=== PATIENT | male | born 1980 | race Caucasian/White ===

== ENCOUNTER 2023-09-07 01:34 | Emergency (ER) | payer OTHER, SELFPAY ==
[2023-09-07 01:37] VITALS: BP 154/110; PULSE 100; RESP 16; TEMP 38.2; O2SAT 100
--- NOTE | 2023-09-07 01:47 | PC.NURSE ---
Pt presents to ER for HTN Pt states he had a surgery last Tuesday after a heart attack which he referred to as the maker Pt states he has been feeling fuzzy and since taking his BP at home and finding the diastolic number low, pt wants to be seen to make sure everything is okay Pt had the surgery done at [facility] Pt is febrile on triage
--- NOTE | 2023-09-07 02:03 | ED.GENADUL1 ---
HPI - General Adult General Chief complaint: Chest Pain Stated complaint: hypertension Time Seen by Provider: 09/07/23 01:59 Source: patient Mode of arrival: walk-in Limitations: no limitations History of Present Illness HPI narrative: past history of HTN. states admitted to [facility] last week for MD. Stent placed. Discharged home 08/31. Has history of chronic back pain and has nerve stimulator in place. [place] well today until tonight. Developed sensation of chills and noticed his BP was elevated. Wanted to get checked out and came in. No chest pain Related Data Home Medications Medication Instructions Recorded Confirmed aspirin 81 mg tablet,delayed mg 09/07/23 release atorvastatin 80 mg tablet mg 09/07/23 carvedilol 3.125 mg tablet mg 09/07/23 cyclobenzaprine 10 mg tablet mg 09/07/23 furosemide 20 mg tablet mg 09/07/23 gabapentin 300 mg capsule mg 09/07/23 losartan 50 mg tablet mg 09/07/23 oxycodone-acetaminophen 5 mg-325 tab 09/07/23 mg tablet ticagrelor 90 mg tablet (Brilinta) mg 09/07/23 Allergies Allergy/AdvReac Type Severity Reaction Status Date / Time No Known Drug Allergies Allergy Verified 09/07/23 01:43 Review of Systems ROS Status of ROS 10 or more systems reviewed and unremarkable except as noted in history and below Constitutional Reports: chills PFSH PFSH Social History Smoking status: Current every day smoker Exam Constitutional Vital Signs, click to edit/add: Last Vital Signs Temp 100.8 F H 09/07/23 01:37 Pulse 100 H 09/07/23 01:37 Resp 16 09/07/23 01:37 BP 154/110 H 09/07/23 01:37 Pulse Ox 100 09/07/23 01:37 O2 Del Method Room Air 09/07/23 01:37 Common normals: no apparent distress, average body habitus, oriented x3, no limitations, healthy appearing, alert and well nourished Eye Common normals: EOMs intact bilaterally and conjunctivae normal Respiratory Common normals: normal respiratory effort, no retractions, no use of accessory muscles and clear to auscultation bilaterally Cardio Common normals: regular rate, regular rhythm, S1 normal heart sound and S2 normal heart sound GI Common normals: Normal to inspection, nondistended, normoactive bowel sounds present, soft to palpation and non-tender Extremity Common normals: no joint enlargement Neuro Common normals: oriented x3, CN's II-XII intact bilaterally, moves all extremities, no focal motor deficits and no sensory deficits noted Psych Appearance: grossly normal Course Vital Signs Vital signs: Vital Signs Temperature 100.8 F H 09/07/23 01:37 Pulse Rate 100 H 09/07/23 01:37 Respiratory Rate 16 09/07/23 01:37 Blood Pressure 154/110 H 09/07/23 01:37 Pulse Oximetry 100 09/07/23 01:37 Oxygen Delivery Method Room Air 09/07/23 01:37 Temperature 100.8 F H 09/07/23 01:37 Pulse Rate 100 H 09/07/23 01:37 Respiratory Rate 16 09/07/23 01:37 Blood Pressure 154/110 H 09/07/23 01:37 Pulse Oximetry 100 09/07/23 01:37 Oxygen Delivery Method Room Air 09/07/23 01:37 Medical Decision Making MDM Narrative Medical decision making narrative: patient s/p STEMI last week s/p stent placement. doing well but tonight developed chills and fever workup initiated to include cxray, UA and labs. Troponin return elevated as expected. Plan was to repeat troponin to document that it was trending down. Additional labs were pending including UA. Cxray was clear. Patient became inpatient and when nursing went in the room to swab him for possible viral illness he was ready to leave and signed out AMA. [place] he was waiting too long. Patient left before I was able to talk to him Lab Data Labs: Lab Results 09/07/23 Range/Units 02:05 WBC 8.6 (4.0-11.0) 10^3/uL RBC 5.03 (4.70-6.10) 10^6/uL Hgb 14.3 (14.0-18.0) g/dL Hct 43.8 (42.0-54.0) % MCV 87.1 (80.0-94.0) fL MCH 28.4 (25.9-34.0) pg MCHC 32.6 (29.9-35.2) g/dL RDW 14.2 (11.0-15.0) % Plt Count 293 (150-450) 10^3/uL MPV 9.8 (9.5-13.5) fL Neut % (Auto) 78.8 H (43.0-75.0) % Lymph % (Auto) 12.9 L (20.5-60.0) % [place] % (Auto) 4.9 (1.7-12.0) % Eos % (Auto) 2.0 (0.9-7.0) % Baso % (Auto) 1.2 (0.2-2.0) % Neut # (Auto) 6.7 H (1.4-6.5) 10^3/uL Lymph # (Auto) 1.1 L (1.2-3.8) 10^3/uL [place] # (Auto) 0.4 (0.3-0.8) 10^3/uL Eos # (Auto) 0.2 (0.0-0.7) 10^3/uL Baso # (Auto) 0.1 (0.0-0.1) 10^3/uL Abs Immat Gran (auto) 0.02 (0.00-0.03) 10^3/uL Imm/Tot Granulo (auto) 0.2 (0.0-0.5) % Sodium 138 (136-145) mmol/L Potassium 3.9 (3.5-5.1) mmol/L Chloride 98 (98-107) mmol/L Carbon Dioxide 29.6 (21.0-32.0) mmol/L Anion Gap 14.3 BUN 15.0 (7.0-18.0) mg/dL Creatinine 1.31 H (0.70-1.30) mg/dL Est GFR ( Amer) >60 (>=60) Est GFR (Non-Af Amer) 59 L (>=60) BUN/Creatinine Ratio 11.5 Glucose 89 (74-106) mg/dL Calcium 9.3 (8.5-10.1) mg/dL Troponin I High Sens 301.6 H* (4.0-76.1) pg/mL Imaging Data Chest x-ray: Radiologist's impression: Date: 09/07/2023 02:20 Report Date: 09/07/2023 02:45 At the request of: EMBER ZAVALA Procedure: XR chest 2V EXAM: XR chest 2V HISTORY: chills COMPARISON: None. TECHNIQUE: 2 views of the chest were obtained. FINDINGS: Spinal neurostimulator leads overlie the mid thoracic spine. The cardiac silhouette is normal in size. The lungs are clear. There is no significant pneumothorax or pleural effusion. No acute osseous abnormality is seen. IMPRESSION: 1. No acute cardiopulmonary abnormality. Electronically authenticated by: Mely LOPEZ Date: 09/07/2023 02:45 Discharge Plan Discharge Chief Complaint: Chest Pain Clinical Impression: Fever Patient Disposition: Left Against Medical Advice Prescriptions / Home Meds: No Action losartan 50 mg tablet cyclobenzaprine 10 mg tablet atorvastatin 80 mg tablet aspirin 81 mg tablet,delayed release (DR/EC) carvedilol 3.125 mg tablet oxycodone-acetaminophen 5-325 mg tablet gabapentin 300 mg capsule furosemide 20 mg tablet Brilinta 90 mg tablet Stand Alone Forms: Portal Instructions Referrals: Physician,Non-Staff, MD [Primary Care Provider] - 1 week Discharge Date/Time: 09/07/23 03:52
--- NOTE | 2023-09-07 02:06 | XR_ITS ---
The [address] [address] Patient Name: DENISE ZELAYA MRN: [id number] date: 1980 Sex: M Assigned Patient Location: ER Current Patient Location: ER Accession/Order Number: [id number] Exam Date: 09/07/2023 02:20 Report Date: 09/07/2023 02:45 At the request of: EMBER ZAVALA Procedure: XR chest 2V EXAM: XR chest 2V HISTORY: chills COMPARISON: None. TECHNIQUE: 2 views of the chest were obtained. FINDINGS: Spinal neurostimulator leads overlie the mid thoracic spine. The cardiac silhouette is normal in size. The lungs are clear. There is no significant pneumothorax or pleural effusion. No acute osseous abnormality is seen. XR/XR chest 2V IMPRESSION: 1. No acute cardiopulmonary abnormality. Electronically authenticated by: Mely LOPEZ Date: 09/07/2023 02:45
--- NOTE | 2023-09-07 02:06 | ECG_ITS ---
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
[2023-09-07 02:18] LABS: Basophils Absolute Auto 0.1 10^3/uL (0.0-0.1); Basophils Percent Auto 1.2 % (0.2-2.0); Eosinophils Absolute Auto 0.2 10^3/uL (0.0-0.7); Hematocrit 43.8 % (42.0-54.0); Hemoglobin 14.3 g/dL (14.0-18.0); Immature Granulocytes Abs Auto 0.02 10^3/uL (0.00-0.03); Immature Granulocytes Pct Auto 0.2 % (0.0-0.5); Lymphocytes Absolute Auto 1.1 10^3/uL (1.2-3.8); Lymphocytes Percent Auto 12.9 % (20.5-60.0); Mean Corpuscular HGB Conc 32.6 g/dL (29.9-35.2); Mean Corpuscular Hemoglobin 28.4 pg (25.9-34.0); Mean Corpuscular Volume 87.1 fL (80.0-94.0); Mean Platelet Volume 9.8 fL (9.5-13.5); Monocytes Absolute Auto 0.4 10^3/uL (0.3-0.8); Monocytes Percent Auto 4.9 % (1.7-12.0); Neutrophils Absolute Auto 6.7 10^3/uL (1.4-6.5); Neutrophils Percent Auto 78.8 % (43.0-75.0); Platelet Count 293 10^3/uL (150-450); Red Blood Count 5.03 10^6/uL (4.70-6.10); Red Cell Distribution Width 14.2 % (11.0-15.0); White Blood Count 8.6 10^3/uL (4.0-11.0)
--- NOTE | 2023-09-07 02:19 | PC.NURSE ---
Patient states that he was having chest pains at home last Tuesday and called EMS. He was taken to [facility], told he was having an [place], that it was a maker. He was taken to surgery for a stent. He was discharged from the hospital on Tuesday. He started feeling unwell at home today, weak, and cold. He was also hypertensive at home. On arrival, he is febrile and hypertensive. EKG is done and handed off to Dr Ochoa. [facility] is contacted and asked to send a copy of the EKG from their facility also.
[2023-09-07 02:37] LABS: Anion Gap 14.3; BUN Creatinine Ratio 11.5; Calcium 9.3 mg/dL (8.5-10.1); Carbon Dioxide 29.6 mmol/L (21.0-32.0); Chloride 98 mmol/L (98-107); Estimated GFR (African America >60 (>=60); Estimated GFR (Non-African Ame 59 (>=60); Glucose 89 mg/dL (74-106); Potassium 3.9 mmol/L (3.5-5.1); Sodium 138 mmol/L (136-145)
[2023-09-07 02:44] LABS: Troponin I High Sensitivity 301.6 pg/mL (4.0-76.1)
== END 2023-09-07 03:52 | disposition left against medical advice (07) ==
PROVIDERS: Emergency Provider Internal Medicine; Family Provider Internal Medicine
DX: R50.9 Fever, unspecified (principal); I21.4 Non-ST elevation (NSTEMI) myocardial infarction; I10 Essential (primary) hypertension; Z95.5 Presence of coronary angioplasty implant and graft; Z53.29 Procedure and treatment not carried out because of patient's decision for other reasons; Z79.82 Long term (current) use of aspirin; Z79.899 Other long term (current) drug therapy; F17.210 Nicotine dependence, cigarettes, uncomplicated
CPT/HCPCS: 0202U; 36415; 71046; 80048; 84484; 85025; 93005; 99285

== ENCOUNTER 2024-05-18 16:33 | Outpatient (OUT) | payer OTHER, SELFPAY ==
--- OUTSIDE RECORDS SUMMARY | 2024-05-18 16:45 | XMS_ITS | CCD ---
Author Organization [facility] Care Team Providers Care Welt Cutter Name Role Phone LAUREL LOERA) Admitting Un available LUZ MARIALAUREL THOMPSON () Attending Un available LAUREL LOERA () Referring Un available EVNATALI BECERRA (PA) Attending Unavaila KATIE Ye Referring Unavailab le NATALI SCHNEIDER (PA) Referring Unavaila ble NATALI SCHNEIDER (PA) Referring Unavaila ble NATALI SCHNEIDER (PA) Attending Unavaila ble NATALI SCHNEIDER (PA) Referring Unavaila ble KARISSA NOGUERA Admitting Unavailable KARISSA NOGUERA Attending Unavailable KARISSA NOGUERA Referring Unavailable NATALI SCHNEIDER (PA) Attending Unavaila LAUREL Zamudio) Attending Un available NATALI SCHNEIDER (ALBERTO) Referring Unavaila ble LAUREL LOERA) Referring Un available LUZ MARIALAUREL THOMPSON) Referring Un available LUZ MARIALAUREL THOMPSON) Referring Un available LUZ MARIALAUREL THOMPSON) Attending Un available LAUREL LOERA) Referring Un available LAUREL LOERA () Attending Un available LAUREL LOERA) Referring Un available KATIE SALGUERO Primary Care Physician Shaquille Remy Unavailable DO Katie Salguero Primary Care Provider MD Shaquille Remy Attending Provider [facility]ovany Valle [facility] Primary Care Unavailable ELISHA ., DR CHAUDHRY Admitting Unavailable ELISHA ., DR CHAUDHRY Attending Unavailable ELISHA ., DR CHAUDHRY Consulting Unavailable VASCARO, DR WILSON Consulting Unavailable Vascaro, Dr. Katie Vera Primary Care Thien Roberson Attending Thien Roberson Attending Thien Roberson Referring Thien Roberson Admitting Unava iljs Salguero, Dr. Katie Vera Primary Care Thien Roberson Admitting Thien Roberson Attending Thien Roberson Referring Unava ilable Judithk, Dr. Katie Vera [facility] Care Thien Roberson Attending Jared Salguero, Dr. Katie Vera [facility] Katie Basilio [facility] Care Unavailable Shaquille Remy Attending Unavailable Shaquille Remy Admitting Unavailable Katie Salguero [facility] Unavailable Shaquille Remy Attending Unavailable Shaquille Remy Admitting Unavailable DO Katie Salguero [facility] Provider [phone] MD Shaquille Remy Attending Provider KATIE SALGUERO Attending Unavailable KATIE SALGUERO Referring Unavailable MABLE STEWARD Referring Unava ilable KATIE SALGUERO Attending Unavailable KATIE SALGUERO Referring Unavailable ROZ, YUERONG Referring Unavailable ROZ, YUANTNG Referring Unavailable ROZTATYANANG Attending Unavailable KATIE SALGUERO Referring Unavailable KATIE SALGUERO Attending Unavailable KATIE SALGUERO Referring Unavailable KARISSA CAMPBELL Attending Unavailable ROZ, YUANTNG Referring Unavailable VASKATIE MIRANDA Attending Unavailable MABLE STEWARD Attending UnaMD Trey Cheatham Attending Unavailable Denise Welch Attending Unavaila ble NONE, XXXX Referring Unavailable Denise Welch Attending Unavaila ble NONE, XXXX Referring Unavailable Durga Thompson Admitting Unavailable Durga Thompson Attending Unavailable Frank SERRANO Consulting Unavailable Frank SERRANO Consulting Unavailable Frank SERRANO Consulting Unavailable Dora RHODES Admitting Unavailable [facility]io, XXXX Consulting Unavailable Durga Thompson Attending Unavailable Frank SERRANO Consulting Unavailable Frank SERRANO Consulting Unavailable Frank SERRANO Consulting Unavailable Ezequiel Vogel Attending Unavailable SHAQUILLE REMY Referring Unavailable Abhi Guerra Attending Unavailable NONE, XXXX Referring Unavailable RAQUELCARLOS WINNAMAD Referring Unavailable ISADORA TOWNSEND Attending Unavailable ISADORA TOWNSEND Attending Unavailable Allergies Allergy Classification Reported Allergen(s) Allergy Type Date of Onset Reaction(s) Facility (20 sources) montelukast Drug Allergy 2 nightmares, Nightmare [facility] (1 source) montelukast Drug Allergy 2 [facility] Repository (1 source[facility] ([facility]) No Known Medication Allergies; Translations: [No Known Medication Allergies] Propensity to adverse reactions (disorder) [facility] Repository Medications Current Medications Medication Drug Class(es) Dates Sig (Normalized) Sig (Original) acetaminophen 325 mg / oxyCODONE hydrochloride 5 mg oral tablet (20 sources) Opioid Agonist Start: 04-18-2024 take 1 tablet by mouth three times daily Oxycodone-Acetami nophen Active 1 TAB PO Three times daily April 18, 2024 Start: 03-09-2022 take 1 tablet by aziza th three times daily as needed Percocet 325 mg-5 mg Tab TAKE 1 TABLET BY MOUTH NEEDED UP TO 3 TIMES DAILY Start Date: 03/09/22 Status: Ordered Start: 02-11-2022 Percocet 5 mg- 325 mg oral tablet Refill(s) 0 Start Date: 02/11/22 Status: Ordered Start: 10-30-2019 End: 04-18-2024 take 1 tablet by mouth three times daily Oxycodone-Acetaminophen Discontinued 1 TAB PO Three times daily March 21, 2024 April 18, 2024 11:40am Albuterol (8 sources) beta2-Adrenergic Agonist Start: 02-11-2022 albut mercedes Refills(s) 0 Start Date: 02/11/22 Status: Ordered amitriptyline hydrochloride 10 mg oral tablet (20 sources) Tricyclic Antidepressant Start: 05-10-2024 amitr iptyline 10 mg Tab Refills(s) 0 Start Date: 05/10/24 Status: Ordered Start: 02-11-2022 amitriptyline Refills(s) 0 Start Date: 02/11/22 Status: Ordered Start: 07-24-2020 take 10 mg by mouth once daily Amitriptyline Active 10 MG PO Daily July 24, 2020 12:00am Start: 06-28-2017 take 25 mg by mouth once daily Amitriptyline Active 25 MG PO Daily June 28, 2017 12:00am aspirin 81 mg delayed release oral tablet (6 sources) Platelet Aggregation Inhibitor, Nonsteroidal Anti-inflammatory Drug Start: 08-31-2023 take 1 tablet by mouth once daily aspirin 81 mg Oral EC Tab 81 mg = 1 tab(s), Oral, Daily, # 30 tab(s), Refills(s) 0, Pharmacy: [facility]/pharmacy #[id number], 175, cm, 09/29/23 15:16:00 EST, Height/Length Dosing, 73.7, kg, 09/29/23 15:16:00 EST, Weight Dosing Start Date: 09/30/23 Status: Ordered atenolol 100 mg oral tablet (5 sources) beta-Adrenergic Alfonzo Start: 02-11-2022 take 1 tablet by mouth once daily atenolol 100 mg Tab 100 mg = 1 tab(s), Oral, Daily Start Date: 02/11/22 Status: Ordered atorvastatin 80 mg oral tablet (6 sources) HMG-CoA Reductase Inhibitor Start: 11-11-2023 take 1 tablet by mouth once daily atorvastatin 80 mg Tab 80 mg = 1 tab(s), Oral, Daily, # 30 tab(s), Refills(s) 6, Pharmacy: [facility]/pharmacy #[id number], 175, cm, 09/29/23 15:16:00 EST, Height/Length Dosing, 73.7, kg, 09/29/23 15:16:00 EST, Weight Dosing Start Date: 11/11/23 Status: Ordered Start: 08-31-2023 take 1 tablet by aziza th once daily atorvastatin 80 mg Tab 80 mg = 1 tab(s), Oral, Daily, # 30 tab(s), Refills(s) 0, Pharmacy: [facility]/pharmacy #[id number], 175, cm, 08/29/23 16:51:00 EST, Height/Length Dosing, 83.7, kg, 08/29/23 16:51:00 EST, Weight Dosing Start Date: 08/31/23 Status: Ordered carvedilol 6.25 mg oral tablet (10 sources) alpha-Adrenergic Alfonzo, beta-Adrenergic Alfonzo Start: 09-29-2023 take 1 tablet by mouth twice daily carvedilol 6.25 mg Tab 6.25 mg = 1 tab(s), Oral, BID, # 60 tab(s), Refills(s) 6, [id number], cm, 09/29/23 15:16:00 EST, Height/Length Dosing, 73.7, kg, 09/29/23 15:16:00 EST, Weight Dosing Start Date: 11/11/23 Status: Ordered Start: 08-31-2023 take 1 tablet by aziza twice daily carvedilol 3.125 mg Tab 3.125 mg = 1 tab(s), Oral, BID, # 60 tab(s), Refills(s) 0, [id number] 175, cm, 08/29/23 16:51:00 EST, Height/Length Dosing, 83.7, kg, 08/29/23 16:51:00 EST, Weight Dosing Start Date: 08/31/23 Status: Ordered cloNIDine hydrochloride 0.1 mg oral tablet (5 sources) Central alpha-2 Adrenergic Agonist Start: 03-09-2022 take 1 tablet by mouth twice daily cloNIDine 0.1 mg tab TAKE 1 TABLET BY MOUTH TWICE A DAY Start Date: 03/09/22 Status: Ordered Start: 02-11-2022 take 1 tablet by aziza twice daily cloNIDine 0.1 mg tab 0.1 mg = 1 tab(s), Oral, BID Start Date: 02/11/22 Status: Ordered clopidogrel 75 mg oral tablet (2 sources) [id number] Platelet Inhibitor Start: 12-14-2023 take 1 tablet by mouth once daily clopidogrel 75 mg Tab 75 mg = 1 tab(s), Oral, Daily, # 30 tab(s), Refills(s) 3, Pharmacy: [id number], 175, cm, 12/09/23 1:00:00 EST, Height/Length Dosing, 75.7, kg, 12/09/23 1:00:00 EST, Weight Dosing Start Date: 12/14/23 Status: Ordered cyclobenzaprine hydrochloride 10 mg oral tablet (20 sources) Muscle Relaxant Start: 03-09-2022 cyclobenzaprine 10 mg Tab See Instructions, 1 tab(s) Oral, # 30 tab(s), Refills(s) 0, [id number] 175, cm, 09/29/23 15:16:00 EST, Height/Length Dosing, 73.7, kg, 09/29/23 15:16:00 EST, Weight Dosing Start Date: 09/30/23 Status: Ordered Start: 07-24-2020 End: 04-20-2021 take 10 mg by mouth three times daily Cyclobenzaprine Discontinued 10 MG PO Three times daily July 24, 2020 12:00am April 20, 2021 1:56pm furosemide 20 mg oral tablet (6 sources) Loop Diuretic Start: 11-11-2023 take 1 tablet by mouth once daily Lasix 20 mg Tab 20 mg = 1 tab(s), Oral, Daily, # 30 tab(s), Refills(s) 6, [id number] 175, cm, 09/29/23 15:16:00 EST, Height/Length Dosing, 73.7, kg, 09/29/23 15:16:00 EST, Weight Dosing Start Date: 11/11/23 Status: Ordered Start: 08-31-2023 take 1 tablet by aziza th once daily Lasix 20 mg Tab 20 mg = 1 tab(s), Oral, Daily, # 30 tab(s), Refills(s) 0, [id number] 175, cm, 08/29/23 16:51:00 EST, Height/Length Dosing, 83.7, kg, 08/29/23 16:51:00 EST, Weight Dosing Start Date: 08/31/23 Status: Ordered gabapentin 300 mg oral capsule (20 sources) Anti-epileptic Agent Start: 03-09-2022 take 3 capsules by mouth three times daily gabapentin 300 mg Cap TAKE 3 CAPSULES BY MOUTH 3 TIMES A DAY Start Date: 03/09/22 Status: Ordered Start: 02-11-2022 gabapentin Ref ills(s) 0 Start Date: 02/11/22 Status: Ordered Start: 06-28-2017 take 900 mg by mouth three times daily Gabapentin Active 900 MG PO Three times daily June 28, 2017 12:00am take 3 capsules by m outh three times daily Gabapentin 300 MG TAKE 3 CAPSULES BY MOUTH 3 TIMES DAILY for 30 Active take 1 tablet by aziza th three times daily Gabapentin 900 mg 1 tablet Orally Three times a day for 30 days Active 24 hr isosorbide mononitrate 30 mg extended release oral tablet (5 sources) Nitrate Vasodilator Start: 09-29-2023 take 1 tablet by mouth once daily in the morning isosorbide mononitrate 30 mg ER Tab 30 mg = 1 tab(s), Oral, qAM, # 30 tab(s), Refills(s) 3, Pharmacy: [facility]/pharmacy #[id number], 175, cm, 09/29/23 15:16:00 EST, Height/Length Dosing, 73.7, kg, 09/29/23 15:16:00 EST, Weight Dosing Start Date: 09/29/23 Status: Ordered lisinopril 10 mg oral tablet (20 sources) Angiotensin Converting Enzyme Inhibitor Start: 02-11-2022 take 1 tablet by mouth once daily lisinopril 10 mg Tab TAKE 1 TABLET BY MOUTH EVERY DAY FOR 90 DAYS Start Date: 03/09/22 Status: Ordered losartan potassium 25 mg oral tablet (6 sources) Angiotensin 2 Receptor Alfonzo Start: 12-09-2023 take 1 tablet by mouth twice daily losartan 25 mg Tab 25 mg = 1 tab(s), Oral, BID, # 60 tab(s), Refills(s) 0, Pharmacy: [facility]/pharmacy #[id number], 175, cm, 12/09/23 1:00:00 EST, Height/Length Dosing, 75.7, kg, 12/09/23 1:00:00 EST, Weight Dosing Start Date: 12/09/23 Status: Ordered Start: 11-11-2023 losartan 50 mg Tab 25 mg = 0.5 tab(s), Oral, Daily, # 15 tab(s), Refills(s) 6, Pharmacy: [facility]/pharmacy #[id number], 175, cm, 09/29/23 15:16:00 EST, Height/Length Dosing, 73.7, kg, 09/29/23 15:16:00 EST, Weight Dosing Start Date: 11/11/23 Status: Ordered Start: 08-31-2023 losartan 50 mg Tab 25 mg = 0.5 tab(s), Oral, Daily, # 30 tab(s), Refills(s) 0, Pharmacy: [facility]/pharmacy #[id number], 175, cm, 08/29/23 16:51:00 EST, Height/Length Dosing, 83.7, kg, 08/29/23 16:51:00 EST, Weight Dosing Start Date: 08/31/23 Status: Ordered nitroglycerin 0.4 mg sublingual tablet (1 source) Nitrate Vasodilator Start: 05-10-2024 nitroglycerin 0.4 mg sublingual Tab Refills(s) 0 Start Date: 05/10/24 Status: Ordered 12 hr ranolazine 500 mg extended release oral tablet (5 sources) Anti-anginal Start: 09-29-2023 take 1 tablet by mouth twice daily Ranexa 500 mg Tab-ER 500 mg = 1 tab(s), Oral, BID, # 60 tab(s), Refills(s) 3, Pharmacy: [facility]/pharmacy #[id number], 175, cm, 09/29/23 15:16:00 EST, Height/Length Dosing, 73.7, kg, 09/29/23 15:16:00 EST, Weight Dosing Start Date: 09/29/23 Status: Ordered rosuvastatin calcium 20 mg oral tablet (4 sources) HMG-CoA Reductase Inhibitor Start: 03-09-2022 take 1 tablet by mouth once daily rosuvastatin 20 mg Tab TAKE 1 TABLET BY MOUTH EVERY DAY FOR 30 DAYS Start Date: 03/09/22 Status: Ordered ticagrelor 90 mg oral tablet (4 sources) Start: 11-11-2023 take 1 tablet by mouth twice daily ticagrelor 90 mg oral tablet 90 mg = 1 tab(s), Oral, BID, # 60 tab(s), Refills(s) 6, Pharmacy: [facility]/pharmacy #[id number], 175, cm, 09/29/23 15:16:00 EST, Height/Length Dosing, 73.7, kg, 09/29/23 15:16:00 EST, Weight Dosing Start Date: 11/11/23 Status: Ordered Start: 08-31-2023 take 1 tablet by aziza th twice daily ticagrelor 90 mg oral tablet 90 mg = 1 tab(s), Oral, BID, # 60 tab(s), Refills(s) 0, Pharmacy: [facility]/pharmacy #[id number], 175, cm, 08/29/23 16:51:00 EST, Height/Length Dosing, 83.7, kg, 08/29/23 16:51:00 EST, Weight Dosing Start Date: 08/31/23 Status: Ordered tiZANidine 4 mg oral tablet (20 sources) Central alpha-2 Adrenergic Agonist Start: 07-24-2020 take 4 mg by mouth twice daily Tizanidine Active 4 MG PO Twice daily July 24, 2020 12:00am work excuse (6 sources) Start: 08-31-2023 work excuse wo rk excuse, 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, Print Requisition, Supply Start Date: 08/31/23 Status: Ordered Completed/Discontinued Medications Medication Drug Class(es) Dates Sig (Normalized) Sig (Original) DULoxetine 30 mg delayed release oral capsule (1 source) Serotonin and Norepinephrine Reuptake Inhibitor Start: 05-10-2024 End: 08-08-2024 take 2 tablets by mouth once daily duloxetine 30 mg oral delayed release capsule 60 mg = 2 cap(s), Oral, Daily, take one tablet in the am for the first week then take 2 tablets ongoing, X 30 day(s), # 60 cap(s), Refills(s) 2, Pharmacy: [id number], 175.3, cm, 05/10/24 13:57:00 EDT, Height/Length Dosing, 77.5, kg, 05/10/24 13:57:00 EDT, Weight Dosing Start Date: 05/10/24 Stop Date: 08/08/24 Status: Ordered methylPREDNISolone (20 sources) Corticosteroid Start: 09-28-2017 Depo-Medrol 40 mg Sep, Start: 08-05-2015 Depo-Medrol 80 mg Jul, Start: 06-12-2015 Depo-Medrol 80 mg Jun, 80 mg Start: 04-22-2015 Depo-Medrol 80 mg Apr, 80 mg Start: 01-15-2015 Depo-Medrol 80 mg Jan, 80 mg Triamcinolone (20 sources) Corticosteroid Start: 05-12-2016 Kenalog -40 mg May, 40 mg Problems Active Problems Problem Classification Problem Date Documented Da te Episodic/Chronic Acute myocardial infarction (4 sources) ST elevation (STEMI) myocardial infarction of unspecified site; Translations: [Myocardial infarction] Onset: 08-29-2023 Chronic Anxiety disorders (20 sources) Generalized anxiety disorder; Translations: [Generalized anxiety disorder] Chronic Asthma (20 sources) Exacerbation of asthma; Translations: [Unspecified asthma with (acute) exacerbation] Onset: 01-25-2023 Chronic Calculus of urinary tract (20 sources) Kidney stone; Translations: [Calculus of kidney] Onset: 01-19-2023 Episodic Complication of device; implant or graft (2 sources) Pain due to nervous system prosthetic devices, implants and grafts, initial encounter; Translations: [Pain due to nervous system prosth dev/grft, init] Onset: 01-19-2023 Episodic Complications of surgical procedures or medical care (5 sources) Infection following a procedure, subsequent encounter; Translations: [Disruption of external operation (surgical) wound, not elsewhere classified, initial encounter] Onset: 01-17-2018 Episodic Congestive heart failure; nonhypertensive (3 sources) Congestive heart failure 12-09-2023 Chronic Coronary atherosclerosis and other heart disease (4 sources) Coronary atherosclerosis; Translations: [Atherosclerotic heart disease of tejon coronary artery without angina pectoris] Onset: 12-09-2023 Chronic Disorders of lipid metabolism (20 sources) Hyperlipidemia; Translations: [Hyperlipidemia, unspecified] Onset: 08-29-2023 Chronic Essential hypertension (6 sources) Essential (primary) hypertension; Translations: [Essential hypertension] Onset: 06-08-2018 Chronic Headache; including migraine (20 sources) Migraine; Translations: [Other migraine, not intractable, without status migrainosus] Chronic Hypertension with complications and secondary hypertension (4 sources) Hypertensive emergency; Translations: [Hypertensive emergency] Onset: 12-09-2023 Chronic Mood disorders (20 sources) Mild recurrent major depression; Translations: [Major depressive disorder, recurrent episode, mild] Chronic Nonspecific chest pain (3 sources) Chest pain; Translations: [Chest pain, unspecified] Onset: 12-09-2023 Episodic Nutritional deficiencies (20 sources) Vitamin D deficiency; Translations: [Vitamin D deficiency, unspecified] Chronic Osteoarthritis (1 source) Unspecified osteoarthritis, unspecified site; Translations: [Unspecified osteoarthritis, unspecified site] Onset: 01-25-2023 Chronic Other aftercare (2 sources) Other intermediate (current) drug therapy; Translations: [OTH LONG-TERM CURRENT DRUG THERAPY] Onset: 12-29-2022 Episodic Other aftercare (1 source) Long-term current use of drug therapy; Translations: [Other intermediate (current) drug therapy] Onset: 12-09-2023 Episodic Other connective tissue disease (20 sources) History of lumbar fusion; Translations: [Arthrodesis status] Episodic Other connective tissue disease (1 source) Arthrodesis status Episodic Other lower respiratory disease (2 sources) Other forms of dyspnea; Translations: [Other forms of dyspnea] Onset: 04-25-2024 Episodic Other nervous system disorders (20 sources) Chronic pain; Translations: [Other chronic pain] Onset: 08-29-2023 Chronic Other nervous system disorders (20 sources) Other chronic pain; Translations: [Other chronic pain] Onset: 07-16-2021 Resolved: 06-10-2022 Chronic Other nervous system disorders (1 source) Chronic pain syndrome; Translations: [Chronic pain syndrome] Onset: 12-14-2022 Chronic Other nervous system disorders (1 source) Other chronic pain; Translations: [Other chronic pain] Onset: 08-17-2022 Chronic Other nervous system disorders (1 source) Polyneuropathy; Translations: [Polyneuropathy, unspecified] Onset: 08-29-2023 Chronic Other non-traumatic joint disorders (20 sources) Knee pain; Translations: [Pain in left knee] Episodic Other upper respiratory disease (20 sources) Allergic rhinitis; Translations: [Allergic rhinitis, unspecified] Chronic Other upper respiratory infections (20 sources) Sinusitis; Translations: [Chronic sinusitis, unspecified] Chronic Residual codes; unclassified (2 sources) Tobacco use; Translations: [Tobacco use] Onset: 06-08-2018 Episodic Residual codes; unclassified (20 sources) Postprocedural state finding; Translations: [Other specified postprocedural states] Episodic Residual codes; unclassified (1 source) Tobacco user; Translations: [Tobacco use] Onset: 08-29-2023 Episodic Spondylosis; intervertebral disc disorders; other back problems (20 sources) Other intervertebral disc displacement, lumbar region; Translations: [Other intervertebral disc degeneration, lumbar region] Onset: 02-21-2018 Resolved: 06-10-2022 Chronic Spondylosis; intervertebral disc disorders; other back problems (20 sources) Radiculopathy, lumbar region; Translations: [Low back pain] Onset: 01-17-2018 Episodic Substance-related disorders (20 sources) Smoker; Translations: [Tobacco dependence syndrome] Onset: 12-29-2022 03-09-2022 Chronic Comment on above: Added secondary to d ocumentation in Social History. Added secondary to d ocumentation in Social History. Substance-related disorders (20 sources) Continuous opioid dependence; Translations: [Opioid use, unspecified, uncomplicated] Onset: 07-16-2021 Resolved: 06-10-2022 Episodic Unclassified (1 source) lumbar radicupathy Onset: 02-21-2018 Past or Other Problems Problem Classification Problem Date Documented Date Episodic/Chronic Other nervous system disorders (1 source) Other abnormalities of gait and mobility; Translations: [Other abnormalities of gait and mobility] Onset: 01-17-2018 Episodic Unclassified (1 source) Other low back pain M54.59 Onset: 01-15-2022 Resolved: 01-15-2022 Unclassified (3 sources) Stent, device (physical object) 12-09-2023 Results Test Name Value Interpretation Reference Range Facility Office Visiton 05-04-2024 Follow-up visit [id number] [place] [facility] P 1980 Date Provider Department Center 05/04/2024 ISADORA BAUMANN SP [facility] Family History Problem Relation Age of Onset Heart attack Mother 56 Heart attack Maternal Grandfather Family Status - Relation Status Age at Mother Maternal Grandfather Level of Service:41889 [place] OFFICE/OUTPATIENT ESTABLISHED MOD MDM 30 MIN [facility] Orders Onlyon 05-04-2024 Orders Only [id number] [place] Lantigua P 1980 Date Provider Department Center 05/04/2024 JAVIER SANDERS SP [facility] Family History Problem Relation Age of Onset Heart attack Mother 56 Heart attack Maternal Grandfather Family Status - Relation Status Age at Mother Maternal Grandfather Normal [facility] Office Visiton 04-06-2024 Follow-up visit [id number] [place] Lantigua P 1980 [facility] Provider Department Center 04/06/2024 3848-ISADORA TOWNSEND BH CARD [facility] Family History Problem Relation Age of Onset Heart attack Mother 56 Heart attack Maternal Grandfather Family Status - Relation Status Age at Mother Maternal Grandfather Level of Service:94733 [place] OFFICE/OUTPATIENT NEW MODERATE MDM 45 MINUTES Normal [facility] Referrals Officeon 4 Referrals Office [id number] [phone] [id number] TIFF Normal [facility] MR THORACIC SPINE WO CONTRAS Ton 01-24-2024 MR THORACIC SPINE WO CONTRAST EXAMINATION: MR THORACIC SPINE WO CONTRAST HISTORY: Neck pain radiating into the left arm. Left axilla pain/burning. COMPARISON: Chest radiograph February 25, 2022 TECHNIQUE: Multiplanar multisequence MRI of the thoracic spine was performed Without contrast. FINDINGS: The thoracic spinal cord is normal in signal and morphology. No focal cord signal abnormality. The spinal cord stimulator is present. The alignment of the thoracic spine is anatomic. The vertebral body heights are well maintained. No aggressive bone marrow signal abnormality. No significant disc bulge, spinal canal stenosis or neuroforaminal stenosis. Visualized paravertebral soft tissues are grossly unremarkable. IMPRESSION: No significant disc bulge. No high-grade neural foraminal or spinal canal stenosis. Normal signal and morphology of the thoracic spinal cord. ELECTRONICALLY SIGNED BY: Katie John, DO Normal Not Available MR CERVICAL SPINE WO CONTRAS Ton 2024 MR CERVICAL SPINE WO CONTRAST EXAM: MR CERVICAL SPINE WO CONTRAST History: Neck pain with radiculopathy Technique: Multiplanar multisequence MRI of the cervical spine was performed without contrast. Comparison: Cervical spine radiographs December 14, 2023 Findings: Craniocervical junction is within normal limits. No cervical cord signal abnormality is identified. No aggressive bone marrow signal abnormality. Straightening of the cervical lordosis. Mild intervertebral disc height loss at C5-6. C2-C3: No significant disc bulge, spinal canal or neuroforaminal stenosis. C3-C4: Small disc bulge. Mild right neural foraminal stenosis. No spinal canal stenosis. C4-C5: Small disc bulge with tiny superimposed central disc protrusion. No neural foraminal or spinal canal stenosis. C5-C6: Small disc bulge. Significant bilateral uncovertebral hypertrophy. Mild facet arthropathy. Severe bilateral neural foraminal stenosis. No spinal canal stenosis. C6-C7: Small disc bulge. Mild uncovertebral hypertrophy. Moderate to severe bilateral neural foraminal stenosis. No spinal canal stenosis. C7-T1: No significant disc bulge, spinal canal or neuroforaminal stenosis. Visualized paravertebral soft tissues are grossly unremarkable. IMPRESSION: Degenerative changes of the cervical spine as detailed. ELECTRONICALLY SIGNED BY: Katie John, DO Normal Not Available XR CERVICAL SPINE 2-3 VIEWSo n 12-14-2023 XR CERVICAL SPINE 2-3 VIEWS XR CERVICAL SPINE 2-3 VIEWS : 12/14/2023 12:09 PM CLINICAL HISTORY: paresethesia, neck pain, shoulder pain. COMPARISON: None available. TECHNIQUE: ROUTINE FINDINGS: Straightening of the spine is seen. The vertebral body heights are maintained. Mild intervertebral disc space narrowing is seen at C5-6. The prevertebral soft tissues are unremarkable. There is no evidence for acute fracture or dislocation. IMPRESSION: STRAIGHTENING OF THE SPINE MAY REFLECT SPASM. VERY MILD DEGENERATIVE CHANGES ARE SEEN. ELECTRONICALLY SIGNED BY: Keven Puri, DO Normal Not Available Comment on above: Order Comment: With flexion and [facility] Anion gap [Moles/Vol] 12 mmol/L Normal 6-16 [facility] Comment on above: Performed By: #### 2 955763, 1270189, [id number], [id number], [id number] ####[facility] [address] [place] [address] Calcium [Mass/Vol] 9.4 mg/dL Normal 8.9-11.1 [facility] Comment on above: Performed By: #### 2 801001, 2094136, 21259565, 49380982, 53227493 ####[facility] [address] [place] [address] Chloride [Moles/Vol] 105 mmol/L Normal 101-111 [facility] Comment on above: Performed By: #### 2 343918, 0575994, 91009081, 60069113, [id number] ####[facility] [address] [place] [address] CO2 [Moles/Vol] 26 mmol/L Normal 21-31 [facility] Comment on above: Performed By: #### 2 495250, 8833941, 48546994, 42867934, 15551936 ####[facility] [address] [place] [address] Creatinine [Mass/Vol] 1.6 mg/dL High 0.5-1.3 [facility] Comment on above: Performed By: #### 2 091436, 5562124, 99972844, 51599878, 75185450 ####[facility] [address] [place] [address] Glucose [Mass/Vol] 110 mg/dL Normal 55-199 [facility] Comment on above: Performed By: #### 2 929946, 2080498, 10011820, 10528203, 35034584 ####[facility] [address] [place] [address] Potassium [Moles/Vol] 4.1 mmol/L Normal 3.5-5.3 [facility] Comment on above: Performed By: #### 2 218877, 1208688, 76009837, 40808962, 28204987 ####[facility] [address] [place] [address] Sodium [Moles/Vol] 139 mmol/L Normal 135-145 [facility] Comment on above: Performed By: #### 2 649540, 4924089, 93030931, 23691792, 54006108 ####[facility] [address] [place] [address] Urea nitrogen [Mass/Vol] 15 mg/dL Normal 5-21 [facility] Comment on above: Performed By: #### 2 802112, 1911278, 05673796, 22830156, 51627070 ####[facility] [address] [place] [address] Urea nitrogen/Creatinine [Mass ratio] 9 No Units Low 10-20 [facility] Comment on above: Performed By: #### 2 914962, 8898661, 72066962, 15216273, 38778915 ####[address] [place] [address] CBC w/ Auto Diffon 4 Basophils/100 WBC (Bld) 1.0 % Normal 0.0-2.0 [facility] Comment on above: Performed By: #### 2 682622, 8084330, 30176164, 03566176, 82706846 ####[address] [address] Basophils/Leukocytes Auto (Bld) [Pure # fraction] 0.1 E9/L Normal 0.0-0.2 [facility] Comment on above: Performed By: #### 2 277341, 2255232, 58728125, 98173559, 56016082 ####[address] [address] Eosinophils (Bld) [#/Vol] 0.6 E9/L High 0.0-0.5 [facility] Comment on above: Performed By: #### 2 843300, 3752852, 88606454, 05914812, 97703644 ####[address] [address] Eosinophils/100 WBC (Bld) 5.8 % Normal 0.0-8.0 [facility] Comment on above: Performed By: #### 2 161653, 8912400, 32351955, 20528920, 54448201 ####[address] [address] Erythrocyte distribution width (RBC) [Ratio] 16.4 % High 10.9-14.2 [facility] Comment on above: Performed By: #### 2 037742, 0885455, 20238591, 13798540, 37405580 ####[address] [address] Hematocrit (Bld) [Volume fraction] 39.8 % Normal 37.7-49.0 [facility] Comment on above: Performed By: #### 2 499815, 8143778, 59283436, 09643136, 85362323 ####[facility] [address] [place] [address] Hemoglobin (Bld) [Mass/Vol] 13.8 g/dL Normal 13.5-17.5 [facility] Comment on above: Performed By: #### 2 993017, 3512223, 01352808, 06638368, 44319963 ####[facility] [address] [place] [address] Lymphocytes (Bld) [#/Vol] 3.1 E9/L Normal 1.0-4.0 [facility] Comment on above: Performed By: #### 2 807409, 1398210, 03975111, 47591008, 52079925 ####[address] [address] Lymphocytes/100 WBC (Bld) 28.6 % Normal 14.0-50.0 [facility] Comment on above: Performed By: #### 2 292024, 0754798, 76195505, 15253994, 05200215 ####[facility] [address] [place] [address] MCH (RBC) [Entitic mass] 29.9 pg Normal 27.0-34.0 [facility] Comment on above: Performed By: #### 2 499354, 6679205, 54938945, 09232081, 94683911 ####[facility] [address] [place] [address] MCHC (RBC) [Mass/Vol] 34.7 g/dL Normal 31.4-36.0 [facility] Comment on above: Performed By: #### 2 898778, 5451019, 23661527, 25219606, 05242669 ####[address] [place] [address] MCV (RBC) [Entitic vol] 86.2 fL Normal 80.0-100.0 [facility] Comment on above: Performed By: #### 2 095493, 1007049, 07183739, 03330950, 74010119 ####[facility] [address] [place] [address] Monocytes (Bld) [#/Vol] 0.6 E9/L Normal 0.2-1.0 [facility] Comment on above: Performed By: #### 2 342514, 5526743, 88141984, 13280757, 27244642 ####[facility] [address] [place] [address] Neutrophils (Bld) [#/Vol] 6.3 E9/L Normal 2.0-7.5 [facility] Comment on above: Performed By: #### 2 575083, 2399217, 05211235, 02656255, 02627468 ####[address] [address] Neutrophils/100 WBC (Bld) 59.1 % Normal 36.0-75.0 [facility] Comment on above: Performed By: #### 2 951301, 4968019, 63739964, 51733808, 03024420 ####[facility] [address] [place] [address] Platelet mean volume (Bld) [Entitic vol] 8.2 fL Normal 6.4-10.8 [facility] Comment on above: Performed By: #### 2 252261, 2616317, 40254756, 55075903, 32517962 ####[facility] [address] [place] [address] Platelets (Bld) [#/Vol] 308.0 E9/L Normal 150.0-500.0 [facility] Comment on above: Performed By: #### 2 063000, 5713297, 96628904, 46408807, 70863767 ####[facility] [address] [place] [address] RBC (Bld) [#/Vol] 4.6 E12/L Normal 4.3-5.9 [facility] Comment on above: Performed By: #### 2 209889, 8014249, 41861972, 62719400, 76414055 ####[facility] [address] [place] [address] WBC corrected for nucl RBC Auto (Bld) [#/Vol] 10.7 E9/L Normal 4.0-11.0 [facility] Comment on above: Performed By: #### 2 466396, 4735986, 14549230, 23338785, 78023407 ####[facility] [address] [place] [address] CHEMISTRYOrdered By: SYSTEM SYSTEM on 12-09-2023 Troponin 10.80 pg/mL Low 15.90 - 38.40 pg/mL [facility] Comment on above: Interpretive Data: T he 95% CI (Confidence Interval) PPV (Positive Predictive Value) for myocardial infarction in females is 38 pg/mL, in males 51 pg/mL. The results should be used in conjunction with clinical conditions of myocardial infarction. (Access High Sensitivity Troponin I Instructions For Use, Admitly, May 2018) Troponin 11.80 pg/mL Low 15.90 - 38.40 pg/mL [facility] Comment on above: Interpretive Data: T he 95% CI (Confidence Interval) PPV (Positive Predictive Value) for myocardial infarction in females is 38 pg/mL, in males 51 pg/mL. The results should be used in conjunction with clinical conditions of myocardial infarction. (Access High Sensitivity Troponin I Instructions For Use, [facility], May 2018) Cholesterol [Mass/Vol] 171 mg/dL Normal 120 - 200 mg/dL [facility] Cholesterol in HDL [Mass/Vol] 28 mg/dL Invalid Interpretation Code [facility] Comment on above: Result Comment: '>= 60 LOW RISK' '<= 40 HIGH RISK' Cholesterol in LDL [Mass/Vol] 111 mg/dL Normal <=129mg/dL [facility] Cholesterol in VLDL [Mass/Vol] 66 mg/dL High 7 - 40 mg/dL [facility] Triglyceride [Mass/Vol] 328 mg/dL High <=149mg/dL [facility] Troponin 14.30 pg/mL Low 15.90 - 38.40 pg/mL [facility] Comment on above: Interpretive Data: T he 95% CI (Confidence Interval) PPV (Positive Predictive Value) for myocardial infarction in females is 38 pg/mL, in males 51 pg/mL. The results should be used in conjunction with clinical conditions of myocardial infarction. (Access High Sensitivity Troponin I Instructions For Use, Martina Mansfield, May 2018) Anion gap [Moles/Vol] 12 mmol/L Normal 6 - 16 mEq/L [facility] Calcium [Mass/Vol] 9.4 mg/dL Normal 8.9 - 11. 1 mg/dL [facility] Chloride [Moles/Vol] 105 mmol/L Normal 101 - 1 11 mmol/L [facility] CO2 [Moles/Vol] 26 mmol/L Normal 21 - 31 mmol/L [facility] Creatinine [Mass/Vol] 1.6 mg/dL High 0.5 - 1.3 mg/dL [facility] eGFR 54 mL/min/1.73 m2 Low >=59mL/min / 1.73 m2 [facility] Glucose [Mass/Vol] 110 mg/dL Normal 55 - 199 mg/dL [facility] Potassium [Moles/Vol] 4.1 mmol/L Normal 3.5 - 5.3 mmol/L [facility] Sodium [Moles/Vol] 139 mmol/L Normal 135 - 145 mmol/L [facility] Urea nitrogen [Mass/Vol] 15 mg/dL Normal 5 - 21 mg/dL [facility] Urea nitrogen/Creatinine [Mass ratio] 9 mg/mg Low 10 - 20 [facility] CHEMISTRYOrdered By: Nathalia Block on 12-09-2023 HbA1c (Bld) [Mass fraction] 6.1 % High <=5.9% [facility] ChemAutoSS COAGULATIONOrdered By: Isi Longoria on 12-09-2023 aPTT Coag (PPP) [Time] 34.7 s Normal 25.1 - 36.5 second(s) [facility] Auto Coag Comment on above: Interpretive Data: P arameter 15 days - 4 weeks 1 - 5 months 6 - 11 months 1 - 5 years 6 - 10 years 11 - 17 years PTT Mean: 35.4 (27.6-45.6) Mean: 33.5 (24.8-40.7) Mean: 32.4 (25.1-40.7) Mean: 31.6 (24.0-39.2) Mean: 31.6 (26.9-38.7) Mean: 31.0 (24.6-38.4) Pediatric Reference ranges were obtained from a study by sd Melendrez alAnh prepared from 1437 samples obtained at 7 different centers using the same coagulation reagent and instrumentation as [facility]. Currently there are no coagulation studies available worldwide for children to 14 days, and no normal ranges. Heparin therapeutic range (represented by Anti-Factor Xa activity of 0.2 - 0.4 U/mL) corresponds to PTT of 56.6 - 109.0 sec. INR Coag (PPP) [Relative time] 0.97 {INR} Invalid Interpretation Code [facility] Comment on above: Interpretive Data: I NR results are specifically intended to assess patients stabilized on long-term Anticoagulation therapy suggested INR s Less Intensive Anticoagulation 2.0 3.0 Conventional Range 3.0 4.5 PT Coag (PPP) [Time] 10.9 s Normal 9.4 - 1 2.5 second(s) [facility] Comment on above: Interpretive Data: 1 5 days - 4 weeks 1 - 5 months 6 -11 months 1 5 years 6 10 years 11 -17 years Mean: 11.2 (9.5 12.6) Mean: 11.0 (9.7 12.8) Mean: 11.0 (9.8 13.0) Mean: 11.3 (9.9 13.4) Mean: 11.7 (10.0 14.6) Mean: 11.8 (10.0 - 14.1) Pediatric Reference ranges were obtained from a study by Osman Arambula et al. prepared from 1437 samples obtained at 7 different centers using the same coagulation reagent and instrumentation as [facility]. Currently there are no coagulation studies available worldwide for children to 14 days, and no normal ranges. Consent for Treatmenton Consent for Treatment [id number] IFF Normal [facility] Consultation Noteon 12-09-19 Consultation Note Chief Complaint Pt. reports high blood pressure that past few days and is now associatted with chest pain. Reason for Consultation Chest pain, hypertensive urgency History of Present Illness Patient is a very pleasant 43-year-old currently smoking nondiabetic gentleman with a history of hypertension, hypercholesterolemia, coronary artery disease status post acute anterior wall myocardial infarction on 08/29/2023 as outlined below. Patient been doing well up into the last day or so when he is developed 8 out of 10 chest pressure similar to his previous angina when he had his myocardial infarction. Patient states that he has been medically compliant with his aspirin and Brilinta. He denies any illicit drug use. He describes this as 7?8 out of 10 chest pressure radiating to his left arm with associated nausea and shortness of breath but no vomiting. When this did not improve he sought medical attention at [facility] emergency room. In the emergency room an EKG was performed which showed normal sinus rhythm, no acute changes. PVC. Initial blood pressure in the emergency room was 203/121. His symptoms resolved with sublingual nitroglycerin. His troponins are negative x 2. Patient's catheterization report is as below: LMT: Large caliber left main trunk with 30% stenosis and bifurcation LAD: Proximal ectasia and large caliber with 100% mid stenosis, reaches the apex and beyond to the distal inferior wall. LCx: Proximal ectasia and large caliber with diffuse mild to moderate disease and 50% distal stenosis, reaches the lateral wall. Codominant RCA: Medium caliber with 50% mid stenosis, codominant, reaches the basal inferior wall. Hemodynamics: Elevated LVEDP at 20 to 23 mmHg with no gradient across the aortic valve. Left ventriculography: Abnormal LV systolic function, EF 40-45 %, apical wall motion abnormalities and normal chamber size with no mitral regurgitation. PCI note: Success PCI mid LAD 100% stenosed CATIE 0 flow reduced to 0% residual CATIE-3 flow after plantation of a Xience 3.5/23 postdilated 3.5 NC at high pressure. Conclusions: Anterolateral STEMI due to plaque rupture and acute IL of the mid LAD, status post primary PCI with MARLY x1. CAD: DAPT, beta-alfonzo, statin, risk factor modification. Importance of antiplatelet compliance was emphasized including risk of stent thrombosis or . The patient understands as well as his accompanying family member/friend that the patient may have stent thrombosis or heart attack and the patient agrees. I myself have specifically counseled the patient regarding stent thrombosis risk including and the patient will additionally be counseled by the [employer] Nurse team and in follow-up. [1] Subsequent echocardiogram after his myocardial infarction on 08/30/2023 is as below: (08/30/2023 10:50 EST Echo Transthoracic Complete) Interpretation Summary No comparison study is available. Ejection Fraction = 40-45%. There is apical anterior wall akinesis There is mid anterior wall severe hypokinesis Grade I diastolic dysfunction, (abnormal relaxation pattern). Right ventricular systolic pressure is 27 mmHg. [2] Review of Systems Constitutional: no fever, no sweats, no weakness Skin: no rash, no lesions, nobruising/petechiae ENMT: no sore throat, no congestion, no hoarseness Respiratory: no shortness of breath, no cough, no orthopnea, no wheezing Cardiovascular: no chest pain, no palpitations, no edema Gastrointestinal: no nausea, no vomiting, no diarrhea, no GI bleeding Genitourinary: no anuria/oliguria no hematuria Musculoskeletal: no back pain, no trauma Neurologic: no headache, no dizziness, no numbness, no weakness Psychiatric: no sleeping problems, no irritability, no anxiety/depression. Heme/Lymph: no bleeding tendency, no bruising tendency Allergy/Immunologic: no recurrent infections, no impaired immunity Additional ROS info: Except as noted in the above Review of Systems and in the History of Present Illness all other systems have been reviewed and are negative or noncontributory. Physical Exam Vitals & Measurements T: 36.4 ?C(Oral) TMIN: 36.4 ?C(Oral) TMAX: 36.7 ?C(Oral) HR: 65(Monitored) RR: 18 BP: 142/101 SpO2: 98% HT: 175.26 cm WT: 78 kg General: alert, no acute distress Skin: warm, dry intact Head: atraumatic, normocephalic Neck: Trachea midline, no JVD, no bruit Eye: normal conjunctiva, sclera clear ENMT: oral mucosa moist Cardiovascular: regular rate and rhythm, nomurmur normal peripheral perfusion Respiratory: Lungs CTA, respirations non labored Chest wall: no deformity. Gastrointestinal: soft, non distended, no tenderness, no guarding. Back: No tenderness, Normal ROM, Normal alignment. Extremities: no edema, no deformity, no trauma Neurological: oriented x 4, LOC appropriate for agesensation equal & normal bilaterally, speech normal Psychiatric: cooperative, affect appropriate for age, normal judgement, normal psychiatric thoughts. Assessment (more content not included)... Normal [facility] Comment on above: Result Comment: Elec tronically Signed By: ZACH RODNEY, Frank Westbrook\.br\Date and Time Signed: 12/09/23 08:13 EST Discharge Instructionson Discharge Instructions [id number] IFF Normal [facility] Discharge Note-Nursingon Discharge Note-Nursing DENISE LANTIGUA :1980 Visit Date:12/09/2023 Inpatient Discharge Instructions Your Care Team Admitting Physician - Dora RHODES DO Consulting Physician - [facility] Cardio, XXXX ZACH RODNEY, Frank Westbrook Reason for Your Visit Pt. reports high blood pressure that past few days and is now associatted with chest pain. Your Diagnosis Chest pain 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 Hypertensive emergency Smoker Chronic back pain On deep vein thrombosis (DVT) prophylaxis Chest pain Shortness of breath Tests Performed BMP -- Results Pending -- CBC w/ Auto Diff -- Results Pending -- Echo Transthoracic Complete XR Chest Single View Please visit your patient portal for your results or contact your primary care physician. This Is Your Medications List [facility] Prescription (work excuse) acetaminophen-oxycodone (Percocet 325 mg-5 mg Tab) acetaminophen-oxycodone (Percocet 5 mg-325 mg oral tablet) aspirin (aspirin 81 mg Oral EC Tab) atorvastatin (atorvastatin 80 mg Tab) carvedilol (carvedilol 6.25 mg Tab) carvedilol (carvedilol 6.25 mg Tab) cyclobenzaprine (cyclobenzaprine 10 mg Tab) cyclobenzaprine (cyclobenzaprine 10 mg Tab) furosemide (Lasix 20 mg Tab) gabapentin (gabapentin 300 mg Cap) isosorbide mononitrate (isosorbide mononitrate 30 mg ER Tab) losartan (losartan 25 mg Tab) ranolazine (Ranexa 500 mg Tab-ER) ticagrelor (ticagrelor 90 mg oral tablet) [Image Removed: STOP]Stop taking these medications albuterol Procedure History PCI - Percutaneous coronary intervention (08/29/2023), Discectomy (10/10/2017), Discectomy (11/10/2016), Discectomy (10/10/2015). Discharge Vitals Temperature (Oral) 36.6 ?C Heart Rate (Monitored) 64 Respiratory Rate 18 Blood Pressure 97/63 Height 175.26 cm Weight 78 kg BMI 24.27 What to do next Instructions From Your Doctor Event Name Event Result Pending Diagnostic Test Results None Pharmacy Information [facility] Discharge Instructions Please return to ER if symptoms change or worsen. Please take medication as prescribed. Please monitor blood pressure. Please follow-up with cardiology New Follow Up Appointments after Discharge Follow Up with KATIE SALGUERO When: 12/14/2023 10:30 AM EST Where: [address] [place] [address]- Business (1) Follow Up with Rebekah RODNEY, Denise Valdez When: Within 1 to 2 weeks Comments: Call for followup appointment Call physician if symptoms worsen Where: [address] [place] [address]- Business (1) Medications What How Much When Instructions Next Dose Changed losartan (losartan 25 mg Tab) 1 Tablets By Mouth 2 times a day Pickup at [facility]/pharmacy #[id number] 12/08 @ 9 PM Unchanged acetaminophen-oxycodone (Percocet 325 mg-5 mg Tab) TAKE 1 TABLET BY MOUTH NEEDED UP TO 3 TIMES DAILY NEEDED FOR PAIN Unchanged acetaminophen-oxycodone (Percocet 5 mg-325 mg oral tablet) DUPLICATE ENTRY Unchanged aspirin (aspirin 81 mg Oral EC Tab) 1 Tablets By Mouth Every day 32 @ 9 AM Unchanged atorvastatin (atorvastatin 80 mg Tab) 1 Tablets By Mouth Every day 2 @ 9 AM Unchanged carvedilol (carvedilol 6.25 mg Tab) 1 Tablets By Mouth 2 times a day 12/08 @ 9 PM Unchanged carvedilol (carvedilol 6.25 mg Tab) TWICE PER DAY 3 @ 9 PM Unchanged cyclobenzaprine (cyclobenzaprine 10 mg Tab) See instructions 1 tab(s) Oral NEEDED FOR SPASMS Unchanged cyclobenzaprine (cyclobenzaprine 10 mg Tab) TAKE 1 TABLET BY MOUTH THREE TIMES A DAY NEEDED DUPLICATE ENTRY Unchanged furosemide (Lasix 20 mg Tab) 1 Tablets By Mouth Every day 12/09 @ 9 AM Unchanged gabapentin (gabapentin 300 mg Cap) TAKE 3 CAPSULES BY MOUTH 3 TIMES A DAY 12/08 @ 9 PM Unchanged isosorbide mononitrate (isosorbide mononitrate 30 mg ER Tab) 1 Tablets By Mouth Once a day (in the morning) 12/09 @ 9 AM Unchanged Misc Prescription (work excuse) 0 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 N/A Unchanged ranolazine (Ranexa 500 mg Tab-ER) 1 Tablets By Mouth 2 times a day 12/09 @ 9 AM Unchanged ticagrelor (ticagrelor 90 mg oral tablet) 1 Tablets By Mouth 2 times a day 12/08 @ 9 PM Pharmacy Information [facility]/pharmacy #[id number]: [address], [place] [id number] [phone] What When Comments Stop Taking albuterol Test Results CBC BMP WBC: 10.7 E9/L (12/09/23 01:05:00) Glucose Lvl: 110 mg/dL (12/09/23 01:05:00) RBC: 4.6 E12/L (12/09/23:05:00) BUN: 15 mg/dL (12/09/23 01:05:00) HGB: 13.8 gm/dL (12/09/23 01:05:00) Creatinine: 1.6 mg/dL High (12/09/23:05:00) Hct: 39.8 % (12/09/23 01:05:00) BUN/Creat Ratio: 9 Low (12/09/23 01:05:00) MCV: 86.2 fL (12/09/23 01:05:00) Sodium Lvl: 139 mmol/L (12/09/23 01:05:00) MCH: 29.9 pg (12/09/23 01:05:00) Potassium Lvl: 4.1 mmol/L (12/09/23 01:05:00) MCHC: 34.7 gm/dL (12/09/23 01:05:00) Chloride: 105 mmol/L (12/09/23 01:05:00) RDW: 16.4 % High (12/09/23 01:05:00) (more content not included)... Normal [facility] ED Clinical Summaryon 2023 ED Clinical Summary (Inserted Image. Aida ble to display) [address] [address] ED Clinical Summary Person Information [facility]: [facility] Age[facility] 43 Years : 1980 Sex: Male Language: Cape Verdean PCP: KATIE SALGUERO DO Marital Status: Single Visit Id: Visit Reason: Shortness of breath; Chest pain; HIGH BP - CHEST PAIN/ LEFT ARM PAIN Speciality: Acuity: 2 Enc Type: Observation Med Service: Emergency Arrival: 12/09/2023 00:52:27 Discharge: LOS: 000 01:43 Checkin: 12/09/2023 00:52:27 Checkout: 12/09/2023 02:35:47 Dispo Type: Admitted as IP to this [facility] EVENTS: Event Name Event Status Request Date/Time Start Date/Time Complete Date/Time Arrive Complete 12/09/2023 00:52:27 12/09/2023 00:52:27 12/09/2023 00:52:27 Document Home Meds Request 12/09/2023 00:52:27 Triage Complete 12/09/2023 00:52:27 12/09/2023 01:00:15 12/09/2023 01:00:15 Dr Exam Complete 12/09/2023 00:55:04 12/09/2023 00:55:04 12/09/2023 00:55:04 Registration Complete 12/09/2023 00:55:04 12/09/2023 01:00:07 12/09/2023 01:08:27 EKG Complete 12/09/2023 00:55:25 12/09/2023 00:58:33 Bed Assign Complete 12/09/2023 01:00:07 12/09/2023 01:00:07 12/09/2023 01:00:07 RN Exam Complete 12/09/2023 01:00:07 12/09/2023 01:05:40 12/09/2023 01:05:40 Isolation Screening Request 12/09/2023 01:00:16 Pending Labs Request 12/09/2023 01:03:34 Lab Complete 12/09/2023 01:03:34 12/09/2023 01:47:45 Meds Admin Complete 12/09/2023 01:03:34 12/09/2023 01:27:03 Patient Care Request 12/09/2023 01:03:34 RT Request 12/09/2023 01:03:34 X-Ray Complete 12/09/2023 01:03:34 12/09/2023 01:12:39 12/09/2023 01:13:22 Reg Complete Request 12/09/2023 01:08:27 Reg Bed Request Complete 12/09/2023 01:08:27 12/09/2023 01:08:27 12/09/2023 01:08:27 Pending Labs Complete 12/09/2023 01:13:06 12/09/2023 01:13:06 12/09/2023 01:47:45 Lab Complete 12/09/2023 01:13:06 12/09/2023 01:13:06 12/09/2023 01:47:45 Wet Read Request 12/09/2023 01:13:22 Bed Request Request 12/09/2023 02:05:45 Reg Bed Request Complete 12/09/2023 02:05:45 12/09/2023 02:10:10 12/09/2023 02:10:10 Admit Request 12/09/2023 02:05:45 Patient Care Request 12/09/2023 02:10:11 Patient Care Request 12/09/2023 02:10:11 Patient Care Request 12/09/2023 02:10:12 Patient Care Request 12/09/2023 02:10:12 ADDRESS: [address] [place] [phone] PHYS DOC NOTES: MEDICAL INFORMATION: Prescriptions Given: Medications to Continue with No Changes Other Medications acetaminophen-oxycodone (Percocet 325 mg-5 mg Tab) TAKE 1 TABLET BY MOUTH NEEDED UP TO 3 TIMES DAILY. acetaminophen-oxycodone (Percocet 5 mg-325 mg oral tablet) albuterol aspirin (aspirin 81 mg Oral EC Tab) 1 Tablets By Mouth every day. Refills: 0. atorvastatin (atorvastatin 80 mg Tab) 1 Tablets By Mouth every day. Refills: 6. carvedilol (carvedilol 6.25 mg Tab) 1 Tablets By Mouth 2 times a day. Refills: 6. carvedilol (carvedilol 6.25 mg Tab) cyclobenzaprine (cyclobenzaprine 10 mg Tab) 1 tab(s) Oral. Refills: 0. cyclobenzaprine (cyclobenzaprine 10 mg Tab) TAKE 1 TABLET BY MOUTH THREE TIMES A DAY NEEDED. furosemide (Lasix 20 mg Tab) 1 Tablets By Mouth every day. Refills: 6. gabapentin (gabapentin 300 mg Cap) TAKE 3 CAPSULES BY MOUTH 3 TIMES A DAY. isosorbide mononitrate (isosorbide mononitrate 30 mg ER Tab) 1 Tablets By Mouth once a day (in the morning). Refills: 3. losartan (losartan 50 mg Tab) 0.5 Tablets By Mouth every day. Refills: 6. Misc Prescription (work excuse) 0. 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 Refills: 0. ranolazine (Ranexa 500 mg Tab-ER) 1 Tablets By Mouth 2 times a day. Refills: 3. ticagrelor (ticagrelor 90 mg oral tablet) 1 Tablets By Mouth 2 times a day. Refills: 6. PATIENT EDUCATION INFORMATION: Instructions: Follow up: DIAGNOSIS: Chest pain; Hypertensive emergency Normal [facility] ED Note-Physicianon 12-09-19 ED Note-Physician Basic Information Time Seen: Valentin Warner DO 12/09/2023 00:55 Chief Complaint Pt. reports high blood pressure that past few days and is now associatted with chest pain. History of Present Illness HPI: Patient is a 43-year-old male with past medical history of of [place] with stent, hypertension, hyperlipidemia, CHF who presents the ED from home for chest pain and elevated blood pressure. Patient states that over the past couple of days he has noticed that his blood pressure has been abnormally elevated at home. He states that he had some intermittent left-sided chest pain over the past couple of days but since 1300 yesterday it has become constant. The pain is in his left chest and radiates down his left arm. He does have associated shortness of breath and some mild nausea. He reports that he is taking all his prescribed blood pressure medications today. ROS: Pertinent review of systems conducted and is negative except as noted above. Physical exam: General: nontoxic appearing and in no distress HEENT: Mucous membranes moist Neuro: awake and alert Neck: supple, trachea midline Card: Heart regular rate and rhythm no murmur Resp: Lungs clear to auscultation no wheeze or rhonchi Abd: Soft and nondistended. No tenderness to palpation with no rebound or guarding. Ext: No gross deformity or edema Physical Exam Vitals & Measurements T: 36.4 ?C(Oral) HR: 79(Peripheral) RR: 19 BP: 203/121 SpO2: 99% HT: 175 cm WT: 75.7 kg BMI: 24.72 Medical Decision Making MEDICAL DECISION MAKING Number and Complexity of Problems Differential Diagnosis: [] [facility] Data External documents reviewed: N/A My EKG interpretation: Noted in chart if applicable My CT interpretation: N/A My X-ray interpretation: Noted in chart if applicable My Ultrasound interpretation: N/A Decision rules/scores evaluated: Heart Score for Major Cardiac Event History: Example factors for history - pattern of chest pain, onset, duration, relation with exercise, stress or cold, localization, concominant symptoms. reaction to sublingual nitrates, [X] Highly suspicious +2 [] Moderately suspicious +1 [] Slightly suspicious 0 EKG: [] Significant ST-Depression +2 [X] Non specific repolarization disturbance +1 [] Normal 0 Age: [] >= 65 +2 [X] 45-65 + 1 [] <45 0 Risk Factors: (HLD, HTN, DM, Cigarette Smoking, Pos Family Hx, Obesity) [X] >3 risk factors or hx of atheroslerotic disease + 2 [] 1-2 risk factors + 1 [] No risk factors known 0 Troponin: [] >= 3X normal + 2 [] 1-3X normal + 1 [X] <= Normal 0 [] 0-3 Points 0.9 - 1.7% risk of major adverse cardiac event in 6 weeks [X] 4-6 Points 12-16.6% risk of major adverse cardiac event in 6 weeks [] 7-10 Points 50-65% risk of major adverse cardiac event in 6 weeks [] 0-3 Points with 2 sets of negative cardiac markers <1% risk of major adverse cardiac event in 30 days. Discussed with: N/A Treatment and Disposition ED Course: On arrival to ED patient is nontoxic-appearing and in no distress. He is noted to be significantly hypertensive on arrival. Cardiac workup was initiated. EKG shows some slight ST elevation, compared to his prior this has significantly improved as his previous 1 was from when he was diagnosed with a STEMI. Patient was given aspirin as well as nitroglycerin here in the ED. Chest x-ray shows no acute process. His initial troponin is within normal limits. He does have a bump in his creatinine compared to his previous. After the ED nitroglycerin and aspirin the patient's pain significantly improved. His blood pressure also improved. With his significant cardiac history and very concerning story I do feel he would benefit from further cardiac evaluation. Case was discussed with the hospitalist on-call who agreed admit the patient for further medical management. Shared decision making: As above Code status: N/A Assessment/Plan Chest pain (R07.9: Chest pain, unspecified) Hypertensive emergency (I16.1: Hypertensive emergency) Orders: aspirin, 162 mg = 2 tab(s), Tab-Chew, Oral, Once, Stop date 12/09/23 1:03:00 EST, STAT, Start date 12/09/23 1:03:00 EST, 12/09/23 1:03:00 EST nitroglycerin, 0.4 mg = 1 tab(s), Tab, SubLingual, q5min PRN Chest pain for 3 dose(s), Stop date Limited # of times, STAT, Start date 12/09/23 1:03:00 EST, Hold for SBP < 110, 12/09/23 1:03:00 EST Basic Metabolic Panel CBC w/ Auto Diff ECG 12 Lead Adult ED Cardiac Monitoring eGFR Oxygen Saturation Oxygen Therapy PT & PTT Saline Lock Insert Troponin 0 Hr. Troponin 3 Hr. Troponin 6 Hr. Troponin 9 Hr. XR Chest Single View Medications Administered Given aspirin 81 mg Chew Tab, 162 mg, Oral nitroglycerin 0.4 mg sublingual Tab, 0.4 mg, SubLingual nitroglycerin 0.4 mg sublingual Tab, 0. (more content not included)... Normal [facility] Comment on above: Result Comment: Elec tronically Signed By: Valentin Warner DO\.br\Date and Time Signed: 12/09/23 02:05 EST ED Patient Education Noteon 12-09-2023 ED Patient Education Note Normal [facility] ED Patient Summaryon 024 ED Patient Summary (Inserted Image. Aida ble to display) [place] [id number] Patient Discharge Instructions Person Information Name: DENISE LANTIGUA Age: 43 Years Arrival Date: 12/09/2023 00:52:27 Discharge Diagnosis: Chest pain; Hypertensive emergency Primary Care Physician: KATIE SALGUERO DO Provider Information Primary Provider: Valentin Warner DO [employer]:None The exam and treatment you received in the Emergency Department were for an urgent problem and are not intended as complete care. It is important that you follow up with a doctor, nurse practitioner, or physician?s per diem physical therapist assistant for ongoing care. If your symptoms become worse or you do not improve as expected and you are unable to reach your usual health care provider, you should return to the Emergency Department. We are available 24 hours a day. DENISE LANTIGUA has been given the following list of patient education materials, prescriptions and follow-up instructions: Follow-up Instructions: In the event that this physician does not participate in your insurance network, please consult with your insurance company to find a nearby participating provider. Patient Education Materials: A MESSAGE TO ALL PATIENTS REGARDING OPIOIDS PRESCRIPTION OPIOIDS: WHAT YOU NEED TO KNOW Prescription opioids can be used to help relieve aculzkxt-ga-xkgkrq pain and are often prescribed following a surgery or injury, or for certain health conditions. These medications can be an important part of the treatment but also come with serious risks. It is important to work with your healthcare provider to make sure you are getting the safest, most effective care. WHAT ARE THE RISKS AND SIDE EFFECTS OF OPIOID USE? Prescription opioids carry serious risks of addiction and overdose, especially with prolonged use. An opioid overdose, often marked by slowed breathing, can cause sudden . The use of prescription opioids can have a number of side effects as well, even when taken as directed: ? Tolerance?meaning you might need to take more of the medication for the same pain relief ? Physical dependence?meaning you have symptoms of withdrawal when a medication is stopped ? Increased sensitivity to pain ? Constipation ? Nausea, vomiting, and dry mouth ? Sleepiness and dizziness ? Confusion ? Depression ? Low levels of testosterone that can result in lower sex drive, energy, and strength ? Itching and sweating RISKS ARE GREATER WITH: ? History of drug misuse, substance use disorder, or overdose ? Mental health conditions (such as depression or anxiety) ? Sleep apnea ? Older age (65 years and older) ? Avoid alcohol while taking prescription opioids. Also, unless specifically advised by your health care provider, medications to avoid include: ? Benzodiazepines (such as Xanax or Valium) ? Muscle relaxants (such as Soma or Flexeril) ? Hypnotics (such as Ambien or Lunesta) ? Other prescription opioids KNOW YOUR OPTIONS Talk to your health care provider about ways to manage your pain that don?t involve prescription opioids. Some of these options may actually work better and have fewer risks and side effects. Options may include: ? Pain relievers such as acetaminophen, ibuprofen, and naproxen ? Some medication that are also used for depression or seizures ? Physical therapy and exercise ? Cognitive behavioral therapy, a psychological, goal-directed approach, in which patients learn how to modify physical, behavioral, and emotional triggers of pain and stress. IF YOU ARE PRESCRIBED OPIOIDS FOR PAIN: ? Never take opioids in greater amounts or more often than prescribed. ? Follow up with your primary health care provider. o Work together to create a plan on how to manage your pain. o Talk about ways to help manage your pain that don?t involve prescription opioids. o Talk about any and all concerns and side effects. ? Help prevent misuse and abuse o Never sell or share prescription opioids. o Never use another person?s prescription opioids. ? Store prescription opioids in a secure place and out of reach of others (this may include visitors, children, friends, and family). ? Safely dispose of unused prescription opioids: Find your community drug take-back program or your pharmacy mail-back program, or flush them down the toilet, following guidance from the Food and Drug Administration (www.fda.gov/Drugs/Reso urcesForYou). ? Visit www.cdc.gov/drugoverdos e to learn about the risks of opioids abuse and overdose. ? If you believe you may be struggling with addiction, tell your health career technical supervisor and ask for guidance or call [facility]S National Helpline at 3-587-369-ZXQI. n Source: US Department of Health and Human Services/Center for Disease Control & Prevention [facility] Medications Given: Medication Dose Route asp (more content not included)... Normal [facility] HEMATOLOGYOrdered By: SYSTEM SYSTEM on 12-09-2023 Basophils/100 WBC (Bld) 1.0 % Normal 0.0 - 2.0 % Remisol Heme Basophils/Leukocytes Auto (Bld) [Pure # fraction] 0.1 E9/L Normal 0.0 - 0.2 E9/L Remisol Heme Eosinophils (Bld) [#/Vol] 0.6 E9/L High 0.0 - 0.5 E9/L Remisol Heme Eosinophils/100 WBC (Bld) 5.8 % Normal 0.0 - 8.0 % Remisol Heme Erythrocyte distribution width (RBC) [Ratio] 16.4 % High 10.9 - 14.2 % Remisol Heme Hematocrit (Bld) [Volume fraction] 39.8 % Normal 37.7 - 49.0 % Remisol Heme Hemoglobin (Bld) [Mass/Vol] 13.8 g/dL Normal 13.5 - 17.5 gm/dL Remisol Heme Lymphocytes (Bld) [#/Vol] 3.1 E9/L Normal 1.0 - 4.0 E9/L Remisol Heme Lymphocytes/100 WBC (Bld) 28.6 % Normal 14.0 - 50.0 % Remisol Heme MCH (RBC) [Entitic mass] 29.9 pg Normal 27.0 - 34.0 pg Remisol Heme MCHC (RBC) [Mass/Vol] 34.7 g/dL Normal 31.4 - 36.0 gm/dL Remisol Heme MCV (RBC) [Entitic vol] 86.2 fL Normal 80.0 - 100.0 fL Remisol Heme Monocytes (Bld) [#/Vol] 0.6 E9/L Normal 0.2 - 1.0 E9/L Remisol Heme Monocytes/100 WBC (Bld) 5.5 % Normal 4.0 - 14.0 % Remisol Heme Neutrophils (Bld) [#/Vol] 6.3 E9/L Normal 2.0 - 7.5 E9/L Remisol Heme Neutrophils/100 WBC (Bld) 59.1 % Normal 36.0 - 75.0 % Remisol Heme Platelet mean volume (Bld) [Entitic vol] 8.2 fL Normal 6.4 - 10.8 fL Remisol Heme Platelets (Bld) [#/Vol] 308.0 E9/L Normal 150.0 - 500.0 E9/L Remisol Heme RBC (Bld) [#/Vol] 4.6 E12/L Normal 4.3 - 5.9 E12/L Remisol Heme WBC corrected for nucl RBC Auto (Bld) [#/Vol] 10.7 E9/L Normal 4.0 - 11.0 E9/L Remisol Heme [id number] 12-09-2023 HbA1c (Bld) [Mass fraction] 6.1 % High <=5.9 [facility] Comment on above: Performed By: #### 1 [id number] #### [facility] Laboratory [address] [place] [id number] Inpatient Clinical Summaryon 12-09-2023 Inpatient Clinical Summary [address] [address] Clinical Summary Person Information: Name: DENISE LANTIGUA Age: 43 Years : 1980 Sex: Male PCP: KATIE SALGUERO DO Marital Status: Single Race: White Ethnicity: Non- or Language: Cape Verdean Visit Id: Visit Reason: Shortness of breath; Chest pain; HIGH BP - CHEST PAIN/ LEFT ARM PAIN Speciality: Acuity: Enc Type: Observation Med Service: Medical Arrival: 12/09/2023 00:52:27 Discharge: Dispo Type: Admitted as IP to this [facility] Address: [address] [place] [phone] Provider Notes: Diagnosis: 1:Chest pain; 2: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; 3:Hypertensive emergency; 4:Smoker; 5:Chronic back pain; 6:On deep vein thrombosis (DVT) prophylaxis Problems Active Hypertensive emergency 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 Smoker Smoking Status: Current Every Day Smoker Functional Status: Sensory Deficits: History of Falls: Mobility Assistance Prior to Admission: ADLs: Independent Current Level of Assistance for Self-Care/Mobility: Cognitive Status: Oriented x 3 Allergies No Known Medication Allergies Measurements: Height: 175.26 cm Weight: 74.54 kg Blood Pressure: 97 mmHg / 63 mmHg BMI: 24.27 kg/m2 Procedures No Procedures Documented Immunizations No Immunizations Documented This Visit Final Med List: acetaminophen-oxycodone (Percocet 325 mg-5 mg Tab) TAKE 1 TABLET BY MOUTH NEEDED UP TO 3 TIMES DAILY. acetaminophen-oxycodone (Percocet 5 mg-325 mg oral tablet) aspirin (aspirin 81 mg Oral EC Tab) 1 Tablets By Mouth every day. Refills: 0. atorvastatin (atorvastatin 80 mg Tab) 1 Tablets By Mouth every day. Refills: 6. carvedilol (carvedilol 6.25 mg Tab) 1 Tablets By Mouth 2 times a day. Refills: 6. carvedilol (carvedilol 6.25 mg Tab) cyclobenzaprine (cyclobenzaprine 10 mg Tab) 1 tab(s) Oral. Refills: 0. cyclobenzaprine (cyclobenzaprine 10 mg Tab) TAKE 1 TABLET BY MOUTH THREE TIMES A DAY NEEDED. furosemide (Lasix 20 mg Tab) 1 Tablets By Mouth every day. Refills: 6. gabapentin (gabapentin 300 mg Cap) TAKE 3 CAPSULES BY MOUTH 3 TIMES A DAY. isosorbide mononitrate (isosorbide mononitrate 30 mg ER Tab) 1 Tablets By Mouth once a day (in the morning). Refills: 3. losartan (losartan 25 mg Tab) 1 Tablets By Mouth 2 times a day. Refills: 0. Misc Prescription (work excuse) 0. 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 Refills: 0. ranolazine (Ranexa 500 mg Tab-ER) 1 Tablets By Mouth 2 times a day. Refills: 3. ticagrelor (ticagrelor 90 mg oral tablet) 1 Tablets By Mouth 2 times a day. Refills: 6. Care Team Members: Attending Physician: Dora RHODES DO Consulting Physician: [facility], XXXX; ZACH RODNEY, Frank Westbrook Referring Physician: Follow up: With: Address: When: Rebekah RODNEY, Denise Parada[address] [address] Business (1) Within 1 to 2 weeks Comments: Call for followup appointment Call physician if symptoms worsen With: Address: When: KATIE Landrum MAR[place] , [address] [address] Business (1) 12/14/2023 10:30 AM Patient Education Information: Hypertension, Adult, Eizj-ga-Igar Normal [facility] Inpatient Patient Summaryon 12-09-2023 Inpatient Patient Summary [address] [address] Patient Discharge Instructions PERSON INFORMATION Name: DENISE LANTIGUA Date of : 1980 Current Date: 12/09/2023 13:55:55 PHYSICIANS Admitting Physician: Dora RHODES DO Primary Care Physician: KATIE SALGUERO DO PCP Comment: Discharge Diagnosis: 1:Chest pain; 2: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; 3:Hypertensive emergency; 4:Smoker; 5:Chronic back pain; 6:On deep vein thrombosis (DVT) prophylaxis Condition at Discharge: Improved GRZEGORZDENISE has been given the following list of follow-up instructions, prescriptions, and patient education materials: PATIENT FOLLOW-UP INFORMATION Diet: Discharge Activity: Discharge Restrictions: Wound Care Instructions: Remove Your Dressing In Days Call Your Doctor For: IF UNABLE TO CONTACT YOUR PHYSICIAN AND YOU FEEL IT IS AN EMERGENCY, GO TO THE NEAREST EMERGENCY ROOM OR CALL 911 Home Treatment: Devices/Equipment: None Special Services: Additional Instructions: Please return to ER if symptoms change or worsen. Please take medication as prescribed. Please monitor blood pressure. Please follow-up with cardiology Primary Care Physician to provide the following pending test results: None Follow up: With: Address: When: Rebekah RODNEY, [place] [address] Business (1) Within 1 to 2 weeks Comments: Call for followup appointment Call physician if symptoms worsen With: Address: When: KATIE SALGUERO [facility] [address]JA, [address] [address] [facility] (1) 12/14/2023 10:30 AM In the event that this physician does not participate in your insurance network, please consult with your insurance company to find a nearby participating provider. Comment: GRZEGORZ Angel RYAN, have received the attached patient education materials/instructions and have verbalized understanding: Patient Signature Date Clinican/Nurse Signature _ Date HERE ARE THE MEDICATION CHANGES THAT OCCURRED DURING YOUR HOSPITAL STAY Medications to Continue Taking That Have Changed [id number], [address], [place] [phone], [phone] START: losartan (losartan 25 mg Tab) 1 Tablets By Mouth 2 times a day. Refills: 0. Last Dose: __Next Dose: __ STOP: losartan (losartan 50 mg Tab) 0.5 Tablets By Mouth every day. Refills: 6. Medications to Continue with No Changes Other Medications acetaminophen-oxycodone (Percocet 325 mg-5 mg Tab) TAKE 1 TABLET BY MOUTH NEEDED UP TO 3 TIMES DAILY. Last Dose: __Next Dose: __ acetaminophen-oxycodone (Percocet 5 mg-325 mg oral tablet) Last Dose: __Next Dose: __ aspirin (aspirin 81 mg Oral EC Tab) 1 Tablets By Mouth every day. Refills: 0. Last Dose: __Next Dose: __ atorvastatin (atorvastatin 80 mg Tab) 1 Tablets By Mouth every day. Refills: 6. Last Dose: __Next Dose: __ carvedilol (carvedilol 6.25 mg Tab) 1 Tablets By Mouth 2 times a day. Refills: 6. Last Dose: __Next Dose: __ carvedilol (carvedilol 6.25 mg Tab) Last Dose: __Next Dose: __ cyclobenzaprine (cyclobenzaprine 10 mg Tab) 1 tab(s) Oral. Refills: 0. Last Dose: __Next Dose: __ cyclobenzaprine (cyclobenzaprine 10 mg Tab) TAKE 1 TABLET BY MOUTH THREE TIMES A DAY NEEDED. Last Dose: __Next Dose: __ furosemide (Lasix 20 mg Tab) 1 Tablets By Mouth every day. Refills: 6. Last Dose: __Next Dose: __ gabapentin (gabapentin 300 mg Cap) TAKE 3 CAPSULES BY MOUTH 3 TIMES A DAY. Last Dose: __Next Dose: __ isosorbide mononitrate (isosorbide mononitrate 30 mg ER Tab) 1 Tablets By Mouth once a day (in the morning). Refills: 3. Last Dose: __Next Dose: __ Misc Prescription (work excuse) 0. 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 Refills: 0. Last Dose: __Next Dose: __ ranolazine (Ranexa 500 mg Tab-ER) 1 Tablets By Mouth 2 times a day. Refills: 3. Last Dose: __Next Dose: __ ticagrelor (ticagrelor 90 mg oral tablet) 1 Tablets By Mouth 2 times a day. Refills: 6. Last Dose: __Next Dose: __ No Longer Take the Following Medications albuterol Comment: MEDICATION LIST PROVIDED FOR YOU IS A LIST OF YOUR CURRENT MEDICATIONS. PLEASE CARRY THIS WITH YOU AT ALL TIMES. acetaminophen-oxycodone (Percocet 325 mg-5 mg Tab) TAKE 1 TABLET (more content not included)... Normal [facility] Insurance Correspondenceon 0 12-09-2023 Insurance Correspondence [id number] TIFF Normal [facility] Interdisciplinary Note - Sunil e Manageron 12-09-2023 Interdisciplinary Note - Patternmaker Sample Pt is awake and alert in bed, previously rounded with Dr. Thompson. Pt is getting cardiac echo at this time, family present at bedside. Pt is form home with family support and they will transport at DC. Pending cardiology to see. Pt declines any further concerns or DC needs. Observation status reviewed. CRM following. . PCP verified and insurance information reviewed and DME discussed. Contact information provided and white board updated. probable DC home later today Normal [facility] Comment on above: Result Comment: Elec tronically Signed By: Caesar DELACRUZ, Luzma\.anne\Date and Time Signed: 12/09/23 10:39 EST Lipid Panelon 12-09-2023 Cholesterol [Mass/Vol] 171 mg/dL Normal 120-200 [facility] Comment on above: Performed By: #### 1 [id number] #### [facility] [address] [place] [address] Cholesterol in HDL [Mass/Vol] 28 mg/dL Invalid Interpretation Code [facility] Comment on above: Result Comment: '>= 60 LOW RISK' '<= 40 HIGH RISK' Performed By: #### 1 [id number] #### [facility] [address] [place] [address] Cholesterol in LDL [Mass/Vol] 111 mg/dL Normal <=129 [facility] Comment on above: Performed By: #### 1 [id number] #### [facility] [address] [place] [address] Cholesterol in VLDL [Mass/Vol] 66 mg/dL High 7-40 [facility] Comment on above: Performed By: #### 1 [id number] #### [facility] [address] [place] [address] Triglyceride [Mass/Vol] 328 mg/dL High <=149 [facility] Comment on above: Performed By: #### 1 [id number] #### [facility] [address] [place] [address] Monitor Recordon 12-09-2023 Monitor Record [id number] TIFF Normal [facility] Monitor Record [id number]#1.00 TIFF Normal [facility] Monitor Record [id number]#1.00 TIFF Normal [facility] Monitor Record [id number]#1.00 TIFF Normal [facility] PT & PTTon 12-09-2023 aPTT Coag (PPP) [Time] 34.7 second(s) Normal 25.1-36.5 [facility] Comment on above: Result Comment: Para meter 15 days - 4 weeks 1 - 5 months 6 - 11 months 1 - 5 years 6 - 10 years 11 - 17 years PTT Mean: 35.4 (27.6-45.6) Mean: 33.5 (24.8-40.7) Mean: 32.4 (25.1-40.7) Mean: 31.6 (24.0-39.2) Mean: 31.6 (26.9-38.7) Mean: 31.0 (24.6-38.4) Pediatric Reference ranges were obtained from a study by Osman Arambula et al. prepared from 1437 samples obtained at 7 different centers using the same coagulation reagent and instrumentation as [facility]. Currently there are no coagulation studies available worldwide for children to 14 days, and no normal ranges. Heparin therapeutic range (represented by Anti-Factor Xa activity of 0.2 - 0.4 U/mL) corresponds to PTT of 56.6 - 109.0 sec. Performed By: #### 2 [id number] ####[facility] [address] [place] [address] INR Coag (PPP) [Relative time] 0.97 {INR} Invalid Interpretation Code [facility] Comment on above: Result Comment: INR results are specifically intended to assess patients stabilized on long-term Anticoagulation therapy suggested INR?s ?Less Intensive Anticoagulation? 2.0 ? 3.0 Conventional Range 3.0 ? 4.5 Performed By: #### 2 [id number] ####[facility] [address] [place] [address] PT Coag (PPP) [Time] 10.9 second(s) Normal 9.4-12.5 [facility] Comment on above: Result Comment: 15 d ays - 4 weeks 1 - 5 months 6 -11 months 1 ? 5 years 6 ? 10 years 11 -17 years Mean: 11.2 (9.5 ? 12.6) Mean: 11.0 (9.7 ? 12.8) Mean: 11.0 (9.8 ? 13.0) Mean: 11.3 (9.9 ? 13.4) Mean: 11.7 (10.0 ? 14.6) Mean: 11.8 (10.0 - 14.1) Pediatric Reference ranges were obtained from a study by sd Melendrez al. prepared from 1437 samples obtained at 7 different centers using the same coagulation reagent and instrumentation as [facility]. Currently there are no coagulation studies available worldwide for children to 14 days, and no normal ranges. Performed By: #### 2 [id number], [id number] ####[facility] [address] [place] [address] Patient Education - Texton 0 12-09-2023 Patient Education - Text Cardiovascular Hypertension, Adult Hypertension is another name for high blood pressure. High blood pressure forces your heart to work harder to pump blood. This can cause problems over time. There are two numbers in a blood pressure reading. There is a top number (systolic) over a bottom number (diastolic). It is best to have a blood pressure that is below 120/80. What are the causes? The cause of this condition is not known. Some other conditions can lead to high blood pressure. What increases the risk? Some lifestyle factors can make you more likely to develop high blood pressure: ? Smoking. ? Not getting enough exercise or physical activity. ? Being overweight. ? Having too much fat, sugar, calories, or salt (sodium) in your diet. ? Drinking too much alcohol. Other risk factors include: ? Having any of these conditions: ? Heart disease. ? Diabetes. ? High cholesterol. ? Kidney disease. ? Obstructive sleep apnea. ? Having a family history of high blood pressure and high cholesterol. ? Age. The risk increases with age. ? Stress. What are the signs or symptoms? High blood pressure may not cause symptoms. Very high blood pressure (hypertensive crisis) may cause: ? Headache. ? Fast or uneven heartbeats (palpitations). ? Shortness of breath. ? Nosebleed. ? Vomiting or feeling like you may vomit (nauseous). ? Changes in how you see. ? Very bad chest pain. ? Feeling dizzy. ? Seizures. How is this treated? ? This condition is treated by making healthy lifestyle changes, such as: ? Eating healthy foods. ? Exercising more. ? Drinking less alcohol. ? Your doctor may prescribe medicine if lifestyle changes do not help enough and if: ? Your top number is above 130. ? Your bottom number is above 80. ? Your personal target blood pressure may vary. Follow these instructions at home: Eating and drinking ? If told, follow the DASH eating plan. To follow this plan: ? Fill one half of your plate at each meal with fruits and vegetables. ? Fill one fourth of your plate at each meal with whole grains. Whole grains include whole-wheat pasta, brown rice, and whole-grain bread. ? Eat or drink low-fat dairy products, such as skim milk or low-fat yogurt. ? Fill one fourth of your plate at each meal with low-fat (lean) proteins. Low-fat proteins include fish, chicken without skin, eggs, beans, and tofu. ? Avoid fatty meat, cured and processed meat, or chicken with skin. ? Avoid pre-made or processed food. ? Limit the amount of salt in your diet to less than 1,500 mg each day. ? Do not drink alcohol if: ? Your doctor tells you not to drink. ? You are , may be , or are planning to become . ? If you drink alcohol: ? Limit how much you have to: ? 0?1 drink a day for women. ? 0?2 drinks a day for men. ? Know how much alcohol is in your drink. In the [place] one drink equals one 12 oz bottle of beer (355 mL), one 5 oz glass of wine (148 mL), or one 1? oz glass of hard liquor (44 mL). Lifestyle ? Work with your doctor to stay at a healthy weight or to lose weight. Ask your doctor what the best weight is for you. ? Get at least 30 minutes of exercise that causes your heart to beat faster (aerobic exercise) most days of the week. This may include walking, swimming, or biking. ? Get at least 30 minutes of exercise that strengthens your muscles (resistance exercise) at least 3 days a week. This may include lifting weights or doing Pilates. ? Do not smoke or use any products that contain nicotine or tobacco. If you need help quitting, ask your doctor. ? Check your blood pressure at home as told by your doctor. ? Keep all follow-up visits. Medicines ? Take [id number] and prescription medicines only as told by your doctor. Follow directions carefully. ? Do not skip doses of blood pressure medicine. The medicine does not work as well if you skip doses. Skipping doses also puts you at risk for problems. ? Ask your doctor about side effects or reactions to medicines that you should watch for. Contact a doctor if: ? You think you are having a reaction to the medicine you are taking. ? You have headaches that keep coming back. ? You feel dizzy. ? You have swelling in your ankles. ? You have trouble with your vision. Get help right away if: ? You get a very bad headache. ? You start to feel mixed up (confused). ? You feel weak or numb. ? You feel faint. ? You have very bad pain in your: ? Chest. ? Belly (abdomen). ? You vomit more than once. ? You have trouble breathing. These symptoms may be an emergency. Get help right away. Call 911. ? Do not wait to see if the symptoms will go away. ? Do not drive yourself to the hospital. Summary ? Hypertension is another name for high blood pressure. ? High blood pressure forces your heart to work harder to pump blood. ? For m (more content not included)... Normal [facility] Progress Note-Physicianon Progress Note-Physician Assessment/Plan 1. Chest pain (R07.9: Chest pain, unspecified) possibly 2/2 high BP trop trend was negative tele cardio consulted and following pt echo pending - Baby aspirin - Brilinta - Coreg 6.25 mg - Start Imdur 30 mg p.o. twice daily with titration. - losartan was increased to 25 mg p.o. BID with monitoring of creatinine - Continue Ranexa - Stress test is not recommended at this time given negative troponin 2. 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 (I25.10: Atherosclerotic heart disease of tejon coronary artery without angina pectoris) hx of IL in 08/2023 ASA, brilinta, statin 3. Hypertensive emergency (I16.1: Hypertensive emergency) 2/2 to above Losartan coreg imdur Hydralazine prn 4. Smoker (F17.200: Nicotine dependence, unspecified, uncomplicated) Nicotine patch prn Educate on smoking cessation 5. Chronic back pain (M54.9: Dorsalgia, unspecified) Gabapentin Oxycodone 6. 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 elevated Cr -monitor -may need IVF Subjective Patient seen and examined. No acute events overnight. Patient states that he has had improvements in his chest pain since time of admission. Reports his pain is only about a 4-5/10. He states he only has minimal shortness of breath. He denies any abdominal pain, headache, nausea, or vomiting. Review of Systems As stated above. Objective Vitals & Measurements T: 36.4 ?C(Oral) TMIN: 36.4 ?C(Oral) TMAX: 36.7 ?C(Oral) HR: 65(Monitored) RR: 18 BP: 142/101 SpO2: 98% HT: 175.26 cm WT: 78 kg Intake & Output This visit (24 hour periods starting at 07:00 EST) 12/09/23 * 12/08/23 12/07/23 Total Summary Intake mL -- 0.5 -- Output mL -- -- -- Fluid Balance -- 0.5 -- Intake (1) hydrALAZINE mL -- 0.5 -- Total -- 0.5 -- Output (0) Counts (0) * This column has not completed the indicated time period. Physical Exam General: Looks well, no acute distress, well-nourished, well-kept Skin: Warm, dry Head: No trauma, normocephalic Neck: Trachea midline, supple, negative for JVD Eye: Conjunctive are clear, clear sclera , EOMI ENMT: oral mucosa moist, no lesions or edema nose or external ears Cardiovascular: Regular rate and rhythm, S1-S2 present, negative for murmurs rubs or gallops Respiratory: Lungs clear to auscultation, bilateral symmetric movement, negative for wheezes rales or rhonchi Chest wall: no deformity. Gastrointestinal: Abdomen soft, nontender to palpation, bowel sounds present Back: No tenderness Extremities: Range of motion intact, no edema Neurological: awake, alert, speech normal, cranial nerves II through XII intact, no sensory defects, alert and oriented x3 Psychiatric: cooperative, affect appropriate for age, pleasant Lab Results WBC: 10.7 E9/L (12/09/23 01:05:00) RBC: 4.6 E12/L (12/09/23 01:05:00) HGB: 13.8 gm/dL (12/09/23:05:00) Hct: 39.8 % (12/09/23 01:05:00) MCV: 86.2 fL (12/09/23 01:05:00) MCH: 29.9 pg (12/09/23:05:00) MCHC: 34.7 gm/dL (12/09/23:05:00) RDW: 16.4 % High (12/09/23:05:00) Platelet: 308 E9/L (12/09/23 01:05:00) MPV: 8.2 fL (12/09/23 01:05:00) Neutro Auto: 59.1 % (12/09/23:05:00) Lymph Auto: 28.6 % (12/09/23:05:00) [place] Auto: 5.5 % (12/09/23:05:00) Eos Auto: 5.8 % (12/09/23:05:00) Basophil Auto: 1 % (12/09/23:05:00) Neutro Absolute: 6.3 E9/L (12/09/23 01:05:00) Lymph Absolute: 3.1 E9/L (12/09/23:05:00) [place] Absolute: 0.6 E9/L (12/09/23 01:05:00) Eos Absolute: 0.6 E9/L High (12/09/23:05:00) Basophil Absolute: 0.1 E9/L (12/09/23:05:00) PT: 10.9 second(s) (12/09/23:05:00) INR: 0.97 (12/09/23:05:00) PTT: 34.7 second(s) (12/09/23:05:00) Glucose Lvl: 110 mg/dL (12/09/23 01:05:00) BUN: 15 mg/dL (12/09/23 01:05:00) Creatinine: 1.6 mg/dL High (12/09/23 01:05:00) eGFR: 54 mL/min/1.73 m2 Low (12/09/23 01:05:00) BUN/Creat Ratio: 9 Low (12/09/23 01:05:00) Sodium Lvl: 139 mmol/L (12/09/23 01:05:00) Potassium Lvl: 4.1 mmol/L (12/09/23 01:05:00) Chloride: 105 mmol/L (12/09/23 01:05:00) CO2: 26 mmol/L (12/09/23 01:05:00) AGAP: 12 mEq/L (12/09/23 01:05:00) Calcium Lvl: 9.4 mg/dL (12/09/23 01:05:00) Chol: 171 mg/dL (12/09/23 04:01:00) Tri mg/dL High (12/09/23 04:01:00) HDL: 28 mg/dL (12/09/23 04:01:00) LDL Direct: 111 mg/dL (12/09/23 04:01:00) VLDL: 66 mg/dL High (12/09/23 04:01:00) Troponin: 11.8 pg/mL Low (12/09/23 07:20:00) Attestation I was present with the PA student for the service. I personally verified the history of present illness and performed the physical examination and medical decision making. I have verified all of the ALBERTO student's documentation for this encounter. Problem List/Past Medical History Ongoing 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 Hypertensive emergency Smoker Historical CHF - Congestive heart failure Hyperlipidemia Hypertension Myocardial infarction Stent Me (more content not included)... Normal [facility] Comment on above: Result Comment: Elec tronically Signed By: Xuan Her\.br\Date and Time Signed: 12/09/23 08:43 EST\.br\Electronically Co-Signed By: Durga Thompson DO\.br\Date and Time Co-Signed: 12/09/23 10:42 EST Troponin 0 Hr.on 12-09-2023 Troponin 13.30 pg/mL Low 15.90-38.40 [facility] Comment on above: Result Comment: The 95% CI (Confidence Interval) PPV (Positive Predictive Value) for myocardial infarction in females is 38 pg/mL, in males 51 pg/mL. The results should be used in conjunction with clinical conditions of myocardial infarction. (Access High Sensitivity Troponin I Instructions For Use, Admitly, May 2018) Performed By: #### 2 [id number] ####[facility] [address] [place] [address] Troponin 3 Hr.on 12-09-2023 Troponin 14.30 pg/mL Low 15.90-38.40 [facility] Comment on above: Result Comment: The 95% CI (Confidence Interval) PPV (Positive Predictive Value) for myocardial infarction in females is 38 pg/mL, in males 51 pg/mL. The results should be used in conjunction with clinical conditions of myocardial infarction. (Access High Sensitivity Troponin I Instructions For Use, Admitly, May 2018) Performed By: #### 1 [id number] #### [facility] [address] [place] [address] Troponin 6 Hr.on 12-09-2023 Troponin 11.80 pg/mL Low 15.90-38.40 [facility] Comment on above: Result Comment: The 95% CI (Confidence Interval) PPV (Positive Predictive Value) for myocardial infarction in females is 38 pg/mL, in males 51 pg/mL. The results should be used in conjunction with clinical conditions of myocardial infarction. (Access High Sensitivity Troponin I Instructions For Use, Admitly, May 2018) Performed By: #### 1 [id number] #### [facility] [address] [place] [address] Troponin 9 Hr.on 12-09-2023 Troponin 10.80 pg/mL Low 15.90-38.40 [facility] Comment on above: Result Comment: The 95% CI (Confidence Interval) PPV (Positive Predictive Value) for myocardial infarction in females is 38 pg/mL, in males 51 pg/mL. The results should be used in conjunction with clinical conditions of myocardial infarction. (Access High Sensitivity Troponin I Instructions For Use, Admitly, May 2018) Performed By: #### 1 [id number] #### [facility] [address] [place] [address] XR Chest Single Viewon 12-08 XR Chest Single View Exam Date/Time: 12/09/2023 01:13 EST Reason for Exam: Chest pain Report [facility] [phone] IMPRESSION: There are no acute cardiopulmonary changes. CLINICAL HISTORY: Chest pain EXAMINATION: XR Chest Single View COMPARISON: FINDINGS: The cardiomediastinal silhouette is unremarkable. The lungs are free of infiltrates effusions or consolidations. There are no acute osseous changes. Ordering Provider: Valentin Warner FINAL REPORT Dictated: 12/09/2023 8:35 am Shimon Perry MD, V. Signed (Electronic Signature): 12/09/2023 8:35 am Signed by: Shimon Perry MD, V. Transcribed by: ERNESTINE Technologist: CLAUDETTE Technical Comments Radiation Dose: Ka,r in mGy = na DAP = na Normal [facility] eGFRon 12-09-2023 eGFR 54 mL/min/1.73 m2 Low >=59 [facility] Comment on above: Order Comment: Order added by Discern Expert. Performed By: #### 2 [id number], [id number], [id number], [id number] ####[facility] [id number] [place] [id number] Monitor Recordon 11-01-2023 Monitor Record [id number]#1.00 TIFF Normal [facility] Heart and Vascular Office/Cl inic Noteon 10-16-2023 Heart and Vascular Office/Clinic Note Chief Complaint f/u cath 08/29/23 History of Present Illness Denise Lantigua presents today for a follow-up evaluation of IL, primary PCI of the LAD, mild ischemic cardiomyopathy, hypertension, and hyperlipidemia. He is accompanied by an adult female. The patient reports that he has been feeling worn out since his myocardial infarction. He has been experiencing intermittent angina and dyspnea. The adult female notes that he is unable to lay down due to dyspnea. She notes that the patient's chest pain is frequent. His chest pains are exacerbated with physical exertion, such as manual labor or walking through the house. The patient has the paperwork to fill out for short term disability. He would like to participate in cardiac rehabilitation. Review of Systems Review of Systems Constitutional: no fever, no sweats, no weakness Skin: no rash, no lesions, no bruising/petechiae ENMT: no sore throat, no congestion, no hoarseness Respiratory: positive for shortness of breath, no cough, no orthopnea, no wheezing Cardiovascular: positive for chest pain, no palpitations, no edema Gastrointestinal: no nausea, no vomiting, no diarrhea, no GI bleeding Genitourinary: no anuria/oliguria no hematuria Musculoskeletal: no back pain, no trauma Neurologic: no headache, no dizziness, no numbness, no weakness Psychiatric: no sleeping problems, no irritability, no anxiety/depression. Heme/Lymph: no bleeding tendency, no bruising tendency Allergy/Immunologic: no recurrent infections, no impaired immunity Additional ROS info: Except as noted in the above Review of Systems and in the History of Present Illness all other systems have been reviewed and are negative or noncontributory Physical Exam Vitals & Measurements HR: 84(Peripheral) BP: 112/82 SpO2: 94% HT: 69 in HT: 175 cm WT: 73.7 kg WT: 162.14 lb BMI: 24.07 General: alert, no acute distress Skin: warm, dry intact Head: atraumatic, normocephalic Neck: trachea midline, no JVD, no bruit Eye: normal conjunctiva, sclera clear ENMT: oral mucosa moist Cardiovascular: regular rate and rhythm, no murmur, normal peripheral perfusion Respiratory: lungs CTA, respirations non labored Chest wall: no deformity. Gastrointestinal: soft, non-distended, no tenderness, no guarding. Back: no tenderness, normal ROM, normal alignment. Extremities: no edema, no deformity, no trauma Neurological: oriented x 4, LOC appropriate for age, sensation equal & normal bilaterally, speech normal Psychiatric: cooperative, affect appropriate for age, normal judgement, normal psychiatric thoughts. Assessment/Plan Denise Lantigua has a history of IL, primary PCI of the LAD, mild ischemic cardiomyopathy, hypertension, and hyperlipidemia. 1. CAD The patient is still having shortness of breath and some angina. He had moderate diffuse disease otherwise. We will add Ranexa and Imdur and get a blood test. He is going to go on short term disability. 2. Hypertension Blood pressure is well-controlled on current medications, continue carvedilol 6.25 mg twice daily, losartan 25 mg daily, and Imdur 3. Hyperlipidemia Continue high intensity atorvastatin 80 mg daily Follow-up in 4 weeks. ATTESTATION: Portions of this record may have been created with voice recognition artificial intelligence software, specifically [employer], [employer] and or [employer]. Substitutions may have occurred with voice recognition and artificial intelligence software. Documentation services were performed after patient or guardian consented to allow [employer] to record this visit. SUSAN solar site assessment specialist and provider reviewed before signing. SUSAN: Reba Nathan Follow-up No qualifying data available Problem List/Past Medical History Ongoing Smoker Historical No qualifying data Procedure/Surgical History PCI - Percutaneous coronary intervention (08/29/2023), Discectomy (10/10/2017), Discectomy (11/10/2016), Discectomy (10/10/2015). Medications albuterol, Not taking aspirin 81 mg Oral EC Tab, 81 mg= 1 tab(s), Oral, Daily atorvastatin 80 mg Tab, 80 mg= 1 tab(s), Oral, Daily carvedilol 6.25 mg Tab cyclobenzaprine 10 mg Tab gabapentin 300 mg Cap isosorbide mononitrate 30 mg ER Tab, 30 mg= 1 tab(s), Oral, qAM, 3 refills Lasix 20 mg Tab, 20 mg= 1 tab(s), Oral, Daily losartan 50 mg Tab, 25 mg= 0.5 tab(s), Oral, Daily Percocet 325 mg-5 mg Tab Percocet 5 mg-325 mg oral tablet Ranexa 500 mg Tab-ER, 500 mg= 1 tab(s), Oral, BID, 3 refills ticagrelor 90 mg oral tablet, 90 mg= 1 tab(s), Oral, BID work excuse, 0 Allergies No Known Medication Allergies Social History Tobacco 4 or less cigarettes(less than 1/4 pack)/day in last 30 days Tobacco Use:., 09/29/2023 Normal [facility] Comment on above: Result Comment: Elec tronically Signed By: Rebekah RODNEY, Denise Valdez\.br\Date and Time Signed: 10/16/23 20:26 EST\.br\Electronically Co-Signed By: Reba Nathan\.br\Date and Time Co-Signed: 09/30/23 12:19 EST [employer] 10-05-2023 Forms [id number] IFF Normal [facility] Auto Diffon 08-31-2023 Basophils/100 WBC (Bld) 1.1 % Normal 0.0-2.0 [facility] Comment on above: Order Comment: Order Added by Discern Expert. Performed By: #### 1 [id number] #### [facility] [address] [place] [address] Basophils/Leukocytes Auto (Bld) [Pure # fraction] 0.1 E9/L Normal 0.0-0.2 [facility] Comment on above: Order Comment: Order Added by Discern Expert. Performed By: #### 1 [id number] #### [facility] [address] [place] [address] Eosinophils/100 WBC (Bld) 0.9 % Normal 0.0-8.0 [facility] Comment on above: Order Comment: Order Added by Discern Expert. Performed By: #### 1 [id number], [id number] #### [facility] [address] [place] [address] Eosinophils/Leukocyte s Auto (Bld) [Pure # fraction] 0.1 E9/L Normal 0.0-0.5 [facility] Comment on above: Order Comment: Order Added by Discern Expert. Performed By: #### 1 [id number], [id number] #### [facility] [address] [place] [address] Lymphocytes/100 WBC (Bld) 30.8 % Normal 14.0-50.0 [facility] Comment on above: Order Comment: Order Added by Juliana Expert. Performed By: #### 1 [id number], [id number] #### [facility] [address] [place] [address] Lymphocytes/Leukocyte s Auto (Bld) [Pure # fraction] 3.2 E9/L Normal 1.0-4.0 [facility] Comment on above: Order Comment: Order Added by Juliana Expert. Performed By: #### 1 [id number], [id number] #### [facility] [address] [place] [address] Monocytes/100 WBC (Bld) 6.9 % Normal 4.0-14.0 [facility] Comment on above: Order Comment: Order Added by Discern Expert. Performed By: #### 1 [id number], [id number], [id number] #### [facility] [address] [place] [address] Monocytes/Leukocytes Auto (Bld) [Pure # fraction] 0.7 E9/L Normal 0.2-1.0 [facility] Comment on above: Order Comment: Order Added by Juliana Expert. Performed By: #### 1 [id number], [id number], [id number], [id number] #### [facility] [address] [place] [address] Neutrophils/100 WBC (Bld) 60.3 % Normal 36.0-75.0 [facility] Comment on above: Order Comment: Order Added by Discern Expert. Performed By: #### 1 [id number], [id number] #### [facility] [address] [place] [address] Neutrophils/Leukocyte s Auto (Bld) [Pure # fraction] 6.2 E9/L Normal 2.0-7.5 [facility] [facility] Comment on above: Order Comment: Order Added by Discern Expert. Performed By: #### 1 [id number], [id number], [id number], [id number] #### [facility] [address] [place] [address] BMP 08-31-2023 Anion gap [Moles/Vol] 13 mmol/L Normal 6-16 [facility] Comment on above: Performed By: #### 1 [id number], [id number], [id number], [id number] #### [facility] [address] [place] [address] Calcium [Mass/Vol] 9.4 mg/dL Normal 8.9-11.1 [facility] Comment on above: Performed By: #### 1 [id number], [id number], [id number], [id number] #### [facility] [address] [place] [address] Chloride [Moles/Vol] 107 mmol/L Normal 101-111 [facility] Comment on above: Performed By: #### 1 [id number], 0359683, 0563430, 7288064 #### [facility] [address] [place] [address] CO2 [Moles/Vol] 23 mmol/L Normal 21-31 [facility] Comment on above: Performed By: #### 1 [id number], 6787170, 6632966, 4829267 #### [facility] [address] [place] [address] Creatinine [Mass/Vol] 1.3 mg/dL Normal 0.5-1.3 [facility] Comment on above: Performed By: #### 1 [id number], 0247976, 3477883, 7490582 #### [facility] [address] [place] [address] Glucose [Mass/Vol] 103 mg/dL Normal 55-199 [facility] Comment on above: Result Comment: If t his glucose result represents a fasting glucose, interpretation should refer to the following reference range: 55-99 mg/dL Performed By: #### 1 [id number], 5715619, 3893510, 4908976 #### [facility] [address] [place] [address] Potassium [Moles/Vol] 4.0 mmol/L Normal 3.5-5.3 [facility] Comment on above: Performed By: #### 1 4484618, 6569853, 1793473, 3633684 #### [facility] [address] [place] [address] Sodium [Moles/Vol] 139 mmol/L Normal 135-145 [facility] Comment on above: Performed By: #### 1 4411442, 4677564, 0634960, 7865647 #### [facility] [address] [place] [address] Urea nitrogen [Mass/Vol] 16 mg/dL Normal 5-21 [facility] Comment on above: Performed By: #### 1 9263862, 8374835, 8900341, 2057040 #### [facility] [address] [place] [address] Urea nitrogen/Creatinine [Mass ratio] 12 No Units Normal 10-20 [facility] Comment on above: Performed By: #### 1 8985343, 7460093, 0141798, 1524081 #### [facility] [address] [place] [address] CBC w/ Auto Diffon 3 Erythrocyte distribution width (RBC) [Ratio] 14.8 % High 10.9-14.2 [facility] Comment on above: Performed By: #### 1 [id number], 2389110, 3430200, 7450086 #### [facility] [address] [place] [address] Hematocrit (Bld) [Volume fraction] 45.7 % Normal 37.7-49.0 [facility] Comment on above: Performed By: #### 1 1066215, 2372057, 5854544, 0541934 #### [facility] [address] [place] [address] Hemoglobin (Bld) [Mass/Vol] 15.5 g/dL Normal 13.5-17.5 [facility] Comment on above: Performed By: #### 1 4533036, 4833989, 3869333, 0926726 #### [facility] [address] [place] [address] MCH (RBC) [Entitic mass] 28.4 pg Normal 27.0-34.0 [facility] Comment on above: Performed By: #### 1 2738167, 7309378, 0449756, 4792112 #### [facility] [address] [place] [address] MCHC (RBC) [Mass/Vol] 33.9 g/dL Normal 31.4-36.0 [facility] Comment on above: Performed By: #### 1 4997598, 1283148, 7187997, 5142741 #### [facility] [address] [place] [address] MCV (RBC) [Entitic vol] 83.8 fL Normal 80.0-100.0 [facility] Comment on above: Performed By: #### 1 8321653, 7349650, 4924505, 0663079 #### [facility] [address] [place] [address] Platelet mean volume (Bld) [Entitic vol] 7.9 fL Normal 6.4-10.8 [facility] Comment on above: Performed By: #### 1 5841240, 8323146, 0808120, 2998244 #### [facility] [address] [place] [address] Platelets (Bld) [#/Vol] 270.0 E9/L Normal 150.0-500.0 [facility] Comment on above: Performed By: #### 1 4825276, 0917653, 7836259, 7846816 #### [facility] [address] [place] [address] RBC (Bld) [#/Vol] 5.5 E12/L Normal 4.3-5.9 [facility] Comment on above: Performed By: #### 1 [id number], 6657857, 1531197, 0762222 #### [facility] [address] [place] [address] WBC corrected for nucl RBC Auto (Bld) [#/Vol] 10.3 E9/L Normal 4.0-11.0 [facility] Comment on above: Performed By: #### 1 1395236, 2674634, 5772037, 4606550 #### [facility] [address] [place] [address] CHEMISTRYOrdered By: SYSTEM SYSTEM on 08-31-2023 Anion gap [Moles/Vol] 13 mmol/L Normal 6 - 16 mEq/L [facility] Calcium [Mass/Vol] 9.4 mg/dL Normal 8.9 - 11. 1 mg/dL [facility] Chloride [Moles/Vol] 107 mmol/L Normal 101 - 1 11 mmol/L [facility] CO2 [Moles/Vol] 23 mmol/L Normal 21 - 31 mmol/L [facility] Creatinine [Mass/Vol] 1.3 mg/dL Normal 0.5 - 1.3 mg/dL [facility] Remisol GFR/1.73 sq M.predicted among non-blacks MDRD (S/P/Bld) [Vol rate/Area] 69 mL/min/1.73 m2 Normal >=59mL/min/ 1.73 m2 [facility] Chem S Comment on above: Interpretive Data: C hronic kidney disease could be indicated at eGFR's of less than 60 mL/min/1.73m2. Kidney failure is indicated at less than 15 mL/min/1.73m2. Glucose [Mass/Vol] 103 mg/dL Normal 55 - 199 mg/dL [facility] Comment on above: Interpretive Data: I f this glucose result represents a fasting glucose, interpretation should refer to the following reference range: 55-99 mg/dL Potassium [Moles/Vol] 4.0 mmol/L Normal 3.5 - 5.3 mmol/L [facility] Remisol Sodium [Moles/Vol] 139 mmol/L Normal 135 - 145 mmol/L [facility] Remisol Urea nitrogen [Mass/Vol] 16 mg/dL Normal 5 - 21 mg/dL [facility] Remisol Urea nitrogen/Creatinine [Mass ratio] 12 mg/mg Normal 10 - 20 [facility] Remisol Discharge Instructionson Discharge Instructions [id number] TIFF Normal [facility] Discharge Note-Nursingon Discharge Note-Nursing DENISE LANTIGUA :1980 Visit Date:08/29/2023 Inpatient Discharge Instructions Your Care Team Admitting Physician - Durga Thompson DO Consulting Physician - Frank SERRANO MD Reason for Your Visit STEMI Your Diagnosis STEMI (ST elevation myocardial infarction) Tobacco abuse HTN (hypertension) HLD (hyperlipidemia) Chronic back pain Asthma Neuropathy Other chronic pain Tests Performed Automated Diff Basic Metabolic Panel BMP CBC w/ Auto Diff CBC w/ Indices eGFR Magnesium Level PT & PTT Troponin Troponin 0 Hr. Echo Transthoracic Complete XR Chest Single View This Is Your Medications List [facility] Prescription (work excuse) acetaminophen-oxycodone (Percocet 325 mg-5 mg Tab) acetaminophen-oxycodone (Percocet 5 mg-325 mg oral tablet) albuterol aspirin (aspirin 81 mg Oral EC Tab) atorvastatin (atorvastatin 80 mg Tab) carvedilol (carvedilol 3.125 mg Tab) cyclobenzaprine (cyclobenzaprine 10 mg Tab) furosemide (Lasix 20 mg Tab) gabapentin (gabapentin 300 mg Cap) losartan (losartan 50 mg Tab) ticagrelor (ticagrelor 90 mg oral tablet) [Image Removed: STOP]Stop taking these medications atenolol (atenolol 100 mg Tab) clonidine (cloNIDine 0.1 mg tab) lisinopril (lisinopril 10 mg Tab) rosuvastatin (rosuvastatin 20 mg Tab) Procedure History PCI - Percutaneous coronary intervention (08/29/2023), Discectomy (10/10/2017), Discectomy (11/10/2016), Discectomy (10/10/2015). Discharge Vitals Temperature (Oral) 36.8 ?C Heart Rate (Monitored) 80 Respiratory Rate 16 Blood Pressure 138/96 Weight 78.1 kg What to do next Instructions From Your Doctor Event Name Event Result Pending Diagnostic Test Results None Pharmacy Information [facility] Discharge Instructions Please return to ER if symptoms change or worsen. Please take medication as prescribed. Please follow-up with manufacture specialist as instructed. Please attempt to quit smoking. Previously Scheduled Follow-Up Appointments 2022 2:45 PM EST With: Denise Welch MD Where: [facility] New Follow Up Appointments after Discharge Follow Up with Denise Welch MD When: 09/29/2023 02:45 PM EST Where: [address] [place], [place] Follow Up with KATIE SALGUERO When: 09/06/2023 02:30 PM EST Where: [address] , [address] [address] [facility] (1) Medications What How Much When Instructions Next Dose New aspirin (aspirin 81 mg Oral EC Tab) 1 Tablets By Mouth Every day Pickup at [facility]/pharmacy #[id number] 09/01 @ 9 AM New atorvastatin (atorvastatin 80 mg Tab) 1 Tablets By Mouth Every day Pickup at [facility]/pharmacy #[id number] 09/01 @ 9 AM New carvedilol (carvedilol 3.125 mg Tab) 1 Tablets By Mouth 2 times a day Pickup at [facility]/pharmacy #[id number] 08/31 @ 9 PM New furosemide (Lasix 20 mg Tab) 1 Tablets By Mouth Every day Pickup at [facility]/pharmacy #[id number] 09/01 @ 9 AM New losartan (losartan 50 mg Tab) 0.5 Tablets By Mouth Every day Pickup at [facility]/pharmacy #[id number] 09/01 @ 9 AM New Misc Prescription (work excuse) 0 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 Printed Prescription APPT 09/29 New ticagrelor (ticagrelor 90 mg oral tablet) 1 Tablets By Mouth 2 times a day Pickup at [facility]/pharmacy #[id number] 08/31 @ 9 PM Unchanged acetaminophen-oxycodone (Percocet 325 mg-5 mg Tab) TAKE 1 TABLET BY MOUTH NEEDED UP TO 3 TIMES DAILY NEEDED FOR PAIN, NO DOSES GIVEN TODAY Unchanged albuterol PREVIOUSLY TAKEN, NO DOSES TODAY Unchanged cyclobenzaprine (cyclobenzaprine 10 mg Tab) TAKE 1 TABLET BY MOUTH THREE TIMES A DAY NEEDED NEEDED FOR SPASMS, NO DOSES TODAY Unchanged gabapentin (gabapentin 300 mg Cap) TAKE 3 CAPSULES BY MOUTH 3 TIMES A DAY 08/31 @ 2 PM, 9 PM Pharmacy Information [facility]/pharmacy #[id number]: [address], [place] [id number] [phone] What How Much When Comments Stop Taking atenolol (atenolol 100 mg Tab) 1 Tablets By Mouth Every day Stop Taking clonidine (cloNIDine 0.1 mg tab) TAKE 1 TABLET BY MOUTH TWICE A DAY Stop Taking lisinopril (lisinopril 10 mg Tab) TAKE 1 TABLET BY MOUTH EVERY DAY FOR 90 DAYS Stop Taking rosuvastatin (rosuvastatin 20 mg Tab) TAKE 1 TABLET BY MOUTH EVERY DAY FOR 30 DAYS Test Results CBC BMP WBC: 10.3 E9/L (08/31/23 06:16:00) Glucose Lvl: 103 mg/dL (08/31/23 06:16:00) RBC: 5.5 E12/L (08/31/23 06:16:00) BUN: 16 mg/dL (08/31/23 06:16:00) HGB: 15.5 gm/dL (08/31/23 06:16:00) Creatinine: 1.3 mg/dL (08/31/23 06:16:00) Hct: 45.7 % (08/31/23 06:16:00) BUN/Creat Ratio: 12 (08/31/23 06:16:00) MCV: 83.8 fL (08/31/23 06:16:00) Sodium Lvl: 139 mmol/L (08/31/23 06:16:00) MCH: 28.4 pg (08/31/23 06:16:00) Potassium Lvl: 4 mmol/L (08/31/23 06:16:00) MCHC: 33.9 gm/dL (08/31/23 06:16:00) Chloride: 107 mmol/L (08/31/23 06:16:00) RDW: 14.8 % High (08/31/23 06:16:00) CO2: 23 mmol/L (08/31/23 06:16:00) P (more content not included)... Normal [facility] HEMATOLOGYOrdered By: SYSTEM SYSTEM on 08-31-2023 Basophils/100 WBC (Bld) 1.1 % Normal 0.0 - 2.0 % [facility] Basophils/Leukocytes Auto (Bld) [Pure # fraction] 0.1 E9/L Normal 0.0 - 0.2 E9/L [facility] Eosinophils/100 WBC (Bld) 0.9 % Normal 0.0 - 8.0 % [facility] Eosinophils/Leukocyte s Auto (Bld) [Pure # fraction] 0.1 E9/L Normal 0.0 - 0.5 E9/L [facility] Lymphocytes/100 WBC (Bld) 30.8 % Normal 14.0 - 50.0 % [facility] Lymphocytes/Leukocyte s Auto (Bld) [Pure # fraction] 3.2 E9/L Normal 1.0 - 4.0 E9/L [facility] Monocytes/100 WBC (Bld) 6.9 % Normal 4.0 - 14.0 % [facility] Monocytes/Leukocytes Auto (Bld) [Pure # fraction] 0.7 E9/L Normal 0.2 - 1.0 E9/L [facility] Neutrophils/100 WBC (Bld) 60.3 % Normal 36.0 - 75.0 % [facility] Neutrophils/Leukocyte s Auto (Bld) [Pure # fraction] 6.2 E9/L Normal 2.0 - 7.5 E9/L [facility] HEMATOLOGYOrdered By: Mery Phillips on 08-31-2023 Erythrocyte distribution width (RBC) [Ratio] 14.8 % High 10.9 - 14.2 % [facility] Hematocrit (Bld) [Volume fraction] 45.7 % Normal 37.7 - 49.0 % [facility] Hemoglobin (Bld) [Mass/Vol] 15.5 g/dL Normal 13.5 - 17.5 gm/dL [facility] MCH (RBC) [Entitic mass] 28.4 pg Normal 27.0 - 34.0 pg [facility] MCHC (RBC) [Mass/Vol] 33.9 g/dL Normal 31.4 - 36.0 gm/dL [facility] MCV (RBC) [Entitic vol] 83.8 fL Normal 80.0 - 100.0 fL [facility] Platelet mean volume (Bld) [Entitic vol] 7.9 fL Normal 6.4 - 10.8 fL [facility] Platelets (Bld) [#/Vol] 270.0 E9/L Normal 150.0 - 500.0 E9/L [facility] RBC (Bld) [#/Vol] 5.5 E12/L Normal 4.3 - 5.9 E12/L [facility] WBC corrected for nucl RBC Auto (Bld) [#/Vol] 10.3 E9/L Normal 4.0 - 11.0 E9/L [facility] Inpatient Clinical Summaryon 08-31-2023 Inpatient Clinical Summary [place] [address] Clinical Summary Person Information: Name: DENISE LANTIGUA Age: 43 Years : 1980 Sex: Male PCP: KATIE SALGUERO DO Marital Status: Single Race: White Ethnicity: Non- or Language: Cape Verdean Visit Id: Visit Reason: STEMI Speciality: Acuity: Enc Type: Inpatient Med Service: Medical Arrival: 08/29/2023 16:25:17 Discharge: Dispo Type: Address: [address] [place] [id number] Provider Notes: Diagnosis: 1:STEMI (ST elevation myocardial infarction); 2:Tobacco abuse; 3:HTN (hypertension); 4:HLD (hyperlipidemia); 5:Chronic back pain; 6:Asthma; 7:Neuropathy; Other chronic pain Problems Active Smoker Smoking Status: Current Every Day Smoker Functional Status: Sensory Deficits: History of Falls: Mobility Assistance Prior to Admission: Independent ADLs: Independent Current Level of Assistance for Self-Care/Mobility: Cognitive Status: Oriented x 3 Allergies No Known Medication Allergies Measurements: Height: 172.72 cm Weight: 78.1 kg Blood Pressure: 138 mmHg / 96 mmHg BMI: 25.64 kg/m2 Procedures PCI - Percutaneous coronary intervention (08/29/2023) Immunizations No Immunizations Documented This Visit Final Med List: acetaminophen-oxycodone (Percocet 325 mg-5 mg Tab) TAKE 1 TABLET BY MOUTH NEEDED UP TO 3 TIMES DAILY. acetaminophen-oxycodone (Percocet 5 mg-325 mg oral tablet) albuterol aspirin (aspirin 81 mg Oral EC Tab) 1 Tablets By Mouth every day. Refills: 0. atorvastatin (atorvastatin 80 mg Tab) 1 Tablets By Mouth every day. Refills: 0. carvedilol (carvedilol 3.125 mg Tab) 1 Tablets By Mouth 2 times a day. Refills: 0. cyclobenzaprine (cyclobenzaprine 10 mg Tab) TAKE 1 TABLET BY MOUTH THREE TIMES A DAY NEEDED. furosemide (Lasix 20 mg Tab) 1 Tablets By Mouth every day. Refills: 0. gabapentin (gabapentin 300 mg Cap) TAKE 3 CAPSULES BY MOUTH 3 TIMES A DAY. losartan (losartan 50 mg Tab) 0.5 Tablets By Mouth every day. Refills: 0. Misc Prescription (work excuse) 0. 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 Refills: 0. ticagrelor (ticagrelor 90 mg oral tablet) 1 Tablets By Mouth 2 times a day. Refills: 0. Care Team Members: Attending Physician: Durga Thompson DO Consulting Physician: Frank SERRANO MD Referring Physician: Follow up: With: Address: When: [address], [address] [place] 09/29/2023 2:45 PM With: Address: When: [address] , [address] [address] Business (1) 09/06/2023 2:30 PM Type Location Start [facility] Cardiology Inpatient Follow Up (FT) [facility] 09/29/2023 2:45 PM 09/29/2023 3:00 PM Confirmed Patient Education Information: Cardiac Rehabilitation; Acute Coronary Syndrome Normal [facility] Inpatient Patient Summaryon 08-31-2023 Inpatient Patient Summary [address] [address] Patient Discharge Instructions PERSON INFORMATION Name: DENISE LANTIGUA Date of : 1980 Current Date: 08/31/2023 10:01:13 PHYSICIANS Admitting Physician: Durga Thompson DO Primary Care Physician: KATIE SALGUERO DO PCP Comment: Discharge Diagnosis: 1:STEMI (ST elevation myocardial infarction); 2:Tobacco abuse; 3:HTN (hypertension); 4:HLD (hyperlipidemia); 5:Chronic back pain; 6:Asthma; 7:Neuropathy; Other chronic pain Condition at Discharge: Improved DENISE LANTIGUA has been given the following list of follow-up instructions, prescriptions, and patient education materials: PATIENT FOLLOW-UP INFORMATION Diet: Discharge Activity: Discharge Restrictions: Wound Care Instructions: Remove Your Dressing In Days Call Your Doctor For: IF UNABLE TO CONTACT YOUR PHYSICIAN AND YOU FEEL IT IS AN EMERGENCY, GO TO THE NEAREST EMERGENCY ROOM OR CALL 911 Home Treatment: Devices/Equipment: None Special Services: Additional Instructions: Please return to ER if symptoms change or worsen. Please take medication as prescribed. Please follow-up with manufacture specialist as instructed. Please attempt to quit smoking. Primary Care Physician to provide the following pending test results: None Follow up: With: Address: When: Rebekah RODNEY, Denise Val[address] [place] [address] 09/29/2023 2:45 PM With: Address: When: [address] , [address] [address] Business (1) 09/06/2023 2:30 PM In the event that this physician does not participate in your insurance network, please consult with your insurance company to find a nearby participating provider. Type Location Start [facility] Cardiology Inpatient Follow Up (FT) [facility] [place] 09/29/2023 2:45 PM 09/29/2023 3:00 PM Confirmed Comment: GRZEGORZ Angel RYAN, have received the attached patient education materials/instructions and have verbalized understanding: Patient Signature Date Clinican/Nurse Signature _ Date HERE ARE THE MEDICATION CHANGES THAT OCCURRED DURING YOUR HOSPITAL STAY New Medications [id number], [address] [facility] [place] [id number], [phone] aspirin (aspirin 81 mg Oral EC Tab) 1 Tablets By Mouth every day. Refills: 0. Last Dose: __Next Dose: __ atorvastatin (atorvastatin 80 mg Tab) 1 Tablets By Mouth every day. Refills: 0. Last Dose: __Next Dose: __ carvedilol (carvedilol 3.125 mg Tab) 1 Tablets By Mouth 2 times a day. Refills: 0. Last Dose: __Next Dose: __ furosemide (Lasix 20 mg Tab) 1 Tablets By Mouth every day. Refills: 0. Last Dose: __Next Dose: __ losartan (losartan 50 mg Tab) 0.5 Tablets By Mouth every day. Refills: 0. Last Dose: __Next Dose: __ ticagrelor (ticagrelor 90 mg oral tablet) 1 Tablets By Mouth 2 times a day. Refills: 0. Last Dose: __Next Dose: __ Printed Prescriptions Misc Prescription (work excuse) 0. 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 Refills: 0. Last Dose: __Next Dose: __ Medications to Continue with No Changes Other Medications acetaminophen-oxycodone (Percocet 325 mg-5 mg Tab) TAKE 1 TABLET BY MOUTH NEEDED UP TO 3 TIMES DAILY. Last Dose: __Next Dose: __ acetaminophen-oxycodone (Percocet 5 mg-325 mg oral tablet) Last Dose: __Next Dose: __ albuterol Last Dose: __Next Dose: __ cyclobenzaprine (cyclobenzaprine 10 mg Tab) TAKE 1 TABLET BY MOUTH THREE TIMES A DAY NEEDED. Last Dose: __Next Dose: __ gabapentin (gabapentin 300 mg Cap) TAKE 3 CAPSULES BY MOUTH 3 TIMES A DAY. Last Dose: __Next Dose: __ No Longer Take the Following Medications atenolol (atenolol 100 mg Tab) 1 Tablets By Mouth every day. clonidine (cloNIDine 0.1 mg tab) TAKE 1 TABLET BY MOUTH TWICE A DAY. lisinopril (lisinopril 10 mg Tab) TAKE 1 TABLET BY MOUTH EVERY DAY FOR 90 DAYS. rosuvastatin (rosuvastatin 20 mg Tab) TAKE 1 TABLET BY MOUTH EVERY DAY FOR 30 DAYS. Comment: MEDICATION LIST PROVIDED FOR YOU IS A LIST OF YOUR CURRENT MEDICATIONS. PLEASE CARRY THIS WITH YOU AT ALL TIMES. acetaminophen-oxycodone (Percocet 325 mg-5 mg Tab) TAKE 1 TABLET BY MOUTH NEEDED UP TO 3 TIMES DAILY. acetaminophen-oxycodone (Percocet 5 mg-325 mg oral tablet) albuterol aspirin (aspirin 81 mg Oral EC Tab) 1 Tablets By Mouth every day. Refills: 0. atorvastatin (at (more content not included)... [facility] Insurance Correspondence Off iceon 08-31-2023 Insurance Correspondence Office [id number] TIFF [facility] Interdisciplinary Note - Sunil e Manageron 08-31-2023 Interdisciplinary Note - Patternmaker Sample Pt [place] home prior to rounds with CRM [facility] Comment on above: Result Comment: Elec tronically Signed By: Caesar DELACRUZ, Luzma\.br\Date and Time Signed: 08/31/23 10:52 EST Interdisciplinary Note - Soc ial Workeron 08-31-2023 Interdisciplinary Note - Senior Java Software Developer Amber cost verified through patient's pharmacy; his cost is $25 after insurance. [facility] did not have the medication in stock and if they ordered it, it would not be available until after 6pm on 09/02/23 due to the holiday tomorrow. The pharmacist explained that she could transfer the prescription to [facility] as they did have it in stock; SW requested this be done. SW called patient's room and spoke to his fianceSinai, and let her know the cost and the need to pick it up at [facility], but that they would need to go to the [facility] for the rest of his mediations. She voiced understanding. SW will remain available. [facility] Monitor Recordon 08-31-2023 Monitor Record [id number] TIFF Normal [facility] Prescriptions/Work Noteson 1 10-31-2022 Prescriptions/Work Notes [id number]#1.00 TIFF Normal [facility] Progress Note-Physicianon Progress Note-Physician Subjective Patient doing well this morning, no further chest pain. Telemetry showed normal sinus rhythm, no ventricular arrhythmias. Results of echocardiogram given to the patient. Patient did complain of some mild shortness of breath, perhaps secondary to his Brilinta versus LV dysfunction. Review of Systems Constitutional: no fever, no chills, no weakness, no fatigue Respiratory: no shortness of breath, no cough, no orthopnea, no wheezing Cardiovascular: no chest pain, no palpitations, no edema Neuro: no dizziness no light headed no syncope Additional ROS info: Except as noted in the above Review of Systems and in the History of Present Illness all other systems have been reviewed and are negative or noncontributory. Objective Vitals & Measurements T: 37 ?C(Oral) TMIN: 36.3 ?C(Oral) TMAX: 37 ?C(Oral) HR: 80(Monitored) RR: 16 BP: 118/84 SpO2: 96% WT: 78.1 kg Intake & Output This visit (24 hour periods starting at 07:00 EST) 08/31/23 * 08/30/23 08/29/23 Total Summary Intake mL -- 504 47 Output mL -- -- 1,925 Fluid Balance -- 504 -1,878 Intake (9) Al hydroxide/Mg hydroxide/simethicone mL -- -- 30 Oral Intake mL -- 500 -- atropine/hyoscyamine/PB /scopolamine mL -- -- 10 heparin mL -- -- 1 hydrALAZINE mL -- -- 0.5 hydromorphone mL -- 1 0.5 ketorolac mL -- 1 1 morphine mL -- -- 2 ondansetron mL -- 2 2 Total -- 504 47 Output (1) Urine Voided mL -- -- 1,925 Total -- -- 1,925 Counts (1) Urine Count -- 3 -- * This column has not completed the indicated time period. Physical Exam General: alert, no acute distress Neck: Supple, noJVD nocarotid bruit Cardiovascular: regular rate and rhythm, no murmur normal peripheral perfusion Respiratory: Lungs CTA, respirations non labored Extremities: no edema Neurological: oriented x 4, LOC appropriate for age, sensation equal & normal bilaterally, speech normal Skin: Warm, dry, intact- no rash or concerning lesions Lab Results Glucose Lvl: 153 mg/dL (08/30/23 07:59:00) BUN: 8 mg/dL (08/30/23 07:59:00) Creatinine: 1 mg/dL (08/30/23 07:59:00) eGFR: 95 mL/min/1.73 m2 (08/30/23 07:59:00) BUN/Creat Ratio: 8 Low (08/30/23 07:59:00) Sodium Lvl: 137 mmol/L (08/30/23 07:59:00) Potassium Lvl: 4 mmol/L (08/30/23 07:59:00) Chloride: 102 mmol/L (08/30/23 07:59:00) CO2: 22 mmol/L (08/30/23 07:59:00) AGAP: 17 mEq/L High (08/30/23 07:59:00) Calcium Lvl: 9.9 mg/dL (08/30/23 07:59:00) Troponin: >03499.00 Critical (08/30/23 07:59:00) Diagnostic Results (08/30/2023 10:50 EST Echo Transthoracic Complete) Interpretation Summary No comparison study is available. Ejection Fraction = 40-45%. There is apical anterior wall akinesis There is mid anterior wall severe hypokinesis Grade I diastolic dysfunction, (abnormal relaxation pattern). Right ventricular systolic pressure is 27 mmHg. [1] Assessment/Plan 1. STEMI (ST elevation myocardial infarction) (I21.3: ST elevation (STEMI) myocardial infarction of unspecified site) Patient presented with acute anterior wall myocardial infarction requiring emergent cardiac catheterization and angioplasty and stenting to the LAD. Patient complains of some minimal shortness of breath although this may be secondary to his Brilinta. Patient did have evidence of LV dysfunction both on catheterization and confirmed on echocardiogram with an EF of 40 to 45%. The patient also had elevated LVEDP. There are no other lesions that require further evaluation. Patient will continue his baby aspirin, Brilinta, losartan was started yesterday for afterload reduction and he will continue his Coreg. We will discontinue his lisinopril. He will continue high-dose Lipitor therapy and repeat lipid profile in 6 weeks time. The patient may be discharged home and follow-up with Dr. Putnam in 2 to 4 weeks time. The patient will be enrolled in cardiac rehab and repeat echocardiogram in 3 to 4 months to determine if his LV function has normalized. Recommend starting low-dose Lasix 20 mg p.o. daily to assist with his elevated LVEDP and LV dysfunction and his shortness of breath. 2. Tobacco abuse (Z72.0: Tobacco use) 3. HTN (hypertension) (I10: Essential (primary) hypertension) 4. HLD (hyperlipidemia) (E78.5: Hyperlipidemia, unspecified) 5. Chronic back pain (M54.9: Dorsalgia, unspecified) 6. Asthma (J45.909: Unspecified asthma, uncomplicated) 7. Neuropathy (G62.9: Polyneuropathy, unspecified) Other chronic pain (G89.29: Other chronic pain) Orders: atorvastatin, 80 mg = 2 tab(s), Tab, Oral, Bedtime, Routine, Start date 08/30/23 21:00:00 EST, 08/30/23 7:48:00 EST losartan, 25 mg = 0.5 tab(s), Tab, Oral, Daily, Routine, Start date 08/30/23 9:00:00 EST, 08/30/23 7:47:00 EST Problem List/Past Medical History Ongoing Smoker Historical No qualifying data Medications Inpatient acetaminophen 325 mg Tab, 650 mg= 2 tab (more content not included)... Normal [facility] Comment on above: Result Comment: Elec tronically Signed By: ZACH RODNEY, Frank Curry.anne\Date and Time Signed: 08/31/23 07:11 EST eGFRon 08-31-2023 GFR/1.73 sq M.predicted among non-blacks MDRD (S/P/Bld) [Vol rate/Area] 69 mL/min/1.73 m2 Normal >=59 [facility] Comment on above: Order Comment: Order added by Discern Expert. Result Comment: Book Author yury kidney disease could be indicated at eGFR's of less than 60 mL/min/1.73m2. Kidney failure is indicated at less than 15 mL/min/1.73m2. Performed By: #### 1 [id number], [id number] #### [facility] [address] [place] [address] BMPon 08-30-2023 Creatinine [Mass/Vol] 1.0 mg/dL Normal 0.5-1.3 [facility] Comment on above: Performed By: #### 2 [id number], [id number], [id number] ####[facility] [address] [place] [address] Urea nitrogen [Mass/Vol] 8 mg/dL Normal 5-21 [facility] Comment on above: Performed By: #### 2 [id number], [id number], [id number] ####[facility] [address] [place] [address] Urea nitrogen/Creatinine [Mass ratio] 8 No Units Low 10-20 [facility] Comment on above: Performed By: #### 2 [id number], [id number], [id number] ####[facility] [address] [place] [address] Anion gap [Moles/Vol] 17 mmol/L High 6-16 [facility] Comment on above: Performed By: #### 2 [id number], [id number], [id number] ####[facility] [address] [place] [address] Calcium [Mass/Vol] 9.9 mg/dL Normal 8.9-11.1 [facility] Comment on above: Performed By: #### 2 [id number], [id number], [id number] ####[facility] [address] [place] [address] Chloride [Moles/Vol] 102 mmol/L Normal 101-111 [facility] Comment on above: Performed By: #### 2 [id number], [id number], [id number] ####[facility] [address] [place] [address] CO2 [Moles/Vol] 22 mmol/L Normal 21-31 [facility] Comment on above: Performed By: #### 2 [id number], [id number], [id number] ####[facility] [address] [place] [address] Glucose [Mass/Vol] 153 mg/dL Normal 55-199 [facility] Comment on above: Result Comment: If t his glucose result represents a fasting glucose, interpretation should refer to the following reference range: 55-99 mg/dL Performed By: #### 2 [id number], [id number], [id number] ####[facility] [address] [place] [address] Potassium [Moles/Vol] 4.0 mmol/L Normal 3.5-5.3 [facility] Comment on above: Performed By: #### 2 [id number], [id number], [id number] ####[facility] [address] [place] [address] Sodium [Moles/Vol] 137 mmol/L Normal 135-145 [facility] Comment on above: Performed By: #### 2 [id number], [id number], [id number] ####[facility] [address] [place] [address] Anion gap [Moles/Vol] QNS Invalid Interpretation Code 6-16 [facility] Comment on above: Result Comment: The specimen for this test has been found unacceptable due to quantity insufficient as determined by SW. Sanford was contacted and the following determination was made to redraw the patient. Performed By: #### 1 [id number] #### [facility] [address] [place] [address] Calcium [Mass/Vol] QNS Invalid Interpretation Code 8.9-11.1 [facility] Comment on above: Result Comment: The specimen for this test has been found unacceptable due to quantity insufficient as determined by SW. [place] was contacted and the following determination was made to redraw the patient. Performed By: #### 1 [id number] #### [facility] [address] [place] [address] Chloride [Moles/Vol] QNS Invalid Interpretation Code 101-111 [facility] Comment on above: Result Comment: The specimen for this test has been found unacceptable due to quantity insufficient as determined by SW. [place] was contacted and the following determination was made to redraw the patient. Performed By: #### 1 [id number] #### [facility] [address] [facility] [place] [address] CO2 [Moles/Vol] QNS Invalid Interpretation Code 21-31 [facility] Comment on above: Result Comment: The specimen for this test has been found unacceptable due to quantity insufficient as determined by SW. San[place] was contacted and the following determination was made to redraw the patient. Performed By: #### 1 [id number] #### [facility] [address] [facility] [place] [address] Creatinine [Mass/Vol] QNS Invalid Interpretation Code 0.5-1.3 [facility] Comment on above: Result Comment: The specimen for this test has been found unacceptable due to quantity insufficient as determined by SW. San[facility] was contacted and the following determination was made to redraw the patient. Performed By: #### 1 [id number] #### [facility] [address] [facility] [place] [address] Potassium [Moles/Vol] QNS Invalid Interpretation Code 3.5-5.3 [facility] Comment on above: Result Comment: The specimen for this test has been found unacceptable due to quantity insufficient as determined by SW. [facility] was contacted and the following determination was made to redraw the patient. Performed By: #### 1 [id number] #### [facility] [address] [facility] [place] [address] Sodium [Moles/Vol] QNS Invalid Interpretation Code 135-145 [facility] Comment on above: Result Comment: The specimen for this test has been found unacceptable due to quantity insufficient as determined by SW. [facility] was contacted and the following determination was made to redraw the patient. Performed By: #### 1 [id number] #### [facility] [address] [facility] [address] Urea nitrogen [Mass/Vol] QNS Invalid Interpretation Code 5-21 [facility] Comment on above: Result Comment: The specimen for this test has been found unacceptable due to quantity insufficient as determined by SW. [facility] was contacted and the following determination was made to redraw the patient. Performed By: #### 1 [id number] #### [facility] [address] [place] [address] Urea nitrogen/Creatinine [Mass ratio] QNS Invalid Interpretation Code 10-20 [facility] Comment on above: Result Comment: The specimen for this test has been found unacceptable due to quantity insufficient as determined by SW. San[place] was contacted and the following determination was made to redraw the patient. Performed By: #### 1 [id number] #### [facility] [address] [place] [address] Glucose [Mass/Vol] 113 mg/dL Normal 55-199 [facility] Comment on above: Result Comment: If t his glucose result represents a fasting glucose, interpretation should refer to the following reference range: 55-99 mg/dL Performed By: #### 1 [id number] #### [facility] [address] [place] [address] CBC w/Indiceson 08-30-2023 Erythrocyte distribution width (RBC) [Ratio] 14.5 % High 10.9-14.2 [facility] Comment on above: Performed By: #### 1 [id number] #### [facility] [address] [place] [address] Hematocrit (Bld) [Volume fraction] 51.5 % High 37.7-49.0 [facility] Comment on above: Performed By: #### 1 [id number] #### [facility] [address] [place] [address] Hemoglobin (Bld) [Mass/Vol] 17.5 g/dL Normal 13.5-17.5 [facility] Comment on above: Performed By: #### 1 [id number] #### [facility] [address] [place] [address] MCH (RBC) [Entitic mass] 28.6 pg Normal 27.0-34.0 [facility] Comment on above: Performed By: #### 1 [id number] #### [facility] [address] [place] [address] MCHC (RBC) [Mass/Vol] 34.0 g/dL Normal 31.4-36.0 [facility] Comment on above: Performed By: #### 1 [id number] #### [facility] [address] [place] [address] MCV (RBC) [Entitic vol] 83.9 fL Normal 80.0-100.0 [facility] Comment on above: Performed By: #### 1 [id number] #### [facility] [address] [place] [address] Platelet mean volume (Bld) [Entitic vol] 8.2 fL Normal 6.4-10.8 [facility] Comment on above: Performed By: #### 1 [id number] #### [facility] [address] [place] [address] Platelets (Bld) [#/Vol] 310.0 E9/L Normal 150.0-500.0 [facility] Comment on above: Performed By: #### 1 [id number] #### [facility] [address] [place] [address] RBC (Bld) [#/Vol] 6.1 E12/L High 4.3-5.9 [facility] Comment on above: Performed By: #### 1 [id number] #### [facility] [address] [place] [address] WBC corrected for nucl RBC Auto (Bld) [#/Vol] 15.4 E9/L High 4.0-11.0 [facility] Comment on above: Performed By: #### 1 [id number] #### [facility] [address] [place] [address] CHEMISTRYOrdered By: SYSTEM SYSTEM on 08-30-2023 Anion gap [Moles/Vol] 17 mmol/L High 6 - 16 mEq/L [facility] Calcium [Mass/Vol] 9.9 mg/dL Normal 8.9 - 11. 1 mg/dL [facility] Chloride [Moles/Vol] 102 mmol/L Normal 101 - 1 11 mmol/L [facility] CO2 [Moles/Vol] 22 mmol/L Normal 21 - 31 mmol/L [facility] Creatinine [Mass/Vol] 1.0 mg/dL Normal 0.5 - 1.3 mg/dL [facility] GFR/1.73 sq M.predicted among non-blacks MDRD (S/P/Bld) [Vol rate/Area] 95 mL/min/1.73 m2 Normal >=59mL/min/ 1.73 m2 [facility] Comment on above: Interpretive Data: C hronic kidney disease could be indicated at eGFR's of less than 60 mL/min/1.73m2. Kidney failure is indicated at less than 15 mL/min/1.73m2. Glucose [Mass/Vol] 153 mg/dL Normal 55 - 199 mg/dL [facility] Comment on above: Interpretive Data: I f this glucose result represents a fasting glucose, interpretation should refer to the following reference range: 55-99 mg/dL Potassium [Moles/Vol] 4.0 mmol/L Normal 3.5 - 5.3 mmol/L [facility] Sodium [Moles/Vol] 137 mmol/L Normal 135 - 145 mmol/L [facility] Troponin I.cardiac [Mass/Vol] pg/mL Invalid Interpretation Code 15.90 - 38.40 pg/mL [facility] Comment on above: Result Comment: Resu lt verified by dilution\ Critical Result [id number] Called to DAMON BRUSH at 3N by TALI CALDERON and read back for confirmation at 08/30/2023 09:05:52 Interpretive Data: T he 95% CI (Confidence Interval) PPV (Positive Predictive Value) for myocardial infarction in females is 38 pg/mL, in males 51 pg/mL. The results should be used in conjunction with clinical conditions of myocardial infarction. (Access High Sensitivity Troponin I Instructions For Use, Martina Mansfield, May 2018) Urea nitrogen [Mass/Vol] 8 mg/dL Normal 5 - 21 mg/dL [facility] Urea nitrogen/Creatinine [Mass ratio] 8 mg/mg Low 10 - 20 [facility] Glucose [Mass/Vol] 113 mg/dL Normal 55 - 199 mg/dL [facility] Comment on above: Interpretive Data: I f this glucose result represents a fasting glucose, interpretation should refer to the following reference range: 55-99 mg/dL Magnesium [Mass/Vol] 2.0 mg/dL Normal 1.3 - 2 .4 mg/dL [facility] CHEMISTRYOrdered By: Tali sue on 08-30-2023 Anion gap [Moles/Vol] QNS Invalid Interpretation Code 6 - 16 [facility] Comment on above: Result Comment: The specimen for this test has been found unacceptable due to quantity insufficient as determined by SW. [place] was contacted and the following determination was made to redraw the patient. Calcium [Mass/Vol] QNS Invalid Interpretation Code 8.9 - 11.1 [facility] Comment on above: Result Comment: The specimen for this test has been found unacceptable due to quantity insufficient as determined by SW. San[place] was contacted and the following determination was made to redraw the patient. Chloride [Moles/Vol] QNS Invalid Interpretation Code 101 - 111 [facility] Comment on above: Result Comment: The specimen for this test has been found unacceptable due to quantity insufficient as determined by SW. [facility] was contacted and the following determination was made to redraw the patient. CO2 [Moles/Vol] QNS Invalid Interpretation Code [facility] Comment on above: Result Comment: The specimen for this test has been found unacceptable due to quantity insufficient as determined by SW. Sissy was contacted and the following determination was made to redraw the patient. Creatinine [Mass/Vol] QNS Invalid Interpretation Code 0.5 - 1.3 [facility] Comment on above: Result Comment: The specimen for this test has been found unacceptable due to quantity insufficient as determined by SW. San[place] was contacted and the following determination was made to redraw the patient. GFR/1.73 sq M.predicted among non-blacks MDRD (S/P/Bld) [Vol rate/Area] QNS Invalid Interpretation Code >=59 [facility] Comment on above: Result Comment: The specimen for this test has been found unacceptable due to quantity insufficient as determined by SW. [facility] was contacted and the following determination was made to redraw the patient. Interpretive Data: C hronic kidney disease could be indicated at eGFR's of less than 60 mL/min/1.73m2. Kidney failure is indicated at less than 15 mL/min/1.73m2. Potassium [Moles/Vol] QNS Invalid Interpretation Code 3.5 - 5.3 [facility] Comment on above: Result Comment: The specimen for this test has been found unacceptable due to quantity insufficient as determined by SW. San[place] was contacted and the following determination was made to redraw the patient. Sodium [Moles/Vol] QNS Invalid Interpretation Code 135 - 145 [facility] Comment on above: Result Comment: The specimen for this test has been found unacceptable due to quantity insufficient as determined by SW. San[place] was contacted and the following determination was made to redraw the patient. Urea nitrogen [Mass/Vol] QNS Invalid Interpretation Code 5 - 21 [facility] Comment on above: Result Comment: The specimen for this test has been found unacceptable due to quantity insufficient as determined by SW. San[place] was contacted and the following determination was made to redraw the patient. Urea nitrogen/Creatinine [Mass ratio] QNS Invalid Interpretation Code 10 - 20 [facility] Comment on above: Result Comment: The specimen for this test has been found unacceptable due to quantity insufficient as determined by SW. [facility] was contacted and the following determination was made to redraw the patient. Cardiovascular Reporton 08-11 Cardiovascular Report [id number] TIFF Normal [facility] ED Note-Physicianon 08-30-20 23 ED Note-Physician Basic Information Time Seen: Kevin Peñaloza PA-C 08/29/2023 16:25 History of Present Illness 43-year-old male comes to the ED for evaluation of chest pain. Patient does present via EMS in obvious pain and discomfort. Patient states that he developed chest pain just prior to contacting EMS. Associated shortness of breath. No nausea vomiting. He does have diaphoresis. He denies any history of cardiac disease other than hypertension. His preop EKG demonstrated acute ST elevation and a STEMI alert was initiated at that time. EMS did treat the patient with aspirin Brilinta and nitroglycerin. He denies any recent cough congestion fever or chills. He took a Percocet with no improvement of his pain. Review of Systems A 10 point review of systems is negative except as noted above. Medical and Surgical History: Reviewed and noted Social history: Lives at home Tobacco: Current Physical Exam Nurses notes and vital signs reviewed and patient is not hypoxic. General: Mild to moderate distress with obvious discomfort Skin: Warm, diaphoretic Head: Atraumatic. Neck: No JVD. Eye: Normal conjunctiva. Ears, Nose, Mouth, and Throat: Moist mucous members. Cardiovascular: Strong distal pulses. Normal cardiac rate. No peripheral edema. Chest wall: Respiratory: Respirations are nonlabored. Back: Normal range of motion, no CVA tenderness. Musculoskeletal: Normal ROM with no gross deformity. Gastrointestinal: Soft and nontender. Urological: Neurological: Awake and alert. No focal deficits. Follows commands. GCS 15. Psychiatric: Cooperative. Medical Decision Making Patient presents acute chest pain. EKG does not demonstrate acute ST elevation. He had associated hypotension. He received nitro, aspirin Brilinta by EMS. Is given additional nitroglycerin, morphine and heparin here. He is taken directly to the [facility] for emergent procedure. Critical Care Time: 10 minutes, critical care time is separate from any procedures that are performed. The following was considered in the determination of critical care but not limited to the level medical decision-making, intensive cardiac and/or respiratory monitor, frequent vital sign monitoring, evaluation of laboratory studies, evaluation of a radiographic studies, oxygen monitoring and constant monitoring. Assessment/Plan 1. STEMI (ST elevation myocardial infarction) (I21.3: ST elevation (STEMI) myocardial infarction of unspecified site) Orders: heparin, 5,000 unit(s) = 1 mL, Injection, IV Push, Once, Stop date 08/29/23 16:27:00 EST, STAT, Start date 08/29/23 16:27:00 EST morphine, 4 mg = 1 mL, Injection, IV Push, Once, Stop date 08/29/23 16:26:00 EST, STAT, Start date 08/29/23 16:26:00 EST, 08/29/23 16:26:00 EST nitroglycerin, 0.4 mg = 1 tab(s), Tab, SubLingual, Once, Stop date 08/29/23 16:26:00 EST, STAT, Start date 08/29/23 16:26:00 EST, 08/29/23 16:26:00 EST ondansetron, 4 mg = 2 mL, Injection, IV Push, Once, Stop date 08/29/23 16:26:00 EST, STAT, Start date 08/29/23 16:26:00 EST, 08/29/23 16:26:00 EST Sodium Chloride 0.9% intravenous solution 1,000 mL, 1,000 mL, IV, KVO, STAT, Start date 08/29/23 16:27:00 EST, Total volume (mL): 1,000 Basic Metabolic Panel CBC w/ Auto Diff Communication Order Communication Order CV Cardiovascular CV Coronary IVUS FFR Initial CV Coronary IVUS Initial ED Cardiac Monitoring Oxygen Therapy Place in Status PT & PTT Troponin 0 Hr. Troponin 3 Hr. Troponin 6 Hr. Troponin 9 Hr. XR Chest Single View Disposition Plan Discharge Prescription List Prescriptions No active prescription medications Follow-up No qualifying data available Problem List/Past Medical History Ongoing Smoker Historical No qualifying data Procedure/Surgical History Discectomy (10/10/2017), Discectomy (11/10/2016), Discectomy (10/10/2015). Medications Inpatient heparin 5000 units/mL Inj, 5000 unit(s)= 1 mL, IV Push, Once morphine 4 mg/mL Inj, 4 mg= 1 mL, IV Push, Once NitroStat 0.4 mg Tab, 0.4 mg= 1 tab(s), SubLingual, Once Sodium Chloride 0.9% IV Landy 1000 mL 1,000 mL, 1000 mL, IV Zofran 4 mg/2 mL Injection, 4 mg= 2 mL, IV Push, Once Home albuterol atenolol 100 mg Tab, 100 mg= 1 tab(s), Oral, Daily cloNIDine 0.1 mg tab cyclobenzaprine 10 mg Tab gabapentin 300 mg Cap lisinopril 10 mg Tab Percocet 325 mg-5 mg Tab Percocet 5 mg-325 mg oral tablet rosuvastatin 20 mg Tab Allergies No Known Medication Allergies Social History Tobacco 4 or less cigarettes(less than 1/4 pack)/day in last 30 days Tobacco Use:., 03/09/2022 Lab Results No qualifying data available. Diagnostic Results No qualifying data available. Normal [facility] Comment on above: Result Comment: Elec tronically Signed By: Kevin Peñaloza PA-C\.br\Date and Time Signed: 08/29/23 16:39 EST\.br\Electronically Co-Signed By: Radha Victor DO\.br\Date and Time Co-Signed: 08/30/23 07:29 EST HEMATOLOGYOrdered By: Vale vincent on 08-30-2023 Erythrocyte distribution width (RBC) [Ratio] 14.5 % High 10.9 - 14.2 % [facility] Hematocrit (Bld) [Volume fraction] 51.5 % High 37.7 - 49.0 % [facility] Hemoglobin (Bld) [Mass/Vol] 17.5 g/dL Normal 13.5 - 17.5 gm/dL [facility] MCH (RBC) [Entitic mass] 28.6 pg Normal 27.0 - 34.0 pg [facility] MCHC (RBC) [Mass/Vol] 34.0 g/dL Normal 31.4 - 36.0 gm/dL [facility] MCV (RBC) [Entitic vol] 83.9 fL Normal 80.0 - 100.0 fL [facility] Platelet mean volume (Bld) [Entitic vol] 8.2 fL Normal 6.4 - 10.8 fL [facility] Platelets (Bld) [#/Vol] 310.0 E9/L Normal 150.0 - 500.0 E9/L [facility] RBC (Bld) [#/Vol] 6.1 E12/L High 4.3 - 5.9 E12/L [facility] HemeAutoSS WBC corrected for nucl RBC Auto (Bld) [#/Vol] 15.4 E9/L High 4.0 - 11.0 E9/L [facility] Insurance Correspondence Off iceon 08-30-2023 Insurance Correspondence Office [id number]#1.00 TIFF Normal [facility] Interdisciplinary Note - Sunil e Manageron 08-30-2023 Interdisciplinary Note - Patternmaker Sample Pt is asleep in bed, no family present. previously rounded with Dr. Thompson and await cardiology to see. Possible DC home later today. Pt is currently on brilinta, coupon provided for $5 copay provided at bedside and nursing updated, no further concerns or DC needs identified. CRM following, Probable DC home later today Normal [facility] Comment on above: Result Comment: Elec tronically Signed By: Caesar DELACRUZ, Luzma\.anne\Date and Time Signed: 08/30/23 10:03 EST Magnesiumon 08-30-2023 Magnesium [Mass/Vol] 2.0 mg/dL Normal 1.3-2.4 [facility] Comment on above: Performed By: #### 1 [id number] #### [facility] Laboratory [address] [place] [address] Monitor Recordon 08-30-2023 Monitor Record [id number]#1.00 TIFF Normal [facility] Monitor Record [id number]#1.00 TIFF Normal [facility] Monitor Record [id number]#1.00 TIFF [facility] Monitor Record [id number]#1.00 TIFF Normal [facility] Monitor Record [id number]#1.00 TIFF [facility] Progress Note-Nurseon 2022 Progress Note-Nurse 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 Patient requesting home dose of muscle relaxant at this time. Dr. Rhodes contacted via connect messenger and physician updated to patient condition, vital signs, plan of care, and patient complaint and request. See physician orders. Patient updated to the plan of care and verbalizes understanding. Patient medicated per request with PRN medication and scheduled medication. Safety maintained. Normal [facility] Progress Note-Nurse This nurse was tsai d to the patients room as the patient was having an active episode of chest pain. The patient reported a 7/10 chest pain rating and shortness of breath associated with it. This nurse ordered a stat ECG, gave morphine, and obtained vitals at this time. This nurse then called Dr. Welch and made the doctor aware of what was occuring at this time. The doctor stated to continue to monior the patient for further episodes. The patient stated five minutes after morphine that chest pain went from 7/10 to a 4/10. Will continue to monitor. Normal [facility] Progress Note-Physicianon Progress Note-Physician Assessment/Plan 1. STEMI (ST elevation myocardial infarction) (I21.3: ST elevation (STEMI) myocardial infarction of unspecified site) Patient had cardiac cath 08/29 showing occluded LAD with PCI ? Cardiology consulted and following patient, did discuss care with cardio in detail ? Aspirin 81 mg daily, Brilinta 90 mg twice daily, statin 80 mg daily, coreg 3.125 twice daily, losartan 25 mg daily ?Echo 08/30 ? Telemetry, routine EKGs ? Cardiac diet ?Zofran as needed ? Cardiology would like to monitor patient on telemetry for another 24 hours. Ordered: [facility] Care/Day High 50 Minutes [id number] 2. Tobacco abuse (Z72.0: Tobacco use) Educate patient on tobacco sensation 3. HTN (hypertension) (I10: Essential (primary) hypertension) Monitor ? Continue Coreg 3.125, losartan 25 4. HLD (hyperlipidemia) (E78.5: Hyperlipidemia, unspecified) statin 5. Chronic back pain (M54.9: Dorsalgia, unspecified) Patient normally takes Percocet at home as needed ? We will have as needed morphine available instead at this time 6. Asthma (J45.909: Unspecified asthma, uncomplicated) Incentive spirometer DuoNebs as needed 7. Neuropathy (G62.9: Polyneuropathy, unspecified) Gabapentin Other chronic pain (G89.29: Other chronic pain) Orders: acetaminophen, 650 mg = 2 tab(s), Tab, Oral, q6hr PRN Pain, Routine, Start date 08/29/23 18:36:00 EST, 08/29/23 18:36:00 EST albuterol-ipratropium, 3 mL, Soln-Inh, Inhalation, QID PRN Shortness of breath or wheezing, STAT, Start date 08/29/23 18:36:00 EST aspirin, 81 mg = 1 tab(s), Tab-EC, Oral, Daily, Routine, Start date 08/30/23 9:00:00 EST gabapentin, 900 mg = 3 cap(s), Cap, Oral, TID, Routine, Start date 08/29/23 22:00:00 EST Ambulate with Assistance Basic Metabolic Panel Basic Metabolic Panel Below the Knee Intermittent Pneumatic Compression Device Cardiac Diet Cardiac Diet Cardiac Monitoring CBC w/ Auto Diff eGFR Extra Blue Tube Extra Lav Tube Extra SST Tube Intake and Output Place in Status Pulse Oximetry Referral to Resource Center Resuscitation Status - Full Troponin Vital Signs Weight Subjective Patient seen and examined. Patient did have episode of chest pain at approximately 1 AM that was relieved with morphine. Cardiology was contacted at that time and no additional treatment was needed. Patient states doing better this morning. Patient complains of mild nausea. Objective Vitals & Measurements T: 36.5 ?C(Oral) TMIN: 36.3 ?C(Oral) TMAX: 36.8 ?C(Oral) HR: 85(Monitored) RR: 15 BP: 141/94 SpO2: 95% HT: 172.72 cm WT: 76.5 kg Intake & Output This visit (24 hour periods starting at 07:00 EST) 08/30/23 * 08/29/23 08/28/23 Total Summary Intake mL 2.5 47 -- Output mL -- 1,925 -- Fluid Balance 2.5 -1,878 -- Intake (8) Al hydroxide/Mg hydroxide/simethicone mL -- 30 -- atropine/hyoscyamine/PB /scopolamine mL -- 10 -- heparin mL -- 1 -- hydrALAZINE mL -- 0.5 -- hydromorphone mL 0.5 0.5 -- ketorolac mL -- 1 -- morphine mL -- 2 -- ondansetron mL 2 2 -- Total 2.5 47 -- Output (1) Urine Voided mL -- 1,925 -- Total -- 1,925 -- Counts (0) * This column has not completed the indicated time period. Physical Exam General: Looks well, no acute distress, well-nourished, well-kept, appears mildly anxious Skin: Warm, dry , right wrist radial site dressing appears clean dry and intact Head: No trauma, normocephalic Neck: Trachea midline, supple, negative for JVD Eye: Conjunctive are clear, clear sclera , EOMI ENMT: oral mucosa moist, no lesions or edema nose or external ears Cardiovascular: Regular rate and rhythm, S1-S2 present, negative for murmurs rubs or gallops Respiratory: Lungs clear to auscultation, bilateral symmetric movement, negative for wheezes rales or rhonchi Chest wall: no deformity. Gastrointestinal: Abdomen soft, nontender to palpation, bowel sounds present Back: No tenderness Extremities: Range of motion intact, no edema Neurological: awake, alert, speech normal, cranial nerves II through XII intact, no sensory defects, alert and oriented x3 Psychiatric: cooperative, affect appropriate for age, pleasant Lab Results WBC: 15.4 E9/L High (08/30/23 06:16:00) RBC: 6.1 E12/L High (08/30/23 06:16:00) HGB: 17.5 gm/dL (08/30/23 06:16:00) Hct: 51.5 % High (08/30/23 06:16:00) MCV: 83.9 fL (08/30/23 06:16:00) MCH: 28.6 pg (08/30/23 06:16:00) MCHC: 34 gm/dL (08/30/23 06:16:00) RDW: 14.5 % High (08/30/23 06:16:00) Platelet: 310 E9/L (08/30/23 06:16:00) MPV: 8.2 fL (08/30/23 06:16:00) Neutro Auto: 61.1 % (08/29/23 16:21:00) Lymph Auto: 32.5 % (08/29/23 16:21:00) [place] Auto: 4.6 % (08/29/23 16:21:00) Eos Auto: 0.9 % (08/29/23 16:21:00) Basophil Auto: 0.9 % (08/29/23 16:21:00) Neutro Absolute: 7.6 E9/L High (08/29/23 16:21:00) Lymph Absolute: 4.1 E9/L High (08/29/23 16:21:00) [place] (more content not included)... Normal [facility] Comment on above: Result Comment: Elec tronically Signed By: Durga Thompson DO\.br\Date and Time Signed: 08/30/23 09:32 EST Progress Note-Physician Subjective Patient doing well this morning, telemetry showed normal sinus rhythm, no ventricular ectopy. Patient reports chest pain has improved but not completely resolved. Echo pending. Review of Systems Constitutional: no fever, no chills, no weakness, no fatigue Respiratory: no shortness of breath, no cough, no orthopnea, no wheezing Cardiovascular: no chest pain, no palpitations, no edema Neuro: no dizziness no light headed no syncope Additional ROS info: Except as noted in the above Review of Systems and in the History of Present Illness all other systems have been reviewed and are negative or noncontributory. Objective Vitals & Measurements T: 36.4 ?C(Axillary) TMIN: 36.3 ?C(Oral) TMAX: 36.8 ?C(Oral) HR: 85(Monitored) RR: 15 BP: 141/94 SpO2: 95% HT: 172.72 cm WT: 76.5 kg Intake & Output This visit (24 hour periods starting at 07:00 EST) 08/30/23 * 08/29/23 08/28/23 Total Summary Intake mL -- 47 -- Output mL -- 1,925 -- Fluid Balance -- -1,878 -- Intake (8) Al hydroxide/Mg hydroxide/simethicone mL -- 30 -- atropine/hyoscyamine/PB /scopolamine mL -- 10 -- heparin mL -- 1 -- hydrALAZINE mL -- 0.5 -- hydromorphone mL -- 0.5 -- ketorolac mL -- 1 -- morphine mL -- 2 -- ondansetron mL -- 2 -- Total -- 47 -- Output (1) Urine Voided mL -- 1,925 -- Total -- 1,925 -- Counts (0) * This column has not completed the indicated time period. Physical Exam General: alert, no acute distress Neck: Supple, noJVD nocarotid bruit Cardiovascular: regular rate and rhythm, no murmur normal peripheral perfusion Respiratory: Lungs CTA, respirations non labored Extremities: no edema Neurological: oriented x 4, LOC appropriate for age, sensation equal & normal bilaterally, speech normal Skin: Warm, dry, intact- no rash or concerning lesions Lab Results WBC: 15.4 E9/L High (08/30/23 06:16:00) RBC: 6.1 E12/L High (08/30/23 06:16:00) HGB: 17.5 gm/dL (08/30/23 06:16:00) Hct: 51.5 % High (08/30/23 06:16:00) MCV: 83.9 fL (08/30/23 06:16:00) MCH: 28.6 pg (08/30/23 06:16:00) MCHC: 34 gm/dL (08/30/23 06:16:00) RDW: 14.5 % High (08/30/23 06:16:00) Platelet: 310 E9/L (08/30/23 06:16:00) MPV: 8.2 fL (08/30/23 06:16:00) Neutro Auto: 61.1 % (08/29/23 16:21:00) Lymph Auto: 32.5 % (08/29/23 16:21:00) [place] Auto: 4.6 % (08/29/23 16:21:00) Eos Auto: 0.9 % (08/29/23 16:21:00) Basophil Auto: 0.9 % (08/29/23 16:21:00) Neutro Absolute: 7.6 E9/L High (08/29/23 16:21:00) Lymph Absolute: 4.1 E9/L High (08/29/23 16:21:00) [place] Absolute: 0.6 E9/L (08/29/23 16:21:00) Eos Absolute: 0.1 E9/L (08/29/23 16:21:00) Basophil Absolute: 0.1 E9/L (08/29/23 16:21:00) PT: 11.5 second(s) (08/29/23 16:21:00) INR: 1 (08/29/23 16:21:00) PTT: 31.6 second(s) (08/29/23 16:21:00) Glucose Lvl: 113 mg/dL (08/30/23 06:16:00) BUN: QNS (08/30/23 06:16:00) Creatinine: QNS (08/30/23 06:16:00) eGFR: QNS (08/30/23 06:16:00) BUN/Creat Ratio: QNS (08/30/23 06:16:00) Sodium Lvl: QNS (08/30/23 06:16:00) Potassium Lvl: QNS (08/30/23 06:16:00) Chloride: QNS (08/30/23 06:16:00) CO2: QNS (08/30/23 06:16:00) AGAP: QNS (08/30/23 06:16:00) Calcium Lvl: QNS (08/30/23 06:16:00) Magnesium: 2 mg/dL (08/30/23 06:16:00) Troponin: 132.4 pg/mL Critical (08/29/23 16:21:00) Assessment/Plan 1. STEMI (ST elevation myocardial infarction) (I21.3: ST elevation (STEMI) myocardial infarction of unspecified site) Patient presented with acute anterior wall myocardial infarction underwent emergent cardiac catheterization angioplasty and stenting of his mid LAD with nonobstructive disease of his left circumflex and right coronary artery. LVEF was 45-50%, and echocardiogram is pending. Patient will continue his aspirin, Brilinta, and Coreg, and we will start the patient on Lipitor 80 mg p.o. nightly and Cozaar 25 mg p.o. daily for hypertension and afterload reduction. Patient undergo a 2D echo with Doppler today to document his LV function and repeat echocardiogram in 3 to 4 months time after cardiac rehab has been completed. Recommended the patient to discontinue all alcohol and tobacco products. Continue telemetry for 1 more day. 2. Tobacco abuse (Z72.0: Tobacco use) 3. HTN (hypertension) (I10: Essential (primary) hypertension) 4. HLD (hyperlipidemia) (E78.5: Hyperlipidemia, unspecified) 5. Chronic back pain (M54.9: Dorsalgia, unspecified) 6. Asthma (J45.909: Unspecified asthma, uncomplicated) 7. Neuropathy (G62.9: Polyneuropathy, unspecified) Other chronic pain (G89.29: Other chronic pain) Problem List/Past Medical History Ongoing Smoker Historical No qualifying data Medications Inpatient acetaminophen 325 mg Tab, 650 mg= 2 tab(s), Oral, q6hr, PRN acetaminophen 325 mg Tab, 325 mg= 1 tab(s), Oral, q6hr, PRN acetaminophen 325 mg Tab, 650 mg= 2 tab(s), Oral, q6hr, PRN acetaminophen-oxycodone 325 mg-5 mg Tab, 2 tab(s), Oral, q (more content not included)... Normal [facility] Comment on above: Result Comment: Elec tronically Signed By: ZACH RODNEY, Frank Westbrook\.br\Date and Time Signed: 08/30/23 07:50 EST Troponinon 08-30-2023 Troponin I.cardiac [Mass/Vol] ng/mL Abnormal 15.90-38.40 [facility] Comment on above: Result Comment: Resu lt verified by dilution\ Critical Result I_hsTnI:[id number] Called to DAMON BRUSH at 3N by TALI CALDERON and read back for confirmation at 08/30/2023 09:05:52 The 95% CI (Confidence Interval) PPV (Positive Predictive Value) for myocardial infarction in females is 38 pg/mL, in males 51 pg/mL. The results should be used in conjunction with clinical conditions of myocardial infarction. (Access High Sensitivity Troponin I Instructions For Use, Admitly, May 2018) Performed By: #### 1 [id number] #### [facility] Laboratory [address] [place] [address] eGFRon 08-30-2023 GFR/1.73 sq M.predicted among non-blacks MDRD (S/P/Bld) [Vol rate/Area] 95 mL/min/1.73 m2 Normal >=59 [facility] Comment on above: Order Comment: Order added by Discern Expert. Result Comment: Book Author yury kidney disease could be indicated at eGFR's of less than 60 mL/min/1.73m2. Kidney failure is indicated at less than 15 mL/min/1.73m2. Performed By: #### 1 [id number] #### [facility] Laboratory [address] [place] [address] GFR/1.73 sq M.predicted among non-blacks MDRD (S/P/Bld) [Vol rate/Area] QNS Invalid Interpretation Code >=59 [facility] Comment on above: Order Comment: Order added by Discern Expert. Result Comment: The specimen for this test has been found unacceptable due to quantity insufficient as determined by LARRY. Sissy was contacted and the following determination was made to redraw the patient. Chronic kidney disease could be indicated at eGFR's of less than 60 mL/min/1.73m2. Kidney failure is indicated at less than 15 mL/min/1.73m2. Performed By: #### 1 [id number] #### [facility] Laboratory [address] [place] [address] Auto Diffon 08-29-2023 Basophils/100 WBC (Bld) 0.9 % Normal 0.0-2.0 [facility] Comment on above: Order Comment: Order Added by Discern Expert. Performed By: #### 2 051235, [id number], 60073307, 96570974, 1979163, 6094235 #### [facility] [address] [place] [address] Basophils/Leukocytes Auto (Bld) [Pure # fraction] 0.1 E9/L Normal 0.0-0.2 [facility] Comment on above: Order Comment: Order Added by Discern Expert. Performed By: #### 2 749232, 86767369, 78337609, 46054344, 8983413, 7652261 #### [facility] [address] [place] [address] Eosinophils/100 WBC (Bld) 0.9 % Normal 0.0-8.0 [facility] Comment on above: Order Comment: Order Added by Discern Expert. Performed By: #### 2 928336, 56900632, 16217176, 22707744, 0297379, 7874836 #### [facility] [address] [place] [address] Eosinophils/Leukocyte s Auto (Bld) [Pure # fraction] 0.1 E9/L Normal 0.0-0.5 [facility] Comment on above: Order Comment: Order Added by Discern Expert. Performed By: #### 2 872492, 14286408, 93140859, 44486148, 9516382, 3131925 #### [facility] [address] [place] [address] Lymphocytes/100 WBC (Bld) 32.5 % Normal 14.0-50.0 [facility] Comment on above: Order Comment: Order Added by Discern Expert. Performed By: #### 2 962718, 05298201, 27582190, 89168668, 5032720, 4806642 #### [facility] [address] [place] [address] Lymphocytes/Leukocyte s Auto (Bld) [Pure # fraction] 4.1 E9/L High 1.0-4.0 [facility] Comment on above: Order Comment: Order Added by Discern Expert. Performed By: #### 2 311385, 07887812, 07899746, 51441984, 1921568, 1790107 #### [facility] [address] [place] [address] Monocytes/100 WBC (Bld) 4.6 % Normal 4.0-14.0 [facility] Comment on above: Order Comment: Order Added by Juliana Expert. Performed By: #### 2 313746, 30560582, 64776798, 03604440, 2375832, 3185971 #### [facility] [address] [place] [address] Monocytes/Leukocytes Auto (Bld) [Pure # fraction] 0.6 E9/L Normal 0.2-1.0 [facility] Comment on above: Order Comment: Order Added by Juliana Expert. Performed By: #### 2 016822, 23627361, 94998333, 00590174, 2580345, 4349610 #### [facility] [address] [place] [address]85 Neutrophils/100 WBC (Bld) 61.1 % Normal 36.0-75.0 [facility] Comment on above: Order Comment: Order Added by Juliana Expert. Performed By: #### 2 494905, 47709486, 63649043, 71094729, 4490930, 9028465 #### [facility] [address] [place] [address] Neutrophils/Leukocyte s Auto (Bld) [Pure # fraction] 7.6 E9/L High 2.0-7.5 [facility] Comment on above: Order Comment: Order Added by Discern Expert. Performed By: #### 2 155653, 24164777, 85290274, 64471661, 8071341, 6794818 #### [facility] [address] [place] [address] BMPon 08-29-2023 Creatinine [Mass/Vol] 1.1 mg/dL Normal 0.5-1.3 [facility] Comment on above: Performed By: #### 2 880222, 78684087, 69258441, 83149053, 9066419, 4373092 ####[facility] [address] [place] [address] Urea nitrogen [Mass/Vol] 7 mg/dL Normal 5-21 [facility] Comment on above: Performed By: #### 2 411196, 02992315, 12898237, 53963529, 9886964, 4805022 ####[facility] [address] [place] [address] Urea nitrogen/Creatinine [Mass ratio] 6 No Units Low 10-20 [facility] Comment on above: Performed By: #### 2 037653, 43588778, 26438729, 29079209, 2706210, 3055167 ####[facility] [address] [place] [address] Anion gap [Moles/Vol] 17 mmol/L High 6-16 [facility] Comment on above: Performed By: #### 2 172284, 07344858, 61998648, 28567193, 9315998, 2223705 ####[facility] [address] [place] [address] Calcium [Mass/Vol] 9.8 mg/dL Normal 8.9-11.1 [facility] Comment on above: Performed By: #### 2 844501, 92656990, 53683145, 58638813, 1002903, 5768403 ####[facility] [address] [place] [address] Chloride [Moles/Vol] 101 mmol/L Normal 101-111 [facility] Comment on above: Performed By: #### 2 821525, 04113732, 43986537, 15990919, 9422156, 4479559 ####[facility] [address] [place] [address] CO2 [Moles/Vol] 23 mmol/L Normal 21-31 [facility] Comment on above: Performed By: #### 2 904732, 12476943, 57978177, 59998369, 1448170, 0303180 ####[facility] [address] [place] [address] Glucose [Mass/Vol] 145 mg/dL Normal 55-199 [facility] Comment on above: Result Comment: If t his glucose result represents a fasting glucose, interpretation should refer to the following reference range: 55-99 mg/dL Performed By: #### 2 732509, 64134115, 17261317, 14007846, 4924490, 0813436 ####[facility] [address] [place] [address] Potassium [Moles/Vol] 3.5 mmol/L Normal 3.5-5.3 [facility] Comment on above: Performed By: #### 2 620044, 94775018, 50278308, 75769629, 3708745, 5388441 ####[facility] [address] [place] [address] Sodium [Moles/Vol] 137 mmol/L Normal 135-145 [facility] Comment on above: Performed By: #### 2 777297, 52042440, 60124943, 43991817, 0728310, 2365652 ####[facility] [address] [place] [address] CBC w/ Auto Diffon 3 Erythrocyte distribution width (RBC) [Ratio] 14.7 % High 10.9-14.2 [facility] Comment on above: Performed By: #### 2 720676, 10418190, 32327961, 00370033, 0745676, 5162210 #### [facility] [address] [place] [address] Hematocrit (Bld) [Volume fraction] 44.9 % Normal 37.7-49.0 [facility] Comment on above: Performed By: #### 2 523524, 50276456, 90485426, 80890446, 8755712, 4677724 #### [facility] [address] [place] [address] Hemoglobin (Bld) [Mass/Vol] 15.1 g/dL Normal 13.5-17.5 [facility] Comment on above: Performed By: #### 2 161480, 31082862, 90422117, 34505399, 1512884, 4866560 #### [facility] [address] [place] [address] MCH (RBC) [Entitic mass] 28.0 pg Normal 27.0-34.0 [facility] Comment on above: Performed By: #### 2 677324, 09479326, 24298193, 92487765, 3715236, 2124227 #### [facility] [address] [place] [address] MCHC (RBC) [Mass/Vol] 33.7 g/dL Normal 31.4-36.0 [facility] Comment on above: Performed By: #### 2 667933, 02635680, 83136885, 49830712, 9813923, 7422733 #### [facility] [address] [place] [address] MCV (RBC) [Entitic vol] 83.2 fL Normal 80.0-100.0 [facility] Comment on above: Performed By: #### 2 896046, 57632700, 47672345, 13305776, 1133984, 1977759 #### [facility] [address] [place] [address] Platelet mean volume (Bld) [Entitic vol] 8.1 fL Normal 6.4-10.8 [facility] Comment on above: Performed By: #### 2 522257, 67367911, 98006155, 66854289, 0489155, 5011754 #### [facility] [address] [place] [address] Platelets (Bld) [#/Vol] 346.0 E9/L Normal 150.0-500.0 [facility] Comment on above: Performed By: #### 2 919999, 32811792, 73332939, 15648565, 0915842, 6908440 #### [facility] [address] [place] [address] RBC (Bld) [#/Vol] 5.4 E12/L Normal 4.3-5.9 [facility] Comment on above: Performed By: #### 2 823940, 97216787, 76095980, 48700722, 3296664, 2209310 #### [facility] [address] [place] [address] WBC corrected for nucl RBC Auto (Bld) [#/Vol] 12.5 E9/L High 4.0-11.0 [facility] Comment on above: Performed By: #### 2 868133, 47467731, 83055414, 63950795, 1203113, 5543807 #### [facility] [address] [place] [address] CHEMISTRYOrdered By: SYSTEM SYSTEM on 08-29-2023 Troponin I.cardiac [Mass/Vol] 132.40 pg/mL Invalid Interpretation Code 15.90 - 38.40 pg/mL [facility] Comment on above: Result Comment: Crit ica Result I_hsTnI:132.4 Called to PK PUGH at by DIONICIO COYNE and read back for confirmation at 08/29/2023 17:26:42\Critical Result verified by repeat analysis Interpretive Data: T he 95% CI (Confidence Interval) PPV (Positive Predictive Value) for myocardial infarction in females is 38 pg/mL, in males 51 pg/mL. The results should be used in conjunction with clinical conditions of myocardial infarction. (Access High Sensitivity Troponin I Instructions For Use, Martina Nedra, May 2018) COAGULATIONOrdered By: Samantha Jerry on 08-29-2023 aPTT Coag (PPP) [Time] 31.6 s Normal 25.1 - 36.5 second(s) [facility] Comment on above: Interpretive Data: P arameter 15 days - 4 weeks 1 - 5 months 6 - 11 months 1 - 5 years 6 - 10 years 11 - 17 years PTT Mean: 35.4 (27.6-45.6) Mean: 33.5 (24.8-40.7) Mean: 32.4 (25.1-40.7) Mean: 31.6 (24.0-39.2) Mean: 31.6 (26.9-38.7) Mean: 31.0 (24.6-38.4) Pediatric Reference ranges were obtained from a study by kelvin Melendrez prepared from 1437 samples obtained at 7 different centers using the same coagulation reagent and instrumentation as [facility]. Currently there are no coagulation studies available worldwide for children to 14 days, and no normal ranges. Heparin therapeutic range (represented by Anti-Factor Xa activity of 0.2 - 0.4 U/mL) corresponds to PTT of 56.6 - 109.0 sec. INR Coag (PPP) [Relative time] 1.0 {INR} Invalid Interpretation Code [facility] Comment on above: Interpretive Data: I NR results are specifically intended to assess patients stabilized on long-term Anticoagulation therapy suggested INR s Less Intensive Anticoagulation 2.0 3.0 Conventional Range 3.0 4.5 PT Coag (PPP) [Time] 11.5 s Normal 9.4 - 1 2.5 second(s) [facility] Comment on above: Interpretive Data: 1 5 days - 4 weeks 1 - 5 months 6 -11 months 1 5 years 6 10 years 11 -17 years Mean: 11.2 (9.5 12.6) Mean: 11.0 (9.7 12.8) Mean: 11.0 (9.8 13.0) Mean: 11.3 (9.9 13.4) Mean: 11.7 (10.0 14.6) Mean: 11.8 (10.0 - 14.1) Pediatric Reference ranges were obtained from a study by Osman Coahoma, et al. prepared from 1437 samples obtained at 7 different centers using the same coagulation reagent and instrumentation as [facility]. Currently there are no coagulation studies available worldwide for children to 14 days, and no normal ranges. Cardiovascular Reporton 08-11 Cardiovascular Report [id number] TIFF Normal [facility] Consent for Treatmenton 08-11 Consent for Treatment [id number] IFF Normal [facility] HEMATOLOGYOrdered By: SYSTEM SYSTEM on 08-29-2023 Basophils/100 WBC (Bld) 0.9 % Normal 0.0 - 2.0 % [facility] Basophils/Leukocytes Auto (Bld) [Pure # fraction] 0.1 E9/L Normal 0.0 - 0.2 E9/L [facility] Eosinophils/100 WBC (Bld) 0.9 % Normal 0.0 - 8.0 % [facility] Eosinophils/Leukocyte s Auto (Bld) [Pure # fraction] 0.1 E9/L Normal 0.0 - 0.5 E9/L [facility] Lymphocytes/100 WBC (Bld) 32.5 % Normal 14.0 - 50.0 % [facility] Lymphocytes/Leukocyte s Auto (Bld) [Pure # fraction] 4.1 E9/L High 1.0 - 4.0 E9/L [facility] Monocytes/100 WBC (Bld) 4.6 % Normal 4.0 - 14.0 % [facility] Monocytes/Leukocytes Auto (Bld) [Pure # fraction] 0.6 E9/L Normal 0.2 - 1.0 E9/L [facility] Neutrophils/100 WBC (Bld) 61.1 % Normal 36.0 - 75.0 % [facility] Neutrophils/Leukocyte s Auto (Bld) [Pure # fraction] 7.6 E9/L High 2.0 - 7.5 E9/L [facility] HEMATOLOGYOrdered By: Coty Romano on 08-29-2023 Erythrocyte distribution width (RBC) [Ratio] 14.7 % High 10.9 - 14.2 % [facility] Hematocrit (Bld) [Volume fraction] 44.9 % Normal 37.7 - 49.0 % [facility] Hemoglobin (Bld) [Mass/Vol] 15.1 g/dL Normal 13.5 - 17.5 gm/dL [facility] MCH (RBC) [Entitic mass] 28.0 pg Normal 27.0 - 34.0 pg [facility] MCHC (RBC) [Mass/Vol] 33.7 g/dL Normal 31.4 - 36.0 gm/dL [facility] MCV (RBC) [Entitic vol] 83.2 fL Normal 80.0 - 100.0 fL [facility] Platelet mean volume (Bld) [Entitic vol] 8.1 fL Normal 6.4 - 10.8 fL [facility] Platelets (Bld) [#/Vol] 346.0 E9/L Normal 150.0 - 500.0 E9/L [facility] RBC (Bld) [#/Vol] 5.4 E12/L Normal 4.3 - 5.9 E12/L [facility] WBC corrected for nucl RBC Auto (Bld) [#/Vol] 12.5 E9/L High 4.0 - 11.0 E9/L [facility] Operative Reporton 3 Operative Report Indication for Surge ry Anterolateral STEMI Preoperative Diagnosis Known CAD presumed occluded LAD Postoperative Diagnosis Confirmed CAD and occluded mid LAD Primary PCI of the mid LAD with MARLY x1 Ischemic cardiomyopathy EF 40 to 45% Operation Coronary angiography Left ventriculography Hemodynamic measurements of the left ventricle PCI of the mid LAD with MARLY x1 This note is completed immediately following the procedure the date and time of this procedure are the same as this note. Surgeon(s) Denise Welch MD Anesthesia Conscious sedation Estimated Blood Loss Trivial Findings LMT: Large caliber left main trunk with 30% stenosis and bifurcation LAD: Proximal ectasia and large caliber with 100% mid stenosis, reaches the apex and beyond to the distal inferior wall. LCx: Proximal ectasia and large caliber with diffuse mild to moderate disease and 50% distal stenosis, reaches the lateral wall. Codominant RCA: Medium caliber with 50% mid stenosis, codominant, reaches the basal inferior wall. Hemodynamics: Elevated LVEDP at 20 to 23 mmHg with no gradient across the aortic valve. Left ventriculography: Abnormal LV systolic function, EF 40-45 %, apical wall motion abnormalities and normal chamber size with no mitral regurgitation. PCI note: Success PCI mid LAD 100% stenosed CATIE 0 flow reduced to 0% residual CATIE-3 flow after plantation of a Xience 3.5/23 postdilated 3.5 NC at high pressure. Conclusions: Anterolateral STEMI due to plaque rupture and acute IL of the mid LAD, status post primary PCI with MARLY x1. CAD: DAPT, beta-alfonzo, statin, risk factor modification. Importance of antiplatelet compliance was emphasized including risk of stent thrombosis or . The patient understands as well as his accompanying family member/friend that the patient may have stent thrombosis or heart attack and the patient agrees. I myself have specifically counseled the patient regarding stent thrombosis risk including and the patient will additionally be counseled by the Substitute School Nurse team and in follow-up. Complications Sustained ventricular tachycardia after reperfusion, spontaneously converted Technique Following full and informed consent the patient was brought to the Substitute School Nurse where sterile prep and drape were administered in usual fashion. Anesthesia was obtained in the right wrist with lidocaine after administration of conscious sedation. A 5/6 slender Terumo sheath was placed in the right radial artery without complication. Nitroglycerin and nicardipine were given via the sheath and heparin was given intravenously. A 6 Belgian XB3.5 catheter was advanced and selectively engaged in the left main coronary artery. A wire was advanced across the lesion of the mid LAD. The lesion was dilated with a compliant balloon, stented with a drug-eluting stent X 1, and postdilated with a noncompliant balloon at high pressure. Completion angiography was performed in orthogonal projections with the wire and balloon removed. The guide catheter was removed without event. 3 DRC was used to selectively engage the right coronary artery each, where selective injections were performed. A pigtail catheter was placed in the left ventricle where hemodynamic measurements the left ventricle were made and a bolus was given for left ventriculography. A pullback gradient was obtained. The sheath was removed with hemostasis obtained by D-Stat radial device at the end of the procedure without complication. Normal [facility] Comment on above: Result Comment: Elec tronically Signed By: Rebekah RODNEY, Denise Valdez\.br\Date and Time Signed: 08/29/23 20:59 EST PT & PTTon 08-29-2023 aPTT Coag (PPP) [Time] 31.6 second(s) Normal 25.1-36.5 [facility] Comment on above: Result Comment: Para meter 15 days - 4 weeks 1 - 5 months 6 - 11 months 1 - 5 years 6 - 10 years 11 - 17 years PTT Mean: 35.4 (27.6-45.6) Mean: 33.5 (24.8-40.7) Mean: 32.4 (25.1-40.7) Mean: 31.6 (24.0-39.2) Mean: 31.6 (26.9-38.7) Mean: 31.0 (24.6-38.4) Pediatric Reference ranges were obtained from a study by Osman Arambula et al. prepared from 1437 samples obtained at 7 different centers using the same coagulation reagent and instrumentation as [facility]. Currently there are no coagulation studies available worldwide for children to 14 days, and no normal ranges. Heparin therapeutic range (represented by Anti-Factor Xa activity of 0.2 - 0.4 U/mL) corresponds to PTT of 56.6 - 109.0 sec. Performed By: #### 2 [id number], [id number], [id number], [id number], [id number] ####[facility] [address] [place] [address] INR Coag (PPP) [Relative time] 1.0 {INR} Invalid Interpretation Code [facility] Comment on above: Result Comment: INR results are specifically intended to assess patients stabilized on long-term Anticoagulation therapy suggested INR?s ?Less Intensive Anticoagulation? 2.0 ? 3.0 Conventional Range 3.0 ? 4.5 Performed By: #### 2 [id number] ####[facility] [address] [place] [address] PT Coag (PPP) [Time] 11.5 second(s) Normal 9.4-12.5 [facility] Comment on above: Result Comment: 15 d ays - 4 weeks 1 - 5 months 6 -11 months 1 ? 5 years 6 ? 10 years 11 -17 years Mean: 11.2 (9.5 ? 12.6) Mean: 11.0 (9.7 ? 12.8) Mean: 11.0 (9.8 ? 13.0) Mean: 11.3 (9.9 ? 13.4) Mean: 11.7 (10.0 ? 14.6) Mean: 11.8 (10.0 - 14.1) Pediatric Reference ranges were obtained from a study by Osman Arambula et al. prepared from 1437 samples obtained at 7 different centers using the same coagulation reagent and instrumentation as [facility]. Currently there are no coagulation studies available worldwide for children to 14 days, and no normal ranges. Performed By: #### 2 [id number], [id number], [id number], [id number] ####[facility] [address] [place] [address] Pre-Arrival Noteon Pre-Arrival Note Pre-Arrival Summary Name: , [facility] Current Date: 08/29/2023 16:25:38 EST Gender: Date of : Age: 43 Pre-Arrival Type: EMS ETA: 08/29/2023 16:48:00 EST Primary Care Physician: Presenting Problem: STEMI Pre-Arrival User: Olive Mcdonald RN Referring Source: Location: Completion Date/Time: 08/29/2023 16:19:00 [facility] Emergency Department Pre-Hospital Report Form Vital Signs: Pre-Hospital Report: Treatment in Route: Response to Treatment: Misc. Issues: Normal [facility] Progress Note-Nurseon 2022 Progress Note-Nurse Report complete and patient resting in bed with frequent visitors at the bedside. Patient is alert and oriented, denies chest pain/pressure, dyspnea, GI upset, and overall discomfort. 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 Right radial cath site free of hematoma and complications. Hemostasis band and arm board intact. MIVF continued and patient denies and bowel and bladder difficulties. Patient education provided in regard to cath insertion site complication, S/S o cardiac compromise, and overall plan of care. Patient verbalizes understanding. Call light within reach, bed locked and low, and safety maintained. Normal [facility] Troponin 0 Hr.on 08-29-2023 Troponin I.cardiac [Mass/Vol] 132.40 pg/mL Abnormal 15.90-38.40 [facility] Comment on above: Result Comment: Crit ical Result I_hsTnI:132.4 Called to [facility] at ER by DIONICIO COYNE and read back for confirmation at 08/29/2023 17:26:42\Critical Result verified by repeat analysis The 95% CI (Confidence Interval) PPV (Positive Predictive Value) for myocardial infarction in females is 38 pg/mL, in males 51 pg/mL. The results should be used in conjunction with clinical conditions of myocardial infarction. (Access High Sensitivity Troponin I Instructions For Use, Admitly, May 2018) Performed By: #### 2 [id number], [id number], [id number], [id number], [id number] ####[facility] [address] [place] [address] XR Chest Single Viewon 08-29 XR Chest Single View Exam Date/Time: 08/29/2023 16:50 EST Reason for Exam: Chest pain Report IMPRESSION: There are no acute cardiopulmonary changes. CLINICAL HISTORY: Chest pain EXAMINATION: XR Chest Single View COMPARISON: FINDINGS: The cardiomediastinal silhouette is unremarkable. The lungs are free of infiltrates effusions or consolidations. Low inspiratory volume study with bronchovascular crowding. There are no acute osseous changes. There are electrode leads in the mid thoracic spine. Ordering Provider: Kevin Peñaloza FINAL REPORT Dictated: 08/29/2023 4:52 pm Shimon Perry MD, V. Signed (Electronic Signature): 08/29/2023 4:52 pm Signed by: Shimon Perry MD, V. Transcribed by: ERNESTINE Technologist: CHUYITA Technical Comments Radiation Dose: Ka,r in mGy = na DAP = na Normal [facility] eGFRon 08-29-2023 GFR/1.73 sq M.predicted among non-blacks MDRD (S/P/Bld) [Vol rate/Area] 84 mL/min/1.73 m2 Normal >=59 [facility] Comment on above: Order Comment: Order added by Discern Expert. Result Comment: Book Author yury kidney disease could be indicated at eGFR's of less than 60 mL/min/1.73m2. Kidney failure is indicated at less than 15 mL/min/1.73m2. Performed By: #### 2 [id number], [id number], [id number], [id number], [id number], [id number] ####[facility] [address] [place] [id number] XR thoracic spine 2Von 05-31 XR thoracic spine 2V [facility] [place] [address] XRay Report Signed Patient: Denise Lantigua MR#: [id number] : 1980 Acct:[id number] Age/Sex: 43 / M ADM Date: 05/31/23 [place] [facility] [place]: Type: [facility] Attending Dr: Shaquille Remy MD Copies to: Shaquille Remy MD Ordering Provider: Shaquille Remy MD Date of Service: 05/31/23 XR/XR thoracic spine 2V: Thoracic back pain XR thoracic spine 2V 05/31/2023 4:17 PM SIGNS AND SYMPTOMS: Thoracic back pain PROTOCOLS: Frontal and lateral radiograph thoracic spine. COMPARISON: None FINDINGS: The bones are in anatomic alignment with preservation of vertebral body heights. There is a spinal cord stimulator with the leads extending to the mid T6 vertebral body level. No evidence of fracture or bony destructive lesion. XR/XR thoracic spine 2V IMPRESSION: There is a spinal cord stimulator with the leads extending to the mid T6 vertebral body level. No acute bony injury. Impression dictated by: Emil Jain M.D.05/31/2023 4:33 PM Dictation Location: [place] [address] Transcribed By: [facility] 05/31/23 1633 Dictated By: Emil Jain II, MD 05/31/23 1629 Signed By: 05/31/23 1633 Normal [facility] XR thoracic spine 2V [facility] [employer] Other XR thoracic spine 2V [facility] [employer] Other XR thoracic spine 2V [address] [facility] [employer] Other XR thoracic [place] [address] [employer] Other XR thoracic spine 2V XRay Report [facility] [employer] Other XR thoracic spine 2V Signed [facility] [employer] Other XR thoracic spine 2V Patient: [place] Lantigua MR#: [id number] [employer] Other XR thoracic spine 2V 8 [facility] [employer] Other XR thoracic spine 2V : 1980 Acct:[id number] [employer] Other XR thoracic spine 2V Age/Sex: 43 / M ADM Date: 05/31/23 [employer] Other XR thoracic spine 2V Loc: [facility] Room: Typ e: [facility] [employer] Other XR thoracic spine 2V Attending Dr: Huong Remy MD [employer] Other XR thoracic spine 2V Copies to: Shaquille Remy MD [employer] Other XR thoracic spine 2V Ordering Provider: Shaquille Remy MD [employer] Other XR thoracic spine 2V Date of Service: 05/31/23 [employer] Other XR thoracic spine 2V XR/XR thoracic spine 2V: Thoracic back pain [employer] Other XR thoracic spine 2V XR thoracic spine 2 V 05/31/2023 4:17 PM [employer] Other XR thoracic spine 2V SIGNS AND SYMPTOMS: [employer] Other XR thoracic spine 2V Thoracic back pain [employer] Other XR thoracic spine 2V PROTOCOLS: Frontal and lateral radiograph thoracic spine. [employer] Other XR thoracic spine 2V COMPARISON: None [employer] Other XR thoracic spine 2V FINDINGS: Brannon [employer] Other XR thoracic spine 2V The bones are in anatomic alignment with preservation of vertebral body heights. There is a spinal [employer] Other XR thoracic spine 2V cord stimulator wit h the leads extending to the mid T6 vertebral body level. No evidence of fracture [employer] Other XR thoracic spine 2V or bony destructive lesion. [employer] Other XR thoracic spine 2V XR/XR thoracic spine 2V [employer] Other XR thoracic spine 2V IMPRESSION: [facility] Other XR thoracic spine 2V There is a spinal c ord stimulator with the leads extending to the mid T6 vertebral body level. [employer] Other XR thoracic spine 2V No acute bony injury. [employer] Other XR thoracic spine 2V Impression dictated by: Emil Jain M.D.05/31/2023 4:33 PM [employer] Other XR thoracic spine 2V Dictation Location: [place] [address] [employer] Other XR thoracic spine 2V Transcribed By: KILEY 05/31/23 1633 [employer] Other XR thoracic spine 2V Dictated By: Emil Jain II, MD 05/31/23 1629 [employer] Other XR thoracic spine 2V Signed By: Brannonjaun [employer] Other XR thoracic spine 2V 05/31/23 1633 [employer] Other MISCELLANEOUS CULT./SM.BACT. on 01-25-2023 MISCELLANEOUS CULT./SM.BACT. PATIENT: DENISE LANTIGUA LOCATION: [facility] BILL#: [id number] : [birth year] AGE: SEX: M ORDERED BY: TOMASZ POWER SOURCE: WOUND/ABSCESS COLLECTED: 01/25/23 14:27 ANTIBIOTICS AT [facility].: RECEIVED : 01/25/23 22:07 SITE: THORACIC WOUND R E S U L T S GRAM STAIN FINAL 01/26/23 00:02 NO GRANULOCYTES OR ORGANISMS SEEN. MISCELLANEOUS CULT./SM.BACT. FINAL 01/27/23 11:44 NO GROWTH AEROBICALLY OR ANAEROBICALLY. Normal [facility] Comment on above: Performed By: #### [facility] #### [facility] [address] [place] [address] Order Reconciliationon 01-25 Order Reconciliation Page 1 Discharge Reconciliation Document Reconciliation Type: Discharge requested on behalf of Damian Power (Physician) done by Damian Power) Discharge - Reconciliation: 25-Jan-2023 13:36 by: Damian Power) Home Medications EnteredHOME MEDICATIONS AT DISCHARGE DateReconciliation Comment/ Additional Information Albuterol (Eqv-ProAir HFA) 90 mcg/inh inhalation aerosol 2 puff(s) inhaled every 6 hours, As Needed 14-Dec-2022 06:59 Albuterol (Eqv-ProAir HFA) 90 mcg/inh inhalation aerosol 2 puff(s) inhaled every 6 hours, As Needed 14-Dec-2022 06:59 Albuterol (Eqv-ProAir HFA) 90 mcg/inh inhalation aerosol is continued as Albuterol (Eqv-ProAir HFA) 90 mcg/inh inhalation aerosol amitriptyline 25 mg oral tablet 1 tab(s) orally once a day (at bedtime), As Needed 29-Dec-2021 13:22 amitriptyline 25 mg oral tablet 1 tab(s) orally once a day (at bedtime), As Needed 29-Dec-2021 13:22 amitriptyline 25 mg oral tablet is continued as amitriptyline 25 mg oral tablet atenolol 100 mg oral tablet 1 tab(s) orally once 28-Dec-2021 16:53 atenolol 100 mg oral tablet 1 tab(s) orally once 28-Dec-2021 16:53 atenolol 100 mg oral tablet is continued as atenolol 100 mg oral tablet chlorhexidine 0.12% mucous membrane liquid 15 milliliter(s) orally once a day 24-Jan-2023 07:36 Discontinued; Discontinue from ORM chlorhexidine 0.12% mucous membrane liquid is not required chlorhexidine 0.12% mucous membrane liquid 15 milliliter(s) orally once a day , patient instructions: , 15 milliliter(s) orally once a day for 2 doses, 15 ml the night before surgery and 15 ml morning of surgery, -swish for 30 seconds (DO NOT SWALLOW), S 03-Dec-2022 13:57 Discontinued; Discontinue from ORM chlorhexidine 0.12% mucous membrane liquid is not required cloNIDine 0.1 mg oral tablet 1 tab(s) orally 2 times a day 28-Dec-2021 16:54 cloNIDine 0.1 mg oral tablet 1 tab(s) orally 2 times a day 28-Dec-2021 16:54 cloNIDine 0.1 mg oral tablet is continued as cloNIDine 0.1 mg oral tablet cyclobenzaprine 10 mg oral tablet 1 tab(s) orally once a day 03-Dec-2022 13:14 cyclobenzaprine 10 mg oral tablet 1 tab(s) orally once a day 03-Dec-2022 13:14 cyclobenzaprine 10 mg oral tablet is continued as cyclobenzaprine 10 mg oral tablet ezetimibe 10 mg oral tablet 1 tab(s) orally once a day 03-Dec-2022 13:15 ezetimibe 10 mg oral tablet 1 tab(s) orally once a day 03-Dec-2022 13:15 ezetimibe 10 mg oral tablet is continued as ezetimibe 10 mg oral tablet gabapentin 300 mg oral capsule 3 cap(s) orally 3 times a day 12-Dec-2022 16:39 gabapentin 300 mg oral capsule 3 cap(s) orally 3 times a day 12-Dec-2022 16:39 gabapentin 300 mg oral capsule is continued as gabapentin 300 mg oral capsule lisinopril 10 mg oral tablet 1 tab(s) orally once a day 28-Dec-2021 16:53 lisinopril 10 mg oral tablet 1 tab(s) orally once a day 28-Dec-2021 16:53 lisinopril 10 mg oral tablet is continued as lisinopril 10 mg oral tablet oxycodone-acetaminophen 5 mg-325 mg oral tablet 1 tab(s) orally 3 times a day 12-Dec-2022 12:01 oxycodone-acetaminophen 5 mg-325 mg oral tablet 1 tab(s) orally 3 times a day 12-Dec-2022 12:01 oxycodone-acetaminophen 5 mg-325 mg oral tablet is continued as oxycodone-acetaminophen 5 mg-325 mg oral tablet tamsulosin 0.4 mg oral capsule 1 cap(s) orally once a day 03-Dec-2022 13:14 tamsulosin 0.4 mg oral capsule 1 cap(s) orally once a day 03-Dec-2022 13:14 tamsulosin 0.4 mg oral capsule is continued as tamsulosin 0.4 mg oral capsule Current OrdersDateHOME MEDICATIONS AT DISCHARGE DateReconciliation Comment/ Additional Information ceFAZolin 2 gram/ D5W 100 mL Premix IVPB (ANCEF)OnceRecommended Infusion Time: 30 minute(s)Clinician Notes: x1 dose pre-op 24-Jan-2023 11:11 ceFAZolin 2 gram/ D5W 100 mL Premix IVPB is not required All Active Home Medications at time of Discharge Reconciliation: 25-Jan-2023 13:36 Albuterol (Eqv-ProAir HFA) 90 mcg/inh inhalation aerosol 2 puff(s) inhaled every 6 hours, As Needed amitriptyline 25 mg oral tablet 1 tab(s) orally once a day (at bedtime), As Needed atenolol 100 mg oral tablet 1 tab(s) orally once cloNIDine 0.1 mg oral tablet 1 tab(s) orally 2 times a day cyclobenzaprine 10 mg oral tablet 1 tab(s) orally once a day ezetimibe 10 mg oral tablet 1 tab(s) orally once a day gabapentin 300 mg oral capsule 3 cap(s) orally 3 times a day lisinopril 10 mg oral tablet 1 tab(s) orally once a day oxycodone-acetaminophen 5 mg-325 mg oral tablet 1 tab(s) orally 3 times a day tamsulosin 0.4 mg oral capsule 1 cap(s) orally once a day Normal [facility] Patient Profile - Preop v3on 01-25-2023 Patient Profile - Preop v3 Patient Profile - Preop: Initial Info: Patient DemographicsName: DENISE LANTIGUA Date: 1980 Address: [address] [place] [address], [phone] Primary Phone [phone] Instructions Givenappropriate clothing, bring list of medications, 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 [phone] Limitations on Visitors/Phone Callsnone Medications Brought to Hospitalno General Health: Weight in kg76.3 kilogram(s) Weight in smo458.2 pound(s) Weight Methodactual (measured) Scale Typechair Height in feet5 feet Height in inches8.98 inch(es) Height in cm175.2 centimeter(s) Height Methodstated BMI (kg/m2)24.857 square meter Patient or Family Member Reaction to Anesthesiano previous reaction; no previous family member reaction Blood Avoidance/Restrictionsn one Previous Transfusion Reactionno Health Mgmt: Symptoms/Conditions Managed at [facility] [facility] Barriers to Managing Healthnone Relationship/Environ: Lives Withsignificant other Living Arrangementshouse Resource/Environmental Concernsnone Anticipated Transition [employer] Anticipated at Transitionnone Tobacco Use: Tobacco Useyes Last Tobacco [id number] Number of Packs per Day0.5 Pre-op Checklist: Arrival [id number] Arrival Time12:33 Procedure TypeSpinal Cord Stimulator Revision NPOyes Last Food Wzltdh97-Cqa-6451 21:00 Last Clear Fluid Nqkhch86-Npw-1119 05:30 NPO CommentSips with Meds ID Band On Patientpatient ID (name) Consent Signedyes H&P Completeyes Anesthesia Assessment Completedyes EKG Performednot ordered Chest X-Ray Performednot ordered Preop Antibioticssent to OR Beta-alfonzo Last Dose Date/Wujl34-Sqr-7535 05:30 COVID 19 Results in Last 7 daysN/A Glucose ResultN/A Type and Screen Resultedn/a Chlorhexadine Bath Givengiven night before surgery, completed morning of surgery Nasal Antiseptic Appliednot applicable Soap and Water Bath the Night Before Surgeryyes Hair Washed with Shampooyes Surgical Site Infection Preventionyes Pain Scales and Managementyes Additional Information: Information Review: Allergies, Home Meds and Significant Events have been Reviewed and Verified with Patient/Familyyes Allergy, Intolerance, Adverse Event: Allergies: No Known Allergies: Active Electronic Signatures: Mora Sadler (NUBIA GRANADO) (Signed 25-Jan-2023 13:45) Authored: Initial Info, General Health, Health Mgmt, Relationship/Environ, Tobacco Use, Pre-op Checklist, Additional Information Last Updated: 25-Jan-2023 13:45 by Mora Sadler (NUBIA GRANADO) Normal [facility] CBCon 01-19-2023 Erythrocyte distribution width (RBC) [Ratio] 14.8 % High 11.5 - 14.5 [facility] Comment on above: Performed By: #### C BC #### [address] [address] Hematocrit (Bld) [Volume fraction] 45.6 % Normal 41.0 - 52.0 [facility] Comment on above: Performed By: #### C BC #### [address] [address] Hemoglobin (Bld) [Mass/Vol] 14.7 g/dL Normal 13.5 - 17.5 [facility] Comment on above: Performed By: #### C BC #### [address] [address] MCHC (RBC) [Mass/Vol] 32.2 g/dL Normal 32.0 - 36.0 [facility] Comment on above: Performed By: #### C BC #### [address] [address] MCV (RBC) [Entitic vol] 87 fL Normal 80 - 100 [facility] Comment on above: Performed By: #### C BC #### [address] [place] [address] NUCLEATED RBC 0.0 /100 WBC Normal 0.0 - 0.0 [facility] Comment on above: Performed By: #### C BC #### [address] [place] [address] Platelets (Bld) [#/Vol] 332 10*3/uL Normal 150 - 450 [facility] Comment on above: Performed By: #### C BC #### [address] [place] [address] RBC 5.23 x10E12/L Normal 4.50 - 5.90 [facility] Comment on above: Performed By: #### C BC #### [address] [place] [address] WBC (Bld) [#/Vol] 11.8 10*3/uL High 4.4 - 11.3 [facility] Comment on above: Performed By: #### C BC #### [address] [place] [address] COMPREHENSIVE PANELon 2022 Albumin [Mass/Vol] 4.5 g/dL Normal 3.4 - 5.0 [facility] Comment on above: Performed By: #### C MP #### [address] [place] [address] ALP [Catalytic activity/Vol] 84 U/L Normal 33 - 120 [facility] Comment on above: Performed By: #### C MP #### [address] [place] [address] ALT [Catalytic activity/Vol] 32 U/L Normal 10 - 52 [facility] Comment on above: Result Comment: Janet ents treated with Sulfasalazine may generate falsely decreased results for ALT. Performed By: #### C MP #### [address] [place] [address] Anion gap [Moles/Vol] 9 mmol/L Low 10 - 20 [facility] Comment on above: Performed By: #### C MP #### [address] [place] [address] AST [Catalytic activity/Vol] 19 U/L Normal 9 - 39 [facility] Comment on above: Performed By: #### C MP #### [address] [place] [address] Bilirubin [Mass/Vol] 0.4 mg/dL Normal 0.0 - 1.2 [facility] Comment on above: Performed By: #### C MP #### [address] [place] [address] Calcium [Mass/Vol] 9.9 mg/dL Normal 8.6 - 10.3 [facility] Comment on above: Performed By: #### C MP #### [address] [place] [address] Chloride [Moles/Vol] 101 mmol/L Normal 98 - 107 [facility] Comment on above: Performed By: #### C MP #### [address] [place] [address] Creatinine [Mass/Vol] 1.06 mg/dL Normal 0.50 - 1.30 [facility] Comment on above: Performed By: #### C MP #### [address] [place] [address] GFR/1.73 sq M.predicted among non-blacks MDRD (S/P/Bld) [Vol rate/Area] 88 mL/min/{1.73_m2} Normal >90 [facility] Comment on above: Result Comment: CALC ULATIONS OF ESTIMATED GFR ARE PERFORMED USING THE 2020 CKD-EPI STUDY REFIT EQUATION WITHOUT THE RACE VARIABLE FOR THE IDMS-TRACEABLE CREATININE METHODS. https://jasn.asnjournals.org/content/early//ASN.131362 2064 Performed By: #### C MP #### [address] [place] [address] Glucose [Mass/Vol] 86 mg/dL Normal 74 - 99 [facility] Comment on above: Performed By: #### C MP #### [address] [place] [address] HCO3 (Bld) [Moles/Vol] 31 mmol/L Normal 21 - 32 [facility] Comment on above: Performed By: #### C MP #### [address] [place] [address] Potassium [Moles/Vol] 3.8 mmol/L Normal 3.5 - 5.3 [facility] Comment on above: Performed By: #### C MP #### [address] [place] [address] Protein [Mass/Vol] 7.2 g/dL Normal 6.4 - 8.2 [facility] Comment on above: Performed By: #### C MP #### [address] [place] [address] Sodium [Moles/Vol] 137 mmol/L Normal 136 - 145 [facility] Comment on above: Performed By: #### C MP #### [address] [place] [address] Urea nitrogen [Mass/Vol] 10 mg/dL Normal 6 - 23 [facility] Comment on above: Performed By: #### C MP #### [address] [place] [address] STAPH/MRSA SCREENon 01-20-20 STAPH/MRSA SCREEN PATIENT: AFRICA LANTIGUA LOCATION: [facility]#: [id number] : 76 AGE: SEX: M ORDERED BY: TOMASZ POWER SOURCE: [facility] COLLECTED: 01/19/23 09:27 ANTIBIOTICS AT BAILEE.: RECEIVED : 01/19/23 23:36 SITE: NARES, NARES, AXILLA, GROIN R E S U L T S STAPH/MRSA SCREEN FINAL 01/21/23 13:05 ISOLATE1 : Staphylococcus aureus METHICILLIN SENSITIVE STAPHYLOCOCCUS AUREUS (MSSA) Normal [facility] Comment on above: Performed By: #### S TAPH #### [facility] [address] [place] [address] CULTURE WOUNDon 12-28-2022 CULTURE WOUND Culture Observations : NO GROWTH OF AEROBES AT 48 HRS. Culture Observations: NO GROWTH OF ANAEROBES AT 72 HOURS. Normal [facility] Comment on above: Performed By: #### W OUNDCX #### [facility] [address] [place], [place] [address] Dr. Anaya Gerard Order Reconciliationon 12-14 Order Reconciliation Page 1 Discharge Reconciliation Document Reconciliation Type: Discharge requested on behalf of Damian Power (Physician) done by Damian Power) Discharge - Reconciliation: 14-Dec-2022 10:01 by: Damian Power) Home Medications EnteredHOME MEDICATIONS AT DISCHARGE DateReconciliation Comment/ Additional Information Albuterol (Eqv-ProAir HFA) 90 mcg/inh inhalation aerosol 2 puff(s) inhaled every 6 hours, As Needed 14-Dec-2022 06:59 Albuterol (Eqv-ProAir HFA) 90 mcg/inh inhalation aerosol 2 puff(s) inhaled every 6 hours, As Needed 14-Dec-2022 06:59 Albuterol (Eqv-ProAir HFA) 90 mcg/inh inhalation aerosol is continued as Albuterol (Eqv-ProAir HFA) 90 mcg/inh inhalation aerosol amitriptyline 25 mg oral tablet 1 tab(s) orally once a day (at bedtime), As Needed 29-Dec-2021 13:22 amitriptyline 25 mg oral tablet 1 tab(s) orally once a day (at bedtime), As Needed 29-Dec-2021 13:22 amitriptyline 25 mg oral tablet is continued as amitriptyline 25 mg oral tablet atenolol 100 mg oral tablet 1 tab(s) orally once 28-Dec-2021 16:53 atenolol 100 mg oral tablet 1 tab(s) orally once 28-Dec-2021 16:53 atenolol 100 mg oral tablet is continued as atenolol 100 mg oral tablet chlorhexidine 0.12% mucous membrane liquid 15 milliliter(s) orally once a day , patient instructions: , 15 milliliter(s) orally once a day for 2 doses, 15 ml the night before surgery and 15 ml morning of surgery, -swish for 30 seconds (DO NOT SWALLOW), S 03-Dec-2022 13:57 chlorhexidine 0.12% mucous membrane liquid 15 milliliter(s) orally once a day , patient instructions: , 15 milliliter(s) orally once a day for 2 doses, 15 ml the night before surgery and 15 ml morning of surgery, -swish for 30 seconds (DO NOT SWALLOW), S 03-Dec-2022 13:57 chlorhexidine 0.12% mucous membrane liquid is continued as chlorhexidine 0.12% mucous membrane liquid cloNIDine 0.1 mg oral tablet 1 tab(s) orally 2 times a day 28-Dec-2021 16:54 cloNIDine 0.1 mg oral tablet 1 tab(s) orally 2 times a day 28-Dec-2021 16:54 cloNIDine 0.1 mg oral tablet is continued as cloNIDine 0.1 mg oral tablet cyclobenzaprine 10 mg oral tablet 1 tab(s) orally once a day 03-Dec-2022 13:14 cyclobenzaprine 10 mg oral tablet 1 tab(s) orally once a day 03-Dec-2022 13:14 cyclobenzaprine 10 mg oral tablet is continued as cyclobenzaprine 10 mg oral tablet ezetimibe 10 mg oral tablet 1 tab(s) orally once a day 03-Dec-2022 13:15 ezetimibe 10 mg oral tablet 1 tab(s) orally once a day 03-Dec-2022 13:15 ezetimibe 10 mg oral tablet is continued as ezetimibe 10 mg oral tablet gabapentin 300 mg oral capsule 3 cap(s) orally 3 times a day 12-Dec-2022 16:39 gabapentin 300 mg oral capsule 3 cap(s) orally 3 times a day 12-Dec-2022 16:39 gabapentin 300 mg oral capsule is continued as gabapentin 300 mg oral capsule lisinopril 10 mg oral tablet 1 tab(s) orally once a day 28-Dec-2021 16:53 lisinopril 10 mg oral tablet 1 tab(s) orally once a day 28-Dec-2021 16:53 lisinopril 10 mg oral tablet is continued as lisinopril 10 mg oral tablet oxycodone-acetaminophen 5 mg-325 mg oral tablet 1 tab(s) orally 3 times a day 12-Dec-2022 12:01 oxycodone-acetaminophen 5 mg-325 mg oral tablet 1 tab(s) orally 3 times a day 12-Dec-2022 12:01 oxycodone-acetaminophen 5 mg-325 mg oral tablet is continued as oxycodone-acetaminophen 5 mg-325 mg oral tablet tamsulosin 0.4 mg oral capsule 1 cap(s) orally once a day 03-Dec-2022 13:14 tamsulosin 0.4 mg oral capsule 1 cap(s) orally once a day 03-Dec-2022 13:14 tamsulosin 0.4 mg oral capsule is continued as tamsulosin 0.4 mg oral capsule Current OrdersDateHOME MEDICATIONS AT DISCHARGE DateReconciliation Comment/ Additional Information Albuterol 2.5 mg/ 3 mL Nebulizer Soln (PROVENTIL)DOSE = 3 mL Inhalation Once via Nebulizer, PRN Wheezing (PACU)Clinician Notes: Mandy-operative order ONLY 14-Dec-2022 08:04 Albuterol 2.5 mg/ 3 mL Nebulizer Soln is not required ceFAZolin 1 gram/ 50 mL Premixed Soln_IPRO SolutionGive 2 gram(s), IntraVenous PiggyBack, ONCE 14-Dec-2022 09:41 ceFAZolin 1 gram/ 50 mL Premixed Soln_IPRO is not required ceFAZolin 2 gram/ D5W 100 mL Premix IVPB (ANCEF)OnceRecommended Infusion Time: 30 minute(s)Clinician Notes: x 1 dose preop 08-Dec-2022 13:59 ceFAZolin 2 gram/ D5W 100 mL Premix IVPB is not required Dexamethasone 4 mg Inj 1 mL_IPRO SolutionGive 10 mg, IntraVenous, ONCE 14-Dec-2022 09:41 Dexamethasone 4 mg Inj 1 mL_IPRO is not required ePHEDrine 50 mg/mL 1 mL Vial_IPRO SolutionGive 50 mg, IntraVenous, ONCE 14-Dec-2022 09:41 ePHEDrine 50 mg/mL 1 mL Vial_IPRO is not required FENTANYL 50MCG/1ML 2ML INJ_IPRO SolutionGive 150 microgram(s), IntraVenous, ONCE 14-Dec-2022 09:42 FENTANYL 50MCG/1ML 2ML INJ_IPRO is not required fentaNYL Injectable (SUBLIMAZE)DOSE = 25 microgram(s) IntraVenous Push Every 5 Minutes, PRN Pain - Mod (4-6) (PACU) if unable to take oralClinician Notes: Mandy-operative order ONLYMax total o (more content not included)... Normal [facility] Patient Profile - Preop v3on 12-14-2022 Patient Profile - Preop v3 Patient Profile - Preop: Initial Info: Patient DemographicsName: DENISE LANTIGUA Date: 1980 Address: [address] [place], [place] [id number] Primary Phone [phone] How to be AddressedRyan Spoken Language PreferredEnglish Source of Informationpatient Stated Reason for Admissionback surgery Primary Contact Name and NumberConnie [phone] Limitations on Visitors/Phone Callsnone Medications Brought to Hospitalno General Health: Weight in kg75.8 kilogram(s) Weight in nix777.1 pound(s) Weight Methodactual (measured) Scale Typechair Height in feet5 feet Height in inches8.98 inch(es) Height in cm175.2 centimeter(s) Height Methodstated BMI (kg/m2)24.694 square meter Patient or Family Member Reaction to Anesthesiano previous reaction Blood Avoidance/Restrictionsn one Previous Transfusion Reactionnot applicable Health Mgmt: Symptoms/Conditions Managed at Homecardiovascular; respiratory; chronic pain Cardiovascular Symptoms/Conditionshype rtension Chronic Pain Aggravating Factorsactivity Chronic Pain Relieving Factorsmeditation Respiratory Symptoms/Conditionsasth ma Respiratory Management Strategiesmedication therapy Barriers to Managing Healthnone Relationship/Environ: Lives Withsignificant other Living Arrangementshouse Resource/Environmental Concernsnone Anticipated [facility] [facility] Anticipated at Transitionnone Tobacco Use: Tobacco Useyes Tobacco Typecigarettes Last Tobacco Axl06-Gfu-6084 Number of Packs per Day0.5 Number of yrs30 Pack yrs15 Pre-op Checklist: Arrival Iirz40-Jpi-7500 Arrival Time06:15 Procedure TypeLaminectomy for insertion of spinal cord stimulator NPOyes Last Food Orbfyy30-Fuz-0630 19:00 Last Clear Fluid Uycqhc18-Puh-9095 03:00 ID Band On Patientpatient ID (name) H&P Completeyes EKG Performednot ordered Preop Antibioticssent to OR Beta-alfonzo Last Dose Date/Jids19-Mek-0740 03:00 Type and Screen Resultedn/a Chlorhexadine Bath Givencompleted at home Nasal Antiseptic Appliedcompleted in pre-op Soap and Water Bath the Night Before Surgeryyes Hair Washed with Shampooyes Bowel Prepno Surgical Site Infection Preventionyes Pain Scales and Managementyes Additional Information: Information Review: Allergies, Home Meds and Significant Events have been Reviewed and Verified with Patient/Familyyes Allergy, Intolerance, Adverse Event: Allergies: No Known Allergies: Active Electronic Signatures: Isabel Contreras (STAFF N) (Signed 14-Dec-2022 06:58) Authored: Initial Info, General Health, Health Mgmt, Relationship/Environ, Tobacco Use, Pre-op Checklist, Additional Information Last Updated: 14-Dec-2022 06:58 by Isabel Contreras (STAFF N) Normal [facility] STAPH/MRSA SCREENon 12-03-19 STAPH/MRSA SCREEN PATIENT: AFRICA LANTIGUA LOCATION: [facility]#: [id number] : 76 AGE: SEX: M ORDERED BY: TOMASZ POWER SOURCE: [facility]ES COLLECTED: 12/03/22 13:42 ANTIBIOTICS AT BAILEE.: RECEIVED : 12/03/22 22:15 SITE: bilateral R E S U L T S STAPH/MRSA SCREEN FINAL 12/05/22 11:18 NO Staphylococcus aureus ISOLATED. Normal [facility] Comment on above: Performed By: #### S TAP #### [facility] [address] [place] [address] XR Chest 2 Views*on 02-26-20 22 XR Chest 2 Views* CLINICAL HISTORY: Cough, congestion COMPARISON: date TECHNIQUE: Upright PA and lateral views of the chest were obtained. FINDINGS: Heart is normal in size. Lungs are clear and well expanded. No pleural effusion or pneumothorax. The bony thorax is unremarkable. IMPRESSION: NO ACUTE CARDIOPULMONARY ABNORMALITY. Report reported and signed by Keven Puri on 02/25/2022 0902 Normal [facility] CT ANGIO CORONARY ARTERIES W C EVAL OF CARDIAC STRUCTURE MORPHOLOGYon 12-29-2021 CT ANGIO CORONARY ARTERIES W C EVAL OF CARDIAC STRUCTURE MORPHOLOGY Addendum Begins Patient Name: DENISE LANTIGUA ADDENDUM: NON-CARDIOVASCULAR FINDINGS INCLUDED LUNGS, AIRWAYS AND PLEURA Endotracheal / endobronchial lesion: Negative Nodule: Negative Airspace disease: Negative Pleural effusion: Negative Pneumothorax: Negative Other: No acute or contributory unanticipated findings INCLUDED NON-CARDIOVASCULAR ANGELA AND MEDIASTINUM Adenopathy: Negative Included esophagus: Unremarkable Other: No acute or contributory unanticipated findings INCLUDED BONES: No acute skeletal findings, noting less sensitivity and specificity without dedicated sagittal and coronal reformatted series. INCLUDED CHEST WALL No acute or contributory unanticipated findings INCLUDED UPPER ABDOMEN No acute or contributory unanticipated findings ------- NON-CARDIOVASCULAR IMPRESSION NO ACUTE OR CONTRIBUTORY UNEXPECTED FINDINGS OF THE INCLUDED NON-CARDIOVASCULAR STRUCTURES Electronically signed by: EMIL PANIAGUA MD Addendum Ends Patient Name: DENISE LANTIGUA STUDY: CT ANGIO CORONARY ARTERIES W C EVAL OF CARDIAC STRUCTURE MORPHOLOGY; 12/29/2021 1:47 pm INDICATION: Coronary artery aneurysm. COMPARISON: None. ACCESSION NUMBER(S): [id number] ORDERING CLINICIAN: KATIE SALGUERO TECHNIQUE: Using multi-detector CT technology, Joe 64-slice scanner, axial, sequential imaging with retrospective gating was performed of the chest following the intravenous administration of contrast material. A low-osmolar contrast agent was used 75 ml of Omnipaque 350. Using prospective ECG gating, CT scan of the coronary arteries was performed without intravenous contrast. Coronary calcium scoring was performed according to the method of Agatston. In addition, CT-FFR analysis was also performed. CT925 The patient was premedicated with atenolol and 0.4 mg sublingual nitroglycerin per protocol for heart rate control and coronary dilation, respectively. For optimization of anatomic evaluation, multiplanar reconstruction, maximum intensity projections, and advanced 3-D off-line postprocessing were performed on a dedicated stand-alone workstation under the direct supervision of the interpreting physician. Independent FFR analysis of Heartflow 3D model was performed by interpreting physician. CT Dose-Length Product (DLP): 791.1 mGy/cm CT Dose Reduction Employed: Yes iterative reconstruction FINDINGS: The left main is normal sized vessel that bifurcates into the LAD and circumflex. Noncalcified plaque without significant stenosis. LEFT ANTERIOR DESCENDING ARTERY: The LAD is a normal size vessel that wraps around the apex. Ectatic proximal LAD 6 mm diameter. Mid LAD noncalcified plaque without significant stenosis. LAD gives rise to 1 acute diagonal branches. D1: Proximal noncalcified plaque without significant stenosis. Ramus: Small, noncalcified plaque without significant stenosis. LEFT CIRCUMFLEX ARTERY: The LCfx is a normal size vessel, which is codominant. Proximal/mid noncalcified plaque without significant stenosis. LCfx gives rise to 2 obtuse marginal branches. OM1 proximal noncalcified plaque without significant stenosis. OM2 small, normal RIGHT CORONARY ARTERY: The RCA is a normal size vessel, which is codominant. It gives rise to a conus branch, trell branch, and 1 acute marginal branches. In its distal segment it bifurcates into the PDA and PV branch. Proximal noncalcified plaque without significant stenosis. Proximal RCA is ectatic 5 mm diameter. Mid vessel noncalcified plaque with 50% stenosis. Mid vessel FFR 0.96, distal FFR 0.95 (hemodynamically nonsignificant). Right PDA proximal noncalcified plaque without significant stenosis Left PLV proximal noncalcified plaque with 50-70% luminal stenosis. Proximal FFR 0.87 (hemodynamically nonsignificant. CARDIAC CHAMBERS: The cardiac chambers demonstrate normal atrioventricular and ventriculoarterial concordance, and systemic and pulmonary venous return. LEFT VENTRICLE: Normal size End diastolic volume 111 ml, 93 ml/m2 LEFT VENTRICLE MASS: 125 gm, 105 gm/m2 RIGHT VENTRICLE: Normal size End diastolic volume 139 ml, 117 ml/m2 LEFT ATRIUM: Normal size End systolic volume 70 ml, 59 ml/m2 RIGHT ATRIUM: Normal size End systolic volume 93 ml, 78 ml/m2 INTERATRIAL SEPTUM: Intact. AORTIC VALVE: The aortic valve is trileaflet in morphology. No calcifications. MITRAL VALVE: No thickening/calcificatio n. THORACIC AORTA: The visualized thoracic aorta is normal in course, caliber, and contour. There is no acute aortic pathology, such as dissection, intramural hematoma, or contained rupture. The aortic arch is not included on this examination. Pulmonary veins: Common ostium for left superior pulmonary vein and left inferior pulmonary vein. PERICARDIUM: (more content not included)... Normal [facility] Complete Blood Count with Au to Diffon 12-24-2021 Basophils (Bld) [#/Vol] 0.13 10*3/uL Normal 0.00-0.20 [facility] [employer] Comment on above: Performed By: #### C BCAD, LIPD, CMP #### [facility] [address] [place], [place] [phone] Basophils/100 WBC (Bld) 1.5 % Normal [facility] Special[facility] Comment on above: Performed By: #### C BCAD, LIPD, CMP #### [facility] [address] [place], [place] [phone] Eosinophils (Bld) [#/Vol] 0.14 10*3/uL Normal 0.02-0.50 [facility] [employer] Comment on above: Performed By: #### C BCAD, LIPD, CMP #### [facility] [address] [place], [place] [id number] Eosinophils/100 WBC (Bld) 1.6 % Normal [facility] [employer] Comment on above: Performed By: #### C BCAD, LIPD, CMP #### [facility] [address] [place], [place] [phone] Erythrocyte distribution width (RBC) [Ratio] 14.3 % Normal 11.0-15.0 [facility] [employer] Comment on above: Performed By: #### C BCAD, LIPD, CMP #### [facility] [address] [place], [place] [id number] Hematocrit (Bld) [Volume fraction] 47.1 % Normal 38.5-50.0 [facility] [employer] Comment on above: Performed By: #### C BCAD, LIPD, CMP #### [facility] [address] [place], [place] [id number] Hemoglobin (Bld) [Mass/Vol] 15.4 g/dL Normal 13.0-17.1 [facility] [employer] Comment on above: Performed By: #### C BCAD, LIPD, CMP #### [facility] [address] [place], [place] [phone] Lymphocytes (Bld) [#/Vol] 3.0 10*3/uL Normal 0.9-3.9 [facility] [employer] Comment on above: Performed By: #### C BCAD, LIPD, CMP #### [facility] [address] [place], [place] [id number] Lymphocytes/100 WBC (Bld) 33.2 % Normal [facility] Specialist Comment on above: Performed By: #### C BCATal, LIPD, CMP #### [facility] [address] [place], [place] [id number] MCH (RBC) [Entitic mass] 28.4 pg Normal 27.0-33.0 [facility] Special[facility] Comment on above: Performed By: #### C BCAD, LIPD, CMP #### [facility] [address] [place], [place] [phone] MCHC (RBC) [Mass/Vol] 32.7 g/dL Normal 32.0-36.0 [facility] Comment on above: Performed By: #### C BCAD, LIPD, CMP #### [facility] [address] [place], [place] [id number] MCV (RBC) [Entitic vol] 87 fL Normal 80-100 [facility] Specialist Comment on above: Performed By: #### C BCAD, LIPD, CMP #### [facility] [address] [place], [place] [phone] Monocytes (Bld) [#/Vol] 0.6 10*3/uL Normal 0.2-0.9 [facility] Special[facility] Comment on above: Performed By: #### C BCAD, LIPD, CMP #### [facility] [address] [place], [place] [id number] Monocytes/100 WBC (Bld) 7.0 % Normal [facility] Specialist Comment on above: Performed By: #### C BCAD, LIPD, CMP #### [facility] [address] [place], [place] [id number] Neutrophils (Bld) [#/Vol] 5.0 10*3/uL Normal 1.5-7.8 [facility] Special[facility] Comment on above: Performed By: #### C BCAD, LIPD, CMP #### [facility] [address] [place], [place] [id number] Neutrophils/100 WBC (Bld) 56.2 % Normal [facility] Specialist Comment on above: Performed By: #### C BCAD, LIPD, CMP #### [facility] [address] [place], [place] [id number] Platelet mean volume (Bld) [Entitic vol] 10.40 fL Normal 7.50-12.50 [facility] Specialist Comment on above: Performed By: #### C BCAD, LIPD, CMP #### [facility] [address] [place], [place] [id number] Platelets (Bld) [#/Vol] 345 10*3/uL Normal 140-400 [facility] Comment on above: Performed By: #### C BCAD, LIPD, CMP #### [facility] [address] [place], [place] [id number] RBC (Bld) [#/Vol] 5.42 10*6/uL Normal 4.20-5.80 [facility] Specialist Comment on above: Performed By: #### C BCAD, LIPD, CMP #### [facility] [address] [place], [place] [id number] RDW-SD 45.7 fL Normal 37.0-50.0 [facility] Specialist Comment on above: Performed By: #### C BCAD, LIPD, CMP #### [facility] [address] [place], [place] [id number] WBC (Bld) [#/Vol] 8.9 10*3/uL Normal 3.8-11.0 [facility] Comment on above: Performed By: #### C BCAD, LIPD, CMP #### [facility] [address] [place], [place] [id number] Comprehensive Metabolic Pane [facility] 12-24-2021 Albumin [Mass/Vol] 4.8 g/dL Normal 3.6-5.1 [facility] Comment on above: Performed By: #### C BCAD, LIPD, CMP #### [facility] [address] [place], [place] [id number] Albumin/Globulin [Mass ratio] 2.0 {ratio} Normal 1.0-2.5 [facility] Specialist Comment on above: Performed By: #### C BCAD, LIPD, CMP #### [facility] [address] [place], [place] [id number] ALP [Catalytic activity/Vol] 90 U/L Normal 40-129 [facility] Comment on above: Performed By: #### C BCAD, LIPD, CMP #### [facility] [address] [place], [place] [id number] ALT [Catalytic activity/Vol] 16 U/L Normal 9-46 [facility] Specialist Comment on above: Result Comment: 09/09 Female reference range changed. Performed By: #### C BCAD, LIPD, CMP #### [facility] [address] [place], [place] [id number] Anion gap [Moles/Vol] 19 mmol/L Normal 12-20 [facility] Comment on above: Result Comment: Effe ctive 10/15/2019 reference range changed. Performed By: #### C BCAD, LIPD, CMP #### [facility] [address] [place], [place] [id number] AST [Catalytic activity/Vol] 17 U/L Normal 10-40 [facility] Comment on above: Performed By: #### C BCAD, LIPD, CMP #### [facility] [address] [place], [place] [id number] Bilirubin [Mass/Vol] 0.40 mg/dL Normal 0.30-1.20 [facility] Comment on above: Performed By: #### C BCAD, LIPD, CMP #### [facility] [address] [place], [place] [id number] BUN/CREA 10 Ratio Normal 6-22 [facility] Comment on above: Performed By: #### C BCAD, LIPD, CMP #### [facility] [address] [place], [place] [id number] Calcium [Mass/Vol] 9.3 mg/dL Normal 8.6-10.2 [facility] Comment on above: Performed By: #### C BCAD, LIPD, CMP #### [facility] [address] [place], [place] [id number] Chloride [Moles/Vol] 102 mmol/L Normal 98-107 [facility] Comment on above: Performed By: #### C BCAD, LIPD, CMP #### [facility] [address] [place], [place] [id number] CO2 [Moles/Vol] 24 mmol/L Normal 20-31 [facility] Comment on above: Performed By: #### C BCAD, LIPD, CMP #### [facility] [address] [place], [place] [id number] Creatinine [Mass/Vol] 1.0 mg/dL Normal 0.7-1.4 [facility] Comment on above: Performed By: #### C BCAD, LIPD, CMP #### [facility] [address] [place], [place] [id number] eGFRAA 96 mL/min/1.73m2 Normal >60 [facility] Comment on above: Performed By: #### C BCAD, LIPD, CMP #### [facility] [address] [place], [place] [id number] eGFRNAA 79 mL/min/1.73m2 Normal >60 [facility] Comment on above: Performed By: #### C BCAD, LIPD, CMP #### [facility] [address] [place], [place] [id number] Globulin (S) [Mass/Vol] 2.4 g/dL Normal 1.9-3.7 [facility] Comment on above: Performed By: #### C BCAD, LIPD, CMP #### [facility] [address] [place], [place] [id number] Glucose [Mass/Vol] 100 mg/dL High 65-99 [facility] Comment on above: Result Comment: For FASTING Glucose --- ADA reference ranges: Normal 65-99 mg/dl Prediabetes 100-125 Diabetes >/= 126 Performed By: #### C BCAD, LIPD, CMP #### [facility] [address] [place], [place] [id number] Potassium [Moles/Vol] 4.5 mmol/L Normal 3.5-5.5 [facility] Specialist Comment on above: Result Comment: Spec imen is hemolyzed. Results may be affected. Performed By: #### C BCAD, LIPD, CMP #### [facility] [address] [place], [place] [id number] Protein [Mass/Vol] 7.2 g/dL Normal 6.1-8.1 [facility] [place] [facility] Comment on above: Performed By: #### C BCAD, LIPD, CMP #### [facility] [address] [place], [place] [id number] Sodium [Moles/Vol] 140 mmol/L Normal 135-146 [facility] [place] [facility] Comment on above: Performed By: #### C BCAD, LIPD, CMP #### [facility] [address] [place], [place] [id number] Urea nitrogen [Mass/Vol] 10 mg/dL Normal 7-25 [facility] [employer] [facility] Comment on above: Performed By: #### C BCAD, LIPD, CMP #### [facility] [address] [place], [place] [id number] Lipid Panelon 12-24-2021 Cholesterol [Mass/Vol] 333 mg/dL High 125-200 [facility] [employer] [facility] Comment on above: Result Comment: Low risk < 200mg/dL Borderline risk 201-239 mg/dl High risk > or equal to 240 Performed By: #### C BCAD, LIPD, CMP #### [facility] [address] [place], [place] [id number] Cholesterol in HDL [Mass/Vol] 34 mg/dL Low >40 [facility] [employer] [facility] Comment on above: Result Comment: High Cardiovascular Risk HDL <40 mg/dL Low Cardiovascular Risk HDL > or equal to 60 mg/dl Performed By: #### C BCAD, LIPD, CMP #### [facility] [address] [place], [place] [id number] Cholesterol in LDL [Mass/Vol] 247 mg/dL Normal [facility] [employer] Comment on above: Result Comment: LDL ATP III CLASSIFICATION LDL less than 100 mg/dl Optimal LDL 100-129 mg/dl Near or above optimal LDL 130-159 Borderline high LDL 160-189 High LDL greater than 189 mg/dl Very High Performed By: #### C BCAD, LIPD, CMP #### [facility] [address] [place], [place] [id number] Cholesterol in VLDL [Mass/Vol] 52 mg/dL Normal [facility] [employer] Comment on above: Performed By: #### C BCAD, LIPD, CMP #### [facility] [address] [place], [place] [id number] Cholesterol.total/Cho lesterol in HDL [Mass ratio] 10 {ratio} Normal [facility] [employer] Comment on above: Performed By: #### C BCAD, LIPD, CMP #### [facility] [address] [place], [place] [id number] Triglyceride [Mass/Vol] 262 mg/dL High 30-150 [facility] [employer] Comment on above: Result Comment: TRIG ATPIII CLASSIFICATIONS TRIG less than 150 mg/dl Normal TRIG 150-199 mg/dl Borderline High TRIG 200-500 mg/dl High TRIG greather than 500 mg/dl Very High Performed By: #### C BCAD, LIPD, CMP #### [facility] [address] [place], [place] [id number] Microalbumin (with Creat)on 12-24-2021 mALB <1.2 Low [facility] Specialist Comment on above: Result Comment: Unab le to calculate mALB/Crea ratio, mALB is <1.2 mg/dL mALB reference range not established. Performed By: #### m ALBC #### [facility] [address] [place], [place] [id number] UCREA 222 mg/dL Normal 39-259 [facility] [employer] Comment on above: Performed By: #### m ALBC #### [facility] [address] [place], [place] [id number] Q - URINALYSIS,COMPLETEon Appearance (U) CLEAR Normal CLEAR [facility] Specialist Comment on above: Order Comment: [facility] performed at: [facility] [facility], [address] [place] [address], [address] [place] [address], [id number], Continuity Tester: River Anna MD [facility] Date/Time: [facility] Results Received Date/Time: [facility] Reported Date/Time: Performed By: #### 3 4F #### [facility] [address] [place] [address] BACTERIA NONE SEEN Normal NONE SEEN [facility] [employer] Comment on above: Order Comment: [facility] performed at: [facility] [facility], [address], [address] [place], [place], [address] [place] [address], Continuity Tester: River Anna MD [facility] Date/Time: [facility] Results Received Date/Time: [facility] Reported Date/Time: Performed By: #### 3 4F #### [facility] [address] [place] [address] Bilirubin Ql (U) Negative Normal NEGATIVE [facility] Specialist Comment on above: Order Comment: [facility] performed at: [employer] [employer] [facility], [address], [address] [place] [address], [address] [place] [address], Continuity Tester: River Anna MD [facility] Date/Time: [facility] Results Received Date/Time: [facility] Reported Date/Time: Performed By: #### 3 4F #### [facility] [address] [place] [address] Color (U) YELLOW Normal YELLOW [facility] [employer] Comment on above: Order Comment: [facility] performed at: [employer] [employer] [facility], [address] , [address] [place] [address], [address] [place] [address], Continuity Tester: River Anna MD [facility] Date/Time: [facility] Results Received Date/Time: [facility] Reported Date/Time: Performed By: #### 3 4F #### [facility] [address] [place] [address] Glucose Ql (U) Negative Normal NEGATIVE [facility] [employer] Comment on above: Order Comment: [facility] performed at: [employer] [employer] [facility], [address] , [address] [place] [address], [address] [place] [address], Continuity Tester: River Anna MD [facility] Date/Time: [facility] Results Received Date/Time: [facility] Reported Date/Time: Performed By: #### 3 4F #### [facility] [address] [place] [address] HYALINE CAST NONE SEEN Normal NONE SEEN [facility] [employer] [facility] Comment on above: Order Comment: [facility] performed at: [employer], [employer] [facility], [address] [place] [address], [address] [place] [address], [address] [place] [address], Continuity Tester: River Anna MD [facility] Date/Time: [facility] Results Received Date/Time: [facility] Reported Date/Time: Performed By: #### 3 4F #### [facility] [address] [place] [address] Ketones Ql (U) Negative Normal NEGATIVE [facility] [employer] Comment on above: Order Comment: [facility] performed at: [employer] [employer] [facility], [address] [facility], [address] [place] [address], [address] [place] [address], Continuity Tester: River Anna MD [facility] Date/Time: [facility] Results Received Date/Time: [facility] Reported Date/Time: Performed By: #### 3 4F #### [facility] [address] [place] [address] Leukocyte esterase Test strip Ql (U) Negative Normal NEGATIVE [facility] [employer] Comment on above: Order Comment: [facility] performed at: [employer] [employer] [facility], [address] [facility], [address] [place] [address], [address] [place] [address], Continuity Tester: River Anna MD [facility] Date/Time: [facility] Results Received Date/Time: [facility] Reported Date/Time: Performed By: #### 3 4F #### [facility] [address] [place] [address] Nitrite Ql (U) Negative Normal NEGATIVE [facility] [employer] Comment on above: Order Comment: [facility] performed at: [employer] [employer] [facility], [address] [facility], [address] [place] [address], [address] [place] [address], Continuity Tester: River Anna MD [facility] Date/Time: [facility] Results Received Date/Time: [facility] Reported Date/Time: Performed By: #### 3 4F #### [facility] [address] [place] [address] OCCULT BLOOD Negative Normal NEGATIVE [facility] [employer] Comment on above: Order Comment: [facility] performed at: [facility], [employer], [address] , [address] [place] [address], [address] [place] [address], Continuity Tester: River Anna MD [facility] Date/Time: [facility] Results Received Date/Time: [facility] Reported Date/Time: Performed By: #### 3 4F #### [facility] [address] [place] [address] pH (U) 5.5 [pH] Normal 5.0-8.0 [facility] [employer] Comment on above: Order Comment: [facility] performed at: [facility], [facility], [address] , [address] [place] [address], [address] [place] [address], Continuity Tester: River Anna MD [facility] Date/Time: [facility] Results Received Date/Time: [facility] Reported Date/Time: Performed By: #### 3 4F #### [facility] [address] [place] [address] Protein Ql (U) Negative Normal NEGATIVE [facility] [employer] [facility] Comment on above: Order Comment: [facility] performed at: [facility], [facility], [address] , [address] [place] [address], [address] [place] [address], Continuity Tester: River Anna MD [facility] Date/Time: [facility] Results Received Date/Time: [facility] Reported Date/Time: Performed By: #### 3 4F #### [facility] [address] [place] [address] RBC NONE SEEN Normal < OR = 2 [facility] [employer] Comment on above: Order Comment: [facility] performed at: [facility]PT, [facility], [address] [place] [address], [address] [place] [address], [address] [place] [address], Continuity Tester: River Anna MD [facility] Date/Time: [facility] Results Received Date/Time: [facility] Reported Date/Time: Performed By: #### 3 4F #### [facility] [address] [place] [address] Specific gravity (U) [Rel density] 1.024 Normal 1.001-1.035 [facility] Specialist Comment on above: Order Comment: [facility] performed at: [employer] [employer] [facility], [address] [place] [address], [address] [place] [address], [address] [place] [address], Continuity Tester: River Anna MD [facility] Date/Time: [facility] Results Received Date/Time: [facility] Reported Date/Time: Performed By: #### 3 4F #### [facility] [address] [place] [address] SQUAMOUS EPITHELIAL CELLS NONE SEEN Normal < OR = 5 [facility] [employer] [facility] Comment on above: Order Comment: [facility] performed at: [employer] [employer], [address] [place] [address], [address] [place] [address], [address] [place] [address], Continuity Tester: River Anna MD [facility] Date/Time: [facility] Results Received Date/Time: [facility] Reported Date/Time: Performed By: #### 3 4F #### [facility] [address] [place] [address] WBC NONE SEEN Normal < OR = 5 [facility] [employer] Comment on above: Order Comment: [facility] performed at: [employer] [employer] [facility], [address] [place] [address], [address] [place] [address], [address] [place] [address], Continuity Tester: River Anna MD [facility] Date/Time: [facility] Results Received Date/Time: [facility] Reported Date/Time: Performed By: #### 3 4F #### [facility] [address] [place] [address] CT CARDIAC SCORINGon 022 CT CARDIAC SCORING Addendum Begins Patient Name: DENISE LANTIGUA ADDENDUM: Technical: The following is to serve as an over-read for an unenhanced cardiac CT, to evaluate the extra vascular structures. Contiguous unenhanced CT sections are performed from the level of the jerald to the upper abdomen. Findings: The visualized portions of both lungs are clear. There is no sign of pathologic lymph node enlargement. There is no pericardial or pleural effusion. Images through the upper abdomen are unremarkable aside from a tiny too small to characterize hypodensity in the right hepatic lobe.. The visualized osseous and soft tissue structures of the chest wall are intact. Impression: The extra vascular structures have an unremarkable CT appearance. Electronically signed by: NOEMÍ MCGARRY MD Addendum Ends Patient Name: DENISE LANTIGUA STUDY: CT CARDIAC SCORING; 11/27/2021 1:34 pm INDICATION: E78.5 Hyperlipidemia, unspecified. COMPARISON: None. ACCESSION NUMBER(S): [id number] ORDERING CLINICIAN: KATIE SALGUERO TECHNIQUE: Using prospective ECG gating, CT scan of the coronary arteries was performed without intravenous contrast. Coronary calcium scoring was performed according to the method of Agatston. CT Dose-Length Product (DLP): 81 mGy*cm CT Dose Reduction Employed: Yes, prospective gating, iterative reconstruction. FINDINGS: The score and distribution of calcium in the coronary arteries is as follows: LM 0 LAD 0 proximal LAD ectatic 6 mm diameter. LCx 0 RCA 0 proximal RCA ectatic 6 mm. Total 0 The visualized mid/lower ascending thoracic aorta measures 3.3 cm in diameter. The heart is normal in size. No pericardial effusion is present. IMPRESSION: 1. Coronary artery calcium score of 0*. 2. Ectatic proximal left anterior descending coronary artery 6 mm diameter. 3. Ectatic proximal right coronary artery 6 mm diameter. *Coronary artery calcium scoring may be helpful in predicting the risk for future coronary heart disease events. According to the [place] [employer] Clinical Expert Consensus Task Force, such testing provides important prognostic information in patients with more than one coronary heart disease risk factor. The coronary artery calcium score correlates with the annual risk of a non-fatal myocardial infarction or coronary heart disease . Coronary artery score Annual Risk 0-99 0.4% 100-399 1.3% >400 2.4% These three breakpoints correspond to lower, intermediate and high risk states for future coronary events. Such information should be used, along with appropriate clinical judgment, to make decisions regarding the intensity of risk factor management strategies to treat blood lipids and to modify other non-lipid coronary risk factors. Reference: Lakeshia P et al. Circulation. 2007; 115:402-426 Reading Shipping Assistant: Dr. Karissa Reyes, Date: 12/01/2021 2:10 pm Electronically signed by: NOEMÍ MCGARRY MD [facility] Cons[facility] Formson 07-07-2021 Consent Forms [id number]#1.00O [facility] Provider Orderson 07-06-2021 Provider Orders [id number]#1.00O [facility] Consent Formson 07-02-2021 Consent Forms [id number]#1.00O [facility] Coding Summaryon 07-01-2021 Coding Summary HTMLBase 64 PtuhujdfNYw8iWe+PGhlYWQ +PM5XKCNaW08ryCGpmZ3WB1 dYIH7HWRFGMVHPJP0ICJ0tw YV7SZelX1DpitRm NjvmdBOeCK76NFx0ACB0wSb xAOtwqT9ujCYjQ4v7FbXbUD 68nA04KNsrUDHvIyO0MiJpr jsgbWFy D1rnXuMxeKWjZaa+PHRhYmx lIHdpZHRoPScxMDAlJyBzdH brSP8cFf7xCENyRPMubTvrh HNlOiBj v3xgBWPrZDnwQJ5zcXgmI0W mzES8HGYhi9m4Jk47zOS+PH OvOLC2lBpjQPtqp819AbYfs 1peZGL8 gIWlHQafTCE2D03si5C4ONO eEWSkMSO8mIN0zN7mnFsjmt nxO5DluTMrYtW0KCN1tKIek O4fiHdk onmphQ8tTuc+X77ZRS5APUG NBL9JOnu7T0HuKeamkAR+PC 08RAGoIV00cKFctAWul6wbe Hm8PlXi MVYuBBR6rKosKOsqa0KjCPY bY53heXMwf8W9UGCjoZjnkP JoFuWvqIZ9yX9mIJjubevrf 2hvdzsn Gblel9luks53tK71Y80aAQl kWCJqHCY4GHNuSFMlrAcvoy 2isX4pTo6+NUghe3itg8wtp Xc0FqBb SWQwomFhsUoiYLB8w4OtMz2 8L7OgsZjze5EqOxy7pb79pQ Xft5G6mNK6SRlpNWQrjP5uB WxlZnQ6 WJQkVuLhxM88eJYoMPapAx4 sgXuvaBbvJF9xOTCvhnzvBW EttL5nEKIqoRGzgFpuJH2eT TBpbjtm g264JyMwSXE1TVDorISoH5N csY9kOxCdWDMsOPRgV9ZwwS ElMKmiQ032HWdlUnT4SDHkz rQcW7Jz YOEhgWltOxM3n8M4Lr8Lc0E mzyneMSN4EAsoPVH5HiBwOw MxZzG1J4TiScz4SUOraZgqH F7aC3Yo AOVhzwoubhhwsLX5GEAcYVX ceD29dIEhGKgmYx3cq2H3n7 50IWFjVRBlcF45Ks0vgRecB TBwdCBU kH4uugztt1aeohtcDfZjDXF xBMd6TEl3MRZlyVprRtMsFM V6QcS1UVG2pPHjvV5qmDtol kymeJ7m Oyc+K55xbV5wYXZ6PRV7bsh tESMhxxHnUP09GW41G2MhHe wvdGFibGU+PGRpdiBzdHlsZ O6zBuEu e9zvt1CeSZdjP3SnMVHkYZj iEdz7YUYvVBH4sXY2cO4lBH EeMVzmj4D1gHD1E3ZwuyPnv o5kd3ob RLCjWQisX94vePZnd2M2XRU vjIH2SBKxcHwsSgRuoX40Sc c+LRFfpVcav3IdMxaag9vxg 9xtsIk7 SlPiUEClswIytEfzDHR3y1S sTc21J28bEZuuFMVtBBDdBK KfJUYdlYoyxw8rxD4aXp1+P GNvbCB3 pDT3lU5mXMDgOiW6ZCdgW13 0KtXyeERvSvojt5qwn4nbqF d0ZxAeEQPkupMmiIsmKWA6k 7BjIu25 K66aASiwDSDfXCNrFDIiHTR kqZlsqp0arH5rKe9+PC9jb2 krsi85gX02yBL+PZViKBE6g WxlPSdw NIIynL8gUKdrApM4OHAbXzS bnI82dUAfOKrlPc2vzPlmwW xoOU3xKOXdpmexo245PqKox 2xkIDEw zOUyLYplRNS3W84ey0U0UKG qACJsEHG3tRT5tF8zxDatfi ogbGVmdDsgdmVydGljYWwtY PuhW273 IHRvcDsnPlBhdGllbnQgTmF dCSm0E9WtItz7DCSkkAhgAL 8wlCLoFAtvPd8ysQwfuZefK V0cVTFr vdmmh681JqZnj8bzLTZdaEH sJJhlWBD9E91te6F5CULrHP YcLZK1uVS7kO8xnVeannotp GVmdDsg ziHgiAizUQwnMRqzH589XRO miEtaZtTfaaShTRTwaVF2UU 57JF15nPPex8O4fIQ8W7YuN GRpbmct ufcbiUY2ARGyURYxkA86Uw6 gqDynOg8jUKVaZAN8NENwsD GiG6EslV5lEoWiUHZiSHXqN 3RleHQt XHflH685AAztQrT2KODhniN xH5IbKSSayIhrWfS5p9G2Xa 3PP6F3GK56EF33kPBnd1C5f HR6C3Yk GABjddzpeteknAH7UDApQKR xmS84Ru5avOlcDw2nNDPxDA F8GXGwtDYsS9ChuT4lDyBaJ DAwMDAw X3IhuYYiIKqdU741FZfpYvH 2YZBpauVuL6ZcQVMvrAolEu X3z1K1Kh8FHEu6AV38QJ34d BJyu6P0 zCN4R3HlUZFbetlbvpihhVU 0YXCpKJRlsL41Yj2ejUlcGh 9uYATaLTU4KBDbcPRvM8Hnv C6tRtBc ILUpXVSrY4DtpUJuOMbsU77 5HDseHwT3TMThmjTkQ8GkMO XywQbbJlR2h1O4Ie8KTNMpM Z37MJH5 hFC4CW91XA03Z0PuHdzlfBH ibGU+PHRhYmxlIHdpZHRoPS wdVTReShFtgQebGX2gFb5rY GVyLWNv zAkdwUYvKdZxx4cgLXSuDQv qJZ8bqJxlS9EgdAN3JXIju1 y6Wh09U77lQ2UpoIO+PGNvb MN0xOZ4 rR5dQeXuIcE5LZfnQ675NvS xvAJeWbqam6pso5hzlTt0Ru Y6OFZhmuHruBplENW7m6JyS r14W72h IHdpZHRoPSIxNSUiIHZhbGl xhh9ljR5sEo7+SNMfqDV5cC T7rJ5fTjYzAvC5DHwvH662W nRvcCIv Bcgqh9rmx5gfzUl8RgIzNNI ehbNzxNukPTK1h4IyXz80Y8 ChuPbhq1AkEnq2st76bCTfl 1P9eVX0 I5NcBFHgjoduuZUucByqTP3 wVWFbgjmzERTgfN5jGAHnV1 m8EwYwMyE4HEarO5HuhaP2Z DEwcHQg TPfhACU0C00yt7K5SKAdMGJ zDLS0fRA7bA9pfVnpxiizeI VmdDsgdmVydGljYWwtYWxpZ 246IHRv fVoyKBJcsB3nEDLdwQFuuEq yAW5yPQOwbzetNjFUPx6GZd cuFyxJFpRFVH86SB55vVEws 8P0oSW5 H4AgQPWbjsyugxvnnFE5WZR qGZRznP47eZPnIJauFw0tu9 I3u160LRQiCXEknK04Oc9cl DogMTBw hLRBuY4uinofa9xnpqkbHsQ nCVHcVJd2XWp3RZDokNybGm NbWAK1KyJ5JVT1sNYvbT8kw Glnbjog gC1vZec+KHDmWOBzQIx8MYi vdGQ+PKDdONN7sVzeFHawUV YeeZ8fNYHfZ2a4IuKyDgO2V QdhZ8Uh PKCoknapVc61sP7bMeGvHeS 5BXraB3XmxeI5GYNciXKiOR tbMKK2G07la8A8ADMdPZZzZ JA7nGE9 wR0jjUqnpgftkAHsmBqgylG zaJcaMClnHXqbU360DZMonX ujWnUqPQoaFSUyHB22AT78f LNhy7Q8 mVX5R2TzKJBfcvvlwgdivLM 0SIPoNKNuaK57fHVoBDadJh 8yo2A8q361WEYqYUZsfM92X e1xuSik UCXtnFUOuR8vpncnm4vcnal aKoJtCISsJXl7GNp7GWCufR bcDnOoHAK9ZeZ6UIB5rZGkf M5nbHhz kpmseM7xOnr+TUFMRTwvdGQ +MLYmJXY3dLmhFAakIJQxtE 7tDRDxU0e2ZcFeRiQ0BHpzU 3BhZGRp xvrcIc45jM2pQdTuVzK6TOa yY4MlfjJ6ISIhaRVxMSnuJM F3B60bs0T0BUBpVJRpROR3g DF0qW9z bGlnbjogbGVmdDsgdmVydGl hDUsgSLdoK995UJApbZecZm CeoNLPkPBkCYA5AJ66LZ29W 3RyPjwv dGFibGU+PHRhYmxlIHdpZHR nJXtwEEVdCeQvrBxxOR8rHa 9yZGVyLWNvbGxhcHNlOiBjb 2xsYXBz HGrwTC0lxEprM3JxdAB7XEH au1o5Wg74M31xV6MdqBB+PG KrkVQ0yXX6cF3zHiRdJdS7D NyeF464 GtAhwZXiHdcmo3hyv8zrhPv 0TnNgTXTdwrOemRreIEI3p6 GkGg09Z99iMAeeSKQkUKPmY CUiIHZh fAhbzo9esA5hQg6+PGNvbCB 3hYD0dJ2gDeCqDjQ8UAcvO3 82ZaXeaLUqMyuhB10jL4Kky XA+PHRy Boa9VRTjqFumVX3lqGYxNIq bEh9vGYG3FyYkDlQeAHlaK2 IdUDFdwghnjmhrvJM9JNRzZ DUwaW47 Dk3eeQzpGk2wDOZeIKP1JDC tqNEbD6ByhR8uArHnOQRxXF JhV4DpbNJwISfxS568UUtjA vP8VJVz ybChJ7DrPOWdfZvpVfQ9l9V 0Bk8BqOxkhGBhXN8tNnZhBN x8R5HvDig6SODvjQthDT0hs GFkZGlu Ht6pmQnozKgxED5lFKMljkr wx637DzVma7leOPBrcEJnSJ evJVU6H84bd8G4MJIcLKDoK TM1gMV1 sL6dyByvvctusWKmhYiswpD wqIicGVpqKDynX729XFVdfK kjXnFICau4Y3OdNud3KQRou SjnAN5p fJCgMNgmYq4gjJodpOjyCQ3 mSHDmeyeey925CkGjd3nzJN OahVWhDWctZWS4Z72vx8D5P CMwMDAw EQA8zLT4uS6xoZldstrokEQ mdDsgdmVydGljYWwtYWxpZ2 46QIDbyVovBm3ICyx0G0ZxM mf2WHLy qVxpMD7evDCpKQnpUs2mdSh sqHtqPK5tURYdjnisz178Ec Qmk6oyFOVanOYqDTahTSG5A 28ac1C2 CEJzKEFuTGG7fPV8hD2mnDm nbjogbGVmdDsgdmVydGljYW wgXSkvC408NHFgqOdiYxRhq WVyOjwv dGQ+FA74pf52K9XuUhwwZmf 8TFXqBLS7yWP7mG8fJZTaQH dwz2X2oLW0O2RcldGrin3vj 2xsYXBz ZTo (more content not included)... [facility] Coding Summaryon 06-30-2021 Coding Summary HTMLBase 64 RpexxbblAOa6xKs+PGhlYWQ +SQ0MYPYzJ42onQBgyV5XD2 bATC1NTRMVYKHDYG5NNN9wz DM4DArqB1AdovSa NytzaMHtEJ94SFo0FXG8rSv nJPiesW3lgGVwB2g5DtHzXI 12lB95XYfmHNVsMbR6EgRhi jsgbWFy R6psWqBkgOJzOfm+PHRhYmx lIHdpZHRoPScxMDAlJyBzdH hzYI0tIj0bIIDkHHHofIuug HNlOiBj j3uxPGWjESjfCL1kwHbtY4O yvQE7KNPxw3i3Mt38bGE+PH GbQPK1mOgwJOita181XpPih 9ltPKW5 mRKpBHtuPTT8W52pl1T2UCC yOKIiGYZ0wTZ0qC4oyIffbu whJ8TdmPAxSvQ6QKS3tFOjd N3cbRex ekyhfX0aRvj+O27NPW2CLUA PFZ1VUpg9A6PdAacphIP+PC 51XYAyDC61gMHxkPVqk6hvb Sb9NkFm AVQyDIZ2wQdsDDley6SgAEQ tQ72xjPWyd6W8PJEzgHkytJ MnDtOimQX2cV8sYAzuklgeu 2hvdzsn Okwuu8enue39jS52J59qSFp pRNImFGF1GCQqFTBttKdaww 4fwL9qMp3+VCopa3ftz8uxz Zd8UcSw DQEamfTbgCvgWNK2a3KyVl7 4Q0KnhInnk3WmXja6jf48hU Pax3C0hHT3YBjfVQIxeN8vV WxlZnQ6 KIKpOaAjwZ30cUAxSAhwTd6 egLudtViqEV8rBBBpfcdxYV KfhI7yFPAvuNSqnEilDB1pC TBpbjtm v276KmGrLPL4ANNpxVByN9Q swZ2zXcHcKHEgENEaR3ZaqM MuOQskD044ICjiKoO3YNYqi wFsO9Mr UGPqwPwfIrO7o1N9Dk1Eq8S keazgOQG8UPebILP7FgJcRk LiQsF8K2OjWwo2VGNyvKoaL P6oQ6Pc SKLtqnpfkmyefKP6SFOyTSE vqG23sWBiSKefEq1sr2K8r9 86LOOpOYSijX79Rz1baTkuK TBwdCBU nO3yxquph7jgjflrUvUuPJK aRVh0PNt1BJMejCwhFhOxCH X3LfK4WAT5lHBzfZ7zxBhnh wlceY4t Oyc+T57dmD0uYFD8MRE7ckb oGFJuohBcUX27FH30G5KpMq wvdGFibGU+PGRpdiBzdHlsZ C6xZmXu b8ynm8ZkZQdyL6WuFOVoHZj aUeq2NPBtBZR0dWG9sE8jUF SvDRkqw1X4iDO7H7DthqGvl g5xk9bq NUSjFGpeK91bxEGim8Q6JCL tjUC9AEIimXzhDwMhaP00Uk c+CVMnoBqid8OuVtcpf4zua 2krlIy5 KzXaIIVftsShyByhFCD4n9L kKg51O22tPWmqNEVeKUJcPY IlJHEblBgwik0ymI4pLb0+P GNvbCB3 nJY5rV3tIUFtOyB3YIxkD77 1DyPhxFJdExmvc8ihk4pwtQ g0MeIpZIRzhfOpeRszDZT2n 1WxFs88 I84aLNenIMHkHVAmQSRkVMF wnXnovw0wkO6vCa0+PC9jb2 xsnb67pA59bDU+RFBqNNW6r WxlPSdw AAUigM1gBIzzXgN4GEKnYnG wdD33pBWzBRadKr1etRlffP btDX0jRZKyqigux657XoAtg 2xkIDEw zWDyQNonQCJ3Z36de0K1PNB vMOPbUNH0fRE3qU8yzAwjlu ogbGVmdDsgdmVydGljYWwtY SkcQ206 IHRvcDsnPlBhdGllbnQgTmF xOQc3L0ZtRil2XXKdrWgoLG 9kkQJnYBxcWl1prSstpRfkZ I6mFYAl qlnof693GcUnf7bzMSWnzWL fQAsoUFJ8O19py1A5DGSqWE TxELZ1dXC2nD7leBjkhpwor GVmdDsg rkMjoOarTYgxOHtaG099RQG niVkaUiTovoUkOMJsxCU4EQ 69CD29mODjz1W8tHE1X6ZfP GRpbmct sueznAL5EDYdKUOobI81Fm8 kqCzmGy8lYTMzUSL3QJOifZ GgO5RltV1lTuVpLQRjEPEkX 3RleHQt JJwkW898AWnxIvZ9OXPtcwP oB1VbFRUziVduOdL1r7Q6Rc 4NR4R1LO39VL85wXTjv2P1v SO5W5Cb OIVxdzlhmtulrSR5RGSnYLT vzA35Uj9uaBhhWr9fMSGmGZ A1WDLllNFdW2TdkD2kObXpD DAwMDAw P9OgrMKuKFxzB010IIhtPiS 1KYAkouSgU4EwNCRxzMpmGz S0g4A9Zg1GWSf9BT72GL85g ZJni7L6 qQD0J8HuFYRcgoajdbiywFN 0NDFdTPYuhI73Dd2gzYvaDz 8kVAWiMVI9AZAjwFFpK1Iin H9nYeOs NWEwJMShZ6MtsUMyRBiuP88 0CQnfUkW2FLQkzmQsK4TqNN BztBieKbD1d1S7Rp4EJAPyW O04CCV2 bTX8XN66PK91H9SrWjhwwMQ ibGU+PHRhYmxlIHdpZHRoPS rwIVApUsLqhIwpBC2dIg6wH GVyLWNv bXhorWHtNcBkc0ucFPLyIWk aLO0xxFouU2PmfAG5FKCmw9 n0Vd06B13cG2SynYI+PGNvb NB3vPO8 nV8qKdKiBrS6QAytU958StD gdHWxJunnf8hku1itrQq4Bs J5GJWpnqSyvKsyNEV9w3DlM w71L60z IHdpZHRoPSIxNSUiIHZhbGl lab7iwP4yLx2+SHExdQO4nW G9yW9ePoVuGlS3ZXktM774K nRvcCIv Jbmpx9ocw8gkdDw0RdYmUQC ipuFyfYpjZQF0r7ShQz59E9 ZxmCujq1AgQso8ey57bEJid 4W7zHJ7 S5QpLMFjokdgpBQsaUjpKQ3 oZJEwpndsFFNmvI9vKEXlT8 m4FgNaNcV1HHjkK1EgjcZ4P DEwcHQg HVvdOMN2J98cp3Y5LKKwAJI fWWM8xNS8qD9neSotskkuhA VmdDsgdmVydGljYWwtYWxpZ 246IHRv lQpmUUDqnO7iOSGtgUWhiMk eBM0oGWXgcurdMgBVGt2CUl brFfpDDtBFVG59XK43vZNwi 5Q6cSN5 D8DwOXMupdehtpfacPN9OYY kOTKwvC06lGDaOPqdOl5ru9 M3t241BHBkGFCxqQ51Nw6dr DogMTBw lFPTtN4sdyeuo0dtfgqvRvF hMDTfLYf5SJz0HMZgxSwuPf MsOEZ5VtX7GDN8xQTfzO1ww Glnbjog aF0pUhq+WAPuMPLtNVt8GWq vdGQ+YZPnXTX4aBdeGFtoEJ OfhY4xRRFfY8j4IqQtOiE4J EjxN4Yf XLWjvqgmLo79yO1lIlLsLyL 5AMptF1TuleE7VKKdiVCwGU tsFDW5V43fq4N5WXQfSLGhH XQ1vEN2 yV3dhXbmtchyiWDddIbumvS ssKdmWSsjDAxxT668HQLyzB wrRuJjSYjwGYEaRR15DE68b QIhw2A0 oCK1B4CrWENmuasnqxprbVP 8ZFUxKIGygE53yVLzMKgyBd 5pu2D4k454LZPxJMGgxI13I a7qiNfj GBZdvKBOkW0xdtwbz7hxqwx uQcIvNAIkIAz8NFh3UOLuvW oqUeJbVOU9PaR1NXU1qPGxx M4ooQgg jjqaaI6tLxe+TUFMRTwvdGQ +ZVPoRLA9wGvgFAswIOOttL 0gHLYaV6m7CfGqGdT4KOirM 3BhZGRp znbpHf81yO9jJbGnQhK4GKy nX6FvntO4FCFjsYXeSRjyHP C2P80rw4L9RIWaOSRiOAP8l EH5tF7p bGlnbjogbGVmdDsgdmVydGl wPPteWEunQ971AAQsvFoyBr 8MZR53DE16D4GwXqktxMByy +PHRh YmxlIHdpZHRoPScxMDAlJyB akStyRH8oWl8fFHKpFTXisY udgUHpHcQto5evOEOsHDlyL E4sqMpz C8EncAH2TRWxr9c5Ot68E76 lJ6DpmTE+SBVddCJ6yAV2qJ 5cWuXcWyW0IOgbY523OnHqd CIvPjxj j0dtu0iyaQo6DoUhYMWwujN yhYtbDCT7h5WiUe01B49wES dpZHRoPSIyMCUiIHZhbGlnb e1jqZ8f Ii8+XPKjvXM2bVR0kH3uSaR lCbU2TRfnW125VpIpqLGjYz ohZ16sR7ClvBS+JKJzOge5K CBzdHls OO1axJZaVUbjHb1pDRR8PcH dEiQvSIlpK7TbHMXkyvtbnp hzwEY6EZPnSLWhhA10Bk1je MrhOo1n CRYgUQC5ZMLphDGuP5TvbI7 iTnQlSCTiAZEdT1CjlDUbDM vcU630XFzmUwW8GKNsnjRvY 2FsLWFs sLnuInY8o5J9Kg4HqIyrcBS cYT8mInTrRAs7C3YaEru5HE DueZzdPF9rfWTdZOrbIj8hw WdodDog PI4pILBxfbrfs259BaGkt8s yPEEwvPWqNTcdJRC7P61gc0 W5CGRmVRFuRBL1tLN6dV8qe Glnbjog bGVmdDsgdmVydGljYWwtYWx dB185XHDkdFsgVrDYWwv6Z2 PxIra0IWYnrTlmIW2zlXOyA OqqPq9x qIlguDkbIE4qYBUizigig55 3DbOri4kyRLKluRCqDPubIO K8Y34km3X4NLNqKPOuIVQ1s GK7nB8i bGlnbjogbGVmdDsgdmVydGl uIFcwBHkbV943XJApwMlwEm 0OWxv4U4VvBen5ICTtaYhfJ R1bwXEf NWcsYl1ufVbylLokAL9xFXC pohvuv045RbLha0coIQSdpA NgCBeuMVS1M79nj4U2KZCbR DAwMDA7 dNF1eB8kqOcrejwyhKYxxKm bpdLroYxwVJkdJMamI207LH RvcDsnPlBheWVyOjwvdGQ+P D57ch67 G7WrHccvFgo4NOWeTYP5eHE 7dG4lOHNyQKhev8Q0qQP5U4 UujtTfxd2pf4ayJLLdBEncA 29sbGFw c2U (more content not included)... [facility] Consent Formson 06-30-2021 Consent Forms [id number]#1.00O TGTIFF [facility] Outside Recordson 06-30-2021 Outside Records [id number]#1.00O [facility] Telemetry Stripson Telemetry Strips [id number]#1.00O [facility] Anesthesia Noteon 06-29-2021 Anesthesia Note Patient: AFRICA LANTIGUA Age: 41 years Sex: MALE : 1980 Associated Diagnoses: None Author: Durga Reardon MD Postoperative Information Anesthetic utilized: General. Assessment Anesthetic outcome No anesthetic complications noted. Plan Transfer/ Discharge: Patient can be discharged from PACU when criteria met. Condition good. [Electronically Signed on: 06/29/2021 15:07 EDT] Durga Reardon MD [Verified on: 06/29/2021 15:07 EDT] Durga Reardon MD [facility] Anesthesia Note Patient: AFRICA LANTIGUA Age: 41 years Sex: MALE : 1980 Associated Diagnoses: None Author: Durga Reardon MD Preoperative Information Anesthesia history: Family history. Patient history: No prior anesthesia problems. Review of Systems Constitutional: Negative. Cardiovascular: No Chest Pain. No SOB. Health Status Allergies: Allergic Reactions (All) No known allergies Current medications: Home Medications (10) Active acetaminophen-oxycodone 325 mg-5 mg oral tablet 1 tab(s), PRN, PO, q4hr albuterol 90 mcg/inh inhalation aerosol 1 puff(s), PRN, INH, BID amitriptyline 10 mg oral tablet 10 mg = 1 tab(s), PRN, PO, HS amitriptyline 25 mg oral tablet 25 mg = 1 tab(s), PRN, PO, Daily gabapentin 300 mg oral capsule 300 mg = 1 cap(s), PO, TID ketorolac 10 mg oral tablet 10 mg = 1 tab(s), PRN, PO, q4hr lisinopril 10 mg oral tablet 10 mg = 1 tab(s), PO, Daily ondansetron 4 mg oral tablet, disintegrating 4 mg = 1 tab(s), PRN, PO, Once tamsulosin 0.4 mg oral capsule 0.4 mg = 1 cap(s), PO, Daily tiZANidine 4 mg oral tablet 4 mg = 1 tab(s), PO, q8hr Problem list (past medical history): All Problems Asthma, acute / SNOMED CT 835717947 / Confirmed Hypertension / SNOMED CT 2177823551 / Confirmed Current smoker / SNOMED CT 675624760 / Confirmed Histories Family History: No family history items have been selected or recorded. Procedure history: Lumbar spinal fusion (13115703). Social History Electronic Cigarette/Vaping Assessment Electronic Cigarette Use: Never. Alcohol Assessment Use: Never. Tobacco Assessment 5-9 cigarettes (between 1/4 to 1/2 pack)/day in last 30 days Tobacco Use:. Substance Abuse Assessment Substance use: Never. . Social & Psychosocial Habits Alcohol 06/18/2021 Alcohol Use: Never Substance Abuse 06/18/2021 Substance use: Never Tobacco 06/18/2021 Smoking tobacco use: 5-9 cigarettes (between 1 Electronic Cigarette/Vaping 06/18/2021 Electronic Cigarette Use: Never . Physical Examination Pain assessment: Self-reports pain The location is: operative site. . General: Alert and oriented. Airway: Mallampati classification: II (soft palate, fauces, uvula visible). Temporomandibular joint mobility: Good. Respiratory: Lungs are clear to auscultation. Cardiovascular: Regular rhythm. Neurologic: Alert, Oriented. Review / Management Laboratory Results Plan [place] [employer]hesi[employer]#(ASA) physical status classification: Class II. Anesthetic Preoperative Plan Anesthesia: General. . Anesthetic plan, risks, benefits, and alternatives discussed with the patient and/or family. Patient verbalized understanding. Informed consent was given. Anesthetic technique: General anesthesia. [Electronically Signed on: 06/29/2021 13:50 EDT] Durga Reardon MD [Verified on: 06/29/2021 13:50 EDT] Durga Reardon MD [facility] Inpatient Patient Summaryon 06-29-2021 [place] [address] Patient Discharge Instructions Name: GRZEGORZDENISE : 1980 Patient Address: [address] [place] [address] Primary Care Provider: Name: KATIE SALGUERO After you are discharged if you find you have any questions, please, call [phone] ext [phone] to speak to a nurse. Discharge Diagnosis: Kidney stone Prescription Information: If you have been given a prescription for narcotics, seek immediate medical attention if you have any difficulty breathing or any sudden status changes such as confusion and sleepiness. If you or anyone you know is experiencing suicidal thoughts, mental health, alcohol and/or drug addiction problems; contact the [facility] 02/05 Crisis Hotline -Text 4HAYJ on 198238. If you received any narcotics, sedation, or any other medication that causes drowsiness for the next 24 hours, unless otherwise directed: ? Do not drive a car. ? Do not operate machinery such as power tools, lawn mowers, drills, sewing machines, or stoves ? Avoid alcoholic beverages and drugs for allergies, nerves, or sleep ? Do not make important personal or business decisions or sign any legal documents [facility] would like to thank you for allowing us to assist you with your healthcare needs. The following includes patient education materials and information regarding your injury/illness. DENISE LANTIGUA has been given the following list of follow-up instructions, prescriptions, and patient education materials: Follow-up Instructions Medications During the course of your visit, your medication list was updated with the most current information. The details of those changes are reflected below: New Medications Printed Prescriptions acetaminophen-hydrocodo ne ([place] 5 mg-325 mg oral tablet) 1 tab(s) Oral Every 6 hours as needed for pain. Refills: 0. Medications That Were Updated - Follow Below Instructions Printed Prescriptions Updated: tamsulosin (Flomax 0.4 mg oral capsule) 1 cap(s) Oral every day. Refills: 0. Medications to Continue That Have Not Changed Other Medications acetaminophen-oxycodone (acetaminophen-oxycodon e 325 mg-5 mg oral tablet) 1 tab(s) Oral Every 4 hours as needed for pain. albuterol (albuterol 90 mcg/inh inhalation aerosol) 1 puff(s) Inhalation 2 times a day as needed for wheezing. amitriptyline (amitriptyline 10 mg oral tablet) 1 tab(s) Oral At bedtime as needed migraine headache. amitriptyline (amitriptyline 25 mg oral tablet) 1 tab(s) Oral every day as needed migraine headache. gabapentin (gabapentin 300 mg oral capsule) 1 cap(s) Oral 3 times a day. ketorolac (ketorolac 10 mg oral tablet) 1 tab(s) Oral Every 4 hours as needed for pain. lisinopril (lisinopril 10 mg oral tablet) 1 tab(s) Oral every day. ondansetron (ondansetron 4 mg oral tablet, disintegrating) 1 tab(s) Oral once as needed as needed for nausea/vomiting. tiZANidine (tiZANidine 4 mg oral tablet) 1 tab(s) Oral Every 8 hours. It is important to always keep an active list of medications available so that you can share with other providers and manage your medications appropriately. As an additional courtesy, we are also providing you with your final active medications list that you can keep with you. acetaminophen-hydrocodo ne ([place] 5 mg-325 mg oral tablet) 1 tab(s) Oral Every 6 hours as needed for pain. Refills: 0. acetaminophen-oxycodone (acetaminophen-oxycodon e 325 mg-5 mg oral tablet) 1 tab(s) Oral Every 4 hours as needed for pain. albuterol (albuterol 90 mcg/inh inhalation aerosol) 1 puff(s) Inhalation 2 times a day as needed for wheezing. amitriptyline (amitriptyline 10 mg oral tablet) 1 tab(s) Oral At bedtime as needed migraine headache. amitriptyline (amitriptyline 25 mg oral tablet) 1 tab(s) Oral every day as needed migraine headache. gabapentin (gabapentin 300 mg oral capsule) 1 cap(s) Oral 3 times a day. ketorolac (ketorolac 10 mg oral tablet) 1 tab(s) Oral Every 4 hours as needed for pain. lisinopril (lisinopril 10 mg oral tablet) 1 tab(s) Oral every day. ondansetron (ondansetron 4 mg oral tablet, disintegrating) 1 tab(s) Oral once as needed as needed for nausea/vomiting. tamsulosin (Flomax 0.4 mg oral capsule) 1 cap(s) Oral every day. Refills: 0. tiZANidine (tiZANidine 4 mg oral tablet) 1 tab(s) Oral Every 8 hours. Take only the medications listed above. Contact your doctor prior to taking any medications not on this list. Diet & Activity Patient Activity Level: Patient Diet: Patient Activity Restrictions: Comment: Patient education materials, if any, will display below Viruses or Bacteria What?s got you sick? Antibiotics only treat bacterial infections. Viral illnesses cannot be treated with antibiotics. When an antibiotic is not prescribed, ask your healthcare professional for tips on how to relieve symptoms (more content not included)... Normal [facility] MAGR Intraoperative Recordon 06-29-2021 MAGR Intraoperative Record MAGR Intra-Op Record Summary Primary Physician: Jm Brown MD Finalized Date/Time: 06/29/21 15:01:13 Pt. Name: DENISE LANTIGUA/Sex: 1980 MALE Med Rec #: [id number] Physician: Jm Brown MD Financial #: [id number] Pt. Type: D Room/Bed: / Admit/Disch: 06/29/21 10:36:00 - Institution: Case Times MAGR Entry 1 Patient In Room Time 06/29/21 13:29:00 Out Room Time 06/29/21 14:36:00 Anesthesia Start Time 06/29/21 13:35:00 Stop Time 06/29/21 14:36:00 Surgery Start Time 06/29/21 13:44:00 Stop Time 06/29/21 14:30:00 Last Modified By: Aleksandar DELACRUZ, Beatrice Mayo 06/29/21 14:59:17 Case Attendance MAGR Entry 1 Entry 2 Entry 3 Case Attendee Kevin RODNEY, Jm Reardon, Durga Huertas RN, Beatrice Mayo Role Performed Surgeon - Primary Anesthesiologist of Juice Standardizer Record Time In 06/29/21 13:29:00 06/29/21 13:29:00 06/29/21 13:29:00 Time Out 06/29/21 14:36:00 06/29/21 14:36:00 06/29/21 14:36:00 Procedure Cystoscopy with Holmium Cystoscopy with Holmium Cystoscopy with Holmium Laser Laser Laser Last Modified By: Aleksandar DELACRUZ, Beatrice Huertas RN, Beatrice Huertas RN, Beatrice Mayo 06/29/21 14:59:25 06/29/21 14:59:25 06/29/21 14:59:25 Entry 4 Entry 5 Entry 6 Case Attendee Renetta Dong RN, Kim Beckwith Role Performed Scrub Personnel Scrub Personnel Broom Builder Time In 06/29/21 13:29:00 06/29/21 13:29:00 06/29/21 13:29:00 Time Out 06/29/21 14:36:00 06/29/21 14:36:00 06/29/21 14:36:00 Procedure Cystoscopy with Holmium Cystoscopy with Holmium Cystoscopy with Holmium Laser Laser Laser Last Modified By: Aleksandar DELACRUZ, Beatrice Huertas RN, Beatrice Huertas RN, Beatrice Mayo 06/29/21 14:59:25 06/29/21 14:59:25 06/29/21 14:59:25 General Comments: MERLENE SANCHEZ-HOLMIUM LASER Surgical Procedures MAGR Pre-Care Text: A.20 Verifies operative procedure, surgical site, and laterality Im.150 Develops individualized plan of care Entry 1 Procedure Cystoscopy with Holmium Primary Procedure Yes Laser Primary Surgeon Kevin RODNEY, Jm [place]brook Surgeon Comment CYSTOSCOPY BILATERAL URETEROSCOPY HOLMIUM LASER LITHO, BILATERAL STENT PLACEMENT Start 06/29/21 13:44:00 Stop 06/29/21 14:30:00 Anesthesia Type General Surgical Service Urology Wound Class Clean-Contaminated Technique Details Closure Technique N/A Entire procedure No was performed via laparoscope or robotic assistance Last Modified By: Beatrice Huertas RN 06/29/21 14:59:41 Post-Care Text: O.730 The patient's care is consistent with the individualized perioperative plan of care General Case Data MAGR Pre-Care Text: A.350.1 Classifies surgical wound Entry 1 Case Information OR MAGR OR 01 Case Level Level 4 Wound Class Clean-Contaminated Specialty Urology ASA Class 2 Diagnosis Preop Diagnosis URETERAL CALCULI Postop Same As Preop No Postop Diagnosis HOLMIUM LASER; LEFT STENT PLACEMENT; RIGHT STENT PLACEMENT THEN REMOVAL Blunt or No Is the procedure No penetrating injury considered occured prior to Emergent/Urgent? the start of the procedure: Last Modified By: Beatrice Huertas RN 06/29/21 15:00:22 Post-Care Text: O.760 Patient receives consistent and comparable care regardless of the setting Time Out MAGR Entry 1 All team members Yes Surgeon, Yes have introduced anesthesia, nurse themselves by name confirm patient, and role site, procedure Surgeon reviews Yes Anesthesia team Yes critical or reviews any unexpected steps, patient-specific operative duration, concerns anticipated blood loss Nursing team Yes reviews sterility (including indicator results) and equipment issues/concerns Antibiotic Antibiotic Yes prophylaxis given within the last 60 minutes Is essential Yes imaging displayed? Last Modified By: Beatrice Huertas RN 06/29/21 13:05:57 Patient Positioning MAGR Pre-Care Text: A.280 Identifies baseline musculoskeletal status Im.40 Positions the patient Im.80 Applies safety devices Entry 1 Procedure Cystoscopy with Holmium Body Position Low Lithotomy Laser Left Arm Position Extended on padded arm Right Arm Position Extended on padded arm board board Left Leg Position Secured in Stirrup Right Leg Position Secured in Stirrup Press Points Checked Yes Positioning Device Safety Strap, Stirrups Outcome Met (O.80) Yes Last Modified By: Beatrice Huertas RN 06/29/21 13:06:10 Post-Care Text: E.290 Evaluates musculoskeletal status O.80 Patient is free from signs and symptoms of injury related to positioning Skin Prep MAGR Pre-Care Text: A.30 Verifies allergies Im.270 Performs skin preparation Im.270.1 Implements protective measures to prevent skin and tissue injury due to chemical sources Entry 1 Skin Prep Syntegrity Prep Agents (Im.270) Chlorhexidine Gluconate Prep By Beatrice Huertas RN Prep Area (Im.270) Penis and scrotum Skin Prep Agent Dry Yes Without Pooli (more content not included)... [facility] MAGR PACU Recordon MAGR PACU Record MAGR PACU Record Summary Primary Physician: Jm Brown MD Finalized Date/Time: 06/29/21 15:39:52 Pt. Name: DENISE LANTIGUA/Sex: 1980 MALE Med Rec #: [id number] Physician: Jm Brown MD Financial #: [id number] Pt. Type: D Room/Bed: / Admit/Disch: 06/29/21 10:36:00 - Institution: PACU Case Times MAGR Entry 1 In PACU I 06/29/21 14:48:00 Discharge from PACU 06/29/21 15:35:00 I Last Modified By: Sendy Zamorano RN 06/29/21 15:39:50 Finalized By: Sendy Zamorano RN Document Signatures Signed By: Sendy Zamorano RN 06/29/21 15:39 [facility] MAGR Postoperative Recordon 06-29-2021 MAGR Postoperative Record MAGR Phase II Record Summary Primary Physician: Jm Brown MD Finalized Date/Time: 06/29/21 17:10:47 Pt. Name: DENISE LANTIGUA/Sex: 1980 MALE Med Rec #: [id number] Physician: Jm Brown MD Financial #: [id number] Pt. Type: D Room/Bed: / Admit/Disch: 06/29/21 10:36:00 - Institution: Phase II Case Times MAGR Pre-Care Text: Patient is free from s/s of injury. Patient remains free from compromised physical state related to surgery or anesthesia. Patient comfort maintained. Patient/family verbalize understanding of discharge instructions. Entry 1 In PACU II 06/29/21 15:34:00 Discharge from PACU 06/29/21 16:27:00 II Last Modified By: Beatrice Campbell RN 06/29/21 17:10:41 Post-Care Text: The patient remains free from s/s of injury. Patient's vital signs stable, circulation maintained, return to preop mental and physical status, opsite/dressing intact, minimal or absent nausea and vomiting, tolerates po intake. Patient verbalizes adequate pain control. Patient/family express understanding of discharge instructions. Finalized By: Beatrice Campbell RN Document Signatures Signed By: Beatrice Campbell RN 06/29/21 [facility]:10 [facility] MAGR Preoperative Record MAGR Pre-Op Record Summary Primary Physician: Jm Brown MD Finalized Date/Time: 06/29/21 13:49:25 Pt. Name: DENISE LANTIGUA Reagan /Sex: 1980 MALE Med Rec #: [id number] Physician: Jm Brown MD Financial #: [id number] Pt. Type: D Room/Bed: / Admit/Disch: 06/29/21 10:36:00 - Institution: Pre-Op Case Times MAGR Pre-Care Text: Patient will be optimally prepared for surgery. Patient is free from s/s of injury. Provide information to patient/family related to plan of care. Verify patient allergies. Confirm identity and verify consent before the operative or invasive procedure. Entry 1 Patient Arrival Time 06/29/21 11:05:00 Preop Departure 06/29/21 13:25:00 Last Modified By: Beatrice Huertas RN 06/29/21 13:49:20 Post-Care Text: Patient is prepared mentally and physically and is ready for surgery. The patient remains free from s/s of injury. Patient/family express understanding of plan of care and participate in decisions affecting his or her perioperrative plan of care. Allergies documented appropriately. Patient identifiers and consent correct. General Comments: Denies chest pain, shortness of breath or illnessess. Denies pacemaker/defib. Denies sleep apnea. Informed of not doing anything for the next 24 hours that requires concentration. Finalized By: Beatrice Huertas RN Document Signatures Signed By: Beatrice Huertas RN 06/29/21 13:49 [facility] Patient Handouton 06-29-2021 Patient Handout [facility] XR Abdomen Single View (KUB) on 06-29-2021 XR Abdomen Single View (KUB) EXAM: XR Abdomen Single View (KUB), XR Fluoroscopy Up to 1 Hour HISTORY: SURGERY Stent placement. COMPARISON: CT abdomen and CT pelvis studies dated 06/01/2021. TECHNIQUE: 2 spot film views of the abdomen were obtained. FINDINGS: Image on the right demonstrates proximal portion of the right double-J ureteral stent as well as a portion of the guidewire. No other details are identified. Image on the left demonstrates proximal portion of the double-J ureteral stent, no other details are identified. Total fluoroscopy time for the procedure was 21.9 seconds. Procedure was performed by Dr. Brown. IMPRESSION: Bilateral double-J ureteral stent placement as described. Fluoroscopy was utilized by the surgeon during this procedure. Final Dictated by: Juwan Pryor MD Dictated DT/TM: 06/29/21 3:16 Signed (Electronic Signature): Juwan Pryor MD 06/29/21 4:13 pm Technologist: [facility] XR Fluoroscopy Up to 1 [place] n 06-29-2021 XR Fluoroscopy Up to 1 Hour EXAM: XR Abdomen Single View (KUB), XR Fluoroscopy Up to 1 Hour HISTORY: SURGERY Stent placement. COMPARISON: CT abdomen and CT pelvis studies dated 06/01/2021. TECHNIQUE: 2 spot film views of the abdomen were obtained. FINDINGS: Image on the right demonstrates proximal portion of the right double-J ureteral stent as well as a portion of the guidewire. No other details are identified. Image on the left demonstrates proximal portion of the double-J ureteral stent, no other details are identified. Total fluoroscopy time for the procedure was 21.9 seconds. Procedure was performed by Dr. Brown. IMPRESSION: Bilateral double-J ureteral stent placement as described. Fluoroscopy was utilized by the surgeon during this procedure. Final Dictated by: Juwan Pryor MD Dictated DT/TM: 06/29/21 3:16 Signed (Electronic Signature): Juwan Pryor MD 06/29/21 4:13 pm Technologist: [facility] 2019 Novel Coronavirus (CoVI D-19), THERON LCon 06-27-2021 SARS-CoV-2 (COVID-19) RNA THERON+probe Ql (Unsp spec) Not detected Invalid Interpretation Code [facility] Comment on above: Order Comment: [id number] Result Comment: This nucleic acid amplification test was developed and its performance characteristics determined by [facility]. Nucleic acid amplification tests include RT- PCR and TMA. This test has not been FDA cleared or approved. This test has been authorized by FDA under an Emergency Use Authorization (EUA). This test is only authorized for the duration of time the declaration that circumstances exist justifying the authorization of the emergency use of in vitro diagnostic tests for detection of SARS-CoV-2 virus and/or diagnosis of COVID-19 infection under section 564(b)(1) of the Act, 21 U.S.C. 360bbb-3(b) (1), unless the authorization is terminated or revoked sooner. When diagnostic testing is negative, the possibility of a false negative result should be considered in the context of a patient's recent exposures and the presence of clinical signs and symptoms consistent with COVID-19. An individual without symptoms of COVID-19 and who is not shedding SARS-CoV-2 virus would expect to have a negative (not detected) result in this assay. Performed At: [address] [id number] Floresita Cisneros PhD Ph:[phone] Performed By: #### 6 [id number] #### [facility] (DEFAULT) [address] [place] [address] Progress Note - Nurseon 06-10 Progress Note - Nurse Spoke with pt victorina pantojaing arrival time of 1030 and NPO after midnight. Verbalized understanding. [Electronically Signed on: 06/26/2021 10:08 EDT] Beatrice Campbell RN [Verified on: 06/26/2021 10:08 EDT] Norberto , Beatrice A [facility] Coding Summaryon 06-24-2021 Coding Summary HTMLBase 64 OxysrcwoVMz6cKm+PGhlYWQ +DQ3NOWCzN18rzVBuvE4JG9 cXMW6BNSTYJFHETM4SVG5yq RN8IKvxF9JsdsQt TvgszHGbDP29DKd4DNI1dOn wENoteU4liESrZ0l7ZbJhWR 79bB07DOxqQZVtSbP4MhMdq jsgbWFy J6yiLpZzwDLqUul+PHRhYmx lIHdpZHRoPScxMDAlJyBzdH dpYO6vKv1tZEAmJFApsNqmc HNlOiBj k5oeDAQbKHmvEQ0obVdxL8S awNF1ZLYma4y4Oa11bDP+PH HwVVZ9fWeyELbpg848TdMxp 0ksOKL1 fGBcCDgcYZV7S23gd1K3CPW vMQOnIQN6mUN5mI5seNktjq jtJ8OwcXSeQsC9YMJ0mXHgn G4mbFuf xugdaK6kFku+R93HST7GBIT FCJ4MVpi1A2SuFzrnwJI+PC 37EJAiEX99pYQbzODsf3yzu Ub8WnMd JYGvWEM2dDzmDQjbp6UmMJF wO15odRDro7V8XWQknEkdmU SdEfTcfUD4rQ4rGWtqhnvae 2hvdzsn Jljec4jpsp49eA81U50cNTj hZOUqIDV4CEDnLPJylWmhei 6jrJ9iXb5+BIxez8qbw7fub Dj6VvLu ODYlgxCbhMejUPA5u0LhYr5 7H1FnpZhta7JuLwt7kj53uW Kby7W1fDE5IDgjINEflE3uE WxlZnQ6 VEHaUrFbqS87uAImZPzkTb9 nfXlbxXynAS4aFJFmnlnhFJ RfyK3rOLDulKOjbFchWZ3yL TBpbjtm g794AjShJDO8JVPvwYNgD5K ehJ3oBbTdBSIsTCTqY8NuzQ PjENqjU387RJsqStM4GDXez qQcK2Eg PIVypIbmHfQ9u2O2An8Pi2I qgyjhGKI2WNicSAC5LcO9Nz ZcRyW8T7XuTqu8BCKywQjrQ O7xD3Fw HFNtudzmotapoMS5SAInNRA hnQ42fRDeUEocXq1sz2E0d2 70GYQyARBqsI10Fk4etSvxJ TBwdCBU zO6wapgzm7ojbwwdQsQmRZZ yRIb6NSj6WNTtcXbsMvTmWX Z5DiO0GBM7mZShxF0uyLyeh fqaoC0j Oyc+Y54arM4sNZD9WRU7gxi mXDSvbeDmGQ67MD26H6PxKg wvdGFibGU+PGRpdiBzdHlsZ M9rRzWg j4cuj5UjXJcmG4IePWFnULq xKkx6XNNrABF0dLT9qU4jDV IhJWyqv5G0xZV0S4PkbhRss f4fb5sc PMNxIZbvY79jlIXbt1M1PYA kuWH2FOYcxHtsJxTsrD44Yx c+JHLfdRdga8PmLfzkp9rhm 1rxnRg4 VpOgTPTnnxGfiIjmHNC5s9Y hKu59N46rCVhwJVIySKLbQW ArNSWpoSdmbs8aoF1dEp8+P GNvbCB3 wZT2kW0oONRrUlQ1IDtaW09 4DiHwuWOqGslvi3glv0btuO s7XmNiVHUwczBujFeaBLK7v 7YcFv57 L21rEYrhUUZlZDYrUWZyCUX ryDkmbg4dsE7xEu1+PC9jb2 qgkf61gU77rCW+JDSkZQJ3z WxlPSdw TAIrpX8lFTzpJwH6LROjCbJ mjD06bTVjHBjgFr2kiMurkO duTR8cOETwmnlbl034DhUtd 2xkIDEw lOUjRKjpBBH7F86lz1J7BDF rPWIfUMK9pHH6mQ2mmVftcy ogbGVmdDsgdmVydGljYWwtY IwqM604 IHRvcDsnPlBhdGllbnQgTmF sUWe2Q7QnWda5AXFqoWlxHE 7xlTSmSPbbGt3lnCibtRodF E5tKIJk hvtym979NcEnz8smBLPvsIF sIUztLMU3Z29fi6X2AZIgRV AlYNI1nGP8dO0wxPnvtvxqn GVmdDsg coNmiQyxDCrmCCxyQ824TTR unJhgQeLgiaKcCDKjmOC6BE 02FM79gQJvl2Q1cHE2Z6XlR GRpbmct yiprkJI0BXKeINPxqI56Co9 fiAcdYg3zBUChJZR3SDYbsP CkP8UcjM2gXeAiIZIpVCYoZ 3RleHQt TYfoY027QLoiZyZ2ZAKxpkZ vP4EhTMTqtQfgRiB9k8X7Bs 5YI8H7IT90NY75tTXyy6B3l QS4B0Jb ZGWjnxmzjydkwOY2PPWlOXE zlB97It0ifGiiEk5gAIDvWK O8SVWvvUDyM9ZboL3iVhWpY DAwMDAw U1ZdyOVwXKtkT491CRaaXhN 9IBWmnrWrV0CiQJUjuRrcCn E5q8K3Jg1ORAi6GH70QK77w OWgs0P4 hKY6G5CyRUTrgsmtyaxrtWX 1RYMtGGVqhE69Bh4qvMtsPn 5qMSNgPVN8AHNrnANaP1Elj J3zUdBc FBLrBYQgZ7LmxOGlDNcyA72 4BGdbDuK0IOShhtTaF3KgRR HbqZfqMuI4a9P3Gu0RCLVtP M81XEM8 gRN7CN84KX93I7NbVcdyrWU ibGU+PHRhYmxlIHdpZHRoPS mhNWChJtRsiXkcFH4rYp1zI GVyLWNv tRliiARtDhEii8ncFRHkKCj nXC1zyXirB2ZpjCL1UWSwc6 t6Ad97D77yK0MinTN+PGNvb SY8wQQ7 iG9lXiLxCxW7TQucE566FmE ofLUnShxgb5lvw5pjoAd5Yn W9PEZqwfRkrOtdLLG5k2HlD a43Y35a IHdpZHRoPSIxNSUiIHZhbGl vil0mmJ5eOs3+YAIpwSK3dT P7aB0nMsTqUpN7DPmdG276G nRvcCIv Xrxok5nyq0ysvHk4ThZqHDR oqmCheEriFOC6q1ChUs07N8 WadXcqx4WzPlz1br81eQPrm 9A5vVY0 J6SrPVGnwkrwkHOpxJolXB0 uSAXzynnkALIkpL4kWZShF8 r2BkUcMkU1YRhrB9LnopL3N DEwcHQg EGtjLTC0U50gf3R6ULJkOCJ wEMK0dSK1sO3xwNfzpajxaF VmdDsgdmVydGljYWwtYWxpZ 246IHRv uGfpRAXiuD7uMYQzdUWsuFh fNQ1nCKJdfwwnWwNLHa9XZx zgIdjSWzYJPV59HT99gOSzh 0L8eBH9 D6DqQZJiepxawbrxkZI9YZM zMWQymT74hZIcSKgqEt8bw2 R3b637PIYkDGVklX04Yt2ux DogMTBw zYRLgX3hlrbyk4ljlkwhVoZ vHGGaVPk1UVf7IGVyrUtjVi PlCHO4ZdJ8TGR1oVJanM8ub Glnbjog eL0qOfu+MNLkSSUbOSl7FWq vdGQ+NJGlCQE3jOkiIGxxZV BsiY3aURDjS4e9GtWkOkM9X QecH5Ih YKXtlcrwOs18eU9bBnDiRyJ 0HRbjN6TuhpT4BGNspIQlPP mwXVN8L08io2S4ONCsRAUhT AM6eZT6 jW7atVlodsjblCDclKqvshQ vbEhhBBvtJUofN750IUCddC brNjEvVPwhRJQxHY82UJ99e TOso4U0 oTV8B1ZdKHEbduygdtawkTY 6LWVhYHAkmZ14zJBeTDnpXo 1rk2K7i558WGGwDFGkcM92T m1bfLvf WSHfyHTCpT8fpdkeu4nnbno pYsLcHFCcNKj1UJq3HFYkxY wbZvUyTAD3OtB0LIH5cPUxm A0wlGju txjneC1jAgz+TUFMRTwvdGQ +CRQjJZJ8sMzrXFlhHZBmvW 8nQCTdJ1d8TnNsPdD1SBgmG 3BhZGRp jarkGi14dK6nGwFtRtH8YDz wJ9TytjL1SIYikPIyCIvdHO K9J74cr4Y5HCCzTANbFEV6t PK2pH5l bGlnbjogbGVmdDsgdmVydGl gTZvsWGguM590TGCneYezLq 4RCP22BX15Y8UfSyamkLUbc +PHRh YmxlIHdpZHRoPScxMDAlJyB hvKxsFK3dBd4cRIUnFWStoW akeTQgXlSyr6lqCEDkPSbxC C3ssEfq U7ZydZA0FPVtv5x5Mh20G46 sX0WydXI+OUWypOM3tUX4aH 9kGgBjWgX5GMpcS291WfKfg CIvPjxj w8mnn8sokRy9QjBuJKVaxyA cqZhsRVN5i0QvFj38V05wVO dpZHRoPSIyMCUiIHZhbGlnb b8yhR0c Ii8+KPQatIT7jLB9iH6cOvW aLrD3KCpbR639LzUsqUHvJh eqN33sA8XnrUZ+KEGxTsj9S CBzdHls JH8vvFZyDDmdTt4tYEC4KgP vKfLaYJklW8JuQABsjvpviv xnjJW6VCYvDGUaaR20Jd7mj EzjGt9e YRTsFNY4DWJdxTKkY0IyhX2 kOuQwKQLyBMRcD3DpbSSbUV gtJ305WGcmTzW3SUYtltJxI 2FsLWFs fBbrCdC0h5Q0Rt2WxCjswPD hSX8aGaFnZYq2X6SgFsf1DH ZekLudUX2vuSWhAYbjZd0xp WdodDog JS8aSYUkrcmtz405LqSvt5h uUNRjwVVxABvxWAO1S89fy6 Z0SWCeTWCcTBS2sQZ9zI5fx Glnbjog bGVmdDsgdmVydGljYWwtYWx eR164DXTfeZejIiXXQyx3U0 AfExt8DHSduHamKY8lyOCzQ OxfBb5j rMvpoLaxCX1eWMUwakrsw27 1CoIuh8wuTWUdsSMwEYuuRJ E3V77jx0J2MOWaPKBtTJC0c CY4aF8q bGlnbjogbGVmdDsgdmVydGl yHOrfDNnrS266ORFkoLfaAy 3BLnm6C3FkNke2SEGpvStzB R3kkWQp YXwvLj4zhTgfyPajFG9wFFP zrjizr739TvSkk4leEFCysW BzAYksCZN7U69rd0R7TKZvG DAwMDA7 gDR0oJ4nrSfszffggWNnoDe wtmMujKojJHgvKYxbG483CK RvcDsnPlBheWVyOjwvdGQ+P T29em07 A2LzKerlDpl9NWZqAGP2mLL 8oZ6aDFZzIJqtr8R7wLZ8P8 BxckFeam2ax1exEWRmIKluE 29sbGFw c2U (more content not included)... [facility] Consent Formson 06-22-2021 Consent Forms [id number] TGTIFF [facility] C Urineon 06-20-2021 C Urine No growth at 2 days. Normal [facility] Comment on above: Performed By: #### 6 [id number] ####[facility] (DEFAULT)[address] [place] [address] Provider Orderson 06-19-2021 Provider Orders [id number]#1.00O TGTIFF [facility] .Auto Diff 1on 06-18-2021 Auto [place] % 6 % Normal -12 [facility] Comment on above: Performed By: #### 7 [id number], [id number], [id number] ####[facility] (DEFAULT)[address] [place] [address] Baso Abs# 0.1 x10 Normal 0.0-0.2 [facility] Comment on above: Performed By: #### 7 [id number], [id number], [id number] ####[facility] (DEFAULT)[address] [place] [address] Basophils/100 WBC (Bld) 1.2 % Normal 0.2-2.0 [facility] Comment on above: Performed By: #### 7 [id number], [id number], [id number] ####[facility] (DEFAULT)[address] [place] [address] Eos Abs# 0.2 x10 Normal 0.0-0.4 [facility] Comment on above: Performed By: #### 7 [id number], [id number], [id number] ####[facility] (DEFAULT)[address] [place] [address]83 Eosinophils/100 WBC (Bld) 1.8 % Normal 0.9-4.0 [facility] Comment on above: Performed By: #### 7 244213, [id number], [id number] ####[facility] (DEFAULT)[address] [place] [address] Lymph Abs# 2.7 x10 Normal 1.3-2.9 [facility] Comment on above: Performed By: #### 7 404337, [id number], [id number] ####[facility] (DEFAULT)[address] [place] [address] 68491 Lymphocytes/100 WBC (Bld) 25 % Normal 14-48 [facility] Comment on above: Performed By: #### 7 862392, [id number], [id number] ####[facility] (DEFAULT)[address] [place] [address] [place] Abs# 0.6 x10 Normal 0.0-0.8 [facility] Comment on above: Performed By: #### 7 [id number], [id number], [id number] ####[facility] (DEFAULT)[address] [place] [address] Neut Abs# 7.2 x10 Normal 1.5-9.2 [facility] Comment on above: Performed By: #### 7 307761, [id number], [id number] ####[facility] (DEFAULT)[address] [place] [address] 52733 Neutrophils/100 WBC (Bld) 66 % Normal 44-88 [facility] Comment on above: Performed By: #### 7 629779, [id number], [id number] ####[facility] (DEFAULT)[address] [place] [address] BMP Standardon 06-18-2021 eGFR Non AA >60 Invalid Interpretation Code [facility] Comment on above: Performed By: #### 7 [id number], [id number], [id number] ####[facility] (DEFAULT)[address] [place] [address] 11843 eGFR AA >60 Invalid Interpretation Code [facility] Comment on above: Result Comment: Book Author yury Kidney disease could be indicated at eGFRs of less than 60 ml/min/1.73m2. Kidney Failure is indicated at less than 15 ml/min/1.73m2 Performed By: #### 7 618839, [id number], [id number] ####[facility] (DEFAULT)[address] [place] [address] 95769 Anion gap [Moles/Vol] 14.0 mmol/L Normal 5.0-19.0 [facility] Comment on above: Performed By: #### 7 866341, [id number], [id number] ####[facility] (DEFAULT)[address] [place] [address] 22388 Calcium [Mass/Vol] 9.5 mg/dL Normal 8.9-10.3 [facility] Comment on above: Performed By: #### 7 266251, [id number], [id number] ####[facility] (DEFAULT)[address] [place] [address] 66154 Chloride [Moles/Vol] 101 mmol/L Normal 101-111 [facility] Comment on above: Performed By: #### 7 843485, [id number], [id number] ####[facility] (DEFAULT)[address] [place] [address] 79595 CO2 [Moles/Vol] 28 mmol/L Normal 21-32 [facility] Comment on above: Performed By: #### 7 224195, [id number], [id number] ####[facility] (DEFAULT)[address] [place] [address] 04831 Creatinine [Mass/Vol] 0.99 mg/dL Normal 0.90-1.30 [facility] Comment on above: Performed By: #### 7 987367, [id number], [id number] ####[facility] (DEFAULT)[address] [place] [address] 14252 Glucose [Mass/Vol] 89.0 mg/dL Normal 74.0-118.0 [facility] Comment on above: Performed By: #### 7 063926, [id number], [id number] ####[facility] (DEFAULT)[address] [place] [address] Osmolality 276 mOsm/L Invalid Interpretation Code [facility] Comment on above: Performed By: #### 7 751068, [id number], [id number] ####[facility] (DEFAULT)[address] [place] [address] 32986 Potassium [Moles/Vol] 3.8 mmol/L Normal 3.6-5.1 [facility] Comment on above: Performed By: #### 7 462084, [id number], [id number] ####[facility] (DEFAULT)[address] [place] [address] Sodium [Moles/Vol] 139.0 mmol/L Normal 136.0-144.0 [facility] Comment on above: Performed By: #### 7 704946, 46804630, [id number] ####[facility] (DEFAULT)[address] [place] [address] Urea nitrogen [Mass/Vol] 9 mg/dL Normal 8-26 [facility] Comment on above: Performed By: #### 7 384965, [id number], [id number] ####[facility] (DEFAULT)[address] [place] [address] Urea nitrogen/Creatinine [Mass ratio] 9.0 mg/mg Normal 4.6-16.2 [facility] Comment on above: Performed By: #### 7 350511, 14791525, [id number] ####[facility] (DEFAULT)[address] [place] [address] 22557 CBC w/ Auto Diffon 1 Erythrocyte distribution width (RBC) [Ratio] 14.8 % Normal 11.5-15.0 [facility] Comment on above: Performed By: #### 7 040618, [id number], [id number] ####[facility] (DEFAULT)[address] [place] [address] 85852 Hematocrit (Bld) [Volume fraction] 47.5 % Normal 34.8-51.9 [facility] Comment on above: Performed By: #### 7 355210, 54101354, [id number] ####[facility] (DEFAULT)[address] [place] [address] 09033 Hemoglobin (Bld) [Mass/Vol] 16.0 g/dL Normal 11.8-17.7 [facility] Comment on above: Performed By: #### 7 651862, 50030627, [id number] ####[facility] (DEFAULT)[address] [place] [address] 61881 Instr WBC 10.8 x10 Invalid Interpretation Code [facility] Comment on above: Performed By: #### 7 596333, [id number], [id number] ####[facility] (DEFAULT)[address] [place] [address] Man Diff? Auto Normal [facility] Comment on above: Performed By: #### 7 233362, 84873443, [id number] ####[facility] (DEFAULT)[address] [place] [address] 63324 MCH (RBC) [Entitic mass] 29 pg Normal 24-34 [facility] Comment on above: Performed By: #### 7 181981, [id number], [id number] ####[facility] (DEFAULT)[address] [place] [address] 36470 MCHC (RBC) [Mass/Vol] 34 g/dL Normal 26-37 [facility] Comment on above: Performed By: #### 7 774180, 75584735, [id number] ####[facility] (DEFAULT)[address] [place] [address] 05795 MCV (RBC) [Entitic vol] 87 fL Normal 81-100 [facility] Comment on above: Performed By: #### 7 659087, [id number], [id number] ####[facility] (DEFAULT)[address] [place] [address] 74245 Platelet 372 x10 Normal 138-427 [facility] Comment on above: Performed By: #### 7 518888, [id number], [id number] ####[facility] (DEFAULT)[address] [place] [address] 88187 Platelet mean volume (Bld) [Entitic vol] 9.5 fL Normal 6.3-10.2 [facility] Comment on above: Performed By: #### 7 453640, [id number], [id number] ####[facility] (DEFAULT)[address] [place] [address] RBC 5.48 x10 High 3.70-5.30 [facility] Comment on above: Performed By: #### 7 379088, 94045406, [id number] ####[facility] (DEFAULT)[address] [place] [address] WBC 10.8 x10 High 3.5-10.5 [facility] Comment on above: Performed By: #### 7 959710, 87838688, [id number] ####[facility] (DEFAULT)[address] [place] [address] ALLIED HEALTHon 11-07-2018 ALLIED HEALTH HNO ID: [id number] Author: Natalie (RtShruti Dumont Service: Radiology Author Type: [employer] Type: Allied Health Filed: 11/07/2018 11:36 AM Note Text: Radiology Service Progress Note PATIENT NAME: Denise Lantigua DATE OF SERVICE: November 07, 2018 TIME: 11:34 AM PATIENT IDENTITY VERIFICATION COMPLETED USING TWO (2) METHODS: Patient confirmed name verbally and ID band matches.. PATIENT GENDER DATA: Male PATIENT RELEVANT IMPLANT DATA REVIEWED: Not Applicable RADIOLOGY DEPARTMENT: General X-ray: Exam(s) Completed: Spine X-Ray(s): Lumbar AP / LAT / FLEX-EXT PERIPHERAL IV DATA: Not applicable SIGNED BY: RT Fabiola November 07, 2018 11:34 AM [facility] CNOVon 11-07-2018 CNOV Office Visit (NSFRVW ) DENISE LANTIGUA ([id number]) 1980 M Date Time Provider Department 11/07/18 10:20 AM LAUREL LOERA)NSFRVW During your visit today, we recorded the following information about you: Temperature Pulse Respiration Blood pressure 98.2 degrees 84/minute 20/minute 135/81 Weight Height 72.7 kg 1.753 m Laurel Loera MD 11/07/2018 11:25 AM Signed SPINE SURGERY FOLLOW UP SERVICE DATE: 11/07/2018 SURGERY DATE: 06/14/18 Denise Lantigua is s/p left L5-S1 revision diskectomy with foraminotomy on 06/14/18. He as last seen on 07/07/18 where her leg pain was resolved and lower back pain and ambulation had improved. He states he returned to work in September and his lower back and left leg pain has returned. He states his leg pain is located in the left buttock and foot, no radicular pain. He denies right leg symptoms PHYSICAL EXAM: There were no vitals taken for this visit. GENERAL APPEARANCE: Well nourished, well developed, and no apparent distress. NEURO PSYCH: Patient oriented to person, place, and time. Mood pleasant. Benign affect. MUSCULOSKELETAL VISUAL INSPECTION CERVICAL: WNL THORACIC: WNL LUMBAR: WNL MOTOR: 5/5 in all muscle groups. SENSORY: Normal sensory exam GAIT: Antalgic. Incision is healed DATA REVIEW [facility] records reviewed Imaging and outside records reviewed Images reviewed with the patient ASSESSMENT/PLAN Denise Lantigua is a pleasant 38-year-old gentleman is here in spine surgery clinic for follow-up visit. He underwent left L5-S1 revision diskectomy with foraminotomy on 06/14/18. Prior to surgery he complained of lower back and left leg pain. Last visit his left leg pain has resolved and his ambulation has improved. Since last visit, he returned to work in September and his lower back and left leg pain has returned. He states his leg pain is located in the left buttock and over foot, no radicular pain. He denies right leg symptoms Currently on 300 mg Neurontin 3 times a day which helps some of his pain. Examination showed well-healed lumbar incision, no signs of infection. No motor weakness. ? Discussed clinical finding. Suggested to increase his activities as tolerating, continue back centrally exercises. Suggested to increase gabapentin up to 600 mg 3 times a day. He is currently following with pain management in [place]. X-ray lumbar spine flexion and extension ordered. He may benefit from chronic pain rehabilitation program. ? Follow up in spine surgery clinic at 4 months for reassessment The majority of the visit was spent counseling and/or coordinating care for the patient. The patient was counseled regarding back and foot pain. Total face to face time was 25 minutes. SIGNATURE: Laurel Loera MD PATIENT NAME: Denise Lantigua DATE: November 07, 2018 TIME: 10:30 AM PAGER: Laurel Loera MD 11/07/2018 10:51 AM Signed Denise Lantigua is a pleasant 38-year-old gentleman is here in spine surgery clinic for follow-up visit. He underwent left L5-S1 revision diskectomy with foraminotomy on 06/14/18. Prior to surgery he complained of lower back and left leg pain. Last visit his left leg pain has resolved and his ambulation has improved. Since last visit, he returned to work in September and his lower back and left leg pain has returned. He states his leg pain is located in the left buttock and over foot, no radicular pain. He denies right leg symptoms Currently on 300 mg Neurontin 3 times a day which helps some of his pain. Examination showed well-healed lumbar incision, no signs of infection. No motor weakness. ? Discussed clinical finding. Suggested to increase his activities as tolerating, continue back centrally exercises. Suggested to increase gabapentin up to 600 mg 3 times a day. He is currently following with pain management in [place]. X-ray lumbar spine flexion and extension ordered. He may benefit from chronic pain rehabilitation program. ? Follow up in spine surgery clinic at 4 months for reassessment Referring Provider: LAUREL LOERA) [[id number]] Allergies As of Date: 11/07/2018 (No Known Allergies) Date Reviewed: 11/07/2018 Reviewed by: Ana Ellis Ma - Fully Assessed Reason for Visit: Established Patient [175] Primary Visit Diagnosis:Lumbar disc herniation [M51.26] Order(s):XR LUMBAR MOTION 4V AP/LAT/ FLEX/EXT [[id number]] Order #: [id number] FUTURE Prescriptions as of 11/07/2018 Sig: OXYCODONE-ACETAMINOPHEN 5-325* Take by mouth. GABAPENTIN 300 MG CAPSULE PROAIR HFA 90 MCG/ACTUATION A* TAKE 2 PUFFS BY MOUTH EVERY 4* AMITRIPTYLINE 10 MG TABLET Take 10 mg by mouth at bedtim* AMITRIPTYLINE 25 MG TABLET Take 25 mg by mouth at bedtim* AMLODIPINE 5 MG TABLET Take 5 mg by mouth once daily. Problem List As Of Date 11/07/2018 Noted Resolved Radiculopathy, lumbar region [M54.16] INVALID FOR* More... Lumbar disc herniation [M51.26] INVALID FOR* More... Degeneration of lumbar intervertebral disc [M51*INVALID FOR* More... Other instructions from your clinician: Denise Lantigua is a pleasant 38-year-old gentleman is here in spine surgery clinic for follow-up visit. He underwent left L5-S1 revision diskectomy with foraminotomy on 06/14/18. Prior to surgery he complained of lower back and left leg pain. Last visit his left leg pain has resolved and his ambulation has improved. Since last visit, he returned to work in September and his lower back and left leg pain has returned. He states his leg pain is located in the left buttock and over foot, no radicular pain. He denies right leg symptoms Currently on 300 mg Neurontin 3 times a day which helps some of his pain. Examination showed well-healed lumbar incision, no signs of infection. No motor weakness. ? Discussed clinical finding. Suggested to increase his activities as tolerating, continue back centrally exercises. Suggested to increase gabapentin up to 600 mg 3 times a day. He is currently following with pain management in [place]. X-ray lumbar spine flexion and extension ordered. He may benefit from chronic pain rehabilitation program. ? Follow up in spine surgery clinic at 4 months for reassessment Encounter Status:Closed by LAUREL LOERA MD on 11/07/[address] [facility] PROGRESSon 11-07-2018 Protein mass conc HNO ID: [id number] Author: Laurel Littlejohn) Luz Maria Service: (none) Author Type: Physician Type: Progress Notes Filed: 11/07/2018 11:25 AM Note Text: SPINE SURGERY FOLLOW UP SERVICE DATE: 11/07/2018 SURGERY DATE: 06/14/18 Denise Lantigua is s/p left L5-S1 revision diskectomy with foraminotomy on 06/14/18. He as last seen on 07/07/18 where her leg pain was resolved and lower back pain and ambulation had improved. He states he returned to work in September and his lower back and left leg pain has returned. He states his leg pain is located in the left buttock and foot, no radicular pain. He denies right leg symptoms PHYSICAL EXAM: There were no vitals taken for this visit. GENERAL APPEARANCE: Well nourished, well developed, and no apparent distress. NEURO PSYCH: Patient oriented to person, place, and time. Mood pleasant. Benign affect. MUSCULOSKELETAL VISUAL INSPECTION CERVICAL: WNL THORACIC: WNL LUMBAR: WNL MOTOR: 5/5 in all muscle groups. SENSORY: Normal sensory exam GAIT: Antalgic. Incision is healed DATA REVIEW [facility] records reviewed Imaging and outside records reviewed Images reviewed with the patient ASSESSMENT/PLAN Denise Lantigua is a pleasant 38-year-old gentleman is here in spine surgery clinic for follow-up visit. He underwent left L5-S1 revision diskectomy with foraminotomy on 06/14/18. Prior to surgery he complained of lower back and left leg pain. Last visit his left leg pain has resolved and his ambulation has improved. Since last visit, he returned to work in September and his lower back and left leg pain has returned. He states his leg pain is located in the left buttock and over foot, no radicular pain. He denies right leg symptoms Currently on 300 mg Neurontin 3 times a day which helps some of his pain. Examination showed well-healed lumbar incision, no signs of infection. No motor weakness. ? Discussed clinical finding. Suggested to increase his activities as tolerating, continue back centrally exercises. Suggested to increase gabapentin up to 600 mg 3 times a day. He is currently following with pain management in [place]. X-ray lumbar spine flexion and extension ordered. He may benefit from chronic pain rehabilitation program. ? Follow up in spine surgery clinic at 4 months for reassessment The majority of the visit was spent counseling and/or coordinating care for the patient. The patient was counseled regarding back and foot pain. Total face to face time was 25 minutes. SIGNATURE: Laurel Loera MD PATIENT NAME: Denise Lantigua DATE: November 07, 2018 TIME: 10:30 AM PAGER: Normal [facility] XR LUMBAR 4V AP/LAT/ FLEX/EX Ton 11-07-2018 XR LUMBAR 4V AP/LAT/ FLEX/EXT * * *Final Report* * * DATE OF EXAM: Nov 07 2018 11:39AM FVX [id number] - XR LUMBAR 4V AP/LAT/ FLEX/EXT / PROCEDURE REASON: Lumbar disc herniation * * * * Physician Interpretation * * * * XR LUMBAR 4V AP/LAT/ FLEX/EXT PROVIDED HISTORY: Lumbar disc herniation COMPARISON: 06/14/2018 TECHNIQUE: AP, lateral, flexion, and extension views of the lumbar spine. Counting reference: Lumbosacral junction. For the purposes of this report, L4-5 is considered the level of the iliac crest and there are 5 lumbar-type vertebrae. Anatomic Variants: None. RESULT: Lumbar alignment appears intact. Moderate narrowing seen at L5-S1 disc space. No acute fracture or dislocation is seen in the lumbar spine. No subluxation is seen on flexion and extension. IMPRESSION: Degenerative disc changes at L5-S1 with no acute fractures seen Electronics Teacher: PSCB Transcribe Date/Time: Nov 07 2018 2:02P Dictated by : RAFIQ CANO MD This examination was interpreted and the report reviewed and electronically signed by: RAFIQ CANO MD on Nov 07 2018 2:03PM EST [id number] [facility] 07-18-2018 [facility] Telephone (NIQ) GRZEGORZDENISE THOMPSON ([id number]) 1980 M Date Time Provider Department 07/18/18 LAUREL LOERA)NIQ During your visit today, we recorded the following information about you: Bowen Mcdermott Team Ldr 07/18/2018 12:50 PM Signed Patient states that he wanted to get an additional few weeks off work and wanted to discuss how to do that. He said that short term disability papers were sent to his insurance and he just needs them to be addended and resent. Sarah Mueller RN 07/18/2018 4:01 PM Signed Spoke with pt He is asking for additional 2 weeks of leave He is still using a cane AND seeing pain management tomorrow He states that he does very heavy lifting at work AND does not feel ready to return 07/26 He thought he was going to be given 12 weeks off initially Maria Luisa Sher [facility] 07/18/2018 4:17 PM Signed Patient calling back with fax number for paper work: Dustin Hernadez, Patient wants to know how many more weeks are being approved. [phone] ALBERTO Moreira- 07/20/2018 11:20 AM Signed New letter written ALBERTO Moreira- Sarah Mueller RN 07/20/2018 11:48 AM Signed Letter faxed as requested LVM notifying pt Allergies As of Date: 07/18/2018 (No Known Allergies) Date Reviewed: 07/07/2018 Reviewed by: Rhona Coyne Ma - Fully Assessed Reason for Visit: [place] Paperwork [3466] Prescriptions as of 07/18/2018 Sig: OXYCODONE-ACETAMINOPHEN 5-325* Take by mouth. AMLODIPINE 5 MG TABLET Take 5 mg by mouth once daily. GABAPENTIN 300 MG CAPSULE PROAIR HFA 90 MCG/ACTUATION A* TAKE 2 PUFFS BY MOUTH EVERY 4* AMITRIPTYLINE 10 MG TABLET Take 10 mg by mouth at bedtim* AMITRIPTYLINE 25 MG TABLET Take 25 mg by mouth at bedtim* Problem List As Of Date 07/18/2018 Noted Resolved Radiculopathy, lumbar region [M54.16] INVALID FOR* More... Lumbar disc herniation [M51.26] INVALID FOR* More... Degeneration of lumbar intervertebral disc [M51*INVALID FOR* More... Letter Text Laurel Loera M.D. [facility] / [address] [place] [address] Office: Appt: Letter Text Janis Franks PA-C [facility] Neurosurgery 07/20/2018 To Whom it May Concern: This is to certify that Denise Lantigua was seen at our office for medical care. Mr Lantigua may return to work on 08/09/18. If you have any questions please feel free to call. Thank you, PRASHANTH Moreira Encounter Status:Closed by JANIS FRANKS PA-C on 07/20/18 [facility] CNOVon 07-07-2018 CNOV Office Visit (NSFRVW ) GRZEGORZDENISE THOMPSON ([id number]) 1980 M Date Time Provider Department 07/07/18 9:00 AM LAUREL LOERA)NSFRVW During your visit today, we recorded the following information about you: Temperature Pulse Blood pressure Weight 98.9 degrees 100/minute 135/91 68.5 kg Height 1.753 m Laurel Loera MD 07/07/2018 1:03 PM Signed SPINE SURGERY FOLLOW UP SERVICE DATE: 07/07/2018 SURGERY DATE: 06/14/18 Denise Lantigua is s/p left L5-S1 revision diskectomy with foraminotomy on 06/14/18. Prior to surgery he complained of lower back and left leg pain. Since surgery his left leg pain has resolved and his ambulation has improved. He does admit continued lower back pain and is using a cane for safety. He denies new onset symptoms. PHYSICAL EXAM: BP 135/91 (BP Site: Left Arm, BP Position: Sitting, BP Cuff Size: Regular Adult) Pulse 100 Temp 37.2 ?C (98.9 ?F) Ht 175.3 cm (5' 9 ) Wt 68.5 kg (151 lb) SpO2 93% BMI 22.30 kg/m? GENERAL APPEARANCE: Well nourished, well developed, and no apparent distress. NEURO PSYCH: Patient oriented to person, place, and time. Mood pleasant. Benign affect. MUSCULOSKELETAL VISUAL INSPECTION CERVICAL: WNL THORACIC: WNL LUMBAR: WNL MOTOR: 5/5 in all muscle groups. SENSORY: Normal sensory exam GAIT: Antalgic. Incision is healthy DATA REVIEW [facility] records reviewed Imaging and outside records reviewed Images reviewed with the patient ASSESSMENT/PLAN Denise Lantigua is a pleasant 38-year-old gentleman is here in spine surgery clinic for follow-up visit. He underwent left L5-S1 revision diskectomy with foraminotomy on 06/14/18. Prior to surgery he complained of lower back and left leg pain. Since surgery his left leg pain has resolved and his ambulation has improved. He does admit continued lower back pain and is using a cane for safety. He denies new onset symptoms. Examination showed well-healed lumbar incision, no signs of infection. No motor weakness. Discussed clinical finding. Suggested physical therapy, which is ordered. Suggested to increase his activities as tolerating, avoid lifting weight more than 20 pounds for another 4 weeks. Suggested follow-up with pain management for pain medications. Also discussed about chronic pain and rehabilitation program. Follow up in spine surgery clinic at 4 months for reassessment. The majority of the visit was spent counseling and/or coordinating care for the patient. The patient was counseled regarding back pain. Total face to face time was 25 minutes. SIGNATURE: Laurel Loera MD PATIENT NAME: Denise Lantigua DATE: July 07, 2018 TIME: 9:32 AM PAGER: Laurel Loera MD 07/07/2018 10:29 AM Signed Denise Lantigua is a pleasant 38-year-old gentleman is here in spine surgery clinic for follow-up visit. He underwent left L5-S1 revision diskectomy with foraminotomy on 06/14/18. Prior to surgery he complained of lower back and left leg pain. Since surgery his left leg pain has resolved and his ambulation has improved. He does admit continued lower back pain and is using a cane for safety. He denies new onset symptoms. Examination showed well-healed lumbar incision, no signs of infection. No motor weakness. Discussed clinical finding. Suggested physical therapy, which is ordered. Suggested to increase his activities as tolerating, avoid lifting weight more than 20 pounds for another 4 weeks. Suggested follow-up with pain management for pain medications. Also discussed about chronic pain and rehabilitation program. Follow up in spine surgery clinic at 4 months for reassessment. Referring Provider: LAUREL LOERA) [[id number]] Allergies As of Date: 07/07/2018 (No Known Allergies) Date Reviewed: 07/07/2018 Reviewed by: Rhona Coyne Ma - Fully Assessed Reason for Visit: Follow Up [171] Cmt: Post Op Primary Visit Diagnosis:Radiculopathy , lumbar region [M54.16] Order(s):CONSULT TO PHYSICAL THERAPY [9067] Order #: [id number]: 1 Prescriptions as of 07/07/2018 Sig: OXYCODONE-ACETAMINOPHEN 5-325* Take by mouth. AMLODIPINE 5 MG TABLET Take 5 mg by mouth once daily. GABAPENTIN 300 MG CAPSULE PROAIR HFA 90 MCG/ACTUATION A* TAKE 2 PUFFS BY MOUTH EVERY 4* AMITRIPTYLINE 10 MG TABLET Take 10 mg by mouth at bedtim* AMITRIPTYLINE 25 MG TABLET Take 25 mg by mouth at bedtim* Problem List As Of Date 07/07/2018 Noted Resolved Radiculopathy, lumbar region [M54.16] INVALID FOR* More... Lumbar disc herniation [M51.26] INVALID FOR* More... Degeneration of lumbar intervertebral disc [M51*INVALID FOR* More... Other instructions from your clinician: Denise Lantigua is a pleasant 38-year-old gentleman is here in spine surgery clinic for follow-up visit. He underwent left L5-S1 revision diskectomy with foraminotomy on 06/14/18. Prior to surgery he complained of lower back and left leg pain. Since surgery his left leg pain has resolved and his ambulation has improved. He does admit continued lower back pain and is using a cane for safety. He denies new onset symptoms. Examination showed well-healed lumbar incision, no signs of infection. No motor weakness. Discussed clinical finding. Suggested physical therapy, which is ordered. Suggested to increase his activities as tolerating, avoid lifting weight more than 20 pounds for another 4 weeks. Suggested follow-up with pain management for pain medications. Also discussed about chronic pain and rehabilitation program. Follow up in spine surgery clinic at 4 months for reassessment. Encounter Status:Closed by LAUREL LOERA MD on 07/07/[address] [facility] PROGRESSon 07-07-2018 Protein mass conc HNO ID: [id number] Author: Laurel Littlejohn) Luz Maria Service: (none) Author Type: Physician Type: Progress Notes Filed: 07/07/2018 1:03 PM Note Text: SPINE SURGERY FOLLOW UP SERVICE DATE: 07/07/2018 SURGERY DATE: 06/14/18 Denise Lantigua is s/p left L5-S1 revision diskectomy with foraminotomy on 06/14/18. Prior to surgery he complained of lower back and left leg pain. Since surgery his left leg pain has resolved and his ambulation has improved. He does admit continued lower back pain and is using a cane for safety. He denies new onset symptoms. PHYSICAL EXAM: BP 135/91 (BP Site: Left Arm, BP Position: Sitting, BP Cuff Size: Regular Adult) Pulse 100 Temp 37.2 ?C (98.9 ?F) Ht 175.3 cm (5' 9 ) Wt 68.5 kg (151 lb) SpO2 93% BMI 22.30 kg/m? GENERAL APPEARANCE: Well nourished, well developed, and no apparent distress. NEURO PSYCH: Patient oriented to person, place, and time. Mood pleasant. Benign affect. MUSCULOSKELETAL VISUAL INSPECTION CERVICAL: WNL THORACIC: WNL LUMBAR: WNL MOTOR: 5/5 in all muscle groups. SENSORY: Normal sensory exam GAIT: Antalgic. Incision is healthy DATA REVIEW [facility] records reviewed Imaging and outside records reviewed Images reviewed with the patient ASSESSMENT/PLAN Denise Lantigua is a pleasant 38-year-old gentleman is here in spine surgery clinic for follow-up visit. He underwent left L5-S1 revision diskectomy with foraminotomy on 06/14/18. Prior to surgery he complained of lower back and left leg pain. Since surgery his left leg pain has resolved and his ambulation has improved. He does admit continued lower back pain and is using a cane for safety. He denies new onset symptoms. Examination showed well-healed lumbar incision, no signs of infection. No motor weakness. Discussed clinical finding. Suggested physical therapy, which is ordered. Suggested to increase his activities as tolerating, avoid lifting weight more than 20 pounds for another 4 weeks. Suggested follow-up with pain management for pain medications. Also discussed about chronic pain and rehabilitation program. Follow up in spine surgery clinic at 4 months for reassessment. The majority of the visit was spent counseling and/or coordinating care for the patient. The patient was counseled regarding back pain. Total face to face time was 25 minutes. SIGNATURE: Laurel Loera MD PATIENT NAME: Denise Lantigua DATE: July 07, 2018 TIME: 9:32 AM PAGER: Normal [facility] ANES Melvi 06-14-2018 ANES POST HNO ID: [id number] Author: Moise jN Service: Anesthesiology Author Type: Anesthesiologist Type: Anesthesia PostOp Filed: 06/14/2018 3:19 PM Note Text: POST ANESTHESIA EVALUATION NOTE SERVICE DATE: 06/14/2018 SERVICE TIME: 3:19 PM : 1980 Vitals: 06/14/18 1146 06/14/18 1500 Temp: 37.1 ?C (98.8 ?F) 36.2 ?C (97.2 ?F) 06/14/18 1146 06/14/18 1500 06/14/18 1515 BP: 136/89 138/88 136/91 06/14/18 1146 06/14/18 1500 06/14/18 1515 Pulse: 73 76 68 06/14/18 1146 06/14/18 1500 06/14/18 1515 Resp: 06/14/18 1146 06/14/18 1500 06/14/18 1515 SpO2: 99% 100% 100% Validated Vital Signs: Yes POST ANES STATUS: No apparent anesthetic complications. The patient is appropriately hydrated with stable respiratory and cardiovascular status. Patient has safe and adequate airway control. The patient has appropriate pain relief and no significant post operative nausea or vomiting. The patient has achieved baseline mental status. Intra-Operative Events: No Significant Anesthesia Events Further assessment by Anesthesia Service: None Other Remarks: SIGNATURE: Moise Nj MD PATIENT NAME: Denise Lantigua DATE: June 14, 2018 TIME: 3:19 PM PAGER/CONTACT #: [phone] [facility] ANES PREOPon 06-14-2018 ANES PREOP HNO ID: [id number] Author: Moise Littlejohn) Clem Service: Anesthesiology Author Type: Anesthesiologist Type: Anesthesia PreOp Filed: 06/14/2018 12:14 PM Note Text: REGIONAL ANESTHESIOLOGY DAY OF SURGERY NOTE PATIENT NAME: Denise Lantigua : 1980 Procedure(s) (LRB): RE-EXPLORATION LAMINOTOMY DISCECTOMY LUMBAR LEVEL 1 (Left) Surgeon(s): Laurel Littlejohn) Luz Maria Estimated body mass index is 22.3 kg/m? as calculated from the following: Height as of 06/08/18: 175.3 cm (5' 9 ). Weight as of 06/08/18: 68.5 kg (151 lb). ASA Class: 2 Adequate NPO status: Yes Allergies: ALLERGIES No Known Allergies Airway Assessment: MP 2; Neck ROM: Full ROM without neurologic symptoms; Airway Evaluation: No significant abnormalities Dentition: Teeth intact Symptoms of Sleep Apnea: Denies Most recent lab results: Hemoglobin 15.6 06/08/2018 Hematocrit 47.5 06/08/2018 Potassium 4.7 06/08/2018 Platelet Count 320 06/08/2018 PT Sec 11.1 06/08/2018 APTT 26.8 06/08/2018 PT INR 1.1 06/08/2018 Creatinine 1.07 06/08/2018 EKG: normal EKG, normal sinus rhythm Vitals: 06/14/18 1146 BP: 136/89 Pulse: 73 Resp: 18 Temp: 37.1 ?C (98.8 ?F) TempSrc: Temporal Artery SpO2: 99% Previous Anesthesia: No history of adverse event Family history of anesthetic problems: None Additional Physical Exam: Lungs: Lungs clear to auscultation. Good diaphragmatic excursion. Cardiac: Normal S1 and S2; no rubs, no murmurs and no gallops Additional pertinent findings: N/A Other Medical Problems/ Important Considerations: Denies chest pain and SOB with exertion. HTN COPD Heavy smoker Chronic Beta Alfonzo medication administered within 24 hours: N/A Anesthetic risks, benefits, alternatives, personnel and consent discussed: Yes Patient agrees to proceed: Yes Blood Products: Will accept Blood/Blood Products Anesthetic Plan: General ETT; Standard ASA Monitors Pain Management Plan: ROOT Protocol Parenteral or Oral EPIC Chart Review ACTIVE PROBLEM LIST Radiculopathy, Lumbar Region Lumbar Disc Herniation Degeneration of Lumbar Intervertebral Disc PAST MEDICAL HISTORY Diagnosis Date - Asthma - HTN (hypertension) PAST SURGICAL HISTORY Procedure Laterality Date - PAST SURGICAL HISTORY OF 2017 Left L5-S1 discectomy with foraminotomy FAMILY HISTORY Problem Relation Age of Onset - Diabetes Mother - Heart Attack Mother 58 Social History: Social History Substance Use Topics - Smoking status: Current Every Day Smoker Packs/day: 0.50 Years: 25.00 Types: Cigarettes - Smokeless tobacco: Never Used - Alcohol use No No current facility-administered medications on file prior to encounter. Current Outpatient Prescriptions on File Prior to Encounter: amLODIPine (NORVASC) 5 mg tablet Take 5 mg by mouth once daily. gabapentin (NEURONTIN) 300 mg capsule traMADol (ULTRAM) 50 mg tablet amitriptyline (ELAVIL) 10 mg tablet Take 10 mg by mouth at bedtime as needed. PROAIR HFA 90 mcg/actuation inhaler TAKE 2 PUFFS BY MOUTH EVERY 4 HOURS NEEDED amitriptyline (ELAVIL) 25 mg tablet Take 25 mg by mouth at bedtime as needed. meloxicam (MOBIC) 15 mg tablet Take 1 tablet by mouth once daily. WITH FOOD Inpatient medications reviewed in [facility]. I have interviewed and examined the patient. I have reviewed the medical record and/or the pre-anesthesia evaluation, pertinent labs, and test results. Significant changes in the patient's condition since the History and Physical, not otherwise documented in primary service progress notes: No This contains updated information obtained within 48 hours of Surgery/Procedure. SIGNATURE: Moise Nj MD PATIENT NAME: Denise Lantigua DATE: June 14, 2018 TIME: 12:12 PM PAGER/CONTACT #: [phone] Normal [facility] Confirm Blood Typeon 018 ABO/RH(D) Positive [facility] Comment on above: Performed By: #### C ONABO #### [facility] [address] [place] [address] HISTORY PHYSICALon 8 HISTORY PHYSICAL HNO ID: [id number] Author: Laurel Littlejohn) Luz Maria Service: Neurosurgery Author Type: Physician Type: HANDP Filed: 06/14/2018 12:37 PM Note Text: UPDATED HISTORY AND PHYSICAL EXAMINATION SERVICE DATE: 06/14/2018 SERVICE TIME: 12. 20 PM PHYSICAL EXAM MUST BE COMPLETED ON ADMISSION The History and Physical (completed in the past 30 days) has been reviewed and the patient has been examined. The contents accurately reflect the patient's condition with the following additions or revisions since the HANDP was completed. Examination indicates no changes. This HANDP can be found in the Electronic Medical Record dated 05/17/2018. I again discussed about the surgical procedure, its advantages and risks All his questions were answered Consent for surgery obtained Operative site marked Lab results reviewed ? Proceeding with Left side revision L4-5 diskectomy, root foraminotomy SIGNATURE: Laurel Loera MD PATIENT NAME: Denise Lantigua DATE: June 14, 2018 TIME: 12:35 PM PAGER:[phone] [facility] NURSING PROGon 06-14-2018 Protein mass conc HNO ID: [id number] Author: Andrew ZapienRn) NUBIA Hernandez Service: (none) Author Type: Registered Nurse Type: Nursing Progress Note Filed: 06/14/2018 7:08 PM Note Text: Nursing Progress Note Patient Name: Denise Lantigua Patient Location: [place] [address] [address] Transfer Note: Late entry from 1700 Patient transferred into room/unit PK335 in stable condition. Actions taken: Patient oriented to room and unit routines. Call light placed within reach and patient instructed on use. This note was completed by: Andrew Hernandez RN [facility] Protein mass conc HNO ID: [id number] Author: Beatrice Enamorado) NUBIA Valle Service: Nursing Author Type: Registered Nurse Type: Nursing Progress Note Filed: 06/14/2018 1:57 PM Note Text: Patient family updated on status of procedure per NUBIA Yeung at 1324. [facility] OPERATIVE NOon 06-14-2018 OPERATIVE NO HNO ID: [id number] Author: Laurel Littlejohn) Luz Maria Service: Neurosurgery Author Type: Physician Type: Operative Report Filed: 06/14/2018 3:07 PM Note Text: OPERATIVE/PROCEDURE REPORT LOG ID: [id number] SURGERY/PROCEDURE DATE: 06/14/2018 INCISION/PROCEDURE START TIME: 1:16 PM INCISION CLOSE/PROCEDURE END TIME: 02.40 PM SURGEON(S)/PROCEDURALIS T(S) AND SPA ASSOCIATE(S): Surgeon(s) and Role: * Laurel Littlejohn) Luz Maria - Primary Physician Bale Breaker Operator: Janis Franks ANESTHESIA: General PRE-OP/PRE-PROCEDURE DIAGNOSIS: Left side L5-S1 recurrent disk herniation with radiculopathy ? POST-OP/POST-PROCEDURE DIAGNOSIS: Left side L5-S1 recurrent disk herniation with radiculopathy SURGERY/PROCEDURE(S): Revision left side L5-S1 diskectomy with root foraminotomies done Operative microscope used for diskectomy and root foraminotomies ?? FINDINGS: Evidence of left S1 laminotomy Scar tissue at left L5, S1 root area Disk herniation with small migrated disk behind S1 SURGERY/PROCEDURE DETAILS: After identifying the correct patient, he was taken to the operating room. While he was on the transport gurney, he underwent smooth and adequate general anesthesia. All pressure points were padded adequately. He was placed prone over the katharine table. Back was prepped and draped in usual sterile manner. Previous scar was marked. Pre operative time out was done. 1% lidocaine with 1:200,000 ephinephrine was used for local anesthesia. Incision was made and carried down to the subcutaneous tissue level. Facia opened on the midline between L5, S1?spinous process. L5 and S1?spinous process, L5, S1?lamina on left side was exposed by elevating the muscles. Self retaining retractor was placed. Previous left L5, S1 laminotomy evidence was seen. Laminotomy defect was well defined. Intra operative x ray was done to confirm the L5-S1?disk space level. Level was marked with permanent marker. reviewed the images remotely and confirmed the level. ? ? L5?laminotomy was widened?on the left side with a drill. Residual ligamentum flavum was removed using Kerrison rongeur. Microscope was brought into the field at this time and further procedure was done with microscope. Dura was identified. Scar tissue from previous surgery was dissected and dura freed from the scar tissue. Left?side L5, S1 ?root foraminotomy was done. Dural tube was tented due to large central, left para central ?disk herniation. Dura was gently retracted towards midline and disk space was identified. Box annulotomy was done with 11 blade. Disk was adherent to the dura. Disk was mobilized with nerve hook and slowly removed. Large free disk fragment from leftt paracentral and cental area was removed. Small migrated disk behind S1 vertebral body was removed. Multiple small free disk fragment removed with pituitary rongeur. After completing the diskectomy, root and dura was free of compression. No CSF leak was noticed. Microscope was brought out from the field. ? Wound was irrigated with copious mount of irrigation. Hemostasis was achieved with bipolar cautery. Wound was closed in layers, 0 vicryl for fascia, 3- vicryl for subcutaneous tissue and 4-0 chromic for skin in a subcuticular fashion. Tincture benzoin and steri strip dressing was done. Patient was turned over the bed, awakened, extubated in the operating room. He was escorted to the recovery room in a stable condition ESTIMATED BLOOD LOSS: 10 mls SPECIMENS: None IMPLANTABLE DEVICES: None DRAINS: None COMPLICATIONS: None PARTICIPATION IN SURGERY/PROCEDURE: I performed the procedure with assistance. No qualified resident/fellow was available. SIGNATURE: Laurel Loera MD PATIENT NAME: Denise Lantigua DATE: June 14, 2018 TIME: 2:58 PM PAGER/CONTACT #: [phone] [facility] PROGRESSon 06-14-2018 Protein mass conc HNO ID: [id number] Author: Laurel Loera Service: Neurosurgery Author Type: Physician Type: Progress Notes Filed: 06/14/2018 7:24 PM Note Text: Post op note ? Post op left L5-S1 revision diskectomy with foraminotomy Operative pain is better with medications ? Moving limbs Dressing clean and dry ? Plan: Continue pain medications Regular diet PT /OT SCD Incentive spirometry ? Laurel Loera MD Staff, neurosurgery [facility] PT EDon 06-14-2018 PT ED HNO ID: [id number] Author: Olive (Rn) NUBIA Stoner Service: Nursing Author Type: Registered Nurse Type: Patient Education Filed: 06/14/2018 11:48 AM Note Text: PATIENT EDUCATION TOPIC: PROCEDURE / SURGERY: Pre-op Teaching: Protocols PATIENT NAME: Denise Lantigua PATIENT LOCATION: [facility] OR POOL/[facility] OR POOL READINESS TO LEARN COGNITIVE ABILITY: Alert and oriented MOTIVATION TO LEARN: Interested FAMILY SUPPORT: Unable to assess - Family not present INSTRUCTION PROVIDED TO: Patient PATIENT LEARNS BEST BY: Individual Instruction FACTORS AFFECTING LEARNING: None PHYSICAL LIMITATIONS AFFECTING LEARNING: None LEARNING RESPONSE DIAGNOSIS: ADULT: surgery PATIENT/FAMILY RESPONSE: Verbalizes understanding of: PRE-OPERATIVE INSTRUCTIONS-Correct action to take to follow pre-operative instructions METHOD OF INSTRUCTION: Individual instruction FOLLOW-UP PLAN: Complete - No need for follow-up INSTRUCTIONAL AIDS USED: NA SUPPLEMENTAL MATERIAL PROVIDED TO PATIENT: None REFERRAL (RECOMMENDATION): None Electronically Signed By: Olive Stoner RN [facility] XR LUMBAR 1Von 06-14-2018 XR LUMBAR 1V * * *Final Report* * * DATE OF EXAM: Jun 14 2018 1:31PM FVO [id number] - XR LUMBAR 1V / PROCEDURE REASON: BACK PAIN/INTRA OP L5-S1 DISCECTOMY #1 * * * * Physician Interpretation * * * * XR LUMBAR 1V PROVIDED HISTORY: BACK PAIN/INTRA OP L5-S1 DISCECTOMY #1 COMPARISON: 01/17/2018 TECHNIQUE: Lateral view of the lumbar spine. Counting reference: Lumbosacral junction. For the purposes of this report, L4-5 is considered the level of the iliac crest and there are 5 lumbar-type vertebrae. Anatomic Variants: None. RESULT: There is a needle seen posterior to lumbar spine localizing to the L5-S1 level. Moderate narrowing at L5-S1 is noted. No acute fractures seen IMPRESSION: Localization to L5-S1 of the lumbar spine. Electronics Teacher: CHAKA Transcribe Date/Time: Jun 14 2018 1:44P Dictated by : RAFIQ CANO MD This examination was interpreted and the report reviewed and electronically signed by: RAFIQ CANO MD on Jun 14 2018 1:44PM EST [id number] [facility] NURSING PROGon 06-09-2018 Protein mass conc HNO ID: [id number] Author: Odilia (Rn) NUBIA Zelaya Service: General Surgery Author Type: Registered Nurse Type: Nursing Progress Note Filed: 06/13/2018 6:44 AM Note Text: PACC Nurse Progress Note History AND Physical: PACC Visit Date: 06-08-18 Original HANDP Date: N/A ED visit Date: N/A Outside HANDP Scanned Date: N/A Labs Within Last 6 Months: CBC: Date 06-08-18 BMP/CMP: Date 06-08-18 PT: Date 06-08-18 PTT: Date 06-08-18 UA: Date 06-08-18 STAAMP: Date 06-08-18 TYPE AND SCREEN: Date 06-08-18 Within acceptable limits, results in [facility]. Imaging Within Last 12 Months: MRI 02-12-18 X-ray Lumbar 02-12-18 Results in [facility]. Cardiac Testing: EKG in last 12 Months: Yes: Date: 06-08-18, Comment: Confirmed in [facility]. Last Menstrual Period: LMP Date: N/A Postmenopausal >1yr: N/A, S/P Hysterectomy: N/A BMI Percentile (PEDS): N/A Risk Assessment: N/A Anesthesia Review: N/A Narrative: N/A Pre-op Considerations: Asthma: Rare inhaler use Chart Check: COMPLETED Odilia Zelaya RN June 09, 2018 11:13 AM [facility] APTTon 06-08-2018 aPTT Coag time (Bld) 26.8 s Normal 23.0-32.4 [facility] Comment on above: Result Comment: Unfr actionated Heparin Therapeutic Ranges: Standard Heparin Nomogram: 53 to 78 seconds (anti-Xa level of 0.3 to 0.7 U/ml) Low Dose/ACS Nomogram: 49 to 67 seconds (anti-Xa level of 0.2 to 0.5 U/ml) Stroke Treatment Nomogram: 49 to 67 seconds (anti-Xa level of 0.2 to 0.5 U/ml) Note: The APTT therapeutic range has been determined for the current lot of laboratory APTT reagent in use throughout the [facility]. Performed By: #### C BC, PT, PTT, BMP ####[place] [address] [address] [place] [phone] Basic Metabolic Panlon 06-08 Anion gap molar conc 14 mmol/L Normal 9-18 [facility] Comment on above: Performed By: #### C BC, PT, PTT, BMP ####[place] [address] [place] [phone] Calcium mass conc 9.7 mg/dL Normal 8.5-10.2 [facility] Comment on above: Performed By: #### C BC, PT, PTT, BMP ####[place] [address] [place] [phone] Chloride molar conc 101 mmol/L Normal 97-105 [facility] Comment on above: Performed By: #### C BC, PT, PTT, BMP ####[address] [place] [phone] CO2 molar conc 27 mmol/L Normal 22-30 [facility] Comment on above: Performed By: #### C BC, PT, PTT, BMP ####[place] [address] [place] [phone] Creatinine mass conc 1.07 mg/dL Normal 0.73-1.22 [facility] Comment on above: Performed By: #### C BC, PT, PTT, BMP ####[place] [address] [place] [phone] eGFR- Amer. >60 Normal [facility] Comment on above: Performed By: #### C BC, PT, PTT, BMP ####[place] [address] [place] [phone] GFR/1.73 sq M predicted among non-blacks MDRD vol rate/area (S/P/Bld) mL/min/{1.73_m2} Normal [facility] Comment on above: Result Comment: eGFR (Estimated GFR) Units of measure: mL/min/1.73 meters squared eGFR is derived from the reexpressed MDRD Study equation using the following parameters: serum creatinine, age, gender and race. The creatinine assay has been calibrated to be traceable to IDMS. An eGFR <60 mL/min/1.73m2 for >3 months is consistent with chronic kidney disease. Refer to KDOQI guidelines for clinical interpretation. In patients with unstable renal function, e.g. those with acute kidney injury, the eGFR may not accurately reflect actual GFR. Performed By: #### C BC, PT, PTT, BMP ####[facility] [place], [place] [phone] Glucose mass conc 86 mg/dL Normal 74-99 [facility] Comment on above: Result Comment: The [place] Diabetes Association (ADA) provides guidance for cutoff values for fasting glucose and random glucose. The ADA defines fasting as no caloric intake for at least 8 hours. Fasting plasma glucose results between 100 to 125 mg/dL indicate increased risk for diabetes (prediabetes). Fasting plasma glucose results greater than or equal to 126 mg/dL meet the criteria for diagnosis of diabetes. In the absence of unequivocal hyperglycemia, results should be confirmed by repeat testing. In a patient with classic symptoms of hyperglycemia or hyperglycemic crisis, random plasma glucose results greater than or equal to 200 mg/dL meet the criteria for diagnosis of diabetes. Reference: Standards of Medical Care in Diabetes 2016, [place] Diabetes Association. Diabetes Care. 2016.39(Suppl 1). Performed By: #### C BC, PT, PTT, BMP ####[facility] [address] [place], [place] [phone] Potassium molar conc 4.7 mmol/L Normal 3.7-5.1 [facility] Comment on above: Performed By: #### C BC, PT, PTT, BMP ####[facility] [place], [place] [phone] Sodium molar conc 142 mmol/L Normal 136-144 [facility] Comment on above: Performed By: #### C BC, PT, PTT, BMP ####[facility] [place], [place] [phone] Urea nitrogen mass conc 8 mg/dL Low 9-24 [facility] Comment on above: Performed By: #### C BC, PT, PTT, BMP ####[place] [address] [address] [place] [phone] CBCon 06-08-2018 Absolute nRBC <0.01 Normal <0.01 [facility] Comment on above: Performed By: #### C BC, PT, PTT, BMP ####[place] [address] [place] [phone] Erythrocyte distribution width Ratio (RBC) 14.8 % Normal 11.5-15.0 [facility] Comment on above: Performed By: #### C BC, PT, PTT, BMP ####[place] [address] [place] [phone] Hematocrit Volume Fraction (Bld) 47.5 % Normal 39.0-51.0 [facility] Comment on above: Performed By: #### C BC, PT, PTT, BMP ####[place] [address] [place] [phone] Hemoglobin mass conc (Bld) 15.6 g/dL Normal 13.0-17.0 [facility] Comment on above: Performed By: #### C BC, PT, PTT, BMP ####[place] [address] [place] [phone] MCH Entitic mass (RBC) 27.6 pG Normal 26.0-34.0 [facility] Comment on above: Performed By: #### C BC, PT, PTT, BMP ####[place] [address] [place] [phone] MCHC mass conc (RBC) 32.8 g/dL Normal 30.5-36.0 [facility] Comment on above: Performed By: #### C BC, PT, PTT, BMP ####[place] [address] [place] [phone] MCV Entitic volume (RBC) 83.9 fL Normal 80.0-100.0 [facility] Comment on above: Performed By: #### C BC, PT, PTT, BMP ####[address] [phone] Platelet mean volume Entitic volume (Bld) 10.2 fL Normal 9.0-12.7 [facility] Comment on above: Performed By: #### C BC, PT, PTT, BMP ####[place] [address], [place] [phone] Platelets #/vol (Bld) 320 10*3/uL Normal 150-400 [facility] Comment on above: Performed By: #### C BC, PT, PTT, BMP ####[address] [phone] RBC #/vol (Bld) 5.66 10*6/uL Normal 4.20-6.00 [facility] Comment on above: Performed By: #### C BC, PT, PTT, BMP ####[address] [phone] WBC #/vol (Bld) 10.64 10*3/uL Normal 3.70-11.00 [facility] Comment on above: Performed By: #### C BC, PT, PTT, BMP ####[address] [phone] EKG1on 06-08-2018 EKG1 NAME : DENISE LANTIGUA PID : [id number] : 1980 Gender : Male Race : Unknown ORD : Procedure Date : Jun 08 2018 12:28:02 Edit Date : Jun 09 2018 15:31:35 Diagnosis:NORMAL SINUS RHYTHM NORMAL ECG Confirmed by SHAUN VALDERRAMA M.D. ([id number]) on 06/09/2018 3:31:33 PM Ventricular Rate : 72 BPM Atrial Rate : 72 BPM P-R Interval : 140 ms QRS Duration : 88 ms Q-T Interval : 386 ms QTC Calculation(Bezet) : 422 ms P [place] : 20 degrees R [place] : 21 degrees T [place] : 35 degrees Test Reason : HTN PRE OP Location : 168 : [facility] Overread By : SHAUN VALDERRAMA M.D. Edited By : SHAUN VALDERRAMA M.D. Referred By : LUZ MARIA, Acquired by : Hernanedz GOODMAN [facility] HISTORY PHYSICALon HISTORY PHYSICAL HNO ID: [id number] Author: So Juan (Pa) Service: (none) Author Type: Physician Bale Breaker Operator Type: HANDP Filed: 06/09/2018 7:05 AM Note Text: HISTORY AND PHYSICAL EXAMINATION SERVICE DATE: 06/08/2018 SERVICE TIME: 2:17 PM PRIMARY CARE PHYSICIAN: Katie Salguero DO REASON FOR VISIT: Denise Lantigua is a 38 year old male who is scheduled for Left L5-S1 revision discectomy with root foraminotomy at the request of Dr. Laurel Littlejohn) Luz Maria for consultation. My final recommendation will be communicated back to the requesting physician by way of shared medical record or letter. The patient has the following: ACTIVE PROBLEM LIST Radiculopathy, Lumbar Region Lumbar Disc Herniation Degeneration of Lumbar Intervertebral Disc Subjective CHIEF COMPLAINT: Back pain and left leg pain HPI: pt is a 38 year old male with c/o low back pain and left leg pain for greater than 3 months. Aggravated by flexion, ext, standing, walking and walking upstairs. Better with medications and sitting. PAST MEDICAL HISTORY Diagnosis Date - Asthma - HTN (hypertension) PAST SURGICAL HISTORY Procedure Laterality Date - PAST SURGICAL HISTORY OF 2017 Left L5-S1 discectomy with foraminotomy FAMILY HISTORY Problem Relation Age of Onset - Diabetes Mother - Heart Attack Mother 58 SOCIAL HISTORY: Social History Marital status: Spouse name: Years of education: Number of children: Social History Main Topics Smoking status: Current Every Day Smoker Packs/day: 0.00 Years: 0.50 Types: Cigarettes Smokeless tobacco: Never Used MEDICATIONS: Prior to Admission medications as of 05/17/18 1149 Medication Sig Last Dose Taking amLODIPine (NORVASC) 5 mg tablet Take 5 mg by mouth once daily. Taking gabapentin (NEURONTIN) 300 mg capsule Taking PROAIR HFA 90 mcg/actuation inhaler TAKE 2 PUFFS BY MOUTH EVERY 4 HOURS NEEDED Taking traMADol (ULTRAM) 50 mg tablet Taking amitriptyline (ELAVIL) 10 mg tablet Take 10 mg by mouth at bedtime as needed. Taking amitriptyline (ELAVIL) 25 mg tablet Take 25 mg by mouth at bedtime as needed. Taking meloxicam (MOBIC) 15 mg tablet Take 1 tablet by mouth once daily. WITH FOOD Patient not taking: Reported on 04/26/2018 Not Taking No medication comments found. CURRENT ALLERGIES: ALLERGIES No Known Allergies REVIEW OF SYSTEMS: PAIN ASSESSMENT: General: No weight loss, malaise or fevers. Neuro: Postive for Headaches, Negative for Stroke-residual deficit Stroke-No residual deficit Hemiplegia/Hemiparesis Paraplegia/Paraparesis Quadriplegia/Quadripare sis Respiratory: Positive for Asthma, Tobacco Use 12 pack history, rarely uses inhaler, ., Negative for Current cough, Daily bronchodilator use for previous 3 months, Dyspnea, Home O2 Cardiovascular: Positive for: Hypertension, Negative for Recent IL, Angina, Arrhythmia, CAD, Chest Pain, CHF, PVD, Valvular Heart Disease, DVT/PE GI: No history of GI symptoms or problems. No history of esophageal varices, recent ascites, or ETOH greater than 2 drinks per day. : No history of dysuria, frequency or incontinence,, stones or chronic kidney disease Endocrine: No history of diabetes. Has not taken steroids within the past 30 days. No history of endocrinological symptoms or problems. Hematology: No history of bleeding or clotting disorder. Pt is not taking anti-coagulation or platelet medications. No history of hematological symptoms or problems. Oncology: No history of CA metastasis, chemo within 30 days, or radiotherapy within 90 days. Has not lost 10% of body wt in 6 months. No history of oncological symptoms or problems. Psych: No history of psychiatric symptoms or problems. Musculoskeletal: See HPI Skin: Negative for lesions, rash and itching. Objective PHYSICAL EXAM: VITALS: There were no vitals taken for this visit. General: Alert and oriented, No acute distress Skin: Normal color, no rash, no lesions. HEENT: EOM, pupils equal, round and reactive., No carotid bruits Cardiovascular: Normal S1 AND S2, no rubs, murmurs or gallops. No JVD. Pulse regular. Lungs: Normal breath sounds, no wheezes or crackles., No chest deformities or chest wall tenderness. Abdomen: Positive bowel sounds Extremities: No deformity, no edema or tenderness, no joint swelling or clubbing. Neurological: Normal cognition and motor skills. Pulses: Carotid and radial pulses normal +2. Pedal pulses normal +2. Diagnostic tests reviewed for today's visit: pending Most recent EKG: Preliminary: NSR Assessment ASSESSMENT Patient has the following medical conditions which may affect mandy-operative course HTN - Well controlled asthma- mild intermittent- rare use of albuterol METS: Climb a flight of stairs or walk up a hill (5.50 METs) Participate in moderate recreational activities, such as golf, bowling, dancing, doubles tennis, or throwing a baseball or football (6.00 METs) Patient denies any chest pain or undue shortness of breath with the above physical activity. ASA Class: 2 ANESTHESIA FINDINGS: Intubation History: No history of difficult intubation Significant Anesthesia Considerations: None Airway Exam: General: Normal appearance Mallampati Score is CLASS II ULBT: Class I - Lower incisors can bite the upper lip above the garcia line Neck: Normal appearance and function, Distance from hyoid to mentum during neck extension is at least 3 finger breaths Mouth: Normal tongue size and Mouth opening greater than 2 finger breaths Dentition: Intact Airway History: No abnormal airway history PLAN This patient is optimally prepared for surgery pending LABS, EKG and CXR. CONSULTS: Patient does not require consults for optimization at this time. The Following Tests/Procedures Have Been Initiated: orders placed by surgeon Planned Anesthetic: Per anesthesia choice Instructions Given to Patient: Patient given verbal and written preop instructions and voices comprehension and compliance. SIGNATURE: So Juan PA-C PATIENT NAME: Denise Lantigua DATE: June 08, 2018 TIME: 1:47 PM PAGER/CONTACT #: Hernandez [facility] PROGRESSon 06-08-2018 Protein mass conc HNO ID: [id number] Author: Ericka () Shruti Leblanc Service: (none) Author Type: Rubber And Pounder Type: Progress Notes Filed: 06/08/2018 2:39 PM Note Text: Radiology Service Progress Note PATIENT NAME: Denise Lantigua DATE OF SERVICE: June 08, 2018 TIME: 2:38 PM PATIENT IDENTITY VERIFICATION COMPLETED USING TWO (2) METHODS: Patient confirmed name verbally and Date of . PATIENT GENDER DATA: Male PATIENT RELEVANT IMPLANT DATA REVIEWED: Not Applicable RADIOLOGY DEPARTMENT: General X-ray: Exam(s) Completed: Chest X-Ray PERIPHERAL IV DATA: Not applicable SIGNED BY: RT Yordan June 08, 2018 2:[address] [facility] Protimeon 06-08-2018 Prothrombin time (PT) Coag time (PPP) 1.1 s Normal 0.9-1.3 [facility] Comment on above: Result Comment: Kierra min K Antagonist (VKA) Therapeutic Range: INR 2 to 3 (Target INR of 2.5) Note: For patients treated with VKA drugs, such as warfarin, the [place] [employer] 2012 Guideline recommends a therapeutic INR range of 2 to 3 (target INR of 2.5). This recommendation includes high-risk patients with antiphospholipid syndrome with previous arterial or venous thromboembolism, current-generation mechanical or bioprosthetic aortic heart valve replacement. Note: Patients with mechanical aortic valve replacement and additional risk factors for thromboembolic events (atrial fibrillation, previous thromboembolism, LV dysfunction, hypercoagulable conditions) or an older generation mechanical AVR (i.e., ball in-Cage) or any mechanical MVR should have a INR therapeutic range of 2.5 to 3.5 (target INR of 3). Pashatt GH, et al. Chest 2012, 141:7S-47S Ravi RA, et al. [facility] 2017, 70: 252-289 Performed By: #### C BC, PT, PTT, BMP ####[facility] [address] [place], [place] [phone] Prothrombin time (PT) Coag time (PPP) 11.1 s Normal 9.7-13.0 [facility] Comment on above: Performed By: #### C BC, PT, PTT, BMP ####[facility] [address] [place], [place] [phone] Staph aureus PCRon 8 MRSA PCR Negative Normal [facility] Comment on above: Performed By: #### S APCR ####[facility] [address] [place], [place] [phone] S aureus Spec Source Nasal Normal [facility] Comment on above: Performed By: #### S APCR ####[facility] [place] [phone] Staph aureus PCR Negative Normal [facility] Comment on above: Performed By: #### S APCR ####[place] [id number] [place] [phone] Type and SCR (30D)on 018 ABO/RH(D) Positive Normal [facility] Comment on above: Performed By: #### T SCR30 #### [facility] [address] [place] [address] Urinalysison 06-08-2018 Bilirubin, Urine Negative Normal Negative [facility] Comment on above: Performed By: #### U A ####[place] [address] [place] [phone] Clarity Nom (U) Clear Normal Clear [facility] Comment on above: Performed By: #### U A ####[place] [address] [place] [phone] Color Nom (U) Yellow Normal Yellow [facility] Comment on above: Performed By: #### U A ####[facility] [place] [phone] Comments SEE COMMENT Normal [facility] Comment on above: Result Comment: Micr oscopic not warranted Performed By: #### U A ####[facility] [place] [phone] Glucose Ql (U) Negative Normal Negative [facility] Comment on above: Performed By: #### U A ####[facility] [place] [phone] Hemoglobin/Blood,Ur Negative Normal Negative [facility] Comment on above: Performed By: #### U A ####[place] [address] [place] [phone] Ketones Ql (U) Negative Normal Negative [facility] Comment on above: Performed By: #### U A ####[place] [phone] Leukest Negative Normal Negative [facility] Comment on above: Performed By: #### U A ####[place] [phone] Nitrite Ql (U) Negative Normal Negative [facility] Comment on above: Performed By: #### U A ####[place] [phone] pH (Bld) 7.0 Normal 4.5-8.0 [facility] Comment on above: Performed By: #### U A ####[place] [phone] Protein mass conc (U) Negative Normal Negative [facility] Comment on above: Performed By: #### U A ####[place] [phone] Specific [place], Ur 1.011 Normal 1.005-1.030 [facility] Comment on above: Performed By: #### U A ####[place] [phone] Urine Gerard Comment SEE COMMENT Normal [facility] Comment on above: Result Comment: N/A Performed By: #### U A ####[place] [phone] Urobilinogen Qn (U) Normal Normal Normal [facility] Comment on above: Performed By: #### U A ####[address] [phone] XR CHEST 2V FRONTAL/LATon XR CHEST 2V FRONTAL/LAT * * *Final Report* * * DATE OF EXAM: Jun 08 2018 4:41PM CHX [id number] - XR CHEST 2V FRONTAL/LAT / PROCEDURE REASON: multiple diagnoses * * * * Physician Interpretation * * * * EXAMINATION: CHEST RADIOGRAPH (2 VIEW FRONTAL and LATERAL) Clinical History: Multiple diagnoses. M: XC2_4 Comparison: None RESULT: Lines, tubes, and devices: None. Lungs and pleura: No consolidation. No lung mass. No pleural effusion. Cardiomediastinal silhouette: Normal cardiomediastinal silhouette. Other: IMPRESSION: No acute radiographic abnormality. Electronics Teacher: CHAKA Transcribe Date/Time: Jun 08 2018 2:53P Dictated by : MAY HUTCHINSON MD This examination was interpreted and the report reviewed and electronically signed by: MAY HUTCHINSON MD on Jun 09 2018 7:39AM EST [id number] Normal [facility] CNCOon 05-23-2018 CNCO Letter Text May 23, 2018 Denise Lantigua [address] [place] [address] Dear Mr. Lantigua, Thank you for choosing [facility] for your medical care. To help reduce healthcare costs, it is important for us to collect deductible at the time of service. You are scheduled for services on 06/14/2018. According to your insurance company, you are responsible for a cdeductible of $1000. Please mail your check or money order, payable to [facility] along with the stub below, in the enclosed envelope. If you would like to pay with your credit card, please call [phone] for assistance or pay online at [employer]. Again, thank you for choosing [facility]. Sincerely, [facility] Patient Medical Assistant Float Please detach and return in the enclosed envelope. Pay online at [email or web address] Patient Name: Denise Lantigua EMPI Number: [id number] Date of Service: 06/14/2018 Deductible Due: 1000 Amount Enclosed: $ .__ Please make checks payable to [facility]. Normal [facility] HOSPon 05-19-2018 HOSP Patient:Denise Lantigua MRN: Height:5' 9 (1.753 m) Weight:151 lb (68.493 kg) Outpatient Medications as of 06/14/18: amLODIPine (NORVASC) 5 mg tablet gabapentin (NEURONTIN) 300 mg capsule PROAIR HFA 90 mcg/actuation inhaler traMADol (ULTRAM) 50 mg tablet amitriptyline (ELAVIL) 10 mg tablet amitriptyline (ELAVIL) 25 mg tablet meloxicam (MOBIC) 15 mg tablet Admission/Clinic Administered Medications as of 06/14/18: ceFAZolin iv piggyback 2 g in D5W (iso-osmotic) 100 mL (ANCEF) lactated ringers infusion fentaNYL 50 mcg/mL 25 mcg injection (SUBLIMAZE) ondansetron 4 mg tab(s) (ZOFRAN) ondansetron (PF) 4 mg injection (ZOFRAN) Problem List: Radiculopathy, lumbar region [M54.16] Lumbar disc herniation [M51.26] Degeneration of lumbar intervertebral disc [M51.36] Allergies: No Known Allergies Date Verified:06/14/18 Lab Values Lab Value Units Date High Low POTA* 4.7 mmol/L 06/08/2018 5.1 3.7 NICOLAS* 47.5 % 06/08/2018 51.0 39.0 Progress Notes ([facility] CC): RT Rinku, Tech 06/08/2018 2:39 PM Signed Radiology Service Progress Note PATIENT NAME: Denise Lantigua DATE OF SERVICE: June 08, 2018 TIME: 2:38 PM PATIENT IDENTITY VERIFICATION COMPLETED USING TWO (2) METHODS: Patient confirmed name verbally and Date of . PATIENT GENDER DATA: Male PATIENT RELEVANT IMPLANT DATA REVIEWED: Not Applicable RADIOLOGY DEPARTMENT: General X-ray: Exam(s) Completed: Chest X-Ray PERIPHERAL IV DATA: Not applicable SIGNED BY: RT Yordan June 08, 2018 2:38 PM Progress Notes ([facility]VW): Laurel Loera MD 05/17/2018 12:19 PM Signed is a pleasant 38-year-old gentleman is here in spine surgery clinic with history of lower back and left lower extremity pain. Pain is radiating up to left foot. Numbness over left foot. Occasional minimal right leg pain. Pain to 6 lateral his activity. Underwent left L5-S1 discectomy in 2017. Post surgery he was doing well for few months. Neurological examination showed antalgic gait, lumbar scar is healthy. No motor weakness. MRI lumbar spine showed recurrent disc herniation at L5-S1 level on the left side causing compression over left L5, S1. Received L5-S1 injection without any pain relief even for a day. And tramadol. Discussed treatment options which include continuing conservative treatment, pain medication, repeat epidural injections and surgical intervention. Discussed in detail about left L5-S1 revision discectomy with foraminotomy surgical procedure, its advantages and risks. All his questions were answered. Also discussed the need of chronic pain and rehabilitation program even after surgery to help his pain to get better. Sarah Mueller RN 05/18/2018 4:10 PM Signed Neuro SPINE CARE COORDINATION PRE-OP VISIT ? Met with patient Grzegorz for pre op education. Given both written and verbal instructions re : Skin prep, wound care, pain management and post op restrictions. ? Provided to patient: [facility] Surgery Guide, skin prep supplies, Spine Surgery Pre/post op education packet. Yes. ? Reviewed with patient to report to 1st floor [place] surgery Yes. ? Reviewed with the patient that OR will call the day before to get surgery report time? Yes. ? Patient aware eat nothing after midnight prior to surgery, clear liquids only until 2 hours before report time. Yes. ? Patient aware surgery will be OUTPATIENT. ? Discussed care post discharge : Self care. ? Does patient have transportation to and from surgery ? Yes. ? Nasal swab obtained ? No. Patient instructed in mupirocin treatment : will be called by office staff if results are positive and begain treatment 5 days before surgery. ? Questions answered and patient does voice(s) understanding via teach back. ? Additional Comments : Post -op Support family Sarah Loera MD 05/19/2018 2:51 PM Signed SPINE SURGERY NEW PATIENT PCP: Katie Salguero DO REFERRING PROVIDER: Dr. Chuckie MD SUBJECTIVE CHIEF COMPLAINT: Low back and left leg pain HISTORY OF PRESENT ILLNESS: is a pleasant 38-year-old gentleman is in spine surgery clinic with history of lower back and left lower extremity pain. Pain is radiating up to left foot. Numbness over left foot. Occasional minimal right leg pain. Pain is aggravated by activity. Underwent left L5-S1 discectomy in 2017. Post surgery he was doing well for few months. Tried physical therapy. Received left S1 transforaminal epidural injection without any pain relief even for first few hours. On tremadol PRECIPITATING EVENT: None DURATION OF SYMPTOMS: Greater Than 3 Months PAIN EVALUATION 05/17/2018 Pain Score: 8 Pain Location: Back-Lower left leg Description: Aching;Stabbing Frequency: Continuous Pain Radiation: Lower back pain radiating to left upper extremity up to foot Aggravating Factors: Flexion, Extension, Standing, Walking, Walking upstairs Alleviating Factors: Medications, Sitting Pain Ratio: Pain in the leg(s) is greater than in the back DERMATOMAL DISTRIBUTION: Left: S1 AMBULATORY STATUS: Impaired Community Distances PREVIOUS CONSERVATIVE TREATMENTS: Muscle Relaxants Analgesics Oral Steroids Epidural Blocks: Date(s) March 2018 - no pain relief even for first few hours. PREVIOUS SPINAL SURGERY: Left L5-S1 discectomy with foraminotomy in 2017 ACTIVE PROBLEM LIST Radiculopathy, Lumbar Region Lumbar Disc Herniation Degeneration of Lumbar Intervertebral Disc No past medical history on file. No past surgical history on file. No family history on file. Social History Marital status: Spouse name: Years of education: Number of children: Social History Main Topics Smoking status: Current Every Day Smoker Packs/day: 0.00 Years: 0.50 Types: Cigarettes Smokeless tobacco: Never Used ALLERGIES No Known Allergies MEDICATIONS: amLODIPine (NORVASC) 5 mg tablet Take 5 mg by mouth once daily. gabapentin (NEURONTIN) 300 mg capsule PROAIR HFA 90 mcg/actuation inhaler TAKE 2 PUFFS BY MOUTH EVERY 4 HOURS NEEDED traMADol (ULTRAM) 50 mg tablet amitriptyline (ELAVIL) 10 mg tablet Take 10 mg by mouth at bedtime as needed. amitriptyline (ELAVIL) 25 mg tablet Take 25 mg by mouth at bedtime as needed. meloxicam (MOBIC) 15 mg tablet Take 1 tablet by mouth once daily. WITH FOOD REVIEW OF SYSTEMS: PAIN ASSESSMENT: See HPI. GENERAL: Denies fever, chills malaise and weight loss. HEENT: No recent change in vision or hearing. CARDIOVASCULAR: Denies chest pain, history of A-fib, valvular disease, or pacemaker/ICD. RESPIRATORY: Denies SOB, sputum production, and hemoptysis. GI: Denies GI ulcers, inflammatory disease, or liver disease. : Denies change in frequency or urgency, kidney disease, and burning with urination. MUSCULOSKELETAL: Negative for joint pain or swelling, back pain or muscle pain. SKIN: Denies rash or itching. PSYCHOLOGICAL: Denies uncontrolled depression or anxiety. NEURO: Denies CVA, seizures, headaches. ENDOCRINE: Denies diabetes, thyroid disease. HEMATOLOGY/LYMPHOLOGY: Denies cancer, bleeding or clotting disorders, anemia,and DVT's. ALLERGIC/IMMUNOLOGICAL: Denies risks for infection, or recent MRSA infections. OBJECTIVE: PHYSICAL EXAM BP 127/88 (BP Site: Left Arm, BP Position: Sitting, BP Cuff Size: Regular Adult) Pulse 82 Temp 36.7 ?C (98.1 ?F) Ht 175.3 cm (5' 9 ) Wt 68.5 kg (151 lb) SpO2 97% BMI 22.30 kg/m? GENERAL APPEARANCE: Well nourished, well developed, and no apparent distress. NEURO PSYCH: Patient oriented to person, place, and time. Mood pleasant. Benign affect. CARDIOVASCULAR: Palpable pulses. No edema noted. No varicosities. SKIN: Head, neck, trunk, and extremities dry, intact and without lesions. LYMPHATICS: No palpable nodes in cervical or axillae areas. Groin exam deferred. MUSCULOSKELETAL VISUAL INSPECTION CERVICAL: WNL THORACIC: WNL LUMBAR: Lumbar scar is healthy PALPATION: SPINOUS PROCESS: No pain. PARASPINALS: No pain. MUSCLE BULK: Normal and symmetrical in the upper AND lower extremities. MUSCLE TONE: Normal. MOTOR: 5/5 in all muscle groups. SENSORY: Normal sensory exam GAIT: Antalgic. REFLEXES: +2 to bilateral U/L extremities. PROPRIOCEPTION: Not tested. LONG TRACT SIGNS: No clonus. No Hoffmans. STRAIGHT LEG TEST: Ipsilateral: Positive. Contralateral: Negative. NEURO TESTS: Cranial Nerves: Normal mood and affect. CNII-XII grossly intact. DATA REVIEW [facility] records reviewed Images reviewed with the patient MRI lumbar spine showed recurrent disc herniation at L5-S1 level on the left side causing compression over left L5, S1. ASSESSMENT/PLAN IMPRESSION: (M54.16) Radiculopathy, lumbar region (primary encounter diagnosis) is a pleasant 38-year-old gentleman is in spine surgery clinic with history of lower back and left lower extremity pain. Pain is radiating up to left foot. Numbness over left foot. Occasional minimal right leg pain. Pain is aggravated by activity. Underwent left L5-S1 discectomy in 2017. Post surgery he was doing well for few months. Tried physical therapy. Received left S1 transforaminal epidural injection without any pain relief even for first few hours. On tremadol Neurological examination showed antalgic gait, lumbar scar is healthy. No motor weakness. MRI lumbar spine showed recurrent disc herniation at L5-S1 level on the left side causing compression over left L5, S1. Discussed treatment options which include continuing conservative treatment, pain medication, repeat epidural injections and surgical intervention. Considering recommended disc herniation with S1 root compression and nonimprovement of pain with conservative treatment , I did surgery is also an option. Discussed in detail about left L5-S1 revision discectomy with foraminotomy surgical procedure, its advantages and risks. Discussed the realistic outcome of surgery. Surgery may help to improve his left leg pain, however back pain may not completely improve. All his questions were answered. Also discussed the need of chronic pain and rehabilitation program even after surgery to help his chronic pain to get better. The majority of the visit was spent counseling and/or coordinating care for the patient. The patient was counseled regarding back pain. Total face to face time was 45 minutes. SIGNATURE: Laurel Loera MD PATIENT NAME: Denise Lantigua DATE: May 19, 2018 TIME: 1:51 PM PAGER: [facility] PROGRESSon 05-19-2018 Protein mass conc HNO ID: [id number] Author: Laurel Loera Service: (none) Author Type: Physician Type: Progress Notes Filed: 05/19/2018 2:51 PM Note Text: SPINE SURGERY NEW PATIENT PCP: Katie Salguero DO REFERRING PROVIDER: Dr. Chuckie MD SUBJECTIVE CHIEF COMPLAINT: Low back and left leg pain HISTORY OF PRESENT ILLNESS: is a pleasant 38-year-old gentleman is in spine surgery clinic with history of lower back and left lower extremity pain. Pain is radiating up to left foot. Numbness over left foot. Occasional minimal right leg pain. Pain is aggravated by activity. Underwent left L5-S1 discectomy in 2017. Post surgery he was doing well for few months. Tried physical therapy. Received left S1 transforaminal epidural injection without any pain relief even for first few hours. On tremadol PRECIPITATING EVENT: None DURATION OF SYMPTOMS: Greater Than 3 Months PAIN EVALUATION 05/17/2018 Pain Score: 8 Pain Location: Back-Lower left leg Description: Aching;Stabbing Frequency: Continuous Pain Radiation: Lower back pain radiating to left upper extremity up to foot Aggravating Factors: Flexion, Extension, Standing, Walking, Walking upstairs Alleviating Factors: Medications, Sitting Pain Ratio: Pain in the leg(s) is greater than in the back DERMATOMAL DISTRIBUTION: Left: S1 AMBULATORY STATUS: Impaired Community Distances PREVIOUS CONSERVATIVE TREATMENTS: Muscle Relaxants Analgesics Oral Steroids Epidural Blocks: Date(s) March 2018 - no pain relief even for first few hours. PREVIOUS SPINAL SURGERY: Left L5-S1 discectomy with foraminotomy in 2017 ACTIVE PROBLEM LIST Radiculopathy, Lumbar Region Lumbar Disc Herniation Degeneration of Lumbar Intervertebral Disc No past medical history on file. No past surgical history on file. No family history on file. Social History Marital status: Spouse name: Years of education: Number of children: Social History Main Topics Smoking status: Current Every Day Smoker Packs/day: 0.00 Years: 0.50 Types: Cigarettes Smokeless tobacco: Never Used ALLERGIES No Known Allergies MEDICATIONS: amLODIPine (NORVASC) 5 mg tablet Take 5 mg by mouth once daily. gabapentin (NEURONTIN) 300 mg capsule PROAIR HFA 90 mcg/actuation inhaler TAKE 2 PUFFS BY MOUTH EVERY 4 HOURS NEEDED traMADol (ULTRAM) 50 mg tablet amitriptyline (ELAVIL) 10 mg tablet Take 10 mg by mouth at bedtime as needed. amitriptyline (ELAVIL) 25 mg tablet Take 25 mg by mouth at bedtime as needed. meloxicam (MOBIC) 15 mg tablet Take 1 tablet by mouth once daily. WITH FOOD REVIEW OF SYSTEMS: PAIN ASSESSMENT: See HPI. GENERAL: Denies fever, chills malaise and weight loss. HEENT: No recent change in vision or hearing. CARDIOVASCULAR: Denies chest pain, history of A-fib, valvular disease, or pacemaker/ICD. RESPIRATORY: Denies SOB, sputum production, and hemoptysis. GI: Denies GI ulcers, inflammatory disease, or liver disease. : Denies change in frequency or urgency, kidney disease, and burning with urination. MUSCULOSKELETAL: Negative for joint pain or swelling, back pain or muscle pain. SKIN: Denies rash or itching. PSYCHOLOGICAL: Denies uncontrolled depression or anxiety. NEURO: Denies CVA, seizures, headaches. ENDOCRINE: Denies diabetes, thyroid disease. HEMATOLOGY/LYMPHOLOGY: Denies cancer, bleeding or clotting disorders, anemia,and DVT's. ALLERGIC/IMMUNOLOGICAL: Denies risks for infection, or recent MRSA infections. OBJECTIVE: PHYSICAL EXAM BP 127/88 (BP Site: Left Arm, BP Position: Sitting, BP Cuff Size: Regular Adult) Pulse 82 Temp 36.7 ?C (98.1 ?F) Ht 175.3 cm (5' 9 ) Wt 68.5 kg (151 lb) SpO2 97% BMI 22.30 kg/m? GENERAL APPEARANCE: Well nourished, well developed, and no apparent distress. NEURO PSYCH: Patient oriented to person, place, and time. Mood pleasant. Benign affect. CARDIOVASCULAR: Palpable pulses. No edema noted. No varicosities. SKIN: Head, neck, trunk, and extremities dry, intact and without lesions. LYMPHATICS: No palpable nodes in cervical or axillae areas. Groin exam deferred. MUSCULOSKELETAL VISUAL INSPECTION CERVICAL: WNL THORACIC: WNL LUMBAR: Lumbar scar is healthy PALPATION: SPINOUS PROCESS: No pain. PARASPINALS: No pain. MUSCLE BULK: Normal and symmetrical in the upper AND lower extremities. MUSCLE TONE: Normal. MOTOR: 5/5 in all muscle groups. SENSORY: Normal sensory exam GAIT: Antalgic. REFLEXES: +2 to bilateral U/L extremities. PROPRIOCEPTION: Not tested. LONG TRACT SIGNS: No clonus. No Hoffmans. STRAIGHT LEG TEST: Ipsilateral: Positive. Contralateral: Negative. NEURO TESTS: Cranial Nerves: Normal mood and affect. CNII-XII grossly intact. DATA REVIEW [facility] records reviewed Images reviewed with the patient MRI lumbar spine showed recurrent disc herniation at L5-S1 level on the left side causing compression over left L5, S1. ASSESSMENT/PLAN IMPRESSION: (M54.16) Radiculopathy, lumbar region (primary encounter diagnosis) is a pleasant 38-year-old gentleman is in spine surgery clinic with history of lower back and left lower extremity pain. Pain is radiating up to left foot. Numbness over left foot. Occasional minimal right leg pain. Pain is aggravated by activity. Underwent left L5-S1 discectomy in 2017. Post surgery he was doing well for few months. Tried physical therapy. Received left S1 transforaminal epidural injection without any pain relief even for first few hours. On tremadol Neurological examination showed antalgic gait, lumbar scar is healthy. No motor weakness. MRI lumbar spine showed recurrent disc herniation at L5-S1 level on the left side causing compression over left L5, S1. Discussed treatment options which include continuing conservative treatment, pain medication, repeat epidural injections and surgical intervention. Considering recommended disc herniation with S1 root compression and nonimprovement of pain with conservative treatment , I did surgery is also an option. Discussed in detail about left L5-S1 revision discectomy with foraminotomy surgical procedure, its advantages and risks. Discussed the realistic outcome of surgery. Surgery may help to improve his left leg pain, however back pain may not completely improve. All his questions were answered. Also discussed the need of chronic pain and rehabilitation program even after surgery to help his chronic pain to get better. The majority of the visit was spent counseling and/or coordinating care for the patient. The patient was counseled regarding back pain. Total face to face time was 45 minutes. SIGNATURE: Laurel Loera MD PATIENT NAME: Denise Reagan Grzegorz DATE: May 19, 2018 TIME: 1:51 PM PAGER: [facility] CNOVstephie 05-17-2018 CNOV Office Visit (NSFRVW ) DENISE LANTIGUA ([id number]) 1980 M Date Time Provider Department 05/17/18 11:20 AM LUZ MARIALAUREL GARCIA)NSFRVW During your visit today, we recorded the following information about you: Temperature Pulse Blood pressure Weight 98.1 degrees 82/minute 127/88 68.5 kg Height 1.753 m Laurel Loera MD 05/17/2018 12:19 PM Signed is a pleasant 38-year-old gentleman is here in spine surgery clinic with history of lower back and left lower extremity pain. Pain is radiating up to left foot. Numbness over left foot. Occasional minimal right leg pain. Pain to 6 lateral his activity. Underwent left L5-S1 discectomy in 2017. Post surgery he was doing well for few months. Neurological examination showed antalgic gait, lumbar scar is healthy. No motor weakness. MRI lumbar spine showed recurrent disc herniation at L5-S1 level on the left side causing compression over left L5, S1. Received L5-S1 injection without any pain relief even for a day. And tramadol. Discussed treatment options which include continuing conservative treatment, pain medication, repeat epidural injections and surgical intervention. Discussed in detail about left L5-S1 revision discectomy with foraminotomy surgical procedure, its advantages and risks. All his questions were answered. Also discussed the need of chronic pain and rehabilitation program even after surgery to help his pain to get better. Sarah Mueller RN 05/18/2018 4:10 PM Signed Neuro SPINE CARE COORDINATION PRE-OP VISIT ? Met with patient Grzegorz for pre op education. Given both written and verbal instructions re : Skin prep, wound care, pain management and post op restrictions. ? Provided to patient: [facility] Surgery Guide, skin prep supplies, Spine Surgery Pre/post op education packet. Yes. ? Reviewed with patient to report to 1st floor [place] surgery Yes. ? Reviewed with the patient that OR will call the day before to get surgery report time? Yes. ? Patient aware eat nothing after midnight prior to surgery, clear liquids only until 2 hours before report time. Yes. ? Patient aware surgery will be OUTPATIENT. ? Discussed care post discharge : Self care. ? Does patient have transportation to and from surgery ? Yes. ? Nasal swab obtained ? No. Patient instructed in mupirocin treatment : will be called by office staff if results are positive and begain treatment 5 days before surgery. ? Questions answered and patient does voice(s) understanding via teach back. ? Additional Comments : Post -op Support family Sarah Vonniecarolyne NUBIA Loera MD 05/19/2018 2:51 PM Signed SPINE SURGERY NEW PATIENT PCP: Katie Salguero DO REFERRING PROVIDER: Dr. Chuckie MD SUBJECTIVE CHIEF COMPLAINT: Low back and left leg pain HISTORY OF PRESENT ILLNESS: is a pleasant 38-year-old gentleman is in spine surgery clinic with history of lower back and left lower extremity pain. Pain is radiating up to left foot. Numbness over left foot. Occasional minimal right leg pain. Pain is aggravated by activity. Underwent left L5-S1 discectomy in 2017. Post surgery he was doing well for few months. Tried physical therapy. Received left S1 transforaminal epidural injection without any pain relief even for first few hours. On tremadol PRECIPITATING EVENT: None DURATION OF SYMPTOMS: Greater Than 3 Months PAIN EVALUATION 05/17/2018 Pain Score: 8 Pain Location: Back-Lower left leg Description: Aching;Stabbing Frequency: Continuous Pain Radiation: Lower back pain radiating to left upper extremity up to foot Aggravating Factors: Flexion, Extension, Standing, Walking, Walking upstairs Alleviating Factors: Medications, Sitting Pain Ratio: Pain in the leg(s) is greater than in the back DERMATOMAL DISTRIBUTION: Left: S1 AMBULATORY STATUS: Impaired Community Distances PREVIOUS CONSERVATIVE TREATMENTS: Muscle Relaxants Analgesics Oral Steroids Epidural Blocks: Date(s) March 2018 - no pain relief even for first few hours. PREVIOUS SPINAL SURGERY: Left L5-S1 discectomy with foraminotomy in 2017 ACTIVE PROBLEM LIST Radiculopathy, Lumbar Region Lumbar Disc Herniation Degeneration of Lumbar Intervertebral Disc No past medical history on file. No past surgical history on file. No family history on file. Social History Marital status: Spouse name: Years of education: Number of children: Social History Main Topics Smoking status: Current Every Day Smoker Packs/day: 0.00 Years: 0.50 Types: Cigarettes Smokeless tobacco: Never Used ALLERGIES No Known Allergies MEDICATIONS: amLODIPine (NORVASC) 5 mg tablet Take 5 mg by mouth once daily. gabapentin (NEURONTIN) 300 mg capsule PROAIR HFA 90 mcg/actuation inhaler TAKE 2 PUFFS BY MOUTH EVERY 4 HOURS NEEDED traMADol (ULTRAM) 50 mg tablet amitriptyline (ELAVIL) 10 mg tablet Take 10 mg by mouth at bedtime as needed. amitriptyline (ELAVIL) 25 mg tablet Take 25 mg by mouth at bedtime as needed. meloxicam (MOBIC) 15 mg tablet Take 1 tablet by mouth once daily. WITH FOOD REVIEW OF SYSTEMS: PAIN ASSESSMENT: See HPI. GENERAL: Denies fever, chills malaise and weight loss. HEENT: No recent change in vision or hearing. CARDIOVASCULAR: Denies chest pain, history of A-fib, valvular disease, or pacemaker/ICD. RESPIRATORY: Denies SOB, sputum production, and hemoptysis. GI: Denies GI ulcers, inflammatory disease, or liver disease. : Denies change in frequency or urgency, kidney disease, and burning with urination. MUSCULOSKELETAL: Negative for joint pain or swelling, back pain or muscle pain. SKIN: Denies rash or itching. PSYCHOLOGICAL: Denies uncontrolled depression or anxiety. NEURO: Denies CVA, seizures, headaches. ENDOCRINE: Denies diabetes, thyroid disease. HEMATOLOGY/LYMPHOLOGY: Denies cancer, bleeding or clotting disorders, anemia,and DVT's. ALLERGIC/IMMUNOLOGICAL: Denies risks for infection, or recent MRSA infections. OBJECTIVE: PHYSICAL EXAM BP 127/88 (BP Site: Left Arm, BP Position: Sitting, BP Cuff Size: Regular Adult) Pulse 82 Temp 36.7 ?C (98.1 ?F) Ht 175.3 cm (5' 9 ) Wt 68.5 kg (151 lb) SpO2 97% BMI 22.30 kg/m? GENERAL APPEARANCE: Well nourished, well developed, and no apparent distress. NEURO PSYCH: Patient oriented to person, place, and time. Mood pleasant. Benign affect. CARDIOVASCULAR: Palpable pulses. No edema noted. No varicosities. SKIN: Head, neck, trunk, and extremities dry, intact and without lesions. LYMPHATICS: No palpable nodes in cervical or axillae areas. Groin exam deferred. MUSCULOSKELETAL VISUAL INSPECTION CERVICAL: WNL THORACIC: WNL LUMBAR: Lumbar scar is healthy PALPATION: SPINOUS PROCESS: No pain. PARASPINALS: No pain. MUSCLE BULK: Normal and symmetrical in the upper AND lower extremities. MUSCLE TONE: Normal. MOTOR: 5/5 in all muscle groups. SENSORY: Normal sensory exam GAIT: Antalgic. REFLEXES: +2 to bilateral U/L extremities. PROPRIOCEPTION: Not tested. LONG TRACT SIGNS: No clonus. No Hoffmans. STRAIGHT LEG TEST: Ipsilateral: Positive. Contralateral: Negative. NEURO TESTS: Cranial Nerves: Normal mood and affect. CNII-XII grossly intact. DATA REVIEW [facility] records reviewed Images reviewed with the patient MRI lumbar spine showed recurrent disc herniation at L5-S1 level on the left side causing compression over left L5, S1. ASSESSMENT/PLAN IMPRESSION: (M54.16) Radiculopathy, lumbar region (primary encounter diagnosis) is a pleasant 38-year-old gentleman is in spine surgery clinic with history of lower back and left lower extremity pain. Pain is radiating up to left foot. Numbness over left foot. Occasional minimal right leg pain. Pain is aggravated by activity. Underwent left L5-S1 discectomy in 2017. Post surgery he was doing well for few months. Tried physical therapy. Received left S1 transforaminal epidural injection without any pain relief even for first few hours. On tremadol Neurological examination showed antalgic gait, lumbar scar is healthy. No motor weakness. MRI lumbar spine showed recurrent disc herniation at L5-S1 level on the left side causing compression over left L5, S1. Discussed treatment options which include continuing conservative treatment, pain medication, repeat epidural injections and surgical intervention. Considering recommended disc herniation with S1 root compression and nonimprovement of pain with conservative treatment , I did surgery is also an option. Discussed in detail about left L5-S1 revision discectomy with foraminotomy surgical procedure, its advantages and risks. Discussed the realistic outcome of surgery. Surgery may help to improve his left leg pain, however back pain may not completely improve. All his questions were answered. Also discussed the need of chronic pain and rehabilitation program even after surgery to help his chronic pain to get better. The majority of the visit was spent counseling and/or coordinating care for the patient. The patient was counseled regarding back pain. Total face to face time was 45 minutes. SIGNATURE: Laurel Loera MD PATIENT NAME: Denise Lantigua DATE: May 19, 2018 TIME: 1:51 PM PAGER: Referring Provider: NATALI SCHNEIDER (ALBERTO) [[id number]] Allergies As of Date: 05/17/2018 (No Known Allergies) Date Reviewed: 05/17/2018 Reviewed by: Rhona Coyne Ma - Fully Assessed Reason for Visit: New Patient [172] Primary Visit Diagnosis:Radiculopathy , lumbar region [M54.16] Prescriptions as of 05/17/2018 Sig: AMLODIPINE 5 MG TABLET Take 5 mg by mouth once daily. GABAPENTIN 300 MG CAPSULE PROAIR HFA 90 MCG/ACTUATION A* TAKE 2 PUFFS BY MOUTH EVERY 4* TRAMADOL 50 MG TABLET AMITRIPTYLINE 10 MG TABLET Take 10 mg by mouth at bedtim* AMITRIPTYLINE 25 MG TABLET Take 25 mg by mouth at bedtim* MELOXICAM 15 MG TABLET Take 1 tablet by mouth once d* Patient not taking: Reported on 04/26/2018 Problem List As Of Date 05/17/2018 Noted Resolved Radiculopathy, lumbar region [M54.16] INVALID FOR* More... Lumbar disc herniation [M51.26] INVALID FOR* More... Degeneration of lumbar intervertebral disc [M51*INVALID FOR* More... Other instructions from your clinician: is a pleasant 38-year-old gentleman is here in spine surgery clinic with history of lower back and left lower extremity pain. Pain is radiating up to left foot. Numbness over left foot. Occasional minimal right leg pain. Pain to 6 lateral his activity. Underwent left L5-S1 discectomy in 2017. Post surgery he was doing well for few months. Neurological examination showed antalgic gait, lumbar scar is healthy. No motor weakness. MRI lumbar spine showed recurrent disc herniation at L5-S1 level on the left side causing compression over left L5, S1. Received L5-S1 injection without any pain relief even for a day. And tramadol. Discussed treatment options which include continuing conservative treatment, pain medication, repeat epidural injections and surgical intervention. Discussed in detail about left L5-S1 revision discectomy with foraminotomy surgical procedure, its advantages and risks. All his questions were answered. Also discussed the need of chronic pain and rehabilitation program even after surgery to help his pain to get better. Visit Notes: >> Sarah Mueller RN Ekaterina May 18, 2018 4:04 PM Status: Signed Neuro SPINE CARE COORDINATION PRE-OP VISIT ? Met with patient Grzegorz for pre op education. Given both written and verbal instructions re : Skin prep, wound care, pain management and post op restrictions. ? Provided to patient: [facility] Surgery Guide, skin prep supplies, Spine Surgery Pre/post op education packet. Yes. ? Reviewed with patient to report to 1st floor [place] surgery Yes. ? Reviewed with the patient that OR will call the day before to get surgery report time? Yes. ? Patient aware eat nothing after midnight prior to surgery, clear liquids only until 2 hours before report time. Yes. ? Patient aware surgery will be OUTPATIENT. ? Discussed care post discharge : Self care. ? Does patient have transportation to and from surgery ? Yes. ? Nasal swab obtained ? No. Patient instructed in mupirocin treatment : will be called by office staff if results are positive and begain treatment 5 days before surgery. ? Questions answered and patient does voice(s) understanding via teach back. ? Additional Comments : Post -op Support family Sarah Sorianoghanshyam RN Encounter Status:Closed by LAUREL LOERA MD on 05/19/18 [facility] CNOVon 04-26-2018 CNOV Office Visit ([facility] ) DENISE LANTIGUA ([id number]) 1980 M Date Time Provider Department 04/26/18 10:00 AM NATALI SCHNEIDER) [facility] During your visit today, we recorded the following information about you: Pulse Blood pressure 71/minute 133/93 Natali Schneider PA-C 04/26/2018 12:12 PM Signed SPINE CARE PATH RADICULAR LEG PAIN: CHRONIC FOLLOW UP SUBJECTIVE HISTORY OF PRESENT ILLNESS: Reason for Visit: Follow up low back pain radiating down left leg Denise Lantigua is seen for 6 week follow up. He is feeling the same. The distribution of symptoms is unchanged. Pain is currently 8 out of 10. Interim treatment has included Opioids and Gabapentin. Adherence with treatment has been fair . Adverse Effects: None Interim Studies Obtained and Reviewed: Other - Injection with Dr. Noguera PED RED FLAGS YELLOW AND BLUE FLAGS No No-Significant Injury to Spine No-Use of Steroids for Prolonged Duration No-Loss of Bowel/Bladder Control, Genital/Anal Numbness No-Recent Use of Intravenous (IV) Drugs No-Difficulty Keeping Balance when Walking No-Progressive Weakness in Arms/Legs No-History of Any Type of Cancer YES-Unable to Find Position of Comfort No-Pain at Night that Disturbs Sleep YES-Pain at Night that Disturbs Sleep No-Diagnosed with Osteoporosis No-Unintentional Weight Loss or Gain YES-Neg Attitude; Back Pain is Disabling YES-Avoiding Activity (for Fear of Pain) No-Depression or Anxiety Disorders No-Social Problems No-Substance Use Disorder YES-Job Dissatisfaction YES-Financial Disincentives *PED (Patient Entered Data) osteoporosis flag will display for females 55 years or older and males 75 years or older. ACTIVE PROBLEM LIST Radiculopathy, Lumbar Region Lumbar Disc Herniation Degeneration of Lumbar Intervertebral Disc No past medical history on file. No past surgical history on file. Social History Marital status: Spouse name: Years of education: Number of children: Social History Main Topics Smoking status: Current Every Day Smoker Packs/day: 0.00 Years: 0.00 Types: Cigarettes Smokeless tobacco: Never Used No family history on file. ALLERGIES No Known Allergies CURRENT MEDICATIONS: gabapentin (NEURONTIN) 300 mg capsule amitriptyline (ELAVIL) 10 mg tablet Take 10 mg by mouth at bedtime as needed. amitriptyline (ELAVIL) 25 mg tablet Take 25 mg by mouth at bedtime as needed. amLODIPine (NORVASC) 5 mg tablet Take 5 mg by mouth once daily. PROAIR HFA 90 mcg/actuation inhaler TAKE 2 PUFFS BY MOUTH EVERY 4 HOURS NEEDED traMADol (ULTRAM) 50 mg tablet meloxicam (MOBIC) 15 mg tablet Take 1 tablet by mouth once daily. WITH FOOD REVIEW OF SYSTEMS: PAIN ASSESSMENT: See HPI. GENERAL: Denies fever, chills malaise and weight loss. HEENT: No recent change in vision or hearing. OBJECTIVE PHYSICAL EXAM: BP 133/93 Pulse 71 Imaging Ordered: None SIGNATURE: Natali Schneider PA-C PATIENT NAME: Denise Lantigua DATE: April 26, 2018 TIME: 10:30 AM Patient presents today for follow up. Pt admits no change early or after days following his JULIANA. Symptoms unchanged and pt interested in surgical consultation. Here w spouse. Prior encounter copied for review of history. LBP, LLE radicular pain X 2 years. LBP dominant - ache, sharp. LLE buttock into the left heel with n/t, intermittent. Pain worse with standing, walking and sitting. No relief in one position. 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 Taking Neurontin 300mg TID, Tramadol as needed (lately TID has pn mgmt) Pt has Elavil for migraines. Not taking NSAIDS. Prior laminectomy 11/2016 for back and left leg pain, HNP Dr. Valle. Pt had injections and therapy prior to surgical consideration. Pt went on to have pn mgmt - ablation lumbar spine 07/2017. Pt went back to see his surgeon and pn mgmt. Night sweats + no other constitutional symptoms noted. At times, left leg gives out on him with walking. Unable to do ADLs w/o pain. Told to have implant pump for his chronic pain so he decided to come to [facility] for another opinion Physical Exam: GENERAL APPEARANCE: WNWH, NAD NEURO - Alert and oriented, cooperative, answers questions appropriately SPEECH - No slurring noted. HEAD - Normal cephalic, Atraumatic EYES - Extra ocular movement intact, no conjunctivitis, no nystagmus. EARS - No drainage noted, pinna intact NOSE - No epistaxis noted THROAT - No thyromegaly, no gross lymphadenopathy GAIT - no significant new antalgic gait noted MOTOR - no new motor weakness in b/l quads. SENSORY - No new sensory complaints unless noted earlier in notes. ROS: Musculoskeltal exam as above. No bowel or bladder incontinence. Denies SOB Radiology: Reports reviewed. Lumbar spine MRI:outside imaging scanned. 02/14/2018: Impression: broad based disc bulge, left L5-S1 with left subarticular disc extrusion. causes mass effect upon the traversing left S1 nerve roots. Impression: see diagnosis Radiculopathy, lumbar region (primary encounter diagnosis) Lumbar disc herniation Degeneration of lumbar intervertebral disc Postoperative infection, subsequent encounter Imbalance Assessment: Plan: Discussed evidence based options including use of medications, non-surgical and surgical options. At present, pt would like to consider surgical care options. Consult placed. Pt has MRI 2018 and xrays outside system for upcoming apt per pt. He had limited gains with injection considerations. Pt and spouse today were requesting surgical consult order as he has failed conservative mgmt. Pt has pn mgmt for pn control. Follow up with primary physician for routine care, blood pressure evaluation, labwork, physical exam as scheduled and for any medical concerns. I have answered all the questions regarding patients current diagnosis, care and treatment plan to patients satisfaction during today's visit. MATI Rowley, PABenjiC Referring Provider: SELF [[id number]] Allergies As of Date: 04/26/2018 (No Known Allergies) Date Reviewed: 04/26/2018 Reviewed by: Natali Callejas) Jennie - Fully Assessed Reason for Visit: Pain, Back [855] Cmt: Follow up from injection with Dr. Noguera on 03/14 for L5 S1 Reason For Visit History Recorded Primary Visit Diagnosis:Radiculopathy , lumbar region [M54.16] Other Visit Diagnoses:Lumbar disc herniation [M51.26] Degeneration of lumbar intervertebral disc [M51.36] Postoperative infection, subsequent encounter [T81.4XXD] Imbalance [R26.89] Order(s):CONSULT TO SPINE SURGERY [[id number]] Order #: [id number]: 1 Prescriptions as of 04/26/2018 Sig: GABAPENTIN 300 MG CAPSULE AMITRIPTYLINE 10 MG TABLET Take 10 mg by mouth at bedtim* AMITRIPTYLINE 25 MG TABLET Take 25 mg by mouth at bedtim* AMLODIPINE 5 MG TABLET Take 5 mg by mouth once daily. PROAIR HFA 90 MCG/ACTUATION A* TAKE 2 PUFFS BY MOUTH EVERY 4* TRAMADOL 50 MG TABLET MELOXICAM 15 MG TABLET Take 1 tablet by mouth once d* Patient not taking: Reported on 04/26/2018 Problem List As Of Date 04/26/2018 Noted Resolved Radiculopathy, lumbar region [M54.16] INVALID FOR* More... Lumbar disc herniation [M51.26] INVALID FOR* More... Degeneration of lumbar intervertebral disc [M51*INVALID FOR* More... Encounter Status:Closed by NATALI SCHNEIDER on 04/26/[address] [facility] PROGRESSon 04-26-2018 Protein mass conc HNO ID: [id number] Author: Natali aCllejas) Jennie Service: (none) Author Type: Physician Bale Breaker Operator Type: Progress Notes Filed: 04/26/2018 12:12 PM Note Text: SPINE CARE PATH RADICULAR LEG PAIN: CHRONIC FOLLOW UP SUBJECTIVE HISTORY OF PRESENT ILLNESS: Reason for Visit: Follow up low back pain radiating down left leg Denise Lantigua is seen for 6 week follow up. He is feeling the same. The distribution of symptoms is unchanged. Pain is currently 8 out of 10. Interim treatment has included Opioids and Gabapentin. Adherence with treatment has been fair . Adverse Effects: None Interim Studies Obtained and Reviewed: Other - Injection with Dr. Noguera PED RED FLAGS YELLOW AND BLUE FLAGS No No-Significant Injury to Spine No-Use of Steroids for Prolonged Duration No-Loss of Bowel/Bladder Control, Genital/Anal Numbness No-Recent Use of Intravenous (IV) Drugs No-Difficulty Keeping Balance when Walking No-Progressive Weakness in Arms/Legs No-History of Any Type of Cancer YES-Unable to Find Position of Comfort No-Pain at Night that Disturbs Sleep YES-Pain at Night that Disturbs Sleep No-Diagnosed with Osteoporosis No-Unintentional Weight Loss or Gain YES-Neg Attitude; Back Pain is Disabling YES-Avoiding Activity (for Fear of Pain) No-Depression or Anxiety Disorders No-Social Problems No-Substance Use Disorder YES-Job Dissatisfaction YES-Financial Disincentives *PED (Patient Entered Data) osteoporosis flag will display for females 55 years or older and males 75 years or older. ACTIVE PROBLEM LIST Radiculopathy, Lumbar Region Lumbar Disc Herniation Degeneration of Lumbar Intervertebral Disc No past medical history on file. No past surgical history on file. Social History Marital status: Spouse name: Years of education: Number of children: Social History Main Topics Smoking status: Current Every Day Smoker Packs/day: 0.00 Years: 0.00 Types: Cigarettes Smokeless tobacco: Never Used No family history on file. ALLERGIES No Known Allergies CURRENT MEDICATIONS: gabapentin (NEURONTIN) 300 mg capsule amitriptyline (ELAVIL) 10 mg tablet Take 10 mg by mouth at bedtime as needed. amitriptyline (ELAVIL) 25 mg tablet Take 25 mg by mouth at bedtime as needed. amLODIPine (NORVASC) 5 mg tablet Take 5 mg by mouth once daily. PROAIR HFA 90 mcg/actuation inhaler TAKE 2 PUFFS BY MOUTH EVERY 4 HOURS NEEDED traMADol (ULTRAM) 50 mg tablet meloxicam (MOBIC) 15 mg tablet Take 1 tablet by mouth once daily. WITH FOOD REVIEW OF SYSTEMS: PAIN ASSESSMENT: See HPI. GENERAL: Denies fever, chills malaise and weight loss. HEENT: No recent change in vision or hearing. OBJECTIVE PHYSICAL EXAM: BP 133/93 Pulse 71 Imaging Ordered: None SIGNATURE: Natali Schneider PA-C PATIENT NAME: Denise Lantigua DATE: April 26, 2018 TIME: 10:30 AM Patient presents today for follow up. Pt admits no change early or after days following his JULIANA. Symptoms unchanged and pt interested in surgical consultation. Here w spouse. Prior encounter copied for review of history. LBP, LLE radicular pain X 2 years. LBP dominant - ache, sharp. LLE buttock into the left heel with n/t, intermittent. Pain worse with standing, walking and sitting. No relief in one position. 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 Taking Neurontin 300mg TID, Tramadol as needed (lately TID has pn mgmt) Pt has Elavil for migraines. Not taking NSAIDS. Prior laminectomy 11/2016 for back and left leg pain, HNP Dr. Valle. Pt had injections and therapy prior to surgical consideration. Pt went on to have pn mgmt - ablation lumbar spine 07/2017. Pt went back to see his surgeon and pn mgmt. Night sweats + no other constitutional symptoms noted. At times, left leg gives out on him with walking. Unable to do ADLs w/o pain. Told to have implant pump for his chronic pain so he decided to come to [facility] for another opinion Physical Exam: GENERAL APPEARANCE: WNWH, NAD NEURO - Alert and oriented, cooperative, answers questions appropriately SPEECH - No slurring noted. HEAD - Normal cephalic, Atraumatic EYES - Extra ocular movement intact, no conjunctivitis, no nystagmus. EARS - No drainage noted, pinna intact NOSE - No epistaxis noted THROAT - No thyromegaly, no gross lymphadenopathy GAIT - no significant new antalgic gait noted MOTOR - no new motor weakness in b/l quads. SENSORY - No new sensory complaints unless noted earlier in notes. ROS: Musculoskeltal exam as above. No bowel or bladder incontinence. Denies SOB Radiology: Reports reviewed. Lumbar spine MRI:outside imaging scanned. 02/14/2018: Impression: broad based disc bulge, left L5-S1 with left subarticular disc extrusion. causes mass effect upon the traversing left S1 nerve roots. Impression: see diagnosis Radiculopathy, lumbar region (primary encounter diagnosis) Lumbar disc herniation Degeneration of lumbar intervertebral disc Postoperative infection, subsequent encounter Imbalance Assessment: Plan: Discussed evidence based options including use of medications, non-surgical and surgical options. At present, pt would like to consider surgical care options. Consult placed. Pt has MRI 2018 and xrays outside system for upcoming apt per pt. He had limited gains with injection considerations. Pt and spouse today were requesting surgical consult order as he has failed conservative mgmt. Pt has pn mgmt for pn control. Follow up with primary physician for routine care, blood pressure evaluation, labwork, physical exam as scheduled and for any medical concerns. I have answered all the questions regarding patients current diagnosis, care and treatment plan to patients satisfaction during today's visit. MATI Rowley, DK [facility] HISTORY PHYSICALon HISTORY PHYSICAL HNO ID: [id number] Author: Karissa Noguera Service: OUTPATIENT IN BED Author Type: Physician Type: HANDP Filed: 03/14/2018 3:44 PM Note Text: PROCEDURAL SEDATION HISTORY AND PHYSICAL EXAM SERVICE DATE: 03/14/2018 SERVICE TIME: 2:43 PM SUBJECTIVE HPI: This is a 38 year old male who presents with chronic LBP secondary to lumbar radiculopathy with left leg weakness. PAST ANESTHESIA HISTORY: No history of adverse reactions with anesthesia. Past Medical history: Lumbar radiculopathy Past Surgical History: prior back surgery in 2017 No current facility-administered medications for this encounter. ALLERGIES No Known Allergies OBJECTIVE BP 136/86 Pulse 89 Temp 37.1 ?C (98.7 ?F) (Temporal Artery) Resp 18 Ht 175.3 cm (5' 9 ) Wt 71.7 kg (158 lb) BMI 23.33 kg/m? General: Pleasant, straightforward, WDWN individual. AIRWAY: Airway Visualization of Uvula: Yes Mouth opening greater than 2 fingerbreadths: Yes Neck Full Range of Motion: Yes Mental Status: Pleasant, direct, appropriate mood and affect Resp: CTA B Cardio/Vascular: RR without murmur, normal peripheral pulses, no cyanosis, no venous stasis changes Lymph: No LAD, no lymphedema Skin: No overlying skin change, ecchymosis, or erythema. Neuro: SILT in BLE and reflexes 2+ in BLE. Motor - 5/5 in distal BLE ASSESSMENT/PLAN ASA Class: Patient Active Hospital Problem List: Radiculopathy, lumbar region (02/21/2018) Lumbar disc herniation (02/21/2018) Degeneration of lumbar intervertebral disc (02/21/2018) Provisional Diagnosis/Treatment Plan: Left L5 and possible S1 transforaminal epidural steroid injection SEDATION GOAL: Moderate Ready to learn, no apparent learning barriers. Education provided on treatment plan according to patient's preferred learning style. Patient verbalizes understanding. ? Lolly Paredes MD PGY-3, PMANDR Patient seen and examined with attending, Dr. Noguera Seen with Lolly Paredes resident, note above is joint effort in all areas. I saw and evaluated the patient. I personally obtained the molina and critical portions of the history and physical exam. I reviewed the resident's documentation and discussed the patient. I agree with the resident's medical decision making as documented in the resident's note, with my additions. Looks like re-herniation with small sequestration adjacent to S1 nerve. Discussed possible 2level JULIANA L5 and S1 prn dye flow at L5 Dr. Karissa Noguera SIGNATURE: Karissa Noguera MD PATIENT NAME: Denise Lantigua DATE: 03/14/2018 TIME: 2:43 PM PAGER: [phone] [facility] OPERATIVE NOon 03-14-2018 OPERATIVE NO HNO ID: [id number] Author: Karissa Noguera Service: Physical Medicine AND Rehabilitation Author Type: Physician Type: Operative Report Filed: 03/14/2018 4:26 PM Note Text: OPERATIVE/PROCEDURE REPORT LOG ID: [id number] Surgery/Procedure Date: 03/14/2018 Incision/Procedure Start Time: 4:02 PM Incision Close/Procedure End Time: 4:20 PM Surgeon(s)/Proceduralis t(s) and Bale Breaker Operator(s): Surgeon(s) and Role: * Karissa Noguera - Primary * Lolly (Cherelle Paredes - Resident - Assisting * Cora Vallecillo MD - Resident - Assisting No Additional Staff Procedure(s): Left L5-S1 and S1 transforaminal epidural steroid injection. Anesthesia: Local Procedure Details: The risks, benefits and anticipated outcomes of the procedure, the risks and benefits of the alternatives to the procedure, and the roles and tasks of the personnel to be involved, were discussed with the patient, and the patient consents to the procedure and agrees to proceed. UNIVERSAL PROTOCOL / SAFETY CHECKLIST Sign in Communication: Completed Time Out: Team Confirms the Correct Patient, Correct Procedure, Correct Site and Site Marking, Correct Position (if applicable), Prep and Dry Time (if applicable). Time: 4:02 PM Affirmation of Time Out: YES Sign Out Discussion: Completed After having previously explained the potential risks and benefits of the procedure including but not limited to spinal headache, paralysis, and infection, informed written consent was obtained. HANDP reviewed from today or updated from <30days ago. He was then taken back to the procedure room, placed in a prone position and routine noninvasive monitors were applied. A timeout was performed verifying patient identification, site and allergies. The back was prepped and draped in a sterile fashion. Under direct fluoroscopic visualization, the Left L5 Transverse process was identified. The skin and subcutaneous tissues were anesthetized with 3cc of 2% lidocaine. Under direct fluoroscopic guidance, a Under direct fluoroscopic guidance, a 3 1/2 inch, 22 gauge spinal needle was directed to enter the lateral aspect of neural foramen. Needle placement was confirmed on both AP and lateral views prior to the contrast injection. Omnipaque 1 cc was injected, confirming epiradicular flow pattern and highlighting the L5 spinal nerve. The injection was completed with 1 cc of Depomedrol 40 mg/cc and 2 cc of 2% lidocaine, preservative free. Attention was then turned to the opposite Left S1 foramen, and the subcutaneous tissue anesthetized in the same fashion as above. Under direct fluoroscopic visualization, the S1 foramen was identified. The skin and subcutaneous tissues were anesthetized with 3cc of 2% lidocaine. Under direct fluoroscopic guidance, a Under direct fluoroscopic guidance, a 3 1/2 inch, 22 gauge spinal needle was directed to enter the lateral aspect of neural foramen. Needle placement was confirmed on both AP and lateral views prior to the contrast injection. Omnipaque 2 cc was injected, confirming epiradicular flow pattern and highlighting the S1 spinal nerve. The injection was completed with 1cc of Depomedrol 40 mg/cc and 2 cc of 2% lidocaine, preservative free. Typical lower extremity symptoms were produced during the injection at BOTH levels. Flow seems somewhat cut-off at L5 not spreading medially suggesting stenosis or fibrosis. S1 flow was excellent up to the L5 level. He tolerated the procedure well and without complications, and was taken back to the recovery area in good condition. Post procedure care, precautions and instructions given and he verbalized understanding. Pre-Op/Pre-Procedure Diagnosis: Lumbar disc herniation with radiculopathy Post-Op/Post-Procedure Diagnosis: same Estimated Blood Loss: none Specimens: None Implantable Devices: None Drains: None Complications: None Fellow performed the procedure and AT L5 and I part of S1 , under direct supervision and the remainder of the procedure was performed by the primary surgeon/proceduralist with assistance. I did the majority of the S1 level SIGNATURE: Karissa Noguera MD PATIENT NAME: Denise Lantigua DATE: March 14, 2018 TIME: 4:21 PM PAGER/CONTACT #: [phone] [facility] PT EDon 03-14-2018 PT ED HNO ID: [id number] Author: Ana Nam RN Service: (none) Author Type: Registered Nurse Type: Patient Education Filed: 03/14/2018 4:30 PM Note Text: POST OP LEARNING RESPONSE INSTRUCTION PROVIDED TO: Patient and family member METHOD OF INSTRUCTION: Individual instruction PATIENT / FAMILY RESPONSE: Verbalizes understanding of: INFECTION MANAGEMENT-Signs and symptoms of an infection and importance of contacting the physician PAIN MANAGEMENT-Effective strategies to manage pain in addition to pain medication POST-OPERATIVE INSTRUCTIONS-Correct actions to take to reduce postoperative complications POST-PROCEDURE INSTRUCTIONS-Correct actions to take to reduce post procedure complications PATIENT SAFETY PRINCIPLES SYMPTOM MANAGEMENT-Correct actions to take to manage symptoms associated with his/her disease/illness WORSENING CONDITION-Signs and symptoms of a worsening condition that warrant a call to the physician FOLLOW-UP PLAN: Follow up phone call. SUPPLEMENTAL MATERIAL: None REFERRAL (RECOMMENDATION): None Electronically Signed By: Ana Nam RN In Department: AMBULATORY SURGERY [facility] PT ED HNO ID: [id number] Author: May Enamorado) NUBIA Munoz Service: (none) Author Type: Registered Nurse Type: Patient Education Filed: 03/14/2018 2:39 PM Note Text: PRE OP LEARNING ASSESSMENT PROCEDURE/SURGERY: PAIN MANAGEMENT: lumbar epidural READINESS TO LEARN COGNITIVE ABILITY: Alert and oriented MOTIVATION TO LEARN: Interested FAMILY SUPPORT: High - Very involved in pt care PATIENT LEARNS BEST BY: Written Instruction - Hand-outs Verbal Instruction FACTORS AFFECTING LEARNING: None PHYSICAL LIMITATIONS AFFECTING LEARNING: None Electronically Signed By: May Munoz RN In Department: AMBULATORY SURGERY [facility] CNOVon 02-21-2018 CNOV Office Visit (SPMECO ) GRZEGORZDENISE Kirk ([id number]) 1980 M Date Time Provider Department 02/21/18 10:00 AM NATALI SCHNEIDER (ALBERTO) [facility] During your visit today, we recorded the following information about you: Temperature Pulse Respiration Blood pressure 99.8 degrees 79/minute 16/minute 132/90 Weight 70.5 kg Natali Schneider PA-C 03/07/2018 3:42 PM Signed SPINE CARE PATH LOW BACK PAIN: CHRONIC FOLLOW UP SUBJECTIVE HISTORY OF PRESENT ILLNESS: Reason for Visit: Denise Kirk Grzegorz is seen for 1 month follow up. He is feeling worse. The distribution of symptoms is changed - pain is now located in Generalized joint pain all over. Pain is currently 10 out of 10. Interim treatment has included NSAIDS for 3 Months or Greater (Mobic, Tramadol, Neurontin), Muscle relaxants, Analgesics, Physical therapy: Date(s) 2016 , Epidural blocks: Date(s) 2016 and Membrane Stabilizers. Adherence with treatment has been fair . Adverse Effects: None Interim studies Obtained and Reviewed: X-rays PED RED FLAGS YELLOW AND BLUE FLAGS No-Significant Injury to Spine No-Use of Steroids for Prolonged Duration No-Loss of Bowel/Bladder Control, Genital/Anal Numbness No-Recent Use of Intravenous (IV) Drugs No-Difficulty Keeping Balance when Walking No-Progressive Weakness in Arms/Legs No-History of Any Type of Cancer YES-Unable to Find Position of Comfort YES-Pain at Night that Disturbs Sleep No-Recent Elevated Temp with Unknown Cause No-Diagnosed with Osteoporosis No-Unintentional Weight Loss or Gain YES-Neg Attitude; Back Pain is Disabling YES-Avoiding Activity (for Fear of Pain) No-Depression or Anxiety Disorders No-Social Problems No-Substance Use Disorder No-Job Dissatisfaction No-Financial Disincentives *PED (Patient Entered Data) osteoporosis flag will display for females 55 years or older and males 75 years or older. There is no problem list on file for this patient. No past medical history on file. No past surgical history on file. Social History Marital status: Spouse name: Years of education: Number of children: Social History Main Topics Smoking status: Current Every Day Smoker Packs/day: 0.00 Years: 0.00 Types: Cigarettes Smokeless tobacco: Never Used No family history on file. ALLERGIES No Known Allergies CURRENT MEDICATIONS: amLODIPine (NORVASC) 5 mg tablet Take 5 mg by mouth once daily. gabapentin (NEURONTIN) 300 mg capsule PROAIR HFA 90 mcg/actuation inhaler TAKE 2 PUFFS BY MOUTH EVERY 4 HOURS NEEDED traMADol (ULTRAM) 50 mg tablet amitriptyline (ELAVIL) 10 mg tablet Take 10 mg by mouth at bedtime as needed. amitriptyline (ELAVIL) 25 mg tablet Take 25 mg by mouth at bedtime as needed. meloxicam (MOBIC) 15 mg tablet Take 1 tablet by mouth once daily. WITH FOOD REVIEW OF SYSTEMS: GENERAL: Denies fever, chills malaise and weight loss. HEENT: No recent change in vision or hearing. CARDIOVASCULAR: Denies chest pain, history of A-fib, valvular disease, or pacemaker/ICD. OBJECTIVE PHYSICAL EXAM: see encounter Imaging Ordered: None SIGNATURE: Natali Schneider PA-C PATIENT NAME: Denise Lantigua DATE: February 21, 2018 TIME: 10:14 AM Patient presents today for follow up. No improvement of symptoms. Pain worsening L>R into lower extremity. Interested in options/interventions. Pain meds include Elavil, Ultram, Neurontin and Mobic. Physical Exam: GENERAL APPEARANCE: WNWH, NAD NEURO - Alert and oriented, cooperative, answers questions appropriately SPEECH - No slurring noted. HEAD - Normal cephalic, Atraumatic EYES - Extra ocular movement intact, no conjunctivitis, no nystagmus. EARS - No drainage noted, pinna intact NOSE - No epistaxis noted THROAT - No thyromegaly, no gross lymphadenopathy GAIT - no significant new antalgic gait noted MOTOR - no new motor weakness in b/l quads. SENSORY - No new sensory complaints unless noted earlier in notes. ROS: Musculoskeltal exam as above. No bowel or bladder incontinence. Denies SOB Radiology: Reports reviewed. Lumbar spine MRI:outside imaging scanned. 02/14/2018: Impression: broad based disc bulge, left L5-S1 with left subarticular disc extrusion. causes mass effect upon the traversing left S1 nerve roots. Impression: see diagnosis Assessment: Radiculopathy, lumbar region (primary encounter diagnosis) Lumbar disc herniation Degeneration of lumbar intervertebral disc Plan: Discussed evidence based options including use of medications, non-surgical and surgical options. At present, pt would like to continue with non surgical care. consider consult. Interventional pain procedure JULIANA / Intra-articular hip injection / Sacroiliac joint / facets injection recommended. Verbal consent was obtained. Risks, benefits, alternatives and personnal were explained. Procedure was described in detail to patients satisfaction. Patient verblizes understanding. Patient is recommended to cancel the procedure if patient has any concerns. Patient to follow up with me at the earliest convenience. left L5-S1 TFESI. Follow up with primary physician for routine care, blood pressure evaluation, labwork, physical exam as scheduled and for any medical concerns. I have answered all the questions regarding patients current diagnosis, care and treatment plan to patients satisfaction during today's visit. MATI Rowley, PA-C Referring Provider: NATALI SCHNEIDER (ALBERTO) [[id number]] Allergies As of Date: 02/21/2018 (No Known Allergies) Date Reviewed: 02/21/2018 Reviewed by: Carmen (Kendra) KENDRA Astorga - Fully Assessed Reason for Visit: Follow Up [171] Primary Visit Diagnosis:Radiculopathy , lumbar region [M54.16] Other Visit Diagnoses:Lumbar disc herniation [M51.26] Degeneration of lumbar intervertebral disc [M51.36] Order(s):CONSULT TO SPINE INTERVENTION [[id number]] Order #: [id number]: 1 Prescriptions as of 02/21/2018 Sig: AMLODIPINE 5 MG TABLET Take 5 mg by mouth once daily. GABAPENTIN 300 MG CAPSULE PROAIR HFA 90 MCG/ACTUATION A* TAKE 2 PUFFS BY MOUTH EVERY 4* TRAMADOL 50 MG TABLET AMITRIPTYLINE 10 MG TABLET Take 10 mg by mouth at bedtim* AMITRIPTYLINE 25 MG TABLET Take 25 mg by mouth at bedtim* MELOXICAM 15 MG TABLET Take 1 tablet by mouth once d* Medication notes this encounter MELOXICAM 15 MG TABLET >> Carmen Astorga LPN, KENDRA 02/21/2018 10:22 AM >> CARMEN ASTORGA Tue February 21, 2018 10:22 AM Not taking Problem List As Of Date 02/21/2018 Noted Resolved Radiculopathy, lumbar region [M54.16] INVALID FOR* More... Lumbar disc herniation [M51.26] INVALID FOR* More... Degeneration of lumbar intervertebral disc [M51*INVALID FOR* More... Encounter Status:Closed by NATALI SCHNEIDER on 03/07/18 [facility] 02-21-2018 HOSP Patient:Denise Lantigua MRN: Height:5' 9 (1.753 m) Weight:158 lb (71.668 kg) Outpatient Medications as of 03/14/18: amLODIPine (NORVASC) 5 mg tablet gabapentin (NEURONTIN) 300 mg capsule PROAIR HFA 90 mcg/actuation inhaler traMADol (ULTRAM) 50 mg tablet amitriptyline (ELAVIL) 10 mg tablet amitriptyline (ELAVIL) 25 mg tablet meloxicam (MOBIC) 15 mg tablet Admission/Clinic Administered Medications as of 03/14/18: NaCl 0.9% iv infusion Problem List: Radiculopathy, lumbar region [M54.16] Lumbar disc herniation [M51.26] Degeneration of lumbar intervertebral disc [M51.36] Allergies: No Known Allergies Date Verified:03/14/18 Lab Values No results within the last 30 days for the following basenames: K,HCT Progress Notes ([facility]): Natali Schneider PA-C 03/07/2018 3:42 PM Signed SPINE CARE PATH LOW BACK PAIN: CHRONIC FOLLOW UP SUBJECTIVE HISTORY OF PRESENT ILLNESS: Reason for Visit: bruno Jeter Reagan Lantigua is seen for 1 month follow up. He is feeling worse. The distribution of symptoms is changed - pain is now located in Generalized joint pain all over. Pain is currently 10 out of 10. Interim treatment has included NSAIDS for 3 Months or Greater (Mobic, Tramadol, Neurontin), Muscle relaxants, Analgesics, Physical therapy: Date(s) 2017 , Epidural blocks: Date(s) 2017 and Membrane Stabilizers. Adherence with treatment has been fair . Adverse Effects: None Interim studies Obtained and Reviewed: X-rays PED RED FLAGS YELLOW AND BLUE FLAGS No-Significant Injury to Spine No-Use of Steroids for Prolonged Duration No-Loss of Bowel/Bladder Control, Genital/Anal Numbness No-Recent Use of Intravenous (IV) Drugs No-Difficulty Keeping Balance when Walking No-Progressive Weakness in Arms/Legs No-History of Any Type of Cancer YES-Unable to Find Position of Comfort YES-Pain at Night that Disturbs Sleep No-Recent Elevated Temp with Unknown Cause No-Diagnosed with Osteoporosis No-Unintentional Weight Loss or Gain YES-Neg Attitude; Back Pain is Disabling YES-Avoiding Activity (for Fear of Pain) No-Depression or Anxiety Disorders No-Social Problems No-Substance Use Disorder No-Job Dissatisfaction No-Financial Disincentives *PED (Patient Entered Data) osteoporosis flag will display for females 55 years or older and males 75 years or older. There is no problem list on file for this patient. No past medical history on file. No past surgical history on file. Social History Marital status: Spouse name: Years of education: Number of children: Social History Main Topics Smoking status: Current Every Day Smoker Packs/day: 0.00 Years: 0.00 Types: Cigarettes Smokeless tobacco: Never Used No family history on file. ALLERGIES No Known Allergies CURRENT MEDICATIONS: amLODIPine (NORVASC) 5 mg tablet Take 5 mg by mouth once daily. gabapentin (NEURONTIN) 300 mg capsule PROAIR HFA 90 mcg/actuation inhaler TAKE 2 PUFFS BY MOUTH EVERY 4 HOURS NEEDED traMADol (ULTRAM) 50 mg tablet amitriptyline (ELAVIL) 10 mg tablet Take 10 mg by mouth at bedtime as needed. amitriptyline (ELAVIL) 25 mg tablet Take 25 mg by mouth at bedtime as needed. meloxicam (MOBIC) 15 mg tablet Take 1 tablet by mouth once daily. WITH FOOD REVIEW OF SYSTEMS: GENERAL: Denies fever, chills malaise and weight loss. HEENT: No recent change in vision or hearing. CARDIOVASCULAR: Denies chest pain, history of A-fib, valvular disease, or pacemaker/ICD. OBJECTIVE PHYSICAL EXAM: see encounter Imaging Ordered: None SIGNATURE: Natali Schneider PA-C PATIENT NAME: Denise Lantigua DATE: February 21, 2018 TIME: 10:14 AM Patient presents today for follow up. No improvement of symptoms. Pain worsening L>R into lower extremity. Interested in options/interventions. Pain meds include Elavil, Ultram, Neurontin and Mobic. Physical Exam: GENERAL APPEARANCE: WNWH, NAD NEURO - Alert and oriented, cooperative, answers questions appropriately SPEECH - No slurring noted. HEAD - Normal cephalic, Atraumatic EYES - Extra ocular movement intact, no conjunctivitis, no nystagmus. EARS - No drainage noted, pinna intact NOSE - No epistaxis noted THROAT - No thyromegaly, no gross lymphadenopathy GAIT - no significant new antalgic gait noted MOTOR - no new motor weakness in b/l quads. SENSORY - No new sensory complaints unless noted earlier in notes. ROS: Musculoskeltal exam as above. No bowel or bladder incontinence. Denies SOB Radiology: Reports reviewed. Lumbar spine MRI:outside imaging scanned. 02/14/2018: Impression: broad based disc bulge, left L5-S1 with left subarticular disc extrusion. causes mass effect upon the traversing left S1 nerve roots. Impression: see diagnosis Assessment: Radiculopathy, lumbar region (primary encounter diagnosis) Lumbar disc herniation Degeneration of lumbar intervertebral disc Plan: Discussed evidence based options including use of medications, non-surgical and surgical options. At present, pt would like to continue with non surgical care. consider consult. Interventional pain procedure JULIANA / Intra-articular hip injection / Sacroiliac joint / facets injection recommended. Verbal consent was obtained. Risks, benefits, alternatives and personnal were explained. Procedure was described in detail to patients satisfaction. Patient verblizes understanding. Patient is recommended to cancel the procedure if patient has any concerns. Patient to follow up with me at the earliest convenience. left L5-S1 TFESI. Follow up with primary physician for routine care, blood pressure evaluation, labwork, physical exam as scheduled and for any medical concerns. I have answered all the questions regarding patients current diagnosis, care and treatment plan to patients satisfaction during today's visit. MATI Rowley, KD Previous Version [facility] PROGRESSon 02-21-2018 Protein mass conc HNO ID: [id number] Author: Natali Mayo (Alberto) Jennie Service: (none) Author Type: Physician Bale Breaker Operator Type: Progress Notes Filed: 03/07/2018 3:42 PM Note Text: SPINE CARE PATH LOW BACK PAIN: CHRONIC FOLLOW UP SUBJECTIVE HISTORY OF PRESENT ILLNESS: Reason for Visit: bruno Denise Lantigua is seen for 1 month follow up. He is feeling worse. The distribution of symptoms is changed - pain is now located in Generalized joint pain all over. Pain is currently 10 out of 10. Interim treatment has included NSAIDS for 3 Months or Greater (Mobic, Tramadol, Neurontin), Muscle relaxants, Analgesics, Physical therapy: Date(s) 2017 , Epidural blocks: Date(s) 2017 and Membrane Stabilizers. Adherence with treatment has been fair . Adverse Effects: None Interim studies Obtained and Reviewed: X-rays PED RED FLAGS YELLOW AND BLUE FLAGS No-Significant Injury to Spine No-Use of Steroids for Prolonged Duration No-Loss of Bowel/Bladder Control, Genital/Anal Numbness No-Recent Use of Intravenous (IV) Drugs No-Difficulty Keeping Balance when Walking No-Progressive Weakness in Arms/Legs No-History of Any Type of Cancer YES-Unable to Find Position of Comfort YES-Pain at Night that Disturbs Sleep No-Recent Elevated Temp with Unknown Cause No-Diagnosed with Osteoporosis No-Unintentional Weight Loss or Gain YES-Neg Attitude; Back Pain is Disabling YES-Avoiding Activity (for Fear of Pain) No-Depression or Anxiety Disorders No-Social Problems No-Substance Use Disorder No-Job Dissatisfaction No-Financial Disincentives *PED (Patient Entered Data) osteoporosis flag will display for females 55 years or older and males 75 years or older. There is no problem list on file for this patient. No past medical history on file. No past surgical history on file. Social History Marital status: Spouse name: Years of education: Number of children: Social History Main Topics Smoking status: Current Every Day Smoker Packs/day: 0.00 Years: 0.00 Types: Cigarettes Smokeless tobacco: Never Used No family history on file. ALLERGIES No Known Allergies CURRENT MEDICATIONS: amLODIPine (NORVASC) 5 mg tablet Take 5 mg by mouth once daily. gabapentin (NEURONTIN) 300 mg capsule PROAIR HFA 90 mcg/actuation inhaler TAKE 2 PUFFS BY MOUTH EVERY 4 HOURS NEEDED traMADol (ULTRAM) 50 mg tablet amitriptyline (ELAVIL) 10 mg tablet Take 10 mg by mouth at bedtime as needed. amitriptyline (ELAVIL) 25 mg tablet Take 25 mg by mouth at bedtime as needed. meloxicam (MOBIC) 15 mg tablet Take 1 tablet by mouth once daily. WITH FOOD REVIEW OF SYSTEMS: GENERAL: Denies fever, chills malaise and weight loss. HEENT: No recent change in vision or hearing. CARDIOVASCULAR: Denies chest pain, history of A-fib, valvular disease, or pacemaker/ICD. OBJECTIVE PHYSICAL EXAM: see encounter Imaging Ordered: None SIGNATURE: Natali Schneider PA-C PATIENT NAME: Denise Lantigua DATE: February 21, 2018 TIME: 10:14 AM Patient presents today for follow up. No improvement of symptoms. Pain worsening L>R into lower extremity. Interested in options/interventions. Pain meds include Elavil, Ultram, Neurontin and Mobic. Physical Exam: GENERAL APPEARANCE: WNWH, NAD NEURO - Alert and oriented, cooperative, answers questions appropriately SPEECH - No slurring noted. HEAD - Normal cephalic, Atraumatic EYES - Extra ocular movement intact, no conjunctivitis, no nystagmus. EARS - No drainage noted, pinna intact NOSE - No epistaxis noted THROAT - No thyromegaly, no gross lymphadenopathy GAIT - no significant new antalgic gait noted MOTOR - no new motor weakness in b/l quads. SENSORY - No new sensory complaints unless noted earlier in notes. ROS: Musculoskeltal exam as above. No bowel or bladder incontinence. Denies SOB Radiology: Reports reviewed. Lumbar spine MRI:outside imaging scanned. 02/14/2018: Impression: broad based disc bulge, left L5-S1 with left subarticular disc extrusion. causes mass effect upon the traversing left S1 nerve roots. Impression: see diagnosis Assessment: Radiculopathy, lumbar region (primary encounter diagnosis) Lumbar disc herniation Degeneration of lumbar intervertebral disc Plan: Discussed evidence based options including use of medications, non-surgical and surgical options. At present, pt would like to continue with non surgical care. consider consult. Interventional pain procedure JULIANA / Intra-articular hip injection / Sacroiliac joint / facets injection recommended. Verbal consent was obtained. Risks, benefits, alternatives and personnal were explained. Procedure was described in detail to patients satisfaction. Patient verblizes understanding. Patient is recommended to cancel the procedure if patient has any concerns. Patient to follow up with me at the earliest convenience. left L5-S1 TFESI. Follow up with primary physician for routine care, blood pressure evaluation, labwork, physical exam as scheduled and for any medical concerns. I have answered all the questions regarding patients current diagnosis, care and treatment plan to patients satisfaction during today's visit. MATI Rowley PA-C [facility] MR-MR lumbar spine wo con IM PORTon 02-14-2018 MR-MR lumbar spine wo con IMPORT Images were obtained outside of [facility] [id number] [facility] CNPNon 02-06-2018 CNPN Telephone (ORQ) DENISE LANTIGUA ([id number]) 1980 M Date Time Provider Department 02/06/18 NATALI SCHNEIDER (ALBERTO) ORQ During your visit today, we recorded the following information about you: Dai Wheatley PSR 02/06/2018 3:05 PM Signed Pt called and said that you wanted an MRI but it was denied. Pt can be reached @ [phone] Thanks Dai Wheatley PSR Natali Schneider PA-C 02/07/2018 10:42 AM Signed Peer to Peer completed, approved. # [id number] Please inform pt and have him go for his L spine MRI and then f/u. MATI Hollis PA-C [facility] [address] [place] [address], [address] [place] [address] Nathalia Jones Psr 02/07/2018 11:14 AM Signed Called patient and have him this message. He will call to schedule a follow up after he has his MRI. Thank you! Allergies As of Date: 02/06/2018 (No Known Allergies) Date Reviewed: 01/17/2018 Reviewed by: Natali Mayo (Alberto) Jennie - Fully Assessed Reason for Visit: Radio Imaging Study Comments [[id number]] Prescriptions as of 02/06/2018 Sig: AMLODIPINE 5 MG TABLET Take 5 mg by mouth once daily. GABAPENTIN 300 MG CAPSULE PROAIR HFA 90 MCG/ACTUATION A* TAKE 2 PUFFS BY MOUTH EVERY 4* TRAMADOL 50 MG TABLET AMITRIPTYLINE 10 MG TABLET Take 10 mg by mouth at bedtim* AMITRIPTYLINE 25 MG TABLET Take 25 mg by mouth at bedtim* MELOXICAM 15 MG TABLET Take 1 tablet by mouth once d* Problem List As Of Date: 02/06/2018 (None) Encounter Status:Closed by NATALI SCHNEIDER on 02/07/[address] [facility] C-Reactive Proteinon 018 CRP mass conc 1.7 mg/dL High <0.9 [facility] Comment on above: Performed By: #### C BCDIF, WSR, CRP #### [facility] [address] [place], [place] [id number] CBC and Differentialon 01-17 Abs Baso 0.13 k/uL High <0.11 [facility] Comment on above: Performed By: #### C BCDIF, WSR, CRP #### [facility] [address] [place], [place] [address] Abs [place] 0.52 k/uL Normal <0.87 [facility] Comment on above: Performed By: #### C BCDIF, WSR, CRP #### [facility] [address] [place], [place] [address] Abs Neut 5.47 k/uL Normal 1.45-7.50 [facility] Comment on above: Performed By: #### C BCDIF, WSR, CRP #### [facility] [address] [place], [place] [address] Absolute nRBC <0.01 Normal <0.01 [facility] Comment on above: Performed By: #### C BCDIF, WSR, CRP #### [place] [phone] Basophils/100 WBC (Bld) 1.5 % Normal [facility] Comment on above: Performed By: #### C BCDIF, WSR, CRP #### [place] [phone] DTYPE Auto Diff [facility] Comment on above: Performed By: #### C BCDIF, WSR, CRP #### [phone] Eosinophils #/vol (Bld) 0.10 10*3/uL Normal <0.46 [facility] Comment on above: Performed By: #### C BCDIF, WSR, CRP #### [place] [phone] Eosinophils/100 WBC (Bld) 1.2 % [facility] Comment on above: Performed By: #### C BCDIF, WSR, CRP #### [place] [phone] Erythrocyte distribution width Ratio (RBC) 13.9 % Normal 11.5-15.0 [facility] Comment on above: Performed By: #### C BCDIF, WSR, CRP #### [place] [phone] Hematocrit Volume Fraction (Bld) 42.8 % Normal 39.0-51.0 [facility] Comment on above: Performed By: #### C BCDIF, WSR, CRP #### [place] [phone] Hemoglobin mass conc (Bld) 14.2 g/dL Normal 13.0-17.0 [facility] Comment on above: Performed By: #### C BCDIF, WSR, CRP #### [place] [address] [place], [place] [address] Lymphocytes #/vol (Bld) 2.34 10*3/uL Normal 1.00-4.00 [facility] Comment on above: Performed By: #### C BCDIF, WSR, CRP #### [place] [address] Lymphocytes/100 WBC (Bld) 27.3 % [facility] Comment on above: Performed By: #### C BCDIF, WSR, CRP #### [place] [address] MCH Entitic mass (RBC) 28.2 pG Normal 26.0-34.0 [facility] Comment on above: Performed By: #### C BCDIF, WSR, CRP #### [place] [address] MCHC mass conc (RBC) 33.2 g/dL Normal 30.5-36.0 [facility] Comment on above: Performed By: #### C BCDIF, WSR, CRP #### [place] [address] MCV Entitic volume (RBC) 85.1 fL Normal 80.0-100.0 [facility] Comment on above: Performed By: #### C BCDIF, WSR, CRP #### [place] [id number] [place] [address] Monocytes/100 WBC (Bld) 6.1 % Normal [facility] Comment on above: Performed By: #### C BCDIF, WSR, CRP #### [place] [address] Neutrophils/100 WBC (Bld) 63.9 % Normal [facility] Comment on above: Performed By: #### C BCDIF, WSR, CRP #### [place] [id number] [place] [address] NRBCs 0.0 /[address] [facility] Comment on above: Performed By: #### C BCDITello WSR, CRP #### [place] [id number] [place] [address] Platelet mean volume Entitic volume (Bld) 9.7 fL Normal 9.0-12.7 [facility] Comment on above: Performed By: #### C BCDIF WSR, CRP #### [place] [address] Platelets #/vol (Bld) 397 10*3/uL Normal 150-400 [facility] Comment on above: Performed By: #### Eh BCDIF WSR, CRP #### [place] [address] RBC #/vol (Bld) 5.03 10*6/uL Normal 4.20-6.00 [facility] Comment on above: Performed By: #### Eh BCDIF WSR, CRP #### [place] [id number] WBC #/vol (Bld) 8.58 10*3/uL Normal 3.70-11.00 [facility] Comment on above: Performed By: #### Eh BCDIF WSR, CRP #### [place] [address] CNOVon 01-17-2018 CNOV Office Visit (SPMECO ) DENISE LANTIGUA ([id number]) 1980 Gael Date Time Provider Department 01/17/18 9:20 AM NATALI SCHNEIDER (PA) [facility]PM[facility] During your visit today, we recorded the following information about you: Temperature Pulse Blood pressure Weight 98.3 degrees 72/minute 126/87 71.7 kg Height 1.753 m Natali Schneider PA-C 01/17/2018 10:58 AM Signed [facility] Low Back Pain - Chronic (ANDgt; 12 weeks) Initial Exam SUBJECTIVE HISTORY OF PRESENT ILLNESS: Denise Lantigua is a 37 year old male who presents with a chief complaint of low back pain and is seen in consultation requested by Dr. Katie Salguero for an opinion regarding LBP/leg pain. My final recommendations will be communicated back to the requesting physician by way of shared medical record or letter via US mail. Other Issues Addressed at the Visit Today: None. Precipitating Event: 2 years ago, unaware related - LBP/LLE radicular pain surgery laminectomy 11/2016 in [facility] The pain has been present 2 years, surgery 2017 then ablation. His pain level is currently 8 on a scale of 0-10. The pain is located in the lower back bilaterally and described as aching and crushing. Pain Radiation: to the left foot/feet. Aggravating Factors: Flexion, Rotation, Standing, Walking Alleviating Factors: Medications Pain Ratio: Pain in the back is greater than in the leg. Prior Therapy: Analgesics, Opioids, Physical therapy: Date(s) 2017, Trigger point injections, Epidural blocks: Date(s) 2017 JULIANA, ablations and Membrane Stabilizers Litigation: No Workers' Compensation: No PED RED FLAGS YELLOW ANDamp; BLUE FLAGS No No No No No Yes No Yes Yes No No No-Significant Injury to Spine No-Use of Steroids for Prolonged Duration No-Loss of Bowel/Bladder Control, Genital/Anal Numbness No-Recent Use of Intravenous (IV) Drugs No-Difficulty Keeping Balance when Walking No-Progressive Weakness in Arms/Legs No-History of Any Type of Cancer YES-Unable to Find Position of Comfort YES-Pain at Night that Disturbs Sleep No-Recent Elevated Temp with Unknown Cause No-Diagnosed with Osteoporosis No-Unintentional Weight Loss or Gain YES-Neg Attitude; Back Pain is Disabling YES-Avoiding Activity (for Fear of Pain) No-Depression or Anxiety Disorders No-Social Problems YES-Substance Use Disorder No-Job Dissatisfaction No-Financial Disincentives *PED (Patient Entered Data) osteoporosis flag will display for females 55 years or older and males 75 years or older. There is no problem list on file for this patient. No past medical history on file. No past surgical history on file. Social History Marital status: Spouse name: Years of education: Number of children: Social History Main Topics Smoking status: Current Every Day Smoker Packs/day: 0.00 Years: 0.00 Types: Cigarettes Smokeless status: Never Used No family history on file. ALLERGIES No Known Allergies CURRENT MEDICATIONS: amitriptyline (ELAVIL) 10 mg tablet Take 10 mg by mouth at bedtime as needed. amitriptyline (ELAVIL) 25 mg tablet Take 25 mg by mouth at bedtime as needed. amLODIPine (NORVASC) 5 mg tablet Take 5 mg by mouth once daily. gabapentin (NEURONTIN) 300 mg capsule PROAIR HFA 90 mcg/actuation inhaler TAKE 2 PUFFS BY MOUTH EVERY 4 HOURS NEEDED traMADol (ULTRAM) 50 mg tablet REVIEW OF SYSTEMS: GENERAL: Chills HEENT: No recent change in vision or hearing. CARDIOVASCULAR: Denies chest pain, history of A-fib, valvular disease, or pacemaker/ICD. night sweats, intermittent OBJECTIVE: PHYSICAL EXAM BP 126/87 Pulse 72 Temp 36.8 ?C (98.3 ?F) (Oral) Ht 175.3 cm (5' 9ANDquot;) Wt 71.7 kg (158 lb) BMI 23.33 kg/m2 Imaging Ordered: For possible Lumbar Radiculopathy due to interventional planning. SIGNATURE: Natali Schneider PA-C PATIENT NAME: Denise Lantigua DATE: January 17, 2018 TIME: 9:40 AM HPI explored in detail with patient and edited as necessary. See notes for physical exam and treatment plan. CC - consult. Here w significant other. LBP, LLE radicular pain X 2 years. LBP dominant - ache, sharp. LLE buttock into the left heel with n/t, intermittent. Pain worse with standing, walking and sitting. No relief in one position. 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 Taking Neurontin 300mg TID, Tramadol as needed (lately TID has pn mgmt) Pt has Elavil for migraines. Not taking NSAIDS. Prior laminectomy 11/2016 for back and left leg pain, HNP Dr. Valle. Pt had injections and therapy prior to surgical consideration. Pt went on to have pn mgmt - ablation lumbar spine 07/2017. Pt went back to see his surgeon and pn mgmt. Night sweats + no other constitutional symptoms noted. At times, left leg gives out on him with walking. Unable to do ADLs w/o pain. Told to have implant pump for his chronic pain so he decided to come to [facility] for another opinion. PHYSICAL EXAM: GENERAL APPEARANCE - well nourished, well hydrated, no apparent distress SKIN - No skin breakdown noted over lumbar spine. HEAD - Normal cephalic, atraumatic EYES - Extra ocular movement intact, no conjunctivitis, no nystagmus. EARS - No drainage noted, pinna intact NOSE - No epistaxis noted THROAT - No thyromegaly, no gross lymphadenopathy LUNGS - CTA bilaterally CARDIAC - S1S2 VASCULAR - No evidence of peripheral edema, No significant varicosity ABDOMEN - no guarding noted NEURO - Alert and oriented, cooperative, answers questions appropriately GAIT - slight antalgic gait noted. Able to demonstrate heel and toe stand/walk. SENSORY EXAM - Grossly intact to superficial light touch bilaterally to lower limbs MOTOR STRENGTH DURING SEATED NEURO EXAM - No apparent weakness bilaterally in Hip flexors, knee extensors, plantar flexors, dorsiflexors and extensor hallux longus, except EHL 4+/5 on left. MUSCLE STRETCH REFLEXES - symmetric bilaterally in patella and achilles. Negative Gennaro's b/l ROM - Lumbar flexion and extension is within functional limits. Lateral bending to rt and lt is within funtional limits. HIP ROM - no significant loss in internal and external rotation b/l. KNEE ROM - No significant loss in terminal extension b/l. - adams b/l ANKLE ROM - no significant loss in plantar flexion and dorsiflexion b/l. MUSCLE MASS - No gross muscle atrophy or asymmetry noted bilaterally in lower limb. TENDERNESS - No significant reproduction of pain with palpation of sacroiliac joints or greater trochanter bilaterally. Pain with palpation over b/l L4-s1 paraspinous muscles. gluteal pain b/l LANDgt;R with palpation SHANE SIGNS - 1) Tenderness: semi Appropriate 2) Simulation/Axial Loading/ROT: Appropriate 3) Distraction: Seated SLR: Appropriate 4) Regional Disturbances: Appropriate 5) Overreaction: Negative. NEURO/PHYSICAL SIGNS: No seated straight leg raising test b/l. Patricks test was negative b/l. negative femoral stretch left sided OTHER NOTICEABLE FINDINGS: healed linear scar, laminectomy 2017 RADIOGRAPHY: Reports and films reviewed with patient. no imaging to review today Labs outside source 01/12/2018: to be scanned CRP - 59.9 H less than 8.0 norm ESR 50H Ref 0-15 no other labs or imaging brought w pt. IMPRESSION: See diagnosis. Radiculopathy, lumbar region (primary encounter diagnosis) Low back pain, non-specific Imbalance Postoperative infection, subsequent encounter PLAN: Discussed evidence based options including use of medications, non-surgical and surgical options. Educated about likely pathology and reviewed anatomy and prognosis. At present, pt would like to continue with non surgical care. Ordered lumbar spine and left knee xrays today. Lumbar spine MRI: - R/o HNP vs stenosis vs occult pathology Results will help us with possible planning for invasive options including fluoroscopic guided injections and surgical options. f/u with me for review of study and additional recommendations. additional therapy after review of labs and imaging at f/u. CBC w diff, ESR, CRP along with Consult to Rheumatology Neurontin consideration at nighttime rather than TID in the future OARRS website checked and validated. All prescriptions have been APPROPRIATELY filled. No suspicious activity was identified.- 01/17/2018 by Natali Schneider PA-C Mobic 15mg/qd # 30. Do not use any other NSAIDS or Booker-2 inhibitors. Discontinue medication immediately if any side effects noted. Recommended to have blood pressure re-evaluated in 4-6 weeks. Follow up with primary physician for routine care, blood pressure evaluation, labwork, physical exam as scheduled and for any medical concerns. I have answered all the questions regarding patients current diagnosis, care and treatment plan to patients satisfaction during today's visit. Patient verbalize understanding of current diagnosis and treatment plan. Follow up with me as scheduled Notes from todays visit will be forwarded to consulting/requesting physician. MATI Hollis PA-C [facility] Specialty/Spine Medicine [address] [place] [address], [address] [place] [address] Referring Provider: KATIE SALGUERO [[id number]] Allergies As of Date: 01/17/2018 (No Known Allergies) Date Reviewed: 01/17/2018 Reviewed by: Natali Callejas) Jennie - Fully Assessed Reason for Visit: New Patient [172] Low Back Pain [126] Cmt: [id number], crushing/sharp 05/19 Reason For Visit History Recorded Primary Visit Diagnosis:Radiculopathy , lumbar region [M54.16] Other Visit Diagnoses:Low back pain, non-specific [M54.5] Imbalance [R26.89] Postoperative infection, subsequent encounter [T81.4XXD] Order(s):XR LUMBAR GENERAL 3V AP/LAT/L5-S1 [9008530] Order #: [id number] FUTURE XR KNEE LIMITED 2V AP/LAT LT [[id number]] Order #: [id number] FUTURE MRI LUMBAR SPINE WO IVCON [[id number]] Order #: [id number] FUTURE SED RATE WESTERGREN [SQWSR] Order #: [id number] FUTURE C-REACTIVE PROTEIN (CRP) [SQCRP] Order #: [id number] FUTURE CBC + DIFF [SQCBCDIF] Order #: [id number] FUTURE meloxicam (MOBIC) 15 mg tabletTake 1 tablet by mouth once daily. WITH FOODDisp: 30 tabletRfl: 1 CONSULT TO RHEUM/IMMUN DISEASE [9039] Order #: [id number]: 1 Prescriptions as of 01/17/2018 Sig: AMITRIPTYLINE 10 MG TABLET Take 10 mg by mouth at bedtim* AMITRIPTYLINE 25 MG TABLET Take 25 mg by mouth at bedtim* AMLODIPINE 5 MG TABLET Take 5 mg by mouth once daily. GABAPENTIN 300 MG CAPSULE PROAIR HFA 90 MCG/ACTUATION A* TAKE 2 PUFFS BY MOUTH EVERY 4* TRAMADOL 50 MG TABLET MELOXICAM 15 MG TABLET Take 1 tablet by mouth once d* Medication notes this encounter AMLODIPINE 5 MG TABLET >> Krystian Eduardo MA 01/17/2018 9:23 AM >> KRYSTIAN EDUARDO MA Jan 17, 2018 9:23 AM Received from: External Pharmacy Received Sig: TAKE ONE TABLET BY MOUTH DAILY GABAPENTIN 300 MG CAPSULE >> Krystian Eduardo MA 01/17/2018 9:23 AM >> KRYSTIAN EDUARDO MA Jan 17, 2018 9:23 AM Received from: External Pharmacy PROAIR HFA 90 MCG/ACTUATION AEROSOL INHALER >> Krystian Eduardo MA 01/17/2018 9:23 AM >> KRYSTIAN EDUARDO MA Jan 17, 2018 9:23 AM Received from: External Pharmacy TRAMADOL 50 MG TABLET >> Krystian Eduardo MA 01/17/2018 9:23 AM >> KRYSTIAN EDUARDO MA Jan 17, 2018 9:23 AM Received from: External Pharmacy Problem List As Of Date: 01/17/2018 (None) Prescriptions ordered this encounter Disp Refills Start End MELOXICAM 15 MG TABLET 30 t* 1 01/17/2018 Route: ORAL Sig: Take 1 tablet by mouth once daily. WITH FOOD Disposition: Return in about 3 weeks (around 02/07/2018). Follow-up and Disposition History Recorded Encounter Status:Closed by NATALI SCHNEIDER on 01/17/[address] 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 Katie Salguero for an opinion regarding LBP/leg pain. My final recommendations will be communicated back to the requesting physician by way of shared medical record or letter via US mail. Other Issues Addressed at the Visit Today: None. Precipitating Event: 2 years ago, unaware related - LBP/LLE radicular pain surgery laminectomy 11/2016 in [facility] The pain has been present 2 years, surgery 2017 then ablation. His pain level is currently 8 on a scale of 0-10. The pain is located in the lower back bilaterally and described as aching and crushing. Pain Radiation: to the left foot/feet. Aggravating Factors: Flexion, Rotation, Standing, Walking Alleviating Factors: Medications Pain Ratio: Pain in the back is greater than in the leg. Prior Therapy: Analgesics, Opioids, Physical therapy: Date(s) 2016, Trigger point injections, Epidural blocks: Date(s) 2017 JULIANA, ablations and Membrane Stabilizers Litigation: No Workers' Compensation: No PED RED FLAGS YELLOW AND BLUE FLAGS No No No No No Yes No Yes Yes No No No-Significant Injury to Spine No-Use of Steroids for Prolonged Duration No-Loss of Bowel/Bladder Control, Genital/Anal Numbness No-Recent Use of Intravenous (IV) Drugs No-Difficulty Keeping Balance when Walking No-Progressive Weakness in Arms/Legs No-History of Any Type of Cancer YES-Unable to Find Position of Comfort YES-Pain at Night that Disturbs Sleep No-Recent Elevated Temp with Unknown Cause No-Diagnosed with Osteoporosis No-Unintentional Weight Loss or Gain YES-Neg Attitude; Back Pain is Disabling YES-Avoiding Activity (for Fear of Pain) No-Depression or Anxiety Disorders No-Social Problems YES-Substance Use Disorder No-Job Dissatisfaction No-Financial Disincentives *PED (Patient Entered Data) osteoporosis flag will display for females 55 years or older and males 75 years or older. There is no problem list on file for this patient. No past medical history on file. No past surgical history on file. Social History Marital status: Spouse name: Years of education: Number of children: Social History Main Topics Smoking status: Current Every Day Smoker Packs/day: 0.00 Years: 0.00 Types: Cigarettes Smokeless status: Never Used No family history on file. ALLERGIES No Known Allergies CURRENT MEDICATIONS: amitriptyline (ELAVIL) 10 mg tablet Take 10 mg by mouth at bedtime as needed. amitriptyline (ELAVIL) 25 mg tablet Take 25 mg by mouth at bedtime as needed. amLODIPine (NORVASC) 5 mg tablet Take 5 mg by mouth once daily. gabapentin (NEURONTIN) 300 mg capsule PROAIR HFA 90 mcg/actuation inhaler TAKE 2 PUFFS BY MOUTH EVERY 4 HOURS NEEDED traMADol (ULTRAM) 50 mg tablet REVIEW OF SYSTEMS: GENERAL: Chills HEENT: No recent change in vision or hearing. CARDIOVASCULAR: Denies chest pain, history of A-fib, valvular disease, or pacemaker/ICD. night sweats, intermittent OBJECTIVE: PHYSICAL EXAM BP 126/87 Pulse 72 Temp 36.8 ?C (98.3 ?F) (Oral) Ht 175.3 cm (5' 9 ) Wt 71.7 kg (158 lb) BMI 23.33 kg/m2 Imaging Ordered: For possible Lumbar Radiculopathy due to interventional planning. SIGNATURE: Natali Schneider PA-C PATIENT NAME: Denise Lantigua DATE: January 17, 2018 TIME: 9:40 AM HPI explored in detail with patient and edited as necessary. See notes for physical exam and treatment plan. CC - consult. Here w significant other. LBP, LLE radicular pain X 2 years. LBP dominant - ache, sharp. LLE buttock into the left heel with n/t, intermittent. Pain worse with standing, walking and sitting. No relief in one position. 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 Taking Neurontin 300mg TID, Tramadol as needed (lately [facility] has pn mgmt) Pt has Elavil for migraines. Not taking NSAIDS. Prior laminectomy 11/2016 for back and left leg pain, HNP Dr. [facility]. Pt had injections and therapy prior to surgical consideration. Pt went on to have pn mgmt - ablation lumbar spine 07/2017. Pt went back to see his surgeon and pn mgmt. Night sweats + no other constitutional symptoms noted. At times, left leg gives out on him with walking. Unable to do ADLs w/o pain. Told to have implant pump for his chronic pain so he decided to come to [facility] for another opinion. PHYSICAL EXAM: GENERAL APPEARANCE - well nourished, well hydrated, no apparent distress SKIN - No skin breakdown noted over lumbar spine. HEAD - Normal cephalic, atraumatic EYES - Extra ocular movement intact, no conjunctivitis, no nystagmus. EARS - No drainage noted, pinna intact NOSE - No epistaxis noted THROAT - No thyromegaly, no gross lymphadenopathy LUNGS - CTA bilaterally CARDIAC - S1S2 VASCULAR - No evidence of peripheral edema, No significant varicosity ABDOMEN - no guarding noted NEURO - Alert and oriented, cooperative, answers questions appropriately GAIT - slight antalgic gait noted. Able to demonstrate heel and toe stand/walk. SENSORY EXAM - Grossly intact to superficial light touch bilaterally to lower limbs MOTOR STRENGTH DURING SEATED NEURO EXAM - No apparent weakness bilaterally in Hip flexors, knee extensors, plantar flexors, dorsiflexors and extensor hallux longus, except EHL 4+/5 on left. MUSCLE STRETCH REFLEXES - symmetric bilaterally in patella and achilles. Negative Gennaro's b/l ROM - Lumbar flexion and extension is within functional limits. Lateral bending to rt and lt is within funtional limits. HIP ROM - no significant loss in internal and external rotation b/l. KNEE ROM - No significant loss in terminal extension b/l. - mc adams b/l ANKLE ROM - no significant loss in plantar flexion and dorsiflexion b/l. MUSCLE MASS - No gross muscle atrophy or asymmetry noted bilaterally in lower limb. TENDERNESS - No significant reproduction of pain with palpation of sacroiliac joints or greater trochanter bilaterally. Pain with palpation over b/l L4-s1 paraspinous muscles. gluteal pain b/l L>R with palpation SHANE SIGNS - 1) Tenderness: semi Appropriate 2) Simulation/Axial Loading/ROT: Appropriate 3) Distraction: Seated SLR: Appropriate 4) Regional Disturbances: Appropriate 5) Overreaction: Negative. NEURO/PHYSICAL SIGNS: No seated straight leg raising test b/l. Patricks test was negative b/l. negative femoral stretch left sided OTHER NOTICEABLE FINDINGS: healed linear scar, laminectomy 2017 RADIOGRAPHY: Reports and films reviewed with patient. no imaging to review today Labs outside source 01/12/2018: to be scanned CRP - 59.9 H less than 8.0 norm ESR 50H Ref 0-15 no other labs or imaging brought w pt. IMPRESSION: See diagnosis. Radiculopathy, lumbar region (primary encounter diagnosis) Low back pain, non-specific Imbalance Postoperative infection, subsequent encounter PLAN: Discussed evidence based options including use of medications, non-surgical and surgical options. Educated about likely pathology and reviewed anatomy and prognosis. At present, pt would like to continue with non surgical care. Ordered lumbar spine and left knee xrays today. Lumbar spine MRI: - R/o HNP vs stenosis vs occult pathology Results will help us with possible planning for invasive options including fluoroscopic guided injections and surgical options. f/u with me for review of study and additional recommendations. additional therapy after review of labs and imaging at f/u. CBC w diff, ESR, CRP along with Consult to Rheumatology Neurontin consideration at nighttime rather than TID in the future OARRS website checked and validated. All prescriptions have been APPROPRIATELY filled. No suspicious activity was identified.- 01/17/2018 by Natali Schneider PA-C Mobic 15mg/qd # 30. Do not use any other NSAIDS or Booker-2 inhibitors. Discontinue medication immediately if any side effects noted. Recommended to have blood pressure re-evaluated in 4-6 weeks. Follow up with primary physician for routine care, blood pressure evaluation, labwork, physical exam as scheduled and for any medical concerns. I have answered all the questions regarding patients current diagnosis, care and treatment plan to patients satisfaction during today's visit. Patient verbalize understanding of current diagnosis and treatment plan. Follow up with me as scheduled Notes from todays visit will be forwarded to consulting/requesting physician. MATI Hollis, [facility]ad[facility] [address], [address] [place] [address] [facility] Sed Rate Westergrenon 2017 Sed Rate Westergren 22 mm/hr High 0-15 [facility] Comment on above: Performed By: #### C BCDIF, WSR, CRP #### [facility] [address] [place] [address] XR KNEE 2V AP/LAT LTon 01-17 XR KNEE 2V AP/LAT LT * * *Final Report* * * DATE OF EXAM: Jan 17 2018 11:13AM CRX [id number] - XR KNEE 2V AP/LAT LT / PROCEDURE REASON: Radiculopathy, lumbar region * * * * Physician Interpretation * * * * HISTORY: Radiculopathy, lumbar region . CHRONIC LEFT KNEE PAIN- STARTED X1 YEAR AGO AFTER BACK SURGERY TECHNIQUE: XR KNEE 2V AP/LAT LT Laterality: LEFT Number of different views (projections): 2 COMPARISON: None RESULT: Joint spaces and alignment normal. No evidence of a fracture. No joint effusion. Minimal bony irregularity at the medial femoral condyle probably due to enthesopathic changes. Normal soft tissues. Incidental note is made of a bony spur in the lateral aspect of the right distal femur with an adjacent round metallic density which may be sequela of remote trauma or an exostosis. No other significant abnormality. IMPRESSION: NO ACUTE OSSEOUS ABNORMALITY OTHER FINDINGS DESCRIBED Electronics Teacher: ROBERTS CHAPELB Transcribe Date/Time: Jan 17 2018 11:21A Dictated by : MARLY WHEAT MD This examination was interpreted and the report reviewed and electronically signed by: MARLY WHEAT MD on Jan 17 2018 11:24AM EST [id number] Normal [facility] XR LUMBAR 3V AP/LAT/L5-S1on 01-17-2018 XR LUMBAR 3V AP/LAT/L5-S1 * * *Final Report* * * DATE OF EXAM: Jan 17 2018 11:13AM CRX [id number] - XR LUMBAR 3V AP/LAT/L5-S1 / PROCEDURE REASON: Radiculopathy, lumbar region * * * * Physician Interpretation * * * * HISTORY: Radiculopathy, lumbar region . LOWER BACK SURGERY X1 YEAR AGO TECHNIQUE: XR LUMBAR 3V AP/LAT/L5-S1 Laterality: NOT APPLICABLE Number of different views (projections): 3 COMPARISON: None RESULT: Five non-rib bearing lumbar type vertebral bodies. The lowest disc space is labeled L5-S1 for this examination. [id number] disc height narrowing at L5-S1. Vertebral body heights, disc heights and alignment otherwise normal. No fractures. Normal soft tissues. No other significant abnormality. IMPRESSION: DEGENERATIVE CHANGES AT L5-S1 Electronics Teacher: CHAKA Transcribe Date/Time: Jan 17 2018 11:20A Dictated by : MARLY WHEAT MD This examination was interpreted and the report reviewed and electronically signed by: MARLY WHEAT MD on Jan 17 2018 11:21AM EST [id number] Normal [facility] Vital Signs Date Time Vital Sign Value Performing Clinician Kate coombs 05-10-2024 13:29-0400 Diastolic blood pressure 111 mm[Hg] Ezequiel Vogel [facility] 05-10-2024 13:29-0400 Heart rate 68 /min Ezequiel Vogel [facility] 05-10-2024 13:29-0400 Mean blood pressure 120 mm[Hg] Ezequiel Vogel [facility] 05-10-2024 13:29-0400 Respiratory rate 16 /min [facility] [facility] 05-10-2024 13:29-0400 Systolic blood pressure 138 mm[Hg] Ezequiel Vogel [facility] 12-09-2023 14:00-0500 Hourly Rounding Ronobir MEAGAN [facility] 12-09-2023 14:00-0500 Mean blood pressure 118 mm[Hg] Ronobir MEAGAN [facility] 12-09-2023 14:00-0500 Promise to Return Ronobir MEAGAN [facility] 12-09-2023 13:00-0500 Hourly Rounding Ronobir MEAGAN [facility] 12-09-2023 13:00-0500 Promise to Return Ronobir MEAGAN [facility] 12-09-2023 12:19-0500 Heart rate 64 /min Ronobir MAEGAN [facility] 12-09-2023 12:19-0500 SaO2% (BldA) [Mass fraction] 96 % Ronobir MEAGAN [facility] 12-09-2023 12:18-0500 Diastolic blood pressure 63 mm[Hg] Ronobir MEAGAN [facility] 12-09-2023 12:18-0500 Mean blood pressure 74 mm[Hg] Ronobir MEAGAN [facility] 12-09-2023 12:18-0500 Systolic blood pressure 97 mm[Hg] Ronobir MEAGAN [facility] 12-09-2023 12:17-0500 Body temperature 97.88 [degF] Ronobir MEAGAN [facility] 12-09-2023 12:00-0500 Hourly Rounding Ronobir MEAGAN [facility] 12-09-2023 12:00-0500 Promise to Return Ronobir MEAGAN [facility] 12-09-2023 08:01-0500 Heart rate 65 /min Ronobir MEAGAN [facility] 12-09-2023 08:01-0500 SaO2% (BldA) [Mass fraction] 98 % Ronobir MEAGAN [facility] 12-09-2023 08:00-0500 Body temperature 97.52 [degF] Ronobir MEAGAN [facility] 12-09-2023 08:00-0500 Diastolic blood pressure 101 mm[Hg] Ronobir MEAGAN [facility] 12-09-2023 08:00-0500 Mean blood pressure 115 mm[Hg] Ronobir MEAGAN [facility] 12-09-2023 08:00-0500 Systolic blood pressure 142 mm[Hg] Ronobir MEAGAN [facility] 12-09-2023 07:37-0500 SaO2% (BldA) [Mass fraction] 98 % Ronobir MEAGAN [facility] 12-09-2023 04:52-0500 Body temperature 98.06 [degF] Ronobir MEAGAN [facility] 12-09-2023 04:52-0500 Diastolic blood pressure 94 mm[Hg] Ronobir MEAGAN [facility] 12-09-2023 04:52-0500 Heart rate 63 /min Ronobir MEAGAN [facility] 12-09-2023 04:52-0500 Systolic blood pressure 135 mm[Hg] Ronobir MEAGAN [facility] 12-09-2023 02:42-0500 Blood Pressure Location Ronobir MEAGAN [facility] 12-09-2023 02:42-0500 Heart rate 74 /min Ronobir MEAGAN [facility] 12-09-2023 02:42-0500 Respiratory rate 18 /min Ronobir MEAGAN [facility] 12-09-2023 01:30-0500 Mean blood pressure 111 mm[Hg] Ronobir MEAGAN [facility] 12-09-2023 01:30-0500 Respiratory rate 18 /min Ronobir MEAGAN [facility] 12-09-2023 01:26-0500 Mean blood pressure 114 mm[Hg] Ronobir MEAGAN [facility] 12-09-2023 01:26-0500 Respiratory rate 16 /min Ronobir MEAGAN [facility] 12-09-2023 00:56-0500 Heart rate 79 /min Ronobir MEAGAN [facility] 12-09-2023 00:56-0500 Respiratory rate 19 /min Ronobir MEAGAN [facility] 09-29-2023 15:07-0500 Diastolic blood pressure 82 mm[Hg] Denise Rebekah [facility] 09-29-2023 15:07-0500 Heart rate 84 /min Denise Welch [facility] 09-29-2023 15:07-0500 SaO2% (BldA) [Mass fraction] 94 % Denise Welch [facility] 09-29-2023 15:07-0500 Systolic blood pressure 112 mm[Hg] Denise Betoranchokaz [facility] 08-31-2023 10:06-0500 Hourly Rounding Durga Paster [facility] 08-31-2023 10:06-0500 Promise to Return Durga Paster [facility] 08-31-2023 09:36-0500 Hourly Rounding Durga Paster [facility] 08-31-2023 09:36-0500 Promise to Return Durga Paster [facility] 08-31-2023 09:31-0500 SaO2% (BldA) [Mass fraction] 96 % Durga Paster [facility] 08-31-2023 08:13-0500 Hourly Rounding Durga Paster [facility] 08-31-2023 08:13-0500 Promise to Return Durga Paster [facility] 08-31-2023 07:34-0500 Heart rate 80 /min Durga Paster [facility] 08-31-2023 07:34-0500 SaO2% (BldA) [Mass fraction] 96 % Durga Paster [facility] 08-31-2023 07:33-0500 Diastolic blood pressure 96 mm[Hg] Durga Paster [facility] 08-31-2023 07:33-0500 Mean blood pressure 110 mm[Hg] Durga Paster [facility] 08-31-2023 07:33-0500 Systolic blood pressure 138 mm[Hg] Durga Paster [facility] 08-31-2023 07:00-0500 Body temperature 98.24 [degF] Durga Paster [facility] 08-30-2023 23:43-0500 Body temperature 98.6 [degF] Durga Paster [facility] 08-30-2023 23:43-0500 Diastolic blood pressure 84 mm[Hg] Durga Paster [facility] 08-30-2023 23:43-0500 Heart rate 80 /min Durga Paster [facility] 08-30-2023 23:43-0500 Respiratory rate 16 /min Durga Paster [facility] 08-30-2023 23:43-0500 SaO2% (BldA) [Mass fraction] 96 % Durga Paster [facility] 08-30-2023 23:43-0500 Systolic blood pressure 118 mm[Hg] Durga Paster [facility] 08-30-2023 21:00-0500 Diastolic blood pressure 93 mm[Hg] Durga Paster [facility] 08-30-2023 21:00-0500 Heart rate 88 /min Durga Paster [facility] 08-30-2023 21:00-0500 Systolic blood pressure 134 mm[Hg] Durga Paster [facility] 08-30-2023 19:15-0500 Mean blood pressure 95 mm[Hg] Durga Paster [facility] 08-30-2023 15:35-0500 Body temperature 97.88 [degF] Durga Paster [facility] 08-30-2023 15:35-0500 Mean blood pressure 108 mm[Hg] Durga Paster [facility] 08-30-2023 11:00-0500 Body temperature 97.34 [degF] Durga Paster [facility] 08-30-2023 00:58-0500 Body temperature 97.52 [degF] Durga Paster [facility] 08-29-2023 22:15-0500 Mean blood pressure 132 mm[Hg] Durga Paster [facility] 08-29-2023 22:15-0500 Respiratory rate 15 /min Durga Paster [facility] 08-29-2023 21:26-0500 Mean blood pressure 136 mm[Hg] Durga Paster [facility] 08-29-2023 21:26-0500 Respiratory rate 8 /min Durga Paster [facility] 08-29-2023 21:00-0500 Respiratory rate 10 /min Durga Paster [facility] 08-29-2023 20:35-0500 Mean blood pressure 135 mm[Hg] Durga Paster [facility] 08-29-2023 18:52-0500 Blood Pressure Location Durga Paster [facility] 08-29-2023 18:52-0500 Heart rate 92 /min Durga Paster [facility] 08-29-2023 18:52-0500 Respiratory rate 18 /min Durga Paster [facility] 08-29-2023 16:26-0500 Heart rate 80 /min Durga Paster [facility] 08-29-2023 16:26-0500 Respiratory rate 24 /min Durga Paster [facility] 10-19-2022 15:20-0500 Body height 175.26 cm Geovany Valle Other [employer] [facility] [employer] Other 10-19-2022 15:20-0500 Body mass index (BMI) [Ratio] 24.3 kg/m2 Geovany Valle Other [employer] [facility] [employer] Other 10-19-2022 15:20-0500 Body weight 74.66 kg Geovany Valle Other [employer] Other 10-19-2022 15:20-0500 Diastolic blood pressure 112 mm[Hg] Geovany Valle Other [employer] Other 10-19-2022 15:20-0500 Systolic blood pressure 148 mm[Hg] Geovany Valle Other [place] [employer] Other 08-17-2022 09:04-0500 Diastolic blood pressure 101 mm[Hg] DO Katie Salguero Work Phone: [facility] 08-17-2022 09:04-0500 Heart rate 80 /min DO Katie Salguero Work Phone: [facility] 08-17-2022 09:04-0500 Respiratory rate 16 /min DO Katie Salguero Work Phone: [facility] 08-17-2022 09:04-0500 SaO2% (BldA) [Mass fraction] 97 % DO Katie Salguero Work Phone: [facility] 08-17-2022 09:04-0500 Systolic blood pressure 136 mm[Hg] DO Katie Salguero Work Phone: [facility] 08-17-2022 08:21-0500 Inhaled oxygen flow rate 3 L/min DO Katie Salguero Work Phone: [facility] 08-17-2022 06:46-0500 Body height 175.26 cm DO Katie Salguero Work Phone: [facility] 08-17-2022 06:46-0500 Body weight 72.57 kg DO Katie Salguero Work Phone: [facility] 05-18-2022 09:58-0400 Diastolic blood pressure 106 mm[Hg] Carmen Severino [facility] 05-18-2022 09:58-0400 Heart rate 77 /min Carmen Severino [facility] 05-18-2022 09:58-0400 Mean blood pressure 126 mm[Hg] Carmen Severino [facility] 05-18-2022 09:58-0400 Respiratory rate 12 /min Carmen Severino [facility] 05-18-2022 09:58-0400 Systolic blood pressure 165 mm[Hg] Carmen Severino [facility] 05-10-2022 10:00-0400 Body height 175.26 cm Shaquille Remy Other [employer] Other 05-10-2022 10:00-0400 Body mass index (BMI) [Ratio] 24.66 kg/m2 Shaquille Remy Other [facility] [employer] Other 05-10-2022 10:00-0400 Body weight 75.75 kg Shaquille Remy Other [facility] [employer] Other 03-09-2022 14:31-0400 Diastolic blood pressure 86 mm[Hg] Carmen Severino [facility] 03-09-2022 14:31-0400 Heart rate 87 /min Carmen Severino [facility] 03-09-2022 14:31-0400 Mean blood pressure 98 mm[Hg] Carmen Severino [facility] 03-09-2022 14:31-0400 Respiratory rate 14 /min Carmen Severino [facility] 03-09-2022 14:31-0400 Systolic blood pressure 122 mm[Hg] Carmen Severino [facility] 02-11-2022 14:40-0400 Blood Pressure Location Denise Welch [facility] 02-11-2022 14:40-0400 Diastolic blood pressure 78 mm[Hg] Denise Welch [facility] 02-11-2022 14:40-0400 Heart rate 83 /min Denise Welch [facility] 02-11-2022 14:40-0400 Respiratory rate 18 /min Denise Welch [facility] 02-11-2022 14:40-0400 SaO2% (BldA) [Mass fraction] 100 % Denise Welch [facility] 02-11-2022 14:40-0400 Systolic blood pressure 105 mm[Hg] Denise Welch [facility] 02-11-2022 10:45-0400 Body height 175.26 cm Shaquille Felter Other [employer] Other 02-11-2022 10:45-0400 Body mass index (BMI) [Ratio] 24.66 kg/m2 Shaquille Felter Other [employer] Other 02-11-2022 10:45-0400 Body weight 75.75 kg Shaquille Felter Other [employer] Other 01-12-2022 15:30-0400 Body height 175.26 cm Shaquille Felter Other [employer] Other 01-12-2022 15:30-0400 Body mass index (BMI) [Ratio] 25.1 kg/m2 Shaquille Felter Other [employer] Other 01-12-2022 15:30-0400 Body weight 77.11 kg Shaquille Felter Other [employer] Other 12-15-2021 14:30-0500 Body height 175.26 cm Shaquille Felter Other [employer] Other 12-15-2021 14:30-0500 Body mass index (BMI) [Ratio] 25.25 kg/m2 Shaquille Felter Other [employer] Other 12-15-2021 14:30-0500 Body weight 77.57 kg Shaquille Felter Other [employer] Other 11-17-2021 14:45-0500 Body height 175.26 cm Shaquille Felter Other [employer] Other 11-17-2021 14:45-0500 Body mass index (BMI) [Ratio] 25.25 kg/m2 Shaquille Felter Other [employer] Other 11-17-2021 14:45-0500 Body weight 77.57 kg Shaquille Felter Other [employer] Other 07-16-2021 09:15-0400 Body height 175.26 cm Shaquille Felter Other [employer] Other 07-16-2021 09:15-0400 Body mass index (BMI) [Ratio] 25.25 kg/m2 Shaquille Felter Other [employer] Other 07-16-2021 09:15-0400 Body weight 77.57 kg Shaquille Felter Other [employer] Other Encounters Encounter Date Encounter Type Care Provider Facility Start: 05-10-2024 End: 05-10-2024 ambulatory Ezequiel Vogel Facility[place] Start: 05-10-2024 End: 05-10-2024 Pain Management Ezequiel Vogel [facility] Start: 05-04-2024 End: 05-04-2024 ambulatory [facility] Start: 04-25-2024 End: 04-25-2024 ambulatory [facility] Start: 04-18-2024 End: 04-18-2024 ambulatory [facility] Work Phone: Start: 04-18-2024 End: 04-18-2024 Patient encounter procedure [facility] Work Phone: Start: 04-06-2024 ambulatory ISADORA TOWNSEND [facility] Start: 03-21-2024 End: 03-21-2024 ambulatory MABLE STEWARD Not Available Start: 03-19-2024 End: 03-19-2024 ambulatory [facility] Work Phone: Start: 03-19-2024 End: 03-19-2024 Patient encounter procedure [facility] Work Phone: Start: 02-16-2024 End: 02-16-2024 ambulatory [facility] Work Phone: Start: 02-16-2024 End: 02-16-2024 Patient encounter procedure [facility] Work Phone: Start: 02-08-2024 End: 02-08-2024 ambulatory KATIE SALGUERO Not Available Start: 02-01-2024 End: 02-01-2024 ambulatory KARISSA CAMPBELL Not Available Start: 01-27-2024 End: 01-27-2024 ambulatory Abhi Guerra Facility:[facility] Start: 01-27-2024 End: 01-27-2024 Patient encounter procedure Abhi Guerra [facility] Start: 01-26-2024 End: 01-26-2024 ambulatory YUERONG ROZ Not Available Start: 01-24-2024 End: 01-24-2024 ambulatory YUERONG ROZ Not Available Start: 2024 End: 2024 ambulatory YUERONG ROZ Not Available Start: 01-19-2024 End: 01-19-2024 ambulatory [facility] Work Phone: Start: 01-19-2024 End: 01-19-2024 Patient encounter procedure [facility] Work Phone: Start: 01-11-2024 End: 01-11-2024 ambulatory KATIE CLAROSCARO Not Available Start: 12-21-2023 End: 12-21-2023 Patient encounter procedure [facility] Work Phone: Start: 12-14-2023 End: 12-14-2023 ambulatory MABLE STEWARD Not Available Start: 12-14-2023 End: 12-14-2023 ambulatory KATIE Westbrook JACOB Not Available Start: 12-09-2023 End: 12-09-2023 ambulatory Dora RHODES Facility:[facility] Start: 12-09-2023 End: 12-09-2023 Emergency department patient visit Dora RHODES [facility] Start: 11-21-2023 End: 11-21-2023 ambulatory Shaquille Remy Other [employer] Other Start: 11-21-2023 Office outpatient vi sit 25 minutes Shaquille Remy [facility] [place] Start: 11-21-2023 Telephone encounter Shaquille Caraballo [facility] Start: 11-18-2023 End: 11-18-2023 ambulatory Denise Welch Facility:[facility] Start: 11-18-2023 End: 11-18-2023 Patient encounter procedure Denise Welch [facility] Start: 11-03-2023 End: 11-03-2023 ambulatory MD [facility]ran[facility] Start: 10-26-2023 ambulatory MD Trey Carranza [facility] Start: 10-20-2023 End: 10-20-2023 ambulatory Shaquille Remy Other [employer] Other Start: 01-11-2024 Office outpatient vi sit 25 minutes Shaquille Remy [facility] [place] Start: 10-20-2023 Telephone encounter Shaquille Caraballo [facility] Start: 09-29-2023 End: 09-29-2023 ambulatory Denise Welch Facility:[facility] Start: 09-29-2023 End: 09-29-2023 Patient encounter procedure Denise Welch [facility] Start: 09-22-2023 End: 09-22-2023 ambulatory Shaquille Remy Other [employer] Other Start: 09-22-2023 Office outpatient vi sit 25 minutes Shaquille Remy [facility] [place] Start: 09-22-2023 Telephone encounter Shaquille Caraballo [facility] Start: 09-06-2023 End: 09-06-2023 ambulatory KATIE SALGUERO Not Available Start: 08-29-2023 End: 08-31-2023 Evaluation and management of inpatient Durga Thompson Facility:[facility] Start: 08-29-2023 End: 08-31-2023 Evaluation and management of inpatient Durga Thompson [facility] Start: 08-25-2023 End: 08-25-2023 ambulatory Shaquille Remy Other [employer] Other Start: 08-25-2023 Office outpatient vi sit 25 minutes Shaquille Remy [facility] [place] Start: 08-25-2023 Telephone encounter Shaquille DA SILVA [facility] [place] Start: 07-28-2023 End: 07-28-2023 ambulatory Shaquille Remy Other [employer] Other Start: 07-28-2023 Office outpatient vi sit 25 minutes Shaquille Remy [facility] [place] Start: 07-28-2023 Telephone encounter Shaquille DA SILVA [facility] [place] Start: 06-30-2023 End: 06-30-2023 ambulatory Shaquille Remy Other [employer] Other Start: 06-30-2023 Office outpatient vi sit 25 minutes Shaquille Remy [facility] [place] Start: 06-30-2023 Telephone encounter Shaquille Remy [facility] [place] Start: 05-31-2023 End: 05-31-2023 Patient encounter procedure DO Katie Salguero Work Phone: [facility] Start: 05-31-2023 End: 05-31-2023 ambulatory Katie Salguero [facility] Work Phone: Start: 05-31-2023 Office outpatient vi sit 25 minutes Shaquille Remy [facility] [place] Start: 05-31-2023 Telephone encounter Shaquille Remy [facility] [place] Start: 04-11-2023 End: 04-11-2023 ambulatory Shaquille Remy Other [employer] Other Start: 04-11-2023 Telephone encounter Shaquille Remy [facility] [place] Start: 04-05-2023 End: 04-05-2023 ambulatory Shaquille Remy Other [employer] Other Start: 04-05-2023 Telephone encounter Shaquille Remy [facility] [place] Start: 03-31-2023 End: 03-31-2023 ambulatory Shaquille Remy Other [employer] Other Start: 03-31-2023 Office outpatient vi sit 25 minutes Shaquille Remy [facility] [place] Start: 03-31-2023 Telephone encounter Shaquille Duarteer [facility] Start: 02-03-2023 End: 02-03-2023 ambulatory Shaquille Remy Other [employer] Other Start: 02-03-2023 Telephone encounter Shaquille Duarteer [facility] Start: 01-25-2023 End: 01-25-2023 ambulatory Thien POWER Facility:[id number] Start: 01-19-2023 ambulatory Thien TOMASZ POWER Facility:[id number] Start: 01-19-2023 Encounter for preprocedural laboratory examination Thien POWER [facility] Start: 01-04-2023 End: 01-04-2023 ambulatory Shaquille Remy Other [employer] Other Start: 01-04-2023 Office outpatient vi sit 25 minutes Shaquille Duarteer [facility] [place] Start: 01-04-2023 Telephone encounter Shaquille Remy [facility] Start: 12-28-2022 End: 12-28-[address] DOCTOR HATCH Facility:[id number] Start: 12-14-2022 End: 12-14-2022 ambulatory Thien TOLBERT RADHA POWER Facility:[id number] Start: 12-08-2022 End: 12-08-2022 ambulatory Shaquille Remy Other [employer] Other Start: 12-08-2022 Telephone encounter Shaquille Remy [facility] [place] Start: 12-07-2022 End: 12-07-2022 ambulatory Shaquille Remy Other [employer] Other Start: 12-07-2022 Office outpatient vi sit 25 minutes Shaquille Felter [facility] [place] Start: 12-07-2022 Telephone encounter Shaquille DA SILVA [facility] [place] Start: 12-03-[address] Katie Salguero Facility:[id number] Start: 11-09-2022 End: 11-09-2022 ambulatory Shaquille Remy Other [employer] Other Start: 11-09-2022 Office outpatient vi sit 25 minutes Shaquille Duarteer [facility] [place] Start: 11-09-2022 Telephone encounter Shaquille Duarteer [facility] Start: 10-20-2022 End: 10-20-2022 ambulatory Geovany Valle Other [employer] Other Start: 10-20-2022 Telephone encounter Geovany Valle [facility] Start: 10-19-2022 End: 10-19-2022 ambulatory Geovany Valle Other [employer] Other Start: 10-19-2022 Office outpatient ne w 30 minutes Geovany Valle [facility] Start: 10-07-2022 End: 10-07-2022 ambulatory Shaquille Remy Other [employer] Other Start: 10-07-2022 Telephone encounter Shaquille DA SILVA [facility] [place] Start: 09-09-2022 End: 09-09-2022 ambulatory Shaquille Remy Other [employer] Other Start: 09-09-2022 Office outpatient vi sit 25 minutes Shaquille Remy [facility] [place] Start: 09-09-2022 Telephone encounter Shaquille DA SILVA G [facility] Start: 08-20-2022 End: 08-20-2022 ambulatory Shaquille Remy Other [employer] Other Start: 08-20-2022 Follow-up encounter Shaquille Caraballo [facility] [place] Start: 08-17-2022 (Procedure) Short Shaquille Remy [facility] Start: 08-17-2022 End: 08-17-2022 Admission to same day surgery center DO Katie Salguero Work Phone: [facility] Start: 08-17-2022 End: 08-17-2022 ambulatory DO Katie Salguero Work Phone: [facility] Work Phone: Start: 08-05-2022 End: 08-05-2022 ambulatory Shaquille Remy Other [employer] Other Start: 08-05-2022 Office outpatient vi sit 25 minutes Shaquille Remy [facility] [place] Start: 08-05-2022 Telephone encounter Shaquille Felter [facility] [place] Start: 07-08-2022 End: 07-08-2022 ambulatory Shaquille Felter Other [employer] Other Start: 07-08-2022 Office outpatient vi sit 25 minutes Shaquille Felter [facility] [place] Start: 06-10-2022 End: 06-10-2022 ambulatory Shaquille Felter Other [employer] Other Start: 06-10-2022 Office outpatient vi sit 25 minutes Shaquille Felter [facility] [place] Start: 05-18-2022 End: 05-18-2022 Patient encounter procedure Carmen Severino [facility] Start: 05-18-2022 End: 05-18-2022 Patient encounter procedure Carmen Severino [facility] Start: 05-10-2022 End: 05-10-2022 ambulatory Shaquille Felter Other [employer] Other Start: 05-10-2022 Office outpatient vi sit 25 minutes Shaquille Felter [facility] [place] Start: 04-01-2022 End: 04-01-2022 ambulatory Shaquille Felter Other [employer] Other Start: 04-01-2022 Office outpatient vi sit 25 minutes Shaquille Felter [facility] [place] Start: 03-11-2022 End: 03-11-2022 ambulatory Shaquille Felter Other [employer] Other Start: 03-11-2022 Office outpatient vi sit 25 minutes Shaquille Felter [facility] [place] Start: 03-09-2022 End: 03-09-2022 Pain Management Carmen Severino [facility] Start: 02-11-2022 End: 08-13-2022 Pre-admission assessment Denise TalAnh Marybethkaz [facility] Start: 02-11-2022 End: 02-11-2022 Patient encounter procedure Denise Welch [facility] Start: 02-11-2022 End: 02-11-2022 ambulatory Shaquille Duarteer Other [employer] Other Start: 02-11-2022 Office outpatient vi sit 25 minutes Shaquille Felter [facility] [place] Start: 01-15-2022 End: 01-15-2022 ambulatory Shaquille Duarteer Other [employer] Other Start: 01-15-2022 Telephone encounter Shaquille Caraballo [facility] Start: 01-12-2022 End: 01-12-2022 ambulatory Shaquille Remy Other [employer] Other Start: 01-12-2022 Office outpatient vi sit 25 minutes Shaquille Felter [facility] [place] Start: 12-15-2021 End: 12-15-2021 ambulatory Shaquille Duarteer Other [employer] Other Start: 12-15-2021 Office outpatient vi sit 25 minutes Shaquille Felter [facility] [place] Start: 11-17-2021 End: 11-17-2021 ambulatory Shaquille Duarteer Other [employer] Other Start: 11-17-2021 Office outpatient vi sit 25 minutes Shaquille Felter [facility] [place] Start: 10-15-2021 End: 10-15-2021 ambulatory Shaquille Duarteer Other [employer] Other Start: 10-15-2021 Office outpatient vi sit 25 minutes Shaquille Felter [facility] [place] Start: 09-14-2021 End: 09-14-2021 ambulatory Shaquille Duarteer Other [employer] Other Start: 09-14-2021 Office outpatient vi sit 25 minutes Shaquille Duarteer [facility] [place] Start: 09-07-2021 (Procedure) Short Shaquille Remy [facility] Start: 09-07-2021 End: 09-07-2021 ambulatory Shaquille Duarteer Other [employer] Other Start: 08-18-2021 End: 08-18-2021 ambulatory Shaquille Duarteer Other [employer] Other Start: 08-18-2021 Office outpatient vi sit 25 minutes Shaquille Duarteer [facility] [place] Start: 07-16-2021 Office outpatient vi sit 25 minutes Shaquille Duarteer [facility] [place] Start: 02-22-2020 Patient encounter status Shaquille Remy Other [facility] Other Start: 11-07-2018 End: 11-07-2018 Patient encounter procedure LAUREL LITTLEJOHN) [facility] Start: 07-07-2018 End: 07-07-2018 Patient encounter procedure LAUREL LITTLEJOHN) [facility] Start: 06-14-2018 End: 06-14-2018 Patient encounter procedure LAUREL RODNEY [facility] Start: 06-08-2018 Encounter for other preprocedural examination NATALI SCHNEIDER [facility] Start: 06-08-2018 End: 06-09-2018 Patient encounter procedure LAUREL RODNEY [facility] Start: 05-17-2018 End: 05-22-2018 Patient encounter procedure LAUREL LITTLEJOHN) [facility] Start: 04-26-2018 End: 04-27-2018 Patient encounter procedure NATALI SCHNEIDER ([place]) [facility] Start: 03-14-2018 End: 03-14-2018 Patient encounter procedure KARISSA NOGUERA [facility] Start: 02-21-2018 End: 03-08-2018 Patient encounter procedure NATALI Mayo (ALBERTO) JENNIE [facility] Start: 01-17-2018 Patient encounter procedure NATALI Mayo (ALBERTO) JENNIE [facility] Start: 01-17-2018 End: 01-18-2018 Patient encounter [facility] Procedures Date Procedure Procedure Detail Performing Clinician Start: 08-29-2023 Percutaneous coronar y intervention Durga Thompson Start: 05-31-2023 Radiography of thora cic spine DO Katie Salguero Work Phone: Start: 08-17-2022 Implantation of elec tronic stimulator of spine DO Katie Salguero Work Phone: Start: 06-08-2018 Antibody screen DEVANTEUTE HEATHER LOERA Comment on above: Performed By: #### T [id number] #### [place] [address] Start: 10-10-2017 Discectomy of spine Shivam otcasi Severino Comment on above: Dr. Kelly Mendoza Start: 11-10-2016 Discectomy of spine Shivam otcasi Severino Start: 10-10-2015 Discectomy of spine Shivam otcasi Severino Comment on above: L5-S1 L5-S1 Implantation of perm anent spinal cord stimulator Ezequiel Vogel Comment on above: 2022 Plan of Treatment Date Care Activity Detail Author Start: 04-18-2024 Patient referral [facility] Work Phone: Start: 03-19-2024 Patient referral [facility] Work Phone: Start: 08-17-2022 [facility] Patient Education Felter Non Trish [employer] [facility] Work Phone: Patient referral [facility] Work Phone: Immunizations Immunization Date Immunization Notes Care Provider Jose jackman 09-28-2017 Depo-Medrol [address] Other [facility] Other 05-12-2016 Kenalog -40 mg Shaquille Felter Other [facility] Other 08-05-2015 Depo-Medrol [address] Other [facility] Other 06-12-2015 Depo-Medrol [address] Other [facility] Other 04-22-2015 Depo-Medrol [address] Other [facility] Other 01-15-2015 Depo-Medrol [address] Other [facility] Other Payers Date Payer Category Payer Private Health Insurance [id number] 2022 Self-pay [id number] 1978 Unknown [id number] 2..840.1.248877.3.579.2.593 1978 Unknown [id number] .840.1.355216.3.579.2.1068 1978 Unknown [id number] 2..840.1.322551.3.579.2.1068 1978 Unknown [id number] 2..840.1.211932.3.579.2.1068 1978 Unknown [id number] 2.16.840.1.449270.3.579.2.1068 1978 Unknown [id number] 2.16.840.1.783261.3.579.2.1258 1978 Unknown [id number] 2.16.840.1.508026.3.579.2.1258 1978 Unknown [id number] 2.16.840.1.587610.3.579.2.1258 1978 Unknown [id number] 2.16.840.1.434195.3.579.2.1258 1978 Unknown [id number] 2.16.840.1.719682.3.579.2.1258 1978 Unknown [id number] 2.16.840.1.011360.3.579.2.1258 1978 Unknown [id number] 2.16.840.1.397048.3.579.2.1258 1978 Unknown [id number] 2.16.840.1.301288.3.579.2.1258 1978 Unknown [id number] 2.16.840.1.581109.3.579.2.1258 1978 Unknown [id number] 2.16.840.1.794717.3.579.2.1258 1978 Unknown [id number] 2.16.840.1.905416.3.579.2 1978 Unknown [id number] 2.16.840.1.290397.3.579.2 1978 Unknown [id number] 2.16.840.1.276623.3.579.2 1978 Unknown [id number] 2.16.840.1.086836.3.579.2 1978 Unknown [id number] 2.16.840.1.144093.3.579.2 1978 Unknown [id number] 2.16.840.1.882879.3.579.2 1978 Unknown [id number] 2.16.840.1.276940.3.579.2. 1959 Unknown [id number] 2.16.840.1.681166.19 Private Health Insurance [facility] [id number] Unknown Ricarda BC/BS [id number] Unknown [id number] 2.16.840.1.197545.3.579.2.531 Unknown [id number] 2.16.840.1.327556.3.579.2.531 Social History Date Type Detail Facility Tobacco smoking status Unknown i f ever smoked [facility] [employer] Other Sex Assigned At Male [facility] [employer] Other Start: 03-09-2022 End: 05-10-2024 Light tobacco smoker (finding) [facility] Start: 03-30-2021 End: 02-16-2024 Tobacco smoking status NHIS Smoker (finding) [facility] Start: 1980 Sex Assigned At Male F [facility] Medical Equipment Procedure Code Equipment Code Equipment Origin al Text Equipment Identifier Dates Implantation, spinal cord stimulator, stage 1 Analgesic spinal cord electrical stimulation system [id number] FDA Start: 08-17-2022 PCI Unknown 08/11 Non Biological Unknown FDA Start: 08-29-2023 PCI Unknown 08/11 Non Biological Unknown FDA Start: 08-29-2023 PCI Unknown 08/11 Non Biological Unknown FDA Start: 08-29-2023 PCI Unknown 08/11 Non Biological Unknown FDA Start: 08-29-2023 PCI Unknown 08/11 Non Biological Unknown FDA Start: 08-29-2023 PCI Unknown 08/11 Non Biological Unknown FDA Start: 08-29-2023 Goals Date Patient Goal Desired Activity /State Functional Status Date Assessment Result Facility 05-10-2024 Functional Status N/A [facility] 12-09-2023 Functional Status N/A [facility] 12-09-2023 Functional Status [facility] 09-29-2023 Functional Status N/A [facility] 08-29-2023 Functional Status No [facility] 08-29-2023 Functional Status [facility] 05-18-2022 Functional Status N/A [facility] Clinical Notes 11-25-2016 to 05-10-2024 Note Date & Type Note Facility 05-10-2024 Note Consultation Note Patient is presenting with complaints of back pain and right-sided radicular symptoms. Has a longstanding history of low back pain over the past several years and he has had significant abortive interventions over the years inclusive of lumbar medial branch blocks and radiofrequency ablations, epidural steroid injections, spinal cord stimulator, multiple spine surgeries that appear to be discectomies and possible spinal fusion. We do not have any images at present to review we discussed obtaining these from his previous treating physicians. At present he rates his low back pain as a 6/10 but can be a 10/10 in severity. He can only stand for an hour before you sit down take a rest. He states that his pain is significant debilitating and he has tried several medications inclusive of NSAIDs, acetaminophen, gabapentin and Percocet. He feels the gabapentin and Percocet are the only things have been effective at helping his pain somewhat. He has not tried many other medications of other classes such as tricyclic antidepressants or SNRIs. We discussed working on nonnarcotic based interventions at this time. NIHARIKA Score: 46% PHQ-2: 3 Patient denies any symptoms of progressively worsening upper/lower extremity weakness, progressively worsening gait abnormality, new onset bowel/bladder incontinence/ urinary retention, or saddle anesthesia. No new or worsening symptoms of fever, chills, night sweats. 14 Point Review of systems negative unless otherwise noted. General: No acute distress. Patient appears well-nourished. HEENT: Head is normocephalic and external ears are normal in appearance. Cardiovascular: No signs of poor perfusion and no peripheral edema Pulmonary: Nonlabored breathing, symmetric chest movement. GI: Abdomen nondistended Integumentary: No lesions Neurologic: Alert, oriented x3. 5/5 strength grossly in the bilateral upper extremities. Sensation intact to light touch in the bilateral upper extremities. 5/5 strength grossly in the bilateral lower extremities. Sensation intact to light touch in the bilateral lower extremities. MSK/Special Testing: Negative Gennaro's sign bilaterally, seated straight leg raise test reproduce mild radicular symptoms on the right. History, physical examination, and personal review of pertinent imaging results indicate a diagnosis of: -Right lumbar radiculopathy -Lumbar postlaminectomy pain syndrome -Lumbar spondyloarthropathy Plan: -We do lengthy discussion at his current symptoms and they appear to be mixed component of lumbar postlaminectomy pain syndrome as well as a radicular component in the right lower extremity and some spondyloarthropathy, we discussed obtaining his imaging studies from [facility] to get a better understanding of his pathology -Will start him on duloxetine 30 mg and increase to 60 mg 1 week thereafter -We discussed that at this point we should focus on nonnarcotic based interventions and therapies first -2-month follow-up Patient was counseled on the above diagnosis and treatment, all questions were answered and patient agrees to adhere to the plan above. Risk and benefits of appropriate procedures and medications were reviewed as well with patient, who voiced understanding and agreeance. Patient was counseled on appropriate use of opioids if prescribed or renewed today and naloxone was offered to patient if opioids were prescribed or maintained at this visit. PHQ-2 scoring reviewed with patient and discussed seeking treatment for depression or mood disorder as appropriate. Patient was counseled on smoking cessation and/or continuing to abstain from nicotine/tobacco products as appropriate based on history; as smoking/nicotine can contribute to increased pain overall and decreased wound healing. Patient counseled on maintaining a healthy BMI as part of the total treatment of their pain and to reduce stress/strain on joints. Patient invited to return or call with any questions or concerns that arise. [facility] Comment on above: Result Comment: Elec tronically Signed By: Ezequiel Vogel DO\.br\Date and Time Signed: 05/10/24 14:19 EDT 05-10-2024 Evaluation + Plan note Extrac brandon from: Title:chronic pain Author:Ezequiel Vogel DO Date:05/10/24 Patient is presenting with c omplaints of back pain and right-sided radicular symptoms. Has a longstanding history of low back pain over the past several years and he has had significant abortive interventions over the years inclusive of lumbar medial branch blocks and radiofrequency ablations, epidural steroid injections, spinal cord stimulator, multiple spine surgeries that appear to be discectomies and possible spinal fusion. We do not have any images at present to review we discussed obtaining these from his previous treating physicians. At present he rates his low back pain as a 6/10 but can be a 10/10 in severity. He can only stand for an hour before you sit down take a rest. He states that his pain is significant debilitating and he has tried several medications inclusive of NSAIDs, acetaminophen, gabapentin and Percocet. He feels the gabapentin and Percocet are the only things have been effective at helping his pain somewhat. He has not tried many other medications of other classes such as tricyclic antidepressants or SNRIs. We discussed working on nonnarcotic based interventions at this time. NIHARIKA Score: 46% PHQ-2: 3 Patient denies any symptoms of progressively worsening upper/lower extremity weakness, progressively worsening gait abnormality, new onset bowel/bladder incontinence/ urinary retention, or saddle anesthesia. No new or worsening symptoms of fever, chills, night sweats. 14 Point Review of systems negative unless otherwise noted. General: No acute distress. Patient appears well-nourished. HEENT: Head is normocephalic and external ears are normal in appearance. Cardiovascular: No signs of poor perfusion and no peripheral edema Pulmonary: Nonlabored breathing, symmetric chest movement. GI: Abdomen nondistended Integumentary: No lesions Neurologic: Alert, oriented x3. 5/5 strength grossly in the bilateral upper extremities. Sensation intact to light touch in the bilateral upper extremities. 5/5 strength grossly in the bilateral lower extremities. Sensation intact to light touch in the bilateral lower extremities. MSK/Special Testing: Negative Gennaro's sign bilaterally, seated straight leg raise test reproduce mild radicular symptoms on the right. History, physical examination, and personal review of pertinent imaging results indicate a diagnosis of: -Right lumbar radiculopathy -Lumbar postlaminectomy pain syndrome -Lumbar spondyloarthropathy Plan: -We do lengthy discussion at his current symptoms and they appear to be mixed component of lumbar postlaminectomy pain syndrome as well as a radicular component in the right lower extremity and some spondyloarthropathy, we discussed obtaining his imaging studies from [facility] to get a better understanding of his pathology -Will start him on duloxetine 30 mg and increase to 60 mg 1 week thereafter -We discussed that at this point we should focus on nonnarcotic based interventions and therapies first -2-month follow-up Patient was counseled on the above diagnosis and treatment, all questions were answered and patient agrees to adhere to the plan above. Risk and benefits of appropriate procedures and medications were reviewed as well with patient, who voiced understanding and agreeance. Patient was counseled on appropriate use of opioids if prescribed or renewed today and naloxone was offered to patient if opioids were prescribed or maintained at this visit. PHQ-2 scoring reviewed with patient and discussed seeking treatment for depression or mood disorder as appropriate. Patient was counseled on smoking cessation and/or continuing to abstain from nicotine/tobacco products as appropriate based on history; as smoking/nicotine can contribute to increased pain overall and decreased wound healing. Patient counseled on maintaining a healthy BMI as part of the total treatment of their pain and to reduce stress/strain on joints. Patient invited to return or call with any questions or concerns that arise. Future Appointments Appointment Date:07/11/2024 12:45:00 PM Scheduled Provider:Ezequiel Vogel DO Location:.[facility] Appointment Type:Pain Management - Follow Up (FT) Future Scheduled Tests Laboratory* Basic Metabolic Panel 12/12/23 [facility] 07-26-2024 NoteCardiology Clinic Note Chief Complaint: Follow up, history of CAD s/p PCI HPI: Denise Lantigua is a 44 y.o. male who has a past medical history of Asthma, Coronary artery disease, Hyperlipidemia, Hypertension, and Myocardial infarction (CMS/HCC). that iwas referred to Cardiology clinic to establish care. Patient reportedly had STEMI in August with LAD occlusion s/p PCI. Echo demonstrated EF 40-45%. He presented for follow up and complained of chest pain. As such, stress test was performed. Patient was noted to have anterolateral reversible ischemia. Today, patient states that he continues to have chest pain and shortness of breath. He denies any lower extremity edema or orthopnea. No PND. No dizziness or lightheadedness. ROS 10 point ROS is performed and is negative unless otherwise specified in HPI Past Medical History He has a past medical history of Asthma, Coronary artery disease, Hyperlipidemia, Hypertension, and Myocardial infarction (CMS/HCC). Surgical History He has a past surgical history that includes Cardiac catheterization; Coronary stent placement; Back surgery; and Spinal cord stimulator implant. Social History He reports that he has been smoking cigarettes. He has been smoking an average of .25 packs per day. He has never used smokeless tobacco. He reports that he does not currently use alcohol. No history on file for drug use. Family History Family History Problem Relation Name Age of Onset Heart attack Mother 56 Heart attack Maternal Grandfather Medications Current Outpatient Medications on File Prior to Visit Medication Sig Dispense Refill amitriptyline (Elavil) 25 mg tablet Take 25 mg by mouth if needed at bedtime. aspirin 81 mg EC tablet Take 81 mg by mouth in the morning. atorvastatin (Lipitor) 80 mg tablet Take 80 mg by mouth in the morning. carvedilol (Coreg) 25 mg tablet Take 12.5 mg by mouth with breakfast and with evening meal. clopidogrel (Plavix) 75 mg tablet Take 1 tablet (75 mg) by mouth in the morning. 90 tablet 3 cyclobenzaprine (Flexeril) 10 mg tablet Take 10 mg by mouth if needed in the morning, at noon, and at bedtime. furosemide (Lasix) 20 mg tablet Take 20 mg by mouth in the morning. gabapentin (Neurontin) 300 mg capsule Take 300 mg by mouth three times daily. isosorbide mononitrate ER (Imdur) 30 mg 24 hr tablet Take 30 mg by mouth in the morning. losartan (Cozaar) 100 mg tablet Take 50 mg by mouth in the morning and at bedtime. nitroglycerin (Nitrostat) 0.[address] 0.4 mg under the tongue. oxyCODONE-acetaminophen (Percocet) 5-325 mg tablet Take 1 tablet by mouth if needed in the morning, at noon, and at bedtime. pantoprazole (ProtoNix) 40 mg EC tablet Take 40 mg by mouth in the morning. ranolazine (Ranexa) 500 mg 12 hr tablet Take 500 mg by mouth twice a day. No current facility-administered medications on file prior to visit. Allergies Patient has no known allergies. Physical Exam VITAL SIGNS: BP (!) 139/97 (BP Location: Left arm, Patient Position: Sitting) Pulse 77 Ht 1.753 m (5' 9 ) Wt 76.2 kg (168 lb) SpO2 93% BMI 24.81 kg/m??? Constitutional: Well developed, Well nourished, No acute distress, Non-toxic appearance. HENT: Normocephalic, Atraumatic, Bilateral external ears have normal appearance, Nose appears normal, nares are patent. Eyes: PERRLA, EOMI, Conjunctiva normal, No discharge. Neck: Normal range of motion, No tenderness, Supple, No stridor. No cervical lymphadenopathy noted. Cardiovascular: Normal heart rate, Normal rhythm, No murmurs, No rubs, No gallops. Thorax & Lungs: Normal breath sounds, No respiratory distress, No wheezing, No chest tenderness to palpation. Abdomen: Bowel sounds normal, Soft, Nontender, No masses, No pulsatile masses. Skin: Warm, Dry, No erythema, No rash. Back: No tenderness, No CVA tenderness. Extremities: Intact distal pulses, No edema, No tenderness, No cyanosis, No clubbing. Musculoskeletal: Grossly normal strength in extremities Neurologic: Alert & oriented x 3, no gross focal neurological deficits Psychiatric: Affect normal, Judgment normal, Mood normal. EKG results: No results found for this or any previous visit (from the past 4464 hour(s)). Assessment/Plan: Denise Lantigua is a 44 y.o. male with 1. Chest pain, unspecified type 2. CONNORS (dyspnea on exertion) 3. Primary hypertension 4. Coronary artery disease involving tejon coronary artery of tejon heart, unspecified whether angina present 5. Tobacco abuse 6. Abnormal stress test Given cotninued chest pain and abnormal stress, recommend proceeding with coronary angiography with possible PCI Procedure was explained to patient at length and in detail. Risks, benefits, and alternatives were discussed. Patient is informed that risks of this invasive procedure include, but are not limited to, bleeding, hematoma, kidney injury, CVA, arrythmia requiring defibrillation, need (more content not included)...[facility]06-28-2024 NoteCardiology Clinic Note Chief Complaint: New Patient, history of CAD s/p PCI HPI: Denise Lantigua is a 44 y.o. male who has a past medical history of Asthma, Coronary artery disease, Hyperlipidemia, Hypertension, and Myocardial infarction (CMS/HCC). that is referred to Cardiology clinic to establish care. Patient reportedly had STEMI in August with LAD occlusion s/p PCI. Echo demonstrated EF 40-45%. He presents today for follow up. Patient continues to complain of some chest pain and shortness of breath. He has chest pain almost on a daily basis. Shortness of breath is chronic, and he continues to smoke. No lower extremity edema, orthopnea, or PND. No additional complaints. ROS 10 point ROS is performed and is negative unless otherwise specified in HPI Past Medical History He has a past medical history of Asthma, Coronary artery disease, Hyperlipidemia, Hypertension, and Myocardial infarction (CMS/HCC). Surgical History He has a past surgical history that includes Cardiac catheterization; Coronary stent placement; Back surgery; and Spinal cord stimulator implant. Social History He reports that he has been smoking cigarettes. He has been smoking an average of .25 packs per day. He has never used smokeless tobacco. He reports that he does not currently use alcohol. No history on file for drug use. Family History Family History Problem Relation Name Age of Onset Heart attack Mother 56 Heart attack Maternal Grandfather Medications Current Outpatient Medications on File Prior to Visit Medication Sig Dispense Refill amitriptyline (Elavil) 25 mg tablet Take 25 mg by mouth if needed at bedtime. aspirin 81 mg EC tablet Take 81 mg by mouth in the morning. atorvastatin (Lipitor) 80 mg tablet Take 80 mg by mouth in the morning. carvedilol (Coreg) 25 mg tablet Take 12.5 mg by mouth with breakfast and with evening meal. cyclobenzaprine (Flexeril) 10 mg tablet Take 10 mg by mouth if needed in the morning, at noon, and at bedtime. gabapentin (Neurontin) 300 mg capsule Take 300 mg by mouth three times daily. isosorbide mononitrate ER (Imdur) 30 mg 24 hr tablet Take 30 mg by mouth in the morning. losartan (Cozaar) 100 mg tablet Take 50 mg by mouth in the morning and at bedtime. nitroglycerin (Nitrostat) 0.[address] 0.4 mg under the tongue. oxyCODONE-acetaminophen (Percocet) 5-325 mg tablet Take 1 tablet by mouth if needed in the morning, at noon, and at bedtime. pantoprazole (ProtoNix) 40 mg EC tablet Take 40 mg by mouth in the morning. ranolazine (Ranexa) 500 mg 12 hr tablet Take 500 mg by mouth twice a day. No current facility-administered medications on file prior to visit. Allergies Patient has no known allergies. Physical Exam VITAL SIGNS: BP (!) 150/98 (BP Location: Right arm, Patient Position: Sitting) Pulse 80 Ht 1.753 m (5' 9 ) Wt 76.7 kg (169 lb) SpO2 96% BMI 24.96 kg/m??? Constitutional: Well developed, Well nourished, No acute distress, Non-toxic appearance. HENT: Normocephalic, Atraumatic, Bilateral external ears have normal appearance, Nose appears normal, nares are patent. Eyes: PERRLA, EOMI, Conjunctiva normal, No discharge. Neck: Normal range of motion, No tenderness, Supple, No stridor. No cervical lymphadenopathy noted. Cardiovascular: Normal heart rate, Normal rhythm, No murmurs, No rubs, No gallops. Thorax & Lungs: Normal breath sounds, No respiratory distress, No wheezing, No chest tenderness to palpation. Abdomen: Bowel sounds normal, Soft, Nontender, No masses, No pulsatile masses. Skin: Warm, Dry, No erythema, No rash. Back: No tenderness, No CVA tenderness. Extremities: Intact distal pulses, No edema, No tenderness, No cyanosis, No clubbing. Musculoskeletal: Grossly normal strength in extremities Neurologic: Alert & oriented x 3, no gross focal neurological deficits Psychiatric: Affect normal, Judgment normal, Mood normal. EKG results: No results found for this or any previous visit (from the past 4464 hour(s)). Assessment/Plan: Denise Lantigua is a 44 y.o. male with Coronary artery disease involving tejon coronary artery of tejon heart, unspecified whether angina present Primary hypertension Mixed hyperlipidemia Shortness of breath Precordial pain Tobacco abuse Given cotninued chest pain, will obtain stress test to assess for and localize ischemia Continue Aspirin, Plavix, Atorvastatin, and coreg for CAD Continue Coreg for HTN Continue Atorvastatin 80 mg daily for HLD Continue Imdur and Ranexa for chest pain, CAD I spent 7 minutes counseling the patient on the importance of smoking cessation. I emphasized the risk of continued smoking. I offered the patient various resources. Patient respectfully declines at this time. Optimize medical management Aggressive risk factor modification Plan of care discussed with patient. All questions were answered. Patient voices understanding and is agre (more content not included)...[facility]03-04-2024 Evaluation + Plan note Future Scheduled Tests Laboratory* Basic Metabolic Panel 12/12/23 [facility]03-01-2024 Hospital Discharge instructions Patient Education 12/09/2023 13:46:35 Hypertension, Adult, Fkgn-mg-Dxxy Hypertension, Adult Hypertension is another name for high blood pressure. High blood pressure forces your heart to workharder to pump blood. This can cause problems over time. There are two numbers in a blood pressure reading. There is a top number (systolic) over a bottom number (diastolic). It is best to have a blood pressure that is below 120/80. What are the causes? The cause of this condition is not known. Some other conditions can lead to high blood pressure. What increases the risk? Some lifestyle factors can make you more likely to develop high blood pressure: Smoking. Not getting enough exercise or physical activity. Being overweight. Having too much fat, sugar, calories, or salt (sodium) in your diet. Drinking too much alcohol. Other risk factors include: Having any of these conditions: ?Heart disease. ?Diabetes. ? High cholesterol. ?Kidney disease. ?Obstructive sleep apnea. Having a family history of high blood pressure and high cholesterol. Age. The risk increases with age. Stress. What are the signs or symptoms? High blood pressure may not cause symptoms. Very high blood pressure (hypertensive crisis) may cause: Headache. Fast or uneven heartbeats (palpitations). Shortness of breath. Nosebleed. Vomiting or feeling like you may vomit (nauseous). Changes in how you see. Very bad chest pain. Feeling dizzy. Seizures. How is this treated? This condition is treated by making healthy lifestyle changes, such as: ?Eating healthy foods. ?Exercising more. ?Drinking less alcohol. Your doctor may prescribe medicine if lifestyle changes do not help enough and if: ?Your top number is above 130. ?Your bottom number is above 80. Your personal target blood pressure may vary. Follow these instructions at home: Eating and drinking If told, follow the DASH eating plan. To follow this plan: ?Fill one half of your plate at each meal with fruits and vegetables. ?Fill one fourth of your plate at each meal with whole grains. Whole grains include whole-wheat pasta, brown rice, and whole-grain bread. ?Eat or drink low-fat dairy products, such as skim milk or low-fat yogurt. ?Fill one fourth of your plate at each meal with low-fat (lean) proteins. Low- fat proteins include fish, chicken without skin, eggs, beans, and tofu. ?Avoid fatty meat, cured and processed meat, or chicken with skin. ?Avoid pre-made or processed food. Limit the amount of salt in your diet to less than 1,500 mg each day. Do not drink alcohol if: ?Your doctor tells you not to drink. ?You are , may be , or are planning to become . If you drink alcohol: ?Limit how much you have to: ?0 1 drink a day for women. ?0 2 drinks a day for men. ?Know how much alcohol is in your drink. In the [place] one drink equals one 12 oz bottle of beer (355 mL), one 5 oz glass of wine (148 mL), or one 1 oz glass of hard liquor (44 mL). Lifestyle Work with your doctor to stay at a healthy weight or to lose weight. Ask your doctor what the best weight is for you. Get at least 30 minutes of exercise that causes your heart to beat faster (aerobic exercise) most days of the week. This may include walking, swimming, or biking. Get at least 30 minutes of exercise that strengthens your muscles (resistance exercise) at least 3 days a week. This may include lifting weights or doing Pilates. Do not smoke or use any products that contain nicotine or tobacco. If you need help quitting, ask your doctor. Check your blood pressure at home as told by your doctor. Keep all follow-up visits. Medicines Take xaqz-aax-pecsrak and prescription medicines only as told by your doctor. Follow directions carefully. Do not skip doses of blood pressure medicine. The medicine does not work as well if you skip doses.Skipping doses also puts you at risk for problems. Ask your doctor about side effects or reactions to medicines that you should watch for. Contact a doctor if: You think you are having a reaction to the medicine you are taking. You have headaches that keep coming back. You feel dizzy. You have swelling in your ankles. You have trouble with your vision. Get help right away if: You get a very bad headache. You start to feel mixed up (confused). You feel weak or numb. You feel faint. You have very bad pain in your: ?Chest. ?Belly (abdomen). You vomit more than once. You have trouble breathing. These symptoms may be an emergency. Get help right away. Call 911. Do not wait to see if the symptoms will go away. Do not drive yourself to the hospital. Summary Hypertension is another name for high blood pressure. High blood pressure forces your heart to work harder to pump blood. For most people, a normal blood pressure is less than 120/80. Making healthy choices can help lower blood pressure. If your blood pressure does not get lower with healthy choices, you may need to take medicine. This information is not intended to replace advice given to you by your health care provider. Make sure you discuss any questions you have with your health care provider. Document Revised: 07/15/2022 Document Reviewed: 07/15/2022 [employer] Patient Education 2022 [employer]. Follow Up Care 12/09/2023 00:53:41 With:Rebekah RODNEY, Denise Parada. Address: [address] [place] [id number] Business (1) When:1 to 2 weeks Comments:Call for followup appointmentCall physician if symptoms worsen With:KATIE SALGUERO Address: [address] [place] [address] MAREN PANTOJA, [address] [address] Business (1) When:12/14/2023 10:30:00 [facility]03-01-2024 NoteAdmission and Discharge Information Admitting Physician - Dora RHODES DO Consulting Physician - [facility], XXXX ZACH RODNEY, Frank Westbrook Admitting Diagnoses: Discharge Order Date Discharge Patient - Ordered -- 12/09/23 13:52:00 EST Discharge Diagnoses 1. Chest pain, 12/09/2023 2. 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, 12/09/2023 3. Hypertensive emergency, 12/09/2023 4. Smoker, 12/09/2023 5. Chronic back pain, 12/09/2023 6. On deep vein thrombosis (DVT) prophylaxis, 12/09/2023 Chest pain, 12/09/2023 Shortness of breath, 12/09/2023 Procedure History PCI - Percutaneous coronary intervention (08/29/2023), Discectomy (10/10/2017), Discectomy (11/10/2016), Discectomy (10/10/2015). Hospital Course Patient is a very pleasant 43-year-old currently smoking nondiabetic gentleman with a history of hypertension, hypercholesterolemia, coronary artery disease status post acute anterior wall myocardialinfarction on 08/29/2023. Patient states that he has been medically compliant with his aspirin and Brilinta. He reported to the ED on with complaints of 2 to 3 days of chest pain with radiation to left arm, nausea, diaphoresis, shortness of breath. EKG shows some slight ST elevation, compared to his prior this has significantly improved as his previous 1 was from when he was diagnosed with aSTEMI. Patient was given aspirin as well as nitroglycerin in the ED. Chest x-ray shows no acute process. His initial troponin was within normal limits. He did have a bump in his creatinine compared to his previous. Patient received 3 doses of SL nitro and aspirin which he noted significantly improved his symptoms. Patient was admitted for further workup and treatment. Cardiology was consulted and followed patient. Patient was monitored on telemetry. Echocardiogram showed an EF of 60-65% which was improved from previous which was 40-45%. Left ventricular wall motion is normal. Pre cardiology, patient it was recommended that he continue on baby aspirin, Brilinta, Lasix, restart his Coreg 6.25 mg p.o. twice daily, and start on Imdur 30 mg p.o. daily and titrating up from there. In addition we will increase his Cozaar to 25 mg p.o. twice daily. R ecommended the patient discontinue all tobacco products. Patient stable at discharge. pt sxs were improved throughout stay. Patient will be discharged home. Instructed to report to the ER if their symptoms change or worsen. Med changes: Cozaar to 25 mg p.o. twice daily Follow-up appointments: Follow up with cardiology in 1-2 weeks Follow up with PCP as needed Discharge time was approximately 32 minutes which included extensive conversation with patient about diagnosis and treatment along with communication with consultants, case management, nursing. Services Consulted Consult to Cardiology - Ordered -- 12/09/23 2:41:00 EST, cp, Consult and Co-manage, [facility] Physical Exam Vitals & Measurements T: 36.6 ?C(Oral) TMIN: 36.4 ?C(Oral) TMAX: 36.7 ?C(Oral) HR: 64(Monitored) RR: 18 BP: 97/63 SpO2: 96% HT: 175.26 cm WT: 78 kg please see progress note Tests Performed BMP -- Results Pending -- CBC w/ Auto Diff -- Results Pending -- Echo Transthoracic Complete XR Chest Single View Please visit your patient portal for your results or contact your primary care physician. Discharge Plan Discharge Disposition Discharge To, Anticipated II - Home with responsible caregiver Discharged to - Home with family care Discharge Medication List Prescriptions aspirin 81 mg Oral EC Tab, 81 mg= 1 tab(s), Oral, Daily atorvastatin 80 mg Tab, 80 mg= 1 tab(s), Oral, Daily, 6 refills carvedilol 6.25 mg Tab, 6.25 mg= 1 tab(s), Oral, BID, 6 refills cyclobenzaprine 10 mg Tab, See Instructions isosorbide mononitrate 30 mg ER Tab, 30 mg= 1 tab(s), Oral, qAM, 3 refills Lasix 20 mg Tab, 20 mg= 1 tab(s), Oral, Daily, 6 refills losartan 25 mg Tab, 25 mg= 1 tab(s), Oral, BID Ranexa 500 mg Tab-ER, 500 mg= 1 tab(s), Oral, BID, 3 refills ticagrelor 90 mg oral tablet, 90 mg= 1 tab(s), Oral, BID, 6 refills work excuse, 0 Home carvedilol 6.25 mg Tab cyclobenzaprine 10 mg Tab gabapentin 300 mg Cap Percocet 325 mg-5 mg Tab Percocet 5 mg-325 mg oral tablet Follow-up With When Contact Information KATIE JACOB 12/14/2023 10:30 AM EST [address], [address] [place] [address]- Business (1) Additional Instructions: Rebekah RODNEY, Denise Valdez Within 1 to 2 weeks [address] [place] [address]- Business (1) Additional Instructions: Call for followup appointment Call physician if symptoms worsen Patient Education Hypertension, Adult, Brda-yk-EgqhIomomeKettering Health – Soin Medical CenterComment on above: Result Comment: Electronically Signed By: Durga Thompson DO\.br\Date and Time Signed: 12/09/23 14:01 [id number] Evaluation + Plan noteExtracted from: Title:Discharge Note Author:Durga Thompson DO Date:12/09/23 Discharge To, Anticipated II - Home with responsible caregiver Discharged to - Home with family care Prescriptions aspirin 81 mg Oral EC Tab, 81 mg= 1 tab(s), Oral, Daily atorvastatin 80 mg Tab, 80 mg= 1 tab(s), Oral, Daily, 6 refills carvedilol 6.25 mg Tab, 6.25 mg= 1 tab(s), Oral, BID, 6 refills cyclobenzaprine 10 mg Tab, See Instructions isosorbide mononitrate 30 mg ER Tab, 30 mg= 1 tab(s), Oral, qAM, 3 refills Lasix 20 mg Tab, 20 mg= 1 tab(s), Oral, Daily, 6 refills losartan 25 mg Tab, 25 mg= 1 tab(s), Oral, BID Ranexa 500 mg Tab-ER, 500 mg= 1 tab(s), Oral, BID, 3 refills ticagrelor 90 mg oral tablet, 90 mg= 1 tab(s), Oral, BID, 6 refills work excuse, 0 Home carvedilol 6.25 mg Tab cyclobenzaprine 10 mg Tab gabapentin 300 mg Cap Percocet 325 mg-5 mg Tab Percocet 5 mg-325 mg oral tablet With When Contact Information KATIE CLAROSCARO 12/14/2023 10:30 AM EST [address], [address] [place] [address]- Business (1) Additional Instructions: Rebekah RODNEY, Denise Valdez Within 1 to 2 weeks [address] [place] [address]- Business (1) Additional Instructions: Call for followup appointment Call physician if symptoms worsen Hypertension, Adult, Iusq-eu-Qoxn Extracted from: Title:APSO Note Author:Bela minaya Maryellenmica Alvarado Date:12/09/23 1. Chest pain (R07.9: Chest pain, unspecified) possibly 2/2 high BP trop trend was negative tele cardio consulted and following pt echo pending - Baby aspirin - Brilinta - Coreg 6.25 mg - Start Imdur 30 mg p.o. twice daily with titration. - losartan was increased to 25 mg p.o. BID with monitoring of creatinine - Continue Ranexa - Stress test is not recommended at this time given negative troponin 2. 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 (I25.10: Atherosclerotic heart disease of tejon coronary artery without angina pectoris) hx of [place] in 08/2023 ASA, brilinta, statin 3. Hypertensive emergency (I16.1: Hypertensive emergency) 2/2 to above Losartan coreg imdur Hydralazine prn 4. Smoker (F17.200: Nicotine dependence, unspecified, uncomplicated) Nicotine patch prn Educate on smoking cessation 5. Chronic back pain (M54.9: Dorsalgia, unspecified) Gabapentin Oxycodone 6. 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 elevated Cr -monitor -may need IVF Extracted from: Title:Consult Note Author:ZACH RODNEY, Frank Sierra te:12/09/23 1. Chest pain (R07.9: Chest pain, unspecified) Patient's chest pain is most likely hypertensive and related. He denies any illicit drug use. He does report medical compliance. I recommend continuing on baby aspirin, Brilinta, restarting his Coreg 6.25 mg p.o. twice daily, continuing Lasix 20 mg a day, starting him on Imdur 30 mg p.o. daily and titrating up from there. In addition we will increase his Cozaar to 25 mg p.o. twice daily but we need to watch his creatinine so that it does not increase. He may continue Ranexa therapy as well. In addition we will repeat his echocardiogram to reevaluate his LV function particularly the anterior wall. Do not believe the patient requires repeat stress test at this time given his negative troponins and significant hypertension. If he continues to have chest pressure despite adequate medical therapy and blood pressure control, he may benefit from a treadmill/MPI to evaluate for possible additional ischemia of the inferior lateral cooley for his circumflex and right coronary artery. I strongly recommended the patient discontinue all tobacco products. Thank you very much for the opportunity to participate in the cardiac care of your patient. Consultation time took place between 730 and 8 AM. Patient may follow- up with Dr. Putnam. 2. 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 (I25.10: Atherosclerotic heart disease of tejon coronary artery without angina pectoris) 3. Hypertensive emergency (I16.1: Hypertensive emergency) 4. Smoker (F17.200: Nicotine dependence, unspecified, uncomplicated) 5. Chronic back pain (M54.9: Dorsalgia, unspecified) 6. On deep vein thrombosis (DVT) prophylaxis (Z79.899: Other terminal operations manager (current) drug therapy) Other chronic pain (G89.29: Other chronic pain) Orders: isosorbide mononitrate, 30 mg = 1 tab(s), Tab-ER, Oral, Daily, Routine, Start date 12/09/23 9:00:00 EST, 12/09/23 7:14:00 EST losartan, 25 mg = 0.5 tab(s), Tab, Oral, BID, Routine, Start date 12/09/23 9:00:00 EST, 12/09/23 7:14:00 EST Echo Transthoracic Complete Extracted from: Title:Admission H & P Author:Dora RHODES DO Date:12/09/23 1. Chest pain (R07.9: Chest pain, unspecified) Concern for unstable angina. Will start patient on nitroglycerin 1 inch. Cardiology has been consulted. Patient is currently on a beta-alfonzo, statin, ARB, ticagrelor, aspirin. These will be continued once doses have been reconciled. 2. 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 (I25.10: Atherosclerotic heart disease of tejon coronary artery without angina pectoris) See #1 3. Hypertensive emergency (I16.1: Hypertensive emergency) See #1 4. Smoker (F17.200: Nicotine dependence, unspecified, uncomplicated) Nicotine patch as needed. Encourage cessation. 5. Chronic back pain (M54.9: Dorsalgia, unspecified) Will continue patient's gabapentin and oxycodone. 6. On deep vein thrombosis (DVT) prophylaxis (Z79.899: Other intermediate (current) drug therapy) SCD, enoxaparin Orders: acetaminophen, 650 mg = 2 tab(s), Tab, Oral, q6hr PRN Pain, Routine, Start date 12/09/23 2:41:00 EST, 12/09/23 2:41:00 EST diphenhydrAMINE, 25 mg = 1 cap(s), Cap, Oral, q6hr PRN Itching, Routine, Start date 12/09/23 2:41:00 EST, 12/09/23 2:41:00 EST enoxaparin, 40 mg = 0.4 mL, Injection, SubCutaneous, Daily for 30 day(s), Stop date 01/08/24 8:59:00 EDT, Routine, Start date 12/09/23 9:00:00 EST, 12/09/23 2:41:00 EST hydrALAZINE, 10 mg = 0.5 mL, Injection, IV Push, q6hr PRN Other (see comment), Routine, Start date 12/09/23 2:41:00 EST, 12/09/23 2:41:00 EST nicotine, 21 mg, 1 patch(es), Patch-ER, TransDermal, Daily PRN Other (see comment) for 30 day(s), Stop date 01/08/24 2:41:00 EDT, Routine, Start date 12/09/23 2:42:00 EST nitroglycerin, 1 in, Ointment, Topical, Once, Stop date 12/09/23 3:00:00 EST, Routine, Start date 12/09/23 3:00:00 EST ondansetron, 4 mg = 2 mL, Injection, IV Push, q6hr PRN Nausea, Routine, Start date 12/09/23 2:41:00 EST, 12/09/23 2:41:00 EST Ambulate with Assistance Cardiac Diet Cardiac Monitoring Chest Pain, AMI Quality Measures Communication Order Consult to Cardiology HgbA1c Lipid Panel Notify Provider Vital Signs Notify Provider Vital Signs Oxygen Protocol Place in Status Resuscitation Status - Full CATIE Risk Score Vital Signs Weight Anticipated stay less than 2 midnights. Patient will be observation status. Extracted from: Title:ED Note Author:Valentin Warner DO Date :12/09/23 Chest pain (R07.9: Chest francesco n, unspecified) Hypertensive emergency (I16.1: Hypertensive emergency) Orders: aspirin, 162 mg = 2 tab(s), Tab-Chew, Oral, Once, Stop date 12/09/23 1:03:00 EST, STAT, Start date 12/09/23 1:03:00 EST, 12/09/23 1:03:00 EST nitroglycerin, 0.4 mg = 1 tab(s), Tab, SubLingual, q5min PRN Chest pain for 3 dose(s), Stop date Limited # of times, STAT, Start date 12/09/23 1:03:00 EST, Hold for SBP < 110, 12/09/23 1:03:00 EST Basic Metabolic Panel CBC w/ Auto Diff ECG 12 Lead Adult ED Cardiac Monitoring eGFR Oxygen Saturation Oxygen Therapy PT & PTT Saline Lock Insert Troponin 0 Hr. Troponin 3 Hr. Troponin 6 Hr. Troponin 9 Hr. XR Chest Single View Future Scheduled Tests Laboratory* Basic Metabolic Panel 12/12/23 [facility]03-01-2024 NoteEchocardiology Procedure Exam Date/Time Accession # Ordering Dr. Kiser Transthoracic 12/09/2023 09:13 EST [id number] Frank SERRANO MD Complete CPT code 33633 [id number] Reason for Exam (Echo Transthoracic Complete) Chest pain Report [facility] [address] [place] [address] Adult Echocardiogram Report Name: DENISE LANTIGUA Study Date: 12/09/2023 08:32 AM BP: 142/101 mmHg Patient Location: [address] [place] [address] HR: 66 : 1980 Gender: Male Height: 68.5 in Age: 43 yrs Ethnicity: T Weight: 163 lb Reason For Study: Chest pain BSA: 1.9 m2 History: CAD, IL, PCI, HTN, Smoker Ordering Physician: Frank SERRANO Performed By: Sarah Engel [facility] Interpretation Summary Ejection Fraction = 60-65%. The left ventricular wall motion is normal. Normal diastolic function. Right ventricular systolic pressure is 25 mmHg. Comparison echo report dated 08/30/2023, LV function has normalized from 40-45% to 60/65%. RVSP has remained the same. Procedure A complete two-dimensional transthoracic echocardiogram was performed (2D, M- mode, spectral and color flow Doppler). Study quality is good. I WMSI = 1.00 % Normal = 100 Segments Size X - Cannot 2 - 1-2 small Interpret 1 - Normal Hypokinetic 3 - Akinetic 4 - Dyskinetic3-5 moderate 5 - Aneurysmal 6-14 large 15-16 diffuse Left Ventricle The left ventricle is normal in size. There is normal left ventricular wall thickness. Ejection Fraction = 60-65%. The Echocardiology Report left ventricular wall motion is normal. Normal diastolic function. Left Atrium The left atrial size is normal. Right Atrium Right atrial size is normal. Right Ventricle The right ventricular systolic function is normal. Aortic Valve The aortic valve is trileaflet. Mitral Valve Mitral valve structure is normal. Tricuspid Valve Structurally normal tricuspid valve. There is trace tricuspid regurgitation. Right ventricular systolic pressure is 25 mmHg. Pulmonic Valve The pulmonic valve is normal. Arteries The aortic root is normal in size. Venous The inferior vena cava is normal in size, and collapses normally with respiration. Effusion There is no pericardial effusion. MMode/2D Measurements & Calculations RVDd: 3.0 cm LVIDd: 3.6 cm FS: 41.4 % Ao root diam: 2.7 cm IVSd: 1.3 cm LVIDs: 2.1 cm EDV(Teich): 53.9 ml Ao root area: 5.7 cm2 LVPWd: 1.1 cm ESV(Teich): 14.4 ml LA dimension: 3.2 cm EF(Teich): 73.2 % asc Aorta Diam: 3.3 cm LVOT diam: 2.1 cm LVLd ap4: 8.2 cm EDV(MOD-sp2): 71.1 ml LVOT area: 3.6 cm2 EDV(MOD-sp4): 54.1 ml ESV(MOD-sp2): 26.1 ml LVLs ap4: 7.1 cm EF(MOD-sp2): 63.3 % ESV(MOD-sp4): 20.2 ml EF(MOD-sp4): 62.7 % SV(MOD-sp4): 33.9 ml TAPSE: 2.1 cm Ao Sinus of Valsalva: 3.0 cm Ao Sinotubular Junction: 2.7 cm IVC Diam: 1.1 cm RVIDd/LVIDd: 0.84 EF (MOD-bp): 63.3 % LA Vol Index: 17.2 ml/m2 Doppler Measurements & Calculations Echocardiology Report MV E max roland: 89.1 cm/sec MV dec time: 0.19 sec Ao V2 max: 143.3 cm/sec LV V1 max P.0 mmHg MV A max roland: 68.3 cm/sec Ao max P.2 mmHg LV V1 max: 71.3 cm/sec MV E/A: 1.3 Lat Peak E' Roland: 8.7 cm/sec AARON(V,D): 1.8 cm2 E/E' Lat: 10.2 Med Peak E' Roland: 7.5 cm/sec E/E' Med: 12.0 TR max roland: 232.9 cm/sec RAP systole: 3.0 mmHg AV VR: 0.50 TR max P.7 mmHg RVSP(TR): 24.7 mmHg FINAL REPORT Dictated: 12/09/2023 8:32 am Frank SERRANO MD Signed (Electronic Signature): 12/09/2023 10:01 am Signed by: Frank SERRANO MD Transcribed by: BASSAM Technologist: [facility]03-01-2024 Note Chief Complaint Pt. reports high blood pressure that past few days and is now associatted with chest pain. History of Present Illness Patient is a 43-year-old male with past medical history as noted below comes in with above-stated chief complaint. Patient has had 2 to 3 days of chest pain with radiation to left arm, nausea, diaphoresis, shortness of breath. Patient is also noted his blood pressure to be elevated when he checks it at home. Patient states that the pain became so severe today that he came to the ED for evaluation. When I see patient he has received 3 nitroglycerin sublingual under the tongue and feels significantly better than when he arrived. But still has a little bit of left-sided chest pain. Patient denies any recent fevers, chills, abdominal pain, diarrhea, constipation, headache, vision changes. Review of Systems 14 Systems reviewed and negative except as noted in HPI. Scoring [place] Fall Risk Score: 35 (12/09/23) Physical Exam Vitals & Measurements T: 36.7 ?C(Oral) TMIN: 36.4 ?C(Oral) TMAX: 36.7 ?C(Oral) HR: 74(Peripheral) RR: 18 BP: 165/117 SpO2: 98% HT: 175.26 cm WT: 74.54 kg General: alert, no acute distress Skin: warm, dry Head: no trauma, normocephalic Neck: Trachea midline, no adenopathy, no tenderness Eye: normal conjunctiva, sclera clear ENMT: oral mucosa moist, no pharyngeal erythema or exudate. hearing grossly intact Cardiovascular: regular rate and rhythm, no murmur/gallop/rub Respiratory: Lungs CTA, respirations non labored , no w/r/r Gastrointestinal: Positive bowel sound, soft, non distended, no tenderness, no guarding. Extremities: no deformity, no trauma Osteopathic: Deferred due to being noncontributory to current case. Neurological: oriented x 4, LOC appropriate for age, CN II-XII intact, motor strength equal & normal bilaterally, sensation equal & normal bilaterally, speech normal Psychiatric: cooperative, affect appropriate for age, normal judgement, normal psychiatric thoughts. Lab Results WBC: 10.7 E9/L (12/09/23 01:05:00) RBC: 4.6 E12/L (12/09/23:05:00) HGB: 13.8 gm/dL (12/09/23:05:00) Hct: 39.8 % (12/09/23:05:00) MCV: 86.2 fL (12/09/23:05:00) MCH: 29.9 pg (12/09/23:05:00) MCHC: 34.7 gm/dL (12/09/23:05:00) RDW: 16.4 % High (12/09/23:05:00) Platelet: 308 E9/L (12/09/23:05:00) MPV: 8.2 fL (12/09/23 01:05:00) Neutro Auto: 59.1 % (12/09/23:05:00) Lymph Auto: 28.6 % (12/09/23 01:05:00) [place] Auto: 5.5 % (12/09/23:05:00) Eos Auto: 5.8 % (12/09/23:05:00) Basophil Auto: 1 % (12/09/23 01:05:00) Neutro Absolute: 6.3 E9/L (12/09/23 01:05:00) Lymph Absolute: 3.1 E9/L (12/09/23 01:05:00) [place] Absolute: 0.6 E9/L (12/09/23 01:05:00) Eos Absolute: 0.6 E9/L High (12/09/23:05:00) Basophil Absolute: 0.1 E9/L (12/09/23:05:00) PT: 10.9 second(s) (12/09/23:05:00) INR: 0.97 (12/09/23:05:00) PTT: 34.7 second(s) (12/09/23:05:00) Glucose Lvl: 110 mg/dL (12/09/23:05:00) BUN: 15 mg/dL (12/09/23:05:00) Creatinine: 1.6 mg/dL High (12/09/23:05:) eGFR: 54 mL/min/1.73 m2 Low (12/09/2305) BUN/Creat Ratio: 9 Low (12/09/2305:) Sodium Lvl: 139 mmol/L (12/09/23:05:00) Potassium Lvl: 4.1 mmol/L (12/09/23:05:) Chloride: 105 mmol/L (12/09/23:05:00) CO2: 26 mmol/L (12/09/23:05:00) AGAP: 12 mEq/L (12/09/23:05:) Calcium Lvl: 9.4 mg/dL (12/09/23:05:00) Troponin: 13.3 pg/mL Low (12/09/23:05:00) Assessment/Plan 1. Chest pain (R07.9: Chest pain, unspecified) Concern for unstable angina. Will start patient on nitroglycerin 1 inch. Cardiology has been consulted. Patient is currently on a beta-alfonzo, statin, ARB, ticagrelor, aspirin. These will be continued once doses have been reconciled. 2. 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 (I25.10: Atherosclerotic heart disease of [place] coronary artery without angina pectoris) See #1 3. Hypertensive emergency (I16.1: Hypertensive emergency) See #1 4. Smoker (F17.200: Nicotine dependence, unspecified, uncomplicated) Nicotine patch as needed. Encourage cessation. 5. Chronic back pain (M54.9: Dorsalgia, unspecified) Will continue patient's gabapentin and oxycodone. 6. On deep vein thrombosis (DVT) prophylaxis (Z79.899: Other terminal operations manager (current) drug therapy) SCD, enoxaparin Orders: acetaminophen, 650 mg = 2 tab(s), Tab, Oral, q6hr PRN Pain, Routine, Start date 12/09/23 2:41:00 EST, 12/09/23 2:41:00 EST diphenhydrAMINE, 25 mg = 1 cap(s), Cap, Oral, q6hr PRN Itching, Routine, Start date 12/09/23 2:41:00 EST, 12/09/23 2:41:00 EST enoxaparin, 40 mg = 0.4 mL, Injection, SubCutaneous, Daily for 30 day(s), Stop date 01/08/24 8:59:00 EDT, Routine, Start date 12/09/23 9:00:00 EST, 12/09/23 2:41:00 EST hydrALAZINE, 10 mg = 0.5 mL, Injection, IV Push, q6hr PRN Other (see comment), Routine, Start date 12/09/23 2:41:00 EST, 12/09/23 2:41:00 EST nicotine, 21 mg, 1 patch(es), Patch-ER, TransDermal, Daily PRN Other (see comment) for 30 day(s), Stop date 01/07 (more content not included)...[facility] CenterComment on above:Result Comment: Electronically Signed By: Dora RHODES DO\Date and Time Signed: 12/09/23 02:46 [id number] Evaluation note* Encounter Date Diagnosis Assessment Notes Treatment Notes Treatment Clinical Notes Nov, Other spondylosis with radiculopathy, lumbar region (ICD-10 - M47.26) Patient continues to voice some complaints of lumbar and gluteal pain. Patient has exhausted every conservative treatment options I have to offer at this time. We will continue with his current medication regimen. He has again strongly been encouraged to work towards using less opioid medication. He understands and agrees to this. We will follow up with the patient in one month, sooner if needed. Anatomy of spine discussed in detail with patient in regard to patients condition. Nov, Thoracic back pain (ICD-10 - M54.6) We will continue to monitor these symptoms. Nov, Chronic, continuous use of opioids (ICD-10 - F11.90) Patient has a continued need for Percocet 5-325 mg up to three times daily as needed and Gabapentin 900 mg three times daily. Opioid risk assessment was done, without concerns. OARRS was processed and reviewed, no discrepancies noted. Patient is compliant with their medications and reports no opioid related side effects. He is in agreement that this medication provides reasonable benefit in regard to his pain control and level of function allowing him to perform daily activities. A refill was provided today. Again, he was encouraged to continue to scale back to twice daily. Nov, Chronic pain (ICD-10 - G89.29) Nov, Other Above note writ ten by Lakshmi Danielson RN, Receptionist Telephone Operator. Edited and approved by Dr. Shaquille Remy MD. [facility] Other 02-12-2024 Evaluation note* Encounter Date Diagnosis Assessment Notes Treatment Notes Treatment Clinical Notes Nov, Chronic, continuous use of opioids (ICD-10 - F11.90) [facility] Other 01-11-2024 Evaluation note* Encounter Date Diagnosis Assessment Notes Treatment Notes Treatment Clinical Notes Oct, Other spondylosis with radiculopathy, lumbar region (ICD-10 - M47.26) Patient continues to voice some complaints of lumbar and gluteal pain. Patient has exhausted every conservative treatment options I have to offer at this time. We will continue with medication regimen. We will follow up with the patient in one month, sooner if needed. Anatomy of spine discussed in detail with patient in regard to patients condition. Oct, Thoracic back pain (ICD-10 - M54.6) Oct, Chronic, continuous use of opioids (ICD-10 - F11.90) Patient has a continued need for Percocet 5-325 mg up to three times daily as needed and Gabapentin 900 mg three times daily. Opioid risk assessment was done, without concerns. OARRS was processed and reviewed, no discrepancies noted. Patient is compliant with their medications and reports no opioid related side effects. He is in agreement that this medication provides reasonable benefit in regard to his pain control and level of function allowing him to perform daily activities. A refill was provided today. Again, he was encouraged to continue to scale back to twice daily. Oct, Chronic pain (ICD-10 - G89.29) Oct, Other Above note writ ten by Gabriel Grady LPN, Receptionist Telephone Operator. Edited and approved by Dr. Shaquille Remy MD. [facility] Other 01-11-2024 Evaluation note* Encounter Date Diagnosis Assessment Notes Treatment Notes Treatment Clinical Notes Oct, Chronic, continuous use of opioids (ICD-10 - F11.90) [facility] Other 12-14-2023 Evaluation note* Encounter Date Diagnosis Assessment Notes Treatment Notes Treatment Clinical Notes Sep, Chronic, continuous use of opioids (ICD-10 - F11.90) [facility] Other 12-14-2023 Evaluation note* Encounter Date Diagnosis Assessment Notes Treatment Notes Treatment Clinical Notes Sep, Other spondylosis with radiculopathy, lumbar region (ICD-10 - M47.26) Patient continues to voice some complaints of lumbar and gluteal pain. Patient has exhausted every conservative treatment options I have to offer at this time. We will continue with medication regimen. We will follow up with the patient in one month, sooner if needed. Anatomy of spine discussed in detail with patient in regard to patients condition. Sep, Thoracic back pain (ICD-10 - M54.6) Sep, Chronic, continuous use of opioids (ICD-10 - F11.90) Patient has a continued need for Percocet 5-325 mg up to three times daily as needed and Gabapentin 900 mg three times daily. Patient was again encouraged to try taking less of this medication as he starts to get more relief with the spinal cord stimulator. Opioid risk assessment was done, without concerns. OARRS was processed and reviewed, no discrepancies noted. Patient is compliant with their medications and reports no opioid related side effects. He is in agreement that this medication provides reasonable benefit in regard to his pain control and level of function allowing him to perform daily activities. A refill was provided today. Again, he was encouraged to continue to scale back and take this twice daily. Sep, Chronic pain (ICD-10 - G89.29) Sep, Other Above note writ ten by Lakshmi Danielson, RN, Receptionist Telephone Operator. Edited and approved by Dr. Shaquille Remy MD. [facility] Other 11-22-2023 Evaluation + Plan noteExtracted from: Title:Discharge Note Author:Durga Thompson DO Date:08/31/23 Discharge To, Anticipated II - Home with responsible caregiver Discharged to - Home independently Prescriptions aspirin 81 mg Oral EC Tab, 81 mg= 1 tab(s), Oral, Daily atorvastatin 80 mg Tab, 80 mg= 1 tab(s), Oral, Daily carvedilol 3.125 mg Tab, 3.125 mg= 1 tab(s), Oral, BID Lasix 20 mg Tab, 20 mg= 1 tab(s), Oral, Daily losartan 50 mg Tab, 25 mg= 0.5 tab(s), Oral, Daily ticagrelor 90 mg oral tablet, 90 mg= 1 tab(s), Oral, BID work excuse, 0 Home albuterol, Not taking cyclobenzaprine 10 mg Tab gabapentin 300 mg Cap Percocet 325 mg-5 mg Tab Percocet 5 mg-325 mg oral tablet With When Contact Information Rebekah RODNEY, Denise Valdez 09/29/2023 02:45 PM EST [address], [place] Additional Instructions: KATIE SALGUERO 09/06/2023 02:30 PM EST [address], [facility] [address] [place] [address]- Business (1) Additional Instructions: Cardiac Rehabilitation Acute Coronary Syndrome Extracted from: Title:Progress/SOAP Note Author:Earl SERRANO MD Date:08/31/23 1. STEMI (ST elevation myoca rdial infarction) (I21.3: ST elevation (STEMI) myocardial infarction of unspecified site) Patient presented with acute anterior wall myocardial infarction requiring emergent cardiac catheterization and angioplasty and stenting to the LAD. Patient complains of some minimal shortness of breath although this may be secondary to his Brilinta. Patient did have evidence of LV dysfunction both on catheterization and confirmed on echocardiogram with an EF of 40 to 45%. The patient also had elevated LVEDP. There are no other lesions that require further evaluation. Patient will continue his baby aspirin, Brilinta, losartan was started yesterday for afterload reduction and he will continue his Coreg. We will discontinue his lisinopril. He will continue high-dose Lipitor therapy and repeat lipid profile in 6 weeks time. The patient may be discharged home and follow-up with Dr. Putnam in 2 to 4 weeks time. The patient will be enrolled in cardiac rehab and repeat echocardiogram in 3 to 4 months to determine if his LV function has normalized. Recommend starting low-dose Lasix 20 mg p.o. daily to assist with his elevated LVEDP and LV dysfunction and his shortness of breath. 2. Tobacco abuse (Z72.0: Tobacco use) 3. HTN (hypertension) (I10: Essential (primary) hypertension) 4. HLD (hyperlipidemia) (E78.5: Hyperlipidemia, unspecified) 5. Chronic back pain (M54.9: Dorsalgia, unspecified) 6. Asthma (J45.909: Unspecified asthma, uncomplicated) 7. Neuropathy (G62.9: Polyneuropathy, unspecified) Other chronic pain (G89.29: Other chronic pain) Orders: atorvastatin, 80 mg = 2 tab(s), Tab, Oral, Bedtime, Routine, Start date 08/30/23 21:00:00 EST, 08/30/23 7:48:00 EST losartan, 25 mg = 0.5 tab(s), Tab, Oral, Daily, Routine, Start date 08/30/23 9:00:00 EST, 08/30/23 7:47:00 EST Extracted from: Title:APSO Note Author:Durga Thompson DO e:08/30/23 1. STEMI (ST elevation myoca rdial infarction) (I21.3: ST elevation (STEMI) myocardial infarction of unspecified site) Patient had cardiac cath 08/29 showing occluded LAD with PCI Cardiology consulted and following patient, did discuss care with cardio in detail Aspirin 81 mg daily, Brilinta 90 mg twice daily, statin 80 mg daily, coreg 3.125 twice daily, losartan 25 mg daily Echo 08/30 Telemetry, routine EKGs Cardiac diet Zofran as needed Cardiology would like to monitor patient on telemetry for another 24 hours. Ordered: [facility] Hospital Care/Day High 50 Minutes [id number] 2. Tobacco abuse (Z72.0: Tobacco use) Educate patient on tobacco sensation 3. HTN (hypertension) (I10: Essential (primary) hypertension) Monitor Continue Coreg 3.125, losartan 25 4. HLD (hyperlipidemia) (E78.5: Hyperlipidemia, unspecified) statin 5. Chronic back pain (M54.9: Dorsalgia, unspecified) Patient normally takes Percocet at home as needed We will have as needed morphine available instead at this time 6. Asthma (J45.909: Unspecified asthma, uncomplicated) Incentive spirometer DuoNebs as needed 7. Neuropathy (G62.9: Polyneuropathy, unspecified) Gabapentin Other chronic pain (G89.29: Other chronic pain) Orders: acetaminophen, 650 mg = 2 tab(s), Tab, Oral, q6hr PRN Pain, Routine, Start date 08/29/23 18:36:00 EST, 08/29/23 18:36:00 EST albuterol-ipratropium, 3 mL, Soln-Inh, Inhalation, QID PRN Shortness of breath or wheezing, STAT, Start date 08/29/23 18:36:00 EST aspirin, 81 mg = 1 tab(s), Tab-EC, Oral, Daily, Routine, Start date 08/30/23 9:00:00 EST gabapentin, 900 mg = 3 cap(s), Cap, Oral, TID, Routine, Start date 08/29/23 22:00:00 EST Ambulate with Assistance Basic Metabolic Panel Basic Metabolic Panel Below the Knee Intermittent Pneumatic Compression Device Cardiac Diet Cardiac Diet Cardiac Monitoring CBC w/ Auto Diff eGFR Extra Blue Tube Extra Lav Tube Extra SST Tube Intake and Output Place in Status Pulse Oximetry Referral to Resource Center Resuscitation Status - Full Troponin Vital Signs Weight Extracted from: Title:Progress/SOAP Note Author:Earl SERRANO MD Date:08/30/23 1. STEMI (ST elevation myoca rdial infarction) (I21.3: ST elevation (STEMI) myocardial infarction of unspecified site) Patient presented with acute anterior wall myocardial infarction underwent emergent cardiac catheterization angioplasty and stenting of his mid LAD with nonobstructive disease of his left circumflex and right coronary artery. LVEF was 45-50%, and echocardiogram is pending. Patient will continue his aspirin, Brilinta, and Coreg, and we will start the patient on Lipitor 80 mg p.o. nightly and Cozaar 25 mg p.o. daily for hypertension and afterload reduction. Patient undergo a 2D echo with Doppler today to document his LV function and repeat echocardiogram in 3 to 4 months time after cardiac rehab has been completed. Recommended the patient to discontinue all alcohol and tobacco products. Continue telemetry for 1 more day. 2. Tobacco abuse (Z72.0: Tobacco use) 3. HTN (hypertension) (I10: Essential (primary) hypertension) 4. HLD (hyperlipidemia) (E78.5: Hyperlipidemia, unspecified) 5. Chronic back pain (M54.9: Dorsalgia, unspecified) 6. Asthma (J45.909: Unspecified asthma, uncomplicated) 7. Neuropathy (G62.9: Polyneuropathy, unspecified) Other chronic pain (G89.29: Other chronic pain) Extracted from: Title:Admission H & P Author:Durga Thompson DO Date:08/29/23 All imaging, labs, EKGs were reviewed Patient will be admitted under inpatient status due to length of stay estimated length greater than 2 midnights. DVT PPx PAS bilaterally Diet cardiac CODE STATUS full code 1. STEMI (ST elevation myocardial infarction) (I21.3: ST elevation (STEMI) myocardial infarction of unspecified site) Patient had cardiac cath 08/29 showing occluded LAD with PCI Cardiology consulted and following patient Aspirin Brilinta, statin Echo 08/30 Monitoring, routine EKGs Cardiac diet Ordered: Initial Hospital Care/Day High 75 Minutes 34928 2. Tobacco abuse (Z72.0: Tobacco use) Educate patient on tobacco sensation 3. HTN (hypertension) (I10: Essential (primary) hypertension) Monitor Patient takes lisinopril as well as atenolol at home We will hold home medications until tomorrow to make sure blood pressure stable appears patient takes clonidine twice a day will also hold unless needed Patient will likely need beta-alfonzo added as well will await cardiac recommendations 4. HLD (hyperlipidemia) (E78.5: Hyperlipidemia, unspecified) 40 mg atorvastatin 5. Chronic back pain (M54.9: Dorsalgia, unspecified) Patient normally takes Percocet at home as needed We will have as needed morphine available instead at this time 6. Asthma (J45.909: Unspecified asthma, uncomplicated) Incentive spirometer DuoNebs as needed 7. Neuropathy (G62.9: Polyneuropathy, unspecified) Gabapentin Other chronic pain (G89.29: Other chronic pain) Orders: acetaminophen, 650 mg = 2 tab(s), Tab, Oral, q6hr PRN Pain, Routine, Start date 08/29/23 18:36:00 EST, 08/29/23 18:36:00 EST albuterol-ipratropium, 3 mL, Soln-Inh, Inhalation, QID PRN Shortness of breath or wheezing, STAT, Start date 08/29/23 18:36:00 EST aspirin, 81 mg = 1 tab(s), Tab-EC, Oral, Daily, Routine, Start date 08/30/23 9:00:00 EST gabapentin, 900 mg = 3 cap(s), Cap, Oral, TID, Routine, Start date 08/29/23 22:00:00 EST, 08/29/23 18:49:00 EST morphine, 2 mg = 1 mL, Injection, IV Push, q4hr PRN Pain for 5 day(s), Stop date 09/03/23 18:35:00 EST, Routine, Start date 08/29/23 18:36:00 EST Ambulate with Assistance Basic Metabolic Panel Basic Metabolic Panel Below the Knee Intermittent Pneumatic Compression Device Cardiac Diet Cardiac Diet Cardiac Monitoring CBC w/ Auto Diff CBC w/ Auto Diff Echo Transthoracic Complete Incentive Spirometry Intake and Output Magnesium Level Place in Status Pulse Oximetry Resuscitation Status - Full Vital Signs Weight Extracted from: Title:Procedure Note Heart & Vascular Author:Jose Juan lacey MD, Denise Valdez Date:08/29/23 1. STEMI (ST elevation myocardial infarction) (I21.3: ST elevation (STEMI) myocardial infarction of unspecified site) 2. Tobacco abuse (Z72.0: Tobacco use) 3. HTN (hypertension) (I10: Essential (primary) hypertension) 4. HLD (hyperlipidemia) (E78.5: Hyperlipidemia, unspecified) 5. Chronic back pain (M54.9: Dorsalgia, unspecified) 6. Asthma (J45.909: Unspecified asthma, uncomplicated) 7. Neuropathy (G62.9: Polyneuropathy, unspecified) Other chronic pain (G89.29: Other chronic pain) Orders: ticagrelor, 90 mg = 1 tab(s), Tab, Oral, Once, Stop date 08/29/23 18:00:00 EST, Routine, Start date 08/29/23 18:00:00 EST ECG 12 Lead Adult Extracted from: Title:Consult Note Author:Rebekah RODNEY, [place] Valdez Date:08/29/23 43-year-old male with histor y of CAD and abnormal CT angio with negative CT FFR. Remote atypical chest pain as part of a more broad pain syndrome and does now have a pain implant in his back. Now clear-cut ST elevation and anterior STEMI with primary PCI of the LAD with MARLY x1. Will need DAPT, statin, beta-alfonzo, EVELYN. Echo tomorrow. Thank you for the consult 1. STEMI (ST elevation myocardial infarction) (I21.3: ST elevation (STEMI) myocardial infarction of unspecified site) 2. Tobacco abuse (Z72.0: Tobacco use) 3. HTN (hypertension) (I10: Essential (primary) hypertension) 4. HLD (hyperlipidemia) (E78.5: Hyperlipidemia, unspecified) 5. Chronic back pain (M54.9: Dorsalgia, unspecified) 6. Asthma (J45.909: Unspecified asthma, uncomplicated) 7. Neuropathy (G62.9: Polyneuropathy, unspecified) Other chronic pain (G89.29: Other chronic pain) Orders: ticagrelor, 90 mg = 1 tab(s), Tab, Oral, Once, Stop date 08/29/23 18:00:00 EST, Routine, Start date 08/29/23 18:00:00 EST ECG 12 Lead Adult Extracted from: Title:ED Note Author:Kevin Peñaloza PA-C te:08/29/23 1. STEMI (ST elevation myoca rdial infarction) (I21.3: ST elevation (STEMI) myocardial infarction of unspecified site) Orders: heparin, 5,000 unit(s) = 1 mL, Injection, IV Push, Once, Stop date 08/29/23 16:27:00 EST, STAT, Start date 08/29/23 16:27:00 EST morphine, 4 mg = 1 mL, Injection, IV Push, Once, Stop date 08/29/23 16:26:00 EST, STAT, Start date 08/29/23 16:26:00 EST, 08/29/23 16:26:00 EST nitroglycerin, 0.4 mg = 1 tab(s), Tab, SubLingual, Once, Stop date 08/29/23 16:26:00 EST, STAT, Start date 08/29/23 16:26:00 EST, 08/29/23 16:26:00 EST ondansetron, 4 mg = 2 mL, Injection, IV Push, Once, Stop date 08/29/23 16:26:00 EST, STAT, Start date 08/29/23 16:26:00 EST, 08/29/23 16:26:00 EST Sodium Chloride 0.9% intravenous solution 1,000 mL, 1,000 mL, IV, KVO, STAT, Start date 08/29/23 16:27:00 EST, Total volume (mL): 1,000 Basic Metabolic Panel CBC w/ Auto Diff Communication Order Communication Order CV Cardiovascular CV Coronary IVUS FFR Initial CV Coronary IVUS Initial ED Cardiac Monitoring Oxygen Therapy Place in Status PT & PTT Troponin 0 Hr. Troponin 3 Hr. Troponin 6 Hr. Troponin 9 Hr. XR Chest Single View Future Appointments Appointment Date:09/29/2023 02:45:00 PM Scheduled Provider:Rebekah RODNEY, Denise Valdez Location:[facility] Appointment Type:Cardiology Inpatient Follow Up ([facility]) [facility]11-22-2023 Hospital Discharge instructions Patient Education 08/31/2023 08:16:59 Cardiac Rehabilitation Cardiac Rehabilitation What is cardiac rehabilitation? Cardiac rehabilitation is a treatment program that helps improve the health and well-being of people who have heart problems. Cardiac rehabilitation includes exercise training, education, and counseling to help you get stronger and return to an active lifestyle. This program can help you get betterfaster and reduce any future hospital stays. Why might I need cardiac rehabilitation? Cardiac rehabilitation programs can help when you have or have had: A heart attack. Heart failure. Peripheral artery disease. Coronary artery disease. Angina. Lung or breathing problems. Cardiac rehabilitation programs are also used when you have had: Coronary artery bypass graft surgery. Heart valve replacement. Heart stent placement. Heart transplant. Aneurysm repair. What are the benefits of cardiac rehabilitation? Cardiac rehabilitation can help you: Reduce problems like chest pain and trouble breathing. Change risk factors that contribute to heart disease, such as: ?Smoking. ?High blood pressure. ?High cholesterol. ?Diabetes. ?Being inactive. ?Weighing over 30% more than your ideal weight. ?Diet. Improve your emotional outlook so you feel: ?More hopeful. ?Better about yourself. ?More confident about taking care of yourself. Get support from health experts as well as other people with similar problems. Learn healthy ways to manage stress. Learn how to manage and understand your medicines. Teach your family about your condition and how to participate in your recovery. What happens in cardiac rehabilitation? You will be assessed by a cardiac rehabilitation team. They will check your health history and do aphysical exam. You may need blood tests, exercise stress tests, and other evaluations to make sure that you are ready to start cardiac rehabilitation. The cardiac rehabilitation team works with you to make a plan based on your health and goals. Your program will be tailored to fit you and your needs and may change as you progress. You may work witha health care team that includes: Doctors. Nurses. Dietitians. Psychologists. Exercise specialists. Physical and occupational therapists. What are the phases of cardiac rehabilitation? A cardiac rehabilitation program is often divided into phases. You advance from one phase to the next. Phase 1 This phase starts while you are still in the hospital. You may: Start by walking in your room and then in the miranda. Do some simple exercises with a therapist. Phase 2 This phase begins when you go home or to another facility. You will travel to a cardiac rehabilitation center or another place where rehabilitation is offered. This phase may last 8 12 weeks. During this phase: You will slowly increase your activity level while being closely watched by a nurse or therapist. You will have medical tests and exams to monitor your progress. Your exercises may include strength or resistance training along with activities that cause your heart to beat faster (aerobic exercises), such as walking on a treadmill. Your condition will determine how often and how long these sessions last. You may learn how to: ?Cook heart-healthy meals. ?Control your blood sugar, if this applies. ?Stop smoking. ?Manage your medicines. You may need help with scheduling or planning how and when to take your medicines. If you have questions about your medicines, it is very important that you talk with your health care provider. Phase 3 This phase continues for the rest of your life. In this phase: There will be less supervision. You may continue to participate in cardiac rehabilitation activities or become part of a group in your community. You may benefit from talking about your experience with other people who are facing similar challenges. Follow these instructions at home: Take vptp-vvh-djvmtvy and prescription medicines only as told by your health care provider. Keep all follow-up visits as told by your health care provider. This is important. Get help right away if: You have severe chest discomfort, especially if the pain is crushing or pressure-like and spreads to your arms, back, neck, or jaw. Do not wait to see if the pain will go away. You have weakness or numbness in your face, arms, or legs, especially on one side of the body. Your speech is slurred. You are confused. You have a sudden, severe headache or loss of vision. You have shortness of breath. You are sweating and have nausea. You feel dizzy or faint. You are fatigued. These symptoms may represent a serious problem that is an emergency. Do not wait to see if the symptoms will go away. Get medical help right away. Call your local emergency services (911 in the [place] Do not drive yourself to the hospital. Summary Cardiac rehabilitation is a treatment program that helps improve the health and well-being of people who have heart problems. A cardiac rehabilitation program is often divided into phases. You advance from one phase to the next. The cardiac rehabilitation team works with you to make a plan based on your health and goals. Cardiac rehabilitation includes exercise training, education, and counseling to help you get stronger and return to an active lifestyle. This information is not intended to replace advice given to you by your health care provider. Make sure you discuss any questions you have with your health care provider. Document Revised: 01/26/2022 Document Reviewed: 01/26/2022 [employer] Patient Education 2022 [employer]. 08/31/2023 08:16:56 Acute Coronary Syndrome Acute Coronary Syndrome Acute coronary syndrome (ACS) is a serious problem in which there is suddenly not enough blood and oxygen reaching the heart. ACS can result in chest pain or a heart attack. This condition is a medical emergency. If you have any symptoms of this condition, get help right away. What are the causes? This condition may be caused by: Atherosclerosis, which is a buildup of fat and cholesterol inside the arteries. This is the most common cause. The buildup (plaque) can cause blood vessels in the heart (coronary arteries) to become narrow or blocked, reducing blood flow to the heart. Plaque can also break off and lead to a clot, which can block an artery and cause a heart attack or stroke. Sudden tightening of the muscles around the coronary arteries. This is called a coronary spasm. Tearing of a coronary artery (spontaneous coronary artery dissection). Very low blood pressure (hypotension). An abnormal heartbeat (arrhythmia). Other medical conditions that cause a decrease of oxygen to the heart, such as anemiaorrespiratory failure. Using drugs such as cocaine or methamphetamine. What increases the risk? The following factors may make you more likely to develop this condition: Age. The risk for ACS increases as you get older. Personal or family history of chest pain, heart attack, peripheral vascular disease, or stroke. Having taken chemotherapy or immune-suppressing medicines. Being male. Being overweight. Having any of these conditions: ?High cholesterol. ?High blood pressure (hypertension). ?Diabetes. Lifestyle choices such as: ?Excessive alcohol use. ?Not exercising enough. ?Smoking. What are the signs or symptoms? Common symptoms of this condition include: Chest pain. The pain may last a long time, or it may stop and come back (recur). It may feel like: ?Crushing or squeezing. ?Tightness, pressure, fullness, or heaviness. Arm, neck, jaw, or back pain. Heartburn or indigestion. Shortness of breath. Nausea. Sudden cold sweats. Light-headedness, dizziness, or passing out. Tiredness (fatigue). Sometimes there are no symptoms. How is this diagnosed? This condition may be diagnosed based on: Your medical history and symptoms. Imaging tests, such as: ?An electrocardiogram (ECG). This measures the heart's electrical activity. ?CT scan. ?A coronary angiogram. For this test, dye is injected into the heart arteries and then X-rays are taken. ?Echocardiogram. This is a test that uses sound waves to produce detailed images of the heart. Blood tests to check for cardiac markers. These chemicals are released by a damaged heart muscle. These tests may be repeated at certain time intervals. Exercise stress testing. How is this treated? Treatment for this condition may include: Medicines, such as: ?Antiplatelet medicines that help prevent blood clots, such as aspirin or clopidogrel. ?Medicine that dissolves any blood clots (fibrinolytic therapy). ?Blood pressure medicines. ?Nitroglycerin. This helps widen blood vessels to improve blood flow. ?Pain medicine. ?Cholesterol-lowering medicine such as statins. Surgery, such as: ?Coronary angioplasty with stent placement. This involves placing a small mesh tube (stent) into a narrow coronary artery. This widens the artery and keeps it open. ?Coronary artery bypass surgery. This involves taking a section of a blood vessel from a different part of your body and placing it on the blocked coronary artery to allow blood to flow around the blockage. Cardiac rehabilitation. This is a program that includes exercise training, education, and counseling to help you recover. Follow these instructions at home: Medicines Take odtf-hkm-agccrej and prescription medicines only as told by your health care provider. Do not take these medicines unless your health care provider approves: ?Any vitamins or supplements. ?NSAIDs, such as ibuprofen, naproxen, or celecoxib. ?Hormone replacement therapy that contains estrogen. If you are taking blood thinners: ?Talk with your health care provider before you take any medicines that contain aspirin or NSAIDs. These medicines increase your risk for dangerous bleeding. ?Take your medicine exactly as told, at the same time every day. ?Avoid activities that could cause injury or bruising, and follow instructions about how to preventfalls. ?Wear a medical alert bracelet or carry a card that lists what medicines you take. Eating and drinking Eat a heart-healthy diet that includes whole grains, fruits and vegetables, lean proteins, and low-fat or nonfat dairy products. Limit how much salt (sodium) you eat as told by your health care provider. Follow instructions fromyour health care provider about any other eating or drinking restrictions, such as limiting foods that are high in fat and processed sugars. Use healthy cooking methods such as roasting, grilling, broiling, baking, poaching, steaming, or stir-frying. Work with a dietitian to follow a heart-healthy eating plan. Activity Follow your cardiac rehabilitation program. Do exercises as told by your physical therapist. Ask your health care provider what activities and exercises are safe for you. Follow his or her instructions about lifting, driving, or climbing stairs. Lifestyle Do not use any products that contain nicotine or tobacco. These products include cigarettes, chewing tobacco, and vaping devices, such as e-cigarettes. If you need help quitting, ask your health careprovider. Do not drink alcohol if: ?Your health care provider tells you not to drink. ?You are , may be , or are planning to become . If you drink alcohol: ?Limit how much you have to: ?0 1 drink a day for women. ? 0 2 drinks a day for men. ?Know how much alcohol is in your drink. In the [place] one drink equals one 12 oz bottle of beer (355 mL), one 5 oz glass of wine (148 mL), or one 1 oz glass of hard liquor (44 mL). Maintain a healthy weight. If you need to lose weight, work with your health care provider to do sosafely. General instructions Tell all the health care providers who provide care for you about your heart condition, including your dentist. This may affect the medicines or treatment you receive. Manage any other health conditions you have, such as hypertension or diabetes. These conditions affect your heart. Pay attention to your mental health. You may be at higher risk for depression. ?Find ways to manage stress. ?Talk to your health care provider about depression screening and treatment. Keep your vaccinations up to date. ?Get the flu shot (influenza vaccine) every year. ?Get the pneumococcal vaccine if you are age 65 or older. If directed, monitor your blood pressure at home. Keep all follow-up visits. This is important. Contact a health care provider if: You feel overwhelmed or sad. You have trouble doing your daily activities. You have dark stools or blood in your stool. You have sudden light-headedness or dizziness. Get help right away if: You have pain in your chest, neck, arm, jaw, stomach, or back that recurs, and: ?It lasts for more than a few minutes. ?It is not relieved by taking the medicineyour health care provider prescribed. You have unexplained: ?Heavy sweating. ?Heartburn or indigestion. ?Nausea or vomiting. ?Shortness of breath. ?Difficulty breathing. ?Nervousness or anxiety. ?Weakness. You have blood pressure that is higher than 180/120. You faint. These symptoms may represent a serious problem that is an emergency. Do not wait to see if the symptoms will go away. Get medical help right away. Call your local emergency services (911 in the [place] Do not drive yourself to the hospital. Summary Acute coronary syndrome (ACS) is when there is not enough blood and oxygen being supplied to the heart. ACS can result in chest pain or a heart attack. Treatment includes medicines and procedures to open the blocked arteries and restore blood flow. Acute coronary syndrome is a medical emergency. Get help right away if you have sudden pain in yourchest, arms, back, neck, jaw, or upper body. Seek help if you have unexplained nausea, vomiting, orshortness of breath. This information is not intended to replace advice given to you by your health care provider. Make sure you discuss any questions you have with your health care provider. Document Revised: 03/18/2022 Document Reviewed: 03/18/2022 [employer] Patient Education 2022 [employer]. Follow Up Care 08/29/2023 16:25:37 With:Rebekah RODNEY, Denise Valdez Address: [address] [place] [address] When:09/29/2023 14:45:00 With:KATIE SALGUERO Address: [facility] [address] , [address] [address] [facility] (1) When:09/06/2023 14:30:00 [facility]11-22-2023 NoteAdmission and Discharge Information Admit Date/Time:08/29/2023 18:36 Admitting Physician - Durga Thopmson DO Consulting Physician - Frank SERRANO MD Admitting Diagnoses: Discharge Order Date Discharge Patient - Ordered -- 08/31/23 9:35:00 EST Discharge Diagnoses 1. STEMI (ST elevation myocardial infarction), 08/29/2023 2. Tobacco abuse, 08/29/2023 3. HTN (hypertension), 08/29/2023 4. HLD (hyperlipidemia), 08/29/2023 5. Chronic back pain, 08/29/2023 6. Asthma, 08/29/2023 7. Neuropathy, 08/29/2023 Other chronic pain, 08/29/2023 Procedure History PCI - Percutaneous coronary intervention (08/29/2023), Discectomy (10/10/2017), Discectomy (11/10/2016), Discectomy (10/10/2015). Hospital Course 43-year-old male with past medical history of asthma, hypertension, chronic pain, neuropathy, HLD presented to ER on 08/29 due to worsening chest pain with episode starting the prior previous night. Patient states 08/28 he had sudden onset of chest pain but was relieved with albuterol treatment. Patient states he then had mild chest pain throughout the day and went to work however chest pain got worse and once he was home needed to call the squad to come. In ER patient was found to have acute STEMI, code STEMI was called and patient was taken to [facility]. In [facility] patient found to have occluded LAD and stent was placed. Patient was monitored in ICU for a day. Patient was then monitored for another 24 hours on telemetry to make sure no arrhythmias occurred which they did not. Was very anxious to leave throughout stay. Cardiology followed patient throughoutstay. Patient did have mild episode of shortness of breath which was thought to be secondary to smoking as well as new addition of Brilinta. Repeat echo Showed EF of 40 to 45%, a apical anterior wall akinesis, mild anterior wall severe hypokinesis, RVSP of 27 mmHg. Patient had several medication changes as noted below. Patient to follow-up with Dr. Welchin 2 to 4 weeks. Patient to have repeat echo in 4 to 6 weeks. Patient to undergo cardiac rehab. 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 Patient stable at discharge. Medication changes Discontinued clonidine, lisinopril, atenolol, rosuvastatin Added aspirin 81 mg a day Brilinta 90 mg twice daily Losartan 25 mg once a day Lasix 20 mg milligrams once a day Coreg 3.125 mg twice daily Atorvastatin 80 mg daily Follow-up PCP as needed Dr. Welch in 2 to 4 weeks Charge time was approximately 33 minutes which included extensive discussion with patient as well as about diagnosis and treatment and follow-up as well as communication with technology methodology consultant, nursing, case management. Physical Exam Vitals & Measurements T: 36.8 ?C(Oral) TMIN: 36.3 ?C(Oral) TMAX: 37 ?C(Oral) HR: 80(Monitored) RR: 16 BP: 138/96 SpO2: 96% WT: 78.1 kg General: Looks well, no acute distress, well-nourished, well-kept Skin: Warm, dry Head: No trauma, normocephalic Neck: Trachea midline, supple, negative for JVD Eye: Conjunctive are clear, clear sclera , EOMI ENMT: oral mucosa moist, no lesions or edema nose or external ears Cardiovascular: Regular rate and rhythm, S1-S2 present, negative for murmurs rubs or gallops Respiratory: Lungs clear to auscultation, bilateral symmetric movement, negative for wheezes rales or rhonchi Chest wall: no deformity. Gastrointestinal: Abdomen soft, nontender to palpation, bowel sounds present Back: No tenderness Extremities: Range of motion intact, no edema Neurological: awake, alert, speech normal, cranial nerves II through XII intact, no sensory defects, alert and oriented x3 Psychiatric: cooperative, affect appropriate for age, pleasant Laboratory Results Automated Diff (08/31/2023) Neutro Auto - 60.3 % Lymph Auto - 30.8 % [place] Auto - 6.9 % Eos Auto - 0.9 % Basophil Auto - 1.1 % Neutro Absolute - 6.2 E9/L Lymph Absolute - 3.2 E9/L [place] Absolute - 0.7 E9/L Eos Absolute - 0.1 E9/L Basophil Absolute - 0.1 E9/L Basic Metabolic Panel (08/30/2023) Glucose Lvl - 153 mg/dL BUN - 8 mg/dL Creatinine - 1.0 mg/dL BUN/Creat Ratio - 8 Sodium Lvl - 137 mmol/L Potassium Lvl - 4.0 mmol/L Chloride - 102 mmol/L CO2 - 22 mmol/L AGAP - 17 mEq/L Calcium Lvl - 9.9 mg/dL BMP (08/31/2023) Glucose Lvl - 103 mg/dL BUN - 16 mg/dL Creatinine - 1.3 mg/dL BUN/Creat Ratio - 12 Sodium Lvl - 139 mmol/L Potassium Lvl - 4.0 mmol/L Chloride - 107 mmol/L CO2 - 23 mmol/L AGAP - 13 mEq/L Calcium Lvl - 9.4 mg/dL CBC w/ Auto Diff (08/31/2023) WBC - 10.3 E9/L RBC - 5.5 E12/L Hgb - 15.5 gm/dL Hct - 45.7 % MCV - 83.8 fL MCH - 28.4 pg MCHC - 33.9 gm/dL RDW - 14.8 % Platelet - 270.0 E9/L MPV - 7.9 fL CBC w/ Indices (08/30/2023) WBC - 15.4 E9/L RBC - 6.1 E12/L Hgb - 17.5 gm/dL Hct - 51.5 % MCV - 83.9 fL MCH - 28.6 pg MCHC - 34.0 gm/dL RDW - 14.5 % Platelet - 310.0 E9/L MPV - 8.2 fL eGFR (08/31/2023) eGFR - (more content not included)...[facility] CenterComment [facility] above:Result Comment: Electronically Signed By: Durga Thompson DO.br\Date and Time Signed: 08/31/23 09:58 [id number] NoteEchocardiology Procedure Exam Date/Time Accession # Ordering Echo Transthoracic 08/30/2023 10:50 EST [id number] Rebekah RODNEY, Denise Valdez CPT code [id number] Reason for Exam (Echo Transthoracic Complete) CAD Coronary artery disease Report [facility] [address] [place] [address] Adult Echocardiogram Report Name: DENISE LANTIGUA Study Date: 08/30/2023 10:18 AM BP: 141/ mmHg Patient Location: [address] [place] [address] HR: 75 : 1980 Gender: Male Height: 69 in Age: 43 yrs Ethnicity: [facility] Weight: 170 lb Reason For Study: CAD Coronary artery disease BSA: 1.9 m2 History: HTN,Smoker-Yes Ordering Physician: Rebekah^Denise^José Miguel Performed By: Ebony Cuello RDCS Interpretation Summary No comparison study is available. Ejection Fraction = 40-45%. There is apical anterior wall akinesis There is mid anterior wall severe hypokinesis Grade I diastolic dysfunction, (abnormal relaxation pattern). Right ventricular systolic pressure is 27 mmHg. Procedure A complete two-dimensional transthoracic echocardiogram was performed (2D, M- mode, spectral and color flow Doppler). Study quality is good. I WMSI = 1.63 % Normal = 63 Segments Size X - Cannot 2 - 1-2 small Interpret 1 - Normal Hypokinetic 3 - Akinetic 4 - Dyskinetic3-5 moderate 5 - Aneurysmal 6-14 large 15-16 diffuse Left Ventricle The left ventricle is normal in size. There is normal left ventricular wall thickness. Ejection Fraction = 40-45%. There Echocardiology Report is apical anterior wall akinesis. There is mid anterior wall severe hypokinesis. Grade I diastolic dysfunction, (abnormal relaxation pattern). Left Atrium The left atrial size is normal. Right Atrium Right atrial size is normal. Right Ventricle The right ventricular systolic function is normal. Aortic Valve The aortic valve is trileaflet. Mitral Valve Mitral valve structure is normal. Tricuspid Valve Structurally normal tricuspid valve. There is trace tricuspid regurgitation. Right ventricular systolic pressure is 27 mmHg. Pulmonic Valve The pulmonic valve is normal. Arteries The aortic root is normal in size. Venous The inferior vena cava is normal in size, and collapses normally with respiration. Effusion There is no pericardial effusion. MMode/2D Measurements & Calculations RVDd: 2.6 cm LVIDd: 4.0 cm FS: 45.2 % Ao root diam: 3.1 cm IVSd: 1.1 cm LVIDs: 2.2 cm EDV(Teich): 68.8 ml Ao root area: 7.3 cm2 LVPWd: 1.0 cm ESV(Teich): 15.7 ml LA dimension: 2.8 cm EF(Teich): 77.1 % asc Aorta Diam: 3.4 cm LVOT diam: 2.0 cm LVLd ap4: 8.4 cm EDV(MOD-sp2): 99.4 ml LVOT area: 3.0 cm2 EDV(MOD-sp4): 73.5 ml ESV(MOD-sp2): 53.2 ml LVLs ap4: 7.6 cm EF(MOD-sp2): 46.5 % ESV(MOD-sp4): 38.6 ml EF(MOD-sp4): 47.5 % SV(MOD-sp4): 34.9 ml TAPSE: 1.8 cm IVC Diam: 1.5 cm RVIDd/LVIDd: 0.64 EF (MOD-bp): 47.9 % LA Vol Index: 13.1 ml/m2 Doppler Measurements & Calculations Echocardiology Report MV E max roland: 62.7 cm/sec MV dec time: 0.18 sec Ao V2 max: 139.0 cm/sec LV V1 max P.2 mmHg MV A max roland: 80.5 cm/sec Ao max P.7 mmHg LV V1 max: 89.4 cm/sec MV E/A: 0.78 Lat Peak E' Roland: 7.9 cm/sec AARON(V,D): 1.9 cm2 E/E' Lat: 7.9 Med Peak E' Roland: 6.6 cm/sec E/E' Med: 9.4 TR max roland: 242.4 cm/sec RAP systole: 3.0 mmHg AV VR: 0.64 TR max P.5 mmHg RVSP(TR): 26.5 mmHg FINAL REPORT Dictated: 08/30/2023 10:18 am Frank SERRANO MD Signed (Electronic Signature): 08/30/2023 11:37 am Signed by: Frank SERRANO MD Transcribed by: BASSAM Technologist: [facility]11-20-2023 Note Procedure [facility] poss PCI via right radial for anterior STEMI Patient seen and examined. The risk/benefits of the procedure were thoroughly discussed with patient including specific attention to lack of onsite surgical backup and risk of sheri covid, and the patient agrees to proceed. Airway Assessment: Class I: Visualization of the soft palate, fauces, uvula, anterior and posteriorpillars Airway Abnormalities: none ASA Classification: ASA 2: Mild systemic disease Risks/Benefits of IV Sedation: Have been explained IV Sedation Plan: Patient agrees to IV sedation plan Assessment/Plan 1. STEMI (ST elevation myocardial infarction) (I21.3: ST elevation (STEMI) myocardial infarction ofunspecified site) 2. Tobacco abuse (Z72.0: Tobacco use) 3. HTN (hypertension) (I10: Essential (primary) hypertension) 4. HLD (hyperlipidemia) (E78.5: Hyperlipidemia, unspecified) 5. Chronic back pain (M54.9: Dorsalgia, unspecified) 6. Asthma (J45.909: Unspecified asthma, uncomplicated) 7. Neuropathy (G62.9: Polyneuropathy, unspecified) Other chronic pain (G89.29: Other chronic pain) Orders: ticagrelor, 90 mg = 1 tab(s), Tab, Oral, Once, Stop date 08/29/23 18:00:00 EST, Routine, Start date08/29/23 18:00:00 EST ECG [facility]Result Comment: Electronically Signed By: Rebekah RODNEY, Denise Valdez\.br\Date and Time Signed: 08/29/23 20:54 [id number] NoteChief Complaint STEMI Reason for Consultation STEMI History of Present Illness 43-year-old male with prior cardiac history of abnormal CT angio but negative CT FFR. Medically managed. Had been seen by me remotely and was slated for follow- up however did not make follow-up. Doeshave chronic pain syndrome and difficult to assess during back pain and chest pain but apparently has been having chest pain for some time. However the day prior to admission in the evening he started having shortness of breath and chest discomfort which was different than prior symptoms. It continued to wax and wane and then worsened on the day of admission. He came home from work and called theambulance which brought him to the hospital. [facility] [employer] [facility] was activated for STEMI alert from the field.Patient underwent primary PCI of the mid LAD with MARLY. Moderate ischemic cardiomyopathy EF 40 to 45%. Mildly elevated LVEDP. No significant disease elsewhere. Review of Systems Cannot assess ROS due to emergency Physical Exam Vitals & Measurements T: 36.6 ?C(Oral) TMIN: 36.3 ?C(Oral) TMAX: 36.8 ?C(Oral) HR: 98(Monitored) RR: 22 BP: 139/106 SpO2:99% HT: 172.72 cm WT: 76.5 kg General: alert, severe acute distress Skin: warm, dry intact Head: atraumatic, normocephalic Neck: Trachea midline, no JVD, no bruit Eye: normal conjunctiva, sclera clear ENMT: oral mucosa moist Cardiovascular: regular rate and rhythm, nomurmur normal peripheral perfusion Respiratory: Lungs CTA, respirations non labored Chest wall: no deformity. Gastrointestinal: soft, non distended, no tenderness, no guarding. Back: No tenderness, Normal ROM, Normal alignment. Extremities: no edema, no deformity, no trauma Neurological: oriented x 4, LOC appropriate for agesensation equal & normal bilaterally, speechnormal Psychiatric: cooperative, affect appropriate for age, normal judgement, normal psychiatric thoughts. Images EKG: Sinus rhythm with anterolateral STEMI Assessment/Plan 43-year-old male with history of CAD and abnormal CT angio with negative CT FFR. Remote atypical chest pain as part of a more broad pain syndrome and does now have a pain implant in his back. Now clear-cut ST elevation and anterior STEMI with primary PCI of the LAD with MARLY x1. Will need DAPT, statin, beta-alfonzo, EVELYN. Echo tomorrow. Thank you for the consult 1. STEMI (ST elevation myocardial infarction) (I21.3: ST elevation (STEMI) myocardial infarction ofunspecified site) 2. Tobacco abuse (Z72.0: Tobacco use) 3. HTN (hypertension) (I10: Essential (primary) hypertension) 4. HLD (hyperlipidemia) (E78.5: Hyperlipidemia, unspecified) 5. Chronic back pain (M54.9: Dorsalgia, unspecified) 6. Asthma (J45.909: Unspecified asthma, uncomplicated) 7. Neuropathy (G62.9: Polyneuropathy, unspecified) Other chronic pain (G89.29: Other chronic pain) Orders: ticagrelor, 90 mg = 1 tab(s), Tab, Oral, Once, Stop date 08/29/23 18:00:00 EST, Routine, Start date08/29/23 18:00:00 EST ECG 12 Lead Adult Problem List/Past Medical History Ongoing Smoker Historical No qualifying data Procedure/Surgical History PCI - Percutaneous coronary intervention (08/29/2023), Discectomy (10/10/2017), Discectomy (11/10/2016), Discectomy (10/10/2015). Medications Inpatient acetaminophen 325 mg Tab, 650 mg= 2 tab(s), Oral, q6hr, PRN aspirin 81 mg Oral EC Tab, 81 mg= 1 tab(s), Oral, Daily DuoNeb 2.5 mg-0.5 mg/3 mL Soln-Inh, 3 mL, Inhalation, QID, PRN gabapentin 300 mg Cap, 900 mg= 3 cap(s), Oral, TID morphine 2 mg/mL Inj, 2 mg= 1 mL, IV Push, q4hr, PRN Home albuterol, Not taking atenolol 100 mg Tab, 100 mg= 1 tab(s), Oral, Daily, Still taking, not as prescribed: Patient is unsure if he is still taking this medication cloNIDine 0.1 mg tab cyclobenzaprine 10 mg Tab gabapentin 300 mg Cap lisinopril 10 mg Tab Percocet 325 mg-5 mg Tab Percocet 5 mg-325 mg oral tablet rosuvastatin 20 mg Tab Allergies No Known Medication Allergies Social History Tobacco 4 or less cigarettes(less than 1/4 pack)/day in last 30 days Tobacco Use:., [facility]:Result Comment: Electronically Signed By: Rebekah RODNEY, Denise Valdez\.br\Date and Time Signed: 08/29/23 20:48 [id number] NoteChief Complaint STEMI History of Present Illness 43-year-old male with past medical history of asthma, hypertension, chronic pain, neuropathy, HLD presented to ER on 08/29 due to worsening chest pain with episode starting the prior previous night. Patient states 08/28 he had sudden onset of chest pain but was relieved with albuterol treatment. Patient states he then had mild chest pain throughout the day and went to work however chest pain got worse and once he was home needed to call the squad to come. In ER patient was found to have acute STEMI, code STEMI was called and patient was taken to [facility]. In [facility] patient found to have occluded LAD and stent was placed. Patient currently resting well in bed in ICU. Per cardiac nurses patient was mildly bradycardic after procedure. Patient has no chest pain complaints at this time. Patient denies any fever chills, shortness of breath, nausea vomiting diarrhea or other symptoms at thistime. Discussed CODE STATUS with patient and he would like to be full code. Patient states he smokes approximately half a pack to 1 pack of cigarettes a day denies alcohol use. 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 Review of Systems Scoring [place] Fall Risk Score: 55 High (08/29/23) Physical Exam Vitals & Measurements T: 36.8 ?C(Oral) HR: 80(Peripheral) RR: 24 BP: 176/115 SpO2: 100% HT: 175 cm WT: 83.7 kg General: Looks well, no acute distress, well-nourished, well-kept Skin: Warm, dry. Right radial catheterization site dressing clean dry and intact Head: No trauma, normocephalic Neck: Trachea midline, supple, negative for JVD Eye: Conjunctive are clear, clear sclera , EOMI ENMT: oral mucosa moist, no lesions or edema nose or external ears Cardiovascular: Regular rate and rhythm, S1-S2 present, negative for murmurs rubs or gallops Respiratory: Lungs clear to auscultation, bilateral symmetric movement, negative for wheezes rales or rhonchi Chest wall: no deformity. Gastrointestinal: Abdomen soft, nontender to palpation, bowel sounds present Back: No tenderness Extremities: Range of motion intact, no edema Neurological: awake, alert, speech normal, cranial nerves II through XII intact, no sensory defects, alert and oriented x3 Psychiatric: cooperative, affect appropriate for age, pleasant Lab Results WBC: 12.5 E9/L High (08/29/23 16:21:00) RBC: 5.4 E12/L (08/29/23 16:21:00) HGB: 15.1 gm/dL (08/29/23 16:21:00) Hct: 44.9 % (08/29/23 16:21:00) MCV: 83.2 fL (08/29/23 16:21:00) MCH: 28 pg (08/29/23 16:21:00) MCHC: 33.7 gm/dL (08/29/23 16:21:00) RDW: 14.7 % High (08/29/23 16:21:00) Platelet: 346 E9/L (08/29/23 16:21:00) MPV: 8.1 fL (08/29/23 16:21:00) Neutro Auto: 61.1 % (08/29/23 16:21:00) Lymph Auto: 32.5 % (08/29/23 16:21:00) [place] Auto: 4.6 % (08/29/23 16:21:00) Eos Auto: 0.9 % (08/29/23 16:21:00) Basophil Auto: 0.9 % (08/29/23 16:21:00) Neutro Absolute: 7.6 E9/L High (08/29/23 16:21:00) Lymph Absolute: 4.1 E9/L High (08/29/23 16:21:00) [place] Absolute: 0.6 E9/L (08/29/23 16:21:00) Eos Absolute: 0.1 E9/L (08/29/23 16:21:00) Basophil Absolute: 0.1 E9/L (08/29/23 16::00) PT: 11.5 second(s) (08/29/23 16:21:00) INR: 1 (08/29/23 16::00) PTT: 31.6 second(s) (08/29/23 16:21:00) Glucose Lvl: 145 mg/dL (08/29/23 16:21:00) BUN: 7 mg/dL (08/29/23 16:21:00) Creatinine: 1.1 mg/dL (08/29/23 16:21:00) eGFR: 84 mL/min/1.73 m2 (08/29/23 16::00) BUN/Creat Ratio: 6 Low (08/29/23 16::00) Sodium Lvl: 137 mmol/L (08/29/23 16:21:00) Potassium Lvl: 3.5 mmol/L (08/29/23 16:21:00) Chloride: 101 mmol/L (08/29/23 16::00) CO2: 23 mmol/L (08/29/23 16:21:00) AGAP: 17 mEq/L High (08/29/23 16:21:00) Calcium Lvl: 9.8 mg/dL (08/29/23 16:21:00) Troponin: 132.4 pg/mL Critical (08/29/23 16:21:00) Assessment/Plan All imaging, labs, EKGs were reviewed Patient will be admitted under inpatient status due to length of stay estimated length greater than2 midnights. DVT PPx?PAS bilaterally Diet?cardiac CODE STATUS?full code 1. STEMI (ST elevation myocardial infarction) (I21.3: ST elevation (STEMI) myocardial infarction ofunspecified site) Patient had cardiac cath 08/29 showing occluded LAD with PCI ? Cardiology consulted and following patient ? Aspirin Brilinta, statin ?Echo 08/30 ? Monitoring, routine EKGs ? Cardiac diet Ordered: Initial Hospital Care/Day High 75 Minutes [id number] 2. Tobacco abuse (Z72.0: Tobacco use) Educate patient on tobacco sensation 3. HTN (hypertension) (I10: Essential (primary) hypertension) Monitor Patient takes lisinopril as well as atenolol at home ? We will hold home medications until tomorrow to make sure blood pressure stable?appears patient takes clonidine twice a day will also hold unless needed ? Patient will likely need beta-alfonzo added as well will await cardiac recommendations 4. HLD (hyperlipidemia) (E78.5: Hyperlipidemia, unspecified) 40 mg atorvastatin 5. Chronic back pain (M54.9: Do (more content not included)...[facility] CenterComment on above:Result Comment: Electronically Signed By: Jay SHAW, Durga Villagomez\.anne\Date and Time Signed: 08/29/23 18:51 [id number] Evaluation note* Encounter Date Diagnosis Assessment Notes Treatment Notes Treatment Clinical Notes Aug, Other spondylosis with radiculopathy, lumbar region (ICD-10 - M47.26) Patient continues to voice some complaints of lumbar and gluteal pain. At this time he has a continued need for Percocet 5-325 mg up to three times daily as needed and Gabapentin 900 mg three times daily. Patient was again encouraged to try taking less of this medication as he starts to get more relief with the spinal cord stimulator. Opioid risk assessment was done, without concerns. OARRS was processed and reviewed, no discrepancies noted. Patient is compliant with their medications and reports no opioid related side effects. He is in agreement that this medication provides reasonable benefit in regard to his pain control and level of function allowing him to perform daily activities. A refill was provided today. Again, he was encouraged to continue to scale back and take this twice daily. We will follow up with the patient in one month, sooner if needed. Anatomy of spine discussed in detail with patient in regard to patients condition. Overall, patient believes their pain is reasonably well controlled, and he is in agreement with our treatment plan. Aug, Thoracic back pain (ICD-10 - M54.6) Aug, Chronic, continuous use of opioids (ICD-10 - F11.90) Aug, Chronic pain (ICD-10 - G89.29) Aug, Other Above note writ ten by Néstor Coyne MA, Receptionist Telephone Operator. Edited and approved by Dr. Shaquille Remy MD. [facility] Other 11-16-2023 Evaluation note* Encounter Date Diagnosis Assessment Notes Treatment Notes Treatment Clinical Notes Aug, Chronic, continuous use of opioids (ICD-10 - F11.90) [facility] Other 10-19-2023 Evaluation note* Encounter Date Diagnosis Assessment Notes Treatment Notes Treatment Clinical Notes Jul, Other spondylosis with radiculopathy, lumbar region (ICD-10 - M47.26) Patient continues to voice some complaints of lumbar and gluteal pain. At this time he has a continued need for Percocet 5-325 mg up to three times daily as needed and Gabapentin 900 mg three times daily. Patient was again encouraged to start taking less of this medication as he starts to get more relief with the spinal cord stimulator. Opioid risk assessment was done, without concerns. OARRS was processed and reviewed, no discrepancies noted. Patient is compliant with their medications and reports no opioid related side effects. He is in agreement that this medication provides reasonable benefit in regard to his pain control and level of function allowing him to perform daily activities. A refill was provided today. He was encouraged to continue to scale back and take this twice daily. We will follow up with the patient in one month, sooner if needed. Anatomy of spine discussed in detail with patient in regard to patients condition. Overall, patient believes their pain is reasonably well controlled, and he is in agreement with our treatment plan. Jul, Thoracic back pain (ICD-10 - M54.6) Jul, Chronic, continuous use of opioids (ICD-10 - F11.90) Jul, Chronic pain (ICD-10 - G89.29) Jul, Other Above note writ ten by Néstor Coyne MA, Receptionist Telephone Operator. Edited and approved by Dr. Shaquille Remy MD. [facility] Other 10-19-2023 Evaluation note* Encounter Date Diagnosis Assessment Notes Treatment Notes Treatment Clinical Notes Jul, Chronic, continuous use of opioids (ICD-10 - F11.90) [facility] Other 09-21-2023 Evaluation note* Encounter Date Diagnosis Assessment Notes Treatment Notes Treatment Clinical Notes Jun, Other spondylosis with radiculopathy, lumbar region (ICD-10 - M47.26) Patient continues to voice some complaints of lumbar and gluteal pain however his radiating symptoms have improved. At this time he has a continued need for Percocet 5-325 mg up to three times daily as needed and Gabapentin 900 mg three times daily. Patient was again encouraged to start taking less of this medication as he starts to get more relief with the spinal cord stimulator. Opioid risk assessment was done, without concerns. OARRS was processed and reviewed, no discrepancies noted. Patient is compliant with their medications and reports no opioid related side effects. He is in agreement that this medication provides reasonable benefit in regard to his pain control and level of function allowing him to perform daily activities. A refill was provided today. He was encouraged to continue to scale back and take this twice daily. We will follow up with the patient in one month, sooner if needed. Anatomy of spine discussed in detail with patient in regard to patients condition. Overall, patient believes their pain is reasonably well controlled, and he is in agreement with our treatment plan. Jun, Thoracic back pain (ICD-10 - M54.6) Jun, Chronic, continuous use of opioids (ICD-10 - F11.90) Jun, Chronic pain (ICD-10 - G89.29) Jun, Other Above note writ ten by Néstor Coyne MA, Receptionist Telephone Operator. Edited and approved by Dr. Shaquille Remy MD. [facility] Other 09-21-2023 Evaluation note* Encounter Date Diagnosis Assessment Notes Treatment Notes Treatment Clinical Notes Jun, Chronic, continuous use of opioids (ICD-10 - F11.90) [facility] Other 08-22-2023 Evaluation note* Encounter Date Diagnosis Assessment Notes Treatment Notes Treatment Clinical Notes May, Chronic, continuous use of opioids (ICD-10 - F11.90) [facility] Other 08-22-2023 Evaluation note* Encounter Date Diagnosis Assessment Notes Treatment Notes Treatment Clinical Notes May, Other spondylosis with radiculopathy, lumbar region (ICD-10 - M47.26) Patient continues to voice some complaints of lumbar pain radiating into his bilateral lower extremities. There is some concern of migration of the stimulator therefore we will order updated imaging. At this time he has a continued need for Percocet 5-325 mg up to three times daily as needed and Gabapentin 900 mg three times daily. Patient was again encouraged to start taking less of this medication as he starts to get more relief with the spinal cord stimulator. Opioid risk assessment was done, without concerns. OARRS was processed and reviewed, no discrepancies noted. Patient is compliant with their medications and reports no opioid related side effects. He is in agreement that this medication provides reasonable benefit in regard to his pain control and level of function allowing him to perform daily activities. A refill was provided today. He was encouraged to continue to scale back and take this twice daily. We will follow up with the patient in one month, sooner if needed. Anatomy of spine discussed in detail with patient in regard to patients condition. Overall, patient believes their pain is reasonably well controlled, and he is in agreement with our treatment plan. May, Spinal stenosis (ICD-10 - M48.00) May, Thoracic back pain (ICD-10 - M54.6) May, Chronic, continuous use of opioids (ICD-10 - F11.90) May, Chronic pain (ICD-10 - G89.29) May, Other Above note writ ten by Néstor Coyne MA, Receptionist Telephone Operator. Edited and approved by Dr. Shaquille Remy MD. [facility] Other 07-03-2023 Evaluation note* Encounter Date Diagnosis Assessment Notes Treatment Notes Treatment Clinical Notes Apr, Chronic, continuous use of opioids (ICD-10 - F11.90) [facility] Other 06-27-2023 Evaluation note* Encounter Date Diagnosis Assessment Notes Treatment Notes Treatment Clinical Notes Mar, Chronic, continuous use of opioids (ICD-10 - F11.90) [facility] Other 06-22-2023 Evaluation note* Encounter Date Diagnosis Assessment Notes Treatment Notes Treatment Clinical Notes Mar, Other spondylosis with radiculopathy, lumbar region (ICD-10 - M47.26) Patient continues to voice some complaints of lumbar pain radiating into his bilateral lower extremities, however he notes improvement with the spinal cord stimulator. At this time he has a continued need for Percocet 5-325 mg up to three times daily as needed and Gabapentin 900 mg three times daily. Patient was encouraged to start taking less of this medication as he starts to get more relief with the spinal cord stimulator. Opioid risk assessment was done, without concerns. OARRS was processed and reviewed, no discrepancies noted. Patient is compliant with their medications and reports no opioid related side effects. He is in agreement that this medication provides reasonable benefit in regard to his pain control and level of function allowing him to perform daily activities. A refill was provided today. We will follow up with the patient in one month, sooner if needed. Anatomy of spine discussed in detail with patient in regard to patients condition. Overall, patient believes their pain is reasonably well controlled, and he is in agreement with our treatment plan. Mar, Spinal stenosis (ICD-10 - M48.00) Mar, Chronic, continuous use of opioids (ICD-10 - F11.90) Mar, Chronic pain (ICD-10 - G89.29) Mar, Other Above note writ ten by Gabriel Grady LPN, Receptionist Telephone Operator. Edited and approved by Dr. Shaquille Remy MD. [facility] Other 06-22-2023 Evaluation note* Encounter Date Diagnosis Assessment Notes Treatment Notes Treatment Clinical Notes Mar, Chronic, continuous use of opioids (ICD-10 - F11.90) [facility] Other 04-27-2023 Evaluation note* Encounter Date Diagnosis Assessment Notes Treatment Notes Treatment Clinical Notes Jan, Chronic, continuous use of opioids (ICD-10 - F11.90) [facility] Other 04-18-2023 NotePROCEDURE DETAILS Preoperative Diagnosis: Postlaminectomy syndrome, lumbar region, M96.1 Postoperative Diagnosis: Postlaminectomy syndrome, lumbar region, M96.1 Surgeon: Damian Power Resident/Fellow/Other Bale Breaker Operator: Josh Fried Procedure: 1. REVISION OF SPINAL CORD STIMULATOR ELECTRODE Anesthesia: No anesthesiologist associated with this case Estimated Blood Loss: Less than 5 mL Findings: Electrode was in the soft tissue and the suture anchors had pulled through the bone Specimens(s) Collected: yes, Wound culture Implants: Reimplanted spinal electrode, [employer] Operative Report: The patient is approximately 6 weeks status post a laminectomy for insertion of spinal cord stimulator electrode and placement of a pulse generator over his right iliac crest. At 2 weeks following surgery he came to the office stating that the electrode was not working well. X-ray showed that the electrode had moved and it was only programmable at the very tip or distalmost aspect of the electrode. That that since has stopped working altogether. I presents today for reimplantation of his spinal electrode. Risks of infection, nerve injury, paralysis, failure of the electrode to work, possible need for additional surgery were explained to the patient. Patient was taken the operating room. Is placed under general anesthesia. Cefazolin was her perioperative antibiotic and was given preoperatively. He was turned into a knee-chest position and placed on the pro axis spine table. His back was prepped with ChloraPrep and he was sterilely draped. Timeout was taken to confirm patient, procedure, that antibiotics were given, his fire risk was assessed and allergy history was reviewed. The skin and the paraspinal muscles anesthetized with quarter percent Marcaine with epinephrine. The thoracic skin incision was made sharply. Blunt dissection was done through the fascia with a finger. The electrode was seen in the soft tissue. The thoracic lamina site was subperiosteally re-exposed. The prior laminotomy was explored. It was reopened with an angled curette. 2 mm Kerrison was used to remove any soft tissue. I then used a soft tissue dissector, radio opaque, over the dorsum of the spinal cord. The electrode was then replaced. AP fluorographic imaging was done showing us over the T7 and T6 vertebral body. The electrode was then reanchored with 2 sutured anchors and then suture was used to the spinous process and the 2 metal wires were attached to the spinous process. A final x-ray was done showing satisfactory placement of the electrode. The wound was irrigated. It was closed with 0 Vicryl for the dorsal fascia, 2-0 Vicryl for subcutaneous tissue, 3 oh strata fix subcu given the skin followed by skin glue and a dry dressing. Attestation: Note Completion: Attending AttestationI performed the procedure without a resident Electronic Signatures: Damian Power) (Signed 25-Jan-2023 15:54) Authored: Post-Operative Note, Chart Review, Note Completion Last Updated: 25-Jan-2023 15:54 by Damian Power)[facility] 01-25-2023 NoteHistory & Physical Reviewed: I have reviewed the History and Physical dated: 19-Jan-2023 History and Physical reviewed and relevant findings noted. Patient examined to review pertinent physical findings.: No significant changes Home Medications Reviewed: no changes noted Allergies Reviewed: no changes noted ERAS (Enhanced Recovery After Surgery): ERAS Patient: no Consent: COVID-19 Consent: COVID-19 Risk ConsentSurgeon has reviewed molina risks related to the risk of sheri COVID-19 and if they contract COVID-19 what the risks are. Electronic Signatures: Damian Power) (Signed 25-Jan-2023 13:21) Authored: History & Physical Reviewed, ERAS, Consent, Note Completion Last Updated: 25-Jan-2023 13:21 by Damian Power)[facility] 01-04-2023 Evaluation note* Encounter Date Diagnosis Assessment Notes Treatment Notes Treatment Clinical Notes Dec, Other spondylosis with radiculopathy, lumbar region (ICD-10 - M47.26) Patient continues to voice some complaints of lumbar pain radiating into his bilateral lower extremities, however he notes improvement with the spinal cord stimulator. At this time he has a continued need for Percocet 5-325 mg up to three times daily as needed and Gabapentin 900 mg three times daily. Patient was encouraged to start taking less of this medication as he starts to get more relief with the spinal cord stimulator. Opioid risk assessment was done, without concerns. OARRS was processed and reviewed, no discrepancies noted. Patient is compliant with their medications and reports no opioid related side effects. He is in agreement that this medication provides reasonable benefit in regard to his pain control and level of function allowing him to perform daily activities. A refill was provided today. Dec, Spinal stenosis (ICD-10 - M48.00) Dec, Chronic, continuous use of opioids (ICD-10 - F11.90) Dec, Chronic pain (ICD-10 - G89.29) Dec, Other Above note writ ten by Gabriel Grady LPN, Receptionist Telephone Operator. Edited and approved by Dr. Shaquille Remy MD. [facility] Other 03-28-2023 Evaluation note* Encounter Date Diagnosis Assessment Notes Treatment Notes Treatment Clinical Notes Dec, Chronic, continuous use of opioids (ICD-10 - F11.90) Dec, Other spondylosis with radiculopathy, lumbar region (ICD-10 - M47.26) [facility] Other 03-07-2023 NotePROCEDURE DETAILS Preoperative Diagnosis: Postlaminectomy syndrome of lumbar region, M96.1 Postoperative Diagnosis: Postlaminectomy syndrome of lumbar region, M96.1 Surgeon: Damian Power Resident/Fellow/Other Bale Breaker Operator: Luzma Spence Procedure: 1. THORACIC LAMINECTOMY T8 2. INSERTION OF SPINAL CORD STIMULATOR- T8 Anesthesia: Shaquille Giordano Estimated Blood Loss: Less than 5 mL Findings: None IV Fluids: 2 L Implants: [employer] spinal cord stimulator and pulse generator Operative Report: Patient was seen in the holding area and his right greater than left leg pain was reconfirmed. His back was marked with indelible ink for placement of the pulse generator and for the laminectomy site. His history was updated and signed in all scripts. Consent was obtained for surgery. His safety checklist was completed. Allergies were none to medications. Cefazolin was her perioperative antibiotic. Patient was taken to the operating room. Is placed under general anesthesia. Is placed in a knee-chest position on the pro axis spine table. Care was taken to pad all bony prominences. His back was prepped with ChloraPrep he was sterilely draped. Timeout was taken to confirm patient, procedure, level and laterality, that antibiotics were given prior to the incision, his fire risk was assessed his allergy history was reviewed. Fluorographic imaging was utilized to confirm the T8 level. This was marked with indelible ink on the skin. The skin was anesthetized with half percent Marcaine with epinephrine. Skin incision was made deeper dissection was done with a monopolar cautery. Spinous process was subperiosteally exposed and then a Brittani was placed on it. Fluorographic imaging was read done to confirm that we are on the T8 spinous process. The spinous process of T8 was removed and the trailing edge of the T8 vertebra was developed. A curette was used to elevate the ligamentum flavum at the superior edge of the T9 lamina. It was resected with a 2 mm Kerrison rongeur. A blunt dissector was then used to enter the spinal canal dorsal to the spinal cord. This was checked on fluorographic imaging and the levels again were confirmed with this dissector in place. It was then removed and then a spinal cord stimulator electrode was placed. This was with 4 leads. Paddle was placed without complication. Again fluorographic imaging was utilized showing us at the top of the T8 level up to the bottom of the T6 vertebral level. Sutures were passed through the spinous process of T8 at the base. Anchors were placed on the #1 and #4-lead. The electrode was then anchored to the T8 vertebral body. Final AP x-ray was done showing satisfactory position of the electrode. A second incision was then made over the right buttock. A pocket was developed for the pulse generator. Tunneling device was used to subcutaneously from this incision to the laminectomy site. The electrodes were passed through the passer down to the pocket. Prior to doing so the electrode was checked to be certain that it was working. Once the wires were passed they were connected to the pulse generator. Each wire was individually checked to be certain that there was good contact. Once it was confirmed that all 4 wires had good contact and signal the pulse generator was placed in the pocket. It was anchored with nonabsorbable suture in the subcutaneous tissue or to the dermis. This incision was then closed with 2-0 Vicryl and then a 3 oh strata fix. The laminectomy site was irrigated. Floseal was placed. The fascia was closed with 0 Vicryl. Subcutaneous tissue was closed with 2-0 Vicryl and the skin was closed with a 3 oh strata fix. Skin glue was placed over each incision then dry dressing. Patient was turned in supine position. Taken recovery in stable condition. Attestation: Note Completion: Attending AttestationI performed the procedure without a resident Electronic Signatures: Damian Power) (Signed 14-Dec-2022 10:12) Authored: Post-Operative Note, Chart Review, Note Completion Last Updated: 14-Dec-2022 10:12 by Damian Power)[facility] [place] 12-14-2022 NoteHistory & Physical Reviewed: I have reviewed the History and Physical dated: 03-Dec-2022 History and Physical reviewed and relevant findings noted. Patient examined to review pertinent physical findings.: No significant changes Home Medications Reviewed: no changes noted Allergies Reviewed: no changes noted ERAS (Enhanced Recovery After Surgery): ERAS Patient: no Consent: COVID-19 Consent: COVID-19 Risk ConsentSurgeon has reviewed molina risks related to the risk of sheri COVID-19 and if they contract COVID-19 what the risks are. Electronic Signatures: Damian Power) (Signed 14-Dec-2022 10:00) Authored: History & Physical Reviewed, ERAS, Consent, Note Completion Last Updated: 14-Dec-2022 10:00 by Damian Power)[facility] [place] 12-08-2022 Evaluation note* Encounter Date Diagnosis Assessment Notes Treatment Notes Treatment Clinical Notes Dec, Chronic, continuous use of opioids (ICD-10 - F11.90) [facility] Other 02-28-2023 Evaluation note* Encounter Date Diagnosis Assessment Notes Treatment Notes Treatment Clinical Notes Nov, Other spondylosis with radiculopathy, lumbar region (ICD-10 - M47.26) Patients primary complaint today continues to be low lumbar pain radiating into his bilateral lower extremities. He has failed previous conservative treatments and continues to experience progressing symptoms. Patient was encouraged to continue following through with Dr Tomasz Power for implant of spinal cord stimulator. In the meantime, we will continue to manage his symptoms as best we can with his current medication regimen. Anatomy of spine discussed in detail with patient in regard to patients condition. Nov, Spinal stenosis (ICD-10 - M48.00) Nov, Chronic, continuous use of opioids (ICD-10 - F11.90) The patient has continued need for Percocet 5-325 mg up to three times daily as needed and Gabapentin 900 mg three times daily. Opioid risk assessment was done, without concerns. OARRS was processed and reviewed, no discrepancies noted. Patient is compliant with their medications and reports no opioid related side effects. He is in agreement that this medication provides reasonable benefit in regard to his pain control and level of function allowing him to perform daily activities. A refill was provided today. Nov, Chronic pain (ICD-10 - G89.29) Nov, Other Above note writ ten by Néstor Coyne MA, Receptionist Telephone Operator. Edited and approved by Dr. Shaquille Remy MD. [facility] Other 02-28-2023 Evaluation note* Encounter Date Diagnosis Assessment Notes Treatment Notes Treatment Clinical Notes Nov, Chronic, continuous use of opioids (ICD-10 - F11.90) [facility] Other 01-31-2023 Evaluation note* Encounter Date Diagnosis Assessment Notes Treatment Notes Treatment Clinical Notes Oct, Other spondylosis with radiculopathy, lumbar region (ICD-10 - M47.26) Patients primary complaint today continues to be low lumbar pain radiating into his bilateral lower extremities. He has failed previous conservative treatments and continues to experience progressing symptoms. Patient was encouraged to continue following through with Dr Tomasz Power for the spinal cord stimulator. In the meantime, we will continue to manage his symptoms as best we can with his current medication regimen. Anatomy of spine discussed in detail with patient in regard to patients condition. Oct, Spinal stenosis (ICD-10 - M48.00) Oct, Chronic, continuous use of opioids (ICD-10 - F11.90) The patient has continued need for Percocet 5-325 mg up to three times daily as needed and Gabapentin 900 mg three times daily. Opioid risk assessment was done, without concerns. OARRS was processed and reviewed, no discrepancies noted. Patient is compliant with their medications and reports no opioid related side effects. He is in agreement that this medication provides reasonable benefit in regard to his pain control and level of function allowing him to perform daily activities. A refill was provided today. Oct, Chronic pain (ICD-10 - G89.29) Oct, Other Above note writ ten by Gabriel Grady LPN, Receptionist Telephone Operator. Edited and approved by Dr. Shaquille Remy MD. [facility] Other 01-31-2023 Evaluation note* Encounter Date Diagnosis Assessment Notes Treatment Notes Treatment Clinical Notes Oct, Chronic, continuous use of opioids (ICD-10 - F11.90) [facility] Other 01-10-2023 Evaluation note* Encounter Date Diagnosis Assessment Notes Treatment Notes Treatment Clinical Notes Oct, Lumbar radiculopathy (ICD-10 - M54.16) This is a gentleman who was operated on by me in 2017. Apparently he was not happy with the result went to [place] and had an operation done at the clinic which also did not go well and then had a fusion in [place] that relieved none of the symptoms. He states he can only move 3 days a week, the rest of the time is incapacitated by pain. He had a MRI of the Lumbar spine done which shows normal discs at L4 and above with a fusion at L5-S1. There is no evidence of nerve root impingement, no instability or other abnormality. The patient had a trial dorsal column stimulator , he said the wires where they came out of his back were exquisitely painful and he had other unusual symptoms from the placement of the temporary dorsal column stimulator. Given these findings his overall history I am very uncomfortable placing this device in this patient. I would recommend he seek care elsewhere. I spoke directly with Dr. Dylan Remy regarding this, and he will refer patient elsewhere. Oct, History of lumbar spinal fusion (ICD-10 - Z98.1) [facility] Other 12-29-2022 Evaluation note* Encounter Date Diagnosis Assessment Notes Treatment Notes Treatment Clinical Notes Sep, Chronic, continuous use of opioids (ICD-10 - F11.90) Sep, Other spondylosis with radiculopathy, lumbar region (ICD-10 - M47.26) [facility] Other 12-01-2022 Evaluation note* Encounter Date Diagnosis Assessment Notes Treatment Notes Treatment Clinical Notes Sep, Chronic, continuous use of opioids (ICD-10 - F11.90) [facility] Other 12-01-2022 Evaluation note* Encounter Date Diagnosis Assessment Notes Treatment Notes Treatment Clinical Notes Sep, Other spondylosis with radiculopathy, lumbar region (ICD-10 - M47.26) Patients primary complaint today continues to be low lumbar pain radiating into his bilateral lower extremities. He has failed previous conservative treatments and continues to experience progressing symptoms. Patient was encouraged to continue following through with neurosurgery for the spinal cord stimulator. In the meantime, we will continue to manage his symptoms as best we can with his current medication regimen. Anatomy of spine discussed in detail with patient in regard to patients condition. Sep, Spinal stenosis (ICD-10 - M48.00) Sep, Chronic, continuous use of opioids (ICD-10 - F11.90) The patient has continued need for Percocet 5-325 mg up to three times daily as needed and Gabapentin 900 mg three times daily. Opioid risk assessment was done, without concerns. OARRS was processed and reviewed, no discrepancies noted. Patient is compliant with their medications and reports no opioid related side effects. He is in agreement that this medication provides reasonable benefit in regard to his pain control and level of function allowing him to perform daily activities. This was refilled today. Sep, Chronic pain (ICD-10 - G89.29) Sep, Other Above note writ ten by Gabriel Grady LPN, Receptionist Telephone Operator. Edited and approved by Dr. Shaquille Remy MD. [facility] Other 11-11-2022 Evaluation note* Encounter Date Diagnosis Assessment Notes Treatment Notes Treatment Clinical Notes Aug, Other spondylosis with radiculopathy, lumbar region (ICD-10 - M47.26) Aug, Failed back syndrome (ICD-10 - M53.9) Patient presented today for follow up post spinal cord stimulator trial using two contant [employer] leads. Patient reports nearly 100% relief of his back and leg pain. I recommend we proceed with SCS implant with [employer] as previously discussed. I will refer the patient to neurosurgery, for consideration of SCS implant. In the meantime, patient will continue on his current medication regimen. Anatomy of spine discussed in detail with patient in regards to patients condition. Aug, Spinal stenosis (ICD-10 - M48.00) Aug, Chronic, continuous use of opioids (ICD-10 - F11.90) The patient has continued need for Percocet 5-325 mg up to three times daily as needed and Gabapentin 900 mg three times daily. Opioid risk assessment was done, without concerns. OARRS was processed and reviewed, no discrepancies noted. Patient is compliant with their medications and reports no opioid related side effects. He is in agreement that this medication provides reasonable benefit in regard to his pain control and level of function allowing him to perform daily activities. He does not need a refill at this time. Aug, Chronic pain (ICD-10 - G89.29) Aug, Other Above note writ ten by Néstor Coyne MA, Receptionist Telephone Operator. Edited and approved by Dr. Shaquille Remy MD. [facility] Other 11-08-2022 Procedure [facility]10-27-2022 Evaluation note* Encounter Date Diagnosis Assessment Notes Treatment Notes Treatment Clinical Notes Jul, Other spondylosis with radiculopathy, lumbar region (ICD-10 - M47.26) Patients primary complaint today continues to be low lumbar pain radiating into his bilateral lower extremities. He has failed previous conservative treatments and continues to experience progressing symptoms. Patient was encouraged to continue with the spinal cord stimulator trial as scheduled. In the meantime, we will continue to manage his symptoms as best we can with his current medication regimen. Anatomy of spine discussed in detail with patient in regards to patients condition. Jul, Spinal stenosis (ICD-10 - M48.00) Jul, Chronic, continuous use of opioids (ICD-10 - F11.90) The patient has continued need for Percocet 5-325 mg up to three times daily as needed and Gabapentin 900 mg three times daily. Opioid risk assessment was done, without concerns. OARRS was processed and reviewed, no discrepancies noted. Patient is compliant with their medications and reports no opioid related side effects. He is in agreement that this medication provides reasonable benefit in regard to his pain control and level of function allowing him to perform daily activities. This was refilled today. Jul, Chronic pain (ICD-10 - G89.29) Jul, Other Above note writ ten by Néstor Coyne MA, Receptionist Telephone Operator. Edited and approved by Dr. Shaquille Remy MD. [facility] Other 10-27-2022 Evaluation note* Encounter Date Diagnosis Assessment Notes Treatment Notes Treatment Clinical Notes Jul, Chronic, continuous use of opioids (ICD-10 - F11.90) [facility] Other 09-29-2022 Evaluation note* Encounter Date Diagnosis Assessment Notes Treatment Notes Treatment Clinical Notes Jun, Sacroiliitis (ICD-10 - M46.1) Jun, Other spondylosis with radiculopathy, lumbar region (ICD-10 - M47.26) Patients primary complaint today continues to be low lumbar pain radiating into his bilateral lower extremities. He has failed previous conservative treatments and continues to experience progressing symptoms. Recent MRI results show evidence of postsurgical changes. I agree with neurosurgerys recommendations the patient may benefit from a spinal cord stimulator. We previously submitted for this however it was denied. We submitted an appeal and it is still pending at this time. We will call the patient to schedule once approved. In the meantime, he will continue on his current medication regimen. Anatomy of spine discussed in detail with patient in regard to patients condition. Jun, Chronic, continuous use of opioids (ICD-10 - F11.90) The patient has continued need for Percocet 5-325 mg up to three times daily as needed and Gabapentin 900 mg three times daily. Opioid risk assessment was done, without concerns. OARRS was processed and reviewed, no discrepancies noted. Patient is compliant with their medications and reports no opioid related side effects. He is in agreement that this medication provides reasonable benefit in regard to his pain control and level of function allowing him to perform daily activities. This was refilled today. Jun, Other chronic pain (ICD-10 - G89.29) Jun, Other Above note writ ten by Gabriel Grady LPN, Receptionist Telephone Operator. Edited and approved by Dr. Shaquille Remy MD. [facility] [employer] [facility] Other 09-01-2022 Evaluation note* Encounter Date Diagnosis Assessment Notes Treatment Notes Treatment Clinical Notes Jun, Sacroiliitis (ICD-10 - M46.1) Jun, Other spondylosis with radiculopathy, lumbar region (ICD-10 - M47.26) Patients primary complaint today continues to be low lumbar pain radiating into his bilateral lower extremities. He has failed previous conservative treatments and continues to experience progressing symptoms. Recent MRI results show evidence of postsurgical changes. I agree with neurosurgerys recommendations the patient may benefit from a spinal cord stimulator. We previously submitted for this however it was denied. We will appeal this and call the patient to schedule. In the meantime, he will continue on his current medication regimen. Anatomy of spine discussed in detail with patient in regard to patients condition. Jun, Chronic, continuous use of opioids (ICD-10 - F11.90) The patient has continued need for Percocet 5-325 mg up to three times daily as needed and Gabapentin 900 mg three times daily. Opioid risk assessment was done, without concerns. OARRS was processed and reviewed, no discrepancies noted. Patient is compliant with their medications and reports no opioid related side effects. He is in agreement that this medication provides reasonable benefit in regard to his pain control and level of function allowing him to perform daily activities. This was refilled today. Jun, Other chronic pain (ICD-10 - G89.29) Jun, Other Above note writ ten by Gabriel Grady LPN, Receptionist Telephone Operator. Edited and approved by Dr. Shaquille Remy MD. [facility] Other 08-01-2022 Evaluation note* Encounter Date Diagnosis Assessment Notes Treatment Notes Treatment Clinical Notes May, Sacroiliitis (ICD-10 - M46.1) May, Other spondylosis with radiculopathy, lumbar region (ICD-10 - M47.26) Patients primary complaint today continues to be low lumbar pain radiating into his bilateral lower extremities. He has failed previous conservative treatments and continues to experience progressing symptoms. Recent MRI results show evidence of postsurgical changes. Patient was encouarged to follow up with neurosurgery. In the meantime, he will continue on his current medication regimen. Anatomy of spine discussed in detail with patient in regard to patients condition. May, Chronic, continuous use of opioids (ICD-10 - F11.90) The patient has continued need for Percocet 5-325 mg up to three times daily as needed and Gabapentin 900 mg three times daily. Opioid risk assessment was done, without concerns. OARRS was processed and reviewed, no discrepancies noted. Patient is compliant with their medications and reports no opioid related side effects. He is in agreement that this medication provides reasonable benefit in regard to his pain control and level of function allowing him to perform daily activities. These medications were refilled today. Saliva performed through [facility] today, will await confirmatory results. May, Other chronic pain (ICD-10 - G89.29) May, Other Above note writ ten by Gabriel Grady LPN, Receptionist Telephone Operator. Edited and approved by Dr. Shaquille Remy MD. [facility] Other 06-23-2022 Evaluation note* Encounter Date Diagnosis Assessment Notes Treatment Notes Treatment Clinical Notes Mar, Sacroiliitis (ICD-10 - M46.1) Mar, Other spondylosis with radiculopathy, lumbar region (ICD-10 - M47.26) Patients primary complaint today continues to be low lumbar pain radiating into his bilateral lower extremities. He has failed previous conservative treatments and continues to experience progressing symptoms. Recent MRI results show evidence of postsurgical changes. Patient was encouarged to follow up with neurosurgery. In the meantime, he will continue on his current medication regimen. Anatomy of spine discussed in detail with patient in regard to patients condition. Mar, Chronic, continuous use of opioids (ICD-10 - F11.90) The patient has continued need for Percocet 5-325 mg up to three times daily as needed and Gabapentin 900 mg three times daily. Opioid risk assessment was done, without concerns. OARRS was processed and reviewed, no discrepancies noted. These medications were refilled today. Patient is compliant with their medications and reports no opioid related side effects. He is in agreement that this medication provides reasonable benefit in regard to his pain control and level of function allowing him to perform daily activities. These medications were refilled today. Mar, Other chronic pain (ICD-10 - G89.29) Mar, Other Above note writ ten by Néstor Coyne MA, Receptionist Telephone Operator. Edited and approved by Dr. Shaquille Remy MD. [facility] Other 06-02-2022 Evaluation note* Encounter Date Diagnosis Assessment Notes Treatment Notes Treatment Clinical Notes Mar, Sacroiliitis (ICD-10 - M46.1) Mar, Other spondylosis with radiculopathy, lumbar region (ICD-10 - M47.26) Patients primary complaint today is low lumbar pain radiating into his bilateral lower extremities. He has failed previous conservative treatments and continues to experience progressing symptoms. He was recently seen by neurosurgery who has stated that he is not a candidate for more surgery and has suggested a repeat lumbar MRI. I will order an MRI of his lumbar spine for further evaluation of his pain symptoms. In the meantime, he will continue on his current medication regimen. Anatomy of spine discussed in detail with patient in regard to patients condition. Mar, Chronic, continuous use of opioids (ICD-10 - F11.90) The patient has continued need for Percocet 5-325 mg up to three times daily as needed and Gabapentin 900 mg three times daily. Opioid risk assessment was done, without concerns. OARRS was processed and reviewed, no discrepancies noted. These medications were refilled today. Patient is compliant with their medications and reports no opioid related side effects. He is in agreement that this medication provides reasonable benefit in regard to his pain control and level of function allowing him to perform daily activities. These medications were refilled today. Mar, Other chronic pain (ICD-10 - G89.29) Mar, Other Above note writ ten by Gabriel Grady LPN, Receptionist Telephone Operator. Edited and approved by Dr. Shaquille Remy MD. [facility] Other 05-05-2022 Evaluation note* Encounter Date Diagnosis Assessment Notes Treatment Notes Treatment Clinical Notes February, Sacroiliitis (ICD-10 - M46.1) February, Other spondylosis with radiculopathy, lumbar region (ICD-10 - M47.26) Patient was encouraged continuing with upcoming appointment to be evaluated by neurosurgery to enquire if he is a candidate for further surgical intervention. In the meantime, he will continue on his current medication regimen. Anatomy of spine discussed in detail with patient in regard to patients condition. February, Chronic, continuous use of opioids (ICD-10 - F11.90) The patient has continued need for Percocet 5-325 mg up to three times daily as needed and Gabapentin 900 mg three times daily. Opioid risk assessment was done, without concerns. OARRS was processed and reviewed, no discrepancies noted. These medications were refilled today. Patient is compliant with their medications and reports no opioid related side effects. He is in agreement that this medication provides reasonable benefit in regard to his pain control and level of function allowing him to perform daily activities. These medications were refilled today. February, Other chronic pain (ICD-10 - G89.29) February, Other Above note writ ten by Gabriel Grady LPN, Receptionist Telephone Operator. Edited and approved by Dr. Shaquille Remy MD. [facility] Other 04-08-2022 Evaluation note* Encounter Date Diagnosis Assessment Notes Treatment Notes Treatment Clinical Notes Jan, Other low back pain (ICD-10 - M54.59) [facility] Other 04-05-2022 Evaluation note* Encounter Date Diagnosis Assessment Notes Treatment Notes Treatment Clinical Notes Jan, Sacroiliitis (ICD-10 - M46.1) Jan, Other spondylosis with radiculopathy, lumbar region (ICD-10 - M47.26) Patients primary complaint today continus to be low back pain radiating into his bilateral lower extremities. Patient has exhausted multiple treatment options such as medications, physical therapy, injections and surgical intervention. He was encouraged to continue with plans for spinal cord stimulator trial next week.Risks and benefits of procedure explained to patient; patient verbalizes understanding. In the meantime, he will continue on his current medication regimen. Anatomy of spine discussed in detail with patient in regards to patients condition. Jan, Chronic, continuous use of opioids (ICD-10 - F11.90) The patient has continued need for Percocet 5-325 mg up to three times daily as needed and Gabapentin 900 mg three times daily. Opioid risk assessment was done, without concerns. OARRS was processed and reviewed, no discrepancies noted. These medications were refilled today. Patient is compliant with their medications and reports no opioid related side effects. He is in agreement that this medication provides reasonable benefit in regards to his pain control and level of function allowing him to perform daily activities. These medications were refilled today. Jan, Other chronic pain (ICD-10 - G89.29) Jan, Other Above note writ ten by Néstor Coyne CMA, Receptionist Telephone Operator. Edited and approved by Dr. Shaquille Remy MD. [facility] Other 03-08-2022 Evaluation note* Encounter Date Diagnosis Assessment Notes Treatment Notes Treatment Clinical Notes Dec, Sacroiliitis (ICD-10 - M46.1) Dec, Other spondylosis with radiculopathy, lumbar region (ICD-10 - M47.26) Patients primary complaint today is low back pain radiating into his bilateral lower extremities. Patient has exhausted multiple treatment options such as medications, physical therapy, injections and surgical intervention. Patient is vocalizing interest in pursuing the option of a spinal cord stimulator which we will help facilitate. I will refer the patient to neuropsychology for the required evaluation prior to trialing this device. In the meantime, he will continue on his current medication regimen. Anatomy of spine discussed in detail with patient in regards to patients condition. Dec, Chronic, continuous use of opioids (ICD-10 - F11.90) The patient has continued need for Percocet 5-325 mg up to three times daily as needed and Gabapentin 900 mg three times daily. Opioid risk assessment was done, without concerns. OARRS was processed and reviewed, no discrepancies noted. These medications were refilled today. Patient is compliant with their medications and reports no opioid related side effects. He is in agreement that this medication provides reasonable benefit in regards to his pain control and level of function allowing him to perform daily activities. Percocet was refilled today. Saliva performed through [facility] lab today, will await confirmatory results. Dec, Other chronic pain (ICD-10 - G89.29) Above note written by Gabriel Grady LPN, Receptionist Telephone Operator. Edited and approved by Dr. Shaquille Remy MD. [facility] Other 02-08-2022 Evaluation note* Encounter Date Diagnosis Assessment Notes Treatment Notes Treatment Clinical Notes Nov, Sacroiliitis (ICD-10 - M46.1) Nov, Other spondylosis with radiculopathy, lumbar region (ICD-10 - M47.26) Patients primary complaint today is low back pain radiating into his bilateral lower extremities. Patient has exhausted multiple treatment options such as medications, physical therapy, injections and surgical intervention. Patient is vocalizing interest in pursuing the option of a spinal cord stimulator which we will help facilitate. I will refer the patient to neuropsychology for the required evaluation prior to trialing this device. In the meantime, he will continue on his current medication regimen. Anatomy of spine discussed in detail with patient in regards to patients condition. Nov, Chronic, continuous use of opioids (ICD-10 - F11.90) The patient has continued need for Percocet 5-325 mg up to three times daily as needed and Gabapentin 900 mg three times daily. Opioid risk assessment was done, without concerns. OARRS was processed and reviewed, no discrepancies noted. These medications were refilled today. Patient is compliant with their medications and reports no opioid related side effects. He is in agreement that this medication provides reasonable benefit in regards to his pain control and level of function allowing him to perform daily activities. Percocet was refilled today. Nov, Other chronic pain (ICD-10 - G89.29) Above note written by Néstor Coyne CMA, Receptionist Telephone Operator. Edited and approved by Dr. Shaquille Remy MD. 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 Opioid risk assessment was done, without concerns. OARRS was processed and reviewed, no discrepancies noted. These medications were refilled today. Patient is compliant with their medications and reports no opioid related side effects. He is in agreement that this medication provides reasonable benefit in regards to his pain control and level of function allowing him to perform daily activities. This medication was refilled today. Oct, Sacroiliitis (ICD-10 - M46.1) Patient notes minimal complaints of pain at this time. He attributes this to recent right sacroiliac joint injections. We will continue to monitor and proceed with future alternative treatment. Oct, Other chronic pain (ICD-10 - G89.29) Above note written by Néstor Coyne CMA, Receptionist Telephone Operator. Edited and approved by Dr. Shaquille Remy MD. 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 Opioid risk assessment was done, without concerns. OARRS was processed and reviewed, no discrepancies noted. These medications were refilled today. Patient is compliant with their medications and reports no opioid related side effects. He is in agreement that this medication provides reasonable benefit in regards to his pain control and level of function allowing him to perform daily activities. Sep, Sacroiliitis (ICD-10 - M46.1) Patient notes minimal complaints of pain at this time. He attributes this to recent right sacroiliac joint injections. We will continue to monitor and proceed with future alternative treatment. Sep, Other chronic pain (ICD-10 - G89.29) Above note written by Gabriel Grady LPN, Receptionist Telephone Operator. Edited and approved by Dr. Shaquille Remy MD. 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 Patient would like to hold off on further treatment options at this time. He would like give the previous radiofrequency ablations more time to assess how beneficial this was. We will plan on proceeding with repeat procedures on an as needed basis. Anatomy of spine discussed in detail with patient in regards to patients condition. Jul, Chronic, continuous use of opioids (ICD-10 - F11.90) The patient has continued need for Percocet 5-325 mg up to three times daily as needed and Gabapentin 900 mg three times daily. Patient is compliant with their medications and reports no opioid related side effects. He is in agreement that this medication provides reasonable benefit in regards to his pain control and level of function allowing him to perform daily activities. Opioid risk assessment was done, without concerns. OARRS was processed and reviewed, no discrepancies noted. These medications were refilled today. Jul, Sacroiliitis (ICD-10 - M46.1) Jul, Other chronic pain (ICD-10 - G89.29) Jul, Other Above note writ ten by Lakshmi Danielson CMA, Receptionist Telephone Operator. Edited and approved by Dr. Shaquille Remy MD. [facility] Other 09-27-2021 Note [id number]09-21-2021 [id number] 06-29-2021 [facility] SURGERY Clinical Discharge Summary PERSON INFORMATION Name DENISE LANTIGUA Age 41 Years 1980 Sex MALE Language [place] PCP KATIE SALGUERO Marital Status Single Med Service Ambulatory Surgery Acct# Arrival 06/29/2021 10:36:00 Visit Reason SURGERY - CYSTOSCOPY BILATERAL URETEROSCOPY HOLMIUM LASER LITHO, BILATERAL STENT PLACEMENT Acuity LOS 018 09:03 Address: [address] [place] [address] Comment: PROVIDER INFORMATION VITALS INFORMATION Vital Sign Triage Latest Temp Oral Temp Temporal Temp Intravascular Temp Axillary Temp Rectal 02 Sat 98 % 96 % Respiratory Rate Peripheral Pulse Rate Apical Heart Rate Blood Pressure / 97 mmHg / 102 mmHg Comment: MEDICAL INFORMATION Allergy Info: No known allergies Prescriptions Given: acetaminophen-hydrocodone ([place] 5 mg-325 mg oral tablet) 1 tab(s) Oral Every 6 hours as needed forpain. Refills: 0. acetaminophen-oxycodone (acetaminophen-oxycodone 325 mg-5 mg oral tablet) 1 tab(s) Oral Every 4 hours as needed for pain. albuterol (albuterol 90 mcg/inh inhalation aerosol) 1 puff(s) Inhalation 2 times a day as needed for wheezing. amitriptyline (amitriptyline 10 mg oral tablet) 1 tab(s) Oral At bedtime as needed migraine headache. amitriptyline (amitriptyline 25 mg oral tablet) 1 tab(s) Oral every day as needed migraine headache. gabapentin (gabapentin 300 mg oral capsule) 1 cap(s) Oral 3 times a day. ketorolac (ketorolac 10 mg oral tablet) 1 tab(s) Oral Every 4 hours as needed for pain. lisinopril (lisinopril 10 mg oral tablet) 1 tab(s) Oral every day. ondansetron (ondansetron 4 mg oral tablet, disintegrating) 1 tab(s) Oral once as needed as needed for nausea/vomiting. tamsulosin (Flomax 0.4 mg oral capsule) 1 cap(s) Oral every day. Refills: 0. tiZANidine (tiZANidine 4 mg oral tablet) 1 tab(s) Oral Every 8 hours. Medication List: New Medications Printed Prescriptions acetaminophen-hydrocodone ([place] 5 mg-325 mg oral tablet) 1 tab(s) Oral Every 6 hours as needed forpain. Refills: 0. Medications That Were Updated - Follow Below Instructions Printed Prescriptions Updated: tamsulosin (Flomax 0.4 mg oral capsule) 1 cap(s) Oral every day. Refills: 0. Medications to Continue That Have Not Changed Other Medications acetaminophen-oxycodone (acetaminophen-oxycodone 325 mg-5 mg oral tablet) 1 tab(s) Oral Every 4 hours as needed for pain. albuterol (albuterol 90 mcg/inh inhalation aerosol) 1 puff(s) Inhalation 2 times a day as needed for wheezing. amitriptyline (amitriptyline 10 mg oral tablet) 1 tab(s) Oral At bedtime as needed migraine headache. amitriptyline (amitriptyline 25 mg oral tablet) 1 tab(s) Oral every day as needed migraine headache. gabapentin (gabapentin 300 mg oral capsule) 1 cap(s) Oral 3 times a day. ketorolac (ketorolac 10 mg oral tablet) 1 tab(s) Oral Every 4 hours as needed for pain. lisinopril (lisinopril 10 mg oral tablet) 1 tab(s) Oral every day. ondansetron (ondansetron 4 mg oral tablet, disintegrating) 1 tab(s) Oral once as needed as needed for nausea/vomiting. tiZANidine (tiZANidine 4 mg oral tablet) 1 tab(s) Oral Every 8 hours. New Medications Printed Prescriptions acetaminophen-hydrocodone ([place] 5 mg-325 mg oral tablet) 1 tab(s) Oral Every 6 hours as needed forpain. Refills: 0. Medications That Were Updated - Follow Below Instructions Printed Prescriptions Updated: tamsulosin (Flomax 0.4 mg oral capsule) 1 cap(s) Oral every day. Refills: 0. Medications to Continue That Have Not Changed Other Medications acetaminophen-oxycodone (acetaminophen-oxycodone 325 mg-5 mg oral tablet) 1 tab(s) Oral Every 4 hours as needed for pain. albuterol (albuterol 90 mcg/inh inhalation aerosol) 1 puff(s) Inhalation 2 times a day as needed for wheezing. amitriptyline (amitriptyline 10 mg oral tablet) 1 tab(s) Oral At bedtime as needed migraine headache. amitriptyline (amitriptyline 25 mg oral tablet) 1 tab(s) Oral every day as needed migraine headache. gabapentin (gabapentin 300 mg oral capsule) 1 cap(s) Oral 3 times a day. ketorolac (ketorolac 10 mg oral tablet) 1 tab(s) Oral Every 4 hours as needed for pain. lisinopril (lisinopril 10 mg oral tablet) 1 tab(s) Oral every day. ondansetron (ondansetron 4 mg oral tablet, disintegrating) 1 tab(s) Oral once as needed as needed for nausea/vomiting. tiZANidine (tiZANidine 4 mg oral tablet) 1 tab(s) Oral Every 8 hours. New Medications Printed Prescriptions acetaminophen-hydrocodone ([place] 5 mg-325 mg oral tablet) 1 tab(s) Oral Every 6 hours as needed forpain. Refills: 0. Medications That Were Updated - Follow Below Instructions Printed Prescriptions Updated: tamsulosin (Flomax 0.4 mg oral capsule) 1 cap(s) Oral every day. Refills: 0. Medications to Continue That Have Not Changed Other Medications acetaminophen-oxycodone (acetaminophen-oxycodone 325 mg-5 mg oral tablet) 1 tab(s) Oral Every 4 hours as needed fo (more content not included)...[id number] History general Narrative - Reported* Type Description Date Medical History asthma Medical History hypertension, benign Surgical History back surgery 11/25/16 Surgical History Left Uteroscopic Stone Extracti on 2011 Surgical History BACK SURGERY 06/14/18 Surgical History Lumbar Surgery - Dr. Valle 11/25 Surgical History Back Surgery 07/05/19 Surgical History Nerve Ablation Lumbar Spine- Dr Anh Remy 07/2017 Surgical History Decompression surger y of lumbar spine @ [facility] 06/14/18 Hospitalization History [place]- Pneumonia 11/2015 [employer] [facility] [employer] Other 02-16-2017 History general Narrative - Reported* Type Description Date Medical History asthma Medical History hypertension, benign Medical History high cholesterol Medical History kidney stones Surgical History back surgery 11/25/16 Surgical History Left Uteroscopic Stone Extracti on 2011 Surgical History BACK SURGERY 06/14/18 Surgical History Lumbar Surgery - Dr. Valle 11/25 Surgical History Back Surgery 07/05/19 Surgical History Nerve Ablation Lumbar Spine- Dr Anh Remy 07/2017 Surgical History Decompression surger y of lumbar spine @ [facility] 06/14/18 [place] [facility]2015 [employer] [facility] [employer] Other Evaluation + Plan note Future Appointments Appointment Date:08/12/2022 03:30:00 PM Scheduled Provider:Denise Welch MD Location[facility] Future Appointments Appointment Date:11/03/2023 10:00:00 AM Scheduled Provider:Trey Carranza MD Location:[facility] Appointment Type:FM Open Appointment Date:11/11/2023 11:45:00 AM Scheduled Provider:[facility] Welch [facility] [employer] Other evaluation noteNo InformationNort [employer] Other evaluation noteNo assessment information available [facility] Work Phone: Evaluation note* Diagnosis Onset Date Resolution Status Chronic pain acute Chronic, continuous use of opioids acute Failed back surgical syndrome acute Lumbar radiculopathy acute Chronic pain acute Chronic, continuous use of opioids acute Failed back surgical syndrome acute Lumbar radiculopathy acute [facility] Work Phone: Evaluation note* Diagnosis Onset Date Resolution Status Chronic pain acute Chronic, continuous use of opioids acute Failed back surgical syndrome acute Lumbar radiculopathy acute Chronic pain acute Chronic, continuous use of opioids acute Failed back surgical syndrome acute Lumbar radiculopathy acute Chronic pain acute Chronic, continuous use of opioids acute Failed back surgical syndrome acute Lumbar radiculopathy acute [facility] Work Phone: Evaluation note* Diagnosis Onset Date Resolution Status Chronic pain acute Chronic, continuous use of opioids acute Failed back surgical syndrome acute Lumbar radiculopathy acute Chronic pain acute Chronic, continuous use of opioids acute Failed back surgical syndrome acute Lumbar radiculopathy acute Chronic pain acute Chronic, continuous use of opioids acute Failed back surgical syndrome acute Lumbosacral spondylosis without myelopathy acute Chronic pain acute Chronic, continuous use of opioids acute Failed back surgical syndrome acute Lumbosacral spondylosis without myelopathy acute [facility] Work Phone: Evaluation note* Diagnosis Onset Date Resolution Status Chronic pain acute Chronic, continuous use of opioids acute Failed back surgical syndrome acute Lumbar radiculopathy acute Chronic pain acute Chronic, continuous use of opioids acute Failed back surgical syndrome acute Lumbosacral spondylosis without myelopathy acute Chronic pain acute Chronic, continuous use of opioids acute Failed back surgical syndrome acute Lumbosacral spondylosis without myelopathy acute Chronic pain acute Chronic, continuous use of opioids acute Failed back surgical syndrome acute Lumbosacral spondylosis without myelopathy acute [facility] Work Phone: History general [facility] - [facility] [employer] Other Hospital course Narrative No data available for this section [facility] No data available for this section [facility] instructionsAmbulatory Orders* Referral to Pain Management Time Frame: 03/19/24, Location: None [facility] Work Phone: Hospital Discharge instructionsAmbulatory Orders* Referral to Pain Management Time Frame: 04/18/24, Location: None [facility] Work Phone: Progress note No data available for this section [facility] Summary Purpose Family History No Family History Records Found Relationship Condition Age at Onset Recorded Date/T malina Not Specified Diabetes mellitus Unknown Hypertension Unknown Cerebrovascular accident (CVA) Unknown Relationship Condition Age at Onset Recorded Date/T malina Not Specified Diabetes mellitus Unknown Hypertension Unknown Cerebrovascular accident (CVA) Unknown Not Specified History of stroke Unknown Diabetes mellitus Unknown Relationship Condition Age at Onset Recorded Date/T malina mother Diabetes mellitus Unknown Hypertension Unknown Cerebrovascular accident (CVA) Unknown mother History of stroke Unknown Diabetes mellitus Unknown Advance Directives No Advanced Directives Records Found Advance Directive Response Recorded Date/ Time Advance Directives No November 4:07am Advance Directive Response Recorded Date/ Time Advance Directives No November 5:07am Advance Directive Response Recorded Date/ Time Advance Directives No February 16, 2024 11:24am Procedure Findings Note HNO ID: [id number] Author: Rashmi Littlejohn) Luz Maria Service: Neurosurgery Author Type: Physician Type: Brief Op Note Filed: 06/14/2018 2:55 PM Note Text: BRIEF OPERATIVE / PROCEDURE NOTE LOG ID: [id number] SURGERY/PROCEDURE DATE: 06/14/2018 INCISION/PROCEDURE START TIME: 1:16 PM INCISION CLOSE/PROCEDURE END TIME: 02.40 PM SURGEON(S)/PROCEDURALIST(S) AND SPA ASSOCIATE(S): Surgeon(s) and Role: * Laurel Littlejohn) Luz Maria - Primary Physician Bale Breaker Operator: Janis Franks SURGERY/PROCEDURE(S): Revision left side L5-S1 diskectomy with root foraminotomies done Operative microscope used for diskectomy and root foraminotomies ANESTHESIA: General FINDINGS: Evidence of left S1 laminotomy Scar tissue at left L5, S1 root area Disk herniation with small migrated disk behind S1 ESTIMATED BLOOD LOSS: 10 mls SPECIMENS: None COMPLICATIONS: None PRE-OP/PRE-PROCEDURE DIAGNOSIS: 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 Reason for Referral Reason consideration of SCS implant successful trial with nearly complete relief of low back and leg pain Diagnosis 1 Failed back syndrome (M53.9) Diagnosis 2 Other spondylosis wi th radiculopathy, lumbar region (M47.26) Referral Organization [facility] Referring Provider First Name Shaquille Referring Provider Last Name Jonel Referring Provider Specialty Pain Medici ne Referred Organization [facility] urosurgery Referred Provider Triny Guy Referred Address [address] [facility] [facility],[place] [address] ,[place], [place],[address] Referred Provider Specialty Neurological Surgery Referral Priority Routine General Notes Carly John 12:06:08 PM >will refer patient to Dr Guy, p2p has not been turned on yet for her at the [facility] location. I have a message sent out to IT and will send the referral as soon as it is turned on. Carly John 08/26/2022 09:01:46 AM >still unable to transmit via p2p to Dr Guy. I am going to fax the referral to the Neurosurgery office so they have the request and can contact patient once they can begin scheduling for Dr Guy. Reason *FU 11/24 neuropsy chological eval prior to spinal cord stimulator Diagnosis 1 Other spondylosis wi th radiculopathy, lumbar region (M47.26) Referral Organization [facility] Referring Provider First Name Shaquille Referring Provider Last Name Jonel Referring Provider Specialty Pain Medici ne Referred Organization [facility] Referred Provider Shen Abbott Referred Address [address] [place], [place],[address] Referred Provider Specialty Neuropsychia try Referral Priority Routine General Notes Carly John 03:58:33 PM >referral request faxed to Dr Abbott's office Chief Complaint and Reason for Visit Chief Complaint Back Pain Chief Complaint 1 MONTH 1 MONTH Reason for Visit Chronic pain Chronic, continuous use of opioids Failed back surgical syndrome Lumbar radiculopathy Chronic pain Chronic, continuous use of opioids Failed back surgical syndrome Lumbar radiculopathy Chief Complaint 1 MONTH 1 MONTH 1 MONTH Reason for Visit Chronic pain Chronic, continuous use of opioids Failed back surgical syndrome Lumbar radiculopathy Chronic pain Chronic, continuous use of opioids Failed back surgical syndrome Lumbar radiculopathy Chronic pain Chronic, continuous use of opioids Failed back surgical syndrome Lumbar radiculopathy Chief Complaint 1 MONTH 1 MONTH 1 MONTH SELF PAY-MED REFILL Reason for Visit Chronic pain Chronic, continuous use of opioids Failed back surgical syndrome Lumbar radiculopathy Chronic pain Chronic, continuous use of opioids Failed back surgical syndrome Lumbar radiculopathy Chronic pain Chronic, continuous use of opioids Failed back surgical syndrome Lumbosacral spondylosis without myelopathy Chronic pain Chronic, continuous use of opioids Failed back surgical syndrome Lumbosacral spondylosis without myelopathy Chief Complaint 1 MONTH 1 MONTH SELF PAY-MED REFILL 1 MONTH Reason for Visit Chronic pain Chronic, continuous use of opioids Failed back surgical syndrome Lumbar radiculopathy Chronic pain Chronic, continuous use of opioids Failed back surgical syndrome Lumbosacral spondylosis without myelopathy Chronic pain Chronic, continuous use of opioids Failed back surgical syndrome Lumbosacral spondylosis without myelopathy Chronic pain Chronic, continuous use of opioids Failed back surgical syndrome Lumbosacral spondylosis without myelopathy Additional Source Comments (unrecognized sect ion and content) No Status Records FoundNo Status Records FoundNo Status Records FoundNo Status Records FoundNo Status Records FoundNo Status Records FoundNo Status Records FoundNo Status Records FoundNo Status Records FoundNo Status Records FoundNo Status Records FoundNo Status Records Found INFORMATION SOURCE (unrecogn ized section and content) DATE CREATED AUTHOR 11/22/2018 [facility] DATE CREATED AUTHOR AUTHOR'S ORGANIZ ATION 11/22/2018 [facility] DATE CREATED AUTHOR AUTHOR'S ORGANIZ ATION 07/08/2021 [facility] DATE CREATED AUTHOR AUTHOR'S ORGANIZ ATION 01/04/2022 [facility] DATE CREATED AUTHOR AUTHOR'S ORGANIZ ATION 02/27/2022 [facility] DATE CREATED AUTHOR AUTHOR'S ORGANIZ ATION 01/01/2023 [facility] DATE CREATED AUTHOR AUTHOR'S ORGANIZ ATION 01/21/2023 [facility] DATE CREATED AUTHOR AUTHOR'S ORGANIZ ATION 01/29/2023 [facility] DATE CREATED AUTHOR AUTHOR'S ORGANIZ ATION 06/03/2023 [facility] DATE CREATED AUTHOR AUTHOR'S ORGANIZ ATION 03/22/2024 [facility] DATE CREATED AUTHOR AUTHOR'S ORGANIZ ATION 05/13/2024 [facility] DATE CREATED AUTHOR AUTHOR'S ORGANIZ ATION 05/15/2024 [facility] REASON FOR VISIT (unrecogniz ed section and content) FOLLOW UP MED REFILL MRI RES ULTSRECHECKRIGHT SI JOINT INJ/DSFOLLOW UP AFTER RIGHT SI JOINT INJ1 MONTH RECHECK1 MO1 MONTH1 MONo Information1 MONTH FOLLOW UP1 MONTHMEDS REFILL1 MO4 WEEK RECHECK1 MONTHNo InformationSPINAL CORD STIMULATORSCS TRIALNo InformationMEDSNo InformationNeurosurgery Office Notesreferred by Dr. Remy Spondylosis w/Radiculopathy Lumbar1 MONTHNo Information4 WEEKSNo InformationNo Information4 WEEKSNo InformationNo Information1 MONTH FOLLOW UPNo InformationNo InformationNo InformationNo Information1 month1 MONTH FOLLOW UPNo Information1 MONTH FOLLOW UPNo Information1 MONTHNo InformationNo Information1 MONTH1 monthNo Information1 MONTH FOLLOW UPNo Information Care Team (unrecognized sect ion and content) Team Status: Active Member Role Status Dates Katie Salguero DO Primary Care Provider Active Team Status: Inactive Member Role Status Dates Katie Salguero DO Primary Care Provider Active Shaquille Remy MD Attending Provider Active Team Status: Inactive Member Role Status Dates Katie Salguero DO Primary Care Provider Active Start: December 21, 2023 End: December 21, 2023 Shaquille Remy MD Attending Provider Active Sta rt: December 21, 2023 End: December 21, 2023 Team Status: Inactive Member Role Status Dates Katie Salguero DO Primary Care Provider Active Start: January 19, 2024 End: January 19, 2024 Shaquille Remy MD Attending Provider Active Sta rt: January 19, 2024 End: January 19, 2024 Team Status: Inactive Member Role Status Ramo Salguero DO Primary Care Provider Active Start: February 16, 2024 End: February 16, 2024 Shaquille Remy MD Attending Provider Active Sta rt: February 16, 2024 End: February 16, 2024 Team Status: Inactive Member Role Status Dates Katie Salguero DO Primary Care Provider Active Start: March 19, 2024 End: March 19, 2024 Shaquille Remy MD Attending Provider Active Sta rt: March 19, 2024 End: March 19, 2024 Team Status: Inactive Member Role Status Ramo Salguero DO Primary Care Provider Active Start: April 18, 2024 End: April 18, 2024 Shaquille Remy MD Attending Provider Active Sta rt: April 18, 2024 End: April 18, 2024 Goals (unrecognized section and content) Goals may be documented in a n alternate section FOR RECORDS PERTAINING TO PATIENTS WHO ARE OR HAVE BEEN ENROLLED IN A CHEMICAL DEPENDENCY/SUBSTANCEABUSE PROGRAM, SOME INFORMATION MAY BE OMITTED. This clinical summary was aggregated from multiple sources. Caution should be exercised in using it in the provision of clinical care. This summary normalizes information from multiple sources, and as a consequence, information in this document may materially change the coding, format and clinical context of patient data. In addition, data may be omitted in some cases. CLINICAL DECISIONS SHOULD BE BASED ON THE PRIMARY CLINICAL RECORDS. [facility] provides no warranty or guarantee of the accuracy or completeness of information in this document.
[2024-05-18 16:59] LABS: Basophils Absolute Auto 0.1 10^3/uL (0.0-0.1); Basophils Percent Auto 0.8 % (0.2-2.0); Eosinophils Absolute Auto 0.2 10^3/uL (0.0-0.7); Eosinophils Percent Auto 1.1 % (0.9-7.0); Hemoglobin 14.6 g/dL (14.0-18.0); Immature Granulocytes Abs Auto 0.05 10^3/uL (0.00-0.03); Immature Granulocytes Pct Auto 0.3 % (0.0-0.5); Lymphocytes Absolute Auto 3.6 10^3/uL (1.2-3.8); Lymphocytes Percent Auto 21.1 % (20.5-60.0); Mean Corpuscular HGB Conc 33.2 g/dL (29.9-35.2); Mean Corpuscular Hemoglobin 29.5 pg (25.9-34.0); Mean Corpuscular Volume 88.9 fL (80.0-94.0); Mean Platelet Volume 9.9 fL (9.5-13.5); Monocytes Absolute Auto 0.7 10^3/uL (0.3-0.8); Neutrophils Absolute Auto 12.2 10^3/uL (1.4-6.5); Neutrophils Percent Auto 72.7 % (43.0-75.0); Platelet Count 321 10^3/uL (150-450); Red Blood Count 4.95 10^6/uL (4.70-6.10); Red Cell Distribution Width 14.7 % (11.0-15.0); White Blood Count 16.8 10^3/uL (4.0-11.0)
[2024-05-18 18:38] LABS: Anion Gap 11.2; BUN Creatinine Ratio 7.8; Calcium 8.9 mg/dL (8.5-10.1); Carbon Dioxide 30.6 mmol/L (21.0-32.0); Chloride 100 mmol/L (98-107); Estimated GFR (African America >60 (>=60); Estimated GFR (Non-African Ame >60 (>=60); Glucose 127 mg/dL (74-106); Potassium 3.8 mmol/L (3.5-5.1); Sodium 138 mmol/L (136-145)
== END 2024-05-18 16:34 | disposition home or self-care (01) ==
LOC: LAB 16:35
PROVIDERS: Family Provider Internal Medicine; Visit Provider Internal Medicine Cardiovascular Disease
DX: Z01.812 Encounter for preprocedural laboratory examination (principal)
CPT/HCPCS: 36415; 80048; 85025

== ENCOUNTER 2025-03-10 21:25 | Observation (INO) | payer OTHER, SELFPAY ==
--- NOTE | 2025-03-10 21:30 | ECG_ITS ---
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 Measurements Intervals [place] Rate: 70 P: 42 [place]: 158 QRS: 10 QRSD: 78 T: 26 QT: 382 QTc: 402 Interpretive Statements 1100 Sinus rhythm 3114 Cannot rule out anterior myocardial infarction, age undetermined 8102 Low QRS voltage in chest leads 9150 abnormal ECG Compared to ECG 09/07/2023 02:00:07 Low QRS voltage now present Possible ischemia no longer present Myocardial infarct finding still present Electronically Signed On 03-11-2025 7:08:56 EDT by BARRETT IRBY M.D.
--- OUTSIDE RECORDS SUMMARY | 2025-03-10 21:33 | XMS_ITS | CCD ---
Author Organization [facility] Care Team Providers Care Diet Consultant Name Role Phone LAUREL LOERA) Admitting Un available LAUREL LOERA () Attending Un available LAUREL LOERA) Referring Un available NATALI CSHNEIDER (PA) Attending Unavaila KATIE Ye Referring Unavailab le NATALI SCHNEIDER (PA) Referring Unavaila ble NATALI SCHNEIDER (PA) Referring Unavaila ble NATALI SCHNEIDER (PA) Attending Unavaila NATALI Roa (PA) Referring Unavaila ble KARISSA NOGUERA Admitting Unavailable KARISSA NOGUERA Attending Unavailable KARISSA NOGUERA Referring Unavailable NATALI SCHNEIDER (PA) Attending Unavaila ble LAUREL LOERA) Attending Un available NATALI SCHNEIDER (PA) Referring Unavaila ble LAUREL LOERA) Referring Un available LAUREL LOERA) Referring Un available LAUREL LOERA) Referring Un available LAUREL LOERA) Attending Un available LAUREL LOERA) Referring Un available LAUREL LOERA) Attending Un available LAUREL LOERA) Referring Un available KATIE SALGUERO Primary Care Physician [phone] Shaquille Remy Unavailable DO Katie Salguero Primary Care Provider [phone] MD Shaquille Remy Attending Provider Geovany Valle Unavailable [facility], DR BANDA Primary Care Unavailable ELISHA ., DR CHAUDHRY Admitting Unavailable ELISHA ., DR CHAUDHRY Attending Unavailable ELISHA ., DR CHAUDHRY Consulting Unavailable VASCHAK, DR WILSON Consulting Unavailable Vaschak, Dr. Katie Vera [facility] Thien Roberson Attending Thien Roberson Attending Thien Roberson Referring Thien Roberson Admitting Unava ilable Noemy, Dr. Katie Vera [facility] Thien Roberson Admitting Aidava Thien Bay Attending Thien Roberson Referring Unava ilable Noemy, Dr. Katie Vera [facility] Thien Roberson Attending Jared Salguero, Dr. Katie Vera [facility] Aidava Katie Raymundo [facility] Unavailable Shaqiulle Remy Attending Unavailable Shaquille Remy Admitting Unavailable Katie Salguero [facility] Unavailable Shaquille Remy Attending Unavailable Shaquille Remy Admitting Unavailable DO Katie Salguero [facility] Provider MD Shaquille Remy Attending Provider Denise Welch Attending Unavaila ble NONE, XXXX Referring Unavailable DO Dora RHODES Admitting Unavailabl Durga Rodríguez Attending Unavailable [facility] Cardio, XXXX Consulting Unavailable Frank SERRANO Consulting Unavailable Frank SERRANO Consulting Unavailable Frank SERRANO Consulting Unavailable Durga Thompson Admitting Unavailable Durga Thompson Attending Unavailable Frank SERRANO Consulting Unavailable Frank SERRANO Consulting Unavailable Frank SERRANO Consulting Unavailable SHAQUILLE REMY Referring Unavailable Regina Amador Admitting Unavailable Regina Amador Attending Unavailable SHAQUILLE REMY Referring Unavailable Ezequiel Vogel Attending Unavailable MD Abhi Guerra Attending Unavailable NONE, XXXX Referring Unavailable Denise Welch Attending Unavaila ble NONE, XXXX Referring Unavailable Trey Carranza Attending Unavailable Katie Salguero DO Primary Care Provider ROZ, YUERONG Referring Unavailable ROZ YUANTNG Attending Unavailable KATIE SALGUERO Referring Unavailable KARISSA CAMPBELL Attending Unavailable PAWAN COURTNEY Referring Unavailable KATIE SALGUERO Attending Unavailable MABLE STRICKLAND Attending Unavailable MABLE STRICKLAND Attending Unavailable KATIE SALGUERO Attending Unavailable ALGHOTATUM, MOHAMATal Referring Unavailable ALGHOTHANI, MOHAMAD Referring Unavailable ALGHOTHANI, MOHAMAD Attending Unavailable ALGHOTHANI, LESD Attending Unavailable BELL BALLARD Attending Unavailable ALGHOTHANI, MOHAMAD Attending Unavailable ALGHOTHANI, MOHAMAD Attending Unavailable ALGHOTHANI, MOHAMAD Attending Unavailable ALGHOTHANI, MOHAMAD Admitting Unavailable Allergies Allergy Classification Reported Allergen(s) Allergy Type Date of Onset Reaction(s) Facility (20 sources) montelukast; Translations: [MONTELUKAST] Drug Allergy 2 [facility] (1 source) montelukast Drug Allergy 2 [facility] Repository (1 source) montelukast Drug Allergy [facility] [employer] Other (1 source) No Known Medication Allergies; Translations: [No Known Medication Allergies] Propensity to adverse reactions (disorder) [facility] Repository (4 sources) buPROPion; Translations: [BUPROPION] Drug Allergy 4 Other [facility] Medications Current Medications Medication Drug Class(es) Dates Sig (Normalized) Sig (Original) acetaminophen 325 mg / oxyCODONE hydrochloride 5 mg oral tablet (20 sources) Opioid Agonist Start: 04-18-2024 take 1 tablet by mouth three times daily Oxycodone-Acetami nophen Active 1 TAB PO Three times daily 90 April 18, 2024 Start: 03-09-2022 take 1 tablet by aziza th three times daily as needed Percocet 325 mg-5 mg Tab TAKE 1 TABLET BY MOUTH NEEDED UP TO 3 TIMES DAILY Start Date: 03/09/22 Status: Ordered Start: 02-11-2022 Percocet 5 mg- 325 mg oral tablet Refill(s) 0 Start Date: 02/11/22 Status: Ordered Start: 10-30-2019 End: 07-23-2024 take 1 tablet by mouth three times daily Oxycodone-Acetaminophen Discontinued 1 TAB PO Three times daily March 21, 2024 April 18, 2024 11:40am Albuterol (8 sources) beta2-Adrenergic Agonist Start: 02-11-2022 albut mercedes Refills(s) 0 Start Date: 02/11/22 Status: Ordered amitriptyline hydrochloride 25 mg oral tablet (20 sources) Tricyclic Antidepressant Start: 02-11-2022 amitr iptyline Refills(s) 0 Start Date: 02/11/22 Status: Ordered Start: 07-24-2020 amitriptyline 10 mg Tab Refills(s) 0 Start Date: 05/10/24 Status: Ordered Start: 06-28-2017 take 1 tablet by aziza th once daily at bedtime amitriptyline 25 mg Tab 25 mg = 1 tab(s), Oral, Once a day (at bedtime), # 30 tab(s), Refills(s) 1, Pharmacy: [id number], 175.3, cm, 07/18/24 11:06:00 EDT, Height/Length Dosing, 75.9, kg, 07/18/24 11:06:00 EDT, Weight Dosing Start Date: 07/18/24 Status: Ordered amLODIPine 2.5 mg oral tablet (2 sources) Dihydropyridine Calcium Channel Alfonzo Start: 07-23-2024 End: 01-19-2025 take 1 tablet by mouth once daily amLODIPine (Norvasc) 2.5 MG tablet Indications: Primary hypertension (CMS/HCC) Take 1 tablet (2.5 mg) by mouth Daily 30 tablet 5 07/23/2024 01/19/2025 Active aspirin 81 mg delayed release oral tablet (10 sources) Platelet Aggregation Inhibitor, Nonsteroidal Anti-inflammatory Drug Start: 08-31-2023 take 1 tablet by mouth in the morning [facility] Aspirin Low Dose 81 MG EC tablet Take 81 mg by mouth in the morning. 08/31/2023 Active atenolol 100 mg oral tablet (5 sources) beta-Adrenergic Alfonzo Start: 02-11-2022 take 1 tablet by mouth once daily atenolol 100 mg Tab 100 mg = 1 tab(s), Oral, Daily Start Date: 02/11/22 Status: Ordered atorvastatin 80 mg oral tablet (10 sources) HMG-CoA Reductase Inhibitor Start: 08-31-2023 take 1 tablet by mouth in the morning atorvastatin (Lipitor) 80 MG tablet Take 80 mg by mouth in the morning. 08/31/2023 Active carvedilol 25 mg oral tablet (15 sources) alpha-Adrenergic Alfonzo, beta-Adrenergic Alfonzo Start: 03-07-2024 End: 03-07-2025 take 0.5 tablet by mouth in the morning carvedilol (Coreg) 25 MG tablet Indications: Essential hypertension (CMS/HCC) Take 0.5 tablets (12.5 mg) by mouth in the morning and 0.5 tablets (12.5 mg) in the evening. Take with meals. 30 tablet 3 03/07/2024 03/07/2025 Active Start: 09-29-2023 take 1 tablet by aziza twice daily carvedilol 6.25 mg Tab 6.25 mg = 1 tab(s), Oral, BID, # 60 tab(s), Refills(s) 6, Pharmacy: [facility]/pharmacy #[id number], 175, cm, 09/29/23 15:16:00 EST, Height/Length Dosing, 73.7, kg, 09/29/23 15:16:00 EST, Weight Dosing Start Date: 11/11/23 Status: Ordered Start: 08-31-2023 take 1 tablet by aziza twice daily carvedilol 3.125 mg Tab 3.125 mg = 1 tab(s), Oral, BID, # 60 tab(s), Refills(s) 0, Pharmacy: [facility]/pharmacy #[id number], 175, cm, 08/29/23 16:51:00 EST, Height/Length [...] Status: Ordered clopidogrel 75 mg oral tablet (6 sources) [id number] Platelet Inhibitor Start: 12-14-2023 take 1 tablet by mouth once daily clopidogrel (Plavix) 75 MG tablet Indications: Coronary artery disease involving [place] coronary artery of [place] heart without angina pectoris (CMS/HCC) Take 1 tablet (75 mg) by mouth Daily 90 tablet 3 04/17/2024 Active furosemide 20 mg oral tablet (7 sources) Loop Diuretic Start: 11-11-2023 take 1 tablet by mouth once daily Lasix 20 mg Tab 20 mg = 1 tab(s), Oral, Daily, # 30 tab(s), Refills(s) 6, Pharmacy: [facility]/pharmacy #[id number], 175, cm, 09/29/23 15:16:00 EST, Height/Length Dosing, 73.7, kg, 09/29/23 15:16:00 EST, Weight Dosing Start Date: 11/11/23 Status: Ordered Start: 08-31-2023 take 1 tablet by aziza once daily Lasix 20 mg Tab 20 mg = 1 tab(s), Oral, Daily, # 30 tab(s), Refills(s) 0, Pharmacy: [facility]/pharmacy #[id number], 175, cm, 08/29/23 16:51:00 EST, Height/Length Dosing, 83.7, kg, 08/29/23 16:51:00 EST, Weight Dosing Start Date: 08/31/23 Status: Ordered gabapentin 300 mg oral capsule (20 sources) Anti-epileptic Agent Start: 03-09-2022 take 3 capsules by mouth in the morning, then take 3 capsules by mouth in the evening, then take 3 capsules by mouth at bedtime gabapentin (Neurontin) 300 MG capsule Indications: Other chronic pain Take 3 capsules (900 mg) by mouth in the morning and 3 capsules (900 mg) in the evening and 3 capsules (900 mg) before bedtime. 270 capsule 3 06/22/2024 Active Start: 02-11-2022 gabapentin Ref ills(s) 0 Start [...] 30 days Active 24 hr isosorbide mononitrate 60 mg extended release oral tablet (13 sources) Nitrate Vasodilator Start: 06-15-2024 End: 07-23-2024 take 1 tablet by mouth once daily isosorbide mononitrate ER (Imdur) 60 MG 24 hr tablet Indications: Coronary artery disease involving [place] coronary artery of [place] heart without angina pectoris (CMS/HCC) Take 1 tablet (60 mg) by mouth Daily 07/23/2024 Active Start: 09-29-2023 End: 07-23-2024 take 1 tablet by mouth once daily isosorbide mononitrate ER (Imdur) 30 MG 24 hr tablet Indications: Coronary artery disease involving [place] coronary artery of [place] heart without angina pectoris (CMS/HCC) Take 1 tablet (30 mg) by mouth Daily Do not crush or chew. 90 tablet 3 02/06/2024 Active lisinopril 10 mg oral tablet (20 sources) Angiotensin Converting Enzyme Inhibitor Start: 02-11-2022 take 1 tablet by mouth once daily lisinopril 10 mg Tab TAKE 1 TABLET BY MOUTH EVERY DAY FOR 90 DAYS Start Date: 03/09/22 Status: Ordered losartan potassium 100 mg oral tablet (10 sources) Angiotensin 2 Receptor Alfonzo Start: 02-17-2024 End: 02-11-2025 take 0.5 tablet by mouth in the morning losartan (Cozaar) 100 MG tablet Indications: Essential hypertension (CMS/HCC) Take 0.5 tablets (50 mg) by mouth in the morning and 0.5 tablets (50 mg) before bedtime. 90 tablet 3 02/17/2024 02/11/2025 Active Start: 12-09-2023 take 1 tablet by aziza th twice daily losartan 25 mg Tab 25 mg = 1 tab(s), Oral, BID, # 60 tab(s), Refills(s) 0, Pharmacy: [facility]/pharmacy #[id number], 175, cm, 12/09/23 1:00:00 EST, Height/Length Dosing, 75.7, kg, 12/09/23 1:00:00 EST, Weight Dosing Start Date: 12/09/23 Status: Ordered Start: 11-11-2023 losartan 50 mg Tab 25 mg = 0.5 tab(s), Oral, Daily, # 15 tab(s), Refills(s) 6, [id number] 175, cm, 09/29/23 15:16:00 EST, Height/Length Dosing, 73.7, kg, 09/29/23 15:16:00 EST, Weight Dosing Start Date: 11/11/23 Status: Ordered Start: 08-31-2023 losartan 50 mg Tab 25 mg = 0.5 tab(s), Oral, Daily, # 30 tab(s), Refills(s) 0, [id number] 175, cm, 08/29/23 16:51:00 EST, Height/Length Dosing, 83.7, kg, 08/29/23 16:51:00 EST, Weight Dosing Start Date: 08/31/23 Status: Ordered nitroglycerin 0.4 mg sublingual tablet (5 sources) Nitrate Vasodilator Start: 05-10-2024 nitroglyce rin 0.4 mg sublingual Tab Refills(s) 0 Start Date: 05/10/24 Status: Ordered Start: 12-16-2023 nitroglycerin (Nitrostat) 0.4 MG SL tablet Indications: Coronary artery disease involving [place] coronary artery of [place] heart with angina pectoris (CMS/HCC) Place 1 tablet (0.4 mg) under the tongue every 5 (five) minutes if needed for chest pain 25 tablet 3 12/16/2023 Active pantoprazole 40 mg delayed release oral tablet (4 sources) Proton Pump Inhibitor Start: 02-17-2024 End: 02-11-[address] Tab Refills(s) 0 Start Date: 07/18/24 Status: Ordered 12 hr ranolazine 500 mg extended release oral tablet (9 sources) Anti-anginal Start: 12-14-2023 take 1 tablet by mouth every twelve hours in the morning ranolazine (Ranexa) 500 MG 12 hr tablet Indications: Coronary artery disease involving [place] coronary artery of [place] heart with angina pectoris (CMS/HCC) Take 1 tablet (500 mg) by mouth in the morning and 1 tablet (500 mg) before bedtime. Do not crush, chew, or split.. 60 tablet 11 12/14/2023 Active Start: 12-21-2023 take 1 tablet by aziza th twice daily Ranexa 500 mg Tab-ER 500 mg = 1 tab(s), Oral, BID, # 60 tab(s), Refills(s) 3, [id number] 175, cm, 09/29/23 15:16:00 EST, Height/Length [...] BID, # 60 tab(s), Refills(s) 6, [id number] 175, cm, 09/29/23 15:16:00 EST, Height/Length Dosing, 73.7, kg, 09/29/23 15:16:00 EST, Weight Dosing Start Date: 11/11/23 Status: Ordered Start: 08-31-2023 take 1 tablet by [facility] twice daily ticagrelor 90 mg oral tablet 90 mg = 1 tab(s), Oral, BID, # 60 tab(s), Refills(s) 0, [id number] 175, cm, 08/29/23 16:51:00 EST, Height/Length Dosing, 83.7, kg, 08/29/23 16:51:00 EST, Weight Dosing Start Date: 08/31/23 Status: Ordered tiZANidine 4 mg oral tablet (20 sources) Central alpha-2 Adrenergic Agonist Start: 07-24-2020 take 4 mg by mouth twice daily Tizanidine Active 4 MG PO Twice daily July 24, 2020 12:00am work excuse (7 sources) Start: 08-31-2023 work excuse wo rk excuse, 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 08/24/2023 06/28/2024 Discontinued (Reorder) Start: 07-24-2020 End: 04-20-2021 take 10 mg by mouth three times daily Cyclobenzaprine Discontinued 10 MG PO Three times daily July 24, 2020 12:00am April 20, 2021 1:56pm DULoxetine 30 mg delayed release oral capsule (1 source) Serotonin and Norepinephrine Reuptake Inhibitor Start: 05-10-2024 End: 08-08-2024 take 2 tablets by mouth once daily duloxetine 30 mg oral delayed release capsule 60 mg = 2 cap(s), Oral, Daily, take one tablet in the am for the first week then take 2 tablets ongoing, X 30 day(s), # 60 cap(s), Refills(s) 2, Pharmacy: [id number], 175.3, cm, 05/10/24 13:57:00 EDT, [...] Documented Da te Episodic/Chronic Acute myocardial infarction (5 sources) ST elevation (STEMI) myocardial infarction of unspecified site; Translations: [Myocardial infarction] Onset: 08-29-2023 Chronic Anxiety disorders (20 sources) Generalized anxiety disorder; Translations: [Generalized anxiety disorder] Onset: 09-06-2023 09-06-2023 Chronic Asthma (20 sources) Exacerbation of asthma; Translations: [Unspecified asthma with (acute) exacerbation] Onset: 01-25-2023 Chronic Complication of device; implant or graft (2 [...] Onset: 01-17-2018 Episodic Congestive heart failure; nonhypertensive (4 sources) Congestive heart failure 12-09-2023 Chronic Coronary atherosclerosis and other heart disease (17 sources) Coronary atherosclerosis; Translations: [Atherosclerotic heart disease of [place] coronary artery without angina pectoris] Onset: 09-06-2023 Chronic Disorders of lipid metabolism (20 sources) Hyperlipidemia; Translations: [Hyperlipidemia, unspecified] Onset: 08-29-2023 Chronic Essential hypertension (9 sources) Essential (primary) hypertension; Translations: [Essential hypertension] Onset: 06-08-2018 Chronic Headache; including migraine (20 sources) Migraine; Translations: [Other migraine, not intractable, without status migrainosus] Onset: 09-06-2023 09-06-2023 Chronic Hyperplasia of prostate (3 sources) Hyperplasia of prostate; Translations: [Benign prostatic hyperplasia with lower urinary tract symptoms] Onset: 09-06-2023 09-06-2023 Chronic Hypertension with complications and secondary hypertension (5 sources) Hypertensive emergency; Translations: [Hypertensive emergency] Onset: 12-09-2023 Chronic Mood disorders (20 sources) Mild recurrent major depression; Translations: [Major depressive disorder, recurrent episode, mild] Onset: 09-06-2023 07-23-2024 Chronic Nonspecific chest pain (5 sources) Chest pain; Translations: [Chest pain, unspecified] Onset: 12-09-2023 Episodic Osteoarthritis (1 source) Unspecified osteoarthritis, unspecified site; Translations: [Unspecified osteoarthritis, unspecified site] Onset: 01-25-2023 Chronic Other aftercare (2 sources) Other jail (current) drug therapy; Translations: [OTH CORRECTION CURRENT DRUG THERAPY] Onset: 12-29-2022 Episodic Other aftercare (1 source) Long-term current use of drug therapy; Translations: [Other jail (current) drug therapy] Onset: 12-09-2023 Episodic Other circulatory disease (3 sources) Ectatic coronary artery; Translations: [Other specified disorders of arteries and arterioles] Onset: 09-06-2023 09-06-2023 Chronic Other connective tissue disease (20 sources) History of lumbar fusion; Translations: [Arthrodesis status] Episodic Other connective tissue disease (1 source) Arthrodesis status Episodic Other infections; including parasitic (3 sources) Late effects of other and unspecified infectious and parasitic diseases; Translations: [COVID-19 dena wild] Onset: 09-06-2023 09-06-2023 Chronic Other nervous system disorders (20 sources) Chronic [...] Translations: [Polyneuropathy, unspecified] Onset: 08-29-2023 Chronic Other nervous system disorders (3 sources) Chronic pain syndrome; Translations: [Chronic pain syndrome] 07-23-2024 Chronic Other non-traumatic joint disorders (20 sources) [...] lumbar region] Onset: 02-21-2018 Resolved: 06-10-2022 Chronic Substance-related disorders (20 sources) Smoker; Translations: [Tobacco [...] Problem Classification Problem Date Documented Date Episodic/Chronic Calculus of urinary tract (20 sources) Kidney stone; Translations: [Calculus of kidney] Onset: 12-10-2011 09-06-2023 Episodic Nutritional deficiencies (20 sources) Vitamin D deficiency; Translations: [Vitamin D deficiency, unspecified] Onset: 09-06-2023 Resolved: 01-11-2024 01-11-2024 Chronic Other lower respiratory disease (2 sources) Other forms of dyspnea; Translations: [Other forms of dyspnea] Onset: 04-25-2024 Episodic Other nervous system disorders (1 source) Other abnormalities of gait and mobility; Translations: [Other abnormalities of gait and mobility] Onset: 01-17-2018 Episodic Other nervous system disorders (3 sources) Impairment of balance; Translations: [Other abnormalities of gait and mobility] Onset: 02-01-2024 02-01-2024 Episodic Other screening for suspected conditions (not mental disorders or infectious disease) (4 sources) Patient encounter status; Translations: [Encounter for screening for malignant neoplasm of colon] Onset: 05-04-2024 07-23-2024 Episodic Spondylosis; intervertebral disc disorders; other back problems (20 sources) Radiculopathy, lumbar region; Translations: [Low back pain] Onset: 01-17-2018 Episodic Unclassified (1 source) Other low back pain M54.59 Onset: 01-15-2022 Resolved: 01-15-2022 Unclassified (4 sources) Stent, device (physical object) 12-09-2023 Results Test Name Value Interpretation Reference Range Facility Office Visiton 03-07-2025 Follow-up visit [id number] GrzegorzAfrica morrison P 1980 M Date Provider Department Center 03/07/2025 Maykel-BELL BALLARD HAILEY Dominguez Family History Problem Relation Age of Onset Heart attack Mother 56 Heart attack Maternal Grandfather Family Status - Relation Status Age at Mother Maternal Grandfather Level of Service:08885 [place] OFFICE/OUTPATIENT ESTABLISHED MOD MDM 30 MIN Normal [facility] Office Visiton 12-17-2024 Follow-up visit [id number] GrzegorzAfrica morrison P 1980 M [facility] Provider Department Center 12/17/2024 ISADORA BAUMANN Family History Problem Relation Age of Onset Heart attack Mother 56 Heart attack Maternal Grandfather Family Status - Relation Status Age at Mother Maternal Grandfather Level of Service:23757 [place] OFFICE/OUTPATIENT ESTABLISHED LOW MDM 20 MIN Normal [facility] Office Visiton 06-15-2024 Follow-up visit [id number] Africa Lantigua P 1980 [facility] Provider Department Center 06/15/2024 ISADORA BAUMANN Family History Problem Relation Age of Onset Heart attack Mother 56 Heart attack Maternal Grandfather Family Status - Relation Status Age at Mother Maternal Grandfather Level of Service:13488 [place] OFFICE/OUTPATIENT ESTABLISHED LOW MDM 20 MIN Normal [facility] 05-24-2024 --- Attestation signed by Isadora Townsend MD at 05/24/2024 11:17 AM H and P reviewed. No significant changes. Patient presenting with abnormal stress. Plan to proceed with cath. Procedure was explained to patient at length and in detail. Risks, benefits, and alternatives were discussed. Patient is informed that risks of this invasive procedure include, but are not limited to, bleeding, hematoma, kidney injury, CVA, arrythmia requiring defibrillation, need for emergent open heart surgery, and . Patient understands these risks and wishes to proceed. Isadora Townsend MD H&P reviewed. The patient was examined and there are no changes to the H&P. Plan to proceed with coronary angiography due to unstable angina and abnormal stress test. Procedure was explained to patient at length and in detail. Risks, benefits, and alternatives were discussed. Patient is informed that risks of this invasive procedure include, but are not limited to, bleeding, hematoma, kidney injury, CVA, arrythmia requiring defibrillation, need for emergent open heart surgery, and . Patient understands these risks and wishes to proceed. Signed, Berna Tabares MD PGY-4 Handbag Operator Pager: [phone] [facility] NURSNOTEon 05-24-2024 NURSNOTE RN educated pt on d/ c instructions. RN encouraged pt to voice any questions or concerns. Pt verbalizes no questions or concerns at this time. Pt was wheeled off of unit with all of belongings. [facility] HPon 05-04-2024 Cardiology Clinic No te Chief Complaint: Follow up, history of CAD [...] Primary hypertension 4. Coronary artery disease involving [place] coronary artery of [place] heart, unspecified whether angina present 5. Tobacco [...] arrythmia requiring defibrillation, need (more content not included)... Normal [facility] Office Visiton 05-04-2024 Follow-up visit [id number] Africa Lantigua P 1980 M Date Provider Department Center 05/04/2024 ISADORA BAUMANN Family History Problem Relation Age of Onset Heart attack Mother 56 Heart attack Maternal Grandfather Family Status - Relation Status Age at Mother Maternal Grandfather Level of Service:75778 [place] OFFICE/OUTPATIENT ESTABLISHED MOD MDM 30 MIN Normal [facility] Orders Onlyon 05-04-2024 Orders Only [id number] Africa Lantigua n P 1980 M Date Provider Department Center 05/04/2024 JAVIER SANDERS Family History Problem Relation Age of Onset Heart attack Mother 56 Heart attack Maternal Grandfather Family Status - Relation Status Age at Mother Maternal Grandfather Normal [facility] Office Visiton 04-06-2024 Follow-up visit [id number] Africa Lantigua P 1980 M Date [facility] 04/06/2024 ISADORA BAUMANN Family History Problem Relation Age of Onset Heart attack Mother 56 Heart attack Maternal Grandfather Family Status - Relation Status Age at Mother Maternal Grandfather Level of Service:20025 [place] OFFICE/OUTPATIENT NEW MODERATE MDM 45 MINUTES Normal [facility] Referrals Officeon Referrals Office [id number] TIFF Normal [facility] MR THORACIC SPINE WO CONTRAS Ton 01-24-2024 [...] BY: Katie John, DO Normal Not Available BMPon 12-09-2023 Anion gap [Moles/Vol] 12 mmol/L Normal 6-16 [facility] Comment on above: Performed By: #### 2 409041, 2513707, 87205896, 08498211, 58392708 ####[facility] [address] [place] [address] Calcium [Mass/Vol] 9.4 mg/dL Normal 8.9-11.1 [facility] Comment on above: Performed By: #### 2 259423, 5217431, 15454438, 21133884, 08617776 ####[facility] [address] [place] [address] Chloride [Moles/Vol] 105 mmol/L Normal 101-111 [facility] Comment on above: Performed By: #### 2 741662, 3096135, 77155905, 59804979, 31351109 ####[facility] [address] [place] [address] CO2 [Moles/Vol] 26 mmol/L Normal 21-31 [facility] Comment on above: Performed By: #### 2 544279, 0881359, 73005231, 04914343, 20485495 ####[facility] [address] [place] [address] Creatinine [Mass/Vol] 1.6 mg/dL High 0.5-1.3 [facility] Comment on above: Performed By: #### 2 317038, 0172304, 75009148, 33860292, 70754330 ####[facility] [address] [place] [address] Glucose [Mass/Vol] 110 mg/dL Normal 55-199 [facility] Comment on above: Performed By: #### 2 667059, 9417596, 46101291, 85933482, 95016881 ####[facility] [address] [place] [address] Potassium [Moles/Vol] 4.1 mmol/L Normal 3.5-5.3 [facility] Comment on above: Performed By: #### 2 751053, 1636391, 70504164, 94672630, 95614191 ####[facility] [address] [place] [address] Sodium [Moles/Vol] 139 mmol/L Normal 135-145 [facility] Comment on above: Performed By: #### 2 552687, 7862712, 67576084, 82975884, 74065729 ####[address] [address] Urea nitrogen [Mass/Vol] 15 mg/dL Normal 5-21 [facility] Comment on above: Performed By: #### 2 233084, 1564781, 66607179, 82422316, 45807582 ####[address] [address] Urea nitrogen/Creatinine [Mass ratio] 9 No Units Low 10-20 [facility] Comment on above: Performed By: #### 2 208011, 4099624, 73477704, 91048753, 91297669 ####[address] [address] CBC w/ Auto Diffon 4 Basophils/100 WBC (Bld) 1.0 % Normal 0.0-2.0 [facility] Comment on above: Performed By: #### 2 962255, 2152858, 38772435, 84875568, 20338808 ####[address] [place] [address] Basophils/Leukocytes Auto (Bld) [Pure # fraction] 0.1 E9/L Normal 0.0-0.2 [facility] Comment on above: Performed By: #### 2 807194, 0799563, 86641644, 94710433, 33294404 ####[facility] [address] [place] [address] Eosinophils (Bld) [#/Vol] 0.6 E9/L High 0.0-0.5 [facility] Comment on above: Performed By: #### 2 869008, 9417215, 90607534, 03971469, 43784947 ####[address] [place] [address] Eosinophils/100 WBC (Bld) 5.8 % Normal 0.0-8.0 [facility] Comment on above: Performed By: #### 2 031199, 4814651, 99844196, 71474905, 43713831 ####[address] [place] [address] Erythrocyte distribution width (RBC) [Ratio] 16.4 % High 10.9-14.2 [facility] Comment on above: Performed By: #### 2 797031, 4348385, 79586362, 25837252, 08468848 ####[address] [place] [address] Hematocrit (Bld) [Volume fraction] 39.8 % Normal 37.7-49.0 [facility] Comment on above: Performed By: #### 2 061854, 0578463, 57357013, 47374833, 10282631 ####[address] [place] [address] Hemoglobin (Bld) [Mass/Vol] 13.8 g/dL Normal 13.5-17.5 [facility] Comment on above: Performed By: #### 2 294999, 2509862, 50347565, 31828260, 50385851 ####[address] [place] [address] Lymphocytes (Bld) [#/Vol] 3.1 E9/L Normal 1.0-4.0 [facility] Comment on above: Performed By: #### 2 308666, 7947881, 99454982, 99657412, 40782366 ####[facility] [address] [place] [address] Lymphocytes/100 WBC (Bld) 28.6 % Normal 14.0-50.0 [facility] Comment on above: Performed By: #### 2 631846, 4053397, 46724791, 71383967, 04024125 ####[address] [place] [address] MCH (RBC) [Entitic mass] 29.9 pg Normal 27.0-34.0 [facility] Comment on above: Performed By: #### 2 975063, 2285015, 02438041, 25745504, 50705342 ####[address] [address] MCHC (RBC) [Mass/Vol] 34.7 g/dL Normal 31.4-36.0 [facility] Comment on above: Performed By: #### 2 268635, 1226050, 32821810, 84003748, 59416758 ####[address] [address] MCV (RBC) [Entitic vol] 86.2 fL Normal 80.0-100.0 [facility] Comment on above: Performed By: #### 2 718789, 4346085, 67435769, 60735010, 25368410 ####[address] [address] Monocytes (Bld) [#/Vol] 0.6 E9/L Normal 0.2-1.0 [facility] Comment on above: Performed By: #### 2 126232, 6726713, 88140831, 17356088, 86967752 ####[address] [address] Neutrophils (Bld) [#/Vol] 6.3 E9/L Normal 2.0-7.5 [facility] Comment on above: Performed By: #### 2 883547, 5357136, 99670974, 20510620, 13490593 ####[address] [place] [address] Neutrophils/100 WBC (Bld) 59.1 % Normal 36.0-75.0 [facility] Comment on above: Performed By: #### 2 372542, 4333235, 36293585, 74481235, 95481583 ####[address] [place] [address] Platelet mean volume (Bld) [Entitic vol] 8.2 fL Normal 6.4-10.8 [facility] Comment on above: Performed By: #### 2 097017, 7457732, 48847224, 38481388, 44563812 ####[address] [address] Platelets (Bld) [#/Vol] 308.0 E9/L Normal 150.0-500.0 [facility] Comment on above: Performed By: #### 2 775343, 3318337, 49463266, 61883258, 01945119 ####[address] [address] RBC (Bld) [#/Vol] 4.6 E12/L Normal 4.3-5.9 [facility] Comment on above: Performed By: #### 2 782634, 8934870, 97910799, 56984161, 87544954 ####[address] [address] WBC corrected for nucl RBC Auto (Bld) [#/Vol] 10.7 E9/L Normal 4.0-11.0 [facility] Comment on above: Performed By: #### 2 318754, 7921419, 98995013, 11974898, 88279997 ####[address] [place] [address] CHEMISTRYOrdered By: SYSTEM SYSTEM on 12-09-2023 Troponin [...] High Sensitivity Troponin I Instructions For Use, [employer], May 2018) Troponin 11.80 pg/mL Low 15.90 - 38.40 pg/mL [facility] Comment on above: Interpretive Data: T he 95% CI (Confidence Interval) PPV (Positive Predictive Value) for myocardial infarction in females is 38 pg/mL, in males 51 pg/mL. The results should be used in conjunction with clinical conditions of myocardial infarction. (Access High Sensitivity Troponin I Instructions For Use, [employer], May 2018) Cholesterol [Mass/Vol] 171 mg/dL Normal [...] High Sensitivity Troponin I Instructions For Use, [employer], May 2018) Anion gap [Moles/Vol] 12 mmol/L [...] (Bld) [Mass fraction] 6.1 % High <=5.9% [facility] ChemAutoSS COAGULATIONOrdered By: Isi Longoria on 12-09-2023 aPTT Coag (PPP) [Time] 34.7 s Normal 25.1 - 36.5 second(s) [facility] Auto Coag Comment on above: Interpretive Data: P cristel 15 days - 4 weeks 1 - [...] the same coagulation reagent and instrumentation as [facility]. Currently there are no coagulation studies available worldwide for children to 14 days, and no normal ranges. Heparin therapeutic range (represented by Anti-Factor Xa activity of 0.2 - 0.4 U/mL) corresponds to PTT of 56.6 - 109.0 sec. INR Coag (PPP) [Relative time] 0.97 {INR} Invalid Interpretation Code [facility] Auto Coag Comment on above: Interpretive Data: I NR results are specifically intended to assess patients stabilized on long-term Anticoagulation therapy suggested INR s Less Intensive Anticoagulation 2.0 3.0 Conventional Range 3.0 4.5 PT Coag (PPP) [Time] 10.9 s Normal 9.4 - 1 2.5 second(s) [facility] Auto Coag Comment on above: Interpretive Data: [...] the same coagulation reagent and instrumentation as [facility]. Currently there are no coagulation studies available worldwide for children to 14 days, and no normal ranges. Consent for Treatmenton Consent for Treatment [id number]#1.00T IFF Normal [facility] Consultation Noteon 12-09-19 Consultation Note Chief Complaint [...] not improve he sought medical attention at [facility] emergency room. In the emergency [...] STEMI due to plaque rupture and acute ID of the mid LAD, status post primary [...] patient will additionally be counseled by the Cloth Classer team and in follow-up. [1] Subsequent echocardiogram [...] thoughts. Assessment (more content not included)... Normal [facility] Comment on above: Result Comment: Elec tronically Signed By: ZACH RODNEY, Frank Westbrook\.anne\Date and Time Signed: 12/09/23 08:13 EST Discharge Instructionson Discharge Instructions [id number]#[id number] IFF Normal [facility] Discharge Note-Nursingon Discharge Note-Nursing DENISE LANTIGUA :1980 Visit Date:12/09/2023 Inpatient Discharge Instructions Your Care Team Admitting Physician - Dora RHODES DO Physician - [facility] Cardio, XXXX ZCAH RODNEY, Frank Westbrook Reason for Your Visit Pt. reports high blood pressure that past few days and is now associatted with chest pain. Your Diagnosis Chest pain CAD in [place] artery Hypertensive emergency Smoker Chronic back pain On deep vein thrombosis (DVT) prophylaxis Chest pain Shortness of breath Tests Performed BMP -- Results Pending -- CBC w/ Auto Diff -- Results Pending -- Echo Transthoracic Complete XR Chest Single View Please visit your patient portal for your results or contact your primary care physician. This Is Your Medications List [facility] Prescription (work excuse) acetaminophen-oxycodone (Percocet 325 mg-5 [...] Pending Diagnostic Test Results None Pharmacy Information [facility] [place] Discharge Instructions Please return to ER if symptoms change or worsen. Please take medication as prescribed. Please monitor blood pressure. Please follow-up with cardiology New Follow Up Appointments after Discharge Follow Up with KATIE SALGUERO When: 12/14/2023 10:30 AM EST Where: [address] [place] [address]- Business (1) Follow Up with Rebekah RODNEY, Denise Valdez When: Within 1 to 2 weeks Comments: Call for followup appointment Call physician if symptoms worsen Where: [place] [address]- Business (1) Medications What How Much When Instructions Next Dose Changed losartan (losartan 25 mg Tab) 1 Tablets By Mouth 2 times a day Pickup at [facility]/pharmacy #[id number] 12/08 @ 9 PM Unchanged acetaminophen-oxycodone (Percocet 325 mg-5 mg Tab) TAKE 1 TABLET BY MOUTH NEEDED UP TO 3 TIMES DAILY NEEDED FOR PAIN Unchanged acetaminophen-oxycodone (Percocet 5 mg-325 mg oral tablet) DUPLICATE ENTRY Unchanged aspirin (aspirin 81 mg Oral EC Tab) 1 Tablets By Mouth Every day 3 @ 9 AM Unchanged atorvastatin (atorvastatin 80 mg Tab) 1 Tablets By Mouth Every day 12/09 @ 9 AM Unchanged carvedilol (carvedilol 6.25 mg Tab) 1 Tablets By Mouth 2 times a day 12/08 @ 9 PM Unchanged carvedilol (carvedilol 6.25 mg Tab) TWICE PER DAY 12/09 @ 9 PM Unchanged cyclobenzaprine (cyclobenzaprine 10 [...] excuse) 0 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 N/A Unchanged ranolazine (Ranexa 500 mg Tab-ER) 1 Tablets By Mouth 2 times a day 32 @ 9 AM Unchanged ticagrelor (ticagrelor 90 mg oral tablet) 1 Tablets By Mouth 2 times a day 12/08 @ 9 PM Pharmacy Information [facility]/pharmacy #[id number]: [address] [place], [place] [id number] [phone] What When Comments Stop Taking albuterol Test Results CBC BMP WBC: 10.7 E9/L (12/09/23 01:05:00) Glucose Lvl: 110 mg/dL (12/09/23 01:05:00) RBC: 4.6 E12/L (12/09/23 01:05:00) BUN: 15 mg/dL (12/09/23 01:05:00) HGB: 13.8 gm/dL (12/09/23 01:05:00) Creatinine: 1.6 mg/dL High (12/09/23 01:05:00) Hct: 39.8 % (12/09/23 01:05:00) BUN/Creat Ratio: 9 Low (12/09/23 01:05:00) MCV: 86.2 fL (12/09/23 01:05:00) Sodium Lvl: 139 mmol/L (12/09/23 01:05:00) MCH: 29.9 pg (12/09/23 01:05:00) Potassium Lvl: 4.1 mmol/L (12/09/23 01:05:00) MCHC: 34.7 gm/dL (12/09/23 01:05:00) Chloride: 105 mmol/L (12/09/23 01:05:00) RDW: 16.4 % High (12/09/23 01:05:00) (more content not included)... Normal [facility] ED Clinical Summaryon 2023 ED Clinical Summary (Inserted Image. Aida ble to display) [address] [place] [id number] ED Clinical Summary Person Information Name: DENISE LANTIGUA [place] Age: 43 Years : 1980 Sex: Male Language: Nepalese PCP: KATIE SALGUERO DO Marital Status: Single Visit Id: Visit Reason: Shortness of breath; Chest pain; HIGH BP - CHEST PAIN/ LEFT ARM PAIN Speciality: Acuity: 2 Enc Type: Observation Med Service: Emergency Arrival: 12/09/2023 00:52:27 Discharge: LOS: 000 01:43 Checkin: 12/09/2023 00:52:27 Checkout: 12/09/2023 02:35:47 Dispo Type: Admitted as IP to this [facility] EVENTS: Event Name Event Status Request Date/Time [...] 02:10:12 Patient Care Request 12/09/2023 02:10:12 ADDRESS: [address] [place] [phone] PHYS DOC NOTES: MEDICAL INFORMATION: Prescriptions Given: [...] excuse) 0. 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 Refills: 0. ranolazine (Ranexa 500 mg Tab-ER) 1 Tablets By Mouth 2 times a day. Refills: 3. ticagrelor (ticagrelor 90 mg oral tablet) 1 Tablets By Mouth 2 times a day. Refills: 6. PATIENT EDUCATION INFORMATION: Instructions: Follow up: DIAGNOSIS: Chest pain; Hypertensive emergency Normal [facility] ED Note-Physicianon 12-09-19 ED Note-Physician Basic Information Time Seen: Timmy SHAW Valentin Adan 12/09/2023 00:55 Chief Complaint Pt. reports high blood pressure that past few days and is now associatted with chest pain. History of Present Illness HPI: Patient is a 43-year-old male with past medical history of of ID with stent, hypertension, hyperlipidemia, CHF who presents [...] and Complexity of Problems Differential Diagnosis: [] [facility] Data External documents reviewed: N/A My EKG [...] Tab, 0. (more content not included)... Normal [facility] Comment on above: Result Comment: Elec tronically Signed By: Valentin Warner DO\.br\Date and Time Signed: 12/09/23 02:05 EST ED Patient Education Noteon 12-09-2023 ED Patient Education Note Normal [facility] ED Patient Summaryon 024 ED Patient Summary (Inserted Image. Aida ble to display) [place] [id number] Patient Discharge Instructions Person Information Name: DENISE LANTIGUA Age: 43 Years Arrival Date: 12/09/2023 00:52:27 Discharge Diagnosis: Chest pain; Hypertensive emergency Primary Care Physician: KATIE SALGUERO DO Provider Information Primary Provider: Valentin Warner DO Advanced Distribution Sales Representative:None The exam and treatment you received in the Emergency Department were for an urgent problem and are not intended as complete care. It is important that you follow up with a doctor, nurse practitioner, or physician?s certified pharmacist assistant for ongoing care. If your symptoms [...] opioids can be used to help relieve vaagzdsu-ri-flktkd pain and are often prescribed following a [...] be struggling with addiction, tell your health care coordination manager and ask for guidance or call [facility] National Helpline at 3-769-984-HELP. v Source: US Department of Health and Human Services/Center for Disease Control & Prevention [facility] Medications Given: Medication Dose Route asp (more content not included)... [facility] HEMATOLOGYOrdered By: SYSTEM SYSTEM on 12-09-2023 Basophils/100 [...] Normal 4.0 - 11.0 E9/L Remisol Heme [id number] 12-09-2023 HbA1c (Bld) [Mass fraction] 6.1 % High <=5.9 [facility] Comment on above: Performed By: #### 1 5253234, 6326381, 4131437, 4069331 #### [facility] [address] [place] [address] Inpatient Clinical Summaryon 12-09-2023 Inpatient Clinical Summary [address] [address] Clinical Summary Person Information: Name: DENISE LANTIGUA Age: 43 Years : 1980 Sex: Male PCP: KATIE SALGUERO DO Marital Status: Single Race: White Ethnicity: Non- or Language: Nepalese Visit Id: Visit Reason: Shortness of breath; Chest pain; HIGH BP - CHEST PAIN/ LEFT ARM PAIN Speciality: Acuity: Enc Type: Observation Med Service: Medical Arrival: 12/09/2023 00:52:27 Discharge: Dispo Type: Admitted as IP to this Hosp Address: [address] [place] [phone] Provider Notes: Diagnosis: 1:Chest pain; 2:CAD in [place] artery; 3:Hypertensive emergency; 4:Smoker; 5:Chronic back pain; 6:On deep vein thrombosis (DVT) prophylaxis Problems Active Hypertensive emergency CAD in [place] artery Smoker Smoking Status: Current Every Day [...] excuse) 0. 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 Refills: 0. ranolazine (Ranexa 500 mg Tab-ER) 1 Tablets By Mouth 2 times a day. Refills: 3. ticagrelor (ticagrelor 90 mg oral tablet) 1 Tablets By Mouth 2 times a day. Refills: 6. Care Team Members: Attending Physician: Dora RHODES DO Consulting Physician: [facility] Cardio, XXXX; ZACH RODNEY, Frank Westbrook Referring Physician: Follow up: With: Address: When: Rebekah RODNEY, Denise Valdez [address] [place], [place] [id number] [facility] (1) Within 1 to 2 weeks Comments: Call for followup appointment Call physician if symptoms worsen With: Address: When: [address], [facility] [address] [place] [address] Business (1) 12/14/2023 10:30 AM Patient Education Information: Hypertension, Adult, Dcoa-ml-Qbyr Normal [facility] Inpatient Patient Summaryon 12-09-2023 Inpatient Patient Summary [address] [address] Patient Discharge Instructions PERSON INFORMATION Name: DENISE LANTIGUA Date of : 1980 Current Date: 12/09/2023 13:55:55 PHYSICIANS Admitting Physician: Dora RHODES DO Primary Care Physician: KATIE SALGUERO DO PCP Comment: Discharge Diagnosis: 1:Chest pain; 2:CAD in [place] artery; 3:Hypertensive emergency; 4:Smoker; 5:Chronic back pain; 6:On deep vein thrombosis (DVT) prophylaxis Condition at Discharge: Improved DENISE LANTIGUA has [...] With: Address: When: Rebekah RODNEY, Denise Valdez [address] [place] [address] [facility] (1) Within 1 to 2 weeks Comments: Call for followup appointment Call physician if symptoms worsen With: Address: When: [address], [address] [address] Business (1) 12/14/2023 10:30 AM In the event [...] Medications to Continue Taking That Have Changed [facility]/pharmacy #[id number], [address] [facility] [place] [id number], [phone] START: losartan (losartan 25 mg Tab) 1 [...] excuse) 0. 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 Refills: 0. Last [...] TAKE 1 TABLET (more content not included)... [facility] Insurance Correspondenceon 0 12-09-2023 Insurance Correspondence [id number]#[id number] TIFF [facility] Interdisciplinary Note - Sunil e Manageron 12-09-2023 Interdisciplinary Note - Biology Specimen Technician Pt is awake and alert in bed, [...] updated. probable DC home later today Normal [facility] Comment on above: Result Comment: Elec tronically Signed By: Caesar DELACRUZ, Luzma\.anne\Date and Time Signed: 12/09/23 10:39 EST Lipid Panelon 12-09-2023 Cholesterol [Mass/Vol] 171 mg/dL Normal 120-200 [facility] Comment on above: Performed By: #### 1 9764333, 9751240, 0584689, 5315066 #### [facility] [address] [place] [address] Cholesterol in HDL [Mass/Vol] 28 mg/dL Invalid Interpretation Code [facility] Comment on above: Result Comment: '>= 60 LOW RISK' '<= 40 HIGH RISK' Performed By: #### 1 1233183, 9350336, 5047255, 2111973 #### [facility] [address] [place] [address] Cholesterol in LDL [Mass/Vol] 111 mg/dL Normal <=129 [facility] Comment on above: Performed By: #### 1 3727575, 0934050, 2692731, 1141996 #### [facility] [address] [place] [address] Cholesterol in VLDL [Mass/Vol] 66 mg/dL High 7-40 [facility] Comment on above: Performed By: #### 1 3120974, 4836063, 4678842, 7047454 #### [facility] [address] [place] [address] Triglyceride [Mass/Vol] 328 mg/dL High <=149 [facility] Comment on above: Performed By: #### 1 5393486, 7659690, 3656324, 6113711 #### [facility] [address] [place] [address] Monitor Recordon 12-09-2023 Monitor Record [id number] [facility] [id number]#1.00 TIFF Normal [facility] Monitor Record [id number] TIFF Normal [facility] Monitor Record [id number] TIFF Normal [facility] Monitor Record [id number]#1.00 TIFF Normal [facility] PT & PTTon 12-09-2023 aPTT Coag (PPP) [Time] 34.7 second(s) Normal 25.1-36.5 [facility] Comment on above: Result Comment: Para meter [...] the same coagulation reagent and instrumentation as [facility]. Currently there are no coagulation studies available worldwide for children to 14 days, and no normal ranges. Heparin therapeutic range (represented by Anti-Factor Xa activity of 0.2 - 0.4 U/mL) corresponds to PTT of 56.6 - 109.0 sec. Performed By: #### 2 583713, 2241703, 45302812, 86184326, 04932026 ####[facility] [address] [place] [address] INR Coag (PPP) [Relative time] 0.97 {INR} Invalid Interpretation Code [facility] Comment on above: Result Comment: INR results are specifically intended to assess patients stabilized on long-term Anticoagulation therapy suggested INR?s ?Less Intensive Anticoagulation? 2.0 ? 3.0 Conventional Range 3.0 ? 4.5 Performed By: #### 2 605528, 3205839, 49810173, 56915148, 62760566 ####[facility] [address] [place] [address] PT Coag (PPP) [Time] 10.9 second(s) Normal 9.4-12.5 [facility] Comment on above: Result Comment: 15 d [...] the same coagulation reagent and instrumentation as [facility]. Currently there are no coagulation studies available worldwide for children to 14 days, and no normal ranges. Performed By: #### 2 893607, 8314956, 65753772, 48724445, 92608052 ####[facility] [address] [place] [address] Patient Education - Texton 0 12-09-2023 Patient [...] Keep all follow-up visits. Medicines ? Take cvqy-nwk-fcqrfnj and prescription medicines only as told by [...] For m (more content not included)... Normal [facility] Progress Note-Physicianon Progress Note-Physician Assessment/Plan 1. Chest [...] time given negative troponin 2. CAD in [place] artery (I25.10: Atherosclerotic heart disease of [place] coronary artery without angina pectoris) hx of ID in 08/2023 ASA, brilinta, statin 3. Hypertensive emergency (I16.1: Hypertensive emergency) 2/2 to above Losartan coreg imdur Hydralazine prn 4. Smoker (F17.200: Nicotine dependence, unspecified, uncomplicated) Nicotine patch prn Educate on smoking cessation 5. Chronic back pain (M54.9: Dorsalgia, unspecified) Gabapentin Oxycodone 6. On deep vein thrombosis (DVT) prophylaxis (Z79.899: Other buttermaker continuous churn (current) drug therapy) Enoxaparin 7. elevated Cr [...] Hct: 39.8 % (12/09/23:05:00) MCV: 86.2 fL (12/09/23 01:05:00) MCH: 29.9 pg (12/09/23:05:00) MCHC: 34.7 gm/dL (12/09/23:05:00) RDW: 16.4 % High (12/09/23 01:05:00) Platelet: 308 E9/L (12/09/23 01:05:00) MPV: 8.2 fL (12/09/23 01:05:00) Neutro Auto: 59.1 % (12/09/23 01:05:00) Lymph Auto: 28.6 % (12/09/23 01:05:00) [place] Auto: 5.5 % (12/09/23 01:05:00) Eos Auto: 5.8 % (12/09/23:05:00) Basophil Auto: 1 % (12/09/23 01:05:00) Neutro Absolute: 6.3 E9/L (12/09/23 01:05:00) Lymph Absolute: 3.1 E9/L (12/09/23 01:05:00) [place] Absolute: 0.6 E9/L (12/09/23 01:05:00) Eos Absolute: 0.6 E9/L High (12/09/23 01:05:00) Basophil Absolute: 0.1 E9/L (12/09/23 01:05:00) PT: 10.9 second(s) (12/09/23 01:05:00) INR: 0.97 (12/09/23 01:05:00) PTT: 34.7 second(s) (12/09/23 01:05:00) Glucose Lvl: 110 mg/dL (12/09/23 01:05:00) BUN: 15 mg/dL (12/09/23 01:05:00) Creatinine: 1.6 mg/dL High (12/09/23 01:05:00) eGFR: 54 mL/min/1.73 m2 Low (12/09/23 01:05:00) BUN/Creat Ratio: 9 Low (12/09/23 01:05:00) Sodium Lvl: 139 mmol/L (12/09/23 01:05:00) Potassium Lvl: 4.1 mmol/L (12/09/23:05:00) Chloride: 105 mmol/L (12/09/23 01:05:00) CO2: 26 [...] making. I have verified all of the PA student's documentation for this encounter. Problem List/Past Medical History Ongoing CAD in [place] artery Hypertensive emergency Smoker Historical CHF - Congestive heart failure Hyperlipidemia Hypertension Myocardial infarction Stent Me (more content not included)... Normal [facility] Comment on above: Result Comment: Elec tronically Signed By: Bela DOMINGUEZ studentXuan\.br\Date and Time Signed: 12/09/23 08:43 EST\.br\Electronically Co-Signed By: Durga Thompson DO\.br\Date and Time Co-Signed: 12/09/23 10:42 EST Troponin 0 Hr.on 12-09-2023 Troponin 13.30 pg/mL Low 15.90-38.40 [facility] Comment on above: Result Comment: The 95% CI (Confidence Interval) PPV (Positive Predictive Value) for myocardial infarction in females is 38 pg/mL, in males 51 pg/mL. The results should be used in conjunction with clinical conditions of myocardial infarction. (Access High Sensitivity Troponin I Instructions For Use, [employer], May 2018) Performed By: #### 2 [id number], [id number], [id number], [id number], [id number] ####[facility] [address] [place] [address] Troponin 3 Hr.on 12-09-2023 Troponin 14.30 pg/mL Low 15.90-38.40 [facility] Comment on above: Result Comment: The 95% CI (Confidence Interval) PPV (Positive Predictive Value) for myocardial infarction in females is 38 pg/mL, in males 51 pg/mL. The results should be used in conjunction with clinical conditions of myocardial infarction. (Access High Sensitivity Troponin I Instructions For Use, [employer], May 2018) Performed By: #### 1 [id number], [id number], [id number], [id number] #### [facility] [address] [place] [address] Troponin 6 Hr.on 12-09-2023 Troponin 11.80 pg/mL Low 15.90-38.40 [facility] Comment on above: Result Comment: The 95% CI (Confidence Interval) PPV (Positive Predictive Value) for myocardial infarction in females is 38 pg/mL, in males 51 pg/mL. The results should be used in conjunction with clinical conditions of myocardial infarction. (Access High Sensitivity Troponin I Instructions For Use, [employer] 2018) Performed By: #### 1 [id number] #### [facility] [address] [place] [address] Troponin 9 Hr.on 12-09-2023 Troponin 10.80 pg/mL Low 15.90-38.40 [facility] Comment on above: Result Comment: The 95% CI (Confidence Interval) PPV (Positive Predictive Value) for myocardial infarction in females is 38 pg/mL, in males 51 pg/mL. The results should be used in conjunction with clinical conditions of myocardial infarction. (Access High Sensitivity Troponin I Instructions For Use, [employer] [place], May 2018) Performed By: #### 1 [id number], [id number], [id number], [id number] #### [facility] [address] [place] [address] XR Chest Single Viewon 12-08 XR Chest Single View Exam Date/Time: 12/09/2023 01:13 EST Reason for Exam: Chest pain Report [facility] [phone] IMPRESSION: There are no acute cardiopulmonary changes. [...] mGy = na DAP = na Normal [facility] eGFRon 12-09-2023 eGFR 54 mL/min/1.73 m2 Low >=59 [facility] Comment on above: Order Comment: Order added by Discern Expert. Performed By: #### 2 [id number], 1469347, [id number], 30584322, [id number] ####[facility] [address] [place] [address] Monitor Recordon 11-01-2023 Monitor Record [id number]#[id number] TIFF Normal [facility] Heart and Vascular Office/Cl inic Noteon 10-16-2023 Heart and Vascular Office/Clinic Note Chief Complaint f/u cath 08/29/23 History of Present Illness Denise Lantigua presents today for a follow-up evaluation of ID, primary PCI of the LAD, mild ischemic [...] Assessment/Plan Denise Lantigua has a history of ID, primary PCI of the LAD, mild ischemic [...] with voice recognition artificial intelligence software, specifically [employer], adicate timeads and or [employer]. Substitutions may have occurred with voice recognition and artificial intelligence software. Documentation services were performed after patient or guardian consented to allow [employer] to record this visit. SUSAN civil design specialist and provider reviewed before signing. SUSAN: [...] last 30 days Tobacco Use:., 09/29/2023 Normal [facility] Comment on above: Result Comment: Elec tronically Signed By: Rebekah RODNEY, Denise Valdez\.br\Date and Time Signed: 10/16/23 20:26 EST\.br\Electronically Co-Signed By: Reba Nathan\.br\Date and Time Co-Signed: 09/30/23 12:19 EST [employer]son 10-05-2023 Forms [id number] IFF Normal [facility] Auto Diffon 08-31-2023 Basophils/100 WBC (Bld) 1.1 % Normal 0.0-2.0 [facility] Comment on above: Order Comment: Order Added by Discern Expert. Performed By: #### 1 [id number], 1034005, 3443137, 1839895 #### [facility] [address] [place] [address] Basophils/Leukocytes Auto (Bld) [Pure # fraction] 0.1 E9/L Normal 0.0-0.2 [facility] Comment on above: Order Comment: Order Added by Discern Expert. Performed By: #### 1 9653089, 3979847, 5936728, 8985626 #### [facility] [address] [place] [address] Eosinophils/100 WBC (Bld) 0.9 % Normal 0.0-8.0 [facility] Comment on above: Order Comment: Order Added by Discern Expert. Performed By: #### 1 0191443, 5654967, 8204738, 8474162 #### [facility] [address] [place] [address] Eosinophils/Leukocyte s Auto (Bld) [Pure # fraction] 0.1 E9/L Normal 0.0-0.5 [facility] Comment on above: Order Comment: Order Added by Discern Expert. Performed By: #### 1 [id number], 7354896, 8516702, 7655387 #### [facility] [address] [place] [address] Lymphocytes/100 WBC (Bld) 30.8 % Normal 14.0-50.0 [facility] Comment on above: Order Comment: Order Added by Discern Expert. Performed By: #### 1 2600000, 6021617, 5078018, 2714152 #### [facility] [address] [place] [address] Lymphocytes/Leukocyte s Auto (Bld) [Pure # fraction] 3.2 E9/L Normal 1.0-4.0 [facility] Comment on above: Order Comment: Order Added by Discern Expert. Performed By: #### 1 2737032, 4107658, 5169799, 6083631 #### [facility] [address] [place] [address] Monocytes/100 WBC (Bld) 6.9 % Normal 4.0-14.0 [facility] Comment on above: Order Comment: Order Added by Discern Expert. Performed By: #### 1 1782533, 2844875, 0515167, 4036462 #### [facility] [address] [place] [address] Monocytes/Leukocytes Auto (Bld) [Pure # fraction] 0.7 E9/L Normal 0.2-1.0 [facility] Comment on above: Order Comment: Order Added by Discern Expert. Performed By: #### 1 9634380, 3545901, 1373435, 1644867 #### [facility] [address] [place] [address] Neutrophils/100 WBC (Bld) 60.3 % Normal 36.0-75.0 [facility] Comment on above: Order Comment: Order Added by Discern Expert. Performed By: #### 1 8776519, 8907975, 7091533, 0004218 #### [facility] [address] [place] [address] Neutrophils/Leukocyte s Auto (Bld) [Pure # fraction] 6.2 E9/L Normal 2.0-7.5 [facility] Comment on above: Order Comment: Order Added by Discern Expert. Performed By: #### 1 4449171, 9252695, 1224852, 1802176 #### [facility] [address] [place] [address] BMPon 08-31-2023 Anion gap [Moles/Vol] 13 mmol/L Normal 6-16 [facility] Comment on above: Performed By: #### 1 6062199, 7404650, 8764814, 5319776 #### [facility] [address] [place] [address] Calcium [Mass/Vol] 9.4 mg/dL Normal 8.9-11.1 [facility] Comment on above: Performed By: #### 1 6454176, 4372680, 1620827, 2575541 #### [facility] [address] [place] [address] Chloride [Moles/Vol] 107 mmol/L Normal 101-111 [facility] Comment on above: Performed By: #### 1 6620638, 1302852, 4148425, 4386267 #### [facility] [address] [place] [address] CO2 [Moles/Vol] 23 mmol/L Normal 21-31 [facility] Comment on above: Performed By: #### 1 1945278, 1207194, 7805482, 3237239 #### [facility] [address] [place] [address] Creatinine [Mass/Vol] 1.3 mg/dL Normal 0.5-1.3 [facility] Comment on above: Performed By: #### 1 3437311, 9188551, 1350650, 2845321 #### [facility] [address] [place] [address] Glucose [Mass/Vol] 103 mg/dL Normal 55-199 [facility] Comment on above: Result Comment: If t his glucose result represents a fasting glucose, interpretation should refer to the following reference range: 55-99 mg/dL Performed By: #### 1 8915226, 7467373, 8891583, 9781359 #### [facility] [address] [place] [address] Potassium [Moles/Vol] 4.0 mmol/L Normal 3.5-5.3 [facility] Comment on above: Performed By: #### 1 3833117, 2027006, 3153831, 7629317 #### [facility] [address] [place] [address] Sodium [Moles/Vol] 139 mmol/L Normal 135-145 [facility] Comment on above: Performed By: #### 1 1119035, 7337153, 0927153, 1488929 #### [facility] [address] [place] [address] Urea nitrogen [Mass/Vol] 16 mg/dL Normal 5-21 [facility] Comment on above: Performed By: #### 1 4321152, 2473459, 4529953, 3876010 #### [facility] [address] [place] [address] Urea nitrogen/Creatinine [Mass ratio] 12 No Units Normal 10-20 [facility] Comment on above: Performed By: #### 1 2087192, 8913386, 3052817, 6210418 #### [facility] [address] [place] [address] CBC w/ Auto Diffon 3 Erythrocyte distribution width (RBC) [Ratio] 14.8 % High 10.9-14.2 [facility] Comment on above: Performed By: #### 1 0913709, 9998039, 5196835, 0062333 #### [facility] [address] [place] [address] Hematocrit (Bld) [Volume fraction] 45.7 % Normal 37.7-49.0 [facility] Comment on above: Performed By: #### 1 9732854, 7923562, 0171566, 0824883 #### [facility] [address] [place] [address] Hemoglobin (Bld) [Mass/Vol] 15.5 g/dL Normal 13.5-17.5 [facility] Comment on above: Performed By: #### 1 8489047, 9525323, 1633913, 3233214 #### [facility] [address] [place] [address] MCH (RBC) [Entitic mass] 28.4 pg Normal 27.0-34.0 [facility] Comment on above: Performed By: #### 1 8878415, 3498854, 2336865, 4569739 #### [facility] [address] [place] [address] MCHC (RBC) [Mass/Vol] 33.9 g/dL Normal 31.4-36.0 [facility] Comment on above: Performed By: #### 1 8694034, 1207250, 7908285, 6320662 #### [facility] [address] [place] [address] MCV (RBC) [Entitic vol] 83.8 fL Normal 80.0-100.0 [facility] Comment on above: Performed By: #### 1 1583060, 0794608, 7544931, 8574968 #### [facility] [address] [place] [address] Platelet mean volume (Bld) [Entitic vol] 7.9 fL Normal 6.4-10.8 [facility] Comment on above: Performed By: #### 1 7123673, 1555748, 4675902, 5382357 #### [facility] [address] [place] [address] Platelets (Bld) [#/Vol] 270.0 E9/L Normal 150.0-500.0 [facility] Comment on above: Performed By: #### 1 1731859, 5258167, 2981863, 0100213 #### [facility] [address] [place] [address] RBC (Bld) [#/Vol] 5.5 E12/L Normal 4.3-5.9 [facility] Comment on above: Performed By: #### 1 7072185, 8978231, 3973673, 4591598 #### [facility] [address] [place] [address] WBC corrected for nucl RBC Auto (Bld) [#/Vol] 10.3 E9/L Normal 4.0-11.0 [facility] Comment on above: Performed By: #### 1 5416094, 8808534, 2687033, 7880364 #### [facility] [address] [place] [address] CHEMISTRYOrdered By: SYSTEM SYSTEM on 08-31-2023 Anion gap [Moles/Vol] 13 mmol/L Normal 6 - 16 mEq/L [facility] Calcium [Mass/Vol] 9.4 mg/dL Normal 8.9 - 11. 1 mg/dL [facility] Chloride [Moles/Vol] 107 mmol/L Normal 101 - 1 11 mmol/L [facility] CO2 [Moles/Vol] 23 mmol/L Normal 21 - 31 mmol/L [facility] Creatinine [Mass/Vol] 1.3 mg/dL Normal 0.5 - 1.3 mg/dL [facility] GFR/1.73 sq M.predicted among non-blacks MDRD (S/P/Bld) [Vol rate/Area] 69 mL/min/1.73 m2 Normal >=59mL/min/ 1.73 m2 [facility] Chem S Comment on above: Interpretive Data: [...] - 5.3 mmol/L [facility] Sodium [Moles/Vol] 139 mmol/L Normal 135 - 145 mmol/L [facility] Urea nitrogen [Mass/Vol] 16 mg/dL Normal 5 - 21 mg/dL [facility] Urea nitrogen/Creatinine [Mass ratio] 12 mg/mg Normal - [facility] Remisol Discharge Instructionson Discharge Instructions [id number] TIFF Normal [facility] Discharge Note-Nursingon Discharge Note-Nursing DENISE LANTIGUA [...] Single View This Is Your Medications List [facility] Prescription (work excuse) acetaminophen-oxycodone (Percocet 325 mg-5 [...] Pending Diagnostic Test Results None Pharmacy Information [facility] [place] Discharge Instructions Please return to ER if symptoms change or worsen. Please take medication as prescribed. 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 Please attempt to quit smoking. Previously Scheduled Follow-Up Appointments 2022 2:45 PM EST With: Denise Welch MD Where: [facility] [place] New Follow Up Appointments after Discharge Follow Up with Denise Welch MD When: 09/29/2023 02:45 PM EST Where: [address] [place], [place] Follow Up with KATIE SALGUERO When: 09/06/2023 02:30 PM EST Where: [address] , [address] [address]- [facility] (1) Medications What How Much When Instructions Next Dose New aspirin (aspirin 81 mg Oral EC Tab) 1 Tablets By Mouth Every day Pickup at [facility]/pharmacy #6177 09/01 @ 9 AM New atorvastatin (atorvastatin 80 mg Tab) 1 Tablets By Mouth Every day Pickup at [facility]/pharmacy #6177 09/01 @ 9 AM New carvedilol (carvedilol 3.125 mg Tab) 1 Tablets By Mouth 2 times a day Pickup at [facility]/pharmacy #6177 08/31 @ 9 PM New furosemide (Lasix 20 mg Tab) 1 Tablets By Mouth Every day Pickup at [facility]/pharmacy #6177 09/01 @ 9 AM New losartan (losartan 50 mg Tab) 0.5 Tablets By Mouth Every day Pickup at [facility]/pharmacy #6177 09/01 @ 9 AM New [facility] Prescription (work excuse) 0 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 Printed Prescription APPT 09/29 New ticagrelor (ticagrelor 90 mg oral tablet) 1 Tablets By Mouth 2 times a day Pickup at [facility]/pharmacy #6177 08/31 @ 9 PM Unchanged acetaminophen-oxycodone [...] @ 2 PM, 9 PM Pharmacy Information [facility]/pharmacy #[id number]: [address] [place], [place] [id number] [phone] What How Much When Comments Stop Taking [...] 06:16:00) P (more content not included)... Normal [facility] HEMATOLOGYOrdered By: SYSTEM SYSTEM on 08-31-2023 Basophils/100 [...] 270.0 E9/L Normal 150.0 - 500.0 E9/L [facility] HemeAutoSS RBC (Bld) [#/Vol] 5.5 E12/L Normal 4.3 - 5.9 E12/L [facility] HemeAutoSS WBC corrected for nucl RBC Auto (Bld) [#/Vol] 10.3 E9/L Normal 4.0 - 11.0 E9/L [facility] HemeAutoSS Inpatient Clinical Summaryon 08-31-2023 Inpatient Clinical Summary [place] [address] Clinical Summary Person Information: Name: DENISE LANTIGUA Age: 43 Years : 1980 Sex: Male PCP: KATIE SALGUERO DO Marital Status: Single Race: White Ethnicity: Non- or Language: Nepalese Visit Id: Visit Reason: STEMI Speciality: Acuity: Enc Type: Inpatient Med Service: Medical Arrival: 08/29/2023 16:25:17 Discharge: Dispo Type: Address: [address] [place] [id number] Provider Notes: Diagnosis: 1:STEMI (ST elevation myocardial [...] excuse) 0. 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 Refills: 0. ticagrelor (ticagrelor 90 mg oral tablet) 1 Tablets By Mouth 2 times a day. Refills: 0. Care Team Members: Attending Physician: Durga Thompson DO Consulting Physician: Frank SERRANO MD Referring Physician: Follow up: With: Address: When: Denise Welch MD [address] [place] [address] 09/29/2023 2:45 PM With: Address: When: [address] , [address] [address] Business (1) 09/06/2023 2:30 PM Type Location [facility] [place] 09/29/2023 2:45 PM 09/29/2023 3:00 PM Confirmed Patient Education Information: Cardiac Rehabilitation; Acute Coronary Syndrome Normal [facility] Inpatient Patient Summaryon 08-31-2023 Inpatient Patient Summary [address] [address] Patient Discharge Instructions PERSON INFORMATION Name: DENISE LANTIGUA Date of : 1980 Current Date: 08/31/2023 10:01:13 PHYSICIANS Admitting Physician: Durga Thompson DO Primary Care Physician: KATIE SALGUERO DO PCP Comment: Discharge Diagnosis: 1:STEMI (ST elevation myocardial infarction); 2:Tobacco abuse; 3:HTN (hypertension); 4:HLD (hyperlipidemia); 5:Chronic back pain; 6:Asthma; 7:Neuropathy; Other chronic pain Condition at Discharge: DENISE Mcclelland has been given the following list of [...] take medication as prescribed. 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 Please attempt to quit smoking. Primary Care Physician to provide the following pending test results: None Follow up: With: Address: When: Denise Welch MD [address] [place], [place] 09/29/2023 2:45 PM With: Address: When: [address] , [address] [address] [facility] (1) 09/06/2023 2:30 PM In the event that this physician does not participate in your insurance network, please consult with your insurance company to find a nearby participating provider. Type Location [facility] Inpatient Follow Up (FT) [facility] [place] 09/29/2023 2:45 PM 09/29/2023 3:00 PM Confirmed Comment: GRZEGORZ Angel RYAN, have received the attached patient education materials/instructions and have verbalized understanding: Patient Signature Date Clinican/Nurse Signature _ Date HERE ARE THE MEDICATION CHANGES THAT OCCURRED DURING YOUR HOSPITAL STAY New Medications [id number], [address] [place], [place] [id number], [phone] aspirin (aspirin 81 mg Oral EC Tab) [...] excuse) 0. 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 Refills: 0. Last [...] 0. atorvastatin (at (more content not included)... [facility] Insurance Correspondence Off iceon 08-31-2023 Insurance Correspondence Office [id number]#[id number] TIFF [facility] Interdisciplinary Note - Sunil e Manageron 08-31-2023 Interdisciplinary Note - Biology Specimen Technician Pt DC home prior to rounds with CRM [facility] Comment on above: Result Comment: Elec tronically Signed By: Caesar DELACRUZ, Luzma\.br\Date and Time Signed: 08/31/23 10:52 EST Interdisciplinary Note - Soc ial Workeron 08-31-2023 Interdisciplinary Note - Lettuce Trimmer Brgerardota cost verified through patient's pharmacy; his cost is $25 after insurance. [facility] did not have the medication in stock and if they ordered it, it would not be available until after 6pm on 09/02/23 due to the holiday tomorrow. The pharmacist explained that she could transfer the prescription to [facility] as they did have it in stock; SW requested this be done. SW called patient's room and spoke to his fianceSinai, and let her know the cost and the need to pick it up at [facility], but that they would need to go to the [facility] for the rest of his mediations. She voiced understanding. SW will remain available. [facility] Monitor Recordon 08-31-2023 Monitor Record [id number] TIFF [facility] Prescriptions/Work Noteson 1 10-31-2022 Prescriptions/Work Notes [id number]#1.00 TIFF [facility] Progress Note-Physicianon Progress Note-Physician Subjective Patient doing [...] Calcium Lvl: 9.9 mg/dL (08/30/23 07:59:00) Troponin: >84970.00 Critical (08/30/23 07:59:00) Diagnostic Results (08/30/2023 10:50 [...] 2 tab (more content not included)... [facility] Comment on above: Result Comment: Elec tronically Signed By: ZACH RODNEY, Frank Westbrook\.br\Date and Time Signed: 08/31/23 07:11 EST eGFRon 08-31-2023 GFR/1.73 sq M.predicted among non-blacks MDRD (S/P/Bld) [Vol rate/Area] 69 mL/min/1.73 m2 Normal >=59 [facility] Comment on above: Order Comment: Order added by Discern Expert. Result Comment: Tube Buffer yury kidney disease could be indicated at eGFR's of less than 60 mL/min/1.73m2. Kidney failure is indicated at less than 15 mL/min/1.73m2. Performed By: #### 1 [id number], 2053419, 5661007, 6111951 #### [facility] [address] [place] [address] BMPon 08-30-2023 Creatinine [Mass/Vol] 1.0 mg/dL Normal 0.5-1.3 [facility] Comment on above: Performed By: #### 2 182167, 4208126, 33303595 ####[facility] [address] [place] [address] Urea nitrogen [Mass/Vol] 8 mg/dL Normal 5-21 [facility] Comment on above: Performed By: #### 2 663781, 2967445, 41314954 ####[facility] [address] [place] [address] Urea nitrogen/Creatinine [Mass ratio] 8 No Units Low 10-20 [facility] Comment on above: Performed By: #### 2 838290, 2831993, 99152522 ####[facility] [address] [place] [address] Anion gap [Moles/Vol] 17 mmol/L High 6-16 [facility] Comment on above: Performed By: #### 2 744793, 8700441, 00454861 ####[facility] [address] [place] [address] Calcium [Mass/Vol] 9.9 mg/dL Normal 8.9-11.1 [facility] Comment on above: Performed By: #### 2 433054, 6492101, 76189718 ####[facility] [address] [place] [address] Chloride [Moles/Vol] 102 mmol/L Normal 101-111 [facility] Comment on above: Performed By: #### 2 958810, 0369799, 88653210 ####[facility] [address] [place] [address] CO2 [Moles/Vol] 22 mmol/L Normal 21-31 [facility] Comment on above: Performed By: #### 2 105551, 4499172, 86312170 ####[facility] [address] [place] [address] Glucose [Mass/Vol] 153 mg/dL Normal 55-199 [facility] Comment on above: Result Comment: If t his glucose result represents a fasting glucose, interpretation should refer to the following reference range: 55-99 mg/dL Performed By: #### 2 347855, 9379627, [id number] ####[facility] [address] [facility] [place] [address] Potassium [Moles/Vol] 4.0 mmol/L Normal 3.5-5.3 [facility] Comment on above: Performed By: #### 2 470790, 3046995, [id number] ####[facility] [address] [place] [address] Sodium [Moles/Vol] 137 mmol/L Normal 135-145 [facility] Comment on above: Performed By: #### 2 840003, 6989763, 59508464 ####[facility] [address] [place] [address] Anion gap [Moles/Vol] QNS Invalid Interpretation Code 6-16 [facility] Comment on above: Result Comment: The specimen for this test has been found unacceptable due to quantity insufficient as determined by SW. Sissy was contacted and the following determination was made to redraw the patient. Performed By: #### 1 9696954, 9973917, 0966337, 7033089 #### [facility] [address] [place] [address] Calcium [Mass/Vol] QNS Invalid Interpretation Code 8.9-11.1 [facility] Comment on above: Result Comment: The specimen for this test has been found unacceptable due to quantity insufficient as determined by SW. Sissy was contacted and the following determination was made to redraw the patient. Performed By: #### 1 5203552, 4929476, 0624685, 6389525 #### [facility] [address] [place] [address] Chloride [Moles/Vol] QNS Invalid Interpretation Code 101-111 [facility] Comment on above: Result Comment: The specimen for this test has been found unacceptable due to quantity insufficient as determined by SW. Muldrow was contacted and the following determination was made to redraw the patient. Performed By: #### 1 3412615, 6836051, 7869032, 2165063 #### [facility] [address] [place] [address] CO2 [Moles/Vol] QNS Invalid Interpretation Code 21-31 [facility] Comment on above: Result Comment: The specimen for this test has been found unacceptable due to quantity insufficient as determined by SW. Sissy was contacted and the following determination was made to redraw the patient. Performed By: #### 1 2780593, 8468310, 9998406, 3066042 #### [facility] [address] [place] [address] Creatinine [Mass/Vol] QNS Invalid Interpretation Code 0.5-1.3 [facility] Comment on above: Result Comment: The specimen for this test has been found unacceptable due to quantity insufficient as determined by SW. Sissy was contacted and the following determination was made to redraw the patient. Performed By: #### 1 0396525, 7960939, 2256128, 8191206 #### [facility] [address] [place] [address] Potassium [Moles/Vol] QNS Invalid Interpretation Code 3.5-5.3 [facility] Comment on above: Result Comment: The specimen for this test has been found unacceptable due to quantity insufficient as determined by SW. Sissy was contacted and the following determination was made to redraw the patient. Performed By: #### 1 8674934, 0399069, 6274260, 8270019 #### [facility] [address] [place] [address] Sodium [Moles/Vol] QNS Invalid Interpretation Code 135-145 [facility] Comment on above: Result Comment: The specimen for this test has been found unacceptable due to quantity insufficient as determined by SW. Sissy was contacted and the following determination was made to redraw the patient. Performed By: #### 1 3786444, 5913449, 9138139, 0872078 #### [facility] [address] [facility] [place] [address] Urea nitrogen [Mass/Vol] QNS Invalid Interpretation Code 5-21 [facility] Comment on above: Result Comment: The specimen for this test has been found unacceptable due to quantity insufficient as determined by SW. Sissy was contacted and the following determination was made to redraw the patient. Performed By: #### 1 9307491, 7818093, 1480539, 0374971 #### [facility] [address] [place] [address] Urea nitrogen/Creatinine [Mass ratio] QNS Invalid Interpretation Code 07-29 [facility] Comment on above: Result Comment: The specimen for this test has been found unacceptable due to quantity insufficient as determined by SW. Sissy was contacted and the following determination was made to redraw the patient. Performed By: #### 1 8537625, 3274129, 1257776, 2758429 #### [facility] [address] [place] [address] Glucose [Mass/Vol] 113 mg/dL Normal 55-199 [facility] Comment on above: Result Comment: If t his glucose result represents a fasting glucose, interpretation should refer to the following reference range: 55-99 mg/dL Performed By: #### 1 6455635, 8991082, 8338267, 5378247 #### [facility] [address] [place] [address] CBC w/Indiceson 08-30-2023 Erythrocyte distribution width (RBC) [Ratio] 14.5 % High 10.9-14.2 [facility] Comment on above: Performed By: #### 1 5767132, 7486217, 7004422, 2406994 #### [facility] [address] [place] [address] Hematocrit (Bld) [Volume fraction] 51.5 % High 37.7-49.0 [facility] Comment on above: Performed By: #### 1 7463494, 3111830, 8762150, 1425115 #### [facility] [address] [place] [address] Hemoglobin (Bld) [Mass/Vol] 17.5 g/dL Normal 13.5-17.5 [facility] Comment on above: Performed By: #### 1 4961769, 4555442, 9197714, 3793469 #### [facility] [address] [place] [address] MCH (RBC) [Entitic mass] 28.6 pg Normal 27.0-34.0 [facility] Comment on above: Performed By: #### 1 2468497, 2468853, 8805066, 0320609 #### [facility] [address] [place] [address] MCHC (RBC) [Mass/Vol] 34.0 g/dL Normal 31.4-36.0 [facility] Comment on above: Performed By: #### 1 7014032, 9169931, 9978540, 7890132 #### [facility] [address] [place] [address] MCV (RBC) [Entitic vol] 83.9 fL Normal 80.0-100.0 [facility] Comment on above: Performed By: #### 1 4355249, 5931683, 0012634, 4225573 #### [facility] [address] [place] [address] Platelet mean volume (Bld) [Entitic vol] 8.2 fL Normal 6.4-10.8 [facility] Comment on above: Performed By: #### 1 8354159, 0611080, 5142934, 7911114 #### [facility] [address] [place] [address] Platelets (Bld) [#/Vol] 310.0 E9/L Normal 150.0-500.0 [facility] Comment on above: Performed By: #### 1 8991504, 8350162, 6480852, 0236807 #### [facility] [address] [place] [address] RBC (Bld) [#/Vol] 6.1 E12/L High 4.3-5.9 [facility] Comment on above: Performed By: #### 1 9333428, 0262313, 3938302, 3681798 #### [facility] [address] [place] [address] WBC corrected for nucl RBC Auto (Bld) [#/Vol] 15.4 E9/L High 4.0-11.0 [facility] Comment on above: Performed By: #### 1 2958543, 7540949, 2570657, 6182683 #### [facility] [address] [place] [address] CHEMISTRYOrdered By: SYSTEM SYSTEM on 08-30-2023 Anion gap [Moles/Vol] 17 mmol/L High 6 - 16 mEq/L [facility] Calcium [Mass/Vol] 9.9 mg/dL Normal 8.9 - 11. 1 mg/dL [facility] Chloride [Moles/Vol] 102 mmol/L Normal 101 - 1 11 mmol/L [facility] CO2 [Moles/Vol] 22 mmol/L Normal 21 - 31 mmol/L [facility] Creatinine [Mass/Vol] 1.0 mg/dL Normal 0.5 - 1.3 mg/dL [facility] GFR/1.73 sq M.predicted among non-blacks MDRD (S/P/Bld) [Vol rate/Area] 95 mL/min/1.73 m2 Normal >=59mL/min/ 1.73 m2 [facility] Comment on above: Interpretive Data: [...] 4.0 mmol/L Normal 3.5 - 5.3 mmol/L [facility] Sodium [Moles/Vol] 137 mmol/L Normal 135 - 145 mmol/L [facility] Troponin I.cardiac [Mass/Vol] pg/mL Invalid Interpretation Code 15.90 - 38.40 pg/mL [facility] Comment on above: Result Comment: Resu lt verified by dilution\ Critical Result I_hsTnI:>[id number] Called to DAMON BRUSH at 3N by [...] Instructions For Use, Martina Nedra, May 2018) Urea nitrogen [Mass/Vol] 8 mg/dL Normal 5 - 21 mg/dL [facility] Remisol Urea nitrogen/Creatinine [Mass ratio] 8 mg/mg Low 10 - 20 [facility] Remisol Glucose [Mass/Vol] 113 mg/dL Normal 55 - 199 mg/dL [facility] Comment on above: Interpretive Data: I f this glucose result represents a fasting glucose, interpretation should refer to the following reference range: 55-99 mg/dL Magnesium [Mass/Vol] 2.0 mg/dL Normal 1.3 - 2 .4 mg/dL [facility] Remisol CHEMISTRYOrdered By: Tali sue on 08-30-2023 Anion gap [Moles/Vol] QNS Invalid Interpretation Code 6 - 16 [facility] Comment on above: Result Comment: The specimen for this test has been found unacceptable due to quantity insufficient as determined by SW. Sissy was contacted and the following determination was made to redraw the patient. Calcium [Mass/Vol] QNS Invalid Interpretation Code 8.9 - 11.1 [facility] S Comment on above: Result Comment: The specimen for this test has been found unacceptable due to quantity insufficient as determined by SW. Sissy was contacted and the following determination was made to redraw the patient. Chloride [Moles/Vol] QNS Invalid Interpretation Code 101 - 111 [facility] S Comment on above: Result Comment: The specimen for this test has been found unacceptable due to quantity insufficient as determined by SW. Sissy was contacted and the following determination was made to redraw the patient. CO2 [Moles/Vol] QNS Invalid Interpretation Code 21 - 31 [facility] Comment on above: Result Comment: The specimen for this test has been found unacceptable due to quantity insufficient as determined by SW. Sissy was contacted and the following determination was made to redraw the patient. Creatinine [Mass/Vol] QNS Invalid Interpretation Code 0.5 - 1.3 [facility] Comment on above: Result Comment: The specimen for this test has been found unacceptable due to quantity insufficient as determined by SW. Muldrow was contacted and the following determination was made to redraw the patient. GFR/1.73 sq M.predicted among non-blacks MDRD (S/P/Bld) [Vol rate/Area] QNS Invalid Interpretation Code >=59 [facility] Comment on above: Result Comment: The specimen for this test has been found unacceptable due to quantity insufficient as determined by SW. Muldrow was contacted and the following determination was made to redraw the patient. Interpretive Data: C hronic kidney disease could be indicated at eGFR's of less than 60 mL/min/1.73m2. Kidney failure is indicated at less than 15 mL/min/1.73m2. Potassium [Moles/Vol] QNS Invalid Interpretation Code 3.5 - 5.3 [facility] S Comment on above: Result Comment: The specimen for this test has been found unacceptable due to quantity insufficient as determined by SW. Sissy was contacted and the following determination was made to redraw the patient. Sodium [Moles/Vol] QNS Invalid Interpretation Code 135 - 145 [facility] Comment on above: Result Comment: The specimen for this test has been found unacceptable due to quantity insufficient as determined by SW. Sissy was contacted and the following determination was made to redraw the patient. Urea nitrogen [Mass/Vol] QNS Invalid Interpretation Code 5 - 21 [facility] S Comment on above: Result Comment: The specimen for this test has been found unacceptable due to quantity insufficient as determined by SW. Sissy was contacted and the following determination was made to redraw the patient. Urea nitrogen/Creatinine [Mass ratio] QNS Invalid Interpretation Code 10 - 20 [facility] S Comment on above: Result Comment: The specimen for this test has been found unacceptable due to quantity insufficient as determined by SW. Muldrow was contacted and the following determination was made to redraw the patient. Cardiovascular Reporton 08-11 Cardiovascular Report [id number]#1.00 TIFF Normal [facility] ED Note-Physicianon 08-30-20 23 ED Note-Physician Basic [...] here. He is taken directly to the Cloth Classer for emergent procedure. Critical Care Time: 10 [...] Diagnostic Results No qualifying data available. Normal [facility] Comment on above: Result Comment: Elec tronically Signed By: Kevin Peñaloza PA-C\.br\Date and Time Signed: 08/29/23 16:39 EST\.br\Electronically Co-Signed By: Dao Victor DO\.br\Date and Time Co-Signed: 08/30/23 07:29 EST HEMATOLOGYOrdered By: Vale vincent on 08-30-2023 Erythrocyte distribution width (RBC) [Ratio] 14.5 % High 10.9 - 14.2 % [facility] Hematocrit (Bld) [Volume fraction] 51.5 % [...] 11.0 E9/L [facility] Insurance Correspondence Off ice 08-30-2023 Insurance Correspondence Office [id number]#1.00 TIFF Normal [facility] Interdisciplinary Note - Sunil e Manageron 08-30-2023 Interdisciplinary Note - Biology Specimen Technician Pt is asleep in bed, no family present. previously rounded with Dr. Thompson and await cardiology to see. Possible DC home later today. Pt is currently on brilinta, coupon provided for $5 copay provided at bedside and nursing updated, no further concerns or DC needs identified. CRM following, Probable DC home later today [facility] Comment on above: Result Comment: Elec tronically Signed By: Caesar DELACRUZ, Luzma\.br\Date and Time Signed: 08/30/23 10:03 EST Magnesiumon 08-30-2023 Magnesium [Mass/Vol] 2.0 mg/dL Normal 1.3-2.4 [facility] Comment on above: Performed By: #### 1 [id number], 4089172, 3292198, 2183306 #### [facility] [address] [place] [address] Monitor Recordon 08-30-2023 Monitor Record [id number]#1.00 TIFF Normal [facility] Monitor Record [id number]#1.00 TIFF Normal [facility] Monitor Record [id number]#1.00 TIFF Normal [facility] Monitor Record [id number]#1.00 TIFF Normal [facility] Monitor Record [id number]#1.00 TIFF [facility] Progress Note-Nurseon 2022 Progress Note-Nurse 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 Safety maintained. Normal [facility] Progress Note-Nurse This nurse was tsai d [...] a 4/10. Will continue to monitor. Normal [facility] Progress Note-Physicianon Progress Note-Physician Assessment/Plan 1. STEMI [...] on telemetry for another 24 hours. Ordered: [facility] Hospital Care/Day High 50 Minutes [id number] 2. Tobacco abuse (Z72.0: Tobacco use) Educate [...] 16:21:00) Lymph Auto: 32.5 % (08/29/23 16:21:00) [place] Auto: 4.6 % (08/29/23 16:21:00) Eos Auto: 0.9 % (08/29/23 16:21:00) Basophil Auto: 0.9 % (08/29/23 16:21:00) Neutro Absolute: 7.6 E9/L High (08/29/23 16:21:00) Lymph Absolute: 4.1 E9/L High (08/29/23 16:21:00) [place] (more content not included)... Normal [facility] Comment on above: Result Comment: Elec tronically Signed By: Durga Thompson DO.anne\Date and Time Signed: 08/30/23 09:32 EST Progress [...] 16:21:00) Lymph Auto: 32.5 % (08/29/23 16:21:00) [place] Auto: 4.6 % (08/29/23 16:21:00) Eos Auto: 0.9 % (08/29/23 16:21:00) Basophil Auto: 0.9 % (08/29/23 16:21:00) Neutro Absolute: 7.6 E9/L High (08/29/23 16:21:00) Lymph Absolute: 4.1 E9/L High (08/29/23 16:21:00) [place] Absolute: 0.6 E9/L (08/29/23 16:21:00) Eos Absolute: [...] Oral, q (more content not included)... Normal [facility] Comment on above: Result Comment: Elec tronically Signed By: ZACH RODNEY, Frank Westbrook\.br\Date and Time Signed: 08/30/23 07:50 EST Troponinon 08-30-2023 Troponin I.cardiac [Mass/Vol] ng/mL Abnormal 15.90-38.40 [facility] Comment on above: Result Comment: Resu lt verified by dilution\ Critical Result I_hsTnI:>[id number] Called to DAMON BRUSH at 3N by TALI CALDERON and read back for confirmation at 08/30/2023 09:05:52 The 95% CI (Confidence Interval) PPV (Positive Predictive Value) for myocardial infarction in females is 38 pg/mL, in males 51 pg/mL. The results should be used in conjunction with clinical conditions of myocardial infarction. (Access High Sensitivity Troponin I Instructions For Use, Martina Nedra, May 2018) Performed By: #### 1 4086233, 9873643, 4493276, 1771508 #### [facility] [address] [place] [address] eGFRon 08-30-2023 GFR/1.73 sq M.predicted among non-blacks MDRD (S/P/Bld) [Vol rate/Area] 95 mL/min/1.73 m2 Normal >=59 [facility] Comment on above: Order Comment: Order added by Discern Expert. Result Comment: Tube Buffer yury kidney disease could be indicated at eGFR's of less than 60 mL/min/1.73m2. Kidney failure is indicated at less than 15 mL/min/1.73m2. Performed By: #### 2 087142, 2802613, 03554702 ####[facility] [address] [place] [address] GFR/1.73 sq M.predicted among non-blacks MDRD (S/P/Bld) [Vol rate/Area] QNS Invalid Interpretation Code >=59 [facility] Comment on above: Order Comment: Order added [...] than 15 mL/min/1.73m2. Performed By: #### 1 6547744, 1584994, 1952324, 4903907 #### [facility] [address] [place] [address] Auto Diffon 08-29-2023 Basophils/100 WBC (Bld) 0.9 % Normal 0.0-2.0 [facility] Comment on above: Order Comment: Order Added by Discern Expert. Performed By: #### 2 615473, 09546341, 27459243, 21308915, 3110539, 3847119 #### [facility] [address] [place] [address] Basophils/Leukocytes Auto (Bld) [Pure # fraction] 0.1 E9/L Normal 0.0-0.2 [facility] Comment on above: Order Comment: Order Added by Discern Expert. Performed By: #### 2 700233, 64777811, 86239943, 57015123, 3773970, 8462705 #### [facility] [address] [place] [address] Eosinophils/100 WBC (Bld) 0.9 % Normal 0.0-8.0 [facility] Comment on above: Order Comment: Order Added by Discern Expert. Performed By: #### 2 187098, 70577855, 13928200, 03620370, 2291896, 6447335 #### [facility] [address] [place] [address] Eosinophils/Leukocyte s Auto (Bld) [Pure # fraction] 0.1 E9/L Normal 0.0-0.5 [facility] Comment on above: Order Comment: Order Added by Discern Expert. Performed By: #### 2 229909, 79908745, 98076642, 79129314, 1794115, 5685507 #### [facility] [address] [place] [address] Lymphocytes/100 WBC (Bld) 32.5 % Normal 14.0-50.0 [facility] Comment on above: Order Comment: Order Added by Discern Expert. Performed By: #### 2 089288, 65852344, 43878929, 96580239, 5308553, 0611035 #### [facility] [address] [place] [address] Lymphocytes/Leukocyte s Auto (Bld) [Pure # fraction] 4.1 E9/L High 1.0-4.0 [facility] Comment on above: Order Comment: Order Added by Discern Expert. Performed By: #### 2 167208, 87321395, 48256068, 99206621, 2630237, 7012582 #### [facility] [address] [place] [address] Monocytes/100 WBC (Bld) 4.6 % Normal 4.0-14.0 [facility] Comment on above: Order Comment: Order Added by Discern Expert. Performed By: #### 2 514928, 94105277, 56927731, 48533185, 6045187, 8775504 #### [facility] [address] [place] [address] Monocytes/Leukocytes Auto (Bld) [Pure # fraction] 0.6 E9/L Normal 0.2-1.0 [facility] Comment on above: Order Comment: Order Added by Discern Expert. Performed By: #### 2 778895, 82691862, 46155282, 07083821, 9015445, 8622636 #### [facility] [address] [place] [address] Neutrophils/100 WBC (Bld) 61.1 % Normal 36.0-75.0 [facility] Comment on above: Order Comment: Order Added by Discern Expert. Performed By: #### 2 028509, 56477220, 36021239, 74823096, 6258948, 3851517 #### [facility] [address] [place] [address] Neutrophils/Leukocyte s Auto (Bld) [Pure # fraction] 7.6 E9/L High 2.0-7.5 [facility] Comment on above: Order Comment: Order Added by Discern Expert. Performed By: #### 2 150836, 21457982, 90981809, 58947403, 7092888, 2616543 #### [facility] [address] [place] [address] BMPon 08-29-2023 Creatinine [Mass/Vol] 1.1 mg/dL Normal 0.5-1.3 [facility] Comment on above: Performed By: #### 2 214248, 19022253, 05329236, 96932012, 6640154, 9307060 ####[facility] [address] [place] [address] Urea nitrogen [Mass/Vol] 7 mg/dL Normal 5-21 [facility] Comment on above: Performed By: #### 2 767060, 33423820, 85460441, 33521226, 7036342, 7841475 ####[facility] [address] [place] [address] Urea nitrogen/Creatinine [Mass ratio] 6 No Units Low 10-20 [facility] Comment on above: Performed By: #### 2 019064, 92391502, 19164874, 68088087, 1929137, 4850325 ####[facility] [address] [place] [address] Anion gap [Moles/Vol] 17 mmol/L High 6-16 [facility] Comment on above: Performed By: #### 2 812803, 78900587, 36247845, 63930613, 1769294, 1079620 ####[facility] [address] [place] [address] Calcium [Mass/Vol] 9.8 mg/dL Normal 8.9-11.1 [facility] Comment on above: Performed By: #### 2 022139, 91900180, 16329875, 08595470, 7971588, 3579591 ####[facility] [address] [place] [address] Chloride [Moles/Vol] 101 mmol/L Normal 101-111 [facility] Comment on above: Performed By: #### 2 782033, 60976186, 56769429, 12230254, 4260234, 6138394 ####[facility] [address] [place] [address] CO2 [Moles/Vol] 23 mmol/L Normal 21-31 [facility] Comment on above: Performed By: #### 2 721160, 57920943, 49630567, 25537104, 0204731, 0304989 ####[facility] [address] [place] [address] Glucose [Mass/Vol] 145 mg/dL Normal 55-199 [facility] Comment on above: Result Comment: If t his glucose result represents a fasting glucose, interpretation should refer to the following reference range: 55-99 mg/dL Performed By: #### 2 215332, 46716987, 98790352, 90159827, 2262873, 0773443 ####[facility] [address] [place] [address] Potassium [Moles/Vol] 3.5 mmol/L Normal 3.5-5.3 [facility] Comment on above: Performed By: #### 2 558923, 54352826, 91196417, 49633673, 9470283, 5820186 ####[facility] [address] [place] [address] Sodium [Moles/Vol] 137 mmol/L Normal 135-145 [facility] Comment on above: Performed By: #### 2 796413, 22925549, 63101905, 24497472, 6939672, 6011991 ####[facility] [address] [place] [address] CBC w/ Auto Diffon Erythrocyte distribution width (RBC) [Ratio] 14.7 % High 10.9-14.2 [facility] Comment on above: Performed By: #### 2 509597, 42654775, 72403651, 23327202, 3929581, 3670277 #### [facility] [address] [place] [address] Hematocrit (Bld) [Volume fraction] 44.9 % Normal 37.7-49.0 [facility] Comment on above: Performed By: #### 2 173876, 94954416, 59442324, 05362022, 8777830, 2786958 #### [facility] [address] [place] [address] Hemoglobin (Bld) [Mass/Vol] 15.1 g/dL Normal 13.5-17.5 [facility] Comment on above: Performed By: #### 2 965068, 88354305, 96903125, 82656893, 5052129, 5253925 #### [facility] [address] [place] [address] MCH (RBC) [Entitic mass] 28.0 pg Normal 27.0-34.0 [facility] Comment on above: Performed By: #### 2 308271, 68313788, 57516177, 38802463, 8244767, 1507503 #### [facility] [address] [place] [address] MCHC (RBC) [Mass/Vol] 33.7 g/dL Normal 31.4-36.0 [facility] Comment on above: Performed By: #### 2 366021, 72340606, 65524687, 62874920, 2424302, 2080924 #### [facility] [address] [place] [address] MCV (RBC) [Entitic vol] 83.2 fL Normal 80.0-100.0 [facility] Comment on above: Performed By: #### 2 419750, 84888652, 79020142, 66820988, 5161312, 8620389 #### [facility] [address] [place] [address] Platelet mean volume (Bld) [Entitic vol] 8.1 fL Normal 6.4-10.8 [facility] Comment on above: Performed By: #### 2 778395, 95534008, 34904922, 51726227, 5094914, 2010050 #### [facility] [address] [place] [address] Platelets (Bld) [#/Vol] 346.0 E9/L Normal 150.0-500.0 [facility] Comment on above: Performed By: #### 2 175365, 93072439, 06764173, 83195622, 3223561, 2767938 #### [facility] [address] [place] [address] RBC (Bld) [#/Vol] 5.4 E12/L Normal 4.3-5.9 [facility] Comment on above: Performed By: #### 2 798134, 87864896, 22851221, 18497427, 3231765, 8501898 #### [facility] [address] [place] [address] WBC corrected for nucl RBC Auto (Bld) [#/Vol] 12.5 E9/L High 4.0-11.0 [facility] Comment on above: Performed By: #### 2 814552, 97328110, 03290298, 26156041, 0637171, 9758789 #### [facility] [address] [place] [address] CHEMISTRYOrdered By: SYSTEM SYSTEM on 08-29-2023 Troponin I.cardiac [Mass/Vol] 132.40 pg/mL Invalid Interpretation Code 15.90 - 38.40 pg/mL [facility] Remisol Comment on above: Result Comment: Javit ical Result I_hsTnI:132.4 Called to PK PUGH [...] Sensitivity Troponin I Instructions For Use, Martina Amadix, May 2018) COAGULATIONOrdered By: Samantha Edwards on 08-29-2023 aPTT Coag (PPP) [Time] 31.6 s Normal 25.1 - 36.5 second(s) [facility] Auto Coag Comment on above: Interpretive Data: P cristel 15 days - 4 weeks 1 - [...] the same coagulation reagent and instrumentation as [facility]. Currently there are no coagulation studies available worldwide for children to 14 days, and no normal ranges. Heparin therapeutic range (represented by Anti-Factor Xa activity of 0.2 - 0.4 U/mL) corresponds to PTT of 56.6 - 109.0 sec. INR Coag (PPP) [Relative time] 1.0 {INR} Invalid Interpretation Code [facility] Auto Coag Comment on above: Interpretive Data: I NR results are specifically intended to assess patients stabilized on long-term Anticoagulation therapy suggested INR s Less Intensive Anticoagulation 2.0 3.0 Conventional Range 3.0 4.5 PT Coag (PPP) [Time] 11.5 s Normal 9.4 - 1 2.5 second(s) [facility] Auto Coag Comment on above: Interpretive Data: [...] the same coagulation reagent and instrumentation as [facility]. Currently there are no coagulation studies available worldwide for children to 14 days, and no normal ranges. Cardiovascular Reporton 08-11 Cardiovascular Report [id number]#[id number] TIFF Normal [facility] Consent for Treatmenton 08-11 Consent for Treatment [id number] IFF Normal [facility] HEMATOLOGYOrdered By: SYSTEM SYSTEM on 08-29-2023 Basophils/100 [...] 7.6 E9/L High 2.0 - 7.5 E9/L FT HemeAutoSS HEMATOLOGYOrdered By: Coty Romano on 08-29-2023 Erythrocyte distribution width (RBC) [Ratio] 14.7 % High 10.9 - 14.2 % FT [facility] Hematocrit (Bld) [Volume fraction] 44.9 % Normal 37.7 - 49.0 % FT [facility] Hemoglobin (Bld) [Mass/Vol] 15.1 g/dL Normal 13.5 - 17.5 gm/dL FT [facility] MCH (RBC) [Entitic mass] 28.0 pg [...] 5.4 E12/L Normal 4.3 - 5.9 E12/L FT HemeAutoSS WBC corrected for nucl RBC Auto (Bld) [#/Vol] 12.5 E9/L High 4.0 - 11.0 E9/L [facility] HemeAutoSS Operative Reporton Operative Report Indication for Surge ry Anterolateral [...] STEMI due to plaque rupture and acute ID of the mid LAD, status post primary [...] patient will additionally be counseled by the Cloth Classer team and in follow-up. Complications Sustained ventricular tachycardia after reperfusion, spontaneously converted Technique Following full and informed consent the patient was brought to the Cloth Classer where sterile prep and drape were administered in usual fashion. Anesthesia was obtained in the right wrist with lidocaine after administration of conscious sedation. A 5/6 slender Terumo sheath was placed in the right radial artery without complication. Nitroglycerin and nicardipine were given via the sheath and heparin was given intravenously. A 6 Estonian XB3.5 catheter was advanced and selectively engaged [...] end of the procedure without complication. Normal [facility] Comment on above: Result Comment: Elec tronically Signed By: Rebekah RODNEY, Denise Valdez\.br\Date and Time Signed: 08/29/23 20:59 EST PT & PTTon 08-29-2023 aPTT Coag (PPP) [Time] 31.6 second(s) Normal 25.1-36.5 [facility] Comment on above: Result Comment: Para meter [...] the same coagulation reagent and instrumentation as [facility]. Currently there are no coagulation studies available worldwide for children to 14 days, and no normal ranges. Heparin therapeutic range (represented by Anti-Factor Xa activity of 0.2 - 0.4 U/mL) corresponds to PTT of 56.6 - 109.0 sec. Performed By: #### 2 428555, 70897433, 11389877, 74156792, 5426338, 2649547 #### [facility] [address] [place] [address] INR Coag (PPP) [Relative time] 1.0 {INR} Invalid Interpretation Code [facility] Comment on above: Result Comment: INR results are specifically intended to assess patients stabilized on long-term Anticoagulation therapy suggested INR?s ?Less Intensive Anticoagulation? 2.0 ? 3.0 Conventional Range 3.0 ? 4.5 Performed By: #### 2 701242, 11465711, 23164478, 03881702, 3195895, 2755601 #### [facility] [address] [place] [address] PT Coag (PPP) [Time] 11.5 second(s) Normal 9.4-12.5 [facility] Comment on above: Result Comment: 15 d [...] the same coagulation reagent and instrumentation as [facility]. Currently there are no coagulation studies available worldwide for children to 14 days, and no normal ranges. Performed By: #### 2 661426, 96435183, 23274663, 37726649, 9851070, 7598579 #### [facility] [address] [place] [address] Pre-Arrival Noteon 3 Pre-Arrival Note Pre-Arrival Summary Name: , [facility] Current Date: 08/29/2023 16:25:38 EST Gender: Date of : Age: 43 Pre-Arrival Type: EMS ETA: 08/29/2023 16:48:00 EST Primary Care Physician: Presenting Problem: STEMI Pre-Arrival User: Olive Mcdonald RN Referring Source: Location: Completion Date/Time: 08/29/2023 16:19:00 [facility] Emergency Department Pre-Hospital Report Form Vital Signs: Pre-Hospital Report: Treatment in Route: Response to Treatment: Misc. Issues: Normal [facility] Progress Note-Nurseon 2022 Progress Note-Nurse Report complete [...] locked and low, and safety maintained. Normal [facility] Troponin 0 Hr.on 08-29-2023 Troponin I.cardiac [Mass/Vol] 132.40 pg/mL Abnormal 15.90-38.40 [facility] Comment on above: Result Comment: Crit ical [...] Sensitivity Troponin I Instructions For Use, Martina [place], May 2018) Performed By: #### 2 876669, 97944702, 60926888, 46552021, 1854715, 0574522 ####[facility] [address] [place] [address] XR Chest Single Viewon 08-29 XR Chest [...] mGy = na DAP = na Normal [facility] eGFRon 08-29-2023 GFR/1.73 sq M.predicted among non-blacks MDRD (S/P/Bld) [Vol rate/Area] 84 mL/min/1.73 m2 Normal >=59 [facility] Comment on above: Order Comment: Order added by Discern Expert. Result Comment: Tube Buffer yury kidney disease could be indicated at eGFR's of less than 60 mL/min/1.73m2. Kidney failure is indicated at less than 15 mL/min/1.73m2. Performed By: #### 2 547340, 05250684, 29372845, 31092382, 0911921, 0510657 ####[place] [address] [place] [address] XR thoracic spine 2Von 05-31 XR thoracic spine 2V [facility] Main [place] [address] [place] [address] XRay Report Signed Patient: Denise Lantigua MR#: [id number] : 1980 Acct:[id number] Age/Sex: 43 / M ADM Date: 05/31/23 Loc: [facility] Room: Type: [facility] Attending Dr: Shaquille Remy MD Copies to: [...] Emil Jain M.D.05/31/2023 4:33 PM Dictation Location: [place] [address] Transcribed By: [facility] 05/31/23 1633 Dictated By: Emil Jain II, MD 05/31/23 1629 Signed By: 05/31/23 1633 [facility] XR thoracic spine 2V [facility] [employer] XM Other XR thoracic spine 2V [facility] [employer] Other XR thoracic spine 2V [address] [place] [address] [employer] Other XR thoracic [place] 2[place] [address] [employer] Other XR thoracic spine 2V XRay Report [facility] [employer] Other XR thoracic spine 2V Signed [facility] i[employer]we Other XR thoracic spine 2V Patient: [place] Lantigua MR#: [id number] [employer] Other XR thoracic spine 2V 8 [facility] [employer] Other XR thoracic spine 2V : 1980 Acct:[id number] [employer] Other XR thoracic spine 2V Age/Sex: 43 / M ADM Date: 05/31/23 [employer] Other XR thoracic spine 2V Loc: [facility] Room: Typ e: [facility] [employer] Other XR thoracic spine 2V Attending Dr: Huong Remy MD [employer] Other XR thoracic spine 2V Copies to: Shaquille Remy MD [employer] Other XR thoracic spine 2V Ordering Provider: Shaquille Remy MD [employer] Other XR thoracic spine 2V Date of Service: 05/31/23 [employer] Other XR thoracic spine 2V XR/XR thoracic spine 2V: Thoracic back pain [employer] Other XR thoracic spine 2V XR thoracic spine 2 V 05/31/2023 4:17 PM [employer] Other XR thoracic spine 2V SIGNS AND SYMPTOMS: [employer] Other XR thoracic spine 2V Thoracic back pain [employer] Other XR thoracic spine 2V PROTOCOLS: Frontal and lateral radiograph thoracic spine. [employer] Other XR thoracic spine 2V COMPARISON: None [employer] Other XR thoracic spine 2V FINDINGS: Nort [employer] Other XR thoracic spine 2V The bones are in anatomic alignment with preservation of vertebral body heights. There is a spinal [employer] Other XR thoracic spine 2V cord stimulator wit h the leads extending to the mid T6 vertebral body level. No evidence of fracture [employer] Other XR thoracic spine 2V or bony destructive lesion. [employer] Other XR thoracic spine 2V XR/XR thoracic spine 2V [employer] Other XR thoracic spine 2V IMPRESSION: Nor [employer] Other XR thoracic spine 2V There is a spinal c ord stimulator with the leads extending to the mid T6 vertebral body level. [employer] Other XR thoracic spine 2V No acute bony injury. [employer] Other XR thoracic spine 2V Impression dictated by: Emil Jain M.D.05/31/2023 4:33 PM [employer] Other XR thoracic spine 2V Dictation Location: RADIO[employer]- [employer] Other XR thoracic spine 2V Transcribed By: PWS 05/31/23 1633 [employer] Other XR thoracic spine 2V Dictated By: Emil Jain II, MD 05/31/23 1629 [employer] Other XR thoracic spine 2V Signed By: Rocio [employer] Other XR thoracic spine 2V 05/31/23 1633 N [employer] Other MISCELLANEOUS CULT./SM.BACT. on 01-25-2023 MISCELLANEOUS CULT./SM.BACT. PATIENT: DENISE LANTIGUA LOCATION: [facility][1]#: [id number] : [birth year] AGE: SEX: M ORDERED BY: TOMASZ POWER SOURCE: WOUND/ABSCESS COLLECTED: 01/25/23 14:27 ANTIBIOTICS AT BAILEE.: RECEIVED : 01/25/23 22:07 SITE: THORACIC WOUND R E S U L T S GRAM STAIN FINAL 01/26/23 00:02 NO GRANULOCYTES OR ORGANISMS SEEN. MISCELLANEOUS CULT./SM.BACT. FINAL 01/27/23 11:44 NO GROWTH AEROBICALLY OR ANAEROBICALLY. Normal [facility] Comment on above: Performed By: #### M [facility] #### [facility] [address] 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 [phone] Limitations on Visitors/Phone Callsnone Medications Brought to Hospitalno General Health: Weight in kg76.3 kilogram(s) Weight in juo765.2 pound(s) Weight Methodactual (measured) Scale Typechair Height in feet5 feet Height in inches8.98 inch(es) Height in cm175.2 centimeter(s) Height Methodstated BMI (kg/m2)24.857 square meter Patient or Family Member Reaction to Anesthesiano previous reaction; no previous family member reaction Blood Avoidance/Restrictionsn one Previous Transfusion Reactionno Health Mgmt: Symptoms/Conditions Managed at HomeSee H&P Barriers to Managing Healthnone Relationship/Environ: Lives Withsignificant other Living Arrangementshouse Resource/Environmental Concernsnone Anticipated Transition [employer] Services Anticipated at Transitionnone Tobacco Use: Tobacco Useyes Last Tobacco [id number] Number of Packs per Day0.5 Pre-op Checklist: Arrival [id number] Arrival Time12:33 Procedure TypeSpinal Cord Stimulator Revision NPOyes Last Food Ruzaie20-Dti-9749 21:00 Last Clear Fluid Lixefm06-Xzo-2879 05:30 NPO CommentSips with Meds ID Band On Patientpatient ID (name) Consent Signedyes H&P Completeyes Anesthesia Assessment Completedyes EKG Performednot ordered Chest X-Ray Performednot ordered Preop Antibioticssent to OR Beta-alfonzo Last Dose Date/Beyz00-Mox-3384 05:30 COVID 19 Results in Last 7 [...] 13:45 by Mora Sadler (NUBIA GRANADO) Normal [facility] CBCon 01-19-2023 Erythrocyte distribution width (RBC) [Ratio] 14.8 % High 11.5 - 14.5 [facility] Comment on above: Performed By: #### C BC #### [facility] [address] [place] [address] Hematocrit (Bld) [Volume fraction] 45.6 % Normal 41.0 - 52.0 [facility] Comment on above: Performed By: #### C BC #### [address] [place] [address] Hemoglobin (Bld) [Mass/Vol] 14.7 g/dL Normal 13.5 - 17.5 [facility] Comment on above: Performed By: #### C BC #### [address] [place] [address] MCHC (RBC) [Mass/Vol] 32.2 g/dL Normal 32.0 - 36.0 [facility] Comment on above: Performed By: #### C BC #### [address] [place] [address] MCV (RBC) [Entitic vol] 87 fL Normal 80 - 100 [facility] Comment on above: Performed By: #### C BC #### [address] [place] [address] NUCLEATED RBC 0.0 /100 WBC Normal 0.0 - 0.0 [facility] Comment on above: Performed By: #### C BC #### [address] [place] [address] Platelets (Bld) [#/Vol] 332 10*3/uL Normal 150 - 450 [facility] Comment on above: Performed By: #### C BC #### [address] [place] [address] RBC 5.23 x10E12/L Normal 4.50 - 5.90 [facility] Comment on above: Performed By: #### C BC #### [address] [place] [address] WBC (Bld) [#/Vol] 11.8 10*3/uL High 4.4 - 11.3 [facility] Comment on above: Performed By: #### C BC #### [address] [place] [address] COMPREHENSIVE PANELon 2022 Albumin [Mass/Vol] 4.5 g/dL Normal 3.4 - 5.0 [facility] Comment on above: Performed By: #### C MP #### [address] [place] [address] ALP [Catalytic activity/Vol] 84 U/L Normal 33 - 120 [facility] Comment on above: Performed By: #### C MP #### [address] [place] [address] ALT [Catalytic activity/Vol] 32 U/L Normal 10 - 52 [facility] Comment on above: Result Comment: Janet ents treated with Sulfasalazine may generate falsely decreased results for ALT. Performed By: #### C MP #### [address] [place] [address] Anion gap [Moles/Vol] 9 mmol/L Low 10 - 20 [facility] Comment on above: Performed By: #### C MP #### [address] [place] [address] AST [Catalytic activity/Vol] 19 U/L Normal 9 - 39 [facility] Comment on above: Performed By: #### C MP #### [address] [place] [address] Bilirubin [Mass/Vol] 0.4 mg/dL Normal 0.0 - 1.2 [facility] Comment on above: Performed By: #### C MP #### [address] [place] [address] Calcium [Mass/Vol] 9.9 mg/dL Normal 8.6 - 10.3 [facility] Comment on above: Performed By: #### C MP #### [address] [place] [address] Chloride [Moles/Vol] 101 mmol/L Normal 98 - 107 [facility] Comment on above: Performed By: #### C MP #### [address] [place] [address] Creatinine [Mass/Vol] 1.06 mg/dL Normal 0.50 - 1.30 [facility] Comment on above: Performed By: #### C MP #### [address] [place] [address] GFR/1.73 sq M.predicted among non-blacks MDRD (S/P/Bld) [Vol rate/Area] 88 mL/min/{1.73_m2} Normal >90 [facility] Comment on above: Result Comment: CALC ULATIONS OF ESTIMATED GFR ARE PERFORMED USING THE 2020 CKD-EPI STUDY REFIT EQUATION WITHOUT THE RACE VARIABLE FOR THE IDMS-TRACEABLE CREATININE METHODS. https://jasn.asnjournals.org/content//ASN.413751 7564 Performed By: #### C MP #### [address] [place] [address] Glucose [Mass/Vol] 86 mg/dL Normal 74 - 99 [facility] Comment on above: Performed By: #### C MP #### [address] [place] [address] HCO3 (Bld) [Moles/Vol] 31 mmol/L Normal 21 - 32 [facility] Comment on above: Performed By: #### C MP #### [address] [place] [address] Potassium [Moles/Vol] 3.8 mmol/L Normal 3.5 - 5.3 [facility] Comment on above: Performed By: #### C MP #### [address] [place] [address] Protein [Mass/Vol] 7.2 g/dL Normal 6.4 - 8.2 [facility] Comment on above: Performed By: #### C MP #### [address] [place] [address] Sodium [Moles/Vol] 137 mmol/L Normal 136 - 145 [facility] Comment on above: Performed By: #### C MP #### [address] [place] [address] Urea nitrogen [Mass/Vol] 10 mg/dL Normal 6 - 23 [facility] Comment on above: Performed By: #### C MP #### [address] [place] [address] STAPH/MRSA SCREENon 01-20-20 STAPH/MRSA SCREEN PATIENT: AFRICA LANTIGUA LOCATION: [facility]#: [id number] : [birth year] AGE: SEX: M ORDERED BY: TOMASZ [facility]: 01/19/23 09:27 ANTIBIOTICS AT BAILEE.: RECEIVED : 01/19/23 23:36 SITE: NARES, NARES, AXILLA, GROIN R E S U L T S STAPH/MRSA SCREEN FINAL 01/21/23 13:05 ISOLATE1 : Staphylococcus aureus METHICILLIN SENSITIVE STAPHYLOCOCCUS AUREUS (MSSA) Normal [facility] Comment on above: Performed By: #### S TAPH #### [facility] [address] [place] [address] CULTURE WOUNDon 12-28-2022 CULTURE WOUND Culture Observations : NO GROWTH OF AEROBES AT 48 HRS. Culture Observations: NO GROWTH OF ANAEROBES AT 72 HOURS. Normal [facility] Comment on above: Performed By: #### W OUNDCX #### [facility] [address] [place] [address] Dr. Anaya Gerard Order Reconciliationon 12-14 Order [...] total o (more content not included)... Normal [facility] Patient Profile - Preop v3on 12-14-2022 Patient Profile - Preop v3 Patient Profile - Preop: Initial Info: Patient DemographicsName: DENISE LANTIGUA Date: 1980 [address]: [address] [place], [place] [id number] Primary Phone [phone] How to be AddressedRyan Spoken Language PreferredEnglish Source of Informationpatient Stated Reason for Admissionback surgery Primary Contact Name and NumberConnie [phone] Limitations on Visitors/Phone Callsnone Medications Brought to Hospitalno General Health: Weight in kg75.8 kilogram(s) Weight in btr330.1 pound(s) Weight Methodactual (measured) Scale Typechair Height [...] other Living Arrangementshouse Resource/Environmental Concernsnone Anticipated Transition [employer] Services Anticipated at Transitionnone Tobacco Use: Tobacco Useyes Tobacco Typecigarettes Last Tobacco Iou12-Zbu-0390 Number of Packs per Day0.5 Number of yrs30 Pack yrs15 Pre-op Checklist: Arrival Kpwn59-Kko-8734 Arrival Time06:15 Procedure TypeLaminectomy for insertion of spinal cord stimulator NPOyes Last Food Ibdrhg77-Ngu-3828 19:00 Last Clear Fluid Ztkhlh55-Jgw-5480 03:00 ID Band On Patientpatient ID (name) H&P Completeyes EKG Performednot ordered Preop Antibioticssent to OR Beta-alfonzo Last Dose Date/Ounu44-Gja-2370 03:00 Type and Screen Resultedn/a Chlorhexadine Bath [...] 14-Dec-2022 06:58 by Isabel Contreras (STAFF N) [facility] STAPH/MRSA SCREENon 12-03-19 23 STAPH/MRSA SCREEN PATIENT: AFRICA LANTIGUA LOCATION: [facility] BILL#: [id number] : [birth year] AGE: SEX: M ORDERED BY: TOMASZ POWER SOURCE: ANTERIOR NARES COLLECTED: 12/03/22 13:42 ANTIBIOTICS AT BAILEE.: RECEIVED : 12/03/22 22:15 SITE: bilateral R E S U L T S STAPH/MRSA SCREEN FINAL 12/05/22 11:18 NO Staphylococcus aureus ISOLATED. Normal [facility] Comment on above: Performed By: #### S [facility] #### [facility] [address] [place] [address] XR Chest 2 Views*on 02-26-20 XR Chest 2 Views* CLINICAL HISTORY: Cough, congestion COMPARISON: date TECHNIQUE: Upright PA and lateral views of the chest were obtained. FINDINGS: Heart is normal in size. Lungs are clear and well expanded. No pleural effusion or pneumothorax. The bony thorax is unremarkable. IMPRESSION: NO ACUTE CARDIOPULMONARY ABNORMALITY. Report reported and signed by Keven Puri on 02/25/2022 0902 Normal [facility] [place] ANGIO CORONARY ARTERIES W C EVAL [...] Coronary artery aneurysm. COMPARISON: None. ACCESSION NUMBER(S): [id number] ORDERING CLINICIAN: KATIE SALGUERO TECHNIQUE: Using multi-detector [...] vein. PERICARDIUM: (more content not included)... Normal [facility] Complete Blood Count with Au to Diffon 12-24-2021 Basophils (Bld) [#/Vol] 0.13 10*3/uL Normal 0.00-0.20 [facility] Comment on above: Performed By: #### C BCAD, LIPD, CMP #### [facility] [address] [place], [place] [id number] Basophils/100 WBC (Bld) 1.5 % Normal [facility] Comment on above: Performed By: #### C BCAD, LIPD, CMP #### [facility] [address] [place], [place] [id number] Eosinophils (Bld) [#/Vol] 0.14 10*3/uL Normal 0.02-0.50 [facility] Comment on above: Performed By: #### C BCAD, LIPD, CMP #### [facility] [address] [place], [place] [id number] Eosinophils/100 WBC (Bld) 1.6 % Normal [facility] Comment on above: Performed By: #### C BCAD, LIPD, CMP #### [facility] [address] [place], [place] [id number] Erythrocyte distribution width (RBC) [Ratio] 14.3 % Normal 11.0-15.0 [facility] Comment on above: Performed By: #### C BCAD, LIPD, CMP #### [facility] [address] [place], [place] [id number] Hematocrit (Bld) [Volume fraction] 47.1 % Normal 38.5-50.0 [facility] Comment on above: Performed By: #### C BCAD, LIPD, CMP #### [facility] [address] [place], [place] [id number] Hemoglobin (Bld) [Mass/Vol] 15.4 g/dL Normal 13.0-17.1 [facility] Comment on above: Performed By: #### C BCAD, LIPD, CMP #### [facility] [address] [place], [place] [id number] Lymphocytes (Bld) [#/Vol] 3.0 10*3/uL Normal 0.9-3.9 [facility] Comment on above: Performed By: #### C BCAD, LIPD, CMP #### [facility] [address] [place], [place] [id number] Lymphocytes/100 WBC (Bld) 33.2 % Normal [facility] Comment on above: Performed By: #### C BCAD, LIPD, CMP #### [facility] [address] [place], [place] [id number] MCH (RBC) [Entitic mass] 28.4 pg Normal 27.0-33.0 [facility] Comment on above: Performed By: #### C BCAD, LIPD, CMP #### [facility] [address] [place], [place] [id number] MCHC (RBC) [Mass/Vol] 32.7 g/dL Normal 32.0-36.0 [facility] Comment on above: Performed By: #### C BCAD, LIPD, CMP #### [facility] [address] [place], [place] [id number] MCV (RBC) [Entitic vol] 87 fL Normal 80-100 [facility] Comment on above: Performed By: #### C BCAD, LIPD, CMP #### [facility] [address] [place], [place] [id number] Monocytes (Bld) [#/Vol] 0.6 10*3/uL Normal 0.2-0.9 [facility] Comment on above: Performed By: #### C BCAD, LIPD, CMP #### [facility] [address] [place], [place] [id number] Monocytes/100 WBC (Bld) 7.0 % Normal [facility] Comment on above: Performed By: #### C BCAD, LIPD, CMP #### [facility] [address] [place], [place] [id number] Neutrophils (Bld) [#/Vol] 5.0 10*3/uL Normal 1.5-7.8 [facility] Comment on above: Performed By: #### C BCAD, LIPD, CMP #### [facility] [address] [place], [place] [id number] Neutrophils/100 WBC (Bld) 56.2 % Normal [facility] Comment on above: Performed By: #### C BCAD, LIPD, CMP #### [facility] [address] [place], [place] [id number] Platelet mean volume (Bld) [Entitic vol] 10.40 fL Normal 7.50-12.50 [facility] Comment on above: Performed By: #### C BCAD, LIPD, CMP #### [facility] [address] [place], [place] [id number] Platelets (Bld) [#/Vol] 345 10*3/uL Normal 140-400 [facility] Comment on above: Performed By: #### C BCAD, LIPD, CMP #### [facility] [address] [place], [place] [id number] RBC (Bld) [#/Vol] 5.42 10*6/uL Normal 4.20-5.80 [facility] Comment on above: Performed By: #### C BCAD, LIPD, CMP #### [facility] [address] [place], [place] [id number] RDW-SD 45.7 fL Normal 37.0-50.0 [facility] Comment on above: Performed By: #### C BCAD, LIPD, CMP #### [facility] [address] [place], [place] [id number] WBC (Bld) [#/Vol] 8.9 10*3/uL Normal 3.8-11.0 [facility] Comment on above: Performed By: #### C BCAD, LIPD, CMP #### [facility] [address] [place], [place] [id number] Comprehensive Metabolic Pane helder 12-24-2021 Albumin [Mass/Vol] 4.8 g/dL Normal 3.6-5.1 [facility] Comment on above: Performed By: #### C BCAD, LIPD, CMP #### [facility] [address] [place], [place] [id number] Albumin/Globulin [Mass ratio] 2.0 {ratio} Normal 1.0-2.5 [facility] Comment on above: Performed By: #### C BCAD, LIPD, CMP #### [facility] [address] [place], [place] [id number] ALP [Catalytic activity/Vol] 90 U/L Normal 40-129 [facility] Comment on above: Performed By: #### C BCAD, LIPD, CMP #### [facility] [address] [place], [place] [id number] ALT [Catalytic activity/Vol] 16 U/L Normal 9-46 [facility] Comment on above: Result Comment: 09/09 Female reference range changed. Performed By: #### C BCAD, LIPD, CMP #### [facility] [address] [place], [place] [id number] Anion gap [Moles/Vol] 19 mmol/L Normal 12-20 [facility] Comment on above: Result Comment: Effe ctive 10/15/2019 reference range changed. Performed By: #### C BCAD, LIPD, CMP #### [facility] [address] [place], [place] [id number] AST [Catalytic activity/Vol] 17 U/L Normal 10-40 [facility] Comment on above: Performed By: #### C BCAD, LIPD, CMP #### [facility] [address] [place], [place] [id number] Bilirubin [Mass/Vol] 0.40 mg/dL Normal 0.30-1.20 [facility] Comment on above: Performed By: #### C BCAD, LIPD, CMP #### [facility] [address] [place], [place] [id number] BUN/CREA 10 Ratio Normal 6-22 [facility] Comment on above: Performed By: #### C BCAD, LIPD, CMP #### [facility] [address] [place] [id number] Calcium [Mass/Vol] 9.3 mg/dL Normal 8.6-10.2 Rob delacruz [place] Director Community Organization Comment on above: Performed By: #### C BCAD, LIPD, CMP #### [facility] [address] [place], [place] [id number] Chloride [Moles/Vol] 102 mmol/L Normal 98-107 [facility] Comment on above: Performed By: #### C BCAD, LIPD, CMP #### [facility] [address] [place] [id number] CO2 [Moles/Vol] 24 mmol/L Normal 20-31 [facility] Comment on above: Performed By: #### C BCAD, LIPD, CMP #### [facility] [address] [place] [id number] Creatinine [Mass/Vol] 1.0 mg/dL Normal 0.7-1.4 [facility] Comment on above: Performed By: #### C BCAD, LIPD, CMP #### [facility] [address] [facility] [place] [id number] eGFRAA 96 mL/min/1.73m2 Normal >60 [facility] Comment on above: Performed By: #### C BCAD, LIPD, CMP #### [facility] [address] [place], [place] [id number] eGFRNAA 79 mL/min/1.73m2 Normal >60 [facility] Director Community Organization Comment on above: Performed By: #### C BCAD, LIPD, CMP #### [facility] [address] [place] [id number] Globulin (S) [Mass/Vol] 2.4 g/dL Normal 1.9-3.7 [facility] Director Community Organization Comment on above: Performed By: #### C BCAD, LIPD, CMP #### [facility] [address] [place] [id number] Glucose [Mass/Vol] 100 mg/dL High 65-99 Rob delacruz [place] Director Community [facility] Comment on above: Result Comment: For FASTING Glucose --- ADA reference ranges: Normal 65-99 mg/dl Prediabetes 100-125 Diabetes >/= 126 Performed By: #### C BCAD, LIPD, CMP #### [facility] [address] [place], [place] [id number] Potassium [Moles/Vol] 4.5 mmol/L Normal 3.5-5.5 Brannon joe [place] Director Community Organization Comment on above: Result Comment: Spec imen is hemolyzed. Results may be affected. Performed By: #### C BCAD, LIPD, CMP #### [facility] [address] [place], [place] [id number] Protein [Mass/Vol] 7.2 g/dL Normal 6.1-8.1 Rob delacruz [place] Director Community Organization Comment on above: Performed By: #### C BCAD, LIPD, CMP #### [facility] [address] [place], [place] [id number] Sodium [Moles/Vol] 140 mmol/L Normal 135-146 Rob delacruz [place] Director Community Organization Comment on above: Performed By: #### C BCAD, LIPD, CMP #### [facility] [address] [place], [place] [id number] Urea nitrogen [Mass/Vol] 10 mg/dL Normal 7-25 [facility] Director Community Organization Comment on above: Performed By: #### C BCAD, LIPD, CMP #### [facility] [address] [place], [place] [id number] Lipid Panelon 12-24-2021 Cholesterol [Mass/Vol] 333 mg/dL High 125-200 [facility] Director Community Organization Comment on above: Result Comment: Low risk < 200mg/dL Borderline risk 201-239 mg/dl High risk > or equal to 240 Performed By: #### C BCAD, LIPD, CMP #### [facility] [address] [place], [place] [id number] Cholesterol in HDL [Mass/Vol] 34 mg/dL Low >40 [facility] Director Community Organization Comment on above: Result Comment: High Cardiovascular Risk HDL <40 mg/dL Low Cardiovascular Risk HDL > or equal to 60 mg/dl Performed By: #### C BCAD, LIPD, CMP #### [facility] [address] [place], [place] [id number] Cholesterol in LDL [Mass/Vol] 247 mg/dL Normal [facility] Comment on above: Result Comment: LDL ATP III CLASSIFICATION LDL less than 100 mg/dl Optimal LDL 100-129 mg/dl Near or above optimal LDL 130-159 Borderline high LDL 160-189 High LDL greater than 189 mg/dl Very High Performed By: #### C BCAD, LIPD, CMP #### [facility] [address] [place], [place] [id number] Cholesterol in VLDL [Mass/Vol] 52 mg/dL Normal [facility] Comment on above: Performed By: #### C BCAD, LIPD, CMP #### [facility] [address] [place], [place] [id number] Cholesterol.total/Cho lesterol in HDL [Mass ratio] 10 {ratio} Normal [facility] Comment on above: Performed By: #### C BCAD, LIPD, CMP #### [facility] [address] [place], [place] [id number] Triglyceride [Mass/Vol] 262 mg/dL High 30-150 [facility] Director Community Organization Comment on above: Result Comment: TRIG ATPIII CLASSIFICATIONS TRIG less than 150 mg/dl Normal TRIG 150-199 mg/dl Borderline High TRIG 200-500 mg/dl High TRIG greather than 500 mg/dl Very High Performed By: #### C BCAD, LIPD, CMP #### [facility] [address] [place], [place] [id number] Microalbumin (with Creat)on 12-24-2021 mALB <1.2 Low [facility] Comment on above: Result Comment: Unab le to calculate mALB/Crea ratio, mALB is <1.2 mg/dL mALB reference range not established. Performed By: #### m ALBC #### [facility] [address] [place], [place] [id number] UCREA 222 mg/dL Normal 39-259 [facility] Director Community Organization Comment on above: Performed By: #### m ALBC #### [facility] [address] [place], [place] [id number] Q - URINALYSIS,COMPLETEon Appearance (U) CLEAR Normal CLEAR [facility] Director Community Organization Comment on above: Order Comment: [facility] performed at: [email or web address], [employer] [facility], [address] [facility], [address] [place] [address], [address] [place] [address], Windows Architect: River Anna MD [facility] Date/Time: [facility] Results Received Date/Time: [facility] Reported Date/Time: Performed By: #### 3 4F #### [facility] [address] [place] [address] BACTERIA NONE SEEN Normal NONE SEEN [facility] Director Community Organization Comment on above: Order Comment: [facility] performed at: [email or web address], [employer] [facility], [address] [facility], [address] [place] [address], [address] [place] [address], Windows Architect: River Anna MD [facility] Date/Time: [facility] Results Received Date/Time: [facility] Reported Date/Time: Performed By: #### 3 4F #### [facility] [address] [place] [address] Bilirubin Ql (U) Negative Normal NEGATIVE [facility] Director Community Organization Comment on above: Order Comment: [facility] performed at: [employer] [facility], [address] [facility], [address] [place] [address], [address] [place] [address], Windows Architect: River Anna MD [facility] Date/Time: [facility] Results Received Date/Time: [facility] Reported Date/Time: Performed By: #### 3 4F #### [facility] [address] [place] [address] Color (U) YELLOW Normal YELLOW [facility] Director Community Organization Comment on above: Order Comment: [facility] performed at: [employer] [facility], [address] [facility], [address] [place] [address], [address] [place] [address], Windows Architect: River Anna MD [facility] Date/Time: [facility] Results Received Date/Time: [facility] Reported Date/Time: Performed By: #### 3 4F #### [facility] [address] [place] [address] Glucose Ql (U) Negative Normal NEGATIVE [facility] Director Community Organization Comment on above: Order Comment: [facility] performed at: [employer], [employer] [facility], [address] [facility], [address] [place] [address], [address] [place] [address], Windows Architect: River Anna MD [facility] Date/Time: [facility] Results Received Date/Time: [facility] Reported Date/Time: Performed By: #### 3 4F #### [facility] [address] [place] [address] HYALINE CAST NONE SEEN Normal NONE SEEN [facility] Director Community Organization Comment on above: Order Comment: [facility] performed at: Q, [employer] [facility], [address] [facility], [address] [place] [address], [address] [place] [address], Windows Architect: River Anna MD [facility] Date/Time: [facility] Results Received Date/Time: [facility] Reported Date/Time: Performed By: #### 3 4F #### [facility] [address] [place] [address] Ketones Ql (U) Negative Normal NEGATIVE [facility] Director Community Organization Comment on above: Order Comment: [facility] performed at: Q, [employer] [facility], [address] , [address] [place] [address], [address] [place] [address], Windows Architect: River Anna MD [facility] Date/Time: [facility] Results Received Date/Time: [facility] Reported Date/Time: Performed By: #### 3 4F #### [facility] [address] [place] [address] Leukocyte esterase Test strip Ql (U) Negative Normal NEGATIVE [facility] Director Community Organization Comment on above: Order Comment: [facility] performed at: [facility], [employer] [facility], [address] [facility], [address] [place] [address], [address] [place] [address], Windows Architect: River Anna MD [facility] Date/Time: [facility] Results Received Date/Time: [facility] Reported Date/Time: Performed By: #### 3 4F #### [facility] [address] [place] [address] Nitrite Ql (U) Negative Normal NEGATIVE [facility] Director Community Organization Comment on above: Order Comment: [facility] performed at: [email or web address], [employer] [facility], [address] , [address] [place] [address], [address] [place] [address], Windows Architect: River Anna MD [facility] Date/Time: [facility] Results Received Date/Time: [facility] Reported Date/Time: Performed By: #### 3 4F #### [facility] [address] [place] [address] OCCULT BLOOD Negative Normal NEGATIVE [facility] Director Community Organization Comment on above: Order Comment: [facility] performed at: [email or web address], [employer] [facility], [address] , [address] [place] [address], [address] [place] [address], Windows Architect: River Anna MD [facility] Date/Time: [facility] Results Received Date/Time: [facility] Reported Date/Time: Performed By: #### 3 4F #### [facility] [address] [place] [address] pH (U) 5.5 [pH] Normal 5.0-8.0 [facility] Director Community Organization Comment on above: Order Comment: [facility] performed at: [email or web address], [employer] [facility], [address] , [address] [place] [address], [address] [place] [address], Windows Architect: River Anna MD [facility] Date/Time: [facility] Results Received Date/Time: [facility] Reported Date/Time: Performed By: #### 3 4F #### [facility] [address] [place] [address] Protein Ql (U) Negative Normal NEGATIVE [place] [facility] Community Organization Comment on above: Order Comment: [facility] performed at: [email or web address], [employer] [facility], [address] [facility], [address] [place] [address], [address] [place] [address], Windows Architect: River Anna MD [facility] Date/Time: [facility] Results Received Date/Time: [facility] Reported Date/Time: Performed By: #### 3 4F #### [facility] [address] [place] [address] RBC NONE SEEN Normal < OR = 2 [facility] Director Community Organization Comment on above: Order Comment: [facility] performed at: [email or web address], [employer] [facility], [address] [place] [address], [address] [place] [address], [address] [place] [address], Windows Architect: River Anna MD [facility] Date/Time: [facility] Results Received Date/Time: [facility] Reported Date/Time: Performed By: #### 3 4F #### [facility] [address] [place] [address] Specific gravity (U) [Rel density] 1.024 Normal 1.001-1.035 [facility] Director Community Organization Comment on above: Order Comment: [facility] performed at: [email or web address], [employer] [facility], [address] [facility], [address] [place] [address], [address] [place] [address], Windows Architect: River Anna MD [facility] Date/Time: [facility] Results Received Date/Time: [facility] Reported Date/Time: Performed By: #### 3 4F #### [facility] [address] [place] [address] SQUAMOUS EPITHELIAL CELLS NONE SEEN Normal < OR = 5 [facility] Director Community Organization Comment on above: Order Comment: [facility] performed at: [email or web address], [employer] [facility], [address] , [address] [place] [address], [address] [place] [address], Windows Architect: River Anna MD [facility] Date/Time: [facility] Results Received Date/Time: [facility] Reported Date/Time: Performed By: #### 3 4F #### [facility] [address] [place] [address] WBC NONE SEEN Normal < OR = 5 [facility] Director Community Organization Comment on above: Order Comment: [facility] performed at: [facility], [employer] [facility], [address], [address] [facility], [place], [address], Windows Architect: River Anna MD [facility] Date/Time: [facility] Results Received Date/Time: [facility] Reported Date/Time: Performed By: #### 3 4F #### [facility] [address] [place] [address] CT C[address]AC SCORINGon 022 CT CARDIAC SCORING [...] E78.5 Hyperlipidemia, unspecified. COMPARISON: None. ACCESSION NUMBER(S): [id number] ORDERING CLINICIAN: KATIE SALGUERO TECHNIQUE: Using prospective [...] coronary heart disease events. According to the [employer] Clinical Expert Consensus [...] modify other non-lipid coronary risk factors. Reference: [facility] P et al. Circulation. 2007; 115:402-426 [place] [employer] Director: Dr. Karissa Reyes, Date: 12/01/2021 2:10 pm Electronically signed by: NOEMÍ MCGARRY MD [facility] Consent Formson 07-07-2021 Consent Forms [id number]#1.00O [facility] Provider Orderson 07-06-2021 Provider Orders [id number]#1.00O [facility] Consent Formson 07-02-2021 Consent Forms [id number]#1.00O [facility] Coding Summaryon 07-01-2021 Coding Summary HTMLBase 64 FwcndebnOWh3mYy+PGhlYWQ +YC1WOYEhP05ofNUxcW1XE3 oHSK6QFQBGDFAQMO2DJN1ky DW1ZMncS1GuwtTo PkcpmFMmCU85LOt4NEC0bSp hPZfoyR9xvDUfE4p4AjRxIB 32zQ27EBxjMQTlNuD6EeBkw jsgbWFy O2giQrKhdGJqWov+PHRhYmx lIHdpZHRoPScxMDAlJyBzdH hvRC2kNg4vTPFpZQJvsBdhk HNlOiBj g5xkJHKdSZtiSH8zhBmzC4M xcHQ0NXNci8p7Ug71pUJ+PH FhTWU0wYuxMTmyk744OnFfv 2omOKX8 xINbBPviPVA7B56uw9K5KSO kUXOoJCH2bCB9aR9uxIhxen kgU1PkaBQnXzV6TMY2xMTch K8vpJnh lmosgK0bFiz+W67NRV2VBJY BQW6USxh6Z5EqIxsciTX+PC 74OMHwVM92hYOdyVXme0bcf Po8UcLg EAKvOKT9lFggUGqel6LdVQA fC56teUSej7P0SWZtyLakzH YkDsMbtCJ0xO2sQOuvfilvl 2hvdzsn Svrzs6ozwr20eG25L31bZTb hLAEvEBI0HTBmMCMoiAsysi 7cfO4iMr9+XGcag0prw5hlk Ho7GfVu AQQshwEzsSoiQVX8v5DyYf6 8Y8PxpLlrg5ZxAlq3iq08pF Dor1B3sSV9HOqqOQOjmV3uH WxlZnQ6 GRYyQtEgbX01eBLhPGgfMz7 viKzydWsnBW0hDAVmrddmNF ZnjF4dPIVvxFQddTetNS3iY TBpbjtm b969FgPpZRC5MZCnyBGaM0B bqX6iWkUsXPSoCYLdU0LjxB NfZGxyZ996ISljBqW8TJCdu tZxD8Sp CXTqgQpsXsW8m2L5Tn1Jb4X cfgdwEXG9SOqzTZP0UnHmSv OmNnP0Y9KcBrh5ERPcuYmwK A0xQ7Gj MIKoqifplccdgWV3WUScAPE bwX01yBRsNAckQk8aw0W8y0 87IRWkFENzeQ56Dj9cvStjC TBwdCBU oN4tbelrt4ynxwprUoToHUZ bCNq6BNn2RCKgvBtaNsKaQC L1GyA5ART5gJUlvQ9ccPbkp csbmM7u Oyc+D67nnT8wPVP1RTW2frv nEITpzfXdHM72QK62T0IcZl wvdGFibGU+PGRpdiBzdHlsZ Y4rWnMm x9epa0UoNUhsX2RsDMLpOZj hUir7PKOvVFE5yQD4zA1xLA JgSWwmn6U3tQX4S0EhlwHtr e8if1jl KVWkMWrxE30dqZVsd4U1AET kdML1ATQkgVszLuSpsJ08Bo c+CWVczUpfr2ZwFkpfq4bbh 4zjgUe9 FwDdFCHbyuVvwEuyNCJ7i8V xLc69A86mRWpnOSDmZBDyIP PeMCOaxQsivc9vfB7pPc5+P GNvbCB3 vSA9yO0uOZBiDnQ7MBzeN79 5BlIalZSqWisyp4ueq7vtpI x1RgAbESRpbfKfnHxbLZB8p 4QxVr48 U11lYSteJHLiUMLaJKPgWAX voQnwst7wvO6bZq0+PC9jb2 jdnr72aD92bBT+TNTxMIK1e WxlPSdw EQAljQ2lVFkzFuZ5XBEyEtQ hdT41wBWlXSnzRb5kvSuyaO oqGR6rJNLqfqhsy283VzHcx 2xkIDEw pSKcBRhsIIB1A97gf7I4IPK xNIEvKIE9tZV2sG4tgKzwyt ogbGVmdDsgdmVydGljYWwtY GbxC337 IHRvcDsnPlBhdGllbnQgTmF oYEe3N7QqQbc8KXZrtJcnCU 0hoNVpIWneKz0peCednRccP G3cBFAu qywmz509LeZde2usTFAdaMT gOEfcMJX0L02vr6D8IDLeXS PjBSG2dTD6fB7koAtnabfwo GVmdDsg xvZalXgzNIsdIZcsU515TBL exDunWaWjfwFtLDDslUZ3OM 52QQ15sKJgm4F8iVF0G3HpO GRpbmct orriqCV1JMBhMTLidI79Lj4 kpKpmUk3pVRCsBNZ7ZYMetJ JuR8WepA1nGwJjWJAwVQPfU 3RleHQt KGhdS883EDmnStS5OQVpbmE rZ7EaOXVghRzfRjO5v6H8Yc 6UK5C5SU53RN49iCFou6N2d AF1V2Yp FSNdzpdaquryfJI6MGGaESS fdW38Em8xmJwvTd9bFOVlFZ R7GATiaXXsS0ZhnT7xGgNxI DAwMDAw A0NxzGDvYXlvV604YDqnXuD 4BDHhjiTlR0HwQYPdsSifQi M9o0C8Jp1OSSr5JN64ND20h JQwx1U9 mYM2F9OvRLClasiqsyhkkDC 7NXHlETTjsF76Nq6iqOwyBp 7sDYQgAPF5GVXobFMaC6Agq R3gXwZp GSLtPTYzA0PorXWuCIjwJ40 1POlyXtQ1YZVhzxSlA2LsID NxqDgiSmW1l3B7Xl8SRXTyY X13ZEC4 sSV6YT18UI11D9LuPovooFM ibGU+PHRhYmxlIHdpZHRoPS gmDTGlBpPycRdtZU0gGv6oK GVyLWNv sFpcxMRyVpAli9pyETIlPJq mSI0eoGisI7WdcKW6IXYco4 d3Au20Y63rU3QyiMZ+PGNvb II2xSV9 oU5oLxTaToB2DRkvV502RhZ nxMZxBescb8nzp1axnRe1Yd M8VXEaiuAwaShhPKA6w9IsZ q47Z65a IHdpZHRoPSIxNSUiIHZhbGl zhc3dlQ5fXw2+QKNwiOF4hH U2vD2mVgVjHiP2SXsqC182W nRvcCIv Rkdux6hpz3ueqEx9HjPhSLI tgpMvdAglJEF1w8UoCn34P4 AorMrnu5MyMzh6yw70oVIgo 2R0cBR9 Q3KmBCZhsgawrRDasObjIZ9 nBHHghuvaSXZteN4pGRMqQ9 j6PxUfJpI6RTgmA6TnnnC6S DEwcHQg PImuUFM0Y60dl0B3GMWpILB nEYY3uBK1hY4feWzocfzdtI VmdDsgdmVydGljYWwtYWxpZ 246IHRv wHuhCPKkkJ7gUEHyyCEwrZq tJK1tHHYofengAvZBFg7RPf tmLouZYxZRJB49VI08cYJes 9G9zXO1 I3GaZWBcmsxssbdemYY9JID iJRZitT81fVMjRLpyQq2lw5 E1i398NBOwQTUbxS32Tz2ht DogMTBw eBEMqK7rqyzhp2qeezlxOdE kARQyMRu4LZa2VOEktYnsGg SsBZO5ErZ9DXY0iLAikG2mc Glnbjog pX0lKgb+ELOaWTCvQQe6RLm vdGQ+APRmHFO7xEpsOYhvXF OruV5dGGKgE8i8DkTsXhG8R ZbeT0El VIEftcvmUh98vV9aFmTgLfU 9RMreD6UknpO3LEYfhFGiSC sxEUD2E01pw6Z2KWJrTHCpG WY4tKZ4 gA5mjVnhjjybiONmnLrigcS dhBanFBhoEXclK860FHIarF hgTxVoCIirWJGwYH46DW14g QRff4C1 lSA3U4QyEVBxakqiclfqzSG 2YBQqKQVmzY64vDGsFThjSd 5bh0G3g690XCAcEBUnmH09D o7riExk COPdlLGBrC3bigmfd8lrjqj cCqMtFPZnLTp4WSo7XMQrbU oaOtFtMOX8ReY7DJF7rNJbj B8kcOvr hzeqpG9wShp+TUFMRTwvdGQ +KKVeAWU8qBafTSowPKEudT 1yKASrG3k3AgXwJsU9GHfwO 3BhZGRp bzpzCo62yY6bHfPeNxB6KZe uE3QmmhI7CQBvpLUeRShkAA V9O96ei0G6QNQsVYVaNTZ0e VW4tU3s bGlnbjogbGVmdDsgdmVydGl yBOdlNMknH164NORvjBlfGt YztZGYvEOzPYY9SA28XP52P 3RyPjwv dGFibGU+PHRhYmxlIHdpZHR fFIreMKKnRuDuaYyoDV3oMi 9yZGVyLWNvbGxhcHNlOiBjb 2xsYXBz FTlnHY6svLqqT0HuaSV0RYV oe7g5Zc95J52pX5FfiJN+PG GajQQ4fWK3pH8aYbNzSnQ0D ZntL850 SsSglHOlEwxoj7fuo2wpzHu 8GsMvHQEvbuGejBwiYHO9d1 NpWp45M35uUCbbRJFgHWTdZ CUiIHZh kGxjim9pyR3bBu9+PGNvbCB 5gZN0iO7bNgIpUnG8JLqkA3 66SnEiyMQsOwbzZ93lX4Yok XA+PHRy Okc0LLVkzUdpHG4bcYVuRFl hFd0sNTY3WoMjZsNfQQrpM8 ViZJXnwlivwebylUX1WXNsK DUwaW47 Ce1mgYlmHo3sQTZgFHW5TXO sdFChT4AciI0mRaUhVKLgOR PoD6OszRMjADvqI492PWvqE mD0MQLz ozRoQ5EnVZBurDdfCgS4w4O 4Vw8VbQksqKFiTK7cDaPtBU c0J9UuOni0QTEpcXtvQK4od GFkZGlu Ai2ypCkfpWgoJX5bIFVntud hg677WwOzo9ftEXBjiXZpHW moGGC6Y61pr4F0YPDqDLQtI HW5jQX6 lH9vtYqrgeajzVFauZapdtV wiVvuLEguUDeqK311UNCeoW ucItBZVqh4F7UuHvd5GQBuv TqtYB4s tCShONnsBu8hzFyhuJjfYV5 eHVMquehyb059HmJwq4etNN MnkAHlMMiwBSM3V66ug1S8D CMwMDAw VVO6eCB4gI0bfRolubrgdLD mdDsgdmVydGljYWwtYWxpZ2 34AEUjgPqwVk5ETjo2Q3ZfG of1JOAt yIcuYF5qnYYoNGfmIc2brZm wjXxiVD4jODScqvbqz435Jm Qvd2luQQAqoHXqIIzmQXQ0H 64ov2P8 STKrKNMcSSE9wLH0hT5akHx nbjogbGVmdDsgdmVydGljYW beMTxwL597RJGdrIuxAqKoq WVyOjwv dGQ+QX56eg28Y2NtPhuxBpt 5HMWiWFB4mWV9yZ0gTUYpAC ddw5C2yOZ5A2HfyfNmrw2nv 2xsYXBz ZTo (more content not included)... [facility] Coding Summaryon 06-30-2021 Coding Summary HTMLBase 64 BljnbdyhSXr2fEk+PGhlYWQ +FQ1LYTHbJ35sjTUiaB4ED9 yXJW1JLMXLQNBCED4LAH4lw TA3ZWqmS6GsyaIv TbslxQFaJW55IYa6AXX1gKv aYAkkyE9lhNNsM9w3AtDdBD 35jN74OZnwIIVoHxY4DgYgo jsgbWFy U0hsOzWutYFtLyh+PHRhYmx lIHdpZHRoPScxMDAlJyBzdH ekIH1cDi5uEXQvIXFsvAcfe HNlOiBj s5vzJKFpBVevXZ3qwKruG4J dsHW3WFPla6r2Gz16fCL+PH UkYVY4wWtyQDgeb774LtHru 8ubCLH5 eKJoWJzzTAU7I55kx7Z3YCQ iRBEoMUR0hYH4wX5amJpkkw kxT3TdeNTsNcI0FUJ2cNAvo S2fuJmg glcvzW9iHou+Q23WXC8VRNG NHH8ZSkn9C0GtLwzsiOW+PC 09RNBrGP13rNCfuVVeb2yxb Ve0WfEe QAJmXNF4oRhxJHkwh9KpGXQ wI93cnQGkz5D7LTLmvUcjmP IwXmDigFN0jT2eHVmpswoec 2hvdzsn Bdiun7xczl54rL87F38sEBs nDIXhTQT3SUIyMTYtzGqtxo 3odY7tXw8+POvyu6mch9sam Rr0JsHk YOWxntRrgGgeCDK4r0ZjWj4 1O5IhvParl6IrEug2rm50sM Cfn1B9yVB9XUfeQGIskT9eO WxlZnQ6 JXYmScMgqS53aQMxORvqJd7 axZibvFpkHP6rPCOlrptuUH TujC1oYHRotZWcwHxiDK9xL TBpbjtm j649QfXjXKT0UPTubFGwH8S ejG2lRlQoUPTsCTOzQ2LhtM YlHLewM507ULatLbI3KOZag fXgS6Xa UAKytGznWdO4f2W4Jq0Nf4T qeifaLWI9YLsiWYU1OmHfSo OtUeP6S9AmItg1GAGykZhiQ O5xC3Fw YQJgypapkpjpyXW3BPKuVAV dsC96iGBiRJazPc5lw5K2o3 91WCNrYOQziR66Hk8xjMyzD TBwdCBU iJ5lebzja9qiehxaEtRkYSA cBWw5YMw9CLCykTlnNnJhHD F4CjC5SST8yREoaA0wmYlub kbivO8k Oyc+L55phR6kHUQ0OAT8ztj jFOKhtzZuXR40PZ65S8YxOa wvdGFibGU+PGRpdiBzdHlsZ N1gLoHe h9qrh6XiSInpZ6NwZFUzMXh hDhm2BUBnMCK7xXW6xW8lVW IhCEfro2Z2cMM4B8KwvsWyd e6mn6vx GXTvNVdhC57sdADas8J8SMY crWU3XEEalWqqBbQlgM22Qk c+ONMyvVpvi9GtSoypn4vef 0vuxGs0 PnEdEIJviyKyvTocPWU7l7X xQc17B93rIBlnHMLsWUDpOC OfOKVjaIkdzh1hsZ7vPi5+P GNvbCB3 rIN3yN5fXWVwDaX7TWpoS67 2ZsAkoIPgEpjkp9evb1rafX i2GxCsFCHamjTfwOeeQTG9f 2EgIo19 B24uDXnbEQTnTLHbXVBzRRH pcAxxpa9zoH2xPd4+PC9jb2 bzsu19oJ62oHA+HCXeNLD0x WxlPSdw OSQwdJ7jWHxuRkG3WJUyOxY wvJ73mOYmKGnsSq5hcGqtdG mvKW2sVDYcgcqbm269LmKyf 2xkIDEw qARpPRcoVPA1J58ad9R7HZL nRSZpZXM8wBY8dW9ehXopxq ogbGVmdDsgdmVydGljYWwtY KoyJ343 IHRvcDsnPlBhdGllbnQgTmF vVVx2D8DyCzc8VBVmiMwwWR 6cuINmYKbyJj8roBnwtIlmW I0iJBPu jhzxq457VrVjg4yrNBLhzOB lVMwwWAN1T87ez8F5REIqHT DyJZG4qZF6lC9loTqabztxl GVmdDsg foDfvIqlLZetRIgmF041UBZ foTffLgIndvCgWKFobHE2MO 56VW56nEEpv7Z3oFN3Z2PcC GRpbmct koxzmUQ3QATcPLVfkV98Xs7 hbElcSk0uSTAbWVE8RNFkdT KdS3OfcL0lEsNrOSDcYAOiE 3RleHQt XCjnM509OCfzIiX6XSDjtsI zI8AsXZChuWyqLpO9x1U0Zp 5JH6H9AO53TC23uINpd9U8a DR0N9Lm VVQajnosaribeNW5PEVuOJD obC56Rn0etZqtDx5eDHChLN C7VHHwjKDfW9DqpQ5rKiLkB DAwMDAw X2KgcHFvBFdmK345VJgfDuG 2ZLStizXkJ4KjYXMmrFeqMa F1a6Q7Ti4VBGr6WQ83WV47g UAyg4Z9 vTB4B6DcBHMfypqacxtknPA 4HFLsYUUtvO59Ag8oiXimCb 8iPQTmXMN1HPQraOLqU3Oxv J1mQhKq IBHtIFFpM0GndWZmDVcqR79 8QLsaTqS4QLAxcqXzZ3IaDY FgvRdvGcO8o7J8Th2PVXAhE G76TGG8 oOJ3ZD84TK17P4FyWsacnCB ibGU+PHRhYmxlIHdpZHRoPS bjLEFtLdZdzYnjXJ3gPs2jV GVyLWNv nMefjXZoXeQpb4tjGNBdDHh bDC9gwRwgM1RukUD2ZNNnj8 d6Jb41U96uJ4DrcSQ+PGNvb EN1bNT0 dT3yNyNdAiR4YNqgE323JkK hkFJiCnqfy0jdg6kttZw2Du J4CEIkftBruIffKVD7y8WgM j65J59c IHdpZHRoPSIxNSUiIHZhbGl lrz4zsZ3hJf4+WVOmjVB1iO Q4aZ4iJsYfHoV5CZvvK277B nRvcCIv Lkufq2oqx8pdmTl4QdPgESG kcvUgoUueAGA1b4VnWi39L2 IwxYeuj0PsUbt3hf49iICqz 8M8vDW4 E7QqBIXgjtuzgKJexWedJO3 xKNEmqcczZAIgjG1vAIGeV0 y1PyPtWqR1XOtkB9LwzyG4C DEwcHQg HYbmADC4B77hf7C8WDBxKZF vUVC7kBE0dL2ziUhbacgbxO VmdDsgdmVydGljYWwtYWxpZ 246IHRv bCedQEBmnP0wUWTasIIisEr cVQ6rSTPlvuchSzZUWb5JDf pmNyvSMiQOKA94UA55rERwn 7G7xTS6 H6OrHRRnxgboquedyLB3NYM eSAEboJ11lXFcZLazPc4vh3 M5s154HHPxMVNahK86Xx5sf DogMTBw jGBIfU9uhvvdz1krirbrRwR dAIUbLAm5HEw1DZHejGupLh NzJMH2SiZ4QIM6gWIetJ0kp Glnbjog pR6eEsg+EULrIBIbSPx5BGl vdGQ+OQUtUSW5dFlxIJogJH OqfY4dVXXtV2g7DaSzUsE1Z KoxL4Kf BJFposhrOq20tG3mXjUkVxH 3MBpeT1RglzC1IEHdjGEkLV ysKHF2O76xz7I3CGNuZFZnN UJ5aXF7 nU1uuQydskpbbSKqlBtwpuY hwDwgQVpiJKrkE348MFWreL hvKtXdNPtjZJBuKG92MD04e MSel7X8 fXH9M3KyALIovovbhqtsdGE 4SFQuVXXibV15iROfSJwsFb 6xf5I4u860DYFwMPJtvG16M u3cwTub BOLhhFAIpV7guqnvg5mowok kDwKxGTCkGQj8YJs8PYJpxO ktYpZuJXS1KaS3UQU2bTEku X1emZyd hcnozF7vFao+TUFMRTwvdGQ +FSDvMNV4sXmtGYxuNTIynF 9iYNBpA3t3WgAvUvW6ASmhQ 3BhZGRp mazcDm81nF6nHhVtEuS8RTh fI9CukhV3RRWglDYqQVvvGD V8Z33rq6Y9XCJmZIVhBJK3x NV8wO3r bGlnbjogbGVmdDsgdmVydGl qQCcxITwoF309LSEotLtbJw 1JVW34UP86A8OrOnqjmBWru +PHRh YmxlIHdpZHRoPScxMDAlJyB tuJldWQ9dIt0iOJPzWBCfhM xpbWHyKwJdg3jtSHVkWIevL R3ozWba D0YvpKZ7QLDmr5n5Iy80T46 bT5OdaTK+XNIuoLU6cNC3lY 2lUjNaAoS5WGelW964TsRqa CIvPjxj g6atj9updHf3YyNpQUQpfyQ rtSvvYTS6v5OySi68M52hGB dpZHRoPSIyMCUiIHZhbGlnb c6akP7x Ii8+ILSukZW2qJQ1jW9uInN nVvF1RGkvV730FvInwHNfOb uaO47pD7FxmBW+PMJmLjq7Z CBzdHls MN2ohLFoULloBa3lYXF9PdI rYtMcUKvwH4YiQHIpdmhsai ibrSQ2YNKmCMSkfW03La9ah FoeLy3d YNQvWHR9UAFznCXeM0EebP2 kKgWjIAGjRPJdT1VgrKLwWU siF941LHfvIzD5ONDqskNfC 2FsLWFs iZwtQkU1w2Z7Gc6KpEsdlJL aEY3xFyHwNYa4O4GnBhw6VJ EocIokKE2ynSPfVLsmKq2zp WdodDog SL7vXRJxfdpjp237MyMyx3r aTVJfyZGuNAzxPAJ7S45ie2 S7EPUwDVFzGPG8sUQ9qS6to Glnbjog bGVmdDsgdmVydGljYWwtYWx sV517SMIjoGfwIpCIChe5A1 XzJeh9NGXbdKayYQ0yrZFlY DygDw9h cGqrcNtcRD0nNFZizpdri88 9RxZyi3vbAIMkzENjRVuxSR P4W37ok3S9IPNbWWZwXTZ9k TV8eD7a bGlnbjogbGVmdDsgdmVydGl sYUjoZWobP868NIZfvEhkCc 2AFqs6A8HeEsa6UTXsyQwrM A2ahXCx WXiuVf4oiOynlUyoJN4lOAB gvmgol372DnPbe0nkWCTqvA UkVIqrJKS6N83dp0X8ZEXlN DAwMDA7 jOE2wJ3alKngvlzcdJRnuKl jylAvzLazWFvdQRznR335MK RvcDsnPlBheWVyOjwvdGQ+P U13uu68 Q0QxFctvZlq7OWZfEMP2dCF 3oK6jDTPpYSvek5C4fTC6X3 FlvtKjtj8gb5koRZJgUHzgG 29sbGFw c2U (more content not included)... [facility] Consent Formson 06-30-2021 Consent Forms [id number]#1.00O [employer]GTIFF [facility] Outside Recordson 06-30-2021 Outside Records [id number]#1.00O [facility] Telemetry Stripson Telemetry Strips [id number]#1.00O [facility] Anesthesia Noteon 06-29-2021 Anesthesia Note Patient: AFRICA [...] on: 06/29/2021 15:07 EDT] Durga Reardon MD [facility] Anesthesia Note Patient: AFRICA LANTIGUA Age: 41 [...] All Problems Asthma, acute / SNOMED CT 128879456 / Confirmed Hypertension / SNOMED CT 0344549685 / Confirmed Current smoker / SNOMED CT 961867216 / Confirmed Histories Family History: No family history items have been selected or recorded. Procedure history: Lumbar spinal fusion ([id number]). Social History Electronic Cigarette/Vaping Assessment Electronic Cigarette [...] Oriented. Review / Management Laboratory Results Plan [place] [employer]#(ASA) physical status classification: Class II. Anesthetic Preoperative Plan Anesthesia: General. . Anesthetic plan, risks, benefits, and alternatives discussed with the patient and/or family. Patient verbalized understanding. Informed consent was given. Anesthetic technique: General anesthesia. [Electronically Signed on: 06/29/2021 13:50 EDT] Durga Reardon MD [Verified on: 06/29/2021 13:50 EDT] Durga Reardon MD [facility] Inpatient Patient Summaryon 06-29-2021 [place] [address] Patient Discharge Instructions Name: GRZEGORZDENISE : 1980 Patient Address: [address] [place] [address] Primary Care Provider: Name: KATIE SALGUERO After you are discharged if you find you have any questions, please, call [phone] ext [phone] to speak to a nurse. Discharge Diagnosis: Kidney stone Prescription Information: If you have been given a prescription for narcotics, seek immediate medical attention if you have any difficulty breathing or any sudden status changes such as confusion and sleepiness. If you or anyone you know is experiencing suicidal thoughts, mental health, alcohol and/or drug addiction problems; contact the [facility] 02/05 Crisis Hotline -Text 4HYBH sr [id number]. If you received any narcotics, sedation, or [...] business decisions or sign any legal documents [facility] would like to thank you for allowing [...] below: New Medications Printed Prescriptions acetaminophen-hydrocodo ne (Emlenton 5 mg-325 mg oral tablet) 1 tab(s) [...] you can keep with you. acetaminophen-hydrocodo ne (Emlenton 5 mg-325 mg oral tablet) 1 tab(s) [...] to relieve symptoms (more content not included)... [facility] Intraoperative Record MAGR Intra-Op Record Summary Primary Physician: Jm Brown MD Finalized Date/Time: 06/29/21 15:01:13 Pt. Name: DENISE LANTIGUA Reagan Gage/Sex: 1980 MALE Med Rec #: [id number] Physician: Kevin RODNEY, Jm [place] [employer] #: [id number] Pt. Type: D Room/Bed: / Admit/Disch: 06/29/21 [...] 2 Entry 3 Case Attendee Kevin RODNEY, Durga Ly MD, RN, Beatrice Mayo Role Performed Surgeon - Primary Anesthesiologist of Sales Representative [facility] Record Time In 06/29/21 13:29:00 06/29/21 13:29:00 06/29/21 13:29:00 Time Out 06/29/21 14:36:00 06/29/21 14:36:00 06/29/21 14:36:00 Procedure Cystoscopy with Holmium Cystoscopy with Holmium Cystoscopy with Holmium Laser Laser Laser Last Modified By: Aleksandar DELACRUZ, Beatrice Huertas RN, Beatrice Martin RN 06/29/21 14:59:25 06/29/21 14:59:25 06/29/21 14:59:25 Entry 4 Entry 5 Entry 6 Case Attendee Renetta Dong RN, Kim Beckwith Role Performed Scrub Personnel Scrub Personnel Patient Service Rep Time In 06/29/21 13:29:00 06/29/21 13:29:00 06/29/21 13:29:00 Time Out 06/29/21 14:36:00 06/29/21 14:36:00 06/29/21 14:36:00 Procedure Cystoscopy with Holmium Cystoscopy with Holmium Cystoscopy with Holmium Laser Laser Laser Last Modified By: Aleksandar DELACRUZ, Beatrice Huertas RN, Beatrice Martin RN 06/29/21 14:59:25 06/29/21 14:59:25 06/29/21 14:59:25 General Comments: MERLENE LAURA-HOLMIUM LASER Surgical Procedures MAGR Pre-Care Text: A.20 [...] Yes Without Pooli (more content not included)... [facility] PACU Record MAGR PACU Record Summary Primary Physician: Jm Brown MD Finalized Date/Time: 06/29/21 15:39:52 Pt. Name: DENISE LANTIGUA/Sex: 1980 MALE Med Rec #: [id number] Physician: Jm Brown MD Financial #: [id number] Pt. Type: D Room/Bed: / Admit/Disch: 06/29/21 10:36:00 - Institution: PACU Case Times MAGR Entry 1 In PACU I 06/29/21 14:48:00 Discharge from PACU 06/29/21 15:35:00 I Last Modified By: Sendy Zamorano RN 06/29/21 15:39:50 Finalized By: Sendy Zamorano RN Document Signatures Signed By: Sendy Zamorano RN 06/29/21 15:39 [facility] 06-29-2021 MAGR Postoperative Record MAGR Phase II Record Summary Primary Physician: Jm Brown MD Finalized Date/Time: 06/29/21 17:10:47 Pt. Name: DENISE LANTIGUA/Sex: 1980 MALE Med Rec #: [id number] Physician: Jm Brown MD Financial #: [id number] Pt. Type: D Room/Bed: / Admit/Disch: 06/29/21 [...] Signed By: Beatrice Campbell RN 06/29/21 17:10 [facility] Pre-Op Record Summary Primary Physician: Jm Brown MD Finalized Date/Time: 06/29/21 13:49:25 Pt. Name: DENISE LANTIGUA/Sex: 1980 MALE Med Rec #: [id number] Physician: Jm Brown MD Financial #: [id number] Pt. Type: D Room/Bed: / Admit/Disch: 06/29/21 [...] Signed By: Beatrice Huertas RN 06/29/21 13:49 [facility] Patient Handouton 06-29-2021 Patient Handout [facility] XR Abdomen Single View (KUB) on 06-29-2021 [...] Juwan Pryor MD 06/29/21 4:13 pm Technologist: DEMARCUS [facility] XR Fluoroscopy Up to 1 Houro [...] during this procedure. Final Dictated by: Juwan Pryro MD Dictated DT/TM: 06/29/21 3:16 Signed (Electronic Signature): Juwan Pryor MD 06/29/21 4:13 pm Technologist: DEMARCUS [facility] 2018 Novel Coronavirus (CoVI D-19), THERON LCon 06-27-2021 SARS-CoV-2 (COVID-19) RNA THERON+probe Ql (Unsp spec) Not detected Invalid Interpretation Code [facility] Comment on above: Order Comment: [id number] 1 Result Comment: This nucleic acid amplification test was developed and its performance characteristics determined by [facility]. Nucleic acid amplification tests include RT- PCR [...] detected) result in this assay. Performed At: [address] [id number] Floresita Cisneros PhD Ph:[phone] Performed By: #### 6 [id number] #### [facility] (DEFAULT) [address] [place] [address] Progress Note - Nurseon 06-10 Progress Note - Nurse Spoke with pt rega rding arrival time of 1030 and NPO after midnight. Verbalized understanding. [Electronically Signed on: 06/26/2021 10:08 EDT] Norberto DELACRUZ Beatrice Felipe [Verified on: 06/26/2021 10:08 EDT] Norberto DELACRUZ Beatrice Mattoe [facility] Coding Summaryon 06-24-2021 Coding Summary HTMLBase 64 AgrtasjxADw3mOh+PGhlYWQ +AJ8HRJTiW73trYOgqU0GZ7 xHPA5NRDTUMAFYXD1TIR4un OB5DEqnN7GbtcWl McgqcZHdPS71HXr8PIC2iNd oTQcpkR0wxXQaG4h2AuRkOK 38tW88EAuaDYPvZwR1LoMee jsgbWFy L3bpAxHzyUDcHob+PHRhYmx lIHdpZHRoPScxMDAlJyBzdH gbWW0fSi2sPQIkHIDquXuwn HNlOiBj b5sjKFBuQGehED0whCwdB0X hgWW6ECWbw2d0Ze85nRT+PH DxJMR7tVpbMMihd391DbOtp 8aaWDJ9 cZBfMIytZLN9D23pk2Q0EUK vAMYkPBV1aZW4sH2spIaeoc jpG2SzuELrRgZ8RQM4dKZqr F2axJzr ecfzgB8gLkr+P32SVT4RRSU UTS0BRyy0B6IbGjyqyZE+PC 66ZKDkDH02wJXrsEXje2qnz Wp5UnKs MBCbGLO2uHjdDYsvk4YhJZU dF61ifWZat3U5SFMslHatxQ CkEvBgrPA3hD8sJJoeaqnfq 2hvdzsn Ytgjg0dtwi36pB05U47qBMk oHQTyXFF5NVCkSZUasTmlrm 3rmO2wAt5+PZign5scs8rkk Oe8UxGt RGXbgoAyvNlmGHA0d4SoQt1 2L0KdfOhun0AxJbm8ud94dO Zuj0Q1sFD1RXsiPQWxhX6zZ WxlZnQ6 PTEsHoOirR92oQWpCEwnPj2 npVnuyKvjAK5cWOQzvffcLS FurR9fMSYgoWBebBtyFH3yI TBpbjtm i538LtJwZIV2EDDwuZFpR2N yvT4dXeVkATPiLDQzX6EvlD RzAUbtT022NQdjYoS5DSLfy dNhS6Wa MUTlwVazZvH3g1M4Ef4Px4V evpkvUBS4EYlvTQS7BwZ4Vu IjPcU5W7RsDpn2DJBqtUreG S7uX8Ve FKRothcnsgfjpFY7XTCjNFA zoS90iBReCCzuAz8ja7H1l2 44JWMmMLMjgO13Xa1dwDkwD TBwdCBU uM2qnmmpo5dhbpysFjCbSTX zFPo3JWe5CFCxtVgzExPlKM J8ZyL9XMG5qKLtyW9pdDqep kfgpJ8e Oyc+Y98eqC1nZFB7QWL5xbd jUIVbxcUgMV72HA53D7HxHc wvdGFibGU+PGRpdiBzdHlsZ N6eXlSf n6iml9JqBPlvI1KeEQUmPNl zJxc3OPWyQOQ5dGO3cR1aJH YaBRdwn5G2sKD1Q2JwdnKqj d0cq5xk YDGlPOsdW17anQZai3U1JYF shMQ7IYSxkLfkQvUafA67Od c+PLByaMmgu6AzJuadq3pwu 5lomWk6 GxZvFVAjfbRrcWtnIAH2g0P vJr69Z18cCYeoMFJmTOLvKB CpGYJdaTcdqx7kcW0aOg4+P GNvbCB3 fCS7vG0xPSQwSiI0LEwzZ56 1LwZrhJOnKmjhc8kxc0cubF c4PxAqXFKxokRczArfRHZ4g 6UgDb78 R45vRXxmGSCbRTDhIDBhBGD zhVmrce5tlU5zLq5+PC9jb2 qklg30sV19iON+RPClRNP9j WxlPSdw FCDquI3aIJlgTnI8ALHbMeY omP98bGIbXKlgSx2efCeitF sjVS8fDPWzvckat700UyXhn 2xkIDEw yTTkXArrCEX5X54hi0G4FXW bMBJaEZJ2ePY2pR7vtHpdwl ogbGVmdDsgdmVydGljYWwtY DwaX280 IHRvcDsnPlBhdGllbnQgTmF fNWg1E7AeWkv5NWFchFgmXW 8ztHIyCIczIq5daEdqtDakJ U1nLZGr ufvwp767CmCwv9ecOSTcyHH kUEaqPEA3A30cw3W7SGLyLQ PeHIJ3jJM2xM0uxGgisidic GVmdDsg afUeoWfxZLceSRqlV956VVX ntQziLwMdivKhDGYxsJL6DA 64UK15uSEud2H3mJR7P3HdK GRpbmct omcsfTI7KMGkWQSizZ93Rh9 ugBcmLu2vAGEiYLO2HMDbgZ KeM5MphM8wWzUqRLBiJTNlQ 3RleHQt JCsrO818PMgiXgZ7HJZqsgB vS4WpOKYtjOklNeB6s8S2Tk 5PW9L0NU04ZJ78rZGci8X5n ZP2H4Zp MOWplfdvzwzgmKX5MOXsQTG edS59Wm5wiHbqUm7wMGRmXD Q9BIKilHHeS9BogQ2eDsTbT DAwMDAw A5OisLPdEApnK593RJhxAuE 9DHOrssMkI7LpKWGxiFryQa P5b8N8Pf3YZTz7MX68NE06o TUbr0K2 jVS0Y1LpBLYxjgqknifjaYI 2TJRxXYKtlJ00Ro0tyZlcCj 0nQVKdQCR5WSFplQFfE5Njt D4wIuXd ECFrRLQeH0DntVLwLRtvM20 0OApaPnD5VDCbcxOlN9XqDL BmwWyeZeA7v6J9Pa0FHORkW E52PSK6 rGM7XC62JM39F9HoGblyoMV ibGU+PHRhYmxlIHdpZHRoPS ewQLCdQbOdbJfmBD3rIt0fN GVyLWNv rOhdcCOcIoHeh1wqWAOeCEt hCG0eoAreR4VmlZJ9EZIiu1 c5Or58D80eZ2OiiAZ+PGNvb IZ1uLC1 yP1mZbMbMeV6ZPcwX992VzP sxLFxPwxma0tkn6rozTf0Je E8OTFinvPxoPhnWEO6y4XaZ r61E16j IHdpZHRoPSIxNSUiIHZhbGl mwn2agL8qQe8+FYVymBC9iI Z3wQ0bFzJbJzV2SKggZ106N nRvcCIv Veqnw6wng2hhdIe6FjHjEKZ lgpZpjJkzLBQ0s8LyEj34Q3 XtdMkdl9HzAaf7sw14wRIzf 2E7aIT6 A7PbKDFwfatquUNupFtaGD9 pAAJdpsgnXRUiwT1bXTJvA5 d1UsPpQfR1EMfhC9EnptE8A DEwcHQg HWtyFZJ8Q22ny1E8QIUnIZM bBOS3fRZ3eC3qwAjybvwjrE VmdDsgdmVydGljYWwtYWxpZ 246IHRv xOpkHFIifV4hDCXijDIwkDz oAX9hGTGjixdfYoTACl6SRo coXbrXZjSEHN53WD65tXVyp 2Q0fET2 T9PjFTDttsqqjoipfES0MCZ hAIXdqJ78aVCjISefIy2bv5 C1d413EEOuICOqwN56Iy2ti DogMTBw gOEIwF6uatbfw8fcdcyeBpY cWWEpZMy6DBv2AYFxhIwqCv TnAJK5MoM7GBM3kKXdbR8oa Glnbjog xI4kYvq+NHWvNMDlXDu4SEd vdGQ+SEBlRSS6rWtwINznHF OseI6eSBSjT0a6TjXfBjK2N SlcD9Sa HAOacrruRy32yT4gFtOhYnJ 6EZnnF5ScmkC9UCLnfCTbUR fgAXE4W75wb7T6EXCgZIIoZ TT7hII2 wY9zwTshuxpvzKVmhFanftS blZsrAPwcJWubW165JUUfnC qmDjJrQIjcJVUjGK83OI29l TFek6Y2 tGE3Z6XqTHFshppyxheycMR 4NSYbQJBbyT08uNWxHEqfNs 1uy2G8e264FWPfEJZvlV04S i8jfNxg QEYnfIUNuD5wxwzmr6egubk yNdCnJHXwZMz4OTz9VHOwhJ bfFgCcCPR5OmO3ZML0zIOzj W6tfCfg duiswZ5wFgl+TUFMRTwvdGQ +KWIsUTG1qGhvZZqeIIAesI 1bYUGrE6y2LqOfYhI9HFdaF 3BhZGRp curcZf66vD3lHxDjQkG9DZq lB1UlqtM6YQAyaHEeJDwjCF B4H56fy4M4UNWxHTYePQR9b HV9aF5w bGlnbjogbGVmdDsgdmVydGl hHWccXMzpU813XLBzcCbzNu 2XBI78VL26F9IbEmvyzIOny +PHRh YmxlIHdpZHRoPScxMDAlJyB bfOmxZY8eLt1yAGRaBCQryV ujhENjRcFli9lgFKQzHXsmZ T8ctNsw F4ZhfSZ6JTNns8b8Ss47K22 gE4RmgGF+VXWhlWK8iZL3pW 4mSoBlJwK0FPwlD158DzPoz CIvPjxj p2thj7ftxSs7JjOxIMVtpyH xoZfmTGW5g7JdZf31N91qSA dpZHRoPSIyMCUiIHZhbGlnb f2duY3w Ii8+ZZQtuDS4xCH3iP3uYtN tBdN4FRqjZ970GvNbaUTfDy olU50uN4OxsPB+CTZtLtk9C CBzdHls SO8zbBGxYQgkBd4kYTC3DiT hUeXfOAqoX8IpKODnvshtko qdxKW6RVMtBDPveR25Cm2qz HkkCk4f WHZpFUN3BUWcxKAuD5QzyH9 aUbTvAQSvIKMfM0NtpZEqSV xmU861DPolHtI8XDZooqKhH 2FsLWFs gJfbBtK9h2N8Nv6BwPhzsUM gVT7tJoKhBHv5B5KgLet2MV FhvWknCM3ztUAkUZgyVt5im WdodDog CZ8wXDOagscav568WaMlu8f uEZAdzCOnLBwaGJH8C25sk0 O4NKCrJOHeVRV9bTY5kG4cw Glnbjog bGVmdDsgdmVydGljYWwtYWx tZ358PBHalKqmAnFFKjv8J0 WgGdn9FFCbgHgnTJ0kbUBkK RaqAw2s zJtxmAheDL5dQZVksxhaj33 8BlPmu9abMGEmuDMfSWnvLW Z6E24db2F8PTNeOYCtYDD7z ID5cU3n bGlnbjogbGVmdDsgdmVydGl cONfbQYaoA532RVZltRktXi 8FAdz4L0KuUzb3ACFoxBjdH B2rzBNy CYsdKq4syCkpfUywUO0uRIW gxhgpa549RlBld7asXCDriE NoOEyzRQK6O49uz0Q7NZQpI DAwMDA7 fWE2bX8ffAkpihwiqTIcrGm thzApsNyaZGccHYmeS694XD RvcDsnPlBheWVyOjwvdGQ+P C63vw36 P5DyEsebJzf5YPWoBWY2fFD 1iT0bBWViDPxdw3V8xJS7I6 PsjxDpki4ow1irNSPbFKczD 29sbGFw c2U (more content not included)... [facility] Consent Formson 06-22-2021 Consent Forms [id number] TGTIFF [facility] C Urineon 06-20-2021 C Urine No growth at 2 days. Normal [facility] Comment on above: Performed By: #### 6 [id number] ####[facility] (DEFAULT)[address] [place] [address] Provider Orderson 06-19-2021 Provider Orders [id number]#1.00O TGTIFF [facility] .Auto Diff 1on 06-18-2021 Auto [place] % 6 % Normal 12 [facility] Comment on above: Performed By: #### 7 [id number], [id number], [id number] ####[facility] (DEFAULT)[address] [place] [address] Baso Abs# 0.1 x10 Normal 0.0-0.2 [facility] Comment on above: Performed By: #### 7 [id number], [id number], [id number] ####[facility] (DEFAULT)[address] [place] [address] 71294 Basophils/100 WBC (Bld) 1.2 % Normal 0.2-2.0 [facility] Comment on above: Performed By: #### 7 [id number], [id number], [id number] ####[facility] (DEFAULT)[address] [place] [address] 78152 Eos Abs# 0.2 x10 Normal 0.0-0.4 [facility] Comment on above: Performed By: #### 7 [id number], [id number], [id number] ####[facility] (DEFAULT)[address] [place] [address] 50420 Eosinophils/100 WBC (Bld) 1.8 % Normal 0.9-4.0 [facility] Comment on above: Performed By: #### 7 [id number], [id number], [id number] ####[facility] (DEFAULT)[address] [place] [address] 23288 Lymph Abs# 2.7 x10 Normal 1.3-2.9 [facility] Comment on above: Performed By: #### 7 [id number], [id number], [id number] ####[facility] (DEFAULT)[address] [place] [address] 35264 Lymphocytes/100 WBC (Bld) 25 % Normal 14-48 [facility] Comment on above: Performed By: #### 7 [id number], [id number], [id number] ####[facility] (DEFAULT)[address] [place] [address] 88292 [place] Abs# 0.6 x10 Normal 0.0-0.8 [facility] Comment on above: Performed By: #### 7 [id number], [id number], [id number] ####[facility] (DEFAULT)[address] [place] [address] 19195 Neut Abs# 7.2 x10 Normal 1.5-9.2 [facility] Comment on above: Performed By: #### 7 [id number], [id number], [id number] ####[facility] (DEFAULT)[address] [place] [address] 17121 Neutrophils/100 WBC (Bld) 66 % Normal 44-88 [facility] Comment on above: Performed By: #### 7 [id number], [id number], [id number] ####[facility] (DEFAULT)[address] [place] [address] [facility] Standardon 06-18-2021 eGFR Non AA >60 Invalid Interpretation Code [facility] Comment on above: Performed By: #### 7 [id number], [id number], [id number] ####[facility] (DEFAULT)[address] [place] [address] 89880 eGFR AA >60 Invalid Interpretation Code [facility] Comment on above: Result Comment: Tube Buffer yury Kidney disease could be indicated at eGFRs of less than 60 ml/min/1.73m2. Kidney Failure is indicated at less than 15 ml/min/1.73m2 Performed By: #### 7 [id number], [id number], [id number] ####[facility] (DEFAULT)[address] [place] [address] 23969 Anion gap [Moles/Vol] 14.0 mmol/L Normal 5.0-19.0 [facility] Comment on above: Performed By: #### 7 [id number], [id number], [id number] ####[facility] (DEFAULT)[address] [place] [address] 14814 Calcium [Mass/Vol] 9.5 mg/dL Normal 8.9-10.3 [facility] Comment on above: Performed By: #### 7 112437, [id number], [id number] ####[facility] (DEFAULT)[address] [place] [address] 37370 Chloride [Moles/Vol] 101 mmol/L Normal 101-111 [facility] Comment on above: Performed By: #### 7 027724, [id number], [id number] ####[facility] (DEFAULT)[address] [place] [address] 16940 CO2 [Moles/Vol] 28 mmol/L Normal 21-32 [facility] Comment on above: Performed By: #### 7 991908, [id number], [id number] ####[facility] (DEFAULT)[address] [place] [address] 05111 Creatinine [Mass/Vol] 0.99 mg/dL Normal 0.90-1.30 [facility] Comment on above: Performed By: #### 7 [id number], [id number], [id number] ####[facility] (DEFAULT)[address] [place] [address] 31657 Glucose [Mass/Vol] 89.0 mg/dL Normal 74.0-118.0 [facility] Comment on above: Performed By: #### 7 [id number], [id number], [id number] ####[facility] (DEFAULT)[address] [place] [address] 50818 Osmolality 276 mOsm/L Invalid Interpretation Code [facility] Comment on above: Performed By: #### 7 [id number], [id number], [id number] ####[facility] (DEFAULT)[address] [place] [address] 84264 Potassium [Moles/Vol] 3.8 mmol/L Normal 3.6-5.1 [facility] Comment on above: Performed By: #### 7 [id number], [id number], [id number] ####[facility] (DEFAULT)[address] [place] [address] 75594 Sodium [Moles/Vol] 139.0 mmol/L Normal 136.0-144.0 [facility] Comment on above: Performed By: #### 7 584269, [id number], [id number] ####[facility] (DEFAULT)[address] [place] [address] 76512 Urea nitrogen [Mass/Vol] 9 mg/dL Normal 8-26 [facility] Comment on above: Performed By: #### 7 [id number], [id number], [id number] ####[facility] (DEFAULT)[address] [place] [address] 21621 Urea nitrogen/Creatinine [Mass ratio] 9.0 mg/mg Normal 4.6-16.2 [facility] Comment on above: Performed By: #### 7 [id number], [id number], [id number] ####[facility] (DEFAULT)[address] [place] [address] 28733 CBC w/ Auto Diffon 1 Erythrocyte distribution width (RBC) [Ratio] 14.8 % Normal 11.5-15.0 [facility] Comment on above: Performed By: #### 7 [id number], [id number], [id number] ####[facility] (DEFAULT)[address] [place] [address] 69022 Hematocrit (Bld) [Volume fraction] 47.5 % Normal 34.8-51.9 [facility] Comment on above: Performed By: #### 7 [id number], [id number], [id number] ####[facility] (DEFAULT)[address] [place] [address] 12527 Hemoglobin (Bld) [Mass/Vol] 16.0 g/dL Normal 11.8-17.7 [facility] Comment on above: Performed By: #### 7 832335, [id number], [id number] ####[facility] (DEFAULT)[address] [place] [address] 28551 Instr WBC 10.8 x10 Invalid Interpretation Code [facility] Comment on above: Performed By: #### 7 [id number], [id number], [id number] ####[facility] (DEFAULT)[address] [place] [address] 76402 Man Diff? Auto Normal [facility] Comment on above: Performed By: #### 7 606890, [id number], [id number] ####[facility] (DEFAULT)[address] [place] [address] 38322 MCH (RBC) [Entitic mass] 29 pg Normal 24-34 [facility] Comment on above: Performed By: #### 7 525930, [id number], [id number] ####[facility] (DEFAULT)[address] [place] [address] 74350 MCHC (RBC) [Mass/Vol] 34 g/dL Normal 26-37 [facility] Comment on above: Performed By: #### 7 563753, [id number], [id number] ####[facility] (DEFAULT)[address] [place] [address] 80264 MCV (RBC) [Entitic vol] 87 fL Normal 81-100 [facility] Comment on above: Performed By: #### 7 828119, [id number], [id number] ####[facility] (DEFAULT)[address] [place] [address] Platelet 372 x10 Normal 138-427 [facility] Comment on above: Performed By: #### 7 311508, [id number], [id number] ####[facility] (DEFAULT)[address] [place] [address] Platelet mean volume (Bld) [Entitic vol] 9.5 fL Normal 6.3-10.2 [facility] Comment on above: Performed By: #### 7 703394, [id number], [id number] ####[facility] (DEFAULT)[address] [place] [address] RBC 5.48 x10 High 3.70-5.30 [facility] Comment on above: Performed By: #### 7 093203, [id number], [id number] ####[facility] (DEFAULT)[address] [place] [address] WBC 10.8 x10 High 3.5-10.5 [facility] Comment on above: Performed By: #### 7 298765, [id number], [id number] ####[facility] (DEFAULT)[address] [place] [address] ALLIED HEALTHon 11-07-2018 ALLIED HEALTH HNO ID: [id number] Author: Shruti Hicks (Rt) Service: Radiology Author Type: Vp Clinical Type: Allied Health Filed: 11/07/2018 11:36 AM [...] RT Fabiola November 07, 2018 11:34 [facility]VW ) DENISE LANTIGUA ([id number]) 1980 M Date Time Provider Department 11/07/18 [...] is currently following with pain management in [place]. X-ray lumbar spine flexion and extension ordered. [...] is currently following with pain management in [place]. X-ray lumbar spine flexion and extension ordered. He may benefit from chronic pain rehabilitation program. ? Follow up in spine surgery clinic at 4 months for reassessment Referring Provider: LAUREL LOERA) [[id number]] Allergies As of Date: 11/07/2018 (No Known Allergies) Date Reviewed: 11/07/2018 Reviewed by: Ana Ellis Ma - Fully Assessed Reason for Visit: Established Patient [175] Primary Visit Diagnosis:Lumbar disc herniation [M51.26] Order(s):XR LUMBAR MOTION 4V AP/LAT/ FLEX/EXT [3957260] Order #: [id number] FUTURE Prescriptions as of 11/07/2018 Sig: OXYCODONE-ACETAMINOPHEN [...] is currently following with pain management in [place]. X-ray lumbar spine flexion and extension ordered. He may benefit from chronic pain rehabilitation program. ? Follow up in spine surgery clinic at 4 months for reassessment Encounter Status:Closed by LAUREL LOERA MD on 11/07/[address] [facility] PROGRESSon 11-07-2018 Protein mass conc HNO ID: [id number] Author: Laurel Littlejohn) Luz Maria Service: (none) [...] is currently following with pain management in [place]. X-ray lumbar spine flexion and extension ordered. [...] 07, 2018 TIME: 10:30 AM PAGER: Normal [facility] XR LUMBAR 4V AP/LAT/ FLEX/EX Ton [...] at L5-S1 with no acute fractures seen Account Classification Clerk: CHAKA Transcribe Date/Time: Nov 07 2018 2:02P Dictated by : RAFIQ CANO MD This examination was interpreted and the report reviewed and electronically signed by: RAFIQ CANO MD on Nov 07 2018 2:03PM EST [id number] [facility] 07-18-2018 CNPN Telephone (NIQ) DENISE LANTIGUA ([id number]) 1980 M Date Time Provider Department 07/18/18 [...] 12 weeks off initially Maria Luisa Sher [facility] 07/18/2018 4:17 PM Signed Patient calling back with fax [facility] for [facility], Patient wants to know how many more weeks are being approved. [phone] ALBERTO Moreira- 07/20/2018 11:20 AM Signed New letter written ALBERTO Moreira- Sarah Mueller RN 07/20/2018 11:48 AM Signed Letter faxed as requested [facility] notifying pt Allergies As of Date: 07/18/2018 (No Known Allergies) Date Reviewed: 07/07/2018 Reviewed by: Rhona Coyne Ma - Fully Assessed Reason for Visit: [place] Paperwork [6004] Prescriptions as of 07/18/2018 Sig: OXYCODONE-ACETAMINOPHEN 5-325* [...] FOR* More... Letter Text Laurel Loera M.D. [facility] / [address] [place] [address] Office: Appt: Letter Text Srinivas Franks PA-C [facility] Neurosurgery 07/20/2018 To Whom it May Concern: This is to certify that Denise Lantigua was seen at our office for medical care. Mr Lantigua may return to work on 08/09/18. If you have any questions please feel free to call. Thank you, PRASHANTH Moreira Encounter Status:Closed by SRINIVAS FRANKS PA-C on 07/20/18 [facility] CNOVon 07-07-2018 CNOV Office Visit (NSFRVW ) GRZEGORZDENISE THOMPSON ([id number]) 1980 M Date Time Provider Department 07/07/18 [...] months for reassessment. Referring Provider: LAUREL LOERA) [[id number]] Allergies As of Date: 07/07/2018 (No Known Allergies) Date Reviewed: 07/07/2018 Reviewed by: Rhona Coyne Ma - Fully Assessed Reason for Visit: Follow Up [171] Cmt: Post Op Primary Visit Diagnosis:Radiculopathy , lumbar region [M54.16] Order(s):CONSULT TO PHYSICAL THERAPY [9032] Order #: [id number]: 1 Prescriptions as of 07/07/2018 Sig: OXYCODONE-ACETAMINOPHEN [...] by LAUREL LOERA MD on 07/07/[address] [facility] PROGRESSon 07-07-2018 Protein mass conc HNO ID: [id number] Author: Laurel Littlejohn) Luz Maria Service: (none) [...] 07, 2018 TIME: 9:32 AM PAGER: Normal [facility] ANES Melvi 06-14-2018 ANES POST HNO ID: [id number] Author: Moise Nj Service: Anesthesiology Author Type: Anesthesiologist Type: Anesthesia [...] 06/14/18 1146 06/14/18 1500 06/14/18 1515 Resp: 18 18 18 06/14/18 1146 06/14/18 1500 06/14/18 1515 SpO2: [...] 14, 2018 TIME: 3:19 PM PAGER/CONTACT #: [phone] [facility] ANES PREOPon 06-14-2018 ANES PREOP HNO ID: [id number] Author: Moise Nj Service: Anesthesiology Author Type: Anesthesiologist Type: Anesthesia [...] Management Plan: ROOT Protocol Parenteral or Oral [facility] Chart Review ACTIVE PROBLEM LIST Radiculopathy, Lumbar Region Lumbar Disc Herniation Degeneration of Lumbar Intervertebral Disc PAST MEDICAL HISTORY Diagnosis Date - Asthma - HTN (hypertension) PAST SURGICAL HISTORY Procedure Laterality Date - PAST SURGICAL HISTORY OF 2016 Left L5-S1 discectomy with foraminotomy FAMILY HISTORY [...] daily. WITH FOOD Inpatient medications reviewed in [facility]. I have interviewed and examined the [...] 14, 2018 TIME: 12:12 PM PAGER/CONTACT #: [phone] [facility] Confirm Blood Typeon 018 ABO/RH(D) Positive [facility] Comment on above: Performed By: #### C ONABO #### [facility] [address] [place] [address] HISTORY PHYSICALon HISTORY PHYSICAL HNO ID: [id number] Author: Laurel Littlejohn) Luz Maria Service: Neurosurgery [...] DATE: June 14, 2018 TIME: 12:35 PM PAGER:[phone] [facility] NURSING PROGon 06-14-2018 Protein mass conc HNO ID: [id number] Author: Andrew ZapienRn) NUBIA Hernandez Service: (none) Author Type: Registered Nurse Type: Nursing Progress Note Filed: 06/14/2018 7:08 PM Note Text: Nursing Progress Note Patient Name: Denise Lantigua Patient Location: [place] [address] [address] Transfer Note: Late entry from 1700 Patient transferred into room/unit PK335 in stable condition. Actions taken: Patient oriented to room and unit routines. Call light placed within reach and patient instructed on use. This note was completed by: Andrew Hernandez RN [facility] Protein mass conc HNO ID: [id number] Author: Beatrice ZapienRn) NUBIA Valle Service: Nursing Author Type: Registered Nurse Type: Nursing Progress Note Filed: 06/14/2018 1:57 PM Note Text: Patient family updated on status of procedure per NUBIA Yeung at 1324. [facility] OPERATIVE NOon 06-14-2018 OPERATIVE NO HNO ID: [id number] Author: Laurel Littlejohn) Luz Maria Service: Neurosurgery Author Type: Physician Type: Operative Report Filed: 06/14/2018 3:07 PM Note Text: OPERATIVE/PROCEDURE REPORT LOG ID: [id number] SURGERY/PROCEDURE DATE: 06/14/2018 INCISION/PROCEDURE START TIME: 1:16 PM INCISION CLOSE/PROCEDURE END TIME: 02.40 PM SURGEON(S)/PROCEDURALIS T(S) AND CHICKEN DRESSER(S): Surgeon(s) and Role: * Laurel Littlejohn) Luz Maria - Primary Physician Pan Washer Hand: Srinivas Franks ANESTHESIA: General PRE-OP/PRE-PROCEDURE DIAGNOSIS: Left side [...] 14, 2018 TIME: 2:58 PM PAGER/CONTACT #: [phone] [facility] PROGRESSon 06-14-2018 Protein mass conc HNO ID: [id number] Author: Laurel Loera Service: Neurosurgery Author Type: Physician Type: Progress Notes Filed: 06/14/2018 7:24 PM Note Text: Post op note ? Post op left L5-S1 revision diskectomy with foraminotomy Operative pain is better with medications ? Moving limbs Dressing clean and dry ? Plan: Continue pain medications Regular diet PT /OT SCD Incentive spirometry ? Laurel Loera MD Staff, neurosurgery [facility] PT EDon 06-14-2018 PT ED HNO ID: [id number] Author: Olive Enamorado) NUBIA Stoner Service: Nursing Author Type: Registered [...] None Electronically Signed By: Olive Stoner RN [facility] XR LUMBAR 1Von 06-14-2018 XR LUMBAR 1V [...] Localization to L5-S1 of the lumbar spine. Account Classification Clerk: PSCB Transcribe Date/Time: Jun 14 2018 1:44P Dictated by : RAFIQ CANO MD This examination was interpreted and the report reviewed and electronically signed by: RAFIQ CANO MD on Jun 14 2018 1:44PM EST [id number] [facility] NURSING PROGon 06-09-2018 Protein mass conc HNO ID: [id number] Author: Odilia Enamorado) NUBIA Zelaya Service: General Surgery Author Type: Registered Nurse Type: Nursing Progress Note Filed: 06/13/2018 6:44 AM Note Text: PACC Nurse Progress Note History AND Physical: PACC Visit Date: 06-08-18 Original HANDP Date: N/A ED visit Date: N/A Outside HANDP Scanned Date: N/A Labs Within Last 6 Months: CBC: 06-08-18 BMP/CMP: Date 06-08-18 PT: Date 06-08-18 PTT: Date 06-08-18 UA: Date 06-08-18 STAAMP: Date 06-08-18 TYPE AND SCREEN: 06-08-18 Within acceptable limits, results in [facility]. Imaging Within Last 12 Months: MRI 02-12-18 X-ray Lumbar 02-12-18 Results in [facility]. Cardiac Testing: EKG in last 12 Months: Yes: Date: 06-08-18, Comment: Confirmed in [facility]. Last Menstrual Period: LMP Date: N/A Postmenopausal >1yr: N/A, S/P Hysterectomy: N/A BMI Percentile (PEDS): N/A Risk Assessment: N/A Anesthesia Review: N/A Narrative: N/A Pre-op Considerations: Asthma: Rare inhaler use Chart Check: COMPLETED Odilia Zelaya RN June 09, 2018 11:13 AM Normal [facility] APTTon 06-08-2018 aPTT Coag time (Bld) 26.8 s Normal 23.0-32.4 [facility] Comment on above: Result Comment: Unfr actionated [...] laboratory APTT reagent in use throughout the [facility]. Performed By: #### C BC, PT, PTT, BMP ####[address] [phone] Basic Metabolic Panlon 06-08 Anion gap molar conc 14 mmol/L Normal 9-18 [facility] Comment on above: Performed By: #### C BC, PT, PTT, BMP ####[address] [phone] Calcium mass conc 9.7 mg/dL Normal 8.5-10.2 [facility] Comment on above: Performed By: #### C BC, PT, PTT, BMP ####[address] [phone] Chloride molar conc 101 mmol/L Normal 97-105 [facility] Comment on above: Performed By: #### C BC, PT, PTT, BMP ####[place] [address] [place], [place] [phone] CO2 molar conc 27 mmol/L Normal 22-[address] [facility] Comment on above: Performed By: #### C BC, PT, PTT, BMP ####[place] [address] [place], [place] [phone] Creatinine mass conc 1.07 mg/dL Normal 0.73-1.22 [facility] Comment on above: Performed By: #### C BC, PT, PTT, BMP ####[facility] [place], [place] [phone] eGFR- Amer. >60 Normal [facility] Comment on above: Performed By: #### C BC, PT, PTT, BMP ####[facility] [place], [place] [phone] GFR/1.73 sq M predicted among non-blacks MDRD vol rate/area (S/P/Bld) mL/min/{1.73_m2} Normal [facility] Comment on above: Result Comment: eGFR [...] By: #### C BC, PT, PTT, BMP ####[place] [address] [place], [place] [phone] Glucose mass conc 86 mg/dL Normal 74-99 [facility] Comment on above: Result Comment: The [place] [employer] (ADA) provides guidance for cutoff [...] Standards of Medical Care in Diabetes 2016, [place] [employer]. Diabetes Care. 2016.39(Suppl 1). Performed By: #### C BC, PT, PTT, BMP ####[place] [address] [address], [place] [phone] Potassium molar conc 4.7 mmol/L Normal 3.7-5.1 [facility] Comment on above: Performed By: #### C BC, PT, PTT, BMP ####[place] [address] [address], [place] [phone] Sodium molar conc 142 mmol/L Normal 136-144 [facility] Comment on above: Performed By: #### C BC, PT, PTT, BMP ####[place] [address] [address], [place] [phone] Urea nitrogen mass conc 8 mg/dL Low 9-[address] [facility] Comment on above: Performed By: #### C BC, PT, PTT, BMP ####[place] [address] [address], [place] [phone] CBCon 06-08-2018 Absolute nRBC <0.01 Normal <0.[address] [facility] Comment on above: Performed By: #### C BC, PT, PTT, BMP ####[place] [address] [address] [place] [phone] Erythrocyte distribution width Ratio (RBC) 14.8 % Normal 11.5-15.[address] [facility] Comment on above: Performed By: #### C BC, PT, PTT, BMP ####[place] [address] [address], [place] [phone] Hematocrit Volume Fraction (Bld) 47.5 % Normal 39.0-51.[address] [facility] Comment on above: Performed By: #### C BC, PT, PTT, BMP ####[place] [address] [address], [place] [phone] Hemoglobin mass conc (Bld) 15.6 g/dL Normal 13.0-17.[address] [facility] Comment on above: Performed By: #### C BC, PT, PTT, BMP ####[place] [address] [address], [place] [phone] MCH Entitic mass (RBC) 27.6 pG Normal 26.0-34.[address] [facility] Comment on above: Performed By: #### C BC, PT, PTT, BMP ####[place] [address] [address], [place] [phone] MCHC mass conc (RBC) 32.8 g/dL Normal 30.5-36.0 [facility] Comment on above: Performed By: #### C BC, PT, PTT, BMP ####[place] [address] [address], [place] [phone] MCV Entitic volume (RBC) 83.9 fL Normal 80.0-100.[address] [facility] Comment on above: Performed By: #### C BC, PT, PTT, BMP ####[place] [address] [address], [place] [phone] Platelet mean volume Entitic volume (Bld) 10.2 fL Normal 9.0-12.[address] [facility] Comment on above: Performed By: #### C BC, PT, PTT, BMP ####[place] [address] [address], [place] [phone] Platelets #/vol (Bld) 320 10*3/uL Normal 150-400 [facility] Comment on above: Performed By: #### C BC, PT, PTT, BMP ####[place] [address] [address], [place] [phone] RBC #/vol (Bld) 5.66 10*6/uL Normal 4.20-6.00 [facility] Comment on above: Performed By: #### C BC, PT, PTT, BMP ####[place] [address] [address], [place] [phone] WBC #/vol (Bld) 10.64 10*3/uL Normal 3.70-11.00 [facility] Comment on above: Performed By: #### C BC, PT, PTT, BMP ####[facility] [address] [place], [place] [phone] EKG1on 06-08-2018 EKG1 NAME : DENISE LANTIGUA PID : [id number] : 1980 Gender : Male Race : [...] ms QTC Calculation(Bezet) : 422 ms P [place] : 20 degrees R [place] : 21 degrees T [place] : 35 degrees Test Reason : HTN PRE OP Location : 168 : [facility] Overread By : SHAUN VALDERRAMA M.D. Edited By : SHAUN VALDERRAMA M.D. Referred By : LUZ MARIA, Acquired by : Hernandez GOODMAN [facility] HISTORY PHYSICALon 8 HISTORY PHYSICAL HNO ID: [id number] Author: So Juan (Pa) Service: (none) Author Type: Physician Pan Washer Hand Type: HANDP Filed: 06/09/2018 7:05 AM Note [...] Cardiovascular: Positive for: Hypertension, Negative for Recent ID, Angina, Arrhythmia, CAD, Chest Pain, CHF, PVD, [...] 2018 TIME: 1:47 PM PAGER/CONTACT #: Hernandez [facility] PROGRESSon 06-08-2018 Protein mass conc HNO ID: [id number] Author: Ericka (Rt) Shruti Leblanc Service: (none) Author Type: Vp Clinical Type: Progress Notes Filed: 06/08/2018 2:39 PM [...] Yordan June 08, 2018 2:38 PM Normal [facility] Protimeon 06-08-2018 Prothrombin time (PT) Coag time (PPP) 1.1 s Normal 0.9-1.[address] [facility] Comment on above: Result Comment: Kierra min K Antagonist (VKA) Therapeutic Range: INR 2 to 3 (Target INR of 2.5) Note: For patients treated with VKA drugs, such as warfarin, the [place] [employer] 2012 Guideline recommends [...] 2.5 to 3.5 (target INR of 3). Mayito EAST, et al. Chest 2012, 141:7S-47S Ravi PHELPS et al. [facility] 2017, 70: 252-289 Performed By: #### C BC, PT, PTT, BMP ####[facility], [place] [phone] Prothrombin time (PT) Coag time (PPP) 11.1 s Normal 9.7-13.[address] [facility] Comment on above: Performed By: #### C BC, PT, PTT, BMP ####[facility], [place] [phone] Staph aureus PCRon 8 MRSA PCR Negative Normal [facility] Comment on above: Performed By: #### S APCR ####[place] [address] [address], [place] [phone] S aureus Spec Source Nasal Normal [facility] Comment on above: Performed By: #### S APCR ####[place] [address] [address], [place] [phone] Staph aureus PCR Negative Normal [facility] Comment on above: Performed By: #### S APCR ####[place] [address] [address], [place] [phone] Type and SCR (30D)on 018 ABO/RH(D) Positive Normal [facility] Comment on above: Performed By: #### T SCR30 #### [facility] [address] [place] [address] Urinalysison 06-08-2018 Bilirubin, Urine Negative Normal Negative [facility] Comment on above: Performed By: #### U A ####[place] [address] [address], [place] [phone] Clarity Nom (U) Clear Normal Clear [facility] Comment on above: Performed By: #### U A ####[facility], [place] [phone] Color Nom (U) Yellow Normal Yellow [facility] Comment on above: Performed By: #### U A ####[place] [address] [place] [phone] Comments SEE COMMENT Normal [facility] Comment on above: Result Comment: Micr oscopic not warranted Performed By: #### U A ####[place] [address] [address] [place] [phone] Glucose Ql (U) Negative Normal Negative [facility] Comment on above: Performed By: #### U A ####[place] [address] [address] [place] [phone] Hemoglobin/Blood,Ur Negative Normal Negative [facility] Comment on above: Performed By: #### U A ####[place] [phone] Ketones Ql (U) Negative Normal Negative [facility] Comment on above: Performed By: #### U A ####[place] [phone] Leukest Negative Normal Negative [facility] Comment on above: Performed By: #### U A ####[place] [address] [address] [place] [phone] Nitrite Ql (U) Negative Normal Negative [facility] Comment on above: Performed By: #### U A ####[place] [phone] pH (Bld) 7.0 Normal 4.5-8.[address] [facility] Comment on above: Performed By: #### U A ####[place] [phone] Protein mass conc (U) Negative Normal Negative [facility] Comment on above: Performed By: #### U A ####[place] [phone] Specific [place], Ur 1.011 Normal 1.005-1.030 [facility] Comment on above: Performed By: #### U A ####[facility] [address] [place], [place] [phone] Urine Gerard Comment SEE COMMENT Normal [facility] Comment on above: Result Comment: N/A Performed By: #### U A ####[facility] [address] [place], [place] [phone] Urobilinogen Qn (U) Normal Normal Normal [facility] Comment on above: Performed By: #### U A ####[facility] [address] [place], [place] [phone] XR CHEST 2V FRONTAL/LATon XR CHEST 2V [...] silhouette. Other: IMPRESSION: No acute radiographic abnormality. Account Classification Clerk: CHAKA Transcribe Date/Time: Jun 08 2018 2:53P Dictated by : MAY HUTCHINSON MD This examination was interpreted and the report reviewed and electronically signed by: MAY HUTCHINSON MD on Jun 09 2018 7:39AM EST [id number] Normal [facility] CNCOon 05-23-2018 CNCO Letter Text May 23, 2018 Denise Lantigua [address] [place] [address] Dear Mr. Lantigua, Thank you for choosing [facility] for your medical care. To help reduce healthcare costs, it is important for us to collect deductible at the time of service. You are scheduled for services on 06/14/2018. According to your insurance company, you are responsible for a cdeductible of $1000. Please mail your check or money order, payable to [facility] along with the stub below, in the enclosed envelope. If you would like to pay with your credit card, please call [phone] for assistance or pay online at [employer]. Again, thank you for choosing [facility]. Sincerely, Mariana Turcios Patient Mid Level Practitioner Please detach and return in the enclosed envelope. Pay online at [employer] Patient Name: Denise Lantigua EMPI Number: [id number] Date of Service: 06/14/2018 Deductible Due: 1000 Amount Enclosed: $ .__ Please make checks payable to [facility]. Normal [facility] HOSPon 05-19-2018 HOSP Patient:Denise Lantigua MRN: [...] 06/08/2018 51.0 39.0 Progress Notes ([facility] CC): RT Rinku, Tech 06/08/2018 2:39 PM [...] PERIPHERAL IV DATA: Not applicable SIGNED BY: Ana Rose RT RT Rinku June 08, 2018 2:38 PM Progress Notes (NEU FRVW): Laurel Loera MD 05/17/2018 12:19 PM [...] post op restrictions. ? Provided to patient: [facility] Surgery Guide, skin prep supplies, Spine Surgery Pre/post op education packet. Yes. ? Reviewed with patient to report to 1st floor [place] [facility] Yes. ? Reviewed with the patient [...] Comments : Post -op Support family Sarah Ami Loera MD 05/19/2018 2:51 PM Signed SPINE [...] May 19, 2018 TIME: 1:51 PM PAGER: [facility] PROGRESSon 05-19-2018 Protein mass conc HNO ID: [id number] Author: Laurel Littlejohn) Luz Maria Service: (none) [...] by activity. Underwent left L5-S1 discectomy in 2016. Post surgery he was doing well for [...] 19, 2018 TIME: 1:51 PM PAGER: Hernandez [facility] CNOVstephie 05-17-2018 CNOV Office Visit (NSFRVW ) DENISE LANTIGUA ([id number]) 1980 M Date Time Provider Department 05/17/18 11:20 AM LAUREL LOERA)NSFRVW During your visit today, [...] post op restrictions. ? Provided to patient: [facility] Surgery Guide, skin prep supplies, Spine Surgery Pre/post op education packet. Yes. ? Reviewed with patient to report to 1st floor [facility] [facility] Yes. ? Reviewed with the patient [...] by activity. Underwent left L5-S1 discectomy in 2016. Post surgery he was doing well for [...] PM PAGER: Referring Provider: NATALI SCHNEIDER (ALBERTO) [[id number]] Allergies As of Date: 05/17/2018 (No Known [...] better. Visit Notes: >> Sarah Mueller RN [facility] May 18, 2018 4:04 PM Status: Signed Neuro SPINE CARE COORDINATION PRE-OP VISIT ? Met with patient Grzegorz for pre op education. Given both written and verbal instructions re : Skin prep, wound care, pain management and post op restrictions. ? Provided to patient: [facility] Surgery Guide, skin prep supplies, Spine Surgery Pre/post op education packet. Yes. ? Reviewed with patient to report to [facility] floor [facility] Yes. ? Reviewed with the patient [...] Comments : Post -op Support family Sarah Mueller RN Encounter Status:Closed by LAUREL LOERA MD on 05/19/18 [facility] CNOVon 04-26-2018 CNOV Office Visit (SPMECO ) DENISE LANTIGUA ([id number]) 1980 M Date Time Provider Department 04/26/18 10:00 AM NATALI SCHNEIDER (ALBERTO) SPMECO During [...] position. 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 Taking Neurontin 300mg TID, Tramadol [...] today's visit. MATI Rowley, PA-C Referring Provider: SELF [[id number]] Allergies As of Date: 04/26/2018 (No Known Allergies) Date Reviewed: 04/26/2018 Reviewed by: Natali Mayo (Alberto) Jennie - Fully Assessed Reason for Visit: Pain, Back [855] Cmt: Follow up from injection with Dr. Noguera on 03/14 for L5 S1 Reason For Visit History Recorded Primary Visit Diagnosis:Radiculopathy , lumbar region [M54.16] Other Visit Diagnoses:Lumbar disc herniation [M51.26] Degeneration of lumbar intervertebral disc [M51.36] Postoperative infection, subsequent encounter [T81.4XXD] Imbalance [R26.89] Order(s):CONSULT TO SPINE SURGERY [[id number]] Order #: [id number]: 1 Prescriptions as of 04/26/2018 Sig: GABAPENTIN [...] Encounter Status:Closed by NATALI SCHNEIDER on 04/26/18 [facility] PROGRESSon 04-26-2018 Protein mass conc HNO ID: [id number] Author: Natali Mayo (Alberto) Jennie Service: (none) Author Type: Physician Pan Washer Hand Type: Progress Notes Filed: 04/26/2018 12:12 PM [...] position. 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 Taking Neurontin 300mg TID, Tramadol [...] patients satisfaction during today's visit. MATI Rowley, PAMadelyn Normal [facility] HISTORY PHYSICALon 8 HISTORY PHYSICAL HNO ID: [id number] Author: Karissa Noguera Service: OUTPATIENT IN BED [...] Lantigua DATE: 03/14/2018 TIME: 2:43 PM PAGER: [phone] [facility] OPERATIVE NOon 03-14-2018 OPERATIVE NO HNO ID: [id number] Author: Karissa Noguera Service: Physical Medicine AND Rehabilitation Author Type: Physician Type: Operative Report Filed: 03/14/2018 4:26 PM Note Text: OPERATIVE/PROCEDURE REPORT LOG ID: [id number] Surgery/Procedure Date: 03/14/2018 Incision/Procedure Start Time: 4:02 PM Incision Close/Procedure End Time: 4:20 PM Surgeon(s)/Proceduralis t(s) and Pan Washer Hand(s): Surgeon(s) and Role: * Karissa Noguera - Primary * Lolly (Res) Reggie - Resident - Assisting * Cora (Res) MD Avel - Resident - Assisting No Additional Staff [...] 14, 2018 TIME: 4:21 PM PAGER/CONTACT #: [phone] [facility] PT EDon 03-14-2018 PT ED HNO ID: [id number] Author: Ana (Rn) NUBIA Nam Service: (none) Author Type: Registered Nurse Type: [...] Ana Nam RN In Department: AMBULATORY SURGERY [facility] PT ED HNO ID: [id number] Author: May (Rn) NUBIA Munoz Service: (none) Author Type: Registered [...] May Munoz RN In Department: AMBULATORY SURGERY [facility] CNOVon 02-21-2018 CNOV Office Visit (SPMECO ) GRZEGORZ,DENISE Kirk ([id number]) 1980 M Date Time Provider Department 02/21/18 10:00 AM NATALI SCHNEIDER) SPMECO During your visit today, we recorded the following information about you: Temperature Pulse Respiration Blood pressure 99.8 degrees 79/minute 16/minute 132/90 Weight 70.5 kg Natali Schneider PA-C 03/07/2018 3:42 PM Signed SPINE CARE PATH LOW BACK PAIN: CHRONIC FOLLOW UP SUBJECTIVE HISTORY OF PRESENT ILLNESS: Reason for Visit: bruno Kirk Grzegorz is seen for 1 month [...] patients satisfaction during today's visit. MATI Rowley, PRASHANTHC Referring Provider: NATALI SCHNEIDER (ALBERTO) [[id number]] Allergies As of Date: 02/21/2018 (No Known Allergies) Date Reviewed: 02/21/2018 Reviewed by: Carmen (Kendra) KENDRA Astorga - Fully Assessed Reason for Visit: Follow Up [171] Primary Visit Diagnosis:Radiculopathy , lumbar region [M54.16] Other Visit Diagnoses:Lumbar disc herniation [M51.26] Degeneration of lumbar intervertebral disc [M51.36] Order(s):CONSULT TO SPINE INTERVENTION [[id number]] Order #: [id number]: 1 Prescriptions as of 02/21/2018 Sig: AMLODIPINE [...] 15 MG TABLET >> Carmen Astorga LPN, LPN 02/21/2018 10:22 AM >> CARMEN ASTORGA February 21, 2018 10:22 AM Not taking Problem List As Of Date 02/21/2018 Noted Resolved Radiculopathy, lumbar region [M54.16] INVALID FOR* More... Lumbar disc herniation [M51.26] INVALID FOR* More... Degeneration of lumbar intervertebral disc [M51*INVALID FOR* More... Encounter Status:Closed by NATALI SCHNEIDER on 03/07/18 [facility] HOSPon 02-21-2018 HOSP Patient:Denise Lantigua MRN: Height:5' 9 [...] the following basenames: K,HCT Progress Notes (SPINE [facility]): Natali Schneider PA-C 03/07/2018 3:42 PM Signed [...] plan to patients satisfaction during today's visit. Natali Schneider, MATI, DK Previous Version Normal [facility] PROGRESSon 02-21-2018 Protein mass conc HNO ID: [id number] Author: Natali Schneider (Pa) Service: (none) Author Type: Physician Pan Washer Hand Type: Progress Notes Filed: 03/07/2018 3:42 PM [...] satisfaction during today's visit. MATI Rowley, PA-C Normal [facility] MR-MR lumbar spine wo con IM Gray 02-14-2018 MR-MR lumbar spine wo con IMPORT Images were obtained outside of [facility] [id number] Normal [facility] Heydi 02-06-2018 CNPN Telephone (ORQ) DENISE LANTIGUA ([id number]) 1980 M Date Time Provider Department 02/06/18 NATALI SCHNEIDER (ALBERTO) ORQ During your visit today, we recorded the following information about you: Dai Wheatley PSR 02/06/2018 3:05 PM Signed Pt called and said that you wanted an MRI but it was denied. Pt can be reached @ [phone] Thanks Dai Wheatley PSR Natali Schneider PA-C 02/07/2018 10:42 AM Signed Peer to Peer completed, approved. # [id number] Please inform pt and have him go for his L spine MRI and then f/u. MATI Hollis, DK [facility] Multi Specialty/Spine Medicine [address], [address] [place] [address] Nathalia A Karen Psr 02/07/2018 11:14 AM Signed Called patient and have him this message. He will call to schedule a follow up after he has his MRI. Thank you! Allergies As of Date: 02/06/2018 (No Known Allergies) Date Reviewed: 01/17/2018 Reviewed by: Natali Mayo (Nicholas Schneider - Fully Assessed Reason for Visit: Radio Imaging Study Comments [3574] Prescriptions as of 02/06/2018 Sig: AMLODIPINE 5 [...] Status:Closed by NATALI SCHNEIDER on 02/07/[address] [facility] C-Reactive Proteinon 018 CRP mass conc 1.7 mg/dL High <0.[address] [facility] Comment on above: Performed By: #### C BCDIF, WSR, CRP #### [facility] [employer] [address] [place], [place] [address] CBC and Differentialon 01-17 Abs Baso 0.13 k/uL High <0.[address] [facility] Comment on above: Performed By: #### C BCDIF, WSR, CRP #### [facility] [employer] [address] [place] [address] Abs [place] 0.52 k/uL Normal <0.[address] [facility] Comment on above: Performed By: #### C BCDIF, WSR, CRP #### [place] [address] [place] [address] Abs Neut 5.47 k/uL Normal 1.45-7.[address] [facility] Comment on above: Performed By: #### C BCDIF, WSR, CRP #### [place] [phone] Absolute nRBC <0.01 Normal <0.[address] [facility] Comment on above: Performed By: #### C BCDIF, WSR, CRP #### [place] [phone] Basophils/100 WBC (Bld) 1.5 % Normal [facility] Comment on above: Performed By: #### C BCDIF, WSR, CRP #### [place] [phone] DTYPE Auto Diff Normal [facility] Comment on above: Performed By: #### C BCDIF, WSR, CRP #### [place] [phone] Eosinophils #/vol (Bld) 0.10 10*3/uL Normal <0.[address] [facility] Comment on above: Performed By: #### C BCDIF, WSR, CRP #### [place] [address] Eosinophils/100 WBC (Bld) 1.2 % Normal [facility] Comment on above: Performed By: #### C BCDIF, WSR, CRP #### [place] [phone] Erythrocyte distribution width Ratio (RBC) 13.9 % Normal 11.5-15.[address] [facility] Comment on above: Performed By: #### C BCDIF, WSR, CRP #### [place] [address] [place] [address] Hematocrit Volume Fraction (Bld) 42.8 % Normal 39.0-51.[address] [facility] Comment on above: Performed By: #### C BCDIF, WSR, CRP #### [place] [address] Hemoglobin mass conc (Bld) 14.2 g/dL Normal 13.0-17.[address] [facility] Comment on above: Performed By: #### C BCDIF, WSR, CRP #### [place] [address] Lymphocytes #/vol (Bld) 2.34 10*3/uL Normal 1.00-4.[address] [facility] Comment on above: Performed By: #### C BCDIF, WSR, CRP #### [place] [address] Lymphocytes/100 WBC (Bld) 27.3 % Normal [facility] Comment on above: Performed By: #### C BCDIF, WSR, CRP #### [place] [address] MCH Entitic mass (RBC) 28.2 pG Normal 26.0-34.[address] [facility] Comment on above: Performed By: #### C BCDIF, WSR, CRP #### [place] [address] MCHC mass conc (RBC) 33.2 g/dL Normal 30.5-36.0 [facility] Comment on above: Performed By: #### C BCDIF, WSR, CRP #### [place] [address] MCV Entitic volume (RBC) 85.1 fL Normal 80.0-100.[address] [facility] Comment on above: Performed By: #### C BCDIF, WSR, CRP #### [place] [address] [place], [place] [address] Monocytes/100 WBC (Bld) 6.1 % Normal [facility] Comment on above: Performed By: #### C BCDIF, WSR, CRP #### [place] [address] [place], [place] [address] Neutrophils/100 WBC (Bld) 63.9 % Normal [facility] Comment on above: Performed By: #### C BCDIF, WSR, CRP #### [address] [address] NRBCs 0.0 /100 WBC Normal [address] [facility] Comment on above: Performed By: #### C BCDIF, WSR, CRP #### [place] [address] Platelet mean volume Entitic volume (Bld) 9.7 fL Normal 9.0-12.[address] [facility] Comment on above: Performed By: #### C BCDIF, WSR, CRP #### [place] [address] [place], [place] [address] Platelets #/vol (Bld) 397 10*3/uL Normal 150-400 [facility] Comment on above: Performed By: #### C BCDIF, WSR, CRP #### [place] [address] [place], [place] [address] RBC #/vol (Bld) 5.03 10*6/uL Normal 4.20-6.00 [facility] Comment on above: Performed By: #### C BCDIF, WSR, CRP #### [place] [id number] WBC #/vol (Bld) 8.58 10*3/uL Normal 3.70-11.00 [facility] Comment on above: Performed By: #### C BCDIF, WSR, CRP #### [facility] [address] [place], [place] [address] CNOVon 01-17-2018 CNOV Office Visit (SPMECO ) DENISE LANTIGUA ([id number]) 1980 M Date Time Provider Department 01/17/18 9:20 AM NATALI SCHNEIDER) SPMECO During your visit today, we recorded the following information about you: Temperature Pulse Blood pressure Weight 98.3 degrees 72/minute 126/87 71.7 kg Height 1.753 m Natali Schneider PA-C 01/17/2018 10:58 AM Signed Spine Care Path Low Back Pain - Chronic (ANDgt; 12 weeks) Initial Exam SUBJECTIVE HISTORY OF PRESENT ILLNESS: Denise Reagan ThompsonGrzegorz is a 37 year old male who [...] LBP/LLE radicular pain surgery laminectomy 11/2016 in [facility] The pain has been [...] position. 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 Taking Neurontin 300mg TID, Tramadol [...] OTHER NOTICEABLE FINDINGS: healed linear scar, laminectomy 2016 RADIOGRAPHY: Reports and films reviewed with patient. [...] forwarded to consulting/requesting physician. MATI Hollis PA-C [facility] Multi Specialty/Spine Medicine [address], [address] [place] [address] Referring Provider: KATIE SALGUERO [[id number]] Allergies As of Date: 01/17/2018 (No Known Allergies) Date Reviewed: 01/17/2018 Reviewed by: Natali Schneider (Pa) - Fully Assessed Reason for Visit: New Patient [172] Low Back Pain [126] Cmt: [id number], crushing/sharp 05/19 Reason For Visit History Recorded Primary Visit Diagnosis:Radiculopathy , lumbar region [M54.16] Other Visit Diagnoses:Low back pain, non-specific [M54.5] Imbalance [R26.89] Postoperative infection, subsequent encounter [T81.4XXD] Order(s):XR LUMBAR GENERAL 3V AP/LAT/L5-S1 [[id number]] Order #: [id number] FUTURE XR KNEE LIMITED 2V AP/LAT LT [[id number]] Order #: [id number] FUTURE MRI LUMBAR SPINE WO IVCON [[id number]] Order #: [id number] FUTURE SED RATE WESTERGREN [SQWSR] Order #: [id number] FUTURE C-REACTIVE PROTEIN (CRP) [SQCRP] Order #: [id number] FUTURE CBC + DIFF [SQCBCDIF] Order #: [id number] FUTURE meloxicam (MOBIC) 15 mg tabletTake 1 tablet by mouth once daily. WITH FOODDisp: 30 tabletRfl: 1 CONSULT TO RHEUM/IMMUN DISEASE [9039] Order #: [id number]: 1 Prescriptions as of 01/17/2018 Sig: AMITRIPTYLINE [...] Status:Closed by NATALI SCHNEIDER on 01/17/[address] [facility] PROGRESSon 01-17-2018 Protein mass conc HNO ID: [id number] Author: Duyen (Rt) Shruti Nash Service: (none) Author Type: Vp Clinical Type: Progress Notes Filed: 01/17/2018 11:12 AM [...] PERIPHERAL IV DATA: Not applicable SIGNED BY: Duyen Nash, January 17, 2018 11:04 AM Normal [facility] Protein mass conc HNO ID: [id number] Author: Natali Mayo (Alberto) Jennie Service: (none) Author Type: Physician Pan Washer Hand Type: Progress Notes Filed: 01/17/2018 10:58 AM [...] LBP/LLE radicular pain surgery laminectomy 11/2016 in [facility] The pain has been [...] planning. SIGNATURE: Natali Schneider PA-C PATIENT NAME: Densie Lantigua DATE: January 17, 2018 TIME: 9:40 [...] position. 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 PHYSICAL EXAM: GENERAL [...] be forwarded to consulting/requesting physician. MATI Hollis, PABenjiC [facility] Multi Specialty/Spine Medicine [address], [address] [place] [address] [facility] Sed Rate Westergrenon 2017 Sed Rate Westergren 22 mm/hr High 0-15 [facility] Comment on above: Performed By: #### C BCDIF, WSR, CRP #### [facility] [address] [place] [address] XR KNEE 2V AP/LAT LTon 01-17 XR [...] NO ACUTE OSSEOUS ABNORMALITY OTHER FINDINGS DESCRIBED Account Classification Clerk: CHAKA Transcribe Date/Time: Jan 17 2018 11:21A Dictated by : MARLY WHEAT MD This examination was interpreted and the report reviewed and electronically signed by: MARLY WHEAT MD on Jan 17 2018 11:24AM EST [id number] Normal [facility] XR LUMBAR 3V AP/LAT/L5-S1on 01-17-2018 XR [...] space is labeled L5-S1 for this examination. Mzqu-va-mnvxmwjp disc height narrowing at L5-S1. Vertebral body heights, disc heights and alignment otherwise normal. No fractures. Normal soft tissues. No other significant abnormality. IMPRESSION: DEGENERATIVE CHANGES AT L5-S1 Account Classification Clerk: CHAKA Transcribe Date/Time: Jan 17 2018 11:20A Dictated by : MARLY WHEAT MD This examination was interpreted and the report reviewed and electronically signed by: MARLY WHEAT MD on Jan 17 2018 11:21AM EST [id number] Normal [facility] Vital Signs Date Time Vital Sign Value Performing Clinician Gerardi malvin 07-23-2024 14:45-0400 Body height 175.3 cm Mable Strickland [employer] MILK RECEIVER Work Phone: [facility] 07-23-2024 14:45-0400 Diastolic blood pressure 91 mm[Hg] Mable Strickland [employer] TR[employer] MILK RECEIVER Work Phone: [facility] 07-23-2024 14:45-0400 Heart rate 74 /min Mable Strickland T[employer] TR[employer] MILK RECEIVER Work Phone: [facility] 07-23-2024 14:45-0400 SaO2% (BldA) [Mass fraction] 98 % Malbe Strickland TANK TR[employer] MILK RECEIVER Work Phone: [facility] 07-23-2024 14:45-0400 Systolic blood pressure 142 mm[Hg] Mable Osmel COREAS Work Phone: [facility] 07-18-2024 10:46-0400 Diastolic blood pressure 100 mm[Hg] Regina Amador [facility] 07-18-2024 10:46-0400 Heart rate 70 /min Regina Amador [facility] 07-18-2024 10:46-0400 Mean blood pressure 116 mm[Hg] Regina [place] [facility] 07-18-2024 10:46-0400 Respiratory rate 20 /min Regina [facility] 07-18-2024 10:46-0400 Systolic blood pressure 149 mm[Hg] Regina Amador [facility] 05-10-2024 13:29-0400 Diastolic blood pressure 111 mm[Hg] Ezequile Vogel [facility] 05-10-2024 13:29-0400 Heart rate 68 /min Ezequiel Vogel [facility] 05-10-2024 13:29-0400 Mean blood pressure 120 mm[Hg] Ezequiel Vogel [facility] 05-10-2024 13:29-0400 Respiratory rate 16 /min Ezequiel Vogel [facility] 05-10-2024 13:29-0400 Systolic blood pressure 138 mm[Hg] Ezequiel Vogel [facility] 12-09-2023 14:00-0500 Hourly Rounding Ronobir MEAGAN [facility] 12-09-2023 14:00-0500 Mean blood pressure 118 mm[Hg] Ronobir MEAGAN [facility] 12-09-2023 14:00-0500 Promise to Return Ronobir MEAGAN [facility] 12-09-2023 13:00-0500 Hourly Rounding Ronobir MEAGAN [facility] 12-09-2023 13:00-0500 Promise to Return Ronobir MEAGAN [facility] 12-09-2023 12:19-0500 Heart rate 64 /min Ronobir MEAGAN [facility] 12-09-2023 12:19-0500 SaO2% (BldA) [Mass fraction] 96 % Ronobir MEAGAN [facility] 12-09-2023 12:18-0500 Diastolic blood pressure 63 mm[Hg] Ronobir MEAGAN [facility] 12-09-2023 12:18-0500 Mean blood pressure 74 mm[Hg] Ronobir MEAGAN [facility] 12-09-2023 12:18-0500 Systolic blood pressure 97 mm[Hg] Ronobir MEAGAN [facility] 12-09-2023 12:17-0500 Body temperature 97.88 [degF] Ronobir MEAGAN [facility] 12-09-2023 12:00-0500 Hourly Rounding Ronobir MEAGAN [facility] 12-09-2023 12:00-0500 Promise to Return Ronobir MEAGAN [facility] 12-09-2023 08:01-0500 Heart rate 65 /min Ronobir MEAGAN [facility] 12-09-2023 08:01-0500 SaO2% (BldA) [Mass fraction] 98 % Ronobir MEAGAN [facility] 12-09-2023 08:00-0500 Body temperature 97.52 [degF] Ronobir MEAGAN [facility] 12-09-2023 08:00-0500 Diastolic blood pressure 101 mm[Hg] Ronobir MEAGAN [facility] 12-09-2023 08:00-0500 Mean blood pressure 115 mm[Hg] Ronobir MEAGAN [facility] 12-09-2023 08:00-0500 Systolic blood pressure 142 mm[Hg] Ronobir MEAGAN [facility] 12-09-2023 07:37-0500 SaO2% (BldA) [Mass fraction] 98 % Ronobir MEAGAN [facility] 12-09-2023 04:52-0500 Body temperature 98.06 [degF] Ronobir MEAGAN [facility] 12-09-2023 04:52-0500 Diastolic blood pressure 94 mm[Hg] Ronobir MEAGAN [facility] 12-09-2023 04:52-0500 Heart rate 63 /min Ronobir MEAGAN [facility] 12-09-2023 04:52-0500 Systolic blood pressure 135 mm[Hg] Ronobir MEAGAN [facility] 12-09-2023 02:42-0500 Blood Pressure Location Ronobir MEAGAN [facility] 12-09-2023 02:42-0500 Heart rate 74 /min Ronobir MEAGAN [facility] 12-09-2023 02:42-0500 Respiratory rate 18 /min Ronobir MEAGAN [facility] 12-09-2023 01:30-0500 Mean blood pressure 111 mm[Hg] Ronobir MEAGAN [facility] 12-09-2023 01:30-0500 Respiratory rate 18 /min Ronobir MEAGAN [facility] 12-09-2023 01:26-0500 Mean blood pressure 114 mm[Hg] Ronobir MEAGAN [facility] 12-09-2023 01:26-0500 Respiratory rate 16 /min Ronobir MEAGAN [facility] 12-09-2023 00:56-0500 Heart rate 79 /min Ronobir MEAGAN [facility] 12-09-2023 00:56-0500 Respiratory rate 19 /min Ronobir MEAGAN [facility] 09-29-2023 15:07-0500 Diastolic blood pressure 82 mm[Hg] Denise Pérezofferson [facility] 09-29-2023 15:07-0500 Heart rate 84 /min Denise Betoofferson [facility] 09-29-2023 15:07-0500 SaO2% (BldA) [Mass fraction] 94 % Denise Christofferson [facility] 09-29-2023 15:07-0500 Systolic blood pressure 112 mm[Hg] Denise Christofferson [facility] 08-31-2023 10:06-0500 Hourly Rounding Durga Paster [facility] 08-31-2023 10:06-0500 Promise to Return Durga Paster [facility] 08-31-2023 09:36-0500 Hourly Rounding Durga Paster [facility] 08-31-2023 09:36-0500 Promise to Return Durga Paster [facility] 08-31-2023 09:31-0500 SaO2% (BldA) [Mass fraction] 96 % Durga Paster [facility] 08-31-2023 08:13-0500 Hourly Rounding Durga Paster [facility] 08-31-2023 08:13-0500 Promise to Return Durga Paster [facility] 08-31-2023 07:34-0500 Heart rate 80 /min Durga Paster [facility] 08-31-2023 07:34-0500 SaO2% (BldA) [Mass fraction] 96 % Durga Paster [facility] 08-31-2023 07:33-0500 Diastolic blood pressure 96 mm[Hg] Durga Paster [facility] 08-31-2023 07:33-0500 Mean blood pressure 110 mm[Hg] Durga Paster [facility] 08-31-2023 07:33-0500 Systolic blood pressure 138 mm[Hg] Durga Paster [facility] 08-31-2023 07:00-0500 Body temperature 98.24 [degF] Durga Paster [facility] 08-30-2023 23:43-0500 Body temperature 98.6 [degF] Durga Paster [facility] 08-30-2023 23:43-0500 Diastolic blood pressure 84 mm[Hg] Durga Paster [facility] 08-30-2023 23:43-0500 Heart rate 80 /min Durga Paster [facility] 08-30-2023 23:43-0500 Respiratory rate 16 /min Durga Paster [facility] 08-30-2023 23:43-0500 SaO2% (BldA) [Mass fraction] 96 % Durga Paster [facility] 08-30-2023 23:43-0500 Systolic blood pressure 118 mm[Hg] Durga Paster [facility] 08-30-2023 21:00-0500 Diastolic blood pressure 93 mm[Hg] Durga Paster [facility] 08-30-2023 21:00-0500 Heart rate 88 /min Durga Paster [facility] 08-30-2023 21:00-0500 Systolic blood pressure 134 mm[Hg] Durga Paster [facility] 08-30-2023 19:15-0500 Mean blood pressure 95 mm[Hg] Durga Paster [facility] 08-30-2023 15:35-0500 Body temperature 97.88 [degF] Durga Paster [facility] 08-30-2023 15:35-0500 Mean blood pressure 108 mm[Hg] Durga Paster [facility] 08-30-2023 11:00-0500 Body temperature 97.34 [degF] Durga Paster [facility] 08-30-2023 00:58-0500 Body temperature 97.52 [degF] Durga Paster [facility] 08-29-2023 22:15-0500 Mean blood pressure 132 mm[Hg] Durga Paster [facility] 08-29-2023 22:15-0500 Respiratory rate 15 /min Durga Paster [facility] 08-29-2023 21:26-0500 Mean blood pressure 136 mm[Hg] Durga Paster [facility] 08-29-2023 21:26-0500 Respiratory rate 8 /min Durga Paster [facility] 08-29-2023 21:00-0500 Respiratory rate 10 /min Durga Paster [facility] 08-29-2023 20:35-0500 Mean blood pressure 135 mm[Hg] Durga Paster [facility] 08-29-2023 18:52-0500 Blood Pressure Location Durga Paster [facility] 08-29-2023 18:52-0500 Heart rate 92 /min Durga Paster [facility] 08-29-2023 18:52-0500 Respiratory rate 18 /min Durga Paster [facility] 08-29-2023 16:26-0500 Heart rate 80 /min Durga Paster [facility] 08-29-2023 16:26-0500 Respiratory rate 24 /min Durga Paster [facility] 10-19-2022 15:20-0500 Body height 175.26 cm Geovany Valle Other [employer] Other 10-19-2022 15:20-0500 Body mass index (BMI) [Ratio] 24.3 kg/m2 Geovany Valle Other [employer] Other 10-19-2022 15:20-0500 Body weight 74.66 kg Geovany Valle Other [employer] Other 10-19-2022 15:20-0500 Diastolic blood pressure 112 mm[Hg] Geovany Valle Other [facility] [employer] Other 10-19-2022 15:20-0500 Systolic blood pressure 148 mm[Hg] Geovany Valle Other [facility] Other 08-17-2022 09:04-0500 Diastolic blood pressure 101 mm[Hg] DO Katie Salguero Work Phone: [facility] 08-17-2022 09:04-0500 Heart rate 80 /min DO Katie Salguero Work Phone: [facility] 08-17-2022 09:04-0500 Respiratory rate 16 /min DO Katie Salguero Work Phone: [facility] 08-17-2022 09:04-0500 SaO2% (BldA) [Mass fraction] 97 % DO Katie Salguero Work Phone: [facility] 08-17-2022 09:04-0500 Systolic blood pressure 136 mm[Hg] DO Katie Salguero Work Phone: [facility] 08-17-2022 08:21-0500 Inhaled oxygen flow rate 3 L/min DO Katie Salguero Work Phone: [facility] 08-17-2022 06:46-0500 Body height 175.26 cm DO Katie Salguero Work Phone: [facility] 08-17-2022 06:46-0500 Body weight 72.57 kg DO Katie Noemy Work Phone: [facility] 05-18-2022 09:58-0400 Diastolic blood pressure 106 mm[Hg] Carmen Severino [facility] 05-18-2022 09:58-0400 Heart rate 77 /min Carmen Severino [facility] 05-18-2022 09:58-0400 Mean blood pressure 126 mm[Hg] Carmen Severino [facility] 05-18-2022 09:58-0400 Respiratory rate 12 /min Carmen Severino [facility] 05-18-2022 09:58-0400 Systolic blood pressure 165 mm[Hg] Carmen Severino [facility] 05-10-2022 10:00-0400 Body height 175.26 cm Shaquille Remy Other [employer] Other 05-10-2022 10:00-0400 Body mass index (BMI) [Ratio] 24.66 kg/m2 Shaquille Remy Other [employer] Other 05-10-2022 10:00-0400 Body weight 75.75 kg Shaquille Remy Other [employer] Other 03-09-2022 14:31-0400 Diastolic blood pressure 86 mm[Hg] Carmen Severino [facility] 03-09-2022 14:31-0400 Heart rate 87 /min Carmen Severino [facility] 03-09-2022 14:31-0400 Mean blood pressure 98 mm[Hg] Carmen Severino [facility] 03-09-2022 14:31-0400 Respiratory rate 14 /min Carmen Severino [facility] 03-09-2022 14:31-0400 Systolic blood pressure 122 mm[Hg] Carmen Severino [facility] 02-11-2022 14:40-0400 Blood Pressure Location Denise Welch [facility] 02-11-2022 14:40-0400 Diastolic blood pressure 78 mm[Hg] Denise Welch [facility] 02-11-2022 14:40-0400 Heart rate 83 /min Denise Welch [facility] 02-11-2022 14:40-0400 Respiratory rate 18 /min Denise Welch [facility] 02-11-2022 14:40-0400 SaO2% (BldA) [Mass fraction] 100 % Denise Welch [facility] 02-11-2022 14:40-0400 Systolic blood pressure 105 mm[Hg] Denise Welch [facility] 02-11-2022 10:45-0400 Body height 175.26 cm Shaquille Felter Other [employer] Other 02-11-2022 10:45-0400 Body mass index (BMI) [Ratio] 24.66 kg/m2 Shaquille Felter Other [employer] Other 02-11-2022 10:45-0400 Body weight 75.75 kg Shaquille Felter Other [employer] Other 01-12-2022 15:30-0400 Body height 175.26 cm Shaquille Felter Other [employer] Other 01-12-2022 15:30-0400 Body mass index (BMI) [Ratio] 25.1 kg/m2 Shaquille Felter Other [employer] Other 01-12-2022 15:30-0400 Body weight 77.11 kg Shaquille Felter Other [employer] Other 12-15-2021 14:30-0500 Body height 175.26 cm Shaquille Felter Other [employer] Other 12-15-2021 14:30-0500 Body mass index (BMI) [Ratio] 25.25 kg/m2 Shaquille Felter Other [employer] Other 12-15-2021 14:30-0500 Body weight 77.57 kg Shaquille Felter Other [employer] Other 11-17-2021 14:45-0500 Body height 175.26 cm Shaquille Felter Other [employer] Other 11-17-2021 14:45-0500 Body mass index (BMI) [Ratio] 25.25 kg/m2 Shaquille Felter Other [employer] Other 11-17-2021 14:45-0500 Body weight 77.57 kg Shaquille Felter Other [employer] Other 07-16-2021 09:15-0400 Body height 175.26 cm Shaquille Felter Other [employer] Other 07-16-2021 09:15-0400 Body mass index (BMI) [Ratio] 25.25 kg/m2 Shaquille Felter Other [employer] Other 07-16-2021 09:15-0400 Body weight 77.57 kg Shaquille Felter Other [employer] Other Encounters Encounter Date Encounter Type Care Provider Facility Start: 03-07-2025 End: 03-07-2025 ambulatory BELL [facility] Start: 01-21-2025 End: 01-21-2025 ambulatory KATIE SALGUERO Not Available Start: 12-17-2024 End: 12-17-[address] [facility] Start: 07-23-2024 End: 07-23-2024 Office outpatient visit 25 minutes Mable Strickland NP Work Phone: [facility] Comment on above: Failed back surgical syndrome (Primary Dx); Coronary artery disease involving [place] coronary artery of [place] heart without angina pectoris (CMS/HCC); Colon cancer screening; Chronic pain syndrome; Recurrent major depressive disorder, in partial remission (HCC) (CMS/HCC); Primary hypertension (CMS/HCC) Start: 07-23-2024 End: 07-23-2024 ambulatory MABLE STRICKLAND Not Available Start: 07-18-2024 End: 07-18-2024 ambulatory SHAQUILLE REMY Facility:[facility] Start: 07-11-2024 End: 07-18-2024 Patient encounter procedure Regina Amador [facility] Start: 06-28-2024 End: 06-28-2024 Telephone encounter Mable Strickland NP Work Phone: [facility] Start: 06-15-2024 End: 06-15-2024 ambulatory [facility] Start: 05-24-2024 End: 05-24-2024 ambulatory [facility] Start: 05-10-2024 End: 05-10-2024 ambulatory SHAQUILLE REMY Facility:[facility] Start: 05-10-2024 End: 05-10-2024 Pain Management Ezequiel Vogel [facility] Start: 05-04-2024 End: 05-04-2024 ambulatory [facility] Start: 04-25-2024 End: 04-25-2024 ambulatory [facility] Start: 04-18-2024 End: 04-18-2024 ambulatory [facility] Work Phone: Start: 04-18-2024 End: 04-18-2024 Patient encounter procedure [facility] Work Phone: Start: 04-06-2024 ambulatory ISADORA TOWNSEND [facility] Start: 03-21-2024 End: 03-21-2024 ambulatory MABLE STRICKLAND Not Available Start: 03-19-2024 End: 03-19-2024 ambulatory [facility] Work Phone: Start: 03-19-2024 End: 03-19-2024 Patient encounter procedure [facility] Work Phone: Start: 02-16-2024 End: 02-16-2024 ambulatory [facility] Work Phone: Start: 02-16-2024 End: 02-16-2024 Patient encounter procedure [facility] Work Phone: Start: 02-08-2024 End: 02-08-2024 ambulatory KATIE SALGUERO Not Available Start: 02-01-2024 End: 02-01-2024 ambulatory KARISSA CAMPBELL Not Available Start: 01-27-2024 End: 01-27-2024 ambulatory MD Abhi Guerra Facility:[facility] Start: 01-27-2024 End: 01-27-2024 Patient encounter procedure Abhi Guerra [facility] Start: 01-26-2024 End: 01-26-2024 ambulatory YUERONG ROZ Not Available Start: 01-24-2024 End: 01-24-2024 ambulatory YUERONG ROZ Not Available Start: 01-19-2024 End: 01-19-2024 ambulatory [facility] Work Phone: Start: 01-19-2024 End: 01-19-2024 Patient encounter procedure [facility] Work Phone: Start: 12-21-2023 End: 12-21-2023 Patient encounter procedure [facility] Work Phone: Start: 12-09-2023 End: 12-09-2023 ambulatory DO Dora RHODES Facility:[facility] Start: 12-09-2023 End: 12-09-2023 Emergency department patient visit Dora RHODES [facility] Start: 11-21-2023 End: 11-21-2023 ambulatory Shaquille Remy Other [employer] Other Start: 11-21-2023 Office outpatient vi sit 25 minutes Shaquille Remy [facility] [place] Start: 11-21-2023 Telephone encounter [facility] Start: 11-18-2023 End: 11-18-2023 ambulatory Denise Welch Facility:[facility] Start: 11-18-2023 End: 11-18-2023 Patient encounter procedure Denise Welch [facility] Start: 11-03-2023 End: 11-03-2023 ambulatory Treytiffanie Carranza Facility: [facility] Start: 10-26-2023 ambulatory Denise Welch Fac ility:[facility] [place] Start: 10-20-2023 End: 10-20-2023 ambulatory [facility] Other Start: 10-20-2023 Office outpatient vi sit 25 minutes Shaquille Remy [facility] [place] Start: 10-20-2023 Telephone encounter [facility] Start: 09-29-2023 End: 09-29-2023 ambulatory Denise Welch Facility:[facility] Start: 09-29-2023 End: 09-29-2023 Patient encounter procedure Denise Welch [facility] Start: 09-22-2023 End: 09-22-2023 ambulatory Shaquille Remy Other [employer] Other Start: 09-22-2023 Office outpatient vi sit 25 minutes Shaquille Remy [facility] [place] Start: 09-22-2023 Telephone encounter [facility] Start: 08-29-2023 End: 08-31-2023 Evaluation and management of inpatient uDrga Thompson Facility:[facility] Start: 08-29-2023 End: 08-31-2023 Evaluation and management of inpatient Durga Thompson [facility] Start: 08-25-2023 End: 08-25-2023 ambulatory Shaquille Remy Other [employer] Other Start: 08-25-2023 Office outpatient vi sit 25 minutes Shaquille Remy [facility] [place] Start: 08-25-2023 Telephone encounter Shaquille DA SILVA [facility] [place] Start: 07-28-2023 End: 07-28-2023 ambulatory Shaquille Remy Other [employer] Other Start: 07-28-2023 Office outpatient vi sit 25 minutes Shaquille Remy [facility] [place] Start: 07-28-2023 Telephone encounter Shaquille Remy [facility] [place] Start: 06-30-2023 End: 06-30-2023 ambulatory Shaquille Remy Other [employer] Other Start: 06-30-2023 Office outpatient vi sit 25 minutes Shaquille Duarteer [facility] [place] Start: 06-30-2023 Telephone encounter Shaquille Remy [facility] [place] Start: 05-31-2023 End: 05-31-2023 Patient encounter procedure DO Katie Salguero Work Phone: [facility] Start: 05-31-2023 End: 05-31-2023 ambulatory Katie Leonkatarzynamely [facility] Work Phone: Start: 05-31-2023 Office outpatient vi sit 25 minutes Shaquille Remy [facility] [place] Start: 05-31-2023 Telephone encounter Shaquille DA SILVA [facility] [place] Start: 04-11-2023 End: 04-11-2023 ambulatory Shaquille Duarteshantal Other [employer] Other Start: 04-11-2023 Telephone encounter Shaquille Duarteshantal [facility] [place] Start: 04-05-2023 End: 04-05-2023 ambulatory Shaquille Duarteshantal Other [employer] Other Start: 04-05-2023 Telephone encounter Shaquille DA SILVA [facility] [place] Start: 03-31-2023 End: 03-31-2023 ambulatory Shaquille Geraldshantal Other [employer] Other Start: 03-31-2023 Office outpatient vi sit 25 minutes Shaquille Remy [facility] [place] Start: 03-31-2023 Telephone encounter Shaquille DA SILVA [facility] Start: 02-03-2023 End: 02-03-2023 ambulatory Shaquille Geraldshantal Other [employer] Other Start: 02-03-2023 Telephone encounter Shaquille DA SILVA [facility] Start: 01-25-2023 End: 01-25-2023 ambulatory Thien POWER Facility:[id number] Start: 01-19-2023 ambulatory Thien POWER Facility:[id number] Start: 01-19-2023 Encounter for preprocedural laboratory examination Thien POWER [facility] Start: 01-04-2023 End: 01-04-2023 ambulatory Shaquille Geraldshantal Other [employer] Other Start: 01-04-2023 Office outpatient vi sit 25 minutes Shaquille Remy [facility] [place] Start: 01-04-2023 Telephone encounter Shaquille DA SILVA [facility] Start: 12-28-2022 End: 12-28-[address] DOCTOR HATCH Facility:[id number] Start: 12-14-2022 End: 12-14-2022 ambulatory Thien POWER Facility:[id number] Start: 12-08-2022 End: 12-08-2022 ambulatory Shaquille Remy Other [employer] Other Start: 12-08-2022 Telephone encounter Shaquille Remy [facility] [place] Start: 12-07-2022 End: 12-07-2022 ambulatory Shaquille Remy Other [employer] Other Start: 12-07-2022 Office outpatient vi sit 25 minutes Shaquille Remy [facility] [place] Start: 12-07-2022 Telephone encounter Shaquille Remy [facility] [place] Start: 12-03-[address] Katie Salguero Facility:[id number] Start: 11-09-2022 End: 11-09-2022 ambulatory Shaquille Remy Other [employer] Other Start: 11-09-2022 Office outpatient vi sit 25 minutes Shaquille Remy [facility] [place] Start: 11-09-2022 Telephone encounter Shaquille Remy [facility] Start: 10-20-2022 End: 10-20-2022 ambulatory Geovany Valle Other [employer] Other Start: 10-20-2022 Telephone encounter Geovany Valle [facility] [employer] [employer] [facility] Start: 10-19-2022 End: 10-19-2022 ambulatory Geovany Valle Other [employer] Other Start: 10-19-2022 Office outpatient ne w 30 minutes Geovany Valle [facility] Start: 10-07-2022 End: 10-07-2022 ambulatory Shaquille Remy Other [employer] Other Start: 10-07-2022 Telephone encounter Shaquille Remy [facility] [place] Start: 09-09-2022 End: 09-09-2022 ambulatory Shaquille Remy Other [employer] Other Start: 09-09-2022 Office outpatient vi sit 25 minutes Shaquille Remy [facility] [place] Start: 09-09-2022 Telephone encounter Shaquille DA SILVA Rash[facility] Start: 08-20-2022 End: 08-20-2022 ambulatory Shaquille Geraldshantal Other [employer] Other Start: 08-20-2022 Follow-up encounter Shaquille Caraballo [facility] [place] Start: 08-17-2022 (Procedure) Short Shaquille Remy [facility] Start: 08-17-2022 End: 08-17-2022 Admission to same day surgery center DO Katie Salguero Work Phone: [facility] Start: 08-17-2022 End: 08-17-2022 ambulatory DO Katie Salguero Work Phone: [facility] Work Phone: Start: 08-05-2022 End: 08-05-2022 ambulatory Shaquille Remy Other [employer] Other Start: 08-05-2022 Office outpatient vi sit 25 minutes Shaquille Remy [facility] [place] Start: 08-05-2022 Telephone encounter Shaquille DA SILVA Rash[facility] [place] Start: 07-08-2022 End: 07-08-2022 ambulatory Shaquille Remy Other [employer] Other Start: 07-08-2022 Office outpatient vi sit 25 minutes Shaquille Remy [facility] [place] Start: 06-10-2022 End: 06-10-2022 ambulatory Shaquille Remy Other [employer] Other Start: 06-10-2022 Office outpatient vi sit 25 minutes Shaquille Remy [facility] [place] Start: 05-18-2022 End: 05-18-2022 Patient encounter procedure Carmen Severino [facility] Start: 05-18-2022 End: 05-18-2022 Patient encounter procedure Carmen Seveirno [facility] Start: 05-10-2022 End: 05-10-2022 ambulatory Shaquille Felter Other [employer] Other Start: 05-10-2022 Office outpatient vi sit 25 minutes Shaquille Felter [facility] [place] Start: 04-01-2022 End: 04-01-2022 ambulatory Shaquille Felter Other [employer] Other Start: 04-01-2022 Office outpatient vi sit 25 minutes Shaquille Felter [facility] [place] Start: 03-11-2022 End: 03-11-2022 ambulatory Shaquille Felter Other [employer] Other Start: 03-11-2022 Office outpatient vi sit 25 minutes Shaquille Felter [facility] [place] Start: 03-09-2022 End: 03-09-2022 Pain Management Carmen Severino [facility] Start: 02-11-2022 End: 08-13-2022 Pre-admission assessment Denise Welch [facility] Start: 02-11-2022 End: 02-11-2022 Patient encounter procedure Denise Welch [facility] Start: 02-11-2022 End: 02-11-2022 ambulatory Shaquille Felter Other [employer] Other Start: 02-11-2022 Office outpatient vi sit 25 minutes Shaquille Felter [facility] [place] Start: 01-15-2022 End: 01-15-2022 ambulatory Shaqulile Felter Other [employer] Other Start: 01-15-2022 Telephone encounter [facility] Start: 01-12-2022 End: 01-12-2022 ambulatory Shaquille Duarteer Other [employer] Other Start: 01-12-2022 Office outpatient vi sit 25 minutes Shaquille Duarteer [facility] [place] Start: 12-15-2021 End: 12-15-2021 ambulatory Shaquille Duarteer Other [employer] Other Start: 12-15-2021 Office outpatient vi sit 25 minutes Shaquille Felter [facility] [place] Start: 11-17-2021 End: 11-17-2021 ambulatory Shaquille Duarteer Other [employer] Other Start: 11-17-2021 Office outpatient vi sit 25 minutes Shaquille Duarteer [facility] [place] Start: 10-15-2021 End: 10-15-2021 ambulatory Shaquille Duarteer Other [employer] Other Start: 10-15-2021 Office outpatient vi sit 25 minutes Shaquille Duarteer [facility] [place] Start: 09-14-2021 End: 09-14-2021 ambulatory Shaquille Duarteer Other [employer] Other Start: 09-14-2021 Office outpatient vi sit 25 minutes Shaquille Duarteer [facility] [place] Start: 09-07-2021 (Procedure) Short Shaquille Remy [facility] Start: 09-07-2021 End: 09-07-2021 ambulatory Shaquille Duarteer Other [employer] Other Start: 08-18-2021 End: 08-18-2021 ambulatory Shaquille Duarteer Other [employer] Other Start: 08-18-2021 Office outpatient vi sit 25 minutes Shaquille Remy [facility] [place] Start: 07-16-2021 Office outpatient vi sit 25 minutes Shaquille Remy [facility] [place] Start: 02-22-2020 Patient encounter status Shaquille Remy Other [facility] Other Start: 11-07-2018 End: 11-07-2018 Patient encounter procedure LAUREL LITTLEJOHN) [facility] Start: 07-07-2018 End: 07-07-2018 Patient encounter procedure LAUREL LITTLEJOHN) [facility] Start: 06-14-2018 End: 06-14-2018 Patient encounter procedure LAUREL LITTLEJOHN) [facility] Start: 06-08-2018 Encounter for other preprocedural examination NATALI SCHNEIDER [facility] Start: 06-08-2018 End: 06-09-2018 Patient encounter procedure LAUREL RODNEY [facility] Start: 05-17-2018 End: 05-22-2018 Patient encounter procedure LAUREL LITTLEJOHN) [facility] Start: 04-26-2018 End: 04-27-2018 Patient encounter procedure NATALI DORAN ([place])[facility] Start: 03-14-2018 End: 03-14-2018 Patient encounter procedure KARISSA NOGUERA [facility] Start: 02-21-2018 End: 03-08-2018 [facility] Start: 01-17-2018 Patient encounter procedure NATALI CALLEJAS) JENNIE [facility] Start: 01-17-2018 End: 01-18-2018 Patient encounter procedure [facility] Procedures Date Procedure Procedure Detail Performing Clinician Start: 08-29-2023 Percutaneous coronar y intervention Durga Thompson Start: 05-31-2023 Radiography of thora cic spine DO Katie Salguero Work Phone: Start: 08-17-2022 Implantation of elec tronic stimulator of spine DO Katie Salguero Work Phone: Start: 06-08-2018 Antibody screen MADONNA ROMERO LUZ MARIA Comment on above: Performed By: #### T [id number] #### [place] [id number] Start: 10-10-2017 Discectomy of spine Shivam Severino Comment on above: Dr. Kelly Mendoza Start: 11-10-2016 Discectomy of spine Shivam Severino Start: 10-10-2015 Discectomy of spine Shivam Severino Comment on above: L5-S1 L5-S1 Implantation of perm anent spinal cord stimulator Ezequiel Vogel Comment on above: 2022 Plan of Treatment Date Care Activity Detail Author Start: 07-23-2025 Screening for malign ant neoplasm of colon Colorectal Cancer Screening [facility] Comment on above: Postponed from 01/23 (Patient Refused) Start: 04-08-2025 Influenza vaccination Influenza Vacc ine (#1) [facility] Comment on above: Postponed from 06/10 (Patient Refused) Start: 01-21-2025 End: 01-21-2025 Patient encounter procedure 01/21/2025 3:00 PM EDT Office Visit [facility] [address] [place] [id number] Katie Salguero, [address] [place] [address] [facility] Start: 01-21-2025 End: 07-23-2025 CBC W Auto Differential panel - Blood CBC and differential Lab Routine Primary hypertension (CMS/HCC) Expected: 01/21/2025 (Approximate), Expires: 07/23/2025 [facility] Work Phone: Comment on above: Expected: 01/21/2025 (Approximate), Expires: 07/23/2025 Start: 01-21-2025 End: 07-23-2025 Comprehensive metabolic 2000 panel - Serum or Plasma Comprehensive metabolic panel Lab Routine Primary hypertension ([facility]/HCC) Expected: 01/21/2025 (Approximate), Expires: 07/23/2025 [facility] Comment on above: Expected: 01/21/2025 (Approximate), Expires: 07/23/2025 Start: 01-21-2025 End: 07-23-2025 Lipid 1996 panel - Serum or Plasma Lipid panel Lab Routine Primary hypertension ([facility]/HCC) Expected: 01/21/2025 (Approximate), Expires: 07/23/2025 [facility] Comment on above: Expected: 01/21/2025 (Approximate), Expires: 07/23/2025 Start: 01-21-2025 End: 07-23-2025 Microalbumin/Creatinine panel in random Urine Microalbumin / creatinine urine ratio Lab Routine Primary hypertension ([facility]/HCC) Expected: 01/21/2025 (Approximate), Expires: 07/23/2025 [facility] Comment on above: Expected: 01/21/2025 (Approximate), Expires: 07/23/2025 Start: 01-21-2025 End: 07-23-2025 Urinalysis complete panel - Urine Urinalysis with microscopic Lab Routine Primary hypertension ([facility]) Expected: 01/21/2025, Expires: 07/23/2025 [facility] Comment on above: Expected: 01/21/2025 , Expires: 07/23/2025 Start: 09-19-2024 End: 09-19-2024 Patient encounter procedure 09/19/2024 10:30 AM EST Office Visit [facility] [address] [place] [address] Katie Salguero DO [address] [place] [address] [facility] Start: 06-10-2024 Influenza vaccination Influenza Vacc ine (#1) [facility] Start: 04-18-2024 Patient referral [facility] [place] Work Phone: Start: 03-19-2024 Patient referral [facility] [place] Work Phone: Start: 08-17-2022 [facility] Start: 1980 Screening for malign ant neoplasm of colon [facility] Patient Education Felter Non Trish gnostic Block [facility] Work Phone: Patient referral [facility] Work Phone: Immunizations Immunization Date Immunization Notes Care Provider Fa jagruti 07-28-2021 influenza, injectabl e, quadrivalent, preservative free Mable Strickland [employer] Work Phone: [facility] 07-28-2021 influenza virus vaccine, unspecified formulation Mable Osmel [employer] Work Phone: [facility] 07-12-2018 Influenza, injectabl e, Madin Jannet Canine Kidney, quadrivalent with preservative Mable Osmel [employer]CE[employer] Work Phone: [facility] 09-28-2017 Depo-Medrol [address] Other [employer] Other 09-08-2017 influenza, injectabl e, quadrivalent, preservative free Mable Osmel [employer]CE[employer] Work Phone: [facility] 05-12-2016 Kenalog -40 mg Shaquille Remy Other [employer] Other 08-05-2015 Depo-Medrol [address] Other [employer] Other 06-12-2015 Depo-Medrol [address] Other [employer] Other 04-22-2015 Depo-Medrol [address] Other [employer] Other 01-15-2015 Depo-Medrol [address] Other [employer] Other 07-24-2013 seasonal influenza, intradermal, preservative free Mable Osmel [employer] Work Phone: [facility] Payers Date Payer Category Payer Unknown [id number] 2023 Private Health Insurance [id number] 2023 Private Health Insurance [id number] 2022 Self-pay [id number] 1978 Unknown [id number] [id number] 1978 Unknown [id number] 2.16.840.1.079796.3.579.2.1068 1978 Unknown [id number] 2.16.840.1.338888.3.579.2.1068 1978 Unknown [id number] 2.16.840.1.875640.3.579.2.1068 1978 Unknown [id number] 2.16.840.1.966783.3.579.2.1068 1978 Unknown [id number] 2.16.840.1.033820.3.579.2. 1978 Unknown [id number] 2.16.840.1.682083.3.579.2. 1978 Unknown [id number] 2.16.840.1.820216.3.579.2. 1978 Unknown [id number] 2.16.840.1.174053.3.579.2. 1978 Unknown [id number] 2.16.840.1.973935.3.579.2 1978 Unknown [id number] 2.16.840.1.298741.3.579.2. 1978 Unknown [id number] 2.16.840.1.742564.3.579.2.727 1978 Unknown [id number] 2.16.840.1.561185.3.579.2.727 1978 Unknown [id number] 2.16.840.1.654069.3.579.2.9 1978 Unknown [id number] 2.16.840.1.360177.3.579.2.1258 1978 Unknown [id number] 2.16.840.1.074242.3.579.2.1258 1978 Unknown [id number] 2.16.840.1.584067.3.579.2.1258 1978 Unknown [id number] 2.16.840.1.998977.3.579.2.1258 1978 Unknown [id number] 2.16.840.1.597290.3.579.2.1258 1978 Unknown [id number] 2.16.840.1.336308.3.579.2.1259 1959 Unknown [id number] 2.16.840.1.947518.19 Private Health Insurance [facility] [id number] Unknown [place]/BS [id number] Unknown [id number] 2.16.840.1.920348.3.579.2.531 Unknown [id number] 2.16.840.1.338962.3.579.2.531 Social History Date Type Detail Facility Tobacco smoking status Unknown if ever sm oked [facility] [employer] Other Start: 09-05-2023 Sex Assigned At Male N [facility] [employer] Other Start: 03-09-2022 End: 05-10-2024 Light tobacco smoker (finding) [facility] Start: 03-30-2021 End: 02-16-2024 Tobacco smoking status NHIS Smoker (finding) [facility] Start: 1980 Sex Assigned At Male [facility] Start: 09-06-2023 Tobacco smoking stat us NHIS Smokes tobacco daily [facility] History of tobacco use Cigarette Smoker [facility] Start: 03-21-2024 End: 07-23-2024 Alcoholic beverage intake Ex-drinker (finding) [facility] Start: 09-05-2023 History of Social function [facility] Start: 03-15-2023 Tobacco Comment 5 or less cigarettes/day, thinking about quitting. [facility] Start: 03-15-2023 Alcohol Comment coke 2x a day [facility] Start: 1980 Sex assigned at Not on file [facility] Medical Equipment Procedure Code Equipment Code Equipment Origin al Text Equipment Identifier Dates Implantation, spinal cord stimulator, stage 1 Analgesic spinal cord electrical stimulation system [id number] FDA Start: 08-17-2022 PCI Unknown 08/11 0 Non Biological Unknown FDA Start: 08-29-2023 PCI Unknown 08/11 0 Non Biological Unknown FDA Start: 08-29-2023 PCI Unknown 08/11 0 Non Biological Unknown FDA Start: 08-29-2023 PCI Unknown 08/11 0 Non Biological Unknown FDA Start: 08-29-2023 PCI Unknown / 0 Non Biological Unknown FDA Start: 08-29-2023 PCI Unknown 08/11 0 Non Biological Unknown FDA Start: 08-29-2023 PCI Unknown 08/11 0 Non Biological Unknown FDA Start: 08-29-2023 Goals Date Patient Goal Desired Activity /State Functional Status Date Assessment Result Facility 07-18-2024 Functional Status N/A [facility] 05-10-2024 Functional Status N/A [facility] 12-09-2023 Functional Status N/A [facility] 12-09-2023 Functional Status [facility] 09-29-2023 Functional Status N/A [facility] 08-29-2023 Functional Status No [facility] 08-29-2023 Functional Status [facility] 05-18-2022 Functional Status N/A [facility] Clinical Notes 11-25-2016 to 03-07-2025 Mable Strickland NP - 07/23/2024 3:00 PM EDT Note Date & Type Note Facility 03-07-2025 Note [facility] Cardiology Clinic Note Chief Complaint: HPI: Denise Lantigua is a 45 y.o. male Patient states he still feels wore out. Patient state he is having issues with his blood pressure being high. Per Dr Townsend: Denise Lantigua is a 44 y.o. male [...] was noted to have anterolateral reversible ischemia. Coronary angiography was performed and demosntrated patent stent, in addition to non obstructive CAD. Patient presents today for follow up for CAD and hypertension. Isosorbide was increased to 60mg daily at last visit. Says chest pain has returned and BP has been very high, in the 160's systolic. He gets the chest pain when his blood pressure is elevated. He denies exertional chest pain or shortness of breath. He has not been taking his carvedilol as prescribed, as he was unsure of what dose he should have been taking. Update 03/07/2025 No exertional chest pain or shortness of breath. No palpitations. No lightheadedness or dizziness. No orthopnea or paroxysmal external dyspnea. Occasionally has lower extremity edema at the end of the day. Continues to smoke. Is not using inhalers due to concerns regarding effect on blood pressure apparently. Review of Systems Constitutional: Positive for malaise/fatigue. Past Medical History He has a past medical history of Asthma, Coronary artery disease, Hyperlipidemia, Hypertension, and Myocardial infarction (CMS/HCC). Surgical History He has a past surgical history that includes Cardiac catheterization; Coronary stent placement; Back surgery; and Spinal cord stimulator implant. Social History He reports that he has been smoking cigarettes. He has never used smokeless tobacco. He reports that he does not currently use alcohol. No history on file for drug use. Family History Family History Problem Relation Name Age of Onset Heart attack Mother 56 Heart attack Maternal Grandfather Allergies Bupropion and Montelukast Medications Current Outpatient Medications: amitriptyline (Elavil) 25 mg tablet, Take 25 mg by mouth if needed at bedtime., Disp: , Rfl: aspirin 81 mg EC tablet, Take 81 mg by mouth in the morning., Disp: , Rfl: atorvastatin (Lipitor) 80 mg tablet, Take 1 tablet (80 mg) by mouth at bedtime., Disp: 90 tablet, Rfl: 3 carvedilol (Coreg) 12.5 mg tablet, Take 1 tablet (12.5 mg) by mouth with breakfast and with evening meal., Disp: 180 tablet, Rfl: 3 clopidogrel (Plavix) 75 mg tablet, Take 1 tablet (75 mg) by mouth in the morning., Disp: 90 tablet, Rfl: 3 cyclobenzaprine (Flexeril) 10 mg tablet, Take 10 mg by mouth if needed in the morning, at noon, and at bedtime., Disp: , Rfl: furosemide (Lasix) 20 mg tablet, Take 20 mg by mouth if needed., Disp: , Rfl: gabapentin (Neurontin) 300 mg capsule, Take 300 mg by mouth three times daily., Disp: , Rfl: isosorbide mononitrate ER (Imdur) 30 mg 24 hr tablet, Take 30 mg by mouth in the morning., Disp: , Rfl: isosorbide mononitrate ER (Imdur) 60 mg 24 hr tablet, Take 1 tablet (60 mg) by mouth in the morning. Do not crush or chew., Disp: 90 tablet, Rfl: 3 losartan (Cozaar) 100 mg tablet, Take 50 mg by mouth in the morning and at bedtime., Disp: , Rfl: nitroglycerin (Nitrostat) 0.4 mg SL tablet, Place 0.4 mg under the tongue., Disp: , Rfl: oxyCODONE-acetaminophen (Percocet) 5-325 mg tablet, Take 1 tablet by mouth if needed in the morning, at noon, and at bedtime., Disp: , Rfl: pantoprazole (ProtoNix) 40 mg EC tablet, Take 1 tablet (40 mg) by mouth in the morning., Disp: 90 tablet, Rfl: 3 ranolazine (Ranexa) 500 mg 12 hr tablet, Take 500 mg by mouth twice a day., Disp: , Rfl: Last Recorded Vitals BP (!) 142/98 (BP Location: Right arm, Patient Position: Sitting) Pulse 88 Ht 1.753 m (5' 9 ) Wt 82.6 kg (182 lb) SpO2 95% BMI 26.88 kg/m??? Physical Examination: GENERAL: alert and oriented x3, well developed, in no acute distress. HEAD: atraumatic, normocephalic. EYES: VETO, EOMI. NECK: trachea midline, no JVD present, no carotid bruits present. CARDIAC: S1, S2 present. RRR. No murmur, rubs, or gallops. RESPIRATORY: CTAB, no increased effort of breathing, Scattered wheezing ABDOMEN: soft, nontender, nondistended. EXTREMITIES: no lower extremity edema, peripheral pulses are 2+ bilaterally. No rash/skin discoloration present. NEURO: strength/sensation equal and symmetric in bilateral upper and lower extremities. PSYCH: appropriate mood, affect, and judgement. INVESTIGATIONS: Acute anterior wall myocardial infarction on 08/29/2023: Treated with PCI and LAD henri (more content not included)... [facility] 12-17-2024 Note Cardiology Clinic No te HPI: Denise Lantigua is a 44 y.o. [...] was noted to have anterolateral reversible ischemia. Coronary angiography was performed and demosntrated patent stent, in addition to non obstructive CAD. Patient presents today for follow up for CAD and hypertension. Isosorbide was increased to 60mg daily at last visit. Says chest pain has returned and BP has been very high, in the 160's systolic. He gets the chest pain when his blood pressure is elevated. He denies exertional chest pain or shortness of breath. He has not been taking his carvedilol as prescribed, as he was unsure of what dose he should have been taking. ROS Review of Systems Constitutional: Positive for malaise/fatigue. Cardiovascular: Positive for chest pain and leg swelling (minimal). Neurological: Positive for light-headedness. All other systems reviewed and are negative. Past Medical History He has a past medical history of Asthma, Coronary artery disease, Hyperlipidemia, Hypertension, and Myocardial infarction (CMS/HCC). Surgical History He has a past surgical history that includes Cardiac catheterization; Coronary stent placement; Back surgery; and Spinal cord stimulator implant. Social History He reports that he has been smoking cigarettes. He has never used smokeless tobacco. He [...] morning. atorvastatin (Lipitor) 80 mg tablet Take 1 tablet (80 mg) by mouth at bedtime. 90 tablet 3 clopidogrel (Plavix) 75 mg tablet Take 1 tablet (75 mg) by mouth in the morning. 90 tablet 3 cyclobenzaprine (Flexeril) 10 mg tablet Take 10 mg by mouth if needed in the morning, at noon, and at bedtime. furosemide (Lasix) 20 mg tablet Take 20 mg by mouth if needed. gabapentin (Neurontin) 300 mg capsule Take 300 mg by mouth three times daily. isosorbide mononitrate ER (Imdur) 60 mg 24 hr tablet Take 1 tablet (60 mg) by mouth in the morning. Do not crush or chew. 90 tablet 3 losartan (Cozaar) 100 mg tablet Take 50 mg by mouth in the morning and at bedtime. nitroglycerin (Nitrostat) 0.[address] 0.4 mg under the tongue. pantoprazole (ProtoNix) 40 mg EC tablet Take 1 tablet (40 mg) by mouth in the morning. 90 tablet 3 ranolazine (Ranexa) 500 mg 12 hr tablet Take 500 mg by mouth twice a day. isosorbide mononitrate ER (Imdur) 30 mg 24 hr tablet Take 30 mg by mouth in the morning. oxyCODONE-acetaminophen (Percocet) 5-325 mg tablet Take 1 tablet by mouth if needed in the morning, at noon, and at bedtime. No current facility-administered medications on file prior to visit. Allergies Patient has no known allergies. Physical Exam VITAL SIGNS: BP (!) 143/100 (BP Location: Left arm, Patient Position: Sitting) Pulse 88 Ht 1.753 m (5' 9 ) Wt 80.3 kg (177 lb) SpO2 95% BMI 26.14 kg/m??? Constitutional: Well developed, Well nourished, No [...] Lantigua is a 44 y.o. male with Chest pain, 2. CONNORS (dyspnea on exertion), resolved 3. Primary hypertension, poorly controlled 4. Coronary artery disease involving [place] coronary artery of [place] (more content not included)... [facility] 07-23-2024 History of Present illness Narrative Images from the original note were not included. Denise Lantigua is a 44 y.o. male presents with chief complaint of Three-month office visit HPI: HPI Patient went to [facility] mgt doctor at [facility]. He was prescribed Amitriptyline, which he was already on. 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 Patient has not had Percocet for months. History of Present Illness The patient presents for evaluation of multiple medical concerns. He reports that his pain has been exacerbated by the cold weather over the past few weeks. The pain originates in his neck and radiates between his shoulder blades, worsening with back pain. He is scheduled to receive injections in his neck, which requires discontinuing his blood thinners for a week. An MRI of his neck is also planned. Despite attempts at therapy and exercise, he has not found relief. He uses a stimulator for pain management, which allows him to walk without a cane, but the pain persists. He continues to follow with pain management in [place]. He experiences difficulty in distinguishing between chest pain and heart pain, which radiates down his arm. He carries nitroglycerin with him when visiting stores due to anxiety-induced chest pain. His sleep is limited to 2 hours per night without daytime napping. He has not yet seen a psychiatrist. He takes amitriptyline 35 mg as needed for migraines, which was previously prescribed. He has not undergone a colonoscopy or Cologuard test. He monitors his blood pressure at home, which occasionally reaches 160/110 but typically remains around 120/80. He takes his blood pressure medication consistently and has not experienced any episodes of fainting. He reports feeling fatigued when his blood pressure is low and dizzy when it is high. His Imdur dosage was recently increased to 60 mg. He has attempted to quit smoking without success. SOCIAL HISTORY He smokes 5 cigarettes a day. FAMILY HISTORY His stepfather had colon cancer. His mother had hypertension. There is no family history of colon cancer. HISTORIES: PAST MEDICAL HISTORY: Past Medical History: Diagnosis Date Asthma, unspecified, unspecified status BPH NOS w ur obs/LUTS Coronary artery ectasia (CMS/HCC) Failed back syndrome Generalized anxiety disorder (CMS/HCC) Lumbar disc disease Major depression (CMS/HCC) Pneumonia 2016 Hospitalized: Bilateral pneumonia SURGICAL HISTORY: Past Surgical History: Procedure Laterality Date CYSTOSCOPY 06/29/2021 Cystoscopy/Laser Litho/B/L stent placement IR ABLATION NERVE 07/2017 Nerve Ablation Lumbar Spine LUMBAR DISC SURGERY 11/25/2016 LUMBAR DISC SURGERY 06/14/2018 Decompression surgery of lumbar spine MULTIPLE TOOTH EXTRACTIONS 06/2021 (17) OTHER SURGICAL HISTORY 08/29/2023 cardiac cath LAD stent [facility] OTHER SURGICAL HISTORY 2023 heart cath RADIOFREQUENCY ABLATION Lumbar ablation, 07/2020, 03/2021 , 04/2021 SPINAL CORD STIMULATOR IMPLANT 12/2022 pain stimulator placed URETEROLITHOTOMY 2011 SOCIAL HISTORY: Social History Tobacco Use Smoking status: Every Day Current packs/day: 0.50 Types: Cigarettes Tobacco comments: 5 or less cigarettes/day, thinking about quitting. Substance Use Topics Alcohol use: Not Currently Comment: coke 2x a day Drug use: Never Depression: Not at risk (11/07/2018) [facility] PHQ-2 PHQ-2 score: 0 FAMILY HISTORY: Family History Problem Relation Name Age of Onset Diabetes Mother Mom Hypertension Mother Mom Stroke Mother Mom No Known Problems Sister No Known Problems Brother No Known Problems Daughter No Known Problems Son MEDICATIONS: Current Outpatient Medications Medication Instructions amitriptyline (ELAVIL) 10 mg, Oral, Nightly PRN, Take with 25mg amitriptyline (ELAVIL) 25 mg, Oral, Nightly PRN, Takes with 10mg for total of 35mg amLODIPine (NORVASC) 2.5 mg, Oral, Daily atorvastatin (LIPITOR) 80 mg, Daily carvedilol (COREG) 12.5 mg, Oral, 2 times daily with meals clopidogrel (PLAVIX) 75 mg, Oral, Daily [facility] Aspirin Low Dose 81 mg, Daily cyclobenzaprine (FLEXERIL) 10 mg, Oral, 3 times daily PRN gabapentin (NEURONTIN) 900 mg, Oral, 3 times daily isosorbide mononitrate ER (IMDUR) 60 mg, Oral, Daily losartan (COZAAR) 50 mg, Oral, 2 times daily nitroglycerin (NITROSTAT) 0.4 mg, Sublingual, Every 5 min PRN pantoprazole (PROTONIX) 40 mg, Oral, Daily, Do not crush, chew, or split. ranolazine (RANEXA) 500 mg, Oral, 2 times daily, Do not crush, chew, or split. ALLERGIES: Allergies Allergen Reactions Montelukast Other Reaction(s): nightmares Wellbutrin [Bupropion] Other Makes him angry PHYSICAL EXAM: Visit Vitals BP (!) 142/91 Pulse 74 Ht 5' 9 SpO2 98% BMI 24.96 kg/m Smoking Status Every Day BSA 1.93 m BP Readings from Last 3 Encounters: 07/23/24 (!) 142/91 03/21/24 (!) 140/100 02/08/24 148/78 Wt Readings from Last 3 Encounters: 03/21/24 169 lb 02/08/24 168 lb 01/26/24 168 lb Physical Exam Cardiovascular: Rate and Rhythm: Normal rate and regular rhythm. Heart sounds: Normal heart sounds. Pulmonary: Effort: Pulmonary effort is normal. Breath sounds: Normal breath sounds. Abdominal: General: Bowel sounds are normal. Palpations: Abdomen is soft. Musculoskeletal: Cervical back: Neck supple. Neurological: General: No focal deficit present. Mental Status: He is alert. Psychiatric: Mood and Affect: Mood normal. Physical Exam Vital Signs Blood pressure measures 142/90. Results ASSESSMENT AND PLAN: Diagnosis Plan 1. Failed back surgical syndrome 2. Coronary artery disease involving [place] coronary artery of [place] heart without angina pectoris (CMS/HCC) isosorbide mononitrate ER (Imdur) 60 MG 24 hr tablet 3. Colon cancer screening 4. Chronic pain syndrome 5. Recurrent major depressive disorder, in partial remission (HCC) (CMS/HCC) 6. Primary hypertension (CMS/HCC) amLODIPine (Norvasc) 2.5 MG tablet CBC and differential Comprehensive metabolic panel Microalbumin / creatinine urine ratio Lipid panel Urinalysis with microscopic Microalbumin / creatinine urine ratio Assessment & Plan 1. Hypertension. Elevated blood pressure was noted during today's visit, with readings often reaching 160/110 at home. Amlodipine 2.5 mg daily has been prescribed to manage his hypertension. He is advised to monitor his blood pressure regularly at home. Blood work has been ordered to monitor his condition. 2. Chronic Pain. He reports ongoing pain, particularly exacerbated by colder weather, affecting his whole body, neck, and down his arm. He has a pain stimulator that helps reduce leg pain but does not completely alleviate his symptoms. He is advised to continue with his current pain management plan and follow up with his pain management doctor. An MRI has been recommended to further evaluate his neck pain. He is also considering neck injections, pending ice cream van vendor approval to stop blood thinners for a week. 3. Insomnia. He reports difficulty sleeping, often getting only 2 hours of sleep per night. He does not take naps during the day. Amitriptyline 35 mg (10 mg + 25 mg) is being used as needed, which helps with sleep initially but loses effectiveness over time. He is advised to continue with his current regimen and consider sleep hygiene practices. 4. Anxiety/ history of major depression He experiences significant anxiety, particularly in crowded places, which exacerbates his chest pain. He carries nitroglycerin for these episodes. He is encouraged to continue using coping strategies and consider counseling or psychiatry for further management. 5. Health Maintenance. He has declined colon cancer screening at this time but is advised to reconsider, especially given his family history of colon cancer. He is informed about the Cologuard test as a non-invasive option. Continues to refuse. 6. CAD Continue following with cardiology. Recent heart cath. Follow-up Return in 6 months for follow-up. PCP has been managing and treating these chronic conditions. PCP is present in the office and actively involved in the treatment plan. documented in this encounter [facility] 07-18-2024 Evaluation + Plan note [facility] brandon from: Title:Pain Managment Follow up Author:Regina Marie Date:07/18/24 Impression and Plan Patient is a 44-year-old male with a past medical history significant for postlaminectomy syndrome spinal cord stimulator status. He does have a stimulator with improvement, chronic pain, lumbar neuritis, cervical foraminal stenosis and cervical neuritis. He has neck pain with bilateral arm pain and lower back pain with bilateral leg pain. We reviewed his MRIs. We discussed different options. He has a history of injections with Dr. Remy all to his lower back. He states that he has never had any in his neck. He has done therapy in the past that has not helped. We reviewed his MRIs. At this time, based on his neck pain with bilateral arm pain, his imaging findings and his pain pattern I recommended a C7-T1 epidural steroid injection under fluoroscopy for both diagnostic and therapeutic purposes. Procedure was discussed. Risks and benefits were discussed. Patient is agreeable. For his lower back and leg pain he is going to need to use a stimulator which is MRI conditional. I recommended obtaining updated lumbar MRI scan for possible other injection options versus surgical consultation depending on the results. Patient is agreeable. He states that he never wants to have another surgery so he does not really want to pursue any surgeries but he would be agreeable to other interventional treatment options. In regards to his medications he did not get any improvement with the Cymbalta. We discussed trialing amitriptyline. Potential side effects were discussed. 25 mg nightly will be sent to the pharmacy. He will follow-up 2 weeks after the injection for reevaluation OBS for: 46%. Future Scheduled Tests Laboratory* Basic Metabolic Panel 12/12/23 [facility] 10-09-2024 NoteConsultation Note Patient: DENISE LANTIGUA Age: 44 years Sex: Male : 1980 Associated Diagnoses: None Author: Regina Amador PA-C Subjective Chief complaint 07/18/2024 10:46 EDT Lower back and between shoulder blades . Patient is a 44-year-old male. He presents today for 2-month follow-up. He trialed Cymbalta but hadno improvement so he stopped taking it. He has lower back pain with bilateral radiating leg pain aswell as neck pain with left greater than right radiating arm pain. He rates his discomfort a 7?10/10. He is having the above-mentioned pain that he states affects his ability to do things up today. Affects his quality life. Affects his activities. He has a stimulator. He states that the stimulator does give him some improvement. He is able to get through the day because of the spinal portion, it is not enough. He has done therapy in the past. This has not helped. He has tried a multitude of medications. Patient is not able to use anti-inflammatory medication due to Plavix. He states that he is here today to discuss options. He has a history of injections with Dr. Remy. He also has a history of the stimulator and he just wonders what else he can do to try to get some relief. Health Status Allergies: Allergic Reactions (Selected) No Known Medication Allergies, Allergies (1) Active Severity Reaction No Known Medication Allergies None Documented Current medications: (Selected) Prescriptions Prescribed Lasix 20 mg Tab: 20 mg = 1 tab(s), Oral, Daily, # 30 tab(s), Refills(s) 6, [id number] 175, cm, 09/29/23 15:16:00 EST, Height/Length Dosing, 73.7, kg, 09/29/23 15:16:00 EST, Weight Dosing Ranexa 500 mg Tab-ER: 500 mg = 1 tab(s), Oral, BID, # 60 tab(s), Refills(s) 3, [id number], 175, cm, 09/29/23 15:16:00 EST, Height/Length Dosing, 73.7, kg, 09/29/23 15:16:00 EST, Weight Dosing amitriptyline 25 mg Tab: 25 mg = 1 tab(s), Oral, Once a day (at bedtime), # 30 tab(s), Refills(s) 1, Pharmacy: [id number], 175.3, cm, 07/18/24 11:06:00 EDT, Height/Length Dosing, 75.9, kg, 07/18/24 11:06:00 EDT, Weight Dosing aspirin 81 mg Oral EC Tab: 81 mg = 1 tab(s), Oral, Daily, # 30 tab(s), Refills(s) 0, [id number], 175, cm, 09/29/23 15:16:00 EST, Height/Length Dosing, 73.7, kg, 09/29/23 15:16:00 EST, Weight Dosing atorvastatin 80 mg Tab: 80 mg = 1 tab(s), Oral, Daily, # 30 tab(s), Refills(s) 6, [id number], 175, cm, 09/29/23 15:16:00 EST, Height/Length Dosing, 73.7, kg, 09/29/23 15:16:00 EST, Weight Dosing carvedilol 6.25 mg Tab: 6.25 mg = 1 tab(s), Oral, BID, # 60 tab(s), Refills(s) 6, [id number], 175, cm, 09/29/23 15:16:00 EST, Height/Length Dosing, 73.7, kg, 09/29/23 15:16:00 EST, Weight Dosing clopidogrel 75 mg Tab: 75 mg = 1 tab(s), Oral, Daily, # 30 tab(s), Refills(s) 3, Pharmacy: [facility], 175, cm, 12/09/23 1:00:00 EST, Height/Length Dosing, 75.7, kg, 12/09/23 1:00:00 EST, Weight Dosing cyclobenzaprine 10 mg Tab: See Instructions, 1 tab(s) Oral, # 30 tab(s), Refills(s) 0, Pharmacy: [facility] #[id number], 175, cm, 09/29/23 15:16:00 EST, Height/Length Dosing, 73.7, kg, 09/29/23 15:16:00 EST, Weight Dosing isosorbide mononitrate 30 mg ER Tab: 30 mg = 1 tab(s), Oral, qAM, # 30 tab(s), Refills(s) 3, Pharmacy: [facility] #[id number], 175, cm, 09/29/23 15:16:00 EST, Height/Length Dosing, 73.7, kg, 09/29/23 15:16:00 EST, Weight Dosing losartan 25 mg Tab: 25 mg = 1 tab(s), Oral, BID, # 60 tab(s), Refills(s) 0, Pharmacy: [facility] #[id number], 175, cm, 12/09/23 1:00:00 EST, Height/Length Dosing, 75.7, kg, 12/09/23 1:00:00 EST, Weight Dosing work excuse: work excuse, 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 CAD in [place] artery / SNOMED CT 52361820 / Confirmed Hypertensive emergency / SNOMED CT 8243098653 / Confirmed Resolved: At risk for falls / SNOMED CT 226518918 Problem added when Risk for Falls Careplan was initiated. Resolved due to patient discharge. Resolved: Hypertension / SNOMED CT 58180593 Resolved: Stent / SNOMED CT 066013265 Resolved: Myocardial infarction / SNOMED CT 19306014 Resolved: Hyperlipidemia / SNOMED CT 37249813 Resolved: CHF - Congestive heart failure / SNOMED CT 692326710 Objective Vital Signs 07/18/2024 10:46 EDT Peripheral Pulse Rate 70 bpm Respiratory Rate 20 br/min Systolic Blood Pressure 149 mmHg HI Diastolic Blood Pressure 100 mmHg HI Mean (more content not included)...[facility] HospitalComment on above: Result Comment: Electronically Signed By: Regina Amador PA-C\.br\Date and Time Signed: 07/18/24 11:25 [id number] Telephone encounter Note* Telephone Encounter - Mable Strickland NP - 06/28/2024 3:33 PM EDT Requesting [facility] flexeril [id number] Miscellaneous Notes* Telephone Encounter - Mable Strickland NP - 06/28/2024 3:33 PM EDT Requesting refill of flexeril documented in this encounterUniversity [id number] NoteCardiology Clinic Note Chief Complaint: Follow up, [...] was noted to have anterolateral reversible ischemia. Coronary angiography was performed and demosntrated patent stent, in addition to non obstructive CAD. Patient presents today for follow up. Patient states that chest pain shortness of breath has resolved. This is corroborated by his , who is accompanies him during the visit today. Blood pressure is better controlled at home. No new complaints or concerns. Cath exit site is clean, dry, and intact. No lower extreme edema, orthopnea, or paroxysmal nocturnal dyspnea. ROS 10 point ROS is performed and is negative unless otherwise specified in HPI Past Medical History He has a past medical history of Asthma, Coronary artery disease, Hyperlipidemia, Hypertension, and Myocardial infarction ([facility]). Surgical History He has a past surgical [...] Lantigua is a 44 y.o. male with Chest pain, resolved 2. CONNORS (dyspnea on exertion), resolved 3. Primary hypertension 4. Coronary artery disease involving [place] coronary artery of [place] heart, unspecified whether angina present 5. Tobacco abuse 6. Abnormal stress test Continue Aspirin, Plavix, Atorvastatin, and coreg for CAD Continue Coreg for HTN Continue Atorvastati (more content not included)...[facility]08-15-2024 NotePatient: Denise Lantigua Procedure Information Date/Time: 05/24/24 1030 Procedure: Coronary angiography (Left) Location: [facility] / [facility] (Cath) Providers: Isadora Townsend MD Clinical information reviewed: Allergies Meds Physical Exam Airway Mallampati: III TM distance: <3 FB Neck ROM: full Cardiovascular Rhythm: regular Rate: normal (-) murmur, peripheral edema Dental - normal exam Pulmonary - normal exam Breath sounds clear to auscultation Abdominal - normal exam Abdomen: soft Anesthesia Plan ASA 3 other (Conscious sedation) Anesthetic plan and risks discussed with patient. Use of blood products discussed with patient who consented to blood products. Plan discussed with attending. Additional [facility]sB[facility] Note Consultation Note Patient is presenting with [...] you sit down take a rest. He statesthat his pain is significant debilitating and he has tried several medications inclusive of NSAIDs,acetaminophen, gabapentin and Percocet. He feels the gabapentin and Percocet are the only things have been effective at helping his pain somewhat. He has not tried many other medications of other classes such as tricyclic antidepressants or SNRIs. We discussed working on nonnarcotic based interventi ons at this time. NIHARIKA Score: 46% PHQ-2: [...] sign bilaterally, seated straight leg raise test reproducemild radicular symptoms on the right. History, physical [...] and treatment, all questions were answered and patientagrees to adhere to the plan above. Risk [...] call with any questions or concerns that arise.[facility] HospitalComment on above:Result Comment: Electronically Signed By: Ezequiel Vogel DO\Date and Time Signed: 05/10/24 14:19 [id number] Evaluation + Plan noteExtracted from: Title:chronic pain Author:Ezequiel Vogel DO. Date:05/10/24 Patient is presenting with c omplaints [...] Date:07/11/2024 12:45:00 PM Scheduled Provider:Ezequiel Vogel DO Location[facility] Appointment Type:Pain Management - Follow Up (FT) Future Scheduled Tests Laboratory* Basic Metabolic Panel 12/12/23 [facility] 07-26-2024 NoteCardiology Clinic Note Chief Complaint: [...] Primary hypertension 4. Coronary artery disease involving [place] coronary artery of [place] heart, unspecified whether angina present 5. Tobacco [...] arrythmia requiring defibrillation, need (more content not included)...[facility]06-28-2024 NoteCardiology Clinic Note Chief Complaint: New Patient, history of CAD s/p PCI HPI: Denise Lantigua is a 44 y.o. male who has a past medical history of Asthma, Coronary artery disease, Hyperlipidemia, Hypertension, and Myocardial infarction ([facility]). that is referred to Cardiology clinic to [...] artery disease, Hyperlipidemia, Hypertension, and Myocardial infarction ([facility]). Surgical History He has a past surgical [...] y.o. male with Coronary artery disease involving [place] coronary artery of [place] heart, unspecified whether angina present Primary hypertension [...] understanding and is agre (more content not included)...[facility]03-04-2024 Evaluation + Plan note Future Scheduled Tests Laboratory* Basic Metabolic Panel 12/12/23 [facility]03-01-2024 Hospital Discharge instructions Patient Education 12/09/2023 13:46:35 Hypertension, Adult, Munn-vf-Pxrj Hypertension, Adult Hypertension is another name for [...] doctor. Keep all follow-up visits. Medicines Take xqfo-gar-bplkaua and prescription medicines only as told by [...] provider. Document Revised: 07/15/2022 Document Reviewed: 07/15/2022 [employer] Patient Education 2022 [employer]. Follow Up Care 12/09/2023 00:53:41 With:Rebekah RODNEY, Denise Parada. Address: [address] [place] [address] [place] [address] Business (1) When:1 to 2 weeks Comments:Call for followup appointmentCall physician if symptoms worsen With:KATIE SALGUERO Address: [address] [place] [address] [address], [address] [address] Business (1) When:12/14/2023 10:30:00 [facility]03-01-2024 NoteAdmission and Discharge Information Admitting Physician - Dora RHODES DO Consulting Physician - [facility] Cardio, XXXX ZACH RODNEY, Frank [place] Admitting Diagnoses: Discharge Order Date Discharge Patient - Ordered -- 12/09/23 13:52:00 EST Discharge Diagnoses 1. Chest pain, 12/09/2023 2. CAD in [place] artery, 12/09/2023 3. Hypertensive emergency, 12/09/2023 4. [...] Cardiology - Ordered -- 12/09/23 2:41:00 EST, britney, Consult and Co-manage, [facility] [...] tablet Follow-up With When Contact Information KATIE SALGUERO 12/14/2023 10:30 AM EST [address], [address] [place] [address]- Business (1) Additional Instructions: Rebekah RODNEY, Denise Valdez Within 1 to 2 weeks [address] [place] [address]- Business (1) Additional Instructions: Call for followup appointment Call physician if symptoms worsen Patient Education Hypertension, Adult, Bjlf-zm-SoltZtezjpMansfield HospitalComment on above: Result Comment: Electronically Signed By: Durga Thompson DO\.br\Date and Time Signed: 12/09/23 14:01 [id number] Evaluation + Plan noteExtracted from: Title:Discharge Note [...] oral tablet With When Contact Information KATIE SOARESMely 12/14/2023 10:30 AM EST [address], [address] [place] [address]- Business (1) Additional Instructions: Rebekah RODNEY, Denise Valdez Within 1 to 2 weeks [address] [place] [address]- Business (1) Additional Instructions: Call for followup appointment Call physician if symptoms worsen Hypertension, Adult, Dzsy-cy-Uhzd Extracted from: Title:APSO Note Author:Bela DOMINGUEZ student, Parul felipe Jenny Date:12/09/23 1. Chest pain (R07.9: Chest pain, [...] time given negative troponin 2. CAD in [place] artery (I25.10: Atherosclerotic heart disease of [place] coronary artery without angina pectoris) hx of ID in 08/2023 ASA, brilinta, statin 3. Hypertensive emergency (I16.1: Hypertensive emergency) 2/2 to above Losartan coreg imdur Hydralazine prn 4. Smoker (F17.200: Nicotine dependence, unspecified, uncomplicated) Nicotine patch prn Educate on smoking cessation 5. Chronic back pain (M54.9: Dorsalgia, unspecified) Gabapentin Oxycodone 6. On deep vein thrombosis (DVT) prophylaxis (Z79.899: Other buttermaker continuous churn (current) drug therapy) Enoxaparin 7. elevated Cr [...] up with Dr. Putnam. 2. CAD in [place] artery (I25.10: Atherosclerotic heart disease of [place] coronary artery without angina pectoris) 3. Hypertensive emergency (I16.1: Hypertensive emergency) 4. Smoker (F17.200: Nicotine dependence, unspecified, uncomplicated) 5. Chronic back pain (M54.9: Dorsalgia, unspecified) 6. On deep vein thrombosis (DVT) prophylaxis (Z79.899: Other jail (current) drug therapy) Other chronic pain (G89.29: [...] doses have been reconciled. 2. CAD in [place] artery (I25.10: Atherosclerotic heart disease of [place] coronary artery without angina pectoris) See #1 3. Hypertensive emergency (I16.1: Hypertensive emergency) See #1 4. Smoker (F17.200: Nicotine dependence, unspecified, uncomplicated) Nicotine patch as needed. Encourage cessation. 5. Chronic back pain (M54.9: Dorsalgia, unspecified) Will continue patient's gabapentin and oxycodone. 6. On deep vein thrombosis (DVT) prophylaxis (Z79.899: Other buttermaker continuous churn (current) drug therapy) SCD, enoxaparin Orders: acetaminophen, [...] Scheduled Tests Laboratory* Basic Metabolic Panel 12/12/23 [facility]03-01-2024 NoteEchocardiology Procedure Exam Date/Time Accession # Ordering Dr. Kiser Transthoracic 12/09/2023 09:13 EST [id number] Frank SERRANO MD Complete CPT code 58861 13767 Reason for Exam (Echo Transthoracic Complete) Chest pain Report [facility] [address] [place] [address] Adult Echocardiogram Report Name: DENISE LANTIGUA Study Date: 12/09/2023 08:32 AM BP: 142/101 mmHg Patient Location: [address] [place] [address] HR: 66 : 1980 Gender: Male Height: 68.5 in Age: 43 yrs Ethnicity: T Weight: 163 lb Reason For Study: Chest pain BSA: 1.9 m2 History: CAD, ID, PCI, HTN, Smoker Ordering Physician: Frank SERRANO Performed By: Sarah Engel [facility] Interpretation Summary Ejection Fraction = 60-65%. The [...] Frank SERRANO MD Transcribed by: BASSAM Technologist: [facility]03-01-2024 Note Chief Complaint Pt. reports high blood [...] 4.6 E12/L (12/09/23 01:05:00) HGB: 13.8 gm/dL (12/09/23 01:05:00) Hct: 39.8 % (12/09/23 01:05:00) MCV: 86.2 fL (12/09/23 01:05:00) MCH: 29.9 pg (12/09/23 01:05:00) MCHC: 34.7 gm/dL (12/09/23 01:05:00) RDW: 16.4 % High (12/09/23 01:05:00) Platelet: 308 E9/L (12/09/23 01:05:00) MPV: 8.2 fL (12/09/23 01:05:00) Neutro Auto: 59.1 % (12/09/23 01:05:00) Lymph Auto: 28.6 % (12/09/23 01:05:00) [place] Auto: 5.5 % (12/09/23 01:05:00) Eos Auto: 5.8 % (12/09/23 01:05:00) Basophil Auto: 1 % (12/09/23 01:05:00) Neutro Absolute: 6.3 E9/L (12/09/23 01:05:00) Lymph Absolute: 3.1 E9/L (12/09/23:05:00) [place] Absolute: 0.6 E9/L (12/09/23:05:00) Eos Absolute: 0.6 E9/L High (12/09/23:05:00) Basophil Absolute: 0.1 E9/L (12/09/23:05:00) PT: 10.9 second(s) (12/09/23:05:00) INR: 0.97 (12/09/23:05:00) PTT: 34.7 second(s) (12/09/23:05:00) Glucose Lvl: 110 mg/dL (12/09/23:05:00) BUN: 15 mg/dL (12/09/23:05:00) Creatinine: 1.6 mg/dL High (12/09/23:05:00) eGFR: 54 mL/min/1.73 m2 Low (12/09/23:05:00) BUN/Creat Ratio: 9 Low (12/09/23:05:00) Sodium Lvl: 139 mmol/L (12/09/23 01:05:00) Potassium Lvl: 4.1 mmol/L (12/09/23:05:00) Chloride: 105 mmol/L (12/09/23:05:00) CO2: 26 mmol/L (12/09/23:05:00) AGAP: 12 mEq/L (12/09/23:05:00) Calcium Lvl: 9.4 mg/dL (12/09/23 01:05:00) Troponin: 13.3 pg/mL Low (12/09/23 01:05:00) Assessment/Plan 1. Chest pain (R07.9: Chest pain, unspecified) Concern for unstable angina. Will start patient on nitroglycerin 1 inch. Cardiology has been consulted. Patient is currently on a beta-alfonzo, statin, ARB, ticagrelor, aspirin. These will be continued once doses have been reconciled. 2. CAD in [place] artery (I25.10: Atherosclerotic heart disease of [place] coronary artery without angina pectoris) See #1 3. Hypertensive emergency (I16.1: Hypertensive emergency) See #1 4. Smoker (F17.200: Nicotine dependence, unspecified, uncomplicated) Nicotine patch as needed. Encourage cessation. 5. Chronic back pain (M54.9: Dorsalgia, unspecified) Will continue patient's gabapentin and oxycodone. 6. On deep vein thrombosis (DVT) prophylaxis (Z79.899: Other buttermaker continuous churn (current) drug therapy) SCD, enoxaparin Orders: acetaminophen, [...] day(s), Stop date 01/07 (more content not included)...[facility] HospitalComment on above:Result Comment: Electronically Signed By: Dora RHODES DO.anne\Date and Time Signed: 12/09/23 02:46 [id number] Evaluation note* Encounter Date Diagnosis Assessment Notes [...] note writ ten by Lakshmi Danielson RN, Sanding Supervisor. Edited and approved by Dr. Shaquille Remy MD. [employer] Other 02-12-2024 Evaluation note* Encounter Date Diagnosis Assessment Notes Treatment Notes Treatment Clinical Notes Nov, Chronic, continuous use of opioids (ICD-10 - F11.90) [employer] Other 01-11-2024 Evaluation note* Encounter Date Diagnosis [...] note writ ten by Gabriel Grady LPN, Sanding Supervisor. Edited and approved by Dr. Shaquille Remy MD. [employer] Other 01-11-2024 Evaluation note* Encounter Date Diagnosis Assessment Notes Treatment Notes Treatment Clinical Notes Oct, Chronic, continuous use of opioids (ICD-10 - F11.90) [employer] Other 12-14-2023 Evaluation note* Encounter Date Diagnosis Assessment Notes Treatment Notes Treatment Clinical Notes Sep, Chronic, continuous use of opioids (ICD-10 - F11.90) [employer] Other 12-14-2023 Evaluation note* Encounter Date Diagnosis [...] note writ ten by Lakshmi Danielson RN, Sanding Supervisor. Edited and approved by Dr. Shaquille Remy MD. [employer] Other 11-22-2023 Evaluation + Plan noteExtracted from: [...] Denise Valdez 09/29/2023 02:45 PM EST [address] [place], [place] Additional Instructions: KATIE SALGUERO 09/06/2023 02:30 PM EST [address] , [address] [address]- Business (1) Additional Instructions: Cardiac Rehabilitation Acute [...] on telemetry for another 24 hours. Ordered: [facility] Hospital Care/Day High 50 Minutes [id number] 2. Tobacco abuse (Z72.0: Tobacco use) Educate [...] Vital Signs Weight Extracted from: Title:Progress/SOAP Note Author:ZACH RODNEY, Earl Westbrook Date:08/30/23 1. STEMI (ST elevation myoca rdial [...] Ordered: Initial Hospital Care/Day High 75 Minutes [id number] 2. Tobacco abuse (Z72.0: Tobacco use) Educate [...] 12 Lead Adult Extracted from: Title:ED Note Author:Jh ROOT, Kevin Sierra te:08/29/23 1. STEMI (ST elevation myoca rdial [...] 02:45:00 PM Scheduled Provider:Rebekah RODNEY, Denise Valdez Location[facility] [place] Appointment Type:Cardiology Inpatient Follow Up (FT) [facility]11-22-2023 Hospital Discharge instructions Patient Education 08/31/2023 [...] challenges. Follow these instructions at home: Take oabs-nue-okadvtr and prescription medicines only as told by [...] provider. Document Revised: 01/26/2022 Document Reviewed: 01/26/2022 [employer] Patient Education 2022 [employer]. 08/31/2023 08:16:56 Acute Coronary Syndrome Acute Coronary [...] Follow these instructions at home: Medicines Take wnlv-hjv-tdgcsum and prescription medicines only as told by [...] provider. Document Revised: 03/18/2022 Document Reviewed: 03/18/2022 [employer] Patient Education 2022 [employer]. Follow Up Care 08/29/2023 16:25:37 With:Rebekah RODNEY, Denise Valdez Address: [address] [place] [address] When:09/29/2023 14:45:00 With:KATIE SALGUERO Address: [address] [place], [place] [address]J[place] [address] [facility] (1) When:09/06/2023 14:30:00 [facility]11-22-2023 NoteAdmission and Discharge Information Admit Date/Time:08/29/2023 18:36 Admitting Physician - Durga Thompson DO Consulting [...] was called and patient was taken to Cloth Classer. 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 Patient stable at discharge. Medication changes Discontinued [...] and follow-up as well as communication with dynamics ax consultant, nursing, case management. Physical Exam Vitals [...] 60.3 % Lymph Auto - 30.8 % [place] Auto - 6.9 % Eos Auto - 0.9 % Basophil Auto - 1.1 % Neutro Absolute - 6.2 E9/L Lymph Absolute - 3.2 E9/L [place] Absolute - 0.7 E9/L Eos Absolute - [...] eGFR (08/31/2023) eGFR - (more content not included)...[facility] HospitalComment on above:Result Comment: Electronically Signed By: Jay SHAW, Durga Villagomez\.br\Date and Time Signed: 08/31/23 09:58 [id number] NoteEchocardiology Procedure Exam Date/Time Accession # Ordering Echo Transthoracic 08/30/2023 10:50 EST [id number] Rebekah RODNEY, Denise Valdez CPT code 53624 32584 Reason for Exam (Echo Transthoracic Complete) CAD Coronary artery disease Report [facility] [address] [place] [address] Adult Echocardiogram Report Name: DENISE LANTIGUA Study Date: 08/30/2023 10:18 AM BP: 141/ mmHg Patient Location: [address] [place] [address] HR: 75 : 1980 Gender: Male Height: 69 in Age: 43 yrs Ethnicity: [facility] Weight: 170 lb Reason For Study: CAD Coronary artery disease BSA: 1.9 m2 History: HTN,Smoker-Yes Ordering Physician: Rebekah^Sunny Performed By: Ebony Cuello, RACHELLE Interpretation Summary No comparison study is available. [...] Frank SERRANO MD Transcribed by: BASSAM Technologist: [facility]11-20-2023 Note Procedure [facility] poss PCI via right radial for anterior [...] Start date08/29/23 18:00:00 EST ECG 12 Lead [facility]Comment on above:Result Comment: Electronically Signed By: Rebekah RODNEY, Denise Valdez\.br\Date and Time Signed: 08/29/23 20:54 [id number] NoteChief Complaint STEMI Reason for Consultation STEMI [...] He came home from work and called theambulaile which brought him to the hospital. Cloth Classer was activated for STEMI alert from the [...] pack)/day in last 30 days Tobacco Use:., 03/09/2022[facility] HospitalComment on above:Result Comment: Electronically Signed By: Rebekah RODNEY, Denise Valdez\.br\Date and Time Signed: 08/29/23 20:48 [id number] NoteChief Complaint STEMI History of Present Illness [...] was called and patient was taken to Cloth Classer. In Cloth Classer patient found to have occluded LAD and [...] denies alcohol use. 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 Review of Systems [...] 16:21:00) Lymph Auto: 32.5 % (08/29/23 16:21:00) [place] Auto: 4.6 % (08/29/23 16:21:00) Eos Auto: 0.9 % (08/29/23 16:21:00) Basophil Auto: 0.9 % (08/29/23 16:21:00) Neutro Absolute: 7.6 E9/L High (08/29/23 16:21:00) Lymph Absolute: 4.1 E9/L High (08/29/23 16::00) [place] Absolute: 0.6 E9/L (08/29/23 16:21:00) Eos Absolute: 0.1 E9/L (08/29/23 16::00) Basophil Absolute: 0.1 E9/L (08/29/23 16:21:00) PT: 11.5 second(s) (08/29/23::00) INR: 1 (08/29/23::) PTT: 31.6 second(s) (08/29/23::00) Glucose Lvl: 145 mg/dL (08/29/23::00) BUN: 7 mg/dL (08/29/23::00) Creatinine: 1.1 mg/dL (08/29/23::) eGFR: 84 mL/min/1.73 m2 (08/29/23::00) BUN/Creat Ratio: 6 Low (08/29/23::) Sodium Lvl: 137 mmol/L (08/29/23::00) Potassium Lvl: 3.5 mmol/L (08/29/23 16:21:00) Chloride: 101 mmol/L (08/29/23::00) CO2: 23 mmol/L (08/29/23::00) AGAP: 17 mEq/L High (08/29/23 16::00) Calcium Lvl: 9.8 mg/dL (08/29/23::00) Troponin: 132.4 pg/mL Critical (08/29/23 16:21:00) Assessment/Plan [...] Ordered: Initial Hospital Care/Day High 75 Minutes 61321 2. Tobacco abuse (Z72.0: Tobacco use) Educate [...] back pain (M54.9: Do (more content not included)...[facility]:Result Comment: Electronically Signed By: Jay SHAW, Durga Villagomez\.br\Date and Time Signed: 08/29/23 18:51 [id number] Evaluation note* Encounter Date Diagnosis Assessment Notes [...] note writ ten by Néstor Coyne MA, Sanding Supervisor. Edited and approved by Dr. Shaquille Remy MD. [employer] Other 11-16-2023 Evaluation note* Encounter Date Diagnosis Assessment Notes Treatment Notes Treatment Clinical Notes Aug, Chronic, continuous use of opioids (ICD-10 - F11.90) [facility] Other 10-19-2023 Evaluation note* Encounter Date Diagnosis [...] note writ ten by Néstor Coyne MA, Sanding Supervisor. Edited and approved by Dr. Shaquille Remy MD. [employer] Other 10-19-2023 Evaluation note* Encounter Date Diagnosis Assessment Notes Treatment Notes Treatment Clinical Notes Jul, Chronic, continuous use of opioids (ICD-10 - F11.90) [employer] Other 09-21-2023 Evaluation note* Encounter Date Diagnosis [...] note writ ten by Néstor Coyne MA, Sanding Supervisor. Edited and approved by Dr. Shaquille Remy MD. [employer] Other 09-21-2023 Evaluation note* Encounter Date Diagnosis Assessment Notes Treatment Notes Treatment Clinical Notes Jun, Chronic, continuous use of opioids (ICD-10 - F11.90) [employer] Other 08-22-2023 Evaluation note* Encounter Date Diagnosis Assessment Notes Treatment Notes Treatment Clinical Notes May, Chronic, continuous use of opioids (ICD-10 - F11.90) [facility] Other 08-22-2023 Evaluation note* Encounter Date Diagnosis [...] May, Other Above note writ ten by Nésotr Coyne MA, Sanding Supervisor. Edited and approved by Dr. Shaquille Remy MD. [employer] Other 07-03-2023 Evaluation note* Encounter Date Diagnosis Assessment Notes Treatment Notes Treatment Clinical Notes Apr, Chronic, continuous use of opioids (ICD-10 - F11.90) [employer] Other 06-27-2023 Evaluation note* Encounter Date Diagnosis Assessment Notes Treatment Notes Treatment Clinical Notes Mar, Chronic, continuous use of opioids (ICD-10 - F11.90) [employer] Other 06-22-2023 Evaluation note* Encounter Date Diagnosis [...] note writ ten by Gabriel Grady LPN, Sanding Supervisor. Edited and approved by Dr. Shaquille Remy MD. [employer] Other 06-22-2023 Evaluation note* Encounter Date Diagnosis Assessment Notes Treatment Notes Treatment Clinical Notes Mar, Chronic, continuous use of opioids (ICD-10 - F11.90) [employer] Other 04-27-2023 Evaluation note* Encounter Date Diagnosis Assessment Notes Treatment Notes Treatment Clinical Notes Jan, Chronic, continuous use of opioids (ICD-10 - F11.90) [employer] Other 04-18-2023 NotePROCEDURE DETAILS Preoperative Diagnosis: Postlaminectomy syndrome, lumbar region, M96.1 Postoperative Diagnosis: Postlaminectomy syndrome, lumbar region, M96.1 Surgeon: Damian Power Resident/Fellow/Other Pan Washer Hand: Josh Fried Procedure: 1. REVISION OF SPINAL CORD STIMULATOR ELECTRODE Anesthesia: No anesthesiologist associated with this case Estimated Blood Loss: Less than 5 mL Findings: Electrode was in the soft tissue and the suture anchors had pulled through the bone Specimens(s) Collected: yes, Wound culture Implants: Reimplanted spinal electrode, [employer] Operative Report: The patient is approximately 6 [...] Completion Last Updated: 25-Jan-2023 15:54 by Damian Power)[facility] [place]-25-[place] NoteHistory & Physical Reviewed: I have [...] Completion Last Updated: 25-Jan-2023 13:21 by Damian Power)[facility] 01-04-2023 Evaluation note* Encounter Date Diagnosis Assessment [...] note writ ten by Gabriel Grady LPN, Sanding Supervisor. Edited and approved by Dr. Shaquille Remy MD. [employer] Other 03-28-2023 Evaluation note* Encounter Date Diagnosis Assessment Notes Treatment Notes Treatment Clinical Notes Dec, Chronic, continuous use of opioids (ICD-10 - F11.90) Dec, Other spondylosis with radiculopathy, lumbar region (ICD-10 - M47.26) [employer] Other 03-07-2023 NotePROCEDURE DETAILS Preoperative Diagnosis: Postlaminectomy syndrome of lumbar region, M96.1 Postoperative Diagnosis: Postlaminectomy syndrome of lumbar region, M96.1 Surgeon: Damian Power Resident/Fellow/Other Pan Washer Hand: Luzma Spence Procedure: 1. THORACIC LAMINECTOMY T8 2. INSERTION OF SPINAL CORD STIMULATOR- T8 Anesthesia: Shaquille Giordano Estimated Blood Loss: Less than 5 mL Findings: None IV Fluids: 2 L Implants: [employer] spinal cord stimulator and pulse generator [...] process was subperiosteally exposed and then a [place] was placed on it. Fluorographic imaging was [...] Completion Last Updated: 14-Dec-2022 10:12 by Damian Power)[facility] 12-14-2022 NoteHistory & Physical Reviewed: I have [...] Completion Last Updated: 14-Dec-2022 10:00 by Damian Power)[facility] 12-08-2022 Evaluation note* Encounter Date Diagnosis Assessment Notes Treatment Notes Treatment Clinical Notes Dec, Chronic, continuous use of opioids (ICD-10 - F11.90) [facility] Other 02-28-2023 Evaluation note* Encounter Date Diagnosis [...] note writ ten by Néstor Coyne MA, Sanding Supervisor. Edited and approved by Dr. Shaquille Remy MD. [employer] Other 02-28-2023 Evaluation note* Encounter Date Diagnosis Assessment Notes Treatment Notes Treatment Clinical Notes Nov, Chronic, continuous use of opioids (ICD-10 - F11.90) [employer] Other 01-31-2023 Evaluation note* Encounter Date Diagnosis [...] note writ ten by Gabriel Grady LPN, Sanding Supervisor. Edited and approved by Dr. Shaquille Remy MD. [employer] Other 01-31-2023 Evaluation note* Encounter Date Diagnosis Assessment Notes Treatment Notes Treatment Clinical Notes Oct, Chronic, continuous use of opioids (ICD-10 - F11.90) [employer] Other 01-10-2023 Evaluation note* Encounter Date Diagnosis Assessment Notes Treatment Notes Treatment Clinical Notes Oct, Lumbar radiculopathy (ICD-10 - M54.16) This is a gentleman who was operated on by me in 2016. Apparently he was not happy with the result went to [place] and had an operation done at the clinic which also did not go well and then had a fusion in [place] that relieved none of the symptoms. He [...] of lumbar spinal fusion (ICD-10 - Z98.1) [employer] Other 12-29-2022 Evaluation note* Encounter Date Diagnosis Assessment Notes Treatment Notes Treatment Clinical Notes Sep, Chronic, continuous use of opioids (ICD-10 - F11.90) Sep, Other spondylosis with radiculopathy, lumbar region (ICD-10 - M47.26) [facility] Other 12-01-2022 Evaluation note* Encounter Date Diagnosis Assessment Notes Treatment Notes Treatment Clinical Notes Sep, Chronic, continuous use of opioids (ICD-10 - F11.90) [facility] Other 12-01-2022 Evaluation note* Encounter Date Diagnosis [...] note writ ten by Gabriel Grady LPN, Sanding Supervisor. Edited and approved by Dr. Shaquille Remy MD. [facility] [employer] Other 11-11-2022 Evaluation note* Encounter Date Diagnosis [...] recommend we proceed with SCS implant with [employer] as previously discussed. I will refer the [...] note writ ten by Néstor Coyne MA, Sanding Supervisor. Edited and approved by Dr. Shaquille Remy MD. [employer] Other 11-08-2022 [facility]* Encounter Date Diagnosis Assessment [...] note writ ten by Néstor Coyne MA, Sanding Supervisor. Edited and approved by Dr. Shaquille Remy MD. [employer] Other 10-27-2022 Evaluation note* Encounter Date Diagnosis Assessment Notes Treatment Notes Treatment Clinical Notes Jul, Chronic, continuous use of opioids (ICD-10 - F11.90) [employer] Other 09-29-2022 Evaluation note* Encounter Date Diagnosis [...] note writ ten by Gabriel Grady LPN, Sanding Supervisor. Edited and approved by Dr. Shaquille Remy MD. [employer] Other 09-01-2022 Evaluation note* Encounter Date Diagnosis [...] note writ ten by Gabriel Grady LPN, Sanding Supervisor. Edited and approved by Dr. Shaquille Remy MD. [facility] [employer] Other 08-01-2022 Evaluation note* Encounter Date Diagnosis [...] medications were refilled today. Saliva performed through [facility] today, will await confirmatory results. May, Other chronic pain (ICD-10 - G89.29) May, Other Above note writ ten by Gabriel Grady LPN, Sanding Supervisor. Edited and approved by Dr. Shaquille Remy MD. [facility] Other 06-23-2022 Evaluation note* Encounter Date Diagnosis [...] note writ ten by Néstor Coyne MA, Sanding Supervisor. Edited and approved by Dr. Shaquille Remy MD. [employer] Other 06-02-2022 Evaluation note* Encounter Date Diagnosis [...] note writ ten by Gabriel Grady LPN, Sanding Supervisor. Edited and approved by Dr. Shaquille Remy MD. [facility] [employer] Other 05-05-2022 Evaluation note* Encounter Date Diagnosis [...] note writ ten by Gabriel Grady LPN, Sanding Supervisor. Edited and approved by Dr. Shaquille Remy MD. [employer] Other 04-08-2022 Evaluation note* Encounter Date Diagnosis Assessment Notes Treatment Notes Treatment Clinical Notes Jan, Other low back pain (ICD-10 - M54.59) [facility] Other 04-05-2022 Evaluation note* Encounter Date Diagnosis [...] note writ ten by Néstor Coyne CMA, Sanding Supervisor. Edited and approved by Dr. Shaqiulle Remy MD. [employer] Other 03-08-2022 Evaluation note* Encounter Date Diagnosis [...] Percocet was refilled today. Saliva performed through [facility] today, will await confirmatory results. Dec, Other chronic pain (ICD-10 - G89.29) Above note written by Gabriel Grady LPN, Sanding Supervisor. Edited and approved by Dr. Shaquille Remy MD. [facility] [employer] Other 02-08-2022 Evaluation note* Encounter Date Diagnosis [...] Above note written by Néstor Coyne CMA, Sanding Supervisor. Edited and approved by Dr. Shaquille Remy MD. [facility] Other 01-06-2022 Evaluation note* Encounter Date Diagnosis [...] Above note written by Néstor Coyne CMA, Sanding Supervisor. Edited and approved by Dr. Shaquille Remy MD. [employer] Other 12-06-2021 Evaluation note* Encounter Date Diagnosis [...] Above note written by Gabriel Grady LPN, Sanding Supervisor. Edited and approved by Dr. Shaquille Remy MD. [facility] [employer] Other 10-07-2021 Evaluation note* Encounter Date Diagnosis [...] note writ ten by Lakshmi Danielson CMA, Sanding Supervisor. Edited and approved by Dr. Shaquille Remy MD. [facility] [employer] Other 09-27-2021 Note [id number]09-21-2021 [id number] 06-29-2021 [facility] SURGERY Clinical Discharge Summary PERSON INFORMATION Name DENISE LANTIGUA Age 41 Years 1980 Sex MALE Language Nepalese PCP KATIE SALGUERO Marital Status Single Med Service Ambulatory Surgery Acct# Arrival 06/29/2021 10:36:00 Visit Reason SURGERY - CYSTOSCOPY BILATERAL URETEROSCOPY HOLMIUM LASER LITHO, BILATERAL STENT PLACEMENT Acuity LOS 018 09:03 Address: [address] [place] [id number] Comment: PROVIDER INFORMATION VITALS INFORMATION Vital Sign Triage Latest Temp Oral Temp Temporal Temp Intravascular Temp Axillary Temp Rectal 02 Sat 98 % 96 % Respiratory Rate Peripheral Pulse Rate Apical Heart Rate Blood Pressure / 97 mmHg / 102 mmHg Comment: MEDICAL INFORMATION Allergy Info: No known allergies Prescriptions Given: acetaminophen-hydrocodone ([place] 5 mg-325 mg oral tablet) 1 tab(s) [...] Medication List: New Medications Printed Prescriptions acetaminophen-hydrocodone ([place] 5 mg-325 mg oral tablet) 1 tab(s) [...] 8 hours. New Medications Printed Prescriptions acetaminophen-hydrocodone ([place] 5 mg-325 mg oral tablet) 1 tab(s) [...] 8 hours. New Medications Printed Prescriptions acetaminophen-hydrocodone ([place] 5 mg-325 mg oral tablet) 1 tab(s) [...] hours as needed fo (more content not included)...[facility] [id number] History general Narrative - Reported* Type Description [...] Decompression surger y of lumbar spine @ [facility] 06/14/18 Hospitalization History FR- Pneumonia 11/2015 [facility] Other 02-16-2017 History general Narrative - Reported* [...] Decompression surger y of lumbar spine @ [facility] 06/14/18 Hospitalization History FR- Pneumonia 11/2015 [facility] Other Evaluation + Plan note Future Appointments Appointment Date:08/12/2022 03:30:00 PM Scheduled Provider:Den[facility] Welch [facility] Future Appointments Appointment Date:11/03/2023 10:00:00 AM Scheduled Provider:Trey Carranza MD Location:[facility] Appointment Type: Open Appointment Date:11/11/2023 11:45:00 AM Scheduled Provider:Denise Welch MD [facility] [place] Appointment Type:[facility] noteNorti2we Other evaluation noteNo InformationNorti2we Other evaluation noteNo assessment information available [facility] Work Phone: evaluhibqz note* Diagnosis Onset Date Resolution Status Chronic pain acute Chronic, continuous use of opioids acute Failed back surgical syndrome acute Lumbar radiculopathy acute Chronic pain acute Chronic, continuous use of opioids acute Failed back surgical syndrome acute Lumbar radiculopathy acute [facility] Work Phone: Evaluation note* Diagnosis Onset Date Resolution Status Chronic pain acute Chronic, continuous use of opioids acute Failed back surgical syndrome acute Lumbar radiculopathy acute Chronic pain acute Chronic, continuous use of opioids acute Failed back surgical syndrome acute Lumbar radiculopathy acute Chronic pain acute Chronic, continuous use of opioids acute Failed back surgical syndrome acute Lumbar radiculopathy acute [facility] Work Phone: Evaluation note* Diagnosis Onset [...] syndrome acute Lumbosacral spondylosis without myelopathy acute [facility] Work Phone: Evaluation note* Diagnosis Onset [...] syndrome acute Lumbosacral spondylosis without myelopathy acute [facility] Work Phone: Evaluation note* Diagnosis Failed back surgical syndrome- Primary Coronary artery disease involving [place] coronary artery of [place] heart without angina pectoris (CMS/HCC) Colon cancer screening Special screening for malignant neoplasms, colon Chronic pain syndrome Recurrent major depressive disorder, in partial remission (HCC) (CMS/HCC) Primary hypertension (CMS/HCC) Unspecified essential hypertension [facility] Diagnosis Chronic pain syndrome- Primary documented in this encounter [facility] general N[facility]ative - [facility]Nooz[facility] [employer] Other Hospital course Narrative No data available for this section [facility] No data available for this section [facility] Dis[facility] instructionsAmbulatory Orders* Referral to Pain Management Time Frame: 03/19/24, Location: [facility] Work Phone: Hospital Discharge instructionsAmbulatory Orders* Referral to Pain Management Time Frame: 04/18/24, Location: None [facility] Work Phone: Progress note No data available for this section [facility] Summary Purpose Family History No Family [...] 2024 11:24am Procedure Findings Note HNO ID: [id number] Author: Rashmi Littlejohn) Luz Maria Service: Neurosurgery Author Type: Physician Type: Brief Op Note Filed: 06/14/2018 2:55 PM Note Text: BRIEF OPERATIVE / PROCEDURE NOTE LOG ID: [id number] SURGERY/PROCEDURE DATE: 06/14/2018 INCISION/PROCEDURE START TIME: 1:16 PM INCISION CLOSE/PROCEDURE END TIME: 02.40 PM SURGEON(S)/PROCEDURALIST(S) AND CHICKEN DRESSER(S): Surgeon(s) and Role: * Laurel Littlejohn) [facility] - Primary Physician Pan Washer Hand: Srinivas Franks SURGERY/PROCEDURE(S): Revision left side L5-S1 diskectomy [...] th radiculopathy, lumbar region (M47.26) Referral Organization [facility] Referring Provider First Name Shaquille Referring Provider Last Name Jonel Referring Provider Specialty Pain Medici ne Referred Organization [facility] urosurgery Referred Provider Triny Guy [address],[address] Referred Provider Specialty Neurological Surgery Referral Priority Routine General Notes Carly John 12:06:08 PM >will refer patient to Dr Guy, p2p has not been turned on yet for her at the [facility] location. I have a message sent out [...] th radiculopathy, lumbar region (M47.26) [facility]erral [facility] Referring Provider First Name Shaquille Referring Provider Last Name Jonel Referring Provider Specialty Pain Medici ne Referred Organization [facility] Referred Provider Shen Abbott [place] [address] [place] [place],[address] Referred Provider Specialty Neuropsychia try Referral Priority [...] section and content) DATE CREATED AUTHOR 11/22/2018 [facility] DATE CREATED AUTHOR AUTHOR'S ORGANIZ ATION 11/22/[address] [facility] DATE CREATED AUTHOR AUTHOR'S ORGANIZ ATION 07/08/2021 [facility] DATE CREATED AUTHOR AUTHOR'S ORGANIZ ATION 01/04/2022 [facility] DATE CREATED AUTHOR AUTHOR'S ORGANIZ ATION 02/27/2022 [facility] dical Specialist DATE CREATED AUTHOR AUTHOR'S ORGANIZ ATION 01/01/2023 [facility] DATE CREATED AUTHOR AUTHOR'S ORGANIZ ATION 01/21/2023 [facility] DATE CREATED AUTHOR AUTHOR'S ORGANIZ ATION 01/29/2023 [facility] DATE CREATED AUTHOR AUTHOR'S ORGANIZ ATION 06/03/2023 [facility] DATE CREATED AUTHOR AUTHOR'S ORGANIZ ATION 07/20/2024 [facility] DATE CREATED AUTHOR AUTHOR'S ORGANIZ ATION 01/22/2025 [facility] dical Specialists EPIC DATE CREATED AUTHOR AUTHOR'S ORGANIZ ATION 03/09/2025 [facility] REASON FOR VISIT (unrecogniz ed section and content) Reason Comments Three-month office visit Care Team (unrecognized sect ion and content) [...] April 18, 2024 End: April 18, 2024 Diet Consultant Relationship Specialty Start Date End Date Katie Salguero DO [address] [place] [address] PCP - General Internal Medicine 02/15/23 Diet Consultant Relationship Specialty Start Date End Date Katie Salguero DO [address] [place] [address] PCP - General Internal Medicine 02/15/23 Goals (unrecognized section and content) Goals may [...] BE BASED ON THE PRIMARY CLINICAL RECORDS. [employer] provides no warranty or guarantee of the accuracy or completeness of information in this document.
[2025-03-10 21:37] VITALS: BP 117/82; PULSE 69; TEMP 36.4; O2SAT 100; BMI 28.0
--- NOTE | 2025-03-10 22:18 | ED.GENADUL1 ---
HPI HPI - General Adult General Chief complaint: Weakness Stated complaint: HYPOTENSION Time Seen by Provider: 03/10/25 22:13 Source: patient Mode of arrival: walk-in Limitations: no limitations History of Present Illness HPI narrative: past history of OH one year ago. On and off chest pain for the past year. States he took his BP tonight before taking his antihypertensive medication. States his BP was 160/115. took his medication. May be an hour later felt weak. took his BP and it was 82 systolic and repeat 78 systolic. She was concerned he may past out. He has chest pain 03/19. No shortness of breath, nausea or diaphoresis. No fever Related Data Home Medications ?Medication ?Instructions ?Recorded ?Confirmed aspirin 81 mg tablet,delayed 81 mg PO QDAY 09/07/23 03/10/25 release atorvastatin 80 mg tablet 80 mg PO .qhs 09/07/23 03/10/25 carvedilol 3.125 mg tablet 3.125 mg PO Q12H 09/07/23 03/10/25 cyclobenzaprine 10 mg tablet 10 mg PO Q8H PRN back pain 09/07/23 03/10/25 furosemide 20 mg tablet 20 mg PO QDAY PRN edema 09/07/23 03/10/25 gabapentin 300 mg capsule 900 mg PO Q8H 09/07/23 03/10/25 losartan 50 mg tablet 50 mg PO QDAY 09/07/23 03/10/25 clopidogrel 75 mg tablet 75 mg PO QDAY 03/10/25 03/10/25 isosorbide mononitrate 60 mg 60 mg PO QDAY 03/10/25 03/10/25 tablet,extended release 24 hr nitroglycerin 0.4 mg sublingual 0.4 mg buccal Q5M PRN chest pain 03/10/25 03/10/25 tablet pantoprazole 40 mg tablet,delayed 40 mg PO QDAY 03/10/25 03/10/25 release ranolazine 500 mg tablet,extended 500 mg PO Q12H 03/10/25 03/10/25 release,12 hr Allergies Allergy/AdvReac Type Severity Reaction Status Date / Time No Known Drug Allergies Allergy Verified 03/10/25 21:43 Review of Systems ROS Status of ROS 10 or more systems reviewed and unremarkable except as noted in history and below PFSH PFSH Social History Smoking status: Current every day smoker Little interest or pleasure in doing things: not at all Feeling down, depressed, or hopeless: not at all Exam Constitutional Vital Signs, click to edit/add: Last Vital Signs Temp 97.5 F L 03/10/25 21:37 Pulse 64 03/11/25 01:38 Resp 16 03/11/25 01:38 BP 95/59 03/11/25 01:38 Pulse Ox 96 03/11/25 01:38 O2 Del Method Room Air 03/11/25 01:38 Common normals: no apparent distress, average body habitus, oriented x3, no limitations, healthy appearing, alert and well nourished [facility] Common normals: normocephalic and head/scalp atraumatic Eye Common normals: PERRL, EOMs intact bilaterally and conjunctivae normal Respiratory Common normals: normal respiratory effort, no retractions, no use of accessory muscles and clear to auscultation bilaterally Cardio Common normals: regular rate, regular rhythm, S1 normal heart sound and S2 normal heart sound GI Common normals: Normal to inspection, nondistended, normoactive bowel sounds present, soft to palpation and non-tender Extremity Common normals: normal to inspection and full ROM Neuro Common normals: oriented x3, CN's II-XII intact bilaterally, moves all extremities and no focal motor deficits Psych Appearance: grossly normal Course Vital Signs Vital signs: Vital Signs Temperature 97.5 F L 03/10/25 21:37 Pulse Rate 69 03/10/25 21:37 Respiratory Rate 20 03/10/25 21:37 Blood Pressure 117/82 03/10/25 21:37 Pulse Oximetry 100 03/10/25 21:37 Temperature 97.5 F L 03/10/25 21:37 Pulse Rate 64 03/11/25 01:38 Respiratory Rate 16 03/11/25 01:38 Blood Pressure 95/59 03/11/25 01:38 Pulse Oximetry 96 03/11/25 01:38 Oxygen Delivery Method Room Air 03/11/25 01:38 Medical Decision Making MDM Narrative Medical decision making narrative: patient has past history of HTN. Presents with hypotension and near syncope. Has chest pain but admits he often has chest pain for the past year. BP systolic at home got to low of 78 systolic. Given liter of NS and BP is 95 systolic. Serial troponin neg and d-dimer neg. Unclear why he is hypotensive. Discussed with hospitalist and will plan obs admission Lab Data Labs: Lab Results 03/10/25 03/11/25 Range/Units 22:15 01:05 WBC 12.1 H (4.0-11.0) 10^3/uL RBC 5.02 (4.70-6.10) 10^6/uL Hgb 14.6 (14.0-18.0) g/dL Hct 42.7 (42.0-54.0) % MCV 85.1 (80.0-94.0) fL MCH 29.1 (25.9-34.0) pg MCHC 34.2 (29.9-35.2) g/dL RDW 14.2 (11.0-15.0) % Plt Count 290 (150-450) 10^3/uL MPV 10.5 (9.5-13.5) fL Neut % (Auto) 64.4 (43.0-75.0) % Lymph % (Auto) 27.7 (20.5-60.0) % [place] % (Auto) 4.7 (1.7-12.0) % Eos % (Auto) 1.8 (0.9-7.0) % Baso % (Auto) 1.1 (0.2-2.0) % Neut # (Auto) 7.8 H (1.4-6.5) 10^3/uL Lymph # (Auto) 3.4 (1.2-3.8) 10^3/uL [place] # (Auto) 0.6 (0.3-0.8) 10^3/uL Eos # (Auto) 0.2 (0.0-0.7) 10^3/uL Baso # (Auto) 0.1 (0.0-0.1) 10^3/uL Abs Immat Gran (auto) 0.04 H (0.00-0.03) 10^3/uL Imm/Tot Granulo (auto) 0.3 (0.0-0.5) % D-Dimer 0.34 (<=0.59) mg/L FEU Sodium 139 (136-145) mmol/L Potassium 3.5 (3.5-5.1) mmol/L Chloride 101 (98-107) mmol/L Carbon Dioxide 26.4 (21.0-32.0) mmol/L Anion Gap 15.1 BUN 13.0 (7.0-18.0) mg/dL Creatinine 1.39 H (0.70-1.30) mg/dL Est GFR ( Amer) >60 (>=60 mL/min/1.73m^2) Est GFR (Non-Af Amer) 55 L (>=60 mL/min/1.73m^2) BUN/Creatinine Ratio 9.4 Glucose 163 H (74-106) mg/dL Calcium 9.4 (8.5-10.1) mg/dL Troponin I High Sens 13.2 10.2 (4.0-76.1) pg/mL NT-Pro-B Natriuret Pep 177.0 (<=450.0) pg/mL Discharge Plan Discharge Chief Complaint: Weakness Clinical Impression: Acute hypotension Patient Disposition: Admitted as Observation
[2025-03-10] MEDS: 0.9 % SODIUM CHLORIDE 1,000 ML 999 ML IV (22:32)
[2025-03-10 22:53] LABS: Basophils Absolute Auto 0.1 10^3/uL (0.0-0.1); Basophils Percent Auto 1.1 % (0.2-2.0); Eosinophils Absolute Auto 0.2 10^3/uL (0.0-0.7); Eosinophils Percent Auto 1.8 % (0.9-7.0); Hematocrit 42.7 % (42.0-54.0); Hemoglobin 14.6 g/dL (14.0-18.0); Immature Granulocytes Abs Auto 0.04 10^3/uL (0.00-0.03); Immature Granulocytes Pct Auto 0.3 % (0.0-0.5); Lymphocytes Absolute Auto 3.4 10^3/uL (1.2-3.8); Lymphocytes Percent Auto 27.7 % (20.5-60.0); Mean Corpuscular HGB Conc 34.2 g/dL (29.9-35.2); Mean Corpuscular Hemoglobin 29.1 pg (25.9-34.0); Mean Corpuscular Volume 85.1 fL (80.0-94.0); Mean Platelet Volume 10.5 fL (9.5-13.5); Monocytes Absolute Auto 0.6 10^3/uL (0.3-0.8); Monocytes Percent Auto 4.7 % (1.7-12.0); Neutrophils Absolute Auto 7.8 10^3/uL (1.4-6.5); Neutrophils Percent Auto 64.4 % (43.0-75.0); Platelet Count 290 10^3/uL (150-450); Red Blood Count 5.02 10^6/uL (4.70-6.10); Red Cell Distribution Width 14.2 % (11.0-15.0); White Blood Count 12.1 10^3/uL (4.0-11.0)
[2025-03-10 23:07] LABS: D Dimer 0.34 mg/L FEU (<=0.59)
[2025-03-10 23:16] LABS: Anion Gap 15.1; BUN Creatinine Ratio 9.4; Calcium 9.4 mg/dL (8.5-10.1); Carbon Dioxide 26.4 mmol/L (21.0-32.0); Chloride 101 mmol/L (98-107); Estimated GFR (African America >60 (>=60 mL/min/1.73m^2); Estimated GFR (Non-African Ame 55 (>=60 mL/min/1.73m^2); Glucose 163 mg/dL (74-106); Potassium 3.5 mmol/L (3.5-5.1); Sodium 139 mmol/L (136-145); Troponin I High Sensitivity 13.2 pg/mL (4.0-76.1)
[2025-03-10 23:52] VITALS: BP 90/60; PULSE 65; O2SAT 96
[2025-03-11] VITALS (9 sets, daily range): BP systolic 90–135; BP diastolic 59–89; PULSE 59–71; TEMP 36.4; O2SAT 92–96; BMI 27.0
[2025-03-11 01:26] LABS: Troponin I High Sensitivity 10.2 pg/mL (4.0-76.1)
--- OUTSIDE RECORDS SUMMARY | 2025-03-11 02:16 | XMS_ITS | CCD ---
Author Organization [facility] Care Team Providers Care Soc Analyst Name Role Phone LAUREL LOERA) Admitting Un available LAUREL LOERA () Attending Un available LAUREL LOERA) Referring Un available NATALI SCHNEIDER (PA) Attending Unavaila KATIE Ye Referring Unavailab [...] Un available KATIE SALGUERO Primary Care Physician [phone] Shaquille Remy Unavailable DO Katie Salguero Primary Care Provider MD Shaquille Remy Attending Provider [phone] Geovany Valle Unavailable [facility], DR BANDA Primary Care Unavailable ELISHA ., DR CHAUDHRY Admitting Unavailable ELISHA ., DR CHAUDHRY Attending Unavailable ELISHA ., DR CHAUDHRY Consulting Unavailable VASCHAK, DR WILSON Consulting Unavailable Vaschak, Dr. Katie Vera [facility] Thien Roberson Attending Thien Roberson Attending Thien Roberson Referring Thien Roberson Admitting Unava ilable Noemy, Dr. Katie Vera [facility] Thien Roberson Admitting Aidava Thien [place] Attending Thien Roberson Referring Unava ilable Noemy, Dr. Katie Vera [facility] Thien Roberson Attending Jared Salguero, Dr. Katie Vera [facility] Aidava Katie Raymundo [facility] Unavailable Shaquille Remy Attending Unavailable Shaquille Remy Admitting Unavailable Katie Salguero [facility] Unavailable Shaquille Remy Attending Unavailable Shaquille Remy Admitting Unavailable DO Katie Salguero [facility] Provider [phone] MD Shaquille Remy Attending Provider Denise Welch Attending Unavaila ble NONE, XXXX Referring Unavailable DO Dora RHODES Admitting Unavailabl Durga Rodríguez Attending Unavailable [facility], XXXX Consulting Unavailable Frank SERRANO Consulting [...] sources) montelukast; Translations: [MONTELUKAST] Drug Allergy 2 [facility] (1 source) montelukast Drug Allergy 2 [facility] Repository (1 source) montelukast Drug Allergy [facility] V[employer]rapies Other (1 source) No Known Medication Allergies; Translations: [No Known Medication Allergies] Propensity to adverse reactions (disorder) [facility] Repository (4 sources) buPROPion; Translations: [BUPROPION] Drug [...] bedtime), # 30 tab(s), Refills(s) 1, Pharmacy: [id number], 175.3, cm, 07/18/24 11:06:00 [...] BID, # 60 tab(s), Refills(s) 6, Pharmacy: [facility]/pharmacy #[id number], 175, cm, 09/29/23 15:16:00 EST, Height/Length Dosing, 73.7, kg, 09/29/23 15:16:00 EST, Weight Dosing Start Date: 11/11/23 Status: Ordered Start: 08-31-2023 take 1 tablet by aziza twice daily carvedilol 3.125 mg Tab 3.125 mg = 1 tab(s), Oral, BID, # 60 tab(s), Refills(s) 0, Pharmacy: [facility]/pharmacy #[id number], 175, cm, 08/29/23 16:51:00 EST, Height/Length [...] MG tablet Indications: Coronary artery disease involving [place] coronary artery of [place] heart without angina pectoris (CMS/HCC) Take 1 tablet (75 mg) by mouth Daily 90 tablet 3 04/17/2024 Active furosemide 20 mg oral tablet (7 sources) Loop Diuretic Start: 11-11-2023 take 1 tablet by mouth once daily Lasix 20 mg Tab 20 mg = 1 tab(s), Oral, Daily, # 30 tab(s), Refills(s) 6, Pharmacy: [facility]/pharmacy #[id number], 175, cm, 09/29/23 15:16:00 EST, Height/Length Dosing, 73.7, kg, 09/29/23 15:16:00 EST, Weight Dosing Start Date: 11/11/23 Status: Ordered Start: 08-31-2023 take 1 tablet by aziza once daily Lasix 20 mg Tab 20 mg = 1 tab(s), Oral, Daily, # 30 tab(s), Refills(s) 0, Pharmacy: [facility]/pharmacy #[id number], 175, cm, 08/29/23 16:51:00 EST, Height/Length [...] hr tablet Indications: Coronary artery disease involving [place] coronary artery of [place] heart without angina pectoris (CMS/HCC) Take 1 tablet (60 mg) by mouth Daily 07/23/2024 Active Start: 09-29-2023 End: 07-23-2024 take 1 tablet by mouth once daily isosorbide mononitrate ER (Imdur) 30 MG 24 hr tablet Indications: Coronary artery disease involving [place] coronary artery of [place] heart without angina pectoris (CMS/HCC) Take 1 [...] BID, # 60 tab(s), Refills(s) 0, Pharmacy: [facility]/pharmacy #[id number], 175, cm, 12/09/23 1:00:00 EST, Height/Length Dosing, 75.7, kg, 12/09/23 1:00:00 EST, Weight Dosing Start Date: 12/09/23 Status: Ordered Start: 11-11-2023 losartan 50 mg Tab 25 mg = 0.5 tab(s), Oral, Daily, # 15 tab(s), Refills(s) 6, [id number], 175, cm, 09/29/23 15:16:00 EST, Height/Length Dosing, 73.7, kg, 09/29/23 15:16:00 EST, Weight Dosing Start Date: 11/11/23 Status: Ordered Start: 08-31-2023 losartan 50 mg Tab 25 mg = 0.5 tab(s), Oral, Daily, # 30 tab(s), Refills(s) 0, [id number], 175, cm, 08/29/23 16:51:00 EST, Height/Length Dosing, 83.7, kg, 08/29/23 16:51:00 EST, Weight Dosing Start Date: 08/31/23 Status: Ordered nitroglycerin 0.4 mg sublingual tablet (5 sources) Nitrate Vasodilator Start: 05-10-2024 nitroglyce rin 0.4 mg sublingual Tab Refills(s) 0 Start Date: 05/10/24 Status: Ordered Start: 12-16-2023 nitroglycerin (Nitrostat) 0.4 MG SL tablet Indications: Coronary artery disease involving [place] coronary artery of [place] heart with angina pectoris (CMS/HCC) Place 1 [...] hr tablet Indications: Coronary artery disease involving [place] coronary artery of [place] heart with angina pectoris (CMS/HCC) Take 1 tablet (500 mg) by mouth in the morning and 1 tablet (500 mg) before bedtime. Do not crush, chew, or split.. 60 tablet 11 12/14/2023 Active Start: 12-21-2023 take 1 tablet by aziza th twice daily Ranexa 500 mg Tab-ER 500 mg = 1 tab(s), Oral, BID, # 60 tab(s), Refills(s) 3, [id number], 175, cm, 09/29/23 15:16:00 EST, Height/Length [...] BID, # 60 tab(s), Refills(s) 6, [id number], 175, cm, 09/29/23 15:16:00 EST, Height/Length Dosing, 73.7, kg, 09/29/23 15:16:00 EST, Weight Dosing Start Date: 11/11/23 Status: Ordered Start: 08-31-2023 take 1 tablet by [facility] twice daily ticagrelor 90 mg oral tablet 90 mg = 1 tab(s), Oral, BID, # 60 tab(s), Refills(s) 0, [id number], 175, cm, 08/29/23 16:51:00 EST, Height/Length [...] rk excuse, No work until 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-up with structural iron 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 in approximately 2 weeks., Print Requisition, Supply [...] day(s), # 60 cap(s), Refills(s) 2, Pharmacy: [id number], 175.3, cm, 05/10/24 13:57:00 [...] Coronary atherosclerosis; Translations: [Atherosclerotic heart disease of [place] coronary artery without angina pectoris] Onset: 09-06-2023 [...] 01-25-2023 Chronic Other aftercare (2 sources) Other alf (current) drug therapy; Translations: [OTH PRISON CURRENT DRUG THERAPY] Onset: 12-29-2022 Episodic Other aftercare (1 source) Long-term current use of drug therapy; Translations: [Other alf (current) drug therapy] Onset: 12-09-2023 Episodic Other [...] Range Facility Office Visiton 03-07-2025 Follow-up visit [id number] GrzegorzAfrica morrison P 1980 M Date Provider Department Center 03/07/2025 Maykel-BELL BALLARD HAILEY Dominguez Family History Problem Relation Age of Onset Heart attack Mother 56 Heart attack Maternal Grandfather Family Status - Relation Status Age at Mother Maternal Grandfather Level of Service:33597 [place] OFFICE/OUTPATIENT ESTABLISHED MOD MDM 30 MIN Normal [facility] Office Visiton 12-17-2024 Follow-up visit [id number] GrzegorzAfrica morrison P 1980 M [facility] Provider Department Center 12/17/2024 ISADORA BAUMANN Family History Problem Relation Age of Onset Heart attack Mother 56 Heart attack Maternal Grandfather Family Status - Relation Status Age at Mother Maternal Grandfather Level of Service:95173 [place] OFFICE/OUTPATIENT ESTABLISHED LOW MDM 20 MIN Normal [facility] Office Visiton 06-15-2024 Follow-up visit [id number] Africa Lantigua P [address] [facility] Provider Department Center 06/15/2024 ISADORA BAUMANN Family History Problem Relation Age of Onset Heart attack Mother 56 Heart attack Maternal Grandfather Family Status - Relation Status Age at Mother Maternal Grandfather Level of Service:31300 [place] OFFICE/OUTPATIENT ESTABLISHED LOW MDM 20 MIN Normal [facility] 05-24-2024 --- Attestation signed by Isadora Townsend [...] to proceed. Signed, Berna Tabares MD PGY-4 Retail Beauty Specialist Pager: [phone] [facility] NURSNOTEon 05-24-2024 NURSNOTE RN educated pt on d/ c instructions. RN encouraged pt to voice any questions or concerns. Pt verbalizes no questions or concerns at this time. Pt was wheeled off of unit with all of belongings. [facility] HPon 05-04-2024 Cardiology Clinic No te [...] Primary hypertension 4. Coronary artery disease involving [place] coronary artery of [place] heart, unspecified whether angina present 5. Tobacco [...] defibrillation, need (more content not included)... Normal [facility] Office Visiton 05-04-2024 Follow-up visit [id number] Africa Lantigua P 1980 M Date Provider Department Center 05/04/2024 ISADORA BAUMANN Family History Problem Relation Age of Onset Heart attack Mother 56 Heart attack Maternal Grandfather Family Status - Relation Status Age at Mother Maternal Grandfather Level of Service:15106 [place] OFFICE/OUTPATIENT ESTABLISHED MOD MDM 30 MIN Normal [facility] Orders Onlyon 05-04-2024 Orders Only [id number] Africa Lantigua n P 1980 M Date Provider Department Center 05/04/2024 JAVIER SANDERS Family History Problem Relation Age of Onset Heart attack Mother 56 Heart attack Maternal Grandfather Family Status - Relation Status Age at Mother Maternal Grandfather Normal [facility] Office Visiton 04-06-2024 Follow-up visit [id number] Africa Lantigua P 1980 M Date Provider Department Center 04/06/2024 ISADORA BAUMANN Family History Problem Relation Age of Onset Heart attack Mother 56 Heart attack Maternal Grandfather Family Status - Relation Status Age at Mother Maternal Grandfather Level of Service:11154 [place] OFFICE/OUTPATIENT NEW MODERATE MDM 45 MINUTES Normal [facility] Referrals Officeon Referrals Office [id number] TIFF Normal [facility] MR THORACIC SPINE WO CONTRAS Ton [...] Anion gap [Moles/Vol] 12 mmol/L Normal 6-16 [facility] Comment on above: Performed By: #### 2 473641, 6834320, 94559265, 01069514, [id number] ####[facility] [address] [place] [address] Calcium [Mass/Vol] 9.4 mg/dL Normal 8.9-11.1 [facility] Comment on above: Performed By: #### 2 153430, 6546955, 06195906, 36059350, 29315958 ####[facility] [address] [place] [address] Chloride [Moles/Vol] 105 mmol/L Normal 101-111 [facility] Comment on above: Performed By: #### 2 319338, 2796521, 32240988, 65214815, 93449195 ####[facility] [address] [place] [address] CO2 [Moles/Vol] 26 mmol/L Normal 21-31 [facility] Comment on above: Performed By: #### 2 876833, 0044482, 57753326, 41648691, 59999235 ####[facility] [address] [place] [address] Creatinine [Mass/Vol] 1.6 mg/dL High 0.5-1.3 [facility] Comment on above: Performed By: #### 2 686028, 4789730, 58216395, 33629579, 20735146 ####[facility] [address] [place] [address] Glucose [Mass/Vol] 110 mg/dL Normal 55-199 [facility] Comment on above: Performed By: #### 2 423654, 6269395, 18378051, 24697808, 49131819 ####[facility] [address] [place] [address] Potassium [Moles/Vol] 4.1 mmol/L Normal 3.5-5.3 [facility] Comment on above: Performed By: #### 2 105294, 4714579, 67360475, 27640370, 16294141 ####[facility] [address] [place] [address] Sodium [Moles/Vol] 139 mmol/L Normal 135-145 [facility] Comment on above: Performed By: #### 2 185060, 7992833, 30633998, 96594658, 13282019 ####[address] [address] Urea nitrogen [Mass/Vol] 15 mg/dL Normal 5-21 [facility] Comment on above: Performed By: #### 2 643843, 7137344, 29291520, 52603790, 26132635 ####[address] [address] Urea nitrogen/Creatinine [Mass ratio] 9 No Units Low 10-20 [facility] Comment on above: Performed By: #### 2 981469, 1359129, 42892587, 94684829, 95720442 ####[address] [address] CBC w/ Auto Diffon 4 Basophils/100 WBC (Bld) 1.0 % Normal 0.0-2.0 [facility] Comment on above: Performed By: #### 2 814571, 2980192, 60291881, 72988435, 71235519 ####[address] [place] [address] Basophils/Leukocytes Auto (Bld) [Pure # fraction] 0.1 E9/L Normal 0.0-0.2 [facility] Comment on above: Performed By: #### 2 387595, 1392373, 31605735, 20752689, 73992469 ####[facility] [address] [place] [address] Eosinophils (Bld) [#/Vol] 0.6 E9/L High 0.0-0.5 [facility] Comment on above: Performed By: #### 2 372069, 0891914, 37492428, 46954299, 76297607 ####[address] [place] [address] Eosinophils/100 WBC (Bld) 5.8 % Normal 0.0-8.0 [facility] Comment on above: Performed By: #### 2 927546, 4678821, 22093157, 55622318, 01861034 ####[address] [place] [address] Erythrocyte distribution width (RBC) [Ratio] 16.4 % High 10.9-14.2 [facility] Comment on above: Performed By: #### 2 950361, 1062374, 18579269, 31976766, 28351394 ####[address] [place] [address] Hematocrit (Bld) [Volume fraction] 39.8 % Normal 37.7-49.0 [facility] Comment on above: Performed By: #### 2 648735, 8106735, 31003647, 56469503, 52542405 ####[address] [place] [address] Hemoglobin (Bld) [Mass/Vol] 13.8 g/dL Normal 13.5-17.5 [facility] Comment on above: Performed By: #### 2 128827, 1131313, 92024748, 79325477, 64276678 ####[address] [place] [address] Lymphocytes (Bld) [#/Vol] 3.1 E9/L Normal 1.0-4.0 [facility] Comment on above: Performed By: #### 2 175564, 7328950, 59370036, 69268577, 30415923 ####[facility] [address] [place] [address] Lymphocytes/100 WBC (Bld) 28.6 % Normal 14.0-50.0 [facility] Comment on above: Performed By: #### 2 385951, 1053133, 99920736, 17509033, 05352935 ####[address] [place] [address] MCH (RBC) [Entitic mass] 29.9 pg Normal 27.0-34.0 [facility] Comment on above: Performed By: #### 2 100389, 6322388, 32704799, 75103569, 66979573 ####[address] [address] MCHC (RBC) [Mass/Vol] 34.7 g/dL Normal 31.4-36.0 [facility] Comment on above: Performed By: #### 2 137996, 2123964, 21577592, 62474037, 54999371 ####[address] [address] MCV (RBC) [Entitic vol] 86.2 fL Normal 80.0-100.0 [facility] Comment on above: Performed By: #### 2 749305, 6549594, 54176191, 32144213, 47757857 ####[address] [address] Monocytes (Bld) [#/Vol] 0.6 E9/L Normal 0.2-1.0 [facility] Comment on above: Performed By: #### 2 770998, 9895891, 95938416, 84854438, 99530679 ####[address] [address] Neutrophils (Bld) [#/Vol] 6.3 E9/L Normal 2.0-7.5 [facility] Comment on above: Performed By: #### 2 719385, 8934800, 10726876, 65157586, 72857435 ####[address] [place] [address] Neutrophils/100 WBC (Bld) 59.1 % Normal 36.0-75.0 [facility] Comment on above: Performed By: #### 2 898997, 3832915, 88598284, 93078735, 50888827 ####[address] [place] [address] Platelet mean volume (Bld) [Entitic vol] 8.2 fL Normal 6.4-10.8 [facility] Comment on above: Performed By: #### 2 763803, 0205175, 58796787, 24357564, 60782349 ####[address] [address] Platelets (Bld) [#/Vol] 308.0 E9/L Normal 150.0-500.0 [facility] Comment on above: Performed By: #### 2 514465, 9571376, 11382218, 28024607, 72571898 ####[address] [address] RBC (Bld) [#/Vol] 4.6 E12/L Normal 4.3-5.9 [facility] Comment on above: Performed By: #### 2 880629, 9913840, 60373174, 97534900, 53783470 ####[address] [address] WBC corrected for nucl RBC Auto (Bld) [#/Vol] 10.7 E9/L Normal 4.0-11.0 [facility] Comment on above: Performed By: #### 2 856914, 9525583, 79726187, 99730887, 75187964 ####[address] [place] [address] CHEMISTRYOrdered By: SYSTEM SYSTEM on 12-09-2023 Troponin [...] High Sensitivity Troponin I Instructions For Use, [employer], May 2018) Troponin 11.80 pg/mL Low 15.90 - 38.40 pg/mL [facility] Comment on above: Interpretive Data: T he 95% CI (Confidence Interval) PPV (Positive Predictive Value) for myocardial infarction in females is 38 pg/mL, in males 51 pg/mL. The results should be used in conjunction with clinical conditions of myocardial infarction. (Access High Sensitivity Troponin I Instructions For Use, [employer], May 2018) Cholesterol [Mass/Vol] 171 mg/dL Normal [...] High Sensitivity Troponin I Instructions For Use, [employer], May 2018) Anion gap [Moles/Vol] 12 mmol/L [...] [Mass fraction] 6.1 % High <=5.9% [facility] ChemAutoSS COAGULATIONOrdered By: Isi Longoria on 12-09-2023 aPTT Coag (PPP) [Time] 34.7 s Normal 25.1 - 36.5 second(s) [facility] Auto Coag Comment on above: Interpretive Data: [...] same coagulation reagent and instrumentation as [facility]. Currently there are no coagulation studies available worldwide for children to 14 days, and no normal ranges. Heparin therapeutic range (represented by Anti-Factor Xa activity of 0.2 - 0.4 U/mL) corresponds to PTT of 56.6 - 109.0 sec. INR Coag (PPP) [Relative time] 0.97 {INR} Invalid Interpretation Code [facility] Auto [facility]ag Comment on above: Interpretive Data: I NR results are specifically intended to assess patients stabilized on long-term Anticoagulation therapy suggested INR s Less Intensive Anticoagulation 2.0 3.0 Conventional Range 3.0 4.5 PT Coag (PPP) [Time] 10.9 s Normal 9.4 - 1 2.5 second(s) [facility] Auto Coag Comment on above: Interpretive Data: [...] same coagulation reagent and instrumentation as [facility]. Currently there are no coagulation studies available worldwide for children to 14 days, and no normal ranges. Consent for Treatmenton Consent for Treatment [id number] IFF Normal [facility] Consultation Noteon 12-09-19 Consultation Note Chief [...] not improve he sought medical attention at [facility] emergency room. In the emergency room an [...] STEMI due to plaque rupture and acute SD of the mid LAD, status post primary [...] patient will additionally be counseled by the High Lead [employer]er team and in follow-up. [1] Subsequent echocardiogram [...] thoughts. Assessment (more content not included)... Normal [facility] Comment on above: Result Comment: Elec tronically Signed By: ZACH RODNEY, Frank Westbrook\.anne\Date and Time Signed: 12/09/23 08:13 EST Discharge Instructionson Discharge Instructions [id number] IFF Normal [facility] Discharge Note-Nursingon Discharge Note-Nursing DENISE LANTIGUA :1980 Visit Date:12/09/2023 Inpatient Discharge Instructions Your Care Team Admitting Physician - Dora RHODES DO Physician - [facility] Cardio, XXXX ZACH RODNEY, Frank Westbrook Reason for Your Visit Pt. reports high blood pressure that past few days and is now associatted with chest pain. Your Diagnosis Chest pain CAD in [place] artery Hypertensive emergency Smoker Chronic back pain On deep vein thrombosis (DVT) prophylaxis Chest pain Shortness of breath Tests Performed BMP -- Results Pending -- CBC w/ Auto Diff -- Results Pending -- Echo Transthoracic Complete XR Chest Single View Please visit your patient portal for your results or contact your primary care physician. This Is Your Medications List [facility] Prescription (work excuse) acetaminophen-oxycodone (Percocet 325 mg-5 [...] Pending Diagnostic Test Results None Pharmacy Information [facility] [place] Discharge Instructions Please return to ER if symptoms change or worsen. Please take medication as prescribed. Please monitor blood pressure. Please follow-up with cardiology New Follow Up Appointments after Discharge Follow Up with KATIE SALGUERO When: 12/14/2023 10:30 AM EST Where: [address] [place] [address]- Business (1) Follow Up with Rebekah RODNEY, Denise Valdez When: Within 1 to 2 weeks Comments: Call for followup appointment Call physician if symptoms worsen Where: [place] [address]- Business (1) Medications What How Much When Instructions Next Dose Changed losartan (losartan 25 mg Tab) 1 Tablets By Mouth 2 times a day Pickup at [facility]/pharmacy #[id number] 12/08 @ 9 PM Unchanged acetaminophen-oxycodone (Percocet [...] excuse) 0 No work until follow-up with structural iron erector in approximately 2 weeks. N/A Unchanged ranolazine (Ranexa 500 mg Tab-ER) 1 Tablets By Mouth 2 times a day 32 @ 9 AM Unchanged ticagrelor (ticagrelor 90 mg oral tablet) 1 Tablets By Mouth 2 times a day 12/08 @ 9 PM Pharmacy Information [facility]/pharmacy #[id number]: [address], [place] [id number] [phone] What When Comments Stop Taking albuterol Test [...] (12/09/23 01:05:00) (more content not included)... Normal [facility] ED Clinical Summaryon 2023 ED Clinical Summary (Inserted Image. Aida ble to display) [id number] ED Clinical Summary Person Information Name: DENISE LANTIGUA [place] Age: 43 Years : 1980 Sex: Male Language: Guinean PCP: KATIE SALGUERO DO Marital Status: Single Visit Id: Visit Reason: Shortness of breath; Chest pain; HIGH BP - CHEST PAIN/ LEFT ARM PAIN Speciality: Acuity: 2 Enc Type: Observation Med Service: Emergency Arrival: 12/09/2023 00:52:27 Discharge: LOS: 000 01:43 Checkin: 12/09/2023 00:52:27 Checkout: 12/09/2023 02:35:47 Dispo Type: Admitted as IP to this [facility] EVENTS: Event Name Event Status Request [...] 02:10:12 Patient Care Request 12/09/2023 02:10:12 ADDRESS: [address] [place] [phone] PHYS DOC NOTES: MEDICAL INFORMATION: Prescriptions Given: [...] excuse) 0. No work until follow-up with structural iron erector in approximately 2 weeks.. Refills: 0. ranolazine (Ranexa 500 mg Tab-ER) 1 Tablets By Mouth 2 times a day. Refills: 3. ticagrelor (ticagrelor 90 mg oral tablet) 1 Tablets By Mouth 2 times a day. Refills: 6. PATIENT EDUCATION INFORMATION: Instructions: Follow up: DIAGNOSIS: Chest pain; Hypertensive emergency Normal [facility] ED Note-Physicianon 12-09-19 ED Note-Physician Basic Information Time Seen: Timmy SHAW Valentin Adan 12/09/2023 00:55 Chief Complaint Pt. reports high blood pressure that past few days and is now associatted with chest pain. History of Present Illness HPI: Patient is a 43-year-old male with past medical history of of SD with stent, hypertension, hyperlipidemia, CHF who presents [...] and Complexity of Problems Differential Diagnosis: [] [facility] Data External documents reviewed: N/A My EKG [...] Tab, 0. (more content not included)... Normal [facility] Comment on above: Result Comment: Elec tronically Signed By: Valentin Warner DO\.br\Date and Time Signed: 12/09/23 02:05 EST ED Patient Education Noteon 12-09-2023 ED Patient Education Note Normal Crystal [facility] ED Patient Summaryon 024 ED Patient Summary (Inserted Image. Aida ble to display) [place] [id number] Patient Discharge Instructions Person Information Name: DENISE LANTIGUA Age: 43 Years Arrival Date: 12/09/2023 00:52:27 Discharge Diagnosis: Chest pain; Hypertensive emergency Primary Care Physician: KATIE SALGUERO DO Provider Information Primary Provider: Valentin Warner DO Advanced Beam Builder Helper:None The exam and treatment you received in the Emergency Department were for an urgent problem and are not intended as complete care. It is important that you follow up with a doctor, nurse practitioner, or physician?s fundraising assistant for ongoing care. If your symptoms [...] opioids can be used to help relieve mkxvknkh-bd-oktjby pain and are often prescribed following a [...] struggling with addiction, tell your health care nurse rn and ask for guidance or call [facility] National Helpline at 8-169-276-HELP. v Source: [place] Department of Health and Human Services/Center for Disease Control & Prevention [facility] Medications Given: Medication Dose Route asp (more content not included)... Normal [facility] HEMATOLOGYOrdered By: SYSTEM SYSTEM on 12-09-2023 [...] Normal 4.0 - 11.0 E9/L Remisol Heme [id number] 12-09-2023 HbA1c (Bld) [Mass fraction] 6.1 % High <=5.9 [facility] Comment on above: Performed By: #### 1 [id number], 5738697, 0720417, [id number] #### [facility] Laboratory [address] [place] [address] Inpatient Clinical Summaryon 12-09-2023 Inpatient Clinical Summary [address] [address] Clinical Summary Person Information: Name: DENISE LANTIGUA Age: 43 Years : 1980 Sex: Male PCP: KATIE SALGUERO DO Marital Status: Single Race: White Ethnicity: Non- or Language: Guinean Visit Id: Visit Reason: Shortness of breath; Chest pain; HIGH BP - CHEST PAIN/ LEFT ARM PAIN Speciality: Acuity: Enc Type: Observation Med Service: Medical Arrival: 12/09/2023 00:52:27 Discharge: Dispo Type: Admitted as IP to this Hosp Address: [address] [place] [id number] Provider Notes: Diagnosis: 1:Chest pain; 2:CAD in [place] artery; 3:Hypertensive emergency; 4:Smoker; 5:Chronic back pain; 6:On deep vein thrombosis (DVT) prophylaxis Problems Active Hypertensive emergency CAD in [place] artery Smoker Smoking Status: Current Every Day [...] excuse) 0. No work until follow-up with structural iron erector in approximately 2 weeks.. Refills: 0. ranolazine (Ranexa 500 mg Tab-ER) 1 Tablets By Mouth 2 times a day. Refills: 3. ticagrelor (ticagrelor 90 mg oral tablet) 1 Tablets By Mouth 2 times a day. Refills: 6. Care Team Members: Attending Physician: Dora RHODES DO Consulting Physician: [facility] Cardio, XXXX; ZACH RODNEY, Frank Westbrook Referring Physician: Follow up: With: Address: When: Rebekah RODNEY, Denise Valdez [address] [place], [place] [id number] [facility] (1) Within 1 to 2 weeks Comments: Call for followup appointment Call physician if symptoms worsen With: Address: When: [address], [facility] [address] [place] [address] Business (1) 12/14/2023 10:30 AM Patient Education Information: Hypertension, Adult, Wfdp-hd-Gbxh Normal [facility] Inpatient Patient Summaryon 12-09-2023 Inpatient Patient Summary [address] [address] Patient Discharge Instructions PERSON INFORMATION Name: DENISE LANTIGUA Date of : 1980 Current Date: 12/09/2023 13:55:55 PHYSICIANS Admitting Physician: Dora RHODES DO Primary Care Physician: KATIE SALGUERO DO PCP Comment: Discharge Diagnosis: 1:Chest pain; 2:CAD in [place] artery; 3:Hypertensive emergency; 4:Smoker; 5:Chronic back pain; [...] With: Address: When: Rebekah RODNEY, Denise Valdez [address] [place] [address] [facility] (1) Within 1 to 2 weeks Comments: Call for followup appointment Call physician if symptoms worsen With: Address: When: K[address], [address] [address] Business (1) 12/14/2023 10:30 AM [...] Medications to Continue Taking That Have Changed [facility]/pharmacy #[id number], [address] [facility] [place] [id number], [phone] START: losartan (losartan 25 mg Tab) 1 [...] excuse) 0. No work until follow-up with structural iron erector in approximately 2 weeks.. Refills: 0. Last [...] TAKE 1 TABLET (more content not included)... [facility] Insurance Correspondenceon 0 12-09-2023 Insurance Correspondence [id number]#[id number] TIFF [facility] Interdisciplinary Note - Sunil e Manageron 12-09-2023 Interdisciplinary Note - Rehabilitation Services Aide Pt is awake and alert in bed, [...] updated. probable DC home later today Normal [facility] Comment on above: Result Comment: Elec tronically Signed By: Caesar DELACRUZ, Luzma\.anne\Date and Time Signed: 12/09/23 10:39 EST Lipid Panelon 12-09-2023 Cholesterol [Mass/Vol] 171 mg/dL Normal 120-200 [facility] Comment on above: Performed By: #### 1 [id number], 6145940, 4828246, 4528487 #### [facility] [address] [place] [address] Cholesterol in HDL [Mass/Vol] 28 mg/dL Invalid Interpretation Code [facility] Comment on above: Result Comment: '>= 60 LOW RISK' '<= 40 HIGH RISK' Performed By: #### 1 2845645, 3534677, 9207169, 1698661 #### [facility] [address] [place] [address] Cholesterol in LDL [Mass/Vol] 111 mg/dL Normal <=129 [facility] Comment on above: Performed By: #### 1 7859725, 2173308, 5100449, 3268934 #### [facility] [address] [place] [address] Cholesterol in VLDL [Mass/Vol] 66 mg/dL High 7-40 [facility] Comment on above: Performed By: #### 1 4652252, 7348094, 6948041, 8758992 #### [facility] [address] [place] [address] Triglyceride [Mass/Vol] 328 mg/dL High <=149 [facility] Comment on above: Performed By: #### 1 6490159, 9491717, 2691412, 8281913 #### [facility] [address] [place] [address] Monitor Recordon 12-09-2023 Monitor Record [id number] [facility] [id number]#1.00 TIFF Normal [facility] Monitor Record [id number]#1.00 TIFF Normal [facility] Monitor Record [id number]#1.00 TIFF Normal [facility] Monitor Record [id number]#1.00 TIFF Normal [facility] PT & PTTon 12-09-2023 aPTT Coag (PPP) [Time] 34.7 second(s) Normal 25.1-36.5 [facility] Comment on above: Result Comment: Para [...] same coagulation reagent and instrumentation as [facility]. Currently there are no coagulation studies available worldwide for children to 14 days, and no normal ranges. Heparin therapeutic range (represented by Anti-Factor Xa activity of 0.2 - 0.4 U/mL) corresponds to PTT of 56.6 - 109.0 sec. Performed By: #### 2 988972, 7677239, 33349292, 43489037, 98928969 ####[facility] [address] [place] [address] INR Coag (PPP) [Relative time] 0.97 {INR} Invalid Interpretation Code [facility] Comment on above: Result Comment: INR results are specifically intended to assess patients stabilized on long-term Anticoagulation therapy suggested INR?s ?Less Intensive Anticoagulation? 2.0 ? 3.0 Conventional Range 3.0 ? 4.5 Performed By: #### 2 947854, 0470238, 48677632, 59367340, 45917737 ####[facility] [address] [place] [address] PT Coag (PPP) [Time] 10.9 second(s) Normal 9.4-12.5 [facility] Comment on above: Result Comment: 15 [...] same coagulation reagent and instrumentation as [facility]. Currently there are no coagulation studies available worldwide for children to 14 days, and no normal ranges. Performed By: #### 2 298277, 2556410, 81344853, 39407418, 48110380 ####[facility] [address] [place] [address] Patient Education - Texton 0 12-09-2023 Patient [...] Keep all follow-up visits. Medicines ? Take cdzv-icy-jnjikyh and prescription medicines only as told by [...] For m (more content not included)... Normal [facility] Progress Note-Physicianon Progress Note-Physician Assessment/Plan 1. Chest [...] time given negative troponin 2. CAD in [place] artery (I25.10: Atherosclerotic heart disease of [place] coronary artery without angina pectoris) hx of SD in 08/2023 ASA, brilinta, statin 3. Hypertensive emergency (I16.1: Hypertensive emergency) 2/2 to above Losartan coreg imdur Hydralazine prn 4. Smoker (F17.200: Nicotine dependence, unspecified, uncomplicated) Nicotine patch prn Educate on smoking cessation 5. Chronic back pain (M54.9: Dorsalgia, unspecified) Gabapentin Oxycodone 6. 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 elevated Cr [...] 01:05:00) Lymph Auto: 28.6 % (12/09/23 01:05:00) [place] Auto: 5.5 % (12/09/23 01:05:00) Eos Auto: 5.8 % (12/09/23:05:00) Basophil Auto: 1 % (12/09/23 01:05:00) Neutro Absolute: 6.3 E9/L (12/09/23 01:05:00) Lymph Absolute: 3.1 E9/L (12/09/23 01:05:00) [place] Absolute: 0.6 E9/L (12/09/23 01:05:00) Eos Absolute: [...] Problem List/Past Medical History Ongoing CAD in [place] artery Hypertensive emergency Smoker Historical CHF - Congestive heart failure Hyperlipidemia Hypertension Myocardial infarction Stent Me (more content not included)... Normal [facility] Comment on above: Result Comment: Elec tronically Signed By: Bela DOMINGUEZ studentXuan\.br\Date and Time Signed: 12/09/23 08:43 EST\.br\Electronically Co-Signed By: Durga Thompson DO\.br\Date and Time Co-Signed: 12/09/23 10:42 EST Troponin 0 Hr.on 12-09-2023 Troponin 13.30 pg/mL Low 15.90-38.40 [facility] Comment on above: Result Comment: The 95% CI (Confidence Interval) PPV (Positive Predictive Value) for myocardial infarction in females is 38 pg/mL, in males 51 pg/mL. The results should be used in conjunction with clinical conditions of myocardial infarction. (Access High Sensitivity Troponin I Instructions For Use, [employer], May 2018) Performed By: #### 2 739769, 0385611, 03050273, 89195381, 34715227 ####[facility] [address] [place] [address] Troponin 3 Hr.on 12-09-2023 Troponin 14.30 pg/mL Low 15.90-38.40 [facility] Comment on above: Result Comment: The 95% CI (Confidence Interval) PPV (Positive Predictive Value) for myocardial infarction in females is 38 pg/mL, in males 51 pg/mL. The results should be used in conjunction with clinical conditions of myocardial infarction. (Access High Sensitivity Troponin I Instructions For Use, [employer], May 2018) Performed By: #### 1 7182540, 1223795, 4876740, 4648549 #### [facility] [address] [place] [address] Troponin 6 Hr.on 12-09-2023 Troponin 11.80 pg/mL Low 15.90-38.40 [facility] Comment on above: Result Comment: The 95% CI (Confidence Interval) PPV (Positive Predictive Value) for myocardial infarction in females is 38 pg/mL, in males 51 pg/mL. The results should be used in conjunction with clinical conditions of myocardial infarction. (Access High Sensitivity Troponin I Instructions For Use, [employer]May 2018) Performed By: #### 1 [id number] #### [facility] [address] [place] [address] Troponin 9 Hr.on 12-09-2023 Troponin 10.80 pg/mL Low 15.90-38.40 [facility] Comment on above: Result Comment: The 95% CI (Confidence Interval) PPV (Positive Predictive Value) for myocardial infarction in females is 38 pg/mL, in males 51 pg/mL. The results should be used in conjunction with clinical conditions of myocardial infarction. (Access High Sensitivity Troponin I Instructions For Use, Martina [place], May 2018) Performed By: #### 1 0808647, 0717086, 4834360, 9501624 #### [facility] [address] [place] [address] XR Chest Single Viewon 12-08 XR Chest Single View Exam Date/Time: 12/09/2023 01:13 EST Reason for Exam: Chest pain Report [facility] [id number] IMPRESSION: There are no acute cardiopulmonary changes. [...] mGy = na DAP = na Normal [facility] eGFRon 12-09-2023 eGFR 54 mL/min/1.73 m2 Low >=59 [facility] Comment on above: Order Comment: Order added by Discern Expert. Performed By: #### 2 944901, 9458913, 05828359, 60477095, 89453295 ####[facility] [address] [place] [address] Monitor Recordon 11-01-2023 Monitor Record [id number]#1.00 TIFF Normal [facility] Heart and Vascular Office/Cl inic Noteon 10-16-2023 Heart and Vascular Office/Clinic Note Chief Complaint f/u cath 08/29/23 History of Present Illness Denise Lantigua presents today for a follow-up evaluation of SD, primary PCI of the LAD, mild ischemic [...] Assessment/Plan Denise Lantigua has a history of SD, primary PCI of the LAD, mild ischemic [...] with voice recognition artificial intelligence software, specifically [employer], [employer] and or [employer]. Substitutions may have occurred with voice recognition and artificial intelligence software. Documentation services were performed after patient or guardian consented to allow [employer] to record this visit. SUSAN lean six sigma senior specialist and provider reviewed before signing. SUSAN: [...] last 30 days Tobacco Use:., 09/29/2023 Normal [facility] Comment on above: Result Comment: Elec tronically Signed By: Rebekah RODNEY, Denise Valdez\.br\Date and Time Signed: 10/16/23 20:26 EST\.br\Electronically Co-Signed By: Reba Nathan\.br\Date and Time Co-Signed: 09/30/23 12:19 EST Formson 10-05-2023 Forms [id number]#[id number] IFF Normal [facility] Auto Diffon 08-31-2023 Basophils/100 WBC (Bld) 1.1 % Normal 0.0-2.0 [facility] Comment on above: Order Comment: Order Added by Discern Expert. Performed By: #### 1 8740228, 6666422, 6326584, 5430224 #### [facility] Laboratory [address] [place] [address] Basophils/Leukocytes Auto (Bld) [Pure # fraction] 0.1 E9/L Normal 0.0-0.2 [facility] Comment on above: Order Comment: Order Added by Discern Expert. Performed By: #### 1 9414746, 7166225, 8660991, 7945174 #### [facility] [address] [place] [address] Eosinophils/100 WBC (Bld) 0.9 % Normal 0.0-8.0 [facility] Comment on above: Order Comment: Order Added by Discern Expert. Performed By: #### 1 0397123, 0349781, 6025374, 6336552 #### [facility] [address] [place] [address] Eosinophils/Leukocyte s Auto (Bld) [Pure # fraction] 0.1 E9/L Normal 0.0-0.5 [facility] Comment on above: Order Comment: Order Added by Discern Expert. Performed By: #### 1 7143625, 9081518, 0504515, 8734145 #### [facility] [address] [place] [address] Lymphocytes/100 WBC (Bld) 30.8 % Normal 14.0-50.0 [facility] Comment on above: Order Comment: Order Added by Discern Expert. Performed By: #### 1 5573713, 8322252, 9047458, 3282912 #### [facility] [address] [place] [address] Lymphocytes/Leukocyte s Auto (Bld) [Pure # fraction] 3.2 E9/L Normal 1.0-4.0 [facility] Comment on above: Order Comment: Order Added by Discern Expert. Performed By: #### 1 2076112, 4658110, 0833373, 5105513 #### [facility] [address] [place] [address] Monocytes/100 WBC (Bld) 6.9 % Normal 4.0-14.0 [facility] Comment on above: Order Comment: Order Added by Discern Expert. Performed By: #### 1 7300465, 0500770, 4103072, 9445535 #### [facility] [address] [place] [address] Monocytes/Leukocytes Auto (Bld) [Pure # fraction] 0.7 E9/L Normal 0.2-1.0 [facility] Comment on above: Order Comment: Order Added by Discern Expert. Performed By: #### 1 1885804, 7840674, 0100631, 0351811 #### [facility] [address] [place] [address] Neutrophils/100 WBC (Bld) 60.3 % Normal 36.0-75.0 [facility] Comment on above: Order Comment: Order Added by Discern Expert. Performed By: #### 1 7387018, 5709568, 2443349, 2581247 #### [facility] [address] [place] [address] Neutrophils/Leukocyte s Auto (Bld) [Pure # fraction] 6.2 E9/L Normal 2.0-7.5 [facility] Comment on above: Order Comment: Order Added by Discern Expert. Performed By: #### 1 0349691, 0556338, 7685800, 2887116 #### [facility] [address] [place] [address] BMPon 08-31-2023 Anion gap [Moles/Vol] 13 mmol/L Normal 6-16 [facility] Comment on above: Performed By: #### 1 5364304, 2929414, 8984988, 5143004 #### [facility] [address] [place] [address] Calcium [Mass/Vol] 9.4 mg/dL Normal 8.9-11.1 [facility] Comment on above: Performed By: #### 1 8248780, 9494089, 6979940, 2731106 #### [facility] [address] [place] [address] Chloride [Moles/Vol] 107 mmol/L Normal 101-111 [facility] Comment on above: Performed By: #### 1 0068068, 0439389, 9765421, 8502981 #### [facility] [address] [place] [address] CO2 [Moles/Vol] 23 mmol/L Normal 21-31 [facility] Comment on above: Performed By: #### 1 2259896, 1500807, 6308134, 4383581 #### [facility] [address] [place] [address] Creatinine [Mass/Vol] 1.3 mg/dL Normal 0.5-1.3 [facility] Comment on above: Performed By: #### 1 4019078, 5171216, 5730767, 2547171 #### [facility] [address] [place] [address] Glucose [Mass/Vol] 103 mg/dL Normal 55-199 [facility] Comment on above: Result Comment: If t his glucose result represents a fasting glucose, interpretation should refer to the following reference range: 55-99 mg/dL Performed By: #### 1 9413650, 1484550, 3611101, 8565934 #### [facility] [address] [place] [address] Potassium [Moles/Vol] 4.0 mmol/L Normal 3.5-5.3 [facility] Comment on above: Performed By: #### 1 3673332, 8100308, 7259660, 1610113 #### [facility] [address] [place] [address] Sodium [Moles/Vol] 139 mmol/L Normal 135-145 [facility] Comment on above: Performed By: #### 1 9381296, 6626834, 4189126, 1484121 #### [facility] [address] [place] [address] Urea nitrogen [Mass/Vol] 16 mg/dL Normal 5-21 [facility] Comment on above: Performed By: #### 1 3094796, 2918631, 4693824, 1912636 #### [facility] [address] [place] [address] Urea nitrogen/Creatinine [Mass ratio] 12 No Units Normal 10-20 [facility] Comment on above: Performed By: #### 1 8840833, 7461454, 5092520, 6882728 #### [facility] [address] [place] [address] CBC w/ Auto Diffon 3 Erythrocyte distribution width (RBC) [Ratio] 14.8 % High 10.9-14.2 [facility] Comment on above: Performed By: #### 1 4992690, 4541557, 1611477, 1189136 #### [facility] [address] [place] [address] Hematocrit (Bld) [Volume fraction] 45.7 % Normal 37.7-49.0 [facility] Comment on above: Performed By: #### 1 1760472, 0403694, 6784668, 8049632 #### [facility] [address] [place] [address] Hemoglobin (Bld) [Mass/Vol] 15.5 g/dL Normal 13.5-17.5 [facility] Comment on above: Performed By: #### 1 8250507, 5974623, 7394334, 4950453 #### [facility] [address] [place] [address] MCH (RBC) [Entitic mass] 28.4 pg Normal 27.0-34.0 [facility] Comment on above: Performed By: #### 1 2560930, 6451270, 3839619, 4993355 #### [facility] [address] [place] [address] MCHC (RBC) [Mass/Vol] 33.9 g/dL Normal 31.4-36.0 [facility] Comment on above: Performed By: #### 1 4326189, 4137280, 2213940, 4316705 #### [facility] [address] [place] [address] MCV (RBC) [Entitic vol] 83.8 fL Normal 80.0-100.0 [facility] Comment on above: Performed By: #### 1 4381596, 5465683, 1262711, 1972824 #### [facility] [address] [place] [address] Platelet mean volume (Bld) [Entitic vol] 7.9 fL Normal 6.4-10.8 [facility] Comment on above: Performed By: #### 1 0768229, 0705202, 6034706, 2715259 #### [facility] [address] [place] [address] Platelets (Bld) [#/Vol] 270.0 E9/L Normal 150.0-500.0 [facility] Comment on above: Performed By: #### 1 9487244, 2410722, 9199405, 9258042 #### [facility] [address] [place] [address] RBC (Bld) [#/Vol] 5.5 E12/L Normal 4.3-5.9 [facility] Comment on above: Performed By: #### 1 5818076, 1130057, 2284499, 3270138 #### [facility] [address] [place] [address] WBC corrected for nucl RBC Auto (Bld) [#/Vol] 10.3 E9/L Normal 4.0-11.0 [facility] Comment on above: Performed By: #### 1 4402920, 8364266, 7675143, 6815899 #### [facility] [address] [place] [address] CHEMISTRYOrdered By: SYSTEM SYSTEM on 08-31-2023 Anion [...] mL/min/1.73 m2 Normal >=59mL/min/ 1.73 m2 [facility] Chem S Comment on above: Interpretive Data: [...] [Mass ratio] 12 mg/mg Normal - [facility] Remisol Discharge Instructionson Discharge Instructions [id number] TIFF Normal [facility] Discharge Note-Nursingon Discharge Note-Nursing DENISE [...] Single View This Is Your Medications List [facility] Prescription (work excuse) acetaminophen-oxycodone (Percocet 325 mg-5 [...] Pending Diagnostic Test Results None Pharmacy Information [facility] Discharge Instructions Please return to ER if symptoms change or worsen. Please take medication as prescribed. Please follow-up with structural iron erector as instructed. Please attempt to quit smoking. Previously Scheduled Follow-Up Appointments 2022 2:45 PM EST With: Denise Welch MD Where: [facility] Follow Up Appointments after Discharge Follow Up with Denise Welch MD When: 09/29/2023 02:45 PM EST Where: [address] [place], [place] Follow Up with KATIE SALGUERO When: 09/06/2023 02:30 PM EST Where: [address] , [address] [address]- [facility] (1) Medications What How Much When Instructions Next Dose New aspirin (aspirin 81 mg Oral EC Tab) 1 Tablets By Mouth Every day Pickup at [facility]/pharmacy #6177 09/01 @ 9 AM New atorvastatin (atorvastatin 80 mg Tab) 1 Tablets By Mouth Every day Pickup at [facility]/pharmacy #6177 09/01 @ 9 AM New carvedilol (carvedilol 3.125 mg Tab) 1 Tablets By Mouth 2 times a day Pickup at [facility]/pharmacy #[id number] 08/31 @ 9 PM New furosemide (Lasix 20 mg Tab) 1 Tablets By Mouth Every day Pickup at [facility]/pharmacy #[id number] 09/01 @ 9 AM New losartan (losartan 50 mg Tab) 0.5 Tablets By Mouth Every day Pickup at [facility]/pharmacy #[id number] 09/01 @ 9 AM [facility] Prescription (work excuse) 0 No work until follow-up with structural iron erector in approximately 2 weeks. Printed Prescription APPT 09/29 New ticagrelor (ticagrelor 90 mg oral tablet) 1 Tablets By Mouth 2 times a day Pickup at [facility]/pharmacy #[id number] 08/31 @ 9 PM Unchanged acetaminophen-oxycodone [...] @ 2 PM, 9 PM Pharmacy Information [facility]/pharmacy #[id number]: [address], [place] [id number] [phone] What How Much When Comments Stop Taking [...] 06:16:00) P (more content not included)... Normal [facility] HEMATOLOGYOrdered By: SYSTEM SYSTEM on 08-31-2023 [...] E9/L Normal 150.0 - 500.0 E9/L [facility] HemeAutoSS RBC (Bld) [#/Vol] 5.5 E12/L Normal 4.3 - 5.9 E12/L [facility] HemeAutoSS WBC corrected for nucl RBC Auto (Bld) [#/Vol] 10.3 E9/L Normal 4.0 - 11.0 E9/L [facility] HemeAutoSS Inpatient Clinical Summaryon 08-31-2023 Inpatient Clinical Summary [place] [id number] Clinical Summary Person Information: Name: DENISE LANTIGUA Age: 43 Years : 1980 Sex: Male PCP: KATIE SALGUERO DO Marital Status: Single Race: White Ethnicity: Non- or Language: Guinean Visit Id: Visit Reason: STEMI Speciality: Acuity: Enc Type: Inpatient Med Service: Medical Arrival: 08/29/2023 16:25:17 Discharge: Dispo Type: Address: [address] [place] [phone] Provider Notes: Diagnosis: 1:STEMI (ST elevation myocardial [...] excuse) 0. No work until follow-up with structural iron erector in approximately 2 weeks.. Refills: 0. ticagrelor (ticagrelor 90 mg oral tablet) 1 Tablets By Mouth 2 times a day. Refills: 0. Care Team Members: Attending Physician: Durga Thompson DO Consulting Physician: Frank SERRANO MD Referring Physician: Follow up: With: Address: When: Denise Welch MD [address] [place] [address] 09/29/2023 2:45 PM With: Address: When: KATIE ENGEL , [address] [address] Business (1) 09/06/2023 2:30 PM Type Location [facility] ([facility]) [facility] [place] 09/29/2023 2:45 PM 09/29/2023 3:00 PM Confirmed Patient Education Information: Cardiac Rehabilitation; Acute Coronary Syndrome Normal [facility] Inpatient Patient Summaryon 08-31-2023 Inpatient Patient Summary [address] [address] Patient Discharge Instructions PERSON INFORMATION [...] take medication as prescribed. Please follow-up with structural iron erector as instructed. Please attempt to quit smoking. Primary Care Physician to provide the following pending test results: None Follow up: With: Address: When: Denise Welch MD [address] [place], [place] 09/29/2023 2:45 PM With: Address: When: KATIE Campos MAREN , [address] [address] [facility] (1) 09/06/2023 2:30 PM In the event that this physician does not participate in your insurance network, please consult with your insurance company to find a nearby participating provider. Type Location [facility] Cardiology Inpatient Follow Up (FT) [facility] [place] 09/29/2023 2:45 PM 09/29/2023 3:00 PM Confirmed Comment: GRZEGORZ Angel RYAN, have received the attached patient education materials/instructions and have verbalized understanding: Patient Signature Date Clinican/Nurse Signature _ Date HERE ARE THE MEDICATION CHANGES THAT OCCURRED DURING YOUR HOSPITAL STAY New Medications [id number], [address] [place], [place] [phone], [phone] aspirin (aspirin 81 mg Oral EC Tab) [...] excuse) 0. No work until follow-up with structural iron erector in approximately 2 weeks.. Refills: 0. Last [...] 0. atorvastatin (at (more content not included)... [facility] Insurance Correspondence Off iceon 08-31-2023 Insurance Correspondence Office [id number]#1.00 TIFF [facility] Interdisciplinary Note - Sunil e Manageron 08-31-2023 Interdisciplinary Note - Rehabilitation Services Aide Pt DC home prior to rounds with CRM [facility] Comment on above: Result Comment: Elec tronically Signed By: Caesar DELACRUZ, Luzma\.br\Date and Time Signed: 08/31/23 10:52 EST Interdisciplinary Note - Soc ial Workeron 08-31-2023 Interdisciplinary Note - Dock Or Pier Laborer Brgerardota cost verified through patient's pharmacy; his cost is $25 after insurance. [facility] did not have the medication in [...] they would need to go to the [facility] for the rest of his mediations. She voiced understanding. SW will remain available. Normal [facility] Monitor Recordon 08-31-2023 Monitor Record [id number]#1.00 TIFF [facility] Prescriptions/Work Noteson 1 10-31-2022 Prescriptions/Work Notes [id number]#1.00 TIFF [facility] Progress Note-Physicianon Progress Note-Physician Subjective [...] Calcium Lvl: 9.9 mg/dL (08/30/23 07:59:00) Troponin: >86037.00 Critical (08/30/23 07:59:00) Diagnostic Results (08/30/2023 10:50 [...] 2 tab (more content not included)... Normal [facility] Comment on above: Result Comment: Elec tronically Signed By: ZACH RODNEY, Frank Westbrook\.br\Date and Time Signed: 08/31/23 07:11 EST eGFRon 08-31-2023 GFR/1.73 sq M.predicted among non-blacks MDRD (S/P/Bld) [Vol rate/Area] 69 mL/min/1.73 m2 Normal >=59 [facility] Comment on above: Order Comment: Order added by Discern Expert. Result Comment: Outbound Supervisor yury kidney disease could be indicated at eGFR's of less than 60 mL/min/1.73m2. Kidney failure is indicated at less than 15 mL/min/1.73m2. Performed By: #### 1 [id number], 3075818, 9470502, 2999240 #### [facility] Laboratory [address] [place] [address] BMPon 08-30-2023 Creatinine [Mass/Vol] 1.0 mg/dL Normal 0.5-1.3 [facility] Comment on above: Performed By: #### 2 330719, 1197936, [id number] ####[facility] [address] [facility] [place], [place] [address] Urea nitrogen [Mass/Vol] 8 mg/dL Normal 5-21 [facility] Comment on above: Performed By: #### 2 036309, 3174472, [id number] ####[facility] [address] [place] [address] Urea nitrogen/Creatinine [Mass ratio] 8 No Units Low 10-20 [facility] Comment on above: Performed By: #### 2 556431, 3896896, 44651246 ####[facility] [address] [place] [address] Anion gap [Moles/Vol] 17 mmol/L High 6-16 [facility] Comment on above: Performed By: #### 2 874165, 4056905, [id number] ####[facility] [address] [place] [address] Calcium [Mass/Vol] 9.9 mg/dL Normal 8.9-11.1 [facility] Comment on above: Performed By: #### 2 934707, 8846846, 55167629 ####[facility] [address] [place] [address] Chloride [Moles/Vol] 102 mmol/L Normal 101-111 [facility] Comment on above: Performed By: #### 2 281895, 7825308, 25019887 ####[facility] [address] [place] [address] CO2 [Moles/Vol] 22 mmol/L Normal 21-31 [facility] Comment on above: Performed By: #### 2 906251, 0137821, 82146201 ####[facility] [address] [place] [address] Glucose [Mass/Vol] 153 mg/dL Normal 55-199 [facility] Comment on above: Result Comment: If t his glucose result represents a fasting glucose, interpretation should refer to the following reference range: 55-99 mg/dL Performed By: #### 2 359239, 1772633, 53188107 ####[facility] [address] [facility] [place] [address] Potassium [Moles/Vol] 4.0 mmol/L Normal 3.5-5.3 [facility] Comment on above: Performed By: #### 2 998209, 7890691, 72134535 ####[facility] [address] [place] [address] Sodium [Moles/Vol] 137 mmol/L Normal 135-145 [facility] Comment on above: Performed By: #### 2 345722, 4976904, 98449442 ####[facility] [address] [place] [address] Anion gap [Moles/Vol] QNS Invalid Interpretation Code 6-16 [facility] Comment on above: Result Comment: The specimen for this test has been found unacceptable due to quantity insufficient as determined by SW. Sissy was contacted and the following determination was made to redraw the patient. Performed By: #### 1 [id number], 4724481, 8185107, 0023990 #### [facility] [address] [place] [address] Calcium [Mass/Vol] QNS Invalid Interpretation Code 8.9-11.1 [facility] Comment on above: Result Comment: The specimen for this test has been found unacceptable due to quantity insufficient as determined by SW. Sissy was contacted and the following determination was made to redraw the patient. Performed By: #### 1 4822621, 2611490, 7013519, 9929573 #### [facility] [address] [place] [address] Chloride [Moles/Vol] QNS Invalid Interpretation Code 101-111 [facility] Comment on above: Result Comment: The specimen for this test has been found unacceptable due to quantity insufficient as determined by SW. Lotus was contacted and the following determination was made to redraw the patient. Performed By: #### 1 6094330, 7683104, 2483411, 2981358 #### [facility] [address] [place] [address] CO2 [Moles/Vol] QNS Invalid Interpretation Code 21-31 [facility] Comment on above: Result Comment: The specimen for this test has been found unacceptable due to quantity insufficient as determined by SW. Sissy was contacted and the following determination was made to redraw the patient. Performed By: #### 1 4881797, 0644533, 0806736, 3304884 #### [facility] [address] [place] [address] Creatinine [Mass/Vol] QNS Invalid Interpretation Code 0.5-1.3 [facility] Comment on above: Result Comment: The specimen for this test has been found unacceptable due to quantity insufficient as determined by SW. Sissy was contacted and the following determination was made to redraw the patient. Performed By: #### 1 2487912, 7787401, 1916110, 6204672 #### [facility] [address] [place] [address] Potassium [Moles/Vol] QNS Invalid Interpretation Code 3.5-5.3 [facility] Comment on above: Result Comment: The specimen for this test has been found unacceptable due to quantity insufficient as determined by SW. Sissy was contacted and the following determination was made to redraw the patient. Performed By: #### 1 7082604, 8075070, 4856251, 1454984 #### [facility] [address] [place] [address] Sodium [Moles/Vol] QNS Invalid Interpretation Code 135-145 [facility] Comment on above: Result Comment: The specimen for this test has been found unacceptable due to quantity insufficient as determined by SW. Sissy was contacted and the following determination was made to redraw the patient. Performed By: #### 1 3195332, 4751858, 8825214, 8724241 #### [facility] [address] [facility] [place] [address] Urea nitrogen [Mass/Vol] QNS Invalid Interpretation Code 5-21 [facility] Comment on above: Result Comment: The specimen for this test has been found unacceptable due to quantity insufficient as determined by SW. Sissy was contacted and the following determination was made to redraw the patient. Performed By: #### 1 3059485, 5242921, 2434505, 6538879 #### [facility] [address] [place] [address] Urea nitrogen/Creatinine [Mass ratio] QNS Invalid Interpretation Code 07-29 [facility] Comment on above: Result Comment: The specimen for this test has been found unacceptable due to quantity insufficient as determined by SW. Sissy was contacted and the following determination was made to redraw the patient. Performed By: #### 1 9799090, 2479818, 8158708, 4536465 #### [facility] [address] [place] [address] Glucose [Mass/Vol] 113 mg/dL Normal 55-199 [facility] Comment on above: Result Comment: If t his glucose result represents a fasting glucose, interpretation should refer to the following reference range: 55-99 mg/dL Performed By: #### 1 5274449, 8345486, 2127972, 4590204 #### [facility] [address] [place] [address] CBC w/Indiceson 08-30-2023 Erythrocyte distribution width (RBC) [Ratio] 14.5 % High 10.9-14.2 [facility] Comment on above: Performed By: #### 1 1703761, 0773269, 8361973, 0056218 #### [facility] [address] [place] [address] Hematocrit (Bld) [Volume fraction] 51.5 % High 37.7-49.0 [facility] Comment on above: Performed By: #### 1 6388884, 2098910, 6185300, 1131167 #### [facility] [address] [place] [address] Hemoglobin (Bld) [Mass/Vol] 17.5 g/dL Normal 13.5-17.5 [facility] Comment on above: Performed By: #### 1 1749152, 2582784, 9089182, 0040839 #### [facility] [address] [place] [address] MCH (RBC) [Entitic mass] 28.6 pg Normal 27.0-34.0 [facility] Comment on above: Performed By: #### 1 0785803, 8000958, 3517026, 3204347 #### [facility] [address] [place] [address] MCHC (RBC) [Mass/Vol] 34.0 g/dL Normal 31.4-36.0 [facility] Comment on above: Performed By: #### 1 9417726, 4753494, 7796192, 5400631 #### [facility] [address] [place] [address] MCV (RBC) [Entitic vol] 83.9 fL Normal 80.0-100.0 [facility] Comment on above: Performed By: #### 1 9996707, 4203915, 0486829, 9658390 #### [facility] [address] [place] [address] Platelet mean volume (Bld) [Entitic vol] 8.2 fL Normal 6.4-10.8 [facility] Comment on above: Performed By: #### 1 7924130, 8382096, 7172226, 0181253 #### [facility] [address] [place] [address] Platelets (Bld) [#/Vol] 310.0 E9/L Normal 150.0-500.0 [facility] Comment on above: Performed By: #### 1 5455722, 1102522, 9483891, 0216409 #### [facility] [address] [place] [address] RBC (Bld) [#/Vol] 6.1 E12/L High 4.3-5.9 [facility] Comment on above: Performed By: #### 1 6216996, 5066485, 7691576, 2671594 #### [facility] [address] [place] [address] WBC corrected for nucl RBC Auto (Bld) [#/Vol] 15.4 E9/L High 4.0-11.0 [facility] Comment on above: Performed By: #### 1 7200004, 6554024, 9996742, 3909923 #### [facility] [address] [place] [address] CHEMISTRYOrdered By: SYSTEM SYSTEM on 08-30-2023 Anion [...] mL/min/1.73 m2 Normal >=59mL/min/ 1.73 m2 [facility] Chem S Comment on above: Interpretive Data: [...] Resu lt verified by dilution\ Critical Result I_[id number] Called to DAMON BRUSH at 3N by [...] mg/dL Normal 5 - 21 mg/dL [facility] Remisol Urea nitrogen/Creatinine [Mass ratio] 8 mg/mg Low 10 - 20 [facility] Remisol Glucose [Mass/Vol] 113 mg/dL Normal 55 - 199 mg/dL [facility] Remisol Comment on above: Interpretive Data: I f this glucose result represents a fasting glucose, interpretation should refer to the following reference range: 55-99 mg/dL Magnesium [Mass/Vol] 2.0 mg/dL Normal 1.3 - 2 .4 mg/dL [facility] Remisol CHEMISTRYOrdered By: Tali sue on 08-30-2023 Anion gap [Moles/Vol] QNS Invalid Interpretation Code 6 - 16 [facility] Chem S Comment on above: Result Comment: The specimen for this test has been found unacceptable due to quantity insufficient as determined by SW. Sissy was contacted and the following determination was made to redraw the patient. Calcium [Mass/Vol] QNS Invalid Interpretation Code 8.9 - 11.1 [facility] Chem S Comment on above: Result Comment: The specimen for this test has been found unacceptable due to quantity insufficient as determined by SW. Sissy was contacted and the following determination was made to redraw the patient. Chloride [Moles/Vol] QNS Invalid Interpretation Code 101 - 111 [facility] Chem S Comment on above: Result Comment: [...] to quantity insufficient as determined by SW. Lotus was contacted and the following determination was made to redraw the patient. GFR/1.73 sq M.predicted among non-blacks MDRD (S/P/Bld) [Vol rate/Area] QNS Invalid Interpretation Code >=59 [facility] Chem S Comment on above: Result Comment: The specimen for this test has been found unacceptable due to quantity insufficient as determined by SW. Lotus was contacted and the following determination was made to redraw the patient. Interpretive Data: C hronic kidney disease could be indicated at eGFR's of less than 60 mL/min/1.73m2. Kidney failure is indicated at less than 15 mL/min/1.73m2. Potassium [Moles/Vol] QNS Invalid Interpretation Code 3.5 - 5.3 [facility] Chem S Comment on above: Result Comment: The specimen for this test has been found unacceptable due to quantity insufficient as determined by SW. Sissy was contacted and the following determination was made to redraw the patient. Sodium [Moles/Vol] QNS Invalid Interpretation Code 135 - 145 [facility] Chem S Comment on above: Result Comment: The specimen for this test has been found unacceptable due to quantity insufficient as determined by SW. Sissy was contacted and the following determination was made to redraw the patient. Urea nitrogen [Mass/Vol] QNS Invalid Interpretation Code 5 - 21 [facility] Chem S Comment on above: Result Comment: The specimen for this test has been found unacceptable due to quantity insufficient as determined by SW. Sissy was contacted and the following determination was made to redraw the patient. Urea nitrogen/Creatinine [Mass ratio] QNS Invalid Interpretation Code 10 - 20 [facility] S Comment on above: Result Comment: The specimen for this test has been found unacceptable due to quantity insufficient as determined by SW. Lotus was contacted and the following determination was made to redraw the patient. Cardiovascular Reporton 08-11 Cardiovascular Report [id number]#1.00 TIFF Normal [facility] ED Note-Physicianon 08-30-20 23 ED Note-Physician [...] here. He is taken directly to the High Lead Yarder for emergent procedure. Critical Care Time: 10 [...] Diagnostic Results No qualifying data available. Normal [facility] Comment on above: Result Comment: Elec [...] Correspondence Off ice 08-30-2023 Insurance Correspondence Office [id number]#1.00 TIFF Normal [facility] Interdisciplinary Note - Sunil e Manageron 08-30-2023 Interdisciplinary Note - Rehabilitation Services Aide Pt is asleep in bed, no family present. previously rounded with Dr. Thompson and await cardiology to see. Possible DC home later today. Pt is currently on brilinta, coupon provided for $5 copay provided at bedside and nursing updated, no further concerns or DC needs identified. CRM following, Probable DC home later today [facility] Comment on above: Result Comment: Elec tronically Signed By: Caesar DELACRUZ, Luzma\.br\Date and Time Signed: 08/30/23 10:03 EST Magnesiumon 08-30-2023 Magnesium [Mass/Vol] 2.0 mg/dL Normal 1.3-2.4 [facility] Comment on above: Performed By: #### 1 1665304, 4097292, 6005529, 2686731 #### [facility] [address] [place] [address] Monitor Recordon 08-30-2023 Monitor Record [id number]#1.00 TIFF Normal [facility] Monitor Record [id number]#1.00 TIFF Normal [facility] Monitor Record [id number]#1.00 TIFF Normal [facility] Monitor Record [id number]#1.00 TIFF Normal [facility] Monitor Record [id number]#1.00 TIFF [facility] Progress Note-Nurseon 2022 Progress Note-Nurse Patient reports stock counter yury back pain rated 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 Safety maintained. Normal [facility] Progress Note-Nurse This nurse was tsai [...] a 4/10. Will continue to monitor. Normal [facility] Progress Note-Physicianon Progress Note-Physician Assessment/Plan 1. STEMI [...] on telemetry for another 24 hours. Ordered: [facility] Care/Day High 50 Minutes [id number] 2. Tobacco abuse (Z72.0: Tobacco use) Educate [...] 16:21:00) Lymph Auto: 32.5 % (08/29/23 16:21:00) [place] Auto: 4.6 % (08/29/23 16:21:00) Eos Auto: 0.9 % (08/29/23 16:21:00) Basophil Auto: 0.9 % (08/29/23 16:21:00) Neutro Absolute: 7.6 E9/L High (08/29/23 16:21:00) Lymph Absolute: 4.1 E9/L High (08/29/23 16:21:00) Cam[place] (more content not included)... Normal [facility] Comment on above: Result Comment: Elec [...] 16:21:00) Lymph Auto: 32.5 % (08/29/23 16:21:00) [place] Auto: 4.6 % (08/29/23 16:21:00) Eos Auto: 0.9 % (08/29/23 16:21:00) Basophil Auto: 0.9 % (08/29/23 16:21:00) Neutro Absolute: 7.6 E9/L High (08/29/23 16:21:00) Lymph Absolute: 4.1 E9/L High (08/29/23 16:21:00) [place] Absolute: 0.6 E9/L (08/29/23 16:21:00) Eos Absolute: [...] Oral, q (more content not included)... Normal [facility] Comment on above: Result Comment: Elec tronically Signed By: ZACH RODNEY, Frank Westbrook\.br\Date and Time Signed: 08/30/23 07:50 EST Troponinon 08-30-2023 Troponin I.cardiac [Mass/Vol] ng/mL Abnormal 15.90-38.40 [facility] Comment on above: Result Comment: Resu lt verified by dilution\ Critical Result I_[id number] Called to DAMON BRUSH at 3N by [...] Nedra, May 2018) Performed By: #### 1 [id number], 9504103, 6930470, 0609532 #### [facility] [address] [place] [address] eGFRon 08-30-2023 GFR/1.73 sq M.predicted among non-blacks MDRD (S/P/Bld) [Vol rate/Area] 95 mL/min/1.73 m2 Normal >=59 [facility] Comment on above: Order Comment: Order added by Discern Expert. Result Comment: Outbound Supervisor yury kidney disease could be indicated at eGFR's of less than 60 mL/min/1.73m2. Kidney failure is indicated at less than 15 mL/min/1.73m2. Performed By: #### 2 734712, 7262505, [id number] ####[facility] [address] [place] [address] GFR/1.73 sq M.predicted among non-blacks MDRD (S/P/Bld) [Vol rate/Area] QNS Invalid Interpretation Code >=59 [facility] [facility] Comment on above: Order Comment: Order [...] than 15 mL/min/1.73m2. Performed By: #### 1 [id number], 3708845, 7039719, 6180304 #### [facility] [address] [place] [address] Auto Diffon 08-29-2023 Basophils/100 WBC (Bld) 0.9 % Normal 0.0-2.0 [facility] Comment on above: Order Comment: Order Added by Discern Expert. Performed By: #### 2 770388, 19886859, 93847326, 83513476, 4123728, 9362081 #### [facility] [address] [place] [address] Basophils/Leukocytes Auto (Bld) [Pure # fraction] 0.1 E9/L Normal 0.0-0.2 [facility] Comment on above: Order Comment: Order Added by Discern Expert. Performed By: #### 2 785578, 56347332, 09219681, 28921678, 6060610, 8649612 #### [facility] [address] [place] [address] Eosinophils/100 WBC (Bld) 0.9 % Normal 0.0-8.0 [facility] Comment on above: Order Comment: Order Added by Discern Expert. Performed By: #### 2 395212, 88202599, 88035083, 22724738, 9626089, 8744428 #### [facility] [address] [place] [address] Eosinophils/Leukocyte s Auto (Bld) [Pure # fraction] 0.1 E9/L Normal 0.0-0.5 [facility] Comment on above: Order Comment: Order Added by Discern Expert. Performed By: #### 2 799061, 43927436, 56238107, 34902775, 3604400, 5444432 #### [facility] [address] [place] [address] Lymphocytes/100 WBC (Bld) 32.5 % Normal 14.0-50.0 [facility] Comment on above: Order Comment: Order Added by Discern Expert. Performed By: #### 2 894354, 11165131, 44281706, 36235393, 1526461, 9135299 #### [facility] [address] [place] [address] Lymphocytes/Leukocyte s Auto (Bld) [Pure # fraction] 4.1 E9/L High 1.0-4.0 [facility] Comment on above: Order Comment: Order Added by Discern Expert. Performed By: #### 2 196851, 29169143, 12738185, 67473966, 5528743, 3116294 #### [facility] [address] [place] [address] Monocytes/100 WBC (Bld) 4.6 % Normal 4.0-14.0 [facility] Comment on above: Order Comment: Order Added by Discern Expert. Performed By: #### 2 484223, 92256981, 09693624, 22758203, 8633020, 7621030 #### [facility] [address] [place] [address] Monocytes/Leukocytes Auto (Bld) [Pure # fraction] 0.6 E9/L Normal 0.2-1.0 [facility] Comment on above: Order Comment: Order Added by Discern Expert. Performed By: #### 2 562472, 75261205, 82721270, 26135562, 9059172, 5847594 #### [facility] [address] [place] [address] Neutrophils/100 WBC (Bld) 61.1 % Normal 36.0-75.0 [facility] Comment on above: Order Comment: Order Added by Discern Expert. Performed By: #### 2 384939, 74775602, 13826766, 57868558, 2208303, 5016165 #### [facility] [address] [place] [address] Neutrophils/Leukocyte s Auto (Bld) [Pure # fraction] 7.6 E9/L High 2.0-7.5 [facility] Comment on above: Order Comment: Order Added by Discern Expert. Performed By: #### 2 296681, 98383397, 74893654, 71803179, 6838024, 2299203 #### [facility] [address] [place] [address] BMPon 08-29-2023 Creatinine [Mass/Vol] 1.1 mg/dL Normal 0.5-1.3 [facility] Comment on above: Performed By: #### 2 689198, 82621315, 12284763, 01767783, 9323831, 8458018 ####[facility] [address] [place] [address] Urea nitrogen [Mass/Vol] 7 mg/dL Normal 5-21 [facility] Comment on above: Performed By: #### 2 365933, 21300254, 55234224, 65153562, 8958247, 8519933 ####[facility] [address] [place] [address] Urea nitrogen/Creatinine [Mass ratio] 6 No Units Low 10-20 [facility] Comment on above: Performed By: #### 2 759298, 82549427, 26222140, 84675620, 4045128, 2534552 ####[facility] [address] [place] [address] Anion gap [Moles/Vol] 17 mmol/L High 6-16 [facility] Comment on above: Performed By: #### 2 531484, 69690697, 50633436, 15515911, 2038658, 6245508 ####[facility] [address] [place] [address] Calcium [Mass/Vol] 9.8 mg/dL Normal 8.9-11.1 [facility] Comment on above: Performed By: #### 2 837568, 35343055, 76992674, 43629323, 6519981, 4385825 ####[facility] [address] [place] [address] Chloride [Moles/Vol] 101 mmol/L Normal 101-111 [facility] Comment on above: Performed By: #### 2 199681, 49095130, 22241934, 87511472, 9859743, 5714548 ####[facility] [address] [place] [address] CO2 [Moles/Vol] 23 mmol/L Normal 21-31 [facility] Comment on above: Performed By: #### 2 331659, 56856049, 72719002, 40120468, 1697983, 0855628 ####[facility] [address] [place] [address] Glucose [Mass/Vol] 145 mg/dL Normal 55-199 [facility] Comment on above: Result Comment: If t his glucose result represents a fasting glucose, interpretation should refer to the following reference range: 55-99 mg/dL Performed By: #### 2 547025, 44066416, 99603285, 66441015, 6118874, 1046273 ####[facility] [address] [place] [address] Potassium [Moles/Vol] 3.5 mmol/L Normal 3.5-5.3 [facility] Comment on above: Performed By: #### 2 240299, 27759806, 51613813, 04387089, 3122357, 3507213 ####[facility] [address] [place] [address] Sodium [Moles/Vol] 137 mmol/L Normal 135-145 [facility] Comment on above: Performed By: #### 2 532521, 64421222, 82266050, 74798433, 5693479, 6438262 ####[facility] [address] [place] [address] CBC w/ Auto Diffon Erythrocyte distribution width (RBC) [Ratio] 14.7 % High 10.9-14.2 [facility] Comment on above: Performed By: #### 2 568591, 73883231, 86819842, 88321114, 3296567, 8021258 #### [facility] [address] [place] [address] Hematocrit (Bld) [Volume fraction] 44.9 % Normal 37.7-49.0 [facility] Comment on above: Performed By: #### 2 534835, 44233308, 96594016, 87263204, 1657847, 8481480 #### [facility] [address] [place] [address] Hemoglobin (Bld) [Mass/Vol] 15.1 g/dL Normal 13.5-17.5 [facility] Comment on above: Performed By: #### 2 876797, 56822491, 37650781, 32481485, 0236541, 4434548 #### [facility] [address] [place] [address] MCH (RBC) [Entitic mass] 28.0 pg Normal 27.0-34.0 [facility] Comment on above: Performed By: #### 2 052689, 82117096, 29464852, 71991371, 3746547, 8331519 #### [facility] [address] [place] [address] MCHC (RBC) [Mass/Vol] 33.7 g/dL Normal 31.4-36.0 [facility] Comment on above: Performed By: #### 2 665910, 64421388, 63631349, 07750684, 2385976, 4975498 #### [facility] [address] [place] [address] MCV (RBC) [Entitic vol] 83.2 fL Normal 80.0-100.0 [facility] Comment on above: Performed By: #### 2 020361, 90674406, 54906277, 31752020, 5896829, 1590577 #### [facility] [address] [place] [address] Platelet mean volume (Bld) [Entitic vol] 8.1 fL Normal 6.4-10.8 [facility] Comment on above: Performed By: #### 2 323180, 97163232, 57259066, 06911724, 4913424, 5321274 #### [facility] [address] [place] [address] Platelets (Bld) [#/Vol] 346.0 E9/L Normal 150.0-500.0 [facility] Comment on above: Performed By: #### 2 961729, 45032065, 85107413, 77035417, 9827486, 5330216 #### [facility] [address] [place] [address] RBC (Bld) [#/Vol] 5.4 E12/L Normal 4.3-5.9 [facility] Comment on above: Performed By: #### 2 885152, 93632043, 00327406, 24765620, 8213826, 4781611 #### [facility] [address] [place] [address] WBC corrected for nucl RBC Auto (Bld) [#/Vol] 12.5 E9/L High 4.0-11.0 [facility] Comment on above: Performed By: #### 2 036333, 77248363, 46713610, 28983891, 6643769, 4125769 #### [facility] [address] [place] [address] CHEMISTRYOrdered By: SYSTEM SYSTEM on 08-29-2023 Troponin I.cardiac [Mass/Vol] 132.40 pg/mL Invalid Interpretation Code 15.90 - 38.40 pg/mL [facility] Remisol Comment on above: Result Comment: Javit [...] Sensitivity Troponin I Instructions For Use, Martina [employer], May 2018) COAGULATIONOrdered By: Samantha Edwards on 08-29-2023 aPTT Coag (PPP) [Time] 31.6 s Normal 25.1 - 36.5 second(s) [facility] Auto Coag Comment on above: Interpretive Data: [...] same coagulation reagent and instrumentation as [facility]. Currently there are no coagulation studies available worldwide for children to 14 days, and no normal ranges. Heparin therapeutic range (represented by Anti-Factor Xa activity of 0.2 - 0.4 U/mL) corresponds to PTT of 56.6 - 109.0 sec. INR Coag (PPP) [Relative time] 1.0 {INR} Invalid Interpretation Code [facility] Auto Coag Comment on above: Interpretive Data: I NR results are specifically intended to assess patients stabilized on long-term Anticoagulation therapy suggested INR s Less Intensive Anticoagulation 2.0 3.0 Conventional Range 3.0 4.5 PT Coag (PPP) [Time] 11.5 s Normal 9.4 - 1 2.5 second(s) [facility] Auto Coag Comment on above: Interpretive Data: [...] same coagulation reagent and instrumentation as [facility]. Currently there are no coagulation studies available worldwide for children to 14 days, and no normal ranges. 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 Complications Sustained ventricular tachycardia after reperfusion, spontaneously converted Technique Following full and informed consent the patient was brought to the [facility] where sterile prep and drape were administered in usual fashion. Anesthesia was obtained in the right wrist with lidocaine after administration of conscious sedation. A 5/6 slender Terumo sheath was placed in the right radial artery without complication. Nitroglycerin and nicardipine were given via the sheath and heparin was given intravenously. A 6 Lao XB3.5 catheter was advanced and selectively engaged [...] end of the procedure without complication. Normal [facility] Comment on above: Result Comment: Elec tronically Signed By: Rebekah RODNEY, Denise Valdez\.br\Date and Time Signed: 08/29/23 20:59 EST PT & PTTon 08-29-2023 aPTT Coag (PPP) [Time] 31.6 second(s) Normal 25.1-36.5 [facility] Comment on above: Result Comment: Para [...] same coagulation reagent and instrumentation as [facility]. Currently there are no coagulation studies available worldwide for children to 14 days, and no normal ranges. Heparin therapeutic range (represented by Anti-Factor Xa activity of 0.2 - 0.4 U/mL) corresponds to PTT of 56.6 - 109.0 sec. Performed By: #### 2 697626, 71945233, 82635554, 29232510, 9026053, 6803499 #### [facility] [address] [place] [address] INR Coag (PPP) [Relative time] 1.0 {INR} Invalid Interpretation Code [facility] Comment on above: Result Comment: INR results are specifically intended to assess patients stabilized on long-term Anticoagulation therapy suggested INR?s ?Less Intensive Anticoagulation? 2.0 ? 3.0 Conventional Range 3.0 ? 4.5 Performed By: #### 2 326879, 91633883, 44157536, 75058357, 3047865, 8877723 #### [facility] [address] [place] [address] PT Coag (PPP) [Time] 11.5 second(s) Normal 9.4-12.5 [facility] Comment on above: Result Comment: 15 [...] same coagulation reagent and instrumentation as [facility]. Currently there are no coagulation studies available worldwide for children to 14 days, and no normal ranges. Performed By: #### 2 911068, 93862584, 94502942, 56314992, 8499492, 3930058 #### [facility] [address] [place] [address] Pre-Arrival Noteon 3 Pre-Arrival Note Pre-[facility] Summary [facility] Current Date: 08/29/2023 16:25:38 EST Gender: Date of : Age: 43 Pre-Arrival Type: EMS ETA: 08/29/2023 16:48:00 EST Primary Care Physician: Presenting Problem: STEMI Pre-Arrival User: Olive Mcdonald RN Referring Source: Location: Completion Date/Time: 08/29/2023 16:19:00 [facility] Pre-Hospital Report Form Vital Signs: Pre-Hospital Report: Treatment in Route: Response to Treatment: Misc. Issues: Normal [facility] Progress Note-Nurseon 2022 Progress Note-Nurse Report [...] locked and low, and safety maintained. Normal [facility] Troponin 0 Hr.on 08-29-2023 Troponin I.cardiac [Mass/Vol] 132.40 pg/mL Abnormal 15.90-38.40 [facility] Comment on above: Result Comment: Crit [...] Sensitivity Troponin I Instructions For Use, Martina [employer], May 2018) Performed By: #### 2 428249, 10730780, 41722415, 66894601, 0159800, 1285491 ####[facility] [address] [place] [address] XR Chest Single Viewon 08-29 XR Chest [...] (Electronic Signature): 08/29/2023 4:52 pm Signed by: Shmion Perry MD, V. Transcribed by: ERNESTINE Technologist: CHUYITA Technical Comments Radiation Dose: Ka,r in mGy = na DAP = na Normal [facility] eGFRon 08-29-2023 GFR/1.73 sq M.predicted among non-blacks MDRD (S/P/Bld) [Vol rate/Area] 84 mL/min/1.73 m2 Normal >=59 [facility] Comment on above: Order Comment: Order added by Discern Expert. Result Comment: Outbound Supervisor yury kidney disease could be indicated at eGFR's of less than 60 mL/min/1.73m2. Kidney failure is indicated at less than 15 mL/min/1.73m2. Performed By: #### 2 851777, 72112273, 99543560, 38274313, 4303701, 2821342 ####[place] [id number] [place] [id number] XR thoracic spine 2Von 05-31 XR thoracic spine 2V [facility] Main [employer] [address] [place] [address] XRay Report Signed Patient: Denise Lantigua MR#: [id number] : 1980 Acct:[id number] Age/Sex: 43 / M ADM Date: 05/31/23 Loc: [facility] Room: Type: [facility] Attending Dr: Shaquille Remy MD Copies to: [...] Emil Jain M.D.05/31/2023 4:33 PM Dictation Location: [place] [address] Transcribed By: [facility] 05/31/23 1633 Dictated By: Emil Jain II, MD 05/31/23 1629 Signed By: 05/31/23 1633 [facility] XR thoracic spine 2V [facility] [employer] Other XR thoracic spine 2V [facility] [employer] Other XR thoracic spine 2V [address] [place] [address] [employer] Other XR thoracic [place] [address] [address] [employer] Other XR thoracic spine 2V XRay Report [facility] [employer] Other XR thoracic spine 2V Signed [facility] [email or web address] Other XR thoracic spine 2V Patient: [place] Lantigua MR#: [id number] [employer] Other XR thoracic spine 2V 8 [facility] [email or web address] Other XR thoracic spine 2V : 1980 Acct:[id number] [employer] Other XR thoracic spine 2V Age/Sex: 43 / M ADM Date: 05/31/23 [employer] Other XR thoracic spine 2V Loc: [facility] Room: Typ e: [facility] [employer] Other XR thoracic spine 2V Attending Dr: Huong Remy MD [employer] Other XR thoracic spine 2V Copies to: Shaquille Remy MD [employer] Other XR thoracic spine 2V Ordering Provider: Shaquille Remy MD [employer] Other XR thoracic spine 2V Date of Service: 05/31/23 [employer] Other XR thoracic spine 2V XR/XR thoracic spine 2V: Thoracic back pain [employer] Other XR thoracic spine 2V XR thoracic spine 2 V 05/31/2023 4:17 PM [employer] Other XR thoracic spine 2V SIGNS AND SYMPTOMS: [employer] Other XR thoracic spine 2V Thoracic back pain [employer] Other XR thoracic spine 2V PROTOCOLS: Frontal and lateral radiograph thoracic spine. [employer] Other XR thoracic spine 2V COMPARISON: None [employer] Other XR thoracic spine 2V FINDINGS: Nort [email or web address] Other XR thoracic spine 2V The bones are in anatomic alignment with preservation of vertebral body heights. There is a spinal [employer] Other XR thoracic spine 2V cord stimulator wit h the leads extending to the mid T6 vertebral body level. No evidence of fracture [employer] Other XR thoracic spine 2V or bony destructive lesion. [employer] Other XR thoracic spine 2V XR/XR thoracic spine 2V [employer] Other XR thoracic spine 2V IMPRESSION: Nor [employer] Other XR thoracic spine 2V There is a spinal c ord stimulator with the leads extending to the mid T6 vertebral body level. [employer] Other XR thoracic spine 2V No acute bony injury. [employer] Other XR thoracic spine 2V Impression dictated by: Emil Jain M.D.05/31/2023 4:33 PM [employer] Other XR thoracic spine 2V Dictation Location: [employer]- [employer] Other XR thoracic spine 2V Transcribed By: PWS 05/31/23 1633 [employer] Other XR thoracic spine 2V Dictated By: Emil Jain II, MD 05/31/23 1629 [employer] Other XR thoracic spine 2V Signed By: Roc[employer] Other XR thoracic spine 2V 05/31/23 1633 N [employer] Other MISCELLANEOUS CULT./SM.BACT. on 01-25-2023 MISCELLANEOUS CULT./SM.BACT. PATIENT: DENISE LANTIGUA LOCATION: [facility]#: [id number] : 76 AGE: SEX: M ORDERED BY: TOMASZ POWER SOURCE: WOUND/ABSCESS COLLECTED: 01/25/23 14:27 ANTIBIOTICS AT BAILEE.: RECEIVED : 01/25/23 22:07 SITE: THORACIC WOUND R E S U L T S GRAM STAIN FINAL 01/26/23 00:02 NO GRANULOCYTES OR ORGANISMS SEEN. MISCELLANEOUS CULT./SM.BACT. FINAL 01/27/23 11:44 NO GROWTH AEROBICALLY OR ANAEROBICALLY. Normal [facility] Comment on above: Performed By: #### M [facility] #### [employer] [address] [place] [address] Order Reconciliationon 01-25 Order Reconciliation Page 1 [...] 1 cap(s) orally once a day Normal [facility] Patient Profile - Preop v3on 01-25-2023 Patient Profile - Preop v3 Patient Profile - Preop: Initial Info: Patient DemographicsName: DENISE LANTIGUA Date: 1980 Address: [address] [place] [address], [id number] Primary Phone [phone] Instructions Givenappropriate clothing, bring list of medications, bring responsible adult as the lifter/driver (procedure may be cancelled if no lifter/driver), center location, insurance information, remove jewerly/piercings How to be AddressedRYAN Spoken Language PreferredEnglish Source of Informationpatient Stated Reason for AdmissionSPINAL CORD STIMULATOR REVISION Primary Contact Name and NumberConnie S.O. [phone] Limitations on Visitors/Phone Callsnone Medications Brought to Hospitalno General Health: Weight in kg76.3 kilogram(s) Weight in sec851.2 pound(s) Weight Methodactual (measured) Scale Typechair Height [...] other Living Arrangementshouse Resource/Environmental Concernsnone Anticipated Transition [place] [facility] Anticipated at Transitionnone Tobacco Use: Tobacco Useyes Last Tobacco [id number] Number of Packs per Day0.5 Pre-op Checklist: Arrival [id number] Arrival Time12:33 Procedure TypeSpinal Cord Stimulator Revision NPOyes Last Food [id number]-6925 21:00 Last Clear Fluid [id number]-Gov-6332 05:30 NPO CommentSips with Meds ID Band On Patientpatient ID (name) Consent Signedyes H&P Completeyes Anesthesia Assessment Completedyes EKG Performednot ordered Chest X-Ray Performednot ordered Preop Antibioticssent to OR Beta-alfonzo Last Dose Date/Wozf56-Vpf-6884 05:30 COVID 19 Results in Last 7 [...] 13:45 by Mora Sadler (NUBIA GRANADO) Normal [facility] CBCon 01-19-2023 Erythrocyte distribution width (RBC) [Ratio] 14.8 % High 11.5 - 14.5 [facility] Comment on above: Performed By: #### C BC #### [facility] [address] [place] [address] Hematocrit (Bld) [Volume fraction] 45.6 % Normal 41.0 - 52.0 [facility] Comment on above: Performed By: #### C BC #### [address] [place] [address] Hemoglobin (Bld) [Mass/Vol] 14.7 g/dL Normal 13.5 - 17.5 [facility] Comment on above: Performed By: #### C BC #### [address] [place] [address] MCHC (RBC) [Mass/Vol] 32.2 g/dL Normal 32.0 - 36.0 [facility] Comment on above: Performed By: #### C BC #### [address] [place] [address] MCV (RBC) [Entitic vol] 87 fL Normal 80 - 100 [facility] Comment on above: Performed By: #### C BC #### [address] [place] [address] NUCLEATED RBC 0.0 /100 WBC Normal 0.0 - 0.0 [facility] Comment on above: Performed By: #### C BC #### [address] [place] [address] Platelets (Bld) [#/Vol] 332 10*3/uL Normal 150 - 450 [facility] Comment on above: Performed By: #### C BC #### [address] [place] [address] RBC 5.23 x10E12/L Normal 4.50 - 5.90 [facility] Comment on above: Performed By: #### C BC #### [address] [place] [address] WBC (Bld) [#/Vol] 11.8 10*3/uL High 4.4 - 11.3 [facility] Comment on above: Performed By: #### C BC #### [address] [place] [address] COMPREHENSIVE PANELon 2022 Albumin [Mass/Vol] 4.5 g/dL Normal 3.4 - 5.0 [facility] Comment on above: Performed By: #### C MP #### [address] [place] [address] ALP [Catalytic activity/Vol] 84 U/L Normal 33 - 120 [facility] Comment on above: Performed By: #### C MP #### [address] [place] [address] ALT [Catalytic activity/Vol] 32 U/L Normal 10 - 52 [facility] Comment on above: Result Comment: Janet ents treated with Sulfasalazine may generate falsely decreased results for ALT. Performed By: #### C MP #### [address] [place] [address] Anion gap [Moles/Vol] 9 mmol/L Low 10 - 20 [facility] Comment on above: Performed By: #### C MP #### [address] [place] [address] AST [Catalytic activity/Vol] 19 U/L Normal 9 - 39 [facility] Comment on above: Performed By: #### C MP #### [address] [place] [address] Bilirubin [Mass/Vol] 0.4 mg/dL Normal 0.0 - 1.2 [facility] Comment on above: Performed By: #### C MP #### [address] [place] [address] Calcium [Mass/Vol] 9.9 mg/dL Normal 8.6 - 10.3 [facility] Comment on above: Performed By: #### C MP #### [address] [place] [address] Chloride [Moles/Vol] 101 mmol/L Normal 98 - 107 [facility] Comment on above: Performed By: #### C MP #### [address] [place] [address] Creatinine [Mass/Vol] 1.06 mg/dL Normal 0.50 - 1.30 [facility] Comment on above: Performed By: #### C MP #### [address] [place] [address] GFR/1.73 sq M.predicted among non-blacks MDRD (S/P/Bld) [Vol rate/Area] 88 mL/min/{1.73_m2} Normal >90 [facility] Comment on above: Result Comment: CALC ULATIONS OF ESTIMATED GFR ARE PERFORMED USING THE 2020 CKD-EPI STUDY REFIT EQUATION WITHOUT THE RACE VARIABLE FOR THE IDMS-TRACEABLE CREATININE METHODS. https://jasn.asnjournals.org/content//ASN.861542 7229 Performed By: #### C MP #### [address] [place] [address] Glucose [Mass/Vol] 86 mg/dL Normal 74 - 99 [facility] Comment on above: Performed By: #### C MP #### [address] [place] [address] HCO3 (Bld) [Moles/Vol] 31 mmol/L Normal 21 - 32 [facility] Comment on above: Performed By: #### C MP #### [address] [place] [address] Potassium [Moles/Vol] 3.8 mmol/L Normal 3.5 - 5.3 [facility] Comment on above: Performed By: #### C MP #### [address] [place] [address] Protein [Mass/Vol] 7.2 g/dL Normal 6.4 - 8.2 [facility] Comment on above: Performed By: #### C MP #### [address] [place] [address] Sodium [Moles/Vol] 137 mmol/L Normal 136 - 145 [facility] Comment on above: Performed By: #### C MP #### [address] [place] [address] Urea nitrogen [Mass/Vol] 10 mg/dL Normal 6 - 23 [facility] Comment on above: Performed By: #### C MP #### [address] [place] [address] STAPH/MRSA SCREENon 01-20-20 STAPH/MRSA SCREEN PATIENT: AFRICA LANTIGUA LOCATION: [facility]#: [id number] : 76 AGE: SEX: M ORDERED BY: TOMASZ [facility] COLLECTED: 01/19/23 09:27 ANTIBIOTICS AT BAILEE.: RECEIVED : 01/19/23 23:36 SITE: NARES, NARES, AXILLA, GROIN R E S U L T S STAPH/MRSA SCREEN FINAL 01/21/23 13:05 ISOLATE1 : Staphylococcus aureus METHICILLIN SENSITIVE STAPHYLOCOCCUS AUREUS (MSSA) Normal [facility] [place] on above: Performed By: #### S TAPH #### [facility] [address] [place] [address] CULTURE WOUNDon 12-28-2022 CULTURE WOUND Culture Observations : NO GROWTH OF AEROBES AT 48 HRS. Culture Observations: NO GROWTH OF ANAEROBES AT 72 HOURS. Normal [facility] Comment on above: Performed By: #### W OUNDCX #### [facility] [address] [place] [address] Dr. Anaya Gerard Order Reconciliationon 12-14 Order [...] total o (more content not included)... Normal [facility] [place] Profile - Preop v3on 12-14-2022 Patient Profile - Preop v3 Patient Profile - Preop: Initial Info: Patient DemographicsName: DENISE LANTIGUA Date: 1980 Address: [address] [place], [place] [id number] Primary Phone [phone] How to be AddressedRyan Spoken Language PreferredEnglish Source of Informationpatient Stated Reason for Admissionback surgery Primary Contact Name and NumberConnie [phone] Limitations on Visitors/Phone Callsnone Medications Brought to Hospitalno General Health: Weight in kg75.8 kilogram(s) Weight in xgm497.1 pound(s) Weight Methodactual (measured) Scale Typechair Height [...] other Living Arrangementshouse Resource/Environmental Concernsnone Anticipated Transition [place] [facility] Anticipated at Transitionnone Tobacco Use: Tobacco Useyes Tobacco Typecigarettes Last Tobacco [id number] Number of Packs per Day0.5 Number of yrs30 Pack yrs15 Pre-op Checklist: Arrival [id number] Arrival Time06:15 Procedure TypeLaminectomy for insertion of spinal cord stimulator NPOyes Last Food [id number] 19:00 Last Clear Fluid [id number] 03:00 ID Band On Patientpatient ID (name) H&P Completeyes EKG Performednot ordered Preop Antibioticssent to OR Beta-alfonzo Last Dose Date/[id number]-2120 03:00 Type and Screen Resultedn/a Chlorhexadine Bath [...] 14-Dec-2022 06:58 by Isabel Contreras (STAFF N) [facility] [place]/MRSA SCREENon 12-03-19 23 STAPH/MRSA SCREEN PATIENT: AFRICA LANTIGUA LOCATION: [facility] BILL#: [id number] : 76 AGE: SEX: M ORDERED BY: TOMASZ POWER SOURCE: ANTERIOR NARES COLLECTED: 12/03/22 13:42 ANTIBIOTICS AT ABILEE.: RECEIVED : 12/03/22 22:15 SITE: bilateral R E S U L T S STAPH/MRSA SCREEN FINAL 12/05/22 11:18 NO Staphylococcus aureus ISOLATED. Normal [facility] Comment on above: Performed By: #### S [facility] #### [facility] [address] [place] [address] XR Chest 2 Views*on 02-26-20 XR Chest [...] by Keven Puri on 02/25/2022 0902 Normal [facility] CT ANGIO CORONARY ARTERIES W C EVAL [...] THE INCLUDED NON-CARDIOVASCULAR STRUCTURES Electronically signed by: EMLI PANIAGUA MD Addendum Ends Patient Name: DENISE LANTIGUA STUDY: CT ANGIO CORONARY ARTERIES W C EVAL OF CARDIAC STRUCTURE MORPHOLOGY; 12/29/2021 1:47 pm INDICATION: Coronary artery aneurysm. COMPARISON: None. ACCESSION NUMBER(S): [id number] ORDERING CLINICIAN: KATIE SALGUERO TECHNIQUE: Using multi-detector [...] vein. PERICARDIUM: (more content not included)... Normal [facility] Complete Blood Count with Au to Diffon 12-24-2021 Basophils (Bld) [#/Vol] 0.13 10*3/uL Normal 0.00-0.20 [facility] Comment on above: Performed By: #### C BCAD, LIPD, CMP #### [facility] [address] [place], [place] [id number] Basophils/100 WBC (Bld) 1.5 % Normal [facility] Comment on above: Performed By: #### C BCAD, LIPD, CMP #### [facility] [address] [place], [place] [id number] Eosinophils (Bld) [#/Vol] 0.14 10*3/uL Normal 0.02-0.50 [facility] Comment on above: Performed By: #### C BCAD, LIPD, CMP #### [facility] [address] [place], [place] [id number] Eosinophils/100 WBC (Bld) 1.6 % Normal [facility] Comment on above: Performed By: #### C BCAD, LIPD, CMP #### [facility] [address] [place], [place] [id number] Erythrocyte distribution width (RBC) [Ratio] 14.3 % Normal 11.0-15.0 [facility] Comment on above: Performed By: #### C BCAD, LIPD, CMP #### [facility] [address] [place], [place] [id number] Hematocrit (Bld) [Volume fraction] 47.1 % Normal 38.5-50.0 [facility] Comment on above: Performed By: #### C BCAD, LIPD, CMP #### [facility] [address] [place], [place] [id number] Hemoglobin (Bld) [Mass/Vol] 15.4 g/dL Normal 13.0-17.1 [facility] Comment on above: Performed By: #### C BCAD, LIPD, CMP #### [facility] [address] [place], [place] [id number] Lymphocytes (Bld) [#/Vol] 3.0 10*3/uL Normal 0.9-3.9 [facility] Comment on above: Performed By: #### C BCAD, LIPD, CMP #### [facility] [address] [place], [place] [id number] Lymphocytes/100 WBC (Bld) 33.2 % Normal [facility] Comment on above: Performed By: #### C BCAD, LIPD, CMP #### [facility] [address] [place], [place] [id number] MCH (RBC) [Entitic mass] 28.4 pg Normal 27.0-33.0 [facility] Comment on above: Performed By: #### C BCAD, LIPD, CMP #### [facility] [address] [place], [place] [id number] MCHC (RBC) [Mass/Vol] 32.7 g/dL Normal 32.0-36.0 [facility] Comment on above: Performed By: #### C BCAD, LIPD, CMP #### [facility] [address] [place], [place] [id number] MCV (RBC) [Entitic vol] 87 fL Normal 80-100 [facility] Comment on above: Performed By: #### C BCAD, LIPD, CMP #### [facility] [address] [place], [place] [id number] Monocytes (Bld) [#/Vol] 0.6 10*3/uL Normal 0.2-0.9 [facility] Comment on above: Performed By: #### C BCAD, LIPD, CMP #### [facility] [address] [place], [place] [id number] Monocytes/100 WBC (Bld) 7.0 % Normal [facility] Comment on above: Performed By: #### C BCAD, LIPD, CMP #### [facility] [address] [place], [place] [id number] Neutrophils (Bld) [#/Vol] 5.0 10*3/uL Normal 1.5-7.8 [facility] Comment on above: Performed By: #### C BCAD, LIPD, CMP #### [facility] [address] [place], [place] [id number] Neutrophils/100 WBC (Bld) 56.2 % Normal [facility] Comment on above: Performed By: #### C BCAD, LIPD, CMP #### [facility] [address] [place], [place] [id number] Platelet mean volume (Bld) [Entitic vol] 10.40 fL Normal 7.50-12.50 [facility] Comment on above: Performed By: #### C BCAD, LIPD, CMP #### [facility] [address] [place], [place] [id number] Platelets (Bld) [#/Vol] 345 10*3/uL Normal 140-400 [facility] Comment on above: Performed By: #### C BCAD, LIPD, CMP #### [facility] [address] [place], [place] [id number] RBC (Bld) [#/Vol] 5.42 10*6/uL Normal 4.20-5.80 [facility] Comment on above: Performed By: #### C BCAD, LIPD, CMP #### [facility] [address] [place], [place] [id number] RDW-SD 45.7 fL Normal 37.0-50.0 [facility] Comment on above: Performed By: #### C BCAD, LIPD, CMP #### [facility] [address] [place], [place] [id number] WBC (Bld) [#/Vol] 8.9 10*3/uL Normal 3.8-11.0 [facility] Comment on above: Performed By: #### C BCAD, LIPD, CMP #### [facility] [address] [place], [place] [id number] Comprehensive Metabolic Pane helder 12-24-2021 Albumin [Mass/Vol] 4.8 g/dL Normal 3.6-5.1 [facility] Comment on above: Performed By: #### C BCAD, LIPD, CMP #### [facility] [address] [place], [place] [id number] Albumin/Globulin [Mass ratio] 2.0 {ratio} Normal 1.0-2.5 [facility] Comment on above: Performed By: #### C BCAD, LIPD, CMP #### [facility] [address] [place], [place] [id number] ALP [Catalytic activity/Vol] 90 U/L Normal 40-129 [facility] Comment on above: Performed By: #### C BCAD, LIPD, CMP #### [facility] [address] [place], [place] [id number] ALT [Catalytic activity/Vol] 16 U/L Normal 9-46 [facility] Comment on above: Result Comment: 09/09 Female reference range changed. Performed By: #### C BCAD, LIPD, CMP #### [facility] [address] [place], [place] [id number] Anion gap [Moles/Vol] 19 mmol/L Normal 12-20 [facility] Comment on above: Result Comment: Effe ctive 10/15/2019 reference range changed. Performed By: #### C BCAD, LIPD, CMP #### [facility] [address] [place], [place] [id number] AST [Catalytic activity/Vol] 17 U/L Normal 10-40 [facility] Comment on above: Performed By: #### C BCAD, LIPD, CMP #### [facility] [address] [place], [place] [id number] Bilirubin [Mass/Vol] 0.40 mg/dL Normal 0.30-1.20 [facility] Comment on above: Performed By: #### C BCAD, LIPD, CMP #### [facility] [address] [place], [place] [id number] BUN/CREA 10 Ratio Normal 6-22 [facility] Comment on above: Performed By: #### C BCAD, LIPD, CMP #### [facility] [address] [place] [id number] Calcium [Mass/Vol] 9.3 mg/dL Normal 8.6-10.2 Rob del[facility] [employer] Comment on above: Performed By: #### C BCAD, LIPD, CMP #### [facility] [address] [place], [place] [id number] Chloride [Moles/Vol] 102 mmol/L Normal 98-107 [facility] Comment on above: Performed By: #### C BCAD, LIPD, CMP #### [facility] [address] [place] [id number] CO2 [Moles/Vol] 24 mmol/L Normal 20-31 [facility] Comment on above: Performed By: #### C BCAD, LIPD, CMP #### [facility] [address] [place] [id number] Creatinine [Mass/Vol] 1.0 mg/dL Normal 0.7-1.4 [facility] Comment on above: Performed By: #### C BCAD, LIPD, CMP #### [facility] [address] [facility] [place] [id number] eGFRAA 96 mL/min/1.73m2 Normal >60 [facility] Comment on above: Performed By: #### C BCAD, LIPD, CMP #### [facility] [address] [place], [place] [id number] eGFRNAA 79 mL/min/1.73m2 Normal >60 [facility] [employer] Comment on above: Performed By: #### C BCAD, LIPD, CMP #### [facility] [address] [place] [id number] Globulin (S) [Mass/Vol] 2.4 g/dL Normal 1.9-3.7 [facility] [employer] Comment on above: Performed By: #### C BCAD, LIPD, CMP #### [facility] [address] [place] [id number] Glucose [Mass/Vol] 100 mg/dL High 65-99 [facility] [employer] Comment on above: Result Comment: For FASTING Glucose --- ADA reference ranges: Normal 65-99 mg/dl Prediabetes 100-125 Diabetes >/= 126 Performed By: #### C BCAD, LIPD, CMP #### [facility] [address] [place], [place] [id number] Potassium [Moles/Vol] 4.5 mmol/L Normal 3.5-5.5 Brannon joe [employer] Comment on above: Result Comment: Spec imen is hemolyzed. Results may be affected. Performed By: #### C BCAD, LIPD, CMP #### [facility] [address] [place], [place] [id number] Protein [Mass/Vol] 7.2 g/dL Normal 6.1-8.1 Rob delacruz [employer] Comment on above: Performed By: #### C BCAD, LIPD, CMP #### [facility] [address] [place], [place] [id number] Sodium [Moles/Vol] 140 mmol/L Normal 135-146 Rob delacruz [employer] Comment on above: Performed By: #### C BCAD, LIPD, CMP #### [facility] [address] [place], [place] [id number] Urea nitrogen [Mass/Vol] 10 mg/dL Normal 7-25 [facility] [employer] Comment on above: Performed By: #### C BCAD, LIPD, CMP #### [facility] [address] [place], [place] [id number] Lipid Panelon 12-24-2021 Cholesterol [Mass/Vol] 333 mg/dL High 125-200 [facility] [employer] Comment on above: Result Comment: Low risk < 200mg/dL Borderline risk 201-239 mg/dl High risk > or equal to 240 Performed By: #### C BCAD, LIPD, CMP #### [facility] [address] [place], [place] [id number] Cholesterol in HDL [Mass/Vol] 34 mg/dL Low >40 [facility] [employer] Comment on above: Result Comment: High Cardiovascular Risk HDL <40 mg/dL Low Cardiovascular Risk HDL > or equal to 60 mg/dl Performed By: #### C BCAD, LIPD, CMP #### [facility] [address] [place], [place] [id number] Cholesterol in LDL [Mass/Vol] 247 mg/dL Normal [facility] Comment on above: Result Comment: LDL ATP III CLASSIFICATION LDL less than 100 mg/dl Optimal LDL 100-129 mg/dl Near or above optimal LDL 130-159 Borderline high LDL 160-189 High LDL greater than 189 mg/dl Very High Performed By: #### C BCAD, LIPD, CMP #### [facility] [address] [place], [place] [id number] Cholesterol in VLDL [Mass/Vol] 52 mg/dL Normal [facility] Comment on above: Performed By: #### C BCAD, LIPD, CMP #### [facility] [address] [place], [place] [id number] Cholesterol.total/Cho lesterol in HDL [Mass ratio] 10 {ratio} Normal [facility] Comment on above: Performed By: #### C BCAD, LIPD, CMP #### [facility] [address] [place], [place] [id number] Triglyceride [Mass/Vol] 262 mg/dL High 30-150 [facility] [employer] Comment on above: Result Comment: TRIG ATPIII CLASSIFICATIONS TRIG less than 150 mg/dl Normal TRIG 150-199 mg/dl Borderline High TRIG 200-500 mg/dl High TRIG greather than 500 mg/dl Very High Performed By: #### C BCAD, LIPD, CMP #### [facility] [address] [place], [place] [id number] Microalbumin (with Creat)on 12-24-2021 mALB <1.2 Low [facility] Comment on above: Result Comment: Unab le to calculate mALB/Crea ratio, mALB is <1.2 mg/dL mALB reference range not established. Performed By: #### m ALBC #### [facility] [address] [place], [place] [id number] UCREA 222 mg/dL Normal 39-259 [facility] [employer] Comment on above: Performed By: #### m ALBC #### [facility] [address] [place], [place] [id number] Q - URINALYSIS,COMPLETEon Appearance (U) CLEAR Normal CLEAR [facility] [employer] Comment on above: Order Comment: [facility] performed at: [employer], [email or web address] [facility], [address] [facility], [address] [place] [address], [address] [place] [address], Oncology Technician: River Anna MD [facility] Date/Time: [facility] Results Received Date/Time: [facility] Reported Date/Time: Performed By: #### 3 4F #### [facility] [address] [place] [address] BACTERIA NONE SEEN Normal NONE SEEN [facility] [employer] Comment on above: Order Comment: [facility] performed at: [employer], [email or web address] [facility], [address] [facility], [address] [place] [address], [address] [place] [address], Oncology Technician: River Anna MD [facility] Date/Time: [facility] Results Received Date/Time: [facility] Reported Date/Time: Performed By: #### 3 4F #### [facility] [address] [place] [address] Bilirubin Ql (U) Negative Normal NEGATIVE [facility] [employer] Comment on above: Order Comment: [facility] performed at: [employer] [facility], [address] [facility], [address] [place] [address], [address] [place] [address], Oncology Technician: River Anna MD [facility] Date/Time: [facility] Results Received Date/Time: [facility] Reported Date/Time: Performed By: #### 3 4F #### [facility] [address] [place] [address] Color (U) YELLOW Normal YELLOW [facility] [employer] Comment on above: Order Comment: [facility] performed at: [employer] [facility], [address] [facility], [address] [place] [address], [address] [place] [address], Oncology Technician: River Anna MD [facility] Date/Time: [facility] Results Received Date/Time: [facility] Reported Date/Time: Performed By: #### 3 4F #### [facility] [address] [place] [address] Glucose Ql (U) Negative Normal NEGATIVE [facility] [employer] Comment on above: Order Comment: [facility] performed at: [employer], [email or web address] [facility], [address] [facility], [address] [place] [address], [address] [place] [address], Oncology Technician: River Anna MD [facility] Date/Time: [facility] Results Received Date/Time: [facility] Reported Date/Time: Performed By: #### 3 4F #### [facility] [address] [place] [address] HYALINE CAST NONE SEEN Normal NONE SEEN [facility] [employer] Comment on above: Order Comment: [facility] performed at: [employer], [employer] [facility], [address] [facility], [address] [place] [address], [address] [place] [address], Oncology Technician: River Anna MD [facility] Date/Time: [facility] Results Received Date/Time: [facility] Reported Date/Time: Performed By: #### 3 4F #### [facility] [address] [place] [address] Ketones Ql (U) Negative Normal NEGATIVE [facility] [employer] Comment on above: Order Comment: [facility] performed at: Q, [email or web address] [facility], [address] , [address] [place] [address], [address] [place] [address], Oncology Technician: River Anna MD [facility] Date/Time: [facility] Results Received Date/Time: [facility] Reported Date/Time: Performed By: #### 3 4F #### [facility] [address] [place] [address] Leukocyte esterase Test strip Ql (U) Negative Normal NEGATIVE [facility] [employer] Comment on above: Order Comment: [facility] performed at: [facility], [email or web address] [facility], [address] [facility], [address] [place] [address], [address] [place] [address], Oncology Technician: River Anna MD [facility] Date/Time: [facility] Results Received Date/Time: [facility] Reported Date/Time: Performed By: #### 3 4F #### [facility] [address] [place] [address] Nitrite Ql (U) Negative Normal NEGATIVE [facility] [employer] Comment on above: Order Comment: [facility] performed at: [employer], [email or web address] [facility], [address] , [address] [place] [address], [address] [place] [address], Oncology Technician: River Anna MD [facility] Date/Time: [facility] Results Received Date/Time: [facility] Reported Date/Time: Performed By: #### 3 4F #### [facility] [address] [place] [address] OCCULT BLOOD Negative Normal NEGATIVE [facility] [employer] Comment on above: Order Comment: [facility] performed at: [employer], [email or web address] [facility], [address] , [address] [place] [address], [address] [place] [address], Oncology Technician: River Anna MD [facility] Date/Time: [facility] Results Received Date/Time: [facility] Reported Date/Time: Performed By: #### 3 4F #### [facility] [address] [place] [address] pH (U) 5.5 [pH] Normal 5.0-8.0 [facility] [employer] Comment on above: Order Comment: [facility] performed at: [employer], [email or web address] [facility], [address] , [address] [place] [address], [address] [place] [address], Oncology Technician: River Anna MD [facility] Date/Time: [facility] Results Received Date/Time: [facility] Reported Date/Time: Performed By: #### 3 4F #### [facility] [address] [place] [address] Protein Ql (U) Negative Normal NEGATIVE [place] [employer] Comment on above: Order Comment: [facility] performed at: [employer], [email or web address] [facility], [address] [facility], [address] [place] [address], [address] [place] [address], Oncology Technician: River Anna MD [facility] Date/Time: [facility] Results Received Date/Time: [facility] Reported Date/Time: Performed By: #### 3 4F #### [facility] [address] [place] [address] RBC NONE SEEN Normal < OR = 2 [facility] [employer] Comment on above: Order Comment: [facility] performed at: [employer], [email or web address] [facility], [address] [place] [address], [address] [place] [address], [address] [place] [address], Oncology Technician: River Anna MD [facility] Date/Time: [facility] Results Received Date/Time: [facility] Reported Date/Time: Performed By: #### 3 4F #### [facility] [address] [place] [address] Specific gravity (U) [Rel density] 1.024 Normal 1.001-1.035 [facility] [employer] Comment on above: Order Comment: [facility] performed at: [employer], [email or web address] [facility], [address] [facility], [address] [place] [address], [address] [place] [address], Oncology Technician: River Anna MD [facility] Date/Time: [facility] Results Received Date/Time: [facility] Reported Date/Time: Performed By: #### 3 4F #### [facility] [address] [place] [address] SQUAMOUS EPITHELIAL CELLS NONE SEEN Normal < OR = 5 [facility] [employer] Comment on above: Order Comment: [facility] performed at: [employer], [email or web address] [facility], [address] , [address] [place] [address], [address] [place] [address], Oncology Technician: River Anna MD [facility] Date/Time: [facility] Results Received Date/Time: [facility] Reported Date/Time: Performed By: #### 3 4F #### [facility] Laboratory Default [address] [place] [address] WBC NONE SEEN Normal < OR = 5 [facility] [employer] Comment on above: Order Comment: [facility] Testing performed at: QPT, [facility], [address], [address] [facility], [place], [address], Oncology Technician: River Anna MD [facility] Collection Date/Time: [facility] Results Received Date/Time: [facility] Reported Date/Time: Performed By: #### 3 4F #### [facility] Default [address] [place] [address] CT CARD[address]ORING[address] 022 CT CARDIAC SCORING [...] E78.5 Hyperlipidemia, unspecified. COMPARISON: None. ACCESSION NUMBER(S): [id number] ORDERING CLINICIAN: KATIE SALGUERO TECHNIQUE: Using prospective [...] coronary heart disease events. According to the [employer] Clinical Expert Consensus [...] modify other non-lipid coronary risk factors. Reference: [place] P et al. Circulation. 2007; 115:402-426 [employer] Commanding Officer: Dr. Karissa Reyes, Date: 12/01/2021 2:10 pm Electronically signed by: NOEMÍ MCGARRY MD [facility] Consent Formson 07-07-2021 Consent Forms [id number]#[address] [facility] Provider Orderson 07-06-2021 Provider Orders [id number]#[address] [facility] Consent Formson 07-02-2021 Consent Forms [id number]#[address]00[address] [facility] Coding Summaryon 07-01-2021 Coding Summary HTMLBase 64 BgpemqfcEHk2mRr+PGhlYWQ +NA9OBYXuJ16isSCtfU8NG1 xFZQ0NRBHEIZXMZL7PAA3mv BZ2WFbrZ3JxdiNt JvgboNAcPD50GEu7YTH4wWw aXRenpO3slKNyZ5q1UzRqOS 02mQ62NBvuMLMsPjJ4EyTvs jsgbWFy T0sbCgPwbATcCgw+PHRhYmx lIHdpZHRoPScxMDAlJyBzdH eaNF5qLa6dBMWpLTLanGlyv HNlOiBj g5cwXQFyNEudQY5vqLrwY1C ooYU2KYEhd0t2Ue61qHH+PH CmOAV0mBwdUFlri620VcVun 1rvCFG9 oIPtMBazRFO4J86xy6L6KGA wLDMsQML1cPW3iI6ahLgwdj wgB8QlpYKvHqX0FUX1fUBqa M0aqNsv acgpxG3lFzz+K09EBG8WUEE UUP5BHud6M9KfFqnloOV+PC 61MZLpHG46mNFaoOMdu4kpu Tk7YfYb RXKzMNA4uOeoZLuod3HpQJD aG34cbXXnx9W9LXMhoIajlZ CsYuKjvNB1uW0tWWnegzgfs 2hvdzsn Siiyi7dpqh99nW42R04jUJc zVDKnRZL4XZUwDQQgjYurdc 4ciM3wTf1+SYyzo1crl3vww Dy0BmMc ZAMbqvTkrPluTBX6e9DiXi3 6W5AarEkpt9AcWkv9vn49jX Ujx7P0nHA1OUfgEZAuuQ6gE WxlZnQ6 PFTiOnPxhV27lFMcAGqwUs4 iwLgtlCciVT7pTNJmkubiUS EveM5jUENhgCSnmZbjXA1cR TBpbjtm x396SxFtBWA8KGFjwDFgI7A vfD6hYeXhHTQcALZuX1YgcT OxMRooN075JGvzBbG5OFAnt hDbS4Bc TNMpmAtzYrN8y1V9Kj6Xm4F bypxyBUS6LBhbMMN4JiRbLo VhCpS0V3ZxQvb6MLBveBdqD N4sO5Fk TKEngbolsnxsdXK1JETmYZQ abX46bQDyZHxtKc9or3W7n8 74UHFbPFBjlK13Dj6osTadR TBwdCBU vG8hovcrp7yapsoiFdTlFRG iBBr3LRs0CXRbzXmpMuHgRS E2RrE7UXQ8eXBnxI3rdMwxj kpifG9v Oyc+H67wgS5uJFO8XFT7ouk xEUZheeXbXO37HK59W5VhUd wvdGFibGU+PGRpdiBzdHlsZ A6nFuJt z7ppe6MjTOhyH0ZrTIXzZMl sStt9KDIiIFE2oGL6wF9jJE JxFEytj7X9kYB7M5KeuuJnx x1vq7gr UDJyPZsvT52iwYBzj5Z9JKB ivDS5ZWHbqPgiJrTnlW55Sc c+OBAqnJebn4EdPuyyt1awa 2npuIv7 RfCuEWVuzfRciAyjDSA2n5R oHo84K15hJGqyJUGgOHNxIW AfWYDpuQqcgn3omN9aAt3+P GNvbCB3 bFS8uW3bCCQvBqL5XQbxB65 3OyDgpUSqCvuhm4hyn2hbpD d8ZqYpLVMmjwOqoAptCJB5z 5MrJn44 A99iVBjpIXHfMHRzYVXnLJF tzDmbgd6euL0qGi2+PC9jb2 iaix46aA00mUO+WXDcVZH7e WxlPSdw XPAklU1kYGlrIsV0JHMcWqF qrP25bLQiADgxIk6hhUcpxW ruCX9jMYKhgyiqa401LcRgq 2xkIDEw cAXlMFspVPY7I09jk7S3VVY fUCSlVSI1jGR7vY5hmJavuy ogbGVmdDsgdmVydGljYWwtY MjqV242 IHRvcDsnPlBhdGllbnQgTmF dWJs5Q8ClHdb1SNPksShkNN 9qsGSqAJswEc3joPhgxKtcQ B2rUGLg hbivl038FvNts8efFDShvTS kZNygICN9J04ub4U0JUFjZC LvSCD4xFA3xJ4fcBsacjwga GVmdDsg boRiaDsiMFmxEFjsQ161GKD txIkzVpEvbyKnIDMxsMB0SM 33SW89fNRve7S9oKF1Z1XxH GRpbmct cvjteEO4FUFpKPQdiA32Py6 fyCqoYe0hAZKxRPU2KEDurC QjF7EttK1tFwKwVMNeSKKfQ 3RleHQt JLxnM358KBofQaP6XDPxmgJ eV7WsUKYalOpdGjA2i3Z2Nu 6UU6L3HD03ZP90qGKbw3S0l BG9K5Cm FYBjoecctjjufKY7WZLhPZT jpM43Hj9wbLpuUl4dYNVgZI U7KPVoaGQiV7OatE6iEdJnJ DAwMDAw H0KtoXVmCCefH821MUckRqV 3SMEzimLsF7YpSKXtzHawSu A8a2K9Ad4ZAKr7KX79YR94p RRqh5Z9 aUP6I2KnXSBykfpavqmecDR 1IYKbNFEnlY66Ql6qtZxzRe 4yCDIbADJ4SDWmlTNtV3Rzs A3aAcIx VEWqQVKbL2PsyBObJBraA71 5RHfgHkY4SMZazyWtJ6CzJL QvuAlyWpQ7y3A6Fa0EMSYrY T87BHP0 vDR9ZW53AG34F6RgRwwfoBM ibGU+PHRhYmxlIHdpZHRoPS boUSXpKhHvgCofRB9hUs7nC GVyLWNv bIxllLReJcNww1shKNRsXNt wOZ6joHxgM3XbzNK9ZTGdn1 g4Un49G76pI4EhaQA+PGNvb QT0yOI9 bW0bExMvLzF3ZDofH171ScX flQRnZwlou3yqi6aljIm3Rb Z9HVAkjrQojDtwDTX3n2VpW r93Z11w IHdpZHRoPSIxNSUiIHZhbGl vpj7amP3nPl1+SKRcuNQ0cY W6fC9jQkIpIeT5YAndA889T nRvcCIv Ynnje0ijk1ynaOp1HvObCBL haoTxtWiyNRH1o6NvBd89N3 XvdGccr6PxVnq5it43nKEei 2J0kJX8 S1RlMYJnkrunvTOfvSaiEQ2 bAJRtpcpfDVPdfD4iFDPtX4 s8StJoGlN7JXbiX9ZngtO6E DEwcHQg LXytKXU4B20nz5T8EXTjJVK yKOZ8qKI2qV0oyFvucncveE VmdDsgdmVydGljYWwtYWxpZ 246IHRv zNybFZZkiT5lNBCauIOpdVf oBM9hOHKglneeSjYJWn8FFz bbEwfFEyCWBW38CG24eALwu 1Y9uUI7 R6OpHBAhejyksbquoRG9VTQ xOOYaiQ25zAMnYDhpWt3jx1 I7m535OZIsRLJbvA98Ou1iv DogMTBw oLWHxN3bkyvtd9ejrmygRtM yRHTrJSc8MTu6FYLfdXpvCr IqCYI8IcU6JJF8xMHsfF1sv Glnbjog bB8tRgo+ZIYjFYRsPVh5UGf vdGQ+MRUtFRV2pEjiMYfvRX HdcH6jKEFcU7k5CmLjTkV8L XauG2Ub PIYkaccrUm60yV9kUlRwXfM 1WJkeT4YuohG7YFXvzAIvYZ fhXVO9Q20xy9J0PUTaZSKrI VE9cEP2 wH5nvQoketavyWSyrSdkhbB mmFdbYOfxKGhpM152WDNgtW vjYvVnAMnaYEVcFD94FC04e YByp5N9 jJL1S1UnWZHhfrdsnfitpWN 3YRBgDIXidY23zWCyYRqvXx 2ru3V0b965KYVvGXWptX85R u4poCxu WXHvoGDNdJ9vrqgru4fpcjf tJkWvVZYqZYj2EYg6CUTvbK qpYkWgJVR5IxR2KIQ6wNNol V4caKxw atjndC5zOki+TUFMRTwvdGQ +MJEcSKR8lMopJDkoRNUxoR 7bFZVfS4c8LoNwGeY3BVmwG 3BhZGRp milzVz65hT7sXlVbGiX6HIy vY1CfzuL6ABNwgUNwBLlgOJ F2L82fw2P1NDFgQAQxTEL1k NV6rI7a bGlnbjogbGVmdDsgdmVydGl oOCohUQuxT454TQUnaKysIr CqdZDDaWTzYLZ0NN52XA09U 3RyPjwv dGFibGU+PHRhYmxlIHdpZHR iUZxkMUPtKhQayIjxVM5cSy 9yZGVyLWNvbGxhcHNlOiBjb 2xsYXBz SFuyED8feXahI5PkwXW3ADW rt6u4Ms20U40fB5WdvSD+PG XgtQW9wPP0mE2gXhZzNjG7A BeyW294 YpVvxCYaLrbfn6ajh0unvVi 6NkSkSDQqfcGiaCpxVDT9s8 LmJs53U43uGCwhCMTaPZYrI CUiIHZh jQaymz1ogY7aPj2+PGNvbCB 6pTT5yG4xVrJlNuB1DBkeP9 17FeWymNMfAvyxO01eQ5Jrp XA+PHRy Cml3QMXedRqqTH1odFAbFNk kZs9pURU8JmUkJhZgXGmpQ4 DdKSRgqzjmtdikpSP3WXPpJ DUwaW47 Ls1fcQsgJf5zSDJfPEY8VIM dpGYmZ3YwkE7hKeFfRSTcGF LyB2WdmJWoAXofK011XUtaY hI2ZSBi chKiT9BqQCLwyUqbPnC4t9S 8Ca8IwEcmcIGrLP6wNlFzJW v1L9ThZrc2NUOnvMxvFR8qy GFkZGlu Sh5tqWgdxWxyWH7jKREyimq wr643FqRcn4eaUWWswGIvEP zdSDP8X29vo7O2RJCrDFHxP TO3vMV9 nN4tlCgnmcplnMIbzGxfcbU axZdhVYvxYVhnC497VRWpeV kwPuWZKtz9V7AvNvt7CLWfs KtlXQ7j lWEmOOhqZi2fkWgpoBmlNI6 oWMJxhtqwr444RtDls7wtXL BlaSNvKJcyBWJ5V51ex9P5K CMwMDAw HGG0wGE3hB1rvUrnchkcbMB mdDsgdmVydGljYWwtYWxpZ2 81SQJkqXuuEt5GGda0G3YpL gl6ZWBc eBpmJS9dxWApLSzzUr1pgLs pxYtjOM1rEIArjxmaf061Rb Meu7sjXGXufOHpCGdzWPR3N 08dl0L6 BDKxNRZkCTB6iIH7dI0wkUo nbjogbGVmdDsgdmVydGljYW zfNDqrR255QXXzuRgjXiXka WVyOjwv dGQ+GR52pb04L9EfZqfcRvb 1AIDqSHC8qOS0tT9dKRVqVV xzm6D1cMJ7Y6ToglSfst3ax 2xsYXBz ZTo (more content not included)... [facility] Coding Summaryon 06-30-2021 Coding Summary HTMLBase 64 AatudjasICq3mIy+PGhlYWQ +PV1TWSXjY75qfAGmdR4PL4 hFKP8PLIEFMVSAVR4FBM0gw JC0IDmzN6QlclFm WxectUPpYI61QLb5FNE5hMi dYMjefB4upNJdO3y2PwPuCY 58qB01YKmkXWDwPtV1SfLen jsgbWFy O4xfCeCdxTNgIqu+PHRhYmx lIHdpZHRoPScxMDAlJyBzdH noIL2jBm9hLKDvKSCqfToit HNlOiBj g5piQOVcZTcrXB7fcAnhL7B zhYQ7RZApz0t6Sj28eVE+PH SsCHM5nIidVVfpc945WxUbj 3itNWI6 gRCsKVmjCJU5R73zk9K9IDF oPVXwCFX9eEH2dP7ofZbxex dlW8VnsAPpMbU1UIC9cXTmp D2maFgu vqcibA1lMum+S68NCP8ZAMR WBJ8LBrj0V8NgNrewbKA+PC 11KOGqOK72cTYuuDSzs1vks Il0YfPg ULGrMKM6eYehUKzid7WrGIQ tP47okHIsk3E3GHPzmChatY ZtRaButNZ9jT1jOTgsjenks 2hvdzsn Nngwh2yjzd64fN18F43iWMw yPKGkYQO3VTIxQWVluAftma 5goL4jEh2+AXnha5shd7lsv Zl7BeYb OXJturVgsExhMMC8j2UqWz5 3G2EvbLfqe1ViKaw7ev47qG Qwe5R1oPB4RHhkHHEnfQ3xS WxlZnQ6 JJQeFcHdgZ53pRKgMWwhQy6 vpGmusIerYH4zZJTxlwacSH OeyL9fUQUxoMCjzUoxQH7tP TBpbjtm g336LaBhCHW3GXHwvTPeU8S ysK7aPuPgQDIsWOLsJ7XnpT YuBBqgR602TCoeLoC7KEAwp nSbD2Gs LNTrpNczSoV9v4V0Qo0Sh6Z rxqmdBQY3CDxiZDR3SxGoZm MpLiH8L8QbVzh3ENZwiQfyL T9wD7Lh TJWahbpzjuovaUN1UGSpMUQ lrW51eLIoFOmtCt5zn7A1n0 14RQKxKLOydB96Ib1bySluR TBwdCBU eZ5oeoyhz2ehatcbGgIbKDR lLEg0GWr7MHNlyXmeDkWqOL P2QsL7TSL0uQLgxJ9qgRgsb xizdF6j Oyc+H95ujT4pPHK6IKA0kgy pVZOvviRwFA88SJ94G2EwBt wvdGFibGU+PGRpdiBzdHlsZ G9aDsMb u0fol8ZjRUarF9YlAPXtAXk nFbt2KNGmGNN0jZJ4rR5cVT EbNFzqf2Q0xIX3E3AqpuHiq t1bm3xl YECdLJswI89ciOQwo4P7FBZ agGJ5UMBauRadVtUpbI74Cm c+QOVgiGhyf2BgTfcas0sgw 4kviZr8 NfKuPZBoglKgqGvlDBG0r2R kUn75E20mLUohCDWqEECtPF AnYUNzeDhmxz9mcC1tKp7+P GNvbCB3 iZV3pY1aFBVtMvQ1IJgdD12 0GbGwrUGmKavic3wzn9ufhG e5BhPeZCNbqdEsxOcaCJV0y 5YzVe87 I62nHCgoCHPoYGBdLUJfRZS caLqyjn2ciT1hUz1+PC9jb2 mjae73qU29vMF+KETgICO0e WxlPSdw UPZdkK9tDTmxEtQ1CSKvGaA lcY55pIKqFLbbCl5uxLkpdK atOP4jYNHlhqenr999AaLym 2xkIDEw qUPjOFenALI2U20oj9Y2VZX cOAFvBTR5eUC9tX8pjWtyzt ogbGVmdDsgdmVydGljYWwtY RshC133 IHRvcDsnPlBhdGllbnQgTmF mJIi7B7MbKce9DTYzqZgoPV 3rvMIwCOegDb3dyZqrwLqxX Z2qWSDg vllkx025KfNdh9luIBTeaEK qBHcdGCX5P30js0R0UTGsIW EjTLX1aAG9tE0pxKvdrotsm GVmdDsg hyTjlZdwHYjmICzqL928DIU rxDxqZxPuxmXtSGMxnGU6GT 24UQ74tGYhj5A8kMS0H1IcA GRpbmct qqdwcJC0FGIzGFXlcM84Fx7 qtGurLp2wNMEuPSK9ZLGrrS UmY8MapV6iHhLiAXHoPFFmU 3RleHQt KTnzH064PMqjEhF7QGNzzgJ cJ3QkWSEadQgyVbG6c6R2Tw 6CC7V9UG72VQ57nOBpg1U5w AX0C9Pp DXNuhklkfoabqVC4UJTfREF rqO93On6kgSqjPi8eXNDbTT E3IOGvxAVlZ6PyeX5vFlZoY DAwMDAw M0UggWSmHUzxC461YUbfEyF 6EZJdvnIzK3TnBQWffAvwAq U9p7S8Iy2NKLl2OA64RZ24b HZtw6N1 hLT9T9FmUGShdviyapjubOX 0MMCrAZUcvM53Ou8noQrgNd 4bZIHqGXB3UYIqfTYqU1Mjg Q0sHfEx DTAtYXBsA4VgxOXaIBchS19 2EBfkMnL3FBBcyrJcH6CxIA CjaOdjMyM6y1Z3Vs0NDBNiW F94ELN6 nNJ5SW11AW74O1NiHcvkaGQ ibGU+PHRhYmxlIHdpZHRoPS myUHOgJuLvyHxiKU7xXm0tQ GVyLWNv dLquoHGaHfGxp6vwHGTlYNy tST0ooHooB9CxpEQ3DNWfj7 i1Qo22N84wO6RptAN+PGNvb FX7hRF8 gL8yZwSnNqT7ONgbX518YcV gbSFhRdtht5uoa6tprVp6Hw O6FVHtsxOexPnaMQS6e1JhD u00Q04i IHdpZHRoPSIxNSUiIHZhbGl dbm4teX3wRw4+PBAyzYX7dX C9cR4wGqTjLlL4IUxcS339Y nRvcCIv Catgd1gbu6myiAc9UcSwTIC qkcDmbLmoNWB4p5UeRu45B9 CobTfxo0DmFcc0ld11hQGrf 8Y4uBQ9 M1NoEFPixwrpuTHecSnqXU1 zTKHkumajXZIprI0pAAPrF6 o6ZbFsBsR2EUqaI3NahjV5R DEwcHQg HUrcGTU6R31ln3N8DTBkVVD fJJY2aMF3hL1hzXbngkwhlU VmdDsgdmVydGljYWwtYWxpZ 246IHRv sCpiMITwcI7fRQRmgHCetHn sTA3nZTObdvldFrEKCu9MXz voFjpRRpGWVG66NH51gFVbp 0E5wJZ9 E9GdSSIgjnwfwgipeNA9TTV aKLWagF20bEOvCKuxGx9xp8 K5f174MPQoSAGqgW36Va7mb DogMTBw yBAZgC8napadv8oiahphVnW vSPLnJTy2LCz2YYHlfPccGe QdXLU0YgF4GEY8aRYaqM6xf Glnbjog jD1jNbm+BLXiYYGbPPw9MWc vdGQ+BXPdLXZ7oUbaBEwfSY EmsV5sILKiH2m2MuGbGeP7K GicW4Hv FPZqdgpiQc24sI1gFtRcZhU 1YKauB8OhflQ7KXGywOBoYW wlZCP2S14pf8F4KRDwKQCkN VP7dPW2 pE0osUwomocowGOgzCuwrmU byPbnPUqdEJugY594FIJjrH cwFvVeIPomIFDaBL01IO46g SIof5U6 hMM9U4JpZCXsuemrkgcbeHE 1KWCxIIBnrM66mWZfOFiaQu 4tc4U6e054EPSxORNpoJ91Q q1ccWkv JYRndNQEqH6hecdtv6nxnmt kItBrZMZfZDj4JAh4VXHvhM rlMoBlDZJ0MjU2LYY6mLAxg C4ixWek klxfgV1sXuv+TUFMRTwvdGQ +OQTrJEW9qQgrDVlgWIElrV 8tHXRkH0g3CmIwQxG5CHygQ 3BhZGRp jlilSr57zF4nFqGfMsB8XZj aT1AlmfT1GCPyfJRbZYeoLY P3D04ms2J0UJSaXZIsMBG6g NJ4gR2h bGlnbjogbGVmdDsgdmVydGl vMVsgKBjzE185CEDnxAswOv 8YKR77HY36C9PtTcsfbLMzi +PHRh YmxlIHdpZHRoPScxMDAlJyB pxRguBD3aDz5sRJJzKROxuD vfoLSrEmJik5jcUAWfDAwcL Y5niTfo E9KgbOR8YHOpj5p5Fm66D36 vM0OzvZW+HFAspBO1hZD4eN 7gKlJhIuU2DZghY922UuHtq CIvPjxj k0txo1cegSu8MbWiKKWxbiO wqKgkJCX1l8OhLr62V80dXK dpZHRoPSIyMCUiIHZhbGlnb o5bxN5a Ii8+YJLaoCI2iVG7aL9cDkJ wBqW8INmoR844PyLalCQzZz mwA17jN2WkqAE+KPKsMwk3V CBzdHls WF2mtUAiTVlcGs6tTAL8AnE lLfZrIHamT8DfSNJqdtjnnp fafPE9OONvZPKyjT64Fh5rs WidZj4b XTNcZBC4ZASlqSEaB0EygZ5 rXfAgHELsSXNwU0QmiNCjAD jwE951KYfzCcE7POVwbqUnF 2FsLWFs rNdaSjM7m9O8Vk9WhYdnnDO iZX9zWfRlJDy1R4LmCou0US BjzHxlDW2rnMEiWNwjWd2pn WdodDog ML5qTPNwcqwfy788QzDtq7i wZQFtpUYxFTbhIUG1W12br4 Q9QCPbVNSpTUT7cLM4dK9tz Glnbjog bGVmdDsgdmVydGljYWwtYWx cR238DIDjuSxxQlYCPjp9B8 ZfRtq7QMUmrMzbRH9lxHRwZ DqaMn6n iXahxMftMU3rKYPwvrytx30 5BmCrl1omSXKxlBFiPPlwCO W8N95lo9H7XLMkSCChLHB4a AW5qR8h bGlnbjogbGVmdDsgdmVydGl bCZaxEVttP745GZIrdFyuOq 5DMrw5J8PbNey4BZOujLrpJ V3txILz HKuiDw5gkNxprNbnPK1sJGZ hdbwlf485CwVho2mfGOIurN UnYSafJYJ1G95vm7E0OOGlX DAwMDA7 qFZ3qD2qkSkreoaswCLzxMu xjnJezZbjMJrqOXgwV719QS RvcDsnPlBheWVyOjwvdGQ+P W13ot29 I5UqWjunXoz6OCKcFYX0qTZ 9lX6fLHLzBVkno8Q2zGO3S3 KrcjLidd2me9unLPPlWPufV 29sbGFw c2U (more content not included)... [facility] Consent Formson 06-30-2021 Consent Forms [id number] [id number]#1.00O [facility]GTIFF [facility] Outside Recordson 06-30-2021 Outside Records [id number] [facility] Telemetry Stripson Telemetry Strips [id number] [facility] Anesthesia Noteon 06-29-2021 Anesthesia Note Patient: [...] on: 06/29/2021 15:07 EDT] Durga Reardon MD [facility] Anesthesia Note Patient: AFRICA LANTIGUA Age: 41 years Sex: MALE : 1980 Associated Diagnoses: None Author: Durga eRardon MD Preoperative Information Anesthesia history: Family history. [...] All Problems Asthma, acute / SNOMED CT 502180953 / Confirmed Hypertension / SNOMED CT 6362197475 / Confirmed Current smoker / SNOMED CT 237900107 / Confirmed Histories Family History: No family history items have been selected or recorded. Procedure history: Lumbar spinal fusion ([id number]). Social History Electronic Cigarette/Vaping Assessment Electronic Cigarette [...] Oriented. Review / Management Laboratory Results Plan [employer]#(ASA) physical status classification: Class II. Anesthetic Preoperative Plan Anesthesia: General. . Anesthetic plan, risks, benefits, and alternatives discussed with the patient and/or family. Patient verbalized understanding. Informed consent was given. Anesthetic technique: General anesthesia. [Electronically Signed on: 06/29/2021 13:50 EDT] Durga Reardon MD [Verified on: 06/29/2021 13:50 EDT] Durga Reardon MD [facility] Inpatient Patient Summaryon 06-29-2021 Inpatient [place] [address] Patient Discharge Instructions Name: GRZEGORZDENISE : 1980 Patient Address: [address] [place] [address] Primary Care Provider: Name: KATIE SALGUERO After you are discharged if you find you have any questions, please, call [phone] ext [phone] to speak to a nurse. Discharge Diagnosis: Kidney stone Prescription Information: If you have been given a prescription for narcotics, seek immediate medical attention if you have any difficulty breathing or any sudden status changes such as confusion and sleepiness. If you or anyone you know is experiencing suicidal thoughts, mental health, alcohol and/or drug addiction problems; contact the [facility] 02/05 Crisis Hotline -Text 4HSQW jy 516922. If you received any narcotics, sedation, or [...] business decisions or sign any legal documents [facility] would like to thank you for allowing [...] below: New Medications Printed Prescriptions acetaminophen-hydrocodo ne (Bright[place] 5 mg-325 mg oral tablet) 1 tab(s) [...] you can keep with you. acetaminophen-hydrocodo ne (Brighton 5 mg-325 mg oral tablet) 1 tab(s) [...] to relieve symptoms (more content not included)... [facility] Intraoperative Recordon 06-29-2021 MAGR Intraoperative Record MAGR Intra-Op Record Summary Primary Physician: Jm Brown MD Finalized Date/Time: 06/29/21 15:01:13 Pt. Name: DENISE LANTIGUA Reagan Gage/Sex: 1980 MALE Med Rec #: [id number] Physician: Kevin RODNEY, Jm [place] [employer] #: [id number] Pt. Type: D Room/Bed: / Admit/Disch: 06/29/21 [...] Role Performed Surgeon - Primary Anesthesiologist of Fund Controller Record Time In 06/29/21 13:29:00 06/29/21 13:29:00 [...] Beckwith Role Performed Scrub Personnel Scrub Personnel Sanitation Laborer Time In 06/29/21 13:29:00 06/29/21 13:29:00 06/29/21 [...] Yes Without Pooli (more content not included)... [facility] PACU Recordon MAGR PACU Record MAGR PACU Record Summary Primary Physician: Jm Brown MD Finalized Date/Time: 06/29/21 15:39:52 Pt. Name: DENISE LANTIGUA/Sex: 1980 MALE Med Rec #: [id number] Physician: Jm Brown MD Financial #: [id number] Pt. Type: D Room/Bed: / Admit/Disch: 06/29/21 10:36:00 - Institution: PACU Case Times MAGR Entry 1 In PACU I 06/29/21 14:48:00 Discharge from PACU 06/29/21 15:35:00 I Last Modified By: Sendy Zamorano RN 06/29/21 15:39:50 Finalized By: Sendy Zamorano RN Document Signatures Signed By: Sendy Zamorano RN 06/29/21 15:39 [facility] Postoperative Recordon 06-29-2021 MAGR Postoperative Record MAGR Phase II Record Summary Primary Physician: Jm Brown MD Finalized Date/Time: 06/29/21 17:10:47 Pt. Name: DENISE LANTIGUA/Sex: 1980 MALE Med Rec #: [id number] Physician: Jm Brown MD Financial #: [id number] Pt. Type: D Room/Bed: / Admit/Disch: 06/29/21 [...] Signed By: Beatrice Campbell RN 06/29/21 17:10 [facility] Preoperative Recordon 0 06-29-2021 [facility] Pre[facility] Pre-Op Record Summary Primary Physician: Jm Brown MD Finalized Date/Time: 06/29/21 13:49:25 Pt. Name: DENISE LANTIGUA/Sex: 1980 MALE Med Rec #: [id number] Physician: Jm Brown MD Financial #: [id number] Pt. Type: D Room/Bed: / Admit/Disch: 06/29/21 [...] Signed By: Beatrice Huertas RN 06/29/21 13:49 [facility] Patient Handouton 06-29-2021 Patient Handout [facility] XR Abdomen Single View (KUB) [...] Pryor MD 06/29/21 4:13 pm Technologist: DEMARCUS [facility] XR Fluoroscopy Up to 1 Houro n [...] Pryor MD 06/29/21 4:13 pm Technologist: DEMARCUS [facility] 2018 Novel Coronavirus (CoVI D-19), THERON LCon 06-27-2021 SARS-CoV-2 (COVID-19) RNA THERON+probe Ql (Unsp spec) Not detected Invalid Interpretation Code [facility] Comment on above: Order Comment: [id number] 1 Result Comment: This nucleic acid amplification test was developed and its performance characteristics determined by [employer]. Nucleic acid amplification tests include RT- PCR [...] detected) result in this assay. Performed At: [address] [id number] Floresita Cisneros PhD Ph:[phone] Performed By: #### 6 [id number] #### [facility] (DEFAULT) [address] [place] [address] Progress Note - Nurseon 06-10 Progress Note - Nurse Spoke with pt rega rding arrival time of 1030 and NPO after midnight. Verbalized understanding. [Electronically Signed on: 06/26/2021 10:08 EDT] Norberto DELACRUZ Beatrice Felipe [Verified on: 06/26/2021 10:08 EDT] Norberto DELACRUZ Beatrice Matteo [facility] Coding Summaryon 06-24-2021 Coding Summary [employer]Base 64 YqzpgxkcQMp8aVn+PGhlYWQ +YE1NHTVqL79gzIIxdZ6JP7 vUTS8JXPZOZDFFGQ3UVG3er TP6USqpU6UjpsIv UmzhuYGyWG29JNk4OBR8qOt fLOjlgA3cuUQbW5r7RpPvXD 25hQ18UTitRDLrWnJ0BjSup jsgbWFy A1fgEnJofBVqIxi+PHRhYmx lIHdpZHRoPScxMDAlJyBzdH qyEE6cBn4aFKAzEFRtvHljy HNlOiBj z9cdAUHmVPbhMB2lcFwsC0D jfAO2GSNhg2c8Hc36tTN+PH EuMVJ4bMznYAavv533BvKxt 9deXCK3 lITdRVceYSQ4H36kt8U2PHA yQVNtJBU3kBG0xT1yaBhtcw fhH8CwvYUgQmH3FDW5oXYib Y5fiUnt rkgftJ1xSqq+S17GOE9AUIV BGL8RRcg9S5FqHzyopUV+PC 26WROoBS30kJYazVVgy3fci Vp7BqXz TMKjZUH0qJewOPxhz1XeJEY nI45yaKMhx9C2LIYcySfqfK MyZjUhoLS8wT9hAEgldwkpg 2hvdzsn Epbbp9ncsq29eI45P76jWPy tPNPjEEV8KCBfJUGtrTycjg 9seY3lYb2+EZcei0lgj0ruz Cj0UdTd SNAtkpZziIypKBY9h5SaFs9 1W7LdqYbar9MyXwm3aw39fI Dfd2Q2fKK9YMteOXRpbI3iF WxlZnQ6 XGGkNdOlmU15yHVlBKwsEx1 wcAlxyUxdTA4fOCCxvdtsNR GonA0lOOBsxIBepKfkRL1yT TBpbjtm h347NmPeGIB3WMIhgZSkU3G yqK8cKqZdQXRkMYBcJ0FssL IuELiuV716PBsmMpS0BIAac yYvN1Jf IAQbgRlfHnL1l0E4Ka0Ok0Z xkiehWPQ3FXonIKI4VbA8Go JvHiR3N5CtLya3CYWmfSqlH H0yX5Ci UXSaimfrwwcvuJL1JSTbYSX jyY33nEYiWJczKv2iu3K7g5 44HVQfEYAsjH71Uf8dbDlaO TBwdCBU nG4kcxbha3xnwvdxIbXaFCC oFCv5QYy2VYGmfAkvVoHvGR X6EvB0IRD6tLVhzP8ofBbcd xrgaR4l Oyc+Q98jwW7hNKM4UAP1oxr sXKOhdxEvLD35EF31Q0PoKy wvdGFibGU+PGRpdiBzdHlsZ S3iJgNb u7ygg5SpKAsnE2GiUQGkKSu mEkw5NWOeUCQ2pLK2qO1fNK RjBHxzx8J7dUT5N3YqwiTle m2dz4dy FRRbSYneM38xeFXij1E4KXU eiXP7WAFzdRjiIgNgpF81No c+UUYxuWwul7YdSadob9ggw 9egaKq8 VkGvJDHoeySheFluWTP9b2C jWv48U97uQQgdKJMkNXDxCO KrVERygZabtq5lfJ2fAm7+P GNvbCB3 rUB5hJ0wVHWgRzZ1FHxmT07 0EwQziQLiHnsdw5otf2jztG i2HiTiCYBbrpXziLgqIKL0e 1NyRn14 C45qDVvkQREbZNXqLKQmVLB ynZzjom8vmW0lGk1+PC9jb2 pfmq25bP13rHO+EXRfAOS2a WxlPSdw ARQloW1mVUgqDtA4UFMgPoU hwE75uMPqLBlrJr9qaDnckL zrBT1mTBXzmbini473HdUbl 2xkIDEw uTTbFTdeFOO7L43gc9T1AED lVQQeUPV8mLX4rI1inQanqp ogbGVmdDsgdmVydGljYWwtY RniY716 IHRvcDsnPlBhdGllbnQgTmF oSHe5H3BoZfp4MKBmkMtuPG 6usTNaWEgiHr5heVsonYagZ U2qFWBy fovyp806IvKpy3ibSQAfjYL aFDxmPAP8J80tt7Q7NBWtGD XuEYC1hMI2vA6spXtvyutge GVmdDsg zmFxlMhxBOxdILyhI834AJT mmIirGvKkcyNpPXSkmBG6TT 66ZG03jYYtj5K3aBD6C7KbY GRpbmct xrvldFO5ZTCmKOAmfK17Ik0 gyKdkSf4hJXYzGLN6OPQjzA LaY6VbwE6tRtGdETBaMMUwG 3RleHQt TGmdQ878ORqlLiJ1YOUbeiK uZ3OyZRSpiXefKdG0m5P5Jb 6DR0V1WO29KG16mSLal1E4p RX7I0Qf XFXxejydinnpiXH0VMYnSLF ayA26Jx9vdTiuCh3wTXYtZI X8MKZfzEMsF7OxqE9vAwBlP DAwMDAw M6TdtXOqVKbnJ905GWusIdS 8JPHulkGzZ9RpLPWsdCdtSi W9h9C4Kp5EAAy7EJ18PD76x JCwf1G4 sYG1X7PePMXbdkhwebxqlRZ 8DHRjRIQsoD60Ui4ryMqqWz 6hXTUuDXO2XPKwgXMyE4Jzs G0sUyMl ZSGgMEJjI8HvuCMdTWlwD85 4RSzxFoK3UDHligAcY5DuAI OmrGfsKcN4q5X8Nm9CTQHfG K54HBT9 cVN0LW41OS48V9NmYiqhuJG ibGU+PHRhYmxlIHdpZHRoPS huCUIaPaEhaYwgGN0cNm1aO GVyLWNv yKfzaTJoNzZfy1uzSLPiXDa tQG6uhOshX5RntYW8GORct6 k0Xf53P98bM0WzgKM+PGNvb XE6wNH1 wH8sXzQiHlZ2HGwtY731MjS jeJFdZontu3xsh3cbhHl3Jy E1FCMutrQhyFhaKBX0c6KxX d66V11i IHdpZHRoPSIxNSUiIHZhbGl msq7ysJ6aOc8+LHUzgVX0jF V7vC3xMcRiPxG3OPvuN399D nRvcCIv Omupz1wai8fmaYa8RtCwJBM eenBpwMwvAOD8t4IvVm28O5 ZzkTrcy0KhLgq0cb73mXKsv 8O6qXD4 I7YfLQFjivdggJGolMkvKU7 kKHCiixmaQKBjuN5gBQDmO7 e7TcQnZjR0TZjjF1YfioW2M DEwcHQg OOmvPEM9H23ky7K9XSMyQOH tQZD1aVQ6zY3pfKwppwqetR VmdDsgdmVydGljYWwtYWxpZ 246IHRv kUrvBTZshB8hHDDebFNutSr zXO6jALTfmfplVtCYUw1CNf atZegDBuNPLL26ZV20vZXvr 0E6wBI6 P4IbFGNjtbbvuwgtlYQ6SCP xTWBjzS63jMXvGVhqVn7it1 J8g294CMAmMAZhkE87Gc3ge DogMTBw mIBImP9rmlfsb3qmsklvAjD vCPMqCWe9FGr8LWIjfHfzSt GcEPQ2LbE0VVS7gEZbjR6eq Glnbjog lJ5zLjt+YKDvAPGvQDz0URu vdGQ+PEXdZRH4uQvxRKdzPD RewC2uLKEwT8d2RhPvYtS2H RfdT7Bf UFMoulmtLe08dX8rXcRwFqY 2XMmwL9MqczV4HTNxaZFgCD ieRKT6L02zn7S2GPTnWHZzZ AK9zQM2 sE0qgQwuhidqdSKjqVogmjB uaItuYMtyWWbeR824BKTiwQ tgQcFoOJtoVXQcMN53IX08n AGkl8Y6 nES6Z6JuSEWpbrijmffcrDF 3MTPcWWWwlC11lMNrBNjjVn 8jj2K0e947WFCzVHJepP97X s1hnSgz UKUlvNOGyD2ycintv5afnan bRbVzWTHyHFt5NFk6SNFwsD fkEwFaWNM2CeD7BGR6qKTcf L1dhQqy bqdreE3sZsz+TUFMRTwvdGQ +RVLsVPQ6dSycUHdqYLNeoH 4tELXuW5l2MfUqGtW4YFkgK 3BhZGRp kffdKj76lK3iCiUmQpC1SGl fY2KobuK0LBKcfFEbQVxzQK G5F88gl6K3XEGaRKHlGPJ7w EL6aZ8f bGlnbjogbGVmdDsgdmVydGl uEGijPDoaF386SKJvnXibAi 4CHY76WR93E8QmGflntQVxr +PHRh YmxlIHdpZHRoPScxMDAlJyB ilEmuDC3nPj9sVKRlXQSxyR tbhWBeTwXoj5scOWOoXNtmG D5lkLsk R5NzsIC8LKVhh2c1Zc10I28 jP0QndMX+HCAyxTU3uRO6sB 5mUbEtNpA0ENkcV792ZtCrs CIvPjxj e4vzq4adgUk1JjAoRZOkcuZ dyMasXMV4o8VyDb15P02qWK dpZHRoPSIyMCUiIHZhbGlnb w6akK2u Ii8+PRIagEJ1gVT5cL7oQcO eRqL4NRrsF114RiRjsKJbIk cwP26oR2CogNM+NQHtEip0R CBzdHls MY9jyDNgFLrtRr1tWBX6UrG sFsFnHXmwC6YsWHHbrimckm pitOI2NCBeFNQfuH20Qs4nq RhxBz4w PTElYQQ7GVNklXOoS6QdiW5 zDbNaECLiXNEbW1EyaKFuKY dbX790CYrrAoT8PALuwtAoX 2FsLWFs kWbsQiM8x4C0Gx5AxOhabKN mFJ7rAcEsJNq3U3WuCpb5RB RcfFwhLQ5wkOYgXRufNb7zx WdodDog XV6iMXXslbssi162HmHgl6i cXHEszHTmEJfkXVJ1M00gi9 I6JQTxZDBkDHH5zXJ7bC9vo Glnbjog bGVmdDsgdmVydGljYWwtYWx sE505ABEqhHfhIlAYCik4N1 LqTpq4EKJeaMukTV8qoMEvA PliGw6m aYueuMdcFB7vCUUrucwsf67 1GvEbo9bjNNCxmUGrLRdjEX N6H86mi5E9WQOxNWCmELN8a TB9tE5s bGlnbjogbGVmdDsgdmVydGl cJNuaEIruY653VPJgzIbtBj 0SCng6J8AhTwy4JJKxfLfqL E7lzNNv UZeoJd4orMcfxEssRV9fJJX jgrghc123UcUyk0txUFNzmK LwPUanTDK8Q44hg0V1GCNzU DAwMDA7 qZS5uZ3hfTyrvewgxIMthSg yumLitMxfVAopUKptY932WI RvcDsnPlBheWVyOjwvdGQ+P S57ld22 W7PdJuevVal7ELHxPGV1iEC 0fZ9fFOLvFBdsr0B5dSQ3Y4 CljcElxu2fo9ufZIMcSOeaD 29sbGFw c2U (more content not included)... [facility] Consent Formson 06-22-2021 Consent Forms [id number]#[id number] TGTIFF [facility] C Urineon 06-20-2021 C Urine No growth at 2 days. Normal [facility] Comment on above: Performed By: #### 6 [id number] ####[facility] (DEFAULT)[address] [place] [address] Provider Orderson 06-19-2021 Provider Orders [id number]#1.00O TGTIFF [facility] .Auto Diff 1on 06-18-2021 Auto [place] % 6 % Normal 12 [facility] Comment on above: Performed By: #### [id number] ####[facility] (DEFAULT)[address] [place] [address] Baso Abs# 0.1 x10 Normal 0.0-0.2 [facility] Comment on above: Performed By: #### 7 190478, [id number], [id number] ####[facility] (DEFAULT)[address] [place] [address] 97280 Basophils/100 WBC (Bld) 1.2 % Normal 0.2-2.0 [facility] Comment on above: Performed By: #### 7 227214, [id number], [id number] ####[facility] (DEFAULT)[address] [place] [address] 22803 Eos Abs# 0.2 x10 Normal 0.0-0.4 [facility] Comment on above: Performed By: #### 7 026253, [id number], [id number] ####[facility] (DEFAULT)[address] [place] [address] 75209 Eosinophils/100 WBC (Bld) 1.8 % Normal 0.9-4.0 [facility] Comment on above: Performed By: #### 7 540101, [id number], [id number] ####[facility] (DEFAULT)[address] [place] [address] 57009 Lymph Abs# 2.7 x10 Normal 1.3-2.9 [facility] Comment on above: Performed By: #### 7 771927, 62775945, [id number] ####[facility] (DEFAULT)[address] [place] [address] 87264 Lymphocytes/100 WBC (Bld) 25 % Normal 14-48 [facility] Comment on above: Performed By: #### 7 031727, [id number], [id number] ####[facility] (DEFAULT)[address] [place] [address] 12077 [place]uy Abs# 0.6 x10 Normal 0.0-0.8 [facility] Comment on above: Performed By: #### 7 289651, 45593901, [id number] ####[facility] (DEFAULT)[address] [place] [address] 65400 Neut Abs# 7.2 x10 Normal 1.5-9.2 [facility] Comment on above: Performed By: #### 7 513175, 09873915, [id number] ####[facility] (DEFAULT)[address] [place] [address] 32184 Neutrophils/100 WBC (Bld) 66 % Normal 44-88 [facility] Comment on above: Performed By: #### 7 701996, 28891906, [id number] ####[facility] (DEFAULT)[address] [place] [address] 69465 [facility] Standardon 06-18-2021 eGFR Non AA >60 Invalid Interpretation Code [facility] Comment on above: Performed By: #### 7 605320, [id number], [id number] ####[facility] (DEFAULT)[address] [place] [address] 53021 eGFR AA >60 Invalid Interpretation Code [facility] Comment on above: Result Comment: Outbound Supervisor yury Kidney disease could be indicated at eGFRs of less than 60 ml/min/1.73m2. Kidney Failure is indicated at less than 15 ml/min/1.73m2 Performed By: #### 7 348510, 51790000, [id number] ####[facility] (DEFAULT)[address] [place] [address] 27804 Anion gap [Moles/Vol] 14.0 mmol/L Normal 5.0-19.0 [facility] Comment on above: Performed By: #### 7 184018, 17885918, [id number] ####[facility] (DEFAULT)[address] [place] [address] 35781 Calcium [Mass/Vol] 9.5 mg/dL Normal 8.9-10.3 [facility] Comment on above: Performed By: #### 7 733038, 23803989, [id number] ####[facility] (DEFAULT)[address] [place] [address] 97639 Chloride [Moles/Vol] 101 mmol/L Normal 101-111 [facility] Comment on above: Performed By: #### 7 870947, 83169026, [id number] ####[facility] (DEFAULT)[address] [place] [address] 88180 CO2 [Moles/Vol] 28 mmol/L Normal 21-32 [facility] Comment on above: Performed By: #### 7 430983, 70167216, [id number] ####[facility] (DEFAULT)[address] [place] [address] 02633 Creatinine [Mass/Vol] 0.99 mg/dL Normal 0.90-1.30 [facility] Comment on above: Performed By: #### 7 997950, 67201249, [id number] ####[facility] (DEFAULT)[address] [place] [address] 79466 Glucose [Mass/Vol] 89.0 mg/dL Normal 74.0-118.0 [facility] Comment on above: Performed By: #### 7 290108, 25376553, [id number] ####[facility] (DEFAULT)[address] [place] [address] 65782 Osmolality 276 mOsm/L Invalid Interpretation Code [facility] Comment on above: Performed By: #### 7 352531, 51051370, [id number] ####[facility] (DEFAULT)[address] [place] [address] 38803 Potassium [Moles/Vol] 3.8 mmol/L Normal 3.6-5.1 [facility] Comment on above: Performed By: #### 7 125603, 73212722, [id number] ####[facility] (DEFAULT)[address] [place] [address] 32828 Sodium [Moles/Vol] 139.0 mmol/L Normal 136.0-144.0 [facility] Comment on above: Performed By: #### 7 811722, 63290556, [id number] ####[facility] (DEFAULT)[address] [place] [address] 56466 Urea nitrogen [Mass/Vol] 9 mg/dL Normal 8-26 [facility] Comment on above: Performed By: #### 7 298102, 54378286, [id number] ####[facility] (DEFAULT)[address] [place] [address] 69378 Urea nitrogen/Creatinine [Mass ratio] 9.0 mg/mg Normal 4.6-16.2 [facility] Comment on above: Performed By: #### 7 016166, 58440603, [id number] ####[facility] (DEFAULT)[address] [place] [address] 09858 CBC w/ Auto Diffon 1 Erythrocyte distribution width (RBC) [Ratio] 14.8 % Normal 11.5-15.0 [facility] Comment on above: Performed By: #### 7 749211, 18520403, [id number] ####[facility] (DEFAULT)[address] [place] [address] 27152 Hematocrit (Bld) [Volume fraction] 47.5 % Normal 34.8-51.9 [facility] Comment on above: Performed By: #### 7 629564, 45079980, [id number] ####[facility] (DEFAULT)[address] [place] [address] 09799 Hemoglobin (Bld) [Mass/Vol] 16.0 g/dL Normal 11.8-17.7 [facility] Comment on above: Performed By: #### 7 388948, 20627932, [id number] ####[facility] (DEFAULT)[address] [place] [address] 65617 Instr WBC 10.8 x10 Invalid Interpretation Code [facility] Comment on above: Performed By: #### 7 978177, 60294765, [id number] ####[facility] (DEFAULT)[address] [place] [address] 65652 Man Diff? Auto Normal [facility] Comment on above: Performed By: #### 7 965624, 44832110, [id number] ####[facility] (DEFAULT)[address] [place] [address] 40946 MCH (RBC) [Entitic mass] 29 pg Normal 24-34 [facility] Comment on above: Performed By: #### 7 707550, 97874828, [id number] ####[facility] (DEFAULT)[address] [place] [address] 47813 MCHC (RBC) [Mass/Vol] 34 g/dL Normal 26-37 [facility] Comment on above: Performed By: #### 7 199862, 39649526, [id number] ####[facility] (DEFAULT)[address] [place] [address] 40638 MCV (RBC) [Entitic vol] 87 fL Normal 81-100 [facility] Comment on above: Performed By: #### 7 009717, 27840552, [id number] ####[facility] (DEFAULT)[address] [place] [address] Platelet 372 x10 Normal 138-427 [facility] Comment on above: Performed By: #### 7 679403, 20778910, [id number] ####[facility] (DEFAULT)[address] [place] [address] Platelet mean volume (Bld) [Entitic vol] 9.5 fL Normal 6.3-10.2 [facility] Comment on above: Performed By: #### 7 984236, 32765093, [id number] ####[facility] (DEFAULT)[address] [place] [address] RBC 5.48 x10 High 3.70-5.30 [facility] Comment on above: Performed By: #### 7 258518, 19851578, [id number] ####[facility] (DEFAULT)[address] [place] [address] WBC 10.8 x10 High 3.5-10.5 [facility] Comment on above: Performed By: #### 7 916325, 60249664, [id number] ####[facility] (DEFAULT)[address] [place] [address] ALLIED HEALTHon 11-07-2018 ALLIED HEALTH HNO ID: [id number] Author: Shruti Hicks (Rt) Service: Radiology Author Type: Sustainability Coach Type: Allied Health Filed: 11/07/2018 11:36 AM [...] RT Fabiola November 07, 2018 11:34 AM [facility] ) DENISE LANTIGUA ([id number]) 1980 M Date Time Provider Department 11/07/18 [...] is currently following with pain management in [place]. X-ray lumbar spine flexion and extension ordered. [...] is currently following with pain management in [place]. X-ray lumbar spine flexion and extension ordered. He may benefit from chronic pain rehabilitation program. ? Follow up in spine surgery clinic at 4 months for reassessment Referring Provider: LAUREL LOERA) [[id number]] Allergies As of Date: 11/07/2018 (No Known Allergies) Date Reviewed: 11/07/2018 Reviewed by: Ana Ellis Ma - Fully Assessed Reason for Visit: Established Patient [175] Primary Visit Diagnosis:Lumbar disc herniation [M51.26] Order(s):XR LUMBAR MOTION 4V AP/LAT/ FLEX/EXT [7159835] Order #: [id number] FUTURE Prescriptions as of 11/07/2018 Sig: OXYCODONE-ACETAMINOPHEN [...] is currently following with pain management in [place]. X-ray lumbar spine flexion and extension ordered. He may benefit from chronic pain rehabilitation program. ? Follow up in spine surgery clinic at 4 months for reassessment Encounter Status:Closed by LAUREL LOERA MD on 11/07/18 Normal [facility] PROGRESSon 11-07-2018 Protein mass conc HNO ID: [id number] Author: Laurel Littlejohn) Luz Maria Service: (none) [...] is currently following with pain management in [place]. X-ray lumbar spine flexion and extension ordered. [...] 07, 2018 TIME: 10:30 AM PAGER: Normal [facility] XR LUMBAR 4V AP/LAT/ FLEX/EX Ton 11-07-2018 [...] at L5-S1 with no acute fractures seen Planisher: CHAKA Transcribe Date/Time: Nov 07 2018 2:02P Dictated by : RAFIQ CANO MD This examination was interpreted and the report reviewed and electronically signed by: RAFIQ CANO MD on Nov 07 2018 2:03PM EST [id number] [facility] 07-18-2018 CNPN Telephone (NIQ) DENISE LANTIGUA ([id number]) 1980 M Date Time Provider Department 07/18/18 [...] 12 weeks off initially Maria Luisa Sher [facility] 07/18/2018 4:17 PM Signed Patient calling back with [facility] for [facility] Patient wants to know how many more weeks are being approved. [phone] ALBERTO Moreira- 07/20/2018 11:20 AM Signed New letter written ALBERTO Moreira- Sarah Mueller RN 07/20/2018 11:48 AM Signed Letter faxed as requested [facility] notifying pt Allergies As of Date: 07/18/2018 (No Known Allergies) Date Reviewed: 07/07/2018 Reviewed by: Rhona Coyne Ma - Fully Assessed Reason for Visit: [place] Paperwork [2166] Prescriptions as of 07/18/2018 Sig: OXYCODONE-ACETAMINOPHEN 5-325* [...] FOR* More... Letter Text Laurel Loera M.D. [facility] / [address] [place] [address] Office: Appt: Letter Text Srinivas Franks PA-C [facility] Neurosurgery 07/20/2018 To Whom it May Concern: This is to certify that Denise Lantigua was seen at our office for medical care. Mr Lantigua may return to work on 08/09/18. If you have any questions please feel free to call. Thank you, PRASHANTH Moreira Encounter Status:Closed by SRINIVAS FRANKS PA-C on 07/20/18 [facility] CNOVon 07-07-2018 CNOV Office Visit (NSFRVW ) GRZEGORZDENISE THOMPSON ([id number]) 1980 M Date Time Provider Department 07/07/18 [...] months for reassessment. Referring Provider: LAUREL LOERA) [[id number]] Allergies As of Date: 07/07/2018 (No Known Allergies) Date Reviewed: 07/07/2018 Reviewed by: Rhona Coyne Ma - Fully Assessed Reason for Visit: Follow Up [171] Cmt: Post Op Primary Visit Diagnosis:Radiculopathy , lumbar region [M54.16] Order(s):CONSULT TO PHYSICAL THERAPY [9032] Order #: [id number]: 1 Prescriptions as of 07/07/2018 Sig: OXYCODONE-ACETAMINOPHEN [...] by LAUREL LOERA MD on 07/07/18 Normal [facility] PROGRESSon 07-07-2018 Protein mass conc HNO ID: [id number] Author: Laurel Littlejohn) Luz Maria Service: (none) [...] 07, 2018 TIME: 9:32 AM PAGER: Normal [facility] ANES Melvi 06-14-2018 ANES POST HNO ID: [id number] Author: Moise Nj Service: Anesthesiology Author Type: [...] 14, 2018 TIME: 3:19 PM PAGER/CONTACT #: [phone] [facility] ANES PREOPon 06-14-2018 ANES PREOP HNO ID: [id number] Author: Moise Nj Service: Anesthesiology Author Type: [...] Management Plan: ROOT Protocol Parenteral or Oral [facility] Chart Review ACTIVE PROBLEM LIST Radiculopathy, [...] daily. WITH FOOD Inpatient medications reviewed in [facility]. I have interviewed and examined the [...] 14, 2018 TIME: 12:12 PM PAGER/CONTACT #: [phone] [facility] Confirm Blood Typeon 018 ABO/RH(D) Positive [facility] Comment on above: Performed By: #### C ONABO #### [facility] [address] [place] [address] HISTORY PHYSICALon HISTORY PHYSICAL HNO ID: [id number] Author: Laurel Littlejohn) Luz Maria Service: Neurosurgery [...] DATE: June 14, 2018 TIME: 12:35 PM PAGER:[phone] [facility] NURSING PROGon 06-14-2018 Protein mass conc HNO ID: [id number] Author: Andrew ZapienRn) NUBIA Hernandez Service: (none) Author Type: Registered Nurse Type: Nursing Progress Note Filed: 06/14/2018 7:08 PM Note Text: Nursing Progress Note Patient Name: Denise Lantigua Patient Location: [place] [address] [address] Transfer Note: Late entry from 1700 Patient transferred into room/unit PK335 in stable condition. Actions taken: Patient oriented to room and unit routines. Call light placed within reach and patient instructed on use. This note was completed by: Andrew Hernandez RN [facility] Protein mass conc HNO ID: [id number] Author: Beatrice ZapienRn) NUBIA Valle Service: Nursing Author Type: Registered Nurse Type: Nursing Progress Note Filed: 06/14/2018 1:57 PM Note Text: Patient family updated on status of procedure per NUBIA Yeung at 1324. [facility] OPERATIVE NOon 06-14-2018 OPERATIVE NO HNO ID: [id number] Author: Laurel Littlejohn) Luz Maria Service: Neurosurgery Author Type: Physician Type: Operative Report Filed: 06/14/2018 3:07 PM Note Text: OPERATIVE/PROCEDURE REPORT LOG ID: [id number] SURGERY/PROCEDURE DATE: 06/14/2018 INCISION/PROCEDURE START TIME: 1:16 PM INCISION CLOSE/PROCEDURE END TIME: 02.40 PM SURGEON(S)/PROCEDURALIS T(S) AND SYSTEM DISPATCHER(S): Surgeon(s) and Role: * Laurel Littlejohn) Luz Maria - Primary Physician Blackjack Dealer: Srinivas Franks ANESTHESIA: General PRE-OP/PRE-PROCEDURE DIAGNOSIS: Left [...] 14, 2018 TIME: 2:58 PM PAGER/CONTACT #: [phone] [facility] PROGRESSon 06-14-2018 Protein mass conc HNO ID: [id number] Author: Laurel Loera Service: Neurosurgery Author Type: Physician Type: Progress Notes Filed: 06/14/2018 7:24 PM Note Text: Post op note ? Post op left L5-S1 revision diskectomy with foraminotomy Operative pain is better with medications ? Moving limbs Dressing clean and dry ? Plan: Continue pain medications Regular diet PT /OT SCD Incentive spirometry ? Laurel Loera MD Staff, neurosurgery [facility] PT EDon 06-14-2018 PT ED HNO ID: [id number] Author: Olive Enamorado) NUBIA Stoner Service: Nursing [...] None Electronically Signed By: Olive Stoner RN [facility] XR LUMBAR 1Von 06-14-2018 XR LUMBAR 1V [...] Localization to L5-S1 of the lumbar spine. Planisher: PSCB Transcribe Date/Time: Jun 14 2018 1:44P Dictated by : RAFIQ CANO MD This examination was interpreted and the report reviewed and electronically signed by: RAFIQ CANO MD on Jun 14 2018 1:44PM EST [id number] [facility] NURSING PROGon 06-09-2018 Protein mass conc HNO ID: [id number] Author: Odilia Enamorado) NUBIA Zelaya Service: General [...] SCREEN: 06-08-18 Within acceptable limits, results in [facility]. Imaging Within Last 12 Months: MRI 02-12-18 X-ray Lumbar 02-12-18 Results in [facility]. Cardiac Testing: EKG in last 12 Months: Yes: Date: 06-08-18, Comment: Confirmed in [facility]. Last Menstrual Period: LMP Date: N/A Postmenopausal >1yr: N/A, S/P Hysterectomy: N/A BMI Percentile (PEDS): N/A Risk Assessment: N/A Anesthesia Review: N/A Narrative: N/A Pre-op Considerations: Asthma: Rare inhaler use Chart Check: COMPLETED Odilia Zelaya RN June 09, 2018 11:13 AM Normal [facility] APTTon 06-08-2018 aPTT Coag time (Bld) 26.8 s Normal 23.0-32.4 [facility] Comment on above: Result Comment: Unfr actionated [...] laboratory APTT reagent in use throughout the [facility]. Performed By: #### C BC, PT, PTT, BMP ####[address] [phone] Basic Metabolic Panlon 06-08 Anion gap molar conc 14 mmol/L Normal 9-18 [facility] Comment on above: Performed By: #### C BC, PT, PTT, BMP ####[address] [phone] Calcium mass conc 9.7 mg/dL Normal 8.5-10.2 [facility] Comment on above: Performed By: #### C BC, PT, PTT, BMP ####[address] [phone] Chloride molar conc 101 mmol/L Normal 97-105 [facility] Comment on above: Performed By: #### C BC, PT, PTT, BMP ####[place] [address] [place], [place] [phone] CO2 molar conc 27 mmol/L Normal 22-30 [facility] Comment on above: Performed By: #### C BC, PT, PTT, BMP ####[place] [address] [place], [place] [phone] Creatinine mass conc 1.07 mg/dL Normal 0.73-1.22 [facility] Comment on above: Performed By: #### C BC, PT, PTT, BMP ####[facility] [place], [place] [phone] eGFR- Amer. >60 Normal [facility] Comment on above: Performed By: #### C BC, PT, PTT, BMP ####[facility] [place], [place] [phone] GFR/1.73 sq M predicted among non-blacks MDRD vol rate/area (S/P/Bld) mL/min/{1.73_m2} Normal [facility] Comment on above: Result Comment: eGFR (Estimated [...] By: #### C BC, PT, PTT, BMP ####[place] [address] [place], [place] [phone] Glucose mass conc 86 mg/dL Normal 74-99 [facility] Comment on above: Result Comment: The [place] [employer] (ADA) provides guidance for cutoff [...] Standards of Medical Care in Diabetes 2016, [place] [employer]. Diabetes Care. 2016.39(Suppl 1). Performed By: #### C BC, PT, PTT, BMP ####[place] [address] [place], [place] [phone] Potassium molar conc 4.7 mmol/L Normal 3.7-5.1 [facility] Comment on above: Performed By: #### C BC, PT, PTT, BMP ####[place] [address] [address] [place], [place] [phone] Sodium molar conc 142 mmol/L Normal 136-144 [facility] Comment on above: Performed By: #### C BC, PT, PTT, BMP ####[place] [address] [address] [place], [place] [phone] Urea nitrogen mass conc 8 mg/dL Low 9-24 [facility] Comment on above: Performed By: #### C BC, PT, PTT, BMP ####[place] [address] [place], [place] [phone] CBCon 06-08-2018 Absolute nRBC <0.01 Normal <0.01 [facility] Comment on above: Performed By: #### C BC, PT, PTT, BMP ####[place] [address] [place] [phone] Erythrocyte distribution width Ratio (RBC) 14.8 % Normal 11.5-15.0 [facility] Comment on above: Performed By: #### C BC, PT, PTT, BMP ####[place] [address] [address] [place], [place] [phone] Hematocrit Volume Fraction (Bld) 47.5 % Normal 39.0-51.0 [facility] Comment on above: Performed By: #### C BC, PT, PTT, BMP ####[place] [address] [address] [place], [place] [phone] Hemoglobin mass conc (Bld) 15.6 g/dL Normal 13.0-17.0 [facility] Comment on above: Performed By: #### C BC, PT, PTT, BMP ####[place] [address] [address] [place], [place] [phone] MCH Entitic mass (RBC) 27.6 pG Normal 26.0-34.0 [facility] Comment on above: Performed By: #### C BC, PT, PTT, BMP ####[place] [address] [address] [place], [place] [phone] MCHC mass conc (RBC) 32.8 g/dL Normal 30.5-36.0 [facility] Comment on above: Performed By: #### C BC, PT, PTT, BMP ####[place] [address] [place], [place] [phone] MCV Entitic volume (RBC) 83.9 fL Normal 80.0-100.0 [facility] Comment on above: Performed By: #### C BC, PT, PTT, BMP ####[place] [address] [place], [place] [phone] Platelet mean volume Entitic volume (Bld) 10.2 fL Normal 9.0-12.7 [facility] Comment on above: Performed By: #### C BC, PT, PTT, BMP ####[place] [address] [address] [place], [place] [phone] Platelets #/vol (Bld) 320 10*3/uL Normal 150-400 [facility] Comment on above: Performed By: #### C BC, PT, PTT, BMP ####[place] [address] [address] [place], [place] [phone] RBC #/vol (Bld) 5.66 10*6/uL Normal 4.20-6.00 [facility] Comment on above: Performed By: #### C BC, PT, PTT, BMP ####[place] [address] [address] [place], [place] [phone] WBC #/vol (Bld) 10.64 10*3/uL Normal 3.70-11.00 [facility] Comment on above: Performed By: #### C BC, PT, PTT, BMP ####[facility] [address] [place], [place] [phone] EKG1on 06-08-2018 EKG1 NAME : DENISE LANTIGUA PID : [id number] : 1980 Gender : Male Race : [...] ms QTC Calculation(Bezet) : 422 ms P Peerless : 20 degrees R Peerless : 21 degrees T Peerless : 35 degrees Test Reason : HTN PRE OP Location : 168 : [facility] Overread By : SHAUN VALDERRAMA M.D. Edited By : SHAUN VALDERRAMA M.D. Referred By : LUZ MARIA, Acquired by : Hernandez GOODMAN [facility] HISTORY PHYSICALon 8 HISTORY PHYSICAL HNO ID: [id number] Author: So Juan (Pa) Service: (none) Author Type: Physician Blackjack Dealer Type: HANDP Filed: 06/09/2018 7:05 AM Note [...] Cardiovascular: Positive for: Hypertension, Negative for Recent SD, Angina, Arrhythmia, CAD, Chest Pain, CHF, PVD, [...] 2018 TIME: 1:47 PM PAGER/CONTACT #: Hernandez [facility] PROGRESSon 06-08-2018 Protein mass conc HNO ID: [id number] Author: Ericka (Rt) Shruti Leblanc Service: (none) Author Type: Sustainability Coach Type: Progress Notes Filed: 06/08/2018 2:39 PM [...] Yordan June 08, 2018 2:38 PM Normal [facility] Protimeon 06-08-2018 Prothrombin time (PT) Coag time (PPP) 1.1 s Normal 0.9-1.3 [facility] Comment on above: Result Comment: Kierra min K Antagonist (VKA) Therapeutic Range: INR 2 to 3 (Target INR of 2.5) Note: For patients treated with VKA drugs, such as warfarin, the [place] [employer] 2012 Guideline recommends [...] Chest 2012, 141:7S-47S Ravi PHELPS et al. [facility] 2017, 70: 252-289 Performed By: #### C BC, PT, PTT, BMP ####[facility] [place], [place] [phone] Prothrombin time (PT) Coag time (PPP) 11.1 s Normal 9.7-13.0 [facility] Comment on above: Performed By: #### C BC, PT, PTT, BMP ####[facility] [place], [place] [phone] Staph aureus PCRon 8 MRSA PCR Negative Normal [facility] Comment on above: Performed By: #### S APCR ####[place] [address] [place], [place] [phone] S aureus Spec Source Nasal Normal [facility] Comment on above: Performed By: #### S APCR ####[place] [address], [place] [phone] Staph aureus PCR Negative Normal [facility] [place] Comment on above: Performed By: #### S APCR ####[place] [address], [place] [phone] Type and SCR (30D)on 018 ABO/RH(D) Positive Normal [facility] Comment on above: Performed By: #### T SCR30 #### [facility] [address] [place] [address] Urinalysison 06-08-2018 Bilirubin, Urine Negative Normal Negative [facility] [place] Comment on above: Performed By: #### U A ####[place] [address], [place] [phone] Clarity Nom (U) Clear Normal Clear [facility] Comment on above: Performed By: #### U A ####[facility] [place], [place] [phone] Color Nom (U) Yellow Normal Yellow [facility] Comment on above: Performed By: #### U A ####[place] [address] [place] [phone] Comments SEE COMMENT Normal [facility] Comment on above: Result Comment: Micr oscopic not warranted Performed By: #### U A ####[place] [address] [place] [phone] Glucose Ql (U) Negative Normal Negative [facility] Comment on above: Performed By: #### U A ####[place] [address] [phone] Hemoglobin/Blood,Ur Negative Normal Negative [facility] Comment on above: Performed By: #### U A ####[place] [phone] Ketones Ql (U) Negative Normal Negative [facility] Comment on above: Performed By: #### U A ####[place] [phone] Leukest Negative Normal Negative [facility] Comment on above: Performed By: #### U A ####[place] [address] [phone] Nitrite Ql (U) Negative Normal Negative [facility] Comment on above: Performed By: #### U A ####[place] [phone] pH (Bld) 7.0 Normal 4.5-8.0 [facility] Comment on above: Performed By: #### U A ####[place] [phone] Protein mass conc (U) Negative Normal Negative [facility] Comment on above: Performed By: #### U A ####[place] [phone] Specific [place], Ur 1.011 Normal 1.005-1.030 [facility] Comment on above: Performed By: #### U A ####[facility] [address] [place], [place] [phone] Urine Gerard Comment SEE COMMENT Normal [facility] Comment on above: Result Comment: N/A Performed By: #### U A ####[facility] [address], [place] [phone] Urobilinogen Qn (U) Normal Normal Normal [facility] Comment on above: Performed By: #### U A ####[facility] [address], [place] [phone] XR CHEST 2V FRONTAL/LATon XR CHEST 2V [...] silhouette. Other: IMPRESSION: No acute radiographic abnormality. Planisher: CHAKA Transcribe Date/Time: Jun 08 2018 2:53P Dictated by : MAY HUTCHINSON MD This examination was interpreted and the report reviewed and electronically signed by: MAY HUTCHINSON MD on Jun 09 2018 7:39AM EST [id number] Normal [facility] CNCOon 05-23-2018 CNCO Letter Text May 23, 2018 Denise Lantigua [address] [place] [address] Dear Mr. Lantigua, Thank you for choosing [facility] for your medical care. To help reduce healthcare costs, it is important for us to collect deductible at the time of service. You are scheduled for services on 06/14/2018. According to your insurance company, you are responsible for a cdeductible of $1000. Please mail your check or money order, payable to [facility] along with the stub below, in the enclosed envelope. If you would like to pay with your credit card, please call [phone] for assistance or pay online at [employer]. Again, thank you for choosing [facility]. Sincerely, Mariana Turcios Patient Quality Engineering Manager Please detach and return in the enclosed envelope. Pay online at [employer] Patient Name: Denise Lantigua EMPI Number: [id number] Date of Service: 06/14/2018 Deductible Due: 1000 Amount Enclosed: $ .__ Please make checks payable to [facility]. Normal [facility] HOSPon 05-19-2018 HOSP Patient:Denise Lantigua MRN: Height:5' [...] 06/08/2018 51.0 39.0 Progress Notes ([facility] CC): RT Rinku, Tech 06/08/2018 2:39 PM [...] post op restrictions. ? Provided to patient: [facility] Surgery Guide, skin prep supplies, Spine Surgery Pre/post op education packet. Yes. ? Reviewed with patient to report to 1st floor Purlear surgery Yes. ? Reviewed with the patient [...] May 19, 2018 TIME: 1:51 PM PAGER: [facility] PROGRESSon 05-19-2018 Protein mass conc HNO ID: [id number] Author: Laurel Littlejohn) Luz Maria Service: (none) [...] 19, 2018 TIME: 1:51 PM PAGER: Hernandez [facility] CNOVstephie 05-17-2018 CNOV Office Visit (NSFRVW ) DENISE LANTIGUA ([id number]) 1980 M Date Time Provider Department 05/17/18 [...] post op restrictions. ? Provided to patient: [facility] Surgery Guide, skin prep supplies, Spine Surgery Pre/post op education packet. Yes. ? Reviewed with patient to report to 1st floor Purlear surgery Yes. ? Reviewed with the patient [...] PM PAGER: Referring Provider: NATALI SCHNEIDER (ALBERTO) [[id number]] Allergies As of Date: 05/17/2018 (No Known [...] better. Visit Notes: >> Sarah Mueller RN [facility] May 18, 2018 4:04 PM Status: Signed Neuro SPINE CARE COORDINATION PRE-OP VISIT ? Met with patient Grzegorz for pre op education. Given both written and verbal instructions re : Skin prep, wound care, pain management and post op restrictions. ? Provided to patient: [facility] Surgery Guide, skin prep supplies, Spine Surgery Pre/post op education packet. Yes. ? Reviewed with patient to report to [facility] floor Purlear surgery Yes. ? Reviewed with the patient [...] Status:Closed by LAUREL LOERA MD on 05/19/18 [facility] CNOVon 04-26-2018 CNOV Office Visit (SPMECO ) DENISE LANTIGUA ([id number]) 1980 M Date Time Provider Department 04/26/18 [...] position. 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 MATI Rowley, PAMadelyn Normal [facility] HISTORY PHYSICALon 8 HISTORY PHYSICAL HNO ID: [id number] Author: Karissa Noguera Service: OUTPATIENT IN BED [...] Lantigua DATE: 03/14/2018 TIME: 2:43 PM PAGER: [phone] Normal [facility] OPERATIVE NOon 03-14-2018 OPERATIVE NO HNO ID: [id number] Author: Karissa Noguera Service: Physical Medicine AND Rehabilitation Author Type: Physician Type: Operative Report Filed: 03/14/2018 4:26 PM Note Text: OPERATIVE/PROCEDURE REPORT LOG ID: [id number] Surgery/Procedure Date: 03/14/2018 Incision/Procedure Start Time: 4:02 PM Incision Close/Procedure End Time: 4:20 PM Surgeon(s)/Proceduralis t(s) and Blackjack Dealer(s): Surgeon(s) and Role: * Karissa Noguera - [...] 14, 2018 TIME: 4:21 PM PAGER/CONTACT #: [phone] [facility] PT EDon 03-14-2018 PT ED HNO ID: [id number] Author: Ana (Rn) NUBIA Nam Service: (none) [...] Ana Nam RN In Department: AMBULATORY SURGERY [facility] PT ED HNO ID: [id number] Author: May (Rn) NUBIA Munoz Service: (none) [...] May Munoz RN In Department: AMBULATORY SURGERY [facility] CNOVon 02-21-2018 CNOV Office Visit (SPMECO ) GRZEGORZ,DENISE Kirk ([id number]) 1980 M Date Time Provider Department 02/21/18 [...] Rowley, PRASHANTHC Referring Provider: NATALI SCHNEIDER (ALBERTO) [[id number]] Allergies As of Date: 02/21/2018 (No Known Allergies) Date Reviewed: 02/21/2018 Reviewed by: Carmen (Kendra) KENDRA Astorga - Fully Assessed Reason for Visit: Follow Up [171] Primary Visit Diagnosis:Radiculopathy , lumbar region [M54.16] Other Visit Diagnoses:Lumbar disc herniation [M51.26] Degeneration of lumbar intervertebral disc [M51.36] Order(s):CONSULT TO SPINE INTERVENTION [[id number]] Order #: [id number]: 1 Prescriptions as of 02/21/2018 Sig: AMLODIPINE [...] Encounter Status:Closed by NATALI SCHNEIDER on 03/07/18 [facility] HOSPon 02-21-2018 HOSP Patient:Denise Lantigua MRN: Height:5' [...] the following basenames: K,HCT Progress Notes (SPINE [facility]): Natali Schneider PA-C 03/07/2018 3:42 PM Signed [...] Natali Schneider, MATI, DK Previous Version Normal [facility] PROGRESSon 02-21-2018 Protein mass conc HNO ID: [id number] Author: Natali Schneider (Pa) Service: (none) Author Type: Physician Blackjack Dealer Type: Progress Notes Filed: 03/07/2018 3:42 PM [...] during today's visit. MATI Rowley, PA-C Normal [facility] MR-MR lumbar spine wo con IM Gray 02-14-2018 MR-MR lumbar spine wo con IMPORT Images were obtained outside of [facility] [id number] Normal [facility] Heydi 02-06-2018 CNPN Telephone (ORQ) DENISE LANTIGUA ([id number]) 1980 M Date Time Provider Department 02/06/18 NATALI SCHNEIDER (ALBERTO) ORQ During your visit today, we recorded the following information about you: Dai Wheatley PSR 02/06/2018 3:05 PM Signed Pt called and said that you wanted an MRI but it was denied. Pt can be reached @ [phone] Thanks Dai Wheatley PSR Natali Schneider PA-C 02/07/2018 10:42 AM Signed Peer to Peer completed, approved. # [id number] Please inform pt and have him go for his L spine MRI and then f/u. MATI Hollis, DK [facility] Multi Specialty/Spine Medicine [address] [facility], [address] [place] [address] Nathalia A Karen Psr 02/07/2018 11:14 AM Signed Called patient and have him this message. He will call to schedule a follow up after he has his MRI. Thank you! Allergies As of Date: 02/06/2018 (No Known Allergies) Date Reviewed: 01/17/2018 Reviewed by: Natali Mayo (Nicholas Schneider - Fully Assessed Reason for Visit: Radio Imaging Study Comments [7720] Prescriptions as of 02/06/2018 Sig: AMLODIPINE 5 [...] Status:Closed by NATALI SCHNEIDER on 02/07/18 Normal [facility] C-Reactive Proteinon 018 CRP mass conc 1.7 mg/dL High <0.9 [facility] Comment on above: Performed By: #### C BCDIF, WSR, CRP #### [facility] [email or web address] [address] [place], [place] [address] CBC and Differentialon 01-17 Abs Baso 0.13 k/uL High <0.11 [facility] Comment on above: Performed By: #### C BCDIF, WSR, CRP #### [facility] [email or web address] [address] [place] [address] Abs [place] 0.52 k/uL Normal <0.87 [facility] Comment on above: Performed By: #### C BCDIF, WSR, CRP #### [place] [address] [place] [address] Abs Neut 5.47 k/uL Normal 1.45-7.50 [facility] Comment on above: Performed By: #### C BCDIF, WSR, CRP #### [place] [phone] Absolute nRBC <0.01 Normal <0.01 [facility] Comment on above: Performed By: #### C BCDIF, WSR, CRP #### [place] [phone] Basophils/100 WBC (Bld) 1.5 % Normal [facility] Comment on above: Performed By: #### C BCDIF, WSR, CRP #### [place] [phone] DTYPE Auto Diff Normal [facility] Comment on above: Performed By: #### C BCDIF, WSR, CRP #### [place] [phone] Eosinophils #/vol (Bld) 0.10 10*3/uL Normal <0.46 [facility] Comment on above: Performed By: #### C BCDIF, WSR, CRP #### [place] [address] Eosinophils/100 WBC (Bld) 1.2 % Normal [facility] Comment on above: Performed By: #### C BCDIF, WSR, CRP #### [place] [phone] Erythrocyte distribution width Ratio (RBC) 13.9 % Normal 11.5-15.0 [facility] Comment on above: Performed By: #### C BCDIF, WSR, CRP #### [place] [address] [place] [address] Hematocrit Volume Fraction (Bld) 42.8 % Normal 39.0-51.0 [facility] Comment on above: Performed By: #### C BCDIF, WSR, CRP #### [place] [address] Hemoglobin mass conc (Bld) 14.2 g/dL Normal 13.0-17.0 [facility] Comment on above: Performed By: #### C BCDIF, WSR, CRP #### [place] [address] Lymphocytes #/vol (Bld) 2.34 10*3/uL Normal 1.00-4.00 [facility] Comment on above: Performed By: #### C BCDIF, WSR, CRP #### [place] [address] Lymphocytes/100 WBC (Bld) 27.3 % Normal [facility] Comment on above: Performed By: #### C BCDIF, WSR, CRP #### [place] [address] MCH Entitic mass (RBC) 28.2 pG Normal 26.0-34.0 [facility] Comment on above: Performed By: #### C BCDIF, WSR, CRP #### [place] [address] MCHC mass conc (RBC) 33.2 g/dL Normal 30.5-36.0 [facility] [place] Comment on above: Performed By: #### C BCDIF, WSR, CRP #### [place] [address] MCV Entitic volume (RBC) 85.1 fL Normal 80.0-100.0 [facility] Comment on above: Performed By: #### C BCDIF, WSR, CRP #### [place] [address] [place], [place] [address] Monocytes/100 WBC (Bld) 6.1 % Normal [facility] Comment on above: Performed By: #### C BCDIF, WSR, CRP #### [place] [address] [place], [place] [address] Neutrophils/100 WBC (Bld) 63.9 % Normal [facility] Comment on above: Performed By: #### C BCDIF, WSR, CRP #### [address] [address] NRBCs 0.0 /100 WBC Normal 0 [facility] Comment on above: Performed By: #### C BCDIF, WSR, CRP #### [place] [address] Platelet mean volume Entitic volume (Bld) 9.7 fL Normal 9.0-12.7 [facility] Comment on above: Performed By: #### C BCDIF, WSR, CRP #### [place] [address] [place], [place] [address] Platelets #/vol (Bld) 397 10*3/uL Normal 150-400 [facility] Comment on above: Performed By: #### C BCDIF, WSR, CRP #### [place] [address] [place], [place] [address] RBC #/vol (Bld) 5.03 10*6/uL Normal 4.20-6.00 [facility] [place] Comment on above: Performed By: #### C BCDIF, WSR, CRP #### [place] [id number] WBC #/vol (Bld) 8.58 10*3/uL Normal 3.70-11.00 [facility] [place] Comment on above: Performed By: #### C BCDIF, WSR, CRP #### [facility] [address] [place], [place] [address] CNOVon 01-17-2018 CNOV Office Visit (SPMECO ) DENISE LANTIGUA ([id number]) 1980 M Date Time Provider Department 01/17/18 [...] position. 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 MATI Hollis PA-C [facility] Specialty[facility]Spine [facility] [address] [facility], [address] [place] [address] Referring Provider: KATIE SALGUERO [[id number]] Allergies As of Date: 01/17/2018 (No Known Allergies) Date Reviewed: 01/17/2018 Reviewed by: Natali Schneider (Pa) - Fully Assessed Reason for Visit: New Patient [172] Low Back Pain [126] Cmt: b6ntllp, crushing/sharp 05/19 Reason For Visit History Recorded Primary Visit Diagnosis:Radiculopathy , lumbar region [M54.16] Other Visit Diagnoses:Low back pain, non-specific [M54.5] Imbalance [R26.89] Postoperative infection, subsequent encounter [T81.4XXD] Order(s):XR LUMBAR GENERAL 3V AP/LAT/L5-S1 [[id number]] Order #: [id number] FUTURE XR KNEE LIMITED 2V AP/LAT LT [[id number]] Order #: [id number] FUTURE MRI LUMBAR SPINE WO IVCON [1207330] Order #: [id number] FUTURE SED RATE WESTERGREN [SQWSR] Order #: [id number] FUTURE C-REACTIVE PROTEIN (CRP) [SQCRP] Order #: [id number] FUTURE CBC + DIFF [SQCBCDIF] Order #: [id number] FUTURE meloxicam (MOBIC) 15 mg tabletTake 1 tablet by mouth once daily. WITH FOODDisp: 30 tabletRfl: 1 CONSULT TO RHEUM/IMMUN DISEASE [9039] Order #: [id number]: 1 Prescriptions as of 01/17/2018 Sig: AMITRIPTYLINE [...] Status:Closed by NATALI SCHNEIDER on 01/17/18 Normal [facility] PROGRESSon 01-17-2018 Protein mass conc HNO ID: [id number] Author: Duyen (Rt) Shruti Nash Service: (none) Author Type: Sustainability Coach Type: Progress Notes Filed: 01/17/2018 11:12 AM [...] Nash, January 17, 2018 11:04 AM Normal [facility] Protein mass conc HNO ID: [id number] Author: Natali Mayo (Alberto) Jennie Service: (none) Author Type: Physician Blackjack Dealer Type: Progress Notes Filed: 01/17/2018 10:58 AM [...] position. 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 PHYSICAL EXAM: GENERAL [...] forwarded to consulting/requesting physician. MATI Hollis, PABenjiC [facility] [address] [facility], [address] [place] [address] Normal [facility] Sed Rate Westergrenon 2017 Sed Rate Westergren 22 mm/hr High 0-15 [facility] Comment on above: Performed By: #### C BCDIF, WSR, CRP #### [facility] [address] [place] [address] XR KNEE 2V AP/LAT LTon 01-17 XR [...] NO ACUTE OSSEOUS ABNORMALITY OTHER FINDINGS DESCRIBED Planisher: CHAKA Transcribe Date/Time: Jan 17 2018 11:21A Dictated by : MARLY WHEAT MD This examination was interpreted and the report reviewed and electronically signed by: MARLY WHEAT MD on Jan 17 2018 11:24AM EST [id number] Normal [facility] XR LUMBAR 3V AP/LAT/L5-S1on 01-17-2018 XR LUMBAR [...] space is labeled L5-S1 for this examination. Foya-zm-slrmbphc disc height narrowing at L5-S1. Vertebral body heights, disc heights and alignment otherwise normal. No fractures. Normal soft tissues. No other significant abnormality. IMPRESSION: DEGENERATIVE CHANGES AT L5-S1 Planisher: CHAKA Transcribe Date/Time: Jan 17 2018 11:20A Dictated by : MARLY WHEAT MD This examination was interpreted and the report reviewed and electronically signed by: MARLY WHEAT MD on Jan 17 2018 11:21AM EST [id number] Normal [facility] Vital Signs Date Time Vital Sign Value Performing Clinician Gerardi malvin 07-23-2024 14:45-0400 Body height 175.3 cm Mable Strickland CLIENT CARE CONSULTANT Work Phone: [facility] 07-23-2024 14:45-0400 Diastolic blood pressure 91 mm[Hg] Mable Strickland CLIENT CARE CONSULTANT Work Phone: [facility] 07-23-2024 14:45-0400 Heart rate 74 /min Mable Strickland CLIENT CARE CONSULTANT Work Phone: [facility] 07-23-2024 14:45-0400 SaO2% (BldA) [Mass fraction] 98 % Mable Strickland CLIENT CARE CONSULTANT Work Phone: [facility] 07-23-2024 14:45-0400 Systolic blood pressure 142 mm[Hg] Mable Osmel COREAS Work Phone: [facility] 07-18-2024 10:46-0400 Diastolic blood pressure 100 mm[Hg] Regina Amador [facility] 07-18-2024 10:46-0400 Heart rate 70 /min Regina Amador [facility] 07-18-2024 10:46-0400 Mean blood pressure 116 mm[Hg] Regina Gruver [facility] 07-18-2024 10:46-0400 Respiratory rate 20 /min Regina Gruver [facility] 07-18-2024 10:46-0400 Systolic blood pressure 149 mm[Hg] Regina Amador [facility] 05-10-2024 13:29-0400 Diastolic blood pressure 111 mm[Hg] Ezequiel Vogel [facility] 05-10-2024 13:29-0400 Heart rate 68 /min Ezequiel Vogel [facility] 05-10-2024 13:29-0400 Mean blood pressure 120 mm[Hg] Ezequiel Vogel [facility] 05-10-2024 13:29-0400 Respiratory rate 16 /min Ezequiel Vogel [facility] 05-10-2024 13:29-0400 Systolic blood pressure 138 mm[Hg] Ezequiel Vogel [facility] 12-09-2023 14:00-0500 Hourly Rounding Ronobir MEAGAN [facility] 12-09-2023 14:00-0500 Mean blood pressure 118 mm[Hg] Ronobir MEAGAN [facility] 12-09-2023 14:00-0500 Promise to Return Ronobir MEAGAN [facility] 12-09-2023 13:00-0500 Hourly Rounding Ronobir MEAGAN [facility] 12-09-2023 13:00-0500 Promise to Return Ronobir MEAGAN [facility] 12-09-2023 12:19-0500 Heart rate 64 /min Ronobir MEAGAN [facility] 12-09-2023 12:19-0500 SaO2% (BldA) [Mass fraction] 96 % Ronobir MEAGAN [facility] 12-09-2023 12:18-0500 Diastolic blood pressure 63 mm[Hg] Ronobir MEAGAN [facility] 12-09-2023 12:18-0500 Mean blood pressure 74 mm[Hg] Ronobir MEAGAN [facility] 12-09-2023 12:18-0500 Systolic blood pressure 97 mm[Hg] Ronobir MEAGAN [facility] 12-09-2023 12:17-0500 Body temperature 97.88 [degF] Ronobir MEAGAN [facility] 12-09-2023 12:00-0500 Hourly Rounding Ronobir MEAGAN [facility] 12-09-2023 12:00-0500 Promise to Return Ronobir MEAGAN [facility] 12-09-2023 08:01-0500 Heart rate 65 /min Ronobir MEAGAN [facility] 12-09-2023 08:01-0500 SaO2% (BldA) [Mass fraction] 98 % Ronobir MEAGAN [facility] 12-09-2023 08:00-0500 Body temperature 97.52 [degF] Ronobir MEAGAN [facility] 12-09-2023 08:00-0500 Diastolic blood pressure 101 mm[Hg] Ronobir MEAGAN [facility] 12-09-2023 08:00-0500 Mean blood pressure 115 mm[Hg] Ronobir MEAGAN [facility] 12-09-2023 08:00-0500 Systolic blood pressure 142 mm[Hg] Ronobir MEAGAN [facility] 12-09-2023 07:37-0500 SaO2% (BldA) [Mass fraction] 98 % Ronobir MEAGAN [facility] 12-09-2023 04:52-0500 Body temperature 98.06 [degF] Ronobir MEAGAN [facility] 12-09-2023 04:52-0500 Diastolic blood pressure 94 mm[Hg] Ronobir MEAGAN [facility] 12-09-2023 04:52-0500 Heart rate 63 /min Ronobir MEAGAN [facility] 12-09-2023 04:52-0500 Systolic blood pressure 135 mm[Hg] Ronobir MEAGAN [facility] 12-09-2023 02:42-0500 Blood Pressure Location Ronobir MEAGAN [facility] 12-09-2023 02:42-0500 Heart rate 74 /min Ronobir MEAGAN [facility] 12-09-2023 02:42-0500 Respiratory rate 18 /min Ronobir MEAGAN [facility] 12-09-2023 01:30-0500 Mean blood pressure 111 mm[Hg] Ronobir MEAGAN [facility] 12-09-2023 01:30-0500 Respiratory rate 18 /min Ronobir MEAGAN [facility] 12-09-2023 01:26-0500 Mean blood pressure 114 mm[Hg] Ronobir MEAGAN [facility] 12-09-2023 01:26-0500 Respiratory rate 16 /min Ronobir MEAGAN [facility] 12-09-2023 00:56-0500 Heart rate 79 /min Ronobir MEAGAN [facility] 12-09-2023 00:56-0500 Respiratory rate 19 /min Ronobir MEAGAN [facility] 09-29-2023 15:07-0500 Diastolic blood pressure 82 mm[Hg] Denise Pérezofferson [facility] 09-29-2023 15:07-0500 Heart rate 84 /min Denise Betoofferson [facility] 09-29-2023 15:07-0500 SaO2% (BldA) [Mass fraction] 94 % Denise Christofferson [facility] 09-29-2023 15:07-0500 Systolic blood pressure 112 mm[Hg] Denise Christofferson [facility] 08-31-2023 10:06-0500 Hourly Rounding Durga Paster [facility] 08-31-2023 10:06-0500 Promise to Return Durga Paster [facility] 08-31-2023 09:36-0500 Hourly Rounding Durga Paster [facility] 08-31-2023 09:36-0500 Promise to Return Durga Paster [facility] 08-31-2023 09:31-0500 SaO2% (BldA) [Mass fraction] 96 % Durga Paster [facility] 08-31-2023 08:13-0500 Hourly Rounding Durga Paster [facility] 08-31-2023 08:13-0500 Promise to Return Durga Paster [facility] 08-31-2023 07:34-0500 Heart rate 80 /min Durga Paster [facility] 08-31-2023 07:34-0500 SaO2% (BldA) [Mass fraction] 96 % Durga Paster [facility] 08-31-2023 07:33-0500 Diastolic blood pressure 96 mm[Hg] Durga Paster [facility] 08-31-2023 07:33-0500 Mean blood pressure 110 mm[Hg] Durga Paster [facility] 08-31-2023 07:33-0500 Systolic blood pressure 138 mm[Hg] Durga Paster [facility] 08-31-2023 07:00-0500 Body temperature 98.24 [degF] Durga Paster [facility] 08-30-2023 23:43-0500 Body temperature 98.6 [degF] Durga Paster [facility] 08-30-2023 23:43-0500 Diastolic blood pressure 84 mm[Hg] Durga Paster [facility] 08-30-2023 23:43-0500 Heart rate 80 /min Durga Paster [facility] 08-30-2023 23:43-0500 Respiratory rate 16 /min Durga Paster [facility] 08-30-2023 23:43-0500 SaO2% (BldA) [Mass fraction] 96 % Durga Paster [facility] 08-30-2023 23:43-0500 Systolic blood pressure 118 mm[Hg] Durga Paster [facility] 08-30-2023 21:00-0500 Diastolic blood pressure 93 mm[Hg] Durga Paster [facility] 08-30-2023 21:00-0500 Heart rate 88 /min Durga Paster [facility] 08-30-2023 21:00-0500 Systolic blood pressure 134 mm[Hg] Durga Paster [facility] 08-30-2023 19:15-0500 Mean blood pressure 95 mm[Hg] Durga Paster [facility] 08-30-2023 15:35-0500 Body temperature 97.88 [degF] Durga Paster [facility] 08-30-2023 15:35-0500 Mean blood pressure 108 mm[Hg] Durga Paster [facility] 08-30-2023 11:00-0500 Body temperature 97.34 [degF] Durga Paster [facility] 08-30-2023 00:58-0500 Body temperature 97.52 [degF] Durga Paster [facility] 08-29-2023 22:15-0500 Mean blood pressure 132 mm[Hg] Durga Paster [facility] 08-29-2023 22:15-0500 Respiratory rate 15 /min Durga Paster [facility] 08-29-2023 21:26-0500 Mean blood pressure 136 mm[Hg] Durga Paster [facility] 08-29-2023 21:26-0500 Respiratory rate 8 /min Durga Paster [facility] 08-29-2023 21:00-0500 Respiratory rate 10 /min Durga Paster [facility] 08-29-2023 20:35-0500 Mean blood pressure 135 mm[Hg] Durga Paster [facility] 08-29-2023 18:52-0500 Blood Pressure Location Durga Paster [facility] 08-29-2023 18:52-0500 Heart rate 92 /min Durga Paster [facility] 08-29-2023 18:52-0500 Respiratory rate 18 /min Durga Paster [facility] 08-29-2023 16:26-0500 Heart rate 80 /min Durga Paster [facility] 08-29-2023 16:26-0500 Respiratory rate 24 /min Durga Paster [facility] 10-19-2022 15:20-0500 Body height 175.26 cm Geovany Valle Other [facility] [employer] Other 10-19-2022 15:20-0500 Body mass index (BMI) [Ratio] 24.3 kg/m2 Geovany Valle Other [facility] Other 10-19-2022 15:20-0500 Body weight 74.66 kg Geovany Valle Other [facility] Other 10-19-2022 15:20-0500 Diastolic blood pressure 112 mm[Hg] Geovany Valle Other [facility] [employer] Other 10-19-2022 15:20-0500 Systolic blood pressure 148 mm[Hg] Geovany Valle Other [facility] [employer] Other 08-17-2022 09:04-0500 Diastolic blood pressure 101 mm[Hg] DO Katie Salguero Work Phone: [facility] 08-17-2022 09:04-0500 Heart rate 80 /min DO Katie Salguero Work Phone: [facility] 08-17-2022 09:04-0500 Respiratory rate 16 /min DO aKtie Salguero Work Phone: [facility] 08-17-2022 09:04-0500 SaO2% (BldA) [Mass fraction] 97 % DO Katie Salguero Work Phone: [facility] 08-17-2022 09:04-0500 Systolic blood pressure 136 mm[Hg] DO Katie Salguero Work Phone: [facility] 08-17-2022 08:21-0500 Inhaled oxygen flow rate 3 L/min DO Katie Salguero Work Phone: [facility] 08-17-2022 06:46-0500 Body height 175.26 cm DO Katie Salguero Work Phone: [facility] 08-17-2022 06:46-0500 Body weight 72.57 kg DO Katie Noemy Work Phone: [facility] 05-18-2022 09:58-0400 Diastolic blood pressure 106 mm[Hg] Carmen Severino [facility] 05-18-2022 09:58-0400 Heart rate 77 /min Carmen Severino [facility] 05-18-2022 09:58-0400 Mean blood pressure 126 mm[Hg] Carmen Severino [facility] 05-18-2022 09:58-0400 Respiratory rate 12 /min Carmen Severino [facility] 05-18-2022 09:58-0400 Systolic blood pressure 165 mm[Hg] Carmen Severino [facility] 05-10-2022 10:00-0400 Body height 175.26 cm Shaquille Remy Other [facility] Other 05-10-2022 10:00-0400 Body mass index (BMI) [Ratio] 24.66 kg/m2 Shaquille Remy Other [facility] Other 05-10-2022 10:00-0400 Body weight 75.75 kg Shaquille Remy Other [facility] Other 03-09-2022 14:31-0400 Diastolic blood pressure 86 mm[Hg] Carmen Severino [facility] 03-09-2022 14:31-0400 Heart rate 87 /min Carmen Severino [facility] 03-09-2022 14:31-0400 Mean blood pressure 98 mm[Hg] Carmen Severino [facility] 03-09-2022 14:31-0400 Respiratory rate 14 /min Carmen Severino [facility] 03-09-2022 14:31-0400 Systolic blood pressure 122 mm[Hg] Carmen Severino [facility] 02-11-2022 14:40-0400 Blood Pressure Location Denise Welch [facility] 02-11-2022 14:40-0400 Diastolic blood pressure 78 mm[Hg] Denise Welch [facility] 02-11-2022 14:40-0400 Heart rate 83 /min Denise Welch [facility] 02-11-2022 14:40-0400 Respiratory rate 18 /min Denise Welch [facility] 02-11-2022 14:40-0400 SaO2% (BldA) [Mass fraction] 100 % Deinse Welch [facility] 02-11-2022 14:40-0400 Systolic blood pressure 105 mm[Hg] Denise Welch [facility] 02-11-2022 10:45-0400 Body height 175.26 cm Shaquille Felter Other [facility] Other 02-11-2022 10:45-0400 Body mass index (BMI) [Ratio] 24.66 kg/m2 Shaquille Felter Other [facility] Other 02-11-2022 10:45-0400 Body weight 75.75 kg Shaquille Felter Other [facility] Other 01-12-2022 15:30-0400 Body height 175.26 cm Shaquille Felter Other [facility] Other 01-12-2022 15:30-0400 Body mass index (BMI) [Ratio] 25.1 kg/m2 Shaquille Felter Other [facility] Other 01-12-2022 15:30-0400 Body weight 77.11 kg Shaquille Felter Other [facility] Other 12-15-2021 14:30-0500 Body height 175.26 cm Shaquille Felter Other [facility] Other 12-15-2021 14:30-0500 Body mass index (BMI) [Ratio] 25.25 kg/m2 Shaquille Felter Other [facility] Other 12-15-2021 14:30-0500 Body weight 77.57 kg Shaquille Felter Other [facility] Other 11-17-2021 14:45-0500 Body height 175.26 cm Shaquille Felter Other [facility] Other 11-17-2021 14:45-0500 Body mass index (BMI) [Ratio] 25.25 kg/m2 Shaquille Felter Other [facility] Other 11-17-2021 14:45-0500 Body weight 77.57 kg Shaquille Felter Other [facility] Other 07-16-2021 09:15-0400 Body height 175.26 cm Shaquille Felter Other [facility] Other 07-16-2021 09:15-0400 Body mass index (BMI) [Ratio] 25.25 kg/m2 Shaquille Felter Other [facility] Other 07-16-2021 09:15-0400 Body weight 77.57 kg Shaquille Felter Other [facility] [employer] Other Encounters Encounter Date Encounter Type Care Provider Facility Start: 03-07-2025 End: 03-07-2025 ambulatory BELL [facility] Start: 01-21-2025 End: 01-21-2025 ambulatory KATIE SALGUERO Not Available Start: 12-17-2024 End: 12-17-2024 ambulatory ISADORA [facility] Start: 07-23-2024 End: 07-23-2024 Office outpatient visit 25 minutes Mable Strickland NP Work Phone: [facility] Comment on above: Failed back surgical syndrome (Primary Dx); Coronary artery disease involving [place] coronary artery of [place] heart without angina pectoris (CMS/HCC); Colon cancer screening; Chronic pain syndrome; Recurrent major depressive disorder, in partial remission (HCC) (CMS/HCC); Primary hypertension (CMS/HCC) Start: 07-23-2024 End: 07-23-2024 ambulatory MABLE STRICKLAND Not Available Start: 07-18-2024 End: 07-18-2024 ambulatory SHQAUILLE REMY [facility] Start: 07-11-2024 End: 07-18-2024 Patient encounter procedure Regina Amador [facility] Start: 06-28-2024 End: 06-28-2024 Telephone encounter Mable Strickland NP Work Phone: [facility] Start: 06-15-2024 End: 06-15-2024 ambulatory [facility] Start: 05-24-2024 End: 05-24-2024 ambulatory [facility] Start: 05-10-2024 End: 05-10-2024 ambulatory SHAQUILLE REMY Facility:[facility] Start: 05-10-2024 End: 05-10-2024 Pain Management Ezequiel Vogel [facility] Start: 05-04-2024 End: 05-04-2024 ambulatory [facility] Start: 04-25-2024 End: 04-25-2024 ambulatory [facility] Start: 04-18-2024 End: 04-18-2024 ambulatory [facility] Work Phone: Start: 04-18-2024 End: 04-18-2024 Patient encounter procedure [facility] Work Phone: Start: 04-06-2024 ambulatory ISADORA TOWNSEND [facility] Start: 03-21-2024 End: 03-21-2024 ambulatory MABLE STRICKLAND Not Available Start: 03-19-2024 End: 03-19-2024 ambulatory [facility] Work Phone: Start: 03-19-2024 End: 03-19-2024 Patient encounter procedure [facility] Work Phone: Start: 02-16-2024 End: 02-16-2024 ambulatory [facility] Work Phone: Start: 02-16-2024 End: 02-16-2024 Patient encounter procedure [facility] Work Phone: Start: 02-08-2024 End: 02-08-2024 ambulatory KATIE SALGUERO Not Available Start: 02-01-2024 End: 02-01-2024 ambulatory KARISSA CAMPBELL Not Available Start: 01-27-2024 End: 01-27-2024 ambulatory MD Abhi Guerra Facility:[facility] Start: 01-27-2024 End: 01-27-2024 Patient encounter procedure Abhi Guerra [facility] Start: 01-26-2024 End: 01-26-2024 ambulatory YUERONG ROZ Not Available Start: 01-24-2024 End: 01-24-2024 ambulatory YUERONG ROZ Not Available Start: 01-19-2024 End: 01-19-2024 ambulatory [facility] Work Phone: Start: 01-19-2024 End: 01-19-2024 Patient encounter procedure [facility] Work Phone: Start: 12-21-2023 End: 12-21-2023 Patient encounter procedure [facility] Work Phone: Start: 12-09-2023 End: 12-09-2023 ambulatory DO Dora RHODES Facility:[facility] Start: 12-09-2023 End: 12-09-2023 Emergency department patient visit Dora RHODES [facility] Start: 11-21-2023 End: 11-21-2023 ambulatory Shaquille Remy Other [facility] Other Start: 11-21-2023 Office outpatient vi sit 25 minutes Shaquille Remy [facility] [place] Start: 11-21-2023 Telephone encounter [facility] Start: 11-18-2023 End: 11-18-2023 ambulatory Denise Welch Facility:[facility] Start: 11-18-2023 End: 11-18-2023 Patient encounter procedure Denise Welch [facility] Start: 11-03-2023 End: 11-03-2023 ambulatory Treytiffanie Carranza Facility: [facility] Start: 10-26-2023 ambulatory Denise Welch Fac ility:[facility] Start: 10-20-2023 End: 10-20-2023 ambulatory Shaquille Remy Other [facility] [employer] Other Start: 10-20-2023 Office outpatient vi sit 25 minutes Shaquille Remy [facility] [place] Start: 10-20-2023 Telephone encounter [facility] Start: 09-29-2023 End: 09-29-2023 ambulatory Denise Welch Facility:[facility] Start: 09-29-2023 End: 09-29-2023 Patient encounter procedure Denise Welch [facility] Start: 09-22-2023 End: 09-22-2023 ambulatory Shaquille Remy Other [facility] Other Start: 09-22-2023 Office outpatient vi sit 25 minutes Shaquille Remy [facility] [place] Start: 09-22-2023 Telephone encounter [facility] Start: 08-29-2023 End: 08-31-2023 Evaluation and management of inpatient Durga Thompson Facility:[facility] Start: 08-29-2023 End: 08-31-2023 Evaluation and management of inpatient Durga Thompson [facility] Start: 08-25-2023 End: 08-25-2023 ambulatory Shaquille Remy Other [facility] Other Start: 08-25-2023 Office outpatient vi sit 25 minutes Shaquille Remy [facility] [place] Start: 08-25-2023 Telephone encounter Shaquille DA SILVA [facility] [place] Start: 07-28-2023 End: 07-28-2023 ambulatory Shaquille Remy Other [facility] Other Start: 07-28-2023 Office outpatient vi sit 25 minutes Shaquille Remy [facility] [place] Start: 07-28-2023 Telephone encounter Shaquille Remy [facility] [place] Start: 06-30-2023 End: 06-30-2023 ambulatory Shaquille Remy Other [facility] Other Start: 06-30-2023 Office outpatient vi sit 25 minutes Shaquille Duarteer [facility] [place] Start: 06-30-2023 Telephone encounter Shaquille Remy [facility] [place] Start: 05-31-2023 End: 05-31-2023 Patient encounter procedure DO Katie Salguero Work Phone: [facility] Start: 05-31-2023 End: 05-31-2023 ambulatory Katie Leonkatarzynamely [facility] Work Phone: Start: 05-31-2023 Office outpatient vi sit 25 minutes Shaquille Remy [facility] [place] Start: 05-31-2023 Telephone encounter Shaquille DA SILVA [facility] [place] Start: 04-11-2023 End: 04-11-2023 ambulatory Shaquille Duarteshantal Other [facility] Other Start: 04-11-2023 Telephone encounter Shaquille Duarteshantal [facility] [place] Start: 04-05-2023 End: 04-05-2023 ambulatory Shaquille Duarteshantal Other [facility] Other Start: 04-05-2023 Telephone encounter Shaquille DA SILVA [facility] [place] Start: 03-31-2023 End: 03-31-2023 ambulatory Shaquille Geraldshantal Other [facility] Other Start: 03-31-2023 Office outpatient vi sit 25 minutes Shaquille Remy [facility] [place] Start: 03-31-2023 Telephone encounter Shaquille DA SILVA [facility] Start: 02-03-2023 End: 02-03-2023 ambulatory Shaquille Geraldshantal Other [facility] Other Start: 02-03-2023 Telephone encounter Shaquille DA SILVA [facility] Start: 01-25-2023 End: 01-25-2023 ambulatory Thien POWER Facility:[id number] Start: 01-19-2023 ambulatory Thien POWER Facility:[id number] Start: 01-19-2023 Encounter for preprocedural laboratory examination Thien POWER [facility] Start: 01-04-2023 End: 01-04-2023 ambulatory Shaquille Geraldshantal Other [facility] Other Start: 01-04-2023 Office outpatient vi sit 25 minutes Shaquille Remy [facility] [place] Start: 01-04-2023 Telephone encounter Shaquille DA SILVA [facility] Start: 12-28-2022 End: 12-28-[address] DOCTOR HATCH Facility:[id number] Start: 12-14-2022 End: 12-14-2022 ambulatory Thien POWER Facility:[id number] Start: 12-08-2022 End: 12-08-2022 ambulatory Shaquille Remy Other [facility] Other Start: 12-08-2022 Telephone encounter Shaquille Remy [facility] [place] Start: 12-07-2022 End: 12-07-2022 ambulatory Shaquille Remy Other [facility] Other Start: 12-07-2022 Office outpatient vi sit 25 minutes Shaquille Remy [facility] [place] Start: 12-07-2022 Telephone encounter Shaquille Remy [facility] [place] Start: 12-03-[address] Katie Salguero Facility:[id number] Start: 11-09-2022 End: 11-09-2022 ambulatory Shaquille Remy Other [facility] Other Start: 11-09-2022 Office outpatient vi sit 25 minutes Shaquille Remy [facility] [place] Start: 11-09-2022 Telephone encounter Shaquille Remy [facility] Start: 10-20-2022 End: 10-20-2022 ambulatory Geovany Valle Other [facility] Other Start: 10-20-2022 Telephone encounter Geovany Valle [facility] Start: 10-19-2022 End: 10-19-2022 ambulatory Geovany Valle Other [facility] Other Start: 10-19-2022 Office outpatient ne w 30 minutes Geovany Valle [facility] Start: 10-07-2022 End: 10-07-2022 ambulatory Shaquille Remy Other [facility] Other Start: 10-07-2022 Telephone encounter Shaquille Remy [facility] [place] Start: 09-09-2022 End: 09-09-2022 ambulatory Shaquille Remy Other [facility] Other Start: 09-09-2022 Office outpatient vi sit 25 minutes Shaquille Remy [facility] [place] Start: 09-09-2022 Telephone encounter Shaquille DA SILVA Rashmi [facility] Start: 08-20-2022 End: 08-20-2022 ambulatory Shaquille Geraldshantal Other [facility] Other Start: 08-20-2022 Follow-up encounter Shaquille Caraballo [facility] [place] Start: 08-17-2022 (Procedure) Short Shaquille Remy [facility] Start: 08-17-2022 End: 08-17-2022 Admission to same day surgery center DO Katie Salguero Work Phone: [facility] Start: 08-17-2022 End: 08-17-2022 ambulatory DO Katie Salguero Work Phone: [facility] Work Phone: Start: 08-05-2022 End: 08-05-2022 ambulatory Shaquille Remy Other [facility] Other Start: 08-05-2022 Office outpatient vi sit 25 minutes Shaquille Remy [facility] [place] Start: 08-05-2022 Telephone encounter Shaquille DA SILVA Rash[facility] [place] Start: 07-08-2022 End: 07-08-2022 ambulatory Shaquille Remy Other [facility] Other Start: 07-08-2022 Office outpatient vi sit 25 minutes Shaquille Remy [facility] [place] Start: 06-10-2022 End: 06-10-2022 ambulatory Shaquille Remy Other [facility] Other Start: 06-10-2022 Office outpatient vi sit 25 minutes Shaquille Remy [facility] [place] Start: 05-18-2022 End: 05-18-2022 Patient encounter procedure Carmen Severino [facility] Start: 05-18-2022 End: 05-18-2022 Patient encounter procedure Carmen Severino [facility] Start: 05-10-2022 End: 05-10-2022 ambulatory Shaquille Felter Other [facility] Other Start: 05-10-2022 Office outpatient vi sit 25 minutes Shaquille Felter [facility] [place] Start: 04-01-2022 End: 04-01-2022 ambulatory Shaquille Felter Other [facility] Other Start: 04-01-2022 Office outpatient vi sit 25 minutes Shaquille Felter [facility] [place] Start: 03-11-2022 End: 03-11-2022 ambulatory Shaquille Felter Other [facility] Other Start: 03-11-2022 Office outpatient vi sit 25 minutes Shaquille Felter [facility] [place] Start: 03-09-2022 End: 03-09-2022 Pain Management Camren Severino [facility] Start: 02-11-2022 End: 08-13-2022 Pre-admission assessment Denise Welch [facility] Start: 02-11-2022 End: 02-11-2022 Patient encounter procedure Denise Welch [facility] Start: 02-11-2022 End: 02-11-2022 ambulatory Shaquille Felter Other [facility] Other Start: 02-11-2022 Office outpatient vi sit 25 minutes Shaquille Felter [facility] [place] Start: 01-15-2022 End: 01-15-2022 ambulatory Shaquille Felter Other [facility] Other Start: 01-15-2022 Telephone encounter [facility]ille [facility] Start: 01-12-2022 End: 01-12-2022 ambulatory Shaquille Duarteer Other [facility] Other Start: 01-12-2022 Office outpatient vi sit 25 minutes Shaquille Duarteer [facility] [place] Start: 12-15-2021 End: 12-15-2021 ambulatory Shaquille Duarteer Other [facility] Other Start: 12-15-2021 Office outpatient vi sit 25 minutes Shaquille Felter [facility] [place] Start: 11-17-2021 End: 11-17-2021 ambulatory Shaquille Duarteer Other [facility] Other Start: 11-17-2021 Office outpatient vi sit 25 minutes Shaquille Duarteer [facility] [place] Start: 10-15-2021 End: 10-15-2021 ambulatory Shaquille Duarteer Other [facility] Other Start: 10-15-2021 Office outpatient vi sit 25 minutes Shaquille Duarteer [facility] [place] Start: 09-14-2021 End: 09-14-2021 ambulatory Shaquille Duarteer Other [facility] Other Start: 09-14-2021 Office outpatient vi sit 25 minutes Shaquille Duarteer [facility] [place] Start: 09-07-2021 (Procedure) Short Shaquille Remy [facility] Start: 09-07-2021 End: 09-07-2021 ambulatory Shaquille Duarteer Other [facility] Other Start: 08-18-2021 End: 08-18-2021 ambulatory Shaquille Duarteer Other [facility] Other Start: 08-18-2021 Office outpatient vi sit 25 minutes Shaquille Remy [facility] [place] Start: 07-16-2021 Office outpatient vi sit 25 minutes Shaquille Remy [facility] [place] Start: 02-22-2020 Patient encounter status Shaquille Remy Other [employer] Other Start: 11-07-2018 End: 11-07-2018 Patient encounter procedure LAUREL LITTLEJOHN) [facility] Start: 07-07-2018 End: 07-07-2018 Patient encounter procedure LAUREL LITTLEJOHN) [facility] Start: 06-14-2018 End: 06-14-2018 Patient encounter procedure LAUREL LITTLEJOHN) [facility] Start: 06-08-2018 Encounter for other preprocedural examination NATALI SCHNEIDER [facility] Start: 06-08-2018 End: 06-09-2018 Patient encounter procedure LAUREL RODNEY [facility] Start: 05-17-2018 End: 05-22-2018 Patient encounter procedure LAUREL LITTLEJOHN) [facility] Start: 04-26-2018 End: 04-27-2018 Patient encounter procedure NATALI DORAN ([place])[facility] Start: 03-14-2018 End: 03-14-2018 Patient encounter procedure KARISSA NOGUERA [facility] Start: 02-21-2018 End: 03-08-2018 [facility] Start: 01-17-2018 Patient encounter procedure NATALI CALLEJAS) JENNIE [facility] Start: 01-17-2018 End: 01-18-2018 Patient encounter procedure [facility]JAS[facility] Procedures Date Procedure Procedure Detail Performing Clinician Start: 08-29-2023 Percutaneous coronar y intervention Durga Thompson Start: 05-31-2023 Radiography of thora cic spine DO Katie Salguero Work Phone: Start: 08-17-2022 Implantation of elec tronic stimulator of spine DO Katie Salguero Work Phone: Start: 06-08-2018 Antibody screen MADONNA ROMERO LUZ MARIA Comment on above: Performed By: #### T [id number] #### [place] [id number] Start: 10-10-2017 Discectomy of spine Shivam Severino [...] ant neoplasm of colon Colorectal Cancer Screening [facility] Comment on above: Postponed from 01/23 (Patient Refused) Start: 04-08-2025 Influenza vaccination Influenza Vacc ine (#1) [facility] Comment on above: Postponed from 06/10 (Patient Refused) Start: 01-21-2025 End: 01-21-2025 Patient encounter procedure 01/21/2025 3:00 PM EDT Office Visit [facility] [address] [place] [address] Katie Salguero, [address] [place] [address] [facility] Start: 01-21-2025 End: 07-23-2025 CBC W Auto Differential panel - Blood CBC and differential Lab Routine Primary hypertension (CMS/HCC) Expected: 01/21/2025 (Approximate), Expires: 07/23/2025 [facility] Work Phone: Comment on above: Expected: 01/21/2025 (Approximate), Expires: 07/23/2025 Start: 01-21-2025 End: 07-23-2025 Comprehensive metabolic 2000 panel - Serum or Plasma Comprehensive metabolic panel Lab Routine Primary hypertension ([facility]/HCC) Expected: 01/21/2025 (Approximate), Expires: 07/23/2025 [facility] Comment on above: Expected: 01/21/2025 (Approximate), Expires: 07/23/2025 Start: 01-21-2025 End: 07-23-2025 Lipid 1996 panel - Serum or Plasma Lipid panel Lab Routine Primary hypertension ([facility]/HCC) Expected: 01/21/2025 (Approximate), Expires: 07/23/2025 [facility] Comment on above: Expected: 01/21/2025 (Approximate), Expires: 07/23/2025 Start: 01-21-2025 End: 07-23-2025 Microalbumin/Creatinine panel in random Urine Microalbumin / creatinine urine ratio Lab Routine Primary hypertension ([facility]/HCC) Expected: 01/21/2025 (Approximate), Expires: 07/23/2025 [facility] Comment on above: Expected: 01/21/2025 (Approximate), Expires: 07/23/2025 Start: 01-21-2025 End: 07-23-2025 Urinalysis complete panel - Urine Urinalysis with microscopic Lab Routine Primary hypertension ([facility]) Expected: 01/21/2025, Expires: 07/23/2025 [facility] Comment on above: Expected: 01/21/2025 , Expires: 07/23/2025 Start: 09-19-2024 End: 09-19-2024 Patient encounter procedure 09/19/2024 10:30 AM EST Office Visit [facility] [address] [place] [address] Katie Salguero DO [address] [place] [address] [facility] Start: 06-10-2024 Influenza vaccination Influenza Vacc ine (#1) [facility] Start: 04-18-2024 Patient referral [facility] Work Phone: Start: 03-19-2024 Patient referral [facility] Work Phone: Start: 08-17-2022 [facility] Start: 1980 Screening for malign ant neoplasm of colon [facility] Patient Education Felter Non Trish gnostic Block [facility] Work Phone: Patient referral [facility] Work Phone: Immunizations Immunization Date Immunization Notes Care Provider Fa jagruti 07-28-2021 influenza, injectabl e, quadrivalent, preservative free Mable Strickland CLIENT CARE CONSULTANT Work Phone: [facility] 07-28-2021 influenza virus vaccine, unspecified formulation Mable Osmel CLIENT CARE CONSULTANT Work Phone: [facility] 07-12-2018 Influenza, injectabl e, Madin Jannet Canine Kidney, quadrivalent with preservative Mable Omsel CLIENT CARE CONSULTANT Work Phone: [facility] 09-28-2017 Depo-Medrol [address] Other [facility] Other 09-08-2017 influenza, injectabl e, quadrivalent, preservative free Mable Osmel CLIENT CARE CONSULTANT Work Phone: [facility] 05-12-2016 Kenalog -40 mg Shaquille Remy Other [facility] Other 08-05-2015 Depo-Medrol [address] Other [facility] Other 06-12-2015 Depo-Medrol [address] Other [facility] Other 04-22-2015 Depo-Medrol [address] Other [facility] Other 01-15-2015 Depo-Medrol [address] Other [facility] Other 07-24-2013 seasonal influenza, intradermal, preservative free Mable Osmel CLIENT CARE CONSULTANT Work Phone: [facility] Payers Date Payer Category Payer Unknown [id number] 2023 Private Health Insurance [id number] 2023 Private Health Insurance [id number] 2022 Self-pay [id number] 1978 Unknown [id number] 2.16.840.1.039538.3.579.2.593 1978 Unknown [id number] 2.16.840.1.863223.3.579.2.1068 1978 Unknown [id number] 2.16.840.1.323535.3.579.2.1068 1978 Unknown [id number] 2.16.840.1.397151.3.579.2.1068 1978 Unknown [id number] 2.16.840.1.190182.3.579.2.1068 1978 Unknown [id number] 2.16.840.1.776997.3.579.2. 1978 Unknown [id number] 2.16.840.1.432948.3.579.2. 1978 Unknown [id number] 2.16.840.1.598485.3.579.2. 1978 Unknown [id number] 2.16.840.1.456269.3.579.2. 1978 Unknown [id number] 2.16.840.1.516086.3.579.2 1978 Unknown [id number] 2.16.840.1.002183.3.579.2. 1978 Unknown [id number] 2.16.840.1.711120.3.579.2.727 1978 Unknown [id number] 2.16.840.1.194702.3.579.2.727 1978 Unknown [id number] 2.16.840.1.383951.3.579.2.9 1978 Unknown [id number] 2.16.840.1.207351.3.579.2.1258 1978 Unknown [id number] 2.16.840.1.820204.3.579.2.1258 1978 Unknown [id number] 2.16.840.1.218077.3.579.2.1258 1978 Unknown [id number] 2.16.840.1.464949.3.579.2.1258 1978 Unknown [id number] 2.16.840.1.251326.3.579.2.1258 1978 Unknown [id number] 2.16.840.1.571627.3.579.2.1259 1959 Unknown [id number] 2.16.840.1.877244.19 Private Health Insurance [facility] [id number] Unknown [place] BC/BS [id number] Unknown [id number] 2.16.840.1.503335.3.579.2.531 Unknown [id number] 2.16.840.1.606024.3.579.2.531 Social History Date Type Detail Facility Tobacco smoking status Unknown if ever sm oked [facility] [employer] Other Start: 09-05-2023 Sex Assigned At Male N [facility] [employer] Other Start: 03-09-2022 End: 05-10-2024 Light tobacco smoker (finding) [facility] Start: 03-30-2021 End: 02-16-2024 Tobacco smoking status NHIS Smoker (finding) [facility] Start: 1980 Sex Assigned At Male F [facility] Start: 09-06-2023 Tobacco smoking stat us NHIS [...] Sex assigned at Not on file N [facility] Medical Equipment Procedure Code Equipment Code Equipment Origin al Text Equipment Identifier Dates Implantation, spinal cord stimulator, stage 1 Analgesic spinal cord electrical stimulation system [id number] FDA Start: 08-17-2022 PCI Unknown 08/11 0 [...] Assessment Result Facility 07-18-2024 Functional Status N/A [facility] 05-10-2024 Functional Status N/A [facility] 12-09-2023 Functional Status N/A [facility] 12-09-2023 Functional Status [facility] 09-29-2023 Functional Status N/A [facility] 08-29-2023 Functional Status No [facility] 08-29-2023 Functional Status [facility] 05-18-2022 Functional Status N/A [facility] Clinical Notes 11-25-2016 to 03-07-2025 Mable Strickland NP - 07/23/2024 3:00 PM EDT Note Date & Type Note Facility 03-07-2025 Note [facility] Cardiology Clinic Note Chief Complaint: HPI: [...] and LAD henri (more content not included)... [facility] 12-17-2024 Note Cardiology Clinic No te HPI: [...] poorly controlled 4. Coronary artery disease involving georgetown coronary artery of georgetown (more content not included)... [facility] 07-23-2024 History of Present illness Narrative Images from the original note were not included. Denise Lantigua is a 44 y.o. male presents with chief complaint of Three-month office visit HPI: HPI Patient went to [facility] mgt doctor at [facility]. He was prescribed Amitriptyline, which he was already on. They are trying to get him a new MRI, and maybe doing injection in his C-spine, only if his structural iron erector will approve him to be off of [...] continues to follow with pain management in [place]. He experiences difficulty in distinguishing between chest [...] HISTORY 08/29/2023 cardiac cath LAD stent [facility] OTHER SURGICAL HISTORY 2023 heart cath RADIOFREQUENCY [...] Depression: Not at risk (11/07/2018) [facility] PHQ-2 PHQ-2 score: 0 FAMILY HISTORY: Family [...] surgical syndrome 2. Coronary artery disease involving georgetown coronary artery of georgetown heart without angina pectoris (CMS/HCC) isosorbide mononitrate [...] He is also considering neck injections, pending structural iron erector approval to stop blood thinners for a [...] the treatment plan. documented in this encounter [facility] 07-18-2024 Evaluation + Plan note Extrac [...] Scheduled Tests Laboratory* Basic Metabolic Panel 12/12/23 [facility] 10-09-2024 NoteConsultation Note Patient: DENISE LANTIGUA [...] Daily, # 30 tab(s), Refills(s) 6, [id number], 175, cm, 09/29/23 15:16:00 EST, Height/Length Dosing, 73.7, kg, 09/29/23 15:16:00 EST, Weight Dosing Ranexa 500 mg Tab-ER: 500 mg = 1 tab(s), Oral, BID, # 60 tab(s), Refills(s) 3, [id number], 175, cm, 09/29/23 15:16:00 EST, Height/Length Dosing, 73.7, kg, 09/29/23 15:16:00 EST, Weight Dosing amitriptyline 25 mg Tab: 25 mg = 1 tab(s), Oral, Once a day (at bedtime), # 30 tab(s), Refills(s) 1, Pharmacy: [id number], 175.3, cm, 07/18/24 11:06:00 EDT, Height/Length Dosing, 75.9, kg, 07/18/24 11:06:00 EDT, Weight Dosing aspirin 81 mg Oral EC Tab: 81 mg = 1 tab(s), Oral, Daily, # 30 tab(s), Refills(s) 0, [id number], 175, cm, 09/29/23 15:16:00 EST, Height/Length Dosing, 73.7, kg, 09/29/23 15:16:00 EST, Weight Dosing atorvastatin 80 mg Tab: 80 mg = 1 tab(s), Oral, Daily, # 30 tab(s), Refills(s) 6, [id number], 175, cm, 09/29/23 15:16:00 EST, Height/Length Dosing, 73.7, kg, 09/29/23 15:16:00 EST, Weight Dosing carvedilol 6.25 mg Tab: 6.25 mg = 1 tab(s), Oral, BID, # 60 tab(s), Refills(s) 6, [id number], 175, cm, 09/29/23 15:16:00 EST, Height/Length Dosing, 73.7, kg, 09/29/23 15:16:00 EST, Weight Dosing clopidogrel 75 mg Tab: 75 mg = 1 tab(s), Oral, Daily, # 30 tab(s), Refills(s) 3, Pharmacy: [facility], 175, cm, 12/09/23 1:00:00 EST, Height/Length Dosing, 75.7, kg, 12/09/23 1:00:00 EST, Weight Dosing cyclobenzaprine 10 mg Tab: See Instructions, 1 tab(s) Oral, # 30 tab(s), Refills(s) 0, Pharmacy: [id number], 175, cm, 09/29/23 15:16:00 EST, Height/Length Dosing, 73.7, kg, 09/29/23 15:16:00 EST, Weight Dosing isosorbide mononitrate 30 mg ER Tab: 30 mg = 1 tab(s), Oral, qAM, # 30 tab(s), Refills(s) 3, Pharmacy: [id number], 175, cm, 09/29/23 15:16:00 EST, Height/Length Dosing, 73.7, kg, 09/29/23 15:16:00 EST, Weight Dosing losartan 25 mg Tab: 25 mg = 1 tab(s), Oral, BID, # 60 tab(s), Refills(s) 0, Pharmacy: [facility] #[id number], 175, cm, 12/09/23 1:00:00 EST, Height/Length Dosing, 75.7, kg, 12/09/23 1:00:00 EST, Weight Dosing work excuse: work excuse, No work until follow-up with structural iron erector in approximately 2 weeks., 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 CAD in georgetown artery / SNOMED CT 23596894 / Confirmed Hypertensive emergency / SNOMED CT 0779612963 / Confirmed Resolved: At risk for falls / SNOMED CT 268719009 Problem added when Risk for Falls Careplan was initiated. Resolved due to patient discharge. Resolved: Hypertension / SNOMED CT 92755488 Resolved: Stent / SNOMED CT 020043552 Resolved: Myocardial infarction / SNOMED CT 35390339 Resolved: Hyperlipidemia / SNOMED CT 83905280 Resolved: CHF - Congestive heart failure / SNOMED CT 005969611 Objective Vital Signs 07/18/2024 10:46 EDT Peripheral Pulse Rate 70 bpm Respiratory Rate 20 br/min Systolic Blood Pressure 149 mmHg HI Diastolic Blood Pressure 100 mmHg HI Mean (more content not included)...[facility] Center[facility] on above: Result Comment: Electronically Signed By: Regina Amador PA-C\.br\Date and Time Signed: 07/18/24 11:25 [id number] Telephone encounter Note* Telephone Encounter - Mable Strickland NP - 06/28/2024 3:33 PM EDT [facility]ing [facility] flex[facility]il [id number] Miscellaneous Notes* Telephone Encounter - Mable Strickland NP - 06/28/2024 3:33 PM EDT Requesting refill of flexeril documented in this encounterSaint [facility]'s [id number] NoteCardiology Clinic Note Chief Complaint: Follow up, [...] artery disease, Hyperlipidemia, Hypertension, and Myocardial infarction ([facility]). Surgical History He has a past surgical [...] Primary hypertension 4. Coronary artery disease involving georgetown coronary artery of georgetown heart, unspecified whether angina present 5. Tobacco abuse 6. Abnormal stress test Continue Aspirin, Plavix, Atorvastatin, and coreg for CAD Continue Coreg for HTN Continue Atorvastati (more content not included)...[facility]08-15-2024 NotePatient: Denise Lantigua Procedure Information Date/Time: 05/24/24 1030 Procedure: Coronary angiography (Left) Location: [facility] LDR RN 3 / [facility] (Cath) Providers: Isadora Townsend MD [...] products. Plan discussed with attending. Additional Equipment [facility]-01-2024 Note Consultation Note Patient is presenting with [...] call with any questions or concerns that arise.[facility] CenterComment on above:Result Comment: Electronically Signed By: Ezequiel Vogel DO\Date and Time Signed: 05/10/24 14:19 [id number] Evaluation + Plan noteExtracted from: Title:chronic pain [...] Date:07/11/2024 12:45:00 PM Scheduled Provider:Ezequiel Vogel DO Location[facility] Appointment Type:Pain Management - Follow Up (FT) Future Scheduled Tests Laboratory* Basic Metabolic Panel 12/12/23 [facility] 07-26-2024 NoteCardiology Clinic Note Chief Complaint: [...] Primary hypertension 4. Coronary artery disease involving georgetown coronary artery of georgetown heart, unspecified whether angina present 5. Tobacco [...] arrythmia requiring defibrillation, need (more content not included)...[facility]06-28-2024 NoteCardiology Clinic Note Chief Complaint: New Patient, history of CAD s/p PCI HPI: Denise Lantigua is a 44 y.o. male who has a past medical history of Asthma, Coronary artery disease, Hyperlipidemia, Hypertension, and Myocardial infarction ([facility]/HCC). that is referred to Cardiology clinic to [...] artery disease, Hyperlipidemia, Hypertension, and Myocardial infarction ([facility]). Surgical History He has a past surgical [...] y.o. male with Coronary artery disease involving georgetown coronary artery of georgetown heart, unspecified whether angina present Primary hypertension [...] understanding and is agre (more content not included)...[facility]03-04-2024 Evaluation + Plan note Future Scheduled Tests Laboratory* Basic Metabolic Panel 12/12/23 [facility]03-01-2024 Hospital Discharge instructions Patient Education 12/09/2023 13:46:35 Hypertension, Adult, Vkya-hc-Pojq Hypertension, Adult Hypertension is another name for [...] doctor. Keep all follow-up visits. Medicines Take xeeh-vnh-woqmitn and prescription medicines only as told by [...] provider. Document Revised: 07/15/2022 Document Reviewed: 07/15/2022 [employer] Patient Education 2022 [employer]. Follow Up Care 12/09/2023 00:53:41 With:Rebekah RODNEY, Denise Parada. Address: [address] [place] [address] [place] [address] Business (1) When:1 to 2 weeks Comments:Call for followup appointmentCall physician if symptoms worsen With:KATIE SALGUERO Address: [address] [place] [address] [address], [address] [address] Business (1) When:12/14/2023 10:30:00 [facility]03-01-2024 NoteAdmission and Discharge Information Admitting Physician - Dora RHODES DO Consulting Physician - [facility] Cardio, XXXX ZACH RODNEY, Frank Westbrook Admitting Diagnoses: Discharge Order Date Discharge Patient - Ordered -- 12/09/23 13:52:00 EST Discharge Diagnoses 1. Chest pain, 12/09/2023 2. CAD in georgetown artery, 12/09/2023 3. Hypertensive emergency, 12/09/2023 4. [...] EST [address] [place] [address]- Business (1) Additional Instructions: Rebekah RODNEY, Denise Valdez Within 1 to 2 weeks [address] [place] [address]- Business (1) Additional Instructions: Call for followup appointment Call physician if symptoms worsen Patient Education Hypertension, Adult, Rpbn-jm-DrztTuqmppCrystal Clinic Orthopedic CenterComment on above: Result Comment: Electronically Signed By: Durga Thompson DO\.br\Date and Time Signed: 12/09/23 14:01 [id number] Evaluation + Plan noteExtracted from: Title:Discharge Note [...] AM EST [address], [address] [place] [address]- Business (1) Additional Instructions: Rebekah RODNEY, Denise [address]dez Within 1 to 2 weeks [address] [place] [address]- Business (1) Additional Instructions: Call for followup appointment Call physician if symptoms worsen Hypertension, Adult, Sezw-mt-Imwp Extracted from: Title:APSO Note Author:Bela DOMINGUEZ student, [...] time given negative troponin 2. CAD in georgetown artery (I25.10: Atherosclerotic heart disease of georgetown coronary artery without angina pectoris) hx of SD in 08/2023 ASA, brilinta, statin 3. Hypertensive emergency (I16.1: Hypertensive emergency) 2/2 to above Losartan coreg imdur Hydralazine prn 4. Smoker (F17.200: Nicotine dependence, unspecified, uncomplicated) Nicotine patch prn Educate on smoking cessation 5. Chronic back pain (M54.9: Dorsalgia, unspecified) Gabapentin Oxycodone 6. 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 elevated Cr [...] up with Dr. Putnam. 2. CAD in georgetown artery (I25.10: Atherosclerotic heart disease of georgetown coronary artery without angina pectoris) 3. Hypertensive emergency (I16.1: Hypertensive emergency) 4. Smoker (F17.200: Nicotine dependence, unspecified, uncomplicated) 5. Chronic back pain (M54.9: Dorsalgia, unspecified) 6. On deep vein thrombosis (DVT) prophylaxis (Z79.899: Other alf (current) drug therapy) Other chronic pain (G89.29: [...] doses have been reconciled. 2. CAD in georgetown artery (I25.10: Atherosclerotic heart disease of georgetown coronary artery without angina pectoris) See #1 3. Hypertensive emergency (I16.1: Hypertensive emergency) See #1 4. Smoker (F17.200: Nicotine dependence, unspecified, uncomplicated) Nicotine patch as needed. Encourage cessation. 5. Chronic back pain (M54.9: Dorsalgia, unspecified) Will continue patient's gabapentin and oxycodone. 6. 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 Kiser Transthoracic 12/09/2023 09:13 EST [id number] Frank SERRANO MD Complete CPT code [id number] Reason for Exam (Echo Transthoracic Complete) Chest pain Report [facility] [address] [place] [address] Adult Echocardiogram Report Name: DENISE LANTIGUA Study Date: 12/09/2023 08:32 AM BP: 142/101 mmHg Patient Location: [address] [place] [address] HR: 66 : 1980 Gender: Male Height: 68.5 in Age: 43 yrs Ethnicity: T Weight: 163 lb Reason For Study: Chest pain BSA: 1.9 m2 History: CAD, SD, PCI, HTN, Smoker Ordering Physician: Frank SERRANO Performed By: Sarah Engel [facility] Interpretation Summary Ejection Fraction = 60-65%. [...] Frank SERRANO MD Transcribed by: BASSAM Technologist: [facility]03-01-2024 Note Chief Complaint Pt. reports [...] 01:05:00) Lymph Auto: 28.6 % (12/09/23 01:05:00) [place] Auto: 5.5 % (12/09/23 01:05:00) Eos Auto: 5.8 % (12/09/23 01:05:00) Basophil Auto: 1 % (12/09/23 01:05:00) Neutro Absolute: 6.3 E9/L (12/09/23 01:05:00) Lymph Absolute: 3.1 E9/L (12/09/23:05:00) [place] Absolute: 0.6 E9/L (12/09/23:05:00) Eos Absolute: 0.6 [...] doses have been reconciled. 2. CAD in georgetown artery (I25.10: Atherosclerotic heart disease of georgetown coronary artery without angina pectoris) See #1 3. Hypertensive emergency (I16.1: Hypertensive emergency) See #1 4. Smoker (F17.200: Nicotine dependence, unspecified, uncomplicated) Nicotine patch as needed. Encourage cessation. 5. Chronic back pain (M54.9: Dorsalgia, unspecified) Will continue patient's gabapentin and oxycodone. 6. 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 Edited and approved by Dr. Shaquille Remy MD. [facility] Other 02-12-2024 Evaluation note* Encounter Date Diagnosis Assessment Notes Treatment Notes Treatment Clinical Notes Nov, Chronic, continuous use of opioids (ICD-10 - F11.90) [facility] Other 01-11-2024 Evaluation note* Encounter Date Diagnosis [...] note writ ten by Gabriel Grady LPN, Cardiac Cath Lab Technologist. Edited and approved by Dr. Shaquille Remy MD. [facility] Other 01-11-2024 Evaluation note* Encounter Date Diagnosis Assessment Notes Treatment Notes Treatment Clinical Notes Oct, Chronic, continuous use of opioids (ICD-10 - F11.90) [facility] Other 12-14-2023 Evaluation note* Encounter Date Diagnosis Assessment Notes Treatment Notes Treatment Clinical Notes Sep, Chronic, continuous use of opioids (ICD-10 - F11.90) [facility] Other 12-14-2023 Evaluation note* Encounter Date Diagnosis [...] note writ ten by Lakshmi Danielson RN, Cardiac Cath Lab Technologist. Edited and approved by Dr. Shaquille Remy MD. [facility] Other 11-22-2023 Evaluation + Plan noteExtracted from: [...] 09/29/2023 02:45 PM EST [address] [place], [place] Additional Instructions: KATIE SALGUERO 09/06/2023 02:30 PM EST [address] [address]- Business (1) Additional Instructions: Cardiac Rehabilitation Acute [...] on telemetry for another 24 hours. Ordered: [facility] Care/Day High 50 Minutes [id number] 2. Tobacco abuse (Z72.0: Tobacco use) Educate [...] Ordered: Initial Hospital Care/Day High 75 Minutes [id number] 2. Tobacco abuse (Z72.0: Tobacco use) Educate [...] Scheduled Provider:Rebekah RODNEY, Denise Valdez Location[facility] Appointment Type:Cardiology Inpatient Follow Up (FT) [facility]11-22-2023 Hospital Discharge instructions Patient Education 08/31/2023 [...] challenges. Follow these instructions at home: Take ifvr-mzx-zseimmh and prescription medicines only as told by [...] provider. Document Revised: 01/26/2022 Document Reviewed: 01/26/2022 [employer] Patient Education 2022 [employer]. 08/31/2023 08:16:56 Acute Coronary Syndrome Acute Coronary [...] Follow these instructions at home: Medicines Take dyky-xfw-dvnobtz and prescription medicines only as told by [...] provider. Document Revised: 03/18/2022 Document Reviewed: 03/18/2022 [employer] Patient Education 2022 [employer]. Follow Up Care 08/29/2023 16:25:37 With:Rebekah RODNEY, Denise Valdez Address: [address] [place] [address] When:09/29/2023 14:45:00 With:KATIE SALGUERO Address: [address] [place], [place] [address]J[place] [address] [address] [facility] (1) When:09/06/2023 14:30:00 [facility]11-22-2023 NoteAdmission and Discharge Information Admit Date/Time:08/29/2023 [...] was called and patient was taken to [facility]. In [facility] patient found to have occluded LAD and [...] excuse from work and to follow-up with structural iron erector. Patient stable at discharge. Medication changes Discontinued [...] and follow-up as well as communication with advertising sales consultant, nursing, case management. Physical Exam Vitals [...] 60.3 % Lymph Auto - 30.8 % [place] Auto - 6.9 % Eos Auto - 0.9 % Basophil Auto - 1.1 % Neutro Absolute - 6.2 E9/L Lymph Absolute - 3.2 E9/L [place] Absolute - 0.7 E9/L Eos Absolute - [...] eGFR (08/31/2023) eGFR - (more content not included)...[facility] CenterComment on above:Result Comment: Electronically Signed By: Jay SHAW, Durga Villagomez\.br\Date and Time Signed: 08/31/23 09:58 [id number] NoteEchocardiology Procedure Exam Date/Time Accession # Ordering Echo Transthoracic 08/30/2023 10:50 EST [id number] Rebekah RODNEY, Denise Valdez CPT code [id number] Reason for Exam (Echo Transthoracic Complete) CAD Coronary artery disease Report [facility] [address] [place] [address] Adult Echocardiogram Report Name: DENISE LANTIGUA Study Date: 08/30/2023 10:18 AM BP: 141/ mmHg Patient Location: [address] [place] [address] HR: 75 : 1980 Gender: Male Height: 69 in Age: 43 yrs Ethnicity: [facility] Weight: 170 lb Reason For Study: [...] Frank SERRANO MD Transcribed by: BASSAM Technologist: [facility]11-20-2023 Note Procedure [facility] poss PCI via right radial for anterior [...] Start date08/29/23 18:00:00 EST ECG [facility]:Result Comment: Electronically Signed By: Rebekah RODNEY, Denise Valdez\.br\Date and Time Signed: 08/29/23 20:54 [id number] NoteChief Complaint STEMI Reason for Consultation STEMI [...] He came home from work and called [facility] which brought him to the hospital. [facility] was activated for STEMI alert from the [...] pack)/day in last 30 days Tobacco Use:., 03/09/2022[facility] CenterComment on above:Result Comment: Electronically Signed By: Rebekah RODNEY, Denise Valdez\.br\Date and Time Signed: 08/29/23 20:48 [id number] NoteChief Complaint STEMI History of Present Illness [...] was called and patient was taken to [facility]. In [facility] patient found to have occluded LAD and [...] denies alcohol use. 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 Review of [...] 16:21:00) Lymph Auto: 32.5 % (08/29/23 16:21:00) Cam[place] Auto: 4.6 % (08/29/23 16:21:00) Eos Auto: 0.9 % (08/29/23 16:21:00) Basophil Auto: 0.9 % (08/29/23 16:21:00) Neutro Absolute: 7.6 E9/L High (08/29/23 16:21:00) Lymph Absolute: 4.1 E9/L High (08/29/23 16::00) [place] Absolute: 0.6 E9/L (08/29/23 16:21:00) Eos Absolute: [...] Ordered: Initial Hospital Care/Day High 75 Minutes 35204 2. Tobacco abuse (Z72.0: Tobacco use) Educate [...] back pain (M54.9: Do (more content not included)...[facility] CenterComment on above:Result Comment: Electronically Signed By: Jay SHAW, Durga Villagomez\.br\Date and Time Signed: 08/29/23 18:51 [id number] Evaluation note* Encounter Date Diagnosis Assessment Notes [...] note writ ten by Néstor Coyne MA, Cardiac Cath Lab Technologist. Edited and approved by Dr. Shaquille Remy MD. [facility] Other 11-16-2023 Evaluation note* Encounter Date Diagnosis Assessment Notes Treatment Notes Treatment Clinical Notes Aug, Chronic, continuous use of opioids (ICD-10 - F11.90) [facility] Other 10-19-2023 Evaluation note* Encounter Date Diagnosis [...] note writ ten by Néstor Coyne MA, Cardiac Cath Lab Technologist. Edited and approved by Dr. Shaquille Remy MD. [facility] Other 10-19-2023 Evaluation note* Encounter Date Diagnosis Assessment Notes Treatment Notes Treatment Clinical Notes Jul, Chronic, continuous use of opioids (ICD-10 - F11.90) [facility] Other 09-21-2023 Evaluation note* Encounter Date Diagnosis [...] note writ ten by Néstor Coyne MA, Cardiac Cath Lab Technologist. Edited and approved by Dr. Shaquille Remy MD. [facility] Other 09-21-2023 Evaluation note* Encounter Date Diagnosis Assessment Notes Treatment Notes Treatment Clinical Notes Jun, Chronic, continuous use of opioids (ICD-10 - F11.90) [facility] Other 08-22-2023 Evaluation note* Encounter Date Diagnosis Assessment Notes Treatment Notes Treatment Clinical Notes May, Chronic, continuous use of opioids (ICD-10 - F11.90) [facility] Other 08-22-2023 Evaluation note* Encounter Date Diagnosis [...] note writ ten by Néstor Coyne MA, Cardiac Cath Lab Technologist. Edited and approved by Dr. Shaquille Remy MD. [facility] Other 07-03-2023 Evaluation note* Encounter Date Diagnosis Assessment Notes Treatment Notes Treatment Clinical Notes Apr, Chronic, continuous use of opioids (ICD-10 - F11.90) [facility] Other 06-27-2023 Evaluation note* Encounter Date Diagnosis Assessment Notes Treatment Notes Treatment Clinical Notes Mar, Chronic, continuous use of opioids (ICD-10 - F11.90) [facility] Other 06-22-2023 Evaluation note* Encounter Date Diagnosis [...] note writ ten by Gabriel Grady LPN, Cardiac Cath Lab Technologist. Edited and approved by Dr. Shaquille Remy MD. [facility] Other 06-22-2023 Evaluation note* Encounter Date Diagnosis Assessment Notes Treatment Notes Treatment Clinical Notes Mar, Chronic, continuous use of opioids (ICD-10 - F11.90) [facility] Other 04-27-2023 Evaluation note* Encounter Date Diagnosis Assessment Notes Treatment Notes Treatment Clinical Notes Jan, Chronic, continuous use of opioids (ICD-10 - F11.90) [facility] Other 04-18-2023 NotePROCEDURE DETAILS Preoperative Diagnosis: Postlaminectomy syndrome, lumbar region, M96.1 Postoperative Diagnosis: Postlaminectomy syndrome, lumbar region, M96.1 Surgeon: Damian Power Resident/Fellow/Other Blackjack Dealer: Josh Fried Procedure: 1. REVISION OF SPINAL CORD STIMULATOR ELECTRODE Anesthesia: No anesthesiologist associated with this case Estimated Blood Loss: Less than 5 mL Findings: Electrode was in the soft tissue and the suture anchors had pulled through the bone Specimens(s) Collected: yes, Wound culture Implants: Reimplanted spinal electrode, Verified Identity Pass Operative Report: The patient is approximately 6 [...] Completion Last Updated: 25-Jan-2023 15:54 by Damian Power)[facility] [place] NoteHistory & Physical Reviewed: I have [...] Completion Last Updated: 25-Jan-2023 13:21 by Damian Power)[facility] 01-04-2023 Evaluation note* Encounter Date Diagnosis Assessment [...] note writ ten by Gabriel Grady LPN, Cardiac Cath Lab Technologist. Edited and approved by Dr. Shaquille Remy MD. [facility] Other 03-28-2023 Evaluation note* Encounter Date Diagnosis Assessment Notes Treatment Notes Treatment Clinical Notes Dec, Chronic, continuous use of opioids (ICD-10 - F11.90) Dec, Other spondylosis with radiculopathy, lumbar region (ICD-10 - M47.26) [facility] Other 03-07-2023 NotePROCEDURE DETAILS Preoperative Diagnosis: Postlaminectomy syndrome of lumbar region, M96.1 Postoperative Diagnosis: Postlaminectomy syndrome of lumbar region, M96.1 Surgeon: Damian Power Resident/Fellow/Other Blackjack Dealer: Luzma Spence Procedure: 1. THORACIC LAMINECTOMY T8 2. INSERTION OF SPINAL CORD STIMULATOR- T8 Anesthesia: Shaquille Giordano Estimated Blood Loss: Less than 5 mL Findings: None IV Fluids: 2 L Implants: [place] [employer] spinal cord stimulator and pulse generator [...] process was subperiosteally exposed and then a Marcy was placed on it. Fluorographic imaging was [...] Completion Last Updated: 14-Dec-2022 10:12 by Damian Power)[facility] [place]14-2022 NoteHistory & Physical Reviewed: I have [...] Completion Last Updated: 14-Dec-2022 10:00 by Damian Power)[facility] 12-08-2022 Evaluation note* Encounter Date Diagnosis Assessment Notes Treatment Notes Treatment Clinical Notes Dec, Chronic, continuous use of opioids (ICD-10 - F11.90) [facility] Other 02-28-2023 Evaluation note* Encounter Date Diagnosis [...] note writ ten by Néstor Coyne MA, Cardiac Cath Lab Technologist. Edited and approved by Dr. Shaquille Remy MD. [facility] Other 02-28-2023 Evaluation note* Encounter Date Diagnosis Assessment Notes Treatment Notes Treatment Clinical Notes Nov, Chronic, continuous use of opioids (ICD-10 - F11.90) [facility] Other 01-31-2023 Evaluation note* Encounter Date Diagnosis [...] note writ ten by Gabriel Grady LPN, Cardiac Cath Lab Technologist. Edited and approved by Dr. Shaquille Remy MD. [facility] Other 01-31-2023 Evaluation note* Encounter Date Diagnosis Assessment Notes Treatment Notes Treatment Clinical Notes Oct, Chronic, continuous use of opioids (ICD-10 - F11.90) [facility] Other 01-10-2023 Evaluation note* Encounter Date Diagnosis Assessment Notes Treatment Notes Treatment Clinical Notes Oct, Lumbar radiculopathy (ICD-10 - M54.16) This is a gentleman who was operated on by me in 2016. Apparently he was not happy with the result went to [place] and had an operation done at the clinic which also did not go well and then had a fusion in [place] that relieved none of the symptoms. He [...] of lumbar spinal fusion (ICD-10 - Z98.1) [facility] Other 12-29-2022 Evaluation note* Encounter Date Diagnosis Assessment Notes Treatment Notes Treatment Clinical Notes Sep, Chronic, continuous use of opioids (ICD-10 - F11.90) Sep, Other spondylosis with radiculopathy, lumbar region (ICD-10 - M47.26) [facility] Other 12-01-2022 Evaluation note* Encounter Date Diagnosis Assessment Notes Treatment Notes Treatment Clinical Notes Sep, Chronic, continuous use of opioids (ICD-10 - F11.90) [facility] Other 12-01-2022 Evaluation note* Encounter Date Diagnosis [...] note writ ten by Gabriel Grady LPN, Cardiac Cath Lab Technologist. Edited and approved by Dr. Shaquille Remy MD. [facility] Other 11-11-2022 Evaluation note* Encounter Date Diagnosis [...] recommend we proceed with SCS implant with Verified Identity Pass as previously discussed. I will refer the [...] note writ ten by Néstor Coyne MA, Cardiac Cath Lab Technologist. Edited and approved by Dr. Shaquille Remy MD. [facility] Other 11-08-2022 [facility] Evaluation note* Encounter Date Diagnosis Assessment [...] note writ ten by Néstor Coyne MA, Cardiac Cath Lab Technologist. Edited and approved by Dr. Shaquille Remy MD. [facility] Other 10-27-2022 Evaluation note* Encounter Date Diagnosis Assessment Notes Treatment Notes Treatment Clinical Notes Jul, Chronic, continuous use of opioids (ICD-10 - F11.90) [facility] Other 09-29-2022 Evaluation note* Encounter Date Diagnosis [...] note writ ten by Gabriel Grady LPN, Cardiac Cath Lab Technologist. Edited and approved by Dr. Shaquille Remy MD. [facility] Other 09-01-2022 Evaluation note* Encounter Date Diagnosis [...] note writ ten by Gabriel Grady LPN, Cardiac Cath Lab Technologist. Edited and approved by Dr. Shaquille Remy MD. [facility] Other 08-01-2022 Evaluation note* Encounter Date Diagnosis [...] medications were refilled today. Saliva performed through [facility] lab today, will await confirmatory results. May, Other chronic pain (ICD-10 - G89.29) May, Other Above note writ ten by Gabriel Grady LPN, Cardiac Cath Lab Technologist. Edited and approved by Dr. Shaquille Remy MD. [facility] Other 06-23-2022 Evaluation note* Encounter Date Diagnosis [...] note writ ten by Néstor Coyne MA, Cardiac Cath Lab Technologist. Edited and approved by Dr. Shaquille Remy MD. [facility] Other 06-02-2022 Evaluation note* Encounter Date Diagnosis [...] note writ ten by Gabriel Grady LPN, Cardiac Cath Lab Technologist. Edited and approved by Dr. Shaquille Remy MD. [facility] Other 05-05-2022 Evaluation note* Encounter Date Diagnosis [...] note writ ten by Gabriel Grady LPN, Cardiac Cath Lab Technologist. Edited and approved by Dr. Shaquille Remy MD. [facility] Other 04-08-2022 Evaluation note* Encounter Date Diagnosis Assessment Notes Treatment Notes Treatment Clinical Notes Jan, Other low back pain (ICD-10 - M54.59) [facility] Other 04-05-2022 Evaluation note* Encounter Date Diagnosis [...] note writ ten by Néstor Coyne CMA, Cardiac Cath Lab Technologist. Edited and approved by Dr. Shaquille Remy MD. [facility] Other 03-08-2022 Evaluation note* Encounter Date Diagnosis [...] Percocet was refilled today. Saliva performed through [facility] lab today, will await confirmatory results. Dec, Other chronic pain (ICD-10 - G89.29) Above note written by Gabriel Grady LPN, Cardiac Cath Lab Technologist. Edited and approved by Dr. Shaquille Remy MD. [facility] Other 02-08-2022 Evaluation note* Encounter Date Diagnosis [...] Above note written by Néstor Coyne CMA, Cardiac Cath Lab Technologist. Edited and approved by Dr. Shaquille Remy MD. [facility] Other 01-06-2022 Evaluation note* Encounter Date Diagnosis [...] Above note written by Néstor Coyne CMA, Cardiac Cath Lab Technologist. Edited and approved by Dr. Shaquille Remy MD. [facility] Other 12-06-2021 Evaluation note* Encounter Date Diagnosis [...] Above note written by Gabriel Grady LPN, Cardiac Cath Lab Technologist. Edited and approved by Dr. Shaquille Remy MD. [facility] Other 10-07-2021 Evaluation note* Encounter Date Diagnosis [...] note writ ten by Lakshmi Danielson CMA, Cardiac Cath Lab Technologist. Edited and approved by Dr. Shaquille Remy MD. [facility] Other 09-27-2021 Note [id number]09-21-2021 [id number] 06-29-2021 [facility] SURGERY Clinical Discharge Summary PERSON INFORMATION Name DENISE LANTIGUA Age 41 Years 1980 Sex MALE Language Guinean PCP KATIE SALGUERO Marital Status Single Med Service Ambulatory Surgery Acct# Arrival 06/29/2021 10:36:00 Visit Reason SURGERY - CYSTOSCOPY BILATERAL URETEROSCOPY HOLMIUM LASER LITHO, BILATERAL STENT PLACEMENT Acuity LOS 018 09:03 Address: [address] [place] [id number] Comment: PROVIDER INFORMATION VITALS INFORMATION Vital Sign Triage Latest Temp Oral Temp Temporal Temp Intravascular Temp Axillary Temp Rectal 02 Sat 98 % 96 % Respiratory Rate Peripheral Pulse Rate Apical Heart Rate Blood Pressure / 97 mmHg / 102 mmHg Comment: MEDICAL INFORMATION Allergy Info: No known allergies Prescriptions Given: acetaminophen-hydrocodone (Brighton 5 mg-325 mg oral tablet) 1 tab(s) [...] Medication List: New Medications Printed Prescriptions acetaminophen-hydrocodone (Brighton 5 mg-325 mg oral tablet) 1 tab(s) [...] 8 hours. New Medications Printed Prescriptions acetaminophen-hydrocodone (Brighton 5 mg-325 mg oral tablet) 1 tab(s) [...] 8 hours. New Medications Printed Prescriptions acetaminophen-hydrocodone (Brighton 5 mg-325 mg oral tablet) 1 tab(s) [...] hours as needed fo (more content not included)...[facility] [id number] History general Narrative - Reported* Type Description [...] Decompression surger y of lumbar spine @ [facility] 06/14/18 Hospitalization History FR- Pneumonia 11/2015 [facility] Other 02-16-2017 History general Narrative - Reported* [...] Decompression surger y of lumbar spine @ [facility] 06/14/18 Hospitalization History FR- Pneumonia 11/2015 [facility] Other Evaluation + Plan note Future Appointments Appointment Date:08/12/2022 03:30:00 PM Scheduled Provider:[facility]FT[facility] Future Appointments Appointment Date:11/03/2023 10:00:00 AM Scheduled Provider:Trey Carranza MD Location:[facility] Appointment Type: Open Appointment Date:11/11/2023 11:45:00 AM Scheduled Provider:Denise Welch MD [facility] [place] Appointment Type:Cardiology Follow Up (FT) [facility] HospitalEvaluation [email or web address] Other evaluation noteNo [email or web address] Other evaluation noteNo assessment information available [facility] Work Phone: evalunatfu note* Diagnosis Onset Date Resolution Status Chronic pain acute Chronic, continuous use of opioids acute Failed back surgical syndrome acute Lumbar radiculopathy acute Chronic pain acute Chronic, continuous use of opioids acute Failed back surgical syndrome acute Lumbar radiculopathy acute [facility] Work Phone: Evaluation note* Diagnosis Onset Date Resolution Status Chronic pain acute Chronic, continuous use of opioids acute Failed back surgical syndrome acute Lumbar radiculopathy acute Chronic pain acute Chronic, continuous use of opioids acute Failed back surgical syndrome acute Lumbar radiculopathy acute Chronic pain acute Chronic, continuous use of opioids acute Failed back surgical syndrome acute Lumbar radiculopathy acute [facility] Work Phone: Evaluation note* Diagnosis Onset Date [...] syndrome acute Lumbosacral spondylosis without myelopathy acute [facility] Work Phone: Evaluation note* Diagnosis Onset Date [...] syndrome acute Lumbosacral spondylosis without myelopathy acute [facility] Work Phone: Evaluation note* Diagnosis Failed back surgical syndrome- Primary Coronary artery disease involving georgetown coronary artery of [place] heart without angina pectoris (CMS/HCC) Colon cancer screening Special screening for malignant neoplasms, colon Chronic pain syndrome Recurrent major depressive disorder, in partial remission (HCC) (CMS/HCC) Primary hypertension (CMS/HCC) Unspecified essential hypertension documented [facility] encounter [facility] Diagnosis Chronic pain syndrome- Primary documented in this encounter [facility] general N[facility]ative - [facility] Other Hospital course Narrative No data available for this section [facility] No data available for this section [facility] Discharge instructionsAmbulatory Orders* Referral to Pain Management Time Frame: 03/19/24, Location: [facility] Work Phone: Hospital Discharge instructionsAmbulatory Orders* Referral to Pain Management Time Frame: 04/18/24, Location: None [facility] Work Phone: Progress note No data available for this section [facility] Summary Purpose Family History No Family History Records Found Relationship Condition Age at Onset Recorded Date/T malina Not Specified Diabetes mellitus Unknown Hypertension Unknown Cerebrovascular accident (CVA) Unknown Relationship Condition Age at Onset Recorded Date/T malian Not Specified Diabetes mellitus Unknown Hypertension Unknown [...] 2024 11:24am Procedure Findings Note HNO ID: [id number] Author: Rashmi Littlejohn) Luz Maria Service: Neurosurgery Author Type: Physician Type: Brief Op Note Filed: 06/14/2018 2:55 PM Note Text: BRIEF OPERATIVE / PROCEDURE NOTE LOG ID: [id number] SURGERY/PROCEDURE DATE: 06/14/2018 INCISION/PROCEDURE START TIME: 1:16 PM INCISION CLOSE/PROCEDURE END TIME: 02.40 PM SURGEON(S)/PROCEDURALIST(S) AND SYSTEM DISPATCHER(S): Surgeon(s) and Role: * Laurel Littlejohn) [facility] - Primary Physician Blackjack Dealer: Srinivas Franks SURGERY/PROCEDURE(S): Revision left side L5-S1 [...] th radiculopathy, lumbar region (M47.26) Referral Organization [facility] Referring Provider First Name Shaquille Referring Provider Last Name Jonel Referring Provider Specialty Pain Medici ne Referred Organization [facility] urosurgery Referred Provider Triny Guy [address],[address] Referred Provider Specialty Neurological Surgery Referral Priority Routine General Notes Carly John 12:06:08 PM >will refer patient to Dr Guy, p2p has not been turned on yet for her at the [facility] location. I have a message sent out [...] th radiculopathy, lumbar region (M47.26) [facility] Referring Provider First Name Shaquilel Referring Provider Last Name Jonel Referring Provider Specialty Pain Medici ne Referred Organization [facility] Referred Provider Shen Abbott [place] Address [address] [place], [place],[address] Referred Provider Specialty Neuropsychia try Referral Priority [...] section and content) DATE CREATED AUTHOR 11/22/2018 [facility] DATE CREATED AUTHOR AUTHOR'S ORGANIZ ATION 11/22/2018 [facility] DATE CREATED AUTHOR AUTHOR'S ORGANIZ ATION 07/08/2021 [facility] DATE CREATED AUTHOR AUTHOR'S ORGANIZ ATION 01/04/2022 [facility] DATE CREATED AUTHOR AUTHOR'S ORGANIZ ATION 02/27/2022 [facility] dical Specialist DATE CREATED AUTHOR AUTHOR'S ORGANIZ ATION 01/01/2023 [facility] DATE CREATED AUTHOR AUTHOR'S ORGANIZ ATION 01/21/2023 [facility] DATE CREATED AUTHOR AUTHOR'S ORGANIZ ATION 01/29/2023 [facility] DATE CREATED AUTHOR AUTHOR'S ORGANIZ ATION 06/03/2023 [facility] DATE CREATED AUTHOR AUTHOR'S ORGANIZ ATION 07/20/2024 [facility] DATE CREATED AUTHOR AUTHOR'S ORGANIZ ATION 01/22/2025 [facility] dical Specialists EPIC DATE CREATED AUTHOR AUTHOR'S ORGANIZ ATION 03/09/2025 [facility] REASON FOR VISIT (unrecogniz ed section [...] April 18, 2024 End: April 18, 2024 Soc Analyst Relationship Specialty Start Date End Date Katie Salguero DO [address] [place] [address] PCP - General Internal Medicine 02/15/23 Soc Analyst Relationship Specialty Start Date End Date Katie Salguero DO [address] [place] [address] PCP - General Internal Medicine 02/15/23 Goals [...] BE BASED ON THE PRIMARY CLINICAL RECORDS. [employer] provides no warranty or guarantee of the accuracy or completeness of information in this document.
[2025-03-11 05:27] LABS: Hematocrit 40.8 % (42.0-54.0); Hemoglobin 13.8 g/dL (14.0-18.0); Mean Corpuscular HGB Conc 33.8 g/dL (29.9-35.2); Mean Corpuscular Hemoglobin 28.9 pg (25.9-34.0); Mean Corpuscular Volume 85.5 fL (80.0-94.0); Mean Platelet Volume 10.6 fL (9.5-13.5); Platelet Count 252 10^3/uL (150-450); Red Blood Count 4.77 10^6/uL (4.70-6.10); Red Cell Distribution Width 14.2 % (11.0-15.0); White Blood Count 9.2 10^3/uL (4.0-11.0)
[2025-03-11 06:02] LABS: Alanine Aminotransferase 29 U/L (16-63); Albumin Globulin Ratio 1.2; Albumin Level 3.4 g/dL (3.4-5.0); Alkaline Phosphatase 98 U/L (46-116); Anion Gap 13.6; Aspartate Amino Transferase 16 U/L (15-37); BUN Creatinine Ratio 9.8; Bilirubin Total 0.6 mg/dL (0.2-1.0); Calcium 8.8 mg/dL (8.5-10.1); Chloride 105 mmol/L (98-107); Estimated GFR (African America >60 (>=60 mL/min/1.73m^2); Estimated GFR (Non-African Ame >60 (>=60 mL/min/1.73m^2); Globulin 2.9 g/dL; Glucose 147 mg/dL (74-106); Potassium 3.6 mmol/L (3.5-5.1); Sodium 143 mmol/L (136-145); Total Protein 6.3 g/dL (6.4-8.2)
--- NOTE | 2025-03-11 06:03 | P.HP_ITS ---
HPI H&P: HPI History of Present Illness Chief complaint: HYPOTENSION Narrative: Patient checks his blood pressure and took his and his blood pressure was little high took his blood pressure medication his blood pressure dropped down to a systolic of less than 80, with this findings and symptoms of lightheadedness and chest pain he presented to the emergency room. In the ER workup was negative, given small amount of fluids, patient was admitted to observation overnight, cardiac markers were negative x 3, BNP was negative, he feels much improved this morning, reviewed his medications with him, will hold off on any adjustment in dosing just taking them at different times may be of benefit, losartan at nighttime Coreg twice daily and Imdur leave the same. Patient anxious to be discharged and wanted to be discharged prior to his restarting his medications this morning. Medications see this. Follow-up with PCP and cardiology as planned Opioid HPI Opioid Management Most Recent Pain and Opioid Data: Last Pain Assessment Today, 03:00 Last ORT Total Score 0 Today, 02:24 Last ORT Risk Category Low Risk Today, 02:24 PFS PFS Medical History (Updated 03/11/25 @ 09:31 by Doug Winston MD) High cholesterol ?E78.00 - Pure hypercholesterolemia, unspecified (ICD-10) Hypertension ?I10 - Essential (primary) hypertension (ICD-10) Heart attack ?I21.9 - Acute myocardial infarction, unspecified (ICD-10) Surgical History (Updated 03/11/25 @ 02:19 by Sendy Cruz, NUBIA) Hx of heart artery stent ?Z95.5 - Presence of coronary angioplasty implant and graft (ICD-10) Previous back surgery ?Z98.890 - Other specified postprocedural states (ICD-10) Family History (Updated 03/11/25 @ 02:20 by Sendy Cruz, RN) Mother Family history of cancer Family history of diabetes mellitus Family history of hypertension Family history of stroke Other Family history of myocardial infarction Social History (Updated 03/11/25 @ 02:22 by Sendy Cruz, NUBIA) Within the past year, how often did you have a drink containing alcohol: never Within the past year, how often did you have six or more drinks on one occasion: never Score interpretation: A score less than 4 is consistent with normal alcohol consumption. Smoking status: Current every day smoker Non-prescribed substance use: denies use Previous occupational history: retired Known occupational exposures/hazards: No Highest level of school completed/degree received: high school graduate Do you want help with school or training: No Are you now , , , , never or living with a partner: In a typical week, how many times do you talk on the telephone with family, friends, or neighbors: 3 or more times per week How often do you get together with friends or relatives: 3 or more times per week How often do you attend taoism or confucianism services: 1-3 times per year Little interest or pleasure in doing things: not at all Feeling down, depressed, or hopeless: not at all Feel stressed/tense/nervous/anxious/difficulty sleeping: not at all Due to disability, difficulty making decisions: No Meds Home Medications and Allergies Home Medications ?Medication ?Instructions ?Recorded ?Confirmed ?Type aspirin 81 mg tablet,delayed 81 mg PO QDAY 09/07/23 History release atorvastatin 80 mg tablet 80 mg PO .qhs 09/07/2303/11 History carvedilol 3.125 mg tablet 3.125 mg PO Q12H 09/07/23 0 03/11/25 History cyclobenzaprine 10 mg tablet 10 mg PO Q8H PRN back francesco n 09/07/23 03/11/25 History furosemide 20 mg tablet 20 mg PO QDAY PRN edema 08/1103/11/25 History gabapentin 300 mg capsule 900 mg PO Q8H 09/07/2303/11 History clopidogrel 75 mg tablet 75 mg PO QDAY 03/10/2503/11 History isosorbide mononitrate 60 mg 60 mg PO QDAY 03/10/25 History tablet,extended release 24 hr nitroglycerin 0.4 mg sublingual 0.4 mg buccal Q5M PRN chest pain 03/10/25 03/11/25 History tablet pantoprazole 40 mg tablet,delayed 40 mg PO QDAY 03/11/25 History release ranolazine 500 mg tablet,extended 500 mg PO Q12H 03/1003/11/25 History release,12 hr losartan 50 mg tablet 50 mg PO QHS #30 tabs Rx Allergies Allergy/AdvReac Type Severity Reaction Status Date / Time No Known Drug Allergies Allergy Verified 03/10/25 21:43 Exam Constitutional Vital Signs, click to edit/add: Last Vital Signs Temp 97.6 F 03/11/25 02:41 Pulse 66 03/11/25 04:02 Resp 18 03/11/25 02:41 BP 134/89 03/11/25 02:41 Pulse Ox 92 L 03/11/25 02:41 O2 Del Method Room Air 03/11/25 02:41 Documenting provider has reviewed patient's vital signs: yes Common normals: no apparent distress Chest Common normals: inspection of chest normal and palpation of chest normal Respiratory Common normals: normal respiratory effort, no retractions and no use of accessory muscles Cardio Common normals: regular rate, regular rhythm and no murmurs GI Common normals: Normal to inspection, nondistended, normoactive bowel sounds present Extremity Common normals: normal to inspection, full ROM and no clubbing, cyanosis or edema Neuro Common normals: oriented x3, CN's II-XII intact bilaterally and moves all extremities Results Labs Labs: Short CBC 03/10/25 03/11/25 Range/Units 22:15 04:49 WBC 12.1 H 9.2 (4.0-11.0) 10^3/uL Hgb 14.6 13.8 L (14.0-18.0) g/dL Hct 42.7 40.8 L (42.0-54.0) % Plt Count 290 252 (150-450) 10^3/uL BMP 03/10/25 22:15 Sodium 139 Potassium 3.5 Chloride 101 Carbon Dioxide 26.4 BUN 13.0 Creatinine 1.39 H Glucose 163 H Calcium 9.4 Assessment and Plan Assessment and Plan (1) Acute hypotension: (2) High cholesterol: (3) Hypertension: (4) Acute heart failure with reduced ejection fraction (HFrEF, <= 40%) and combined systolic and diastolic dysfunction: (5) Iron deficiency anemia: Plan Admission findings: Patient with a history of coronary artery disease and acute combined congestive heart failure with reduced ejection fraction on previous admission, presented with significant hypotension, medications were held given small fluid bolus and his blood pressure is improved Acute hypotension-discussed may be altering the time of day takes the medication would place the losartan at bedtime Imdur in the morning and Coreg twice daily, patient anxious for discharge to home and he wanted to be discharged prior to restarting his medications, follow-up with PCP and cardiology as previously planned 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
[2025-03-11 06:07] LABS: Troponin I High Sensitivity 8.3 pg/mL (4.0-76.1)
--- NOTE | 2025-03-11 08:31 | PC.NURSE ---
Dr. Winston wants patient to take his am meds, make sure his bp stays stable and then let him go home. Rn entered room and patient is pacing back and forth. is at bedside. Patient states he is ready to be discharged now. RN informed him that if he would take his meds now and wait an hour he could go but patient states he does not even want to wait an hour, he just wants to leave. Dr. Winston notified
--- NOTE | 2025-03-11 08:53 | CM.NOTE ---
Rounds made with Dr. Winston, pt will discharge to home today and f/u with PCP next week. Pt does have echo scheduled that was ordered by [facility] cardiology and has f/u with [facility] physical meteorologist. Pt lives at home with , pt ambulatory in room. No discharge needs identified.
--- NOTE | 2025-03-11 09:33 | P.DS_ITS ---
DS: Providers Provider Date of admission: 03/11/25 02:05 Primary care physician: Non-Staff Physician, DS: Diagnosis Discharge Diagnosis (1) Acute hypotension: (2) High cholesterol: (3) Hypertension: (4) Acute heart failure with reduced ejection fraction (HFrEF, <= 40%) and combined systolic and diastolic dysfunction: (5) Iron deficiency anemia: Plan Admission findings: Patient with a history of coronary artery disease and acute combined congestive heart failure with reduced ejection fraction on previous admission, presented with significant hypotension, medications were held given small fluid bolus and his blood pressure is improved Acute hypotension-discussed may be altering the time of day takes the medication would place the losartan at bedtime Imdur in the morning and Coreg twice daily, patient anxious for discharge to home and he wanted to be discharged prior to restarting his medications, follow-up with PCP and cardiology as previously planned 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 DS: Summary Hospital Course Hospital Course: Patient mated to observation secondary to hypotension likely secondary to combination of factors 1 of which could be the timing of day he takes his medication, he discussed options with taking the losartan at bedtime, patient anxious to be discharged to and to be discharged prior to admit taking his morning medications, follow-up with his PCP and cardiology as planned Time Spent with Patient Time attestation: Total time spent providing and/or coordinating discharge services: Quality: Stroke Symptom Onset Unknown: No Exam Constitutional Vital Signs, click to edit/add: Last Vital Signs Temp 97.6 F 03/11/25 07:52 Pulse 68 03/11/25 07:59 Resp 20 03/11/25 07:52 BP 135/86 03/11/25 07:52 Pulse Ox 94 L 03/11/25 07:52 O2 Del Method Room Air 03/11/25 07:52 Documenting provider has reviewed patient's vital signs: yes Common normals: no apparent distress Chest Common normals: inspection of chest normal and palpation of chest normal Respiratory Common normals: normal respiratory effort, no retractions and no use of accessory muscles Cardio Common normals: regular rate, regular rhythm and no murmurs GI Common normals: Normal to inspection, nondistended, normoactive bowel sounds present Extremity Common normals: normal to inspection, full ROM and no clubbing, cyanosis or edema Neuro Common normals: oriented x3, CN's II-XII intact bilaterally and moves all extremities DS: Data Data Completed and Pending Labs on day of discharge: Labs from last 24 hours 03/11/25 03/11/25 03/10/25 04:49 01:05 22:15 WBC 9.2 12.1 H RBC 4.77 5.02 Hgb 13.8 L 14.6 Hct 40.8 L 42.7 MCV 85.5 85.1 MCH 28.9 29.1 MCHC 33.8 34.2 RDW 14.2 14.2 Plt Count 252 290 MPV 10.6 10.5 Neut % (Auto) 64.4 Lymph % (Auto) 27.7 [place] % (Auto) 4.7 Eos % (Auto) 1.8 Baso % (Auto) 1.1 Neut # (Auto) 7.8 H Lymph # (Auto) 3.4 [place] # (Auto) 0.6 Eos # (Auto) 0.2 Baso # (Auto) 0.1 Abs Immat Gran (auto) 0.04 H Imm/Tot Granulo (auto) 0.3 D-Dimer 0.34 Sodium 143 139 Potassium 3.6 3.5 Chloride 105 101 Carbon Dioxide 28.0 26.4 Anion Gap 13.6 15.1 BUN 12.0 13.0 Creatinine 1.23 1.39 H Est GFR ( Amer) >60 >60 Est GFR (Non-Af Amer) >60 55 L BUN/Creatinine Ratio 9.8 9.4 Glucose 147 H 163 H Calcium 8.8 9.4 Total Bilirubin 0.6 AST 16 ALT 29 Alkaline Phosphatase 98 Troponin I High Sens 8.3 10.2 13.2 NT-Pro-B Natriuret Pep 177.0 Total Protein 6.3 L Albumin 3.4 Globulin 2.9 Albumin/Globulin Ratio 1.2 Discharge Plan Discharge Disposition: Home, Self-Care Discharge Medications: New losartan 50 mg Tablet 50 mg PO QHS Qty: 30 11RF Continued cyclobenzaprine 10 mg tablet 10 mg PO Q8H PRN (Reason: back pain) atorvastatin 80 mg tablet 80 mg PO .qhs aspirin 81 mg tablet,delayed release (DR/EC) 81 mg PO QDAY carvedilol 3.125 mg tablet 3.125 mg PO Q12H gabapentin 300 mg capsule 900 mg PO Q8H furosemide 20 mg tablet 20 mg PO QDAY PRN (Reason: edema) clopidogrel 75 mg tablet 75 mg PO QDAY isosorbide mononitrate 60 mg tablet extended release 24 hr 60 mg PO QDAY nitroglycerin 0.4 mg tablet, sublingual 0.4 mg buccal Q5M PRN (Reason: chest pain) pantoprazole 40 mg tablet,delayed release (DR/EC) 40 mg PO QDAY ranolazine 500 mg tablet extended release 12 hr 500 mg PO Q12H Discontinued losartan 50 mg tablet 50 mg PO QDAY Activity: resume usual activities as tolerated Diet: advance to your usual diet Print Language: [place] Citizen Patient Instructions: Hypotension (DC) Forms: Portal Instructions Follow Up Appointments: March 18 @ @ 10am with Dr. Salguero [phone] Discharge Date/Time: 03/11/25 08:55
--- NOTE | 2025-03-12 13:17 | CM.DCFOLLOWU ---
1st attempt 03/12/25, no answer
--- NOTE | 2025-03-13 10:47 | CM.DCFOLLOWU ---
Person spoke with:patient How are you feeling?well How is your pain?none Did you understand your discharge instructions?yes Do you have any questions about your discharge instructions?no Were you given any prescriptions at discharge? yes Were you able to get your prescriptions filled?yes Do you understand how to take your medications as ordered?yes Do you have any questions about your follow up appointment and do you plan to keep your follow up appointment? no questions, yes keeping follow up Is there anything else that you would like to discuss?no Questions/Comments/Concerns/Other: none
== END 2025-03-11 08:55 | disposition home or self-care (01) ==
LOC: ER 03-11 01:47 → MS 03-11 02:13
PROVIDERS: Registered Nurse; Admitting Provider Family Medicine; Emergency Provider Internal Medicine; Family Provider Internal Medicine; Visit Provider Family Medicine
DX: I95.9 Hypotension, unspecified (principal); Z95.5 Presence of coronary angioplasty implant and graft; I25.2 Old myocardial infarction; R07.9 Chest pain, unspecified; F17.200 Nicotine dependence, unspecified, uncomplicated; Z79.899 Other long term (current) drug therapy; E78.00 Pure hypercholesterolemia, unspecified; D50.9 Iron deficiency anemia, unspecified; I25.10 Atherosclerotic heart disease of native coronary artery without angina pectoris; I11.0 Hypertensive heart disease with heart failure; I50.43 Acute on chronic combined systolic (congestive) and diastolic (congestive) heart failure
CPT/HCPCS: 36415; 71045; 80048; 80053; 83880; 84484; 85025; 85027; 85378; 93005; 96360; 96361; 99285; G0378

== ENCOUNTER 2025-06-08 19:41 | Emergency (ER) | payer OTHER, SELFPAY ==
--- OUTSIDE RECORDS SUMMARY | 2021-07-27 10:45 | XMS_ITS | Continuity of Care Document ---
Author Organization [facility] Address [address] [place] [address] Phone Care Team Providers Care Director Work Name Role Phone Serna Lan HUYNHry Unavailable Unavailable Allergies, Adverse Reactions, Alerts Substance Reaction Status Criticality No Known Allergies Active No Inform ation Medications Medication Instructions Dosage Effective Dates (start - stop) Status Comments lisinopril 30 mg tablet take 1 tablet by oral route every day 30 MG - Active Zanaflex 4 mg capsule take 1 capsule by oral route every 6 - 8 hours as needed not to exceed 3 doses in 24 hours 4 MG - Active gabapentin 400 mg capsule take 2 capsule by oral route 3 times every day 800 MG - Active gabapentin 100 mg capsule take 1 capsule by oral route 3 times every day 100 MG - Active Percocet 5 mg-325 mg tablet take 1 tablet by oral route every 6 hours as needed 1.00 tablet - Active Procedures Procedure Date Resin Composite 2s; Posterior 1 Resin Three Surfaces Anterior 1 Oral Hygiene Instruction Prophylaxis Adult Oral Hygiene Instruction Extract; Erupted Th/exposted Rt Sep-27-2 021 Extract; Erupted Th/exposted Rt Sep-27-2 021 Extract; Erupted Th/exposted Rt Sep-27-2 021 Extract; Erupted Th/exposted Rt Sep-27-2 021 Extract; Erupted Th/exposted Rt Sep-27-2 021 Extract; Erupted Th/exposted Rt Sep-27-2 021 Extract; Erupted Th/exposted Rt Sep-27-2 021 Extract; Erupted Th/exposted Rt Sep-27-2 021 Extract; Erupted Th/exposted Rt Sep-27-2 021 Extract; Erupted Th/exposted Rt Jun-2 021 Extract; Erupted Th/exposted Rt 2 021 Extract; Erupted Th/exposted Rt 2 021 Extract; Erupted Th/exposted Rt 2 021 Extract; Erupted Th/exposted Rt 2 021 Extract; Erupted Th/exposted Rt 2 021 Extract; Erupted Th/exposted Rt 2 021 Extract; Erupted Th/exposted Rt 2 021 Intraoral-complete Series (bw) Comp Oral Eval New/estab Patient 2020 Oral Hygiene Instruction Oral Hygiene Instruction No Charge Advance Directives Directive Yes / No Effective Date File Name No Information Encounters Encounter Description Practice Location Reason(s) For Visit Diagnoses Date Provider Providers Copied on Encounter [facility], [address] [place] [address], [id number], tel:[phone] Dental Clinic filling (chief complaint) Encounter for screening for dental disorders Kareem Alvarez. [address] [place] [address], [id number], [place]. tel:[phone] [facility], [address] [place] [address], [id number], tel:[phone] Dental Clinic PC (chief complaint)P A (chief complaint) Encounter for screening for dental disorders Kareem Alvarez. [address] [place] [address], [id number], [place]. tel:[phone] [facility], [address] [place] [address], [id number], [place] tel:[phone] Dental Clinic ext (chief complaint) Encounter for screening for dental disorders Danis Lin. [address] [place] [address], [id number], [place]. tel:[phone] [facility], [address] [place] [address], [id number], [place] tel:[phone] Dental Clinic dental new (chief complaint) Encounter for screening for dental disorders Kareem Alvarez. [address] [place], [place], [id number], [place]. tel:[phone] [facility], [address], [place], [id number], tel:[phone] Dental Clinic DN (chief complaint) Encounter for screening for dental disorders Kareem Alvraez. [address] [place], [place], [id number], [place]. tel:[phone] Family History Family Member Type Diagnosis Age At Onset Mother Problem (finding) Father Problem Alive and well Payers Payer name Insurance type Covered alliance party ID Freddie river(s) [employer] CI [id number] Social History Type Description Quantity Date Captured Comments Alcohol Use Details Unknown Caffeine Use Details Unknown Tobacco Use Status Cigarette smoker Smoking Status Current every day smoker 2020 Sex Male Sexual Orientation Straight or heterosexual Gender Identity Male Vital Signs Date / Time: Height Weight BMI Pulse Rate Blood Pressure Temperature Respiratory Rate Body Surface Area Head Circumference Head Circ. Percentile Wt./Guy. Percentile BMI percentile Pulse Ox Inhaled Ox 2:46 PM 82 /min 163/103 mm[Hg] 98.90 F Chief Complaint And Reason For Visit From encounter dated '07/27/2021 14:45'. filling (chief complaint). Description: filling Reason For Referral Reason For Referral No Information Plan Of Treatment Date Type Action Status Goal Tobacco cessation counseling completed History Of Present Illness Encounter Date Complaint History Of Prese nt Illness filling filling PC PA PA ext ext dental new dental new DN DN Functional Status Date Functional Assessmen t No Information Instructions Date Instruction Additional Infor mation No Information Assessments Type Assessment Date No Information Patient Care Teams Name Effective Dates (start - stop) Status Members No Information
[2025-06-08 19:50] VITALS: BP 132/98; PULSE 111; TEMP 36.5; O2SAT 96; BMI 24.8
--- OUTSIDE RECORDS SUMMARY | 2025-06-08 19:50 | XMS_ITS | Clinical Summary ---
Author Organization [facility] Address [address] [place], [place] [id number] Care Team Providers Care Director Talent Name Role Phone Keshawn Salguero DO Primary Care Provider Allergies No known active allergies Medications amLODIPine (NORVASC) 5 mg tablet Take 5 mg by mouth once daily. 2 12/28/2017 Active gabapentin (NEURONTIN) 300 mg capsule 2 12/21/2017 Active PROAIR HFA 90 mcg/actuation inhaler TAKE 2 PUFFS BY MOUTH EVERY 4 HOURS NEEDED 3 12/28/2017 Active amitriptyline (ELAVIL) 10 mg tablet Take 10 mg by mouth at bedtime as needed. Active amitriptyline (ELAVIL) 25 mg tablet Take 25 mg by mouth at bedtime as needed. Active oxyCODONE-aceta minophen 5-325 mg (PERCOCET) Take by mouth. Active Active Problems Problem Noted Date Diagnosed Date Radiculopathy, lumbar region 02/21/2018 Overview (02/21/2018): Added automatically from request for surgery [id number] Lumbar disc herniation 02/21/2018 Overview (02/21/2018): Added automatically from request for surgery [id number] Degeneration of lumbar intervertebral disc 02/21 Overview (02/21/2018): Added automatically from request for surgery [id number] Family History Medical History Relation Comments Diabetes Mother Heart Attack Mother Relation Status Comments Father Alive Mother Social History Tobacco Use Types Packs/Day Years Used Date Smoking Tobacco: Every Day Cigarettes 0.5 25 Smokeless Tobacco: Never Alcohol Use Standard Drinks/Week Comments No 0 (1 standard drink = 0.6 oz pur e alcohol) PHQ-2 Answer Date Recorded PHQ-2 score 0 11/07/2018 Area Deprivation Index Answer Date Bobby rded National Score (1-100), lower number is lower ri sk Not on file 09/18/2020 State Score (1-10), lower number is lower risk N ot on file 09/18/2020 Data from: https://www.neighborhoodatlas.medicine.[facility]/. Last address used for calculation Not on file 09/18/2020 Sex and Gender Information Value Date Recorded Sex Assigned at Not on file Legal Sex Male 10:04 AM EDT Gender Identity Not on file Sexual Orientation Not on file Last Filed Vital Signs Vital Sign Reading Time Taken Comments Blood Pressure 135/81 11/07/2018 10:33 AM EST Pulse 84 11/07/2018 10:33 AM EST Temperature 36.8 C (98.2 F) 11/07/2018 10:33 AM EST Respiratory Rate 20 11/07/2018 10:33 AM EST Oxygen Saturation 96% 11/07/2018 10:33 AM EST Inhaled Oxygen Concentration - - Weight 72.7 kg (160 lb 4.8 oz) 11/07/2018 10:33 AM EST Height 175.3 cm (5' 9 ) 11/07/2018 10:33 AM EST Body Mass Index 23.67 11/07/2018 10:33 AM EST Plan of Treatment Health Maintenance Due Date Last Done Comments Anxiety Screening 01/24/1996 Depression Screening 01/24/1996 HIV Screening 01/24/1996 Hepatitis C Screening 01/24/1996 DTaP,Tdap,Td Vaccine (1 - Tdap) 1997 Hepatitis B Vaccine (1 of 3 - 19+ 3-dose series) 01/[address] Colonography 2023 Cologuard (FIT-DNA) 2023 Colonoscopy 2023 Colorectal Cancer Screening 2023 Diabetes Screening 2023 06/08/2018 Fecal Occult Blood 2023 Sigmoidoscopy 2023 Influenza Vaccine (#1) 2025 07/12/2018 Procedures Procedure Name Priority Date/Time Associated Diagnosis Comments BASIC METABOLIC PANEL Routine 06/08/2018 2:47 PM EDT Radiculopathy, lumbar region Preoperative examination from Last 3 Months or Most Recently Relevant to Health Maintenance Results * (ABNORMAL) BASIC METABOLIC PNL (06/08/2018 2:47 PM EDT) Glucose 86 74 - 99 mg/dL 06/08/2018 11:08 PM T [facility] Comment: The [place] Diabetes Association (ADA) provides guidance for cutoff [...] Standards of Medical Care in Diabetes 2016, [place] [employer] Association. Diabetes Care. 2016.39(Suppl 1). BUN 8(L) 9 - 24 mg/dL 06/08/2018 11:08 PM [facility] Creatinine 1.07 0.73 - 1.22 mg/dL 06/08/2018 11:08 PM [facility] Sodium 142 136 - 144 mmol/L 06/08/2018 11:08 PM [facility] Potassium 4.7 3.7 - 5.1 mmol/L 06/08/2018 11:08 PM [facility] Chloride 101 97 - 105 mmol/L 06/08/2018 11:08 PM [facility] CO2 27 22 - 30 mmol/L 06/08/2018 11:08 PM [facility] Anion Gap 14 9 - 18 mmol/L 06/08/2018 11:08 PM [facility] Calcium 9.7 8.5 - 10.2 mg/dL 06/08/2018 11:08 PM [facility] eGFR- >60 06/08/2018 11:08 PM [facility] eGFR-All Other Races >60 . 06/08/2018 11:08 PM [facility] Comment: eGFR (Estimated GFR) Units of measure: [...] eGFR may not accurately reflect actual GFR. Blood specimen (specimen) BLOOD SPECIMEN / Unknown 06/08/2018 2:47 PM EDT 06/08/2018 2:49 PM EDT us Laurel Verma MD LABORATORY Final Result [facility] [address] [place] [address] from Last 3 Months or Most Recently Relevant to Health Maintenance Insurance [facility] PPO Care Teams Director Talent Relationship Specialty Start Date End Date Keshawn Salguero DO [address] [place] [address] PCP - General Internal Medicine 01/04/18
--- OUTSIDE RECORDS SUMMARY | 2025-06-08 19:50 | XMS_ITS | Clinical Summary ---
Author Organization [facility] Address [address] [place] [address] Care Team Providers Care Envelope Adjuster Name Role Phone Keshawn Salguero DO Primary Care Provider Allergies Active Allergy Reactions Criticality Noted Date Comments Montelukast Low 09/06/2023 Other Reaction(s): nightmares Bupropion Other Low 12/14/2023 Makes him angry Medications [facility] Aspirin Low Dose 81 MG EC tablet Take 81 mg by mouth Daily 08/31/20 23 Active atorvastatin (Lipitor) 80 MG tablet Take 80 mg by mouth Daily 08/31/20 23 Active nitroglycerin (Nitrostat) 0.4 MG SL tabletIndicatio ns:Coronary artery disease involving chick[place] indians[place] division coronary artery of chick[place] indians[place] heart with angina pectoris Place 1 tablet (0.4 mg) under the tongue every 5 (five) minutes if needed for chest pain 25 tablet 3 12/16/19 24 Active clopidogrel (Plavix) 75 MG tabletIndicatio ns:Coronary artery disease involving [place] indians[place] division coronary artery of [place] heart without angina pectoris Take 1 tablet (75 mg) by mouth Daily 90 tablet 3 04/17/20 24 Active isosorbide mononitrate ER (Imdur) 60 MG 24 hr tabletIndicatio ns:Coronary artery disease involving chick[place] indians[place] division coronary artery of [place] indians[place] heart without angina pectoris Take 1 tablet (60 mg) by mouth Daily 07/23/20 24 Active pantoprazole (ProtoNix) 40 MG EC tabletIndicatio ns:Gastroesopha geal Reflux Disease Take 1 tablet (40 mg) by mouth Daily Do not crush, chew, or split. 90 tablet 3 11/08/19 25 026 Active ranolazine (Ranexa) 500 MG 12 hr tabletIndicatio ns:Coronary artery disease involving chick[place]om[place] indians[place]eastern division coronary artery of chick[place] indians[place]eastern division heart with angina pectoris Take 1 tablet (500 mg) by mouth in the morning and 1 tablet (500 mg) before bedtime. Do not crush, chew, or split. 60 tablet 11 02/05/20 25 Active losartan (Cozaar) 50 MG tablet Take 50 mg by mouth at bedtime Active carvedilol (Coreg) 3.125 MG tablet Take 3.125 mg by mouth in the morning and 3.125 mg in the evening. Take with meals. Active furosemide (Lasix) 20 MG tablet Take 20 mg by mouth Daily Active cyclobenzaprine (Flexeril) 10 MG tabletIndicatio ns:Chronic pain syndrome TAKE 1 TABLET (10 MG) BY MOUTH 3 (THREE) TIMES A DAY NEEDED FOR MUSCLE SPASMS 90 tablet 3 04/15/20 25 025 Active gabapentin (Neurontin) 300 MG capsuleIndicati ons:Other chronic pain TAKE 3 CAPSULES BY MOUTH IN THE MORNING,IN THE EVENING,AND BEFORE BEDTIME 270 capsule 3 05/17/20 25 Active mirtazapine (Remeron) 15 MG tabletIndicatio ns:Moderate episode of recurrent major depressive disorder (HCC) TAKE 1 TABLET BY MOUTH AT BEDTIME 90 tablet 1 05/31/20 25 Active sertraline (Zoloft) 25 MG tabletIndicatio ns:Moderate episode of recurrent major depressive disorder (HCC),Generaliz ed anxiety disorder TAKE 1 TABLET BY MOUTH EVERY DAY 90 tablet 1 05/31/20 25 Active gabapentin (Neurontin) 300 MG capsuleIndicati ons:Other chronic pain Take 3 capsules (900 mg) by mouth in the morning and 3 capsules (900 mg) in the evening and 3 capsules (900 mg) before bedtime. 270 capsule 3 01/10/20 25 025 Discontinued sertraline (Zoloft) 25 MG tabletIndicatio ns:Moderate episode of recurrent major depressive disorder (HCC),Generaliz ed anxiety disorder Take 1 tablet (25 mg) by mouth Daily 30 tablet 1 05/09/20 25 025 Discontinued mirtazapine (Remeron) 15 MG tabletIndicatio ns:Moderate episode of recurrent major depressive disorder (HCC) Take 1 tablet (15 mg) by mouth at bedtime 30 tablet 1 05/09/20 25 025 Discontinued Active Problems Problem Noted Date Diagnosed Date Primary hypertension 03/19/2025 Spinal cord stimulator status 03/19/2025 Asthma 09/06/2023 Chronic pain 09/06/2023 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 COVID-19 long hauler 09/06/2023 Failed back surgical syndrome 09/06/2023 Generalized anxiety disorder 09/06/2023 Hyperplasia of prostate with lower urinary tract symptoms (LUTS) 09/06/2023 Major depression 09/06/2023 Migraine without status migrainosus, not intract able 09/06/2023 Coronary artery disease invo lving chick[place] indians[place] division coronary artery of chick[place] heart without angina pectoris 09/06/[address] elevation myocardial infarction (S TOMAS) 09/06/2023 Radiculopathy, lumbar region 02/21/2018 Overview (09/06/2023): Added automatically from request for surgery [id number] Bilateral kidney stones 12/10/2011 Resolved Problems Problem Noted Date Diagnosed Date Resolved Date Balance disorder 02/01/2024 03/19/2025 Cervicalgia 01/31/2024 03/19/2025 Vitamin D deficiency 09/06/2023 024 Degeneration of lumbar intervertebral disc 02/21/2018 03/19/2025 Overview (09/06/2023): Added automatically from request for surgery [id number] Encounters Date Type Department Care Team Description 05/31/2025 Refill [facility] [address] [place] [address] Uri, Candace, SALESPERSON CORSETS Moderate episode of recurrent major depressive disorder (HCC); Generalized anxiety disorder 05/31/2025 Refill [facility] [address] [place] [address] Warchol, Candace, SALESPERSON [place] Moderate episode of recurrent major depressive disorder (HCC) 05/17/2025 Refill [facility] [address] [place] [address] Keshawn Salguero DO Other chronic pain 05/09/2025 1:00 PM EDT Office Visit [facility] [address] [place] [address] Candace Grewal NP Chronic fatigue (Primary Dx); Erectile dysfunction, unspecified erectile dysfunction type; Labile blood pressure; Moderate episode of recurrent major depressive disorder (HCC); Generalized anxiety disorder 05/09/2025 Travel 04/14/2025 Refill [facility] [address] [facility] [address] [place] [address] Keshawn Salguero, Chronic pain syndrome 04/10/2025 Refill [facility] [address] [facility] [address] [place] [address] Candace Grewal NP Moderate episode of recurrent major depressive disorder (HCC); Generalized anxiety disorder ; Degeneration of intervertebral disc of lumbar region with discogenic back pain and lower extremity pain; Radiculopathy, lumbar region 03/18/2025 10:00 AM EDT Office Visit [facility] [address] [place] [address] Candace Grewal NP Need for follow-up care after discharge (Primary Dx); Moderate episode of recurrent major depressive disorder (HCC); Generalized anxiety disorder ; Degeneration of intervertebral disc of lumbar region with discogenic back pain and lower extremity pain; Radiculopathy, lumbar region; Chronic fatigue; Prostate cancer screening; Primary hypertension ; Mixed hyperlipidemia ; Use of proton pump inhibitor therapy; Diuretics causing adverse effect in therapeutic use, subsequent encounter; Hypovitaminosis D 03/18/2025 Travel from Last 3 Months Immunizations Immunization Administration Dates Next Due Influenza, injectable, MDCK, quadrivalent 2017 Influenza, injectable, quadrivalent, preservativ e free 07/28/2021,09/08/2017 Influenza, seasonal, intradermal, preservative f ree 07/24/2013 Family History Medical History Relation Name Comments No Known Problems Brother No Known Problems Daughter Diabetes Mother Mom Hypertension Mother Mom Stroke Mother Mom No Known Problems Sister No Known Problems Son Relation Name Status Comments Brother 1 Brother Daughter 1 Daughter Father Alive Mother Mom Other Sister 1 Sister Son 2 Sons Social History Tobacco Use Types Packs/Day Years Used Date Smoking Tobacco: Every Day Cigarettes Smokeless Tobacco: Never Tobacco Cessation:Ready to Q uit: Not Asked; Counseling Given: Not Answered Comments:5 or less cigarettes/day, thinking about quitting. Alcohol Use Standard Drinks/Week Comments Not Currently 0 (1 standard drink = 0.6 oz pur e alcohol) coke 2x a day AUDIT-C Answer Date Recorded Q1: How often do you have a drink containing alcohol? Never 05/09/2025 Q2: How many drinks containi ng alcohol do you have on a typical day when you are drinking? Patient does not drink Q3: How often do you have si x or more drinks on one occasion? Never 05/09/2025 PHQ-2 Answer Date Recorded Patient Health Questionnaire-2 Score 0 05/09/2025 [facility] - Occupational Stress Questionnaire Answer Date Recorded Do you feel stress - tense, restless, nervous, or anxious, or unable to sleep at night because your mind is troubled all the time - these days? Very much 05/09/2025 Sex and Gender Information Value Date Recorded Sex Assigned at Not on file Legal Sex Male 6:45 PM EDT Gender Identity Not on file Sexual Orientation Not on file Last Filed Vital Signs Vital Sign Reading Time Taken Comments Blood Pressure 110/64 05/09/2025 1:03 PM EDT Pulse 50 05/09/2025 1:03 PM EDT Temperature - - Respiratory Rate - - Oxygen Saturation 95% 03/18/2025 9:58 AM EDT Inhaled Oxygen Concentration - - Weight 79.8 kg (176 lb) 05/09/2025 1:03 PM EDT Height 175.3 cm (5' 9 ) 05/09/2025 1:03 PM EDT Body Mass Index 25.99 05/09/2025 1:03 PM EDT Plan of Treatment Upcoming Encounters Date Type Department Care Team (Late st Contact Info) Description 06/26/2025 3:00 PM EDT Office Visit [facility] [address] [place] [address] Candace Grewal, JOSS [address] [facility] [address] [place] [address] Health Maintenance Due Date Last Done Comments CT Colonography 1978 Colonoscopy 1978 FIT-DNA 1978 FIT 1978 FOBT 1978 Sigmoidoscopy 1978 Influenza Vaccine (#1) 2025 1, 07/12/2018, 09/08/2017, Additional history exists Colorectal Cancer Screening 07/23/2025 Postponed from 1978 (Patient Refused) Insurance [employer] ([employer]) Care Teams Envelope Adjuster Relationship Specialty Start Date End Date Keshawn Salguero DO [address] [facility] [address] [place] [address] PCP - General Internal Medicine 02/15/23
--- OUTSIDE RECORDS SUMMARY | 2025-06-08 19:50 | XMS_ITS | Encounter Summary ---
Author Organization [facility] Address [address] [place] [address] Care Team Providers Care Generating Station Mechanic Name Role Phone Keshawn Salguero DO Primary Care Provider Source Comments In the event this information is protected by the Federal Confidentiality of Alcohol and Drug AbusePatient Records regulations: The Federal rules restrict any use of the information to criminally investigate or prosecute any alcohol or drug abuse patient.[facility] Encounter Details Date Type Department Care Team (Latest Contact Info) Description 05/10/2019 H&P External-NonCCF Provider, External, DK Do not enter address information under generic External Provider. Social History Tobacco Use Types Packs/Day Years Used Date Smoking Tobacco: Every Day Cigarettes 0.5 25 Smokeless Tobacco: Never Alcohol Use Standard Drinks/Week Comments No 0 (1 standard drink = 0.6 oz pur e alcohol) PHQ-2 Answer Date Recorded PHQ-2 score 0 11/07/2018 Sex and Gender Information Value Date Recorded Sex Assigned at Not on file Legal Sex Male 10:04 AM EDT Gender Identity Not on file Sexual Orientation Not on file documented as of this encounter Functional Status * Are you deaf or do you have serious difficulty hearing? Answer Date of Assessment Author No 06/14/2018 8:48 PM EDT Stacy Hernandez RN * Are you blind or do you have serious difficulty seeing, even when wearing glasses? Answer Date of Assessment Author No 06/14/2018 8:48 PM EDT Stacy Hernandez RN * Do you have serious difficulty walking or climbing stairs? Answer Date of Assessment Author No 06/14/2018 8:48 PM EDT Stacy Hernandez RN * Do you have difficulty dressing or bathing? Answer Date of Assessment Author No 06/14/2018 8:48 PM EDT Stacy Hernandez RN * Because of a physical, mental, or emotional condition, do you have difficulty doing errands alone such as visiting a doctor's office or shopping? Answer Date of Assessment Author No 06/14/2018 8:48 PM EDT Stacy Hernandez RN documented as of this encounter Mental Status * Because of a physical, mental, or emotional condition, do you have serious difficulty concentrating, remembering, or making decisions? Answer Entry Date Author No 06/14/2018 8:48 PM Stacy Wilson RN documented in this encounter Plan of Treatment Not on file documented as of this encounter Visit Diagnoses Not on filedocumented in this encounter Care Teams Generating Station Mechanic Relationship Specialty Start Date End Date Keshawn Salguero DO [address] [address] PCP - General Internal Medicine 01/04/18 documented as of this encounter
--- OUTSIDE RECORDS SUMMARY | 2025-06-08 19:50 | XMS_ITS | Encounter Summary ---
Author Organization [facility] Address [address] [place] [address] Care Team Providers Care Foreign Student Adviser Teacher Name Role Phone Keshawn Salguero DO Unavailable [phone] Keshawn Salguero DO Primary Care Provider Encounter Details Date Type Department Care Team (Late Contact Info) Description 08/30/2023 Orders Only [facility] [address] [facility] [address] [place] [address] A, Unknown Practice [address] [place], [place] [phone] Social History Tobacco Use Types Packs/Day Years Used Date Smoking Tobacco: Every Day Cigarettes Comments:5 or less cigarette s/day, thinking about quitting. Alcohol Use Standard Drinks/Week Comments Not Currently 0 (1 standard drink = 0.6 oz pur e alcohol) coke 2x a day Sex and Gender Information Value Date Recorded Sex Assigned at Not on file Legal Sex Male 6:45 PM EDT Gender Identity Not on file Sexual Orientation Not on file documented as of this encounter Plan of Treatment Upcoming Encounters Date Type Department Care Team (Late Contact Info) Description 06/26/2025 3:00 PM EDT Office [facility] [address] [facility] [address] [place] [address] Candace Grewal, DUMP TRUCK DRIVER [address] [facility] [address] [place] [address] documented as of this encounter Procedures Procedure Name Priority Date/Time Associated Diagnosis Comments TRANSTHORACIC ECHO (TTE) COMPLETE Routine 08/30/2023 2:06 PM EST XR CHEST 1 VIEW Routine 08/29/2023 10:58 AM EST documented in this encounter Results * Transthoracic echo (TTE) complete (08/30/2023 2:06 PM EST) Anatomical Region Laterality Modality Heart Ultrasound us Unknown Practice A CV ECHO PROCEDURES Final Resu lt * XR chest 1 view (08/29/2023 10:58 AM EST) Anatomical Region Laterality Modality Chest Radiographic Monica ging us Unknown Practice A IMG XR PROCEDURES Final Resul t documented in this encounter Visit Diagnoses Not on filedocumented in this encounter Care Teams Foreign Student Adviser Teacher Relationship Specialty Start Date End Date Keshawn Salguero DO [address] [place] [address] PCP - Medical [place] [employer] 03/10/23 12/17/23 Keshawn Salguero DO [address] [place] [address] PCP - General Internal Medicine 02/15/23 documented as of this encounter
--- OUTSIDE RECORDS SUMMARY | 2025-06-08 19:50 | XMS_ITS | Encounter Summary ---
Author Organization [facility] Address [address] [place] [address] Care Team Providers Care Director Geothermal Operations Name Role Phone Leonkatarzynavenkatesh Keshawn Dariana SHAW Primary Care Provider [phone] Reason for Visit * Reason Comments Med Change Request Encounter Details Date Type Department Care Team (Late st Contact Info) Description 05/31/2025 [facility] [address] [facility] [address] [place] [address] Candace Grewal, SALAD COUNTER ATTENDANT [address] [facility] [address] [place] [address] Moderate episode of recurrent major depressive disorder (HCC) Social History Tobacco Use Types Packs/Day Years Used Date Smoking Tobacco: Every Day Cigarettes Smokeless Tobacco: Never Comments:5 or less cigarette s/day, thinking about [...] Recorded Patient Health Questionnaire-2 Score 0 05/09/2025 [facility] - Occupational Stress Questionnaire Answer Date Recorded [...] Medicine [address] [place] [address] Candace Grewal, JOSS [address] [facility] [address] [place] [address] documented as of this encounter Visit Diagnoses Diagnosis Moderate episode of recurrent major depressive disorder (HCC) documented in this encounter Care Teams Director Geothermal Operations Relationship Specialty Start Date End Date Keshawn Salguero DO [address] [facility] [address] [place] [address] PCP - General Internal Medicine 02/15/23 documented as of this encounter
--- OUTSIDE RECORDS SUMMARY | 2025-06-08 19:50 | XMS_ITS | Encounter Summary ---
Author Organization [facility] Address [address] [place] [address] Care Team Providers Care Operations Engineer Name Role Phone Keshawn Salguero DO Primary Care Provider Encounter Details Date Type Department Care Team (Late st Contact Info) Description 01/12/2024 Orders Only [facility] [address] [facility] [address] [place] [address] A, Unknown Practice [address] [place], [place] [phone] Social History Tobacco Use Types Packs/Day Years [...] Description 06/26/2025 3:00 PM EDT Office Visit [facility] [address] [facility] [address] [place] [address] Candace Grewal, JOSS [address] [facility] [address] [place] [address] documented as of this encounter Procedures Procedure Name Priority Date/Time Associated Diagnosis Comments SCANNED LABS Routine 01/12/2024 2:11 PM EDT documented in this encounter Results * SCANNED LABS (01/12/2024 2:11 PM EDT) us Unknown Practice A LAB CHG PERFORMABLES Final Re sult documented in this encounter Visit Diagnoses Not on filedocumented in this encounter Care Teams Operations Engineer Relationship Specialty Start Date End Date Keshawn Salguero DO [address] [facility] [address] [place] [address] PCP - General Internal Medicine 02/15/23 documented as of this encounter
--- OUTSIDE RECORDS SUMMARY | 2025-06-08 19:50 | XMS_ITS | Encounter Summary ---
Author Organization [facility] Address [address] [place] [address] Care Team Providers Care Patrol Conductor Name Role Phone Keshawn Salguero DO Primary Care Provider [phone] Reason for Visit * Reason Comments Med Change Request Encounter Details Date Type Department Care Team (Late st Contact Info) Description 05/31/2025 [facility] [address] [facility] [address] [place] [address] Candace Grewal, DEBURRING TECHNICIAN [address] [facility] [address] [place] [address] Moderate episode of recurrent major depressive disorder (HCC); Generalized anxiety disorder Social History Tobacco Use Types Packs/Day Years [...] Recorded Patient Health Questionnaire-2 Score 0 05/09/2025 [facility] - Occupational Stress [...] [facility] [address] [place] [address] Candace Grewal, JOSS [address] [place] [address] documented as of this encounter Visit Diagnoses Diagnosis Moderate episode of recurrent major depressive disorder (HCC) Generalized anxiety disorder Generalized anxiety disorder documented in this encounter Care Teams Patrol Conductor Relationship Specialty Start Date End Date Keshawn Salguero DO [address] [place] [address] PCP - General Internal Medicine 02/15/23 documented as of this encounter
--- OUTSIDE RECORDS SUMMARY | 2025-06-08 19:50 | XMS_ITS | Encounter Summary ---
Author Organization [facility] Address [address] [place] [address] Care Team Providers Care Truck Shop Mechanic Name Role Phone Keshawn Salguero DO Unavailable [phone] Keshawn Salguero DO Primary Care Provider Encounter Details Date Type Department Care Team (Late st Contact Info) Description 12/09/2023 Orders Only [facility] [address] [facility] [address] [place] [address] A, Unknown Practice [address] [place], [place] [id number] Social History Tobacco Use Types Packs/Day Years [...] 06/26/2025 3:00 PM EDT Office Visit [facility] [address] [facility] [address] [place] [address] Candace Grewal, SIDEROGRAPHER [address] [facility] [address] [place] [address] documented as of this encounter Procedures Procedure Name Priority Date/Time Associated Diagnosis Comments XR CHEST 1 VIEW Routine 12/09/2023 10:56 AM EST documented in this encounter Results * XR chest 1 view (12/09/2023 10:56 AM EST) Anatomical Region Laterality Modality Chest Radiographic Monica ging us Unknown Practice A IMG XR PROCEDURES Final Resul t documented in this encounter Visit Diagnoses Not on filedocumented in this encounter Care Teams Truck Shop Mechanic Relationship Specialty Start Date End Date Keshawn Salguero DO [address] [place] [address] PCP - Medical [place] [employer] 03/10/23 12/17/23 Keshawn Salguero DO [address] [place] [address] PCP - General Internal Medicine 02/15/23 documented as of this encounter
--- OUTSIDE RECORDS SUMMARY | 2025-06-08 19:50 | XMS_ITS | Encounter Summary ---
Author Organization [facility] Address [address] [place] [address] Care Team Providers Care Pleater Name Role Phone Keshawn Salguero DO Unavailable [phone] Keshawn Salguero DO Primary Care Provider Encounter Details Date Type Department Care Team (Late st Contact Info) Description 12/12/2023 Orders Only [facility] [address] [facility] 230 [place] [address] A, Unknown Practice [address] [place], [place] [phone] Social History Tobacco Use Types Packs/Day Years [...] Visit [facility] [address] [facility] [address] [place] [address] Candace Grewal, INTERVENTION SPECIALIST [address] [facility] [address] [place] [address] documented as of this encounter Procedures Procedure Name Priority Date/Time Associated Diagnosis Comments TRANSTHORACIC ECHO (TTE) COMPLETE Routine 12/09/2023 8:18 AM EST documented in this encounter Results * Transthoracic echo (TTE) complete (12/09/2023 8:18 AM EST) Anatomical Region Laterality Modality Heart Ultrasound us Unknown Practice A CV ECHO PROCEDURES Final Resu lt documented in this encounter Visit Diagnoses Not on filedocumented in this encounter Care Teams Pleater Relationship Specialty Start Date End Date Keshawn Salguero DO [address] [place] [address] PCP - Medical [place] [employer] 03/10/23 12/17/23 Keshawn Salguero DO [address] [place] [address] PCP - General Internal Medicine 02/15/23 documented as of this encounter
--- OUTSIDE RECORDS SUMMARY | 2025-06-08 19:50 | XMS_ITS | Clinical Summary ---
Author Organization [facility] Address [address] [place] [address] Phone Care Team Providers Care Engineer Booster And Exhauster Name Role Phone Keshawn Salugero DO Primary Care Provider Social History Tobacco Use Types Packs/Day Years Used Date Smoking Tobacco: Never Assessed Sex and Gender Information Value Date Recorded Sex Assigned at Not on file Legal Sex Male 4:53 PM EST Gender Identity Not on file Sexual Orientation Not on file Last Filed Vital Signs Vital Sign Reading Time Taken Comments Blood Pressure - - Pulse - - Temperature - - Respiratory Rate - - Oxygen Saturation - - Inhaled Oxygen Concentration - - Weight 76.3 kg (168 lb 3.4 oz) 01/25/2023 1:19 P M EDT Height 175.2 cm (5' 8.98 ) 01/25/2023 1:19 PM ED T Body Mass Index 24.86 01/25/2023 1:19 PM EDT Plan of Treatment Health Maintenance Due Date Last Done Comments CT Colonography 1978 Colonoscopy 1978 Colorectal Cancer Screening 1978 FIT-DNA (Cologuard) 1978 FIT 1978 HIV Screening 1978 Lipid Panel 1978 Sigmoidoscopy 1978 Yearly Adult Physical 1978 MMR Vaccines (1 of 1 - Stand filemon series) 1979 Hepatitis C Screening 01/24/1996 Hepatitis B Vaccines (1 of 3 - 19+ 3-dose series) 1997 DTaP/Tdap/Td Vaccines (1 - Tdap) 01/24/2000 COVID-19 Vaccine (2023-2 5 season) 2024 Influenza Vaccine (#1) 2025 Zoster Vaccines (1 of 2) 01/24/2028 HIB Vaccines Aged Out No longer eligi ble based on patient's age to complete this topic HPV Vaccines Aged Out No longer eligi ble based on patient's age to complete this topic Hepatitis A Vaccines Aged Out No long er eligible based on patient's age to complete this topic IPV Vaccines Aged Out No longer eligi ble based on patient's age to complete this topic Meningococcal Vaccine Aged Out No helder ritu eligible based on patient's age to complete this topic Pneumococcal Vaccine: Pediat rics and At-Risk Adult Patients Aged Out No longer martín gible based on patient's age to complete this topic Rotavirus Vaccines Aged Out No longer eligible based on patient's age to complete this topic Care Teams Engineer Booster And Exhauster Relationship Specialty Start Date End Date Keshawn Salguero DO PCP - General 11/10/21
--- OUTSIDE RECORDS SUMMARY | 2025-06-08 19:50 | XMS_ITS | Patient Health Record ---
Author Organization [facility] [place] Address [address] [place] [address] Care Team Providers Care Lone Lead Lineman Name Role Phone None, Unknown or Primary Care Provider Unavailab le Allergies No Known Allergies Reason For Referral No Information Medications Medication SIG (Take, Route, Fr equency, Duration) Notes Start Date End Date Status Gabapentin Active Percocet 5-325 MG 1 tablet as needed O rally every 6 hrs Active Amitriptyline HCl Ac tive Social History Tobacco Use: Social History Observation Description Date Details (start date - stop date) Current Smoker NA - NA Tobacco Use/Smoking Question Answer Notes Patient is a current smoker How many cigarettes a day do you smoke? 6-10 Alcohol Screen (Audit-C) Question Answer Notes Did you have a drink containing alcohol in the p ast year? 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) Active confirmed Problem Information temporarily unavailable High cholesterol (E78.00) Active confirmed Problem Information temporarily unavailable Benign prostatic hyperplasia with lower urinary tract symptoms, symptom details unspecified (N40.1) Active confirmed Problem Information temporarily unavailable Heart failure with reduced ejection fraction and diastolic dysfunction (I50.40) Active confirmed Plan Of Treatment Pending Test Test Name Order Date LITHOLINK, 24 HR URINE 07/15/2021 Insurance Providers Payer Name Payer Address Payer Phone Subscriber Number Group Number Insured Name Patient Relationship to Insured Coverage Start Date Coverage End Date [employer] [address] [address] [place] [address] [id number] Corona Lantigua Self - patient is the insured Medical (General) History Medical History History ICD Code asthma hypertension kidney stones no covid vaccine as of 06/05/21 Surgical History Surgery Date(Month/Year) back surgery with cage back surgery x 2 kidney stone removal
--- OUTSIDE RECORDS SUMMARY | 2025-06-08 19:50 | XMS_ITS | Encounter Summary ---
Author Organization [facility] Address [address] [place] [address] Care Team Providers Care Ct Mri Technologist Name Role Phone Keshawn Salguero DO Unavailable Keshawn Salguero DO Primary Care Provider Encounter Details Date Type Department Care Team (Late Contact Info) Description 03/15/2023 Abstract [facility] [address] [facility] [address] [place] [address] Keshawn Salguero DO [address] [facility] [address] [place] [address] Social History Tobacco Use Types Packs/Day Years Used Date Smoking Tobacco: Every Day Cigarettes Tobacco Cessation:Ready to Q uit: Not Asked; [...] Upcoming Encounters Date Type Department Care Team ([facility] Contact Info) Description 06/26/2025 3:00 PM EDT Office Visit [facility] [address] [facility] [address] [place] [address] Candace Grewal, JOSS [address] [facility] [address] [place] [address] documented as of this encounter Visit Diagnoses Not on filedocumented in this encounter Care Teams Ct Mri Technologist Relationship Specialty Start Date End Date Keshawn Salguero DO [address] [facility] [address] [place] [address] PCP - Medical [place] [employer] 03/10/23 12/17/23 Keshawn Salguero DO [address] [facility] [place] [address] PCP - General Internal Medicine 02/15/23 documented as of this encounter
--- OUTSIDE RECORDS SUMMARY | 2025-06-08 19:51 | XMS_ITS | CCD ---
Author Organization [facility] Care Team Providers Care Administrative Staff Supervisor Name Role Phone LAUREL LOERA () Admitting Un available LAUREL LOERA () Attending [...] Care Provider MD Shaquille Remy Attending Provider [phone] Geovany Valle Unavailable [facility], DR BANDA Primary Care Unavailable ELISHA ., DR CHAUDHRY Admitting Unavailable ELISHA ., DR CHAUDHRY Attending Unavailable ELISHA Kamara, DR CHAUDHRY Consulting Unavailable VASCHAK, DR WILSON Consulting Unavailable Vaschak, Dr. Katie Vera Primary Care Thien Roberson Attending Thien Roberson Attending Thien Roberson Referring Thien Roberson Admitting Unava ilable Noemy, Dr. Katie Vera Primary Care Thien Roberson Admitting Thien Roberson Attending Thien Roberson Referring Unava ilable Noemy, Dr. Katie Vera [facility] Thien Roberson Attending Aidava alia Salguero, Dr. Katie Vera [facility] Katie Basilio [facility] Unavailable Shaquille Remy Attending Unavailable Shaquille Remy Admitting Unavailable Katie Salguero [facility] Unavailable Shaquille Remy Attending Unavailable Shaquille Remy Admitting Unavailable DO Katie Salguero [facility] Provider [phone] MD Shaquille Remy Attending Provider Denise Welch Attending Unavaila ble NONE, XXXX Referring Unavailable DO Dora RHODES Admitting UnavailDurga Rodriguez Attending Unavailable [facility] Cardio, XXXX Consulting Unavailable Frank SERRANO Consulting [...] Unavailable Katie Salguero DO Primary Care Provider [phone] [facility], [place] Referring Unavailable ALGCANDICE, MOHAMAD Referring Unavailable CARY, CRALOSAMAD Attending Unavailable AUDIECANDICE, ISADORA Attending Unavailable BELL BALLARD Attending Unavailable ALGCANDICE, CARLOSAMAD Attending Unavailable ALGCANDICE, CARLOSAMAD Attending Unavailable CARY, CARLOSOTTOD Attending Unavailable RAQUELNAVNEETRALF, CARLOSAMAD Admitting Unavailable KATIE SALGUERO Attending Unavailable CANDACE LIMON Attending Unavailable KATIE SALGUERO Referring Unavailable MABLE STRICKLAND Attending Unavailable CANDACE LIMON Attending Unavailable KATIE SALGUERO Referring Unavailable Allergies Allergy Classification Reported Allergen(s) Allergy Type Date of Onset Reaction(s) Facility (20 sources) montelukast; Translations: [MONTELUKAST] Drug Allergy 2 [facility] (1 source) montelukast Drug Allergy 2 [facility] Repository (1 source) montelukast Drug Allergy [facility] [place] Other (1 source) No Known Medication Allergies; Translations: [No Known Medication Allergies] Propensity to adverse reactions (disorder) [facility] Repository (8 sources) buPROPion; Translations: [BUPROPION] Drug Allergy 4 [...] Discontinued 1 TAB PO Three times daily 90 March 21, 2024 Rossi 10th, 2024 11:40am Albuterol (8 sources) beta2-Adrenergic Agonist Start: 02-11-2022 albut mercedes Refills(s) 0 Start Date: 02/11/22 Status: Ordered amitriptyline hydrochloride 25 mg oral tablet (20 sources) Tricyclic Antidepressant Start: 02-11-2022 amitr iptyline Refills(s) 0 Start Date: 02/11/22 Status: Ordered Start: 07-24-2020 End: 03-18-2025 amitriptyline 10 mg Tab Refi lls(s) 0 Start Date: 05/10/24 Status: Ordered Start: 06-28-2017 End: 03-18-2025 take 1 tablet by mouth once daily at bedtime amitriptyline 25 mg Tab 25 mg = 1 tab(s), Oral, Once a day (at bedtime), # 30 tab(s), Refills(s) 1, Pharmacy: [id number], 175.3, cm, 07/18/24 11:06:00 EDT, Height/Length Dosing, 75.9, kg, 07/18/24 11:06:00 EDT, Weight Dosing Start Date: 07/18/24 Status: Ordered aspirin 81 mg delayed release oral tablet (14 sources) Platelet Aggregation Inhibitor, Nonsteroidal Anti-inflammatory Drug Start: 08-31-2023 take 1 tablet by mouth once daily [facility] Aspirin Low Dose 81 MG EC tablet Take 81 mg by mouth Daily 08/31/2023 Active atenolol 100 mg oral tablet (5 sources) beta-Adrenergic Alfonzo Start: 02-11-2022 take 1 tablet by mouth once daily atenolol 100 mg Tab 100 mg = 1 tab(s), Oral, Daily Start Date: 02/11/22 Status: Ordered atorvastatin 80 mg oral tablet (14 sources) HMG-CoA Reductase Inhibitor Start: 08-31-2023 take 1 tablet by mouth once daily atorvastatin (Lipitor) 80 MG tablet Take 80 mg by mouth Daily 08/31/2023 Active cloNIDine hydrochloride 0.1 mg oral tablet (5 sources) Central alpha-2 Adrenergic Agonist Start: 03-09-2022 take 1 tablet by mouth twice daily cloNIDine 0.1 mg tab TAKE 1 TABLET BY MOUTH TWICE A DAY Start Date: 03/09/22 Status: Ordered Start: 02-11-2022 take 1 tablet by aziza th twice daily cloNIDine 0.1 mg tab 0.1 mg = 1 tab(s), Oral, BID Start Date: 02/11/22 Status: Ordered clopidogrel 75 mg oral tablet (10 sources) [id number] Platelet Inhibitor Start: 12-14-2023 take 1 tablet by mouth once daily clopidogrel (Plavix) 75 MG tablet Indications: Coronary artery disease involving pilot station coronary artery of pilot station heart without angina pectoris (CMS/HCC) Take 1 tablet (75 mg) by mouth Daily 90 tablet 3 04/17/2024 Active cyclobenzaprine hydrochloride 10 mg oral tablet (20 sources) Muscle Relaxant Start: 11-12-2024 take 1 tablet by mouth three times daily as needed for muscle spasms cyclobenzaprine (Flexeril) 10 MG tablet Indications: Chronic pain syndrome Take 1 tablet (10 mg) by mouth 3 (three) times a day as needed for muscle spasms 90 tablet 3 11/12/2024 Active Start: 03-09-2022 End: 09-26-2024 take 1 tablet [...] DULoxetine 30 mg delayed release oral capsule (3 sources) Serotonin and Norepinephrine Reuptake Inhibitor Start: 03-18-2025 End: 06-16-2025 take 1 capsule by mouth once daily DULoxetine (Cymbalta) [address] capsule Indications: Moderate episode of recurrent major depressive disorder (CMS/HCC) , Generalized anxiety disorder (CMS/HCC) , Degeneration of intervertebral disc of lumbar region with discogenic back pain and lower extremity pain , Radiculopathy, lumbar region Take 1 capsule (30 mg) by mouth Daily Do not crush or chew. 30 capsule 2 03/18/2025 06/16/2025 Active Start: 05-10-2024 End: 08-08-2024 take 2 tablets by mouth once daily duloxetine 30 mg oral delayed release capsule 60 mg = 2 cap(s), Oral, Daily, take one tablet in the am for the first week then take 2 tablets ongoing, X 30 day(s), # 60 cap(s), Refills(s) 2, Pharmacy: [id number], 175.3, cm, 05/10/24 13:57:00 EDT, Height/Length Dosing, 77.5, kg, 05/10/24 13:57:00 EDT, Weight Dosing Start Date: 05/10/24 Stop Date: 08/08/24 Status: Ordered furosemide 20 mg oral tablet (9 sources) Loop Diuretic Start: 08-31-2023 take 1 tablet by mouth once daily Lasix 20 mg Tab 20 mg = 1 tab(s), Oral, Daily, # 30 tab(s), Refills(s) 6, [id number], 175, cm, 09/29/23 15:16:00 EST, Height/Length Dosing, 73.7, kg, 09/29/23 15:16:00 EST, Weight Dosing Start Date: 11/11/23 Status: Ordered gabapentin 300 mg oral capsule (20 sources) Anti-epileptic Agent Start: 01-09-2025 take 3 capsules by mouth in the morning, then take 3 capsules by mouth in the evening, then take 3 capsules by mouth at bedtime gabapentin (Neurontin) 300 MG capsule Indications: Other chronic pain Take 3 capsules (900 mg) by mouth in the morning and 3 capsules (900 mg) in the evening and 3 capsules (900 mg) before bedtime. 270 capsule 3 01/09/2025 Active Start: 03-09-2022 take 3 capsules by m outh in the morning, then take 3 capsules [...] mononitrate 60 mg extended release oral tablet (17 sources) Nitrate Vasodilator Start: 06-15-2024 End: 07-23-2024 take 1 tablet by mouth once daily isosorbide mononitrate ER (Imdur) 60 MG 24 hr tablet Indications: Coronary artery disease involving pilot station coronary artery of pilot station heart without angina pectoris (CMS/HCC) Take 1 tablet (60 mg) by mouth Daily 07/23/2024 Active Start: 09-29-2023 End: 07-23-2024 take 1 tablet by mouth once daily isosorbide mononitrate ER (Imdur) 30 MG 24 hr tablet Indications: Coronary artery disease involving pilot station coronary artery of pilot station heart without angina pectoris (CMS/HCC) Take 1 tablet (30 mg) by mouth Daily Do not crush or chew. 90 tablet 3 02/06/2024 Active lisinopril 10 mg oral tablet (20 sources) Angiotensin Converting Enzyme Inhibitor Start: 02-11-2022 take 1 tablet by mouth once daily lisinopril 10 mg Tab TAKE 1 TABLET BY MOUTH EVERY DAY FOR 90 DAYS Start Date: 03/09/22 Status: Ordered nitroglycerin 0.4 mg sublingual tablet (9 sources) Nitrate Vasodilator Start: 05-10-2024 nitroglycerin 0.4 mg sublingual Tab Refills(s) 0 Start Date: 05/10/24 Status: Ordered Start: 12-16-2023 nitroglycerin (Nitrostat) 0.4 MG SL tablet Indications: Coronary artery disease involving pilot station coronary artery of pilot station heart with angina pectoris (CMS/HCC) Place 1 tablet (0.4 mg) under the tongue every 5 (five) minutes if needed for chest pain 25 tablet 3 12/16/2023 Active pantoprazole 40 mg delayed release oral tablet (8 sources) Proton Pump Inhibitor Start: 02-17-2024 End: 11-03-2025 take 1 tablet by mouth once daily pantoprazole (ProtoNix) 40 MG EC tablet Indications: Gastroesophageal Reflux Disease Take 1 tablet (40 mg) by mouth Daily Do not crush, chew, or split. 90 tablet 3 11/08/2024 11/03/2025 Active 12 hr ranolazine 500 mg extended release oral tablet (13 sources) Anti-anginal Start: 12-14-2023 End: 02-04-2025 take 1 tablet by mouth every twelve hours in the morning ranolazine (Ranexa) 500 MG 12 hr tablet Indications: Coronary artery disease involving pilot station coronary artery of pilot station heart with angina pectoris (CMS/HCC) Take 1 tablet (500 mg) by mouth in the morning and 1 tablet (500 mg) before bedtime. Do not crush, chew, or split. 60 tablet 11 02/04/2025 Active Start: 09-29-2023 take 1 tablet by aziza th twice daily Ranexa 500 mg Tab-ER 500 mg = 1 tab(s), Oral, BID, # 60 tab(s), Refills(s) 3, Pharmacy: [facility]/pharmacy #[id number], 175, cm, 09/29/23 15:16:00 EST, [...] BID, # 60 tab(s), Refills(s) 6, Pharmacy: [facility]/pharmacy #[id number], 175, cm, 09/29/23 15:16:00 EST, Height/Length Dosing, 73.7, kg, 09/29/23 15:16:00 EST, Weight Dosing Start Date: 11/11/23 Status: Ordered Start: 08-31-2023 take 1 tablet by aziza th twice daily ticagrelor 90 mg oral tablet 90 mg = 1 tab(s), Oral, BID, # 60 tab(s), Refills(s) 0, Pharmacy: [facility]/pharmacy #[id number], 175, cm, 08/29/23 16:51:00 EST, [...] rk excuse, 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 in approximately 2 weeks., Print Requisition, Supply Start Date: 08/31/23 Status: Ordered Completed/Discontinued Medications Medication Drug Class(es) Dates Sig (Normalized) Sig (Original) amLODIPine 2.5 mg oral tablet (6 sources) Dihydropyridine Calcium Channel Alfonzo Start: 07-23-2024 End: 03-18-2025 take 1 tablet by mouth once daily amLODIPine (Norvasc) 2.5 MG tablet Indications: Primary hypertension (CMS/HCC) Take 1 tablet (2.5 mg) by mouth Daily 30 tablet 5 07/23/2024 03/18/2025 Discontinued (Therapy completed) carvedilol 25 mg oral tablet (20 sources) alpha-Adrenergic Alfonzo, beta-Adrenergic Alfonzo Start: 03-07-2024 End: 03-18-2025 take 0.5 tablet by mouth in the morning carvedilol (Coreg) 25 MG tablet Indications: Essential hypertension (CMS/HCC) Take 0.5 tablets (12.5 mg) by mouth in the morning and 0.5 tablets (12.5 mg) in the evening. Take with meals. 30 tablet 3 03/07/2024 03/18/2025 Discontinued (Therapy completed) Start: 09-29-2023 take 1 tablet by aziza th twice daily carvedilol 6.25 mg Tab 6.25 mg = 1 tab(s), Oral, BID, # 60 tab(s), Refills(s) 6, Pharmacy: [facility]/pharmacy #[id number], 175, cm, 09/29/23 15:16:00 EST, Height/Length Dosing, 73.7, kg, 09/29/23 15:16:00 EST, Weight Dosing Start Date: 2/2/24 Status: Ordered Start: 08-31-2023 take 1 tablet by aziza th twice daily carvedilol 3.125 mg Tab 3.125 mg = 1 tab(s), Oral, BID, # 60 tab(s), Refills(s) 0, [id number], 175, cm, 08/29/23 16:51:00 EST, Height/Length Dosing, 83.7, kg, 08/29/23 16:51:00 EST, Weight Dosing Start Date: 08/31/23 Status: Ordered take 1 tablet by aziza th in the morning carvedilol (Coreg) 3.125 MG tablet Take 3.125 mg by mouth in the morning and 3.125 mg in the evening. Take with meals. Active losartan potassium 100 mg oral tablet (16 sources) Angiotensin 2 Receptor Alfonzo Start: 02-17-2024 End: 03-18-2025 take 0.5 tablet by mouth in the morning losartan (Cozaar) 100 MG tablet Indications: Essential hypertension (CMS/HCC) Take 0.5 tablets (50 mg) by mouth in the morning and 0.5 tablets (50 mg) before bedtime. 90 tablet 3 02/17/2024 03/18/2025 Discontinued Start: 12-09-2023 take 1 tablet by aziza twice daily losartan 25 mg Tab 25 mg = 1 tab(s), Oral, BID, # 60 tab(s), Refills(s) 0, [id number], 175, cm, 12/09/23 1:00:00 EST, Height/Length Dosing, 75.7, kg, 12/09/23 1:00:00 EST, Weight Dosing Start Date: 12/09/23 Status: Ordered Start: 11-11-2023 losartan 50 mg Tab 25 mg = 0.5 tab(s), Oral, Daily, # 15 tab(s), Refills(s) 6, Pharmacy: [facility]/pharmacy #[id number], 175, cm, 09/29/23 15:16:00 EST, Height/Length Dosing, 73.7, kg, 09/29/23 15:16:00 EST, Weight Dosing Start Date: 11/11/23 Status: Ordered Start: 08-31-2023 losartan 50 mg Tab 25 mg = 0.5 tab(s), Oral, Daily, # 30 tab(s), Refills(s) 0, Pharmacy: [facility]/pharmacy #[id number], 175, cm, 08/29/23 16:51:00 EST, Height/Length Dosing, 83.7, kg, 08/29/23 16:51:00 EST, Weight Dosing Start Date: 08/31/23 Status: Ordered take 1 tablet by aziza th at bedtime losartan (Cozaar) 50 MG tablet Take 50 mg by mouth at bedtime Active methylPREDNISolone (20 sources) Corticosteroid Start: 09-28-2017 Depo-Medrol 40 mg Sep, Start: 08-05-2015 Depo-Medrol 80 mg Jul, Start: 06-12-2015 Depo-Medrol 80 mg Jun, 80 mg Start: 04-22-2015 Depo-Medrol 80 mg Apr, 80 mg Start: 01-15-2015 Depo-Medrol 80 mg Jan, 80 mg Triamcinolone (20 sources) Corticosteroid Start: 05-12-2016 Kenalog -40 mg May, 40 mg Problems Active Problems Problem Classification Problem Date Documented Date Episodic/Chronic Acute myocardial infarction (5 sources) ST elevation (STEMI) myocardial infarction of unspecified site; Translations: [Myocardial infarction] Onset: 3 Chronic Anxiety disorders (20 sources) Generalized anxiety disorder; Translations: [Generalized anxiety disorder] Onset: 3 09-06-2023 Chronic Asthma (20 sources) Exacerbation of asthma; Translations: [Unspecified asthma with (acute) exacerbation] Onset: 3 Chronic Complication of device; implant or graft (2 sources) Pain due to nervous system prosthetic devices, implants and grafts, initial encounter; Translations: [Pain due to nervous system prosth dev/grft, init] Onset: 3 Episodic Complications of surgical procedures or medical care (5 sources) Infection following a procedure, subsequent encounter; Translations: [Disruption of external operation (surgical) wound, not elsewhere classified, initial encounter] Onset: 8 Episodic Congestive heart failure; nonhypertensive (4 sources) Congestive heart failure 12-09-2023 Chronic Coronary atherosclerosis and other heart disease (20 sources) Coronary atherosclerosis; Translations: [Atherosclerotic heart disease of pilot station coronary artery without angina pectoris] Onset: 3 Chronic Disorders of lipid metabolism (20 sources) Hyperlipidemia; Translations: [Hyperlipidemia, unspecified] Onset: 3 Chronic E Codes: Adverse effects of medical drugs (2 sources) Diuretic adverse reaction; Translations: [Adverse effect of carbonic-anhydrase inhibitors, benzothiadiazides and other diuretics, subsequent encounter] 03-18-2025 Episodic Essential hypertension (15 sources) Essential (primary) hypertension; Translations: [Essential hypertension] Onset: Chronic Headache; including migraine (20 sources) Migraine; Translations: [Other migraine, not intractable, without status migrainosus] Onset: 3 09-06-2023 Chronic Hyperplasia of prostate (7 sources) Hyperplasia of prostate; Translations: [Benign prostatic hyperplasia with lower urinary tract symptoms] Onset: 3 09-06-2023 Chronic Hypertension with complications and secondary hypertension (5 sources) Hypertensive emergency; Translations: [Hypertensive emergency] Onset: Chronic Malaise and fatigue (2 sources) Fatigue; Translations: [Chronic fatigue, unspecified] 03-18-2025 Chronic Miscellaneous mental health disorders (2 sources) Psychophysiologic insomnia; Translations: [Psychophysiologic insomnia] 03-19-2025 Chronic Mood disorders (20 sources) Mild recurrent major depression; Translations: [Major depressive disorder, recurrent episode, mild] Onset: 3 07-23-2024 Chronic Nonspecific chest pain (5 sources) Chest pain; Translations: [Chest pain, unspecified] Onset: 4 Episodic Osteoarthritis (1 source) Unspecified osteoarthritis, unspecified site; Translations: [Unspecified osteoarthritis, unspecified site] Onset: 3 Chronic Other aftercare (2 sources) Other tank terminal gauger (current) drug therapy; Translations: [OTH POULTRY HATCHERY SUPERVISOR CURRENT DRUG THERAPY] Onset: 3 Episodic Other aftercare (1 source) Long-term current use of drug therapy; Translations: [Other tank terminal gauger (current) drug therapy] Onset: 4 Episodic Other aftercare (2 sources) Encounter for follow-up examination after completed treatment for conditions other than malignant neoplasm; Translations: [Unspecified follow-up examination] 03-17-2025 Episodic Other aftercare (2 sources) Drug therapy finding; Translations: [Other tank terminal gauger (current) drug therapy] 03-18-2025 Episodic Other circulatory disease (7 sources) Ectatic coronary artery; Translations: [Other specified disorders of arteries and arterioles] Onset: 3 09-06-2023 Chronic Other connective tissue disease (20 sources) History of lumbar fusion; Translations: [Arthrodesis status] Episodic Other connective tissue disease (1 source) Arthrodesis status Episodic Other infections; including parasitic (7 sources) Late effects of other and unspecified infectious and parasitic diseases; Translations: [COVID-19 long hauler] Onset: 3 09-06-2023 Chronic Other nervous system disorders (20 sources) Chronic pain; Translations: [Other chronic pain] Onset: 3 Chronic Other nervous system disorders (20 sources) Other chronic pain; Translations: [Other chronic pain] Onset: 1 Resolved: 2 Chronic Other nervous system disorders (1 source) Chronic pain syndrome; Translations: [Chronic pain syndrome] Onset: 3 Chronic Other nervous system disorders (1 source) Other chronic pain; Translations: [Other chronic pain] Onset: 2 Chronic Other nervous system disorders (1 source) Polyneuropathy; Translations: [Polyneuropathy, unspecified] Onset: 3 Chronic Other nervous system disorders (3 sources) Chronic pain syndrome; Translations: [Chronic pain syndrome] 07-23-2024 Chronic Other non-traumatic joint disorders (20 sources) Knee pain; Translations: [Pain in left knee] Episodic Other screening for suspected conditions (not mental disorders or infectious disease) (6 sources) Patient encounter status; Translations: [Encounter for screening for malignant neoplasm of colon] Onset: 4 07-23-2024 Episodic Other upper respiratory disease (20 sources) Allergic rhinitis; Translations: [Allergic rhinitis, unspecified] Chronic Other upper respiratory infections (20 sources) Sinusitis; Translations: [Chronic sinusitis, unspecified] Chronic Residual codes; unclassified (4 sources) Postprocedural state finding; Translations: [Presence of other specified functional implants] Onset: 5 03-19-2025 Chronic Residual codes; unclassified (2 sources) Tobacco use; Translations: [Tobacco use] Onset: 8 Episodic Residual codes; unclassified (20 sources) Postprocedural state finding; Translations: [Other specified postprocedural states] Episodic Residual codes; unclassified (1 source) Tobacco user; Translations: [Tobacco use] Onset: 3 Episodic Spondylosis; intervertebral disc disorders; other back problems (20 sources) Other intervertebral disc displacement, lumbar region; Translations: [Other intervertebral disc degeneration, lumbar region] Onset: 8 Resolved: 5 Chronic Substance-related disorders (20 sources) Smoker; Translations: [Tobacco dependence syndrome] Onset: 3 03-09-2022 Chronic Comment on above: Added secondary to d ocumentation in Social History. Added secondary to d ocumentation in Social History. Substance-related disorders (20 sources) Continuous opioid dependence; Translations: [Opioid use, unspecified, uncomplicated] Onset: 1 Resolved: 2 Episodic Unclassified (1 source) lumbar radicupathy Onset: 8 Past or Other Problems Problem Classification Problem [...] Onset: 01-17-2018 Episodic Other nervous system disorders (7 sources) Impairment of balance; Translations: [Other abnormalities of gait and mobility] Onset: 02-01-2024 Resolved: 03-19-2025 02-01-2024 Episodic Spondylosis; intervertebral disc disorders; other back problems (20 sources) Radiculopathy, lumbar region; Translations: [Low back pain] Onset: 01-17-2018 Resolved: 03-19-2025 Episodic Unclassified (1 source) Other low back pain M54.59 Onset: 01-15-2022 Resolved: 01-15-2022 Unclassified (4 sources) Stent, device (physical object) 12-09-2023 Results Test Name Value Interpretation Reference Range Facility Office Visiton 03-07-2025 Follow-up visit [id number] [place] [facility] prince P 1980 M Date Provider Department Center 03/07/2025 271-BELL BALLARD Family History Problem Relation Age of Onset Heart attack Mother 56 Heart attack Maternal Grandfather Family Status - Relation Status Age at Mother Maternal Grandfather Level of Service:12606 [place] OFFICE/OUTPATIENT ESTABLISHED MOD MDM 30 MIN Normal [facility] Office [facility] 12-17-2024 Follow-up visit [id number] [place] Lant[facility] prince P 1980 [facility] Provider Department Center 12/17/2024 ISADORA BAUMANN Family History Problem Relation Age of Onset Heart attack Mother 56 Heart attack Maternal Grandfather Family Status - Relation Status Age at Mother Maternal Grandfather Level of Service:51950 [place] OFFICE/OUTPATIENT ESTABLISHED LOW MDM 20 MIN Normal [facility] Office [facility] 06-15-2024 Follow-up visit [id number] [place] L[facility]ua prince P 1980 [facility] Provider Department Center 06/15/2024 ISADORA BAUMANN Family History Problem Relation Age of Onset Heart attack Mother 56 Heart attack Maternal Grandfather Family Status - Relation Status Age at Mother Maternal Grandfather Level of Service:11212 [place] OFFICE/OUTPATIENT ESTABLISHED LOW MDM 20 MIN Normal [facility] 05-24-2024 --- Attestation signed by Isadora Bustos MD at 05/24/2024 11:17 AM H and [...] these risks and wishes to proceed. Isadora Bustos MD H&P reviewed. The patient was examined [...] to proceed. Signed, Berna Tabares MD PGY-4 Supply Technician Pager: [phone] [facility] NURSNOTEon 05-24-2024 NURSNOTE RN educated pt on d/ c instructions. RN encouraged pt to voice any questions or concerns. Pt verbalizes no questions or concerns at this time. Pt was wheeled off of unit with all of belongings. [facility] HPon 05-04-2024 Cardiology Clinic No te [...] Primary hypertension 4. Coronary artery disease involving pilot station coronary artery of pilot station heart, unspecified whether angina present 5. Tobacco [...] defibrillation, need (more content not included)... Normal [facility] Office [facility] 05-04-2024 Follow-up visit [id number] [place] Lantigua prince P 1980 M Date Provider Department Center 05/04/2024 ISADORA BAUMANN Family History Problem Relation Age of Onset Heart attack Mother 56 Heart attack Maternal Grandfather Family Status - Relation Status Age at Mother Maternal Grandfather Level of Service:23993 [place] OFFICE/OUTPATIENT ESTABLISHED MOD MDM 30 MIN Normal [facility] Orders Onlyon 05-04-2024 Orders Only [id number] [place] [facility]ua prince P 1980 M Date Provider Department Center 05/04/2024 JAVIER SANDERS Family History Problem Relation Age of Onset Heart attack Mother 56 Heart attack Maternal Grandfather Family Status - Relation Status Age at Mother Maternal Grandfather Normal [facility] Office Visiton 04-06-2024 Follow-up visit [id number] [place] Lantigua prince P 1980 [facility] Provider Department Center 04/06/2024 ISADORA BAUMANN Family History Problem Relation Age of Onset Heart attack Mother 56 Heart attack Maternal Grandfather Family Status - Relation Status Age at Mother Maternal Grandfather Level of Service:21642 [place] OFFICE/OUTPATIENT NEW MODERATE MDM 45 MINUTES [facility] Referrals Officeon 4 Referrals Office [id number] TIFF Normal [facility] BMPon 12-09-2023 Anion gap [Moles/Vol] 12 mmol/L Normal 6-16 [facility] Comment on above: Performed By: #### 2 415254, 6104290, 29814543, 66445674, 95005129 ####[facility] [address] [place] [address] Calcium [Mass/Vol] 9.4 mg/dL Normal 8.9-11.1 [facility] Comment on above: Performed By: #### 2 917355, 9704618, 34387687, 69964317, 83165628 ####[facility] [address] [place] [address] Chloride [Moles/Vol] 105 mmol/L Normal 101-111 [facility] Comment on above: Performed By: #### 2 580543, 2936496, 23531783, 46436038, 98208893 ####[facility] [address] [place] [address] CO2 [Moles/Vol] 26 mmol/L Normal 21-31 [facility] Comment on above: Performed By: #### 2 464380, 7208475, 67889643, 40683472, 56385115 ####[facility] [address] [place] [address] Creatinine [Mass/Vol] 1.6 mg/dL High 0.5-1.3 [facility] Comment on above: Performed By: #### 2 077662, 3737356, 35947843, 20683539, 51737383 ####[facility] [address] [place] [address] Glucose [Mass/Vol] 110 mg/dL Normal 55-199 [facility] Comment on above: Performed By: #### 2 202300, 6474755, 12711283, 96456098, 52183102 ####[facility] [address] [place] [address] Potassium [Moles/Vol] 4.1 mmol/L Normal 3.5-5.3 [facility] Comment on above: Performed By: #### 2 967413, 7327259, 67036608, 36149007, 69555248 ####[facility] [address] [place] [address] Sodium [Moles/Vol] 139 mmol/L Normal 135-145 [facility] Comment on above: Performed By: #### 2 096057, 7000527, 60357289, 34152125, 73154236 ####[facility] [address] [place] [address] Urea nitrogen [Mass/Vol] 15 mg/dL Normal 5-21 [facility] Comment on above: Performed By: #### 2 638011, 9092016, 18367150, 44962128, 95167760 ####[address] [address] Urea nitrogen/Creatinine [Mass ratio] 9 No Units Low 10-20 [facility] Comment on above: Performed By: #### 2 442200, 0516201, 77943534, 34804162, 96351023 ####[address] [address] CBC w/ Auto Diffon 4 Basophils/100 WBC (Bld) 1.0 % Normal 0.0-2.0 [facility] Comment on above: Performed By: #### 2 903031, 8588397, 99682383, 34658430, 02022408 ####[address] [address] Basophils/Leukocytes Auto (Bld) [Pure # fraction] 0.1 E9/L Normal 0.0-0.2 [facility] Comment on above: Performed By: #### 2 523183, 5480542, 28966933, 88472040, 53733047 ####[address] [address] Eosinophils (Bld) [#/Vol] 0.6 E9/L High 0.0-0.5 [facility] Comment on above: Performed By: #### 2 914816, 2727444, 93689851, 26856504, 75304254 ####[address] [address] Eosinophils/100 WBC (Bld) 5.8 % Normal 0.0-8.0 [facility] Comment on above: Performed By: #### 2 337813, 9819554, 50043720, 24273027, 85879247 ####[address] [place] [address] Erythrocyte distribution width (RBC) [Ratio] 16.4 % High 10.9-14.2 [facility] Comment on above: Performed By: #### 2 221932, 7135598, 83951359, 48172111, 32656924 ####[address] [place] [address] Hematocrit (Bld) [Volume fraction] 39.8 % Normal 37.7-49.0 [facility] Comment on above: Performed By: #### 2 878665, 9691898, 60949859, 67168960, 72836354 ####[address] [address] Hemoglobin (Bld) [Mass/Vol] 13.8 g/dL Normal 13.5-17.5 [facility] Comment on above: Performed By: #### 2 564177, 6917438, 08208972, 49570546, 13686797 ####[address] [address] Lymphocytes (Bld) [#/Vol] 3.1 E9/L Normal 1.0-4.0 [facility] Comment on above: Performed By: #### 2 737635, 4368063, 32573756, 86003461, 47483054 ####[address] [address] Lymphocytes/100 WBC (Bld) 28.6 % Normal 14.0-50.0 [facility] Comment on above: Performed By: #### 2 101851, 5144909, 19678852, 34436511, 72637189 ####[address] [address] MCH (RBC) [Entitic mass] 29.9 pg Normal 27.0-34.0 [facility] Comment on above: Performed By: #### 2 123972, 7445143, 75797354, 53018842, 28844818 ####[address] [address] MCHC (RBC) [Mass/Vol] 34.7 g/dL Normal 31.4-36.0 [facility] Comment on above: Performed By: #### 2 215413, 9477600, 66946691, 25096542, 37165361 ####[address] [address] MCV (RBC) [Entitic vol] 86.2 fL Normal 80.0-100.0 [facility] Comment on above: Performed By: #### 2 846458, 3936811, 38646881, 68432372, 22013679 ####[address] [address] Monocytes (Bld) [#/Vol] 0.6 E9/L Normal 0.2-1.0 [facility] Comment on above: Performed By: #### 2 203043, 8355800, 99646141, 29422914, 51024714 ####[address] [address] Neutrophils (Bld) [#/Vol] 6.3 E9/L Normal 2.0-7.5 [facility] Comment on above: Performed By: #### 2 419588, 9352350, 29434432, 12596134, 85140384 ####[address] [address] Neutrophils/100 WBC (Bld) 59.1 % Normal 36.0-75.0 [facility] Comment on above: Performed By: #### 2 096800, 0983329, 42746962, 74922173, 89665832 ####[address] [address] Platelet mean volume (Bld) [Entitic vol] 8.2 fL Normal 6.4-10.8 [facility] Comment on above: Performed By: #### 2 931785, 9172205, 56236346, 57769273, 37405286 ####[facility] [address] [place] [address] Platelets (Bld) [#/Vol] 308.0 E9/L Normal 150.0-500.0 [facility] Comment on above: Performed By: #### 2 404466, 0018000, 92739545, 46240526, 82825374 ####[facility] [address] [place] [address] RBC (Bld) [#/Vol] 4.6 E12/L Normal 4.3-5.9 [facility] Comment on above: Performed By: #### 2 385092, 4674114, 57448148, 27163339, 09850306 ####[facility] [address] [place] [address] WBC corrected for nucl RBC Auto (Bld) [#/Vol] 10.7 E9/L Normal 4.0-11.0 [facility] Comment on above: Performed By: #### 2 486007, 4796277, 22430469, 03900513, 33604590 ####[facility] [address] [place] [address] CHEMISTRYOrdered By: SYSTEM SYSTEM on 12-09-2023 Troponin [...] High Sensitivity Troponin I Instructions For Use, [employer], May 2018) Troponin 11.80 pg/mL Low 15.90 - 38.40 pg/mL [facility] Comment on above: Interpretive Data: T he 95% CI (Confidence Interval) PPV (Positive Predictive Value) for myocardial infarction in females is 38 pg/mL, in males 51 pg/mL. The results should be used in conjunction with clinical conditions of myocardial infarction. (Access High Sensitivity Troponin I Instructions For Use, [employer], May 2018) Cholesterol [Mass/Vol] 171 mg/dL Normal [...] High Sensitivity Troponin I Instructions For Use, [employer], May 2018) Anion gap [Moles/Vol] 12 mmol/L [...] [facility] CHEMISTRYOrdered By: Nathalia Block on 03-01-2024 HbA1c (Bld) [Mass fraction] 6.1 % High <=5.9% [facility] ChemAutoSS COAGULATIONOrdered By: Isi Longoria on 12-09-2023 aPTT Coag (PPP) [Time] 34.7 s Normal 25.1 - 36.5 second(s) [facility] Auto Coag Comment on above: Interpretive Data: [...] the same coagulation reagent and instrumentation as [facility]. Currently there are no coagulation studies available worldwide for children to 14 days, and no normal ranges. Heparin therapeutic range (represented by Anti-Factor Xa activity of 0.2 - 0.4 U/mL) corresponds to PTT of 56.6 - 109.0 sec. INR Coag (PPP) [Relative time] 0.97 {INR} Invalid Interpretation Code [facility] Auto Co[facility] Comment on above: Interpretive Data: I NR results are specifically intended to assess patients stabilized on long-term Anticoagulation therapy suggested INR s Less Intensive Anticoagulation 2.0 3.0 Conventional Range 3.0 4.5 PT Coag (PPP) [Time] 10.9 s Normal 9.4 - 1 2.5 second(s) [facility] Auto Coag Comment on above: Interpretive Data: [...] the same coagulation reagent and instrumentation as [facility]. Currently there are no coagulation studies available worldwide for children to 14 days, and no normal ranges. Consent for Treatmenton Consent for Treatment [id number] IFF Normal [facility] Consultation Noteon 12-09-19 Consultation Note Chief [...] not improve he sought medical attention at [facility] emergency room. In the emergency room an [...] STEMI due to plaque rupture and acute WY of the mid LAD, status post primary [...] patient will additionally be counseled by the International Trade Analyst team and in follow-up. [1] Subsequent echocardiogram [...] thoughts. Assessment (more content not included)... Normal [facility] Comment on above: Result Comment: Elec tronically Signed By: ZACH RODNEY, Frank Westbrook\.br\Date and Time Signed: 12/09/23 08:13 EST Discharge Instructionson Discharge Instructions [id number] IFF Normal [facility] Discharge Note-Nursingon Discharge Note-Nursing DENISE LANTIGUA :1980 Visit Date:12/09/2023 Inpatient Discharge Instructions Your Care Team Admitting Physician - Dora RHODES DO Consulting Physician - [facility] Cardio, XXXX ZACH RODNEY, Frank Westbrook Reason for Your Visit Pt. reports high blood pressure that past few days and is now associatted with chest pain. 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 This Is Your Medications List [facility] Prescription (work excuse) acetaminophen-oxycodone (Percocet 325 mg-5 [...] Pending Diagnostic Test Results None Pharmacy Information [facility] Discharge Instructions Please return to ER if symptoms change or worsen. Please take medication as prescribed. Please monitor blood pressure. Please follow-up with cardiology New Follow Up Appointments after Discharge Follow Up with KATIE SALGUERO When: 12/14/2023 10:30 AM EST Where: [address], [address] [place] [address]- Business (1) Follow Up with Rebekah RODNEY, Denise Valdez When: Within 1 to 2 weeks Comments: Call for followup appointment Call physician if symptoms worsen Where: [place] [address]- Business (1) Medications What How Much When Instructions Next Dose Changed losartan (losartan 25 mg Tab) 1 Tablets By Mouth 2 times a day Pickup at [facility]/pharmacy #[id number] 12/08 @ 9 PM Unchanged acetaminophen-oxycodone (Percocet 325 mg-5 mg Tab) TAKE 1 TABLET BY MOUTH NEEDED UP TO 3 TIMES DAILY NEEDED FOR PAIN Unchanged acetaminophen-oxycodone (Percocet 5 mg-325 mg oral tablet) DUPLICATE ENTRY Unchanged aspirin (aspirin 81 mg Oral EC Tab) 1 Tablets By Mouth Every day 12/09 @ 9 AM Unchanged atorvastatin (atorvastatin 80 [...] MOUTH 3 TIMES A DAY 12/08 @ PM Unchanged isosorbide mononitrate (isosorbide mononitrate 30 mg ER Tab) 1 Tablets By Mouth Once a day (in the morning) 12/09 9 AM Unchanged Misc Prescription (work excuse) 0 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 in approximately 2 weeks. N/A Unchanged ranolazine (Ranexa 500 mg Tab-ER) 1 Tablets By Mouth 2 times a day 12/09 @ 9 AM Unchanged ticagrelor (ticagrelor 90 mg oral tablet) 1 Tablets By Mouth 2 times a day 12/08 @ 9 PM Pharmacy Information [facility]/pharmacy #[id number]: [address] [place], [place] [id number] [phone] What When Comments Stop Taking albuterol Test [...] (12/09/23 01:05:00) (more content not included)... Normal [facility] ED Clinical Summaryon 2023 ED Clinical Summary (Inserted Image. Aida ble to display) [place] [address] ED Clinical Summary Person Information Name: DENISE LANTIGUA/[facility] Age: 43 Years : 1980 Sex: Male Language: [place] PCP: KATIE SALGUERO DO Marital Status: Single Visit Id: Visit Reason: Shortness of breath; Chest pain; HIGH BP - CHEST PAIN/ LEFT ARM PAIN Speciality: Acuity: 2 Enc Type: Observation Med Service: Emergency Arrival: 12/09/2023 00:52:27 Discharge: LOS: 000 01:43 Checkin: 12/09/2023 00:52:27 Checkout: 12/09/2023 02:35:47 Dispo Type: Admitted as IP to this [facility] EVENTS: Event Name Event Status Request [...] 02:10:12 Patient Care Request 12/09/2023 02:10:12 ADDRESS: [address] [facility] [id number] PHYS DOC NOTES: MEDICAL INFORMATION: Prescriptions Given: [...] excuse) 0. 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 in approximately 2 weeks.. Refills: 0. ranolazine (Ranexa 500 mg Tab-ER) 1 Tablets By Mouth 2 times a day. Refills: 3. ticagrelor (ticagrelor 90 mg oral tablet) 1 Tablets By Mouth 2 times a day. Refills: 6. PATIENT EDUCATION INFORMATION: Instructions: Follow up: DIAGNOSIS: Chest pain; Hypertensive emergency Normal [facility] ED Note-Physicianon 12-09-19 ED Note-Physician Basic Information Time Seen: Valentin Warner DO 12/09/2023 00:55 Chief Complaint Pt. reports high blood pressure that past few days and is now associatted with chest pain. History of Present Illness HPI: Patient is a 43-year-old male with past medical history of of WY with stent, hypertension, hyperlipidemia, CHF who presents [...] and Complexity of Problems Differential Diagnosis: [] [facility] Data External documents reviewed: N/A My EKG [...] Tab, 0. (more content not included)... Normal [facility] Comment on above: Result Comment: Elec tronically Signed By: Valentin Warner DO\.br\Date and Time Signed: 12/09/23 02:05 EST ED Patient Education Noteon 12-09-2023 ED Patient Education Note Normal [facility] ED Patient Summaryon 024 ED Patient Summary (Inserted Image. Aida ble to display) [address] [address] Patient Discharge Instructions Person Information Name: DENISE LANTIGUA Age: 43 Years Arrival Date: 12/09/2023 00:52:27 Discharge Diagnosis: Chest pain; Hypertensive emergency Primary Care Physician: KATIE SALGUERO DO Provider Information Primary Provider: Valentin Warner DO Advanced Gift Shop Assistant:None The exam and treatment you received in the Emergency Department were for an urgent problem and are not intended as complete care. It is important that you follow up with a doctor, nurse practitioner, or physician?s workers compensation claims assistant for ongoing care. If your symptoms [...] opioids can be used to help relieve lbuhlwps-dc-rxbccs pain and are often prescribed following a [...] be struggling with addiction, tell your health regular senior care provider and ask for guidance or call [facility]?S National Helpline at 4-573-261-EFTC. Source: [place] Department of Health and Human Services/Center for Disease Control & Prevention [facility] Medications Given: Medication Dose Route asp (more content not included)... Normal [facility] HEMATOLOGYOrdered By: SYSTEM SYSTEM on 12-09-2023 [...] Normal 4.0 - 11.0 E9/L Remisol Heme [id number] 12-09-2023 HbA1c (Bld) [Mass fraction] 6.1 % High <=5.9 [facility] Comment on above: Performed By: #### 1 8786901, 6825568, 7641541, 1328463 #### [facility] [address] [place] [address] Inpatient Clinical Summaryon 12-09-2023 Inpatient Clinical Summary [address] [address] Clinical Summary Person Information: Name: DENISE LANTIGUA Age: 43 Years : 1980 Sex: Male PCP: KATIE SALGUERO DO Marital Status: Single Race: White Ethnicity: Non- or Language: [place] Visit Id: Visit Reason: Shortness of breath; Chest pain; HIGH BP - CHEST PAIN/ LEFT ARM PAIN Speciality: Acuity: Enc Type: Observation Med Service: Medical Arrival: 12/09/2023 00:52:27 Discharge: Dispo Type: Admitted as IP to this [facility] Address: [address] [place] [id number] Provider Notes: Diagnosis: 1:Chest pain; 2: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 in approximately 2 weeks.. Refills: 0. ranolazine (Ranexa 500 mg Tab-ER) 1 Tablets By Mouth 2 times a day. Refills: 3. ticagrelor (ticagrelor 90 mg oral tablet) 1 Tablets By Mouth 2 times a day. Refills: 6. Care Team Members: Attending Physician: Dora RHODES DO Consulting Physician: [facility] Cardio, XXXX; ZACH RODNEY, Frank Westbrook Referring Physician: Follow up: With: Address: When: Rebekah RODNEY, Denise Parada[address] [address] Business (1) Within 1 to 2 weeks Comments: Call for followup appointment Call physician if symptoms worsen With: Address: When: KATIE ENGEL , [address] [address] 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 , [address] [address] [facility] (1) 12/14/2023 10:30 AM In [...] Medications to Continue Taking That Have Changed [facility]/pharmacy #[id number], [address] [place], [place] [id number], [phone] START: losartan (losartan 25 mg Tab) 1 [...] excuse) 0. 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 in approximately 2 weeks.. Refills: 0. Last [...] 1 TABLET (more content not included)... Normal [facility] Insurance Correspondenceon 0 12-09-2023 Insurance Correspondence [id number]#[id number] TIFF Normal [facility] Interdisciplinary Note - Sunil e Manageron 12-09-2023 Interdisciplinary Note - Hand Driller Pt is awake and alert in bed, [...] board updated. probable DC home later today [facility] Comment on above: Result Comment: Elec tronically Signed By: Caesar DELACRUZ, Luzma\.anne\Date and Time Signed: 12/09/23 10:39 EST Lipid Panelon 12-09-2023 Cholesterol [Mass/Vol] 171 mg/dL Normal 120-200 [facility] Comment on above: Performed By: #### 1 0516325, 0913072, 7047317, 2225973 #### [facility] [address] [place] [address] Cholesterol in HDL [Mass/Vol] 28 mg/dL Invalid Interpretation Code [facility] Comment on above: Result Comment: '>= 60 LOW RISK' '<= 40 HIGH RISK' Performed By: #### 1 3192211, 2074919, 1203914, 9572425 #### [facility] [address] [place] [address] Cholesterol in LDL [Mass/Vol] 111 mg/dL Normal <=129 [facility] Comment on above: Performed By: #### 1 5206197, 5353841, 8945753, 4169958 #### [facility] [address] [place] [address] Cholesterol in VLDL [Mass/Vol] 66 mg/dL High 7-40 [facility] Comment on above: Performed By: #### 1 1470026, 4400556, 7578786, 8287226 #### [facility] [address] [place] [address] Triglyceride [Mass/Vol] 328 mg/dL High <=149 [facility] Comment on above: Performed By: #### 1 9761275, 7853917, 4955860, 3204153 #### [facility] [address] [place] [address] Monitor Recordon 12-09-2023 Monitor Record [id number]#[id number] TIFF Normal [facility] Monitor Record [id number]#1.00 TIFF Normal [facility] Monitor Record [id number] TIFF Normal [facility] Monitor Record [id number]#[id number] TIFF Normal [facility] PT & PTTon 12-09-2023 aPTT Coag (PPP) [Time] 34.7 second(s) Normal 25.1-36.5 [facility] Comment on above: Result Comment: Para [...] the same coagulation reagent and instrumentation as [facility]. Currently there are no coagulation studies available worldwide for children to 14 days, and no normal ranges. Heparin therapeutic range (represented by Anti-Factor Xa activity of 0.2 - 0.4 U/mL) corresponds to PTT of 56.6 - 109.0 sec. Performed By: #### 2 517822, 1687939, 16339620, 16445957, 95474234 ####[facility] [address] [place] [address] INR Coag (PPP) [Relative time] 0.97 {INR} Invalid Interpretation Code [facility] Comment on above: Result Comment: INR results are specifically intended to assess patients stabilized on long-term Anticoagulation therapy suggested INR?s ?Less Intensive Anticoagulation? 2.0 ? 3.0 Conventional Range 3.0 ? 4.5 Performed By: #### 2 390889, 3911516, 44672654, 58271929, 11390609 ####[facility] [address] [place] [address] PT Coag (PPP) [Time] 10.9 second(s) Normal 9.4-12.5 [facility] Comment on above: Result Comment: 15 [...] the same coagulation reagent and instrumentation as [facility]. Currently there are no coagulation studies available worldwide for children to 14 days, and no normal ranges. Performed By: #### 2 769137, 8204805, 37204531, 42318535, 64573411 ####[facility] [address] [place] [address] Patient Education - Texton 0 12-09-2023 Patient [...] Keep all follow-up visits. Medicines ? Take ceuf-avw-ltddrep and prescription medicines only as told by [...] For m (more content not included)... Normal [facility] Progress Note-Physicianon Progress Note-Physician Assessment/Plan 1. [...] time given negative troponin 2. 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 Hypertensive emergency (I16.1: Hypertensive emergency) 2/2 to above Losartan coreg imdur Hydralazine prn 4. Smoker (F17.200: Nicotine dependence, unspecified, uncomplicated) Nicotine patch prn Educate on smoking cessation 5. Chronic back pain (M54.9: Dorsalgia, unspecified) Gabapentin Oxycodone 6. On deep vein thrombosis (DVT) prophylaxis (Z79.899: Other tank terminal gauger (current) drug therapy) Enoxaparin 7. elevated Cr [...] RBC: 4.6 E12/L (12/09/23:05:00) HGB: 13.8 gm/dL (12/09/23 01:05:00) Hct: 39.8 % (12/09/23 01:05:00) MCV: 86.2 fL (12/09/23 01:05:00) MCH: 29.9 pg (12/09/23 01:05:00) MCHC: 34.7 gm/dL (12/09/23 01:05:00) RDW: 16.4 % High (12/09/23 01:05:00) Platelet: 308 E9/L (12/09/23 01:05:00) MPV: 8.2 fL (12/09/23 01:05:00) Neutro Auto: 59.1 % (12/09/23:05:00) Lymph Auto: 28.6 % (12/09/23 01:05:00) Glascock Auto: 5.5 % (12/09/23:05:00) Eos Auto: 5.8 % (12/09/23:05:00) Basophil Auto: 1 % (12/09/23:05:00) Neutro Absolute: 6.3 E9/L (12/09/23 01:05:00) Lymph Absolute: 3.1 E9/L (12/09/23 01:05:00) Glascock Absolute: 0.6 E9/L (12/09/23 01:05:00) Eos Absolute: 0.6 E9/L High (12/09/23:05:00) Basophil Absolute: 0.1 E9/L (12/09/23:05:00) PT: 10.9 second(s) (12/09/23 01:05:00) INR: 0.97 (12/09/23 01:05:00) PTT: 34.7 second(s) (12/09/23:05:00) Glucose Lvl: 110 [...] 07:20:00) Attestation I was present with the ALBERTO minaya for the service. I personally verified the history of present illness and performed the physical examination and medical decision making. I have verified all of the ALBERTO minaya's documentation for this encounter. 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 Normal [facility] Comment on above: Result Comment: Elec tronically Signed By: Xuan Her\.br\Date and Time Signed: 12/09/23 08:43 EST\.br\Electronically Co-Signed By: Durga Thompson DO\.br\Date and Time Co-Signed: 12/09/23 10:42 EST Troponin 0 Hr.on 12-09-2023 Troponin 13.30 pg/mL Low 15.90-38.40 [facility] Comment on above: Result Comment: The 95% CI (Confidence Interval) PPV (Positive Predictive Value) for myocardial infarction in females is 38 pg/mL, in males 51 pg/mL. The results should be used in conjunction with clinical conditions of myocardial infarction. (Access High Sensitivity Troponin I Instructions For Use, Martina [place], May 2018) Performed By: #### 2 [id number], [id number], [id number], [id number], [id number] ####[facility] [address] [place] [address] Troponin 3 Hr.on 12-09-2023 Troponin 14.30 pg/mL Low 15.90-38.40 [facility] Comment on above: Result Comment: The 95% CI (Confidence Interval) PPV (Positive Predictive Value) for myocardial infarction in females is 38 pg/mL, in males 51 pg/mL. The results should be used in conjunction with clinical conditions of myocardial infarction. (Access High Sensitivity Troponin I Instructions For Use, [employer], May 2018) Performed By: #### 1 [id number], 7606610, [id number], [id number] #### [facility] [address] [place] [address] Troponin 6 Hr.on 12-09-2023 Troponin 11.80 pg/mL Low 15.90-38.40 [facility] Comment on above: Result Comment: The 95% CI (Confidence Interval) PPV (Positive Predictive Value) for myocardial infarction in females is 38 pg/mL, in males 51 pg/mL. The results should be used in conjunction with clinical conditions of myocardial infarction. (Access High Sensitivity Troponin I Instructions For Use, [employer], May 2018) Performed By: #### 1 [id number] #### [facility] [address] [place] [address] Troponin 9 Hr.on 12-09-2023 Troponin 10.80 pg/mL Low 15.90-38.40 [facility] Comment on above: Result Comment: The 95% CI (Confidence Interval) PPV (Positive Predictive Value) for myocardial infarction in females is 38 pg/mL, in males 51 pg/mL. The results should be used in conjunction with clinical conditions of myocardial infarction. (Access High Sensitivity Troponin I Instructions For Use, [employer], May 2018) Performed By: #### 1 [id number], 8475937, [id number], [id number] #### [facility] [address] [place] [address] XR Chest Single Viewon 12-08 XR Chest Single View Exam Date/Time: 12/09/2023 01:13 EST Reason for Exam: Chest pain Report [facility] [phone] IMPRESSION: There are no acute cardiopulmonary changes. [...] mGy = na DAP = na Normal [facility] eGFRon 12-09-2023 eGFR 54 mL/min/1.73 m2 Low >=59 [facility] Comment on above: Order Comment: Order added by Discern Expert. Performed By: #### 2 [id number], 0139968, [id number], [id number], [id number] ####[facility] [address] [place] [address] Monitor Recordon 11-01-2023 Monitor Record [id number]#[id number] TIFF Normal [facility] Heart and Vascular Office/Cl inic Noteon 10-16-2023 Heart and Vascular Office/Clinic Note Chief Complaint f/u cath 08/29/23 History of Present Illness Denise Lantigua presents today for a follow-up evaluation of [place], primary PCI of the LAD, mild ischemic [...] Assessment/Plan Denise Lantigua has a history of [place], primary PCI of the LAD, mild ischemic [...] with voice recognition artificial intelligence software, specifically GlassesOff, Outside.in and or Little1. Substitutions may have occurred with voice recognition and artificial intelligence software. Documentation services were performed after patient or guardian consented to allow [employer] to record this visit. SUSAN graphic specialist and provider reviewed before signing. SUSAN: [...] in last 30 days Tobacco Use:., 09/29/2023 [facility] Comment on above: Result Comment: Elec tronically Signed By: Rebekah RODNEY, Denise Valdez\.br\Date and Time Signed: 10/16/23 20:26 EST\.br\Electronically Co-Signed By: Reba Nathan.br\Date and Time Co-Signed: 09/30/23 12:19 EST Formson 10-05-2023 Forms [id number] IFF [facility] Auto Diffon 08-31-2023 Basophils/100 WBC (Bld) 1.1 % Normal 0.0-2.0 [facility] Comment on above: Order Comment: Order Added by Discern Expert. Performed By: #### 1 [id number], 9213166, 6620670, 9804053 #### [facility] [address] [place] [address] Basophils/Leukocytes Auto (Bld) [Pure # fraction] 0.1 E9/L Normal 0.0-0.2 [facility] Comment on above: Order Comment: Order Added by Discern Expert. Performed By: #### 1 3546975, 1253724, 3412464, 1956028 #### [facility] [address] [place] [address] Eosinophils/100 WBC (Bld) 0.9 % Normal 0.0-8.0 [facility] Comment on above: Order Comment: Order Added by Juliana Expert. Performed By: #### 1 0583294, 1675068, 3543839, 5805161 #### [facility] [address] [place] [address] Eosinophils/Leukocyte s Auto (Bld) [Pure # fraction] 0.1 E9/L Normal 0.0-0.5 [facility] Comment on above: Order Comment: Order Added by Discern Expert. Performed By: #### 1 7008535, 3864918, 0805255, 5562213 #### [facility] [address] [place] [address] Lymphocytes/100 WBC (Bld) 30.8 % Normal 14.0-50.0 [facility] Comment on above: Order Comment: Order Added by Discern Expert. Performed By: #### 1 8735807, 0354723, 6910607, 2978207 #### [facility] [address] [place] [address] Lymphocytes/Leukocyte s Auto (Bld) [Pure # fraction] 3.2 E9/L Normal 1.0-4.0 [facility] Comment on above: Order Comment: Order Added by Discern Expert. Performed By: #### 1 1004897, 5078669, 3473310, 4910132 #### [facility] [address] [place] [address] Monocytes/100 WBC (Bld) 6.9 % Normal 4.0-14.0 [facility] Comment on above: Order Comment: Order Added by Discern Expert. Performed By: #### 1 0877061, 8532929, 1854448, 6744354 #### [facility] [address] [place] [address] Monocytes/Leukocytes Auto (Bld) [Pure # fraction] 0.7 E9/L Normal 0.2-1.0 [facility] Comment on above: Order Comment: Order Added by Discern Expert. Performed By: #### 1 3929656, 1435760, 0539912, 3811978 #### [facility] [address] [place] [address] Neutrophils/100 WBC (Bld) 60.3 % Normal 36.0-75.0 [facility] Comment on above: Order Comment: Order Added by Discern Expert. Performed By: #### 1 7012890, 6065140, 1962083, 0749453 #### [facility] [address] [place] [address] Neutrophils/Leukocyte s Auto (Bld) [Pure # fraction] 6.2 E9/L Normal 2.0-7.5 [facility] Comment on above: Order Comment: Order Added by Discern Expert. Performed By: #### 1 9789632, 5836451, 6063537, 5699303 #### [facility] [address] [place] [address] BMPon 08-31-2023 Anion gap [Moles/Vol] 13 mmol/L Normal 6-16 [facility] Comment on above: Performed By: #### 1 2536513, 4007671, 4336156, 6708734 #### [facility] [address] [place] [address] Calcium [Mass/Vol] 9.4 mg/dL Normal 8.9-11.1 [facility] Comment on above: Performed By: #### 1 4727027, 3281676, 1442419, 5006627 #### [facility] [address] [place] [address] Chloride [Moles/Vol] 107 mmol/L Normal 101-111 [facility] Comment on above: Performed By: #### 1 5351278, 6204874, 3300771, 9977377 #### [facility] [address] [place] [address] CO2 [Moles/Vol] 23 mmol/L Normal 21-31 [facility] Comment on above: Performed By: #### 1 4022533, 1668996, 7506351, 5343636 #### [facility] [address] [place] [address] Creatinine [Mass/Vol] 1.3 mg/dL Normal 0.5-1.3 [facility] Comment on above: Performed By: #### 1 9604713, 8421302, 8536329, 8461683 #### [facility] [address] [place] [address] Glucose [Mass/Vol] 103 mg/dL Normal 55-199 [facility] Comment on above: Result Comment: If t his glucose result represents a fasting glucose, interpretation should refer to the following reference range: 55-99 mg/dL Performed By: #### 1 5098283, 2692077, 6040954, 9831673 #### [facility] [address] [place] [address] Potassium [Moles/Vol] 4.0 mmol/L Normal 3.5-5.3 [facility] Comment on above: Performed By: #### 1 6663391, 7943278, 0430852, 0682826 #### [facility] [address] [place] [address] Sodium [Moles/Vol] 139 mmol/L Normal 135-145 [facility] Comment on above: Performed By: #### 1 8143628, 8929887, 9243357, 1918558 #### [facility] [address] [place] [address] Urea nitrogen [Mass/Vol] 16 mg/dL Normal 5-21 [facility] Comment on above: Performed By: #### 1 9571909, 2352570, 0656646, 5622589 #### [facility] [address] [place] [address] Urea nitrogen/Creatinine [Mass ratio] 12 No Units Normal 10-20 [facility] Comment on above: Performed By: #### 1 7341518, 4831971, 4278144, 5238440 #### [facility] [address] [place] [address] CBC w/ Auto Diffon 3 Erythrocyte distribution width (RBC) [Ratio] 14.8 % High 10.9-14.2 [facility] Comment on above: Performed By: #### 1 3439964, 6492090, 0673806, 2342296 #### [facility] [address] [place], [place] [address] Hematocrit (Bld) [Volume fraction] 45.7 % Normal 37.7-49.0 [facility] Comment on above: Performed By: #### 1 4792363, 7223261, 5721469, 0287307 #### [facility] [address] [place] [address] Hemoglobin (Bld) [Mass/Vol] 15.5 g/dL Normal 13.5-17.5 [facility] Comment on above: Performed By: #### 1 1038933, 9172057, 5026407, 7978809 #### [facility] [address] [place] [address] MCH (RBC) [Entitic mass] 28.4 pg Normal 27.0-34.0 [facility] Comment on above: Performed By: #### 1 1812858, 4348390, 0211189, 4609724 #### [facility] [address] [place] [address] MCHC (RBC) [Mass/Vol] 33.9 g/dL Normal 31.4-36.0 [facility] Comment on above: Performed By: #### 1 9316206, 6698208, 8832346, 8025865 #### [facility] [address] [place] [address] MCV (RBC) [Entitic vol] 83.8 fL Normal 80.0-100.0 [facility] Comment on above: Performed By: #### 1 7573548, 0134975, 6509094, 4584424 #### [facility] [address] [place] [address] Platelet mean volume (Bld) [Entitic vol] 7.9 fL Normal 6.4-10.8 [facility] Comment on above: Performed By: #### 1 0239903, 9795439, 4360211, 2055006 #### [facility] [address] [place] [address] Platelets (Bld) [#/Vol] 270.0 E9/L Normal 150.0-500.0 [facility] Comment on above: Performed By: #### 1 4112205, 1745026, 0028327, 9985945 #### [facility] [address] [place] [address] RBC (Bld) [#/Vol] 5.5 E12/L Normal 4.3-5.9 [facility] Comment on above: Performed By: #### 1 0657383, 9863789, 3118404, 7975026 #### [facility] [address] [place] [address] WBC corrected for nucl RBC Auto (Bld) [#/Vol] 10.3 E9/L Normal 4.0-11.0 [facility] Comment on above: Performed By: #### 1 7223118, 7429203, 2332684, 6899433 #### [facility] [address] [place] [address] CHEMISTRYOrdered By: SYSTEM SYSTEM on 08-31-2023 Anion gap [Moles/Vol] 13 mmol/L Normal 6 - 16 mEq/L [facility] Remisol Calcium [Mass/Vol] 9.4 mg/dL Normal 8.9 - 11. 1 mg/dL [facility] Remisol Chloride [Moles/Vol] 107 mmol/L Normal 101 - 1 11 mmol/L [facility] Remisol CO2 [Moles/Vol] 23 mmol/L Normal 21 - 31 mmol/L [facility] Remisol Creatinine [Mass/Vol] 1.3 mg/dL Normal 0.5 - 1.3 mg/dL [facility] Remisol GFR/1.73 sq M.predicted among non-blacks MDRD (S/P/Bld) [Vol rate/Area] 69 mL/min/1.73 m2 Normal >=59mL/min/ 1.73 m2 [facility] Chem S Comment on above: Interpretive Data: C hronic kidney disease could be indicated at eGFR's of less than 60 mL/min/1.73m2. Kidney failure is indicated at less than 15 mL/min/1.73m2. Glucose [Mass/Vol] 103 mg/dL Normal 55 - 199 mg/dL [facility] Remisol Comment on above: Interpretive Data: I f this glucose result represents a fasting glucose, interpretation should refer to the following reference range: 55-99 mg/dL Potassium [Moles/Vol] 4.0 mmol/L Normal 3.5 - 5.3 mmol/L [facility] Remisol Sodium [Moles/Vol] 139 mmol/L Normal 135 - 145 mmol/L [facility] Remisol Urea nitrogen [Mass/Vol] 16 mg/dL Normal 5 - 21 mg/dL [facility] Remisol Urea nitrogen/Creatinine [Mass ratio] 12 mg/mg Normal 10 - 20 [facility] Remisol Discharge Instructionson Discharge Instructions [id number] TIFF Normal [facility] Discharge Note-Nursingon Discharge Note-Nursing GRZEGORZ DENISE :1980 Visit Date:08/29/2023 Inpatient Discharge Instructions Your [...] Single View This Is Your Medications List [facility] Prescription (work excuse) acetaminophen-oxycodone (Percocet 325 mg-5 [...] Pending Diagnostic Test Results None Pharmacy Information [facility] Discharge Instructions Please return to ER if symptoms change or worsen. Please take medication as prescribed. Please follow-up with rotating equipment engineer as instructed. Please attempt to quit smoking. Previously Scheduled Follow-Up Appointments 2022 2:45 PM EST With: Denise Welch MD Where: [facility] New Follow Up Appointments after Discharge Follow Up with Denise Welch MD When: 09/29/2023 02:45 PM EST Where: [employer] Follow Up with KATIE SALGUERO When: 09/06/2023 02:30 PM EST Where: [address], [address] [address]- Business (1) Medications What How Much When Instructions Next Dose New aspirin (aspirin 81 mg Oral EC Tab) 1 Tablets By Mouth Every day Pickup at [facility]/pharmacy #6177 09/01 @ 9 AM New atorvastatin (atorvastatin 80 mg Tab) 1 Tablets By Mouth Every day Pickup at [facility]/pharmacy #6177 09/01 @ 9 AM New carvedilol (carvedilol 3.125 mg Tab) 1 Tablets By Mouth 2 times a day Pickup at [facility]/pharmacy #6177 08/31 @ 9 PM New furosemide (Lasix 20 mg Tab) 1 Tablets By Mouth Every day Pickup at [facility]/pharmacy #6177 09/01 @ 9 AM New losartan (losartan 50 mg Tab) 0.5 Tablets By Mouth Every day Pickup at [facility]/pharmacy #6177 09/01 @ 9 AM [facility]) 0 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 in approximately 2 weeks. Printed Prescription APPT 09/29 New ticagrelor (ticagrelor 90 mg oral tablet) 1 Tablets By Mouth 2 times a day Pickup at [facility]/pharmacy #6177 08/31 @ 9 PM Unchanged [...] @ 2 PM, 9 PM Pharmacy Information [facility]/pharmacy #[id number]: [address] [place], [place] [phone] What How Much When Comments Stop Taking [...] 06:16:00) P (more content not included)... Normal [facility] HEMATOLOGYOrdered By: SYSTEM SYSTEM on 08-31-2023 [...] - 7.5 E9/L [facility] HemeAutoSS HEMATOLOGYOrdered By: Meyr Phillips on 08-31-2023 Erythrocyte distribution width (RBC) [...] Inpatient Clinical Summaryon 08-31-2023 Inpatient Clinical Summary [address] [address] Clinical Summary Person Information: Name: DENISE LANTIGUA Age: 43 Years : 1980 Sex: Male PCP: KATIE SALGUERO DO Marital Status: Single Race: White Ethnicity: Non- or Language: [place] Visit Id: Visit Reason: STEMI Speciality: Acuity: Enc Type: Inpatient Med Service: Medical Arrival: 08/29/2023 16:25:17 Discharge: Dispo Type: Address: [address] [place] [id number] Provider Notes: Diagnosis: 1:STEMI (ST elevation myocardial [...] excuse) 0. 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 in approximately 2 weeks.. Refills: 0. ticagrelor (ticagrelor 90 mg oral tablet) 1 Tablets By Mouth 2 times a day. Refills: 0. Care Team Members: Attending Physician: Durga Thompson DO Consulting Physician: Frank SERRANO MD Referring Physician: Follow up: With: Address: When: Rebekah RODNEY, Denise Valdez [address] [place] [address] 09/29/2023 2:45 PM With: Address: When: KATIE [address], [facility] [address] [place] [address] Business (1) 09/06/2023 2:30 PM Type Location Start [facility] Cardiology Inpatient Follow Up (FT) [facility] 09/29/2023 2:45 PM 09/29/2023 3:00 PM Confirmed Patient Education Information: Cardiac Rehabilitation; Acute Coronary Syndrome Normal [facility] Inpatient Patient Summaryon 08-31-2023 Inpatient Patient Summary [place] [id number] Patient Discharge Instructions PERSON INFORMATION Name: DENISE [...] take medication as prescribed. Please follow-up with rotating equipment engineer as instructed. Please attempt to quit smoking. Primary Care Physician to provide the following pending test results: None Follow up: With: Address: When: Rebekah RODNEY, Denise Valdez [address] [place], [place] 09/29/2023 2:45 PM With: Address: When: KATIE [address]pos [address], [facility] [place] [address] Business (1) 09/06/2023 2:30 PM In the event that this physician does not participate in your insurance network, please consult with your insurance company to find a nearby participating provider. Type Location Start [facility] Cardiology Inpatient Follow Up (FT) [facility] 09/29/2023 2:45 PM 09/29/2023 3:00 PM Confirmed Comment: GRZEGORZ Angel RYAN, have received the attached patient education materials/instructions and have verbalized understanding: Patient Signature Date Clinican/Nurse Signature _ Date HERE ARE THE MEDICATION CHANGES THAT OCCURRED DURING YOUR HOSPITAL STAY New Medications [id number], [address] [place], [place] [phone], [phone] aspirin (aspirin 81 mg Oral EC Tab) [...] excuse) 0. 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 in approximately 2 weeks.. Refills: 0. Last [...] 0. atorvastatin (at (more content not included)... [facility] Insurance Correspondence Off ice08-31-2023 Insurance Correspondence Office [id number]#[id number] TIFF [facility] Interdisciplinary Note - Sunil e Manageron 08-31-2023 Interdisciplinary Note - Hand Driller Pt DC home prior to rounds with [facility] Comment on above: Result Comment: Elec tronically Signed By: Caesar DELACRUZ, Luzma\.br\Date and Time Signed: 08/31/23 10:52 EST Interdisciplinary Note - Soc ial Workeron 08-31-2023 Interdisciplinary Note - Sterile Preparation Technician Amber cost verified through patient's pharmacy; his cost is $25 after insurance. [facility] did not have the medication in stock and if they ordered it, it would not be available until after 6pm on 09/02/23 due to the holiday tomorrow. The pharmacist explained that she could transfer the prescription to [facility] as they did have it in stock; SW requested this be done. SW called patient's room and spoke to his fianceSinai, and let her know the cost and the need to pick it up at [facility], but that they would need to go to the [facility] for the rest of his mediations. She voiced understanding. SW will remain available. Normal [facility] Monitor Recordon 08-31-2023 Monitor Record [id number]#[id number] TIFF Normal [facility] Prescriptions/Work Noteson 1 10-31-2022 Prescriptions/Work Notes [id number]#1.00 TIFF Normal [facility] Progress Note-Physicianon Progress Note-Physician Subjective Patient [...] Calcium Lvl: 9.9 mg/dL (08/30/23 07:59:00) Troponin: >10657.00 Critical (08/30/23 07:59:00) Diagnostic Results (08/30/2023 10:50 [...] 2 tab (more content not included)... Normal [facility] Comment on above: Result Comment: Elec tronically Signed By: ZACH RODNEY, Frank Curry.br\Date and Time Signed: 08/31/23 07:11 EST eGFRon 08-31-2023 GFR/1.73 sq M.predicted among non-blacks MDRD (S/P/Bld) [Vol rate/Area] 69 mL/min/1.73 m2 Normal >=59 [facility] Comment on above: Order Comment: Order added by Discern Expert. Result Comment: Glove Machine Operator yury kidney disease could be indicated at eGFR's of less than 60 mL/min/1.73m2. Kidney failure is indicated at less than 15 mL/min/1.73m2. Performed By: #### 1 [id number], 1017358, 5159984, [id number] #### [facility] [address] [place] [address] BMPon 08-30-2023 Creatinine [Mass/Vol] 1.0 mg/dL Normal 0.5-1.3 [facility] Comment on above: Performed By: #### 2 [id number], 0749733, [id number] ####[facility] [address] [place] [address] Urea nitrogen [Mass/Vol] 8 mg/dL Normal 5- [facility] Comment on above: Performed By: #### 2 722478, 6299686, [id number] ####[facility] [address] [place] [address] Urea nitrogen/Creatinine [Mass ratio] 8 No Units Low 10-20 [facility] Comment on above: Performed By: #### 2 713914, 7063325, 21766786 ####[facility] [address] [place] [address] Anion gap [Moles/Vol] 17 mmol/L High 6-16 [facility] Comment on above: Performed By: #### 2 108427, 8828472, 36271354 ####[facility] [address] [place] [address] Calcium [Mass/Vol] 9.9 mg/dL Normal 8.9-11.1 [facility] Comment on above: Performed By: #### 2 847598, 6264416, [id number] ####[facility] [address] [place] [address] Chloride [Moles/Vol] 102 mmol/L Normal 101-111 [facility] Comment on above: Performed By: #### 2 108243, 1246459, 65083020 ####[facility] [address] [place] [address] CO2 [Moles/Vol] 22 mmol/L Normal 21-31 [facility] Comment on above: Performed By: #### 2 909722, 0333312, 69605999 ####[facility] [address] [place] [address] Glucose [Mass/Vol] 153 mg/dL Normal 55-199 [facility] Comment on above: Result Comment: If t his glucose result represents a fasting glucose, interpretation should refer to the following reference range: 55-99 mg/dL Performed By: #### 2 454782, 4028133, [id number] ####[facility] [address] [place] [address] Potassium [Moles/Vol] 4.0 mmol/L Normal 3.5-5.3 [facility] Comment on above: Performed By: #### 2 517899, 5572476, 35166967 ####[facility] [address] [place] [address] Sodium [Moles/Vol] 137 mmol/L Normal 135-145 [facility] Comment on above: Performed By: #### 2 405752, 2906283, 55382908 ####[facility] [address] [place] [address] Anion gap [Moles/Vol] QNS Invalid Interpretation Code 6-16 [facility] Comment on above: Result Comment: The specimen for this test has been found unacceptable due to quantity insufficient as determined by SW. Sissy was contacted and the following determination was made to redraw the patient. Performed By: #### 1 3956978, 1911210, 2180152, 4633389 #### [facility] [address] [place] [address] Calcium [Mass/Vol] QNS Invalid Interpretation Code 8.9-11.1 [facility] Comment on above: Result Comment: The specimen for this test has been found unacceptable due to quantity insufficient as determined by SW. Sissy was contacted and the following determination was made to redraw the patient. Performed By: #### 1 1563948, 4001507, 1477958, 9079500 #### [facility] [address] [place] [address] Chloride [Moles/Vol] QNS Invalid Interpretation Code 101-111 [facility] Comment on above: Result Comment: The specimen for this test has been found unacceptable due to quantity insufficient as determined by SW. Sissy was contacted and the following determination was made to redraw the patient. Performed By: #### 1 7703248, 1754246, 9205784, 5152703 #### [facility] [address] [place] [address] CO2 [Moles/Vol] QNS Invalid Interpretation Code 21-31 [facility] Comment on above: Result Comment: The specimen for this test has been found unacceptable due to quantity insufficient as determined by SW. Sissy was contacted and the following determination was made to redraw the patient. Performed By: #### 1 9358155, 3513542, 7300237, 6091328 #### [facility] [address] [place] [address] Creatinine [Mass/Vol] QNS Invalid Interpretation Code 0.5-1.3 [facility] Comment on above: Result Comment: The specimen for this test has been found unacceptable due to quantity insufficient as determined by SW. Sissy was contacted and the following determination was made to redraw the patient. Performed By: #### 1 1681882, 9714873, 0059293, 8081555 #### [facility] [address] [place] [address] Potassium [Moles/Vol] QNS Invalid Interpretation Code 3.5-5.3 [facility] Comment on above: Result Comment: The specimen for this test has been found unacceptable due to quantity insufficient as determined by SW. Sissy was contacted and the following determination was made to redraw the patient. Performed By: #### 1 0511305, 1651929, 8126415, 4821403 #### [facility] [address] [place] [address] Sodium [Moles/Vol] QNS Invalid Interpretation Code 135-145 [facility] Comment on above: Result Comment: The specimen for this test has been found unacceptable due to quantity insufficient as determined by SW. Sissy was contacted and the following determination was made to redraw the patient. Performed By: #### 1 7440229, 4402502, 0718160, 6217987 #### [facility] [address] [place] [address] Urea nitrogen [Mass/Vol] QNS Invalid Interpretation Code 5-21 [facility] Comment on above: Result Comment: The specimen for this test has been found unacceptable due to quantity insufficient as determined by SW. Sissy was contacted and the following determination was made to redraw the patient. Performed By: #### 1 6313419, 4939994, 4989086, 8152791 #### [facility] [address] [place] [address] Urea nitrogen/Creatinine [Mass ratio] QNS Invalid Interpretation Code 10-20 [facility] Comment on above: Result Comment: The specimen for this test has been found unacceptable due to quantity insufficient as determined by SW. [place] was contacted and the following determination was made to redraw the patient. Performed By: #### 1 0496986, 2164196, 1313666, 3686761 #### [facility] [address] [place] [address] Glucose [Mass/Vol] 113 mg/dL Normal 55-199 [facility] Comment on above: Result Comment: If t his glucose result represents a fasting glucose, interpretation should refer to the following reference range: 55-99 mg/dL Performed By: #### 1 4843240, 2938996, 0217491, 5087859 #### [facility] [address] [place] [address] CBC w/Indiceson 08-30-2023 Erythrocyte distribution width (RBC) [Ratio] 14.5 % High 10.9-14.2 [facility] Comment on above: Performed By: #### 1 7180555, 7695431, 1450324, 5555758 #### [facility] [address] [place] [address] Hematocrit (Bld) [Volume fraction] 51.5 % High 37.7-49.0 [facility] Comment on above: Performed By: #### 1 1650583, 2872992, 6007129, 1237492 #### [facility] [address] [place] [address] Hemoglobin (Bld) [Mass/Vol] 17.5 g/dL Normal 13.5-17.5 [facility] Comment on above: Performed By: #### 1 8047122, 4988456, 5939631, 4745501 #### [facility] [address] [place] [address] MCH (RBC) [Entitic mass] 28.6 pg Normal 27.0-34.0 [facility] Comment on above: Performed By: #### 1 7768650, 8117192, 0238166, 4089243 #### [facility] [address] [place] [address] MCHC (RBC) [Mass/Vol] 34.0 g/dL Normal 31.4-36.0 [facility] Comment on above: Performed By: #### 1 8277581, 0174310, 8023519, 9097718 #### [facility] [address] [place] [address] MCV (RBC) [Entitic vol] 83.9 fL Normal 80.0-100.0 [facility] Comment on above: Performed By: #### 1 7115740, 1215968, 0073705, 4649621 #### [facility] [address] [place] [address] Platelet mean volume (Bld) [Entitic vol] 8.2 fL Normal 6.4-10.8 [facility] Comment on above: Performed By: #### 1 5256701, 7756450, 6394828, 9471757 #### [facility] [address] [place] [address] Platelets (Bld) [#/Vol] 310.0 E9/L Normal 150.0-500.0 [facility] Comment on above: Performed By: #### 1 8749706, 8824468, 7309928, 4478644 #### [facility] [address] [place] [address] RBC (Bld) [#/Vol] 6.1 E12/L High 4.3-5.9 [facility] Comment on above: Performed By: #### 1 1750061, 9779494, 2406116, 5882515 #### [facility] [address] [place] [address] WBC corrected for nucl RBC Auto (Bld) [#/Vol] 15.4 E9/L High 4.0-11.0 [facility] Comment on above: Performed By: #### 1 7332337, 1745692, 0054536, 3928473 #### [facility] [address] [place] [address] CHEMISTRYOrdered By: SYSTEM SYSTEM on 08-30-2023 Anion gap [Moles/Vol] 17 mmol/L High 6 - 16 mEq/L [facility] Calcium [Mass/Vol] 9.9 mg/dL Normal 8.9 - 11. 1 mg/dL [facility] Chloride [Moles/Vol] 102 mmol/L Normal 101 - 1 11 mmol/L [facility] CO2 [Moles/Vol] 22 mmol/L Normal 21 - 31 mmol/L [facility] Creatinine [Mass/Vol] 1.0 mg/dL Normal 0.5 - 1.3 mg/dL [facility] Remisol GFR/1.73 sq M.predicted among non-blacks MDRD (S/P/Bld) [Vol rate/Area] 95 mL/min/1.73 m2 Normal >=59mL/min/ 1.73 m2 [facility] Comment on above: Interpretive Data: [...] Invalid Interpretation Code 15.90 - 38.40 pg/mL [facility] Comment on above: Result Comment: Resu lt verified by dilution\ Critical Result I_[id number] Called to DAMON BRUSH at 3N by TALI CALDERON and read back for confirmation at 08/30/2023 09:05:52 Interpretive Data: T he 95% CI (Confidence Interval) PPV (Positive Predictive Value) for myocardial infarction in females is 38 pg/mL, in males 51 pg/mL. The results should be used in conjunction with clinical conditions of myocardial infarction. (Access High Sensitivity Troponin I Instructions For Use, Martina [place], May 2018) Urea nitrogen [Mass/Vol] 8 mg/dL Normal 5 - 21 mg/dL [facility] Urea nitrogen/Creatinine [Mass ratio] 8 mg/mg Low 10 - 20 [facility] Glucose [Mass/Vol] 113 mg/dL Normal 55 - 199 mg/dL [facility] Comment on above: Interpretive Data: I f this glucose result represents a fasting glucose, interpretation should refer to the following reference range: 55-99 mg/dL Magnesium [Mass/Vol] 2.0 mg/dL Normal 1.3 - 2 .4 mg/dL [facility] CHEMISTRYOrdered By: Tali sue on 08-30-2023 Anion gap [Moles/Vol] QNS Invalid Interpretation Code 6 - 16 [facility] Chem S Comment on above: Result Comment: The specimen for this test has been found unacceptable due to quantity insufficient as determined by SW. [place] was contacted and the following determination was made to redraw the patient. Calcium [Mass/Vol] QNS Invalid Interpretation Code 8.9 - 11.1 [facility] Chem S Comment on above: Result Comment: The specimen for this test has been found unacceptable due to quantity insufficient as determined by SW. [place] was contacted and the following determination was made to redraw the patient. Chloride [Moles/Vol] QNS Invalid Interpretation Code 101 - 111 [facility] Chem S Comment on above: Result Comment: The specimen for this test has been found unacceptable due to quantity insufficient as determined by SW. [place] was contacted and the following determination was made to redraw the patient. CO2 [Moles/Vol] QNS Invalid Interpretation Code [facility] Chem S Comment on above: Result Comment: The specimen for this test has been found unacceptable due to quantity insufficient as determined by SW. [place] was contacted and the following determination was made to redraw the patient. Creatinine [Mass/Vol] QNS Invalid Interpretation Code 0.5 - 1.3 [facility] Chem S Comment on above: Result Comment: The specimen for this test has been found unacceptable due to quantity insufficient as determined by SW. [place] was contacted and the following determination was made to redraw the patient. GFR/1.73 sq M.predicted among non-blacks MDRD (S/P/Bld) [Vol rate/Area] QNS Invalid Interpretation Code >=59 [facility] Chem S Comment on above: Result Comment: The specimen for this test has been found unacceptable due to quantity insufficient as determined by SW. [place] was contacted and the following determination was made to redraw the patient. Interpretive Data: C hronic kidney disease could be indicated at eGFR's of less than 60 mL/min/1.73m2. Kidney failure is indicated at less than 15 mL/min/1.73m2. Potassium [Moles/Vol] QNS Invalid Interpretation Code 3.5 - 5.3 [facility] Chem S Comment on above: Result Comment: The specimen for this test has been found unacceptable due to quantity insufficient as determined by SW. [place] was contacted and the following determination was made to redraw the patient. Sodium [Moles/Vol] QNS Invalid Interpretation Code 135 - 145 [facility] Chem S Comment on above: Result Comment: The specimen for this test has been found unacceptable due to quantity insufficient as determined by SW. [place] was contacted and the following determination was made to redraw the patient. Urea nitrogen [Mass/Vol] QNS Invalid Interpretation Code 5 - 21 [facility] Chem S Comment on above: Result Comment: The specimen for this test has been found unacceptable due to quantity insufficient as determined by SW. [place] was contacted and the following determination was made to redraw the patient. Urea nitrogen/Creatinine [Mass ratio] QNS Invalid Interpretation Code 10 - 20 [facility] Chem S Comment on above: Result Comment: The specimen for this test has been found unacceptable due to quantity insufficient as determined by SW. [place] was contacted and the following determination was made to redraw the patient. Cardiovascular Reporton 08-11 Cardiovascular Report [id number]#1.00 TIFF Normal [facility] ED Note-Physicianon 08-30-20 23 ED Note-Physician [...] here. He is taken directly to the International Trade Analyst for emergent procedure. Critical Care Time: 10 [...] Diagnostic Results No qualifying data available. Normal [facility] Comment on above: Result Comment: Elec [...] 17.5 g/dL Normal 13.5 - 17.5 gm/dL [facility]SS MCH (RBC) [Entitic mass] 28.6 pg Normal 27.0 - 34.0 pg [facility]eAutoSS MCHC (RBC) [Mass/Vol] 34.0 g/dL Normal 31.4 - 36.0 gm/dL [facility] MCV (RBC) [Entitic vol] 83.9 fL Normal 80.0 - 100.0 fL [facility] Platelet mean volume (Bld) [Entitic vol] 8.2 fL Normal 6.4 - 10.8 fL [facility] Platelets (Bld) [#/Vol] 310.0 E9/L Normal 150.0 - 500.0 E9/L [facility] RBC (Bld) [#/Vol] 6.1 E12/L High 4.3 - 5.9 E12/L [facility] WBC corrected for nucl RBC Auto (Bld) [#/Vol] 15.4 E9/L High 4.0 - 11.0 E9/L [facility] HemeAutoSS Insurance Correspondence Off iceon 08-30-2023 Insurance Correspondence Office [id number]#1.00 TIFF Normal [facility] Interdisciplinary Note - Sunil e Manageron 08-30-2023 Interdisciplinary Note - Hand Driller Pt is asleep in bed, no family present. previously rounded with Dr. Thompson and await cardiology to see. Possible DC home later today. Pt is currently on brilinta, coupon provided for $5 copay provided at bedside and nursing updated, no further concerns or DC needs identified. CRM following, Probable DC home later today Normal [facility] Comment on above: Result Comment: Elec tronically Signed By: Caesar DELACRUZ, Luzma\.anne\Date and Time Signed: 08/30/23 10:03 EST Magnesiumon 08-30-2023 Magnesium [Mass/Vol] 2.0 mg/dL Normal 1.3-2.4 [facility] Comment on above: Performed By: #### 1 [id number], 3113356, 5727171, 1387423 #### [facility] [address] [place] [address] Monitor Recordon 08-30-2023 Monitor Record [id number]#1.00 TIFF Normal [facility] Monitor Record [id number]#1.00 TIFF Normal [facility] Monitor Record [id number]#1.00 TIFF Normal [facility] Monitor Record [id number]#1.00 TIFF Normal [facility] Monitor Record [id number]#1.00 TIFF [facility] Progress Note-Nurseon 2022 Progress Note-Nurse 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 Safety maintained. Normal [facility] Progress Note-Nurse This nurse was tsai [...] to a 4/10. Will continue to monitor. [facility] Progress Note-Physicianon Progress Note-Physician Assessment/Plan 1. STEMI [...] on telemetry for another 24 hours. Ordered: [facility] Care/Day High 50 Minutes [id number] 2. Tobacco abuse (Z72.0: Tobacco use) Educate [...] 16:21:00) Lymph Auto: 32.5 % (08/29/23 16:21:00) Glascock Auto: 4.6 % (08/29/23 16:21:00) Eos Auto: 0.9 % (08/29/23 16:21:00) Basophil Auto: 0.9 % (08/29/23 16:21:00) Neutro Absolute: 7.6 E9/L High (08/29/23 16:21:00) Lymph Absolute: 4.1 E9/L High (08/29/23 16:21:00) Glascock (more content not included)... Normal [facility] Comment on above: Result Comment: Elec tronically Signed By: Durga Thompson DO.br\Date and Time Signed: 08/30/23 09:32 EST Progress [...] 16:21:00) Lymph Auto: 32.5 % (08/29/23 16:21:00) Glascock Auto: 4.6 % (08/29/23 16:21:00) Eos Auto: 0.9 % (08/29/23 16:21:00) Basophil Auto: 0.9 % (08/29/23 16:21:00) Neutro Absolute: 7.6 E9/L High (08/29/23 16:21:00) Lymph Absolute: 4.1 E9/L High (08/29/23 16:21:00) Glascock Absolute: 0.6 E9/L (08/29/23 16:21:00) Eos Absolute: [...] Oral, q (more content not included)... Normal [facility] Comment on above: Result Comment: Elec tronically Signed By: ZACH RODNEY, Frank [place]\.br\Date and Time Signed: 08/30/23 07:50 EST Troponinon 08-30-2023 Troponin I.cardiac [Mass/Vol] ng/mL Abnormal 15.90-38.40 [facility] Comment on above: Result Comment: Resu lt verified by dilution\ Critical Result I_hsTnI:[id number] Called to DAMON GONSALO at 3N by TALI CALDERON and read back for confirmation at 08/30/2023 09:05:52 The 95% CI (Confidence Interval) PPV (Positive Predictive Value) for myocardial infarction in females is 38 pg/mL, in males 51 pg/mL. The results should be used in conjunction with clinical conditions of myocardial infarction. (Access High Sensitivity Troponin I Instructions For Use, [employer], May 2018) Performed By: #### 1 [id number], 8552161, 2033531, 1800113 #### [facility] [address] [place] [address] eGFRon 08-30-2023 GFR/1.73 sq M.predicted among non-blacks MDRD (S/P/Bld) [Vol rate/Area] 95 mL/min/1.73 m2 Normal >=59 [facility] Comment on above: Order Comment: Order added by Discern Expert. Result Comment: Glove Machine Operator yury kidney disease could be indicated at eGFR's of less than 60 mL/min/1.73m2. Kidney failure is indicated at less than 15 mL/min/1.73m2. Performed By: #### 2 428865, 8605415, [id number] ####[facility] [address] [place] [address] GFR/1.73 sq M.predicted among non-blacks MDRD (S/P/Bld) [Vol rate/Area] QNS Invalid Interpretation Code >=59 [facility] Comment on above: Order Comment: Order [...] than 15 mL/min/1.73m2. Performed By: #### 1 3012873, 7077650, 7653562, 4563940 #### [facility] [address] [place] [address] Auto Diffon 08-29-2023 Basophils/100 WBC (Bld) 0.9 % Normal 0.0-2.0 [facility] Comment on above: Order Comment: Order Added by Discern Expert. Performed By: #### 2 547396, 84899372, 53870382, 24930818, 5087764, 7810716 #### [facility] [address] [place] [address] Basophils/Leukocytes Auto (Bld) [Pure # fraction] 0.1 E9/L Normal 0.0-0.2 [facility] Comment on above: Order Comment: Order Added by Discern Expert. Performed By: #### 2 153007, 61271708, 67907623, 37592279, 5449221, 7746519 #### [facility] [address] [place] [address] Eosinophils/100 WBC (Bld) 0.9 % Normal 0.0-8.0 [facility] Comment on above: Order Comment: Order Added by Discern Expert. Performed By: #### 2 737342, 46160016, 92621622, 98118503, 4097429, 2194319 #### [facility] [address] [place] [address] Eosinophils/Leukocyte s Auto (Bld) [Pure # fraction] 0.1 E9/L Normal 0.0-0.5 [facility] Comment on above: Order Comment: Order Added by Discern Expert. Performed By: #### 2 350935, 36240149, 22671023, 93778606, 0840543, 0404927 #### [facility] [address] [place] [address] Lymphocytes/100 WBC (Bld) 32.5 % Normal 14.0-50.0 [facility] Comment on above: Order Comment: Order Added by Discern Expert. Performed By: #### 2 121087, 56366677, 16458017, 53752827, 0003872, 9743775 #### [facility] [address] [place] [address] Lymphocytes/Leukocyte s Auto (Bld) [Pure # fraction] 4.1 E9/L High 1.0-4.0 [facility] Comment on above: Order Comment: Order Added by Discern Expert. Performed By: #### 2 793397, 61672628, 66491837, 83220532, 0442381, 3338061 #### [facility] [address] [place] [address] Monocytes/100 WBC (Bld) 4.6 % Normal 4.0-14.0 [facility] Comment on above: Order Comment: Order Added by Juliana Expert. Performed By: #### 2 468755, 36999468, 60458678, 18406834, 4967799, 5403149 #### [facility] [address] [place] [address] Monocytes/Leukocytes Auto (Bld) [Pure # fraction] 0.6 E9/L Normal 0.2-1.0 [facility] Comment on above: Order Comment: Order Added by Juliana Expert. Performed By: #### 2 784922, 74826033, 18297344, 34152334, 1530213, 0867732 #### [facility] [address] [place] [address] Neutrophils/100 WBC (Bld) 61.1 % Normal 36.0-75.0 [facility] Comment on above: Order Comment: Order Added by Juliana Expert. Performed By: #### 2 436091, 06249562, 25004301, 71497216, 9929776, 8594043 #### [facility] [address] [place] [address] Neutrophils/Leukocyte s Auto (Bld) [Pure # fraction] 7.6 E9/L High 2.0-7.5 [facility] Comment on above: Order Comment: Order Added by Discern Expert. Performed By: #### 2 211007, 17426419, 42264977, 26285210, 5227213, 7880915 #### [facility] [address] [place] [address] BMPon 08-29-2023 Creatinine [Mass/Vol] 1.1 mg/dL Normal 0.5-1.3 [facility] Comment on above: Performed By: #### 2 065350, 58649789, 11552532, 69482215, 5092200, [id number] ####[facility] [address] [place] [address] Urea nitrogen [Mass/Vol] 7 mg/dL Normal 5-21 [facility] Comment on above: Performed By: #### 2 408103, 70641107, 01525812, 63702771, 7050511, 1769902 ####[facility] [address] [place] [address] Urea nitrogen/Creatinine [Mass ratio] 6 No Units Low 10-20 [facility] Comment on above: Performed By: #### 2 480798, 69112221, 11897778, 90209004, 3323958, 5201113 ####[facility] [address] [place] [address] Anion gap [Moles/Vol] 17 mmol/L High 6-16 [facility] Comment on above: Performed By: #### 2 352355, 04228751, 84339264, 18641908, 4701809, 2656297 ####[facility] [address] [place] [address] Calcium [Mass/Vol] 9.8 mg/dL Normal 8.9-11.1 [facility] Comment on above: Performed By: #### 2 755853, 07947634, 40538609, 19970356, 5387712, 2596174 ####[facility] [address] [place] [address] Chloride [Moles/Vol] 101 mmol/L Normal 101-111 [facility] Comment on above: Performed By: #### 2 717577, 18779608, 31726483, 85210412, 6179345, 3674953 ####[facility] [address] [place] [address] CO2 [Moles/Vol] 23 mmol/L Normal 21-31 [facility] Comment on above: Performed By: #### 2 851123, 98913023, 65509269, 16396488, 3957464, 1024628 ####[facility] [address] [place] [address] Glucose [Mass/Vol] 145 mg/dL Normal 55-199 [facility] Comment on above: Result Comment: If t his glucose result represents a fasting glucose, interpretation should refer to the following reference range: 55-99 mg/dL Performed By: #### 2 710550, 10321647, 52612388, 96353523, 2427683, 3612848 ####[facility] [address] [place] [address] Potassium [Moles/Vol] 3.5 mmol/L Normal 3.5-5.3 [facility] Comment on above: Performed By: #### 2 589617, 82970060, 97082690, 26448799, 7536440, 0503519 ####[facility] [address] [place] [address] Sodium [Moles/Vol] 137 mmol/L Normal 135-145 [facility] Comment on above: Performed By: #### 2 192180, 20337478, 39415674, 44450137, 1392751, 2258230 ####[facility] [address] [place] [address] CBC w/ Auto Diffon 3 Erythrocyte distribution width (RBC) [Ratio] 14.7 % High 10.9-14.2 [facility] Comment on above: Performed By: #### 2 463115, 00435499, 72104426, 32413497, 3576046, 8809042 #### [facility] [address] [place] [address] Hematocrit (Bld) [Volume fraction] 44.9 % Normal 37.7-49.0 [facility] Comment on above: Performed By: #### 2 675206, 19765123, 27569624, 64834813, 0230166, 4981387 #### [facility] [address] [place] [address] Hemoglobin (Bld) [Mass/Vol] 15.1 g/dL Normal 13.5-17.5 [facility] Comment on above: Performed By: #### 2 887282, 97330054, 31772578, 16599949, 7481695, 5447621 #### [facility] [address] [place] [address] MCH (RBC) [Entitic mass] 28.0 pg Normal 27.0-34.0 [facility] Comment on above: Performed By: #### 2 657364, 83911863, 47831367, 23868184, 6155034, 6432224 #### [facility] [address] [place] [address] MCHC (RBC) [Mass/Vol] 33.7 g/dL Normal 31.4-36.0 [facility] Comment on above: Performed By: #### 2 961105, 90485416, 72120183, 77613253, 5833784, 7664733 #### [facility] [address] [place] [address] MCV (RBC) [Entitic vol] 83.2 fL Normal 80.0-100.0 [facility] Comment on above: Performed By: #### 2 537915, 28684714, 45755360, 02150564, 4296139, 3662194 #### [facility] [address] [place] [address] Platelet mean volume (Bld) [Entitic vol] 8.1 fL Normal 6.4-10.8 [facility] Comment on above: Performed By: #### 2 871976, 36040106, 82080013, 48465804, 8996191, 5395568 #### [facility] [address] [place] [address] Platelets (Bld) [#/Vol] 346.0 E9/L Normal 150.0-500.0 [facility] Comment on above: Performed By: #### 2 709428, 33081265, 07410782, 56099722, 0565126, 6898707 #### [facility] [address] [place] [address] RBC (Bld) [#/Vol] 5.4 E12/L Normal 4.3-5.9 [facility] Comment on above: Performed By: #### 2 484635, 14405624, 97359529, 97908006, 1540901, 9741583 #### [facility] [address] [place] [address] WBC corrected for nucl RBC Auto (Bld) [#/Vol] 12.5 E9/L High 4.0-11.0 [facility] Comment on above: Performed By: #### 2 140825, 21134212, 79764201, 90157621, 3849804, 3320217 #### [facility] [address] [place] [address] CHEMISTRYOrdered By: SYSTEM SYSTEM on 08-29-2023 Troponin I.cardiac [Mass/Vol] 132.40 pg/mL Invalid Interpretation Code 15.90 - 38.40 pg/mL [facility] Remisol Comment on above: Result Comment: Crit ical [...] Sensitivity Troponin I Instructions For Use, Martina [place], May 2018) COAGULATIONOrdered By: Samantha Jerry on 08-29-2023 aPTT Coag (PPP) [Time] 31.6 s Normal 25.1 - 36.5 second(s) [facility] Auto Coag Comment on above: Interpretive Data: Reagan fam 15 days - 4 weeks 1 - [...] the same coagulation reagent and instrumentation as [facility]. Currently there are no coagulation studies available worldwide for children to 14 days, and no normal ranges. Heparin therapeutic range (represented by Anti-Factor Xa activity of 0.2 - 0.4 U/mL) corresponds to PTT of 56.6 - 109.0 sec. INR Coag (PPP) [Relative time] 1.0 {INR} Invalid Interpretation Code [facility] Auto Coag Comment on above: Interpretive Data: I NR results are specifically intended to assess patients stabilized on long-term Anticoagulation therapy suggested INR s Less Intensive Anticoagulation 2.0 3.0 Conventional Range 3.0 4.5 PT Coag (PPP) [Time] 11.5 s Normal 9.4 - 1 2.5 second(s) [facility] Auto Coag Comment on above: Interpretive Data: [...] the same coagulation reagent and instrumentation as [facility]. Currently there are no coagulation studies available worldwide for children to 14 days, and no normal ranges. Cardiovascular Reporton 08-11 Cardiovascular Report [id number] TIFF Normal [facility] Consent for Treatmenton 08-11 Consent for Treatment [id number] IFF Normal [facility] HEMATOLOGYOrdered By: SYSTEM SYSTEM on 08-29-2023 [...] STEMI due to plaque rupture and acute [place] of the mid LAD, status post primary [...] patient will additionally be counseled by the International Trade Analyst team and in follow-up. Complications Sustained ventricular tachycardia after reperfusion, spontaneously converted Technique Following full and informed consent the patient was brought to the International Trade Analyst where sterile prep and drape were administered in usual fashion. Anesthesia was obtained in the right wrist with lidocaine after administration of conscious sedation. A 5/6 slender Terumo sheath was placed in the right radial artery without complication. Nitroglycerin and nicardipine were given via the sheath and heparin was given intravenously. A 6 Gambian XB3.5 catheter was advanced and selectively engaged [...] end of the procedure without complication. Normal [facility] Comment on above: Result Comment: Elec tronically Signed By: Rebekah RODNEY, Denise Valdez\.br\Date and Time Signed: 08/29/23 20:59 EST PT & PTTon 08-29-2023 aPTT Coag (PPP) [Time] 31.6 second(s) Normal 25.1-36.5 [facility] Comment on above: Result Comment: Para [...] the same coagulation reagent and instrumentation as [facility]. Currently there are no coagulation studies available worldwide for children to 14 days, and no normal ranges. Heparin therapeutic range (represented by Anti-Factor Xa activity of 0.2 - 0.4 U/mL) corresponds to PTT of 56.6 - 109.0 sec. Performed By: #### 2 478809, 25802786, 52144947, 97079094, 3539267, 8740991 #### [facility] [address] [place] [address] INR Coag (PPP) [Relative time] 1.0 {INR} Invalid Interpretation Code [facility] Comment on above: Result Comment: INR results are specifically intended to assess patients stabilized on long-term Anticoagulation therapy suggested INR?s ?Less Intensive Anticoagulation? 2.0 ? 3.0 Conventional Range 3.0 ? 4.5 Performed By: #### 2 343402, 25698045, 38353511, 39947061, 4553124, 8901801 #### [facility] [address] [place] [address] PT Coag (PPP) [Time] 11.5 second(s) Normal 9.4-12.5 [facility] Comment on above: Result Comment: 15 [...] the same coagulation reagent and instrumentation as [facility]. Currently there are no coagulation studies available worldwide for children to 14 days, and no normal ranges. Performed By: #### 2 554982, 77925667, 26267685, 86840017, 7993443, 4273408 #### [facility] [address] [place] [address] Pre-Arrival Noteon Pre-Arrival Note Pre-Arrival Summary Name: , [facility] Current Date: 08/29/2023 16:25:38 EST Gender: Date of : Age: 43 Pre-Arrival Type: EMS ETA: 08/29/2023 16:48:00 EST Primary Care Physician: Presenting Problem: STEMI Pre-Arrival User: Olive Mcdonald RN Referring Source: Location: Completion Date/Time: 08/29/2023 16:19:00 [facility] Emergency Department Pre-Hospital Report Form Vital Signs: Pre-Hospital Report: Treatment in Route: Response to Treatment: Misc. Issues: Normal [facility] Progress Note-Nurseon 2022 Progress Note-Nurse Report [...] locked and low, and safety maintained. Normal [facility] Troponin 0 Hr.on 08-29-2023 Troponin I.cardiac [Mass/Vol] 132.40 pg/mL Abnormal 15.90-38.40 [facility] Comment on above: Result Comment: Crit [...] High Sensitivity Troponin I Instructions For Use, [employer], May 2018) Performed By: #### 2 645496, 12740044, 93312356, 52230040, 0050093, 7061083 ####[facility] [address] [place] [address] XR Chest Single Viewon 08-29 XR Chest [...] mGy = na DAP = na Normal [facility] eGFRon 08-29-2023 GFR/1.73 sq M.predicted among non-blacks MDRD (S/P/Bld) [Vol rate/Area] 84 mL/min/1.73 m2 Normal >=59 [facility] Comment on above: Order Comment: Order added by Discern Expert. Result Comment: Glove Machine Operator yury kidney disease could be indicated at eGFR's of less than 60 mL/min/1.73m2. Kidney failure is indicated at less than 15 mL/min/1.73m2. Performed By: #### 2 647512, 90963693, 01230385, 29970540, 4994187, 8969948 ####[facility] [address] [place] [address] XR thoracic spine 2Von 05-31 XR thoracic spine 2V [place] [facility] [place] [address] [place], [place] [address] XRay Report Signed Patient: Denise Lantigua MR#: [id number] : 1980 Acct:[id number] Age/Sex: 43 / M ADM Date: 05/31/23 Loc: [facility] Room: Type: [facility] Attending Dr: Shaquille Remy MD Copies [...] Emil Jain M.D.05/31/2023 4:33 PM Dictation Location: [place] [address] Transcribed By: [facility] 05/31/23 6494 Dictated By: Emil Jain II, MD 05/31/23 162 Signed By: 05/31/23 1633 Normal [facility] XR thoracic spine 2V [facility] [employer] Other XR thoracic spine 2V [facility] [employer] Other XR thoracic spine 2V 1111 [facility] [employer] Other XR thoracic spine 2[place] [address] [employer] Other XR thoracic spine 2V XRay Report [facility] [employer] Other XR thoracic spine 2V Signed [employer] Other XR thoracic spine 2V Patient: [place] Lantigua MR#: [id number] [employer] Other XR thoracic spine 2V 8 [facility] [employer] Other XR thoracic spine 2V : 1980 Acct:[id number] [employer] Other XR thoracic spine 2V Age/Sex: 43 / M ADM Date: 05/31/23 [employer] Other XR thoracic spine 2V Loc: [facility] Room: Typ e: [facility] [employer] Other XR thoracic spine 2V Attending Dr: Huong Remy MD [employer] Other XR thoracic spine 2V Copies to: Shaquille Remy MD [employer] Other XR thoracic spine 2V Ordering Provider: Shaquille Remy MD [employer] Other XR thoracic spine 2V Date of Service: 05/31/23 [employer] Other XR thoracic spine 2V XR/XR thoracic spine 2V: Thoracic back pain [employer] Other XR thoracic spine 2V XR thoracic spine 2 V 05/31/2023 4:17 PM [employer] Other XR thoracic spine 2V SIGNS AND SYMPTOMS: [employer] Other XR thoracic spine 2V Thoracic back pain [employer] Other XR thoracic spine 2V PROTOCOLS: Frontal and lateral radiograph thoracic spine. [employer] Other XR thoracic spine 2V COMPARISON: None [employer] Other XR thoracic spine 2V FINDINGS: [facility] [employer] Other XR thoracic spine 2V The bones are in anatomic alignment with preservation of vertebral body heights. There is a spinal [employer] Other XR thoracic spine 2V cord stimulator wit h the leads extending to the mid T6 vertebral body level. No evidence of fracture [employer] Other XR thoracic spine 2V or bony destructive lesion. [employer] Other XR thoracic spine 2V XR/XR thoracic spine 2V [employer] Other XR thoracic spine 2V IMPRESSION: [employer] Other XR thoracic spine 2V There is a spinal c ord stimulator with the leads extending to the mid T6 vertebral body level. [employer] Other XR thoracic spine 2V No acute bony injury. [employer] Other XR thoracic spine 2V Impression dictated by: Emil Jain M.D.05/31/2023 4:33 PM [employer] Other XR thoracic spine 2V Dictation Location: [place] [address] [employer] Other XR thoracic spine 2V Transcribed By: KILEY 05/31/23 1633 [employer] Other XR thoracic spine 2V Dictated By: Emil Jain II, MD 05/31/23 1629 [employer] Other XR thoracic spine 2V Signed By: [facility] [employer] Other XR thoracic spine 2V 05/31/23 1633 [facility] [employer] Other MISCELLANEOUS CULT./SM.BACT. on 01-25-2023 MISCELLANEOUS CULT./SM.BACT. PATIENT: DENISE LANTIGUA LOCATION: [facility]#: [id number] : [birth year] AGE: SEX: M ORDERED BY: TOMASZ POWER SOURCE: WOUND/ABSCESS COLLECTED: 01/25/23 14:27 ANTIBIOTICS AT BAILEE.: RECEIVED : 01/25/23 22:07 SITE: THORACIC WOUND R E S U L T S GRAM STAIN FINAL 01/26/23 00:02 NO GRANULOCYTES OR ORGANISMS SEEN. MISCELLANEOUS CULT./SM.BACT. FINAL 01/27/23 11:44 NO GROWTH AEROBICALLY OR ANAEROBICALLY. Normal [facility] Comment on above: Performed By: #### M [facility] #### [facility] [address] [place] [address] Order Reconciliationon 01-25 Order Reconciliation Page 1 [...] 1 cap(s) orally once a day Normal [facility] Patient Profile - Preop v3on 01-25-2023 Patient Profile - Preop v3 Patient Profile - Preop: Initial Info: Patient DemographicsName: DENISE LANTIGUA Date: 1980 [address]: [address] [place], [place] [id number] Primary Phone [phone] Instructions Givenappropriate clothing, bring list of medications, bring responsible adult as the non cdl driver (procedure may be cancelled if no non cdl driver), center location, insurance information, remove jewerly/piercings How to be AddressedRYAN Spoken Language PreferredEnglish Source of Informationpatient Stated Reason for AdmissionSPINAL CORD STIMULATOR REVISION Primary Contact Name and NumberConnie S.O. [phone] Limitations on Visitors/Phone Callsnone Medications Brought to Hospitalno General Health: Weight in kg76.3 kilogram(s) Weight in abm436.2 pound(s) Weight Methodactual (measured) Scale Typechair Height [...] other Living Arrangementshouse Resource/Environmental Concernsnone Anticipated Transition [place] Services Anticipated at Transitionnone Tobacco Use: Tobacco Useyes Last Tobacco [id number] Number of Packs per Day0.5 Pre-op Checklist: Arrival [id number] Arrival Time12:33 Procedure TypeSpinal Cord Stimulator Revision NPOyes Last Food [id number]-3591 21:00 Last Clear Fluid Dhikbv12-Mmk-3670 05:30 NPO CommentSips with Meds ID Band On Patientpatient ID (name) Consent Signedyes H&P Completeyes Anesthesia Assessment Completedyes EKG Performednot ordered Chest X-Ray Performednot ordered Preop Antibioticssent to OR Beta-alfonzo Last Dose Date/Ifka09-Mjq-9618 05:30 COVID 19 Results in Last 7 [...] 13:45 by Mora Sadler (NUBIA GRANADO) Normal [facility] CBCon 01-19-2023 Erythrocyte distribution width (RBC) [Ratio] 14.8 % High 11.5 - 14.5 [facility] Comment on above: Performed By: #### C BC #### [address] [address] Hematocrit (Bld) [Volume fraction] 45.6 % Normal 41.0 - 52.0 [facility] Comment on above: Performed By: #### C BC #### [address] [address] Hemoglobin (Bld) [Mass/Vol] 14.7 g/dL Normal 13.5 - 17.5 [facility] Comment on above: Performed By: #### C BC #### [address] [address] MCHC (RBC) [Mass/Vol] 32.2 g/dL Normal 32.0 - 36.0 [facility] Comment on above: Performed By: #### C BC #### [address] [address] MCV (RBC) [Entitic vol] 87 fL Normal 80 - 100 [facility] Comment on above: Performed By: #### C BC #### [address] [place] [address] NUCLEATED RBC 0.0 /100 WBC Normal 0.0 - 0.0 [facility] Comment on above: Performed By: #### C BC #### [address] [place] [address] Platelets (Bld) [#/Vol] 332 10*3/uL Normal 150 - 450 [facility] Comment on above: Performed By: #### C BC #### [address] [place] [address] RBC 5.23 x10E12/L Normal 4.50 - 5.90 [facility] Comment on above: Performed By: #### C BC #### [address] [place] [address] WBC (Bld) [#/Vol] 11.8 10*3/uL High 4.4 - 11.3 [facility] Comment on above: Performed By: #### C BC #### [address] [place] [address] COMPREHENSIVE PANELon 2022 Albumin [Mass/Vol] 4.5 g/dL Normal 3.4 - 5.0 [facility] Comment on above: Performed By: #### C MP #### [address] [place] [address] ALP [Catalytic activity/Vol] 84 U/L Normal 33 - 120 [facility] Comment on above: Performed By: #### C MP #### [address] [place] [address] ALT [Catalytic activity/Vol] 32 U/L Normal 10 - 52 [facility] Comment on above: Result Comment: Janet ents treated with Sulfasalazine may generate falsely decreased results for ALT. Performed By: #### C MP #### [address] [place] [address] Anion gap [Moles/Vol] 9 mmol/L Low 10 - 20 [facility] Comment on above: Performed By: #### C MP #### [address] [place] [address] AST [Catalytic activity/Vol] 19 U/L Normal 9 - 39 [facility] Comment on above: Performed By: #### C MP #### [address] [place] [address] Bilirubin [Mass/Vol] 0.4 mg/dL Normal 0.0 - 1.2 [facility] Comment on above: Performed By: #### C MP #### [address] [place] [address] Calcium [Mass/Vol] 9.9 mg/dL Normal 8.6 - 10.3 [facility] Comment on above: Performed By: #### C MP #### [address] [place] [address] Chloride [Moles/Vol] 101 mmol/L Normal 98 - 107 [facility] Comment on above: Performed By: #### C MP #### [address] [place] [address] Creatinine [Mass/Vol] 1.06 mg/dL Normal 0.50 - 1.30 [facility] Comment on above: Performed By: #### C MP #### [address] [place] [address] GFR/1.73 sq M.predicted among non-blacks MDRD (S/P/Bld) [Vol rate/Area] 88 mL/min/{1.73_m2} Normal >90 [facility] Comment on above: Result Comment: CALC ULATIONS OF ESTIMATED GFR ARE PERFORMED USING THE 2020 CKD-EPI STUDY REFIT EQUATION WITHOUT THE RACE VARIABLE FOR THE IDMS-TRACEABLE CREATININE METHODS. https://jasn.asnjournals.org/content//ASN.082049 3799 Performed By: #### C MP #### [address] [place] [address] Glucose [Mass/Vol] 86 mg/dL Normal 74 - 99 [facility] Comment on above: Performed By: #### C MP #### [address] [place] [address] HCO3 (Bld) [Moles/Vol] 31 mmol/L Normal 21 - 32 [facility] Comment on above: Performed By: #### C MP #### [address] [place] [address] Potassium [Moles/Vol] 3.8 mmol/L Normal 3.5 - 5.3 [facility] Comment on above: Performed By: #### C MP #### [address] [place] [address] Protein [Mass/Vol] 7.2 g/dL Normal 6.4 - 8.2 [facility] Comment on above: Performed By: #### C MP #### [address] [place] [address] Sodium [Moles/Vol] 137 mmol/L Normal 136 - 145 [facility] Comment on above: Performed By: #### C MP #### [address] [place] [address] Urea nitrogen [Mass/Vol] 10 mg/dL Normal 6 - 23 [facility] Comment on above: Performed By: #### C MP #### [address] [place] [address] STAPH/MRSA SCREENon 01-20-20 STAPH/MRSA SCREEN PATIENT: AFRICA LANTIGUA LOCATION: [facility]#: [id number] : [birth year] AGE: SEX: M ORDERED BY: TOMASZ [facility] COL[facility]ED: 01/19/23 09:27 ANTIBIOTICS AT BAILEE.: RECEIVED : 01/19/23 23:36 SITE: NARES, NARES, AXILLA, GROIN R E S U L T S STAPH/MRSA SCREEN FINAL 01/21/23 13:05 ISOLATE1 : Staphylococcus aureus METHICILLIN SENSITIVE STAPHYLOCOCCUS AUREUS (MSSA) Normal [facility] Comment on above: Performed By: #### S TAPH #### [facility] [address] [place] [address] CULTURE WOUNDon 12-28-2022 CULTURE WOUND Culture Observations : NO GROWTH OF AEROBES AT 48 HRS. Culture Observations: NO GROWTH OF ANAEROBES AT 72 HOURS. Normal [facility] Comment on above: Performed By: #### W OUNDCX #### [facility] [address] [place] [address] Dr. Anaya Gerard Order Reconciliationon 12-14 Order [...] total o (more content not included)... Normal [facility] Patient Profile - Preop v3on 12-14-2022 Patient Profile - Preop v3 Patient Profile - Preop: Initial Info: Patient DemographicsName: DENISE LANTIGUA Date: 1980 Address: [address] [place], [place] [id number] Primary Phone [phone] How to be AddressedRyan Spoken Language PreferredEnglish Source of Informationpatient Stated Reason for Admissionback surgery Primary Contact Name and NumberConnie [phone] Limitations on Visitors/Phone Callsnone Medications Brought to Hospitalno General Health: Weight in kg75.8 kilogram(s) Weight in kxy269.1 pound(s) Weight Methodactual (measured) Scale Typechair Height [...] other Living Arrangementshouse Resource/Environmental Concernsnone Anticipated Transition [place] Services Anticipated at Transitionnone Tobacco Use: Tobacco Useyes Tobacco Typecigarettes Last Tobacco [id number] Number of Packs per Day0.5 Number of yrs30 Pack yrs15 Pre-op Checklist: Arrival Lipn78-Mez-6656 Arrival Time06:15 Procedure TypeLaminectomy for insertion of spinal cord stimulator NPOyes Last Food Pndizh49-Zor-4352 19:00 Last Clear Fluid Jpkoym72-Fzk-6122 03:00 ID Band On Patientpatient ID (name) H&P Completeyes EKG Performednot ordered Preop Antibioticssent to OR Beta-alfonzo Last Dose Date/[id number] 03:00 Type and Screen Resultedn/a Chlorhexadine Bath [...] 06:58 by Isabel Contreras (STAFF N) Normal [facility] STAPH/MRSA SCREENon 12-03-19 STAPH/MRSA SCREEN PATIENT: AFRICA LANTIGUA LOCATION: [facility] ([facility])#: [id number] : 76 AGE: SEX: M ORDERED BY: TOMASZ POWER SOURCE: ANTERIOR NARES COLLECTED: 12/03/22 13:42 ANTIBIOTICS AT BAILEE.: RECEIVED : 12/03/22 22:15 SITE: bilateral R E S U L T S STAPH/MRSA SCREEN FINAL 12/05/22 11:18 NO Staphylococcus aureus ISOLATED. Normal [facility] Comment on above: Performed By: #### S TAPH #### [facility] [address] [place] [address] XR Chest 2 Views*on 02-26-20 XR Chest [...] by Keven Puri on 02/25/2022 0902 Normal [facility] Specialist CT ANGIO CORONARY ARTERIES W C EVAL [...] Coronary artery aneurysm. COMPARISON: None. ACCESSION NUMBER(S): [id number] ORDERING CLINICIAN: KATIE SALGUERO TECHNIQUE: Using multi-detector [...] vein. PERICARDIUM: (more content not included)... Normal [facility] Complete Blood Count with Au to Diffon 12-24-2021 Basophils (Bld) [#/Vol] 0.13 10*3/uL Normal 0.00-0.20 [facility] Comment on above: Performed By: #### C BCAD, LIPD, CMP #### [facility] [address] [place], [place] [id number] Basophils/100 WBC (Bld) 1.5 % Normal [facility] Comment on above: Performed By: #### C BCAD, LIPD, CMP #### [facility] [address], [place] [id number] Eosinophils (Bld) [#/Vol] 0.14 10*3/uL Normal 0.02-0.50 [facility] Specialist Comment on above: Performed By: #### C BCAD, LIPD, CMP #### [facility] [address], [place] [id number] Eosinophils/100 WBC (Bld) 1.6 % Normal [facility] Comment on above: Performed By: #### C BCAD, LIPD, CMP #### [facility] [address], [place] [id number] Erythrocyte distribution width (RBC) [Ratio] 14.3 % Normal 11.0-15.0 [facility] Comment on above: Performed By: #### C BCAD, LIPD, CMP #### [facility] [address], [place] [id number] Hematocrit (Bld) [Volume fraction] 47.1 % Normal 38.5-50.0 [facility] Comment on above: Performed By: #### C BCAD, LIPD, CMP #### [facility] [address], [place] [id number] Hemoglobin (Bld) [Mass/Vol] 15.4 g/dL Normal 13.0-17.1 [facility] Comment on above: Performed By: #### C BCAD, LIPD, CMP #### [facility] [address], [place] [id number] Lymphocytes (Bld) [#/Vol] 3.0 10*3/uL Normal 0.9-3.9 [facility] Specialist Comment on above: Performed By: #### C BCAD, LIPD, CMP #### [facility] [address] [facility] [place] [id number] Lymphocytes/100 WBC (Bld) 33.2 % Normal [facility] Comment on above: Performed By: #### C BCAD, LIPD, CMP #### [facility] [address], [place] [id number] MCH (RBC) [Entitic mass] 28.4 pg Normal 27.0-33.0 [facility] Specialist Comment on above: Performed By: #### C BCAD, LIPD, CMP #### [facility] [address], [place] [id number] MCHC (RBC) [Mass/Vol] 32.7 g/dL Normal 32.0-36.0 [facility] Comment on above: Performed By: #### C BCAD, LIPD, CMP #### [facility] [address], [place] [id number] MCV (RBC) [Entitic vol] 87 fL Normal 80-100 [facility] Specialist Comment on above: Performed By: #### C BCAD, LIPD, CMP #### [facility] [address], [place] [id number] Monocytes (Bld) [#/Vol] 0.6 10*3/uL Normal 0.2-0.9 [facility] Special[facility] Comment on above: Performed By: #### C BCAD, LIPD, CMP #### [facility] [address], [place] [id number] Monocytes/100 WBC (Bld) 7.0 % Normal [facility] Comment on above: Performed By: #### C BCAD, LIPD, CMP #### [facility] [address], [place] [id number] Neutrophils (Bld) [#/Vol] 5.0 10*3/uL Normal 1.5-7.8 [facility] Specialist Comment on above: Performed By: #### C BCAD, LIPD, CMP #### [facility] [address], [place] [id number] Neutrophils/100 WBC (Bld) 56.2 % Normal [facility] Specialist Comment on above: Performed By: #### C BCAD, LIPD, CMP #### [facility] [address], [place] [id number] Platelet mean volume (Bld) [Entitic vol] 10.40 fL Normal 7.50-12.50 [facility] Comment on above: Performed By: #### C BCAD, LIPD, CMP #### [facility] [address], [place] [id number] Platelets (Bld) [#/Vol] 345 10*3/uL Normal 140-400 [facility] Specialist Comment on above: Performed By: #### C BCAD, LIPD, CMP #### [facility] [address], [place] [id number] RBC (Bld) [#/Vol] 5.42 10*6/uL Normal 4.20-5.80 [facility] Comment on above: Performed By: #### C BCAD, LIPD, CMP #### [facility] [address], [place] [id number] RDW-SD 45.7 fL Normal 37.0-50.0 [facility] Specialist Comment on above: Performed By: #### C BCAD, LIPD, CMP #### [facility] [address], [place] [id number] WBC (Bld) [#/Vol] 8.9 10*3/uL Normal 3.8-11.0 [facility] Specialist Comment on above: Performed By: #### C BCAD, LIPD, CMP #### [facility] [address], [place] [id number] Comprehensive Metabolic Pane helder 12-24-2021 Albumin [Mass/Vol] 4.8 g/dL Normal 3.6-5.1 [facility] Specialist Comment on above: Performed By: #### C BCAD, LIPD, CMP #### [facility] [address] [place], [place] [id number] Albumin/Globulin [Mass ratio] 2.0 {ratio} Normal 1.0-2.5 [facility] Specialist Comment on above: Performed By: #### C BCAD, LIPD, CMP #### [facility] [address] [place], [place] [id number] ALP [Catalytic activity/Vol] 90 U/L Normal 40-129 [facility] Specialist Comment on above: Performed By: #### C BCAD, LIPD, CMP #### [facility] [address], [place] [id number] ALT [Catalytic activity/Vol] 16 U/L Normal 9-46 [facility] Comment on above: Result Comment: 09/09 Female reference range changed. Performed By: #### C BCAD, LIPD, CMP #### [facility] [address] [place], [place] [id number] Anion gap [Moles/Vol] 19 mmol/L Normal 12-20 [facility] Comment on above: Result Comment: Effe ctive 10/15/2019 reference range changed. Performed By: #### C BCAD, LIPD, CMP #### [facility] [address], [place] [id number] AST [Catalytic activity/Vol] 17 U/L Normal 10-40 [facility] Comment on above: Performed By: #### C BCAD, LIPD, CMP #### [facility] [address], [place] [id number] Bilirubin [Mass/Vol] 0.40 mg/dL Normal 0.30-1.20 [facility] Comment on above: Performed By: #### C BCAD, LIPD, CMP #### [facility] [address], [place] [id number] BUN/CREA 10 Ratio Normal 6-22 [facility] Comment on above: Performed By: #### C BCAD, LIPD, CMP #### [facility] [address], [place] [id number] Calcium [Mass/Vol] 9.3 mg/dL Normal 8.6-10.2 [facility] Comment on above: Performed By: #### C BCAD, LIPD, CMP #### [facility] [address], [place] [id number] Chloride [Moles/Vol] 102 mmol/L Normal 98-107 [facility] Specialist Comment on above: Performed By: #### C BCAD, LIPD, CMP #### [facility] [address] [facility] [place] [id number] CO2 [Moles/Vol] 24 mmol/L Normal 20-31 [facility] Specialist Comment on above: Performed By: #### C BCAD, LIPD, CMP #### [facility] [address], [place] [id number] Creatinine [Mass/Vol] 1.0 mg/dL Normal 0.7-1.4 [facility] Comment on above: Performed By: #### C BCAD, LIPD, CMP #### [facility] [address], [place] [id number] eGFRAA 96 mL/min/1.73m2 Normal >60 [facility] Specialist Comment on above: Performed By: #### C BCAD, LIPD, CMP #### [facility] [address], [place] [id number] eGFRNAA 79 mL/min/1.73m2 Normal >60 [facility] Specialist Comment on above: Performed By: #### C BCAD, LIPD, CMP #### [facility] [address], [place] [id number] Globulin (S) [Mass/Vol] 2.4 g/dL Normal 1.9-3.7 [facility] Specialist Comment on above: Performed By: #### C BCAD, LIPD, CMP #### [facility] [address], [place] [id number] Glucose [Mass/Vol] 100 mg/dL High 65-99 [facility] Comment on above: Result Comment: For FASTING Glucose --- ADA reference ranges: Normal 65-99 mg/dl Prediabetes 100-125 Diabetes >/= 126 Performed By: #### C BCAD, LIPD, CMP #### [facility] [address], [place] [id number] Potassium [Moles/Vol] 4.5 mmol/L Normal 3.5-5.5 [facility] Comment on above: Result Comment: Spec imen is hemolyzed. Results may be affected. Performed By: #### C BCAD, LIPD, CMP #### [facility] [address], [place] [id number] Protein [Mass/Vol] 7.2 g/dL Normal 6.1-8.1 [facility] Comment on above: Performed By: #### C BCAD, LIPD, CMP #### [facility] [address], [place] [id number] Sodium [Moles/Vol] 140 mmol/L Normal 135-146 [facility] Comment on above: Performed By: #### C BCAD, LIPD, CMP #### [facility] [address], [place] [id number] Urea nitrogen [Mass/Vol] 10 mg/dL Normal 7-25 [facility] Comment on above: Performed By: #### C BCAD, LIPD, CMP #### [facility] [address], [place] [id number] Lipid Panelon 12-24-2021 Cholesterol [Mass/Vol] 333 mg/dL High 125-200 [facility] Comment on above: Result Comment: Low risk < 200mg/dL Borderline risk 201-239 mg/dl High risk > or equal to 240 Performed By: #### C BCAD, LIPD, CMP #### [facility] [address], [place] [id number] Cholesterol in HDL [Mass/Vol] 34 mg/dL Low >40 [facility] Comment on above: Result Comment: High Cardiovascular Risk HDL <40 mg/dL Low Cardiovascular Risk HDL > or equal to 60 mg/dl Performed By: #### C BCAD, LIPD, CMP #### [facility] [address], [place] [id number] Cholesterol in LDL [Mass/Vol] 247 mg/dL Normal [facility] Comment on above: Result Comment: LDL ATP III CLASSIFICATION LDL less than 100 mg/dl Optimal LDL 100-129 mg/dl Near or above optimal LDL 130-159 Borderline high LDL 160-189 High LDL greater than 189 mg/dl Very High Performed By: #### C BCAD, LIPD, CMP #### [facility] [address], [place] [id number] Cholesterol in VLDL [Mass/Vol] 52 mg/dL Normal [facility] Comment on above: Performed By: #### C BCAD, LIPD, CMP #### [facility] [address] [place], [place] [id number] Cholesterol.total/Cho lesterol in HDL [Mass ratio] 10 {ratio} Normal [facility] Comment on above: Performed By: #### C BCAD, LIPD, CMP #### [facility] [address] [place], [place] [id number] Triglyceride [Mass/Vol] 262 mg/dL High 30-150 [facility] Comment on above: Result Comment: TRIG ATPIII CLASSIFICATIONS TRIG less than 150 mg/dl Normal TRIG 150-199 mg/dl Borderline High TRIG 200-500 mg/dl High TRIG greather than 500 mg/dl Very High Performed By: #### C BCAD, LIPD, CMP #### [facility] [address] [place], [place] [id number] Microalbumin (with Creat)on 12-24-2021 mALB <1.2 Low [facility] Specialist Comment on above: Result Comment: Unab le to calculate mALB/Crea ratio, mALB is <1.2 mg/dL mALB reference range not established. Performed By: #### m ALBC #### [facility] [address], [place] [id number] UCREA 222 mg/dL Normal 39-259 [facility] Comment on above: Performed By: #### m ALBC #### [facility] [address], [place] [id number] Q - URINALYSIS,COMPLETEon Appearance (U) CLEAR Normal CLEAR [facility] Comment on above: Order Comment: [facility] performed at: [facility], [address] [place] [address], [id number], Sanipractic Physician: River Anna MD [facility] Collection Date/Time: [facility] Results Received Date/Time: [facility] Reported Date/Time: Performed By: #### 3 4F #### [facility] [address] [place] [address] BACTERIA NONE SEEN Normal NONE SEEN [facility] Comment on above: Order Comment: [facility] performed at: [facility], [address], [address] [place] [address], [address] [place] [address], Sanipractic Physician: River Anna MD [facility] Date/Time: [facility] Results Received Date/Time: [facility] Reported Date/Time: Performed By: #### 3 4F #### [facility] [address] [place] [address] Bilirubin Ql (U) Negative Normal NEGATIVE [facility] Specialist Comment on above: Order Comment: [facility] performed at: [facility], [address], [address] [place] [address], [address] [place] [address], Sanipractic Physician: River Anna MD [facility] Date/Time: [facility] Results Received Date/Time: [facility] Reported Date/Time: Performed By: #### 3 4F #### [facility] [address] [place] [address] Color (U) YELLOW Normal YELLOW [facility] Specialist Comment on above: Order Comment: [facility] performed at: [facility], [address], [address] [place] [address], [address] [place] [address], Sanipractic Physician: River Anna MD [facility] Date/Time: [facility] Results Received Date/Time: [facility] Reported Date/Time: Performed By: #### 3 4F #### [facility] [address] [place] [address] Glucose Ql (U) Negative Normal NEGATIVE [facility] Specialist Comment on above: Order Comment: [facility] performed at: [facility], [address], [address] [place] [address], [address] [place] [address], Sanipractic Physician: River Anna MD [facility] Date/Time: [facility] Results Received Date/Time: [facility] Reported Date/Time: Performed By: #### 3 4F #### [facility] [address] [place] [address] HYALINE CAST NONE SEEN Normal NONE SEEN [facility] Comment on above: Order Comment: [facility] performed at: [facility], [address] [place] [address], [address] [place] [address], [address] [place] [address], Sanipractic Physician: River Anna MD [facility] Date/Time: [facility] Results Received Date/Time: [facility] Reported Date/Time: Performed By: #### 3 4F #### [facility] [address] [place] [address] Ketones Ql (U) Negative Normal NEGATIVE [facility] Comment on above: Order Comment: [facility] performed at: [facility], [address] [place] [address], [address] [place] [address], [address] [place] [address], Sanipractic Physician: River Anna MD [facility] Date/Time: [facility] Results Received Date/Time: [facility] Reported Date/Time: Performed By: #### 3 4F #### [facility] [address] [place] [address] Leukocyte esterase Test strip Ql (U) Negative Normal NEGATIVE [facility] Comment on above: Order Comment: [facility] performed at: [facility], [address] [facility], [address] [place] [address], [address] [place] [address], Sanipractic Physician: River Anna MD [facility] Date/Time: [facility] Results Received Date/Time: [facility] Reported Date/Time: Performed By: #### 3 4F #### [facility] [address] [place] [address] Nitrite Ql (U) Negative Normal NEGATIVE [facility] Comment on above: Order Comment: [facility] performed at: [facility], [address] [place] [address], [address] [place] [address], [address] [place] [address], Sanipractic Physician: River Anna MD [facility] Date/Time: [facility] Results Received Date/Time: [facility] Reported Date/Time: Performed By: #### 3 4F #### [facility] [address] [place] [address] OCCULT BLOOD Negative Normal NEGATIVE [facility] Comment on above: Order Comment: [facility] performed at: [facility], [address] , [address] [place] [address], [address] [place] [address], Sanipractic Physician: River Anna MD [facility] Date/Time: [facility] Results Received Date/Time: [facility] Reported Date/Time: Performed By: #### 3 4F #### [facility] [address] [place] [address] pH (U) 5.5 [pH] Normal 5.0-8.0 [facility] Comment on above: Order Comment: [facility] performed at: [facility], [address] , [address] [place] [address], [address] [place] [address], Sanipractic Physician: River Anna MD [facility] Date/Time: [facility] Results Received Date/Time: [facility] Reported Date/Time: Performed By: #### 3 4F #### [facility] [address] [place] [address] Protein Ql (U) Negative Normal NEGATIVE [facility] Comment on above: Order Comment: [facility] performed at: [facility], [address] [place] [address], [address] [place] [address], Sanipractic Physician: River Anna MD [facility] Date/Time: [facility] Results Received Date/Time: [facility] Reported Date/Time: Performed By: #### 3 4F #### [facility] [address] [place] [address] RBC NONE SEEN Normal < OR = 2 [facility] Comment on above: Order Comment: [facility] performed at: [facility], [address] , [address] [place] [address], [address] [place] [address], Sanipractic Physician: River Anna MD [facility] Date/Time: [facility] Results Received Date/Time: [facility] Reported Date/Time: Performed By: #### 3 4F #### [facility] [address] [place] [address] Specific gravity (U) [Rel density] 1.024 Normal 1.001-1.035 [facility] Specialist Comment on above: Order Comment: [facility] performed at: [facility], [address] [facility], [address] [place] [address], [address] [place] [address], Sanipractic Physician: River Anna MD [facility] Date/Time: [facility] Results Received Date/Time: [facility] Reported Date/Time: Performed By: #### 3 4F #### [facility] [address] [place] [address] SQUAMOUS EPITHELIAL CELLS NONE SEEN Normal < OR = 5 [facility] Specialist Comment on above: Order Comment: [facility] performed at: [facility], [address] [facility], [address] [place] [address], [address] [place] [address], Sanipractic Physician: River Anna MD [facility] Date/Time: [facility] Results Received Date/Time: [facility] Reported Date/Time: Performed By: #### 3 4F #### [facility] [address] [place] [address] WBC NONE SEEN Normal < OR = 5 [facility] Comment on above: Order Comment: [facility] performed at: [facility], [address] , [address] [place] [address], [address] [place] [address], Sanipractic Physician: River Anna MD [facility] Date/Time: [facility] Results Received Date/Time: [facility] Reported Date/Time: Performed By: #### 3 4F #### [facility] [address] [place] [address] CT CARDIAC SCORINGon 022 CT CARDIAC SCORING [...] E78.5 Hyperlipidemia, unspecified. COMPARISON: None. ACCESSION NUMBER(S): [id number] ORDERING CLINICIAN: KATIE SALGUERO TECHNIQUE: Using prospective [...] coronary heart disease events. According to the [place] Clinical Expert Consensus [...] P et al. Circulation. 2007; 115:402-426 [place] Loan Operations Manager: Dr. Karissa Reyes, Date: 12/01/2021 2:10 pm Electronically signed by: NOEMÍ MCGARRY MD [facility] [address] Consent Formson 07-07-2021 Consent Forms [id number]#1.00O [facility] Provider Orderson 07-06-2021 Provider Orders [id number]#1.00O [facility] Consent Formson 07-02-2021 Consent Forms [id number]#1.00O [facility] Coding Summaryon 07-01-2021 Coding Summary HTMLBase 64 AzzkwcldRTh2gUv+PGhlYWQ +LF2IMMBjC77wbLZcjE0WE9 yHRR6JLSRXNWRYGW3MDD5mt UU4FBhdN7RzoqLx YcoaeUTlRJ01IDg9CPU3lRe cUFtjlW5exRWfF6k2CzQbQE 24hX58QTtvOPUmFhY0KuIds jsgbWFy A3lyMiMthAWqQbk+PHRhYmx lIHdpZHRoPScxMDAlJyBzdH rgZO1xWr8oANSqNHFgrCtxg HNlOiBj e8lvCTBrMMkjTL2ysInlM6Q hiBT4XDUdq7n2Au88qTZ+PH ZpZNF6oLrpGQmso251FoQtz 4lwKSE3 qUPhPAjgJVB6B32me8B4DBB oTZAoMIR0vCZ1gQ6ctVxyuy cnW9GrlDWoBjG1RPI2mSScb N6laNqz bwukgB8fYpb+I63QCU1KNKZ UOH2YAlw4S8SuYwocgRQ+PC 99MOHuZQ00vDLobNLfl8dvd Ye1DdIh IEMlJDI4kPkhDKxhu1MvDSN hR62jpFXlv9N9SFOmsVxlaT UjDrItfMC2cK5lFRmurkqom 2hvdzsn Otndy6qaeg60wD28S42tYDe dWBOlUDI2UVZaOHNmlAoedf 0nmV4rKf2+FWqic1qsy3asj Fe2RgYr PMPcptLjaDvcVIE5p5ErJx0 6K7FjtWzfs6DqIwg3jk51sU Yai8Q5qOJ3TPktZGKrsM7mU WxlZnQ6 ILJsJvNclP53pEZpYIwoRp4 riDzpaPlhKG3bGJGmwpzyYP PpuF2fAONtnGPsfSnoVT8oN TBpbjtm z714XqMoNZX2IBTowSCjE2A rsH8eJcSxLAOmLKPfS9RmgM GhVCzmN773DIiwGxG4QTGxs wCtL4Qu VRDgmUywAzE4m4Q6Zm7Nl6F yfpclMRS7GUtuEFK1IbAfLm TrPjB5Y4HeVld7GJJvsLnzC Z4jC6Ln ORLtjuwiwejtiMH3UTSrYDZ rvN01xWMeBFbaWh7hl6B9w1 96HOAfLEKrhX43Cm5poRmmJ TBwdCBU bI0kkfsao4hwkvvcGlGgJNC oNKu5NWv3NIFzsWmtSuHpWR B7HeM6WHM2rMJnhS8zkXvxf iwhuS4h Oyc+N43ohM4kDJS0RYQ6igh aVYSsmgRbQU63PL97N3AlDh wvdGFibGU+PGRpdiBzdHlsZ U4nXyTm b4csv0ThNXkmJ9EoFHNlUDs lYkf5RFUmIIC3fLB1rU4nHZ ZeFWtjk2A8iQM8E7VsceFcf h2rj5fy DXUbUCsqP40wnLJjo0Q5YEF jaHM7ZRQomLcjIlCacV94Vx c+MJUgwGioc1KvVmyqq5gbr 4exxEt9 LbCvFTYalkJbuFooZOD9r2X dPz58H40vOPnqVMJpSWShFI PtWNJosKpomi4fxC4pBh6+P GNvbCB3 cYN6lM3aCGZnKjJ6FFqpD97 9HgUoaAGhFiyxx4fif3bwfQ k4BeGvLAUqigNpwEgvTPF1l 9YkVf05 Z95oNMasLPViIARmRLGkOOZ kqLjfdz7rrO7xLx9+PC9jb2 wnag49bC36tVS+UTLoHYC0m WxlPSdw CYQukC3uJAswDcD5EVVbAbK ooS19pYVwXVexQl0afHozsD uzWV4rMNGlulqtt882IhJkm 2xkIDEw dDPeVGcvVTS1B55yh8I8UDM nYHNhXKX3mZE9iP1xfQtxiu ogbGVmdDsgdmVydGljYWwtY HzwG574 IHRvcDsnPlBhdGllbnQgTmF cMGn9Z1IfPtt3NAIhdAcxCU 4jtNLaCUlyNd0baHzdrYokM E3hQOYm zlvqb983PnTgt0rmQQUnmFW lCGfdOYQ4K18sj3Y3MEWkZK JqSAC1aVN7kW5eiVlmqbvie GVmdDsg vyMcjQgoPCsyNPbbD905TYJ nhBcuGsQrthAwAPSphAJ6ZY 14DB85yHAef3P7fIL0O6OqA GRpbmct nmqogLX4CAUfVSSyxH07Pg4 ppXfuZo7rWCRxVKQ0NNYmuD YyT3WcdX2wTaKnRUIkZJGpL 3RleHQt URrjK201UZxlHeU5PRDmgtQ cL1NiOIBxySztMyD1b1Z2Dx 8FC3K9WS83MB21iOBlm1D9n QH1A9Gl IEWsiyweddagpJS0QTIyYUH nuD53Wm1ciJsaFr5pRCCdIX M4RKJxsBYiM2QlcK2gWwXhN DAwMDAw H1VukFBxAJpaT733JEvfPhC 2WQMuxvVfT4IpXQSjzTiyJb Z5h6I2Ib9JITq4CV45FC17t FPup6B6 cCK0C5RzEMYruhvggdkowQQ 1NJYvOUGhfG74Mu8vjDufQy 1mSRKcOIX5QFJouAGlL7Agz B1sVsXf EPWdCERtW9QdpZAjDIuiX76 5ICjeVaT4LOZxadHkS8PmFP KjwTugAqF6x2N4Xm3ERAQaN F54BDB2 nRA6EA79VI26E8KtInckhDP ibGU+PHRhYmxlIHdpZHRoPS chXFGoLwDkiGxiWH5hBw0uY GVyLWNv qWozmHImGzMwy6ntYBEqNHc jJZ3hbDzwF5YhfVE2ARPic6 r5Ql90B50wB4XdrGA+PGNvb VX3zAV4 oY1bWyPxQzC0GPbdL690KjJ xrPDlXnigc7ycg9droBl7Eh D0XNJoleKtnSbyGXB7a2NpJ y58M11t IHdpZHRoPSIxNSUiIHZhbGl nfk8lxN8vBs9+FHFilRI7cG J9uN1lKjWrKdI0ZCmdY465Z nRvcCIv Looru5lev5frpEu0LoLrNDU basDpeClxKGB3l6HqCl11I8 XjbQxxl9BrDkx9qn26mNHxg 0C7nPU4 B8KkDHBfjtotpBRrcEghTL6 eACZcbdgqYYTcgH1qDNIqY0 z7HkNvMeY7DZakC1TaisL6Z DEwcHQg LKmmRIK0A36mo2A9SWFhSDZ pMUV1aXY5mA4lhTxhavmzrG VmdDsgdmVydGljYWwtYWxpZ 246IHRv oJgdDVJdzI8fIFMxqWOxsUt iAQ2nNGNqctnrNgOQDq8GNd uuTltVXkRHFY53UZ31fWPbv 6A1pPI9 B7WmOZRuamkftjgtvIL9ENL sYBSzfF79jERhDUmvTr0mn0 U2l967EDFtJSGadL74Js7qs DogMTBw iFIWhR1xiizpb0ylygoyByS bEYLvJEn5FAj7PZUybFnkDn JwRUK3UvP7ENV5tLWwuJ1pm Glnbjog uK3nBbz+QUBlKRNbRJk9LNx vdGQ+NQGtIFI3cXdmZTtwFW OjeS6pWGVjZ0m9NlWlCiC1F MaeP3He QDXhriiwWq40sA1yAyVcRwW 2YMepG7KymsS1TDQgtSSeYC dgMQU8N50mh6H5UQGrDKWpS PB2tSM3 sH9yfBzqmaqszYGcpSxmosW dlXzxQShyFJoyJ230BFVyqA boTcRkJZwfHQSrVP18NG48g SXuk2G4 hEJ6L0HaKEVnfpnsbirxvDZ 6TVAnCDLhgX78cLWbDFpaUe 6jk4D8b150BORyTYYjpF52P c5gaMnr GLVitMDFtI1fryjzm4hkoog lVjVeHZOrLGp6ENn8GOZdrL mxVqEiYVX7OdA0CFD6uSTjg N0upMck tydxwN2rFyf+TUFMRTwvdGQ +OBJzVVI3nFgsARxpYPEufA 5rMPLoP6x6OvEfWfY7OVdvT 3BhZGRp rhzaUo42tO1eMpFoCoL4HYf cK1AzxmT2BEVklZZvOLtsTP M4S58hr9I7MBIqOXUwZGB0u MI9yH7t bGlnbjogbGVmdDsgdmVydGl pPSalADwsB133SGUleCoaId LwyWTEdEUcBEY8XF28VO76B 3RyPjwv dGFibGU+PHRhYmxlIHdpZHR zICcmBWHgMbZfeNnsYW4pKd 9yZGVyLWNvbGxhcHNlOiBjb 2xsYXBz GYllWZ5rlWwzD9KkaVO9DNK xb2n8Hz35L90cP3QzhNM+PG AxwAG1mIW0hA3cVfPxWbN9K MymI709 KoUeqCRqQfxiw2vxr3bdlOu 8IaTeQNRcfzMseZopSAQ7a6 DjFo81O19uXZqxMOQyNJNjG CUiIHZh uIvqke3hkR1cTc7+PGNvbCB 5lHP2bZ6gHnAcLzA1URvwL7 13QfMjuZRjMfepG84qX3Fqs XA+PHRy Bxu2DRFgwDorKP7jiGEoDVq nTg4eHBW9QpEsJqGlNJcqM4 VuTOUphlgnoqvasEQ2COTpN DUwaW47 Ci7rsGnyUy6nLBPzQMK9PUH ibYPiO5ChuN5rIzItPPSqFS BuB7OncOUqPWriH967XFmpB oB8QIVv hdNaO6OcIDHjbVtpAeL1h0D 6Il0MeCkguUQuDZ5dZfRyZD e4G6ErCeh6JXVepPwmFW6sf GFkZGlu Dy7xxFrfxIxpTH8aCYNucab dh658AxRur2agDYMeiBKgMW nkZCN6E55en4U0KNIcKMTsT QB1rZQ7 tK0zwWnnpdrafAKjfHqjluI djGtuXOjzKDdsA988HXVmpM itQgLCGjl6B1ZvEyr5VOVcb LtiOZ2b aHYrBCoqOr5jaOhxqBjeJW5 sGXHyuxlvf019TkUix5ovPM EpgGPdJFqdHPR1Z30ml8V6Y CMwMDAw ICI5vNZ2dR1wsNbbymxtdUO mdDsgdmVydGljYWwtYWxpZ2 55WXVzkXknTk0IIvq3W9MkM tp7PISj yNzgOB0cbTEqPEwrIv5pfPp wiBfsLG1lTFKncsfdy722Ht Ccw8qtMMBosTLoKEdfWOS6S 01lt3M6 LMHbIFMwZUX4mDV1rY8qbNb nbjogbGVmdDsgdmVydGljYW nuBQuuA031EQTvxRfjBoMjr WVyOjwv dGQ+VR43qp36O0MlDxjsQrx 2DXPrTIQ0dSI7nY8fXZBjCE ufd8F8xRE0D1IhcaZwyc2ke 2xsYXBz ZTo (more content not included)... [facility] Coding Summaryon 06-30-2021 Coding Summary HTMLBase 64 SpwjmisqSGt7gGs+PGhlYWQ +NT2GADSvN99qtKGmzK7YQ5 nOUC5GTPVOEXGSKB1LVN8ng XR0LUuxE2AukeQf ExbdoCHrOG09NTl0WBL9iZb eAMygsL2pnKFaV9c6XcJoVA 95kA47WYqtDFWlMlC1JaXjp jsgbWFy G4ojVdAesRWtXcj+PHRhYmx lIHdpZHRoPScxMDAlJyBzdH xbLX2pSd4fQYXsSWDmzCjbd HNlOiBj q7yjTVQqFGbqGL3qcTufV0Q fxXP7IMOzu3q1Fu43vWW+PH HtGQD0dTlvJWoxw449KeSvw 0aeFGQ4 iLQbNUkiXGK7O42ay3Y0XUM rLGErSAF5sDD8rL0suWsntd vkI3AtsYHvKaL9LWB6oUJzy D2buDvf fimdtH7nXzf+L40VCP4CTUG JMU0ECse6H5SmNgfzyTS+PC 20HKRfHQ15zQJzgQZvi1cdm Ob7WuZy YUIbYIW4xSsjABpvb1VhLMJ jE73wsJXnd4P2AIZgfXfwhZ DbKiNioQX9bF6xNMkdvkpdg 2hvdzsn Foxzk7apyn10qU23F12dMBz uIORdQZO2RQFcUZAgqWkteb 9orJ5bSk2+UVygn5myk1haw Pa0YvYn MLByjcRtpWocLNU0d7JrYq1 3N6IudJsuw2PxChd2sn05gO Igo4G5wHX0WFeiEYZxvS2fN WxlZnQ6 DBVgSdGbtK76mSNyFItvPa3 jcJkbzBauBH7tKMVltrelFF QlkU6bFXPvwKGpuLpzQD6eR TBpbjtm h796EdScLKE6YODjxOFdQ2S vzW4dLiXxAIOnWLDtV8SjaQ VaGKkvO830BAchAdT7LVWua yYkY6Lu GXYdzAebEfL1i1P6Mk8Hf1T ptlbvEGV9DMuiOHJ8XpHhAg SpJyH6B9VsWnp0PTLmrFbfU J2tF1Vr QBRpkrrgdvsxkZB4CPPqHLT snQ49aXEuBTwzGb0el4F6t4 05LQOcFQGhiA93Qr1seKmpD TBwdCBU pL9hfmjwo4xmarupWpIoYBE jFXe9NOl0ESSroNdaZzFsMK T7PmT7JJR0qVVybA1aeNsuq llrbF8p Oyc+D21oqW6oDMS0BMH3lpu cDXOgtzSwCD44XY29A0ZnTq wvdGFibGU+PGRpdiBzdHlsZ D1eNcVm p8vws4IfBRueT8ClJLZiIYi oGax3IDAlAUK0kCP8lN7hMX ZyDIkjh4Z1wLA4O1PbuyXer r0iv8ub VANaWIywP38vwRIdp7A8ZPL ymFR5KWJsxDzoOoByjM04Pa c+QCPaiChek5NtQlehj3hhz 9qrsCp4 TpDpJCNhffItdWsbXUS3d4N aOx51A20oONtpKIOfSIXkTS KwULHsaVardx5ciI7bJc7+P GNvbCB3 xGZ0aY8zKVIsJzS4YRwbB98 8VbCxdLJdMmrfg1xxn3xzvT h7OwAoODYkilNwnTdnGYS8k 6TiXy50 L03vAVahQIXpXRWkFGOaWKQ nqJpdoc5haM9gIr7+PC9jb2 ikqx55eB43aCU+IBPwXHN8y WxlPSdw INIglV2kGCfgHiW4DOCiXrT rtA31kFTzMNshKs0kaYhqbL qzLK6qYKYdedlaq117LnMho 2xkIDEw jXCqUPsxZSQ1S04or0U9DMR oTZBjMMM7sYU8wZ7arLpudr ogbGVmdDsgdmVydGljYWwtY SosG027 IHRvcDsnPlBhdGllbnQgTmF hBPg3G2QsAri8GONadYahQG 9axQOlTYnnXf2rdImtqJnsO X7qRUXi ahkpc783NiFxk8vmPTKgpKA yAKuaTMU6B82eu1C3ZTQvSQ DeBUL9oRC0oQ9rhLrhixery GVmdDsg xyZxmQspWUakCFkoA963IYE diLtxFhBiqyElCNFtwFG9ZN 54OE65pIJhi1M4eFC3M9GxC GRpbmct vsjcdTN5XTVfHZMkdK67Lf9 ucXrpEr8iILErXSR1HMOdcN CvJ9PriU3aXhKvVAAgUIQkP 3RleHQt XNjjS695FBpcApT2MOBbqpM wF5IfHPQehVonCtA2x2Q2Pe 4WT8P1YT73ST43rNJjx3X6v HA6D0Bz KEDmqamekmzdlMB5IMSmADE ocG60Yl5emAalFw6dVYSgTG Z6EHFfoZDtP6SekD8iNjZwO DAwMDAw N8TdcGKsXHjgZ122PLcpWeH 6SJYljnXcT0WcYVMplKexXm J4f1S1Nd0GMGq1ON08TE01v DEdl8L7 xZQ7G1NvOZTtonemzcugiYX 8IJCyKRXvbA17Zk8ewStdLu 7cRNBvTTA1QTZwfTKuZ1Lcr R9dLxNv ZMDtWIQfK3QdaMBxBOikY48 3LXljJdT1LMQqvkTkM1VcXC ZskQeaOyJ5s7A9Jp9MBTJzD K49MOY3 gUD9KR26OM07C8GhRrjvfQE ibGU+PHRhYmxlIHdpZHRoPS rxUJLqTaSheKlzEA3mEq1eE GVyLWNv oIwugCIpAfXjq1deEHVgPKo xHX4skXfsQ4VtfUO4XRRkw9 c8Uv72W50fX2BtiWH+PGNvb UC4rVS6 rP9wIfPhFdF3UMtnY323EeL esAGbBaiov1val9mfwLy7Ec S4SBSjyaUyjMhiVNG8z3KrK q78R86l IHdpZHRoPSIxNSUiIHZhbGl vsz8dkV4pBl4+SAXfyBO6yK O8nA6mSkCeZmU0EHaxG033Y nRvcCIv Sotph5gxh7kbsWe4WoSoAEJ pbmQhjQdrHNU6d5VzMz52S8 XelEqyv0UxDlj0jv41eYSez 5R2aNF9 H3GwFNBwzmrjqAMgpHtqJL6 xSQTuiaerBUQiaZ9nSWZpX3 n7BfVfScG6GBtxY1VkqxP5T DEwcHQg MOhhUQH0D06zp5I8CGCpBQZ dCOI8fRU7bY9ndPgokcgoqK VmdDsgdmVydGljYWwtYWxpZ 246IHRv fFvgJYEsqS6sZWSmlHDfqGg wBB9mKLQlfyeiFbDSZr1QXb ynYzsTRkJGIW87PJ24sYAqr 6J1qJH8 L2QpLLCscondoxxinOT3CTE nVLIyvC97gPRyRJmfFk1xn2 R8c893BYUyJXWmtX75Tb8vp DogMTBw iBDYpL5oleyxg5riymttHqD wJDNyIHc4YDe4FRYmgZdsKt PyOZX9ZbS2ATG8kURcdK8bl Glnbjog bI6nTos+CWGuRVDlTOk4ZVm vdGQ+UJMiNTV0qQemCRwhYS TogV2lTIXdA3g1MxVqUuF6Z FrmX0Na JQCpwxbhJh29wI1pVfVzRvM 4AJzpF8FisbX5BUNxzKAnUG cbTTH9E81pm8A7VDHnRPPwK SU4bAF6 tV6yyLxekideaMVgiRxzzdC iqYewODoaUSiwV951RAWwpV rwTqJzVWcmGLGlKY73OC16b VKuo6B9 vLL5I5RpUUJbkplplwxjnSH 8UCDkEHRqrG55gZIxGMlhDe 5la8F1n269XNBcJRXeeK10B a7lxYwl RYPvlNJTxA5zxdcva3eywev oTlLuPOWgZHu0ZOu2NFGotT iwWeTuOVY6PcL8SSA1iSYdl U3juXmv lemmtK4dMqd+TUFMRTwvdGQ +LYZzHND8vYtaWCmbQWSpcN 1hCQVwI5j6PaFzSbV7HJhwU 3BhZGRp voyeOg79dK3nBeOkGuH4NSz pD1FofaY9RKKjeEIuZZtxTE J6S29du0Q9WVNkEPZzDWO1s XZ5sS8w bGlnbjogbGVmdDsgdmVydGl bTTfiCGebY361WCFhqOuuYx 0GLO56YM66I5IoVqihpPXkd +PHRh YmxlIHdpZHRoPScxMDAlJyB lpQdxRW3xQg4jLOKjHLUoeL hulCSkBzKdl0kjMMMwKIxyP S7gcJhl Q1PxuFR4FPXav5w6Hc16J88 sD1NlgCA+LMJwcDD2mJZ9tN 4dQgSmUoL7PHanC107OwGyl CIvPjxj f0lib0cyjTf2VkChXZQnseK kwBgnGWM1o6TeVy40E97jEU dpZHRoPSIyMCUiIHZhbGlnb z7fbQ6y Ii8+DTNngEV9aMN3jO4hRpR oNqM0HXpgO706ZrSvzEYmVa knM83zW6MctTW+LPMoWsg7W CBzdHls WK7mbCGgSMvuCl4aPPS9YaA oFlJrJRvoG6BrQBQhgyjanh aywUH2FVAgVNGlnR56Uz1qo IryFy3y ONYfBQJ6TMYknHEmN5IcjF4 sHiIaNCCxNTKjY8AmpHUqIW beL664SUvjGiW9QHIovxWbO 2FsLWFs qItxBaM1g7S6Us9HgLfsbNG lRP9zXnFfCRd7K6TzBla4UA JmxClhGJ7idCQrXFnzIh6yh WdodDog DK2hLALevytow549YgCfo7d cGAFyiCOsBMqjZOL3O25nl0 Q9OPXhKKPoHZO1mNM4kT5tc Glnbjog bGVmdDsgdmVydGljYWwtYWx bP087XKLyiHlsNzQWRue7S2 MgWtk7TBMvcTvnZX1haTBaL NnsOj6r eDeacNdwPY8cLYXpkrvnx61 2HxHky4hnAKUihUZrDOijTV D3C75nz7T2ADXtWIIkBMJ6h IQ6sG4p bGlnbjogbGVmdDsgdmVydGl gFYxxLVbjU855PBOdxIauSu 3KYbf7P7OoNva0OLLucWinP Q2weWYj IPmvQj4ywIlleZbzKO2cDIT pysxzd336HjRvs1tqTPLjzV XjZSshNAC7I90xl6B6AFCjO DAwMDA7 sNC8eO2ziPkbmkxjnPXraDi kasPyjGqnPKfpIKznE057DU RvcDsnPlBheWVyOjwvdGQ+P B52an14 M7FbDzhsKzc0ACRnQJR2wUZ 6uQ9jYSGqPOyfa4K6dUE5W0 QpqnIqrg7wl3lrLEBiISprU 29sbGFw c2U (more content not included)... [facility] Consent Formson 06-30-2021 Consent Forms [id number]#[id number] TGTIFF [facility] Outside Recordson 06-30-2021 Outside Records [id number]#1.00O TGTIFF [facility] Telemetry Stripson Telemetry Strips [id number]#1.00O TGTIFF [facility] Anesthesia Noteon 06-29-2021 Anesthesia Note Patient: AFRICA [...] on: 06/29/2021 15:07 EDT] Durga Reardon MD [facility] Anesthesia Note Patient: AFRICA LANTIGUA [...] All Problems Asthma, acute / SNOMED CT 963528555 / Confirmed Hypertension / SNOMED CT 0939610159 / Confirmed Current smoker / SNOMED CT 640049144 / Confirmed Histories Family History: No family history items have been selected or recorded. Procedure history: Lumbar spinal fusion (64945226). Social History Electronic Cigarette/Vaping Assessment Electronic Cigarette [...] Oriented. Review / Management Laboratory Results Plan [place] [employer]#(ASA) physical status classification: Class II. Anesthetic Preoperative Plan Anesthesia: General. . Anesthetic plan, risks, benefits, and alternatives discussed with the patient and/or family. Patient verbalized understanding. Informed consent was given. Anesthetic technique: General anesthesia. [Electronically Signed on: 06/29/2021 13:50 EDT] Durga Reardon MD [Verified on: 06/29/2021 13:50 EDT] Durga Reardon MD Normal [facility] Inpatient Patient Summaryon 06-29-2021 [place] [address] Patient Discharge Instructions Name: DENISE LANTIGUA : 1980 Patient Address: [address] [place] [address] Primary Care Provider: Name: KATIE SALGUERO After you are discharged if you find you have any questions, please, call [phone] ext [phone] to speak to a nurse. Discharge Diagnosis: Kidney stone Prescription Information: If you have been given a prescription for narcotics, seek immediate medical attention if you have any difficulty breathing or any sudden status changes such as confusion and sleepiness. If you or anyone you know is experiencing suicidal thoughts, mental health, alcohol and/or drug addiction problems; contact the [facility] 02/05 Crisis Hotline -text 4HQRX kg 797839. If you received any narcotics, sedation, or [...] business decisions or sign any legal documents [facility] would like to thank you for allowing [...] below: New Medications Printed Prescriptions acetaminophen-hydrocodo ne ([place] 5 mg-325 mg oral tablet) 1 tab(s) [...] you can keep with you. acetaminophen-hydrocodo ne ([place] 5 mg-325 mg oral tablet) 1 tab(s) [...] relieve symptoms (more content not included)... Normal [facility] MAGR Intraoperative Recordon 06-29-2021 MAGR Intraoperative Record MAGR Intra-Op Record Summary Primary Physician: Jm Brown MD Finalized Date/Time: 06/29/21 15:01:13 Pt. Name: DENISE LANTIGUA/Sex: 1980 MALE Med Rec #: [id number] Physician: Jm Brown MD Financial #: [id number] Pt. Type: D Room/Bed: / Admit/Disch: 06/29/21 10:36:00 - Institution: Case Times MAGR Entry 1 Patient In Room Time 06/29/21 13:29:00 Out Room Time 06/29/21 14:36:00 Anesthesia Start Time 06/29/21 13:35:00 Stop Time 06/29/21 14:36:00 Surgery Start Time 06/29/21 13:44:00 Stop Time 06/29/21 14:30:00 Last Modified By: Beatrice Huertas RN 06/29/21 14:59:17 Case Attendance MAGR Entry 1 Entry 2 Entry 3 Case Attendee Keivn RODNEY, Durga Ly MD, RN, Beatrice Mayo Role Performed Surgeon - Primary Anesthesiologist of [employer] Greeter Record Time In 06/29/21 13:29:00 06/29/21 13:29:00 06/29/21 13:29:00 Time Out 06/29/21 14:36:00 06/29/21 14:36:00 06/29/21 14:36:00 Procedure Cystoscopy with Holmium Cystoscopy with Holmium Cystoscopy with Holmium Laser Laser Laser Last Modified By: Aleksandar RN, Beatrice Huertas RN, Beatrice Huertas RN, Beatrice Mayo 06/29/21 14:59:25 06/29/21 14:59:25 06/29/21 14:59:25 Entry 4 Entry 5 Entry 6 Case Attendee Renetta Dong RN, Kim Beckwith Role Performed Scrub Personnel Scrub Personnel Optical Engineering Technician Time In 06/29/21 13:29:00 06/29/21 13:29:00 06/29/21 [...] Yes Without Pooli (more content not included)... [facility] MAGR PACU Recordon MAGR PACU Record MAGR PACU Record Summary Primary Physician: Jm Brown MD Finalized Date/Time: 06/29/21 15:39:52 Pt. Name: DENISE LANTIGUA/Sex: 1980 MALE Med Rec #: [id number] Physician: Jm Brown MD Financial #: [id number] Pt. Type: D Room/Bed: / Admit/Disch: 06/29/21 10:36:00 - Institution: PACU Case Times MAGR Entry 1 In PACU I 06/29/21 14:48:00 Discharge from PACU 06/29/21 15:35:00 I Last Modified By: Sedny Zamorano RN 06/29/21 15:39:50 Finalized By: Sendy Zamorano RN Document Signatures Signed By: Sendy Zamorano RN 06/29/21 15:39 [facility] MAGR Postoperative Recordon 06-29-2021 MAGR Postoperative Record MAGR Phase II Record Summary Primary Physician: Jm Brown MD Finalized Date/Time: 06/29/21 17:10:47 Pt. Name: DENISE LANTIGUA/Sex: 1980 MALE Med Rec #: [id number] Physician: Jm Brown MD Financial #: [id number] Pt. Type: D Room/Bed: / Admit/Disch: 06/29/21 10:36:00 - Institution: Phase II Case Times MAGR Pre-Care Text: Patient is free from s/s of injury. Patient remains free from compromised physical state related to surgery or anesthesia. Patient comfort maintained. Patient/family verbalize understanding of discharge instructions. Entry 1 In PACU II 06/29/21 15:34:00 Discharge from PACU 06/29/21 16:27:00 II Last Modified By: Beatrice Thornton RN 06/29/21 17:10:41 Post-Care Text: The patient remains free from s/s of injury. Patient's vital signs stable, circulation maintained, return to preop mental and physical status, opsite/dressing intact, minimal or absent nausea and vomiting, tolerates po intake. Patient verbalizes adequate pain control. Patient/family express understanding of discharge instructions. Finalized By: Beatrice Thornton RN Document Signatures Signed By: Beatrice Thornton RN 06/29/21 17:[address] [facility] 06-29-2021 MAGR Preoperative Record MAGR Pre-Op Record Summary Primary Physician: Jm Brown MD Finalized Date/Time: 06/29/21 13:49:25 Pt. Name: GRZEGORZ DENISE ValdezO.B./Sex: 1980 MALE Med Rec #: [id number] Physician: Jm Brown MD Financial #: [id number] Pt. Type: D Room/Bed: / Admit/Disch: 06/29/21 [...] Signed By: Beatrice Huertas RN 06/29/21 13:49 [facility] Patient Handouton 06-29-2021 Patient Handout [facility] XR Abdomen Single View (KUB) [...] Juwan Pryor MD 06/29/21 4:13 pm Technologist: [facility] XR Fluoroscopy Up to 1 [...] Juwan Pryor MD 06/29/21 4:13 pm Technologist: [facility] 2019 Novel Coronavirus (CoVI D-19), THERON LCon 06-27-2021 SARS-CoV-2 (COVID-19) RNA THERON+probe Ql (Unsp spec) Not detected Invalid Interpretation Code [facility] Comment on above: Order Comment: 98096 1 Result Comment: This nucleic acid amplification test was developed and its performance characteristics determined by [facility]. Nucleic acid amplification tests include RT- PCR [...] detected) result in this assay. Performed At: [address] [id number] Floresita Cisneros PhD Ph:[phone] Performed By: #### 6 [id number] #### [facility] (DEFAULT) [address] [place] [address] Progress Note - Nurseon 06-10 Progress Note - Nurse Spoke with pt victorina pantojaing arrival time of 1030 and NPO after midnight. Verbalized understanding. [Electronically Signed on: 06/26/2021 10:08 EDT] Beatrice Thornton RN [Verified on: 06/26/2021 10:08 EDT] Norberto Beatrice DELACRUZ [facility] Coding Summaryon 06-24-2021 Coding Summary HTMLBase 64 NxzsdaibHDx8oEb+PGhlYWQ +AX9HXDJyM21giWJczM5UM5 dFRB4KEEYXGAZVVF4MJF5mv UC6MRatH6JsnbYe MoxnjZMrHZ61BMn2KTB2vKo tWGiclD4pbAMdU5v6BwHeHX 28nE01BRheCKQePxS3KyEyy jsgbWFy H6frIsCilZHqQcv+PHRhYmx lIHdpZHRoPScxMDAlJyBzdH omFA7gZe1iLMIuYLHodRqng HNlOiBj x9uzCIDuGBrzWO6jqEoqY4N snIV9QBIhh5r0Sb77lWI+PH MtNVQ1gBzkVKxgw909ZgNek 0xtDNC2 nDXlHMtnBWW5X32fb4V1YNK qKPEaSCT3lBO8vJ8mbVhodj gcT2OlwVWaXxD9VHR6zQAxw T3lvCum jmrxpS5wLnv+I24PYF0YLSQ CIV4GCwo3P0YmWdwvmMQ+PC 63ZFAeWT06gUQugLIak9ioe Lc4JfAp EWAnVNP3sUahWNitv5YiPLH yH09ilQXex5R6SGErzGwzoL NoEwFyrQF9dR4eAVqxpyjfo 2hvdzsn Oxdhm3chnp88hT99L08bUYb dOVLyDLF7NAMeIHNsjUfpmf 3coI9pUp5+OTjbg1zyf3uoj Zo1EsDv GBDhhtBlwCfjEXK9d6DfKk5 8L5KnxHlui7NkHzm6hp88rR Vee5Y6uGS0VRdhQHApwT9lB WxlZnQ6 GTEvDcAnfQ80qAUvBWomHs5 mkBdooIfoGN9wMNZdnprpMT ErqH6pNCHjtPLgyDueOX0vV TBpbjtm d471OoXfXAQ7DVBdmVEhC0B xbL0fDcMlRTXnNFMrQ0JlmA PcAYduA603EWdjPeB5WVHzd sUjM9Bb LJOxnDnlWnB8g0U6Db9Fe3P pakusDIU0LGycCJP8DgE4Tf DhAjV6H2QgUlr5OKAmtFlzE Z0gB0Ge SBTvmrmmrxurlHI1VWCuUXU vcZ97fUTxWCceQo2eo3S3n9 95XKUjOPTloZ94Tt3owUkeC TBwdCBU uK6jnrcpy4psqvzmNyMbTSC cZUh8JEy4RDLwsAluHlYiYT R2YvX0AOT5hTNyhT2ykWxyz dtxtV3k Oyc+A98twJ4tRSF1QPO8daq iZHTsuhYzAF90EK56J1DiSe wvdGFibGU+PGRpdiBzdHlsZ C5aOpCx p0thn6IyWIttZ7ZuZDGlPKk eKau4SVHeITN5nXQ0mK6hTS ZxUWrua5R5jKQ6W0IftqBgu u5ld4hv QDLbMAjgN31mlDVal9P2VBH vlZZ9NQVmcSfyKdEwmC43Bu c+NQJbiCrke7TySasji0txg 6lniXu2 EsNzUGNxpiPyzIzaXCX4y1X uPx81Y89cEDmsTPJyLMPfNF ReQHKoaOatay5vjF5jVw0+P GNvbCB3 nWF3vV1xNTZvDhD9DXvwL16 0QnMyzDQaBdlon6xzt3oofD f3YtHaYOOeigYymDqyIYW9y 2DwSu61 J36sGObzZAQaDTUfGAFaNWP tgHvinu0kzI7jAd5+PC9jb2 rmuy33iP92iUM+FNJjSIP2e WxlPSdw YVLiuO5hWAbgAkR2RVFbCoP rgT90dFMfGVqnMn5jhXzttB ujXD6nFRGvwcjvb156QsVlv 2xkIDEw fUUwDRfuIPY7Y74ls9A7XJE vTWTzBCG9wHA1gL3vqRwjvp ogbGVmdDsgdmVydGljYWwtY IzpJ323 IHRvcDsnPlBhdGllbnQgTmF vAXi4D9DkWwg2QWXhcQbyOG 6drTZeMVyiBy3cpQmxuUmgY D1fANZz lgdot311ChZgb8wtPWGmcQT jUTcvLKV2R92ih9R7XWEiHE VoXZY9wHZ3xX1sxWvryqwdg GVmdDsg hxQkoUriXJnvJDuyS787JVF nyFfxPpFhbxVqCQOkyTQ2WA 86VB06lGXcn6V3nMN4W7ZeN GRpbmct pdihwTU0ICXvALVpgO81Um4 qbUylRf2gPCItPBC6SZPelM EdG2AlqP4aKlHoFDTfUTWjB 3RleHQt NIpeZ559HQkhQkK4TMBfcpR dJ3QfCEBzdYntTbQ6l7P6Sl 2UP1R4CB41AY02bEWeg3R5l GU4P2Hl OZGomxtfnokzkAS7EJAcREM biU22Cp7opQglOi8fSDCxUO S8CZHqsTPjP6ZxaV3xZzOvW DAwMDAw Q8MtyBVpWXhkG488UYicAvF 7JFYumyUpY2IqAQNqoDjuZw G7d2T2Vr9OJCr1HF59IQ21f STjo5Z0 kTL6M1JnQCMjmbrzqrotgYT 5WTTsGQPuiW06Pz1sjGbpOq 2qCSOgQDW1TVPniORpM1Lpp Y6aBtDn QBIcQLXnD2JduJJpEQgkE61 3ETcmItG0OTZgmwDwT2MhVH NgxPntIyU1f9U4Xy8UGRKwM Q63OXM4 xPU8LI02FB99K7XcVlshbYX ibGU+PHRhYmxlIHdpZHRoPS yaKSZwFjOpvNglSQ6kRh0sC GVyLWNv zXouqQPbYkBmm4quOABvVEl uYK7xhVvxB3MyrVL4KJSlz6 l7Qp76I82dQ7UluDH+PGNvb LO0nGP6 vP3aGmLqPgQ6FSkfX397CnR wxIVdKjrua0ofv3sxoHy2Br J4HJJzhfAoiYitMDN1v5IdN z43Y36q IHdpZHRoPSIxNSUiIHZhbGl egd5lnX9aUp2+AFSooEP9wL B1kO9fRuIxNwY3HOjoS317E nRvcCIv Cfraw1iuw5ihcZt1MnUqQPC yuzXuvSzwFDJ4o6ViLw17C6 FxgBjzm1UjFje7px46kVTqn 5V9tFT6 O0WcDFRrmjnyeIItuNszMR4 hHVXuchnsLQEunK6kBFYmO7 k8KaXkIdF4QEttG4UcddX5L DEwcHQg VZdjDDK3G32gc9G9OAXeQXX yWCY6mOE7mD6ugIgmxzhzaL VmdDsgdmVydGljYWwtYWxpZ 246IHRv xPioPXReqF9kIFVdrGBioCl yKO8kCGUgcxioAdYAEr8OWb ghPgnIIqNTAU22FC89kBAzi 7B8cWN7 C1KjEYWezvwfxvhsqDY2UCF uCXLhkC25zZDsBKuxHi6ul0 H3d718BRZfIRUnyZ64Qu0vu DogMTBw eNUKxH9dbqrcf9bnyxpoJiB dMOOnBWq6OWs1TYDjmXuvDx SqUOK0GnN0HXD7sTOurZ5zc Glnbjog sS4aEva+EFUpCXPlNPz6FAy vdGQ+NUEdKYQ7wFfhNQmuUN NgoU3hCAYkF3j1NdOyGtZ4D KcvK7Jg HRZzvdqhPz30fC1kXyPuFlU 4NTunI0ImfxG2GGRmlIGzXV zkYLP7A67uy4P4MPNfXMHdX TO4rPA5 rV0ulEiuxjoxjNDerExqjnF jgNsqCRyzNNolJ491MNThpY ahBmFjSHseENYfGG63HO93o DBke1Y9 lWR4B3UlTVFdwrurimwvuLX 0OYToXUDbcR20fIRzVWcuQz 1ec8I1k995ETQpQJXzyD94D t7dsQyu KCVuxPUHoN0efcwhu8vxkie dWlAgBBCdRQv9UGb3IXZcmK irWkCdPTX9JeI3FAO2mHDlx D8tjMij pvkhjF9kSyn+TUFMRTwvdGQ +KMQnXZV7mRslDXoiHCVkcO 5lQYQzT5l5UiOeVwC1CCqrT 3BhZGRp dvxyDc83vO3qVxCeEuF6RAj kX6ShvjW5XOUrkXArVDxxOW H3B48ii1O6YBYeHCEiWLF9l YO4aE4g bGlnbjogbGVmdDsgdmVydGl wNVybSBasR181MLZdrAgkUc 8ROW60WV80O9BiJsubcOKlj +PHRh YmxlIHdpZHRoPScxMDAlJyB iyHosFO4lRp8nXDSkUFUykC actAJeErJhs6hkXRXgDPboY A6zfVub J1DclIH8OSOtj2y5Sb34E05 aU6LsoOE+LGCpuXL1uNY3kX 8eOjGbTsP1XPxlX035RuCfz CIvPjxj a5dsa1zszFp2RiNiNPWkoxD qbHtcVPQ0p3EcRx29P94iFZ dpZHRoPSIyMCUiIHZhbGlnb n9psU3u Ii8+TQCmnEX4xUS5sD5cOeW tQaI7OOdyM444JdZniWCbNg qnZ32hZ0YrqIZ+EZOjJll1T CBzdHls CS6ycQCqIVohEz8jZBW1WrC vMzDuCWenU0JzEBObolarxl tpoJO3FMDmHUPqbM61Lg4fv HkaIj0b XXHjIWB2BPNfoCDzY1WyuN4 pMoYsBTPpBFOuD1OucMDsCK zfW574ZVscYgT5CJYhvtLyL 2FsLWFs oZzbQqM5h6B1Yl4XmBhsdTD zJN7iKiInAEh4N3ElTim2AT HwaTloME0jfBYwKXdiVx7nd WdodDog XZ6pBPOyvmbjy638JcBgx0b mOOFvwBOqXAyoSIW1B96nm1 C7YJTwTOQzDIJ1vNR3tA0tc Glnbjog bGVmdDsgdmVydGljYWwtYWx rQ721HAZszYgvIzQDNmp9U0 TeZik0VEHilCmaLR4jzNIqL PayWm5v hViizEjoIA5qZJHeixgvl29 9TrPst2nyHFRzsCPaHHpcET D1U40bb3K8WHRpXUNlAIH6h JB3pJ0u bGlnbjogbGVmdDsgdmVydGl tSQxxEBdnV110UAPhfNqqPk 4GJgd7D5LfWty7JTYgaGkpG V7abBWd SJqoIa7dzLldpTbmZN2sTQV ryxaif266McPzs1bsINTmwH TcLTjkLVG4F51nr8K9DHDoE DAwMDA7 mAU1zV5zqIsakorreIUqiAo qrcNfaOyyFNboUOumP851HX RvcDsnPlBheWVyOjwvdGQ+P E02rd21 Y6HxFjkkHit8FELzOWS9qLU 6jQ3cLVHpTLkpr5D9tAK9Y0 CaaxLquj3px1qpRXFeRMhkT 29sbGFw c2U (more content not included)... [facility] Consent Formson 06-22-2021 Consent Forms [id number]#1.00O TGTIFF [facility] C Urineon 06-20-2021 C Urine No growth at 2 days. [facility] Comment on above: Performed By: #### 6 [id number] ####[facility] (DEFAULT)[address] [place] [address] Provider Orderson 06-19-2021 Provider Orders [id number]#1.00O TGTIFF [facility] .Auto Diff 1on 06-18-2021 Auto Glascock % 6 % Normal 1-12 [facility] Comment on above: Performed By: #### 7 [id number], [id number], [id number] ####[facility] (DEFAULT)[address] [place] [address] Baso Abs# 0.1 x10 Normal 0.0-0.2 [facility] Comment on above: Performed By: #### 7 [id number], [id number], [id number] ####[facility] (DEFAULT)[address] [place] [address] Basophils/100 WBC (Bld) 1.2 % Normal 0.2-2.0 [facility] Comment on above: Performed By: #### 7 [id number], [id number], [id number] ####[facility] (DEFAULT)[address] [place] [address] Eos Abs# 0.2 x10 Normal 0.0-0.4 [facility] Comment on above: Performed By: #### 7 [id number], [id number], [id number] ####[facility] (DEFAULT)[address] [place] [address] 06834 Eosinophils/100 WBC (Bld) 1.8 % Normal 0.9-4.0 [facility] Comment on above: Performed By: #### 7 [id number], [id number], [id number] ####[facility] (DEFAULT)[address] [place] [address] 82017 Lymph Abs# 2.7 x10 Normal 1.3-2.9 [facility] Comment on above: Performed By: #### 7 [id number], [id number] ####[facility] (DEFAULT)[address] [place] [address] 18468 Lymphocytes/100 WBC (Bld) 25 % Normal 14-48 [facility] Comment on above: Performed By: #### 7 [id number], [id number], [id number] ####[facility] (DEFAULT)[address] [place] [address] 65428 Glascock Abs# 0.6 x10 Normal 0.0-0.8 [facility] Comment on above: Performed By: #### 7 [id number], [id number], [id number] ####[facility] (DEFAULT)[address] [place] [address] 02235 Neut Abs# 7.2 x10 Normal 1.5-9.2 [facility] Comment on above: Performed By: #### 7 [id number], [id number], [id number] ####[facility] (DEFAULT)[address] [place] [address] 08895 Neutrophils/100 WBC (Bld) 66 % Normal 44-88 [facility] Comment on above: Performed By: #### 7 [id number], [id number], [id number] ####[facility] (DEFAULT)[address] [place] [address] 66847 BMP Standardon 06-18-2021 eGFR Non AA >60 Invalid Interpretation Code [facility] Comment on above: Performed By: #### 7 [id number], [id number], [id number] ####[facility] (DEFAULT)[address] [place] [address] 20163 eGFR AA >60 Invalid Interpretation Code [facility] Comment on above: Result Comment: Glove Machine Operator yury Kidney disease could be indicated at eGFRs of less than 60 ml/min/1.73m2. Kidney Failure is indicated at less than 15 ml/min/1.73m2 Performed By: #### 7 [id number], [id number], [id number] ####[facility] (DEFAULT)[address] [place] [address] 03194 Anion gap [Moles/Vol] 14.0 mmol/L Normal 5.0-19.0 [facility] Comment on above: Performed By: #### 7 [id number], [id number], [id number] ####[facility] (DEFAULT)[address] [place] [address] 48905 Calcium [Mass/Vol] 9.5 mg/dL Normal 8.9-10.[address] [facility] Comment on above: Performed By: #### 7 [id number], [id number], [id number] ####[facility] (DEFAULT)[address] [place] [address] 32163 Chloride [Moles/Vol] 101 mmol/L Normal 101-111 [facility] Comment on above: Performed By: #### 7 [id number], [id number], [id number] ####[facility] (DEFAULT)[address] [place] [address] 43632 CO2 [Moles/Vol] 28 mmol/L Normal 21-32 [facility] [facility] Comment on above: Performed By: #### 7 [id number], [id number], [id number] ####[facility] (DEFAULT)[address] [place] [address] 72556 Creatinine [Mass/Vol] 0.99 mg/dL Normal 0.90-1.30 [facility] Comment on above: Performed By: #### 7 018909, [id number], [id number] ####[facility] (DEFAULT)[address] [place] [address] 22701 Glucose [Mass/Vol] 89.0 mg/dL Normal 74.0-118.[address] [facility] Comment on above: Performed By: #### 7 526056, [id number], [id number] ####[facility] (DEFAULT)[address] [place] [address] 97542 Osmolality 276 mOsm/L Invalid Interpretation Code [facility] Comment on above: Performed By: #### 7 [id number], [id number], [id number] ####[facility] (DEFAULT)[address] [place] [address] 01922 Potassium [Moles/Vol] 3.8 mmol/L Normal 3.6-5.1 [facility] Comment on above: Performed By: #### 7 070786, [id number], [id number] ####[facility] (DEFAULT)[address] [place] [address] Sodium [Moles/Vol] 139.0 mmol/L Normal 136.0-144.0 [facility] Comment on above: Performed By: #### 7 533107, [id number], [id number] ####[facility] (DEFAULT)[address] [place] [address] Urea nitrogen [Mass/Vol] 9 mg/dL Normal 8-26 [facility] Comment on above: Performed By: #### 7 814298, [id number], [id number] ####[facility] (DEFAULT)[address] [place] [address] Urea nitrogen/Creatinine [Mass ratio] 9.0 mg/mg Normal 4.6-16.2 [facility] Comment on above: Performed By: #### 7 112089, [id number], [id number] ####[facility] (DEFAULT)[address] [place] [address] 13738 CBC w/ Auto Diffon 1 Erythrocyte distribution width (RBC) [Ratio] 14.8 % Normal 11.5-15.0 [facility] Comment on above: Performed By: #### 7 247991, 14371784, [id number] ####[facility] (DEFAULT)[address] [place] [address] Hematocrit (Bld) [Volume fraction] 47.5 % Normal 34.8-51.9 [facility] Comment on above: Performed By: #### 7 627901, 81124547, [id number] ####[facility] (DEFAULT)[address] [place] [address] 21663 Hemoglobin (Bld) [Mass/Vol] 16.0 g/dL Normal 11.8-17.7 [facility] Comment on above: Performed By: #### 7 175666, [id number], [id number] ####[facility] (DEFAULT)[address] [place] [address] 02665 Instr WBC 10.8 x10 Invalid Interpretation Code [facility] Comment on above: Performed By: #### 7 427878, [id number], [id number] ####[facility] (DEFAULT)[address] [place] [address] 07049 Man Diff? Auto Normal [facility] Comment on above: Performed By: #### 7 867541, [id number], [id number] ####[facility] (DEFAULT)[address] [place] [address] 39745 MCH (RBC) [Entitic mass] 29 pg Normal 24-34 [facility] Comment on above: Performed By: #### 7 814957, 08782442, [id number] ####[facility] (DEFAULT)[address] [place] [address] 85781 MCHC (RBC) [Mass/Vol] 34 g/dL Normal 26-37 [facility] Comment on above: Performed By: #### 7 799449, 08603693, [id number] ####[facility] (DEFAULT)[address] [place] [address] 54415 MCV (RBC) [Entitic vol] 87 fL Normal 81-100 [facility] Comment on above: Performed By: #### 7 434213, [id number], [id number] ####[facility] (DEFAULT)[address] [place] [address] 73320 Platelet 372 x10 Normal 138-427 [facility] Comment on above: Performed By: #### 7 919361, 21743136, [id number] ####[facility] (DEFAULT)[address] [place] [address] 63090 Platelet mean volume (Bld) [Entitic vol] 9.5 fL Normal 6.3-10.2 [facility] Comment on above: Performed By: #### 7 948476, 54097032, [id number] ####[facility] (DEFAULT)[address] [place] [address] RBC 5.48 x10 High 3.70-5.30 [facility] Comment on above: Performed By: #### 7 276539, 07052154, [id number] ####[facility] (DEFAULT)[address] [place] [address] WBC 10.8 x10 High 3.5-10.5 [facility] Comment on above: Performed By: #### 7 594182, 71154639, [id number] ####[facility] (DEFAULT)[address] [place] [address]21 [facility]2018 ALLIED HEALTH HNO ID: [id number] Author: Natalie (Shruti Joyce Service: Radiology Author Type: Law Firm Administrator Type: Allied Health Filed: 11/07/2018 11:36 AM [...] RT Fabiola November 07, 2018 11:34 AM [facility] CNOVon 11-07-2018 CNOV Office Visit (NSFRVW ) DENISE LANTIGUA ([id number]) 1980 M Date Time Provider Department 11/07/18 [...] is currently following with pain management in [place]. X-ray lumbar spine flexion and extension ordered. [...] is currently following with pain management in [place]. X-ray lumbar spine flexion and extension ordered. He may benefit from chronic pain rehabilitation program. ? Follow up in spine surgery clinic at 4 months for reassessment Referring Provider: LAUREL LOERA) [[id number]] Allergies As of Date: 11/07/2018 (No Known Allergies) Date Reviewed: 11/07/2018 Reviewed by: Ana Ellis Ma - Fully Assessed Reason for Visit: Established Patient [175] Primary Visit Diagnosis:Lumbar disc herniation [M51.26] Order(s):XR LUMBAR MOTION 4V AP/LAT/ FLEX/EXT [3971703] Order #: [id number] FUTURE Prescriptions as of 11/07/2018 Sig: OXYCODONE-ACETAMINOPHEN [...] is currently following with pain management in [place]. X-ray lumbar spine flexion and extension ordered. He may benefit from chronic pain rehabilitation program. ? Follow up in spine surgery clinic at 4 months for reassessment Encounter Status:Closed by LAUREL LOERA MD on 11/07/18 Normal [facility] PROGRESSon 11-07-2018 Protein mass conc HNO ID: [id number] Author: Laurel Littlejohn) Luz Maria Service: (none) [...] is currently following with pain management in [place]. X-ray lumbar spine flexion and extension ordered. [...] 07, 2018 TIME: 10:30 AM PAGER: Normal [facility] XR LUMBAR 4V AP/LAT/ FLEX/EX Ton 11-07-2018 [...] at L5-S1 with no acute fractures seen Graphic Pre Press Trades Worker: PSCB Transcribe Date/Time: Nov 07 2018 2:02P Dictated by : RAFIQ CANO MD This examination was interpreted and the report reviewed and electronically signed by: RAFIQ CANO MD on Nov 07 2018 2:03PM EST [id number] [facility] 07-18-2018 [facility] Telephone (NIQ) GRZEGORZDENISE THOMPSON ([id number]) 1980 M Date Time Provider Department 07/18/18 [...] given 12 weeks off initially Maria Luisa Javed Issachuan [facility] 07/18/2018 4:17 PM Signed Patient calling back with fax number for paper work: [facility], Patient wants to know how many more weeks are being approved. [phone] ALBERTO Moreira- 07/20/2018 11:20 AM Signed New letter written ALBERTO Moreira- Sarah Mueller RN 07/20/2018 11:48 AM Signed Letter faxed as requested LVM notifying pt Allergies As of Date: 07/18/2018 (No Known Allergies) Date Reviewed: 07/07/2018 Reviewed by: Rhona Coyne Ma - Fully Assessed Reason for Visit: [place] Paperwork [6313] Prescriptions as of 07/18/2018 Sig: OXYCODONE-ACETAMINOPHEN 5-325* [...] FOR* More... Letter Text Laurel Loera M.D. [facility] / [address] [place] [address] Office: Appt: Letter Text Srinivas Franks PA-C [facility] Neurosurgery 07/20/2018 To Whom it May Concern: This is to certify that Denise Lantigua was seen at our office for medical care. Mr Lantigua may return to work on 08/09/18. If you have any questions please feel free to call. Thank you, PRASHANTH Moreira Encounter Status:Closed by SRINIVAS FRANKS PA-C on 07/20/18 [facility] CNOVon 07-07-2018 CNOV Office Visit (NSFRVW ) GRZEGORZDENISE THOMPSON ([id number]) 1980 M Date Time Provider Department 07/07/18 [...] months for reassessment. Referring Provider: LAUREL LOERA) [[id number]] Allergies As of Date: 07/07/2018 (No Known Allergies) Date Reviewed: 07/07/2018 Reviewed by: Rhona Coyne Ma - Fully Assessed Reason for Visit: Follow Up [171] Cmt: Post Op Primary Visit Diagnosis:Radiculopathy , lumbar region [M54.16] Order(s):CONSULT TO PHYSICAL THERAPY [9032] Order #: [id number]: 1 Prescriptions as of 07/07/2018 Sig: OXYCODONE-ACETAMINOPHEN [...] by LAUREL LOERA MD on 07/07/18 Normal [facility] PROGRESSon 07-07-2018 Protein mass conc HNO ID: [id number] Author: Laurel Littlejohn) Luz Maria Service: (none) [...] Images reviewed with the patient ASSESSMENT/PLAN Denise Lnatigua is a pleasant 38-year-old gentleman is here [...] July 07, 2018 TIME: 9:32 AM PAGER: Hernandez [facility] ANES Melvi 06-14-2018 ANES POST HNO ID: [id number] Author: Moise Littlejohn) Clem Service: Anesthesiology Author [...] 14, 2018 TIME: 3:19 PM PAGER/CONTACT #: [phone] [facility] ANES PREOPon 06-14-2018 ANES PREOP HNO ID: [id number] Author: Moise Littlejohn) Clem Service: Anesthesiology Author [...] daily. WITH FOOD Inpatient medications reviewed in [facility]. I have interviewed and examined [...] 14, 2018 TIME: 12:12 PM PAGER/CONTACT #: [phone] Normal [facility] Confirm Blood Typeon 018 ABO/RH(D) Positive [facility] Comment on above: Performed By: #### C ONABO #### [facility] [address] [place] [address] HISTORY PHYSICALon 8 HISTORY PHYSICAL HNO ID: [id number] Author: Laurel Littlejohn) Luz Maria Service: Neurosurgery [...] DATE: June 14, 2018 TIME: 12:35 PM PAGER:[phone] [facility] NURSING PROGon 06-14-2018 Protein mass conc HNO ID: [id number] Author: Andrew ZapienRn) NUBIA Hernandez Service: (none) Author Type: Registered Nurse Type: Nursing Progress Note Filed: 06/14/2018 7:08 PM Note Text: Nursing Progress Note Patient Name: Denise Lantigua Patient Location: [place] [address] [address] Transfer Note: Late entry from 1700 Patient transferred into room/unit PK335 in stable condition. Actions taken: Patient oriented to room and unit routines. Call light placed within reach and patient instructed on use. This note was completed by: Andrew Hernandez RN [facility] Protein mass conc HNO ID: [id number] Author: Beatrice ZapienRn) NUBIA Valle Service: Nursing Author Type: Registered Nurse Type: Nursing Progress Note Filed: 06/14/2018 1:57 PM Note Text: Patient family updated on status of procedure per NUBIA Yeung at 1324. [facility] OPERATIVE NOon 06-14-2018 OPERATIVE NO HNO ID: [id number] Author: Laurel Littlejohn) Luz Maria Service: Neurosurgery Author Type: Physician Type: Operative Report Filed: 06/14/2018 3:07 PM Note Text: OPERATIVE/PROCEDURE REPORT LOG ID: [id number] SURGERY/PROCEDURE DATE: 06/14/2018 INCISION/PROCEDURE START TIME: 1:16 PM INCISION CLOSE/PROCEDURE END TIME: 02.40 PM SURGEON(S)/PROCEDURALIS T(S) AND FACE PAINTER(S): Surgeon(s) and Role: * Laurel Littlejohn) Luz Maria - Primary Physician School Program Director: Srinivas Franks ANESTHESIA: General PRE-OP/PRE-PROCEDURE DIAGNOSIS: Left [...] 14, 2018 TIME: 2:58 PM PAGER/CONTACT #: [phone] [facility] PROGRESSon 06-14-2018 Protein mass conc HNO ID: [id number] Author: Laurel Loera Service: Neurosurgery Author Type: Physician Type: Progress Notes Filed: 06/14/2018 7:24 PM Note Text: Post op note ? Post op left L5-S1 revision diskectomy with foraminotomy Operative pain is better with medications ? Moving limbs Dressing clean and dry ? Plan: Continue pain medications Regular diet PT /OT SCD Incentive spirometry ? Laurel Loera MD Staff, neurosurgery [facility] PT EDon 06-14-2018 PT ED HNO ID: [id number] Author: Olive (Rn) NUBIA Stoner Service: Nursing [...] None Electronically Signed By: Olive Stoner RN [facility] XR LUMBAR 1Von 06-14-2018 XR LUMBAR [...] Localization to L5-S1 of the lumbar spine. Graphic Pre Press Trades Worker: PSCB Transcribe Date/Time: Jun 14 2018 1:44P Dictated by : RAFIQ CANO MD This examination was interpreted and the report reviewed and electronically signed by: RAFIQ CANO MD on Jun 14 2018 1:44PM EST [id number] [facility] NURSING PROGon 06-09-2018 Protein mass conc HNO ID: [id number] Author: Odilia (Rn) Garcia RN Service: General Surgery Author Type: Registered Nurse [...] Date 06-08-18 Within acceptable limits, results in [facility]. Imaging Within Last 12 Months: MRI 02-12-18 X-ray Lumbar 02-12-18 Results in [facility]. Cardiac Testing: EKG in last 12 Months: Yes: Date: 06-08-18, Comment: Confirmed in [facility]. Last Menstrual Period: LMP Date: N/A Postmenopausal >1yr: N/A, S/P Hysterectomy: N/A BMI Percentile (PEDS): N/A Risk Assessment: N/A Anesthesia Review: N/A Narrative: N/A Pre-op Considerations: Asthma: Rare inhaler use Chart Check: COMPLETED Odilia Zelaya RN June 09, 2018 11:13 AM Normal [facility] APTTon 06-08-2018 aPTT Coag time (Bld) 26.8 s Normal 23.0-32.4 [facility] Comment on above: Result Comment: Unfr actionated [...] laboratory APTT reagent in use throughout the [facility]. Performed By: #### C BC, PT, PTT, BMP ####[facility] [place], [place] [phone] Basic Metabolic Panlon 06-08 Anion gap molar conc 14 mmol/L Normal 9-18 [facility] Comment on above: Performed By: #### C BC, PT, PTT, BMP ####[facility] [place], [place] [phone] Calcium mass conc 9.7 mg/dL Normal 8.5-10.2 [facility] Comment on above: Performed By: #### C BC, PT, PTT, BMP ####[place] [address] [place] [phone] Chloride molar conc 101 mmol/L Normal 97-105 [facility] Comment on above: Performed By: #### C BC, PT, PTT, BMP ####[place] [address] [address] [phone] CO2 molar conc 27 mmol/L Normal 22-30 [facility] Comment on above: Performed By: #### C BC, PT, PTT, BMP ####[facility] [phone] Creatinine mass conc 1.07 mg/dL Normal 0.73-1.22 [facility] Comment on above: Performed By: #### C BC, PT, PTT, BMP ####[facility] [place] [phone] eGFR- Amer. >60 Normal [facility] Comment on above: Performed By: #### C BC, PT, PTT, BMP ####[place] [address] [place], [place] [phone] GFR/1.73 sq M predicted among non-blacks MDRD vol rate/area (S/P/Bld) mL/min/{1.73_m2} Normal [facility] Comment on above: Result Comment: eGFR (Estimated [...] By: #### C BC, PT, PTT, BMP ####[facility] [address], [place] [phone] Glucose mass conc 86 mg/dL Normal 74-99 [facility] Comment on above: Result Comment: The [place] Diabetes Association (ADA) provides guidance for cutoff [...] Standards of Medical Care in Diabetes 2016, [place] [employer]. Diabetes Care. 2016.39(Suppl 1). Performed By: #### C BC, PT, PTT, BMP ####[facility] [address] [place], [place] [phone] Potassium molar conc 4.7 mmol/L Normal 3.7-5.1 [facility] Comment on above: Performed By: #### C BC, PT, PTT, BMP ####[facility] [address] [place], [place] [phone] Sodium molar conc 142 mmol/L Normal 136-144 [facility] Comment on above: Performed By: #### C BC, PT, PTT, BMP ####[facility] [address] [place], [place] [phone] Urea nitrogen mass conc 8 mg/dL Low 9-24 [facility] Comment on above: Performed By: #### C BC, PT, PTT, BMP ####[facility] [place] [phone] CBCon 06-08-2018 Absolute nRBC <0.01 Normal <0.01 [facility] Comment on above: Performed By: #### C BC, PT, PTT, BMP ####[place] [address] [address] [place] [phone] Erythrocyte distribution width Ratio (RBC) 14.8 % Normal 11.5-15.0 [facility] Comment on above: Performed By: #### C BC, PT, PTT, BMP ####[place] [address] [address] [place] [phone] Hematocrit Volume Fraction (Bld) 47.5 % Normal 39.0-51.0 [facility] Comment on above: Performed By: #### C BC, PT, PTT, BMP ####[place] [address] [address] [place] [phone] Hemoglobin mass conc (Bld) 15.6 g/dL Normal 13.0-17.0 [facility] Comment on above: Performed By: #### C BC, PT, PTT, BMP ####[place] [address] [address] [place] [phone] MCH Entitic mass (RBC) 27.6 pG Normal 26.0-34.0 [facility] Comment on above: Performed By: #### C BC, PT, PTT, BMP ####[place] [address] [address] [place] [phone] MCHC mass conc (RBC) 32.8 g/dL Normal 30.5-36.0 [facility] Comment on above: Performed By: #### C BC, PT, PTT, BMP ####[place] [address] [address] [place] [phone] MCV Entitic volume (RBC) 83.9 fL Normal 80.0-100.0 [facility] Comment on above: Performed By: #### C BC, PT, PTT, BMP ####[place] [address] [place], [place] [phone] Platelet mean volume Entitic volume (Bld) 10.2 fL Normal 9.0-12.7 [facility] Comment on above: Performed By: #### C BC, PT, PTT, BMP ####[place] [address] [address] [place], [place] [phone] Platelets #/vol (Bld) 320 10*3/uL Normal 150-400 [facility] Comment on above: Performed By: #### C BC, PT, PTT, BMP ####[place] [address] [address], [place] [phone] RBC #/vol (Bld) 5.66 10*6/uL Normal 4.20-6.00 [facility] Comment on above: Performed By: #### C BC, PT, PTT, BMP ####[place] [address] [address], [place] [phone] WBC #/vol (Bld) 10.64 10*3/uL Normal 3.70-11.00 [facility] Comment on above: Performed By: #### C BC, PT, PTT, BMP ####[address], [place] [phone] EKG1on 06-08-2018 EKG1 NAME : DENISE LANTIGUA PID : [id number] : 1980 Gender : Male Race : [...] ms QTC Calculation(Bezet) : 422 ms P [place] : 20 degrees R [place] : 21 degrees T [place] : 35 degrees Test Reason : HTN PRE OP Location : 168 : [facility] Overread By : SHAUN VALDERRAMA M.D. Edited By : SHAUN VALDERRAMA M.D. Referred By : LUZ MARIA, Acquired by : Hernandez GOODMAN [facility] HISTORY PHYSICALon HISTORY PHYSICAL HNO ID: [id number] Author: So Juan (Pa) Service: (none) Author Type: Physician School Program Director Type: HANDP Filed: 06/09/2018 7:05 AM Note [...] Cardiovascular: Positive for: Hypertension, Negative for Recent [place], Angina, Arrhythmia, CAD, Chest Pain, CHF, PVD, [...] 2018 TIME: 1:47 PM PAGER/CONTACT #: Hernandez [facility] PROGRESSon 06-08-2018 Protein mass conc HNO ID: [id number] Author: Ericka (Rt) Shruti Leblanc Service: (none) Author Type: Law Firm Administrator Type: Progress Notes Filed: 06/08/2018 2:39 PM [...] IV DATA: Not applicable SIGNED BY: Ana Leblanc, June 08, 2018 2:38 PM Normal [facility] Protimeon 06-08-2018 Prothrombin time (PT) Coag time (PPP) 1.1 s Normal 0.9-1.3 [facility] Comment on above: Result Comment: Kierra min K Antagonist (VKA) Therapeutic Range: INR 2 to 3 (Target INR of 2.5) Note: For patients treated with VKA drugs, such as warfarin, the [place] [employer] 2012 Guideline recommends [...] Chest 2012, 141:7S-47S Ravi RA, et al. [facility] 2017, 70: 252-289 Performed By: #### C BC, PT, PTT, BMP ####[facility] [address] [place], [place] [phone] Prothrombin time (PT) Coag time (PPP) 11.1 s Normal 9.7-13.0 [facility] Comment on above: Performed By: #### C BC, PT, PTT, BMP ####[facility] [address] [place], [place] [phone] Staph aureus PCRon 8 MRSA PCR Negative Normal [facility] Comment on above: Performed By: #### S APCR ####[facility] [address] [place], [place] [phone] S aureus Spec Source Nasal Normal [facility] Comment on above: Performed By: #### S APCR ####[facility] [place] [phone] Staph aureus PCR Negative Normal [facility] Comment on above: Performed By: #### S APCR ####[facility] [place] [phone] Type and SCR (30D)on 018 ABO/RH(D) Positive Normal [facility] Comment on above: Performed By: #### T SCR30 #### [facility] [address] [place] [address] Urinalysison 06-08-2018 Bilirubin, Urine Negative Normal Negative [facility] Comment on above: Performed By: #### U A ####[place] [address] [address] [place] [phone] Clarity Nom (U) Clear Normal Clear [facility] Comment on above: Performed By: #### U A ####[place] [address] [address] [place] [phone] Color Nom (U) Yellow Normal Yellow [facility] Comment on above: Performed By: #### U A ####[facility] [place] [phone] Comments SEE COMMENT Normal [facility] Comment on above: Result Comment: Micr oscopic not warranted Performed By: #### U A ####[facility] [place] [phone] Glucose Ql (U) Negative Normal Negative [facility] Comment on above: Performed By: #### U A ####[facility] [place], [place] [phone] Hemoglobin/Blood,Ur Negative Normal Negative [facility] Comment on above: Performed By: #### U A ####[facility] [place] [phone] Ketones Ql (U) Negative Normal Negative [facility] Comment on above: Performed By: #### U A ####[facility] [place], [place] [phone] Leukest Negative Normal Negative [facility] Comment on above: Performed By: #### U A ####[facility] [place], [place] [phone] Nitrite Ql (U) Negative Normal Negative [facility] Comment on above: Performed By: #### U A ####[place] [address] [place], [place] [phone] pH (Bld) 7.0 Normal 4.5-8.0 [facility] Comment on above: Performed By: #### U A ####[place] [address] [place], [place] [phone] Protein mass conc (U) Negative Normal Negative [facility] Comment on above: Performed By: #### U A ####[place] [address] [address] [place], [place] [phone] Specific [place], Ur 1.011 Normal 1.005-1.030 [facility] Comment on above: Performed By: #### U A ####[place] [address] [place], [place] [phone] Urine Gerard Comment SEE COMMENT Normal [facility] Comment on above: Result Comment: N/A Performed By: #### U A ####[facility] [place], [place] [phone] Urobilinogen Qn (U) Normal Normal Normal [facility] Comment on above: Performed By: #### U A ####[facility] [place], [place] [phone] XR CHEST 2V FRONTAL/LATon XR CHEST 2V [...] silhouette. Other: IMPRESSION: No acute radiographic abnormality. Graphic Pre Press Trades Worker: CHAKA Transcribe Date/Time: Jun 08 2018 2:53P Dictated by : MAY HUTCHINSON MD This examination was interpreted and the report reviewed and electronically signed by: MAY HUTCHINSON MD on Jun 09 2018 7:39AM EST [id number] Normal [facility] CNCOon 05-23-2018 CNCO Letter Text May 23, 2018 Denise Lantigua [address] [place] [address] Dear Mr. Lantigua, Thank you for choosing [facility] for your medical care. To help reduce healthcare costs, it is important for us to collect deductible at the time of service. You are scheduled for services on 06/14/2018. According to your insurance company, you are responsible for a cdeductible of $1000. Please mail your check or money order, payable to [facility] along with the stub below, in the enclosed envelope. If you would like to pay with your credit card, please call [phone] for assistance or pay online at [facility]. Again, thank you for choosing [facility]. Sincerely, Mariana [facility] Patient Service Agent Please detach and return in the enclosed envelope. Pay online at [employer] Patient Name: Denise Lantigua EMPI Number: [id number] Date of Service: 06/14/2018 Deductible Due: 1000 Amount Enclosed: $ .__ Please make checks payable to [facility]. Normal [facility] HOSPon 05-19-2018 HOSP Patient:Denise Lantigua MRN: Height:5' [...] 06/08/2018 51.0 39.0 Progress Notes ([facility] CC): RT Rinku, Tech 06/08/2018 2:39 [...] June 08, 2018 2:38 PM Progress Notes ([facility] FRVW): Laurel Loera MD 05/17/2018 12:19 PM [...] post op restrictions. ? Provided to patient: [facility] Surgery Guide, skin prep supplies, Spine Surgery Pre/post op education packet. Yes. ? Reviewed with patient to report to 1st floor [place] surgery Yes. ? Reviewed with the patient [...] May 19, 2018 TIME: 1:51 PM PAGER: [facility] PROGRESSon 05-19-2018 Protein mass conc HNO ID: [id number] Author: Laurel Littlejohn) Luz Maria Service: (none) [...] 19, 2018 TIME: 1:51 PM PAGER: Hernandez [facility] CNOVstephie 05-17-2018 CNOV Office Visit (NSFRVW ) GRZEGORZDENISE THOMPSON ([id number]) 1980 M Date Time Provider Department 05/17/18 [...] post op restrictions. ? Provided to patient: [facility] Surgery Guide, skin prep supplies, Spine Surgery Pre/post op education packet. Yes. ? Reviewed with patient to report to 1st floor [place] surgery Yes. ? Reviewed with the patient [...] PM PAGER: Referring Provider: NATALI SCHNEIDER (ALBERTO) [[id number]] Allergies As of Date: 05/17/2018 (No Known [...] post op restrictions. ? Provided to patient: [facility] Surgery Guide, skin prep supplies, Spine Surgery Pre/post op education packet. Yes. ? Reviewed with patient to report to 1st floor [place] surgery Yes. ? Reviewed with the patient [...] Comments : Post -op Support family Sarah Shankarcarolyne DELACRUZ Encounter Status:Closed by LAUREL LOERA MD on 05/19/18 [facility] CNOVon 04-26-2018 CNOV Office Visit (SPMECO ) DENISE LANTIGUA ([id number]) 1980 M Date Time Provider Department 04/26/18 10:00 AM NATALI SCHNEIDER) SPMDMITRIY During your visit today, we recorded the [...] position. 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 Noguera on 03/14 for L5 S1 Reason For Visit History Recorded Primary Visit Diagnosis:Radiculopathy , lumbar region [M54.16] Other Visit Diagnoses:Lumbar disc herniation [M51.26] Degeneration of lumbar intervertebral disc [M51.36] Postoperative infection, subsequent encounter [T81.4XXD] Imbalance [R26.89] Order(s):CONSULT TO SPINE SURGERY [[id number]] Order #: [id number]: 1 Prescriptions as of 04/26/2018 Sig: GABAPENTIN [...] Encounter Status:Closed by NATALI SCHNEIDER on 04/26/18 [facility] PROGRESSon 04-26-2018 Protein mass conc HNO ID: [id number] Author: Natali Schneider (Pa) Service: (none) Author Type: Physician School Program Director Type: Progress Notes Filed: 04/26/2018 12:12 PM [...] position. 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 MATI Rowley, DK Normal [facility] HISTORY PHYSICALon HISTORY PHYSICAL HNO ID: [id number] Author: Karissa Noguera Service: OUTPATIENT IN BED [...] Lantigua DATE: 03/14/2018 TIME: 2:43 PM PAGER: [phone] Normal [facility] OPERATIVE NOon 03-14-2018 OPERATIVE NO HNO ID: [id number] Author: Karissa Noguera Service: Physical Medicine AND Rehabilitation Author Type: Physician Type: Operative Report Filed: 03/14/2018 4:26 PM Note Text: OPERATIVE/PROCEDURE REPORT LOG ID: [id number] Surgery/Procedure Date: 03/14/2018 Incision/Procedure Start Time: 4:02 PM Incision Close/Procedure End Time: 4:20 PM Surgeon(s)/Proceduralis t(s) and School Program Director(s): Surgeon(s) and Role: * Karissa Noguera - Primary * Lolly (Res) Reggie - Resident - Assisting * Croa (Res) MD Avel - Resident - Assisting [...] 14, 2018 TIME: 4:21 PM PAGER/CONTACT #: [phone] [facility] PT EDon 03-14-2018 PT ED HNO ID: [id number] Author: Ana ZapienRn) NUBIA Nam Service: (none) Author Type: Registered [...] Ana Nam RN In Department: AMBULATORY SURGERY [facility] PT ED HNO ID: [id number] Author: May ZapienRn) NUBIA Munoz Service: (none) Author Type: Registered [...] Munoz RN In Department: AMBULATORY SURGERY Normal [facility] CNOVon 02-21-2018 CNOV Office Visit (SPMECO ) GRZEGORZ,DENISE Kirk ([id number]) 1980 M Date Time Provider Department 02/21/18 [...] Rowley, PA-C Referring Provider: NATALI SCHNEIDER (ALBERTO) [[id number]] Allergies As of Date: 02/21/2018 (No Known Allergies) Date Reviewed: 02/21/2018 Reviewed by: Carmen (Kendra) KENDRA Astorga - Fully Assessed Reason for Visit: Follow Up [171] Primary Visit Diagnosis:Radiculopathy , lumbar region [M54.16] Other Visit Diagnoses:Lumbar disc herniation [M51.26] Degeneration of lumbar intervertebral disc [M51.36] Order(s):CONSULT TO SPINE INTERVENTION [[id number]] Order #: [id number]: 1 Prescriptions as of 02/21/2018 Sig: AMLODIPINE [...] LPN 02/21/2018 10:22 AM >> CARMEN ASTORGA Danielerma February 21, 2018 10:22 AM Not taking Problem List As Of Date 02/21/2018 Noted Resolved Radiculopathy, lumbar region [M54.16] INVALID FOR* More... Lumbar disc herniation [M51.26] INVALID FOR* More... Degeneration of lumbar intervertebral disc [M51*INVALID FOR* More... Encounter Status:Closed by NATALI SCHNEIDER on 03/07/18 [facility] 02-21-2018 HOSP Patient:Denise Lantigua MRN: Height:5' [...] following basenames: K,HCT Progress Notes ([facility]): Natali Schneider PA-C 03/07/2018 3:42 PM Signed [...] satisfaction during today's visit. MATI Rowley PA-C Previous Version Normal [facility] PROGRESSon 02-21-2018 Protein mass conc HNO ID: [id number] Author: Natali Cuba) Jennie Service: (none) Author Type: Physician School Program Director Type: Progress Notes Filed: 03/07/2018 3:42 PM [...] during today's visit. MATI Rowley PA-C Normal [facility] MR-MR lumbar spine wo con IM PORTon 02-14-2018 MR-MR lumbar spine wo con IMPORT Images were obtained outside of [facility] [id number] Normal [facility] CNPNon 02-06-2018 CNPN Telephone (ORQ) DENISE LANTIGUA ([id number]) 1980 M Date Time Provider Department 02/06/18 NATALI SCHNEIDER (ALBERTO) ORQ During your visit today, we recorded the following information about you: Dai Wheatley PSR 02/06/2018 3:05 PM Signed Pt called and said that you wanted an MRI but it was denied. Pt can be reached @ [phone] Thanks Dai Wheatley PSR Natali Schneider PA-C 02/07/2018 10:42 AM Signed Peer to Peer completed, approved. # [id number] Please inform pt and have him go for his L spine MRI and then f/u. MATI Hollis PA-C [facility] Multi Specialty/Spine Medicine [address], [address] [place] [address] Nathalia Jones Psr 02/07/2018 11:14 AM Signed Called patient and have him this message. He will call to schedule a follow up after he has his MRI. Thank you! Allergies As of Date: 02/06/2018 (No Known Allergies) Date Reviewed: 01/17/2018 Reviewed by: Natali Mayo (Alberto) Jennie - Fully Assessed Reason for Visit: Radio Imaging Study Comments [2948] Prescriptions as of 02/06/2018 Sig: AMLODIPINE 5 [...] Status:Closed by NATALI SCHNEIDER on 02/07/18 Normal [facility] C-Reactive Proteinon 018 CRP mass conc 1.7 mg/dL High <0.9 [facility] Comment on above: Performed By: #### C BCDIF, WSR, CRP #### [facility] [employer] [facility] [place], [place] [id number] CBC and Differentialon 01-17 Abs Baso 0.13 k/uL High <0.11 [facility] Comment on above: Performed By: #### C BCDIF, WSR, CRP #### [facility] [employer] [facility] [place], [place] [address] Abs Glascock 0.52 k/uL Normal <0.87 [facility] Comment on above: Performed By: #### C BCDIF, WSR, CRP #### [facility] [employer] [address] [place], [place] [address] Abs Neut 5.47 k/uL Normal 1.45-7.50 [facility] Comment on above: Performed By: #### C BCDIF, WSR, CRP #### [facility] [employer] [address] [place], [place] [address] Absolute nRBC <0.01 Normal <0.01 [facility] Comment on above: Performed By: #### C BCDIF, WSR, CRP #### [place] [address] [place] [phone] Basophils/100 WBC (Bld) 1.5 % Normal [facility] Comment on above: Performed By: #### C BCDIF, WSR, CRP #### [place] [address] [place] [phone] DTYPE Auto Diff Normal [facility] Comment on above: Performed By: #### C BCDIF, WSR, CRP #### [place] [phone] Eosinophils #/vol (Bld) 0.10 10*3/uL Normal <0.46 [facility] Comment on above: Performed By: #### C BCDIF, WSR, CRP #### [place] [phone] Eosinophils/100 WBC (Bld) 1.2 % Normal [facility] Comment on above: Performed By: #### C BCDIF, WSR, CRP #### [place] [phone] Erythrocyte distribution width Ratio (RBC) 13.9 % Normal 11.5-15.0 [facility] Comment on above: Performed By: #### C BCDIF, WSR, CRP #### [place] [address] [place] [phone] Hematocrit Volume Fraction (Bld) 42.8 % Normal 39.0-51.0 [facility] Comment on above: Performed By: #### C BCDIF, WSR, CRP #### [place] [phone] Hemoglobin mass conc (Bld) 14.2 g/dL Normal 13.0-17.0 [facility] Comment on above: Performed By: #### C BCDIF, WSR, CRP #### [address] [place], [place] [address] Lymphocytes #/vol (Bld) 2.34 10*3/uL Normal 1.00-4.00 [facility] Comment on above: Performed By: #### C BCDIF, WSR, CRP #### [place] [address] Lymphocytes/100 WBC (Bld) 27.3 % Normal [facility] Comment on above: Performed By: #### C BCDIF, WSR, CRP #### [place] [address] MCH Entitic mass (RBC) 28.2 pG Normal 26.0-34.0 [facility] Comment on above: Performed By: #### C BCDIF, WSR, CRP #### [place] [address] MCHC mass conc (RBC) 33.2 g/dL Normal 30.5-36.0 [facility] Comment on above: Performed By: #### C BCDIF, WSR, CRP #### [place] [address] MCV Entitic volume (RBC) 85.1 fL Normal 80.0-100.0 [facility] Comment on above: Performed By: #### C BCDIF, WSR, CRP #### [place] [address] Monocytes/100 WBC (Bld) 6.1 % Normal [facility] Comment on above: Performed By: #### C BCDIF, WSR, CRP #### [place] [address] Neutrophils/100 WBC (Bld) 63.9 % Normal [facility] Comment on above: Performed By: #### C BCDIF, WSR, CRP #### [address], [place] [address] NRBCs 0.0 /100 WBC Normal 0 [facility] Comment on above: Performed By: #### C ABD[place], CRP #### [place] [address] Platelet mean volume Entitic volume (Bld) 9.7 fL Normal 9.0-12.7 [facility] Comment on above: Performed By: #### Eh BCMACIF WSR, CRP #### [place] [address] Platelets #/vol (Bld) 397 10*3/uL Normal 150-400 [facility] Comment on above: Performed By: #### Eh BCMARIA ESTHER WSR, CRP #### [place] [address] RBC #/vol (Bld) 5.03 10*6/uL Normal 4.20-6.00 [facility] Comment on above: Performed By: #### Eh BCMARIA ESTHER WSR, CRP #### [place] [address] WBC #/vol (Bld) 8.58 10*3/uL Normal 3.70-11.00 [facility] Comment on above: Performed By: #### Eh BCMARIA ESTHER WSR, CRP #### [place] [address] CNOVon 01-17-2018 CNOV Office Visit (SPMECO ) DENISE LANTIGUA ([id number]) 1980 M Date Time Provider Department 01/17/18 [...] position. 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 MATI Hollis, DK [facility] Multi Specialty/Spine Medicine [address], [address] [place] [address] Referring Provider: KATIE SALGUERO [[id number]] Allergies As of Date: 01/17/2018 (No Known Allergies) Date Reviewed: 01/17/2018 Reviewed by: Natali Cuba) Jennie - Fully Assessed Reason for Visit: New Patient [172] Low Back Pain [126] Cmt: u4dyojw, crushing/sharp 8/10 Reason For Visit History Recorded Primary Visit Diagnosis:Radiculopathy , lumbar region [M54.16] Other Visit Diagnoses:Low back pain, non-specific [M54.5] Imbalance [R26.89] Postoperative infection, subsequent encounter [T81.4XXD] Order(s):XR LUMBAR GENERAL 3V AP/LAT/L5-S1 [[id number]] Order #: [id number] FUTURE XR KNEE LIMITED 2V AP/LAT LT [[id number]] Order #: [id number] FUTURE MRI LUMBAR SPINE WO IVCON [[id number]] Order #: [id number] FUTURE SED RATE WESTERGREN [SQWSR] Order #: [id number] FUTURE C-REACTIVE PROTEIN (CRP) [SQCRP] Order #: [id number] FUTURE CBC + DIFF [SQCBCDIF] Order #: [id number] FUTURE meloxicam (MOBIC) 15 mg tabletTake 1 tablet by mouth once daily. WITH FOODDisp: 30 tabletRfl: 1 CONSULT TO RHEUM/IMMUN DISEASE [9039] Order #: [id number]: 1 Prescriptions as of 01/17/2018 Sig: AMITRIPTYLINE [...] Status:Closed by NATALI SCHNEIDER on 01/17/18 Normal [facility] PROGRESSon 01-17-2018 Protein mass conc HNO ID: [id number] Author: Duyen (Shruti Gage Service: (none) Author Type: Law Firm Administrator Type: Progress Notes Filed: 01/17/2018 11:12 AM [...] RT Jaciel January 17, 2018 11:04 AM [facility] Protein mass conc HNO ID: [id number] Author: Natali Cuba) Jennie Service: (none) Author Type: Physician School Program Director Type: Progress Notes Filed: 01/17/2018 10:58 AM [...] position. 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 MATI Hollis, DK [facility] Multi Specialty/Spine Medicine [address], [address] [place] [address] Normal [facility] Sed Rate Westergrenon 2017 Sed Rate Westergren 22 mm/hr High 0-15 [facility] Comment on above: Performed By: #### C BCDIF, WSR, CRP #### [facility] [address] [place] [address] XR KNEE 2V AP/LAT LTon 01-17 XR [...] NO ACUTE OSSEOUS ABNORMALITY OTHER FINDINGS DESCRIBED Graphic Pre Press Trades Worker: CHAKA Transcribe Date/Time: Jan 17 2018 11:21A Dictated by : MARLY WHEAT MD This examination was interpreted and the report reviewed and electronically signed by: MARLY WHEAT MD on Jan 17 2018 11:24AM EST [id number] Normal [facility] XR LUMBAR 3V AP/LAT/L5-S1on 01-17-2018 XR LUMBAR [...] space is labeled L5-S1 for this examination. Atwf-et-nmzykbqo disc height narrowing at L5-S1. Vertebral body heights, disc heights and alignment otherwise normal. No fractures. Normal soft tissues. No other significant abnormality. IMPRESSION: DEGENERATIVE CHANGES AT L5-S1 Graphic Pre Press Trades Worker: CHAKA Transcribe Date/Time: Jan 17 2018 11:20A Dictated by : MARLY WHEAT MD This examination was interpreted and the report reviewed and electronically signed by: MARLY WHEAT MD on Jan 17 2018 11:21AM EST [id number] Normal [facility] Vital Signs Date Time Vital Sign Value Performing Clinician Kate coombs 03-18-2025 09:58-0400 Body height 175.3 cm Candace Limon INTEGRATION LEAD Work Phone: [facility] 03-18-2025 09:58-0400 Body mass index (BMI) [Ratio] 26.14 kg/m2 Candace Coltchol INTEGRATION LEAD Work Phone: [facility] 03-18-2025 09:58-0400 Body weight 80.29 kg Candace Coltchol INTEGRATION LEAD Work Phone: [facility] 03-18-2025 09:58-0400 Diastolic blood pressure 80 mm[Hg] Candace Coltchol INTEGRATION LEAD Work Phone: [facility] 03-18-2025 09:58-0400 Heart rate 82 /min Candace Coltchol INTEGRATION LEAD Work Phone: [facility] 03-18-2025 09:58-0400 SaO2% (BldA) [Mass fraction] 95 % Candace Coltchol INTEGRATION LEAD Work Phone: [facility] 03-18-2025 09:58-0400 Systolic blood pressure 130 mm[Hg] Candace Coltchol INTEGRATION LEAD Work Phone: [facility] 01-21-2025 15:28-0400 Body height 175.3 cm Katie Quinterocaro SHAW Work Phone: [facility] 01-21-2025 15:28-0400 Body mass index (BMI) [Ratio] 26.73 kg/m2 Katie Salguero DO Work Phone: [facility] 01-21-2025 15:28-0400 Body weight 82.1 kg Katie Salguero DO Work Phone: [facility] 01-21-2025 15:28-0400 Diastolic blood pressure 90 mm[Hg] Katie Salguero DO Work Phone: [facility] 01-21-2025 15:28-0400 Heart rate 83 /min Katie Salguero DO Work Phone: [facility] 01-21-2025 15:28-0400 SaO2% (BldA) [Mass fraction] 96 % Katie Salguero DO Work Phone: [facility] 01-21-2025 15:28-0400 Systolic blood pressure 130 mm[Hg] Katie Salguero DO Work Phone: [facility] 07-23-2024 14:45-0400 Body height 175.3 cm Mable Strickland INTEGRATION LEAD Work Phone: [facility] 07-23-2024 14:45-0400 Diastolic blood pressure 91 mm[Hg] Mable Strickland INTEGRATION LEAD Work Phone: [facility] 07-23-2024 14:45-0400 Heart rate 74 /min Mable Strickland INTEGRATION LEAD Work Phone: [facility] 07-23-2024 14:45-0400 SaO2% (BldA) [Mass fraction] 98 % Mable Strickland INTEGRATION LEAD Work Phone: [facility] 07-23-2024 14:45-0400 Systolic blood pressure 142 mm[Hg] Mable Strickland INTEGRATION LEAD Work Phone: [facility] 07-18-2024 10:46-0400 Diastolic blood pressure 100 mm[Hg] Regina Amador [facility] 07-18-2024 10:46-0400 Heart rate 70 /min Regina Amador [facility] 07-18-2024 10:46-0400 Mean blood pressure 116 mm[Hg] Regina Amador [facility] 07-18-2024 10:46-0400 Respiratory rate 20 /min Regina Amador [facility] 07-18-2024 10:46-0400 Systolic blood pressure 149 mm[Hg] Regina Amador [facility] 05-10-2024 13:29-0400 Diastolic blood pressure 111 mm[Hg] Ezequiel Vogel [facility] 05-10-2024 13:29-0400 Heart rate 68 /min Ezequiel Vogel [facility] 05-10-2024 13:29-0400 Mean blood pressure 120 mm[Hg] Ezequiel Vogel [facility] 05-10-2024 13:29-0400 Respiratory rate 16 /min Ezequiel Vogel [facility] 05-10-2024 13:29-0400 Systolic blood pressure 138 mm[Hg] Ezequiel Vogel [facility] 12-09-2023 14:00-0500 Hourly Rounding Ronobir MEAGAN [facility] 12-09-2023 14:00-0500 Mean blood pressure 118 mm[Hg] Ronobir MEAGAN [facility] 12-09-2023 14:00-0500 Promise to Return Ronobir MEAGAN [facility] 12-09-2023 13:00-0500 Hourly Rounding Ronobir MEAGAN [facility] 12-09-2023 13:00-0500 Promise to Return Ronobir MEAGAN [facility] 12-09-2023 12:19-0500 Heart rate 64 /min Ronobir MEAGAN [facility] 12-09-2023 12:19-0500 SaO2% (BldA) [Mass fraction] 96 % Ronobir MEAGAN [facility] 12-09-2023 12:18-0500 Diastolic blood pressure 63 mm[Hg] Ronobir MEAGAN [facility] 12-09-2023 12:18-0500 Mean blood pressure 74 mm[Hg] Ronobir MEAGAN [facility] 12-09-2023 12:18-0500 Systolic blood pressure 97 mm[Hg] Ronobir MEAGAN [facility] 12-09-2023 12:17-0500 Body temperature 97.88 [degF] Ronobir MEAGAN [facility] 12-09-2023 12:00-0500 Hourly Rounding Ronobir MEAGAN [facility] 12-09-2023 12:00-0500 Promise to Return Ronobir MEAGAN [facility] 12-09-2023 08:01-0500 Heart rate 65 /min Ronobir MEAGAN [facility] 12-09-2023 08:01-0500 SaO2% (BldA) [Mass fraction] 98 % Ronobir MEAGAN [facility] 12-09-2023 08:00-0500 Body temperature 97.52 [degF] Ronobir MEAGAN [facility] 12-09-2023 08:00-0500 Diastolic blood pressure 101 mm[Hg] Ronobir MEAGAN [facility] 12-09-2023 08:00-0500 Mean blood pressure 115 mm[Hg] Ronobir MEAGAN [facility] 12-09-2023 08:00-0500 Systolic blood pressure 142 mm[Hg] Ronobir MEAGAN [facility] 12-09-2023 07:37-0500 SaO2% (BldA) [Mass fraction] 98 % Ronobir MEAGAN [facility] 12-09-2023 04:52-0500 Body temperature 98.06 [degF] Ronobir MEAGAN [facility] 12-09-2023 04:52-0500 Diastolic blood pressure 94 mm[Hg] Ronobir MEAGAN [facility] 12-09-2023 04:52-0500 Heart rate 63 /min Ronobir MEAGAN [facility] 12-09-2023 04:52-0500 Systolic blood pressure 135 mm[Hg] Ronobir MEAGAN [facility] 12-09-2023 02:42-0500 Blood Pressure Location Ronobir MEAGAN [facility] 12-09-2023 02:42-0500 Heart rate 74 /min Ronobir MEAGAN [facility] 12-09-2023 02:42-0500 Respiratory rate 18 /min Ronobir MEAGAN [facility] 12-09-2023 01:30-0500 Mean blood pressure 111 mm[Hg] Ronobir MEAGAN [facility] 12-09-2023 01:30-0500 Respiratory rate 18 /min Ronobir MEAGAN [facility] 12-09-2023 01:26-0500 Mean blood pressure 114 mm[Hg] Ronobir MEAGAN [facility] 12-09-2023 01:26-0500 Respiratory rate 16 /min Ronobir MEAGAN [facility] 12-09-2023 00:56-0500 Heart rate 79 /min Ronobir MEAGAN [facility] 12-09-2023 00:56-0500 Respiratory rate 19 /min Ronobir MEAGAN [facility] 09-29-2023 15:07-0500 Diastolic blood pressure 82 mm[Hg] Denise Welch [facility] 09-29-2023 15:07-0500 Heart rate 84 /min Denise Welch [facility] 09-29-2023 15:07-0500 SaO2% (BldA) [Mass fraction] 94 % Denise Welch [facility] 09-29-2023 15:07-0500 Systolic blood pressure 112 mm[Hg] Denise Welch [facility] 08-31-2023 10:06-0500 Hourly Rounding Durga Paster [facility] 08-31-2023 10:06-0500 Promise to Return Durga Paster [facility] 08-31-2023 09:36-0500 Hourly Rounding Durga Paster [facility] 08-31-2023 09:36-0500 Promise to Return Durga Paster [facility] 08-31-2023 09:31-0500 SaO2% (BldA) [Mass fraction] 96 % Durga Paster [facility] 08-31-2023 08:13-0500 Hourly Rounding Durga Paster [facility] 08-31-2023 08:13-0500 Promise to Return Durga Paster [facility] 08-31-2023 07:34-0500 Heart rate 80 /min Durga Paster [facility] 08-31-2023 07:34-0500 SaO2% (BldA) [Mass fraction] 96 % Durga Paster [facility] 08-31-2023 07:33-0500 Diastolic blood pressure 96 mm[Hg] Durga Paster [facility] 08-31-2023 07:33-0500 Mean blood pressure 110 mm[Hg] Durga Paster [facility] 08-31-2023 07:33-0500 Systolic blood pressure 138 mm[Hg] Durga Paster [facility] 08-31-2023 07:00-0500 Body temperature 98.24 [degF] Durga Paster [facility] 08-30-2023 23:43-0500 Body temperature 98.6 [degF] Durga Paster [facility] 08-30-2023 23:43-0500 Diastolic blood pressure 84 mm[Hg] Durga Paster [facility] 08-30-2023 23:43-0500 Heart rate 80 /min Durga Paster [facility] 08-30-2023 23:43-0500 Respiratory rate 16 /min Durga Paster [facility] 08-30-2023 23:43-0500 SaO2% (BldA) [Mass fraction] 96 % Durga Paster [facility] 08-30-2023 23:43-0500 Systolic blood pressure 118 mm[Hg] Durga Paster [facility] 08-30-2023 21:00-0500 Diastolic blood pressure 93 mm[Hg] Durga Paster [facility] 08-30-2023 21:00-0500 Heart rate 88 /min Durga Paster [facility] 08-30-2023 21:00-0500 Systolic blood pressure 134 mm[Hg] Durga Paster [facility] 08-30-2023 19:15-0500 Mean blood pressure 95 mm[Hg] Durga Paster [facility] 08-30-2023 15:35-0500 Body temperature 97.88 [degF] Durga Paster [facility] 08-30-2023 15:35-0500 Mean blood pressure 108 mm[Hg] Durga Paster [facility] 08-30-2023 11:00-0500 Body temperature 97.34 [degF] Durga Paster [facility] 08-30-2023 00:58-0500 Body temperature 97.52 [degF] Durga Paster [facility] 08-29-2023 22:15-0500 Mean blood pressure 132 mm[Hg] Durga Paster [facility] 08-29-2023 22:15-0500 Respiratory rate 15 /min Durga Paster [facility] 08-29-2023 21:26-0500 Mean blood pressure 136 mm[Hg] Durga Paster [facility] 08-29-2023 21:26-0500 Respiratory rate 8 /min Durga Paster [facility] 08-29-2023 21:00-0500 Respiratory rate 10 /min Durga Paster [facility] 08-29-2023 20:35-0500 Mean blood pressure 135 mm[Hg] Durga Paster [facility] 08-29-2023 18:52-0500 Blood Pressure Location Durga Paster [facility] 08-29-2023 18:52-0500 Heart rate 92 /min Durga Paster [facility] 08-29-2023 18:52-0500 Respiratory rate 18 /min Durga Paster [facility] 08-29-2023 16:26-0500 Heart rate 80 /min Durga Paster [facility] 08-29-2023 16:26-0500 Respiratory rate 24 /min Durga Paster [facility] 10-19-2022 15:20-0500 Body height 175.26 cm Geovany Valle Other [facility] Other 10-19-2022 15:20-0500 Body mass index (BMI) [Ratio] 24.3 kg/m2 Geovnay Valle Other [facility] Other 10-19-2022 15:20-0500 Body weight 74.66 kg Geovany Valle Other [facility] Other 10-19-2022 15:20-0500 Diastolic blood pressure 112 mm[Hg] Geovany Valle Other [facility] Other 10-19-2022 15:20-0500 Systolic blood pressure 148 mm[Hg] Geovany Valle Other [facility] Other 08-17-2022 09:04-0500 Diastolic blood pressure 101 mm[Hg] DO Katie Salguero Work Phone: [facility] 08-17-2022 09:04-0500 Heart rate 80 /min DO Katie Salguero Work Phone: [facility] 08-17-2022 09:04-0500 Respiratory rate 16 /min DO Katie Salguero Work Phone: [facility] 08-17-2022 09:04-0500 SaO2% (BldA) [Mass fraction] 97 % DO Katie Salguero Work Phone: [facility] 08-17-2022 09:04-0500 Systolic blood pressure 136 mm[Hg] DO Katie Salguero Work Phone: [facility] 08-17-2022 08:21-0500 Inhaled oxygen flow rate 3 L/min DO Katie Salguero Work Phone: [facility] 08-17-2022 06:46-0500 Body height 175.26 cm DO Katie Salguero Work Phone: [facility] 08-17-2022 06:46-0500 Body weight 72.57 kg DO Katie Salguero Work Phone: [facility] 05-18-2022 09:58-0400 Diastolic blood pressure 106 mm[Hg] Carmen Severino [facility] 05-18-2022 09:58-0400 Heart rate 77 /min Carmen Severino [facility] 05-18-2022 09:58-0400 Mean blood pressure 126 mm[Hg] Carmen Severino [facility] 05-18-2022 09:58-0400 Respiratory rate 12 /min Carmen Severino [facility] 05-18-2022 09:58-0400 Systolic blood pressure 165 mm[Hg] Carmen Severino [facility] 05-10-2022 10:00-0400 Body height 175.26 cm Shaquille Remy Other [facility] Other 05-10-2022 10:00-0400 Body mass index (BMI) [Ratio] 24.66 kg/m2 Shaquille Remy Other [facility] Other 05-10-2022 10:00-0400 Body weight 75.75 kg Shaquille Remy Other [facility] Other 03-09-2022 14:31-0400 Diastolic blood pressure 86 mm[Hg] Carmen Severino [facility] 03-09-2022 14:31-0400 Heart rate 87 /min Carmen Severino [facility] 03-09-2022 14:31-0400 Mean blood pressure 98 mm[Hg] Carmen Severino [facility] 03-09-2022 14:31-0400 Respiratory rate 14 /min Carmen Severino [facility] 03-09-2022 14:31-0400 Systolic blood pressure 122 mm[Hg] Carmen Severino [facility] 02-11-2022 14:40-0400 Blood Pressure Location Denise Welch [facility] 02-11-2022 14:40-0400 Diastolic blood pressure 78 mm[Hg] Denise Welch [facility] 02-11-2022 14:40-0400 Heart rate 83 /min Denise Welch [facility] 02-11-2022 14:40-0400 Respiratory rate 18 /min Dneise Welch [facility] 02-11-2022 14:40-0400 SaO2% (BldA) [Mass fraction] 100 % Denise Welch [facility] 02-11-2022 14:40-0400 Systolic blood pressure 105 mm[Hg] Denise Welch [facility] 02-11-2022 10:45-0400 Body height 175.26 cm Shaquille Felter Other [facility] Other 02-11-2022 10:45-0400 Body mass index (BMI) [Ratio] 24.66 kg/m2 Shaquille Felter Other [facility] Other 02-11-2022 10:45-0400 Body weight 75.75 kg Shaquille Felter Other [facility] Other 01-12-2022 15:30-0400 Body height 175.26 cm Shaquille Felter Other [facility] Other 01-12-2022 15:30-0400 Body mass index (BMI) [Ratio] 25.1 kg/m2 Shaquille Felter Other [facility] Other 01-12-2022 15:30-0400 Body weight 77.11 kg Shaquille Felter Other [facility] Other 12-15-2021 14:30-0500 Body height 175.26 cm Shaquille Felter Other [facility] Other 12-15-2021 14:30-0500 Body mass index (BMI) [Ratio] 25.25 kg/m2 Shaquille Felter Other [facility] Other 12-15-2021 14:30-0500 Body weight 77.57 kg Shaquille Felter Other [facility] Other 11-17-2021 14:45-0500 Body height 175.26 cm Shaquille Duarteer Other [facility] Other 11-17-2021 14:45-0500 Body mass index (BMI) [Ratio] 25.25 kg/m2 Shaquille Felter Other [facility] Other 11-17-2021 14:45-0500 Body weight 77.57 kg Shaquille Felter Other [facility] Other 07-16-2021 09:15-0400 Body height 175.26 cm Shaquille Felter Other [facility] Other 07-16-2021 09:15-0400 Body mass index (BMI) [Ratio] 25.25 kg/m2 Shaquille Felter Other [facility] Other 07-16-2021 09:15-0400 Body weight 77.57 kg Shaquille Duarteer Other [facility] Other Encounters Encounter Date Encounter Type Care Provider Facility Start: 05-09-2025 End: 05-09-2025 ambulatory CANDACE LIMON Not Available Start: 03-18-2025 End: 03-18-2025 Transitional care manage srvc 7 day discharge Candace Limon [employer] Work Phone: [facility] Comment on above: Need for follow-up c are after discharge (Primary Dx); Moderate episode of recurrent major depressive disorder (CMS/HCC); Generalized anxiety disorder (CMS/HCC); Degeneration of intervertebral disc of lumbar region with discogenic back pain and lower extremity pain; Radiculopathy, lumbar region; Chronic fatigue; Prostate cancer screening; Primary hypertension (CMS/HCC); Mixed hyperlipidemia (CMS/HCC); Use of proton pump inhibitor therapy; Diuretics causing adverse effect in therapeutic use, subsequent encounter; Hypovitaminosis D Start: 03-18-2025 End: 03-18-2025 ambulatory CANDACE LIMON Not Available Start: 03-07-2025 End: 03-07-2025 ambulatory [facility] Start: 01-21-2025 End: 01-21-2025 Office outpatient visit 25 minutes Katie Salguero DO Work Phone: [facility] Comment on above: Moderate episode of recurrent major depressive disorder (CMS/HCC) (Primary Dx); Psychophysiological insomnia; Migraine without aura and without status migrainosus, not intractable (CMS/HCC); Spinal cord stimulator status; Primary hypertension (CMS/HCC); Failed back surgical syndrome; Generalized anxiety disorder (CMS/HCC); Coronary artery disease involving pilot station coronary artery of pilot station heart without angina pectoris (CMS/HCC) Start: 01-21-2025 End: 01-21-2025 ambulatory KATIE SALGUERO Not Available Start: 12-17-2024 End: 12-17-2024 ambulatory [facility] Start: 07-23-2024 End: 07-23-2024 Office outpatient visit 25 minutes Mable Strickland NP Work Phone: [facility] Comment on above: Failed back surgical syndrome (Primary Dx); Coronary artery disease involving pilot station coronary artery of pilot station heart without angina pectoris (CMS/HCC); Colon cancer screening; Chronic pain syndrome; Recurrent major depressive disorder, in partial remission (HCC) (CMS/HCC); Primary hypertension (CMS/HCC) Start: 07-23-2024 End: 07-23-2024 ambulatory MABLE STRICKLAND Not Available Start: 07-18-2024 End: 07-18-2024 ambulatory SHAQUILLE REMY Facility:[facility] Start: 07-11-2024 End: 07-18-2024 Patient encounter procedure Regina Amador [facility] Start: 06-28-2024 End: 06-28-2024 Telephone encounter Mable Strickland NP Work Phone: [facility] Start: 06-15-2024 End: 06-15-2024 ambulatory [facility] Start: 05-24-2024 End: 05-24-2024 ambulatory [facility] Start: 05-10-2024 End: 05-10-2024 ambulatory SHAQUILLE REMY Facility:[facility] Start: 05-10-2024 End: 05-10-2024 Pain Management Ezequiel Vogel [facility] Start: 05-04-2024 End: 05-04-2024 ambulatory [facility] Start: 04-25-2024 End: 04-25-2024 ambulatory [facility] Start: 04-18-2024 End: 04-18-2024 ambulatory [facility] Work Phone: Start: 04-18-2024 End: 04-18-2024 Patient encounter procedure [facility] Work Phone: Start: 04-06-2024 ambulatory [facility] Start: 03-19-2024 End: 03-19-2024 ambulatory [facility] Work Phone: Start: 03-19-2024 End: 03-19-2024 Patient encounter procedure [facility] Work Phone: Start: 02-16-2024 End: 02-16-2024 ambulatory [facility] Work Phone: Start: 02-16-2024 End: 02-16-2024 Patient encounter procedure [facility] Work Phone: Start: 01-27-2024 End: 01-27-2024 ambulatory MD Abhi Guerra Facility:[facility] Start: 01-27-2024 End: 01-27-2024 Patient encounter procedure Abhi Guerra [facility] Start: 01-19-2024 End: 01-19-2024 ambulatory [facility] Work Phone: Start: 01-19-2024 End: 01-19-2024 Patient encounter procedure [facility] Work Phone: Start: 12-21-2023 End: 12-21-2023 Patient encounter procedure [facility] Work Phone: Start: 12-09-2023 End: 12-09-2023 ambulatory DO Dora RHODES Facility:[facility] Start: 12-09-2023 End: 12-09-2023 Emergency department patient visit Dora RHODES [facility] Start: 11-21-2023 End: 11-21-2023 ambulatory Shaquille Remy Other [facility] Other Start: 11-21-2023 Office outpatient vi sit 25 minutes Shaquille Remy [facility] Start: 11-21-2023 Telephone encounter [facility] Start: 11-18-2023 End: 11-18-2023 ambulatory Denise Welch Facility:[facility] Start: 11-18-2023 End: 11-18-2023 Patient encounter procedure Denise Welch [facility] Start: 11-03-2023 End: 11-03-2023 ambulatory Trey Carranza Facility: [facility] Start: 10-26-2023 ambulatory Denise Welch Fac ility: [facility] Start: 10-20-2023 End: 10-20-2023 ambulatory Shaquille Remy Other [facility] Other Start: 10-20-2023 Office outpatient vi sit 25 minutes Shaquille Remy [facility] [place] Start: 10-20-2023 Telephone encounter [facility] Start: 09-29-2023 End: 09-29-2023 ambulatory Denise Welch Facility:[facility] Start: 09-29-2023 End: 09-29-2023 Patient encounter procedure Denise Welch [facility] Start: 09-22-2023 End: 09-22-2023 ambulatory Shaquille Remy Other [facility] Other Start: 09-22-2023 Office outpatient vi sit 25 minutes Shaquille Remy [facility] [place] Start: 09-22-2023 Telephone encounter Shaquille Remy [facility] Start: 08-29-2023 End: 08-31-2023 Evaluation and management of inpatient Durga Thompson Facility:[facility] Start: 08-29-2023 End: 08-31-2023 Evaluation and management of inpatient Durga Thompson [facility] Start: 08-25-2023 End: 08-25-2023 ambulatory Shaquille Remy Other [facility] Other Start: 08-25-2023 Office outpatient vi sit 25 minutes Shaquille Duarteer [facility] Start: 08-25-2023 Telephone encounter Shaquille Remy [facility] Start: 07-28-2023 End: 07-28-2023 ambulatory Shaquille Remy Other [facility] Other Start: 07-28-2023 Office outpatient vi sit 25 minutes Shaquille Duarteer [facility] [place] Start: 07-28-2023 Telephone encounter Shaquille Remy [facility] [place] Start: 06-30-2023 End: 06-30-2023 ambulatory Shaquille Remy Other [facility] Other Start: 06-30-2023 Office outpatient vi sit 25 minutes Shaquille Felter [facility] [place] Start: 06-30-2023 Telephone encounter Shaquille Remy [facility] Start: 05-31-2023 End: 05-31-2023 Patient encounter procedure DO Katie Salguero Work Phone: [facility] Start: 05-31-2023 End: 05-31-2023 ambulatory Katie Salguero [facility] Work Phone: Start: 05-31-2023 Office outpatient vi sit 25 minutes Shaquille Remy [facility] Start: 05-31-2023 Telephone encounter Shaquille Remy [facility] Start: 04-11-2023 End: 04-11-2023 ambulatory Shaquille Remy Other [facility] Other Start: 04-11-2023 Telephone encounter Shaquille Duarteer [facility] Start: 04-05-2023 End: 04-05-2023 ambulatory Shaquille Remy Other [facility] Other Start: 04-05-2023 Telephone encounter Shaquille Remy [facility] Start: 03-31-2023 End: 03-31-2023 ambulatory Shaquille Remy Other [facility] Other Start: 03-31-2023 Office outpatient vi sit 25 minutes Shaquille Remy [facility] Start: 03-31-2023 Telephone encounter Shaquille Remy [facility] Start: 02-03-2023 End: 02-03-2023 ambulatory Shaquille Remy Other [facility] Other Start: 02-03-2023 Telephone encounter Shaquille Duarteer [facility] Start: 01-25-2023 End: 01-25-2023 ambulatory Thien POWER Facility:[id number] Start: 01-19-2023 ambulatory Thien POWER Facility:[id number] Start: 01-19-2023 Encounter for preprocedural laboratory examination Thien POWER [facility] Start: 01-04-2023 End: 01-04-2023 ambulatory Shaquille Remy Other [facility] Other Start: 01-04-2023 Office outpatient vi sit 25 minutes Shaquille Remy [facility] Start: 01-04-2023 Telephone encounter Shaquille DA SILVA [facility] Start: 12-28-2022 End: 12-28-[address] DOCTOR HATCH Facility:[id number] Start: 12-14-2022 End: 12-14-2022 ambulatory Thien POWER Facility:[id number] Start: 12-08-2022 End: 12-08-2022 ambulatory Shaquille Remy Other [facility] Other Start: 12-08-2022 Telephone encounter Shaquille DA SILVA [facility] Start: 12-07-2022 End: 12-07-2022 ambulatory Shaquille Remy Other [facility] Other Start: 12-07-2022 Office outpatient vi sit 25 minutes Shaquille Remy [facility] Start: 12-07-2022 Telephone encounter Shaquille DA SILVA [facility] Start: 12-03-[address] Katie Salguero Facility:[id number] Start: 11-09-2022 End: 11-09-2022 ambulatory Shaquille Remy Other [facility] Other Start: 11-09-2022 Office outpatient vi sit 25 minutes Shaquille Remy [facility] Start: 11-09-2022 Telephone encounter Shaquille DA SILVA [facility] Start: 10-20-2022 End: 10-20-2022 ambulatory Geovany Valle Other [facility] Other Start: 10-20-2022 Telephone encounter Geovany Valle [facility] Start: 10-19-2022 End: 10-19-2022 ambulatory Geovany Valle Other [facility] Other Start: 10-19-2022 Office outpatient ne w 30 minutes Geovany Valle [facility] Start: 10-07-2022 End: 10-07-2022 ambulatory Shaquille Geraldshantal Other [facility] Other Start: 10-07-2022 Telephone encounter Shaquille DA SILVA [facility] Start: 09-09-2022 End: 09-09-2022 ambulatory Shaquille Remy Other [facility] Other Start: 09-09-2022 Office outpatient vi sit 25 minutes Shaquille Remy [facility] Start: 09-09-2022 Telephone encounter Shaquille DA SILVA [facility] Start: 08-20-2022 End: 08-20-2022 ambulatory Shaquille Remy Other [facility] Other Start: 08-20-2022 Follow-up encounter Shaquille DA SILVA [facility] Start: 08-17-2022 (Procedure) Short Shaquille Remy [facility] Start: 08-17-2022 End: 08-17-2022 Admission to same day surgery center DO Katie Wongvenkatesh Work Phone: [facility] Start: 08-17-2022 End: 08-17-2022 ambulatory DO Katie Salguero Work Phone: [facility] Work Phone: Start: 08-05-2022 End: 08-05-2022 ambulatory Shaquille Remy Other [facility] Other Start: 08-05-2022 Office outpatient vi sit 25 minutes Shaquille Remy [facility] Start: 08-05-2022 Telephone encounter Shaquille DA SILVA [facility] Start: 07-08-2022 End: 07-08-2022 ambulatory Shaquille Remy Other [facility] Other Start: 07-08-2022 Office outpatient vi sit 25 minutes Shaquille Remy [facility] Start: 06-10-2022 End: 06-10-2022 ambulatory Shaquille Felter Other [facility] Other Start: 06-10-2022 Office outpatient vi sit 25 minutes Shaquille Felter [facility] Start: 05-18-2022 End: 05-18-2022 Patient encounter procedure Carmen Severino [facility] Start: 05-18-2022 End: 05-18-2022 Patient encounter procedure Carmen Severino [facility] Start: 05-10-2022 End: 05-10-2022 ambulatory Shaquille Felter Other [facility] Other Start: 05-10-2022 Office outpatient vi sit 25 minutes Shaquille Felter [facility] Start: 04-01-2022 End: 04-01-2022 ambulatory Shaquille Felter Other [facility] Other Start: 04-01-2022 Office outpatient vi sit 25 minutes Shaquille Felter [facility] Start: 03-11-2022 End: 03-11-2022 ambulatory Shaquille Felter Other [facility] Other Start: 03-11-2022 Office outpatient vi sit 25 minutes Shaquille Felter [facility] Start: 03-09-2022 End: 03-09-2022 Pain Management Carmen Severino [facility] Start: 02-11-2022 End: 08-13-2022 Pre-admission assessment Denise Welch [facility] Start: 02-11-2022 End: 02-11-2022 Patient encounter procedure Denise Welch [facility] Start: 02-11-2022 End: 02-11-2022 ambulatory Shaquille Geralder Other [facility] Other Start: 02-11-2022 Office outpatient vi sit 25 minutes Shaquille Duarteer [facility] Start: 01-15-2022 End: 01-15-2022 ambulatory Shaquille Duarteer Other [facility] Other Start: 01-15-2022 Telephone encounter Shaquille Caraballo [facility] Start: 01-12-2022 End: 01-12-2022 ambulatory Shaquille Duarteer Other [facility] Other Start: 01-12-2022 Office outpatient vi sit 25 minutes Shaquille Duarteer [facility] Start: 12-15-2021 End: 12-15-2021 ambulatory Shaquille Remy Other [facility] Other Start: 12-15-2021 Office outpatient vi sit 25 minutes Shaquille Duarteer [facility] Start: 11-17-2021 End: 11-17-2021 ambulatory Shaquille Remy Other [facility] Other Start: 11-17-2021 Office outpatient vi sit 25 minutes Shaquille Remy [facility] Start: 10-15-2021 End: 10-15-2021 ambulatory Shaquille Remy Other [facility] Other Start: 10-15-2021 Office outpatient vi sit 25 minutes Shaquille Duarteer [facility] Start: 09-14-2021 End: 09-14-2021 ambulatory Shaquille Duarteer Other [facility] Other Start: 09-14-2021 Office outpatient vi sit 25 minutes Shaquille Duarteer [facility] Start: 09-07-2021 (Procedure) Short Shaquille Remy [facility] Start: 09-07-2021 End: 09-07-2021 ambulatory Shaquille Remy Other [facility] Other Start: 08-18-2021 End: 08-18-2021 ambulatory Shaquille Remy Other [facility] Other Start: 08-18-2021 Office outpatient vi sit 25 minutes Shaquille Geralder [facility] Start: 07-16-2021 Office outpatient vi sit 25 minutes Shaquille Felter [facility] Start: 02-22-2020 Patient encounter status Shaquille Remy Other [facility] Other Start: 11-07-2018 End: 11-07-2018 Patient encounter procedure LAUREL LITTLEJOHN) [facility] Start: 07-07-2018 End: 07-07-2018 Patient encounter procedure LAUREL RODNEY [facility] Start: 06-14-2018 End: 06-14-2018 Patient encounter procedure LAUREL LITTLEJOHN) [facility] Start: 06-08-2018 Encounter for other preprocedural examination [facility] [facility] Start: 06-08-2018 End: 06-09-2018 Patient encounter procedure LAUREL RODNEY [facility] Start: 05-17-2018 End: 05-22-2018 Patient encounter procedure LAUREL RODNEY [facility] Start: 04-26-2018 End: 04-27-2018 Patient encounter procedure NATALI SCHNEIDER (PA) [facility] Start: 03-14-2018 End: 03-14-2018 Patient encounter procedure KARISSA NOGUERA [facility] Start: 02-21-2018 End: 03-08-2018 Patient encounter procedure NATALI SCHNEIDER (PA) [facility] Start: 01-17-2018 Patient encounter procedure NATALI SCHNEIDER (PA) [facility] Start: 01-17-2018 End: 01-18-2018 Patient encounter procedure NATALI SCHNEIDER (PA) [facility] Procedures Date Procedure Procedure Detail Performing Clinician Start: 08-29-2023 Percutaneous coronar y intervention Durga Thompson Start: 05-31-2023 Radiography of thora cic spine DO Katie Salguero Work Phone: Start: 08-17-2022 Implantation of elec tronic stimulator of spine DO Katie Salguero Work Phone: Start: 06-08-2018 Antibody screen DEVANTEUTE HEATHER LOERA Comment on above: Performed By: #### T [id number] #### [place] [address] Start: 10-10-2017 Discectomy of spine Shivam Severino [...] neoplasm of colon Colorectal Cancer Screening [facility] Comment on above: Postponed from 01/23 (Patient Refused) Start: 06-10-2025 Influenza vaccination Influenz a Vaccine (Season Ended) [facility] Start: 04-29-2025 End: 04-29-2025 Patient encounter procedure 04/29/2025 10:00 AM EDT Office Visit [facility] [address] [place] [address] Candace Limon, JOSS [address] [place] [address] [facility] Start: 04-08-2025 Influenza vaccination Influenza Vacc ine (#1) [facility] Comment on above: Postponed from 06/10 (Patient Refused) Start: 01-21-2025 End: 01-21-2025 Patient encounter procedure 01/21/2025 3:00 PM EDT Office Visit [facility] [address] [place] [id number] Katie Salguero DO [address] [place] [address] [facility] Start: 01-21-2025 End: 07-23-2025 CBC W Auto Differential panel - Blood CBC and differential Lab Routine Primary hypertension (CMS/HCC) Expected: 01/21/2025 (Approximate), Expires: 07/23/2025 [facility] Work Phone: Comment on above: Expected: 01/21/2025 (Approximate), Expires: 07/23/2025 Start: 01-21-2025 End: 07-23-2025 Comprehensive metabolic 2000 panel - Serum or Plasma Comprehensive metabolic panel Lab Routine Primary hypertension (CMS/HCC) Expected: 01/21/2025 (Approximate), Expires: 07/23/2025 [facility] Comment on above: Expected: 01/21/2025 (Approximate), Expires: 07/23/2025 Start: 01-21-2025 End: 07-23-2025 Lipid 1996 panel - Serum or Plasma Lipid panel Lab Routine Primary hypertension (CMS/HCC) Expected: 01/21/2025 (Approximate), Expires: 07/23/2025 [facility] Comment on above: Expected: 01/21/2025 (Approximate), Expires: 07/23/2025 Start: 01-21-2025 End: 07-23-2025 Microalbumin/Creatinine panel in random Urine Microalbumin / creatinine urine ratio Lab Routine Primary hypertension (CMS/HCC) Expected: 01/21/2025 (Approximate), Expires: 07/23/2025 [facility] Comment on above: Expected: 01/21/2025 (Approximate), Expires: 07/23/2025 Start: 01-21-2025 End: 07-23-2025 Urinalysis complete panel - Urine Urinalysis with microscopic Lab Routine Primary hypertension (CMS/HCC) Expected: 01/21/2025, Expires: 07/23/2025 [facility] Comment on above: Expected: 01/21/2025 , Expires: 07/23/2025 Start: 09-19-2024 End: 09-19-2024 Patient encounter procedure 09/19/2024 10:30 AM EST Office Visit [facility] [address] [place] [address] Katie Salguero DO [address] [place] [address] [facility] Start: 06-10-2024 Influenza vaccination Influenza Vacc ine (#1) [facility] Start: 04-18-2024 Patient referral [facility] Work Phone: Start: 03-19-2024 Patient referral [facility] Work Phone: Start: 08-17-2022 [facility] Start: 1980 Screening for malign ant neoplasm of colon [facility] 25-hydroxyvitamin D3 [Mass/volume] in Serum or Plasma Vitamin D 25 hydroxy Total Lab Routine Chronic fatigue Hypovitaminosis D Ordered: 03/18/2025 [facility] Comment on above: Ordered: 03/18/2025 Apolipoprotein B [Mass/volume] in Serum or Plasma APOLIPOPROTEIN B Lab Routine Mixed hyperlipidemia (CMS/HCC) Ordered: 03/18/2025 [facility] Comment on above: Ordered: 03/18/2025 CBC panel - Blood by Automated count CBC Lab Routine Chronic fatigue Ordered: 03/18/2025 [facility] Work Phone: Comment on above: Ordered: 03/18/2025 Cobalamin (Vitamin B 12) [Mass/volume] in Serum or Plasma Vitamin B12 Lab Routine Chronic fatigue Use of proton pump inhibitor therapy Diuretics causing adverse effect in therapeutic use, subsequent encounter Ordered: 03/18/2025 [facility] Comment on above: Ordered: 03/18/2025 Comprehensive metabo lic 2000 panel - Serum or Plasma Comprehensive metabolic panel Lab Routine Primary hypertension (CMS/HCC) Ordered: 03/18/2025 [facility] Comment on above: Ordered: 03/18/2025 Ferritin [Mass/volum e] in Serum or Plasma Ferritin Lab Routine Chronic fatigue Ordered: 03/18/2025 [facility] Comment on above: Ordered: 03/18/2025 Iron + transferrin + TIBC Iron + transferrin + TIBC Lab Routine Chronic fatigue Ordered: 03/18/2025 [facility] Comment on above: Ordered: 03/18/2025 Lipid 1996 panel - S hannah or Plasma Lipid panel Lab Routine Mixed hyperlipidemia (CMS/HCC) Ordered: 03/18/2025 [facility] Comment on above: Ordered: 03/18/2025 Lipoprotein a [Mass/volume] in Serum or Plasma Lipoprotein A (LPA) Lab Routine Mixed hyperlipidemia (CMS/HCC) Ordered: 03/18/2025 [facility] Comment on above: Ordered: 03/18/2025 Magnesium [Mass/volu me] in Serum or Plasma Magnesium Lab Routine Chronic fatigue Use of proton pump inhibitor therapy Diuretics causing adverse effect in therapeutic use, subsequent encounter Ordered: 03/18/2025 [facility] Comment on above: Ordered: 03/18/2025 Microalbumin/Creatin ine panel in random Urine Microalbumin / creatinine urine ratio Lab Routine Primary hypertension (CMS/HCC) Ordered: 03/18/2025 [facility] Comment on above: Ordered: 03/18/2025 Patient Education Felter [facility] Work Phone: Patient referral [facility] Work Phone: PSA, total and free PSA, total a nd free Lab Routine Prostate cancer screening Ordered: 03/18/2025 [facility] Comment on above: Ordered: 03/18/2025 TSH+T3+FREE T4+T3 FREE TSH+T3+FR EE T4+T3 FREE Lab Routine Moderate episode of recurrent major depressive disorder (CMS/HCC) Generalized anxiety disorder (CMS/HCC) Chronic fatigue Ordered: 03/18/2025 [facility] Comment on above: Ordered: 03/18/2025 Urate [Mass/volume] in Serum or Plasma Uric acid Lab Routine Diuretics causing adverse effect in therapeutic use, subsequent encounter Ordered: 03/18/2025 [facility] Comment on above: Ordered: 03/18/2025 Immunizations Immunization Date Immunization Notes Care Provider Fa [facility] 07-28-2021 influenza, injectabl e, quadrivalent, preservative free Mable Strickland NP Work Phone: [facility] 07-28-2021 influenza virus vaccine, unspecified formulation Mable Osmel INTEGRATION LEAD Work Phone: [facility] 07-12-2018 Influenza, injectabl e, Madin [place] Canine Kidney, quadrivalent with preservative Mablerogerio Strickland INTEGRATION LEAD Work Phone: [facility] 09-28-2017 Depo-Medrol [address] Other [facility] Other 09-08-2017 influenza, injectabl e, quadrivalent, preservative free Mable Strickland INTEGRATION LEAD Work Phone: [facility] 05-12-2016 Kenalog -40 mg Shaquille Felter Other [facility] Other 08-05-2015 Depo-Medrol [address] Other [facility] Other 06-12-2015 Depo-Medrol [address] Other [facility] Other 04-22-2015 Depo-Medrol [address] Other [facility] Other 01-15-2015 Depo-Medrol [address] Other [facility] Other 07-24-2013 seasonal influenza, intradermal, preservative free Mablerogerio Strickland INTEGRATION LEAD Work Phone: [facility] Healthcare Payers Date Payer Category Payer Unknown [id number] 2023 Private Health Insurance [id number] 2023 Private Health Insurance [id number] 2022 Self-pay [id number] 1978 Unknown [id number] 1978 Unknown [id number] [id number]68 1978 Unknown [id number] 2.16.840.1.468081.3.579.2.1068 1978 Unknown [id number] 2.16.840.1.592508.3.579.2.1068 1978 Unknown [id number] 2.16.840.1.647178.3.579.2.1068 1978 Unknown [id number] 2.16.840.1.603074.3.579.2. 1978 Unknown [id number] 2.16.840.1.899460.3.579.2. 1978 Unknown [id number] 2.16.840.1.589159.3.579.2. 1978 Unknown [id number] 2.16.840.1.586540.3.579.2. 1978 Unknown [id number] 2.16.840.1.744500.3.579.2. 1978 Unknown [id number] 2.16.840.1.028003.3.579.2. 1978 Unknown [id number] 2.16.840.1.784993.3.579.2. 1978 Unknown [id number] 2.16.840.1.282105.3.579.2 1978 Unknown [id number] 2.16.840.1.743645.3.579.2.1258 1978 Unknown [id number] 2.16.840.1.238451.3.579.2.1258 1978 Unknown [id number] 2.16.840.1.859563.3.579.2.1259 1978 Unknown [id number] 2.16.840.1.982051.3.579.2.1259 1959 Unknown [id number] [id number] Private Health Insurance [facility] [id number] Unknown [place] BC/[place] [id number] Unknown [id number] Unknown [id number] Social History Date Type Detail Facility Tobacco smoking status Unknown if ever sm oked [facility] Other Start: 09-05-2023 End: 03-21-2024 Sex Assigned At Male [facility] Other Start: 03-09-2022 End: 05-10-2024 Light tobacco smoker (finding) [facility] Start: 03-30-2021 End: 02-16-2024 Tobacco smoking status NHIS Smoker (finding) [facility] Start: 1980 Sex Assigned At Male [facility] Start: 09-06-2023 Tobacco smoking stat us NHIS Smokes tobacco daily [facility] History of tobacco use Cigarette Smoker [facility] Start: 07-23-2024 End: 01-21-2025 Alcoholic beverage intake Ex-drinker (finding) [facility] Start: 09-05-2023 End: 03-21-2024 History of Social function [facility] Start: 03-15-2023 Tobacco Comment 5 or less cigarettes/day, thinking about quitting. [facility] Start: 03-15-2023 Alcohol Comment coke 2x a day [facility] Start: 1980 Sex assigned at Not on file [facility] Medical Equipment Procedure Code Equipment Code Equipment Origin al Text Equipment Identifier Dates Implantation, spinal cord stimulator, stage 1 Analgesic spinal cord electrical stimulation system [id number] FDA Start: 08-17-2022 PCI Unknown 08/11 Non [...] Assessment Result Facility 07-18-2024 Functional Status N/A [facility] 05-10-2024 Functional Status N/A [facility] 12-09-2023 Functional Status N/A [facility] 12-09-2023 Functional Status [facility] 09-29-2023 Functional Status N/A [facility] 08-29-2023 Functional Status No [facility] 08-29-2023 Functional Status [facility] 05-18-2022 Functional Status N/A [facility] Clinical Notes 11-25-2016 to 03-18-2025 Patient InstructionsKatie Salguero DO - 01/21/2025 3:30 PM EDTCnegra Strickland NP - 07/23/2024 3:00 PM EDT Note Date & Type Note Facility 03-18-2025 Martin Limon NP - 03/18/2025 10:00 AM EDT PATIENT EDUCATION: Hospital follow-up Reviewed hospital records including labs, imaging, procedure and consult notes. Overall patient is feeling better and is encouraged to keep follow-up appointments with specialists as scheduled. Patient voices no further concerns at this time. Depression Discussed side effects of medications. Notify physician's office if worsening depression, suicidal thoughts, and allergic reactions. Avoid use of other drugs, including alcohol. It may take 4-6 weeks before seeing improvement of symptoms. Do not stop medication abruptly to avoid serotonin withdrawal symptoms. There are a number of treatments for depression including psychotherapy, support groups, and psychiatric antidepressant medications. Try to get 8 hours of sleep per night. A lack of sleep increases risk for mental disturbances of all kinds. Daily exercise is recommended; exercise naturally increases the concentration of neurotransmitters such as serotonin. Build loving and accepting family/friend relationships. Use positive psychology. Meditation can be helpful because it calms and relaxes both the mind and body. There are many books, internet articles and free apps that you can download to guide you in meditation exercises. Anxiety 1) Cognitive Behavioral Therapy (CBT) for anxiety/panic disorder involves a combination of education, self-monitoring, relaxation training, challenging negative styles of thinking, situational exposure training, and systematic exposure to uncomfortable physical sensations. CBT can be used alone without pharmacotherapy, or may be used as an adjunct to any form of pharmacotherapy 2) Panic is an understandable reaction to perceived danger (the fight or flight response). Fear arises from the misinterpretation of normal body sensations. It is important to link symptoms and interpret anxiety with arrows in a vicious holy cross . It is important to appreciate that the first goal of treatment is not to remove all anxiety, only to manage it successfully. Attempts to cope by avoidance or safety seeking are understandable, but inadvertently lead to maintaining the problem. 3) Several mental health apps have been developed for panic and anxiety-related conditions. Internet-based self-help programs have been developed to improve access to evidence-based treatment principles for panic symptoms for patients unable to access treatment with a clinician. 4) Use medication as directed. Counseling recommended. Please report to the emergency room for any suicidal/homicidal ideation. Patient strongly encouraged to avoid alcohol and drug substances while on medications. This can cause adverse reactions and ineffectiveness of medications. [place] reviewed as necessary for use of controlled substances. Low back pain Encouraged to follow up with meds, heat/ice, and exercises as provided. Encouraged to avoid strenuous activities that may worsen symptoms but continue with being physically active. Avoid laying/sitting for long periods of time as this will worsen muscle aches/spasms and back pain. Encouraged to use stretching. Core strengthening and proper lifting mechanics ar important. Complete imaging if ordered. Notify office or go to ER if saddle paresthesia presents or if patient develop difficulties voiding, passing stool, or new onset incontinence. [place]AR[place] reviewed as necessary for use of controlled substances. HTN Possible complications of uncontrolled hypertension include stroke, congestive heart failure, heart attack, loss of vision, and kidney failure. Please complete labs as directed and call our office in one week if you have not received your lab results. Patient is encouraged to reduce salt in diet and to exercise at least 150 minutes per week. Avoid tobacco use and alcohol consumption. Please take all medications as prescribed. HLD Reviewed most recent lipid panel or ordered new labs if needed. It is important to maintain LDL at specified goal. The risks associated with hyperlipidemia including stroke and heart attack. Take medications as directed. Dietary modifications include decreasing red meat consumption, decreasing alcohol consumption, avoiding fried fatty foods and cakes, cookies, and sweets. You are encouraged to increase fiber in your diet and eat a diet rich in omega-3. You are encouraged to exercise at least 150 minutes weekly. Barriers to the plan of care have been addressed. Obtain labs as directed and call our office if you have not received the lab results within one week. Follow up as directed. Patient has been given a copy of the plan of care. Low vitamin D Take medication as directed. Encouraged to obtain 20 minutes of direct sunlight daily during peak hours of sunlight. Consume food sources high in Vitamin D. Repeat labs as instructed. documented in this encounter [facility] 03-07-2025 Note [facility] Cardiology Clinic Note Chief Complaint: HPI: Denise Lantigua is a 45 y.o. male Patient states he still feels wore out. Patient state he is having issues with his blood pressure being high. Per Dr Bustos: Denise Lantigua is a 44 y.o. male [...] and LAD henri (more content not included)... [facility] 01-21-2025 History of Present illness Narrative Images from the original note were not included. Subjective Denise Lantigua is a 45 y.o. male who presents for 6 Month OV, Fatigue, and Chest Pain (Was with rotating equipment engineer recently. They did increase BP medication. At home BP has been high. Last reading 170's/115. This morning 150's/105) History of Present Illness The patient is a 44-year-old male who presents for evaluation of hypertension, depression, and migraines. He reports experiencing generalized body pain following any physical activity, which he attributes to inadequate sleep. His sleep is frequently disrupted due to the onset of pain. He also experiences back pain at night, which radiates down his arm. He has a stimulator implanted in his back, which occasionally causes tenderness and pain. He has noticed some neck discomfort that affects his left arm. He takes Flexeril 10 mg, which provides some relief from the pain and aids in sleep. He is currently on Flexeril 10 mg. He has been under the care of a rotating equipment engineer in [place] for approximately one month due to elevated blood pressure. He has discontinued his antihypertensive medication. He experiences fatigue when his blood pressure is either too high or too low. He continues to smoke, albeit minimally. He has gained weight and reports feeling both stronger and weaker simultaneously. He is able to distinguish between his chest pain and other types of pain. He monitors his blood pressure regularly and takes medication to manage it. He is currently on carvedilol 12.5 mg twice daily, Imdur, and Ranexa, which have been effective in managing his chest pain and blood pressure. He does not take Elavil every night. He is currently on Elavil 25 mg at bedtime for migraines, which also aids in sleep. However, he reports feeling groggy the following day if he takes both Elavil and Flexeril. He is currently on Elavil 25 mg at bedtime for migraines. He acknowledges experiencing depression. SOCIAL HISTORY He admits to smoking barely. MEDICATIONS Current: Ranexa, carvedilol, Imdur, Elavil, Flexeril. Discontinued: Cozaar. Review of Systems Objective Blood pressure 130/90, pulse 83, height 5' 9 , weight 181 lb, SpO2 96%. Physical Exam Heart was examined. Results Imaging Echocardiogram showed that the heart function was a little bit on the weaker side. Testing Stress test was okay. Assessment & Plan 1. Hypertension. His blood pressure remains elevated despite current medication. The dosage of carvedilol will be increased to 25 mg twice daily to better manage his blood pressure. He is advised to monitor his blood pressure before taking his morning medications to ensure the effectiveness of the treatment. 2. Depression. He reports experiencing depression, which is common post-myocardial infarction. Mirtazapine will be initiated to help with sleep and depressive symptoms. He is advised to discontinue Elavil due to its potential to cause grogginess when taken with mirtazapine. The patient will provide feedback via email regarding his sleep quality next week. 3. Migraines. [facility]. He is instructed to take one dose as needed and to report any side effects or lack of efficacy. 4. Chronic pain. He experiences chronic pain, particularly in the back and arms, which affects his sleep. He will continue using Flexeril 10 mg as needed for muscle relaxation and pain relief. The patient has a stimulator implanted in his back. documented in this encounter [facility] 12-17-2024 Note Cardiology Clinic No te HPI: [...] artery disease, Hyperlipidemia, Hypertension, and Myocardial infarction ([facility]). Surgical History He has a [...] poorly controlled 4. Coronary artery disease involving pilot station coronary artery of pilot station (more content not included)... [facility] 07-23-2024 History of Present illness Narrative Images from the original note were not included. Denise Lantigua is a 44 y.o. male presents with chief complaint of Three-month office visit HPI: HPI Patient went to new pain mgt doctor at [facility]. He was prescribed Amitriptyline, which he was already on. They are trying to get him a new MRI, and maybe doing injection in his C-spine, only if his rotating equipment engineer will approve him to be off of [...] continues to follow with pain management in [place]. He experiences difficulty in distinguishing between chest [...] SURGICAL HISTORY 08/29/2023 cardiac cath LAD stent [facility] OTHER SURGICAL HISTORY 2023 heart cath RADIOFREQUENCY [...] Depression: Not at risk (11/07/2018) Received from [facility] PHQ-2 PHQ-2 score: 0 FAMILY HISTORY: Family [...] surgical syndrome 2. Coronary artery disease involving pilot station coronary artery of pilot station heart without angina pectoris (CMS/HCC) isosorbide mononitrate [...] He is also considering neck injections, pending rotating equipment engineer approval to stop blood thinners for a [...] treatment plan. documented in this encounter [facility] 07-18-2024 Evaluation + Plan note Extrac brandon [...] Scheduled Tests Laboratory* Basic Metabolic Panel 12/12/23 [facility] 10-09-2024 NoteConsultation Note Patient: DENISE LANTIGUA Age: [...] Daily, # 30 tab(s), Refills(s) 6, [id number], 175, cm, 09/29/23 15:16:00 EST, Height/Length Dosing, 73.7, kg, 09/29/23 15:16:00 EST, Weight Dosing Ranexa 500 mg Tab-ER: 500 mg = 1 tab(s), Oral, BID, # 60 tab(s), Refills(s) 3, [id number], 175, cm, 09/29/23 15:16:00 EST, Height/Length Dosing, 73.7, kg, 09/29/23 15:16:00 EST, Weight Dosing amitriptyline 25 mg Tab: 25 mg = 1 tab(s), Oral, Once a day (at bedtime), # 30 tab(s), Refills(s) 1, Pharmacy: [id number], 175.3, cm, 07/18/24 11:06:00 EDT, Height/Length Dosing, 75.9, kg, 07/18/24 11:06:00 EDT, Weight Dosing aspirin 81 mg Oral EC Tab: 81 mg = 1 tab(s), Oral, Daily, # 30 tab(s), Refills(s) 0, [id number], 175, cm, 09/29/23 15:16:00 EST, Height/Length Dosing, 73.7, kg, 09/29/23 15:16:00 EST, Weight Dosing atorvastatin 80 mg Tab: 80 mg = 1 tab(s), Oral, Daily, # 30 tab(s), Refills(s) 6, [id number], cm, 09/29/23 15:16:00 EST, Height/Length Dosing, 73.7, kg, 09/29/23 15:16:00 EST, Weight Dosing carvedilol 6.25 mg Tab: 6.25 mg = 1 tab(s), Oral, BID, # 60 tab(s), Refills(s) 6, [id number], 175, cm, 09/29/23 15:16:00 EST, Height/Length Dosing, 73.7, kg, 09/29/23 15:16:00 EST, Weight Dosing clopidogrel 75 mg Tab: 75 mg = 1 tab(s), Oral, Daily, # 30 tab(s), Refills(s) 3, Pharmacy: [id number], 175, cm, 12/09/23 1:00:00 EST, Height/Length Dosing, 75.7, kg, 12/09/23 1:00:00 EST, Weight Dosing cyclobenzaprine 10 mg Tab: See Instructions, 1 tab(s) Oral, # 30 tab(s), Refills(s) 0, [id number], 175, cm, 09/29/23 15:16:00 EST, Height/Length Dosing, 73.7, kg, 09/29/23 15:16:00 EST, Weight Dosing isosorbide mononitrate 30 mg ER Tab: 30 mg = 1 tab(s), Oral, qAM, # 30 tab(s), Refills(s) 3, [id number], 175, cm, 09/29/23 15:16:00 EST, Height/Length Dosing, 73.7, kg, 09/29/23 15:16:00 EST, Weight Dosing losartan 25 mg Tab: 25 mg = 1 tab(s), Oral, BID, # 60 tab(s), Refills(s) 0, [id number], 175, cm, 12/09/23 1:00:00 EST, Height/Length Dosing, 75.7, kg, 12/09/23 1:00:00 EST, Weight Dosing work excuse: work excuse, 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 in approximately 2 weeks., 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 CAD in pilot station artery / SNOMED CT 01434629 / Confirmed Hypertensive emergency / SNOMED CT 0083114323 / Confirmed Resolved: At risk for falls / SNOMED CT 757095864 Problem added when Risk for Falls Careplan was initiated. Resolved due to patient discharge. Resolved: Hypertension / SNOMED CT 45211006 Resolved: Stent / SNOMED CT 796518634 Resolved: Myocardial infarction / SNOMED CT 43514427 Resolved: Hyperlipidemia / SNOMED CT 27021303 Resolved: CHF - Congestive heart failure / SNOMED CT 180847325 Objective Vital Signs 07/18/2024 10:46 EDT Peripheral Pulse Rate 70 bpm Respiratory Rate 20 br/min Systolic Blood Pressure 149 mmHg HI Diastolic Blood Pressure 100 mmHg HI Mean (more content not included)...[facility] HospitalComment on above: Result Comment: Electronically Signed By: Regina Amador PA-C\.br\Date and Time Signed: 07/18/24 11:25 [id number] Telephone encounter Note* Telephone Encounter - Mable Strickland NP - 06/28/2024 3:33 PM EDT [id number] Miscellaneous Notes* Telephone Encounter - Mable Strickland NP - 06/28/2024 3:33 PM EDT Requesting refill of flexeril documented in this encounterSaint [facility] Hospital [id number] NoteCardiology Clinic Note Chief Complaint: Follow up, history of CAD s/p PCI HPI: Denise Lantigua is a 44 y.o. male who has a past medical history of Asthma, Coronary artery disease, Hyperlipidemia, Hypertension, and Myocardial infarction ([facility]/HCC). that iwas referred to Cardiology clinic to [...] Primary hypertension 4. Coronary artery disease involving pilot station coronary artery of pilot station heart, unspecified whether angina present 5. Tobacco abuse 6. Abnormal stress test Continue Aspirin, Plavix, Atorvastatin, and coreg for CAD Continue Coreg for HTN Continue Atorvastati (more content not included)...[facility]08-15-2024 NotePatient: Denise Lantigua Procedure Information Date/Time: 05/24/24 1030 Procedure: Coronary angiography (Left) Location: [facility] / [facility] (Cath) Providers: Isadora Bustos MD Clinical information reviewed: Allergies Meds Physical [...] products. Plan discussed with attending. [facility] Note Consultation Note Patient is presenting [...] call with any questions or concerns that arise.[facility] HospitalComment on above:Result Comment: Electronically Signed By: Ezequiel Vogel DO\.br\Date and Time Signed: 05/10/24 14:19 [id number] Evaluation + Plan noteExtracted from: Title:chronic pain Author:Ezequiel Vogel DO Date:05/10/24 [...] Date:07/11/2024 12:45:00 PM Scheduled Provider:Ezequiel Vogel DO Location:.[facility] Appointment Type:Pain Management - Follow Up (FT) Future Scheduled Tests Laboratory* Basic Metabolic Panel 12/12/23 [facility] 07-26-2024 NoteCardiology Clinic Note Chief Complaint: Follow [...] Primary hypertension 4. Coronary artery disease involving pilot station coronary artery of pilot station heart, unspecified whether angina present 5. Tobacco [...] arrythmia requiring defibrillation, need (more content not included)...[facility]06-28-2024 NoteCardiology Clinic Note Chief Complaint: New Patient, history of CAD s/p PCI HPI: Denise Lantigua is a 44 y.o. male who has a past medical history of Asthma, Coronary artery disease, Hyperlipidemia, Hypertension, and Myocardial infarction ([facility]/HCC). that is referred to Cardiology clinic to [...] y.o. male with Coronary artery disease involving pilot station coronary artery of pilot station heart, unspecified whether angina present Primary hypertension [...] understanding and is agre (more content not included)...[facility]03-04-2024 Evaluation + Plan note Future Scheduled Tests Laboratory* Basic Metabolic Panel 12/12/23 [facility]03-01-2024 Hospital Discharge instructions Patient Education 12/09/2023 13:46:35 Hypertension, Adult, Tdss-jh-Yael Hypertension, Adult Hypertension is another name for [...] doctor. Keep all follow-up visits. Medicines Take qgft-ttl-kbmojjq and prescription medicines only as told by [...] provider. Document Revised: 07/15/2022 Document Reviewed: 07/15/2022 [employer] Patient Education 2022 Mystery [employer]. Follow Up Care 12/09/2023 00:53:41 With:Rebekah RODNEY, Denise Valdez Address: [facility] [place] [address] [facility] (1) When:1 to 2 weeks Comments:Call for followup appointmentCall physician if symptoms worsen With:KATIE SALGUERO Address: [address], [place] [address]- [facility] (1) When:12/14/2023 10:30:00 [facility]03-01-2024 NoteAdmission and Discharge Information Admitting Physician - Dora RHODES DO Consulting Physician - [facility] Cardio, XXXX ZACH RODNEY, Frank Westbrook Admitting Diagnoses: Discharge Order Date Discharge Patient - Ordered -- 12/09/23 13:52:00 EST Discharge Diagnoses 1. Chest pain, 12/09/2023 2. CAD in pilot station artery, 12/09/2023 3. Hypertensive emergency, 12/09/2023 4. [...] AM EST [address], [address] [place] [address]- Business (1) Additional Instructions: Rebekah RODNEY, Denise Valdez Within 1 to 2 weeks [address] [place] [address]- Business (1) Additional Instructions: Call for followup appointment Call physician if symptoms worsen Patient Education Hypertension, Adult, Newn-nc-BpgpDrkyfhCleveland Clinic Lutheran HospitalComment on above: Result Comment: Electronically Signed By: Durga Thompson DO\.br\Date and Time Signed: 12/09/23 14:01 [id number] Evaluation + Plan noteExtracted from: Title:Discharge Note [...] oral tablet With When Contact Information KATIE SALGUERO 12/14/2023 10:30 AM EST [address], [address] [place] [address]- Business (1) Additional Instructions: Rebekah RODNEY, Denise Valdez Within 1 to 2 weeks [address] [place] [address]- Business (1) Additional Instructions: Call for followup appointment Call physician if symptoms worsen Hypertension, Adult, Vmrx-er-Hjhh Extracted from: Title:APSO Note Author:Bela DOMINGUEZ student, Parul pressley N Date:12/09/23 1. Chest pain (R07.9: Chest pain, [...] time given negative troponin 2. 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 Hypertensive emergency (I16.1: Hypertensive emergency) 2/2 to above Losartan coreg imdur Hydralazine prn 4. Smoker (F17.200: Nicotine dependence, unspecified, uncomplicated) Nicotine patch prn Educate on smoking cessation 5. Chronic back pain (M54.9: Dorsalgia, unspecified) Gabapentin Oxycodone 6. On deep vein thrombosis (DVT) prophylaxis (Z79.899: Other tank terminal gauger (current) drug therapy) Enoxaparin 7. elevated Cr [...] up with Dr. Putnam. 2. 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 Hypertensive emergency (I16.1: Hypertensive emergency) 4. Smoker (F17.200: Nicotine dependence, unspecified, uncomplicated) 5. Chronic back pain (M54.9: Dorsalgia, unspecified) 6. On deep vein thrombosis (DVT) prophylaxis (Z79.899: Other prison (current) drug therapy) Other chronic pain (G89.29: [...] doses have been reconciled. 2. 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 Hypertensive emergency (I16.1: Hypertensive emergency) See #1 4. Smoker (F17.200: Nicotine dependence, unspecified, uncomplicated) Nicotine patch as needed. Encourage cessation. 5. Chronic back pain (M54.9: Dorsalgia, unspecified) Will continue patient's gabapentin and oxycodone. 6. On deep vein thrombosis (DVT) prophylaxis (Z79.899: Other tank terminal gauger (current) drug therapy) SCD, enoxaparin Orders: acetaminophen, [...] Extracted from: Title:ED Note Author:Valentin Warner DO Adan Date :12/09/23 Chest pain (R07.9: Chest francesco [...] Scheduled Tests Laboratory* Basic Metabolic Panel 12/12/23 [facility]03-01-2024 NoteEchocardiology Procedure Exam Date/Time Accession # Ordering Echo Transthoracic 12/09/2023 09:13 EST [id number] ZACH RODNEY, Frank Westbrook Complete CPT code 31426 22069 Reason for Exam (Echo Transthoracic Complete) Chest pain Report [facility] [address] [place] [address] Adult Echocardiogram Report Name: DENISE LANTIGUA Study Date: 12/09/2023 08:32 AM BP: 142/101 mmHg Patient Location: [address]214 01 [facility] HR: 66 : 1980 Gender: Male Height: 68.5 in Age: 43 yrs Ethnicity: T Weight: 163 lb Reason For Study: Chest pain BSA: 1.9 m2 History: CAD, [place], PCI, HTN, Smoker Ordering Physician: Frank SERARNO Performed By: Sarah Engel [facility] Interpretation Summary Ejection Fraction = 60-65%. The [...] Frank SERRANO MD Transcribed by: BASSAM Technologist: [facility]03-01-2024 Note Chief Complaint Pt. reports high blood [...] 308 E9/L (12/09/23 01:05:00) MPV: 8.2 fL (12/09/23:05:00) Neutro Auto: 59.1 % (12/09/23:05:00) Lymph Auto: 28.6 % (12/09/23:05:00) Glascock Auto: 5.5 % (12/09/23:05:00) Eos Auto: 5.8 % (12/09/23:05:00) Basophil Auto: 1 % (12/09/23:05:00) Neutro Absolute: 6.3 E9/L (12/09/23:05:00) Lymph Absolute: 3.1 E9/L (12/09/23:05:00) Glascock Absolute: 0.6 E9/L (12/09/23:05:00) Eos Absolute: 0.6 [...] CO2: 26 mmol/L (12/09/23:05:00) AGAP: 12 mEq/L (12/09/23 01:05:00) Calcium Lvl: 9.4 mg/dL (12/09/23:05:00) Troponin: 13.3 pg/mL Low (12/09/23 01:05:00) Assessment/Plan 1. Chest pain (R07.9: Chest pain, unspecified) Concern for unstable angina. Will start patient on nitroglycerin 1 inch. Cardiology has been consulted. Patient is currently on a beta-alfonzo, statin, ARB, ticagrelor, aspirin. These will be continued once doses have been reconciled. 2. 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 Hypertensive emergency (I16.1: Hypertensive emergency) See #1 4. Smoker (F17.200: Nicotine dependence, unspecified, uncomplicated) Nicotine patch as needed. Encourage cessation. 5. Chronic back pain (M54.9: Dorsalgia, unspecified) Will continue patient's gabapentin and oxycodone. 6. On deep vein thrombosis (DVT) prophylaxis (Z79.899: Other prison (current) drug therapy) SCD, enoxaparin Orders: acetaminophen, [...] day(s), Stop date 01/07 (more content not included)...[facility] HospitalComment on above:Result Comment: Electronically Signed By: Dora RHODES DO.anne\Date and Time Signed: 12/09/23 02:46 [id number] Evaluation note* Encounter Date Diagnosis Assessment Notes [...] note writ ten by Lakshmi Danielson RN, Professional Nursing Assistant. Edited and approved by Dr. Shaquille Remy MD. [employer] Other 02-12-2024 Evaluation note* Encounter Date Diagnosis Assessment Notes Treatment Notes Treatment Clinical Notes Nov, Chronic, continuous use of opioids (ICD-10 - F11.90) [employer] Other 01-11-2024 Evaluation note* Encounter Date Diagnosis [...] note writ ten by Gabriel Grady LPN, Professional Nursing Assistant. Edited and approved by Dr. Shaquille Remy MD. [employer] Other 01-11-2024 Evaluation note* Encounter Date Diagnosis Assessment Notes Treatment Notes Treatment Clinical Notes Oct, Chronic, continuous use of opioids (ICD-10 - F11.90) [employer] Other 12-14-2023 Evaluation note* Encounter Date Diagnosis Assessment Notes Treatment Notes Treatment Clinical Notes Sep, Chronic, continuous use of opioids (ICD-10 - F11.90) [employer] Other 12-14-2023 Evaluation note* Encounter Date Diagnosis [...] note writ ten by Lakshmi Danielson RN, Professional Nursing Assistant. Edited and approved by Dr. Shaquille Remy MD. [employer] Other 11-22-2023 Evaluation + Plan noteExtracted from: [...] mg oral tablet With When Contact Information Denise Welch MD 09/29/2023 02:45 PM EST [address], [place] Additional Instructions: KATIE SALGUERO 09/06/2023 02:30 PM EST [address], [address] [place] [id number] [facility] (1) Additional Instructions: Cardiac Rehabilitation Acute Coronary [...] Extracted from: Title:APSO Note Author:Durga Thompson DO Irvin e:08/30/23 1. STEMI (ST elevation myoca rdial [...] on telemetry for another 24 hours. Ordered: [facility] Hospital Care/Day High 50 Minutes 73104 2. Tobacco abuse (Z72.0: Tobacco use) Educate [...] Ordered: Initial Hospital Care/Day High 75 Minutes 36318 2. Tobacco abuse (Z72.0: Tobacco use) Educate [...] & Vascular Author:Jose Juan lacey MD, Denise Parada. Date:08/29/23 1. STEMI (ST elevation myocardial infarction) [...] Extracted from: Title:Consult Note Author:Rebekah RODNEY, [place] Parada. Date:08/29/23 43-year-old male with histor y of [...] Scheduled Provider:Rebekah RODNEY, Denise Valdez Location[facility] [place] Appointment Type:Cardiology Inpatient Follow Up (FT) [facility]11-22-2023 Hospital Discharge instructions Patient Education 08/31/2023 08:16:59 [...] challenges. Follow these instructions at home: Take fiuf-wcf-tjyftjd and prescription medicines only as told by [...] provider. Document Revised: 01/26/2022 Document Reviewed: 01/26/2022 [employer] Patient Education 2022 Mystery Science. 08/31/2023 08:16:56 Acute Coronary Syndrome Acute Coronary [...] Follow these instructions at home: Medicines Take hovh-xpj-wtcbwgc and prescription medicines only as told by [...] provider. Document Revised: 03/18/2022 Document Reviewed: 03/18/2022 [employer] Patient Education 2022 Mystery Science. Follow Up Care 08/29/2023 16:25:37 With:Rebekah RODNEY, Denise Valdez Address: [address] [place], [place] When:09/29/2023 14:45:00 With:KATIE SALGUERO Address: [address], [address] [address] [facility] (1) When:09/06/2023 14:30:00 [facility]11-22-2023 NoteAdmission and Discharge Information Admit Date/Time:08/29/2023 18:36 [...] was called and patient was taken to [employer]. In [employer] patient found to have occluded LAD and [...] noted below. Patient to follow-up with Dr. Gannon 2 to 4 weeks. Patient to have repeat echo in 4 to 6 weeks. Patient to undergo cardiac rehab. 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 Patient stable at discharge. Medication changes Discontinued [...] and follow-up as well as communication with quantitative consultant, nursing, case management. Physical Exam Vitals [...] 60.3 % Lymph Auto - 30.8 % Glascock Auto - 6.9 % Eos Auto - 0.9 % Basophil Auto - 1.1 % Neutro Absolute - 6.2 E9/L Lymph Absolute - 3.2 E9/L Glascock Absolute - 0.7 E9/L Eos Absolute - [...] eGFR (08/31/2023) eGFR - (more content not included)...[facility] HospitalComment on above:Result Comment: Electronically Signed By: Durga Thompson DO\.br\Date and Time Signed: 08/31/23 09:58 [id number] NoteEchocardiology Procedure Exam Date/Time Accession # Ordering Echo Transthoracic 08/30/2023 10:50 EST [id number] Denise Welch MD CPT code 14584 18545 Reason for Exam (Echo Transthoracic Complete) CAD Coronary artery disease Report [address] [address] Adult Echocardiogram Report Name: DENISE LANTIGUA Study Date: 08/30/2023 10:18 AM BP: 141/ mmHg Patient Location: [address] [place] [address] HR: 75 : 1980 Gender: Male Height: 69 in Age: 43 yrs Ethnicity: T Weight: 170 lb Reason For Study: CAD Coronary artery disease BSA: 1.9 m2 History: HTN,Smoker-Yes Ordering Physician: Rebekah^Sunny Performed By: Ebony Cuello RDCS Interpretation Summary [...] Frank SERRANO MD Transcribed by: BASSAM Technologist: [facility]11-20-2023 Note Procedure [facility] poss PCI via right radial for [...] Start date08/29/23 18:00:00 [address] [facility]Comment [facility]:Result Comment: Electronically Signed By: Rebekah RODNEY, Denise Valdez\.br\Date and Time Signed: 08/29/23 20:54 [id number] NoteChief Complaint STEMI Reason for Consultation STEMI [...] [facility]. [facility] [employer] [facility] was activated for STEMI alert from the [...] pack)/day in last 30 days Tobacco Use:., 03/09/2022[facility] HospitalComment on above:Result Comment: Electronically Signed By: Rebekah RODNEY, Denise Valdez\.br\Date and Time Signed: 08/29/23 20:48 [id number] NoteChief Complaint STEMI History of Present Illness [...] was called and patient was taken to [facility] [employer] [facility]. In [employer] [facility] patient found to have occluded LAD and [...] denies alcohol use. 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 Review of [...] 16:21:00) Lymph Auto: 32.5 % (08/29/23 16:21:00) Glascock Auto: 4.6 % (08/29/23 16:21:00) Eos Auto: 0.9 % (08/29/23 16:21:00) Basophil Auto: 0.9 % (08/29/23 16:21:00) Neutro Absolute: 7.6 E9/L High (08/29/23 16:21:00) Lymph Absolute: 4.1 E9/L High (08/29/23 16:21:00) Glascock Absolute: 0.6 E9/L (08/29/23 16:21:00) Eos Absolute: 0.1 E9/L (08/29/23 16::00) Basophil Absolute: 0.1 E9/L (08/29/23::00) PT: 11.5 second(s) (08/29/23::00) INR: 1 (08/29/23::00) PTT: 31.6 second(s) (08/29/23::00) Glucose Lvl: 145 mg/dL (08/29/23 16::00) BUN: 7 mg/dL (08/29/23 16::00) Creatinine: 1.1 mg/dL (08/29/23::00) eGFR: 84 mL/min/1.73 m2 (08/29/23:21:00) BUN/Creat Ratio: 6 Low (08/29/23::00) Sodium Lvl: 137 mmol/L (08/29/23 16:21:00) Potassium Lvl: 3.5 mmol/L (08/29/23 16:21:00) Chloride: 101 mmol/L (08/29/23 16:21:00) CO2: 23 mmol/L (08/29/23 16:21:00) AGAP: 17 [...] Ordered: Initial Hospital Care/Day High 75 Minutes 82075 2. Tobacco abuse (Z72.0: Tobacco use) Educate [...] back pain (M54.9: Do (more content not included)...[facility] HospitalComment on above:Result Comment: Electronically Signed By: Durga Thompson DO\.br\Date and Time Signed: 08/29/23 18:51 [id number] Evaluation note* Encounter Date Diagnosis Assessment Notes [...] note writ ten by Néstor Coyne MA, Professional Nursing Assistant. Edited and approved by Dr. Shaquille Remy MD. [employer] Other 11-16-2023 Evaluation note* Encounter Date Diagnosis Assessment Notes Treatment Notes Treatment Clinical Notes Aug, Chronic, continuous use of opioids (ICD-10 - F11.90) [employer] Other 10-19-2023 Evaluation note* Encounter Date Diagnosis [...] note writ ten by Néstor Coyne MA, Professional Nursing Assistant. Edited and approved by Dr. Shaquille Remy MD. [employer] Other 10-19-2023 Evaluation note* Encounter Date Diagnosis Assessment Notes Treatment Notes Treatment Clinical Notes Jul, Chronic, continuous use of opioids (ICD-10 - F11.90) [employer] Other 09-21-2023 Evaluation note* Encounter Date Diagnosis [...] note writ ten by Néstor Coyne MA, Professional Nursing Assistant. Edited and approved by Dr. Shaquille Remy MD. [employer] Other 09-21-2023 Evaluation note* Encounter Date Diagnosis Assessment Notes Treatment Notes Treatment Clinical Notes Jun, Chronic, continuous use of opioids (ICD-10 - F11.90) [employer] Other 08-22-2023 Evaluation note* Encounter Date Diagnosis Assessment Notes Treatment Notes Treatment Clinical Notes May, Chronic, continuous use of opioids (ICD-10 - F11.90) [employer] Other 08-22-2023 Evaluation note* Encounter Date Diagnosis [...] note writ ten by Néstor Coyne MA, Professional Nursing Assistant. Edited and approved by Dr. Shaquille Remy MD. [employer] Other 07-03-2023 Evaluation note* Encounter Date Diagnosis Assessment Notes Treatment Notes Treatment Clinical Notes Apr, Chronic, continuous use of opioids (ICD-10 - F11.90) [employer] Other 06-27-2023 Evaluation note* Encounter Date Diagnosis Assessment Notes Treatment Notes Treatment Clinical Notes Mar, Chronic, continuous use of opioids (ICD-10 - F11.90) [employer] Other 06-22-2023 Evaluation note* Encounter Date Diagnosis [...] note writ ten by Gabriel Grady LPN, Professional Nursing Assistant. Edited and approved by Dr. Shaquille Remy MD. [employer] Other 06-22-2023 Evaluation note* Encounter Date Diagnosis Assessment Notes Treatment Notes Treatment Clinical Notes Mar, Chronic, continuous use of opioids (ICD-10 - F11.90) [employer] Other 04-27-2023 Evaluation note* Encounter Date Diagnosis Assessment Notes Treatment Notes Treatment Clinical Notes Jan, Chronic, continuous use of opioids (ICD-10 - F11.90) [employer] Other 04-18-2023 NotePROCEDURE DETAILS Preoperative Diagnosis: Postlaminectomy syndrome, lumbar region, M96.1 Postoperative Diagnosis: Postlaminectomy syndrome, lumbar region, M96.1 Surgeon: Damian Power Resident/Fellow/Other School Program Director: Josh Fried Procedure: 1. REVISION OF SPINAL CORD STIMULATOR ELECTRODE Anesthesia: No anesthesiologist associated with this case Estimated Blood Loss: Less than 5 mL Findings: Electrode was in the soft tissue and the suture anchors had pulled through the bone Specimens(s) Collected: yes, Wound culture Implants: Reimplanted spinal electrode, [employer] Operative Report: The patient is approximately 6 [...] Completion Last Updated: 25-Jan-2023 15:54 by Damian Power)[facility] 01-25-2023 NoteHistory & Physical Reviewed: I have [...] Completion Last Updated: 25-Jan-2023 13:21 by Damian Power)[facility] 01-04-2023 Evaluation note* Encounter Date Diagnosis Assessment [...] note writ ten by Gabriel Grady LPN, Professional Nursing Assistant. Edited and approved by Dr. Shaquille Remy MD. [employer] Other 03-28-2023 Evaluation note* Encounter Date Diagnosis Assessment Notes Treatment Notes Treatment Clinical Notes Dec, Chronic, continuous use of opioids (ICD-10 - F11.90) Dec, Other spondylosis with radiculopathy, lumbar region (ICD-10 - M47.26) [employer] Other 03-07-2023 NotePROCEDURE DETAILS Preoperative Diagnosis: Postlaminectomy syndrome of lumbar region, M96.1 Postoperative Diagnosis: Postlaminectomy syndrome of lumbar region, M96.1 Surgeon: Damian Power Resident/Fellow/Other School Program Director: Luzma Spence Procedure: 1. THORACIC LAMINECTOMY T8 2. INSERTION OF SPINAL CORD STIMULATOR- T8 Anesthesia: Shaquille Giordano Estimated Blood Loss: Less than 5 mL Findings: None IV Fluids: 2 L Implants: [employer] spinal cord stimulator and pulse generator [...] process was subperiosteally exposed and then a [place] was placed on it. Fluorographic imaging was [...] Completion Last Updated: 14-Dec-2022 10:12 by Damian Power)[facility] 12-14-2022 NoteHistory & Physical Reviewed: I have [...] Completion Last Updated: 14-Dec-2022 10:00 by Damian Power)[facility] 12-08-2022 Evaluation note* Encounter Date Diagnosis Assessment Notes Treatment Notes Treatment Clinical Notes Dec, Chronic, continuous use of opioids (ICD-10 - F11.90) [facility] Other 02-28-2023 Evaluation note* Encounter Date Diagnosis [...] with patient in regard to patients condition. 28 Feb, 2023 Spinal stenosis (ICD-10 - M48.00) Nov, Chronic, [...] note writ ten by Néstor Coyne MA, Professional Nursing Assistant. Edited and approved by Dr. Shaquille Remy MD. [facility] Other 02-28-2023 Evaluation note* Encounter Date Diagnosis Assessment Notes Treatment Notes Treatment Clinical Notes Nov, Chronic, continuous use of opioids (ICD-10 - F11.90) [facility] Other 01-31-2023 Evaluation note* Encounter Date Diagnosis [...] note writ ten by Gabriel Grady LPN, Professional Nursing Assistant. Edited and approved by Dr. Shaquille Remy MD. [facility] Other 01-31-2023 Evaluation note* Encounter Date Diagnosis Assessment Notes Treatment Notes Treatment Clinical Notes Oct, Chronic, continuous use of opioids (ICD-10 - F11.90) [facility] Other 01-10-2023 Evaluation note* Encounter Date Diagnosis Assessment Notes Treatment Notes Treatment Clinical Notes Oct, Lumbar radiculopathy (ICD-10 - M54.16) This is a gentleman who was operated on by me in 2016. Apparently he was not happy with the result went to [place] and had an operation done at the clinic which also did not go well and then had a fusion in [place] that relieved none of the symptoms. He [...] of lumbar spinal fusion (ICD-10 - Z98.1) [facility] Other 12-29-2022 Evaluation note* Encounter Date Diagnosis Assessment Notes Treatment Notes Treatment Clinical Notes Sep, Chronic, continuous use of opioids (ICD-10 - F11.90) Sep, Other spondylosis with radiculopathy, lumbar region (ICD-10 - M47.26) [facility] Other 12-01-2022 Evaluation note* Encounter Date Diagnosis Assessment Notes Treatment Notes Treatment Clinical Notes Sep, Chronic, continuous use of opioids (ICD-10 - F11.90) [facility] Other 12-01-2022 Evaluation note* Encounter Date Diagnosis [...] note writ ten by Gabriel Grady LPN, Professional Nursing Assistant. Edited and approved by Dr. Shaquille Remy MD. [facility] Other 11-11-2022 Evaluation note* Encounter Date Diagnosis [...] recommend we proceed with SCS implant with [employer] as previously discussed. I will refer the [...] note writ ten by Néstor Coyne MA, Professional Nursing Assistant. Edited and approved by Dr. Shaquille Remy MD. [facility] [employer] Other 11-08-2022 [facility]* Encounter Date Diagnosis Assessment [...] note writ ten by Néstor Coyne MA, Professional Nursing Assistant. Edited and approved by Dr. Shaquille Remy MD. [facility] Other 10-27-2022 Evaluation note* Encounter Date Diagnosis Assessment Notes Treatment Notes Treatment Clinical Notes Jul, Chronic, continuous use of opioids (ICD-10 - F11.90) [facility] Other 09-29-2022 Evaluation note* Encounter Date Diagnosis [...] note writ ten by Gabriel Grady LPN, Professional Nursing Assistant. Edited and approved by Dr. Shaquille Remy MD. [facility] Other 09-01-2022 Evaluation note* Encounter Date Diagnosis [...] note writ ten by Gabriel Grady LPN, Professional Nursing Assistant. Edited and approved by Dr. Shaquille Remy MD. [employer] [facility] [employer] Other 08-01-2022 Evaluation note* Encounter Date Diagnosis [...] medications were refilled today. Saliva performed through [facility] today, will await confirmatory results. May, Other chronic pain (ICD-10 - G89.29) May, Other Above note writ ten by Gabriel Grady LPN, Professional Nursing Assistant. Edited and approved by Dr. Shaquille Remy MD. [facility] [employer] Other 06-23-2022 Evaluation note* Encounter Date Diagnosis [...] note writ ten by Néstor Coyne MA, Professional Nursing Assistant. Edited and approved by Dr. Shaquille Remy MD. [facility] Other 06-02-2022 Evaluation note* Encounter Date Diagnosis [...] note writ ten by Gabriel Grady LPN, Professional Nursing Assistant. Edited and approved by Dr. Shaquille Remy MD. [facility] Other 05-05-2022 Evaluation note* Encounter Date Diagnosis [...] note writ ten by Gabriel Grady LPN, Professional Nursing Assistant. Edited and approved by Dr. Shaquille Remy MD. [facility] Other 04-08-2022 Evaluation note* Encounter Date Diagnosis Assessment Notes Treatment Notes Treatment Clinical Notes Jan, Other low back pain (ICD-10 - M54.59) [facility] Other 04-05-2022 Evaluation note* Encounter Date Diagnosis [...] note writ ten by Néstor Coyne CMA, Professional Nursing Assistant. Edited and approved by Dr. Shaquille Remy MD. [facility] Other 03-08-2022 Evaluation note* Encounter Date Diagnosis [...] Percocet was refilled today. Saliva performed through [facility] today, will await confirmatory results. Dec, Other chronic pain (ICD-10 - G89.29) Above note written by Gabriel Grady LPN, Professional Nursing Assistant. Edited and approved by Dr. Shaquille Remy MD. [facility] Other 02-08-2022 Evaluation note* Encounter Date Diagnosis [...] Above note written by Néstor Coyne CMA, Professional Nursing Assistant. Edited and approved by Dr. Shaquille Remy MD. [facility] [employer] Other 01-06-2022 Evaluation note* Encounter Date Diagnosis [...] Above note written by Néstor Coyne CMA, Professional Nursing Assistant. Edited and approved by Dr. Shaquille Remy MD. [facility] Other 12-06-2021 Evaluation note* Encounter Date Diagnosis [...] Above note written by Gabriel Grady LPN, Professional Nursing Assistant. Edited and approved by Dr. Shaquille Remy MD. [facility] Other 10-07-2021 Evaluation note* Encounter Date Diagnosis [...] note writ ten by Lakshmi Danielson CMA, Professional Nursing Assistant. Edited and approved by Dr. Shaquille Remy MD. [facility] [employer] Other 09-27-2021 Note [id number]09-21-2021 [id number] 06-29-2021 [facility] SURGERY Clinical Discharge Summary PERSON INFORMATION Name DENISE LANTIGUA Age 41 Years 1980 Sex MALE Language [place] PCP KATIE SALGUERO Marital Status Single [facility] Service Ambulatory Surgery Acct# Arrival 06/29/2021 10:36:00 Visit Reason SURGERY - CYSTOSCOPY BILATERAL URETEROSCOPY HOLMIUM LASER LITHO, BILATERAL STENT PLACEMENT Acuity LOS 018 09:03 Address: [address] [place] [id number] Comment: PROVIDER INFORMATION VITALS INFORMATION Vital Sign Triage Latest Temp Oral Temp Temporal Temp Intravascular Temp Axillary Temp Rectal 02 Sat 98 % 96 % Respiratory Rate Peripheral Pulse Rate Apical Heart Rate Blood Pressure / 97 mmHg / 102 mmHg Comment: MEDICAL INFORMATION Allergy Info: No known allergies Prescriptions Given: acetaminophen-hydrocodone ([place] 5 mg-325 mg oral tablet) 1 tab(s) [...] Medication List: New Medications Printed Prescriptions acetaminophen-hydrocodone ([place] 5 mg-325 mg oral tablet) 1 tab(s) [...] 8 hours. New Medications Printed Prescriptions acetaminophen-hydrocodone ([place] 5 mg-325 mg oral tablet) 1 tab(s) [...] 8 hours. New Medications Printed Prescriptions acetaminophen-hydrocodone ([place] 5 mg-325 mg oral tablet) 1 tab(s) [...] hours as needed fo (more content not included)...[id number] History general Narrative - Reported* Type Description [...] Decompression surger y of lumbar spine @ [facility] 06/14/18 Hospitalization History FR- Pneumonia 11/2015 [facility] [employer] Other 02-16-2017 History general Narrative - Reported* [...] Decompression surger y of lumbar spine @ [facility] 06/14/18 Hospitalization History FR- Pneumonia 11/2015 [facility] Other Evaluation + Plan note Future Appointments Appointment Date:08/12/2022 03:30:00 PM Scheduled Provider:[facility] Future Appointments Appointment Date:11/03/2023 10:00:00 AM Scheduled Provider:Trey Carranza MD Location:[facility] Appointment Type: Open Appointment Date:11/11/2023 11:45:00 AM Scheduled Provider:Denise Welch MD [facility] Appoint[facility] Type:Cardiology [facility]FT[facility] [employer] Other Evaluation noteNo InformationNort [employer] Other Evaluation noteNo assessment information available [facility] Work Phone: Evaluation note* Diagnosis Onset Date Resolution Status Chronic pain acute Chronic, continuous use of opioids acute Failed back surgical syndrome acute Lumbar radiculopathy acute Chronic pain acute Chronic, continuous use of opioids acute Failed back surgical syndrome acute Lumbar radiculopathy acute [facility] Work Phone: Evaluation note* Diagnosis Onset Date Resolution Status Chronic pain acute Chronic, continuous use of opioids acute Failed back surgical syndrome acute Lumbar radiculopathy acute Chronic pain acute Chronic, continuous use of opioids acute Failed back surgical syndrome acute Lumbar radiculopathy acute Chronic pain acute Chronic, continuous use of opioids acute Failed back surgical syndrome acute Lumbar radiculopathy acute [facility] Work Phone: Evaluation note* Diagnosis Onset [...] syndrome acute Lumbosacral spondylosis without myelopathy acute [facility] Work Phone: Evaluation note* Diagnosis Onset [...] syndrome acute Lumbosacral spondylosis without myelopathy acute [facility] Work Phone: Evaluation note* Diagnosis Failed back surgical syndrome- Primary Coronary artery disease involving pilot station coronary artery of pilot station heart without angina pectoris (CMS/HCC) Colon cancer screening Special screening for malignant neoplasms, colon Chronic pain syndrome Recurrent major depressive disorder, in partial remission (HCC) (CMS/HCC) Primary hypertension (CMS/HCC) Unspecified essential hypertension [facility] Diagnosis Chronic pain syndrome- Primary [facility] Diagnosis Need for follow-up care after discharge- Primary Moderate episode of recurrent major depressive disorder (CMS/HCC) Generalized anxiety disorder (CMS/HCC) Generalized anxiety disorder Degeneration of intervertebral disc of lumbar region with discogenic back pain and lower extremity pain Radiculopathy, lumbar region Thoracic or lumbosacral neuritis or radiculitis, unspecified Chronic fatigue Other malaise and fatigue Prostate cancer screening Special screening for malignant neoplasm of prostate Primary hypertension (CMS/HCC) Unspecified essential hypertension Mixed hyperlipidemia (CMS/HCC) Mixed hyperlipidemia Use of proton pump inhibitor therapy Diuretics causing adverse effect in therapeutic use, subsequent encounter Hypovitaminosis D Unspecified vitamin D deficiency [facility] Diagnosis Moderate episode of recurrent major depressive disorder (CMS/HCC)- Primary Psychophysiological insomnia Persistent disorder of initiating or maintaining sleep Migraine without aura and without status migrainosus, not intractable (CMS/HCC) Spinal cord stimulator status Primary hypertension (CMS/HCC) Unspecified essential hypertension Failed back surgical syndrome Generalized anxiety disorder (CMS/HCC) Generalized anxiety disorder Coronary artery disease involving pilot station coronary artery of pilot station heart without angina pectoris (CMS/HCC) documented in this encounter [facility]ative - [facility] Other Hospital course Narrative No data available for this section [facility] No data available for this section [facility] instructionsAmb[facility] Orders* Referral to Pain Management Time Frame: 03/19/24, Location: None [facility] Work Phone: Hospital Discharge instructionsAmbulatory Orders* Referral to Pain Management Time Frame: 04/18/24, Location: None [facility] Work Phone: Progress note No data available for this section [facility] Summary Purpose Family History No Family History [...] 2024 11:24am Procedure Findings Note HNO ID: [id number] Author: Rashmi Littlejohn) Luz Maria Service: Neurosurgery Author Type: Physician Type: Brief Op Note Filed: 06/14/2018 2:55 PM Note Text: BRIEF OPERATIVE / PROCEDURE NOTE LOG ID: [id number] SURGERY/PROCEDURE DATE: 06/14/2018 INCISION/PROCEDURE START TIME: 1:16 PM INCISION CLOSE/PROCEDURE END TIME: 02.40 PM SURGEON(S)/PROCEDURALIST(S) AND FACE PAINTER(S): Surgeon(s) and Role: * Laurel Littlejohn) [facility] Program Director: Srinivas Franks SURGERY/PROCEDURE(S): Revision left side L5-S1 [...] th radiculopathy, lumbar region (M47.26) Referral Organization [facility] Referring Provider First Name Shaquille Referring Provider Last Name Jonel Referring Provider Specialty Pain Medici ne Referred Organization [facility] [place] urosurgery Referred Provider Triny Guy Referred Address [address] ,[place],[address] Referred Provider Specialty Neurological Surgery Referral Priority Routine General Notes JohnCarly chavez 12:06:08 PM >will refer patient to Dr Guy, p2p has not been turned on yet for her at the [facility] location. I have a message sent out to IT and will send the referral as soon as it is turned on. JohnCarly chavez 08/26/2022 09:01:46 AM >still unable to transmit via p2p to Dr Guy. I am going to fax the referral to the Neurosurgery office so they have the request and can contact patient once they can begin scheduling for Dr Guy. Reason *FU 11/24 neuropsy chological eval prior to spinal cord stimulator Diagnosis 1 Other spondylosis wi th radiculopathy, lumbar region (M47.26) Referral Organization [facility] Referring Provider First Name Shaquille Referring Provider Last Name Jonel Referring Provider Specialty Pain Medici ne Referred Organization [facility] Referred Provider Shen Abbott Referred Address [address] [place],[address] Referred Provider Specialty Neuropsychia try Referral Priority Routine General Notes JohnCarly chavez 03:58:33 PM >referral request faxed to Dr [...] section and content) DATE CREATED AUTHOR 11/22/2018 [facility] DATE CREATED AUTHOR AUTHOR'S ORGANIZ ATION 11/22/2018 [facility] DATE CREATED AUTHOR AUTHOR'S ORGANIZ ATION 07/08/2021 [facility] DATE CREATED AUTHOR AUTHOR'S ORGANIZ ATION 01/04/2022 [facility] DATE CREATED AUTHOR AUTHOR'S ORGANIZ ATION 02/27/2022 [facility] dical Specialist DATE CREATED AUTHOR AUTHOR'S ORGANIZ ATION 01/01/2023 [facility] DATE CREATED AUTHOR AUTHOR'S ORGANIZ ATION 01/21/2023 [facility] DATE CREATED AUTHOR AUTHOR'S ORGANIZ ATION 01/29/2023 [facility] DATE CREATED AUTHOR AUTHOR'S ORGANIZ ATION 06/03/2023 [facility] DATE CREATED AUTHOR AUTHOR'S ORGANIZ ATION 07/20/2024 [facility] DATE CREATED AUTHOR AUTHOR'S ORGANIZ ATION 03/09/2025 [facility] DATE CREATED AUTHOR AUTHOR'S ORGANIZ ATION 05/11/2025 [facility] dical Specialists [facility] REASON FOR VISIT (unrecogniz ed section and content) Reason Comments Three-month office visit Reason Comments Hospital Follow-up [facility] 03/11/2025 Reason Comments 6 Month OV Fatigue Chest Pain Was with cardiologis t recently. They did increase BP medication. At home BP has been high. Last reading 170's/115. This morning 150's/105 Care Team (unrecognized sect ion and content) [...] 2023 Team Status: Inactive Member Role Status Ramo [...] April 18, 2024 End: April 18, 2024 Administrative Staff Supervisor Relationship Specialty Start Date End Date Katie Salguero DO [address] [place] [address] PCP - General Internal Medicine 02/15/23 Administrative Staff Supervisor Relationship Specialty Start Date End Date Katie Salguero DO [address] [place] [address] PCP - General Internal Medicine 02/15/23 Administrative Staff Supervisor Relationship Specialty Start Date End Date Katie Salguero, DO [address] [place] [address] PCP - General Internal Medicine 02/15/23 Administrative Staff Supervisor Relationship Specialty Start Date End Date Katie Salguero, DO [address] [place] [address] PCP - General Internal Medicine 02/15/23 Goals [...] BE BASED ON THE PRIMARY CLINICAL RECORDS. [facility]. provides no warranty or guarantee of the accuracy or completeness of information in this document.
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
[2025-06-08] MEDS: DIPHTH,PERTUSS(ACELL),TET VAC 0.5 ML SYRINGE IM (20:20)
[2025-06-08] MEDS: 0.9 % SODIUM CHLORIDE 1,000 ML 999 ML IV (20:21)
[2025-06-08 20:41] LABS: Hematocrit 46.1 % (42.0-54.0); Hemoglobin 15.8 g/dL (14.0-18.0); Immature Granulocytes Abs Auto 0.10 10^3/uL (0.00-0.03); Immature Granulocytes Pct Auto 0.7 % (0.0-0.5); Lymphocytes Absolute Auto 2.3 10^3/uL (1.2-3.8); Mean Corpuscular HGB Conc 34.3 g/dL (29.9-35.2); Mean Corpuscular Hemoglobin 29.2 pg (25.9-34.0); Mean Corpuscular Volume 85.2 fL (80.0-94.0); Platelet Count 386 10^3/uL (150-450); Red Blood Count 5.41 10^6/uL (4.70-6.10); White Blood Count 14.3 10^3/uL (4.0-11.0)
[2025-06-08] MEDS: FENTANYL CITRATE/PF 100 MCG/2 ML VIAL IV (20:46)
--- NOTE | 2025-06-08 20:54 | PC.NURSE ---
pain with deep inspiration
[2025-06-08 21:01] LABS: Alanine Aminotransferase 43 U/L (16-63); Albumin Globulin Ratio 1.0; Albumin Level 4.1 g/dL (3.4-5.0); Alkaline Phosphatase 118 U/L (46-116); Anion Gap 16.9; Aspartate Amino Transferase 33 U/L (15-37); Blood Urea Nitrogen 7.0 mg/dL (7.0-18.0); Calcium 9.6 mg/dL (8.5-10.1); Carbon Dioxide 25.1 mmol/L (21.0-32.0); Chloride 101 mmol/L (98-107); Estimated GFR (African America >60 (>=60 mL/min/1.73m^2); Estimated GFR (Non-African Ame >60 (>=60 mL/min/1.73m^2); Globulin 4.3 g/dL; Glucose 146 mg/dL (74-106); Lactate/Lactic Acid 2.0 mmol/L (0.4-2.0); Lipase 44.0 U/L (16.0-77.0); Potassium 4.0 mmol/L (3.5-5.1); Sodium 139 mmol/L (136-145); Total Protein 8.4 g/dL (6.4-8.2)
[2025-06-08 21:42] VITALS: BP 156/102; PULSE 93; O2SAT 94
[2025-06-08] MEDS: HYDROMORPHONE HCL 1 MG/ML CARTRIDGE IV ×2 (21:47→23:25)
[2025-06-08 23:07] VITALS: BP 167/114; PULSE 92; O2SAT 92
[2025-06-09 00:33] VITALS: BP 135/95; PULSE 92; O2SAT 92
[2025-06-09 00:38] LABS: Glucose Urine UA NEGATIVE (NEGATIVE)
[2025-06-09 00:45] LABS: Cast Seen? NONE SEEN #/LPF (NONE SEEN); Crystals Seen? None Seen #/HPF (None Seen); Urine Culture Indicated NO
[2025-06-09 00:47] LABS: Cannabinoid Screen Urine NEGATIVE (NEGATIVE); Methamphetamines Screen Urine NEGATIVE (NEGATIVE); Tricyclic Antidepressant Urine POSITIVE (NEGATIVE)
[2025-06-09 01:29] VITALS: BP 130/89; PULSE 91; O2SAT 91
[2025-06-09] MEDS: HYDROMORPHONE HCL 1 MG/ML CARTRIDGE IV (01:54)
[2025-06-09 01:59] VITALS: BP 125/93; PULSE 112; O2SAT 90
== END 2025-06-09 02:30 | disposition short-term general hospital (02) ==
PROVIDERS: Emergency Provider Internal Medicine; Family Provider Internal Medicine; PCP Internal Medicine
DX: S22.42XA Multiple fractures of ribs, left side, initial encounter for closed fracture (principal); S32.039A Unspecified fracture of third lumbar vertebra, initial encounter for closed fracture; S32.049A Unspecified fracture of fourth lumbar vertebra, initial encounter for closed fracture; S27.321A Contusion of lung, unilateral, initial encounter; Z95.5 Presence of coronary angioplasty implant and graft; F17.200 Nicotine dependence, unspecified, uncomplicated; I11.9 Hypertensive heart disease without heart failure; I43 Cardiomyopathy in diseases classified elsewhere; S01.411A Laceration without foreign body of right cheek and temporomandibular area, initial encounter; V86.59XA Driver of other special all-terrain or other off-road motor vehicle injured in nontraffic accident, initial encounter; Z23 Encounter for immunization
CPT/HCPCS: 36415; 70450; 70486; 71260; 72125; 72129; 72132; 74177; 80053; 80307; 80320; 81001; 83605; 83690; 84484; 85025; 90471; 90715; 96361; 96374; 96375; 96376; 99285; J1171; J3010; Q9967